=== PATIENT | female | born 1990 | race Hispanic/Latino ===

== ENCOUNTER 2019-09-09 12:46 | Emergency (ER) | payer SELFPAY ==
[2019-09-09 13:09] VITALS: BP 144/83; PULSE 97; RESP 16; TEMP 36.6; O2SAT 100
--- NOTE | 2019-09-09 13:25 | ED.GENADULT ---
HPI - General Adult General Chief complaint: Allergic Reaction Stated complaint: allegic reaction Time Seen by Provider: 09/09/19 13:25 Source: patient Mode of arrival: ambulatory Limitations: no limitations History of Present Illness HPI narrative: 28-year-old female patient presents to the psychiatric with complaints of what she thinks is an allergic reaction. Patient states that about an hour prior to arrival she took her medicine that included metformin and lisinopril and ate some lunch. Patient states that she ate the same ones that she had yesterday as well. Patient states that shortly afterwards she started feeling really high and feeling like she was itchy all over and she feels like her face including her lips were starting to swell. Patient states that she did take 50 mg of Benadryl prior to arrival. Patient denies any chest pain or shortness of breath. Patient denies any trouble swallowing. Patient states she does feel like the swelling has gone down since taking the Benadryl. Related Data Home Medications Medication Instructions Recorded Confirmed lisinopril 5 mg PO DAILY 09/09/19 09/09/19 metformin 500 mg PO BID 09/09/19 09/09/19 Allergies Allergy/AdvReac Type Severity Reaction Status Date / Time lisinopril Allergy Swelling Verified 09/09/19 13:39 shellfish derived Allergy Rash Verified 09/09/19 13:20 Review of Systems Review of Systems: Narrative: CONSTITUTIONAL: Denies fever, chills, or sweats. EYES: Denies visual changes, redness, or discharge. ENT: Denies rhinorrhea, congestion, sore throat, or otalgia. Positive facial swelling and lip swelling CARDIOVASCULAR: Denies chest pain, palpitations, or edema. RESPIRATORY: Denies cough or dyspnea. GASTROINTESTINAL: Denies abdominal pain, nausea, vomiting, or diarrhea. GENITOURINARY: Denies dysuria or hematuria. SKIN: Positive rash with itching. MUSCULOSKELETAL: Denies back pain, joint pain, or myalgia. NEUROLOGIC: Denies headache, numbness, or weakness. PSYCHIATRIC: Denies anxiety or depression. [facility] Social History Social History Smoking status: Never smoker Alcohol intake: never Gender identity (if verbalized by the patient): Female Comments At the time of my signature I agree with nursing past medical history, surgical, social, and family history. There is no relevant family history pertinent to the presenting complaint. Exam Narrative: Exam Narrative: GENERAL: Well-appearing, well-nourished, and in no acute distress. HEAD: Normocephalic, atraumatic. EYES: PERRLA and EOMI. ENT: Nares clear, no rhinorrhea or epistaxis. Mucous membranes moist. Posterior pharynx with no erythema, tonsillar edema, exudates or lesions present. Slight swelling noted under bilateral eyes and cheeks. Patient states that she does feel like her lips are swollen unable to tell due to the fact that not exactly sure what she would like before but is no obvious swelling. NECK: Supple. No lymphadenopathy CHEST: Clear to auscultation. No respiratory distress. Patient able talk in clear complete sentences. No tripoding noted. HEART: Regular rate and rhythm. No murmur heard. Normal peripheral pulses. ABDOMEN: Soft, nontender, nondistended, normal active bowel sounds. EXTREMITIES: Normal range of motion. No edema. SKIN: Warm, dry, no obvious rash noted to bilateral arms at this time NEURO: No focal deficits. Alert and oriented x3. Course Vital Signs Vital signs: Vital Signs Temperature 36.6 C 09/09/19 13:09 Pulse Rate 97 09/09/19 13:09 Respiratory Rate 16 09/09/19 13:09 Blood Pressure 144/83 H 09/09/19 13:09 Pulse Oximetry 100 09/09/19 13:09 Temperature 36.6 C 09/09/19 13:09 Pulse Rate 97 09/09/19 13:09 Respiratory Rate 16 09/09/19 13:09 Blood Pressure 144/83 H 09/09/19 13:09 Pulse Oximetry 100 09/09/19 13:09 Vital signs reviewed. The patient has been informed that they may h
== END 2019-09-09 13:35 | disposition home or self-care (01) ==
PROVIDERS: Emergency Provider Nurse Practitioner Family; PCP Registered Nurse
DX: T78.3XXA Angioneurotic edema, initial encounter (principal); I10 Essential (primary) hypertension; E11.9 Type 2 diabetes mellitus without complications; Z79.84 Long term (current) use of oral hypoglycemic drugs
CPT/HCPCS: 99213; G0463

== ENCOUNTER 2019-11-06 11:38 | Emergency (ER) | payer BC, SELFPAY ==
--- NOTE | ~2019-11-06 | US_ITS ---
EXAMINATION: US OB <=14 wk fetus w TV DATE: 11/06/2019 14:38 INDICATION: Vaginal bleeding. . TECHNIQUE: Real-time transabdominal and transvaginal pelvic ultrasound was performed. COMPARISON: None. FINDINGS: TRANSABDOMINAL ULTRASOUND: The uterus measures 7.8 x 5.4 x 6.6 cm. TRANSVAGINAL ULTRASOUND: There is an intrauterine gestational sac. A yolk sac is identified. The fet al crown rump length measures 1.1 cm, which correlates with an estimated gestational age of 7 weeks a nd 1 day(s) (+/-) 5 day(s). heart motion is identified measuring 149 beats per minute (bpm) by M-mode Doppler. The right ovary measures 2.8 x 2.4 x 2.5 cm. The left ovary measures 3.7 x 2.1 x 3.7 cm. There is no free fluid in the pelvis. IMPRESSION: 1. Single living intrauterine gestation with estimated date of delivery of 06/23/2020. Reviewed, dictated and finalized at location A. IMPRESSION: 1. Single living intrauterine gestation with estimated date of delivery of 06/23.
[2019-11-06 11:54] VITALS: BP 152/103; PULSE 98; RESP 20; TEMP 37; O2SAT 99
[2019-11-06 12:08] LABS: Basophils Percent Auto 0.2 % (0.2-1.2); Eosinophils Absolute Auto 0.1 K/mm3 (0-0.3); Eosinophils Percent Auto 1.1 % (0-4.4); Hematocrit 38.6 % (37.0-47.0); Hemoglobin 12.9 g/dL (12.0-15.0); Immature Granulocyte Absolute 0.05 K/mm3 (0.00-0.031); Immature Granulocyte Percent A 0.4 % (0-0.5); Lymphocytes Absolute Auto 3.54 K/mm3 (0.9-3.2); Lymphocytes Percent Auto 31.1 % (18.3-44.2); Mean Corpuscular HGB Conc 33.4 g/dl (32-36); Mean Corpuscular Hemoglobin 28.2 pg (26-34); Mean Corpuscular Volume 84.5 fl (80-100); Mean Platelet Volume 10.3 fl (7.4-10.4); Monocytes Absolute Auto 0.7 K/mm3 (0.1-0.6); Neutrophils Percent Auto 61.2 % (45.5-73.1); Platelet Count Result 376 k/mm3 (150-375); Red Blood Count 4.57 M/mm3 (4.2-5.4); Red Cell Distribution Width 13.4 % (11.5-14.5); White Blood Count 11.4 K/mm3 (4.5-10.0)
[2019-11-06 13:32] VITALS: BP 116/74; PULSE 71; RESP 18; O2SAT 100
[2019-11-06 13:55] LABS: Add Urine Microscopic? YES; Appearance Urine Clear (Clear); Bilirubin Urine Negative (Negative); Blood Urine Negative (Negative); Color Urine Yellow (Yellow); Glucose Urine UA Negative (Negative); Ketones Urine Trace mg/dL (Negative); Leukocyte Esterase Ur Negative LEU/UL (Negative); Mucus Urine Few /lpf; Nitrate Urine Negative (Negative); Protein Urine Negative (Negative); Squamous Epithelial Cell Urine Many /hpf (Few); Urobilinogen Urine Negative mg/dL (<2.0); WBC Urine 0-3 /hpf
--- NOTE | 2019-11-06 14:11 | ED.FEMALEGU ---
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 Patient complaining of soreness across lower abdomen for 10 days. Patient found out that she is 5 days ago. 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 Patient denies any nausea, vomiting, fever, chills, coughing, back pain or urinary symptoms. Patient is 1, para 0, 0. <Vasyl Morris MD - Last Filed: 11/06/19 16:18> Related Data Home medications: Home Medications Medication Instructions Recorded Confirmed metformin 2,000 mg PO DAILY 09/09/19 09/09/19 <Vasyl Morris MD - Last Filed: 11/06/19 16:18> Allergies/Adverse reactions: Allergies Allergy/AdvReac Type Severity Reaction Status Date / Time lisinopril Allergy Swelling Verified 11/06/19 11:56 shellfish derived Allergy Rash Verified 11/06/19 11:56 <Vasyl Morris MD - Last Filed: 11/06/19 16:18> Review of Systems Review of Systems: Narrative: CONSTITUTIONAL: Denies fever, chills, or sweats. EYES: Denies visual changes, redness, or discharge. ENT: Denies rhinorrhea, congestion, sore throat, or otalgia. CARDIOVASCULAR: Denies chest pain, palpitations, or edema. RESPIRATORY: Denies cough or dyspnea. GASTROINTESTINAL: Denies abdominal pain, nausea, vomiting, or diarrhea. GENITOURINARY: Denies dysuria or hematuria. SKIN: Denies rash or itching. MUSCULOSKELETAL: Denies back pain, joint pain, or myalgia. NEUROLOGIC: Denies headache, numbness, or weakness. PSYCHIATRIC: Denies anxiety or depression. <Vasyl Morris MD - Last Filed: 11/06/19 16:18> PMFSH Social History Social History: Social History Smoking status: Never smoker Alcohol intake: never Gender identity (if verbalized by the patient): Female <Vasyl Morris MD - Last Filed: 11/06/19 16:18> Exam Narrative: Exam Narrative: General appearance: Well-developed, well-nourished Skin: Normal color Head: Normocephalic, nontraumatic Eyes: Clear conjunctiva ENT: Oropharynx normal, ears normal, nose normal Neck: Supple, nontender Chest and respiratory: Airway patent, no respiratory distress, no accessory muscle use Heart: Regular rate/rhythm Abdomen: Soft, nontender, no organomegaly, quiet bowel sounds Vascular: Normal peripheral pulses, normal capillary refill. Musculoskeletal: Normal range of motion, nontender back Neurologic: Alert and oriented ?3, OPERATIONS TEAM LEADER is normal as tested, no gross motor deficit <Vasyl Morris MD - Last Filed: 11/06/19 16:18> Exam Narrative: PELVIC: Normal external genitalia. Normal-appearing cervix. Scant amount of white cervical discharge. No blood noted in the vaginal vault <Rolanda Campbell PA-C - Last Filed: 11/06/19 16:19> Course Course Emergency Course: Stable <Vasyl Morris MD - Last Filed: 11/06/19 16:18> Vital Signs Vital signs: Vital Signs Temperature 98.6 F 11/06/19 11:54 Pulse Rate 98 11/06/19 11:54 Respiratory Rate 11/06/19 11:54 Blood Pressure 152/103 H 11/06/19 11:54 Pulse Oximetry 99 11/06/19 11:54 Temperature 98.6 F 11/06/19 11:54 Pulse Rate 71 11/06/19 13:32 Respiratory Rate 18 11/06/19 13:32 Blood Pressure 116/74
[2019-11-06 16:35] VITALS: BP 112/80; PULSE 76; RESP 18; O2SAT 100
== END 2019-11-06 16:37 | disposition home or self-care (01) ==
PROVIDERS: General Practice; Physician Assistant; Emergency Provider Emergency Medicine; PCP Registered Nurse
DX: O20.0 Threatened abortion (principal); Z3A.01 Less than 8 weeks gestation of pregnancy
CPT/HCPCS: 36415; 76801; 76817; 81001; 84702; 85025; 85461; 99284

== ENCOUNTER 2020-04-30 18:46 | Outpatient (CLI) | payer BC, SELFPAY ==
[2020-04-30] VITALS (7 sets, daily range): BP systolic 107–126; BP diastolic 55–87; PULSE 87–104; BMI 44.6
[2020-04-30] MEDS: ACETAMINOPHEN 500 MG TABLET 1000 MG PO (19:52)
[2020-04-30 19:59] LABS: Basophils Percent Auto 0.2 % (0.2-1.2); Eosinophils Absolute Auto 0.1 K/mm3 (0-0.3); Eosinophils Percent Auto 0.6 % (0-4.4); Hematocrit 35.7 % (37.0-47.0); Hemoglobin 11.7 g/dL (12.0-15.0); Immature Granulocyte Absolute 0.08 K/mm3 (0.00-0.031); Immature Granulocyte Percent A 0.7 % (0-0.5); Lymphocytes Absolute Auto 3.11 K/mm3 (0.9-3.2); Lymphocytes Percent Auto 26.7 % (18.3-44.2); Mean Corpuscular HGB Conc 32.8 g/dl (32-36); Mean Corpuscular Hemoglobin 27.1 pg (26-34); Mean Corpuscular Volume 82.8 fl (80-100); Mean Platelet Volume 10.6 fl (7.4-10.4); Monocytes Absolute Auto 0.5 K/mm3 (0.1-0.6); Monocytes Percent Auto 4.6 % (2.6-8.5); Neutrophils Absolute Auto 7.8 K/mm3 (1.3-6.7); Neutrophils Percent Auto 67.2 % (45.5-73.1); Platelet Count Result 348 k/mm3 (150-375); Red Blood Count 4.31 M/mm3 (4.2-5.4); White Blood Count 11.7 K/mm3 (4.5-10.0)
[2020-04-30 20:07] LABS: Total Protein Urine Random 15 mg/dL; Ur Ttl Prot Creatinine Ratio 0.18 mg/mg (0-0.20)
[2020-04-30 20:10] LABS: Alanine Aminotransferase 35 U/L (4-35); Albumin Level 3.5 g/dL (3.5-5.1); Alkaline Phosphatase 95 U/L (38-126); Anion Gap 8 mmol/L (8-16); Aspartate Amino Transferase 25 U/L (14-36); Bilirubin,Total 0.3 mg/dL (0.2-1.3); Blood Urea Nitrogen 13 mg/dL (7-17); Calcium 8.8 mg/dL (8.4-10.2); Carbon Dioxide 21 mmol/L (22-30); Chloride 106 mmol/L (98-107); Estimated Glomerular Filt Rate > 60; Glucose 131 mg/dL (65-105); Potassium 3.7 mmol/L (3.4-5.0); Sodium 135 mmol/L (137-145); Uric Acid 4.2 mg/dL (2.5-7.5)
[2020-04-30 20:13] LABS: Add Urine Microscopic? YES; Appearance Urine Clear (Clear); Bacteria Urine Trace /hpf; Bilirubin Urine Negative (Negative); Blood Urine Negative (Negative); Color Urine Yellow (Yellow); Glucose Urine UA Negative (Negative); Ketones Urine Negative (Negative); Leukocyte Esterase Ur Negative LEU/UL (NEGATIVE); Mucus Urine Rare /lpf; Nitrate Urine Negative (Negative); Protein Urine 1+ mg/dL (Negative); Specific Grav Ur 1.024 (1.001-1.035); Squamous Epithelial Cell Urine Moderate /hpf (Few); Urobilinogen Urine Negative mg/dL (<2.0); WBC Urine 0-3 /hpf (0-3)
== END 2020-04-30 20:50 | disposition home or self-care (01) ==
LOC: ANHOBPP 20:16 → ANHOBOP 05-01 10:17 → ANHOBPP 05-01 10:17
PROVIDERS: Advanced Practice Midwife; PCP Registered Nurse; Visit Provider Obstetrics & Gynecology
DX: R51.9 Headache, unspecified (principal); Z51.81 Encounter for therapeutic drug level monitoring; Z79.899 Other long term (current) drug therapy
CPT/HCPCS: 36415; 80053; 81001; 82570; 84156; 84550; 85025; 87086; 87088; 99199; A9270

== ENCOUNTER 2020-05-21 13:42 | Outpatient (RCR) | payer BC, SELFPAY ==
--- NOTE | ~2020-05-21 | US_ITS ---
EXAMINATION: US OB BPP wo non-stress DATE: 05/16/2020 15:39 INDICATION: Nonreactive nonstress test in office evaluation during third trimester of . TECHNIQUE: Real-time pelvic ultrasound was performed. The interpreting radiologist was not present fo r the study. COMPARISON: 11/06/2019 FINDINGS: There is a single living fetus in vertex presentation. The placenta is fundal. heart rate is 1 38 beats per minute (bpm). Biophysical profile performed by the technologist: breathing (30 sec sustained breathing in 30 minutes): 2 out of 2 movement (3 gross body movements in 30 minutes): 2 out of 2 tone (one episode of ypcjwei-yrsvudphh-vklhuwi limb movement): 2 out of 2 Amniotic fluid pocket (2 cm): 2 out of 2 Total score: 8 out of 8 IMPRESSION: 1. Single living fetus in vertex presentation with heart rate of 138 bpm. 2. Biophysical profile 8 out of 8. Reviewed, dictated and finalized at location B. NG MECHANIC
[2020-05-21 14:24] VITALS: BP 118/75; PULSE 84
== END 2020-05-25 07:43 | disposition home or self-care (01) ==
LOC: ANHOBOP 13:42
PROVIDERS: PCP Registered Nurse; Visit Provider Obstetrics & Gynecology
DX: O36.8130 Decreased fetal movements, third trimester, not applicable or unspecified (principal); Z3A.35 35 weeks gestation of pregnancy; Z3A.36 36 weeks gestation of pregnancy
CPT/HCPCS: 59025; 76819

== ENCOUNTER 2020-05-22 12:39 | Observation (INO) | payer BC, SELFPAY ==
--- NOTE | ~2020-05-22 | US_ITS ---
EXAMINATION: US OB BPP wo non-stress EXAM DATE: 05/22/2020 16:03 INDICATION: Decelerations in doctor's office. 3rd trimester. TECHNIQUE: Pelvic obstetrical transabdominal sonogram was performed by a technologist. There are mu ltiple grayscale and Doppler images available for interpretation. Comparison is made to prior examina tion from 05/16/2020. FINDINGS: There is a single fetus identified in vertex presentation with a heart rate of 139 beats pe r minute. The placenta is located in the fundal position. There is no sonographic evidence of retrop lacental hemorrhage identified. There is subjectively expected amount of amniotic fluid. BIOPHYSICAL PROFILE (performed by the technologist) breathing (30 sec sustained breathing in 30 minutes): 2 out of 2 movement (3 gross body movements in 30 minutes): 2 out of 2 tone (one episode of wucwxlo-cenmzgqcc-mbvvppx limb movement): 2 out of 2 Amniotic fluid pocket (2 cm): 2 out of 2 Total score: 8 out of 8 Incidental note made of mildly dilated bilateral renal pelvi, at 4 and 6 mm. IMPRESSION: 1. Single fetus with heart rate of 139 bpm. 2. Normal biophysical profile score of 8 out of 8. 3. Mild bilateral renal pelvi dilation. Reviewed, dictated and finalized at location B. BIT DISPLAY REPRESENTATIVE
--- NOTE | 2020-05-22 12:57 | OBADM ---
This patient, Yasmeen Ny, admitted to the OB room OB Post 115 for observation. Patient/family oriented to hospital policies and general routines including ID bracelet, bed and alarms, visiting hours, pain management, procedures, bathroom and other care routines, personal items, smoking policy, room service/diet, and visiting hours. Patient/Family are encouraged to report perceived risks to care and to ask questions if they do not understand what they are told or what they should do.
[2020-05-22 13:02] VITALS: BP 120/64; PULSE 90
[2020-05-22 13:09] VITALS: BMI 46.5
--- NOTE | 2020-05-22 13:59 | PC.NURSE ---
1353- Spoke with Dr. Deninson, patient requesting to eat. Ok with Dr. Dennison for patient to eat lunch now. Will continue to monitor for 2 more hours and then send patient for BPP. Dr. Dennison will be in to see patient later this afternoon.
--- NOTE | 2020-05-22 16:43 | P.HP_ITS ---
Obstetrics - Admit Note Admission Note: record reviewed. No pertinent additions to the history and/or any subsequent changes in the physical findings that are not consistent with the expected course of the were found. Additions to the history and/or subsequent changes in the physical findings follow. G1 with DM2 at 35.6 admitted for extended monitoring after two small decels in the office and a BPP 09/25. Here for several hours now, NST 130 mod with many accels, no decels. Repeat BPP 11/25. ASpoke with MFM earlier today. SInce all monitoring now perfect and still , home with strict precautions. Pt has follow up with MFM at [facility] tomorrow and will do kick counts at least 2x/day and return for ANY decreased movement.
== END 2020-05-22 16:50 | disposition home or self-care (01) ==
PROVIDERS: Admitting Provider Obstetrics & Gynecology; PCP Registered Nurse; Visit Provider Obstetrics & Gynecology
DX: O36.8330 Maternal care for abnormalities of the fetal heart rate or rhythm, third trimester, not applicable or unspecified (principal); O24.913 Unspecified diabetes mellitus in pregnancy, third trimester; Z3A.35 35 weeks gestation of pregnancy
CPT/HCPCS: 76819; G0378; G0379

== ENCOUNTER 2020-05-23 12:40 | Inpatient (IN) | payer BC, SELFPAY ==
[2020-05-23] VITALS (14 sets, daily range): BP systolic 97–133; BP diastolic 31–78; PULSE 86–96; TEMP 36.4–36.9; BMI 47.2
[2020-05-23 13:37] LABS: Glucose Point of Care 101 (65-105)
[2020-05-23 13:42] LABS: Basophils Percent Auto 0.2 % (0.2-1.2); Eosinophils Absolute Auto 0.1 K/mm3 (0-0.3); Eosinophils Percent Auto 0.5 % (0-4.4); Hematocrit 36.7 % (37.0-47.0); Immature Granulocyte Absolute 0.06 K/mm3 (0.00-0.031); Immature Granulocyte Percent A 0.5 % (0-0.5); Lymphocytes Percent Auto 25.6 % (18.3-44.2); Mean Corpuscular HGB Conc 32.7 g/dl (32-36); Mean Corpuscular Hemoglobin 27.1 pg (26-34); Mean Platelet Volume 10.4 fl (7.4-10.4); Monocytes Absolute Auto 0.6 K/mm3 (0.1-0.6); Monocytes Percent Auto 5.2 % (2.6-8.5); Neutrophils Absolute Auto 7.7 K/mm3 (1.3-6.7); Platelet Count Result 347 k/mm3 (150-375); Red Blood Count 4.42 M/mm3 (4.2-5.4); Red Cell Distribution Width 14.6 % (11.5-14.5); White Blood Count 11.3 K/mm3 (4.5-10.0)
[2020-05-23] MEDS: DINOPROSTONE 10 MG VAG INSERT VAGINAL (13:44)
--- NOTE | 2020-05-23 13:57 | LDADM ---
This patient, Yasmeen Ny, was admitted to Labor/Delivery/Recovery 108 on 05/23/20 at 12:40. Plans for labor, pain management and were discussed with patient. Patient/family oriented to hospital policies and general routines including ID bracelet, bed and alarms, visiting hours, pain management, procedures, bathroom and other care routines, personal items, smoking policy, room service/diet and guest tray routines, security routines, and visiting hours. Patient/Family are encouraged to report perceived risks to care and to ask questions if they do not understand what they are told or what they should do. See OBIX for further documentation.
[2020-05-23] MEDS: AMPICILLIN 2 GM/NS 100 ML 2 GM/100 ML BAG IVPB (14:17)
[2020-05-23] MEDS: LACTATED RINGERS 1,000 ML 125 ML IV CONT (14:17)
[2020-05-23 17:21] LABS: Amphetamine Screen Urine Negative (Negative); Barbiturate Screen Urine Negative (Negative); Benzodiazepines Screen Urine Negative (Negative); Cannabinoid Screen Urine Negative (Negative); Cocaine Screen Urine Negative (Negative); Methadone Screen Urine Negative (Negative); Opiate Screen Urine Negative (Negative); Phencyclidine Screen Urine Negative (Negative)
[2020-05-23 17:49] LABS: Glucose Point of Care 142 (65-105)
--- NOTE | 2020-05-23 18:18 | PM.IMHP ---
H&P: HPI History of Present Illness Date/Time: 05/23/20 18:18 Chief Complaint: MIL Narrative: Yasmeen Ny is a 29 year old female at 36 weeks gestation, complicated by uncontrolled type 2 diabetes, Seeing [facility] regularly. had had episodes of non reactive NST and variable decelerations. Dr. Dennison spoke to [facility] today who rec delivery today. last growth us on 04/16/2020 efw HC 87%, AC 95%,GbS not back from lab, will tx with antibiotics. Cervadil placed by solder technician of Systems Review of Systems: All systems reviewed & are unremarkable except as noted in HPI and below PMFSH Family History Family History (Updated 05/18/20 @ 13:02 by Harry Patiño RN) Father High cholesterol Social History Social History Smoking status: Never smoker Alcohol intake: never Substance use: never Gender identity (if verbalized by the patient): Female Spiritual care concerns: No Meds Home Medications and Allergies Home Medications Medication Instructions Recorded Confirmed Type Humulin N NPH U-100 Insulin See Rx Instructions .ROUTE .COMPLEX 04/30/20 05/23/20 History insulin lispro See Rx Instructions .ROUTE .COMPLEX 04/30/20 05/23/20 History PNV cmb#95-ferrous fumarate-FA 1 tablet PO DAILY 05/18/20 05/23/20 History [] aspirin 81 mg PO DAILY 05/18/20 05/23/20 History Allergies Allergy/AdvReac Type Severity Reaction Status Date / Time lisinopril Allergy Swelling Verified 11/06/19 11:56 shellfish derived Allergy Rash Verified 11/06/19 11:56 Vital Signs Vital Signs - 24 hr 05/23/20 13:45 05/23/20 14:10 05/23/20 14:15 Temperature 36.7 C Pulse Rate 96 89 Blood Pressure 120/66 105/49 L 05/23/20 15:00 05/23/20 15:44 05/23/20 16:00 Temperature 36.9 C Pulse Rate 96 94 Blood Pressure 99/54 L 100/49 L 05/23/20 17:00 05/23/20 18:01 Temperature Pulse Rate 86 95 Blood Pressure 128/66 128/77 Exam Const: General: cooperative Nutritional Appearance: well nourished HENMT: Head: normal to inspection Resp: Effort & Inspection: normal respiratory effort Auscultation: clear to auscultation bilaterally GI: Inspection: normal to inspection : External Female Exam: normal external appearance Back/Spine/Pelvis: Back: no CVA tenderness Skin: General skin exam: normal color Neuro: General: oriented to person and patient oriented x3 Psych: Thought content: Yes Normal thought content present Insight: Good insight present (Psych) Judgement: Good judgement present (Psych) H&P: Results Labs Labs: Short CBC 05/23/20 Range/Units 13:31 WBC 11.3 H (4.5-10.0) K/mm3 Hgb 12.0 (12.0-15.0) g/dL Hct 36.7 L (37.0-47.0) % Plt Count 347 (150-375) k/mm3 Assessment and Plan Assessment and plan (1) Type 2 diabetes mellitus affecting in third trimester, antepartum: Code(s): O24.113 - Pre-existing type 2 diabetes mellitus, in , third trimester Status: Acute Additional Plan 1. 2.MIL for uncontrolled type 2 diabtes anticipate vaginal delivery
[2020-05-23] MEDS: AMPICILLIN 1 GM/NS 50 ML 1 GM/50 ML BAG IVPB ×2 (19:02→22:57)
[2020-05-23 20:49] LABS: Glucose Point of Care 96 (65-105)
[2020-05-23] MEDS: INSULIN HUMAN NPH (*BKC) 100 UNITS/ML 88 UNITS SUB-Q (21:23)
[2020-05-24] VITALS (266 sets, daily range): BP systolic 88–160; BP diastolic 41–116; PULSE 63–104; TEMP 36.4–37.4; O2SAT 95–100
[2020-05-24] MEDS: fentaNYL CITRATE INJ (*CRX) 100 MCG/2 ML VIAL 50 MCG IV PUSH ×2 (00:17→04:00)
[2020-05-24 02:10] LABS: Glucose Point of Care 87 (65-105)
[2020-05-24] MEDS: AMPICILLIN 1 GM/NS 50 ML 1 GM/50 ML BAG IVPB ×6 (02:58→22:39)
[2020-05-24 04:08] LABS: Glucose Point of Care 142 (65-105)
[2020-05-24] MEDS: OXYTOCIN 30 UNITS/NS 500 ML 30 UNITS/500 ML BAG 6 UNITS IV CONT (04:20)
[2020-05-24] MEDS: fentaNYL CITRATE INJ (*CRX) 100 MCG/2 ML VIAL IV PUSH ×3 (05:29→09:02)
[2020-05-24] MEDS: LACTATED RINGERS 1,000 ML 125 ML IV CONT ×3 (05:29→21:35)
[2020-05-24 05:59] LABS: Glucose Point of Care 87 (65-105)
--- NOTE | 2020-05-24 08:19 | PM.OBPNLAB ---
Pain Control Date/time seen: 05/24/20 08:19 Pt feeling contractions Contractions irregular FHR category 1 Cervix 2 internal 3 external/50%/-2 AROM small amount of clear odorless fluid Epidural when desired Anticipate
[2020-05-24] MEDS: LACTATED RINGERS 1,000 ML 999 ML IV CONT ×2 (09:04→10:08)
[2020-05-24 09:11] LABS: Glucose Point of Care 91 (65-105)
--- NOTE | 2020-05-24 09:48 | WPDANESEPP ---
Anes - Eval Pre Procedure Procedure: labor epidural Date/Time: 05/24/20 09:48 Surgeon: Fay Preop Diagnosis: pain during labor Pre Op Diagnosis: Induction of Labor Patient Data Age: 29 Gender: F Height: 5 ft 4 in Weight: 125 kg Last Vital Signs Temp 36.4 C 05/24/20 08:17 Pulse 85 05/24/20 09:45 BP 129/61 05/24/20 09:45 Pulse Ox 99 05/24/20 09:45 Allergies Allergy/AdvReac Type Severity Reaction Status Date / Time lisinopril Allergy Swelling Verified 11/06/19 11:56 shellfish derived Allergy Rash Verified 11/06/19 11:56 Home Medications Medication Instructions Recorded Confirmed Type Humulin N NPH U-100 Insulin See Rx Instructions .ROUTE .COMPLEX 04/30/20 05/23/20 History insulin lispro See Rx Instructions .ROUTE .COMPLEX 04/30/20 05/23/20 History PNV cmb#95-ferrous fumarate-FA 1 tablet PO DAILY 05/18/20 05/23/20 History [] aspirin 81 mg PO DAILY 05/18/20 05/23/20 History Laboratory Tests 05/23/20 05/23/20 05/23/20 13:31 13:31 13:31 WBC 11.3 K/mm3 H K/mm3 (4.5-10.0) RBC 4.42 M/mm3 M/mm3 (4.2-5.4) Hgb 12.0 g/dL g/dL (12.0-15.0) Hct 36.7 % L % (37.0-47.0) MCV 83.0 fl fl (80-100) MCH 27.1 pg pg (26-34) MCHC 32.7 g/dl g/dl (32-36) RDW 14.6 % H % (11.5-14.5) Plt Count 347 k/mm3 k/mm3 (150-375) MPV 10.4 fl fl (7.4-10.4) Immature Gran % (Auto) 0.5 % % (0-0.5) Neut % (Auto) 68.0 % % (45.5-73.1) Lymph % (Auto) 25.6 % % (18.3-44.2) Kane % (Auto) 5.2 % % (2.6-8.5) Eos % (Auto) 0.5 % % (0-4.4) Baso % (Auto) 0.2 % % (0.2-1.2) Lymph # (Auto) 2.90 K/mm3 K/mm3 (0.9-3.2) Kane # (Auto) 0.6 K/mm3 K/mm3 (0.1-0.6) Eos # (Auto) 0.1 K/mm3 K/mm3 (0-0.3) Baso # (Auto) 0.0 K/mm3 K/mm3 (0.0-0.1) Abs Immat Gran (auto) 0.06 K/mm3 H K/mm3 (0.00-0.031) Absolute Neuts (auto) 7.7 K/mm3 H K/mm3 (1.3-6.7) Absolute Nucleated RBC 0.0 K/mm3 K/mm3 (0.0-0.012) Nucleated RBC % 0.0 % % (0.0-0.2) POC Capillary Glucose Urine Opiates Screen Urine Methadone Screen Ur Barbiturates Screen Ur Phencyclidine Scrn Ur Amphetamine Screen U Benzodiazepines Scrn Urine Cocaine Screen U Cannabinoids Screen RPR Pending Blood Type A Positive Antibody Screen Negative 05/23/20 05/23/20 05/23/20 13:34 16:58 17:46 WBC RBC Hgb Hct MCV MCH MCHC RDW Plt Count MPV Immature Gran % (Auto) Neut % (Auto) Lymph % (Auto) Kane % (Auto) Eos % (Auto) Baso % (Auto) Lymph # (Auto) Kane # (Auto) Eos # (Auto) Baso # (Auto) Abs Immat Gran (auto) Absolute Neuts (auto) Absolute Nucleated RBC Nucleated RBC % POC Capillary Glucose 101 mg/dl mg/dl 142 mg/dl H mg/dl (65-105) (65-105) Urine Opiates Screen Negative (Negative) Urine Methadone Screen Negative (Negative) Ur Barbiturates Screen Negative (Negative) Ur Phencyclidine Scrn Negative (Negative) Ur Amphetamine Screen Negative (Negative) U Benzodiazepines Scrn Negative (Negative) Urine Cocaine Screen Negative (Negative) U Cannabinoids Screen Negative (Negative) RPR Blood Type Antibody Screen 05/23/20 05/24/20 05/24/20 20:42 02:04 04:05 WBC RBC Hgb Hct MCV MCH
[2020-05-24 10:09] LABS: Rapid Plasma Reagin Non-Reactive (NonReactive)
[2020-05-24 10:13] LABS: Glucose Point of Care 94 (65-105)
[2020-05-24 13:31] LABS: Glucose Point of Care 73 (65-105)
[2020-05-24 16:09] LABS: Glucose Point of Care 72 (65-105)
[2020-05-24] MEDS: ONDANSETRON INJ 4 MG/2 ML VIAL IV PUSH (17:58)
[2020-05-24 18:04] LABS: Glucose Point of Care 78 (65-105)
[2020-05-24 20:22] LABS: Glucose Point of Care 79 (65-105)
[2020-05-24 22:30] LABS: Glucose Point of Care 82 (65-105)
[2020-05-25] VITALS (74 sets, daily range): BP systolic 102–134; BP diastolic 54–92; PULSE 66–125; RESP 16–18; TEMP 36.6–37.3; O2SAT 96–100
[2020-05-25 00:19] LABS: Glucose Point of Care 76 (65-105)
[2020-05-25 02:16] LABS: Glucose Point of Care 78 (65-105)
--- NOTE | 2020-05-25 02:50 | PM.OBPRVD ---
OB - Delivery Note Procedure Delivery date: 05/25/20 Procedure: events: Gestational Diabetes and Labor Induction Intrapartal events: None Induction method: AROM and per pitocin protocol Delivery monitor: external FHT and internal uterine Route of delivery: Episiotomy description: None Laceration Description: Perineal - 2nd Degree Delivery repair: vicryl Specimen: Yes Quantitative Blood Loss (ml): 350 Anesthesia type: Epidural Disposition: floor [place] Baby Date of : 05/25/20 Time of : 02:36 Weeks of gestation at delivery: 36 gender: Male Weight (pounds): 7 presentation: vertex position: Left Occiput Anterior score one minute: 8 score five minutes: 9
[2020-05-25] MEDS: OXYTOCIN 30 UNITS/NS 500 ML 30 UNITS/500 ML BAG 125 UNITS IV CONT (02:55)
[2020-05-25] MEDS: IBUPROFEN 600 MG TABLET PO ×4 (04:16→23:20)
[2020-05-25] MEDS: WITCH HAZEL 40 PADS 1 PAD TOPICAL (04:55)
[2020-05-25] MEDS: BENZOCAINE 20% AER SPR (*SP) 56 GM CAN 1 SPRAY TOPICAL (04:55)
--- NOTE | 2020-05-25 05:52 | OBPPTRN ---
Patient transferred to post room # 278 via wheelchair. Support person present. Oriented to unit, room, information board, rooming in, admission packet and security measures. Patient verbalizes understanding.
[2020-05-25] MEDS: ACETAMINOPHEN 325 MG TABLET 650 MG PO ×2 (09:00→17:45)
[2020-05-25] MEDS: MULTIVIT/MIN/PREN/FOL AC/IRON TABLET 1 TAB PO (09:00)
[2020-05-25 09:41] LABS: Glucose Point of Care 85 (65-105)
--- NOTE | 2020-05-25 10:37 | PC.NURSE ---
Addendum entered by Kayli Cervantes RN 05/25/20 14:39: Mother reports she has ordered her pump from her Insurance Co[employer] [facility], and it has been sent . She was advised she can rent a pump from the Station if necessary, when she and baby are discharged home, until what time she has her pump from her Insurance Co. Original Note: 1000 Breast feeding note; baby 36 weeks; two breast feeding attempts since ineffective. Worked with mother at 0915 feeding; baby made some attempt to latch, but could not latch and maintain for effective breast feeding. Started feeding plan of attempt breast feeding, bottle feeding at least 15cc-20cc, and mother will pump; set up with pump; mother comfortable with 24mm flanges; reviewed set up and use of initiation phase, pumping for 15 minutes; Reviewed care of equipment. Mother to call her Insurance company [employer], today to advise them she has delivered. Mother attentive to all instructions, and in agreement with the feeding plan. Encouraged to call out for assistance at feedings. she agreed, and voiced understanding.
[2020-05-25 12:21] LABS: Glucose Point of Care 192 (65-105)
[2020-05-25] MEDS: metFORMIN HCL 500 MG TABLET PO ×2 (13:19→21:00)
[2020-05-25 15:36] LABS: Glucose Point of Care 151 (65-105)
[2020-05-26] MEDS: ACETAMINOPHEN 325 MG TABLET 650 MG PO (03:25)
[2020-05-26 03:32] LABS: Hematocrit 30.1 % (37.0-47.0); Hemoglobin 9.8 g/dL (12.0-15.0)
[2020-05-26] MEDS: POLYSACCHARIDE IRON COMPLEX 150 MG CAPSULE PO (07:25)
[2020-05-26] MEDS: MULTIVIT/MIN/PREN/FOL AC/IRON TABLET 1 TAB PO (07:25)
[2020-05-26] MEDS: IBUPROFEN 600 MG TABLET PO (07:26)
[2020-05-26] MEDS: DOCUSATE SODIUM 100 MG CAPSULE PO (07:26)
[2020-05-26] MEDS: metFORMIN HCL 500 MG TABLET PO (07:26)
[2020-05-26 07:35] VITALS: BP 123/82; PULSE 76; RESP 18; TEMP 36.4; O2SAT 98
--- NOTE | 2020-05-26 08:19 | P.PNOB_ITS ---
OB - PN: Subj Subjective Date/time seen: 05/26/20 08:19 Patient comments: no complaints baby status: doing well OB - PN: Obj Data Labs CBC & Chem 7: 05/26/20 03:19 Labs: Laboratory Results - last 24 hr 05/25/20 05/25/20 05/25/20 09:34 12:18 15:31 Hgb Hct POC Capillary Glucose 85 192 H 151 H 05/26/20 03:19 Hgb 9.8 L Hct 30.1 L POC Capillary Glucose OB - PN A/P Plan day: 1 Plan: routine care Time Spent With Patient Time: Total time spent is greater than 50% in coordination of care (as documented) at patient's floor/unit and/or counseling patient: Time with patient: less than 15 minutes Review of Systems Review of Systems: All systems reviewed & are unremarkable except as noted in HPI and below Exam Narrative: Exam Narrative: Fundus firm and vaginal flow controlled. No lower ext redness, warmth, or edema. Negative homans. Const: General: comfortable Chest: Breast/axilla inspection: normal inspection of the breasts Resp: Effort & Inspection: normal respiratory effort Cardio: Rate: regular rate GI: GI Palp: Yes Soft to palpation Psych: Appearance: grossly normal Affect: normal affect Attitude: co operative Thought content: Yes Normal thought content present Judgement: Good judgement present (Psych)
--- NOTE | 2020-05-26 08:38 | WPDANLDPN2 ---
Anes-Prog Note L&D Date/Time: 05/26/20 08:38 Comfortable throughout: labor Neuraxial method: epidural Epidural/Spinal procedure site: clean & non-tender Neuro status: Neuro function grossly intact. Cardiovascular status: normal Respiratory status: normal Airway patency: baseline Mental status: baseline Post-Op hydration status: normal Vital Signs: Last Vital Signs Temp 36.7 C 05/25/20 19:37 Pulse 81 05/25/20 19:37 Resp 16 05/25/20 19:37 BP 108/78 05/25/20 19:37 Pulse Ox 100 05/25/20 08:40 Pain score (VAS): no complaints Post-procedural complaints: none Patient feedback: Patient satisfied with anesthetic care.
--- NOTE | 2020-05-26 15:58 | PC.NURSE ---
Fasting blood sugar this morning, 96 per pts. device. Blood sugar prior to lunch 101 per patients device.
[2020-05-28 10:28] VITALS: BP 139/77; PULSE 85; RESP 20; TEMP 36.4; O2SAT 100
--- NOTE | 2020-05-30 08:08 | PM.OBDSVD ---
DS: Admitting Diagnosis Admitting Diagnosis Admitting Diagnosis: Induction OB - DS: Summary OB Procedures : None OB Procedures Intrapartum: Spontaneous Vag Delivery OB Procedures: : None Time Spent with Patient Time attestation: Total time spent providing and/or coordinating discharge services: DS: Data Data Completed and Pending Completed studies during hospitalization: Pending at discharge 05/25/20 03:58 Surgical [PTH] Routine Discharge Plan Discharge Consulting providers: Franci Wyman ; Grazyna Rubin Discharging Clinician: Grazyna Rubin Patient Disposition: Home, Self-Care Activity: as tolerated Diet: regular Discharge Instructions: Education: Mom and Baby Guide Given to: Mother Follow-Up: Call your delivering provider's office for an appointment to be seen in: Primary care doctor (Omar) for an appointment in 1 week for diabetes assessment, 4Weeks for exam with Ethel Rubin CNM Mom and baby should come to the [facility] for the follow-up appointment. Appointment Date/Time: Thursday, May 28, 2020 at 10:00 am Wednesday, May 27, 2020 late morning/early afternoon for baby's jaundice test What to expect at your follow-up visit: Blood Pressure Check Physical Assessment Call [phone] if you are unable to keep your appointment time. BREAST CARE: * Wear a snug supportive bra. * For engorgement discomfort: Breast Feeding: * Apply warm moist washcloths * Express milk as needed to relieve engorgement * Wear loose clothing * For sore nipples: * Identify correct latch-on * Apply warm moist washcloths before and after nursing * Air dry nipples after nursing * May apply Lansinoh cream to nipples PERINEAL CARE: * Until bleeding stops, use your nahum bottle after urinating * Change your pad frequently throughout the day * You may take sitz baths several times a day (fill your bathtub with warm water and soak for 20 minutes.) Do NOT bathe in the water * No tub baths until seen by your physician - You may shower ACTIVITY: * Rest as much as possible. * Do not exercise or lift anything heavier than your baby (such as laundry or other children.) * Avoid stairs or driving as much as possible. * Do not put anything into the vagina. No douching, tampons, or sexual activity until seen by physician. NOTIFY PHYSICIAN IF YOU HAVE ANY QUESTIONS OR IF ANY OF THE FOLLOWING SYMPTOMS OCCUR: * If your vaginal area becomes red, swollen, or more painful than what you have experienced in the hospital. * If your vaginal bleeding becomes foul smelling. * If your vaginal bleeding becomes more heavy than a period or if your bleeding changes from pink to bright red. However, you may pass an occasional walnut-sized clot once or twice for the first week . * If you experience a sharp, shooting pain in your calves. * If you discover a hard, reddened area on your breast or if you experience flu-like symptoms. DIET: * Eat regular, well-balanced meals. * Drink plenty of fluids daily. If , drink to thirst. Stand Alone Forms: General Discharge Information Follow-up/Referrals: Omar,[facility]GR[facility] [Non-Staff] - 1 Week Discharge Medications: New ibuprofen 600 mg Tablet 600 mg PO Q6H PRN (Reason: Cramping) RF: 0 metformin 500 mg Tablet 500 mg PO BID Qty: 60 RF: 0 Continued aspirin 81 mg Tablet 81 mg PO DAILY RF: 0 PNV cmb#[id number]-ferrous fumarate-FA [] 28 mg iron- 800 mcg Tablet 1 tablet PO DAILY RF: 0 Discontinued Humulin N NPH U-100 Insulin 100 unit/mL suspension See Rx Instructions .ROUTE .COMPLEX RF: 0 insulin lispro 100 unit/mL insulin pen See Rx Instructions .ROUTE .COMPLEX RF: 0 Date of admission: 05/23/20 12:40 Primary Care Provider: Franci Wyman Admitting Provider: Barrett Aponte
== END 2020-05-26 18:10 | disposition home or self-care (01) | DRG 807 ==
LOC: ANHLDR 05-24 14:17 → ANHOB2 05-25 05:56
PROVIDERS: Admitting Provider Obstetrics & Gynecology; PCP Advanced Practice Midwife; Visit Provider Obstetrics & Gynecology
DX: O99.824 Streptococcus B carrier state complicating childbirth (principal); Z37.0 Single live birth; O70.1 Second degree perineal laceration during delivery; O24.12 Pre-existing type 2 diabetes mellitus, in childbirth; O99.214 Obesity complicating childbirth; E66.01 Morbid (severe) obesity due to excess calories; E11.65 Type 2 diabetes mellitus with hyperglycemia; Z3A.36 36 weeks gestation of pregnancy; Z79.4 Long term (current) use of insulin
CPT/HCPCS: 36415; 80307; 82948; 85014; 85018; 85025; 86592; 86850; 86900; 86901; 88307; A9270; J0290; J1815; J2405; J2590; J2795; J3010; J7120

== ENCOUNTER 2020-12-03 13:38 | Emergency (ER) | payer BC, OTHER, SELFPAY ==
[2020-12-03 13:49] VITALS: BP 134/77; PULSE 96; RESP 16; TEMP 36.5; O2SAT 100
--- NOTE | 2020-12-03 14:46 | ED.URI ---
HPI - URI/Sore Throat General Chief Complaint: Upper Respiratory Infection Stated Complaint: Cough Time Seen by Provider: 12/03/20 14:49 Source: patient and RN notes reviewed Mode of arrival: ambulatory Limitations: no limitations History of Present Illness HPI Narrative: 29-year-old female presents concern for 2-day history of cough, sinus congestion, body aches, ear pain, occasional vomiting related to coughing. She has not seen for Covid. Reports several people in her household have recently had a cough. Reports she has been taking gbcp-cvl-[id number] medication with little relief. She denies shortness of breath, fever. MD elicited complaint: cough Related Data Home Medications Medication Instructions Recorded Confirmed insulin NPH isoph U-100 human SUBCUT 12/03/20 [Humulin N NPH U-100 Insulin] insulin lispro [Humalog KwikPen See Rx Instructions .ROUTE .COMPLEX 12/03/20 12/03/20 Insulin] sertraline 50 mg PO DAILY 12/03/20 12/03/20 Allergies Allergy/AdvReac Type Severity Reaction Status Date / Time lisinopril Allergy Swelling Verified 12/03/20 14:02 shellfish derived Allergy Rash Verified 12/03/20 14:02 Review of Systems Review of Systems: CONSTITUTIONAL: Denies malaise, chills, sweats, or fever. EYES: Denies visual changes, redness, or discharge. ENT: Reports rhinorrhea, congestion, otalgia. Denies sinus pain, and sore throat. CARDIOVASCULAR: Denies chest pain, palpitations, or edema. RESPIRATORY: Reports cough. Denies dyspnea. GASTROINTESTINAL: Denies abdominal pain, nausea, vomiting, diarrhea SKIN: Denies rash or itching. MUSCULOSKELETAL: Reports myalgia. NEUROLOGIC: Denies headache. All systems reviewed & are unremarkable except as noted in HPI and below PMFSH Family History Family History Father High cholesterol Social History Social History Smoking status: Never smoker Alcohol intake: never Substance use: never Gender identity (if verbalized by the patient): Female Spiritual care concerns: No Comments At time of signature, agree with nursing past medical, surgical, social and family history. There is no relevant family history pertinent to the presenting complaint Exam Narrative: GENERAL: Well-appearing, well-nourished, and in no acute distress. HEAD: Normocephalic EYES: PERRLA, conjunctivae clear ENT: Nares clear, turbinates erythematous, clear discharge. Mucous membranes moist. TM pearly monet with dull light reflex bilaterally; no tragal tenderness. Oropharynx not erythematous without lesions. Tonsils not enlarged and without exudate, no drooling, no hoarseness, no trismus, uvula midline. NECK: Supple. No lymphadenopathy CHEST: Clear to auscultation, breath sounds equal. No wheezing, rhonchi, rales, or stridor. No respiratory distress, speaks in full sentences. Cough noted HEART: Regular rate and rhythm. No murmur heard. SKIN: Warm, dry, no rash. NEURO: Alert and oriented x3. PSYCH: Normal mood and affect Course Course Emergency Course: Patient is aware of diagnosis, understands and agrees to treatment plan. Anticipatory guidance given. Patient agrees to follow-up as directed and is aware of reasons to seek care at the emergency department. Portions of this record may have been created with voice recognition software Vital Signs Vital signs: Vital Signs Temperature 97.7 F 12/03/20 13:49 Pulse Rate 96 12/03/20 13:49 Respiratory Rate 16 12/03/20 13:49 Blood Pressure 134/77 12/03/20 13:49 Pulse Oximetry 100 12/03/20 13:49 Temperature 97.7 F 12/03/20 13:49 Pulse Rate 96 12/03/20 13:49 Respiratory Rate 16 12/03/20 13:49 Blood Pressure 134/77 12/03/20 13:49 Pulse Oximetry 100 12/03/20 13:49 Reviewed. MDM - URI/Sore Throat MDM Narrative Medical decision making narrative: Differential diagnosis considered: Huber virus, strep phary
[2020-12-04 21:10] LABS: SARS-CoV-2 RNA PCR Positive
== END 2020-12-03 14:58 | disposition home or self-care (01) ==
PROVIDERS: Emergency Provider Nurse Practitioner; PCP Registered Nurse
DX: U07.1 COVID-19 (principal); E11.9 Type 2 diabetes mellitus without complications; E03.9 Hypothyroidism, unspecified
CPT/HCPCS: 99213; C9803; G0463; U0003; U0005

== ENCOUNTER → 2020-12-19 16:00 | Outpatient (CLI) | payer BC, SELFPAY ==
--- NOTE | ~2020-12-19 | XR_ITS ---
EXAMINATION: XR chest 2V DATE: 12/19/2020 16:15 INDICATION: Cough. COVID-19 pneumonia. TECHNIQUE: Frontal and lateral views of the chest were obtained. COMPARISON: Chest 2 views 08/10/2013 FINDINGS: There are mild airspace opacities in left mid and lower lung zones. No pleural effusion or pneumothorax. The heart size is normal. IMPRESSION: 1. Mild airspace opacities in left mid and lower lung zones, consistent with atelectasis versus pneum onia. Reviewed, dictated and finalized at location A. IMPRESSION: 1. Mild airspace opacities in left mid and lower lung zones, consistent with at electasis versus pneumonia.
== END ==
PROVIDERS: PCP Registered Nurse; Visit Provider Registered Nurse
DX: R05 Cough (principal); Z86.16 Personal history of COVID-19; R91.8 Other nonspecific abnormal finding of lung field
CPT/HCPCS: 71046

== ENCOUNTER 2020-12-31 16:36 | Emergency (ER) | payer BC, OTHER, SELFPAY ==
--- NOTE | ~2020-12-31 | XR_ITS ---
XR chest 2V DATE: 12/31/2020 17:37 INDICATION: Cough for 2 weeks TECHNIQUE: 2 views COMPARISON: 12/19/2020 2 view chest FINDINGS: Normal heart size. No hilar or mediastinal enlargement. No pulmonary infiltrate or consolid ation, pleural effusion or pulmonary vascular congestion or pneumothorax. Included thoracic skeletal structures are unremarkable. IMPRESSION: No active cardiopulmonary disease Reviewed, dictated and finalized at location A.
[2020-12-31 16:51] VITALS: BP 117/92; PULSE 90; RESP 16; TEMP 36.3; O2SAT 100
--- NOTE | 2020-12-31 17:27 | ED.URI ---
HPI - URI/Sore Throat General Chief Complaint: Upper Respiratory Infection Stated Complaint: Cough Time Seen by Provider: 12/31/20 17:18 Source: patient and RN notes reviewed Mode of arrival: ambulatory Limitations: no limitations History of Present Illness HPI Narrative: 30-year-old female with history of type II diabetes presents with concern for ongoing cough. Reports Covid infection in the middle of November, reports she was given steroids, albuterol, Tessalon Perles at that time. Reports following up with her primary care provider for ongoing cough. Reports she had a chest x-ray that showed possible pneumonia, she was given a Z-Alex. MD elicited complaint: cough Related Data Home Medications Medication Instructions Recorded Confirmed insulin NPH isoph U-100 human SUBCUT 12/03/20 [Humulin N NPH U-100 Insulin] insulin lispro [Humalog KwikPen See Rx Instructions .ROUTE .COMPLEX 12/03/20 12/03/20 Insulin] sertraline 50 mg PO DAILY 12/03/20 12/03/20 Allergies Allergy/AdvReac Type Severity Reaction Status Date / Time lisinopril Allergy Swelling Verified 12/31/20 17:06 shellfish derived Allergy Rash Verified 12/31/20 17:06 Review of Systems Review of Systems: CONSTITUTIONAL: Denies malaise, chills, sweats, or fever. EYES: Denies visual changes, redness, or discharge. ENT: Denies rhinorrhea, congestion, sinus pain, otalgia and sore throat. CARDIOVASCULAR: Denies chest pain, palpitations, or edema. RESPIRATORY: Reports productive cough. Reports occasional exertional dyspnea. GASTROINTESTINAL: Denies abdominal pain, nausea, vomiting, diarrhea SKIN: Denies rash or itching. MUSCULOSKELETAL: Denies myalgia. NEUROLOGIC: Denies headache. All systems reviewed & are unremarkable except as noted in HPI and below PMFSH Family History Family History Father High cholesterol Social History Social History Smoking status: Never smoker Alcohol intake: never Substance use: never Gender identity (if verbalized by the patient): Female Spiritual care concerns: No Comments At time of signature, agree with nursing past medical, surgical, social and family history. There is no relevant family history pertinent to the presenting complaint Exam Narrative: GENERAL: Well-appearing, well-nourished, and in no acute distress. HEAD: Normocephalic EYES: PERRLA, conjunctivae clear ENT: Nares clear. Mucous membranes moist. TM pearly monet with dull light reflex bilaterally; no tragal tenderness. Oropharynx not erythematous without lesions. Tonsils not enlarged and without exudate, no drooling, no hoarseness, no trismus, uvula midline. NECK: Supple. No lymphadenopathy CHEST: Clear to auscultation, breath sounds equal. No wheezing, rhonchi, rales, or stridor. No respiratory distress, speaks in full sentences. HEART: Regular rate and rhythm. No murmur heard. SKIN: Warm, dry, no rash. NEURO: Alert and oriented x3. PSYCH: Normal mood and affect Course Course Emergency Course: Patient is aware of diagnosis, understands and agrees to treatment plan. Anticipatory guidance given. Patient agrees to follow-up as directed and is aware of reasons to seek care at the emergency department. Portions of this record may have been created with voice recognition software Vital Signs Vital signs: Vital Signs Temperature 97.4 F L 12/31/20 16:51 Pulse Rate 90 12/31/20 16:51 Respiratory Rate 16 12/31/20 16:51 Blood Pressure 117/92 H 12/31/20 16:51 Pulse Oximetry 100 12/31/20 16:51 Temperature 97.4 F L 12/31/20 16:51 Pulse Rate 90 12/31/20 16:51 Respiratory Rate 16 12/31/20 16:51 Blood Pressure 117/92 H 12/31/20 16:51 Pulse Oximetry 100 12/31/20 16:51 Reviewed. MDM - URI/Sore Throat MDM Narrative Medical decision making narrative: Differential diagnosis considered: Long-haul Covid, Covid pneumonia, pneu
== END 2020-12-31 18:12 | disposition home or self-care (01) ==
PROVIDERS: Emergency Provider Nurse Practitioner; PCP Registered Nurse
DX: R05 Cough (principal); B94.8 Sequelae of other specified infectious and parasitic diseases; E11.9 Type 2 diabetes mellitus without complications; E03.9 Hypothyroidism, unspecified
CPT/HCPCS: 71046; 99213; G0463

== ENCOUNTER 2023-04-15 18:01 | Emergency (ER) | payer MEDICAID, SELFPAY ==
--- NOTE | ~2023-04-15 | CT_ITS ---
EXAMINATION: CT abdomen pelvis w con DATE: 04/15/2023 21:30 INDICATION: uti, lower abd pain, N/V TECHNIQUE: Computed tomography (CT) of the abdomen and pelvis was performed with 100 mL Omnipaque-350 intravenous contrast. Automated exposure control and iterative reconstruction technique were employe d. The dose-length product was 1383.29 mGy-cm. COMPARISON: None. FINDINGS: Lower thorax: Minimal dependent atelectasis. Liver: Hepatomegaly. Diffusely low density parenchyma. Biliary/Gallbladder: Cholelithiasis. Gallbladder dilation. No inflammatory change. No bile duct dilat ion. Pancreas: No mass or duct dilation. Spleen: Normal. Adrenals:No mass. Kidneys: No suspicious mass, obstructing stone, or hydronephrosis. GI tract: No small or large bowel dilation. Normal appendix. Mesentery/Peritoneum: No ascites, mass, or free air. Retroperitoneum: No mass. Pelvis: Normal uterus and ovaries. Urinary bladder is partially distended with moderate wall thickeni ng. Soft Tissues: Bilateral enlarged inguinal lymph nodes. Bones: No acute osseous finding. IMPRESSION: Hepatomegaly and steatosis. Cholelithiasis with gallbladder hydrops. No pericholecystic fluid or inflammatory change. No bile bonnie t dilation. Correlate with symptoms of right upper quadrant pain and biliary labs. Cystitis versus urinary bladder wall thickening from incomplete distention. Bilateral inguinal lymphadenopathy. Reviewed, dictated and finalized at location K. FORCE MANAGER IMPRESSION: Hepatomegaly and steatosis. Cholelithiasis with gallbladder hydrops. No pericholecystic fluid or inflammato ry change. No bile duct dilation. Correlate with symptoms of right upper quadra nt pain and biliary labs. Cystitis versus urinary bladder wall thickening from incomplete distention. Bilateral inguinal lymphadenopathy.
--- NOTE | ~2023-04-15 | US_ITS ---
EXAMINATION: US pelvic complete w TV DATE: 04/15/2023 21:51 INDICATION: RLQ pain/pelvic pain TECHNIQUE: Multiple transabdominal and endovaginal sonographic images of the pelvis were obtained. COMPARISON: CT abdomen and pelvis, same date. FINDINGS: Uterus: 9.2 x 4.5 x 4.8 cm. Endometrial complex measures 6 mm. Right Ovary: 4.3 x 2.6 x 3.2 cm, total volume 18.7 mL. Vascular flow is present. Left Ovary: 3.1 x 2.4 x 2.1 cm. Vascular flow is present. There is no free fluid in the pelvis. IMPRESSION: Right ovary enlargement to 18.7 mL. Otherwise normal pelvic ultrasound findings. Reviewed, dictated and finalized at location K. E WIRER HELPER IMPRESSION: Right ovary enlargement to 18.7 mL. Otherwise normal pelvic ultrasound findings .
[2023-04-15 18:02] VITALS: BP 152/93; PULSE 97; RESP 20; TEMP 36.6; O2SAT 99
[2023-04-15 20:20] VITALS: BP 124/81; PULSE 76; RESP 15; TEMP 36.4; O2SAT 100
[2023-04-15 20:26] LABS: Basophils Absolute Auto 0.1 K/mm3 (0.0-0.1); Basophils Percent Auto 0.4 % (0.2-1.2); Eosinophils Absolute Auto 0.1 K/mm3 (0-0.3); Hematocrit 44.8 % (37.0-47.0); Hemoglobin 14.4 g/dL (12.0-15.0); Immature Granulocyte Absolute 0.11 K/mm3 (0.00-0.031); Immature Granulocyte Percent A 0.9 % (0-0.5); Lymphocytes Absolute Auto 4.42 K/mm3 (0.9-3.2); Mean Corpuscular HGB Conc 32.1 g/dl (32-36); Mean Corpuscular Hemoglobin 27.6 pg (26-34); Mean Corpuscular Volume 85.8 fl (80-100); Mean Platelet Volume 10.6 fl (7.4-10.4); Monocytes Absolute Auto 0.7 K/mm3 (0.1-0.6); Monocytes Percent Auto 5.5 % (2.6-8.5); Neutrophils Absolute Auto 7.2 K/mm3 (1.3-6.7); Neutrophils Percent Auto 57.2 % (45.5-73.1); Platelet Count Result 372 k/mm3 (150-375); Red Blood Count 5.22 M/mm3 (4.2-5.4); Red Cell Distribution Width 13.6 % (11.5-14.5); White Blood Count 12.6 K/mm3 (4.5-10.0)
[2023-04-15 20:34] LABS: Appearance Urine Clear (Clear); Bacteria Urine None Seen /hpf; Bilirubin Urine 1+ (Negative); Blood Urine Negative (Negative); Color Urine Dark Yellow (Yellow); Glucose Urine UA Negative (Negative); Ketones Urine 1+ mg/dL (Negative); Leukocyte Esterase Ur 1+ LEU/UL (Negative); Need Manual Microscopic Reviewed; Nitrate Urine Positive (Negative); Protein Urine 1+ mg/dL (Negative); Specific Grav Ur 1.023 (1.001-1.035); Squamous Epithelial Cell Urine Few /hpf (Few); pH Urine 5.5 (5.0-9.0)
[2023-04-15 20:39] LABS: Add Urine Microscopic? YES
[2023-04-15 20:40] LABS: Alanine Aminotransferase 42 U/L (6-35); Albumin Level 4.6 g/dL (3.5-5.1); Alkaline Phosphatase 97 U/L (38-126); Anion Gap 12 mmol/L (8-16); Aspartate Amino Transferase 43 U/L (14-36); Bilirubin,Total 0.5 mg/dL (0.2-1.3); Blood Urea Nitrogen 12 mg/dL (7-17); Calcium 9.4 mg/dL (8.4-10.2); Carbon Dioxide 28 mmol/L (22-30); Chloride 98 mmol/L (98-107); Estimated CRCL calculation 186 ml/min; Estimated Glomerular Filt Rate > 60; Glucose 175 mg/dL (65-110); Lipase 210 U/L (23-300); Potassium 3.9 mmol/L (3.4-5.0); Sodium 138 mmol/L (137-145)
--- NOTE | 2023-04-15 21:20 | PC.NURSE ---
Per USMAN Young blood cultures not needed.
[2023-04-15] MEDS: ONDANSETRON INJ 4 MG/2 ML VIAL IV PUSH ×2 (21:46→23:54)
--- NOTE | 2023-04-15 21:46 | ED.ABDPAIN ---
HPI - Abdominal Pain General Chief Complaint: Abdominal Pain Stated Complaint: n/v, UTI sx Time Seen by Provider: 04/15/23 20:09 Source: patient Mode of arrival: ambulatory Limitations: no limitations History of Present Illness HPI narrative: Patient is a 32-year-old female who presents to the ED with report of UTI symptoms, lower abdominal pain. Patient reports she has been dealing with recurrent UTIs intermittently for the last 1 month. She has been on Bactrim and been taking azo/Pyridium without improvement. He complains of persistent dysuria, urinary frequency. Denies hematuria. Reports today, she developed pain throughout her lower abdomen, worse on the right side, in addition to nausea and vomiting, HAs. She does still feel nauseous currently. Denies fevers. Denies diarrhea, constipation vaginal bleeding, cough or cold symptoms. Related Data Home Medications Medication Instructions Recorded Confirmed insulin NPH isoph U-100 human 100 subcut 12/03/20 unit/mL subcutaneous suspension (Humulin N NPH U-100 Insulin (isophane susp)) insulin lispro 100 unit/mL See Rx Instructions .Route .COMPLEX 12/03/20 12/03/20 subcutaneous pen (Humalog KwikPen (U-100) Insulin) sertraline 50 mg tablet 50 mg PO DAILY 12/03/20 12/03/20 Allergies Allergy/AdvReac Type Severity Reaction Status Date / Time lisinopril Allergy Swelling Verified 12/31/20 17:06 shellfish derived Allergy Rash Verified 12/31/20 17:06 Review of Systems Review of Systems: CONSTITUTIONAL: Denies fever, chills, or sweats. GASTROINTESTINAL: See HPI GENITOURINARY: See HPI MUSCULOSKELETAL: Denies back pain, extremity pain, myalgia. NEUROLOGIC: See HPI All systems reviewed & are unremarkable except as noted in HPI and below PMFSH Family History Family History Father High cholesterol Social History Social History Smoking status: Never smoker Alcohol intake: never Substance use: never Gender identity (if verbalized by the patient): Female Spiritual care concerns: No Exam Narrative: GENERAL: Well appearing, obese with BMI of 37.6 non-toxic, in no acute distress. HEAD: Normocephalic, atraumatic. RESPIRATORY: Airway patent, respirations nonlabored. Clear to auscultation bilaterally, no rales, rhonchi, wheezing. CARDIOVASCULAR: Regular rate and rhythm without murmurs, rubs, or gallops. ABDOMINAL: Soft, mild TTP in RLQ, suprapubic region, nondistended. Normoactive BS. MUSCULOSKELETAL: Moves all extremities. No gross deformities. SKIN: Warm, dry, normal color. NEURO: A&O X3. Speech clear. Cranial nerves II-XII grossly intact. Steady gait. No ataxic movements. PSYCHIATRIC: Appropriate mood and affect. Normal interaction. Course Vital Signs Vital signs: Vital Signs Temperature 97.8 F 04/15/23 18:02 Pulse Rate 97 04/15/23 18:02 Respiratory Rate 20 04/15/23 18:02 Blood Pressure 152/93 H 04/15/23 18:02 Pulse Oximetry 99 04/15/23 18:02 Oxygen Delivery Room Air 04/15/23 18:02 Temperature 97.8 F 04/16/23 00:02 Pulse Rate 78 04/16/23 00:02 Respiratory Rate 14 04/16/23 00:02 Blood Pressure 138/76 04/16/23 00:02 Pulse Oximetry 99 04/16/23 00:02 Oxygen Delivery Room Air 04/15/23 18:02 MDM - Abdominal Pain MDM Narrative Medical decision making narrative: Patient presented to ED with report of persistent UTI, lower abdominal pain, nausea, vomiting. Patient's vital stable upon arrival. In no acute distress. Afebrile. Tenderness throughout right lower abdomen on exam. CBC with leukocytosis of 12.6. CMP unremarkable. Glucose mildly elevated to 175. Patient with history of diabetes. On Trulicity. States she has not been checking her sugars as much as she should. No evidence of DKA. No anion gap. Normal bicarb. UA consistent with infection, positive nitrate
[2023-04-15] MEDS: ACETAMINOPHEN 500 MG TABLET 1000 MG PO (21:48)
[2023-04-15 22:43] VITALS: BP 115/60; PULSE 98; RESP 16; O2SAT 99
[2023-04-15] MEDS: KETOROLAC 30 MG/ML VIAL (*BKC) IV PUSH (23:54)
[2023-04-16 00:02] VITALS: BP 138/76; PULSE 78; RESP 14; TEMP 36.6; O2SAT 99
== END 2023-04-16 00:03 | disposition home or self-care (01) ==
PROVIDERS: Emergency Medicine; Emergency Provider Physician Assistant; PCP Registered Nurse
DX: N30.01 Acute cystitis with hematuria (principal); N83.8 Other noninflammatory disorders of ovary, fallopian tube and broad ligament; R10.30 Lower abdominal pain, unspecified
CPT/HCPCS: 36415; 74177; 76830; 76856; 80053; 81001; 81025; 83690; 85025; 87077; 87086; 87088; 96365; 96375; 96376; 99284; A9270; J0696; J1885; J2405; Q9967

== ENCOUNTER 2023-05-11 15:02 | Emergency (ER) | payer MEDICAID, SELFPAY ==
[2023-05-11 15:13] VITALS: BP 138/84; PULSE 76; RESP 18; TEMP 36.3; O2SAT 98
--- NOTE | 2023-05-11 16:32 | ED.URI ---
HPI - URI/Sore Throat General Chief Complaint: Upper Respiratory Infection Stated Complaint: Cough Time Seen by Provider: 05/11/23 16:09 Source: patient and RN notes reviewed Mode of arrival: ambulatory Limitations: no limitations History of Present Illness HPI Narrative: Patient presents today with a 1+ week history of cough, nasal congestion, headache. States her symptoms had improved after day 4-5, but then worsened again. Denies fever or shortness of breath. She has tried Mucinex and TheraFlu with mild relief. Denies history of asthma or COPD. She is a nonsmoker. Related Data Home Medications Medication Instructions Recorded Confirmed atorvastatin 20 mg tablet mg 05/11/23 escitalopram oxalate 20 mg tablet 20 mg DIRECTED 05/11/23 05/11/23 montelukast 10 mg tablet 10 mg DIRECTED 05/11/23 05/11/23 spironolactone 50 mg tablet mg 05/11/23 tirzepatide 2.5 mg/0.5 mL mg subcut 05/11/23 subcutaneous pen injector (Yuli) Allergies Allergy/AdvReac Type Severity Reaction Status Date / Time lisinopril Allergy Swelling Verified 12/31/20 17:06 shellfish derived Allergy Rash Verified 12/31/20 17:06 Review of Systems Review of Systems: CONSTITUTIONAL: Denies body aches, fever, chills, or sweats. EYES: Denies visual changes, redness, or discharge. ENT: Denies rhinorrhea, sore throat, or otalgia.+ congestion CARDIOVASCULAR: Denies chest pain, palpitations, or edema. RESPIRATORY: Denies dyspnea.+ cough GASTROINTESTINAL: Denies abdominal pain, nausea, vomiting, or diarrhea. GENITOURINARY: Denies dysuria or hematuria. SKIN: Denies rash, itching, or wounds. MUSCULOSKELETAL: Denies back pain, joint pain, or myalgia. NEUROLOGIC: Denies numbness, tingling, or weakness.+ headache PSYCH: Denies depression or anxiety. [facility] Family History Family History Father High cholesterol Social History Social History Smoking status: Never smoker Alcohol intake: never Substance use: never Gender identity (if verbalized by the patient): Female Spiritual care concerns: No Comments At time of signature, I have reviewed and agree with nursing past medical, surgical, social and family history unless otherwise noted. Please see nursing chart for further information. There is no relevant family history pertinent to the presenting complaint Exam Narrative: GENERAL: Well-appearing, well-nourished, and in no acute distress. HEAD: Normocephalic, atraumatic. EYES: EOMI. No redness or drainage. Conjunctivae normal. ENT: Mucous membranes pink and moist. Nares clear. No rhinorrhea. TMs normal bilaterally. Throat normal. Uvula midline. NECK: Normal AROM. Supple. No lymphadenopathy. CHEST: No respiratory distress. Clear to auscultation. HEART: Regular rate and rhythm. No murmur appreciated. EXTREMITIES: Normal range of motion. No edema. SKIN: Warm, dry, no rash. Capillary refill normal. Normal skin turgor. NEURO: No focal deficits. Alert and oriented x3. Gait steady. PSYCH: Normal affect. No signs of depression or anxiety. Course Course Level of Care: Express Care Visit Vital Signs Vital signs: Vital Signs Temperature 97.3 F L 05/11/23 15:13 Pulse Rate 76 05/11/23 15:13 Respiratory Rate 18 05/11/23 15:13 Blood Pressure 138/84 05/11/23 15:13 Pulse Oximetry 98 05/11/23 15:13 Oxygen Delivery Room Air 05/11/23 15:13 Temperature 97.3 F L 05/11/23 15:13 Pulse Rate 76 05/11/23 15:13 Respiratory Rate 18 05/11/23 15:13 Blood Pressure 138/84 05/11/23 15:13 Pulse Oximetry 98 05/11/23 15:13 Oxygen Delivery Room Air 05/11/23 15:13 Reviewed MDM - URI/Sore Throat MDM Narrative Medical decision making narrative: Patient will be treated with a course of Augmentin for her symptoms due to double sickening. She has been instructed to continu
== END 2023-05-11 16:44 | disposition home or self-care (01) ==
PROVIDERS: Emergency Provider Nurse Practitioner; PCP Registered Nurse
DX: J01.90 Acute sinusitis, unspecified (principal); E78.00 Pure hypercholesterolemia, unspecified; E11.9 Type 2 diabetes mellitus without complications; E03.9 Hypothyroidism, unspecified
CPT/HCPCS: 99213; G0463

== ENCOUNTER 2024-02-20 19:16 | Emergency (ER) | payer OTHER, MEDICAID, SELFPAY ==
--- NOTE | ~2024-02-20 | US_ITS ---
EXAMINATION: US pelvic complete w TV DATE: 02/20/2024 21:56 INDICATION: Lower abdominal pain TECHNIQUE: Multiple transabdominal and endovaginal sonographic images of the pelvis were obtained. COMPARISON: None. FINDINGS: The uterus measures 9.4 x 5.3 x 6.6 cm. The endometrial complex measures 14 mm in thickness. There i s a double decidua sign consistent with a gestational sac which contacts but peripheral to the endome trial complex at the peripheral margin of the gestational sac extending to within 5-6 mm of the seros al surface of the uterus highly suspicious for an interstitial ectopic . No internal yolk sa c or pole yet apparent. The mean sac diameter measures 6 mm which corresponds with an estimated gestational age of 5 weeks and 2 days. The right ovary measures 3.1 x 2.4 x 2.7 cm. The left ovary measures 3.2 x 2.6 x 2.8 cm. Vascular dhruv w is identified in both ovaries on color Doppler including along the peripheral thick wall of a 1.7 c m centrally hypoechoic corpus luteum cyst in the left ovary. There is no free fluid in the pelvis. IMPRESSION: 1. Intrauterine but which is essentially located at the left side of the fundus peripheral to the endometrial complex and which extends to within 5-6 mm of the serosal surface highly concernin g for an interstitial ectopic . No internal yolk sac or pole and this remains indeterm inate for early versus failed . Recommend OB consultation. Dr. Huggins discussed these find ings with Dr. Espino at 8:38 AM. 2. Gestational age by ultrasound of 5 weeks 2 day(s) +/- 3 day(s) with ultrasound estimated date of delivery (JEFF) of 10/20/2024. Reviewed, dictated and finalized at location A. [facility] [employer] IMPRESSION: 1. Intrauterine but which is essentially located at the left side of the fundus peripheral to the endometrial complex and which extends to within 5- 6 mm of the serosal surface highly concerning for an interstitial ectopic pregn eddie. No internal yolk sac or pole and this remains indeterminate for ear ly versus failed . Recommend OB consultation. Dr. Huggins discussed t hese findings with Dr. Espino at 8:38 AM. 2. Gestational age by ultrasound of 5 weeks 2 day(s) +/- 3 day(s) with ultraso und estimated date of delivery (JEFF) of 10/20/2024.
[2024-02-20 19:20] VITALS: BP 133/74; PULSE 80; RESP 16; TEMP 36.4; O2SAT 99
--- NOTE | 2024-02-20 19:42 | PC.NURSE ---
This patient has c/o lower back pain, abdominal pain, and headache x's 1 day. Patient has had episodes of vomiting and nausea. Patient is alert and oriented x's 4. Patient states her last bowel movement was on 02/20/2024. Labs obtained and urine obtained.
--- NOTE | 2024-02-20 20:02 | PC.NURSE ---
medications given per MAR. Patient is feeling better. Labs sent by cabinet worker. Patient is resting on ER stretcher, friend at bedside.
--- NOTE | 2024-02-20 20:29 | PC.NURSE ---
patient went to the bathroom but not enough urine provided. will attempt again.
--- NOTE | 2024-02-20 20:30 | ED.ABDPAIN ---
HPI - Abdominal Pain General Chief Complaint: Abdominal Pain <MELLISSA Pat Last Filed: 02/21/24 01:47 CDT> Stated Complaint: abd pain <MELLISSA Pat Last Filed: 02/21/24 01:47 CDT> Time Seen by Provider: 02/20/24 19:50 <Marcella Pierre PA-C - Last Filed: 02/21/24 01:47 CDT> History of Present Illness HPI narrative: 33-year-old female with history of type 2 diabetes, migraines, anxiety presents to the emergency department for lower abdominal pain and back pain for 1 week. Patient states she has associated dysuria N/V. She describes the pain as burning. She denies known fever, diarrhea, vaginal discharge or concern for STDs. She is requesting a transvaginal ultrasound. LMP 01/13/2024. <MELLISSA Pat Last Filed: 02/21/24 01:47 CDT> Related Data Home Medications: Home Medications Medication Instructions Recorded Confirmed atorvastatin 20 mg tablet mg 05/11/23 escitalopram oxalate 20 mg tablet 20 mg DIRECTED 05/11/23 05/11/23 montelukast 10 mg tablet 10 mg DIRECTED 05/11/23 05/11/23 spironolactone 50 mg tablet mg 05/11/23 tirzepatide 2.5 mg/0.5 mL mg subcut 05/11/23 subcutaneous pen injector (Mounjaro) <MELLISSA Pat Last Filed: 02/21/24 01:47 CDT> Allergies/Adverse Reactions: Allergies Allergy/AdvReac Type Severity Reaction Status Date / Time lisinopril Allergy Swelling Verified 02/20/24 19:26 shellfish derived Allergy Rash Verified 02/20/24 19:26 <MELLISSA Pat Last Filed: 02/21/24 01:47 CDT> Review of Systems Review of Systems: All systems reviewed & are unremarkable except as noted in HPI and below <MELLISSA Pat Last Filed: 02/21/24 01:47 CDT> PMFSH Family History Family History: Family History Father High cholesterol <Marcella Pierre PA-C - Last Filed: 02/21/24 01:47 CDT> Social History Social History: Social History Smoking status: Never smoker Alcohol intake: never Substance use: never Gender identity (if verbalized by the patient): Female Spiritual care concerns: No <Marcella Pierre PA-C - Last Filed: 02/21/24 01:47 CDT> Exam Narrative: GENERAL: Well-appearing, well-nourished, and in no acute distress. HEAD: Normocephalic, atraumatic. EYES: PERRLA and EOMI. ENT: Nares clear, no rhinorrhea or epistaxis. Mucous membranes moist. NECK: Supple. CHEST: Clear to auscultation. No respiratory distress. HEART: Regular rate and rhythm. No murmur heard. Normal peripheral pulses. ABDOMEN: Normoactive bowel sounds. Abdomen soft with minimal tenderness in the suprapubic region. No rebound, guarding or rigidity. No CVA tenderness. EXTREMITIES: Normal range of motion. No edema. SKIN: Warm, dry, no rash. NEURO: No focal deficits. Alert and oriented x3 <Marcella Pierre PA-C - Last Filed: 02/21/24 01:47 CDT> Course Course Emergency Course: (Dr Beltre): received phone call from radiologist Dr. Modi at approximately 08:40 who reports that when he reads the study he is concerned for an interstitial ectopic it is unclear whether this was conveyed as a possibility to the patient. I reviewed the note and discharge instructions that were provided to patient which also included a repeat beta hCG level for 48 hours. patient's OB Gyne is Dr Aponte. Discussed with him. He states he will call the patient to ensure close and appropriate follow up. <Ana Beltre MD - Last Filed: 02/21/24 08:44> Vital Signs Vital signs: Vital Signs Temperature 97.5 F L 02/20/24 19:20 Pulse Rate 80 02/20/24 19:20 Respiratory Rate 16 02/20/24 19:20 Blood Pressure 133/74 02/20/24 19:20 Pulse Oximetry 99 02/20/24 19:20 Oxygen Delivery Room Air 02/20/24 19:20 Temperature 97.5 F L 02/20/24 19:20 Pulse Rate 80 02/20/24 19:20 Respiratory Rate 16 02/20/24 19:20 Blood Pressure 133/74 02/20/24 19:20 Pulse Oximetry 99 02/20/24 19:20 Oxygen Delivery Room Air 02/20/24 19:20 <Marcella Pierre PA-C - Last Filed: 02/21/24 01:47 CDT> Vital Signs Temperature 97.5 F L 02/20/24 19:20 Pulse Rate 80 02/20/24 19:20 Respiratory Rate 16 02/20/24 19:20 Blood Pressure 133/74 02/20/24 19:20 Pulse Oximetry 99 02/20/24 19:20 Oxygen Delivery Room Air 02/20/24 19:20 Temperature 97.5 F L 02/20/24 19:20 Pulse Rate 80 02/20/24 19:20 Respiratory Rate 16 02/20/24 19:20 Blood Pressure 133/74 02/20/24 19:20 Pulse Oximetry 99 02/20/24 19:20 Oxygen Delivery Room Air 02/20/24 19:20 <Ana Beltre MD - Last Filed: 02/21/24 08:44> MDM - Abdominal Pain MDM Narrative Medical decision making narrative: 33-year-old female presents to emergency department for lower abdominal pain, low back pain, dysuria, s/p for 1 week. Triage vitals are stable. Exam is significant for the above. Patient's urine did come back positive. Beta hCG quantitative was obtained which is 1560.1. CBC with mild leukocytosis of 10.7. Chemistries are unremarkable. Urinalysis with 2+ leuk esterase, 6-10 wbc's. No rbc's, no bacteria, no nitrites. Urine culture pending. Pelvic ultrasound shows a single intrauterine gestational sac and leftward aspect of the endometrial cavity with no pole or yolk sac identified. These findings may be secondary to early stage of but failed early cannot be excluded. There is normal color Doppler flow to both ovaries with no free fluid. Patient updated on workup. She is . She remains resting comfortably in exam bed and politely declined IV fluids, anti emetics and pain medications. Her vital signs remained stable. Given her complaint of dysuria, will start Keflex for UTI. Discussed importance for follow-up with her OBGYN, Dr. Aponte. An outpatient order for repeat beta-hCG in 48 hours provided. Advised to take [id number] vitamin. Discussed strict ED return precautions. She is agreeable to plan verbalized understanding. Discharged in stable condition. <Marcella Pierre PA-C - Last Filed: 02/21/24 01:47 CDT> Lab Data Result diagrams: 02/20/24 20:27 02/20/24 20:27 <Marcella Pierre PA-C - Last Filed: 02/21/24 01:47 CDT> Labs: Lab Results 02/20/24 02/20/24 02/20/24 Range/Units 20:26 20:27 22:12 WBC 10.7 H (4.5-10.0) K/mm3 RBC 4.27 (4.2-5.4) M/mm3 Hgb 12.8 (12.0-15.0) g/dL Hct 37.5 (37.0-47.0) % MCV 87.8 (80-100) fl MCH 30.0 (26-34) pg MCHC 34.1 (32-36) g/dl RDW 13.3 (11.5-14.5) % Plt Count 345 (150-375) k/mm3 MPV 10.7 H (7.4-10.4) fl Immature Gran % (Auto) 0.2 (0-0.5) % Neut % (Auto) 53.9 (45.5-73.1) % Lymph % (Auto) 38.5 (18.3-44.2) % [place] % (Auto) 6.4 (2.6-8.5) % Eos % (Auto) 0.7 (0-4.4) % Baso % (Auto) 0.3 (0.2-1.2) % Lymph # (Auto) 4.11 H (0.9-3.2) K/mm3 Blackford # (Auto) 0.7 H (0.1-0.6) K/mm3 Eos # (Auto) 0.1 (0-0.3) K/mm3 Baso # (Auto) 0.0 (0.0-0.1) K/mm3 Abs Immat Gran (auto) 0.02 (0.00-0.031) K/mm3 Absolute Neuts (auto) 5.8 (1.3-6.7) K/mm3 Absolute Nucleated RBC 0.000 (0.0-0.012) K/mm3 Nucleated RBC % 0.0 (0.0-0.2) % Sodium 138 (137-145) mmol/L Potassium 3.8 (3.4-5.0) mmol/L Chloride 101 (98-107) mmol/L Carbon Dioxide 30 (22-30) mmol/L Anion Gap 7 (4-12) mmol/L BUN 14 (7-17) mg/dL Creatinine 0.60 L (0.7-1.0) mg/dL Estim Creat Clear Calc 121 ml/min Estimated GFR > 60 (59 - ) Glucose 116 H (65-110) mg/dL Calcium 9.0 (8.4-10.2) mg/dL Total Bilirubin 0.1 L (0.2-1.3) mg/dL AST 22 (14-36) U/L ALT 17 (6-35) U/L Alkaline Phosphatase 70 (38-126) U/L Total Protein 8.0 (6.3-8.2) g/dL Albumin 4.1 (3.5-5.1) g/dL Lipase 189 (23-300) U/L Beta HCG, Quant 1560.10 mIU/ML Urine Color Yellow (Yellow) Urine Appearance Clear (Clear) Urine pH 6.5 (5.0-9.0) Ur Specific Eldridge 1.013 (1.001-1.035) Urine Protein Negative (Negative) mg/dL Urine Glucose (UA) Negative (Negative) mg/dL Urine Ketones Negative (Negative) mg/dL Ur Blood (Man) Negative (Negative) Urine Nitrate Negative (Negative) Urine Bilirubin Negative (Negative) Urine Urobilinogen 0.2 (<2.0) mg/dL Leukocyte Esterase Rfl 2+ H (Negative) MIA/UL Urine RBC 0-2 (0-2) /hpf Urine WBC 6-10 H (0-3) /hpf Ur Squamous Epith Cells None seen (Few) /hpf Urine Bacteria None seen /hpf Urine Casts 0-2 POC Urine HCG, Qual (Negative) 02/20/24 Range/Units 22:16 WBC (4.5-10.0) K/mm3 RBC (4.2-5.4) M/mm3 Hgb (12.0-15.0) g/dL Hct (37.0-47.0) % MCV (80-100) fl MCH (26-34) pg MCHC (32-36) g/dl RDW (11.5-14.5) % Plt Count (150-375) k/mm3 MPV (7.4-10.4) fl Immature Gran % (Auto) (0-0.5) % Neut % (Auto) (45.5-73.1) % Lymph % (Auto) (18.3-44.2) % Blackford % (Auto) (2.6-8.5) % Eos % (Auto) (0-4.4) % Baso % (Auto) (0.2-1.2) % Lymph # (Auto) (0.9-3.2) K/mm3 Blackford # (Auto) (0.1-0.6) K/mm3 Eos # (Auto) (0-0.3) K/mm3 Baso # (Auto) (0.0-0.1) K/mm3 Abs Immat Gran (auto) (0.00-0.031) K/mm3 Absolute Neuts (auto) (1.3-6.7) K/mm3 Absolute Nucleated RBC (0.0-0.012) K/mm3 Nucleated RBC % (0.0-0.2) % Sodium (137-145) mmol/L Potassium (3.4-5.0) mmol/L Chloride (98-107) mmol/L Carbon Dioxide (22-30) mmol/L Anion Gap (4-12) mmol/L BUN (7-17) mg/dL Creatinine (0.7-1.0) mg/dL Estim Creat Clear Calc ml/min Estimated GFR (59 - ) Glucose (65-110) mg/dL Calcium (8.4-10.2) mg/dL Total Bilirubin (0.2-1.3) mg/dL AST (14-36) U/L ALT (6-35) U/L Alkaline Phosphatase (38-126) U/L Total Protein (6.3-8.2) g/dL Albumin (3.5-5.1) g/dL Lipase (23-300) U/L Beta HCG, Quant mIU/ML Urine Color (Yellow) Urine Appearance (Clear) Urine pH (5.0-9.0) Ur Specific Eldridge (1.001-1.035) Urine Protein (Negative) mg/dL Urine Glucose (UA) (Negative) mg/dL Urine Ketones (Negative) mg/dL Ur Blood (Man) (Negative) Urine Nitrate (Negative) Urine Bilirubin (Negative) Urine Urobilinogen (<2.0) mg/dL Leukocyte Esterase Rfl (Negative) MIA/UL Urine RBC (0-2) /hpf Urine WBC (0-3) /hpf Ur Squamous Epith Cells (Few) /hpf Urine Bacteria /hpf Urine Casts POC Urine HCG, Qual Positive (Negative) <Marcella Pierre PA-C - Last Filed: 02/21/24 01:47 CDT> Lab Results 02/20/24 02/20/24 02/20/24 Range/Units 20:26 20:27 22:12 WBC 10.7 H (4.5-10.0) K/mm3 RBC 4.27 (4.2-5.4) M/mm3 Hgb 12.8 (12.0-15.0) g/dL Hct 37.5 (37.0-47.0) % MCV 87.8 (80-100) fl MCH 30.0 (26-34) pg MCHC 34.1 (32-36) g/dl RDW 13.3 (11.5-14.5) % Plt Count 345 (150-375) k/mm3 MPV 10.7 H (7.4-10.4) fl Immature Gran % (Auto) 0.2 (0-0.5) % Neut % (Auto) 53.9 (45.5-73.1) % Lymph % (Auto) 38.5 (18.3-44.2) % Blackford % (Auto) 6.4 (2.6-8.5) % Eos % (Auto) 0.7 (0-4.4) % Baso % (Auto) 0.3 (0.2-1.2) % Lymph # (Auto) 4.11 H (0.9-3.2) K/mm3 Blackford # (Auto) 0.7 H (0.1-0.6) K/mm3 Eos # (Auto) 0.1 (0-0.3) K/mm3 Baso # (Auto) 0.0 (0.0-0.1) K/mm3 Abs Immat Gran (auto) 0.02 (0.00-0.031) K/mm3 Absolute Neuts (auto) 5.8 (1.3-6.7) K/mm3 Absolute Nucleated RBC 0.000 (0.0-0.012) K/mm3 Nucleated RBC % 0.0 (0.0-0.2) % Sodium 138 (137-145) mmol/L Potassium 3.8 (3.4-5.0) mmol/L Chloride 101 (98-107) mmol/L Carbon Dioxide 30 (22-30) mmol/L Anion Gap 7 (4-12) mmol/L BUN 14 (7-17) mg/dL Creatinine 0.60 L (0.7-1.0) mg/dL Estim Creat Clear Calc 121 ml/min Estimated GFR > 60 (59 - ) Glucose 116 H (65-110) mg/dL Calcium 9.0 (8.4-10.2) mg/dL Total Bilirubin 0.1 L (0.2-1.3) mg/dL AST 22 (14-36) U/L ALT 17 (6-35) U/L Alkaline Phosphatase 70 (38-126) U/L Total Protein 8.0 (6.3-8.2) g/dL Albumin 4.1 (3.5-5.1) g/dL Lipase 189 (23-300) U/L Beta HCG, Quant 1560.10 mIU/ML Urine Color Yellow (Yellow) Urine Appearance Clear (Clear) Urine pH 6.5 (5.0-9.0) Ur Specific Eldridge 1.013 (1.001-1.035) Urine Protein Negative (Negative) mg/dL Urine Glucose (UA) Negative (Negative) mg/dL Urine Ketones Negative (Negative) mg/dL Ur Blood (Man) Negative (Negative) Urine Nitrate Negative (Negative) Urine Bilirubin Negative (Negative) Urine Urobilinogen 0.2 (<2.0) mg/dL Leukocyte Esterase Rfl 2+ H (Negative) MIA/UL Urine RBC 0-2 (0-2) /hpf Urine WBC 6-10 H (0-3) /hpf Ur Squamous Epith Cells None seen (Few) /hpf Urine Bacteria None seen /hpf Urine Casts 0-2 POC Urine HCG, Qual (Negative) 02/20/24 Range/Units 22:16 WBC (4.5-10.0) K/mm3 RBC (4.2-5.4) M/mm3 Hgb (12.0-15.0) g/dL Hct (37.0-47.0) % MCV (80-100) fl MCH (26-34) pg MCHC (32-36) g/dl RDW (11.5-14.5) % Plt Count (150-375) k/mm3 MPV (7.4-10.4) fl Immature Gran % (Auto) (0-0.5) % Neut % (Auto) (45.5-73.1) % Lymph % (Auto) (18.3-44.2) % [place] % (Auto) (2.6-8.5) % Eos % (Auto) (0-4.4) % Baso % (Auto) (0.2-1.2) % Lymph # (Auto) (0.9-3.2) K/mm3 [place] # (Auto) (0.1-0.6) K/mm3 Eos # (Auto) (0-0.3) K/mm3 Baso # (Auto) (0.0-0.1) K/mm3 Abs Immat Gran (auto) (0.00-0.031) K/mm3 Absolute Neuts (auto) (1.3-6.7) K/mm3 Absolute Nucleated RBC (0.0-0.012) K/mm3 Nucleated RBC % (0.0-0.2) % Sodium (137-145) mmol/L Potassium (3.4-5.0) mmol/L Chloride (98-107) mmol/L Carbon Dioxide (22-30) mmol/L Anion Gap (4-12) mmol/L BUN (7-17) mg/dL Creatinine (0.7-1.0) mg/dL Estim Creat Clear Calc ml/min Estimated GFR (59 - ) Glucose (65-110) mg/dL Calcium (8.4-10.2) mg/dL Total Bilirubin (0.2-1.3) mg/dL AST (14-36) U/L ALT (6-35) U/L Alkaline Phosphatase (38-126) U/L Total Protein (6.3-8.2) g/dL Albumin (3.5-5.1) g/dL Lipase (23-300) U/L Beta HCG, Quant mIU/ML Urine Color (Yellow) Urine Appearance (Clear) Urine pH (5.0-9.0) Ur Specific Eldridge (1.001-1.035) Urine Protein (Negative) mg/dL Urine Glucose (UA) (Negative) mg/dL Urine Ketones (Negative) mg/dL Ur Blood (Man) (Negative) Urine Nitrate (Negative) Urine Bilirubin (Negative) Urine Urobilinogen (<2.0) mg/dL Leukocyte Esterase Rfl (Negative) MIA/UL Urine RBC (0-2) /hpf Urine WBC (0-3) /hpf Ur Squamous Epith Cells (Few) /hpf Urine Bacteria /hpf Urine Casts POC Urine HCG, Qual Positive (Negative) <Ana Beltre MD - Last Filed: 02/21/24 08:44> Imaging Data Radiologist's impression: ITS Impressions Pelvic/Transvag US 02/21/24 08:18 IMPRESSION: 1. Intrauterine but which is essentially located at the left side of the fundus peripheral to the endometrial complex and which extends to within 5-6 mm of the serosal surface highly concerning for an interstitial ectopic . No internal yolk sac or pole and this remains indeterminate for early versus failed . Recommend OB consultation. Dr. Huggins discussed these findings with Dr. Beltre at 8:38 AM. 2. Gestational age by ultrasound of 5 weeks 2 day(s) +/- 3 day(s) with ultrasound estimated date of delivery (JEFF) of 10/20/2024. <Marcella Pierre PA-C - Last Filed: 02/21/24 01:47 CDT> ITS Impressions Pelvic/Transvag US 02/21/24 08:18 IMPRESSION: 1. Intrauterine but which is essentially located at the left side of the fundus peripheral to the endometrial complex and which extends to within 5-6 mm of the serosal surface highly concerning for an interstitial ectopic . No internal yolk sac or pole and this remains indeterminate for early versus failed . Recommend OB consultation. Dr. Huggins discussed these findings with Dr. Beltre at 8:38 AM. 2. Gestational age by ultrasound of 5 weeks 2 day(s) +/- 3 day(s) with ultrasound estimated date of delivery (JEFF) of 10/20/2024. <Ana Beltre MD - Last Filed: 02/21/24 08:44> Discharge Plan Discharge Clinical Impression: Qualifiers: Weeks of gestation: less than 8 weeks Qualified Code(s): Z3A.01 - Less than 8 weeks gestation of UTI (urinary tract infection) Qualifiers: Urinary tract infection type: acute cystitis Hematuria presence: without hematuria Qualified Code(s): N30.00 - Acute cystitis without hematuria <aMrcella Pierre PA-C - Last Filed: 02/21/24 01:47 CDT> Patient Disposition: Home, Self-Care <Marcella Pierre PA-C - Last Filed: 02/21/24 01:47 CDT> Condition: Stable <Marcella Pierre PA-C - Last Filed: 02/21/24 01:47 CDT> Instructions: Antibiotic Form, Abdominal Pain in (ED), Urinary Tract Infection in (ED) <Marcella Pierre PA-C - Last Filed: 02/21/24 01:47 CDT> Additional Instructions: Your evaluated in the emergency department for abdominal pain and back pain. Her found to be . The ultrasound shows a single intrauterine gestational sac but there is no evidence of a pole or yolk sac. Please get your beta HCG redrawn in 48 hours. Please follow-up closely with your OBGYN. Return to the emergency department if you develop worsening abdominal pain, fever, lightheadedness or other concerning symptoms. I have also sent antibiotics For UTI to the pharmacy, please take these as directed. Please begin taking [id number] vitamins. <Marcella Pierre PA-C - Last Filed: 02/21/24 01:47 CDT> Prescriptions: New cephalexin 500 mg capsule 500 mg PO Q6H Qty: 28 0RF No Action atorvastatin 20 mg tablet montelukast 10 mg tablet 10 mg DIRECTED spironolactone 50 mg tablet escitalopram oxalate 20 mg tablet 20 mg DIRECTED Mounjaro 2.5 mg/0.5 mL pen injector SUBCUT amoxicillin-pot clavulanate 875-125 mg tablet 1 tablet PO Q12H 7 Days Qty: 14 0RF fluconazole 150 mg tablet 150 mg PO ONCE Qty: 1 0RF Rx Instructions: as a single dose benzonatate 200 mg capsule 200 mg PO TID PRN (Reason: cough) Qty: 20 0RF metformin 500 mg Tablet 500 mg PO BID Qty: 60 0RF <Marcella Pierre PA-C - Last Filed: 02/21/24 01:47 CDT> Other Ambulatory Orders: Beta HCG Quantitative (Routine) Timeframe: 2 Days Location: Determined by Patient Ordered By: Marcella Pierre <Marcella Pierre PA-C - Last Filed: 02/21/24 01:47 CDT> Follow-up/Referrals: Dante Aponte MD [Physician] - 1 Day PHYSICIAN,VALVE AND REGULATOR REPAIRER [Primary Care Provider] - Marcella Pierre PA-C [Emergency Provider] - <Marcella Pierre PA-C - Last Filed: 02/21/24 01:47 CDT>
[2024-02-20 20:32] LABS: Basophils Percent Auto 0.3 % (0.2-1.2); Eosinophils Absolute Auto 0.1 K/mm3 (0-0.3); Eosinophils Percent Auto 0.7 % (0-4.4); Hematocrit 37.5 % (37.0-47.0); Hemoglobin 12.8 g/dL (12.0-15.0); Immature Granulocyte Absolute 0.02 K/mm3 (0.00-0.031); Immature Granulocyte Percent A 0.2 % (0-0.5); Lymphocytes Absolute Auto 4.11 K/mm3 (0.9-3.2); Lymphocytes Percent Auto 38.5 % (18.3-44.2); Mean Corpuscular HGB Conc 34.1 g/dl (32-36); Mean Corpuscular Volume 87.8 fl (80-100); Mean Platelet Volume 10.7 fl (7.4-10.4); Monocytes Absolute Auto 0.7 K/mm3 (0.1-0.6); Monocytes Percent Auto 6.4 % (2.6-8.5); Neutrophils Absolute Auto 5.8 K/mm3 (1.3-6.7); Neutrophils Percent Auto 53.9 % (45.5-73.1); Platelet Count Result 345 k/mm3 (150-375); Red Blood Count 4.27 M/mm3 (4.2-5.4); Red Cell Distribution Width 13.3 % (11.5-14.5); White Blood Count 10.7 K/mm3 (4.5-10.0)
[2024-02-20 20:42] LABS: Alanine Aminotransferase 17 U/L (6-35); Albumin Level 4.1 g/dL (3.5-5.1); Alkaline Phosphatase 70 U/L (38-126); Anion Gap 7 mmol/L (4-12); Aspartate Amino Transferase 22 U/L (14-36); Bilirubin,Total 0.1 mg/dL (0.2-1.3); Blood Urea Nitrogen 14 mg/dL (7-17); Carbon Dioxide 30 mmol/L (22-30); Chloride 101 mmol/L (98-107); Estimated CRCL calculation 121 ml/min; Estimated Glomerular Filt Rate > 60; Glucose 116 mg/dL (65-110); Lipase 189 U/L (23-300); Potassium 3.8 mmol/L (3.4-5.0); Sodium 138 mmol/L (137-145)
[2024-02-20 22:18] LABS: BEDSIDEPREGUCG Positive (Negative)
[2024-02-20 22:25] LABS: Add Urine Microscopic? YES; Appearance Urine Clear (Clear); Bacteria Urine None Seen /hpf; Bilirubin Urine Negative (Negative); Blood Urine Negative (Negative); Color Urine Yellow (Yellow); Glucose Urine UA Negative (Negative); Ketones Urine Negative (Negative); Leukocyte Esterase Ur 2+ LEU/UL (Negative); Nitrate Urine Negative (Negative); Non Pathogenic Casts 0-2; Protein Urine Negative (Negative); RBC Urine 0-2 /hpf (0-2); Specific Grav Ur 1.013 (1.001-1.035); Squamous Epithelial Cell Urine None Seen /hpf (Few); Urobilinogen Urine 0.2 mg/dL (<2.0); pH Urine 6.5 (5.0-9.0)
[2024-02-21] MEDS: CEPHALEXIN 500 MG CAPSULE PO (01:52)
== END 2024-02-21 01:48 | disposition home or self-care (01) ==
PROVIDERS: Emergency Provider Physician Assistant
DX: O23.11 Infections of bladder in pregnancy, first trimester (principal); N30.00 Acute cystitis without hematuria; O24.111 Pre-existing type 2 diabetes mellitus, in pregnancy, first trimester; E11.9 Type 2 diabetes mellitus without complications; O99.341 Other mental disorders complicating pregnancy, first trimester; F41.9 Anxiety disorder, unspecified; Z3A.01 Less than 8 weeks gestation of pregnancy; Z79.85 Long-term (current) use of injectable non-insulin antidiabetic drugs; Z79.84 Long term (current) use of oral hypoglycemic drugs; Z79.899 Other long term (current) drug therapy
CPT/HCPCS: 36415; 76830; 76856; 80053; 81001; 81025; 83690; 84702; 85025; 87086; 99284; A9270

== ENCOUNTER 2024-07-04 17:53 | Observation (INO) | payer OTHER, MEDICAID, SELFPAY ==
[2024-07-04] VITALS (11 sets, daily range): BP systolic 106–117; BP diastolic 58–72; PULSE 25–88; O2SAT 80–100; BMI 37.8
--- NOTE | 2024-07-04 18:22 | OBADM ---
This patient, Yasmeen Ny, admitted to the OB room [facility] for observation. Patient/family oriented to hospital policies and general routines including ID bracelet, bed and alarms, visiting hours, pain management, procedures, bathroom and other care routines, personal items, smoking policy, room service/diet, and visiting hours. Patient/Family are encouraged to report perceived risks to care and to ask questions if they do not understand what they are told or what they should do.
--- NOTE | 2024-07-04 18:23 | PC.NURSE ---
Addendum entered by Tracey Johnson RN 07/04/24 18:39: Pt states she has a hx of UTI's and denies any hx of STI's Original Note: Pt is a presents to L&D with complaints of sharp lower right quadrant pain that radiants to lower right back. Pt states that since approx 1700 today, it has started to burn upon urination. Pt has a hx of GDM2, pt states latest blood sugar was 113 per her dexcom. Pt states she saw had an ultrasound last week and baby was good . Pt denies any LOF or vaginal bleeding. Pt denies having sex within the past 24 hours and has positive movement.
[2024-07-04 18:46] LABS: Add Urine Microscopic? YES; Appearance Urine Clear (Clear); Bacteria Urine Rare /hpf; Bilirubin Urine Negative (Negative); Blood Urine 1+ (Negative); Color Urine Yellow (Yellow); Glucose Urine UA Negative (Negative); Ketones Urine Negative (Negative); Leukocyte Esterase Ur 3+ LEU/UL (Negative); Need Manual Microscopic Reviewed; Nitrate Urine Negative (Negative); Non Pathogenic Casts 0-2; Protein Urine Negative (Negative); RBC Urine 0-2 /hpf (0-2); Specific Grav Ur 1.003 (1.001-1.035); Squamous Epithelial Cell Urine None Seen /hpf (Few); Urobilinogen Urine 0.2 mg/dL (<2.0); WBC Urine 51-100 /hpf (0-3); pH Urine 6.5 (5.0-9.0)
[2024-07-04 18:52] LABS: Glucose Point of Care 109 mg/dl (65-105)
--- OUTSIDE RECORDS SUMMARY | 2024-07-04 19:08 | XMS_ITS | Clinical Summary ---
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 Gender Identity Not on file Sexual Orientation Not on file Plan of Treatment Health Maintenance Due Date Last Done Comments Hepatitis C Virus (HCV) Screening 1989 Hepatitis B Immunization (1 of 3 - 19+ 3-dose series) 2008 Pap Smear 2010 Cervical Cancer Screening (CCS) 12/26/2019 HPV/Cotest 12/26/2019 Influenza Immunization (#1) 12/20/202303/21, 02/04/2019, 01/18/2018, Additional history exists SARS-COV-2 Immunization (2023- season) 2023 Respiratory Syncytial Virus (RSV) Immunization (Adult) (1 - 1-dose 75+ series) 2064 Pneumococcal Immunization Combined Aged Out 07/02/2018 No longer eligible based on patient's age to complete this topic DTaP/Tdap/Td Immunization Discontinued 04/16/2020, TdaP Immunization Completed 04/16/2020, 01/02/2015 Meningococcal Immunization (ACWY) Aged Out No longer eligible based on patient's age to complete this topic Rotavirus Immunization Aged Out No lo nger eligible based on patient's age to complete this topic
--- OUTSIDE RECORDS SUMMARY | 2024-07-04 19:08 | XMS_ITS | Encounter Summary ---
Author Organization [facility] Address [address] [place] [address] Care Team Providers Care Chief Executive Name Role Phone Chuck Nelson DIRECTOR SOFTWARE QUALITY ASSURANCE-ARBORIST CLIMBER Primary Care Pro vider Reason for Visit * Reason Onset Date Comments MEDICATION REFILL 05/23/2024 Encounter Details Date Type Department Care Team (Late st Contact Info) Description 05/23/2024 Refill [facility] MATERNAL/ EVALUATION UNIT [address] [place] [id number] Luana Plummer MD [address] [facility] [place] [address] MEDICATION REFILL Social History Tobacco Use Types Packs/Day Years Used Date Smoking Tobacco: Never Smokeless Tobacco: Never Alcohol Use Standard Drinks/Week Comments Not Currently 0 (1 standard drink = 0.6 oz pur e alcohol) Overall Financial Resource Strain (CARDIA) Answe r Date Recorded How hard is it for you to pa y for the very basics like food, housing, medical care, and heating? Not hard at all 02/24/2024 [facility] - Occupational Stress Questionnaire Answer Date Recorded Do you feel stress - tense, restless, nervous, or anxious, or unable to sleep at night because your mind is troubled all the time - these days? Only a little 02/24/2024 Hunger Vital Sign Answer Date Recorded Within the past 12 months, y ou worried that your food would run out before you got the money to buy more. Never true 02/24/20 24 Within the past 12 months, t he food you bought just didn't last and you didn't have money to get more. Never true 02/24/2024 PRAPARE - Transportation Answer Date Re corded In the past 12 months, has l ack of transportation kept you from medical appointments or from getting medications? No 09/2023 In the past 12 months, has l ack of transportation kept you from meetings, work, or from getting things needed for daily living? No 02/24/[address] Depression Scale Answer Date Recorded [address] Depression Scale Total 1 03/01/2024 The thought of harming myself has occurred to me . Never 03/01/2024 Housing Stability Vital Sign Answer Terrence e Recorded In the last 12 months, was t here a time when you were not able to pay the mortgage or rent on time? No 02/24/2024 Number of Times Moved in the Last Year Not on fi le 02/24/2024 At any time in the past 12 m [facility], were you homeless or living in a custodial (including now)? Yes 02/24/2024 Estimated Date of Delivery Comme nts Yes 10/19/2024 Based on last me nstrual period of 01/13/2024 Sex and Gender Information Value Date Recorded Sex Assigned at Not on file Gender Identity Not on file Sexual Orientation Not on file documented as of this encounter Plan of Treatment Upcoming Encounters Date Type Department Care Team (Late st Contact Info) Description 07/12/2024 2:30 PM CDT Appointment [facility] MATERNAL/ EVALUATION UNIT [address] [place] [address] 07/20/2024 1:45 PM CDT Appointment [facility] - [facility] [address] [facility] [place] [phone] Moe Blackwell MD [address] [facility] [address] [place] [address] 07/20/2024 1:45 PM CDT Appointment [facility] - Cardiology [address] [place] [phone] Sandy Perez MD [address] [place] [address] 07/26/2024 2:15 PM CDT Appointment [facility] MATERNAL/ EVALUATION UNIT [address] [place] [address] documented as of this encounter Visit Diagnoses Diagnosis Pre-existing type 2 diabetes mellitus during , antepartum (HCC) documented in this encounter Care Teams Chief Executive Relationship Specialty Start Date End Date Chuck Nelson APRN-EMILY [address] [phone] PCP - General Nurse Practitioner 08/25/22 documented as of this encounter
--- OUTSIDE RECORDS SUMMARY | 2024-07-04 19:08 | XMS_ITS | Patient Health Summary ---
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 This disclosure is being madepursuant to the Care Everywhere program and may not contain all information available regarding this patient. Last updated 18.[facility] Allergies * Lisinopril(Rash) -Medium Criticality * Shellfish Allergy(Rash) -Medium Criticality Medications * Be aware that medications may not be up to date on this document. Alwaysverify current medications with the patient. * metFORMIN (GLUCOPHAGE) 1000 MG tablet Take 2 (two) tablets by mouth 2 times daily with morning and evening meal Reasons: Type 2 Diabetes * escitalopram (Lexapro) 20 MG tablet Take 1 (one) tablet by mouth once daily * Blood Glucose Monitoring Suppl (OneTouch Verio) w/Device KIT(Started 03/01/2024) Use 1 Each as directed * blood glucose (OneTouch Verio) test strip(Started 03/01/2024) To monitor blood glucose (sugar) 4x daily- fasting and 1 hour after meals 5 refills by 03/01/2025 * Lancets (ONETOUCH DELICA PLUS 33G EXTRA FINE LANCET)(Started 03/01/2024) To monitor blood glucose (sugar) 4x daily- fasting and 1 hour after meals 5 refills by 03/01/2025 * Vit-Fe Fumarate-FA ( ONE DAILY PO) * Glucagon (Baqsimi One Pack) 3 MG/DOSE POWD(Started 03/15/2024) [place] 1 Each into the nose as needed * Continuous Glucose Sensor (CLEARcom G7 Sensor) [facility]Started 03/22/2024) Use 1 Each Continuous for 10 days 5 refills by 03/22/2025 * triamcinolone acetonide (Kenalog) 0.1 % cream APPLY CREAM EXTERNALLY TO AFFECTED AREA TWICE DAILY FOR 90 DAYS FOR DERMATITIS * montelukast (Singulair) 10 MG tablet TAKE 1 TABLET BY MOUTH ONCE DAILY FOR ALLERGIES * hydrOXYzine HCl (Atarax) 25 MG tablet Take 1 (one) tablet by mouth 3 times daily * fluticasone propionate (Flonase) 50 MCG/ACT nasal spray USE 1 SPRAY(S) IN EACH NOSTRIL ONCE DAILY * aspirin EC (Ecotrin) 81 MG tablet(Started 04/05/2024) Take 2 (two) tablets by mouth once daily 1 refill by 04/05/2025 * Insulin Pen Needle (TechLite Pen [place]) 32G X 4 MM [facility](Started 04/15/2024) Use 1 Each 5 times daily 5 refills by 04/15/2025 * Vit-Fe Fumarate-FA (M- Plus) 27-1 MG TABS(Started 06/08/2024) Take 1 tablet by mouth once daily for 30 doses 1 refill by 06/08/2025 * hydrocortisone (Hytone) 1 % ointment(Started 06/08/2024) Apply to affected area 4 times daily for 30 days 1 refill by 06/08/2025 * insulin glargine (Lantus/Semglee) 100 units/mL pen(Started 06/08/2024) Inject 14 units in the morning and 14 units at bedtime. Take dosages approximately 12 hours apart. Increase dose as directed due to increasing insulin requirements during . Max total daily dose = 50u 5 refills by 06/08/2025 * insulin lispro (HumaLOG;ADMelog) 100 UNIT/ML pen(Started 06/15/2024) Inject 6u before small meals (<30g), 10 units before medium meals (30-45g), and 14u before largemeals (>60g). Inject 0-15 minutes before meals. Increase dose as directed during . Max total daily dose = 50 units. 5 refills by 06/15/2025 * fluconazole (Diflucan) 150 MG tablet(Started 06/28/2024) Take 1 (one) tablet by mouth once daily Ended Medications* insulin glargine (Lantus/Semglee) 100 units/mL pen(Started 04/05/2024)(Discontinued) Inject 10 units in the morning and 10 units at bedtime. Take dosages approximately 12 hours apart. Increase dose as directed due to increasing insulin requirements during . Max total daily dose = 50u 5 refills by 04/05/2025 * insulin lispro (HumaLOG;ADMelog) 100 UNIT/ML pen(Started 05/24/2024) (Discontinued) Inject 6u before small meals (<30g), 8 units before medium meals (30-45g), and 10u before large meals (>60g). Inject 0-15 minutes before meals. Increase dose as directed during . Max total daily dose = 50 units. 5 refills by 05/24/2025 * insulin lispro (HumaLOG;ADMelog) 100 UNIT/ML pen(Started 06/08/2024) (Discontinued) Inject 6u before small meals (<30g), 8 units before medium meals (30-45g), and 12u before large meals (>60g). Inject 0-15 minutes before meals. Increase dose as directed during . Max total daily dose = 50 units. 5 refills by 06/08/2025 Active Problems Problem Noted Date Diagnosed Date Encounter for anatomic survey 05/31/2024 Obesity affecting 04/26/2024 Cholelithiasis without obstruction 04/20/2023 Type 2 diabetes mellitus 08/25/2022 Frequent headaches 05/02/2020 History of PCOS 03/19/2020 High risk , antepartum 03/19/2020 Pre-existing type 2 diabetes mellitus during , antepartum 03/13/2020 Generalized anxiety disorder 10/14/2019 Mixed hyperlipidemia 07/02/2018 Metabolic syndrome X 11/16/2013 PCOS (polycystic ovarian syndrome) 11/16/2013 Resolved Problems Problem Noted Date Diagnosed Date Resolved Date Steatosis of liver 04/14/2023 Varicose veins of lower extr emity with inflammation 05/01/2022 04/05/2024 Allergy to fish 02/06/2022 04/05/2024 Vitamin D deficiency 11/04/2021 024 Abnormal cervical Papanicolaou smear 11/09/2019 04/05/2024 Immunizations * Covid Pfizer primary Monovalent 12+ yr 0.3ml(Given 06/05/2021, 05/15/2021) * Covid Pfizer primary monovalent 12+ yr 0.3mL Purple cap(Given 06/05/2021, 05/15/2021) * Human Papilloma Virus Ninevalent Vaccine(Given 09/03/2023, 04/21/2023, 03/09/2023) * INFLUENZA VACCINE(Given 01/30/2022) * INFLUENZA VACCINE, QUADR. (AFLURIA, FLUZONE QUADRIVALENT; 6MO+) (IIV4)(Given 01/18/2018, 12/29/2016, 12/20/2015) * INFLUENZA VACCINE, QUADR. (FLUZONE; FLULAVAL; FLUARIX; AFLURIA QUADRIVALENT; 6MO+), 0.5 ML (IIV4)(Given 02/05/2023, 04/16/2020, 02/04/2019, 01/18/2015) * INFLUENZA VACCINE, TRIV. (FLUZONE; FLULAVAL; FLUARIX; AFLURIA TRIVALENT; 6MO+), 0.5 ML (IIV3)(Given 03/01/2024) * PNEUMOCOCCAL PPV VACCINE(Given 07/02/2018) * TDAP, HISTORIC VACCINE(Given 04/16/2020, 01/02/2015) Social History Tobacco Use Types Packs/Day Years [...] and heating? Not hard at all 02/24/2024 [facility] - Occupational Stress [...] things needed for daily living? No 02/24/2024 [place] Depression Scale Answer Date Recorded [place] Depression Scale Total 1 03/01/2024 The thought [...] any time in the past 12 m [facility], were you homeless or living in a jail (including now)? Yes 02/24/2024 Estimated Date of Delivery Comme nts Yes 10/19/2024 Based on last me nstrual period of 01/13/2024 Sex and Gender Information Value Date Recorded Sex Assigned at Not on file Gender Identity Not on file Sexual Orientation Not on file Last Filed Vital Signs Vital Sign Reading Time Taken Comments Blood Pressure 117/81 06/28/2024 3:13 PM CDT Pulse 87 06/28/2024 3:13 PM CDT Temperature 36.6 C (97.8 F) 02/28/2024 2:00 PM STAVE JOINTER Respiratory Rate 18 03/15/2024 3:40 PM STAVE JOINTER Oxygen Saturation 98% 02/28/2024 5:00 PM STAVE JOINTER Inhaled Oxygen Concentration - - Weight 103.4 kg (228 lb) 06/28/2024 3:13 PM CDT Height 162.6 cm (5' 4 ) 06/08/2024 12:59 PM STAVE JOINTER Body Mass Index 39.14 06/08/2024 12:59 PM STAVE JOINTER Procedures * WET PREP SMEAR - POINT OF CARE (IP)(Performed 06/28/2024) Performed for Vaginitis affecting in second trimester, antepartum ([facility]) * TRICHOMONAS VAGINALIS COLLINS(Performed 06/28/2024) Performed for Vaginitis affecting in second trimester, antepartum ([facility]) * CHLAMYDIA AND N. GONORRHOEAE COLLINS(Performed 06/28/2024) Performed for Vaginitis affecting in second trimester, antepartum ([facility]) * URINALYSIS - POCT (IP) BEAKER INTERFACE(Performed 06/28/2024) * SONOGRAM - COMPLETE(Performed 06/28/2024) * URINALYSIS - POCT (IP) BEAKER INTERFACE(Performed 06/15/2024) * HEMOGLOBIN A1C(Performed 06/08/2024) Performed for Type 2 diabetes mellitus with hyperglycemia, unspecified whether half-way insulin use ([facility]) * GLUCOSE - POINT OF CARE(Performed 06/08/2024) * EKG 12-LEAD(Performed 06/08/2024) Performed for Morbid obesity with BMI of 40.0-44.9, adult ([facility]) * URINALYSIS - POCT (IP) BEAKER INTERFACE(Performed 06/08/2024) * SONOGRAM - COMPLETE(Performed 05/31/2024) * URINALYSIS - POCT (IP) BEAKER INTERFACE(Performed 05/10/2024) * URINALYSIS - POCT (IP) BEAKER INTERFACE(Performed 04/26/2024) * FIRST TRI NUCHAL TRANSLUCENCY W:SEQ SCREEN(Performed 04/05/2024) Performed for Type 2 diabetes mellitus with other specified complication, with long-term current use of insulin ([facility]) * URINALYSIS - POCT (IP) BEAKER INTERFACE(Performed 04/05/2024) * ANEUPLOIDY SCREENING(Performed 04/05/2024) * URINALYSIS - POCT (IP) BEAKER INTERFACE(Performed 03/22/2024) * SONOGRAM - COMPLETE(Performed 03/15/2024) * GLUCOSE - POINT OF CARE(Performed 03/09/2024) * URINALYSIS - POCT (IP) BEAKER INTERFACE(Performed 03/09/2024) * TRICHOMONAS VAGINALIS AMPLIFIED PROBE(Performed 03/01/2024) Performed for Supervision of high-risk of young primigravida ([facility]) * CHLAMYDIA + GC AMPLIFIED PROBE(Performed 03/01/2024) Performed for Supervision of high-risk of young primigravida ([facility]) * PAP IG LB+HPV APTIMA(Performed 03/01/2024) Performed for Supervision of high-risk of young primigravida ([facility]) * TYPE + SCREEN PANEL(Performed 03/01/2024) Performed for Pre-existing type 2 diabetes mellitus during , antepartum ([facility]), Supervisionof high-risk of young primigravida ([facility]) * RUBELLA ANTIBODY IGG(Performed 03/01/2024) Performed for Pre-existing type 2 diabetes mellitus during , antepartum ([facility]), Supervisionof high-risk of young primigravida ([facility]) * SYPHILIS ANTIBODY CASCADING REFLEX(Performed 03/01/2024) Performed for Pre-existing type 2 diabetes mellitus during , antepartum ([facility]), Supervisionof high-risk of young primigravida ([facility]) * CBC W AUTO DIFFERENTIAL(Performed 03/01/2024) Performed for Pre-existing type 2 diabetes mellitus during , antepartum ([facility]), Supervisionof high-risk of young primigravida ([facility]) * HEPATITIS B SURFACE ANTIGEN W RFLX CONFIRMATION(Performed 03/01/2024) Performed for Pre-existing type 2 diabetes mellitus during , antepartum ([facility]), Supervisionof high-risk of young primigravida ([facility]) * VARICELLA ZOSTER ANTIBODY IGG(Performed 03/01/2024) Performed for Supervision of high-risk of young primigravida ([facility]) * HEMOGLOBIN A1C(Performed 03/01/2024) Performed for Type 2 diabetes mellitus with stage 1 chronic kidney disease, with long-term current use of insulin ([facility]) * PROTEIN CREATININE RATIO URINE RANDOM PNL(Performed 03/01/2024) Performed for Pre-existing type 2 diabetes mellitus during , antepartum ([facility]), Supervisionof high-risk of young primigravida ([facility]) * HIV-1 HIV-2 ANTIBODY + HIV P24 AG PANEL(Performed 03/01/2024) Performed for Pre-existing type 2 diabetes mellitus during , antepartum (HCC), Supervisionof high-risk of young primigravida (HCC) * HEPATITIS C ANTIBODY(Performed 03/01/2024) Performed for Pre-existing type 2 diabetes mellitus during , antepartum (HCC), Supervisionof high-risk of young primigravida (HCC) * HEPATITIS B SURFACE ANTIGEN W RFLX CONFIRMATION(Performed 03/01/2024) Performed for Pre-existing type 2 diabetes mellitus during , antepartum (HCC), Supervisionof high-risk of young primigravida (HCC) * FERRITIN(Performed 03/01/2024) Performed for Pre-existing type 2 diabetes mellitus during , antepartum (HCC), Supervisionof high-risk of young primigravida (HCC) * URINALYSIS - POCT () BEAKER INTERFACE(Performed 03/01/2024) * SONOGRAM - COMPLETE(Performed 03/01/2024) * US OB LESS 14 WKS W TRANSV W DOPP(Performed 02/28/2024) Performed for Pelvic pain in female * URINALYSIS REFLEX MICROSCOPIC REFLEX CULTURE(Performed 02/28/2024) * BLOOD TYPE VERIFICATION(Performed 02/28/2024) * TYPE + SCREEN PANEL(Performed 02/28/2024) * HCG BETA BLOOD QUANTITATIVE(Performed 02/28/2024) * COMPREHENSIVE METABOLIC PANEL(Performed 02/28/2024) * CBC W AUTO DIFFERENTIAL(Performed 02/28/2024) * HCG BETA BLOOD QUANTITATIVE(Performed 02/26/2024) Performed for Other ectopic , unspecified whether intrauterine present ([facility]) * HCG BETA BLOOD QUANTITATIVE(Performed 02/24/2024) Performed for Other ectopic , unspecified whether intrauterine present (HCC) * SONOGRAM - COMPLETE(Performed 02/24/2024) Performed for Encounter to establish gestational age using ultrasound ([facility]) * BIOPHYSICAL PROFILE W NST(Performed 05/18/2020) Performed for Pre-existing type 2 diabetes mellitus during , antepartum (HCC), Morbid obesity with BMI of 40.0-44.9, adult ([facility]), Supervision of high- risk of young primigravida (HCC) * BIOPHYSICAL PROFILE W NST(Performed 05/11/2020) Performed for Pre-existing type 2 diabetes mellitus during , antepartum (HCC), Morbid obesity with BMI of 40.0-44.9, adult ([facility]), Supervision of high- risk of young primigravida ([facility]) * BIOPHYSICAL PROFILE W NST(Performed 05/04/2020) Performed for Pre-existing type 2 diabetes mellitus during , antepartum ([facility]), Morbid obesity with BMI of 40.0-44.9, adult ([facility]), Supervision of high- risk of young primigravida ([facility]) * SONOGRAM - COMPLETE(Performed 04/25/2020) Performed for Morbid obesity with BMI of 40.0-44.9, adult ([facility]), Supervision of high-risk pregnancyof young primigravida ([facility]), Pre-existing type 2 diabetes mellitus during , antepartum ([facility]) * ECHO CONSULT - (Performed 04/19/2020) Performed for Pre-existing type 2 diabetes mellitus during , antepartum ([facility]) * SONOGRAM - COMPLETE(Performed 04/16/2020) Performed for Morbid obesity with BMI of 40.0-44.9, adult ([facility]), Supervision of high-risk pregnancyof young primigravida ([facility]), Pre-existing type 2 diabetes mellitus during , antepartum ([facility]) * SONOGRAM - COMPLETE(Performed 03/21/2020) Performed for Pre-existing type 2 diabetes mellitus during , antepartum ([facility]), Morbid obesity with BMI of 40.0-44.9, adult ([facility]), Supervision of high- risk of young primigravida ([facility]) Results * (ABNORMAL) WET PREP SMEAR - POINT OF CARE (IP) (06/28/2024 4:19 PM CDT) Clue Cells (Wet Smear) Absent Absent [facility] POCT TESTING Yeast (Wet Smear) Present(A) Absent [facility] POCT TESTING Trichomonas Wet Prep POCT Absent Absent [facility] POCT TESTING WBC (Wet Smear) Absent Absent [facility] POCT TESTING pH Wet Smear [facility] PO CT TESTING Other VAGINAL SWAB / Unknown 06/28/2024 4:19 PM CDT Lino Lombardo MD LAB - POINT OF CARE ORDERABLES [facility] POCT TESTING [address] [place], [place] [address] [phone] * TRICHOMONAS VAGINALIS COLLINS (06/28/2024 4:15 PM CDT) Trichomonas by COLLINS NEGATIVE NEGATIVE 06/29/2024 1:38 PM CDT [facility] Microbiology (Endocervix - Swab) Collection / Unknown 06/28/2024 4:15 PM CDT 06/28/2024 4:22 PM CDT Lino Lombardo MD LAB - MICROBIOL OGY ORDERABLES [facility] [address] [place] [address], [facility] [phone] * CHLAMYDIA AND N. GONORRHOEAE COLLINS (06/28/2024 4:15 PM CDT) Chlamydia by COLLINS NEGATIVE NEGATIVE 06/29/2024 1:38 PM CDT [facility] Neisseria gonorrhoeae COLLINS NEGATIVE NEGATIVE 06/29/2024 1:38 PM CDT [facility] Microbiology (Endocervix - Swab) Collection / Unknown 06/28/2024 4:15 PM CDT 06/28/2024 4:22 PM CDT Lino Lombardo MD LAB - MICROBIOL OGY ORDERABLES Performing Organization Address City/[facility]/ZIP Co de Phone Number [facility] [address] [place] [address], [facility] [phone] * (ABNORMAL) URINALYSIS - POCT (IP) BEAKER INTERFACE (06/28/2024 3:13 PM CDT) Only the most recent of9 resultswithin the time period is included. Color UA POCT Yellow Straw, Yellow, Dark Yellow, Light Yellow 06/28/2024 3:15 PM CDT [facility] Clarity UA POCT Clear Clear 3:15 PM CDT [facility] Specific [place] UA POCT >=1.030 1.005 - 1.030 06/28/2024 3:15 PM CDT [facility] pH UA POCT 5.5 5.0 - 8.0 pH 06/28/2024 3:15 PM CDT [facility] Protein UA POCT Trace(A) Negative 3:15 PM CDT [facility] Blood UA POCT Negative Negative 06/28/2024 3:15 PM CDT [facility] Leukocyte UA POCT Negative Negative 06/28/2024 3:15 PM CDT [facility] Nitrite UA POCT Negative Negative 3:15 PM CDT [facility] Glucose UA POCT Negative Negative 3:15 PM CDT [facility] Ketone UA POCT Trace(A) Negative 06/28/2024 3:15 PM CDT [facility] Bilirubin UA POCT Negative Negative 06/28/2024 3:15 PM CDT [facility] Urobilinogen UA POCT 0.2 0.1 - 1.0 EU/dL 06/28/2024 3:15 PM CDT [facility] Urine URINE / Unknown 06/28/2024 3 :13 PM CDT 06/28/2024 3:15 PM CDT Eduar Hernandez MD LAB - POINT OF CARE ORDERABLES Performing Organization Address City/State/[facility] Co de Phone Number [facility] [address] [place], [place] [phone] * SONOGRAM - COMPLETE (06/28/2024 2:29 PM CDT) Only the most recent of8 resultswithin the time period is included. Linked Results Indication ======== anatomy survey Diabetes mellitus, type II Obesity, Class II History ====== OB History 2. Para 1 [id number] Lab Tests Test Date Result NIPT 04/05/2024 Low risk, Female Maternal Assessment Physical Exam Height 163 cm, 5 ft 4 in. Weight 103 kg, 228 lb. Initial weight 89 kg, 196 lb. BMI 39.14 kg/m . Initial BMI 33.64 kg/m . Weight gain 15 kg, 32 lb Method ====== Transabdominal ultrasound. View: Sufficient ========= Valderrama . Number of fetuses: 1 Dating ====== Date Details Gest. age JEFF LMP 01/13/2024 Cycle: regular cycle 23 w + 6 d 10/19/2024 Stated JEFF 23 w + 6 d 10/19/2024 U/S 06/28/2024 based upon AC, BPD, Femur, HC 24 w + 0 d 10/18/2024 Assigned dating based on the LMP, selected on 03/15/2024 23 w + 6 d 10/19/2024 General Evaluation Cardiac activity present. FHR 156 bpm. Presentation: cephalic Placenta: Placental site: posterior , left lateral Umbilical cord: Cord vessels: 3 vessel cord. Insertion site: marginal insertion Amniotic fluid: Amount of AF: normal. MVP 7.5 cm Biometry BPD 60.6 mm 24w 5d 73% Hadlock HC 221.3 mm 24w 1d 44% Hadlock AC 192.7 mm 24w 0d 45% Hadlock Femur 41.1 mm 23w 2d 22% Hadlock Humerus 38.8 mm 23w 5d 36% Nell HC / AC 1.15 Weight Calculation: EFW 629 g 38% Hadlock EFW (lb,oz) 1 lb 6 oz EFW by Hadlock ([id number]) appropriate Growth Overview Exam date GA BPD (mm) HC (mm) AC (mm) FL (mm) HL (mm) EFW (g) 05/31/2024 19w 6d 45.2 42% 171.1 35% 151.9 63% 29.6 19% 29.9 53% 314 42% 06/28/2024 23w 6d 60.6 73% 221.3 44% 192.7 45% 41.1 22% 38.8 36% 629 38% Anatomy The following structures appear normal: Face Lips. Nose. Nasal bone. Heart / Thorax RVOT view. 1-dxhbqo-jomuhdw view. Situs. Aortic arch view. Bicaval view. Ductal arch view. Great vessels. Abdomen Stomach. Kidneys. Bladder. Spine Cervical spine. Thoracic spine. Lumbar spine. Sacral spine. Extremities / Skeleton Right arm. Feet. The following structures were documented previously: Head / Neck Cranium. Lateral ventricles. Choroid plexus. Midline falx. Cavum septi pellucidi. Cerebellum. Cisterna magna. Thalami. Nuchal fold. Face Profile. Orbits. Heart / Thorax 4-chamber view. LVOT view. 3-vessel view. Right lung. Left lung. Diaphragm. Abdomen Cord insertion. Bowel. Genitals. Extremities / Skeleton Hands. Left arm. Legs. sex: female. Impression ========= Single, live, intrauterine at 23w6d size is AGA Amniotic fluid volume: normal No major malformations were seen within the limitations of ultrasound Marginal placental cord insert is seen today Follow-up ======== Ultrasound in 4 weeks for growth Coding ====== Procedures [id number]: US Preg Uterus Follow Up We PACS Anatomical Region Laterality Modality Other 06/28/2024 2:29 PM CDT R Twin Aponte MD [facility] ORDERABLES * HEMOGLOBIN A1C (06/08/2024 1:59 PM STAVE JOINTER) Only the most recent of2 resultswithin the time period is included. Hemoglobin A1c 5.1 <5.7 % 06/08/2024 2:27 PM STAVE JOINTER [facility] Estimated Average Glucose 100 mg/dL 06/08/2024 2:27 PM STAVE JOINTER [facility] Blood BLOOD SPECIMEN / Unknown Venipuncture / Unknown 06/08/2024 1:59 PM STAVE JOINTER 06/08/2024 2:17 PM STAVE JOINTER Narrative [facility] - 06/08/2024 2:27 PM STAVE JOINTER HbA1c Interpretation: Normal: < 5.7% Pre-diabetes: 5.7-6.4% Diabetes: Equal to or greater than 6.5% Test results diagnostic of diabetes should be repeated for confirmation. Treatment target values recommended by ADA and other clinical organizations should be used to evaluate metabolic control in patients. This test should not replace glucose testing for patients with Type 1 diabetes, pediatric patients, or women. Falsely low HbA1c results may be observed in patients with clinical conditions that shorten erythrocyte life span or decrease mean erythrocyte age such as the presence of unstable hemoglobin variants, elevated hemoglobin F level or other causes of hemolytic anemia. HbA1c may not accurately reflect glycemic control when clinical conditions that affect erythrocyte survival are present. Severe Iron deficiency anemia may yield falsely high results. Hemoglobin A1c assay should not be used to diagnose or monitor diabetes in patients with malignancy, recent blood transfusion, chronic kidney or liver disease. This method may yield falsely low results when hemoglobin (HbF) exceeds 5% in the specimen. The Kite Pharmanity assay for the measurement of HbA1c is a National Glycohemoglobin Standardization Program (NGSP) certified method. Latanya Loomis MD LAB - CHEMISTRY TASHA FORRESTER Performing Organization Address City/[facility] Co de Phone Number [facility] [address] [place] [phone] * (ABNORMAL) GLUCOSE - POINT OF CARE (06/08/2024 1:49 PM STAVE JOINTER) Only the most recent of2 resultswithin the time period is included. [facility] Glucose WB/POC 61(L) 70 - 99 mg/dL 06/08/2024 1:55 PM STAVE JOINTER [facility] Specimen Type Cap Fingerstick 2024 1:55 PM STAVE JOINTER [facility] Blood BLOOD SPECIMEN / Unknown 06/08/2024 1:49 PM STAVE JOINTER 06/08/2024 1:55 PM STAVE JOINTER Dave Sevilla MD LAB - POINT OF CARE ORDERABLES Performing Organization Address [facility] Co de Phone Number [facility] [address] [place] [phone] * EKG 12-LEAD (06/08/2024 1:47 PM STAVE JOINTER) [facility] Ventricular Rate 91 BPM [facility] MUSE Atrial Rate 91 BPM [facility] MUSE P-R Interval 142 ms [facility] QRS Duration ms 86 ms [facility] Q-T Interval ms 362 ms [facility] QTC Calculation (Bezet) 445 ms [facility] MUSE Calculated P [place] 46 degrees [facility] MUSE Calculated R [place] -27 degrees [facility] MUSE Calculated T [place] 44 degrees [facility] M[facility] Interpretation EKG NORMAL SINUS RHYTHM POSSIBLE LEFT ATRIAL ENLARGEMENT POOR R WAVE PROGRESSION ABNORMAL ECG Confirmed by Stevan Eastman MD ([id number]) on 06/08/2024 1:05:43 PM [facility] MUSE 06/08/2024 1:47 PM STAVE JOINTER 06/08/2024 1:05 PM STAVE JOINTER Mary Sales MD ECG ORDERABLES [facility] MUSE * FIRST TRI NUCHAL TRANSLUCENCY W:SEQ SCREEN (04/05/2024 3:39 PM STAVE JOINTER) Linked Results Indication ======== Diabetes mellitus type II Class II Obesity Early anatomy- pending NIPT drawn 04/05/2024 History ====== OB History 2. Para 1 [id number] Maternal Assessment = Physical Exam Height 163 cm, 5 ft 4 in. Weight 95 kg, 209 lb. Initial weight 89 kg, 196 lb. BMI 35.88 kg/m . Initial BMI 33.64 kg/m . Weight gain 6 kg, 13 lb Method ====== Transabdominal ultrasound. View: limited secondary to challenging acoustic properties and by early gestational age ========= Valderrama . Number of fetuses: 1 Dating ====== Date Details Gest. age JEFF LMP 01/13/2024 11 w + 6 d 10/19/2024 Stated JEFF 11 w + 6 d 10/19/2024 U/S 04/05/2024 based upon CRL 11 w + 5 d 10/20/2024 Assigned dating based on the LMP, selected on 03/15/2024 11 w + 6 d 10/19/2024 General Evaluation Cardiac activity present Amniotic fluid: normal Biometry FHR 162 bpm CRL 50.0 mm 11w 5d 21% Hadlock appropriate Anatomy The following structures appear normal: Cranium. Neck. Arms. Legs. The following structures could not be adequately visualized: Stomach. Kidneys. Bladder. Spine. Impression ========= Single, live, intrauterine at 11w6d Follow-up ======== Follow up ultrasound in 8 weeks for detailed anatomy survey, growth and transvaginal cervical length Coding ====== Procedures 19797: Nuchal Translucency 73734: US Uterus Limited [facility] PACS Anatomical Region Laterality Modality Other 04/05/2024 3:39 PM STAVE JOINTER Eduar Hernandez MD [facility] ORDERABLES * ANEUPLOIDY SCREENING (04/05/2024) Trisomy 21 Low Risk Trisomy 18 Low Risk Trisomy 13 Low Risk Monosomy X Low Risk Triploidy/Hannah shing Twin NIPT Low Risk Deletion 22q11 (DiGeorge) Low Risk Blood BLOOD SPECIMEN / Unknown 04/05/2024 Narrative Elaine Sorenson RN - 04/11/2024 LOW RISK Predicted Sex: female Fraction: 7.9% Panorama - Vidal Screen Hard copy results available in Media. Dave Sevilla MD LAB - CHEMISTR Y ORDERABLES * TRICHOMONAS VAGINALIS AMPLIFIED PROBE (03/01/2024 4:36 PM STAVE JOINTER) Trichomonas vaginalis Amplified Probe Negative Negative 03/02/2024 12:09 AM STAVE JOINTER [facility] MICROBIOLOGY Microbiology ENTIRE ENDOCERVIX / Unknown Collection / Unknown 03/01/2024 4:36 PM STAVE JOINTER 03/01/2024 4:54 PM STAVE JOINTER Narrative [facility] - 03/02/2024 12:09 AM STAVE JOINTER Results based on detection/no detection of ribosomal RNA by amplified method. Lino Lombardo MD LAB - MICROBIOL OGY ORDERABLES [facility] [address] [place] [address], [facility] [phone] * CHLAMYDIA + GC AMPLIFIED PROBE (03/01/2024 4:36 PM STAVE JOINTER) Pathologist [facility] Chlamydia Amplified Probe Negative Negative 03/02/2024 12:09 AM STAVE JOINTER [facility] GC Amplified Probe Negative Negative 03/02/2024 12:09 AM STAVE JOINTER [facility] Microbiology ENTIRE ENDOCERVIX / Unknown Collection / Unknown 03/01/2024 4:36 PM STAVE JOINTER 03/01/2024 4:54 PM STAVE JOINTER Narrative [facility] - 03/02/2024 12:09 AM STAVE JOINTER Results based on detection/no detection of ribosomal RNA by amplified method. Lino Lombardo MD LAB - MICROBIOL OGY ORDERABLES Performing Organization Address [facility] Co de Phone Number [facility]CROBI[facility] [address] [place] [address], [facility] [phone] * SYPHILIS ANTIBODY CASCADING REFLEX (03/01/2024 4:35 PM STAVE JOINTER) Pathologist [facility] Treponema pallidum Antibody Non Reactive Non Reactive 03/01/2024 5:51 PM STAVE JOINTER [facility] Comment: No Laboratory evidence of syphilis infection. Note: Circulating antibodies may be low or undetectable in early infection. If recent exposure is suspected, re-draw sample in 2-4 weeks and repeat testing. Blood BLOOD SPECIMEN / Unknown Venipuncture / Unknown 03/01/2024 4:35 PM STAVE JOINTER 03/01/2024 4:53 PM STAVE JOINTER Lino Lombardo MD LAB - SEROLOGY ORDERABLES [facility] [address] [place] [address] * PAP IG LB+HPV APTIMA (03/01/2024 4:35 PM STAVE JOINTER) Diagnosis Comment 03/09/2024 5:09 PM STAVE JOINTER [facility] ([facility]) Comment:NEGATIVE FOR INTRAEP ITHELIAL LESION OR MALIGNANCY. Specimen Adequacy Comment 024 5:09 PM STAVE JOINTER [facility] ([facility]) Comment:Satisfactory for loida luation. No endocervical component is identified. Performed by Comment 03/09/2024 5:09 PM STAVE JOINTER [facility] ([facility]) Comment:Bharti Ocampo, Cytot echnologist (ASCP) Comment . 03/09/2024 5:09 PM STAVE JOINTER [facility] ([facility]) Note Comment 03/09/2024 5:09 PM STAVE JOINTER [facility] ([facility]) Comment: The Pap smear is a screening test designed to aid in the detection of premalignant and malignant conditions of the uterine cervix. It is not a diagnostic procedure and should not be used as the sole means of detecting cervical cancer. Both false-positive and false-negative reports do occur. IGLBP CPT Code Automation Comment 03/09/2024 5:09 PM STAVE JOINTER [facility] ([facility]) Comment: This liquid based ThinPrep(R) pap test was screened with the use of an image guided system. Human papillomavirus Aptima Negative Negative 03/09/2024 5:09 PM STAVE JOINTER [facility] ([facility]) Comment: This nucleic acid amplification test detects fourteen high-risk HPV types (16,18,31,33,35,39,45,51,52,56,58,59,66,68) without differentiation. Pathology/Cytolo gy PART OF UTERINE CERVIX / Unknown Collection / Unknown 03/01/2024 4:35 PM STAVE JOINTER 03/01/2024 4:54 PM STAVE JOINTER Narrative [facility] ([facility]) - 03/09/2024 5:09 PM STAVE JOINTER Performed at: 01 - [address] [id number] Brick Chimney Builder: Kaylee Torres MD, Phone: [phone] Performed at: 02 - [address] [id number] Brick Chimney Builder: Kaylee Torres MD, Phone: [phone] Specimen Comment: Source.............Cervix Specimen Comment: LMP / Prev Treat...[place] / BX Specimen Comment: No. of containers..01 ThinPrep Vial Lino Lombardo MD LAB - PATHOLOGY /CYTOLOGY ORDERABLES [facility] ([facility]) [address] [place] [address] * HIV-1 HIV-2 ANTIBODY + HIV P24 AG PANEL (03/01/2024 4:35 PM STAVE JOINTER) [facility] HIV1/2 Ab + P24 Ag Non Reactive Non Reactive 03/01/2024 5:51 PM STAVE JOINTER [facility] Blood BLOOD SPECIMEN / Unknown Venipuncture / Unknown 03/01/2024 4:35 PM STAVE JOINTER 03/01/2024 4:53 PM STAVE JOINTER Narrative [facility] - 03/01/2024 5:51 PM STAVE JOINTER No Laboratory evidence of HIV infection. Lino Lombardo MD LAB - CHEMISTRY ORDERABLES Performing Organization Address City/[facility] Co de Phone Number [facility] [address] [place] [address] * VARICELLA ZOSTER ANTIBODY IGG (03/01/2024 4:35 PM STAVE JOINTER) [facility] Varicella zoster Virus Antibody IgG Reactive Non Reactive 03/03/2024 5:09 AM STAVE JOINTER [facility] ([facility]) Comment: Please note reference interval change A Reactive result is considered evidence of immunity to VZV. Reactive indicates that VZV IgG was detected consistent with previous infection and/or vaccination. A Non Reactive result indicates that VZV IgG was not detected suggesting that immunity has not been acquired. Blood BLOOD SPECIMEN / Unknown Venipuncture / Unknown 03/01/2024 4:35 PM STAVE JOINTER 03/01/2024 4:53 PM STAVE JOINTER Narrative [facility] ([facility]) - 03/03/2024 5:09 AM STAVE JOINTER Performed at: [facility] [address] [place], [place] [id number] Brick Chimney Builder: Manny Lopez PhD, Phone: [phone] Mary Sales MD LAB - CHEMISTRY CINDYMavis MITZY [facility] ([facility]) [address] [place] [address] * (ABNORMAL) RUBELLA ANTIBODY IGG (03/01/2024 4:35 PM STAVE JOINTER) Rubella Antibody <0.90(L) Immune >0.99 index 03/03/2024 5:09 AM STAVE JOINTER [facility] ([facility]) Comment: Non-immune <0.90 Equivocal 0.90 - 0.99 Immune >0.99 Blood BLOOD SPECIMEN / Unknown Venipuncture / Unknown 03/01/2024 4:35 PM STAVE JOINTER 03/01/2024 4:53 PM STAVE JOINTER Narrative [facility] ([facility]) - 03/03/2024 5:09 AM STAVE JOINTER Performed at: - [address] [id number] Brick Chimney Builder: Manny Lopez PhD, Phone: [phone] Lnio Lombardo MD LAB - SEROLOGY ORDERABLES Performing Organization Address City/[facility]/ZIP Co de Phone Number [facility] ([facility]) [address] [place] [address] * TYPE + SCREEN PANEL (03/01/2024 4:35 PM STAVE JOINTER) Only the most recent of2 resultswithin the time period is included. ABO Rh A POS 03/01/2024 5:51 PM STAVE JOINTER [facility] Comment:History checked. Antibody Screen NEG 5:51 PM STAVE JOINTER [facility] LAB Blood Bank BLOOD SPECIMEN / Unknown Venipuncture / Unknown 03/01/2024 4:35 PM STAVE JOINTER 03/01/2024 4:53 PM STAVE JOINTER Lino Lombardo MD LAB - BLOOD BAN K ORDERABLES [facility] [address] [phone] * CBC W AUTO DIFFERENTIAL (03/01/2024 4:[address] [facility]) Only the most recent of2 resultswithin the time period is included. WBC 10.2 4.0 - 10.7 x10E9/L 03/01/2024 5:00 PM [facility] RBC Count 4.40 3.90 - 5.20 x10E12/L 03/01/2024 5:00 PM [facility] Hemoglobin 12.9 11.9 - 15.8 g/dL 03/01/2024 5:00 PM [facility] Hematocrit 38.0 34.8 - 46.1 % 03/01/2024 5:00 PM [facility] MCV 86.4 80.0 - 98.0 fL 03/01/2024 5:00 PM [facility] MCH 29.3 26.7 - 33.6 pg 03/01/2024 5:00 PM [facility] MCHC 33.9 31.7 - 36.3 g/dL 03/01/2024 5:00 PM [facility] RDW-CV 12.8 11.3 - 14.8 % 03/01/2024 5:00 PM [facility] Platelet Count 329 150 - 420 x10E9/L 03/01/2024 5:00 PM [facility] MPV 10.1 7.8 - 11.4 fL 03/01/2024 5:00 PM [facility] Neutrophil % 56.3 41.0 - 74.0 % 03/01/2024 5:00 PM [facility] Lymphocyte % 36.7 17.0 - 47.0 % 03/01/2024 5:00 PM [facility] Monocyte % 5.7 3.0 - 11.0 % 03/01/2024 5:00 PM [facility] Eosinophil % 0.9 0.0 - 7.0 % 03/01/2024 5:00 PM [facility] Basophil % 0.1 0.0 - 1.6 % 03/01/2024 5:00 PM [facility] Immature Granulocytes % 0.3 0.0 - 1.0 % 03/01/2024 5:00 PM [facility] Neutrophil Absolute 5.71 1.60 - 7.50 x10E9/L 03/01/2024 5:00 PM STAVE JOINTER [facility] Lymphocyte Absolute 3.73 1.00 - 4.40 x10E9/L 03/01/2024 5:00 PM STAVE JOINTER [facility] Monocyte Absolute 0.58 0.15 - 1.00 x10E9/L 03/01/2024 5:00 PM STAVE JOINTER [facility] Eosinophil Absolute 0.09 0.00 - 0.60 x10E9/L 03/01/2024 5:00 PM STAVE JOINTER [facility] Basophil Absolute 0.01 0.00 - 0.13 x10E9/L 03/01/2024 5:00 PM STAVE JOINTER [facility] Blood BLOOD SPECIMEN / Unknown Venipuncture / Unknown 03/01/2024 4:35 PM STAVE JOINTER 03/01/2024 4:53 PM STAVE JOINTER Lino Lombardo MD LAB - HEMATOLOG Y ORDERABLES Performing Organization Address [facility] Co de Phone Number [facility] [address] [place], [place] [phone] * (ABNORMAL) PROTEIN CREATININE RATIO URINE RANDOM PNL (03/01/2024 4:35 PM STAVE JOINTER) Protein Urine 13.7(H) <11.9 mg/dL 03/01/2024 5:36 PM STAVE JOINTER [facility] Creatinine Urine 192.10 mg/dL 03/01/2024 5:36 PM STAVE JOINTER [facility] Protein/Creatin ine Ratio Urine 0.07 03/01/2024 5:36 PM STAVE JOINTER [facility] Urine URINE SPECIMEN OBTAINED BY CLEAN CATCH PROCEDURE / Unknown Collection / Unknown 03/01/2024 4:35 PM STAVE JOINTER 03/01/2024 4:54 PM STAVE JOINTER Lino Lombardo MD LAB - URINE MOSHE RENEE ORDERABLES Performing Organization Address [facility] Co de Phone Number [facility] [address] [place] [phone] * HEPATITIS B SURFACE ANTIGEN W RFLX CONFIRMATION (03/01/2024 4:35 PM STAVE JOINTER) Pathologist [facility] HBsAg Non Reactive Non Reactive 03/01/2024 5:51 PM STAVE JOINTER [facility] Blood BLOOD SPECIMEN / Unknown Venipuncture / Unknown 03/01/2024 4:35 PM STAVE JOINTER 03/01/2024 4:53 PM STAVE JOINTER Lino Lombardo MD LAB - CHEMISTRY ORDERABLES Performing Organization Address City/[facility] Co de Phone Number [facility] [address] [place] [phone] * HEPATITIS C ANTIBODY (03/01/2024 4:35 PM STAVE JOINTER) Pathologist [facility] HCV Antibody Screen Non Reactive Non Reactive 03/01/2024 5:51 PM STAVE JOINTER [facility] Blood BLOOD SPECIMEN / Unknown Venipuncture / Unknown 03/01/2024 4:35 PM STAVE JOINTER 03/01/2024 4:53 PM STAVE JOINTER Narrative [facility] - 03/01/2024 5:51 PM STAVE JOINTER Non Reactive - Antibodies to Hepatitis C virus (HCV) were not detected, result does not exclude early acute HCV infection. Lino Lombardo MD LAB - CHEMISTRY ORDERABLES Performing Organization Address City/[facility]/ZIP Co de Phone Number [facility] [address] [place], [place] [phone] * FERRITIN (03/01/2024 4:35 PM STAVE JOINTER) [facility] Ferritin 42 5 - 204 ng/mL 03/01/2024 5:35 PM STAVE JOINTER [facility] Blood BLOOD SPECIMEN / Unknown Venipuncture / Unknown 03/01/2024 4:35 PM STAVE JOINTER 03/01/2024 4:53 PM STAVE JOINTER Lino Lombardo MD LAB - CHEMISTRY ORDERABLES Performing Organization Address City/[facility]/ZIP Co de Phone Number [facility] [address] [place] [phone] * US OB Less 14 Wks W Transv W Dopp (02/28/2024 4:10 PM STAVE JOINTER) Anatomical Region Laterality Modality Pelvis Ultrasound 02/28/2024 4:20 PM STAVE JOINTER Impressions 02/28/2024 4:37 PM STAVE JOINTER IMPRESSION: 1. Single living intrauterine at 6 weeks 0 days gestational age. Estimated date of delivery is 10/23/2024 2. The position of the gestational sac is asymmetrically closer to the left side of the uterine cavity, but its distance to serosal surface is not less than 7 mm and therefore, does not fit the size criteria of cornual ectopic . Short-term follow-up ultrasound for surveillance is recommended. 3. Normal ovaries and adnexa. > Interpreting Provider: Lorenzo Gannon MD on 02/28/2024 4:37 PM Narrative 02/28/2024 4:37 PM STAVE JOINTER PROCEDURE: US OB LESS 14 WKS W TRANSV W DOPP DATE/TIME OF EXAM: 02/28/2024 4:10 PM CLINICAL INFORMATION: None relevant/not provided if blank. Indication: R10.2: Pelvic and perineal pain First Trimester Obstetrical Ultrasound With Transvaginal And Doppler Examinations. HISTORY: This is a 33-year-old whose LMP was 01/13/2024 and complains of pelvic pain. There are serum beta-hCG level is 14,392.62 units. In an outside obstetric ultrasound on 04/25/2023, cornual was suggested. Please evaluate. COMPARISON: None available. TECHNIQUE: Real time transvaginal pelvic ultrasound was performed by the cracking unit operator with DICOM image capture. Color Doppler and pulse wave Spectral Doppler interrogation was performed and interpreted. Obstetric follow-up care is recommended possibly including follow-up laboratory evaluation and dedicated obstetric ultrasound examinations at assembler body's discretion. This exam does not constitute a survey. FINDINGS: The transabdominal images are suboptimal due to poor distention of the urinary bladder. The bladder wall thickness is normal. The uterus measures 10.5 x 5.1 x 6.2 cm on the transabdominal images. There is an intrauterine gestational sac with probable. Surrounding echogenic trophoblastic reaction. On the transverse images, the gestational sac is closer to the left lateral wall, but it still extends to the margin is 7 mm and does not fit the criteria of core normal . In addition, the position of gestational sac is lower than the expected location of cornua. The fallopian tubes however are not optimally demonstrated. The transvaginal images demonstrate normal appearance of myometrium. Again the position of the gestational sac is asymmetric to one side of the uterine cavity but this distance to the serosal surface is not less than 7 mm. A normal yolk sac measuring 2 mm and a single pole with crown rump length of 3.2 mm are identified. The gestational age based on crown rump length is 6 weeks 0 days. The estimated date of delivery based on these age is 10/23/2024. M mode images documented regular heart rate at 181 beats per minutes. No subchorionic hemorrhage or fluid in uterine cavity is identified. The cervix is closed and is unremarkable. Both ovaries are visible with normal morphology and normal flow on the Doppler images. The right ovary measures 2.9 x 2.3 x 2.2 cm. The left ovary measures 3.6 x 2.4 x 2.2 cm. A suspected corpus luteal cyst measuring 1.9 x 1.9 x 1.7 cm is seen in the left ovary. There is trace volume of free fluid in the posterior cul-de-sac. Procedure Note Lorenzo Gannon MD - 02/28/2024 PROCEDURE: US OB LESS 14 WKS W TRANSV W DOPP DATE/TIME OF EXAM: 02/28/2024 4:10 PM CLINICAL INFORMATION: None relevant/not provided if blank. Indication: R10.2: Pelvic and perineal pain First Trimester Obstetrical Ultrasound With Transvaginal And Doppler Examinations. HISTORY: This is a 33-year-old whose LMP was 01/13/2024 andcomplains of pelvic pain. There are serum beta-hCG level is 14,392.62 units. In an outside obstetric ultrasound on 04/25/2023, cornual wassuggested. Please evaluate. COMPARISON: None available. TECHNIQUE: Real time transvaginal pelvic ultrasound was performed by the cracking unit operator with DICOM image capture. Color Doppler and pulse waveSpectral Doppler interrogation was performed and interpreted. Obstetric follow-up care is recommended possibly including follow-up laboratory evaluationand dedicated obstetric ultrasound examinations at assembler body[facility]. This exam does not constitute a survey. FINDINGS: The transabdominal images are suboptimal due to poor distention of the urinary bladder. The bladder wall thickness is normal. The uterusmeasures 10.5 x 5.1 x 6.2 cm on the transabdominal images. There is anintrauterine gestational sac with probable. Surrounding echogenic trophoblastic reaction. On the transverse images, the gestational sac is closer to the left lateral wall, but it still extends to the margin is 7 mm and doesnot fit the criteria of core normal . In addition, the position of gestational sac is lower than the expected location of cornua. The fallopian tubes however are not optimally demonstrated. The transvaginal images demonstrate normal appearance of myometrium.Again the position of the gestational sac is asymmetric to one side of the uterine cavity but this distance to the serosal surface is not less than7 mm. A normal yolk sac measuring 2 mm and a single pole with crown rump length of 3.2 mm are identified. The gestational age based on crown rump length is 6 weeks 0 days. The estimated date of delivery based on these age is 10/23/2024. M mode images documented regular heart rateat 181 beats per minutes. No subchorionic hemorrhage or fluid in uterine cavity is identified. The cervix is closed and is unremarkable. Both ovaries are visible with normal morphology and normal flow on the Doppler images. The right ovary measures 2.9 x 2.3 x 2.2 cm. The leftovary measures 3.6 x 2.4 x 2.2 cm. A suspected corpus luteal cyst measuring 1.9x 1.9 x 1.7 cm is seen in the left ovary. There is trace volume of freefluid in the posterior cul-de-sac. IMPRESSION: 1. Single living intrauterine at 6 weeks 0 days gestationalage. Estimated date of delivery is 10/23/2024 2. The position of the gestational sac is asymmetrically closer to theleft side of the uterine cavity, but its distance to serosal surface is notless than 7 mm and therefore, does not fit the size criteria of cornualectopic . Short-term follow-up ultrasound for surveillance isrecommended. 3. Normal ovaries and adnexa. > Interpreting Provider: Lorenzo Gannon MD on 02/28/2024 4:37 PM Robert Haddad PA-C US ORDERABLES * URINALYSIS REFLEX MICROSCOPIC REFLEX CULTURE (02/28/2024 3:36 PM STAVE JOINTER) Color UA Straw Straw, Yellow 02/28/2024 3:41 PM STAVE JOINTER [facility] Clarity UA Clear Clear 02/28/2024 3:41 PM STAVE JOINTER [facility] Glucose UA Negative Negative 02/28/2024 3:41 PM STAVE JOINTER [facility] Bilirubin UA Negative Negative 02/28/2024 3:41 PM STAVE JOINTER [facility] Ketone UA Negative Negative 02/28/2024 3:41 PM STAVE JOINTER [facility] Specific [place] UA 1.005 1.005 - 1.030 02/28/2024 3:41 PM STAVE JOINTER [facility] Blood UA Negative Negative 02/28/2024 3:41 PM STAVE JOINTER [facility] pH UA 7.0 5.0 - 8.0 pH 02/28/2024 3:41 PM STAVE JOINTER [facility] Protein UA Negative Negative 02/28/2024 3:41 PM STAVE JOINTER [facility] Urobilinogen UA Negative Negative mg/dL 02/28/2024 3:41 PM STAVE JOINTER [facility] Nitrite UA Negative Negative 02/28/2024 3:41 PM STAVE JOINTER [facility] Leukocyte UA Negative Negative 02/28/2024 3:41 PM STAVE JOINTER [facility] Urine Microscopy Urine microscopy not indicated 02/28/2024 3:41 PM STAVE JOINTER [facility] Reflex Status Culture not indicated 02/28/2024 3:41 PM STAVE JOINTER [facility] Urine URINE SPECIMEN OBTAINED BY CLEAN CATCH PROCEDURE / Unknown 02/28/2024 3:36 PM STAVE JOINTER 02/28/2024 3:36 PM STAVE JOINTER Narrative [facility] - 02/28/2024 3:41 PM STAVE JOINTER Robert Haddad PA-C LAB - URINALYSIS ORDERABLES [facility] [address] [place] [address] * BLOOD TYPE VERIFICATION (02/28/2024 3:32 PM STAVE JOINTER) ABO Rh A POS 02/28/2024 4:2 6 PM STAVE JOINTER [facility] Blood Bank BLOOD SPECIMEN / Unknown Venipuncture / Unknown 02/28/2024 3:32 PM STAVE JOINTER 02/28/2024 3:36 PM STAVE JOINTER Cande Huggins MD LAB - BLOOD BANK ORD ERABLES [facility] [address] [phone] * (ABNORMAL) COMPREHENSIVE METABOLIC PANEL (02/28/2024 2:11 PM STAVE JOINTER) Glucose 114(H) 70 - 99 mg/dL 02/28/2024 2:32 PM [facility] Sodium 138 136 - 145 mmol/L 02/28/2024 2:32 PM [facility] Potassium 3.7 3.5 - 5.1 mmol/L 02/28/2024 2:32 PM [facility] Chloride 109(H) 98 - 107 mmol/L 02/28/2024 2:32 PM [facility] CO2 23 22 - 29 mmol/L 02/28/2024 2:32 PM [facility] Calcium 9.0 8.4 - 10.4 mg/dL 02/28/2024 2:32 PM [facility] Anion Gap 6 6 - 16 mmol/L 02/28/2024 2:32 PM [facility] BUN 8 5.3 - 18.7 mg/dL 02/28/2024 2:32 PM [facility] Creatinine 0.76 0.57 - 1.11 mg/dL 02/28/2024 2:32 PM [facility] Alkaline Phosphatase 67 40 - 150 U/L 02/28/2024 2:32 PM [facility] ALT 11 0 - 55 U/L 02/28/2024 2:32 PM [facility] AST 15 5 - 34 U/L 02/28/2024 2:32 PM [facility] Protein Total 7.0 6.4 - 8.3 gm/dL 02/28/2024 2:32 PM [facility] Albumin 3.4 3.4 - 5.0 gm/dL 02/28/2024 2:32 PM [facility] Bilirubin Total 0.4 0.2 - 1.2 mg/dL 02/28/2024 2:32 PM [facility] eGFR by CKD-EPI >90 >=90 mL/min/1.7 3 m2 02/28/2024 2:32 PM [facility] Blood BLOOD SPECIMEN / Unknown Venipuncture / Unknown 02/28/2024 2:11 PM STAVE JOINTER 02/28/2024 2:16 PM STAVE JOINTER Robert Haddad PA-C LAB - CHEMISTRY O RDERABLES Performing Organization Address [facility] Co de Phone Number [facility] [address] [place] [id number] * HCG BETA BLOOD QUANTITATIVE (02/28/2024 2:11 PM STAVE JOINTER) Only the most recent of3 resultswithin the time period is included. [facility] hCG Quantitative 14,392.62 mIU/mL 02/28/20 24 2:54 PM STAVE JOINTER [facility] Blood BLOOD SPECIMEN / Unknown Venipuncture / Unknown 02/28/2024 2:11 PM STAVE JOINTER 02/28/2024 2:16 PM STAVE JOINTER Narrative [facility] - 02/28/2024 2:54 PM STAVE JOINTER hCG Reference Range, mIU/mL: Non Females 0-6.0 Perimenopausal Females ages 41-55* 0-7.7 Postmenopausal Females age >55* 0-14 Females, Weeks after Last Menstrual Period 0.2-1 week 5-50 1 - 2 weeks 50-500 2 - 3 weeks 100-5000 3 - 4 weeks 500-10,000 4 - 5 weeks 1000-50,000 5 - 6 weeks 10,000-100,000 6 - 8 weeks 15,000-200,000 2 - 3 months 10,000-100,000 Trophoblastic Disease >100,000 *In higher than expected hCG in females > age 40, a serum FSH >20 IU/L makes unlikely. Robert Haddad PA-C LAB - CHEMISTRY O RDERABLES Performing Organization Address [facility] Co de Phone Number [facility] [address] [place] [address] * BIOPHYSICAL PROFILE W NST (05/18/2020 9:56 AM STAVE JOINTER) Only the most recent of3 resultswithin the time period is included. Anatomical Region Laterality Modality Other 05/18/2020 9:56 AM STAVE JOINTER Narrative 05/18/2020 11:57 AM [facility] PHONE: FAX: Pat. Name: YASMEEN SIMPSON Pat. No: [id number] Study Date: 05/18/2020 9:56am , Age: 09 1990, 29 Pregnancies: 1 Height: 62 in Weight: 226 lb LMP: 09/11/2019 GA by LMP: 35w5d GA by Base: 35w5d JEFF: 06/17/2020 GA Selected: 35w5d (From [facility]) JEFF: 06/17/2020 Referring MD: Dante Aponte MD Youth Services Specialist: Renata Hu RDMS CPT4: 56203,61234 BMI: 41.33 Hist/Ind: Type 2 diabetes Class III obesity Normal echo Certain LMP Heart Rate: 130 bpm Amniotic Fluid Index: 12.5cm (07.8-24.9) Q1: 2.0cm Q2: 2.7cm Q3: 4.4cm Q4: 3.5cm Biophysical Profile: 01/27 Breathin Tone: 2 NST: 2 Movement: 2 AFV: 2 EVAL, PLACENTA Presentation: cephalic Placenta: posterior Heart Rate: 130 bpm Amniotic Fluid Volume: normal CLINICAL SUMMARY Study Number: 6 A single fetus is seen in cephalic presentation. The amniotic fluid volume is within normal limits. The FHR baseline is 135 bpm during today's reactive NST. The FHR variability was moderate. Variable decelerations with the W sign noted IMPRESSION: Single, live, intrauterine at 35w5d Amniotic fluid volume: within normal limits Biophysical profile: Reassuring RECOMMEND: Continue weekly testing Repeat growth assessment in 3 weeks Thank you for allowing us the opportunity to care for your patient Blair Ruiz MD <Electronic Signature> 05/18/2020 11:57am R Twin Aponte MD [facility] ORDERABLES * ECHO CONSULT - (04/19/2020 9:09 AM STAVE JOINTER) 04/19/2020 9:09 AM STAVE JOINTER Narrative Procedure Note Renae Lara MD - 04/19/2020 [address] [place] [address] Fax Echocardiogram Report Pat.Name: YASMEEN SIMPSON Pat.ID: [id number] St.Date: 04/19/2020 Refer.MD: Renae Lara Exam Time: 9:09:00 AM Study Type: Echo Age: 9 1990,29Y Sex: FEMALE Sonogrphr: Aayush Rogers ANAND Pat. Stat.:Outpatient Reason for Study: Maternal History of Diabetes SUMMARY: Study Data: GA: 31/4 weeks. JEFF: 2-28-21 . : 1. Para: 0. Type: Valderrama. Lie: Vertex. Impression: The echocardiogram was within normal limits; however small atrial and ventricular septal defects and persistent ductus arteriosus cannot be excluded as findings. Findings: Anatomic Relationships: Left sided cardiac apex (levocardia). There is normal visceral-cardiac situs, and normal segmental cardiac anatomical relationship. Systemic Veins: There is normal systemic venous return. Pulmonary Veins: The visualized pulmonary veins drain normally to the left atrium. Right Atrium: The right atrial size is normal. Left Atrium: The left atrial size is normal. Atrial Septum: Patent foramen ovale is seen with the foramen flap bowing from right to left and color flow is right to left. Tricuspid Valve: The tricuspid valve is structurally normal. The inflow pattern is normal. Tricuspid velocity is within the normal range. There is no regurgitation present. Mitral Valve: The mitral valve is structurally normal. The inflow pattern is normal. Mitral velocity is within the normal range. There is no regurgitation present. Right Ventricle: The cavity size is normal. The wall thickness is normal. The systolic function is normal. RV Outflow Tract: The outflow tract is normal. Left Ventricle: The cavity size is normal. The wall thickness is normal. The systolic function is normal. LV Outflow Tract: The outflow tract is normal. Ventricular Septum: There is no defect with no shunting. Pulmonary Valve: Leaflets exhibited normal mobility. The transpulmonic velocity is within the normal range. There is no regurgitation present. Aortic Valve: Leaflets exhibited normal mobility. The transaortic velocity is within the normal range. There is no regurgitation present. Pulmonary Artery: The MPA is normal with confluent branch pulmonary arteries. Aorta: aortic arch visualized and is without obstruction by 2D, color flow and Doppler. Ductus Arteriosus: The antegrade flow velocity and pattern in the ductal arch is normal. A normal ductus arteriosus is appreciated. Hydrops Assessment: No pericardial effusion. No evidence of ascites or pleural effusion. Rhythm: The rhythm is normal. There is 1:1 AV conduction. Dopplers: Flow in the ductus venosus is normal. The umbilical vein flow pattern is normal. The umbilical artery flow pattern is normal. MEASUREMENTS: 2D Ventricular Septum IVSd 3.68 mm DOPPLER Mitral Valve MV pkE 0.22 m/s MV E/A 0.45 no unit MV pkA 0.48 m/s Tricuspid Valve TV pkE 0.59 m/s Aortic Valve AVpkVel -1.03 m/s Pulmonic Valve PV pkVel -0.53 m/s Heart Rate HR 148 bpm Signed 04/19/2020 03:11 PM Renae Lara MD Renae Lara MD ECHO ORDERABLES Performing Organization Address City/State/[facility] Co de Phone Number [facility] [address] [phone] Care Teams [employer] Supervisor Relationship Specialty Start Date End Date Chuck Nelson, FREDERICK-EMILY [facility] [address] [place] [phone] PCP - General Nurse Practitioner 08/25/22
--- OUTSIDE RECORDS SUMMARY | 2024-07-04 19:08 | XMS_ITS | Clinical Summary ---
Author Organization [facility] Address [address] [place] [address] Care Team Providers Care Meter/Relay Craftsman Name Role Phone OmarNarcisoramakrishnaleanna NEGRITO Primary Care Provider [phone] Christopher Nelson MD Unavailable [phone] Allergies Active Allergy Reactions Criticality Noted Date Comments Lisinopril Unknown 06/04/2023 Shellfish Containing Products Unknown 2023 Medications clonazePAM (KlonoPIN) 0.5 mg tablet Take 1 tablet (0.5 mg total) by mouth 2 (two) times a day as needed Active escitalopram (LEXAPRO) 20 mg tablet Take 1 tablet (20 mg total) by mouth daily Active fluticasone propionate (FLONASE) 50 mcg/actuation nasal spray Administer 1 spray into affected nostril(s) daily as needed Active metFORMIN (GLUCOPHAGE) 1,000 mg tablet Take 2 tablets (2,000 mg total) by mouth daily with breakfast Active montelukast (SINGULAIR) 10 mg tablet Take 1 tablet (10 mg total) by mouth daily Active tirzepatide (Mounjaro) 5 mg/0.5 mL pen injector Inject 5 mg under the skin every 7 days Takes on Fridays, last dose 09/18/23 Active icosapent ethyL (VASCEPA) 1 gram capsule Take 2 capsules (2 g total) by mouth 2 (two) times a day Active oxyCODONE-aceta minophen (PERCOCET) 5-325 mg per tabletIndicatio ns:Pain Take 1-2 tablets by mouth every 6 (six) hours as needed for pain 10 tablet Active Active Problems Problem Noted Date Diagnosed Date Type 2 diabetes mellitus 08/25/2022 Surgical History Surgery Date Site/Laterality Comments TONSILLECTOMY 04/20/2008 - 04/19/2009 Medical History Medical History Date Comments Type 2 diabetes mellitus (HCC) Acne body acne Anxiety Social History Tobacco Use Types Packs/Day Years Used Date Smoking Tobacco: Never Smokeless Tobacco: Never Tobacco Cessation:Counseling Given: Not Answered AUDIT-C Answer Date Recorded Q1: How often do you have a drink containing alcohol? Never 09/16/2023 Q2: How many drinks containi ng alcohol do you have on a typical day when you are drinking? Patient does not drink Q3: How often do you have si x or more drinks on one occasion? Never 09/16/2023 Personal Safety Answer Date Recorded Have you ever been in or are you currently in a harmful physical or emotional relationship or is someone making you feel afraid or unsafe? 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 Gender Identity Not on file Sexual Orientation Not on file Obstetrics History Last Filed Vital Signs Vital Sign Reading Time Taken Comments Blood Pressure 137/75 09/30/2023 11:10 AM CDT Pulse 69 09/30/2023 11:10 AM CDT Temperature 36.5 C (97.7 F) 09/30/2023 10:05 AM CDT Respiratory Rate 16 09/30/2023 11:05 AM CDT Oxygen Saturation 99% 09/30/2023 11:10 AM CDT Inhaled Oxygen Concentration - - Weight 96.9 kg (213 lb 9.6 oz) 09/30/2023 5:53 A M CDT Height 162.6 cm (5' 4 ) 09/30/2023 5:53 AM CDT Body Mass Index 36.66 09/30/2023 5:53 AM CDT Plan of Treatment Health Maintenance Due Date Last Done Comments Albumin Creatinine Ratio, Urine 1989 Cervical Cancer Screening 1989 Depression Screening 1989 Hepatitis C Screening 1989 Dilated Eye Exam 1989 Foot Exam 1989 Lipid Panel 1989 Varicella Vaccines (1 of 2 - 13+ 2-dose series) 2002 Hepatitis B Screening 12/26/2007 Regular Well Visit/Exam 18-64 12/26/2007 Pneumococcal vaccine <65 (2 of 2 - PCV) 07/03/2019 07/02/2018 Covid-19 Vaccine (3 - 2023-2 5 season) 2023 06/05/2021, 05/15/2021 Influenza Vaccine (#1) 2023 3, 01/30/2022, 04/16/2020, Additional history exists Hemoglobin A1C 03/25/2024 09/24/2023 eGFR 09/23/2024 09/24/2023 DTaP/Tdap/Td Vaccine (3 - Td or Tdap) 04/16/2030 04/16/2020, 01/02/2015 HPV Vaccines Completed 09/03/2023, 05/2023, 03/09/2023 Procedures Procedure Name Priority Date/Time Associated Diagnosis Comments EGFR STAT 09/24/2023 8:42 AM CDT Pre-op testing HEMOGLOBIN A1C STAT 09/24/2023 8:42 AM CDT Preop testing from Last 3 Months or Most Recently Relevant to Health Maintenance Results * eGFR (09/24/2023 8:42 AM CDT) eGFR >90 >=60 mL/min/1. 73 m2 Comment: Interpretive Data Reference Interval Normal >/= 90 mL/min/1.73m2 Mildly decreased* 60 - 89 mL/min/1.73m2 Mildly to moderately decreased 45 - 59 mL/min/1.73m2 Moderately to severely decreased 30 - 44 mL/min/1.73m2 Severely decreased 15 - 29 mL/min/1.73m2 Kidney Failure < 15 mL/min/1.73m2 *Relative to young adult level Estimated glomerular filtration rate is determined by the 2020 CKD-EPI equation recommended by the National Kidney Foundation (A Unifying Approach to GFR Estimation: Recommendations of the NKF-ASK Task Force on Reassessing the Inclusion of Race in Diagnosing Kidney Disease, JASN 2020). The CKD-EPI equation should not be used for patients with unstable renal function and has not been validated in children and those over 70. Current interpretive data was last reviewed 2021. Testing performed by: [address] [address] Blood 09/24/2023 8:42 AM CDT 09/24/2023 9:06 AM CDT Sajan Pollard MD LAB BLOOD ORDERABL ES Final Result Performing Organization Address City/[facility]/ZIP Co de Phone Number [facility] [address] [facility] [place] [address] * (ABNORMAL) Hemoglobin A1c (09/24/2023 8:42 AM CDT) Hgb A1C 6.8(H) 4.0 - 5.6 % Comment:Testing performed by : [address] [address] Estimated Average Glucose 148 mg/dL [facility] Comment: The ADA recommends reporting an estimated Average Glucose (eAG) with all Hemoglobin A1c results using the equation derived from a study of 507 normal and diabetic adults. Minority populations were underrepresented and children were not included. (Diabetes Care 31:9628-3475, 2008). The eAG is not equivalent to a fasting glucose. Testing performed by: [address] [address] Blood 09/24/2023 8:42 AM CDT 09/24/2023 9:06 AM CDT Narrative [facility] - 09/24/2023 9:40 AM CDT PRE SURGERY TESTING ONLY Sajan Pollard MD LAB BLOOD ORDERABL ES Final Result [facility] [address] [facility] [place] [address] from Last 3 Months or Most Recently Relevant to Health Maintenance Insurance [facility] CHOICE PLUS [employer]PA [employer] OPEN ACCESS [employer]PA [employer] OPEN ACCESS Care Teams Meter/Relay Craftsman Relationship Specialty Start Date End Date Chuck Nelson NP PCP - General 01/26/19 Christopher Nelson MD [address] [place] [id number] Consulting Physician General Surgery 09/30/23
--- OUTSIDE RECORDS SUMMARY | 2024-07-04 19:08 | XMS_ITS | Referral Summary ---
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 This disclosure is being madepursuant to the Care Everywhere program and may not contain all information available regarding this patient. Last updated 18.[facility] Encounters Date Type Department Care Team Description 06/28/2024 Travel 06/28/2024 2:14 PM CDT - 06/28/2024 11:59 PM CDT Hospital Encounter [facility] [address] [place] [address]. [address] [place] [address] Eduar Hernandez MD Chavan, Niraj R, MD Discharge Disposition: Home or Self Care 06/28/2024 2:14 PM CDT - 06/28/2024 11:59 PM CDT Hospital Encounter [facility] [address] [place] [address]. [address] [place] [address] Eduar Hernandez MD Chavan, Niraj R, MD Discharge Disposition: Home or Self Care 06/28/2024 2:14 PM CDT Hospital Encounter [facility] [address] [place] [address] Eduar Hernandez MD Discharge Disposition: Home or Self Care 06/15/2024 Travel 06/15/2024 12:34 PM REGULATORY COMPLIANCE COORDINATOR - 06/15/2024 11:59 PM REGULATORY COMPLIANCE COORDINATOR Hospital Encounter [facility] [address] [place] [address] Nhi Walker APRN-CNP Discharge Disposition: Home or Self Care 06/15/2024 12:34 PM REGULATORY COMPLIANCE COORDINATOR - 06/15/2024 11:59 PM REGULATORY COMPLIANCE COORDINATOR Hospital Encounter [facility] [address] [place] [address] Nhi Walker APRN-CNP Discharge Disposition: Home or Self Care 06/14/2024 Telephone [facility] [address] [place] [address] Elizabeth Chandler Scheduling 06/08/2024 Travel 06/08/2024 12:53 PM REGULATORY COMPLIANCE COORDINATOR - 06/08/2024 11:59 PM REGULATORY COMPLIANCE COORDINATOR Hospital Encounter [facility] [address] [place] [address] Dave Sevilla MD Discharge Disposition: Home or Self Care 06/08/2024 12:30 PM REGULATORY COMPLIANCE COORDINATOR Procedure visit [facility] [address] [place] [address] [address] [place] [address] Mary Sales MD Morbid obesity with BMI of 40.0-44.9, adult ([facility]) 06/08/2024 12:53 PM REGULATORY COMPLIANCE COORDINATOR - 06/08/2024 11:59 PM REGULATORY COMPLIANCE COORDINATOR Hospital Encounter [facility] [address] [place] [address] Dave Sevilla MD Discharge Disposition: Home or Self Care 06/07/2024 Telephone [facility] [address] [address] Taylor Yeboah Appointment 05/31/2024 Travel 05/31/2024 1:47 PM REGULATORY COMPLIANCE COORDINATOR - 05/31/2024 11:59 PM REGULATORY COMPLIANCE COORDINATOR Hospital Encounter [facility] [address] [place] [address] Bird Stevenson MD Discharge Disposition: Home or Self Care 05/24/2024 Orders Only [facility] [address] [place] [address] Qiana Mcfarlane, RD/LD 05/23/2024 Refill [facility] [address] [place] [address] Luana Plummer MD MEDICATION REFILL 05/10/2024 Travel 05/10/2024 1:56 PM REGULATORY COMPLIANCE COORDINATOR - 05/10/2024 11:59 PM REGULATORY COMPLIANCE COORDINATOR Hospital Encounter [facility] [address] [place] [address] Luana Plummer MD Discharge Disposition: Home or Self Care 05/10/2024 1:56 PM REGULATORY COMPLIANCE COORDINATOR - 05/10/2024 11:59 PM REGULATORY COMPLIANCE COORDINATOR Hospital Encounter [facility] [address] [place] [address] Luana Plummer MD Discharge Disposition: Home or Self Care 04/26/2024 Travel 04/26/2024 1:48 PM REGULATORY COMPLIANCE COORDINATOR - 04/26/2024 11:59 PM REGULATORY COMPLIANCE COORDINATOR Hospital Encounter [facility] [address] [place] [address] Eduar Hernandez MD Mostello, Dorothea Jean, MD Discharge Disposition: Home or Self Care 04/26/2024 1:48 PM REGULATORY COMPLIANCE COORDINATOR - 04/26/2024 11:59 PM REGULATORY COMPLIANCE COORDINATOR Hospital Encounter [facility] [address] [place] [address] Eduar Hernandez MD Mostello, Dorothea Jean, MD Discharge Disposition: Home or Self Care 04/11/2024 Telephone [facility] [address] [place] [address] Elaine Sorenson, BRIGIDO Results 04/05/2024 Travel 04/05/2024 2:00 PM REGULATORY COMPLIANCE COORDINATOR Hospital Encounter [facility] [address] [place] [address] Luana Plummer MD Discharge Disposition: Home or Self Care 04/05/2024 2:01 PM REGULATORY COMPLIANCE COORDINATOR - 04/05/2024 11:59 PM REGULATORY COMPLIANCE COORDINATOR Hospital Encounter [facility] [address] [place] [address] Eduar Hernandez MD Discharge Disposition: Home or Self Care 04/05/2024 2:00 PM REGULATORY COMPLIANCE COORDINATOR Hospital Encounter [facility] [address] [place] [address] Luana Plummer MD Discharge Disposition: Home or Self Care from Last 3 Months Allergies Active Allergy Reactions Criticality Noted Date Comments Lisinopril Rash Medium 03/19/2020 Shellfish Allergy Rash Medium 08/25/2022 Medications * Be aware that medications may not be up to date on this document. Alwaysverify current medications with the patient. Medication Sig Dispensed Refills Start Date End Date Status metFORMIN (GLUCOPHAGE) 1000 MG tabletIndication s:Type 2 Diabetes Mellitus Take 2 (two) tablets by mouth 2 times daily with morning and evening meal Reasons: Type 2 Diabetes Active escitalopram (Lexapro) 20 MG tablet Take 1 (one) tablet by mouth once daily Active Blood Glucose Monitoring Suppl (OneTouch Verio) w/Device KITIndications:P re-existing type 2 diabetes mellitus during , antepartum ([facility]),Type 2 diabetes mellitus with stage 1 chronic kidney disease, with long-term current use of insulin ([facility]) Use 1 Each as directed 1 kit 4 Active blood glucose (OneTouch Verio) test stripIndications :Pre-existing type 2 diabetes mellitus during , antepartum ([facility]),Type 2 diabetes mellitus with stage 1 chronic kidney disease, with long-term current use of insulin ([facility]) To monitor blood glucose (sugar) 4x daily- fasting and 1 hour after meals 100 strip 5 4 Active Lancets (ONETOUCH DELICA PLUS 33G EXTRA FINE LANCET)Indicatio ns:Pre-existing type 2 diabetes mellitus during , antepartum ([facility]),Type 2 diabetes mellitus with stage 1 chronic kidney disease, with long-term current use of insulin ([facility]) To monitor blood glucose (sugar) 4x daily- fasting and 1 hour after meals 100 Each 5 4 Active Vit-Fe Fumarate-FA ( ONE DAILY PO) Active Glucagon (Baqsimi One Pack) 3 MG/DOSE POWD [place] 1 Each into the nose as needed 1 Each 4 Active Additional Information Patient not taking.Reason: Other, Reported on 06/08/2024 Continuous Glucose Sensor (Run [employer] Errands G7 Sensor) MISCIndications: Pre-existing type 2 diabetes mellitus during , antepartum ([facility]) Use 1 Each Continuous for 10 days 3 Each 5 4 03/22/20 25 Active triamcinolone acetonide (Kenalog) 0.1 % cream APPLY CREAM EXTERNALLY TO AFFECTED AREA TWICE DAILY FOR 90 DAYS FOR DERMATITIS Active montelukast (Singulair) 10 MG tablet TAKE 1 TABLET BY MOUTH ONCE DAILY FOR ALLERGIES Active hydrOXYzine HCl (Atarax) 25 MG tablet Take 1 (one) tablet by mouth 3 times daily Active fluticasone propionate (Flonase) 50 MCG/ACT nasal spray USE 1 SPRAY(S) IN EACH NOSTRIL ONCE DAILY Active aspirin EC (Ecotrin) 81 MG tabletIndication s:Pre-existing type 2 diabetes mellitus during , antepartum ([facility]) Take 2 (two) tablets by mouth once daily 100 tablet 1 4 Active Insulin Pen Needle (TechLite Pen [place]) 32G X 4 MM MISCIndications: Pre-existing type 2 diabetes mellitus during , antepartum ([facility]) Use 1 Each 5 times daily 150 Each 5 4 Active Vit-Fe Fumarate-FA (M- Plus) 27-1 MG TABS Take 1 tablet by mouth once daily for 30 doses 28 tablet 1 5 07/09/19 25 Active hydrocortisone (Hytone) 1 % ointment Apply to affected area 4 times daily for 30 days 56 g 1 5 07/09/19 25 Active Additional Information Patient not taking.Reported on 06/28/2024 insulin glargine (Lantus/Semglee) 100 units/mL penIndications:T ype 2 diabetes mellitus with hyperglycemia, 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 Take dosages approximately 12 hours apart. Increase dose as directed due to increasing insulin requirements during . 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 Inject 0-15 minutes before meals. Increase dose as directed during . Max total daily dose = 50 units. 15 mL 5 5 Active fluconazole (Diflucan) 150 MG tabletIndication s:Vaginitis affecting in second trimester, antepartum (HCC) Take 1 (one) tablet by mouth once daily 1 tablet 5 Active insulin glargine (Lantus/Semglee) 100 units/mL pen Inject 10 units in the morning and 10 units at bedtime. Take dosages approximately 12 hours apart. Increase dose as directed due to increasing insulin requirements during . Max total daily dose = 50u 15 mL 5 4 06/08/19 25 Discontinued insulin lispro (HumaLOG;ADMelog ) 100 UNIT/ML pen Inject 6u before small meals (<30g), 8 units before medium meals (30-45g), and 10u before large meals (>60g). Inject 0-15 minutes before meals. Increase dose as directed during . Max total daily dose = 50 units. 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 Inject 0-15 minutes before meals. Increase dose as directed during . Max total daily dose = 50 units. 15 mL 5 5 06/15/19 25 Discontinued Active Problems Problem Noted Date Diagnosed Date Encounter for anatomic survey 05/31/2024 Obesity affecting 04/26/2024 Cholelithiasis without obstruction 04/20/2023 Type 2 diabetes mellitus 08/25/2022 Frequent headaches 05/02/2020 Overview (05/02/2020): Noticing headaches first thing in the morning for the past 1.5 weeks. Preeclampsia work up negative on 04/30: PCR: 0.18, AST: 25, ALT: 35, creatinine: 0.50, platelets: 348K. Assessment & Plan (05/16/2020 12:49 PM REGULATORY COMPLIANCE COORDINATOR): Resolution of headaches continues. Preeclampsia work up negative on 04/30: PCR: 0.18, AST: 25, ALT: 35, creatinine: 0.50, platelets: 348K. Normotensive today. Asymptomatic for preeclampsia. MFM Plan: 1. Encouraged to continue to monitor for preeclampsia symptoms and if future headache occurs and not relieved with interventions, to always alert primary OB or seek OB evaluation at OB triage. Assessment & Plan (05/09/2020 2:03 PM REGULATORY COMPLIANCE COORDINATOR): Resolution of headaches this week. Preeclampsia work up negative on 04/30: PCR: 0.18, AST: 25, ALT: 35, creatinine: 0.50, platelets: 348K. Normotensive today. Asymptomatic for preeclampsia. MFM Plan: 1. Encouraged to continue to monitor for preeclampsia symptoms and if headache not relieved with interventions, to always alert primary OB or seek OB evaluation at OB triage. 2. Riboflavin instructions given to picker operator OTC.. Assessment & Plan (05/02/2020 11:59 AM REGULATORY COMPLIANCE COORDINATOR): Noticing headaches first thing in the morning for the past 1.5 weeks. Preeclampsia work up negative on 04/30: PCR: 0.18, AST: 25, ALT: 35, creatinine: 0.50, platelets: 348K. Normotensive today, negative urine protein. Denies scotomata or RUQ abdominal pain. Mostly alleviated with eating breakfast. Denies night sweats, nightmares, jitteriness over night or in the morning. Denies any known hypoglycemia. MFM Plan: 1. Discussed possibility that headaches are related to nocturnal hypoglycemia. Instructed to check blood sugar when awakens in the middle of the night to use restroom, if low, treat and call after hours emergency number. The following day communicate with our diabetes team regarding that low sugar over night so that we can re-address insulin dosages. 2. Encouraged to continue to monitor for preeclampsia symptoms and if not relieved with interventions to always alert primary OB or seek OB evaluation at OB triage. 3. Riboflavin sent to pharmacy for aid in headache prevention. History of PCOS 03/19/2020 High risk , antepartum 03/19/2020 Overview (04/06/2020): RPR-NR, HIV-NR, CF screen-Neg, NIPS(nipt)- Negative, Sequential 2- Negative HH11.5/34.1 Pre-existing type 2 diabetes mellitus during , antepartum 03/13/2020 Overview (04/06/2020): 04/02/20 HGA1c= 5.8 Assessment & Plan (05/23/2020 12:34 PM REGULATORY COMPLIANCE COORDINATOR): 24 hour urine/CMP: 04/30: PCR: 0.18, AST: 25, ALT: 35, creatinine: 0.50. hemoglobin A1c: 5.8%, 04/10; Previous A1c: 6% at 12 weeks. Reports normal dilated eye exam, records requested multiple times and never received. echo: completed and appropriate. Serial growth : EFW: 89% and 2940grams, AC: 95%. Anatomy complete, 05/11 Hypoglycemia for the last 3 days, both fasting values and during the day Decreased movement pattern off and on since last Thursday Reactive NST in office today MFM plan: 1. Discussed risk of still given decreased movement pattern and hypoglycemia now present. Recommend for patient to be delivered at 36 weeks, reviewed with Dr. Wasserman in office who agreed. Recommendation given to primary Tour Operator and patient sent to [facility] today for delivery, cephalic on quick look ultrasound today. 2. I reviewed risk for 36 week delivery with diabetes in the that was difficult to control, including respiratory distress and hypoglycemia, which could require additional nursery/nicu support. Discussed benefit of delivery now versus risk of stillbirth, and patient agrees. 3. Close contact with our CDE, on at least a weekly basis. 4. Recommend changing insulin to basal insulin, her current weight calculates to 30 units of basal insulin daily, such as Lantus. Resume previous Metformin dose used prior to , check post prandial glucoses to determine if meal time insulin is needed. 5. Will require insulin drip in labor. During labor, capillary glucose values should be checked every 1-2 hours (depending on their stability). Maintenance fluids with 5% dextrose are infused to prevent starvation ketosis. If the glucose values exceed 110 mg/dl, an insulin infusion is recommended. No changes made to current insulin regimen given sent for delivery initiation now, instructed not to administer further insulin at this time until she receives instruction at L/D. 6. Benefit from close relationship with PCP following delivery. Recommend and PP weight reduction. Discussed in detail today both maternal and benefits of . Assessment & Plan (05/16/2020 1:23 PM REGULATORY COMPLIANCE COORDINATOR): 24 hour urine/CMP: 04/30: PCR: 0.18, AST: 25, ALT: 35, creatinine: 0.50. hemoglobin A1c: 5.8%, 04/10; Previous A1c: 6% at 12 weeks. Reports normal dilated eye exam, records requested multiple times and never received. echo: completed and appropriate. Serial growth : EFW: 89% and 2940grams, AC: 95%. Anatomy complete, 05/11 Hyperglycemia somewhat improved with fasting values. Post prandial dinner values elevated. CGM reports occasional excursion to 200. Challenges this week with carbohydrate counting with meals and snacks. Decreased movement noted since last night. MFM plan: 1. Reviewed pertinence of consistency with carbohydrate counting. Discussed risks with ongoing hyperglycemia, including stillbirth. Emphasized importance of kick counts and if decreased movement is noted, must seek prompt obstetrical evaluation. 2. Close contact with our CDE, on at least a weekly basis. 3. Humalog 16 units with breakfast, 8 units with lunch, and increase to 32 units with dinner, instructed not to give if not planning to eat. Continue to try and give 15 minutes prior to eating. If eating a snack with 15 grams or more of carb, give 6 units of Humalog. 4. Increase morning NPH 26 units, increase night time NPH to 88 units. 5. Again instructed to always have a quick acting sugar snack if she becomes hypoglycemic, carry Glucagon. Call after hours number if treat hypoglycemia and does not improve. Call after hours number if post prandial checks are 200 or above. 6. Encouraged walking after meals, goal of 30 minutes of aerobic exercise daily. 7. Continue twice weekly NST and weekly BPP as scheduled. 8. Serial Ultrasound assessment of growth every 3-4 weeks is recommended, with a reassessment between 37-38 weeks for mode of delivery planning. 9. Sent to L/D at [facility] for continuous monitoring. Report called to both L/D and primary Tour Operator's office regarding office visit today and decreased movement. Reviewed that BPP could be falsely reassuring for patient given her diabetes. Ensured that private OB has after hours number to call MFM if needed once patient is at the hospital. 10. Delivery planning at this time is contingent on weekly assessments of patient's glucose values and testing. Discussed with patient that delivery planning could be sudden with persistent hyperglycemia, or with concerning testing. MFM Dr. Dangelo today agrees that patient should be reviewed with MFM weekly at this point for management of her glucose values, and potential delivery planning. 11. Will require insulin drip in labor. 12. reduce insulin by 50%. Benefit from close relationship with PCP following delivery. Recommend and PP weight reduction. Assessment & Plan (05/09/2020 12:01 PM REGULATORY COMPLIANCE COORDINATOR): 24 hour urine/CMP: 04/30: PCR: 0.18, AST: 25, ALT: 35, creatinine: 0.50. hemoglobin A1c: 5.8%, 04/10; Previous A1c: 6% at 12 weeks. Reports normal dilated eye exam, records requested multiple times and never received. echo: completed and appropriate. Serial pzrhyd89/28: EFW: 87% and 2028grams, AC: 95%. Anatomy incomplete. Hyperglycemia improved with fasting values. Post prandial dinner values with hyperglycemia. Started using continuous glucose sensor. Two hypoglycemic episodes over night this week. Improved overall glycemic control this week. Continues to exercise, now making strong dietary changes. Completed NST yesterday at primary OB and scheduled for BPP/NST here on Thursday. MFM plan: 1. Praised her progress this week with dietary changes and compliance with continuous glucose monitor . Close contact with emailing our CDE, and please do so on Thursday with progress. 2. Close contact with our CDE, on at least a weekly basis. 3. Humalog 10 units with breakfast, continue 4 units with lunch, and increase to 28 units with dinner, instructed not to give if not planning to eat. Continue to try and give 15 minutes prior to eating. 4. Continue morning NPH 20 units, reduce night time NPH to 84 units. 5. Again instructed to always have a quick acting sugar snack if she becomes hypoglycemic, carry Glucagon. Call after hours number if treat hypoglycemia and does not improve. 6. Encouraged walking after meals, goal of 30 minutes of aerobic exercise daily. 7. Continue twice weekly NST and weekly BPP as scheduled. 8. I again reviewed importance of twice daily kick counts, seek OB evaluation with decreased movement promptly. 9. Serial Ultrasound assessment of growth every 3-4 weeks is recommended, with a reassessment between 37-38 weeks for mode of delivery planning. 10. If fasting glucoses remain difficult to control, consider delivery at 36-[address] Zhu 05/02. Glucoses improved this week, will follow up again next week to closely monitor. Assessment & Plan (05/02/2020 12:25 PM REGULATORY COMPLIANCE COORDINATOR): 24 hour urine/CMP: 04/30: PCR: 0.18, AST: 25, ALT: 35, creatinine: 0.50 hemoglobin A1c: 5.8%, 04/10; Previous A1c: 6% at 12 weeks Compliant with 162 ASA Reports normal dilated eye exam, records requested multiple times and never received echo: completed and appropriate Serial growth last assessed 04/16: EFW: 87% and 2029grams, AC: 95% Anatomy incomplete as of 04/16 Hyperglycemia remains challenging with fasting glucoses, last two mornings were 121, despite increasing night time NPH to 76 as recommended Thursday night. Working 12 hour shift and often eats third meal around midnight, waits 8 hours to check fasting glucose. Denies eating after going to bed. No current glucose checks when she awakens at night. Continues to exercise Completed NST yesterday at primary OB and scheduled for BPP/NST here on Thursday. MFM plan: 1. Encouraged to check glucoses at least 4x daily, fasting and one hour after each meal. I also advised her to check glucose in the middle of the night when she gets up and uses the restroom, if hypoglycemic treat and call after hours emergency number. Possibility of nocturnal hypoglycemia. Advised to also check expiration date on NPH, ensure she is giving cloudy insulin verses clear at bedtime. Close contact with emailing our CDE, and please do so on Thursday with progress. 2. Close contact with our CDE, on at least a weekly basis. 3. Humalog 10 units with breakfast, continue 4 units with lunch, and increase to 24 units with dinner, instructed not to give if not planning to eat. Continue to try and give 15 minutes prior to eating. 4. Continue morning NPH 20 units, increase night time NPH to 90 units. Reviewed insulin changes with CDE and MFM Dr. Zhu in clinic today. 5. Again instructed to always have a quick acting sugar snack if she becomes hypoglycemic, carry Glucagon. 6. Encouraged walking after meals, goal of 30 minutes of aerobic exercise daily. 7. Twice weekly NST and weekly BPP starting at 32 weeks, reports her plan is BPP/NST here on Thursday, NST done yesterday at primary OB. 8. Recommended Yasmeen to eat her last meal of the day around 2100 and have a snack vs. another meal at midnight. Stressed importance of adequate protein intake with meals and snacks. CDE is working for approval of continues glucose monitor for patient for better evaluation of glucoses over night. 9. I again reviewed importance of twice daily kick counts, seek OB evaluation with decreased movement promptly. 10. Serial Ultrasound assessment of growth every 3-4 weeks is recommended, with a reassessment between 37-38 weeks for mode of delivery planning. 11. If fasting glucoses remain difficult to control, consider delivery at 36-[address] Zhu today. Assessment & Plan (04/25/2020 5:32 PM REGULATORY COMPLIANCE COORDINATOR): 24 hour urine/CMP: pending hemoglobin A1c: 5.8%, 04/10; Previous A1c: 6% at 12 weeks Compliant with 162 ASA Reports normal dilated eye exam, records requested multiple times and never received echo: completed and appropriate AGA growth with accelerated abdominal circumference Anatomy incomplete as of 04/16 Hyperglycemia persistent with all fasting values and some post prandial values Continues to exercise after meals Did not make changes to insulin as advised last week Reassuring 10 point BPP today MFM plan: 1. Encouraged to check glucoses at least 4x daily, fasting and one hour after each meal. 2. Close contact with our CDE, on at least a weekly basis. 3. Humalog 12 units with breakfast, start 4 units with lunch, and increase to 20 units with dinner, instructed not to give if not planning to eat. Encouraged to try and give 15 minutes prior to eating. 4. Continue morning NPH 20 units, increase night time NPH to 70 units. Instructed to call on Thursday if fasting values remain at or > 100 tomorrow and Thursday morning call for adjustments, or email our CDE. 5. Again instructed to always have a quick acting sugar snack if she becomes hypoglycemic, carry Glucagon. 6. Encouraged walking after meals, goal of 30 minutes of aerobic exercise daily. 7. Twice weekly NST and weekly BPP starting at 32 weeks, reports she is scheduled to do with primary Tour Operator again this Thursday. 8. Reviewed importance of twice daily kick counts, seek OB evaluation with decreased movement promptly. 9. Serial Ultrasound assessment of growth every 3-4 weeks is recommended, with a reassessment between 37-38 weeks for mode of delivery planning. 10. After hours emergency number reviewed with Yasmeen. 11. Recommend initiation of delivery at 39 weeks 12. Encourage 2 hour GTT at 4 weeks PP, to be reviewed at 6 week PP exam. 13. Sent with order for protein/creatinine ratio urine, and CMP, to be collected at OB visit on Thursday. Having insurance issues at local lab. Assessment & Plan (04/11/2020 11:49 AM REGULATORY COMPLIANCE COORDINATOR): 24 hour urine/CMP: pending, has to re-do d/t urine spilling at lab hemoglobin A1c: 5.8%, 04/10; Previous A1c: 6% at 12 weeks Compliant with 162 ASA Reports normal dilated eye exam, records requested again today echo: scheduled next week AGA growth, anatomy incomplete as of 03/21 Hyperglycemia persistent with fasting values and some post prandial values Interested in adding exercise MFM plan: 1. Encouraged to check glucoses at least 4x daily, fasting and one hour after each meal. 2. Close contact with our CDE, on at least a weekly basis, call emergency number with significant elevations or hypoglycemia, reviewed after hours number. . 3. Humalog 8 units with breakfast and 16 units with dinner, instructed not to give if not planning to eat. Encouraged to try and give 15 minutes prior to eating. 4. Continue morning NPH 16 units, increase night time NPH to 50 units. HS NPH titration: increase dose by 2 units when 2 consecutive fasting levels are 90 or above. 5. Discussed pathology behind insulin resistance in the third trimester and importance of following carbohydrate recommendations with meals and snacks. Encouraged food logging and bedtime snack with carb and protein. and risks again reviewed with persistent hyperglycemia. 6. Again instructed to always have a quick acting sugar snack if she becomes hypoglycemic, carry Glucagon. 7. Encouraged walking after meals, goal of 30 minutes of aerobic exercise daily. 8. Twice weekly NST and weekly BPP starting at 32 weeks, reports she is scheduled to do with primary Tour Operator. 9. Reviewed importance of twice daily kick counts, seek OB evaluation with decreased movement promptly. 10. Serial Ultrasound assessment of growth every 3-4 weeks is recommended, with a reassessment between 37-38 weeks for mode of delivery planning. Growth is due next week. 11. echo next week, indications reviewed with patient. 12. Recommend initiation of delivery at 39 weeks 13. Encourage 2 hour GTT at 4 weeks PP, to be reviewed at 6 week PP exam. Assessment & Plan (03/28/2020 12:49 PM REGULATORY COMPLIANCE COORDINATOR): 24 hour urine/CMP/hemoglobin A1c: plans to do this weekend Previous A1c: 6% at 12 weeks Compliant with 162 ASA Reports normal dilated eye exam, records requested echo: pending scheduling by care AGA growth, anatomy incomplete as of 03/21 Hyperglycemia noted with fasting values, and post-prandial breakfast and dinner Making strong dietary efforts MFM plan: 1. Encouraged to check glucoses at least 4x daily, fasting and one hour after each meal. 2. Close contact with our CDE, on at least a weekly basis, rright now twice weekly basis. 3. Option given to stop Metformin, reviewed that now that she is requiring insulin, may not add much benefit to glycemic control that cannot be addressed with insulin. Further, there is recent data that shows children exposed to Metformin during may be heavier, larger waist circumference, higher fat masses at age 4 and 9. Thus, we suspect Metformin could be affect metabolic programming while the fetus is in utereo, for C childhood. Long-term data is needed. Resume Metformin following delivery, and it is compatible with . 4. Start Humalog 4 units with breakfast and 8 units with dinner, instructed not to give if not planning to eat. 5. Increase morning NPH to 18 units, increase night time NPH to 42 units. Reviewed if fastings persistently elevated may increase by 2 units every 3 days, times two, over the next week. 6. Instructed by CDE on use of Glucagon today. Instructed to always have a quick acting sugar snack if she becomes hypoglycemic. 7. Reviewed after hours [facility] triage number to call with any concerns. 8. Twice weekly NST and weekly BPP starting at 32 weeks. 9. Reviewed importance of twice daily kick counts, seek OB evaluation with decreased movement promptly. 10. Serial Ultrasound assessment of growth every 3-4 weeks is recommended, with a reassessment between 37-38 weeks for mode of delivery planning. 11. Recommend initiation of delivery at 39 weeks 12. 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 (A FLURIA, FLUZONE QUADRIVALENT; 6MO+) (IIV4) 01/18/2018,12/29/2016,12/20/2015 INFLUENZA VACCINE, QUADR. (F LUZONE; FLULAVAL; FLUARIX; AFLURIA QUADRIVALENT; 6MO+), 0.5 ML (IIV4) 02/05/2023,04/16/2020,02/04/2019,2014 INFLUENZA VACCINE, TRIV. (FL UZONE; FLULAVAL; FLUARIX; AFLURIA TRIVALENT; 6MO+), 0.5 ML (IIV3) 03/01/2024 PNEUMOCOCCAL PPV VACCINE 07/02/2018 TDAP, HISTORIC VACCINE 04/16/2020,01/02/2015 Social History Tobacco Use Types Packs/Day Years [...] and heating? Not hard at all 02/24/2024 [facility] [place] [facility] Occupat ional Health - Occupational Stress [...] things needed for daily living? No 02/24/2024 [place] Depression Scale Answer Date Recorded [place] Depression Scale Total 1 03/01/2024 The thought [...] any time in the [facility], were you homeless or living in a [facility] (including now)? Yes 02/24/2024 Estimated Date of [...] 36.6 C (97.8 F) 02/28/2024 2:00 PM REGULATORY COMPLIANCE COORDINATOR Respiratory Rate 18 03/15/2024 3:40 PM REGULATORY COMPLIANCE COORDINATOR Oxygen Saturation 98% 02/28/2024 5:00 PM REGULATORY COMPLIANCE COORDINATOR Inhaled Oxygen Concentration - - Weight 103.4 kg (228 lb) 06/28/2024 3:13 PM CDT Height 162.6 cm (5' 4 ) 06/08/2024 12:59 PM REGULATORY COMPLIANCE COORDINATOR Body Mass Index 39.14 06/08/2024 12:59 PM REGULATORY COMPLIANCE COORDINATOR Plan of Treatment Upcoming Encounters Date Type Department Care Team (Late st Contact Info) Description 07/12/2024 2:30 PM CDT Appointment [facility] MATERNAL/ EVALUATION UNIT [address] [place] [address] 07/20/2024 1:45 PM CDT Appointment [facility] - Cardiology [address] [place] [address] Moe Blackwell MD [address] [facility] [address] [place] [address] 07/20/2024 1:45 PM CDT Appointment [facility] - Cardiology [address] [place] [address] Sandy Perez MD [address] [place] [address] 07/26/2024 2:15 PM CDT Appointment [facility]/ EVALUATION UNIT [address] [place] [address] Procedures Procedure Name Priority Date/Time Associated Diagnosis Comments WET PREP SMEAR - POINT OF CARE (IP) Routine 06/28/2024 4:19 PM CDT Vaginitis affecting in second trimester, antepartum (HCC) TRICHOMONAS VAGINALIS COLLINS Routine 06/28/2024 4:15 PM CDT Vaginitis affecting in second trimester, antepartum (HCC) CHLAMYDIA AND N. 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) GLUCOSE - POINT OF CARE Routine 06/08/2024 1:49 PM REGULATORY COMPLIANCE COORDINATOR EKG 12-LEAD Routine 06/08/2024 1:47 PM REGULATORY COMPLIANCE COORDINATOR Morbid obesity with BMI of 40.0-44.9, adult (HCC) URINALYSIS - POCT (IP) BEAKER INTERFACE Routine 06/08/2024 1:02 PM REGULATORY COMPLIANCE COORDINATOR SONOGRAM - COMPLETE Routine 05/31/2024 2 :18 PM REGULATORY COMPLIANCE COORDINATOR URINALYSIS - POCT (IP) BEAKER INTERFACE Routine 05/10/2024 2:12 PM REGULATORY COMPLIANCE COORDINATOR URINALYSIS - POCT (IP) BEAKER INTERFACE Routine 04/26/2024 2:04 PM REGULATORY COMPLIANCE COORDINATOR FIRST TRI NUCHAL TRANSLUCENCY W:SEQ SCREEN Routine 04/05/2024 3:39 PM REGULATORY COMPLIANCE COORDINATOR Type 2 diabetes mellitus with other specified complication, with long-term current use of insulin (HCC) URINALYSIS - POCT (IP) BEAKER INTERFACE Routine 04/05/2024 2:40 PM REGULATORY COMPLIANCE COORDINATOR ANEUPLOIDY SCREENING Routine 04/05/2024 HEPATITIS C ANTIBODY Routine 03/01/2024 4:35 PM REGULATORY COMPLIANCE COORDINATOR Pre-existing type 2 diabetes mellitus during , antepartum (HCC) Supervision of high-risk of young primigravida (HCC) PAP IG LB+HPV APTIMA Routine 03/01/2024 4:35 PM REGULATORY COMPLIANCE COORDINATOR Supervision of high-risk of young primigravida (HCC) HIV-1 HIV-2 ANTIBODY + HIV P24 AG PANEL Routine 03/01/2024 4:35 PM REGULATORY COMPLIANCE COORDINATOR Pre-existing type 2 diabetes mellitus during , antepartum ([facility]) Supervision of high-risk of young primigravida ([facility]) COMPREHENSIVE METABOLIC PANEL STAT 02/28/2024 2:11 PM REGULATORY COMPLIANCE COORDINATOR from Last 3 Months or Most Recently Relevant to Health Maintenance Results * (ABNORMAL) WET PREP SMEAR - [...] POINT OF CARE ORDERABLES [facility] POCT TESTING [address] [place] [address], [facility] [phone] * TRICHOMONAS VAGINALIS COLLINS (06/28/2024 4:15 PM CDT) Trichomonas by COLLINS NEGATIVE NEGATIVE 06/29/2024 1:38 PM CDT [facility] MICROBIOLOGY Microbiology (Endocervix - Swab) Collection / Unknown 06/28/2024 4:15 PM CDT 06/28/2024 4:22 PM CDT Lino Lombardo MD LAB - MICROBIOL OGY ORDERABLES [facility] MICROBIOLOGY [address] [phone] * CHLAMYDIA AND N. GONORRHOEAE COLLINS (06/28/2024 4:15 PM CDT) Chlamydia by COLLINS NEGATIVE NEGATIVE 06/29/2024 1:38 PM CDT [facility] MICROBIOLOGY Neisseria gonorrhoeae COLLINS NEGATIVE NEGATIVE 06/29/2024 1:38 PM CDT [facility] MICROBIOLOGY Microbiology (Endocervix - Swab) Collection / Unknown 06/28/2024 4:15 PM CDT 06/28/2024 4:22 PM CDT Lino Lombardo MD LAB - MICROBIOL OGY ORDERABLES [facility] MICROBIOLOGY [address] [place] [address], [facility] [phone] * (ABNORMAL) URINALYSIS - POCT (IP) BEAKER INTERFACE (06/28/2024 3:13 PM CDT) Only the most recent of6 resultswithin the time period is included. Color UA POCT Yellow Straw, Yellow, Dark Yellow, Light Yellow 06/28/2024 3:15 PM CDT [facility] Clarity UA POCT Clear Clear 3:15 PM CDT [facility] Specific [place] UA POCT >=1.030 1.005 - 1.030 06/28/2024 3:15 PM CDT [facility] pH UA POCT 5.5 5.0 - [...] - 1.0 EU/dL 06/28/2024 3:15 PM CDT [facility] Urine URINE / Unknown 06/28/2024 3 :13 PM CDT 06/28/2024 3:15 PM CDT Eduar Hernandez MD LAB - POINT OF CARE ORDERABLES [facility] [address] [place] [address] * SONOGRAM - COMPLETE (06/28/2024 2:29 PM CDT) Only the most recent of2 resultswithin the time period is included. Linked Results Indication ======== anatomy survey Diabetes mellitus, type II Obesity, Class II History ====== OB History 2. Para 1 [id number] Lab Tests Test Date Result NIPT 04/05/2024 [...] 1 lb 6 oz EFW by Hadlock ([id number]) appropriate Growth Overview Exam date GA BPD [...] Nasal bone. Heart / Thorax RVOT view. 0-scclud-guanrhs view. Situs. Aortic arch view. Bicaval view. [...] 4 weeks for growth Coding ====== Procedures 89088: US Preg Uterus Follow Up [facility] Cloudyn PACS Anatomical Region Laterality Modality Other 06/28/2024 2:29 PM CDT R Twin Aponte MD [facility] ORDERABLES * HEMOGLOBIN A1C (06/08/2024 1:59 PM REGULATORY COMPLIANCE COORDINATOR) Hemoglobin A1c 5.1 <5.7 % 06/08/2024 2:27 PM REGULATORY COMPLIANCE COORDINATOR [facility] Estimated Average Glucose 100 mg/dL 06/08/2024 2:27 PM REGULATORY COMPLIANCE COORDINATOR [facility] Blood BLOOD SPECIMEN / Unknown Venipuncture / Unknown 06/08/2024 1:59 PM REGULATORY COMPLIANCE COORDINATOR 06/08/2024 2:17 PM REGULATORY COMPLIANCE COORDINATOR Narrative [facility] - 06/08/2024 2:27 PM REGULATORY COMPLIANCE COORDINATOR HbA1c Interpretation: Normal: < 5.7% Pre-diabetes: 5.7-6.4% [...] (HbF) exceeds 5% in the specimen. The Arellano Alinity assay for the measurement of HbA1c is a National Glycohemoglobin Standardization Program (NGSP) certified method. Latanya Loomis MD LAB - CHEMISTRY TASHA FORRESTER [facility] Organization Address City/State/ZIP Co de Phone Number [facility] [address] [place] [address] * (ABNORMAL) GLUCOSE - POINT OF CARE (06/08/2024 1:49 PM REGULATORY COMPLIANCE COORDINATOR) Pathologist [facility] Glucose WB/POC 61(L) 70 - 99 mg/dL 06/08/2024 1:55 PM REGULATORY COMPLIANCE COORDINATOR [facility] Specimen Type Cap Fingerstick 2024 1:55 PM REGULATORY COMPLIANCE COORDINATOR [facility] Blood BLOOD SPECIMEN / Unknown 06/08/2024 1:49 PM REGULATORY COMPLIANCE COORDINATOR 06/08/2024 1:55 PM REGULATORY COMPLIANCE COORDINATOR Dave Sevilla MD LAB - POINT OF CARE ORDERABLES Performing Organization Address City/[facility]/ZIP Co de Phone Number [facility] [address] [place] [address] * EKG 12-LEAD (06/08/2024 1:47 PM REGULATORY COMPLIANCE COORDINATOR) [facility] Ventricular Rate 91 BPM [facility] Atrial Rate 91 BPM [facility] P-R Interval 142 ms [facility] QRS Duration ms 86 ms [facility] Q-T Interval ms 362 ms [facility] QTC Calculation (Bezet) 445 ms [facility] Calculated P [place] 46 degrees [facility] Calculated R [place] -27 degrees [facility] Calculated T [place] 44 degrees [facility] Interpretation EKG NORMAL SINUS RHYTHM POSSIBLE LEFT ATRIAL ENLARGEMENT POOR R WAVE PROGRESSION ABNORMAL ECG Confirmed by Stevan Eastman MD ([id number]) on 06/08/2024 1:05:43 PM [facility] MUSE 06/08/2024 1:47 PM REGULATORY COMPLIANCE COORDINATOR 06/08/2024 1:05 PM REGULATORY COMPLIANCE COORDINATOR Mary Sales MD ECG ORDERABLES [facility] MUSE * FIRST TRI NUCHAL TRANSLUCENCY W:SEQ SCREEN (04/05/2024 3:39 PM REGULATORY COMPLIANCE COORDINATOR) Pathologist [facility] Linked Results Indication ======== Diabetes mellitus type II Class II Obesity Early anatomy- pending NIPT drawn 04/05/2024 History ====== OB History 2. Para 1 [id number] Maternal Assessment = Physical Exam Height 163 [...] and transvaginal cervical length Coding ====== Procedures 13531: Nuchal Translucency 85090: US Uterus Limited [facility] Cloudyn PACS Anatomical Region Laterality Modality Other 04/05/2024 3:39 PM REGULATORY COMPLIANCE COORDINATOR Eduar Hernandez MD [facility] ORDERABLES * ANEUPLOIDY SCREENING (04/05/2024) Trisomy 21 Low Risk Trisomy 18 Low Risk Trisomy 13 Low Risk Monosomy X Low Risk Triploidy/Hannah shing Twin NIPT Low Risk Deletion 22q11 (DiGeorge) Low Risk Blood BLOOD SPECIMEN / Unknown 04/05/2024 Elaine Herman RN - 04/11/2024 LOW RISK Predicted Sex: female Fraction: 7.9% Panorama - Vidal Screen Hard copy results available in Media. Dave Sevilla MD LAB - CHEMISTR Y ORDERABLES * PAP IG LB+HPV APTIMA (03/01/2024 4:35 PM REGULATORY COMPLIANCE COORDINATOR) Diagnosis Comment 03/09/2024 5:09 PM REGULATORY COMPLIANCE COORDINATOR [facility] ([facility]) Comment:NEGATIVE FOR INTRAEP ITHELIAL LESION OR MALIGNANCY. Specimen Adequacy Comment 5:09 PM REGULATORY COMPLIANCE COORDINATOR [facility] ([facility]) Comment:Satisfactory for loida luation. No endocervical component is identified. Performed by Comment 03/09/2024 5:09 PM REGULATORY COMPLIANCE COORDINATOR [facility] ([facility]) Comment:Bahrti Ocampo, Cytot echnologist (ASCP) Comment . 03/09/2024 5:09 PM REGULATORY COMPLIANCE COORDINATOR [facility] ([facility]) Note Comment 03/09/2024 5:09 PM REGULATORY COMPLIANCE COORDINATOR [facility] ([facility]) Comment: The Pap smear is a screening test designed to aid in the detection of premalignant and malignant conditions of the uterine cervix. It is not a diagnostic procedure and should not be used as the sole means of detecting cervical cancer. Both false-positive and false-negative reports do occur. IGLBP CPT Code Automation Comment 03/09/2024 5:09 PM REGULATORY COMPLIANCE COORDINATOR [facility] ([facility]) Comment: This liquid based ThinPrep(R) pap test was screened with the use of an image guided system. Human papillomavirus Aptima Negative Negative 03/09/2024 5:09 PM REGULATORY COMPLIANCE COORDINATOR [facility] ([facility]) Comment: This nucleic acid amplification test detects fourteen high-risk HPV types (16,18,31,33,35,39,45,51,52,56,58,59,66,68) without differentiation. Pathology/Cytolo gy PART OF UTERINE CERVIX / Unknown Collection / Unknown 03/01/2024 4:35 PM REGULATORY COMPLIANCE COORDINATOR 03/01/2024 4:54 PM REGULATORY COMPLIANCE COORDINATOR Narrative [facility] ([facility]) - 03/09/2024 5:09 PM REGULATORY COMPLIANCE COORDINATOR Performed at: - [address] [id number] Donations Attendant: Kaylee Torres MD, Phone: [phone] Performed at: - [address] [id number] Donations Attendant: Kaylee Torres MD, Phone: [phone] Specimen Comment: Source.............Cervix Specimen Comment: LMP / Prev Treat...Terrell / BX Specimen Comment: No. of containers..01 ThinPrep Vial Lino Lombardo MD LAB - PATHOLOGY /CYTOLOGY ORDERABLES Performing Organization Address City/[facility]/ZIP Co de Phone Number [facility]) [address] [place] [address] * HIV-1 HIV-2 ANTIBODY + HIV P24 AG PANEL (03/01/2024 4:35 PM REGULATORY COMPLIANCE COORDINATOR) HIV1/2 Ab + P24 Ag Non Reactive Non Reactive 03/01/2024 5:51 PM REGULATORY COMPLIANCE COORDINATOR [facility] Blood BLOOD SPECIMEN / Unknown Venipuncture / Unknown 03/01/2024 4:35 PM REGULATORY COMPLIANCE COORDINATOR 03/01/2024 4:53 PM REGULATORY COMPLIANCE COORDINATOR Narrative [facility] - 03/01/2024 5:51 PM REGULATORY COMPLIANCE COORDINATOR No Laboratory evidence of HIV infection. Lino Lombardo MD LAB - CHEMISTRY ORDERABLES [facility] [address] [place] [address] * HEPATITIS C ANTIBODY (03/01/2024 4:35 PM REGULATORY COMPLIANCE COORDINATOR) HCV Antibody Screen Non Reactive Non Reactive 03/01/2024 5:51 PM REGULATORY COMPLIANCE COORDINATOR [facility] Blood BLOOD SPECIMEN / Unknown Venipuncture / Unknown 03/01/2024 4:35 PM REGULATORY COMPLIANCE COORDINATOR 03/01/2024 4:53 PM REGULATORY COMPLIANCE COORDINATOR [facility] - 03/01/2024 5:51 PM REGULATORY COMPLIANCE COORDINATOR Non Reactive - Antibodies to Hepatitis C virus (HCV) were not detected, result does not exclude early acute HCV infection. Lino Lombardo MD LAB - CHEMISTRY ORDERABLES [facility] [address] [place] [address] * (ABNORMAL) COMPREHENSIVE METABOLIC PANEL (02/28/2024 2:11 PM REGULATORY COMPLIANCE COORDINATOR) Glucose 114(H) 70 - 99 mg/dL 02/28/2024 2:32 PM [facility] Sodium 138 136 - 145 mmol/L 02/28/2024 2:32 PM [facility] Potassium 3.7 3.5 - 5.1 mmol/L 02/28/2024 2:32 PM [facility] Chloride 109(H) 98 - 107 mmol/L 02/28/2024 2:32 PM [facility] CO2 23 22 - 29 mmol/L 02/28/2024 2:32 PM [facility] Calcium 9.0 8.4 - 10.4 mg/dL 02/28/2024 2:32 PM [facility] Anion Gap 6 6 - 16 mmol/L 02/28/2024 2:32 PM [facility] BUN 8 5.3 - 18.7 mg/dL 02/28/2024 2:32 PM [facility] Creatinine 0.76 0.57 - 1.11 mg/dL 02/28/2024 2:32 PM [facility] Alkaline Phosphatase 67 40 - 150 U/L 02/28/2024 2:32 PM [facility] ALT 11 0 - 55 U/L 02/28/2024 2:32 PM [facility] AST 15 5 - 34 U/L 02/28/2024 2:32 PM [facility] Protein Total 7.0 6.4 - 8.3 gm/dL 02/28/2024 2:32 PM [facility] Albumin 3.4 3.4 - 5.0 gm/dL 02/28/2024 2:32 PM REGULATORY COMPLIANCE COORDINATOR [facility] Bilirubin Total 0.4 0.2 - 1.2 mg/dL 02/28/2024 2:32 PM REGULATORY COMPLIANCE COORDINATOR [facility] eGFR by CKD-EPI >90 >=90 mL/min/1.7 3 m2 02/28/2024 2:32 PM REGULATORY COMPLIANCE COORDINATOR [facility] Blood BLOOD SPECIMEN / Unknown Venipuncture / Unknown 02/28/2024 2:11 PM REGULATORY COMPLIANCE COORDINATOR 02/28/2024 2:16 PM REGULATORY COMPLIANCE COORDINATOR Robert Haddad PA-C LAB - CHEMISTRY O RDERABLES [facility] [address] [place] [address] from Last 3 Months or Most Recently Relevant to Health Maintenance Care Teams Control Equipment Electrician Relationship Specialty Start Date End Date Chuck Nelson APRN-EMILY [address] [place] [phone] PCP - General Nurse Practitioner 08/25/22
--- OUTSIDE RECORDS SUMMARY | 2024-07-04 19:08 | XMS_ITS | Clinical Summary ---
Author Organization [facility] Address [address] [facility] [place] [address] Care Team Providers Care Manager Women Name Role Phone Chuck Nelson Marcelo TECHNOLOGY COACH-COLD WATER MACHINE OPERATOR Primary Care Pro vider Source Comments [facility],non-owned Affiliates and Associated Physician Practices is amultiple site organization consisting of ambulatory clinics and hospital sitesin [place], [place], [place] and [place]. This disclosure is being madepursuant to the Care Everywhere program and may not contain all information available regarding this patient. Last updated 18.[facility] [employer] Allergies Active Allergy Reactions Criticality Noted Date [...] type 2 diabetes mellitus during , antepartum (HCC),Type 2 diabetes mellitus with stage 1 chronic kidney disease, with long-term current use of insulin ([facility]) Use 1 Each as directed 1 kit 4 Active blood glucose (OneTouch Verio) test stripIndications :Pre-existing type 2 diabetes mellitus during , antepartum ([facility]),Type 2 diabetes mellitus with stage 1 chronic kidney disease, with long-term current use of insulin ([facility]) To monitor blood glucose (sugar) 4x daily- fasting and 1 hour after meals 100 strip 5 4 Active Lancets (ONETOUCH DELICA PLUS 33G EXTRA FINE LANCET)Indicatio ns:Pre-existing type 2 diabetes mellitus during , antepartum ([facility]),Type 2 diabetes mellitus with stage 1 chronic kidney disease, with long-term current use of insulin ([facility]) To monitor blood glucose (sugar) 4x daily- fasting and 1 hour after meals 100 Each 5 4 Active Vit-Fe Fumarate-FA ( ONE DAILY PO) Active Glucagon (Baqsimi One Pack) 3 MG/DOSE POWD [place] 1 Each into the nose as needed 1 Each 4 Active Additional Information Patient not taking.Reason: Other, Reported on 06/08/2024 Continuous Glucose Sensor (Dexcom G7 Sensor) MISCIndications: Pre-existing type 2 diabetes mellitus during , antepartum ([facility]) Use 1 Each Continuous for 10 days [...] type 2 diabetes mellitus during , antepartum ([facility]) Take 2 (two) tablets by mouth once daily 100 tablet 1 4 Active Insulin Pen Needle (TechLite Pen [place]) 32G X 4 MM MISCIndications: Pre-existing type 2 diabetes mellitus during , antepartum ([facility]) Use 1 Each 5 times daily 150 Each 5 4 Active Vit-Fe Fumarate-FA (M-Raz Plus) 27-1 MG TABS Take 1 tablet [...] 2 diabetes mellitus with hyperglycemia, unspecified whether detention insulin use (HCC) Inject 14 units in the morning and 14 units at bedtime. Take dosages approximately 12 hours apart. Increase dose as directed due to increasing insulin requirements during . Max total daily dose = 50u 15 mL 5 5 Active insulin lispro (HumaLOG;ADMelog ) 100 UNIT/ML penIndications:T ype 2 diabetes mellitus with hyperglycemia, unspecified whether exterminator helper termite insulin use (HCC) Inject 6u before small [...] 2 diabetes mellitus with hyperglycemia, unspecified whether exterminator helper termite insulin use (HCC) Inject 6u before small [...] 348K. Assessment & Plan (05/16/2020 12:49 PM NECKTIE OPERATOR POCKETS AND PIECES): Resolution of headaches continues. Preeclampsia work up [...] triage. Assessment & Plan (05/09/2020 2:03 PM NECKTIE OPERATOR POCKETS AND PIECES): Resolution of headaches this week. Preeclampsia work up negative on 04/30: PCR: 0.18, AST: 25, ALT: 35, creatinine: 0.50, platelets: 348K. Normotensive today. Asymptomatic for preeclampsia. MFM Plan: 1. Encouraged to continue to monitor for preeclampsia symptoms and if headache not relieved with interventions, to always alert primary OB or seek OB evaluation at OB triage. 2. Riboflavin instructions given to picking crew supervisor OTC.. Assessment & Plan (05/02/2020 11:59 AM NECKTIE OPERATOR POCKETS AND PIECES): Noticing headaches first thing in the morning [...] CF screen-Neg, NIPS(nipt)- Negative, Sequential 2- Negative 11.5/34.1 Pre-existing type 2 diabetes mellitus during , antepartum 03/13/2020 Overview (04/06/2020): 04/02/20 HGA1c= 5.8 Assessment & Plan (05/23/2020 12:34 PM NECKTIE OPERATOR POCKETS AND PIECES): 24 hour urine/CMP: 04/30: PCR: 0.18, AST: [...] office who agreed. Recommendation given to primary Pallet Stone Inserter and patient sent to [facility] today [...] this time until she receives instruction at [facility]. 6. Benefit from close relationship with PCP following delivery. Recommend and PP weight reduction. Discussed in detail today both maternal and benefits of . Assessment & Plan (05/16/2020 1:23 PM NECKTIE OPERATOR POCKETS AND PIECES): 24 hour urine/CMP: 04/30: PCR: 0.18, AST: [...] delivery planning. 9. Sent to L/D at [facility] for continuous monitoring. Report called to both L/D and primary Pallet Stone Inserter's office regarding office visit today and decreased [...] reduction. Assessment & Plan (05/09/2020 12:01 PM NECKTIE OPERATOR POCKETS AND PIECES): 24 hour urine/CMP: 04/30: PCR: 0.18, AST: 25, ALT: 35, creatinine: 0.50. hemoglobin A1c: 5.8%, 04/10; Previous A1c: 6% at 12 weeks. Reports normal dilated eye exam, records requested multiple times and never received. echo: completed and appropriate. Serial vpbjan03/28: EFW: 87% and 2028grams, AC: 95%. Anatomy [...] monitor. Assessment & Plan (05/02/2020 12:25 PM NECKTIE OPERATOR POCKETS AND PIECES): 24 hour urine/CMP: 04/30: PCR: 0.18, AST: [...] today. Assessment & Plan (04/25/2020 5:32 PM NECKTIE OPERATOR POCKETS AND PIECES): 24 hour urine/CMP: pending hemoglobin A1c: 5.8%, [...] she is scheduled to do with primary Pallet Stone Inserter again this Thursday. 8. Reviewed importance of [...] lab. Assessment & Plan (04/11/2020 11:49 AM NECKTIE OPERATOR POCKETS AND PIECES): 24 hour urine/CMP: pending, has to re-do [...] she is scheduled to do with primary Pallet Stone Inserter. 9. Reviewed importance of twice daily kick [...] exam. Assessment & Plan (03/28/2020 12:49 PM NECKTIE OPERATOR POCKETS AND PIECES): 24 hour urine/CMP/hemoglobin A1c: plans to do [...] she becomes hypoglycemic. 7. Reviewed after hours [facility] triage number to call with any concerns. [...] Overview (04/05/2024): Insulin resistance;Recorded Elsewhere: No Location: [facility] Source: EHR Chronic: N Practice ID: [id number] Billable Time: 09:45:00 AM PCOS (polycystic ovarian syndrome) 11/16/2013 Estimated Date of Delivery Comme nts Yes 10/19/2024 Based on last me nstrual period of 01/13/2024 Resolved Problems Problem Noted Date Diagnosed Date Resolved Date Steatosis of liver 04/14/2023 Varicose veins of lower extr emity with inflammation 05/01/2022 04/05/2024 Allergy to fish 02/06/2022 04/05/2024 Vitamin D deficiency 11/04/2021 024 Abnormal cervical Papanicolaou smear 11/09/2019 04/05/2024 Overview (04/05/2024): 2015 Encounters Date Type Department Care Team Description 06/28/2024 2:14 PM CDT - 06/28/2024 11:59 PM CDT Hospital Encounter [facility] MATERNAL/ EVALUATION UNIT [address] [place] [address] Eduar Hernandez MD Chavan, Niraj R, MD Discharge Disposition: Home or Self Care 06/28/2024 2:14 PM CDT - 06/28/2024 11:59 PM CDT Hospital Encounter [facility]ERNAL/ EVALUATION UNIT [address] [place] [address] Eduar Hernandez MD Chavan, Niraj R, MD Discharge Disposition: Home or Self Care 06/28/2024 2:14 PM CDT Hospital Encounter [facility] MATERNAL/ EVALUATION UNIT [address] [place] [address] Eduar Hernandez MD Discharge Disposition: Home or Self Care 06/28/2024 Travel 06/15/2024 12:34 PM NECKTIE OPERATOR POCKETS AND PIECES - 06/15/2024 11:59 PM NECKTIE OPERATOR [employer]ETS AND PIECES Hospital Encounter [facility] MATERNAL/ EVALUATION UNIT [address] [place] [address] Nhi Walker APRN-EMILY Discharge Disposition: Home or Self Care 06/15/2024 12:34 PM NECKTIE OPERATOR [employer]OCKETS AND PIECES - 06/15/2024 11:59 PM NECKTIE OPERATOR [employer]OCKETS AND PIECES Hospital Encounter [facility] MATERNAL/ EVALUATION UNIT [address] [place] [address] Nhi Walker APRN-COLD WATER MACHINE OPERATOR Discharge Disposition: Home or Self Care 06/15/2024 Travel 06/14/2024 Telephone [facility] MATERNAL/ EVALUATION UNIT [address] [place] [address] RameshElizabeth fisher Scheduling 06/08/2024 12:53 PM NECKTIE OPERATOR POCKETS AND PIECES - 06/08/2024 11:59 PM NECKTIE OPERATOR POCKETS AND PIECES Hospital Encounter [facility] MATERNAL/ EVALUATION UNIT [address] [place] [address] Dave Sevilla MD Discharge Disposition: Home or Self Care 06/08/2024 12:53 PM NECKTIE OPERATOR POCKETS AND PIECES - 06/08/2024 11:59 PM NECKTIE OPERATOR [employer]OCKETS AND PIECES Hospital Encounter [facility] MATERNAL/ EVALUATION UNIT [address] [place] [address] Dave Sevilla MD Discharge Disposition: Home or Self Care 06/08/2024 12:30 PM NECKTIE OPERATOR [employer]OCKETS AND PIECES Procedure visit [facility] [address] [place] [address] [address] [place] [id number] Mary Sales MD Morbid obesity with BMI of 40.0-44.9, adult ([facility]) 06/08/2024 Travel 06/07/2024 Telephone [facility] [address] [place] [address] Taylor Yeboah Future Appointment 05/31/2024 1:47 PM NECKTIE OPERATOR POCKETS AND PIECES - 05/31/2024 11:59 PM NECKTIE OPERATOR [employer]OCKETS AND PIECES Hospital Encounter [facility] MATERNAL/ EVALUATION UNIT [facility] [place] [address] Bird Stevenson MD Discharge Disposition: Home or Self Care 05/31/2024 Travel 05/24/2024 Orders Only [facility] MATERNAL/ EVALUATION UNIT [facility] [place] [address] Qiana Mcfarlane, RD/LD 05/23/2024 Refill [facility]ERNAL/ EVALUATION UNIT [address] [place] [address] Luana Plummer MD MEDICATION REFILL 05/10/2024 1:56 PM NECKTIE OPERATOR POCKETS AND PIECES - 05/10/2024 11:59 PM NECKTIE OPERATOR POCKETS AND PIECES Hospital Encounter [facility] MATERNAL/ EVALUATION UNIT [address] [place] [address] Luana Plummer MD Discharge Disposition: Home or Self Care 05/10/2024 1:56 PM NECKTIE OPERATOR POCKETS AND PIECES - 05/10/2024 11:59 PM NECKTIE OPERATOR POCKETS AND PIECES Hospital Encounter [facility] MATERNAL/ EVALUATION UNIT [address] [place] [address] Luana Plummer MD Discharge Disposition: Home or Self Care 05/10/2024 Travel 04/26/2024 1:48 PM NECKTIE OPERATOR POCKETS AND PIECES - 04/26/2024 11:59 PM NECKTIE OPERATOR POCKETS AND PIECES Hospital Encounter [facility] MATERNAL/ EVALUATION UNIT [address] [place] [address] Eduar Hernandez MD Mostello, Dorothea Jean, MD Discharge Disposition: Home or Self Care 04/26/2024 1:48 PM NECKTIE OPERATOR POCKETS AND PIECES - 04/26/2024 11:59 PM NECKTIE OPERATOR POCKETS AND PIECES Hospital Encounter [facility] MATERNAL/ EVALUATION UNIT [address] [place] [address] Eduar Hernandez MD Mostello, Dorothea Jean, MD Discharge Disposition: Home or Self Care 04/26/2024 Travel 04/11/2024 Telephone [facility] MATERNAL/ EVALUATION UNIT [address] [place] [address] Elaine Sorenson, BRIGIDO Results 04/05/2024 2:01 PM NECKTIE OPERATOR POCKETS AND PIECES - 04/05/2024 11:59 PM NECKTIE OPERATOR POCKETS AND PIECES Hospital Encounter [facility] MATERNAL/ EVALUATION UNIT [address] [place] [address] Eduar Hernandez MD Discharge Disposition: Home or Self Care 04/05/2024 2:00 PM NECKTIE OPERATOR POCKETS AND PIECES Hospital Encounter [facility] MATERNAL/ EVALUATION UNIT [address] [place] [address] Luana Plummer MD Discharge Disposition: Home or Self Care 04/05/2024 2:00 PM NECKTIE OPERATOR POCKETS AND PIECES Hospital Encounter [facility] MATERNAL/ EVALUATION UNIT [address] [place] [id number] Luana Plummer MD Discharge Disposition: Home or Self Care 04/05/2024 Travel from Last 3 Months Immunizations Name Administration Dates Next Due Covid [...] PPV VACCINE 07/02/2018 TDAP, HISTORIC VACCINE 04/16/2020,01/02/2015 Family History Medical History Relation Name Comments Diabetes; unknown type Father High Cholesterol Father Cancer - Liver Maternal Grandfather Diabetes; unknown type Maternal Grandfather Diabetes; unknown type Maternal Grandmother Cancer - Ovarian Paternal Aunt 1 diagnose d in 50s Cancer - Breast Paternal Aunt 2 diagnosed in 50s CAD (Coronary Artery Disease) Paternal Grandfather Diabetes; unknown type Paternal Grandfather Diabetes; unknown type Paternal Grandmother Cancer - Colon Neg Hx Cancer - Prostate Neg Hx Cancer - Uterine Neg Hx Other - Defects Neg Hx Sudd. <30 Neg Hx Relation Name Status Comments Father Alive Maternal Grandfather Alive Maternal Grandmother Alive Mother Alive Paternal Aunt 1 Paternal Aunt 2 Alive Paternal Grandfather Paternal Grandmother Alive Social History Tobacco Use Types Packs/Day Years [...] and heating? Not hard at all 02/24/2024 [facility] of Occupat ional Health - Occupational Stress [...] things needed for daily living? No 02/24/2024 [place] Depression Scale Answer Date Recorded [place] Depression Scale Total 1 03/01/2024 The thought [...] any time in the past 12 m [facility], were you homeless or living in a intermediate (including now)? Yes 02/24/2024 Estimated Date of [...] 36.6 C (97.8 F) 02/28/2024 2:00 PM NECKTIE OPERATOR POCKETS AND PIECES Respiratory Rate 18 03/15/2024 3:40 PM NECKTIE OPERATOR [employer]OCKETS AND PIECES Oxygen Saturation 98% 02/28/2024 5:00 PM NECKTIE OPERATOR [employer]OCKETS AND PIECES Inhaled Oxygen Concentration - - Weight 103.4 kg (228 lb) 06/28/2024 3:13 PM CDT Height 162.6 cm (5' 4 ) 06/08/2024 12:59 PM NECKTIE OPERATOR POCKETS AND PIECES Body Mass Index 39.14 06/08/2024 12:59 PM NECKTIE OPERATOR POCKETS AND PIECES Plan of Treatment Upcoming Encounters Date Type Department Care Team (Late st Contact Info) Description 07/12/2024 2:30 PM CDT Appointment [facility] MATERNAL/ EVALUATION UNIT [address] [place] [address] 07/20/2024 1:45 PM CDT Appointment [facility] Pediatrics - Cardiology [address] [place] [phone] Moe Blackwell MD [address] [facility] [address] [place] [phone] 07/20/2024 1:45 PM CDT Appointment [facility] Pediatrics - Cardiology [address] [place] [phone] Sandy Perez MD [address] [place] [address] 07/26/2024 2:15 PM CDT Appointment [facility] MATERNAL/ EVALUATION UNIT [address] [place] [address] Health Maintenance Due Date Last Done Comments HEPATITIS B VACCINE (1 of 3 - 19+ 3-dose series) 2008 PNEUMOCOCCAL VACCINE (2 of 2 - PCV) 07/03/2019 07/02/2018 DIABETES RETINOPATHY SCREENING 08/25/2022 DIABETES-FOOT EXAM WITH MONOFILAMENT 08/25/2022 COVID-19 VACCINE ( season) 2023 06/05/2021, 06/05/2021, 05/15/2021, Additional history exists DEPRESSION SCREENING 04/20/2024 03/01/2024 DIABETES - URINE PROTEIN SCREENING 04/20/2024 OB-ONE HOUR GLUCOSE 07/13/2024 OB-TDAP CURRENT 07/20/2024 04/16/2020, DIABETES-HGB A1C 12/06/2024 06/08/2024, 03/2024, 09/24/2023 DIABETES-SERUM CREATININE 02/27/2025 02/28/2024 PAP with HPV 03/01/2029 03/01/2024 DTAP/TDAP/TD VACCINES (3 - Td or Tdap) 04/16/2030 04/16/2020, 01/02/2015 ZOSTER VACCINE (1 of 2) 12/26/2039 HPV VACCINE Completed 09/03/2023, 05/2023, 03/09/2023 HEPATITIS C SCREENING Completed 03/01/2024 HIV SCREENING Completed 03/01/2024 INFLUENZA VACCINE Completed 03/01/2024, , 01/30/2022, Additional history exists HIB VACCINE Aged Out No longer eligi ble based on patient's age to complete this topic MENINGOCOCCAL (Group B) VACCINE SHARED DECISION-MAKING Aged Out No longer eligible based on patient's age to complete this topic MENINGOCOCCAL GROUPS A/C/Y/W VACCINE Aged Out No longer eligible based on patient's age to complete this topic Respiratory Syncytial Virus (RSV) Vaccine Pt: or over 60 yrs (No Doses Required) Completed Procedures Procedure Name Priority Date/Time Associated Diagnosis [...] (IP) BEAKER INTERFACE Routine 06/15/2024 12:41 PM NECKTIE OPERATOR [employer]OCKETS AND PIECES HEMOGLOBIN A1C Routine 06/08/2024 1:59 PM NECKTIE OPERATOR [employer]OCKETS AND PIECES Type 2 diabetes mellitus with hyperglycemia, unspecified whether exterminator helper termite insulin use (HCC) GLUCOSE - POINT OF CARE Routine 06/08/2024 1:49 PM NECKTIE OPERATOR POCKETS AND PIECES EKG 12-LEAD Routine 06/08/2024 1:47 PM NECKTIE OPERATOR [employer]OCKETS AND PIECES Morbid obesity with BMI of 40.0-44.9, adult (HCC) URINALYSIS - POCT (IP) BEAKER INTERFACE Routine 06/08/2024 1:02 PM NECKTIE OPERATOR POCKETS AND PIECES SONOGRAM - COMPLETE Routine 05/31/2024 2 :18 PM NECKTIE OPERATOR POCKETS AND PIECES URINALYSIS - POCT (IP) BEAKER INTERFACE Routine 05/10/2024 2:12 PM NECKTIE OPERATOR POCKETS AND PIECES URINALYSIS - POCT (IP) BEAKER INTERFACE Routine 04/26/2024 2:04 PM NECKTIE OPERATOR POCKETS AND PIECES FIRST TRI NUCHAL TRANSLUCENCY W:SEQ SCREEN Routine 04/05/2024 3:39 PM NECKTIE OPERATOR [employer]OCKETS AND PIECES Type 2 diabetes mellitus with other specified complication, with long-term current use of insulin (HCC) URINALYSIS - POCT (IP) BEAKER INTERFACE Routine 04/05/2024 2:40 PM NECKTIE OPERATOR [employer]OCKETS AND PIECES ANEUPLOIDY SCREENING Routine 04/05/2024 HEPATITIS C ANTIBODY Routine 03/01/2024 4:35 PM NECKTIE OPERATOR [employer]ETS [employer] PIECES Pre-existing type 2 diabetes mellitus during , antepartum (HCC) Supervision of high-risk of young primigravida (HCC) PAP IG LB+HPV APTIMA Routine 03/01/2024 4:35 PM NECKTIE OPERATOR [employer]OCKETS AND PIECES Supervision of high-risk of young primigravida (HCC) HIV-1 HIV-2 ANTIBODY + HIV P24 AG PANEL Routine 03/01/2024 4:35 PM NECKTIE OPERATOR [employer]OCKETS AND PIECES Pre-existing type 2 diabetes mellitus during , antepartum (HCC) Supervision of high-risk of young primigravida ([facility]) COMPREHENSIVE METABOLIC PANEL STAT 02/28/2024 2:11 PM NECKTIE OPERATOR POCKETS AND PIECES from Last 3 Months or Most Recently [...] POINT OF CARE ORDERABLES [facility] POCT TESTING [address] [place] [address] * TRICHOMONAS VAGINALIS COLLINS (06/28/2024 4:15 PM CDT) Trichomonas by COLLINS NEGATIVE NEGATIVE 06/29/2024 1:[address] [facility] MICRO[facility] Microbiology (Endocervix - Swab) Collection / Unknown 06/28/2024 4:15 PM CDT 06/28/2024 4:22 PM CDT Lino Lombardo MD LAB - MICROBIOL OGY ORDERABLES [facility]CRO[facility] [address] [place] [address], [facility] [phone] * CHLAMYDIA AND N. GONORRHOEAE COLLINS (06/28/2024 4:15 PM CDT) Chlamydia by COLLINS NEGATIVE NEGATIVE 06/29/2024 1:38 PM CDT [facility]CRO[facility] Neisseria gonorrhoeae COLLINS NEGATIVE NEGATIVE 06/29/2024 1:38 PM CDT [facility] MICROBIOLOGY Microbiology (Endocervix - Swab) Collection / Unknown 06/28/2024 4:15 PM CDT 06/28/2024 4:22 PM CDT Lino Lombardo MD LAB - MICROBIOL OGY ORDERABLES Performing Organization Address City/[facility]/ZIP Co de Phone Number [facility] MICROBIOLOGY [address] [place] [address], [facility] [phone] * (ABNORMAL) URINALYSIS - POCT (IP) BEAKER INTERFACE (06/28/2024 3:13 PM CDT) Only the most recent of6 resultswithin the time period is included. Color UA POCT Yellow Straw, Yellow, Dark Yellow, Light Yellow 06/28/2024 3:15 PM CDT [facility] Clarity UA POCT Clear Clear 5 3:15 PM CDT [facility] Specific [place] UA POCT >=1.030 1.005 - 1.030 06/28/2024 3:15 PM CDT [facility] pH UA POCT 5.5 5.0 - 8.0 pH 06/28/2024 3:15 PM CDT [facility] Protein UA POCT Trace(A) Negative 5 3:15 PM CDT [facility] Blood UA POCT Negative Negative 06/28/2024 3:15 PM CDT [facility] Leukocyte UA POCT Negative Negative 06/28/2024 3:15 PM CDT [facility] Nitrite UA POCT Negative Negative 5 3:15 PM CDT [facility] Glucose UA POCT Negative Negative 3:15 PM CDT [facility] Ketone UA POCT Trace(A) Negative 06/28/2024 3:15 PM CDT [facility] Bilirubin UA POCT Negative Negative 06/28/2024 3:15 PM CDT [facility] Urobilinogen UA POCT 0.2 0.1 - 1.0 EU/dL 06/28/2024 3:15 PM CDT [facility] Urine URINE / Unknown 06/28/2024 3 :13 PM CDT 06/28/2024 3:15 PM CDT Eduar Hernandez MD LAB - POINT OF CARE ORDERABLES Performing Organization Address City/State/[facility] Co de Phone Number [facility] [address] [place] [address] * SONOGRAM - COMPLETE (06/28/2024 2:29 PM CDT) Only the most recent of2 resultswithin the time period is included. Linked Results Indication ======== anatomy survey Diabetes mellitus, type II Obesity, Class II History ====== OB History 2. Para 1 [id number] Lab Tests Test Date Result NIPT 04/05/2024 [...] 1 lb 6 oz EFW by Hadlock ([id number]) appropriate Growth Overview Exam date [place] BPD [...] Nasal bone. Heart / Thorax RVOT view. [id number] view. Situs. Aortic arch view. Bicaval view. [...] 4 weeks for growth Coding ====== Procedures 31845: US Preg Uterus Follow Up . [facility] [place] PACS Anatomical Region Laterality Modality Other 06/28/2024 2:29 PM CDT R Twin Aponte MD [facility] ORDERABLES * HEMOGLOBIN A1C (06/08/2024 1:59 PM NECKTIE OPERATOR POCKETS AND PIECES) Hemoglobin A1c 5.1 <5.7 % 06/08/2024 2:27 PM NECKTIE OPERATOR POCKETS AND PIECES [facility] Estimated Average Glucose 100 mg/dL 06/08/2024 2:27 PM NECKTIE OPERATOR POCKETS AND PIECES [facility] Blood BLOOD SPECIMEN / Unknown Venipuncture / Unknown 06/08/2024 1:59 PM NECKTIE OPERATOR [employer]ETS [employer]ECES 06/08/2024 2:17 PM NECKTIE OPERATOR [employer]ETS AND PIECES Narrative [facility] - 06/08/2024 2:27 PM NECKTIE OPERATOR POCKETS AND PIECES HbA1c Interpretation: Normal: < 5.7% Pre-diabetes: 5.7-6.4% [...] exceeds 5% in the specimen. The Arellano [employer].Men[employer] assay for the measurement of HbA1c is a National Glycohemoglobin Standardization Program (NGSP) certified method. Latanya Loomis MD LAB - CHEMISTRY TASHA FORRESTER Performing Organization Address [facility] Co de Phone Number [facility] [address] [place] [address] * (ABNORMAL) GLUCOSE - POINT OF CARE (06/08/2024 1:49 PM NECKTIE OPERATOR [employer]OCKETS AND PIECES) Pathologist [facility] Glucose WB/POC 61(L) 70 - 99 mg/dL 06/08/2024 1:55 PM NECKTIE OPERATOR [employer]OCKETS AND PIECES [facility] Specimen Type Cap Fingerstick 2024 1:55 PM NECKTIE OPERATOR POCKETS AND PIECES [facility] Blood BLOOD SPECIMEN / Unknown 06/08/2024 1:49 PM NECKTIE OPERATOR [employer]ETS AND PIECES 06/08/2024 1:55 PM NECKTIE OPERATOR [employer]OCKETS AND PIECES Dave Sevilla MD LAB - POINT OF CARE ORDERABLES Performing Organization Address [facility] de Phone Number [facility] [address] [place] [address] * EKG 12-LEAD (06/08/2024 1:47 PM NECKTIE OPERATOR POCKETS AND PIECES) Ventricular Rate 91 BPM [facility] Atrial Rate 91 BPM [facility] P-R Interval 142 ms [facility] QRS Duration ms 86 ms [facility] Q-T Interval ms 362 ms [facility] QTC Calculation (Bezet) 445 ms [facility]USE Calculated P [place] 46 degrees [facility] MUSE Calculated R [place] -27 degrees [facility] M[facility] Calculated T [place] 44 degrees [facility] Interpretation EKG NORMAL SINUS RHYTHM POSSIBLE LEFT ATRIAL ENLARGEMENT POOR R WAVE PROGRESSION ABNORMAL ECG Confirmed by Stevan Eastman MD ([id number]) on 06/08/2024 1:05:43 PM [facility] 06/08/2024 1:47 PM [employer]ECKTIE [employer]PER[employer] 06/08/2024 1:05 PM [employer]IE [employer] Mary Sales MD ECG ORDERABLES [facility] * FIRST TRI NUCHAL TRANSLUCENCY W:SEQ SCREEN (04/05/2024 3:39 PM NECKTIE OPER[employer]) Linked Results Indication ======== Diabetes mellitus type II Class II Obesity Early anatomy- pending NIPT drawn 04/05/2024 History ====== OB History 2. Para 1 [id number] Maternal Assessment = Physical Exam Height 163 [...] and transvaginal cervical length Coding ====== Procedures 60827: Nuchal Translucency 72710: US Uterus Limited [facility] Anatomical Region Laterality Modality Other 04/05/2024 3:39 PM [employer]ECKTIE [employer] Eduar Hernandez MD [facility] ORDERABLES * ANEUPLOIDY SCREENING (04/05/2024) Trisomy 21 [...] PAP IG LB+HPV APTIMA (03/01/2024 4:35 PM NECKTIE O[employer]) Diagnosis Comment 03/09/2024 5:09 PM NECKTIE OPER[employer]ES [facility]) Comment:NEGATIVE FOR INTRAEP ITHELIAL LESION OR MALIGNANCY. Specimen Adequacy Comment 5:09 PM [employer]ECKTIE O[employer] [facility] ([facility]) Comment:Satisfactory for loida luation. No endocervical component is identified. Performed by Comment 03/09/2024 5:09 PM [employer]ECKTIE [employer] [facility] ([facility]) Comment:Bharti Ocampo, Cytot echnologist (ASCP) Comment . 03/09/2024 5:09 PM [employer]KTIE [employer] [facility] ([facility]) Note Comment 03/09/2024 5:09 PM [employer]ECKTIE OPER[employer] [facility] ([facility]) Comment: The Pap smear is a screening test designed to aid in the detection of premalignant and malignant conditions of the uterine cervix. It is not a diagnostic procedure and should not be used as the sole means of detecting cervical cancer. Both false-positive and false-negative reports do occur. [facility] CPT Code Automation Comment 03/09/2024 5:09 PM [employer]ECKTIE [employer] [facility] ([facility]) Comment: This liquid based ThinPrep(R) pap test was screened with the use of an image guided system. Human papillomavirus Aptima Negative Negative 03/09/2024 5:09 PM [employer]KTIE [employer] [facility] ([facility]) Comment: This nucleic acid amplification test detects fourteen high-risk HPV types (16,18,31,33,35,39,45,51,52,56,58,59,66,68) without differentiation. Pathology/Cytolo gy PART OF UTERINE CERVIX / Unknown Collection / Unknown 03/01/2024 4:35 PM [employer]IE [employer] 03/01/2024 4:54 PM [employer]ECKTIE [employer] Narrative [facility] ([facility]) - 03/09/2024 5:09 PM NECKTIE [employer] Performed at: 01 - [address] [id number] Repair Mechanic: Kaylee Torres MD, Phone: [phone] Performed at: 02 - [address] [id number] Repair Mechanic: Kaylee Torres MD, Phone: [phone] Specimen Comment: Source.............Cervix Specimen Comment: LMP / Prev Treat...[place] / BX Specimen Comment: No. of containers..01 ThinPrep Vial Lino Lombardo MD LAB - PATHOLOGY /CYTOLOGY ORDERABLES Performing Organization Address City/[facility] Co de Phone Number [facility] ([facility]) [address] [place] [address] * HIV-1 HIV-2 ANTIBODY + HIV P24 AG PANEL (03/01/2024 4:35 PM NECKTIE OPER[employer]) HIV1/2 Ab + P24 Ag Non Reactive Non Reactive 03/01/2024 5:51 PM NECKTIE OPER[employer] [facility] Blood BLOOD SPECIMEN / Unknown Venipuncture / Unknown 03/01/2024 4:35 PM [employer]ECKTIE [employer] 03/01/2024 4:53 PM [employer]IE [employer] Narrative [facility] - 03/01/2024 5:51 PM NECKTIE [employer] No Laboratory evidence of HIV infection. Lino Lombardo MD LAB - CHEMISTRY ORDERABLES [facility] [address] [place] [address] * HEPATITIS C ANTIBODY (03/01/2024 4:35 PM NECKTIE OPER[employer]) [facility] HCV Antibody Screen Non Reactive Non Reactive 03/01/2024 5:51 PM [facility] Blood BLOOD SPECIMEN / Unknown Venipuncture / Unknown 03/01/2024 4:35 PM NECKTIE O[employer] 03/01/2024 4:53 PM [employer]KTIE [employer] Narrative [facility] - 03/01/2024 5:51 PM NECKTIE O[employer] Non Reactive - Antibodies to Hepatitis C virus (HCV) were not detected, result does not exclude early acute HCV infection. Lino Lombardo MD LAB - CHEMISTRY ORDERABLES [facility] [address] [place] [address] * (ABNORMAL) COMPREHENSIVE METABOLIC PANEL (02/28/2024 2:11 PM NECKTIE OPER[employer]) [facility] Glucose 114(H) 70 - 99 mg/dL 02/28/2024 2:32 PM [facility] Sodium 138 136 - 145 mmol/L 02/28/2024 2:32 PM [facility] Potassium 3.7 3.5 - 5.1 mmol/L 02/28/2024 2:32 PM [facility] Chloride 109(H) 98 - 107 mmol/L 02/28/2024 2:32 PM [facility] CO2 23 22 - 29 mmol/L 02/28/2024 2:32 PM [facility] Calcium 9.0 8.4 - 10.4 mg/dL 02/28/2024 2:32 PM [facility] Anion Gap 6 6 - 16 mmol/L 02/28/2024 2:32 PM [facility] BUN 8 5.3 - 18.7 mg/dL 02/28/2024 2:32 PM [facility] Creatinine 0.76 0.57 - 1.11 mg/dL 02/28/2024 2:32 PM [facility] Alkaline Phosphatase 67 40 - 150 U/L 02/28/2024 2:32 PM [facility] ALT 11 0 - 55 U/L 02/28/2024 2:32 PM NECKTIE OPER[employer] [facility] AST 15 5 - 34 U/L 02/28/2024 2:32 PM NECKTIE OPER[employer] [facility] Protein Total 7.0 6.4 - 8.3 gm/dL 02/28/2024 2:32 PM NECKTIE OPER[employer] [facility] Albumin 3.4 3.4 - 5.0 gm/dL 02/28/2024 2:32 PM NECKTIE OPER[employer] [facility] Bilirubin Total 0.4 0.2 - 1.2 mg/dL 02/28/2024 2:32 PM NECKTIE OPER[employer] [facility] eGFR by CKD-EPI >90 >=90 mL/min/1.7 3 m2 02/28/2024 2:32 PM NECKTIE OPER[employer] [facility] Blood BLOOD SPECIMEN / Unknown Venipuncture / Unknown 02/28/2024 2:11 PM NECKTIE [employer] 02/28/2024 2:16 PM [employer]IE [employer] Robert Haddad PA-C LAB - CHEMISTRY O RDERABLES Performing Organization Address City/State/[facility] Co de Phone Number [facility] [address] [place] [address] from Last 3 Months or Most Recently Relevant to Health Maintenance Care Teams Manager Women Relationship Specialty Start Date End Date Chuck Nelson, [employer] MACHINE OPERATOR [address] [place] [phone] PCP - General Nurse Practitioner 08/25/22
--- OUTSIDE RECORDS SUMMARY | 2024-07-04 19:08 | XMS_ITS | Referral Summary ---
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 Testing performed by: [address] [address] Blood 09/24/2023 8:42 AM CDT 09/24/2023 9:06 AM CDT us Sajan Pollard MD LAB BLOOD ORDERABL ES Final Result [facility] [address] [facility] Department [place] [address] * (ABNORMAL) Hemoglobin A1c (09/24/2023 8:42 AM CDT) Hgb A1C 6.8(H) 4.0 - 5.6 % Comment:Testing performed by : [address] [address] Estimated Average Glucose 148 mg/dL KELLEN TARANGO Comment: The ADA recommends reporting an estimated Average Glucose (eAG) with all Hemoglobin A1c results using the equation derived from a study of 507 normal and diabetic adults. Minority populations were underrepresented and children were not included. (Diabetes Care 31:9625-9393, 2008). The eAG is not equivalent to a fasting glucose. Testing performed by: [facility], [address] [place] [address], [place]., [address] Blood 09/24/2023 8:42 AM CDT 09/24/2023 9:06 AM CDT Marquita TARANGO - 09/24/2023 9:40 AM CDT PRE SURGERY TESTING ONLY us Sajan Pollard MD LAB BLOOD ORDERABL ES Final Result [facility] [address] [facility] Department [place] [address] from Last 3 Months or Most Recently Relevant to Health Maintenance Insurance [facility] [employer] OPEN ACCESS [employer] OPEN ACCESS Care Teams Wood Stock Blank Handler Relationship Specialty Start Date End Date Chuck Nelson NP PCP - General 01/26/19 Christopher Nelson MD [address] [place] [id number] Consulting Physician General Surgery 09/30/23
--- OUTSIDE RECORDS SUMMARY | 2024-07-04 19:09 | XMS_ITS | Data Portability ---
Author Organization Vanna ROMERO Address [address] [place] [address] Care Team Providers Care Ferry Captain Name Role Phone [facility] Aquaculture Director CHUCK CRAIG Primary Care Provider [phone] Assessment No assessment recorded. Plan of Treatment Reminders Order Date Submit Date Provider Last Modified By Organization Details Last Modified Time Details Appointments None recorded. Lab test, urine 2023 024 singh In-Office Order, Internal Use Only DO Not Attach Compendium DO Not Attach Compendium, Do Not Delete/merge, [id number] 13:09:24 lipid panel, serum 2023 024 singh [facility], [address] [place] [address], [address], [place], [address], 4 11:40:06 CBC w/ auto diff 2023 024 [facility], [address] [place] [address], [address], [place], [address], 4 11:40:06 amylase + lipase, serum 2023 024 [facility], [address] [place] [address], [address], [place], [address], 4 11:40:06 Referral None recorded. Procedures None recorded. Surgeries None recorded. Imaging None recorded. Medication Orders aspirin 81 mg tablet,orly rodriguezd release 2023 [facility], [facility] [place], [address], 13:20:45 atorvastati n 20 mg tablet 2023 [facility], [address] [place] [address], [id number], 13:20:49 spironolact one 100 mg tablet 2023 [facility], [address] [place] [address], [id number], 4 13:20:46 nystatin 100,000 unit/gram topical powder 2023 [facility], [address] [place] [address], [id number], 13:20:47 phentermine 37.5 mg tablet 2023 [facility], [facility] [place], [address], 13:20:56 escitalopra m 20 mg tablet 2023 [facility], [facility] [place], [address], 13:20:49 metformin 1,000 mg tablet 2023 024 [facility], [address] [place] [address], [id number], 4 13:20:44 Mounjaro 10 mg/0.5 mL subcutaneou s pen injector 2023 024 [facility], [address] [place] [address], [address], 13:20:48 fluticasone propionate 50 mcg/actuati on nasal spray,suspe nsion 2023 024 [facility], [address] [place], [address], 4 13:20:46 montelukast 10 mg tablet 2023 024 [facility], [address] [place] [address], [address], 13:20:49 phentermine 37.5 mg tablet 2023 [facility], [address] [place] [address], [id number], 18:24:29 phentermine 37.5 mg tablet 2023 [facility], [address] [place] [address], [id number], 15:30:16 triamcinolo ne acetonide 0.1 % topical cream 2023 [facility], [address] [place] [address], [address], 15:30:14 Patient TargetsNo targets recorded. Patient Instructions Encounter Date Encounter Id Patient Instructions Last Modified By Organization Details Last Modified Time 09/03/2023 [id number] A healthy lifestyle: care instructions yarauz Not available 09/03/2023 13:09:22 body mass index: care instructions yarauz Not available 09/03/2023 13:09:22 learning about healthy weight yarauz Not available 09/03/2023 13:09:[address] op phentermine for now till after surgery continue present meds yarauz Not available 09/03/2023 17:56:58 11/02/2023 [id number] body mass index: care instructions yarauz Not available 11/02/2023 15:30:07 learning about healthy weight yarauz Not available 11/02/2023 15:30:07 increase mounjar o 7.5mg weekly to 10mg weekly use triamcinolone sparingly yarauz Not available 11/02/2023 15:37:37 Increase walking from 40 minutes to 60 minutes per session decrease caloric intake from 2000 to 1500 per day stop concentrated sugars drink more water 6-8 glasses per day keep a food journal keep an exercise journal portion control choose low fat low sugar foods stop fried food intake eliminate high caloric beverages incorporate multiple fruits/vegetables eat 3 meals daily with 1-2 healthy snacks Follow a healthy heart diet is., Mediterranean diet Stop concentrated sugars Advised patient may need to get an EKG and CXR PRN If no weight loss will discontinue Rx yarauz Not available 11/02/2023 15:13:42 12/14/2023 [id number] When You Want to Lose Weight: Care Instructions yarauz Not available 12/14/2023 13:04:16 A healthy lifestyle: care instructions yarauz Not available 12/14/2023 13:04:16 body mass index: care instructions yarauz Not available 12/14/2023 13:04:16 learning about healthy weight yarauz Not available 12/14/2023 13:04:16 Increase walking from 40 minutes to 60 minutes per session decrease caloric intake from 2000 to 1500 per day stop concentrated sugars drink more water 6-8 glasses per day keep a food journal keep an exercise journal portion control choose low fat low sugar foods stop fried food intake eliminate high caloric beverages incorporate multiple fruits/vegetables eat 3 meals daily with 1-2 healthy snacks Follow a healthy heart diet is., Mediterranean diet Stop concentrated sugars Advised patient may need to get an EKG and CXR PRN If no weight loss will discontinue Rx yarauz Not available 12/14/2023 12:51:59 02/05/2024 [id number] learning about endovenous ablation for varicose veins yarauz Not available 02/05/2024 13:20:35 When You Want to Lose Weight: Care Instructions yarauz Not available 02/05/2024 13:20:34 A healthy lifestyle: care instructions yarauz Not available 02/05/2024 13:20:34 anxiety disorder : care instructions yarauz Not available 02/05/2024 13:20:34 body mass index: care instructions yarabobby Not available 02/05/2024 13:20:34 learning about healthy weight yarabobby Not available 02/05/2024 13:20:35 Uncontrolled Diabetes Mellitus complications , blindness, kidney failure, amputations etc. Take your diabetes medication daily check blood sugars fasting and post prandial --keep a log--bring to next appointment stop concentrated sugars--follow 1500 meal plan exercise 50-60 minutes daily on most days check your feet for sores, cuts, etc., see eye doctor once a year see dentist every 6 months Benefits risks of psychotropic medications if you develop suicidal thoughts or behaviors seek immediate reevaluation avoid alcohol when taking psychotropic medications if you develop fevers, chills, diarrhea, muscle symptoms or seizures to seek immediate reevaluation take your medicine as directed Pt. advised to call 911 or go to a local Emergency Department with any SI or HI, thoughts of self harm or any psychiatric emergency. Pt. is deemed safe and appropriate for continued out patient treatment. Pt. advised of the risk benefit ratio of medication, possible side effects and interactions of the meditations. Pt. wishes to continue with the treatment plan. Pt. advised to call or come in sooner than the scheduled appt. if there are any worsening of symptoms or problems with the medication yarabobby Not available 02/05/2024 13:05:43 Reason for Referral None Reported. Results Created Date Observation Date Name Description Value Unit Range Abnormal Flag Note LastModifiedBy Organization Detail LastModifiedTime 08/20/19 24 08/20/2023 gluco segerson, blood Blood Glucose: mg/dl 212 Not Available In-Off ice Order Internal Use Only DO Not Attach Compendium DO Not Attach Compendium, Do Not Delete/merge, [id number] 08/20/2023 11:59:00 08/20/19 24 08/20/2023 HbA1c (hemo globi n A1c), blood HbA1c 6.6 Not Available In-Office Order Internal Use Only DO Not Attach Compendium DO Not Attach Compendium, Do Not Delete/merge, [id number] 08/20/2023 11:58:59 09/01/19 24 09/02/2023 LIPID PANEL cholesterol, total 175 mg/dL 100-19 9 Not Available [facility] ([facility]) [address] [facility], [place], [address], 09/02/2023 11:15:38 09/01/19 24 09/02/2023 LIPID PANEL triglyceride s 199 mg/dL 0-149 above high normal Not Available [facility] ([facility]) [address] [facility] [place], [address], 09/02/2023 11:15:38 09/01/19 24 09/02/2023 LIPID PANEL HDL cholesterol 32 mg/dL >39 below low normal Not Available [facility] ([facility]) [address] [facility], [place], [address], 09/02/2023 11:15:38 09/01/19 24 09/02/2023 LIPID PANEL VLDL cholesterol amy 35 mg/dL 5-40 Not Available [facility] ([facility]) [address] [place], [address], 09/02/2023 11:15:38 09/01/19 24 09/02/2023 LIPID PANEL LDL chol calc ([facility]) 108 mg/dL 0-99 above high normal Not Available [facility] ([facility]) [address] [place], [address], 09/02/2023 11:15:38 09/01/19 24 09/02/2023 CBC WITH DIFFE RENTI AL/PL ATELE T WBC 10.4 x10e3 /uL 3.4-10 .8 Not Available [facility] ([facility]) [address] [place], [address], 09/02/2023 11:15:39 09/01/19 24 09/02/2023 CBC WITH DIFFE RENTI AL/PL ATELE T RBC 4.78 x10e6 /uL 3.77-5 .28 Not Available [facility] ([facility]) [address] [place], [address], 09/02/2023 11:15:39 09/01/19 24 09/02/2023 CBC WITH DIFFE RENTI AL/PL ATELE T hemoglobin 13.6 g/dL 11.1-1 5.9 Not Available [facility] ([facility]) [address] [facility], [place], [address], 09/02/2023 11:15:39 09/01/19 24 09/02/2023 CBC WITH DIFFE RENTI AL/PL ATELE T hematocrit 40.7 % 34.0-4 6.6 Not Available [facility] ([facility]) [address] [facility], [place], [address], 09/02/2023 11:15:39 09/01/19 24 09/02/2023 CBC WITH DIFFE RENTI AL/PL ATELE T MCV 85 fL 79-97 Not Available [facility] ([facility]) [address] [facility], [place], [address], 09/02/2023 11:15:39 09/01/19 24 09/02/2023 CBC WITH DIFFE RENTI AL/PL ATELE T MCH 28.5 pg 26.6-3 3.0 Not Available [facility] ([facility]) [address] [facility], [place], [address], 09/02/2023 11:15:39 09/01/19 24 09/02/2023 CBC WITH DIFFE RENTI AL/PL ATELE T MCHC 33.4 g/dL 31.5-3 5.7 Not Available [facility] ([facility]) [address] [place], [address], 09/02/2023 11:15:39 09/01/19 24 09/02/2023 CBC WITH DIFFE RENTI AL/PL ATELE T RDW 12.6 % 11.7-1 5.4 Not Available [facility] ([facility]) [address] [place], [address], 09/02/2023 11:15:39 09/01/19 24 09/02/2023 CBC WITH DIFFE RENTI AL/PL ATELE T platelets 404 x10e3 /uL 150-45 0 Not Available [facility] ([facility]) [address] [facility], [place], [address], 09/02/2023 11:15:39 09/01/19 24 09/02/2023 CBC WITH DIFFE RENTI AL/PL ATELE T neutrophils 60 % notest ab. Not Available [facility] ([facility]) [address] [facility], [place], [address], 09/02/2023 11:15:39 09/01/19 24 09/02/2023 CBC WITH DIFFE RENTI AL/PL ATELE T lymphs 32 % notest ab. Not Available [facility] ([facility]) [address] [facility], [place], [address], 09/02/2023 11:15:39 09/01/19 24 09/02/2023 CBC WITH DIFFE RENTI AL/PL ATELE T monocytes 6 % notest ab. Not Available [facility] ([facility]) [address] [facility], [place], [address], 09/02/2023 11:15:39 09/01/19 24 09/02/2023 CBC WITH DIFFE RENTI AL/PL ATELE T eos 1 % notest ab. Not Available [facility] ([facility]) [address] [facility], [place], [address], 09/02/2023 11:15:39 09/01/19 24 09/02/2023 CBC WITH DIFFE RENTI AL/PL ATELE T basos 0 % notest ab. Not Available [facility] ([facility]) [address] [facility], [place], [address], 09/02/2023 11:15:39 09/01/19 24 09/02/2023 CBC WITH DIFFE RENTI AL/PL ATELE T neutrophils (absolute) 6.2 x10e3 /uL 1.4-7. 0 Not Available [facility] ([facility]) [address] [facility], [place], [address], 09/02/2023 11:15:39 09/01/19 24 09/02/2023 CBC WITH DIFFE RENTI AL/PL ATELE T lymphs (absolute) 3.4 x10e3 /uL 0.7-3. 1 above high normal Not Available [facility] ([facility]) [address] [facility], [place], [address], 09/02/2023 11:15:39 09/01/19 24 09/02/2023 CBC WITH DIFFE RENTI AL/PL ATELE T monocytes(ab solute) 0.6 x10e3 /uL 0.1-0. 9 Not Available [facility] ([facility]) [address] [facility], [place], [address], 09/02/2023 11:15:39 09/01/19 24 09/02/2023 CBC WITH DIFFE RENTI AL/PL ATELE T eos (absolute) 0.1 x10e3 /uL 0.0-0. 4 Not Available [facility] ([facility]) [address] [facility], [place], [address], 09/02/2023 11:15:39 09/01/19 24 09/02/2023 CBC WITH DIFFE RENTI AL/PL ATELE T baso (absolute) 0.0 x10e3 /uL 0.0-0. 2 Not Available [facility] ([facility]) [address] [place], [address], 09/02/2023 11:15:39 09/01/19 24 09/02/2023 CBC WITH DIFFE RENTI AL/PL ATELE T immature granulocytes 1 % notest ab. Not Available [facility] ([facility]) [address] [facility], [place], [address], 09/02/2023 11:15:39 09/01/19 24 09/02/2023 CBC WITH DIFFE RENTI AL/PL ATELE T immature grans (abs) 0.1 x10e3 /uL 0.0-0. 1 Not Available [facility] ([facility]) [address] [facility], [place], [address], 09/02/2023 11:15:39 09/01/19 24 09/02/2023 PRESTON+L IPASE amylase 35 U/L 31-110 Not Available [facility] ([facility]) [address] [facility], [place], [address], 09/02/2023 11:15:40 09/01/19 24 09/02/2023 PRESTON+L IPASE lipase 29 U/L 14-72 Not Available [facility] ([facility]) [address] [place], [address], 09/02/2023 11:15:40 09/03/19 24 09/03/2023 pregn eddie test, urine HCG negati ve Not Available In-Office Order Internal Use Only DO Not Attach Compendium DO Not Attach Compendium, Do Not Delete/merge, [id number] 09/03/2023 12:24:53 Result Notes None recorded. Problems Name Problem SNOMED Code Status Onset Date Resolution Date Notes Provider Name and Address Organization Details Recorded Time Multiple environm ental allergie s Active 2017 BRIGIDO Wolf, [place] - [facility] 2 12:48:51 Hypergly cemia 62708916 Completed 201707/02/2018 Oscar Chavarria null, [place] - [facility] 9 11:03:02 Psoriasi s of scalp 372148528 Completed 201702/04/2019 Suzie Arevalo RN [place], [place] - [facility] 9 11:06:18 Uncontro lled type 2 diabetes mellitus 343373966 Active 2017 BRIGIDO [place], [place] - [facility] 2 12:48:41 Mixed hyperlip idemia 094324029 Active 2018 Suzie Arevalo RN [place] - [facility] 2 12:49:13 Body mass index 40+ - severely obese 504197714 Completed 201811/01/2021 Removal Reason: better [facility] Attn: Accountin g,[address] [facility], [place], [address], [place] - [facility] 3 13:06:10 Generali zed anxiety disorder 70446365 Active [address] [facility] Attn: Accountin g,[address] [facility], [place], [address], [place] [facility] 2 11:21:19 Vitamin D deficien cy 79523539 Active [address] [facility] Attn: Accountin g,[address] [facility], [place], [address], [place] - [facility] 2 11:21:19 Body mass index 40+ - severely obese 541623697 Completed 202105/06/[address] [facility] Attn: Accountin g,[address] [facility], [place], [address], [place] - [facility] 3 13:06:10 Hyperpig mentatio n of skin 93389264 Active [address] [facility] Attn: Accountin g,[address] [place], [address], [place] [facility] 3 13:05:54 Allergy to fish 411735732 Active [address] [facility] Attn: Accountin g,[address] [place], [address], [place] [facility] 3 13:05:54 Body mass index 30+ - obesity 937558027 Active [address] 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 Attn: Nadege aponte,[address] [facility], [place], [address], [place] - [facility] 4 15:11:19 Cholelit hiasis without obstruct ion 52206356 Active [address] [facility] Attn: Nadege aponte,[address] [facility], [place], [address], [place] - [facility] 4 15:11:19 Cystic acne 13269657 Active [address] [facility] Attn: Nadege aponte,[address] [facility], [place], [address], [place] [facility] 4 15:11:19 Right upper quadrant pain 964269457 Active [address] [facility] Attn: Nadege aponte,[address] [facility], [place], [address], [place] [facility] 4 12:47:31 Anxiety 32987612 Active [address] [facility] Attn: Nadege aponte,[address] [facility], [place], [address], [place] [facility] 4 13:13:00 Impaired glucose toleranc e 1023022 Completed 10/17/2016 MCKAY Hidaglo [place] [facility] 7 16:17:03 Acute pharyngi tis 869163325 Completed 06/08/2015 Suzie [place]val[place] [facility] 6 12:45:07 Morbid obesity 884732792 Completed 02/04/2019 Suzie [place]val[place] [facility] 9 11:06:43 Allergic rhinitis 05461540 Completed 03/05/[address] [facility] Attn: Nadege aponte,[address] [facility], [place], [address], [place] [facility] 8 13:06:06 Venous varices 350744505 Active BRIGIDO Wolf, [place] - [facility] 2 12:49:21 Hyperlip idemia 19721494 Completed 03/05/2018 Suzie Areval[place] RN null, [place] [facility] 8 11:58:13 Backache 335031795 Completed 03/05/2018 BRIGIDO [place] [facility] 8 11:57:58 Chronic dermatit is 71582409 Active BRIGIDO [place], [place] - [facility] 2 12:48:32 Asteatos is cutis 30966447 Completed 02/04/2019 BRIGIDO [place], [place] - [facility] 9 11:06:49 Rhinitis 10348060 Completed 01/02/2017 BRIGIDO Wolf, [facility] 7 13:22:54 Type 2 diabetes mellitus 43825955 Completed 201602/04/2019 Suzie Arevalo RN null, [place] - [facility] 9 11:06:32 Dyslipid emia 951124648 Completed 201602/04/2019 BRIGIDO Wolf, [facility] 9 11:06:24 Problem Notes None recorded. Procedures Surgical History Date Name Laterality Status Provider Name and Address Organization Details Recorded Time 05/02/19 23 Skin Tag Removal completed LAURA Hancock Attn: Accounting,[address] [place], [address], [facility] - [facility] 05/02/2022 16:42:03 04/25/19 23 Date of Last Pap Smear completed Suzie Arevalo RN [place] - [facility] 06/06/2022 12:58:35 04/20/19 15 Tonsillectomy completed Suzie Arevalo RN [place] - [facility] 04/06/2015 11:08:40 Imaging Results None recorded. Procedure Notes None recorded. Medical Equipment None Reported. Allergies Allergen ID Allergen Name Allergen Category Reaction Reaction Severity Criticality Documentation Date Start Date Code Code System Note Provider Name and Address Organization Details Recorded Time 073186 lisinopri l medicatio n flushing moderate Not available 09/16/20192019 45330 RxNorm Not Available Not Available Not Available Medications Name Sig Start Date Stop Date Status Note LastModified by Organization Details LastModified Time Niels Silverman 2 Sensor 09/06 completed Not Available Not Available Not Available cyclobenz aprine 10 mg tablet Take 1 tablet twice a day by oral route. 07/02 completed Not Available Not Available Not Available fluconazo le 100 mg tablet 02/04 completed Not Available Not Available Not Available silver sulfadiaz ine 1 % topical cream APPLY A 1/16 INCH (1.5 MM) THICK LAYER TO ENTIRE BURN AREA TOPICALL Y TWICE DAILY 08/14 completed Not Available Not Available Not Available metformin 500 mg tablet TAKE 1 TABLET BY MOUTH TWICE DAILY 06/06 completed Not Available Not Available Not Available promethaz ine-DM 6.25 mg-15 mg/5 mL oral syrup TAKE 5 ML BY MOUTH EVERY 4 TO 6 HOURS NEEDED FOR COUGH 07/25 completed Not Available Not Available Not Available diclofena c 3 % topical gel APPLY TO LESION AREAS BY TOPICAL ROUTE 2 TIMES PER DAY 03/09 completed Not Available Not Available Not Available prednison e 10 mg tablet 09/15 completed Not Available Not Available Not Available atorvasta tin 20 mg tablet TAKE 1 TABLET BY MOUTH ONCE DAILY FOR CHOLESTE ROL active Not Available Not Available No t Available cetirizin e 10 mg tablet TAKE 1 TABLET BY MOUTH ONCE DAILY active Not Available Not Available No t Available ibuprofen 800 mg tablet Take 1 tablet 3 times a day by oral route. 08/16 completed Not Available Not Available Not Available ofloxacin 0.3 % eye drops INSTILL 1 DROP INTO AFFECTED EYE(S) BY OPHTHALM IC ROUTE 4 TIMES PER DAY 08/27 completed Not Available Not Available Not Available fluconazo le 150 mg tablet TAKE 1 TABLET BY MOUTH A ONE TIME DOSE 08/19 completed Not Available Not Available Not Available benzonata te 200 mg capsule TAKE 1 CAPSULE BY MOUTH THREE TIMES DAILY 08/19 completed Not Available Not Available Not Available tretinoin 0.025 % topical cream APPLY CREAM EXTERNAL LY TO AFFECTED AREA AT BEDTIME active Not Available Not Available No t Available meloxicam 15 mg tablet Take 1 tablet every day by oral route. 01/02 completed Patient has been taking Meloxica m daily for years for OA Not Available Not Available Not Available phenazopy ridine 200 mg tablet TAKE 1 TABLET BY MOUTH THREE TIMES DAILY FOR 2 DAYS 08/19 completed Not Available Not Available Not Available metronida zole 0.75 % (37.5 mg/5 gram) vaginal gel 01/13 completed Not Available Not Available Not Available Medrol (Alex) 4 mg tablets in a dose pack use as directed on the package 06/20 completed Not Available Not Available Not Available prednison e 20 mg tablet TAKE 1 TABLET BY MOUTH ONCE DAILY FOR 5 DAYS 03/09 completed Not Available Not Available Not Available clonazepa m 0.5 mg tablet TAKE 1 TABLET BY MOUTH TWICE DAILY NEEDED active Not Available Not Available No t Available spironola ctone 100 mg tablet TAKE 1 TABLET BY MOUTH TWICE DAILY active Not Available Not Available No t Available terconazo le 0.8 % vaginal cream 02/04 completed Not Available Not Available Not Available clobetaso l 0.05 % topical cream APPLY A THIN LAYER TO THE AFFECTED AREA(S) BY TOPICAL ROUTE 2 TIMES PER DAY 07/25 completed Not Available Not Available Not Available Zithromax Z-Alex 250 mg tablet TAKE 2 TABLETS (500 MG) BY ORAL ROUTE ONCE DAILY FOR 1 DAY THEN 1 TABLET (250 MG) BY ORAL ROUTE ONCE DAILY FOR 4 DAYS 02/27 completed Not Available Not Available Not Available clotrimaz ole 1 % vaginal cream Insert 1 applicat orful every day by vaginal route at bedtime for 7 days. 06/09 completed Not Available Not Available Not Available metronida zole 500 mg tablet 01/13 completed Not Available Not Available Not Available phentermi ne 37.5 mg tablet TAKE 1/2 (ONE-CLARITA F) TABLET BY MOUTH ONCE DAILY active Not Available Not Available No t Available acetamino phen 300 mg-codein e 30 mg tablet 07/02 completed Not Available Not Available Not Available ciproflox acin 500 mg tablet TAKE 1 TABLET BY MOUTH EVERY 12 HOURS FOR 3 DAYS 09/23 completed Not Available Not Available Not Available sulfameth oxazole 800 mg-trimet hoprim 160 mg tablet TAKE 1 TABLET BY MOUTH EVERY 12 HOURS FOR 10 DAYS 04/21 completed Not Available Not Available Not Available aspirin 81 mg tablet,de layed release Take 1 tablet every day by oral route, for cardiova scular health. 2023 active Not Available Not Available Not Avai lable triamcino lone acetonide 0.1 % topical cream APPLY CREAM EXTERNAL LY TO AFFECTED AREA TWICE DAILY FOR 90 DAYS FOR DERMATIT IS active Not Available Not Available No t Available spironola ctone 25 mg tablet Take 1 tablet every day by oral route. 08/14 completed Not Available Not Available Not Available butalbita l-acetami nophen-ca ffeine 50 mg-325 mg-40 mg tablet TAKE 1 TO 2 TABLETS BY MOUTH EVERY 6 HOURS NEEDED FOR HEADACHE 08/31 completed Not Available Not Available Not Available Depo-Medr ol 80 mg/mL suspensio n for injection as needed 12/11 completed Not Available Not Available Not Available clobetaso l 0.05 % topical gel APPLY A THIN LAYER TO THE AFFECTED AREA(S) BY TOPICAL ROUTE 2 TIMES PER DAY 10/17 completed Not Available Not Available Not Available oxycodone -acetamin ophen 5 mg-325 mg tablet TAKE 1 TO 2 TABLETS BY MOUTH EVERY 6 HOURS NEEDED FOR PAIN 11/01 completed Not Available Not Available Not Available ceftriaxo ne 1 gram solution for injection Take 1 g by injectio n route. 05/06 completed Not Available Not Available Not Available amoxicill in 875 mg tablet Take 1 tablet every 12 hours by oral route. 09/15 completed Not Available Not Available Not Available famotidin e 20 mg tablet TAKE 1 TABLET BY MOUTH TWICE DAILY active Not Available Not Available No t Available clindamyc in 1 % topical gel APPLY A THIN LAYER TOPICALL Y TO AFFECTED AREA TWICE DAILY active Not Available Not Available No t Available hydrocort isone 2.5 % lotion APPLY A THIN LAYER TO THE AFFECTED AREA(S) BY TOPICAL ROUTE ONCE DAILY 03/05 completed Not Available Not Available Not Available amoxicill in 250 mg/5 mL oral suspensio n 04/06 completed Not Available Not Available Not Available benzonata te 100 mg capsule TAKE 1 CAPSULE BY MOUTH THREE TIMES DAILY 07/25 completed Not Available Not Available Not Available hydrocort isone 1 % topical cream APPLY TO THE AFFECTED AREA(S) BY TOPICAL ROUTE ONCE DAILY 07/02 completed Not Available Not Available Not Available cephalexi n 500 mg capsule TAKE 1 CAPSULE BY MOUTH EVERY 6 HOURS FOR 7 DAYS 05/26 completed Not Available Not Available Not Available oseltamiv ir 75 mg capsule TAKE ONE CAPSULE BY MOUTH TWICE DAILY FOR 5 DAYS 05/02 completed Not Available Not Available Not Available metformin 1,000 mg tablet TAKE 2 TABLETS BY MOUTH ONCE DAILY active Not Available Not Available No t Available triamcino lone acetonide 0.1 % topical ointment APPLY A THIN LAYER TO THE AFFECTED AREA(S) BY TOPICAL ROUTE 2 TIMES PER DAY 01/02 completed Not Available Not Available Not Available clotrimaz ole-betam ethasone 1 %-0.05 % topical cream APPLY CREAM TOPICALL Y TO AFFECTED AND SURROUND ING AREAS TWICE DAILY IN THE MORNING AND IN THE EVENING FOR 14 DAYS 02/06 completed Not Available Not Available Not Available Gentle Laxative (bisacody l) 5 mg tablet,de layed release 02/04 completed Not Available Not Available Not Available Anaprox DS 550 mg tablet Take 1 tablet every 12 hours by oral route. 11/17 completed Not Available Not Available Not Available polymyxin B sulfate 10,000 unit-trim ethoprim 1 mg/mL eye drops INSTILL 1 DROP INTO AFFECTED EYE(S) BY OPHTHALM IC ROUTE EVERY 6 HOURS 06/30 completed Not Available Not Available Not Available Humulin N NPH U-100 Insulin (isophane susp) 100 unit/mL subcutane ous INJECT 25 UNITS SUBCUTAN EOUSLY TWICE DAILY. INCREASE DIRECTED 07/25 completed Not Available Not Available Not Available ibuprofen 400 mg tablet Take 1 tablet every 4 hours by oral route. 03/12 completed Not Available Not Available Not Available nystatin- triamcino lone 100,000 unit/g-0. 1 % topical cream 01/13 completed Not Available Not Available Not Available diclofena c sodium 75 mg tablet,de layed release TAKE 1 TABLET BY MOUTH TWICE DAILY 03/09 completed Not Available Not Available Not Available monteluka st 10 mg tablet TAKE 1 TABLET BY MOUTH ONCE DAILY FOR ALLERGIE S active Not Available Not Available No t Available hydroxyzi ne HCl 25 mg tablet TAKE 1 TABLET BY MOUTH THREE TIMES DAILY active Not Available Not Available No t Available mupirocin 2 % topical ointment APPLY A SMALL AMOUNT TO THE AFFECTED AREA BY TOPICAL ROUTE 3 TIMES PER DAY 02/06 completed Not Available Not Available Not Available ergocalci ferol (vitamin D2) 1,250 mcg (50,000 unit) capsule TAKE 1 CAPSULE BY MOUTH ONCE A WEEK 11/01 completed Not Available Not Available Not Available nystatin 100,000 unit/gram topical powder APPLY POWDER TOPICALL Y TO AFFECTED AREA TWICE DAILY active Not Available Not Available No t Available epinephri ne 0.3 mg/0.3 mL injection , auto-inje ctor use as directed 09/23 completed Not Available Not Available Not Available albuterol sulfate HFA 90 mcg/actua tion aerosol inhaler INHALE 2 PUFFS BY MOUTH EVERY 4 HOURS active Not Available Not Available No t Available norethind fantasma (contrace ptive) 0.35 mg tablet TAKE 1 TABLET BY MOUTH ONCE DAILY 12/13 completed Not Available Not Available Not Available ketoconaz ole 2 % topical cream 08/02 completed Not Available Not Available Not Available clobetaso l 0.05 % scalp solution APPLY TO THE AFFECTED SCALP AREA BY TOPICAL ROUTE 2 TIMES PER DAY IN THE MORNING AND EVENING 07/25 completed Not Available Not Available Not Available ondansetr on 4 mg disintegr ating tablet DISSOLVE 1 TABLET IN MOUTH EVERY 8 HOURS NEEDED FOR NAUSEA AND VOMITING 05/26 completed Not Available Not Available Not Available fluticaso ne propionat e 50 mcg/actua tion nasal spray,sudarshan pension USE 1 SPRAY(S) IN EACH NOSTRIL ONCE DAILY active Not Available Not Available No t Available metformin ER 500 mg tablet,ex tended release 24 hr TAKE 2 TABLETS BY MOUTH TWICE DAILY 07/25 completed Not Available Not Available Not Available sertralin e 50 mg tablet TAKE 1 TABLET BY MOUTH ONCE DAILY 07/25 completed Not Available Not Available Not Available lisinopri l 2.5 mg tablet Take 1 tablet every day by oral route. 09/15 completed Not Available Not Available Not Available doxycycli ne hyclate 100 mg tablet TAKE 1 TABLET BY MOUTH TWICE DAILY FOR 7 DAYS 08/19 completed Not Available Not Available Not Available Sudafed 12 Hour 120 mg tablet,ex tended release Take 1 tablet every 12 hours by oral route. 08/14 completed Not Available Not Available Not Available loratadin e 10 mg tablet Take 1 tablet every day by oral route. 01/13 completed Not Available Not Available Not Available spironola ctone 50 mg tablet TAKE 1 TABLET BY MOUTH TWICE DAILY 12/13 completed Not Available Not Available Not Available amoxicill in 875 mg-potass ium clavulana te 125 mg tablet TAKE 1 TABLET BY MOUTH TWICE DAILY 11/01 completed Not Available Not Available Not Available Tri-Sharona 0.01 %-4 %-0.05 % topical cream APPLY TO THE AFFECTED AREA(S) BY TOPICAL ROUTE ONCE DAILY AT NIGHT 30MINUTE S BEFORE BEDTIME 02/06 completed Not Available Not Available Not Available Benadryl Allergy 25 mg tablet Take 2 tablets every 4 hours by oral route. 07/02 completed Not Available Not Available Not Available escitalop donavan 10 mg tablet Take 1 tablet every day by oral route. 10/13 completed Not Available Not Available Not Available escitalop donavan 20 mg tablet TAKE 1 TABLET BY MOUTH ONCE DAILY active Not Available Not Available No t Available metformin ER 1,000 mg tablet,ex tended release 24hr (osmotic) Take 2 tablets every day by oral route. 07/25 completed Not Available Not Available Not Available nitrofura ntoin monohydra te/macroc rystals 100 mg capsule TAKE 1 CAPSULE BY MOUTH EVERY 12 HOURS FOR 7 DAYS 10/03 completed Not Available Not Available Not Available Humalog KwikPen (U-100) Insulin 100 unit/mL subcutane ous INJECT 4 20 UNITS SUBCUTAN EOUSLY 2 TIMES DAILY. START WITH 4 UNITS BEFORE BREAKFAS T AND 8 BEFORE DINNER. INCREASE DIRECTED . 07/25 completed Not Available Not Available Not Available oxycodone 10 mg tablet 04/06 completed Not Available Not Available Not Available metformin ER 1,000 mg 24 hr tablet,ex tended release (gastric reten.) 07/25 completed Not Available Not Available Not Available Tradjenta 5 mg tablet Take 1 tablet every day by oral route. 11/30 completed Not Available Not Available Not Available OneTouch Verio test strips USE 1 STRIP TO CHECK GLUCOSE FIVE TIMES DAILY 09/06 completed Not Available Not Available Not Available icosapent ethyl 1 gram capsule TAKE 2 CAPSULES BY MOUTH TWICE DAILY active Not Available Not Available No t Available Contrave 8 mg-90 mg tablet,ex tended release Take 2 tablets twice a day by oral route. 11/27 completed Not Available Not Available Not Available Trulicity 0.75 mg/0.5 mL subcutane ous pen injector Inject by subcutan eous route for 28 days. 03/09 completed Not Available Not Available Not Available triamcino lone 0.1 % topical ointment and dimethico ne 5 % topical cream 06/30 completed Not Available Not Available Not Available Ozempic 1 mg/dose (2 mg/1.5 mL) subcutane ous pen injector 08/14 completed Not Available Not Available Not Available Ozempic 0.25 mg or 0.5 mg (2 mg/1.5 mL) subcutane ous pen injector INJECT 1.5mg UNDER THE SKIN ONCE WEEKLY 08/14 completed Not Available Not Available Not Available BD Veo Insulin Syringe Ultra-Fin e 1/2 mL 31 gauge x 15/64 USE SYRINGE TWICE DAILY 09/06 completed Not Available Not Available Not Available FreeStyle Herrera 14 Day Sensor kit USE DIRECTED 09/06 completed Not Available Not Available Not Available BD Amy 2nd Gen Pen Needle 32 gauge x 5/32 USE 1 THREE TIMES DAILY 09/06 completed Not Available Not Available Not Available OneTouch Delica Plus Lancet 33 gauge USE 1 TO CHECK GLUCOSE 4 TIMES DAILY 09/06 completed Not Available Not Available Not Available Baqsimi 3 mg/actuat ion nasal spray SPRAY 3 MG INTO THE NOSE NEEDED 09/06 completed Not Available Not Available Not Available Rybelsus 7 mg tablet Take by oral route for 30 days. 08/08 completed Not Available Not Available Not Available Rybelsus 3 mg tablet 08/27 completed KAMLESH prior auth form Not Available Not Available Not Available FreeStyle Herrera 2 Grubbs 09/06 completed Not Available Not Available Not Available Trulicity 3 mg/0.5 mL subcutane ous pen injector INJECT 1 SYRINGE SUBCUTAN EOUSLY ONCE A WEEK 04/23 completed Not Available Not Available Not Available Ozempic 1 mg/dose (4 mg/3 mL) subcutane ous pen injector 08/08 completed KAMLESH prior auth form Not Available Not Available Not Available Mounjaro 7.5 mg/0.5 mL subcutane ous pen injector INJECT 1 SYRINGE SUBCUTAN EOUSLY ONCE A WEEK 02/04 completed Not Available Not Available Not Available Mounjaro 5 mg/0.5 mL subcutane ous pen injector INJECT 1 SYRINGE SUBCUTAN EOUSLY ONCE A WEEK 11/01 completed 10/26/23: Prior Auth approved until 10/25/24 Not Available Not Available Not Available Mounjaro 10 mg/0.5 mL subcutane ous pen injector Inject 10 mg every week by subcutan eous route. active Not Available Not Available No t Available Mounjaro 2.5 mg/0.5 mL subcutane ous pen injector 05/26 completed Not Available Not Available Not Available Vitals Date Recorded Body height Provider Name an d Address Organization Details Last Updated DateTime 09/01/2023 160.02 cm Trevin blas [place] [facility] 09/01/2023 10:15:18 Date Recorded Body height Body mass index (BMI) Body weight Body temperature Heart rate Systolic blood pressure Diastolic blood pressure Provider Name and Address Organization Details Last Updated DateTime 160.02 cm 37.2 kg/m2 92008.4 g 97.6 [degF] 85 /min 116 mm[Hg] 75 mm[Hg] Suzie Arevalo RN [place] - [facility] 4 12:45:12 Date Recorded Body height Body mass index (BMI) Body weight Heart rate Body temperature Systolic blood pressure Diastolic blood pressure Provider Name and Address Organization Details Last Updated DateTime 4 160.02 cm 36.4 kg/m2 02880.2 4 g 79 /min 98 [degF] 112 mm[Hg] 75 mm[Hg] Suzie Arevalo RN [facility] 4 14:58:01 Date Recorded Body height Body mass index (BMI) Body weight Heart rate Body temperature Systolic blood pressure Diastolic blood pressure Provider Name and Address Organization Details Last Updated DateTime 4 160.02 cm 35.1 kg/m2 21219.2 9 g 74 /min 97.6 [degF] 101 mm[Hg] 69 mm[Hg] Suzie Arevalo RN [facility] 4 12:36:24 Date Recorded Body height Body mass index (BMI) Body weight Provider Name and Address Organization Details Last Updated DateTime 02/05/2024 160.02 cm 34.7 kg/m2 41637.1 g Suzie Arevalo RN [facility] 02/05/2024 12:46:27 Social History Question Answer Notes LastModified by Organizat ion Details LastModified Time Tobacco Smoking Status Never Smoker Suzie Arevalo RN [facility] 04/06/2015 11:08:40 Do You Have An Advance Directive? No Information not available 11/30/2020 What Is Your Level Of Alcohol Consumption? None Information not available 04/06/2015 Are You Blind Or Do You Have Difficulty Seeing? No Information not available 08/31/2020 What Is Your Level Of Caffeine Consumption? Occasional Information not available 04/06/2015 How Much Tobacco Do You Chew? None Information not available 04/06/2015 In The 14 Days Before Symptom Onset, Have You Had Close Contact With A Laboratory-confir med COVID-19 While That Case Was Ill? No Information not available 09/16/2019 In The 14 Days Before Symptom Onset, Have You Had Close Contact With A Person Who Is Under Investigation For COVID-19 While That Person Was Ill? No Information not available 09/16/2019 Have You Been To An Area Known To Be High Risk For COVID-19? No Information not available 09/16/2019 Are You Currently Employed? Yes Information not available 11/30/2020 Are You Deaf Or Do You Have Serious Difficulty Hearing? No Information not available 08/31/2020 What Type Of Diet Are You Following? REGULAR Information not available 04/06/2015 Which Illicit Or Recreational Drugs Have You Used? Denies [email or web address] Information not available 10/29/2016 Do You Or Have You Ever Used E-cigarettes Or Vape? 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 No Information not available 04/06/2015 Hard Of Hearing Or Deaf In One Or Both Ears? No Information not available 04/06/2015 Legally Blind In One Or Both Eyes? No Information no t available 04/06/2015 Marital Status Informatio n not available 06/08/2015 What Was The Date Of Your Most Recent Tobacco Screening? 02/05/2024 Information not available 02/05/2024 How Many Children Do You Have? 1 [email or web address] Information not available 11/30/2020 Performs Monthly Self-breast Exam? No Information no t available 04/06/2015 Do You Use Protection During Sex? No Information not available 09/23/2022 What Is Your Relationship Status? Information not available 08/31/2020 Do You Use Your Seat Belt Or Car Seat Routinely? Yes Information not available 08/31/2020 Seat Belts Used Routinely Yes Information not available 04/06/2015 Are You Sexually Active? Yes Information not available 02/06/2022 Smoke Alarm In Home No Information not available 04/06/2015 Do You Have Smoke And Carbon Monoxide Detectors In Your Home? Yes Information not available 08/31/2020 Are You Passively Exposed To Smoke? No Information no t available 08/31/2020 Do You Or Have You Ever Used Smokeless Tobacco? Never Used Smokeless Tobacco Information not available 02/04/2019 How Much Tobacco Do You Smoke? No Information not available 04/06/2015 General Stress Level Medium Information not available 04/06/2015 Do You Feel Stressed (tense, Restless, Nervous, Or Anxious, Or Unable To Sleep At Night)? [id number] Information not available 02/06/2022 Do You Use Any Illicit Or Recreational Drugs? No Information not available 08/31/2020 Do You Use Sunscreen Routinely? No Information not available 04/06/2015 Has Tobacco Cessation Counseling Been Provided? No Information not available 05/02/2022 Do You Or Have You Ever Used Any Other Forms Of Tobacco Or Nicotine? No Information not available 08/31/2020 Sex: Female Functional Status Question Answer Note LastModified by Organizat ion Details LastModified Time Are you able to care for yourself? Yes Information not available 08/31/2020 What is your exercise level? Occasional Information not available 04/06/2015 Mental Status None recorded. Family History Relationship Description Onset Age of this Age Resolved Age Notes LastModified by Organization Details LastModified Time Maternal Grandmother Diabetes mellitus Not available 2015 12:45:08 Maternal Grandmother Hypertensive disorder [email or web address] Not available 2016 13:21:30 Maternal Grandmother Migraine yarauz Not available 03/05 12:35:18 Maternal Grandfather Malignant neoplasm of bone Not available 2015 12:45:08 Father Hypercholest erolemia Not available 2015 12:45:08 Mother Alive Not available 0 11/28/2015 12:45:08 Mother Obesity [email or web address] Not available 14:38:37 Medical History Condition Response Muscle, Joint, or Bone Problems Y High Cholesterol Y Skin Problems Y Diabetes Y Allergies Y Gynecological History Statement/Question Response Abnormal Pap N Flow Moderate Date of LMP 01/29/2024 STIs/STDs N Duration of Flow (days) 6 Age at Menarche 10 Current Control Method Condoms Age at First Child 29 Frequency of Cycle (Q days) 27 Sexually Active? Y Menses Monthly Y Date of Last Pap Smear 04/25/2022 Sexual Problems? N LMP Definite Obstetrics History GPAL:G 1 P 1 0 0 1 Type Value Full Term 1 Living 1 Total 1 Immunizations Vaccine Type Date Status Note Provider Nam e and Address Organization Details Recorded Time Influenza, split virus, quadrivalent, preservative 8 completed Suzie Areval[place] RN null, [place] - [facility] 03/05/2018 11:57:46 COVID-19, mRNA, LNP-S, PF, 30 mcg/0.3 mL dose 2 completed Suzie [place] [facility] 09/06/2021 12:50:01 COVID-19, mRNA, LNP-S, PF, 30 mcg/0.3 mL dose 2 completed Suz[place] [facility] 09/06/2021 12:50:18 influenza, unspecified formulation 2 completed Suz[place] [facility] 02/06/2022 10:44:10 Influenza, split virus, quadrivalent, PF 3 completed Suz[place] [facility] 03/09/2023 12:34:55 Influenza, split virus, trivalent, preservative 4 completed Suz[place] [facility] 03/04/2024 10:30:05 pneumococcal polysaccharide PPV23 9 completed Not Available [facility]/07[facility] 02:41:28 Influenza, split virus, quadrivalent, PF 9 completed [facility] Available [facility] 02:39:21 Influenza, split virus, quadrivalent, PF 5 completed Suz[place] [facility] 04/06/2015 11:08:40 Tdap 5 completed Yasmeen Ny [place] [facility] 06/08/2015 11:20:28 Influenza, split virus, quadrivalent, preservative 6 completed Suzie Arevalo RN null, [facility] 02/08/2016 13:10:18 [facility]9 3 [facility]ing[address] [place], [address], [facility] 03/09/2023 16:14:18 HPV9 4 completed Suzie Arevalo RN null, [facility] 04/21/2023 15:54:10 HPV9 4 completed LAURA Hancock Attn: Accounting[address] [place], [address], [facility] 09/03/2023 17:55:54 Influenza, split virus, quadrivalent, preservative 7 completed Suzie Arevalo RN null, [facility] 01/02/2017 13:24:13 Past Encounters Encounter ID Performer Location Encounter Start Date Encounter Closed Date Diagnosis/Indication Diagnosis SNOMED-CT Code Diagnosis ICD10 Code Diagnosis Note [id number] [facility] [address] [place] [address] 04/06/2015 10:47:18 04/10/2015 12:01:25 Acute pharyngitis 268957062 J02.9 [id number] Chuck Craig [facility] [address], [place] [address] 06/08/2015 11:16:42 06/12/2015 13:29:41 Adult health examination 586208175 Z00.00 Morbid obesity 839860491 E66.01 Allergic rhinitis 434174 04 J30.9 Venous varices 823091049 I83.92 [id number] [facility] [address], [place] [address] 06/11/2015 10:14:51 06/12/2015 13:43:16 Morbid obesity 500063476 E66.01 [id number] [facility] [address], [place] [address] 08/03/2015 10:08:39 08/06/2015 17:57:10 Morbid obesity 733097742 E66.01 13# weight loss in 2 months Diet, weight loss and exercise Monitor for adverse side effects Hyperlipidemia 83435404 E78.5 Discussed test results Increase exercise to 50-60 minutes daily 5-6 times per week [id number] [facility] [address] [place] [address] 10/08/2015 12:43:54 10/16/2015 13:10:23 Morbid obesity 041050821 E66.01 7# weight gain in 2 months Diet, weight loss and exercise Monitor for adverse side effects Backache 178977444 M54.9 Hyperlipidemia 74388456 E78.5 Discussed test results Increase exercise to 50-60 minutes daily 5-6 times per week [id number] [facility] [address] [id number] 11/28/2015 12:37:02 12/10/2015 11:50:21 Morbid obesity 735703048 E66.01 will give Rx for 1 more month if no weight loss will stop Diet, weight loss and exercise Monitor for adverse side effects Chronic dermatitis 55824 007 L30.9 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 Backache 871758170 M54.9 [id number] [facility] [address], [place] [address] 02/08/2016 12:33:25 02/18/2016 13:08:13 Morbid obesity 367912837 E66.01 will give Rx for 1 more month if no weight loss will stop Diet, weight loss and exercise Monitor for adverse side effects Chronic dermatitis 16345 007 L30.9 keep appointmen t with Derm Hyperlipidemia 67730737 E78.5 Increase exercise to 50-60 minutes daily 5-6 times per week Asteatosis cutis 3145820 0 L85.3 Cetaphil products Backache 299639071 M54.9 get xrays done DAIN/stret lisandra/exer cise/weigh t loss Rhinitis 03699748 J00 use Zyrtec daily [id number] [place] [address] [place], [place] [address] 02/11/2016 12:20:28 02/18/2016 13:29:38 Hyperlipidemia 29198103 E78.5 Increase exercise to 50-60 minutes daily 5-6 times per week [id number] [place] [address] [id number] 02/20/2016 16:54:19 02/29/2016 12:13:11 Eruption 269753409 R21 OTC ZYRTEC 10mg once daily allergen panel + food mix (seafoods) , environmen sven allergens, perennial grass Multiple environmental allergies 705424439 T78.49XD Allergy to seafood 00863 001 Z91.000 [id number] Chuck [place] [address] [place], [place] [address] 03/12/2016 11:55:30 03/19/2016 11:09:10 Morbid obesity 406482654 E66.01 6 pound weight loss since a month ago Diet, weight loss and exercise Monitor for adverse side effects Asteatosis cutis 2252895 0 L85.3 Cetaphil products Eruption 534215282 R21 OTC ZYRTEC 10mg once daily allergen panel + food mix (seafoods) , environmen sven allergens, perennial grass Prediabetes 549864772 R7 3.03 Hyperlipidemia 23357838 E78.5 Increase exercise to 50-60 minutes daily 5-6 times per week [id number] Chuck [place] [address] [place], [place] [id number] 04/09/2016 12:13:53 04/16/2016 17:41:34 Morbid obesity 540246635 E66.01 6 pound 1/4 ounce weight loss since a month ago Diet, weight loss and exercise Monitor for adverse side effects As its the Holidays and patient is not having any side effects will give Rx this month--the n 3 months off Prediabetes 475450136 R7 3.03 [id number] [facility] [address], [place] [address] 04/18/2016 10:31:37 04/24/2016 10:54:52 Acute vaginitis 43060258 N76.0 Increase Doxyciclin e 100mg once daily to twice daily for the next seven days to cover UTI then return to once daily dosing Dysuria 11150843 R30.0 Prediabetes 561271332 R7 3.03 [id number] [facility] [address], [place] [address] 06/09/2016 10:56:27 06/17/2016 10:08:56 Acute conjunctivitis 44615437 H10.31 [id number] Chuck [place] [address] [place] [address] 06/30/2016 12:01:19 07/02/2016 17:53:15 Chronic dermatitis 54796848 L30.9 Seen by derm 02/2016 given about same treatment she had received from this office. SHe wishes to continue treatment. Requesting refills. Asteatosis cutis 1300436 0 L85.3 Cetaphil products Morbid obesity 594996654 E66.01 No weight loss since last visit Diet, weight loss and exercise Backache 943900358 M54.9 Xray shows DJD/stretc gus/exerc ise/weight loss Pain in right knee 58989 42615 23549 M25.561 will send for PT Psoriasis of scalp 44780 8008 L40.9 [id number] [facility], [place] [address] 08/20/2016 12:05:58 08/27/2016 17:50:49 Morbid obesity 278672715 E66.01 11 pound weight loss since last visit Diet, weight loss and exercise Hyperlipidemia 01484834 E78.5 Increase exercise to 50-60 minutes daily 5-6 times per week Chronic dermatitis 42635 007 L30.9 Seen by derm 02/2016 given about same treatment she had received from this office. SHe wishes to continue treatment. Requesting refills. Impaired g lucose tolerance 9258756 R73.03 Prediabetes 464345022 R7 3.03 Increased blood pressure 28670214 R03.0 monitor blood pressure Have RN check b/p in 1 month avoid salt weight loss encouraged Allergic rhinitis 350191 04 J30.1 zyrtec samples Pain in right knee 18220 74343 05008 M25.561 Patient to continue PT exercises at home Patient continues to have symptoms despite NSAIDS/PT for 3 1/2 months--kn ee xray essentiall y normal showed minor swelling Take Meloxicam daily for the next couple of months for knee inflammati on [id number] Chuck Craig [address] [place] [address] 10/17/2016 15:58:37 10/21/2016 16:47:09 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 surgical referral Lipoma of upper arm 1889 16158 D17.21 D17.22 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 32453875 I83.10 weight loss elevation of legs support hose referral to surgeon for sclerother apy prn [id number] Eliseo Vigil MD [facility] [address] [address] 10/29/2016 10:37:36 11/04/2016 13:11:34 Lipoma of skin and subcutaneous tissue (excluding face) 795618917 D17.30 [id number] Chuck Craig [facility] [address], [place] [address] 01/02/2017 12:13:06 01/10/2017 22:13:03 Morbid obesity 823341518 E66.01 5bpound weight gain since last visit Diet, weight loss and exercise Hyperlipidemia 58129863 E78.5 Increase exercise to 50-60 minutes daily 5-6 times per week Try [place] 3 FA Chronic dermatitis 46433 007 L30.9 Seen by derm 02/2016 given about same treatment she had received from this office. SHe wishes to continue treatment. Requesting refills. Prediabetes 025904552 R7 3.03 will repeat labs at next visit Allergic rhinitis 530644 04 J30.1 Cystic acne 42914465 L70 .0 drink a lot of water with this medication and daily banana Edema of l ower extremity 721606823 R60.0 recommend compressio n hose [id number] [facility] Craig[facility] [address] [place] [address] 03/05/2018 11:48:06 03/16/2018 13:07:08 Adult health examination 468789384 Z00.00 Upper resp iratory infection 50199570 J06.9 Venous varices 171127535 I83.92 Morbid obesity 009211413 E66.01 6# weight loss since last visit Diet, weight loss and exercise Chronic dermatitis 96364 007 L30.9 Seen by derm 02/2016 given about same treatment she had received from this office. SHe wishes to continue treatment. Requesting refills. Dyslipidemia 078552862 E 78.5 Psoriasis of scalp 68289 8008 L40.9 Hyperglycemia 67003873 R 73.9 accu check random 240 fasting Acute fron sven sinusitis 23368555 J01.10 Multiple environmental allergies 995923051 T78.49XD Chronic back pain 378797 002 G89.29 Headache 47814976 R51 suspect migraines Uncontroll ed type 2 diabetes mellitus 469895542 E11.65 [id number] [facility] [address], [place] [address] 07/02/2018 10:45:47 07/02/2018 17:36:52 Uncontrolled type 2 diabetes mellitus 643247136 E11.65 Acute fron sven sinusitis 75055557 J01.10 Multiple environmental allergies 200142019 T78.49XD continue otc Psoriasis of scalp 12673 8008 L40.9 Chronic dermatitis 69564 007 L30.9 Seen by derm 02/2016 given about same treatment she had received from this office. SHe wishes to continue treatment. Requesting refills. Prehypertension 43570284 9 R03.0 reduce salt in your diet 50-60 minutes of aerobic physical activity 5-6 time per week lose weight 5-20% of current body weight if B/P remains elevated will start B/P meds Body mass index 40+ - severely obese 119560443 Z68.41 bmi 42 Mixed hyperlipidemia 267 060435 E78.2 Avoid all breads, potatoes, cereal, pasta, rice, margarine, refined sugars, milk yogurt, ice cream, juices, soda (including diet), beer, and manmade or manufactur ed desserts. Enjoy steak, fish, chicken (no skin), pork, butter, vegetables , beans, nuts, whole eggs, cheese (low fat or skim), cream in your coffee. Depression screening 171 043054 Z13.31 negative [id number] Narcisoramakrishnaleanna OmarFormerly [facility] [address] [address] 01/13/2019 12:45:24 01/13/2019 18:11:52 Acute frontal sinusitis 01402768 J01.10 Cough 42086301 R05 Multiple environmental allergies 023771735 T78.49XD get otc antihistam ine and start [id number] [facility] [address] [address] 02/04/2019 10:55:51 02/04/2019 17:01:53 Uncontrolled type 2 diabetes mellitus 172887194 E11.65 uncontroll edfasting 322HK9A 9.6will continue Metformin bid started at [place] e/r Mixed hyperlipidemia 267 840075 E78.2 Avoid all breads, potatoes, cereal, pasta, rice, margarine, refined sugars, milk yogurt, ice cream, juices, soda (including diet), beer, and manmade or manufactur ed desserts. Enjoy steak, fish, chicken (no skin), pork, butter, vegetables , beans, nuts, whole eggs, cheese (low fat or skim), cream in your coffee. Multiple environmental allergies 744539741 T78.49XD continue otc Chronic dermatitis 86513 007 L30.9 Seen by derm 02/2016 given about same treatment she had received from this office. SHe wishes to continue treatment. Requesting refills. Prehypertension 95279826 9 R03.0 reduce salt in your diet 50-60 minutes of aerobic physical activity 5-6 time per week lose weight 5-20% of current body weight will start Lisinopril 2.5mg for kidney protection today Body mass index 30+ - obesity 899029728 Z68.39 BMI 39Healthy body weight 105-135 Administra tion of influenza vaccine 89991012 Z23 [id number] Chuck Craig [facility] [address] [place] [address] 08/17/2019 11:30:26 08/18/2019 11:27:38 Uncontrolled type 2 diabetes mellitus 489294720 E11.65 uncontroll edshe forgets to take evening [id number] 8.3will change Metformin 1000mg bid to Metformin ER 1000mg (2) Mixed hyperlipidemia 267 886142 E78.2 Avoid all breads, potatoes, cereal, pasta, rice, margarine, refined sugars, milk yogurt, ice cream, juices, soda (including diet), beer, and manmade or manufactur ed desserts. Enjoy steak, fish, chicken (no skin), pork, butter, vegetables , beans, nuts, whole eggs, cheese (low fat or skim), cream in your coffee. Multiple environmental allergies 542900873 T78.49XD continue otc Body mass index 30+ - obesity 800476938 Z68.39 BMI 39Healthy body weight 105-135 Chronic dermatitis 67594 007 L30.9 Seen by derm 02/2016 given about same treatment she had received from this office. SHe wishes to continue treatment. Requesting refills. Prehypertension 76005568 9 R03.0 reduce salt in your diet 50-60 minutes of aerobic physical activity 5-6 time per week lose weight 5-20% of current body weight will start Lisinopril 2.5mg for kidney protection today Headache 27640883 R51 suspect migrainesC T of Head 01/2019 normal Anxiety 07164915 F41.9 psychother apist listauto relaxation exerciseRX for prn use Acute fron sven sinusitis 25175214 J01.10 [id number] Chuck Craig [facility] [address] [place] [address] 09/16/2019 12:28:24 09/19/2019 10:06:07 Generalized anxiety disorder 95024112 F41.1 recommend psychother apist visits-pt will check with her 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 Body mass index 40+ - severely obese 717825618 Z68.41 bmi 42 [id number] Chuck CraigFormer[facility] [address] [place] [address] 10/14/2019 10:34:20 10/17/2019 06:38:07 Generalized anxiety disorder 99797240 F41.1 recommend psychother apist visits-pt will check with her 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pati ent fees better agrees to increasing dose of Escitalopr am 10mg to 20mg roslyn is aware will not refill klonopin for ongoing use Body mass index 40+ - severely obese 449485404 Z68.41 bmi 42 [id number] [address], [place] [address] 10/24/2019 12:45:53 10/25/2019 06:47:00 Acute sinusitis 28569722 J01.90 [id number] [address], [place] [address] 11/18/2019 14:10:09 11/21/2019 07:27:44 Uncontrolled type 2 diabetes mellitus 536920832 E11.65 uncontroll edshe forgets to take evening doseLast HA1C 8.3will continue Metformin ER 1000mg (2) Prehypertension 39636899 9 R03.0 reduce salt in your diet 50-60 minutes of aerobic physical activity 5-6 time per week lose weight 5-20% of current body weight patient stooped Lisinopril 2.5mg for kidney protection about a month ago-had reaction Mixed hyperlipidemia 267 118993 E78.2 Avoid all breads, potatoes, cereal, pasta, rice, margarine, refined sugars, milk yogurt, ice cream, juices, soda (including diet), beer, and manmade or manufactur ed desserts. Enjoy steak, fish, chicken (no skin), pork, butter, vegetables , beans, nuts, whole eggs, cheese (low fat or skim), cream in your coffee. Multiple environmental allergies 412256555 T78.49XD continue otc Body mass index 30+ - obesity 790230344 Z68.39 BMI 39Healthy body weight 105-135 Chronic dermatitis 97323 007 L30.9 Seen by derm 02/2016 given about same treatment she had received from this office. SHe wishes to continue treatment. Still has at home aware not to use in large quantities Headache 59650262 R51 suspect migrainesC T of Head 01/2019 normal Generalize d anxiety disorder 83576489 F41.1 recommend psychother apist visits-pt will check with her job on thisPatien t stopped both Escitalopr am and Clonazepam two weeks ago when she found out she was 7 [id number] [facility] [address] [place] [address] 06/06/2020 12:16:58 06/07/2020 14:23:37 Mixed hyperlipidemia 582375398 E78.2 Avoid all breads, potatoes, cereal, pasta, rice, margarine, refined sugars, milk yogurt, ice cream, juices, soda (including diet), beer, and manmade or manufactur ed desserts. Enjoy steak, fish, chicken (no skin), pork, butter, vegetables , beans, nuts, whole eggs, cheese (low fat or skim), cream in your coffee. Body mass index 40+ - severely obese 759811276 Z68.41 bmi 42 Prehypertension 98672714 9 R03.0 reduce salt in your diet 50-60 minutes of aerobic physical activity 5-6 time per week lose weight 5-20% of current body weight Chronic dermatitis 91614 007 L30.9 Seen by derm 02/2016 given about same treatment she had received from this office. SHe wishes to continue treatment. Has refills. Stable at present time. Uncontroll ed type 2 diabetes mellitus 580838766 E11.65 uncontroll edshe forgets to take evening doseLast HA1C 8.3will restart Metformin ER 1000mg (2) [id number] Trevin [facility] [address] [place] [address] 07/06/2020 15:11:23 07/09/2020 14:05:28 Uncontrolled type 2 diabetes mellitus 785733681 E11.65 uncontroll edshe forgets to take evening doseLast HA1C 8.3will restart Metformin ER 1000mg (2) Mixed hyperlipidemia 267 926737 E78.2 Avoid all breads, potatoes, cereal, pasta, rice, margarine, refined sugars, milk yogurt, ice cream, juices, soda (including diet), beer, and manmade or manufactur ed desserts. Enjoy steak, fish, chicken (no skin), pork, butter, vegetables , beans, nuts, whole eggs, cheese (low fat or skim), cream in your coffee. [id number] Chuck Craig [facility] [address] [place] [address] 08/31/2020 16:16:37 09/03/2020 16:30:16 Uncontrolled type 2 diabetes mellitus 000518990 E11.65 uncontroll ed she forgets to take evening dose Last HA1C 6.4 on 07/06/2020 will continue Metformin ER 1000mg (2) will add Tradjenta 5mg daily pt is not BF Mixed hyperlipidemia 267 622639 E78.2 07/06/2020 [id number] Trig 441 HDL 32 LDL 150 Avoid all breads, potatoes, cereal, pasta, rice, margarine, refined sugars, milk yogurt, ice cream, juices, soda (including diet), beer, and manmade or manufactur ed desserts. Enjoy steak, fish, chicken (no skin), pork, butter, vegetables , beans, nuts, whole eggs, cheese (low fat or skim), cream in your coffee. Body mass index 40+ - severely obese 366081930 Z68.41 bmi 42 Prehypertension 56541413 9 R03.0 reduce salt in your diet 50-60 minutes of aerobic physical activity 5-6 time per week lose weight 5-20% of current body weight Chronic dermatitis 48696 007 L30.9 Seen by derm 02/2016 given about same treatment she had received from this office. SHe wishes to continue treatment. Has refills. Stable at present time. 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 [id number] Chuck Craig, [facility] [address] [place] [address] 11/30/2020 12:06:22 12/05/2020 06:56:56 Uncontrolled type 2 diabetes mellitus 210795315 E11.65 she forgets to take evening dose Last HA1C 6.4 on 07/06/2020 will continue Metformin ER 1000mg (2)Jones ce was not coveredPat ient has been using Humulin N NPH 25 units BIDBS are better 110-160 range Mixed hyperlipidemia 267 939925 E78.2 07/06/2020 [id number] Trig 441 HDL 32 LDL 150 Avoid all breads, potatoes, cereal, pasta, rice, margarine, refined sugars, milk yogurt, ice cream, juices, soda (including diet), beer, and manmade or manufactur ed desserts. Enjoy steak, fish, chicken (no skin), pork, butter, vegetables , beans, nuts, whole eggs, cheese (low fat or skim), cream in your coffee. Body mass index 40+ - severely obese 853173291 Z68.41 bmi 42 Prehypertension 55848105 9 R03.0 reduce salt in your diet 50-60 minutes of aerobic physical activity 5-6 time per week lose weight 5-20% of current body weight Chronic dermatitis 49436 007 L30.9 Seen by derm 02/2016 given about same treatment she had received from this office. SHe wishes to continue treatment. Has refills. Stable at present time. Depression screening 171 563338 Z13.31 positive patient on sertraine 50mg daily started per her OB/gynneed s refills of sertraline from this office as she no longer seeing OB Anxiety 37997930 F41.9 psychother apist listauto relaxation exerciseRX for prn use Psoriasis of scalp 49031 8008 L40.9 [id number] Chuck Craig, [facility] [address] [place] [address] 12/17/2020 12:10:32 12/18/2020 06:02:04 COVID-19 134939097 U07.1 [id number] Chuck Craig [facility] [address] [place] [address] 07/25/2021 16:02:46 07/26/2021 15:40:58 Uncontrolled type 2 diabetes mellitus 692118438 E11.65 HA1C 8.5 [id number] 6.4 on 07/06/2020 will continue Metformin 1000mg 1 po bidwill add Ozempic 0.25mgMoni tor bs readings before and after meals (2Hrs) keep log Mixed hyperlipidemia 267 006333 E78.2 07/06/2020 [id number] Trig 441 HDL 32 LDL 150 Avoid all breads, potatoes, cereal, pasta, rice, margarine, refined sugars, milk yogurt, ice cream, juices, soda (including diet), beer, and manmade or manufactur ed desserts. Enjoy steak, fish, chicken (no skin), pork, butter, vegetables , beans, nuts, whole eggs, cheese (low fat or skim), cream in your coffee. Generalize d anxiety disorder 63761278 F41.1 ANDIE-7 re-start treatmentE scitalopra m 20mg dailyKlono pin for severe anxiety symptomsre commend psychother apist visits-amy l with problems or rthoughts of harming self Multiple environmental allergies 560710163 T78.49XD continue otc antihistam ine Body mass index 40+ - severely obese 502481721 Z68.41 bmi 37.2 Healthy Weight: {{4'10= 91-118 lbs 4'11= 94-123 lbs 5'= 97-127 lbs 5'1= 100-131 lbs 5'2= 104-135 5' 3= 107-140 lbs* 5'4= 110-144 lbs 5'5= 115-149 lbs 5'6= 118-154 lbs 5'7= 121-158 lbs 5'8= 125-163 lbs 5'9= 128-168 lbs 5'10= 132-173 lbs 5'11= 136-178 lbs 6'= 140-183 lbs 6'1= 144-188 lbs 6'2= 148-193 lbs 6'3= 152-199 lbs 6'4= 156-204 lbs}} Chronic dermatitis 42221 007 L30.9 Seen by derm 02/2016 given about same treatment she had received from this office. SHe wishes to continue treatment. Depression screening 171 528655 Z13.31 negative Hyperpigme ntation of skin 83592377 L81.9 Furuncle of buttock 1243 0003 L02.32 [id number] Trevin Maria MA [facility] [address], [place] [address] 07/26/2021 10:25:41 08/12/2021 16:22:57 Uncontrolled type 2 diabetes mellitus 339820125 E11.65 HA1C 8.5 [id number] 6.4 on 07/06/2020 will continue Metformin 1000mg 1 po bidwill add Ozempic 0.25mgMoni tor bs readings before and after meals (2Hrs) keep log Mixed hyperlipidemia 267 364729 E78.2 07/06/2020 [id number] Trig 441 HDL 32 LDL 150 Avoid all breads, potatoes, cereal, pasta, rice, margarine, refined sugars, milk yogurt, ice cream, juices, soda (including diet), beer, and manmade or manufactur ed desserts. Enjoy steak, fish, chicken (no skin), pork, butter, vegetables , beans, nuts, whole eggs, cheese (low fat or skim), cream in your coffee. [id number] [facility] [address], [place] [address] 09/06/2021 12:40:16 09/09/2021 14:59:34 Generalized anxiety disorder 45566817 F41.1 ANDIE-7 --4/2 1 betterWill continue treatmentE scitalopra m 20mg dailyKlono pin for severe anxiety symptomsre commend psychother apist visits-amy l with problems or rthoughts of harming self Mixed hyperlipidemia 267 383563 E78.2 07/06/2020 [id number] Trig 441 HDL 32 LDL 150 07/26/2021 cho 212trig 416HDL 32.8LDL 127Avoid all breads, potatoes, cereal, pasta, rice, margarine, refined sugars, milk yogurt, ice cream, juices, soda (including diet), beer, and manmade or manufactur ed desserts. Enjoy steak, fish, chicken (no skin), pork, butter, vegetables , beans, nuts, whole eggs, cheese (low fat or skim), cream in your coffee.Pat ient tried Niacin did not toleratePa tient will try Atorvastat in 20mg daily and LSM [id number] Chuck Craig [facility] [address] [place] [address] 11/01/2021 12:33:34 11/04/2021 11:16:46 Uncontrolled type 2 diabetes mellitus 608141760 E11.65 HA1C 7.HA1C 6.4 on 07/06/2020 will continue Metformin 1000mg 1 po bidwill continue Ozempic 0.25mgMoni tor bs readings before and after meals (2Hrs) keep log Mixed hyperlipidemia 267 879868 E78.2 07/06/2020 [id number] Trig 441 HDL 32 LDL 150 07/26/2021 cho 212trig 416HDL 32.8LDL 127Avoid all breads, potatoes, cereal, pasta, rice, margarine, refined sugars, milk yogurt, ice cream, juices, soda (including diet), beer, and manmade or manufactur ed desserts. Enjoy steak, fish, chicken (no skin), pork, butter, vegetables , beans, nuts, whole eggs, cheese (low fat or skim), cream in your coffee.Pat ient tried Niacin did not toleratePa tient will try Atorvastat in 20mg daily and LSM Generalize d anxiety disorder 00304651 F41.1 ANDIE-7 --07/20 1 betterWill continue treatmentE scitalopra m 20mg dailyKlono pin for severe anxiety symptomsre commend psychother apist visits-amy l with problems or thoughts of harming self Multiple environmental allergies 553455611 T78.49XD continue otc antihistam ine Body mass index 40+ - severely obese 547725970 Z68.41 bmi 37.2 Healthy Weight: {{4'10= 91-118 lbs 4'11= 94-123 lbs 5'= 97-127 lbs 5'1= 100-131 lbs 5'2= 104-135 5' 3= 107-140 lbs* 5'4= 110-144 lbs 5'5= 115-149 lbs 5'6= 118-154 lbs 5'7= 121-158 lbs 5'8= 125-163 lbs 5'9= 128-168 lbs 5'10= 132-173 lbs 5'11= 136-178 lbs 6'= 140-183 lbs 6'1= 144-188 lbs 6'2= 148-193 lbs 6'3= 152-199 lbs 6'4= 156-204 lbs}} Chronic dermatitis 12118 007 L30.9 Seen by derm 02/2016 given about same treatment she had received from this office. SHe wishes to continue treatment. Hyperpigme ntation of skin 73893740 L81.9 continue trilumause daily sunscreen Furuncle of buttock 1243 0003 L02.32 Depression screening 171 480064 Z13.31 negative Cystic acne 22060432 L70 .0 drink a lot of water with this medication and daily banana Fatigue 13514683 R53.83 [id number] Chuck Craig, [facility] [address], [place] [address] 02/06/2022 10:29:05 02/10/2022 14:44:03 Mixed hyperlipidemia 557600962 E78.2 07/06/2020 [id number] Trig 441 HDL 32 LDL 150 07/26/2021 cho 212trig 416HDL 32.8LDL 127Avoid all breads, potatoes, cereal, pasta, rice, margarine, refined sugars, milk yogurt, ice cream, juices, soda (including diet), beer, and manmade or manufactur ed desserts. Enjoy steak, fish, chicken (no skin), pork, butter, vegetables , beans, nuts, whole eggs, cheese (low fat or skim), cream in your coffee.Pat ient tried Niacin did not toleratePa tient will continue to try Atorvastat in 20mg daily and LSM Uncontroll ed type 2 diabetes mellitus 889434973 E11.65 HA1C 7.1HA1C 6.4 on 07/06/2020 will continue Metformin 1000mg 1 po bidIncreas e Ozempic 1mg once weeklyMoni tor bs readings before and after meals (2Hrs) keep log Generalize d anxiety disorder 96030731 F41.1 Will continue treatmentE scitalopra m 20mg dailyKlono pin for severe anxiety symptomsre commend psychother apist visits-amy l with problems or thoughts of harming self Multiple environmental allergies 735484573 T78.49XD igE 645 plus multiple specific environmen sven allergensc ontinue otc antihistam ine Body mass index 40+ - severely obese 767304093 Z68.41 bmi 39Healthy Weight: {{4'10= 91-118 lbs 4'11= 94-123 lbs 5'= 97-127 lbs 5'1= 100-131 lbs 5'2= 104-135 5' 3= 107-140 lbs* 5'4= 110-144 lbs 5'5= 115-149 lbs 5'6= 118-154 lbs 5'7= 121-158 lbs 5'8= 125-163 lbs 5'9= 128-168 lbs 5'10= 132-173 lbs 5'11= 136-178 lbs 6'= 140-183 lbs 6'1= 144-188 lbs 6'2= 148-193 lbs 6'3= 152-199 lbs 6'4= 156-204 lbs}} Chronic dermatitis 11222 007 L30.9 Seen by derm 02/2016 given about same treatment she had received from this office. SHe wishes to continue treatment. Hyperpigme ntation of skin 42309018 L81.9 continue trilumause daily sunscreen Cystic acne 67151792 L70 .0 drink a lot of water with this medication and daily banana Depression screening 171 368900 Z13.31 PHQ2-9 negative Mental hea lth screening 512528295 Z13.39 ANDIE-7 negative Acute sinusitis 18265975 J01.90 Acute pharyngitis 063115 003 J02.9 Allergy to fish 44796622 2 Z91.013 + allergen profile to fishGets rash [id number] Sunil Hearn MD [facility] [address], [place] [address] 02/24/2022 11:58:05 02/25/2022 13:30:52 Acute urinary tract infection 469903333 N39.0 Body mass index 30+ - obesity 045979358 Z68.39 BMI 38Healthy body weight 105-135 Depression screening 171 082519 Z13.31 PHQ2-9 negative Mental hea lth screening 901782024 Z13.39 ANDIE-7 negative [id number] [place] [address] 02/27/2022 11:01:08 02/28/2022 11:04:03 Acute pharyngitis 308620653 J02.9 Influenza A virus present 8474117674 08 J09.X2 [id number] [facility] [address] [address] 05/02/2022 15:38:01 05/06/2022 08:27:26 Venous varices 972942763 I83.92 Multiple s kin tags on neck 181339402 L91.8 removed 3 skin tags from neck without complicati ons 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 every 6 hrs as necessary Depression screening 171 847981 Z13.31 PHQ2-9 negative Mental hea lth screening 119219462 Z13.39 ANDIE-7 [facility] [id number] [facility] [address] [address] 05/06/2022 12:10:55 05/07/2022 12:58:03 Acute bilateral otitis media 651141845 H66.93 Acute ethm oidal sinusitis 39282212 J01.20 Body mass index 30+ - obesity 167128620 Z68.39 BMI 37Healthy body weight 105-135 Depression screening 171 402415 Z13.31 PHQ2-9 negative Mental hea [facility] screening 852462953 Z13.39 ANDIE-7 negative [id number] Chuck Craig [facility] [address] [place] [address] 06/06/2022 12:29:56 06/09/2022 09:21:50 Uncontrolled type 2 diabetes mellitus 162438670 E11.65 HA1C 7.3 [id number] 6.4 on 07/06/2020 will continue Metformin 1000mg 1 po bidIncreas e Ozempic 1mg once weekly to 1.5mg once weeklyMoni tor bs readings before and after meals (2Hrs) keep log Mixed hyperlipidemia 267 040741 E78.2 07/06/2020 [id number] Trig 441 HDL 32 LDL 150 07/26/2021 cho 212trig 416HDL 32.8LDL 127Avoid all breads, potatoes, cereal, pasta, rice, margarine, refined sugars, milk yogurt, ice cream, juices, soda (including diet), beer, and manmade or manufactur ed desserts. Enjoy steak, fish, chicken (no skin), pork, butter, vegetables , beans, nuts, whole eggs, cheese (low fat or skim), cream in your coffee.Pat ient tried Niacin did not toleratePa tient will continue to try Atorvastat in 20mg daily and LSM Obesity 885059744 E66.9 BMI 37Healthy body weight 105-135 Body mass index 30+ - obesity 869453465 Z68.39 BMI 37Healthy body weight 105-135 Generalize d anxiety disorder 12173913 F41.1 Will continue treatmentE scitalopra m 20mg dailyKlono pin for severe anxiety symptomsre commend psychother apist visits-amy l with problems or thoughts of harming self Chronic dermatitis 71173 007 L30.9 Seen by derm 02/2016 given about same treatment she had received from this office. SHe wishes to continue treatment. Cystic acne 80388385 L70 .0 drink a lot of water with this medication and daily banana Multiple environmental allergies 742937519 T78.49XD igE 645 plus multiple specific environmen sven allergensc ontinue otc antihistam ine Allergy to fish 47162226 2 Z91.013 + allergen profile to fishGets rash Hyperpigme ntation of skin 94556199 L81.9 continue trilumause daily sunscreen Depression screening 171 474920 Z13.31 PHQ2-9 negative [facility] screening 975745162 Z13.39 ANDIE-7 negative Vitamin D deficiency 347 72203 E55.9 Vitamin D 11.3Start Rx Vitamin D2 01745 IU once weekly for 12 weeksonce you complete RX buy otc vitamin D3 1000 IU once daily Candidal intertrigo 2661 73823 B37.2 nystatin Excess morales niculus of abdomen 4740313128 101 E65 Venous varices 160779520 I83.92 weight losselevat e legssuppor t hoseibupro fen prn 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 every 6 hrs as necessary Acute fron sven sinusitis 92924516 J01.10 [id number] Trevin Maria [facility] [address] [place] [address] 06/13/2022 10:30:08 06/19/2022 09:35:48 Mixed hyperlipidemia 403996770 E78.2 07/06/2020 [id number] Trig 441 HDL 32 LDL 150 07/26/2021 cho 212trig 416HDL 32.8LDL 127Avoid all breads, potatoes, cereal, pasta, rice, margarine, refined sugars, milk yogurt, ice cream, juices, soda (including diet), beer, and manmade or manufactur ed desserts. Enjoy steak, fish, chicken (no skin), pork, butter, vegetables , beans, nuts, whole eggs, cheese (low fat or skim), cream in your coffee.Pat ient tried Niacin did not toleratePa tient will continue to try Atorvastat in 20mg daily and LSM [id number] [facility] [address], [place] [address] 06/20/2022 11:46:01 06/23/2022 15:03:46 Acute urinary tract infection 193071750 N39.0 UA dip + nitrates Burn of skin 151216702 T 30.0 Body mass index 30+ - obesity 883832558 Z68.39 BMI 37.7Health y body weight 105-838 [id number] Chuck OmarFormerly [facility] [address] [address] 4 08/14/2022 12:22:26 08/15/2022 11:44:01 Obesity 190525759 E66.9 BMI 37.4Health y body weight 105-135 Acute conj unctivitis of left eye 7296339990 42083 H10.32 Depression screening 171 576549 Z13.31 PHQ2-9 negative Mental [facility]a [facility] screening 201983749 Z13.39 ANDIE-7 negative [id number] Chuck CraigFormerly [facility] [address], [place] [address] 08/27/2022 11:10:48 08/29/2022 18:13:08 Allergic reaction 434917332 T78.40XA Had popcorn at the moviesNo new detergents , lotions, medicinesN o other family member with rashNo respirator y symptoms Pruritic rash 19325069 L 28.2 Body mass index 30+ - obesity 930553053 Z68.39 BMI 37.4Health y body weight 105-135 Depression screening 171 014357 Z13.31 PHQ2-9 negative Mental [facility]a lth screening 633100879 Z13.39 ANDIE-7 negative 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 seen by dermatolog ist in 2016given TCE1%Doxyc ycline 100mg bid #30 [id number] Chuck CraigFormerly [facility] [address], [place] [address] 09/23/2022 11:07:35 09/25/2022 13:21:26 Body mass index 30+ - obesity 940773275 Z68.39 BMI 38.3Health y body weight 105-135 Urinary symptoms 1126018 08 R39.9 Microscopic hematuria 19 2537459 R31.29 Depression screening 171 859964 Z13.31 PHQ2-9 negative [facility] screening 282684809 Z13.39 ANDIE-7 negative [id number] Chuck Craig, [facility] [address] [place] [address] 10/03/2022 11:55:36 10/07/2022 08:33:38 Mixed hyperlipidemia 385734106 E78.2 07/06/2020 [id number] Trig 441 HDL 32 LDL 150 07/26/2021 cho 212trig 416HDL 32.8LDL 127 06/13/2022 cho 183.4TRIG 311HDL 35.5LDL 95.6 Avoid all breads, potatoes, cereal, pasta, rice, margarine, refined sugars, milk yogurt, ice cream, juices, soda (including diet), beer, and manmade or manufactur ed desserts. Enjoy steak, fish, chicken (no skin), pork, butter, vegetables , beans, nuts, whole eggs, cheese (low fat or skim), cream in your coffee.Pat ient tried Niacin did not toleratePa tient will continue to try Atorvastat in 20mg daily and LSM Uncontroll ed type 2 diabetes mellitus 459800811 E11.65 HA1C 8.5 [id number] 6.4 on 07/06/2020 will continue Metformin 1000mg 1 po bidcontinu e trulicity but increaseMo nitor bs readings before and after meals (2Hrs) keep log 06/13/2022 BUN 13creat 0.41eGFR 134 Generalize d anxiety disorder 30015257 F41.1 Will continue treatmentE scitalopra m 20mg dailyKlono pin for severe anxiety symptomsre commend psychother apist visits-amy l with problems or thoughts of harming self Obesity 057128234 E66.9 BMI 38.3Health y body weight 105-135 Body mass index 30+ - obesity 536856717 Z68.39 BMI 38.3Health y body weight 105-135 Chronic dermatitis 84787 007 L30.9 Seen by derm 02/2016 given about same treatment she had received from this office. SHe wishes to continue treatment. 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 every 6 hrs as necessary Venous varices 206264364 I83.92 weight losselevat e legssuppor t hoseibupro fen prn Depression screening 171 421104 Z13.31 PHQ2-9 negative [facility] screening 079314393 Z13.39 ANDIE-7 negative [id number] [facility] [address] [place] [address] 12/11/2022 10:13:00 12/12/2022 13:02:56 Pain in right heel 4395418193 897989 M79.671 Generalize d anxiety disorder 23041255 F41.1 Will continue treatmentE scitalopra m 20mg dailyKlono pin for severe anxiety symptomsre commend psychother apist visits-amy l with problems or thoughts of harming self Body mass index 30+ - obesity 347117603 Z68.39 BMI 38.4Health y body weight 105-297 [id number] [facility] [address] [place] [address] 03/09/2023 12:30:17 03/18/2023 11:17:40 Urinary symptoms 628987327 R39.9 Active or passive immunization 383242577 Z23 Dysuria 88743995 R30.0 self swab Depression screening 171 863930 Z13.31 PHQ2-9 negative [facility] screening 797795024 Z13.39 ANDIE-7 negative [id number] Chuck Craig [facility] [address] [place] [address] 04/21/2023 12:34:51 04/23/2023 14:28:39 Uncontrolled type 2 diabetes mellitus 223101084 E11.65 HA1C 9.6 worsewill continue Metformin 1000mg 1 po bidstop 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 bs readings before and after meals (2Hrs) keep log 06/13/2022 BUN 13creat 0.41eGFR 134 Generalize d anxiety disorder 52056281 F41.1 Will continue treatmentE scitalopra m 20mg dailyKlono pin for severe anxiety symptomsre commend psychother apist visits-amy l with problems or thoughts of harming self Mixed hyperlipidemia 267 585075 E78.2 07/06/2020 [id number] Trig 441 HDL 32 LDL 150 07/26/2021 cho 212trig 416HDL 32.8LDL 127 06/13/2022 cho 183.4TRIG 311HDL 35.5LDL 95.6 Avoid all breads, potatoes, cereal, pasta, rice, margarine, refined sugars, milk yogurt, ice cream, juices, soda (including diet), beer, and manmade or manufactur ed desserts. Enjoy steak, fish, chicken (no skin), pork, butter, vegetables , beans, nuts, whole eggs, cheese (low fat or skim), cream in your coffee.Pat ient tried Niacin did not toleratePa tient will continue to try Atorvastat in 20mg daily and LSM Obesity 907917300 E66.9 BMI 38.8Health y body weight 105-135 Body mass index 30+ - obesity 189225170 Z68.39 BMI 38.8Health y body weight 105-135 Chronic dermatitis 60113 007 L30.9 Seen by derm 02/2016 given about same treatment she had received from this office. SHe wishes to continue treatment. Cystic acne 53580277 L70 .0 drink a lot of water with this medication and daily banana Multiple environmental allergies 405721517 T78.49XD igE 645 plus multiple specific environmen sven allergensc ontinue otc antihistam ine Excess morales niculus of abdomen 9742168234 101 E65 Allergy to fish 26775487 2 Z91.013 + allergen profile to fishGets rash Vitamin D deficiency 347 69642 E55.9 11/01/2021 Vitamin D 11.3 buy otc vitamin D3 1000 IU once daily Hyperpigme ntation of skin 33763894 L81.9 continue trilumause daily sunscreenr eferring to derm Venous varices 319964245 I83.92 weight losselevat e legssuppor t hoseibupro fen prn Depression screening 171 877884 Z13.31 PHQ2-9 negative Mental hea lth screening 427987979 Z13.39 ANDIE-7 negative Active or passive immunization 661482384 Z23 Cholelithi asis without obstruction 27995825 K80.20 wants GB removal Steatosis of liver 10234 1007 K76.0 04/15/2023 CT abd/pelvis w/con shows fatty liver, Hepatomega ly, yessica inguinal lymphadeno harmeet, cholelithi asis and R enlarged ovary. Abnormal l iver function 87353676 K76.89 04/15/2023 CT abd/pelvis w/con shows fatty liver, Hepatomega ly, yessica inguinal lymphadeno harmeet, cholelithi asis and R enlarged ovary. Inguinal lymphadenopathy 298100395 R59.0 04/15/2023 CT abd/pelvis w/con shows fatty liver, Hepatomega ly, yessica inguinal lymphadeno harmeet, cholelithi asis and R enlarged ovary. Anxiety 88556698 F41.9 psychother apist listauto relaxation exerciseRX for prn use Acute urin wang tract infection 775248752 N39.0 [id number] [facility] [address] [place] [address] 05/26/2023 10:56:48 05/29/2023 10:51:17 Urinary symptoms 757655764 R39.9 Dysuria 54740672 R30.0 Depression screening 171 644908 Z13.31 PHQ2-9 negative [facility] screening 368727218 Z13.39 ANDIE-7 negative Postviral cough 70368819 4 R05.3 [id number] Chuck Craig, [facility] [address] [place] [address] 08/20/2023 11:47:59 08/24/2023 15:31:00 Mixed hyperlipidemia 458453248 E78.2 07/06/2020 [id number] Trig 441 HDL 32 LDL 150 07/26/2021 cho 212trig 416HDL 32.8LDL 127 06/13/2022 cho 183.4TRIG 311HDL 35.5LDL 95.6 05/16/2023 cho 227trig 509HDL 37LDL 163 Avoid all breads, potatoes, cereal, pasta, rice, margarine, refined sugars, milk yogurt, ice cream, juices, soda (including diet), beer, and manmade or manufactur ed desserts. Enjoy steak, fish, chicken (no skin), pork, butter, vegetables , beans, nuts, whole eggs, cheese (low fat or skim), cream in your coffee.Pat ient tried Niacin did not toleratePa tient will continue to try Atorvastat in 20mg daily and LSM Body mass index 30+ - obesity 073126712 Z68.39 BMI 38.3Health y body weight 105-135 Uncontroll ed type 2 diabetes mellitus 894807361 E11.65 HA1C 9.6 worsewill continue Metformin 1000mg 1 po bidstop trulicityi ncrease mounjaro 5 mg once weekly to 7.5mg once weekly MounjaroMo nitor bs readings before and after meals (2Hrs) keep log 06/13/2022 BUN 13creat 0.41eGFR 134 04/21/2023 BUN 13Creat 0.55eGFR 124 Generalize d anxiety disorder 46445757 F41.1 Will continue treatmentE scitalopra m 20mg dailyKlono pin for severe anxiety symptomsre commend psychother apist visits-amy l with problems or thoughts of harming self Multiple environmental allergies 371178823 T78.49XD igE 645 plus multiple specific environmen sven allergensc ontinue otc antihistam ine Obesity 165845054 E66.9 BMI 38.8Health y body weight 105-135 Chronic dermatitis 22747 007 L30.9 Seen by derm 02/2016 given about same treatment she had received from this office. SHe wishes to continue treatment. Cystic acne 33729651 L70 .0 drink a lot of water with this medication and daily bananaderm will be starting accutane Excess morales niculus of abdomen 5222414968 101 E65 Has a rash itchysweat y red wet Allergy to fish 69814164 2 Z91.013 + allergen profile to fishGets rash Vitamin D deficiency 347 59609 E55.9 11/01/2021 Vitamin D 11.31/05/22 024 Vitamin D <4.0buy otc vitamin D3 1000 IU once daily Hyperpigme ntation of skin 97447065 L81.9 continue triluma-brush s from [place] daily sunscreenr eferred to dermderm to start accutane Venous varices 970225865 I83.92 weight losselevat e legssuppor t hoseibupro fen prn Steatosis of liver 96531 1007 K76.0 04/15/2023 CT abd/pelvis w/con shows fatty liver, Hepatomega ly, yessica inguinal lymphadeno harmeet, cholelithi asis and R enlarged ovary. Depression screening 171 767342 Z13.31 PHQ2-9 negative Mental hea lth screening 845982354 Z13.39 ANDIE-7 negative Cholelithi asis without obstruction 06422887 K80.20 wants GB removalsee n surgeonwil l be having removal Abnormal l iver function 05859643 K76.89 04/15/2023 CT abd/pelvis w/con shows fatty liver, Hepatomega ly, yessica inguinal lymphadeno harmeet, cholelithi asis and R enlarged ovary. Anxiety 10242170 F41.9 psychother apist listauto relaxation exerciseRX for prn use Right uppe r quadrant pain 108851677 R10.11 [id number] Suzie Arevalo RN [facility] [address] [place] [address] 09/01/2023 10:14:59 09/09/2023 15:32:26 Mixed hyperlipidemia 266249003 E78.2 07/06/2020 [id number] Trig 441 HDL 32 LDL 150 07/26/2021 cho 212trig 416HDL 32.8LDL 127 06/13/2022 cho 183.4TRIG 311HDL 35.5LDL 95.6 05/16/2023 cho 227trig 509HDL 37LDL 163 Avoid all breads, potatoes, cereal, pasta, rice, margarine, refined sugars, milk yogurt, ice cream, juices, soda (including diet), beer, and manmade or manufactur ed desserts. Enjoy steak, fish, chicken (no skin), pork, butter, vegetables , beans, nuts, whole eggs, cheese (low fat or skim), cream in your coffee.Pat ient tried Niacin did not toleratePa tient will continue to try Atorvastat in 20mg daily and LSM Right uppe r quadrant pain 525324314 R10.11 [id number] Chuck Craig, [facility] [address], [place] [address] 09/03/2023 12:13:17 10/05/2023 10:44:57 Obesity 497366276 E66.9 BMI 37.2Health y body weight 105-135 Body mass index 30+ - obesity 101335050 Z68.39 BMI 37.2Health y body weight 105-135 Pre-surger y evaluation 705544811 Z01.818 32 y/o HF presents for medical clearance for gall bladder surgery on 09/2023. The patient had multiple chronic medical problems: DM2, HPLD, ANDIE; BMI 30+, Hepatic steatosis. Her last HA1C on 08/20/2023 was 6.6. The patient has bee losing weight and exercising . She is not a smoker or uses illicit drugs. Active or passive immunization 467076988 Z23 Type 2 ana betes mellitus 43312248 E11.9 08/20/2023 HA1c 6.6 Mixed hyperlipidemia 267 244965 E78.2 07/06/2020 [id number] Trig 441 HDL 32 LDL 150 07/26/2021 cho 212trig 416HDL 32.8LDL 127 06/13/2022 cho 183.4TRIG 311HDL 35.5LDL 95.6 05/16/2023 cho 227trig 509HDL 37LDL 163 09/01/2023 Cho 175Trig 199HDL 32LDL 108 Avoid all breads, potatoes, cereal, pasta, rice, margarine, refined sugars, milk yogurt, ice cream, juices, soda (including diet), beer, and manmade or manufactur ed desserts. Enjoy steak, fish, chicken (no skin), pork, butter, vegetables , beans, nuts, whole eggs, cheese (low fat or skim), cream in your coffee.Pat ient tried Niacin did not toleratePa tient will continue to try Atorvastat in 20mg daily and LSM [id number] Chuck Craig [facility] [address], [place] [address] 11/02/2023 14:48:03 11/04/2023 16:21:33 Body mass index 30+ - obesity 858900413 Z68.39 The patient was started on phentermin e tabs 08/20/2023 to aid with her appetite/w eight loss. Back in August the patient weighed in at 216 She is 205 today. She continues to monitor diet and exercising .BMI 36.4Health y body weight 105-135 Obesity 521784668 E66.9 The patient was started on phentermin e tabs 08/20/2023 to aid with her appetite/w eight loss. Back in August the patient weighed in at 216 She is 205 today. She continues to monitor diet and exercising .BMI 36.4Health y body weight 105-135 Chronic dermatitis 60052 007 L30.9 Seen by derm 02/2016 given about same treatment she had received from this office. SHe wishes to continue treatment. Mental hea lt screening 579700722 Z13.39 ANDIE-7 negative [id number] [facility] [address], [place] [address] 12/14/2023 12:34:48 12/17/2023 11:42:04 Body mass index 30+ - obesity 737864754 Z68.39 The patient was started on phentermin e tabs 08/20/2023 to aid with her appetite/w eight loss. Back in August 2023 the patient weighed in at 216 She is 198 today. She continues to monitor diet and exercising . She has used phentermin e for a couple of months since starting it. She denies any abnormal side effects.BM I 35.1Health y body weight 105-135 Obesity 699675198 E66.9 BMI 35.1Health y body weight 105-840 [id number] Chuck Craig, [facility] [address] [place] [address] 02/05/2024 12:44:32 02/12/2024 15:37:33 Uncontrolled type 2 diabetes mellitus 216199320 E11.65 HA1C 6.0 per patient at last checkwill continue Metformin 1000mg 1 po bidincreas e mounjaro 7.5mg once weekly to 10mg once weekly MounjaroMo nitor bs readings before and after meals (2Hrs) keep log 06/13/2022 BUN 13creat 0.41eGFR 134 04/21/2023 BUN 13Creat 0.55eGFR 124 Mixed hyperlipidemia 267 117931 E78.2 07/06/2020 [id number] Trig 441 HDL 32 LDL 150 07/26/2021 cho 212trig 416HDL 32.8LDL 127 06/13/2022 cho 183.4TRIG 311HDL 35.5LDL 95.6 05/16/2023 cho 227trig 509HDL 37LDL 163 09/02/2023 cho 175trig 199HDL 32LDL 108 Avoid all breads, potatoes, cereal, pasta, rice, margarine, refined sugars, milk yogurt, ice cream, juices, soda (including diet), beer, and manmade or manufactur ed desserts. Enjoy steak, fish, chicken (no skin), pork, butter, vegetables , beans, nuts, whole eggs, cheese (low fat or skim), cream in your coffee.Pat ient tried Niacin did not toleratePa tient will continue to try Atorvastat in 20mg daily and LSM Body mass index 30+ - obesity 103509750 Z68.39 BMI 34.7Health y body weight 105-135 Generalize d anxiety disorder 80805324 F41.1 Will continue treatmentE scitalopra m 20mg dailyKlono pin for severe anxiety symptomsre commend psychother chasidy liu-amy white with problems or thoughts of harming self Anxiety 26576298 F41.9 auto relaxation exerciseRX clonazepam at home for prn use Multiple environmental allergies 211667484 T78.49XD igE 645 plus multiple specific environmen sven allergensc ontinue otc antihistam ine Obesity 304521149 E66.9 BMI 34.7Health y body weight 105-135adv ised will provide RX phentermin e 3 months on 3 months off as long as some weight loss and no side effects Hyperpigme ntation of skin 79940599 L81.9 continue triluma-brush s from [place] daily sunscreenr eferred to derm Chronic dermatitis 66869 007 L30.9 Seen by derm 02/2016 given about same treatment she had received from this office. SHe wishes to continue treatment. Cystic acne 87141091 L70 .0 drink a lot of water with this medication and daily bananaderm will be starting accutane Excess morales niculus of abdomen 7592199458 101 E65 Has a rash itchysweat y red wet Allergy to fish 15778661 2 Z91.013 + allergen profile to fishGets rash Vitamin D deficiency 347 63380 E55.9 11/01/2021 Vitamin D 11.31//2 024 Vitamin D <4.0buy otc vitamin D3 1000 IU once daily Venous varices 571686888 I83.92 weight losselevat e legssuppor t hoseibupro fen prn Steatosis of liver 67094 1007 K76.0 04/15/2023 CT abd/pelvis w/con shows fatty liver, Hepatomega ly, yessica inguinal lymphadeno harmeet, cholelithi asis and R enlarged ovary. Abnormal l iver function 82741839 K76.89 04/15/2023 CT abd/pelvis w/con shows fatty liver, Hepatomega ly, yessica inguinal lymphadeno harmeet, cholelithi asis and R enlarged ovary. Health Concerns Section Related Observation LastModified by Organization Detai ls LastModified Time None Recorded Concern Status LastModified by Organization Details LastModified Time None Recorded Advance Directives Directive N: Payers Encounter Date Sequence Insurance Name Policy Number Policy Goddard Covered Member ID Goddard Member ID Guarantor Name 09/01/2023 2 [place] [facility] Yasmeen Ny [id number] Yasmeen Ny 09/01/2023 1 [employer] - ALLIED BENEFITS - OPEN ACCESS [id number] Yasmeen Ny [id number] Yasmeen Ny 09/03/2023 2 [place] [facility] Yasmeen Ny [id number] Yasmeen Ny 09/03/2023 1 [employer] - ALLIED BENEFITS - OPEN ACCESS [id number] Yasmeen Ny [id number] Yasmeen Ny 11/02/2023 2 [place] [facility] Yasmeen Ny [id number] Yasmeen Ny 11/02/2023 1 [employer] - ALLIED BENEFITS - OPEN ACCESS [id number] Yasmeen Ny [id number] Yasmeen Ny 12/14/2023 2 [place] [facility] Yasmeen Ny [id number] Yasmeen Ny 12/14/2023 1 [employer] - ALLIED BENEFITS - OPEN ACCESS [id number] Yasmeen Ny [id number] Yasmeen Ny 02/05/2024 2 [place] [facility] Yasmeen Ny [id number] Yasmeen Ny 02/05/2024 1 [employer] - ALLIED BENEFITS - OPEN ACCESS [id number] Yasmeen Ny [id number] Yasmeen Ny Notes Date Note Type Note Provider Name and Address Organization Details Recorded Time 024 text/ht ml 32 y/o HF presents for medical clearance for gall bladder surgery on 09/2023. The patient had multiple chronic medical problems: DM2, HPLD, ANDIE; BMI 30+, Hepatic steatosis. Her last HA1C on 08/20/2023 was 6.6. The patient has bee losing weight and exercising. She is not a smoker or uses illicit drugs. Patient wants to get 3 HPV vaccine . Has no contraindications. LAURA Hancock Attn: Accounting ,[address] [place], [address] , [facility] 09/03/2023 18:04:02 024 text/ht ml ObesityReported bypatient.Diagnosis Summary:diagnosis: obesity, acanthosis nigricans, and insulin resistance; additional diagnosis: elevated cholesterol/lipids Context:no inhaled steroids; no oral steroids Associated Symptoms:no depression; no chronic illness; no Prader-Willi Syndrome; no hypothyroidism Co-morbidities:no new co-morbidities since last visit Lifestyle changes:few constitutional symptoms related to diagnosis; no changes in living situation; motivated to continue lifestyle changes; losing weight; exercising more Medication Education:understands potential side effects; understands administration; understands role of diet as primary therapy 32 y/o HF presents for phentermine refill. The patient was started on 08/20/2023 to aid with her appetite/weight loss. Back in August the patient weighed in at 216. She is 205 today. She continues to monitor diet and exercising. She has started jogging. She denies CP and SOB no headaches. She had been off phentermine for about 6 weeks because of having GB surgery. She is requesting a refill triamcinolone for her chronic dermatitis. Chuck Craig [facility] Attn: Accounting ,[address] [place], [address] , [facility] 11/02/2023 15:40:54 024 text/ht ml ObesityReported bypatient.Context:no inhaled steroids; no oral steroids Associated Symptoms:no depression; no chronic illness; no Prader-Willi Syndrome; no hypothyroidism Co-morbidities:no new co-morbidities since last visit Lifestyle changes:few constitutional symptoms related to diagnosis; no changes in living situation; motivated to continue lifestyle changes; losing weight; exercising more Medication Education:understands potential side effects; understands administration; understands role of diet as primary therapy The patient was started on phentermine tabs 08/20/2023 to aid with her appetite/weight loss. Back in August 2023 the patient weighed in at 216 She is 198 today. She continues to monitor diet and exercising. She has used phentermine for a couple of months since starting it. She denies any abnormal side effects. She denies CP, SOB, headaches etc., She has not gotten elastogram done yet. Chuck Craig, PIPELINE TECHNICIAN- Attn: [place], [address] , [place] - [facility] 12/14/2023 13:05:16 024 text/ht ml Anxiety/DepressionReported bypatient.Severity:denies suicidal ideations; able to maintain relationships; does not interfere with activities of daily living Context:no major life stressors Associated Symptoms:denies homicidal ideations; no significant weight gain; no significant weight loss; no visual/auditory hallucinations; no delusions; no shortness of breath; mood good; no anxiety; no crying spells; no panic; no isolation; sleeping well; appetite good; energy good; no apathy; maintaining functionalityDiabetes F/UReported bypatient.Review finger sticks:fastin; post breakfast: 160 Labs:last A1C result: 9.6 Context:normal range of home blood sugars (in the low 100s); seeing eye doctor regularly; checking feet regularly; not missing doses of medications; no side effects from medications Associated Symptoms:no dizziness; no sweats; no headaches; no confusion; no increased urination; no numbness of feet; no calluses on feet;weight gain (3 lbs);weight loss ( lbs);increased thirst;increased appetite;blurred vision;irregular menstruationHyperlipidemiaReported bypatient.Type of hyperlipidemia:combined Duration:chronic;intermittent Prior Tests:07/06/2020 [id number] Trig 441 HDL 32 LDL 150 07/26/2021 cho 212 Trig 416 HDL 32.6 LDL 127 06/13/2022 cho 183.4 TRIG 311 HDL 35.5 LDL 95.6 04/21/2023 cho 227 Trig 509 Hdl 37 LDL 163 Control:not at goal Current Therapy:currently taking:; managing with LSM and statin Compliance:compliant; exercises;noncompliant with diet Complications:no coronary artery disease; no peripheral artery disease; no cardiovascular disease Risk Factors:diabetes;obesity;low HDL level;high lipoprotein(a) levelSinusitis/AllergyReported bypatient.Onset/Timing:chronic; recurring Quality:worsening;hoarseness;congeste d;colored phlegm;throbbing Duration:intermittent; had 1 sinus infections treated with antibiotics in the last year Severity:moderate;frequent breathing through the mouth Context:recent upper respiratory infection;worse with seasonal allergen exposure;worse around pollen;worse around dust;worse with environmental exposure Risk Factors:no current smoking or tobacco use; no history of smoking; no history of nasal trauma; no allergy to aspirin; no history of nasal polyps; no history of asthma; no chemotherapy;increased stress;family history of allergies;DM Aggravating factors:worse during an upper respiratory infection (a cold); worse when allergies are active 33 y/o HF on the telephone for refill chronic medications. She feels well. She is better from anxiety symptoms on Lexapro. She denies SI. She wants to continue it.She notices improvement on her skin issues. She will continue spironalactone to decrease the incidence of these cystic lesions on her trunk. She will continue same dosage.She voices her abdomen increased hanging skin its often moist and gives her an itchy red rash.Her varicosities are bothering her some are tortuous. She elevates legs.SHe is using Mounjaro 7.5mg once weekly. She is monitoring her diet. She wants to try phentermine to control her appetite. She has been made aware of potential side effects. She exercises on some days.She had cholecystectomy. No problems.She has clonazepam at home for prn anxiety. CHU Hancock- Attn: Accounting ,[address] [place], [address] , [place] - [facility] 02/05/2024 15:15:18 OBGyn Episode Ob Episode Information Episode Created Date Number of Fetuses Patient Bloodtype Patient rh Status Prepregnancy Weight lbs Domestic Partner Domestic Partner Phone Father Name Cray Fishing Hand Status 06/06/19 21 1 CLOSED Fetus Data First Name Last Name Admitted to NICU Weight (g) Sex Living Outcome Pediatric Complications Fetus ID Race Codes Race Delivery Type M [id number] Vaginal Rajeev Calculation Initial Rajeev Date Initial Exam Date Initial Exam Provider Initial Ultrasound Date Last Menstrual Period Date Ultra Sound Weeks Gestation 0 Eighteen To Twenty Week Rajeev Update Ultra Sound Date Fundal Height At Umbil Quickening Date Ultra Sound Latest Weeks Gestation Final Rajeev Confirmed By Final Rajeev Confirmed Date Final Rajeev Date Ultra Sound Latest Days Gestation 0 0 Menstrual History Last Menstrual Date Menses Monthly On Bcp Conception Prior Menses Frequency Hcg Plus Date Menarche Onset Age Delivery Information Delivery Date Delivery Type Labor Anesthesia Weeks Gestation Incision Type Labor Labor Length Hrs Delivered By Post Complications Tubal Sterilization Discharge Date Comments 1 Discharge Information Feeding Method Contraceptive Method Maternal HG B and HCT Levels
--- OUTSIDE RECORDS SUMMARY | 2024-07-04 19:09 | XMS_ITS | Continuity of Care Document ---
Author Organization [facility] Address [address] [place] [address] Phone Care Team Providers Care Ground Transportation Operator Name Role Phone Serg Caban MD Unavailable Ruchi vailable Medications Medication Instructions Dosage Effective Dates (start - stop) Status Comments triamcinolone acetonide 0.1 % Topical Cream apply by TOPICAL route 2 times every day a thin film to the affected skin areas - Active quantity in grams Procedures Procedure Date OFFICE/OUTPATIENT VISIT, [facility] OFFICE/OUTPATIENT VISIT, [facility] Advance Directives Directive Yes / No Effective Date File Name No Information Encounters Encounter Description Practice Location Reason(s) For Visit Diagnoses Date Provider Providers Copied on Encounter [facility] , [address], [place], [place], [id number], tel:[phone] [facility] No Information Marlyn Ulrich. [address], [place], [place], [address], . tel:[phone] OFFICE/OUTPATI ENT VISIT, EST [employer] [facility] , [address], [place], [place], [address], tel:[phone] [facility] exam (chief complaint) Intestinal infection due to other organism, not elsewhere classified Marlyn Ulrich. [address], [place], [place], [id number], . tel:[phone] [employer] [facility] , [address], [place], [place], [id number], tel:[phone] [facility] No Information Marlyn Ulrich. [address], [place], [place], [address], [place]. tel:[phone] OFFICE/OUTPATI ENT VISIT, [facility] , [address], [place], [place], [id number], tel:[phone] [facility] back pain (chief complaint) Backache Dominiquelorikelsey Ulrich. [address], [place], [place], [id number], [place]. tel:[phone] Family History Family Member Type Diagnosis Age At Onset No Information Payers Payer name Insurance type Covered democrat ID [facility](s) [facility] [id number] Social History Type Description Quantity Date Captured [...]
--- OUTSIDE RECORDS SUMMARY | 2024-07-04 19:09 | XMS_ITS | Data Portability ---
Author Organization [facility] [place] Address [address] [place] [address] Care Team Providers Care Admissions Manager Rn Name Role Phone CHEN CRAIG Primary Care Provider Assessment Encounter Date Assessment Date Assessment LastModified by Organization Details LastModified Time 05/05/2024 05/05/2024 Patient is ___weeks . Discussed plan. Not available 05/05/2024 16:47:15 06/02/2024 06/02/2024 Patient is ___weeks . Discussed plan. Not available 06/02/2024 17:11:46 06/30/2024 06/30/2024 Patient is ___weeks . Discussed plan. Not available 06/30/2024 13:58:18 Plan of Treatment Reminders Order Date Submit Date Provider Last Modified By Organization Details Last Modified Time Details Appointments OB ROUTINE 2024 01:00P Raghavendra APONTE MD Not available Not available Not available Lab None recorded . Referral None recorded . Procedures None recorded . Surgeries None recorded . Imaging None recorded . Medication Orders None recorded . Patient TargetsNo targets recorded. Patient InstructionsNo instructions recorded. Reason for Referral None Reported. Results Created Date Observation Date Name Description Value Unit Range Abnormal Flag Note LastModifiedBy Organization Detail LastModifiedTime 04/07/2004/07/2024 drug scree n, urine Amphetamines : negati ve Not Available [place] [address], [place], [address], 04/07/2024 18:17:40 04/07/20 24 04/07/2024 drug scree n, urine Cannabinoids : positi ve Not Available [place] [address], [place], [address], 04/07/2024 18:17:40 04/07/20 24 04/07/2024 drug scree n, urine Cocaine: negati ve Not Available [place] [address], [place], [address], 04/07/2024 18:17:40 04/07/20 24 04/07/2024 drug scree n, urine Opiates: negati ve Not Available [place] [address], [place], [address], 04/07/2024 18:17:40 04/07/20 24 04/07/2024 drug scree n, urine Phenocyclidi ne: negati ve Not Available [place] [address], [place], [address], 04/07/2024 18:17:40 04/07/20 24 04/07/2024 drug scree n, urine Barbiturates : negati ve Not Available [place] [address], [place], [address], 04/07/2024 18:17:40 04/07/20 24 04/07/2024 drug scree n, urine Benzodiazepi faiza: negati ve Not Available [place] [address], [place], [address], 04/07/2024 18:17:40 04/07/20 24 04/07/2024 drug scree n, urine Ethanol: negati ve Not Available [place] [address], [place], [address], 04/07/2024 18:17:40 04/07/20 24 04/07/2024 drug scree n, urine Hallucinogen s: negati ve Not Available [place] [address], [place], [address], 04/07/2024 18:17:40 04/07/20 24 04/07/2024 drug scree n, urine Inhalants: negati ve Not Available [place] [address], [place], [address], 04/07/2024 18:17:40 04/07/20 24 04/07/2024 drug scree n, urine Anabolic Steroids: negati ve Not Available [place] [address], [place], [address], 04/07/2024 18:17:40 04/07/20 24 04/05/2024 US, obste tric, follo w-up No observ ation record ed. [email or web address] [facility] [address], [place], [address], 05/10/2024 16:46:36 04/07/20 24 04/07/2024 US, obste tric, nucha l trans lucen cy No observ ation record ed. [email or web address] [place] [address], [place], [address], 04/07/2024 17:49:39 04/07/20 24 04/07/2024 US, obste tric, nucha l trans lucen cy No observ ation record ed. [email or web address] [address], [place], [address], 04/07/2024 20:07:13 05/05/19 25 05/05/2024 US, obste tric, limit ed No observ ation record ed. [email or web address] [address], [place], [address], 05/05/2024 21:16:41 06/01/19 25 05/31/2024 US, obste tric, follo w-up No observ ation record ed. [email or web address] [facility] [address], [place], [address], 06/22/2024 11:58:36 06/29/1906/28/2024 US, obste tric, follo w-up No observ ation record ed. [email or web address] [facility] [address], [place], [address], 06/30/2024 00:17:48 Result Notes None recorded. Problems Name Problem SNOMED Code Status Onset Date Resolution Date Notes Provider Name and Address Organization Details Recorded Time Finding of fertilit y Completed 201704/26/2020 Female infertil ity, unspecif ied;Prac sarath ID: [address] [facility] 14:54:13 Dysuria [id number] Completed 201704/26/2020 Dysuria; Practice ID: 0001 Jorge Diaz [facility] 14:54:28 Acute vaginiti s [id number] Completed 201705/08/2020 Acute vaginiti s;Practi ce ID: [address] [facility] 12:09:31 Female genital organ symptoms [id number] Completed 201104/26/2020 Unspecif ied symptom associat ed with female genital organs;R ecorded Elsewher e: No Locat ion: [facility] S ource: [employer] Software Developer ashlyn: N Practi ce ID: 0001 Ezio lable Time: 03:00:[address] [facility] 14:54:25 Body mass index 30+ - obesity [id number] Completed 201505/08/2020 Body mass index (BMI) 45.0-49. 9, adult;Re corded Elsewher e: No Locat ion: [facility] S ource: [employer] Software Developer ashlyn: N Practi ce ID: 0001 Ezio lable Time: 05:30:00 PM Yadira zamarripa, [facility] 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 14:53:39 Syphilis test finding [id number] Completed 201504/26/2020 Encntr screen for infectio ns w sexl mode of transmis s;Record ed Elsewher e: No Locat ion: [facility] S ource: [employer] Software Developer ashlyn: N Practi ce ID: 0001 Ezio lable Time: 05:30:[address] [facility] 14:53:43 Obesity 010932820 Completed 201305/08/2020 LD ASA per MFM Yadira Mckeon [facility] 1 12:09:[address] Concept Completed 201704/26/2020 Encntr for general adult medical exam w/o abnormal findings ;Recorde d Elsewher e: No Locat ion: [facility] S ource: [employer] Software Developer ashlyn: N Practi ce ID: 0001 Ezio lable Time: 08:30:[address] [facility] 14:53:36 Screenin g for malignan t neoplasm of cervix Completed 201104/26/2020 Pap Smear;Pr actice ID: [address] [facility] 14:53:52 Ill-defi meño intestin al infectio n Completed 201104/26/2020 No Show Fee;Prac sarath ID: [address] [facility] 14:54:20 Amenorrh ea [id number] Completed 201105/08/2020 AMENORRH EA;Pract ice ID: [address] [facility] 12:09:33 Pregnanc y test negative [id number] Completed 201104/26/2020 Negative Pregnanc y Test;Pra ctice ID: 0001 [address] [facility] 14:53:57 Polycyst ic ovaries Completed 201305/08/2020 Polycyst ic ovaries; Practice ID: [address] [facility] 12:09:44 Migraine 08262830 Completed 201305/08/2020 Migraine , unspecif ied without mention of intracta ble migraine ;Practic e ID: [address] [facility] 12:09:40 Adult health examinat ion Completed 201404/26/2020 Routine general medical examinat ion at a health care facility ;Practic e ID: 0001 Jorge [address] [facility] 14:54:37 Speciali zed medical examinat ion Completed 201404/26/2020 Other specifie d chlamydi al diseases ;Practic e ID: [address] [facility] 14:53:40 Venereal disease screenin g Completed 201404/26/2020 Screenin g examinat ion for venereal disease; Practice ID: 0001 Jorge zamarripa [facility] 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 14:53:34 Clinical finding Completed 201504/26/2020 Obesity, unspecif ied;Prac sarath ID: 0001 Jorge Diaz [facility] 14:54:15 Severe obesity [id number] 104 Completed 201504/26/2020 Morbid (severe) obesity due to excess calories ;Practic e ID: 0001 Jorge Diaz [facility] 14:54:02 Primary amenorrh ea 752447877 Completed 201704/26/2020 Primary amenorrh ea;Pract ice ID: 0001 [address] [facility] 14:53:54 Metaboli c syndrome X [id number] Completed 201305/08/2020 Insulin resistan ce;Recor ded Elsewher e: No Locat ion: [facility] S ource: [employer] Software Developer ashlyn: N Practi ce ID: 0001 Ezio lable Time: 09:45:00 AM [facility] 12:09:39 Infectio n screenin g Completed 201504/26/2020 Encounte r for screenin g for oth infec/pa rastc diseases ;Recorde d Elsewher e: No Locat ion: [facility] S ource: [employer] Software Developer ashlyn: N Practi ce ID: 0001 Ezio lable Time: 05:30:[address] [facility] 1 14:54:11 Diabetes mellitus 40268952 Completed 201905/08/2020 type 2 Yadira Mckeon [facility], [facility] 1 12:09:37 Anxiety 98664700 Completed 201905/08/2020 Zoloft Yadira Mckeon [facility], [facility] 1 12:09:34 Abnormal cervical Papanico laou smear 514924446 Completed 201905/08/20202014 Yadira Mckeon [facility], [facility] 12:09:30 Pregnanc y 60133286 Completed 201905/08/2020 Nehal Armendariz [facility], [facility] 4 18:08:47 Type 2 diabetes mellitus 65455649 Completed Metformi n xr 2000mg qd Sent to [facility] for manageme nt- 05/16- NPH 26U AM/88U PM Increase 2 units when 1 consecut wili fasting >90 / Humalog 16U w/ bfast & 8Uw/ lunch & 32U w/ dinner. 6units with snack over 15g carbs. Nhi Reeves [facility], [facility] 1 13:40:41 Purpuric rash 341595240 Completed clotimaz ole/beta methazon e-Rxed Nhi Reeves [facility], [facility] 13:40:41 Obesity 118156784 Completed 2013 LD ASA per [facility] Nhi Reeves [facility], [facility] 1 13:40:41 Marginal insertio n of umbilica l cord 60506439 Completed 2019 growth u/s Nhi Reeves [facility], [facility] 13:40:41 Dilatati on of renal pelvis Completed - bilatera l - growth u/s Nhi Reeves [facility] null, [facility] 13:40:41 Anxiety 13760207 Completed 2019 Zoloft Nhi Reeves h[facility] null, [facility] 13:40:41 Pre-exis ting type 2 diabetes mellitus in pregnanc y [id number] Completed 2020 DELIVER BY 37- not well controll ed. [facility] may rec earlier. Nhi Reeves hl null, [facility] 13:40:41 Pre-exis ting type 2 diabetes mellitus in pregnanc y 385581092 Completed 202005/08/2020 Yadiraconnor Mckeon null, [facility] 12:09:45 Large for gestatio n age fetus 949359142 Completed potentia l 89% 05/11 Nhi Reeves hl null, [facility] 13:40:41 Pregnanc y 28575228 Active 2023 Nehal Armendariz [facility], [facility] 4 18:08:47 Type 2 diabetes mellitus 17085823 Active managed by [facility] ST 05/10 [facility] 06/28 and office visit Jenni Diaz null, [facility] 5 11:58:58 Problem Notes None recorded. Procedures Surgical History Date Name Laterality Status Provider Name and Address Organization Details Recorded Time 03/01/20 24 Date of Last Pap Smear completed Nehal Armendariz [facility] 04/07/2024 18:07:50 09/02/19 23 IUD Removal completed Dante Aponte MD [address], [place], [address], [facility] 09/01/2022 22:15:29 05/19/19 23 Colposcopy completed Danet Aponte MD [address], [place], [address], [facility] 05/19/2022 15:31:57 05/19/19 23 Colposcopy completed Alva Kimble [facility] 03/09/2023 16:31:33 05/19/19 23 Colposcopy completed Sarah Jordan [facility] 05/19/2022 14:35:43 07/28/19 22 IUD Insertion completed Dante Aponte MD [address], [place], [address], [facility] 07/27/2021 12:17:49 05/22/19 21 NST completed Bel Dennison MD [address], [place], [address], [facility] 05/22/2020 14:09:48 05/15/19 21 NST completed Bel Dennison MD [address], [place], [address], [facility] 05/15/2020 13:43:28 04/27/19 21 NST completed Bel Dennison MD [address], [place], [address], [facility] 04/27/2020 12:17:14 04/20/19 15 Tonsillectomy completed Alva Kimble [facility] 11/09/2019 16:35:35 Imaging Results Imaging Date Name Status LastModified by Organization Details LastModified Time 04/05/2024 US, obstetric, follow-up completed [email or web address] [facility] [address] , [place], [address], 05/10/2024 16:46:36 04/07/2024 US, obstetric, nuchal translucency completed [email or web address] [place] [address], [place], [address], 04/07/2024 17:49:39 04/07/2024 US, obstetric, nuchal translucency completed [email or web address] [address], [place], [address], 04/07/2024 20:07:13 05/05/2024 US, obstetric, limited completed [email or web address] [address], [place], [address], 05/05/2024 21:16:41 05/31/2024 US, obstetric, follow-up completed [email or web address] [place] [address] [address] [facility], [place], [address], 06/22/2024 11:58:36 06/28/2024 US, obstetric, [email or web address] [address] [facility], [place], [address], 06/30/2024 00:17:48 Procedure Notes None recorded. Medical Equipment None Reported. Allergies Allergen ID Allergen Name Allergen Category Reaction Reaction Severity Criticality Documentation Date Start Date Code Code System Note Provider Name and Address Organization Details Recorded Time 1407 lisinopri l medicatio n rash Not available Not available 11/09/[address] [facility] 0 11:13:14 Medications Name Sig Start Date Stop Date Status Note LastModified by Organization Details LastModified Time Mirena 21 mcg/24 hr (up to 8 years) 52 mg intrauter ine device Take by intraute rine route. 04/25 completed Not Available Not Available Not Available fluconazo le 100 mg tablet 11/08 completed Not Available Not Available Not Available silver sulfadiaz ine 1 % topical cream APPLY A 1/16 INCH (1.5 MM) THICK LAYER TO ENTIRE BURN AREA TOPICALL Y TWICE DAILY 03/09 completed Not Available Not Available Not Available metformin 500 mg tablet TAKE 1 TABLET BY MOUTH TWICE DAILY 07/06 completed Not Available Not Available Not Available promethaz ine-DM 6.25 mg-15 mg/5 mL oral syrup 07/27 completed Not Available Not Available Not Available prednison e 10 mg tablet 11/08 completed Not Available Not Available Not Available atorvasta tin 20 mg tablet TAKE 1 TABLET BY MOUTH ONCE DAILY 02/21 completed Not Available Not Available Not Available cetirizin e 10 mg tablet TAKE 1 TABLET BY MOUTH ONCE DAILY 02/21 completed Not Available Not Available Not Available azithromy andrew 250 mg tablet 07/27 completed Not Available Not Available Not Available ofloxacin 0.3 % eye drops 03/09 completed Not Available Not Available Not Available fluconazo le 150 mg tablet TAKE 1 TABLET BY MOUTH ONCE DAILY active Not Available Not Available No t Available benzonata te 200 mg capsule TAKE 1 CAPSULE BY MOUTH THREE TIMES DAILY 02/21 completed Not Available Not Available Not Available tretinoin 0.025 % topical cream APPLY CREAM EXTERNAL LY TO AFFECTED AREA AT BEDTIME 02/21 completed Not Available Not Available Not Available hydrocort isone 1 % topical ointment active Not Available Not Available Not Available phenazopy ridine 200 mg tablet TAKE 1 TABLET BY MOUTH THREE TIMES DAILY FOR 2 DAYS 02/21 completed Not Available Not Available Not Available prednison e 20 mg tablet TAKE 1 TABLET BY MOUTH ONCE DAILY FOR 5 DAYS 03/09 completed Not Available Not Available Not Available clonazepa m 0.5 mg tablet TAKE 1 TABLET BY MOUTH TWICE DAILY NEEDED 02/21 completed Not Available Not Available Not Available spironola ctone 100 mg tablet TAKE 1 TABLET BY MOUTH TWICE DAILY 04/07 completed Not Available Not Available Not Available terconazo le 0.8 % vaginal cream insert 1 applicat orful by vaginal route every day at bedtime 11/08 completed Not Available Not Available Not Available metformin 850 mg tablet take 1 tablet by oral route 2 times every day with morning and evening meals 01/11 completed Prescrib ed Elsewher e: Yes Loca tion: Saji sandoval [facility] odify By: [email or web address] E ncounter DateTime : 02/13/20 17 03:00:00 PM Not Available Not Available Not Available clobetaso l 0.05 % topical cream 07/27 completed Not Available Not Available Not Available metronida zole 500 mg tablet take 1 tablet by oral route every 12 hours 11/08 completed Not Available Not Available Not Available phentermi ne 37.5 mg tablet TAKE 1/2 (ONE-CLARITA F) TABLET BY MOUTH ONCE DAILY 04/07 completed Not Available Not Available Not Available ciproflox acin 500 mg tablet TAKE 1 TABLET BY MOUTH EVERY 12 HOURS FOR 3 DAYS 03/09 completed Not Available Not Available Not Available sulfameth oxazole 800 mg-trimet hoprim 160 mg tablet TAKE 1 TABLET BY MOUTH EVERY 12 HOURS FOR 10 DAYS 02/21 completed Not Available Not Available Not Available aspirin 81 mg tablet,de layed release TAKE 1 TABLET BY MOUTH ONCE DAILY 04/07 completed Not Available Not Available Not Available triamcino lone acetonide 0.1 % topical cream APPLY CREAM EXTERNAL LY TO AFFECTED AREA TWICE DAILY FOR 90 DAYS FOR DERMATIT IS 04/07 completed Not Available Not Available Not Available butalbita l-acetami nophen-ca ffeine 50 mg-325 mg-40 mg tablet TAKE 1 TO 2 TABLETS BY MOUTH EVERY 6 HOURS NEEDED FOR HEADACHE 04/27 completed Not Available Not Available Not Available oxycodone -acetamin ophen 5 mg-325 mg tablet TAKE 1 TO 2 TABLETS BY MOUTH EVERY 6 HOURS NEEDED FOR PAIN 04/07 completed Not Available Not Available Not Available Metrogel Vaginal 0.75 % (37.5 mg/5 gram) insert 1 applicat orful by vaginal route every day at bedtime for 5 nights 10/13 completed Prescrib ed Elsewher e: No Locat ion: [facility] odify By: richard Sandoval ncounter DateTime : 02/03/20 18 02:19:49 PM Not Available Not Available Not Available famotidin e 20 mg tablet TAKE 1 TABLET BY MOUTH TWICE DAILY 02/21 completed Not Available Not Available Not Available clindamyc in 1 % topical gel APPLY A THIN LAYER TOPICALL Y TO AFFECTED AREA TWICE DAILY 02/21 completed Not Available Not Available Not Available benzonata te 100 mg capsule 07/27 completed Not Available Not Available Not Available cephalexi n 500 mg capsule TAKE 1 CAPSULE BY MOUTH EVERY 6 HOURS FOR 7 DAYS 02/21 completed Not Available Not Available Not Available oseltamiv ir 75 mg capsule TAKE ONE CAPSULE BY MOUTH TWICE DAILY FOR 5 DAYS 02/21 completed Not Available Not Available Not Available metformin 1,000 mg tablet TAKE 2 TABLETS BY MOUTH ONCE DAILY active Not Available Not Available No t Available clotrimaz ole-betam ethasone 1 %-0.05 % topical cream APPLY TO THE AFFECTED AND SURROUND ING AREAS OF SKIN BY TOPICAL ROUTE 2 TIMES PER DAY IN THE MORNING AND EVENING FOR 2 WEEKS 07/27 completed Not Available Not Available Not Available Gentle Laxative (bisacody l) 5 mg tablet,de layed release 11/08 completed Not Available Not Available Not Available Humulin N NPH U-100 Insulin (isophane susp) 100 unit/mL subcutane ous Inject 5 units every day by subcutan eous route in the evening. 07/27 completed Not Available Not Available Not Available nystatin- triamcino lone 100,000 unit/g-0. 1 % topical cream apply by topical route 2 times every day to the affected area(s) in the morning and evening 11/20 completed Prescrib florecita Simental e: No Locat ion: [facility] odify By: [email or web address] Encounte r DateTime : 10/14/19 08:30:00 AM Not Available Not Available Not Available diclofena c sodium 75 mg tablet,de layed release TAKE 1 TABLET BY MOUTH TWICE DAILY 02/21 completed Not Available Not Available Not Available monteluka st 10 mg tablet TAKE 1 TABLET BY MOUTH ONCE DAILY FOR ALLERGIE S 02/21 completed Not Available Not Available Not Available hydroxyzi ne HCl 25 mg tablet TAKE 1 TABLET BY MOUTH THREE TIMES DAILY 02/21 completed Not Available Not Available Not Available mupirocin 2 % topical ointment APPLY A SMALL AMOUNT OF OINTMENT TOPICALL Y TO AFFECTED AREA THREE TIMES DAILY 03/09 completed Not Available Not Available Not Available ergocalci ferol (vitamin D2) 1,250 mcg (50,000 unit) capsule TAKE 1 CAPSULE BY MOUTH ONCE A WEEK 04/07 completed Not Available Not Available Not Available nystatin 100,000 unit/gram topical powder APPLY POWDER TOPICALL Y TO AFFECTED AREA TWICE DAILY 02/21 completed Not Available Not Available Not Available methylpre dnisolone 4 mg tablets in a dose pack 07/27 completed Not Available Not Available Not Available albuterol sulfate HFA 90 mcg/actua tion aerosol inhaler INHALE 2 PUFFS BY MOUTH EVERY 4 HOURS active Not Available Not Available No t Available norethind fantasma (contrace ptive) 0.35 mg tablet TAKE 1 TABLET BY MOUTH ONCE DAILY 02/21 completed Not Available Not Available Not Available ketoconaz ole 2 % topical cream apply by topical route 2 times every day for 4 weeks to the affected area(s) 06/17 completed Prescrib florecita Simental e: No Locat ion: [facility] odify By: karine calix DateTime : 05/21/19 16 05:30:00 PM Not Available Not Available Not Available clobetaso l 0.05 % scalp solution 07/27 completed Not Available Not Available Not Available ondansetr on 4 mg disintegr ating tablet DISSOLVE 1 TABLET IN MOUTH EVERY 8 HOURS NEEDED FOR NAUSEA AND VOMITING 02/21 completed Not Available Not Available Not Available fluticaso ne propionat e 50 mcg/actua tion nasal spray,sudarshan pension USE 1 SPRAY(S) IN EACH NOSTRIL ONCE DAILY 02/21 completed Not Available Not Available Not Available metformin ER 500 mg tablet,ex tended release 24 hr TAKE 2 TABLETS BY MOUTH TWICE DAILY 03/09 completed Not Available Not Available Not Available sertralin e 50 mg tablet TAKE 1 TABLET BY MOUTH ONCE DAILY 07/27 completed Not Available Not Available Not Available ParaGard T 380A 380 square mm intrauter ine device Take by intraute rine route. 03/09 completed Not Available Not Available Not Available doxycycli ne hyclate 100 mg tablet TAKE 1 TABLET BY MOUTH TWICE DAILY FOR 7 DAYS 02/21 completed Not Available Not Available Not Available spironola ctone 50 mg tablet TAKE 1 TABLET BY MOUTH TWICE DAILY 02/21 completed Not Available Not Available Not Available amoxicill in 875 mg-potass ium clavulana te 125 mg tablet TAKE 1 TABLET BY MOUTH EVERY 12 HOURS FOR 7 DAYS 02/21 completed Not Available Not Available Not Available insulin lispro (U-100) 100 unit/mL subcutane ous pen INJECT 6 UNITS SUBCUTAN EOUSLY BEFORE SMALL MEALS (<30 G), 10 UNITS BEFORE MEDIUM MEALS (30-45 G), AND 14 UNITS BEFORE LARGE MEALS (>60 G). INJECT 0-15 MINUTES BEFORE MEALS. INCREASE DOSE DIRECTED DURING PREGNANC Y. MAX TOTAL DAILY DOSE 50 UNITS. active Not Available Not Available No t Available escitalop donavan 20 mg tablet TAKE 1 TABLET BY MOUTH ONCE DAILY 02/21 completed Not Available Not Available Not Available Novolog FlexPen U-100 Insulin aspart 100 unit/mL (3 mL) subcutane ous INJECT 4 UNITS SUBCUTAN EOUSLY WITH MEALS CONTAINI NG CARBOHYD RATES. INCREASE DOSE DIRECTED . MAX TOTAL DAILY DOSE 20 UNITS. active Not Available Not Available No t Available nitrofura ntoin monohydra te/macroc rystals 100 mg capsule TAKE 1 CAPSULE BY MOUTH EVERY 12 HOURS FOR 7 DAYS 03/09 completed Not Available Not Available Not Available Klonopin 02/21 completed Not Available Not Available Not Available Celexa 12/08 completed Not Available Not Available Not Available 07/27 completed Not Available Not Available Not Available Lexapro 12/08 completed Not Available Not Available Not Available Loestrin 24 Fe 1 mg-20 mcg (24)/75 mg (4) tablet take 1 tablet by oral route every day 08/19 completed Prescrib ed Kamille e: No Locat ion: [facility] M odify By: [email or web address] trick En counter DateTime : 01/16/20 12 03:00:00 PM Not Available Not Available Not Available Lantus Solostar U-100 Insulin 100 unit/mL (3 mL) subcutane ous pen INJECT 10 UNITS SUBCUTAN EOUSLY IN THE MORNING AND 10 AT BEDTIME (TAKE DOSAGES APPROXIM ATELY 12 HOURS APART. INCREASE DOSE DIRECTED DUE TO INCREASI NG INSULIN REQUIREM ENTS DURING PREGNANC Y. MAX TOTAL DAILY DOSE OF 50 UNITS) active Not Available Not Available No t Available Adacel (Tdap Adolesn/A dult)(PF) 2 Lf-(2.5-5 -3-5)-5 Lf/0.5 mL IM syringe PHARMACI ST ADMINIST ERED IMMUNIZA TION ADMINIST ERED AT TIME OF DISPENSI NG 05/08 completed Not Available Not Available Not Available OneTouch Verio test strips USE STRIP TO CHECK GLUCOSE 4 TIMES DAILY ,FASTING AND 1 HOUR AFTER MEALS 05/05 completed Not Available Not Available Not Available icosapent ethyl 1 gram capsule TAKE 2 CAPSULES BY MOUTH TWICE DAILY 02/21 completed Not Available Not Available Not Available Fioricet 50 mg-300 mg-40 mg capsule Take 1 capsule every 4 hours by oral route. active Not Available Not Available No t Available Contrave 8 mg-90 mg tablet,ex tended release take 2 tablet by oral route 2 times every day in the morning and evening 02/12 completed Prescrib florecita Simental e: No Locat ion: [facility] M odify By: claire kearns DateTime : 06/07/19 01:29:48 PM Not Available Not Available Not Available Trulicity 0.75 mg/0.5 mL subcutane ous pen injector START AT 0.75MG SUBCUTAN EOUSLY ONCE A WEEK, THEN MAY INCREASE TO 1.5MG SUBCUTAN EOUSLY ONCE A WEEK 03/09 completed Not Available Not Available Not Available OneTouch Verio Flex Meter USE DIRECTED 04/07 completed Not Available Not Available Not Available TRUEplus Pen Needle 32 gauge x USE 1 PEN NEEDLE FIVE TIMES DAILY active Not Available Not Available No t Available Ozempic 0.25 mg or 0.5 mg (2 mg/1.5 mL) subcutane ous pen injector INJECT 1.5mg UNDER THE SKIN ONCE WEEKLY 03/09 completed Not Available Not Available Not Available BD Veo Insulin Syringe Ultra-Fin e 1/2 mL 31 gauge x 15/64 07/27 completed Not Available Not Available Not Available FreeStyle Herrera 14 Day Sensor kit USE DIRECTED 07/27 completed Not Available Not Available Not Available M-Raz Plus 27 mg iron-1 mg tablet active Not Available Not Available No t Available OneTouch Delica Plus Lancet 33 gauge USE 1 TO CHECK GLUCOSE 4 TIMES DAILY FASTING AND 1 HOUR AFTER MEALS 04/07 completed Not Available Not Available Not Available Baqsimi 3 mg/actuat ion nasal spray USE 1 SPRAY(S) INTO NOSTRIL NEEDED active Not Available Not Available No t Available FreeStyle Herrera 2 Hancock 07/06 completed Not Available Not Available Not Available Fluzone Quad (PF) 60 mcg (15 mcg x 4)/0.5 mL IM syringe PHARMACI ST ADMINIST ERED IMMUNIZA TION ADMINIST ERED AT TIME OF DISPENSI NG 04/27 completed Not Available Not Available Not Available Trulicity 3 mg/0.5 mL subcutane ous pen injector INJECT 1 SYRINGE SUBCUTAN EOUSLY ONCE A WEEK 02/21 completed Not Available Not Available Not Available Ozempic 1 mg/dose (4 mg/3 mL) subcutane ous pen injector INJECT ONE MG UNDER THE SKIN EVERY WEEK 03/09 completed Not Available Not Available Not Available Semglee (insulin glargine- yfgn) Pen 100 unit/mL (3 mL) subcutane ous INJECT 10 UNITS SUBCUTAN EOUSLY IN THE EVENING INCREASE DOSE DIRECTED DURING PREGNANC Y. MAX DAILY DOSE 50 UNITS active Not Available Not Available No t Available Mounjaro 7.5 mg/0.5 mL subcutane ous pen injector INJECT 1 SYRINGE SUBCUTAN EOUSLY ONCE A WEEK 04/07 completed Not Available Not Available Not Available Mounjaro 5 mg/0.5 mL subcutane ous pen injector INJECT 1 SYRINGE SUBCUTAN EOUSLY ONCE A WEEK 04/07 completed Not Available Not Available Not Available Mounjaro 10 mg/0.5 mL subcutane ous pen injector INJECT 1 SYRINGE SUBCUTAN EOUSLY ONCE A WEEK 04/07 completed Not Available Not Available Not Available Mounjaro 2.5 mg/0.5 mL subcutane ous pen injector INJECT 1 SYRINGE SUBCUTAN EOUSLY ONCE A WEEK THEN INJECT 5 MG DOSE ONCE WEEKLY 02/21 completed Not Available Not Available Not Available Dexcom G7 Sensor device USE DIRECTED FOR 10 DAYS active Not Available Not Available No t Available Vitals Date Recorded Body height Body mass index (BMI) Body weight Systolic blood pressure Diastolic blood pressure Provider Name and Address Organization Details Last Updated DateTime 05/05/2024 158.75 cm 39.1 kg/m2 39109.54 429 g 114 mm[Hg] 70 mm[Hg] [facility] 16:47:38 Date Recorded Body weight Systolic blood pressure Diastolic blood pressure Provider Name and Address Organization Details Last Updated DateTime 06/02/2024 711907.506 14 g 113 mm[Hg] 78 mm[Hg] [facility] 06/02/2024 17:14:25 Date Recorded Body weight Systolic blood pressure Diastolic blood pressure Provider Name and Address Organization Details Last Updated DateTime 06/30/2024 708436.652 73 g 110 mm[Hg] 71 mm[Hg] [facility] 06/30/2024 13:59:07 Social History Question Answer Notes LastModified by Organizat ion Details LastModified Time Tobacco Smoking Status Never [email or web address]09[facility] 16:27:58 What Is Your Level Of Alcohol Consumption? Occasional [email or web address] Information not available 11/09/2019 Are You Blind Or Do You Have Difficulty Seeing? No [email or web address] Information not available 03/09/2023 What Is Your Level Of Caffeine Consumption? Occasional [email or web address] Information not available 03/09/2023 In The 14 Days Before Symptom Onset, Have You Had Close Contact With A Laboratory-confir med COVID-19 While That Case Was Ill? No [email or web address] Information not available 03/09/2023 In The 14 Days Before Symptom Onset, Have You Had Close Contact With A Person Who Is Under Investigation For COVID-19 While That Person Was Ill? No [email or web address] Information not available 03/09/2023 Have You Been To An Area Known To Be High Risk For COVID-19? No [email or web address] Information not available 03/09/2023 Are You Deaf Or Do You Have Serious Difficulty Hearing? No [email or web address] Information not available 03/09/2023 What Type Of Diet Are You Following? DIABETIC [email or web address] Information not available 03/09/2023 Which Illicit Or Recreational Drugs Have You Used? Humble [email or web address] Information not available 11/09/2019 Do You Or Have You Ever Used E-cigarettes Or Vape? Never Used Electronic Cigarettes [email or web address] Information not available 11/09/2019 What Was The Date Of Your Most Recent Tobacco Screening? 03/09/2023 [email or web address] Information not available 03/09/2023 Do You Use Your Seat Belt Or Car Seat Routinely? Yes [email or web address] Information not available 03/09/2023 Do You Have Smoke And Carbon Monoxide Detectors In Your Home? Yes [email or web address] Information not available 03/09/2023 Do You Or Have You Ever Used Smokeless Tobacco? Never Used Smokeless Tobacco Information not available 11/09/2019 How Much Tobacco Do You Smoke? No [email or web address] Information not available 11/09/2019 Do You Feel Stressed (tense, Restless, Nervous, Or Anxious, Or Unable To Sleep At Night)? [id number] Information not available 03/09/2023 Do You Use Sunscreen Routinely? Yes [email or web address] Information not available 03/09/2023 Sex: Unknown Functional Status Question Answer Note LastModified by Organizat ion Details LastModified Time Do you have difficulty walking or climbing stairs? No [email or web address] Information not available 03/09/2023 Are you able to walk? YESWOREST [email or web address] Information not available 03/09/2023 Are you able to care for yourself? Yes [email or web address] Information not available 03/09/2023 Do you have difficulty dressing or bathing? No [email or web address] Information not available 03/09/2023 What is your exercise level? Occasional [email or web address] Information not available 11/09/2019 Mental Status None recorded. Family History Relationship Description Onset Age of this Age Resolved Age Notes LastModified by Organization Details LastModified Time Maternal Grandmother Diabetes mellitus Not available 11/08 16:27:24 Maternal Aunt Diabetes mellitus [email or web address] Not available 11/08 16:27:24 Maternal Aunt Malignant tumor of cervix [email or web address] Not available 11/08 16:27:36 Maternal Aunt Malignant tumor of breast [email or web address] Not available 11/08 16:27:47 Medical History Condition Response Allergies (Food, seasonal, environmental ) Y Other N Drug/Latex Allergies/Reactions Y Blood Transfusion N Breast Cancer N Dermatologic Disorders N Lung Disease N Defects or Inherited Disease N Breast Problem N Gestational Diabetes N Hematologic disorders N Anesthesia Complications N History of STI Y Deep Vein Thrombosis N Polycystic ovary syndrome Y Anxiety Disorder Y Autoimmune disease N Arthritis N Polyps N Infertility N Acid Reflux (GERD) Y History of abnormal pap Y Cancer N Varicosities N Stroke N Neurologic/Epilepsy N Endometriosis N High Cholesterol Y Fibromyalgia N Headaches N Kidney Disease N Heart Problems N Thyroid Problems N Kidney or Bladder Problems N GI Problems N Eating Disorder N Anemia N Art (IVF or FET) N Psychiatric Illness Y Ovarian Cancer N Diabetes Y Pulmonary (TB, Asthma) N Hepatitis/Liver Disease N No Past Medical History N Eczema N Urinary Tract Infection N Abuse/Domestic Violence N Asthma N Trauma/Violence N Depression/ depression Y Heart Disease N Pre-Eclampsia N Hypertension N Osteoporosis N Thrombophilias N Gynecological History Statement/Question Response Abnormal Pap Y Flow Moderate Date of LMP 01/13/2024 Was last menstrual period normal Y STIs/STDs Y HPV Vaccine N Colposcopy 05/19/2022 Duration of Flow (days) 4 Current Control Method Are cycles usually normal Y Frequency of Cycle (Q days) 28 Sexually Active? Y Menses Monthly Y Date of Last Pap Smear 03/01/2024 Sexual Problems? N Desired Control Method LMP Definite Obstetrics History GPAL:G 2 P 1 0 0 1 Type Value Full Term 1 Living 1 Total 2 Past Encounters Encounter ID Performer Location Encounter Start Date Encounter Closed Date Diagnosis/Indication Diagnosis SNOMED-CT Code Diagnosis ICD10 Code Diagnosis Note [id number] Franci Wyman CNM [facility] [address] [address] 11/09/2019 10:35:05 11/09/2019 12:09:35 [id number] Shahana Hill [facility] [address],[place] [address] 11/09/2019 10:36:18 11/09/2019 13:42:01 [id number] Dante Aponte MD [facility] [address],[place] [address] 12/09/2019 10:39:11 12/09/2019 12:29:37 screening 858599898 Z36.82 Z36.0 Z36.89 Pruritic rash 23845942 L 28.2 Routine an tenatal care 189158369 Z34.01 [id number] [facility] [address],[place] [address] 12/09/2019 10:39:39 12/09/2019 11:48:03 screening 823080537 Z36.82 Z36.0 Z36.89 [id number] Dante Aponte MD [facility] [address],[place] [address] 01/06/2020 11:18:19 01/06/2020 12:48:28 Gestational diabetes mellitus class A2 57786753 O24.414 [id number] [facility] [address],[place] [address] 01/06/2020 11:18:55 01/06/2020 14:59:05 [id number] [facility] [address],[place] [address] 02/03/2020 09:30:52 02/03/2020 12:31:48 screening for malformation 931238138 Z36.3 [id number] Franci Wyman [facility] [address],[place] [address] 02/03/2020 09:31:14 02/03/2020 13:25:47 Routine care 106280082 Z34.92 [id number] Dante Aponte MD [facility] [address],[place] [address] 02/24/2020 14:40:59 02/24/2020 16:52:22 Headache 20681832 R51.9 Anxiety 84296824 F41.9 [id number] [facility] [address],[place] [address] 03/02/2020 09:24:54 03/02/2020 10:41:38 screening 938956770 Z36.2 O35.8XX0 O43.92 O24.112 Z3A.24 [id number] Franci Wyman [facility] [address],[place] [address] 03/02/2020 09:25:14 03/02/2020 10:41:22 Routine care 043355411 Z34.92 [id number] Franci Wyman [facility] [address],[place] [address] 03/30/2020 12:05:24 03/30/2020 14:10:47 Routine care 770145743 Z34.92 [id number] Bel Dennison MD [facility] [address],[place] [address] 04/11/2020 13:45:33 04/11/2020 14:43:39 Pre-existing type 2 diabetes mellitus in 340324487 O24.119 [id number] Bel Dennison MD [facility] [address],[place] [address] 04/27/2020 11:06:25 04/27/2020 12:38:33 Pre-existing type 2 diabetes mellitus in 904861791 O24.119 [id number] Nhi Reeves [facility] [address],[place] [address] 04/27/2020 11:06:44 04/27/2020 12:43:55 Gestational diabetes mellitus class A2 58331766 O24.414 [id number] Nhi Reeves [facility] [address],[place] [address] 05/01/2020 11:25:52 05/01/2020 12:33:58 Gestational diabetes mellitus class A2 19453687 O24.414 [id number] Dante Aponte MD [facility] [address],[place] [address] 05/01/2020 11:27:17 05/01/2020 12:39:16 Routine care 831180176 Z34.01 [id number] Nhi Reeves [facility] [address],[place] [address] 05/08/2020 11:29:34 05/08/2020 12:15:11 Gestational diabetes mellitus class A2 08034186 O24.414 [id number] Grazyna Rubin [facility] [address],[place] [address] 05/08/2020 11:30:35 05/08/2020 12:42:05 Routine care 600593851 Z34.93 [id number] Nhi Reeves [facility] [address],[place] [address] 05/15/2020 11:29:25 05/15/2020 12:47:10 Gestational diabetes mellitus class A2 27316505 O24.414 [id number] Bel Dennison MD [facility] [address],[place] [address] 05/15/2020 11:30:12 05/15/2020 14:05:54 Pre-existing type 2 diabetes mellitus in 318635868 O24.119 [id number] Nhi Reeves [facility] [address],[place] [address] 05/22/2020 11:36:06 05/24/2020 16:00:09 Gestational diabetes mellitus class A2 36812598 O24.414 [id number] Bel Dennison MD [facility] [address],[place] [address] 05/22/2020 11:37:01 05/23/2020 11:05:33 Pre-existing type 2 diabetes mellitus in 094515337 O24.119 Reduced fe sven movement 733733584 O36.8199 [id number] Bailee Hernandez [facility] [address],[place] [address] 05/22/2020 12:11:38 05/24/2020 11:07:14 condition affecting obstetrical care of mother 219490704 O36.8330 [id number] Dante Aponte MD [facility] [address],[place] [address] 07/06/2020 15:53:54 07/06/2020 16:45:54 Anxiety 26328969 F41.9 care 57547238 8 Z39.0 Patient is a 29-year-ol d female who presents for care. She is 1 mo. vaginal . She has no bleeding. She states that her baby is doing well. She does not contracept ion. She is both bottle and breast feeding. She has not had sex she is having trouble with her mood. She is episodes of anxiety. She is complainin g symptoms of depression such inability to concentrat e, poor sleep, sadness, guilt and shame. We agreed to treat with 50 mg of sertraline . She has been treated for anxiety with sertraline . She will in 1 month. [id number] Dante Aponte MD [facility] [address],[place] [address] 07/27/2021 11:51:04 07/27/2021 12:18:19 Contraception care management 880525206 Z30.9 IUD was inserted without complicati ons. Insertion of intrauterine contraceptive device 31732145 Z30.430 [id number] Dante Aponte MD [facility] [address],[facility] [place] [address] 04/25/2022 10:39:12 04/25/2022 13:43:15 Gynecologic examination 33598376 Z01.419 Annual gynecologi amy exam performed. Patient will come back in a year unless there are new symptoms. Suggest Calcium with Vitamin D if not eating in diet. Patient advised to get annual flu shot. Recommend yearly physicals and preform monthly breast exams. Genetic testing is available for patients with family history of cancer. Engage in safe sexual practices, use condoms. Encouraged to have daily exercise. Avoid tobacco and illicit drugs, moderation of alcohol. If BMI greater than 25 dietary consult advised. If you have any questions please call or email. Marielyero l - done Pap - today [id number] Dante Aponte MD [facility] [address],[facility] [place] [address] 05/19/2022 13:54:03 05/19/2022 15:37:59 Dysplasia of cervix 46920183 N87.9 colposcopi c examinatio n was performed and biopsies were performed. Three biopsies and an ECC were performed and she tolerated it well. [id number] Dante Aponte MD [facility] [address],[place] [address] 09/01/2022 16:33:00 09/02/2022 14:30:51 Vulval irritation 405490540 N90.89 Contracept ion care management 406306761 Z30.9 IUD was inserted without complicati ons. Urinary tr act infectious disease 86191612 N39.0 patient reported urinary symptoms. [id number] BLAKE Vaughn [facility] [address],[place] [address] 03/09/2023 16:32:50 03/10/2023 09:09:00 Contraception care management 098385235 Z30.9 Discussed all BC methods in-depth, r/b/a reviewedco nsidering ParaGuard IUD, if desired RTC with next period for insertione ncouraged to check insurance for coveragesh e would like to start a POP for nowDiscuss ed all control options in great detail. Pt would like to start POP. She is aware of the risks and benefits. She has contraindi cations to use of OCP or other estrogen containing hormonal therapy. Pt will start her pills on the first thursday following the start of her period. She is aware it is not effective for control the first month. She is also aware of the importance of taking at the same time every day. Encouraged use of condoms as the pill does not protect against STD's. Will return in 3 months for med check. Consent was read and signed. Pt verbalized understand ing.rx sentmed check in 3-4 months recommende dBP precaution s discussed, encouraged to f/u with PCP Time spent in visit is a total of 18 mins with at least 50% of visit consisting of counseling and review of plan of care. [id number] JOELLE MCLEAN MD [facility] [address],[place] [address] 05/13/2023 12:18:10 05/14/2023 08:54:53 Vaginitis 21902927 N76.0 - swab sent, follow up on results as available Contracept ion care management 459692118 Z30.9 - unhappy with slynd, would like Paraguard IUD placement- patient to call with next period for placement Recurrent urinary tract infection 584623271 N39.0 - patient to call for urine culture if symptoms recur, currently resolved- consider postcoital or daily ppx if recurrent [id number] Dante Aponte MD [facility] [address],[place] [address] 02/22/2024 10:09:21 02/22/2024 12:07:46 Ectopic 41016507 O00.90 this patient is a 33-year-ol d multiparou s female who presents for follow-up from the emergency department . Patient was seen there for low back and pelvic pain. Patient had urinary tract infection. She was treated. She had an ultrasound of the pelvis. There was suspicion of an interstiti al or cornual . We repeated ultrasound today. Interstiti al/cornual I feel is less likely, however, would like MFM confirmati on. MFM also needs to address her type 1 diabetes. She is currently using metformin and GLP 1 agonist. Needs to transition to insulin. To arrange MFM consult by the end of the week. this problem has marked complexity [id number] [facility] [address],[place] [address] 02/22/2024 10:52:45 02/22/2024 11:37:21 Low back pain in 0038004283 106 O26.899 O36.80X9 Z3A.01 [id number] [facility] [address],[place] [address] 04/07/2024 16:30:33 04/07/2024 17:49:14 screening 237322938 Z36.82 Z3A.12 [id number] Dante Aponte MD [facility] [address],[place] [address] 04/07/2024 16:31:11 04/08/2024 09:39:28 Gestation period, 12 weeks 22326107 Z3A.12 [id number] Dante Aponte MD [facility] [address],[place] [address] 05/05/2024 16:13:19 05/05/2024 17:37:08 [id number] Shahana Hill [facility] [address] [address] 05/05/2024 17:30:23 05/05/2024 17:49:36 [id number] Dante Aponte MD [facility] [address],[place] [address] 06/02/2024 16:32:48 06/02/2024 17:33:53 Routine care 003266938 Z34.01 [id number] Dante Aponte MD [facility] [address],[place] [address] 06/30/2024 13:38:23 06/30/2024 14:25:45 Routine care 764947673 Z34.01 Health Concerns Section Related Observation LastModified by Organization Detai ls LastModified Time None Recorded Concern Status LastModified by Organization Details LastModified Time None Recorded Advance Directives Directive None Recorded Payers Encounter Date Sequence Insurance Name Policy Number Policy Goddard Covered Member ID Goddard Member ID Guarantor Name 05/05/2024 1 [employer] - ALLIED BENEFITS - OPEN ACCESS Yasmeen Ny [id number] Yasmeen Ny 05/05/2024 2 [facility] - DOS ON OR AFTER 20 (MEDICAID REPLACEMENT - HMO) Yasmeen Ny [id number] Yasmeen Ny 05/05/2024 1 [employer] - ALLIED BENEFITS - OPEN ACCESS Yasmeen Ny [id number] Yasmeen Ny 05/05/2024 2 [facility] - DOS ON OR AFTER 20 (MEDICAID REPLACEMENT - HMO) Yasmeen Ny [id number] Yasmeen Ny 06/02/2024 1 [employer] - ALLIED BENEFITS - OPEN ACCESS Yasmeen Ny [id number] Yasmeen Ny 06/02/2024 2 [facility] - DOS ON OR AFTER 20 (MEDICAID REPLACEMENT - HMO) Yasmeen Ny [id number] Yasmeen Ny 06/30/2024 1 [employer] - ALLIED BENEFITS - OPEN ACCESS Yasmeen Ny [id number] Yasmeen Ny 06/30/2024 2 [facility] - DOS ON OR AFTER 20 (MEDICAID REPLACEMENT - HMO) Yasmeen Ny [id number] Yasmeen Ny OBGyn Episode Ob Episode Information Episode Created Date Number of Fetuses Patient Bloodtype Patient rh Status Prepregnancy Weight lbs Domestic Partner Domestic Partner Phone Father Name Flour Worker Status 12/09/19 20 1 A Positive 226 CLOSED Fetus Data First Name Last Name Admitted to NICU Weight (g) Sex Living Outcome Pediatric Complications Fetus ID Race Codes Race Delivery Type 3203.49 35 M true Full Term [id number] Vaginal Delivery Problems Problem Notes [facility] - 03/28 - Recommendations : 162mg ASA daily, echo, A1C q trimester, baseline 24 hr TP, 2x/wk NST and weekly BPP @ 32 wks. 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 6units with snack over 15g carbs. Obesity 08/19/2013 496349880 LD ASA pe r MFM Marginal insertion of umbilical cord 02/03/2020 45556286 growth u/s Dilatation of renal pelvis - bilater al - growth u/s Anxiety 11/09/2019 75832011 Zoloft Pre-existing type 2 diabetes mellitus in 04/27/2020 405002661 DELIVER BY 37- not well controlled. MFM may rec earlier. Large for gestation age fetus potential 89% Rajeev Calculation Initial Rajeev Date Initial Exam Date Initial Exam Provider Initial Ultrasound Date Last Menstrual Period Date Ultra Sound Weeks Gestation 06/17/2020 12/09/2019 11/09/2019 09/11/2019 8 Eighteen To Twenty Week Rajeev Update Ultra Sound Date Fundal Height At Umbil Quickening Date Ultra Sound Latest Weeks Gestation Final Rajeev Confirmed By Final Rajeev Confirmed Date Final Rajeev Date Ultra Sound Latest Days Gestation 0 [email or web address] 12/09/2019 06/21/19 21 0 Pre-raz Flowsheet Flowsheet Date 11/09/2019 Alonso Score Blood Edema Fundus Height Fundus Units Glucose Ketones Leukocytes Nitrite Labor Signs Protein Cervic Dilation Cervic Effacement Cervic Station Type Weight in lbs Pre/Post Dialysis Refused BP Diastolic BP Location Tested BP Systolic BP Type Fetus Heart Rate Present Fetus Movement Comments Flowsheet Date 12/09/2019 Alonso Score Blood Edema Fundus Height Fundus Units Glucose Ketones Leukocytes Nitrite Labor Signs Protein Cervic Dilation Cervic Effacement Cervic Station 12 Type Weight in lbs Pre/Post Dialysis Refused Weight 230.125513867214 BP Diastolic BP Location Tested BP Systolic BP Type 79 116 Fetus Heart Rate Present A 155 Fetus Movement Comments this patient is a 28-year-ol d 1 at 12 weeks gestation who presents for initial care. She is a type 2 diabetic on metformin. She has continued metformin through 1st trimester. She was given in information on checking blood sugars. She will record her blood sugars and report those back to us each week. Flowsheet Date 01/06/2020 Alonso Score Blood Edema Fundus Height Fundus Units Glucose Ketones Leukocytes Nitrite Labor Signs Protein Cervic Dilation Cervic Effacement Cervic Station Type Weight in lbs Pre/Post Dialysis Refused BP Diastolic BP Location Tested BP Systolic BP Type Fetus Heart Rate Present Fetus Movement Comments Flowsheet Date 01/06/2020 Alonso Score Blood Edema Fundus Height Fundus Units Glucose Ketones Leukocytes Nitrite Labor Signs Protein Cervic Dilation Cervic Effacement Cervic Station 16 trace Type Weight in lbs Pre/Post Dialysis Refused Weight 237.023930477460 BP Diastolic BP Location Tested BP Systolic BP Type 72 R arm 142 sitting Fetus Heart Rate Present A 145 Fetus Movement A Yes Comments +2-Glucose, Poorly controlle d blood sugars, to start insulin, 5 units NPH q.h.s.. Flowsheet Date 02/03/2020 Alonso Score Blood Edema Fundus Height Fundus Units Glucose Ketones Leukocytes Nitrite Labor Signs Protein Cervic Dilation Cervic Effacement Cervic Station Type Weight in lbs Pre/Post Dialysis Refused BP Diastolic BP Location Tested BP Systolic BP Type Fetus Heart Rate Present Fetus Movement Comments Flowsheet Date 02/03/2020 Alonso Score Blood Edema Fundus Height Fundus Units Glucose Ketones Leukocytes Nitrite Labor Signs Protein Cervic Dilation Cervic Effacement Cervic Station neg none trace Type Weight in lbs Pre/Post Dialysis Refused Weight 242.356956090547 BP Diastolic BP Location Tested BP Systolic BP Type 72 110 Fetus Heart Rate Present Fetus Movement A Yes Comments pt did not bring blood sugar s, will call in with them marginal cord insert and bilateral pyelectasis (male), anatomy incomplete Flowsheet Date 02/24/2020 Alonso Score Blood Edema Fundus Height Fundus Units Glucose Ketones Leukocytes Nitrite Labor Signs Protein Cervic Dilation Cervic Effacement Cervic Station 23 trace Type Weight in lbs Pre/Post Dialysis Refused Weight 249.359223743183 BP Diastolic BP Location Tested BP Systolic BP Type 77 R arm 118 sitting Fetus Heart Rate Present A 145 Fetus Movement A Yes Comments headache, rxed fioricet, exc ellent blood sugars, or anxiety, to treat with Zoloft initially the 50 mg p.o. q.day Flowsheet Date 03/02/2020 Alonso Score Blood Edema Fundus Height Fundus Units Glucose Ketones Leukocytes Nitrite Labor Signs Protein Cervic Dilation Cervic Effacement Cervic Station Type Weight in lbs Pre/Post Dialysis Refused BP Diastolic BP Location Tested BP Systolic BP Type Fetus Heart Rate Present Fetus Movement Comments Flowsheet Date 03/02/2020 Alonso Score Blood Edema Fundus Height Fundus Units Glucose Ketones Leukocytes Nitrite Labor Signs Protein Cervic Dilation Cervic Effacement Cervic Station neg none trace Type Weight in lbs Pre/Post Dialysis Refused Weight 249.492211749640 BP Diastolic BP Location Tested BP Systolic BP Type 79 122 Fetus Heart Rate Present Fetus Movement A Yes Comments reviewed bs log increase nph to 15 at hs and add 5 units in am, efw 71%, bilateral pyelectasis, f/u 4 weeks, rn to call on thursday for blood sugars, fioricet rx #10 for headaches Flowsheet Date 03/30/2020 Alonso Score Blood Edema Fundus Height Fundus Units Glucose Ketones Leukocytes Nitrite Labor Signs Protein Cervic Dilation Cervic Effacement Cervic Station neg none trace Type Weight in lbs Pre/Post Dialysis Refused Weight 256.946964932466 BP Diastolic BP Location Tested BP Systolic BP Type 72 123 Fetus Heart Rate Present A 157 Fetus Movement A Yes Comments ssm monitoring blood sugars, precautions reviewed, start nst at 32 weeks Flowsheet Date 04/11/2020 Alonso Score Blood Edema Fundus Height Fundus Units Glucose Ketones Leukocytes Nitrite Labor Signs Protein Cervic Dilation Cervic Effacement Cervic Station neg none 39 trace Type Weight in lbs Pre/Post Dialysis Refused Weight 259.666134313796 BP Diastolic BP Location Tested BP Systolic BP Type 80 125 Fetus Heart Rate Present A 145 Fetus Movement A Yes Comments 2+glucose. Ran out of insuli n for 3 days. Back on now. Sugars per MFM. On Nph and lispro . NSTs scheduled here. Encouraged Tdap and flu, script given Flowsheet Date 04/27/2020 Alonso Score Blood Edema Fundus Height Fundus Units Glucose Ketones Leukocytes Nitrite Labor Signs Protein Cervic Dilation Cervic Effacement Cervic Station Type Weight in lbs Pre/Post Dialysis Refused BP Diastolic BP Location Tested BP Systolic BP Type Fetus Heart Rate Present Fetus Movement Comments Flowsheet Date 04/27/2020 Alonso Score Blood Edema Fundus Height Fundus Units Glucose Ketones Leukocytes Nitrite Labor Signs Protein Cervic Dilation Cervic Effacement Cervic Station neg none 40 trace Type Weight in lbs Pre/Post Dialysis Refused Weight 263.467710266942 BP Diastolic BP Location Tested BP Systolic BP Type 84 122 Fetus Heart Rate Present A 140 Fetus Movement A Yes Comments Doing well. Insuliln per MFM . Seeing them weekly on Thu. Got tdap and flu shots. NST reactive. Precautions given. Flowsheet Date 05/01/2020 Alonso Score Blood Edema Fundus Height Fundus Units Glucose Ketones Leukocytes Nitrite Labor Signs Protein Cervic Dilation Cervic Effacement Cervic Station Type Weight in lbs Pre/Post Dialysis Refused BP Diastolic BP Location Tested BP Systolic BP Type Fetus Heart Rate Present Fetus Movement Comments Flowsheet Date 05/01/2020 Alonso Score Blood Edema Fundus Height Fundus Units Glucose Ketones Leukocytes Nitrite Labor Signs Protein Cervic Dilation Cervic Effacement Cervic Station Type Weight in lbs Pre/Post Dialysis Refused Weight 268.067510983488 BP Diastolic BP Location Tested BP Systolic BP Type 82 R arm 134 sitting Fetus Heart Rate Present Fetus Movement A Yes Comments patient is a 29-year-old gra doroteo 1 at 32 weeks and 6 days gestation with gestational diabetes, anxiety, rash that has resolved, and marginal cord insertion. She is primarily managed Maternal- Medicine. She is getting biweekly NSTs and growth ultrasounds single Maternal- Medicine in 3 days. Flowsheet Date 05/08/2020 Alonso Score Blood Edema Fundus Height Fundus Units Glucose Ketones Leukocytes Nitrite Labor Signs Protein Cervic Dilation Cervic Effacement Cervic Station Type Weight in lbs Pre/Post Dialysis Refused BP Diastolic BP Location Tested BP Systolic BP Type Fetus Heart Rate Present Fetus Movement Comments Flowsheet Date 05/08/2020 Alonso Score Blood Edema Fundus Height Fundus Units Glucose Ketones Leukocytes Nitrite Labor Signs Protein Cervic Dilation Cervic Effacement Cervic Station 36 neg Type Weight in lbs Pre/Post Dialysis Refused Weight 266.326817843742 BP Diastolic BP Location Tested BP Systolic BP Type 77 136 Fetus Heart Rate Present Fetus Movement A Yes Comments Pt has seen mfm for bs and i nsulin monitoring. States her levels have been good. She has an appt with MFM tomorrow. No pain or contractions. Good movement. Flu and tdap. Encouraged to call and schedule pre admit. Pt states growth u/s is next week. Flowsheet Date 05/15/2020 Alonso Score Blood Edema Fundus Height Fundus Units Glucose Ketones Leukocytes Nitrite Labor Signs Protein Cervic Dilation Cervic Effacement Cervic Station Type Weight in lbs Pre/Post Dialysis Refused BP Diastolic BP Location Tested BP Systolic BP Type Fetus Heart Rate Present Fetus Movement Comments Flowsheet Date 05/15/2020 Alonso Score Blood Edema Fundus Height Fundus Units Glucose Ketones Leukocytes Nitrite Labor Signs Protein Cervic Dilation Cervic Effacement Cervic Station neg none 37 1+ Type Weight in lbs Pre/Post Dialysis Refused Weight 269.855155448332 BP Diastolic BP Location Tested BP Systolic BP Type 85 128 Fetus Heart Rate Present A 145 Fetus Movement A Yes Comments 3+glucose- continuous glucos e monitoring shows spike to about 190 after breakfast of oatmeal and empanadas. Overall not well controlled as far as we know, MFM managing. Delivery by 38-39 weeks, MFM has indicated maybe earlier. Will contact them re delivery recommendations so induction can be scheduled. GBS next week since early delivery. NSt reactive. Discussed POC. Discussed importance of good glucose control now until delivery. Flowsheet Date 05/22/2020 Alonso Score Blood Edema Fundus Height Fundus Units Glucose Ketones Leukocytes Nitrite Labor Signs Protein Cervic Dilation Cervic Effacement Cervic Station Type Weight in lbs Pre/Post Dialysis Refused BP Diastolic BP Location Tested BP Systolic BP Type Fetus Heart Rate Present Fetus Movement Comments Flowsheet Date 05/22/2020 Alonso Score Blood Edema Fundus Height Fundus Units Glucose Ketones Leukocytes Nitrite Labor Signs Protein Cervic Dilation Cervic Effacement Cervic Station Type Weight in lbs Pre/Post Dialysis Refused BP Diastolic BP Location Tested BP Systolic BP Type Fetus Heart Rate Present Fetus Movement Comments Flowsheet Date 05/22/2020 Alonso Score Blood Edema Fundus Height Fundus Units Glucose Ketones Leukocytes Nitrite Labor Signs Protein Cervic Dilation Cervic Effacement Cervic Station neg none trace 0cm 30% -3 Type Weight in lbs Pre/Post Dialysis Refused Weight 272.123674627538 BP Diastolic BP Location Tested BP Systolic BP Type 77 122 Fetus Heart Rate Present A 140 Fetus Movement A Yes Comments Yasmeen complains of decrease d FM over the last week. SHe has been to triage for this twice in the last week. SHe states some days she doesn't feel any movement until the evening. Also her sugars are more labile- sometimes high, but also more lows. Last night she states she was in the 50s for several hours despite snacking. NSt today with accels and good variability, but two decels x30 sec each to 20bpm below baseline, spontaneous. BPP in office 6/8. To [facility] for extended monitoring. I discussed her case with Dr Baez [facility]. SHe recommends to deliver at 37 weeks if extended monitoring ok. If any further significant decels or BPP less than 6/8, then immediate delivery. Pt sent to [facility]. GBS done today. Cervix closed but soft. Discussed possible need for induction, discussed cervidil, poss long induction. Otherwise will schedule for 37 weeks. Menstrual History Last Menstrual Date Menses Monthly On Bcp Conception Prior Menses Frequency Hcg Plus Date Menarche Onset Age 0509/11/2019 Genetic Screening And Infection History Question Response Note Mental Retardation/Autism false Patient's Age Will Be 35 Years Or Older At Estim ated Date of Delivery false Thalassemia (Georgian, Scottish, Mediterranean, Or Background): MCV < 80 false Neural Tube Defect (Meningomyelocele, Spina Bifi da, Or Anencephaly) false Congenital Heart Defect false Down Syndrome false Tyrell-Sachs (eg, Anabaptist, Cajun, Ugandan-Wyarno) f alse Kodak Disease false Sickle Cell Disease Or Trait () false Hemophilia Or Other Blood Disorders false Muscular Dystrophy false Cystic Fibrosis false Wayne's Chorea false Intellectual Disability/Autism false If Yes, Was Person Tested For Fragile X? false Other Inherited Genetic Or Chromosomal Disorder false Maternal Metabolic Disorder (eg, Type 1 Diabetes , PKU) false Patient Or Baby's Father Had A Child With Defects Not Listed Above false Recurrent Loss, Or A Stillbirth false Medications (including Suppl ements, Vitamins, Herbs, OTC Drugs), Illicit/Recreational Drugs, Alcohol false If Yes, Agent(s) And Strength/Dosage false Any Other Genetic History false Live With Someone With TB Or Exposed To TB false Patient Or Partner Has History Of Genital Herpes false Rash Or Viral Illness Since Last Menstrual Perio d false History Of STD, Gonorrhea, Chlamydia, HPV, Syphi lis false Other Infection History false History of HIV false History of Hepatitis false Prior GBS-infected child false Hemoglobinopathy Or Carrier false Other Structural Defect false Recent Travel History Outside of Country false Delivery Information Delivery Date Delivery Type Labor Anesthesia Weeks Gestation Incision Type Labor Labor Length Hrs Delivered By Post Complications Tubal Sterilization Discharge Date Comments 1 Induce d Regional-Ep idural 36.2 Dante Aponte MD +GBS & Type 2 DM Discharge Information Feeding Method Contraceptive Method Maternal HG B and HCT Levels Ob Episode Information Episode Created Date Number of Fetuses Patient Bloodtype Patient rh Status Prepregnancy Weight lbs Domestic Partner Domestic Partner Phone Father Name Flour Worker Status 04/07/20 24 1 A Positive OPEN Fetus Data First Name Last Name Admitted to NICU Weight (g) Sex Living Outcome Pediatric Complications Fetus ID Race Codes Race Delivery Type [id number] Problems Problem Notes Problem Name Start Date End Date Resolution Snomed Code Not e Type 2 diabetes mellitus [id number] managed by [facility] 06/28 US and office visit Rajeev Calculation Initial Rajeev Date Initial Exam Date Initial Exam Provider Initial Ultrasound Date Last Menstrual Period Date Ultra Sound Weeks Gestation 04/07/2024 03/15/2024 01/13/2024 8 Eighteen To Twenty Week Rajeev Update Ultra Sound Date Fundal Height At Umbil Quickening Date Ultra Sound Latest Weeks Gestation Final Rajeev Confirmed By Final Rajeev Confirmed Date Final Rajeev Date Ultra Sound Latest Days Gestation 0 [email or web address] 04/07/2024 10/20/19 25 0 Pre- Flowsheet Flowsheet Date 04/07/2024 Alonso Score Blood Edema Fundus Height Fundus Units Glucose Ketones Leukocytes Nitrite Labor Signs Protein Cervic Dilation Cervic Effacement Cervic Station Type Weight in lbs Pre/Post Dialysis Refused Weight 209.454581673550 BP Diastolic BP Location Tested BP Systolic BP Type 80 R arm 129 sitting Fetus Heart Rate Present A 145 Fetus Movement A No Comments this patient is a 33-year-ol d multiparous female at 12 weeks' gestation who presents for initial care. She has a history of term vaginal births. Her medical, surgical, obstetric history is unremarkable. She is vaccinated. She was given precautions recommendations for . We talked about vaccines in . Talked about care in detail. She is having genetic testing. She had a normal 12 week ultrasound. To begin routine care. Flowsheet Date 05/05/2024 Alonso Score Blood Edema Fundus Height Fundus Units Glucose Ketones Leukocytes Nitrite Labor Signs Protein Cervic Dilation Cervic Effacement Cervic Station Type Weight in lbs Pre/Post Dialysis Refused 217.270344120929 BP Diastolic BP Location Tested BP Systolic BP Type 70 L arm 114 sitting Fetus Heart Rate Present A 145 Fetus Movement A No Comments no complaints, no problems, routine care, no contractions, no vaginal bleeding, no loss of fluid, no cramping Flowsheet Date 05/05/2024 Alonso Score Blood Edema Fundus Height Fundus Units Glucose Ketones Leukocytes Nitrite Labor Signs Protein Cervic Dilation Cervic Effacement Cervic Station Type Weight in lbs Pre/Post Dialysis Refused BP Diastolic BP Location Tested BP Systolic BP Type Fetus Heart Rate Present Fetus Movement Comments Flowsheet Date 06/02/2024 Alonso Score Blood Edema Fundus Height Fundus Units Glucose Ketones Leukocytes Nitrite Labor Signs Protein Cervic Dilation Cervic Effacement Cervic Station Type Weight in lbs Pre/Post Dialysis Refused BP Diastolic BP Location Tested BP Systolic BP Type Fetus Heart Rate Present Fetus Movement Comments Flowsheet Date 06/02/2024 Alonso Score Blood Edema Fundus Height Fundus Units Glucose Ketones Leukocytes Nitrite Labor Signs Protein Cervic Dilation Cervic Effacement Cervic Station Type Weight in lbs Pre/Post Dialysis Refused 222.30598055488 BP Diastolic BP Location Tested BP Systolic BP Type 78 L arm 113 sitting Fetus Heart Rate Present A 144 Present Fetus Movement A Yes Comments no complaints, no problems, routine care, no contractions, no vaginal bleeding, no loss of fluid, no cramping Flowsheet Date 06/30/2024 Alonso Score Blood Edema Fundus Height Fundus Units Glucose Ketones Leukocytes Nitrite Labor Signs Protein Cervic Dilation Cervic Effacement Cervic Station 145 cm Type Weight in lbs Pre/Post Dialysis Refused 229.898227803641 BP Diastolic BP Location Tested BP Systolic BP Type 71 L arm 110 sitting Fetus Heart Rate Present A 150 Fetus Movement A Yes Comments no complaints, no problems, routine care, no contractions, no vaginal bleeding, no loss of fluid, no cramping Menstrual History Last Menstrual Date Menses Monthly On Bcp Conception Prior Menses Frequency Hcg Plus Date Menarche Onset Age 0901/13/2024 true Delivery Information Delivery Date Delivery Type Labor Anesthesia Weeks Gestation Incision Type Labor Labor Length Hrs Delivered By Post Complications Tubal Sterilization Discharge Date Comments Discharge Information Feeding Method Contraceptive Method Maternal HG B and HCT Levels
--- OUTSIDE RECORDS SUMMARY | 2024-07-04 19:09 | XMS_ITS | Encounter Summary ---
Author Organization [facility] Address [address] [place] [address] Care Team Providers Care Web Production Manager Name Role Phone Chuck Nelson MAINTENANCE PORTER-TOY CONSULTANT Primary Care Pro vider Reason for Visit * Reason Onset Date Comments MEDICATION REFILL 03/08/2024 Encounter Details Date Type Department Care Team (Late st Contact Info) Description 03/08/2024 Refill [facility] MATERNAL/ EVALUATION UNIT [address] [place] [id number] Eduar Hernandez MD [address] [facility] [address] [place] [address] MEDICATION REFILL Social History Tobacco Use Types [...] and heating? Not hard at all 02/24/2024 [facility] [place] of Occupat ional Health - Occupational Stress [...] things needed for daily living? No 02/24/2024 [place] Depression Scale Answer Date Recorded [place] Depression Scale Total 1 03/01/2024 The thought [...] time in the past 12 m [facility], were you homeless or living in a half-way (including now)? Yes 02/24/2024 Estimated Date of [...] Info) Description 07/12/2024 2:30 PM CDT Appointment [facility] MATERNAL/ EVALUATION UNIT [address] [place] [address] 07/20/2024 1:45 PM CDT Appointment [facility] - Cardiology [address] [place] [phone] Moe Blackwell MD [address] [place] [phone] 07/20/2024 1:45 PM CDT Appointment [facility] - Cardiology [address] [place] [phone] Sandy Perez MD [address] [place] [address] 07/26/2024 2:15 PM CDT Appointment [facility] MATERNAL/ EVALUATION UNIT [address] [facility] [place] [address] documented as of this encounter Visit Diagnoses Diagnosis Pre-existing type 2 diabetes mellitus during , antepartum (HCC) Type 2 diabetes mellitus with stage 1 chronic kidney disease, with long-term current use of insulin (HCC) documented in this encounter Care Teams Web Production Manager Relationship Specialty Start Date End Date Chuck Nelson APRN-EMILY [address] [place] [phone] PCP - General Nurse Practitioner 08/25/22 documented as of this encounter
[2024-07-04] MEDS: NITROFURANTOIN MONOHYD MACROCR 100 MG CAP PO (19:20)
--- NOTE | 2024-07-04 19:34 | PC.NURSE ---
RN called and reported that pt is a presents to L&D with complaints of sharp lower right quadrant pain that radiants to lower right back. Pt states that since approx 1700 today, it has started to burn upon urination. Pt has a hx of GDM2, pt latest blood sugar was 109 per hospital glucometer. Pt denies any LOF or vaginal bleeding. Pt denies having sex within the past 24 hours and has positive movement. RN reported FHT's, absence of contractions, as well as results of UA. Orders received to discharge pt home with macrobid rx.
--- NOTE | 2024-07-04 19:44 | PC.NURSE ---
Pt on monitor from [id number] FHT baseline noted to be 145 with moderate variability and 10x10 accelerations and a variable noted. No contractions noted per toco, pt, or palpation. Uterine irritability noted.
--- NOTE | 2024-07-27 09:46 | PM.OBTRLD ---
OB - Triage/Final Diagnosis Visit Information Comments/Additional reasons for admission: I have assessed the risk for this patient, Yasmeen Ny, and determined that she would benefit from observation care. Evaluation Laboratory results: Laboratory Tests 07/04/24 07/04/24 18:16 18:49 POC Capillary Glucose 109 H Urine Color Yellow Urine Appearance Clear Urine pH 6.5 Ur Specific [place] 1.003 Urine Protein Negative Urine Glucose (UA) Negative Urine Ketones Negative Ur Blood (Man) 1+ H Urine Nitrate Negative Urine Bilirubin Negative Urine Urobilinogen 0.2 Add Ur Microanalysis Reviewed Leukocyte Esterase Rfl 3+ H Urine RBC 0-2 Urine WBC 51-100 H Ur Squamous Epith Cells None seen Urine Bacteria Rare Urine Casts 0-2 Final Diagnosis (1) Pelvic pain: Code(s): R10.2 - Pelvic and perineal pain Status: Acute
== END 2024-07-04 19:21 | disposition home or self-care (01) ==
PROVIDERS: Admitting Provider Obstetrics & Gynecology; Visit Provider Obstetrics & Gynecology
DX: O26.892 Other specified pregnancy related conditions, second trimester (principal); R10.2 Pelvic and perineal pain; Z3A.24 24 weeks gestation of pregnancy
CPT/HCPCS: 81001; 82948; 87077; 87086; 87186; A9270; G0378; G0379

== ENCOUNTER 2024-08-08 02:01 | Observation (INO) | payer OTHER, SELFPAY ==
--- OUTSIDE RECORDS SUMMARY | 2024-08-08 02:10 | XMS_ITS | Clinical Summary ---
Author Organization [facility] Address [address] [address] Care Team Providers Care It Security Manager Name Role Phone Chuck Nelson MANUFACTURING OPERATOR-TANK TRUCK OPERATOR Primary Care Pro vider Source Comments [facility],non-owned Affiliates and Associated Physician Practices is amultiple site organization consisting of ambulatory clinics and hospital sitesin [place], [place], [place] and [place]. This disclosure is being madepursuant to the Care Everywhere program and may not contain all information available regarding this patient. Last updated 18.[facility] [employer] Allergies Active Allergy Reactions Criticality Noted Date Comments Lisinopril Rash Medium 03/19/2020 Shellfish Allergy Rash Medium 08/25/2022 Medications * Be aware that medications may not be up to date on this document. Alwaysverify current medications with the patient. escitalopram (Lexapro) 20 MG tablet Take 1 (one) tablet by mouth once daily Active Blood Glucose Monitoring Suppl (OneTouch Verio) w/Device KITIndications :Pre-existing type 2 diabetes mellitus during , antepartum (HCC),Type 2 diabetes mellitus with stage 1 chronic kidney disease, with long-term current use of insulin ([facility]) Use 1 Each as directed 1 kit 024 Active blood glucose (OneTouch Verio) test stripIndicatio ns:Pre-existin g type 2 diabetes mellitus during , antepartum (HCC),Type 2 diabetes mellitus with stage 1 chronic kidney disease, with long-term current use of insulin ([facility]) To monitor blood glucose (sugar) 4x daily- fasting and 1 hour after meals 100 strip 5 Active Lancets (ONETOUCH DELICA PLUS 33G EXTRA FINE LANCET)Indicat ions:Pre-exist ing type 2 diabetes mellitus during , antepartum ([facility]),Type 2 diabetes mellitus with stage 1 chronic kidney disease, with long-term current use of insulin ([facility]) To monitor blood glucose (sugar) 4x daily- fasting and 1 hour after meals 100 Each 5 Active Glucagon (Baqsimi One Pack) 3 MG/DOSE POWD Irma 1 Each into the nose as needed 1 Each Active Additional Information Patient not taking.Reason: Other, Reported on 06/08/2024 Continuous Glucose Sensor (Dexcom G7 Sensor) MISCIndication s:Pre-existing type 2 diabetes mellitus during , antepartum ([facility]) Use 1 Each Continuous for 10 days 3 Each 5 024 2024 Active triamcinolone acetonide (Kenalog) 0.1 % cream [...] DAILY Active aspirin EC (Ecotrin) 81 MG tabletIndicati ons:Pre-existi ng type 2 diabetes mellitus during , antepartum ([facility]) Take 2 (two) tablets by mouth once daily 100 tablet 1 Active Insulin Pen Needle (TechLite Pen [place]) 32G X 4 MM MISCIndication s:Pre-existing type 2 diabetes mellitus during , antepartum ([facility]) Use 1 Each 5 times daily 150 Each 5 Active insulin lispro (HumaLOG;ADMel og) 100 UNIT/ML penIndications :Type 2 diabetes mellitus with hyperglycemia, unspecified whether long term care pharmacist insulin use ([facility]) Inject 10u before small meals (<30g), 16 units before medium meals (30-45g), and 20u before large meals (>60g). Inject 6u with snacks. Inject 0-15 minutes before meals. Increase dose as directed during . Max total daily dose = 100 units. 30 mL 5 025 Active Vit-Fe Fumarate-FA (M-Raz Plus) 27-1 MG TABS Active insulin glargine (Lantus/Semgle e) 100 units/mL penIndications :Type 2 diabetes mellitus with hyperglycemia, unspecified whether long term care pharmacist insulin use (HCC) Inject 22 units in the morning and 22 units at bedtime. Take dosages approximately 12 hours apart. Increase dose as directed due to increasing insulin requirements during . Max total daily dose = 50u 15 mL Active magnesium oxide (Mag-Ox) 400 MG tablet Take 1 (one) tablet by mouth once daily 30 tablet 2 Active metFORMIN (GLUCOPHAGE) 1000 MG tabletIndicati ons:Type 2 Diabetes Mellitus Take 2 (two) tablets by mouth 2 times daily with morning and evening meal Reasons: Type 2 Diabetes 2024 Discontinued(L ist Clean-Up) Vit-Fe Fumarate-FA ( ONE DAILY PO) 2024 Discontinued(L ist Clean-Up) insulin glargine (Lantus/Semgle e) 100 units/mL penIndications :Type 2 diabetes mellitus with hyperglycemia, unspecified whether long term care pharmacist insulin use (HCC) Inject 14 units in the morning and 14 units at bedtime. Take dosages approximately 12 hours apart. Increase dose as directed due to increasing insulin requirements during . Max total daily dose = 50u 15 mL 025 2024 Discontinued(R eorder) insulin lispro (HumaLOG;ADMel og) 100 UNIT/ML penIndications :Type 2 diabetes mellitus with hyperglycemia, unspecified whether long term care pharmacist insulin use (HCC) Inject 6u before small meals (<30g), 10 units before medium meals (30-45g), and 14u before large meals (>60g). Inject 0-15 minutes before meals. Increase dose as directed during . Max total daily dose = 50 units. 15 mL 5 025 2024 Discontinued fluconazole (Diflucan) 150 MG tabletIndicati ons:Vaginitis affecting in second trimester, antepartum (HCC) Take 1 (one) tablet by mouth once daily 1 tablet 025 2024 Discontinued(L ist Clean-Up) insulin glargine (Lantus/Semgle e) 100 units/mL penIndications :Type 2 diabetes mellitus with hyperglycemia, unspecified whether detention insulin use (HCC) Inject 16 units in the morning and 16 units at bedtime. Take dosages approximately 12 hours apart. Increase dose as directed due to increasing insulin requirements during . Max total daily dose = 50u 15 mL 5 025 2024 Discontinued nitrofurantoin monohyd macro crystals (Macrobid) 100 MG capsule TAKE 1 CAPSULE BY MOUTH EVERY 12 HOURS FOR 7 DAYS 2024 Discontinued(L ist Clean-Up) amoxicillin (Amoxil) 500 MG capsule Take 1 capsule every 8 hours by oral route as directed for 5 days. 025 2024 Discontinued(L ist Clean-Up) insulin glargine (Lantus/Semgle e) 100 units/mL penIndications :Type 2 diabetes mellitus with hyperglycemia, unspecified whether long term care pharmacist insulin use (HCC) Inject 18 units in the morning and 18 units at bedtime. Take dosages approximately 12 hours apart. Increase dose as directed due to increasing insulin requirements during . Max total daily dose = 50u 15 mL 5 025 2024 Discontinued(R eorder) Active Problems Patient Care Coordination No te Formatting of this note migh t be different from the original. [employer] form completed. Diapers given. 07/26/2024 (out of 3T folders- will need at next appt). Problem Noted Date Diagnosed Date Carrier of group B Streptococcus 07/26/2024 Overview (07/26/2024): + GBS in urine Obesity affecting 04/26/2024 Cholelithiasis without obstruction 04/20/2023 Type 2 diabetes mellitus 08/25/2022 Frequent headaches 05/02/2020 Overview (05/02/2020): Noticing headaches first thing in the morning for the past 1.5 weeks. Preeclampsia work up negative on 04/30: PCR: 0.18, AST: 25, ALT: 35, creatinine: 0.50, platelets: 348K. Assessment & Plan (05/16/2020 12:49 PM OUTDOOR EMERGENCY CARE TECHNICIAN): Resolution of headaches continues. Preeclampsia work up [...] triage. Assessment & Plan (05/09/2020 2:03 PM OUTDOOR EMERGENCY CARE TECHNICIAN): Resolution of headaches this week. Preeclampsia work up negative on 04/30: PCR: 0.18, AST: 25, ALT: 35, creatinine: 0.50, platelets: 348K. Normotensive today. Asymptomatic for preeclampsia. MFM Plan: 1. Encouraged to continue to monitor for preeclampsia symptoms and if headache not relieved with interventions, to always alert primary OB or seek OB evaluation at OB triage. 2. Riboflavin instructions given to order picker/assembler OTC.. Assessment & Plan (05/02/2020 11:59 AM OUTDOOR EMERGENCY CARE TECHNICIAN): Noticing headaches first thing in the morning [...] 5.8 Assessment & Plan (05/23/2020 12:34 PM OUTDOOR EMERGENCY CARE TECHNICIAN): 24 hour urine/CMP: 04/30: PCR: 0.18, AST: [...] office who agreed. Recommendation given to primary Supervisor [employer] and patient sent to [facility] today for delivery, cephalic on quick look [...] . Assessment & Plan (05/16/2020 1:23 PM OUTDOOR EMERGENCY CARE TECHNICIAN): 24 hour urine/CMP: 04/30: PCR: 0.18, AST: [...] delivery planning. 9. Sent to L/D at [facility] for continuous monitoring. Report called to both L/D and primary Supervisor Keymod[employer]'s office regarding office visit today and decreased [...] reduction. Assessment & Plan (05/09/2020 12:01 PM OUTDOOR EMERGENCY CARE TECHNICIAN): 24 hour urine/CMP: 04/30: PCR: 0.18, AST: 25, ALT: 35, creatinine: 0.50. hemoglobin A1c: 5.8%, 04/10; Previous A1c: 6% at 12 weeks. Reports normal dilated eye exam, records requested multiple times and never received. echo: completed and appropriate. Serial giyevq85/28: EFW: 87% and 2028grams, AC: 95%. Anatomy [...] monitor. Assessment & Plan (05/02/2020 12:25 PM OUTDOOR EMERGENCY CARE TECHNICIAN): 24 hour urine/CMP: 04/30: PCR: 0.18, AST: [...] today. Assessment & Plan (04/25/2020 5:32 PM OUTDOOR EMERGENCY CARE TECHNICIAN): 24 hour urine/CMP: pending hemoglobin A1c: 5.8%, [...] she is scheduled to do with primary Supervisor Keymod[employer] Assembly again this Thursday. 8. Reviewed importance of [...] lab. Assessment & Plan (04/11/2020 11:49 AM OUTDOOR EMERGENCY CARE TECHNICIAN): 24 hour urine/CMP: pending, has to re-do [...] she is scheduled to do with primary Supervisor [employer]. 9. Reviewed importance of twice daily kick [...] exam. Assessment & Plan (03/28/2020 12:49 PM OUTDOOR EMERGENCY CARE TECHNICIAN): 24 hour urine/CMP/hemoglobin A1c: plans to do [...] she becomes hypoglycemic. 7. Reviewed after hours [facility] triage number to call with any concerns. [...] Overview (04/05/2024): Insulin resistance;Recorded Elsewhere: No Location: [facility] Source: EHR Chronic: N Practice ID: [id number] [...] Encounters Date Type Department Care Team Description 08/03/2024 12:56 PM CDT - 08/03/2024 11:59 PM CDT Hospital Encounter [facility] [address] [place] [address] Dave Sevilla MD Discharge Disposition: Home or Self Care 08/03/2024 12:56 PM CDT - 08/03/2024 11:59 PM CDT Hospital Encounter [facility] [address] [place] [address] Dave Sevilla MD Discharge Disposition: Home or Self Care 08/03/2024 Travel 08/01/2024 Orders Only [facility] [address] [place] [address] Elaine Sorenson RN 07/29/2024 Telephone [facility] [address] [place] [address] Cara Dent 07/26/2024 1:58 PM CDT - 07/26/2024 11:59 PM CDT Hospital Encounter [facility] [address] [place] [address] Eduar Hernandez MD Mostello, Dorothea Jean, MD Discharge Disposition: Home or Self Care 07/26/2024 1:58 PM CDT - 07/26/2024 11:59 PM CDT Hospital Encounter [facility] [address] [place] [address] Eduar Hernandez MD Mostello, Dorothea Jean, MD Discharge Disposition: Home or Self Care 07/26/2024 1:58 PM CDT - 07/26/2024 11:59 PM CDT Hospital Encounter [facility] [address] [place] [address] Eduar Hernandez MD Discharge Disposition: Home or Self Care 07/26/2024 Travel 07/20/2024 1:42 PM CDT - 07/20/2024 11:59 PM CDT Hospital Encounter [facility] - [facility]iology [facility] [place] [address] Moe Blackwell MD Discharge Disposition: Home or Self Care 07/20/2024 1:10 PM CDT - 07/20/2024 1:41 PM CDT Hospital Encounter [facility] - Cardiology [address] [place] [id number] Sandy Perez MD Discharge Disposition: Home or Self Care 07/12/2024 1:53 PM CDT - 07/12/2024 11:59 PM CDT Hospital Encounter [facility] [address] [place] [address] Luana Plummer MD Discharge Disposition: Home or Self Care 07/12/2024 1:53 PM CDT - 07/12/2024 11:59 PM CDT Hospital Encounter [facility] [address] [place] [address] Luana Plummer MD Discharge Disposition: Home or Self Care 07/12/2024 Travel 06/28/2024 2:14 PM CDT - 06/28/2024 11:59 PM CDT Hospital Encounter [facility] [address] [place] [address] Eduar Hernandez MD Chavan, Niraj R, MD Discharge Disposition: Home or Self Care 06/28/2024 2:14 PM CDT - 06/28/2024 11:59 PM CDT Hospital Encounter [facility] [address] [place] [address] Eduar Hernandez MD Chavan, Niraj R, MD Discharge Disposition: Home or Self Care 06/28/2024 2:14 PM CDT Hospital Encounter [facility] [address] [place] [address] Eduar Hernandez MD Discharge Disposition: Home or Self Care 06/28/2024 Travel 06/15/2024 12:34 PM OUTDOOR EMERGENCY CARE TECHNICIAN - 06/15/2024 11:59 PM OUTDOOR EMERGENCY CARE TECHNICIAN Hospital Encounter [facility] [address] [place] [address] Nhi Walker APRN-CNP Discharge Disposition: Home or Self Care 06/15/2024 12:34 PM OUTDOOR EMERGENCY CARE TECHNICIAN - 06/15/2024 11:59 PM OUTDOOR EMERGENCY CARE TECHNICIAN Hospital Encounter [facility] [address] [place] [address] Nhi Walker APRN-CNP Discharge Disposition: Home or Self Care 06/15/2024 Travel 06/14/2024 Telephone [facility] [address] [place] [address] Elizabeth Chandler Scheduling 06/08/2024 12:53 PM OUTDOOR EMERGENCY CARE TECHNICIAN - 06/08/2024 11:59 PM OUTDOOR EMERGENCY CARE TECHNICIAN Hospital Encounter [facility] [address] [place] [address] Dave Sevilla MD Discharge Disposition: Home or Self Care 06/08/2024 12:53 PM OUTDOOR EMERGENCY CARE TECHNICIAN - 06/08/2024 11:59 PM OUTDOOR EMERGENCY CARE TECHNICIAN Hospital Encounter [facility] [address] [place] [address] Dave Sevilla MD Discharge Disposition: Home or Self Care 06/08/2024 12:30 PM OUTDOOR EMERGENCY CARE TECHNICIAN Procedure visit [facility] [address] [place] [address] [address] [place] [address] Mary Sales MD Morbid obesity with BMI of 40.0-44.9, adult 06/08/2024 Travel 06/07/2024 Telephone [facility] [address] [place] [address] Taylor Yeboah Appointment 05/31/2024 1:47 PM OUTDOOR EMERGENCY CARE TECHNICIAN - 05/31/2024 11:59 PM OUTDOOR EMERGENCY CARE TECHNICIAN Hospital Encounter [facility] [address] [place] [address] Bird Stevenson MD Discharge Disposition: Home or Self Care 05/31/2024 Travel 05/24/2024 Orders Only [facility] [address] [place] [address] Qiana Mcf[address]ane, RD/LD 05/23/2024 Refill [facility] [address] [place] [address] Luana Plummer MD MEDICATION REFILL 05/10/2024 1:56 PM OUTDOOR EMERGENCY CARE TECHNICIAN - 05/10/2024 11:59 PM OUTDOOR EMERGENCY CARE TECHNICIAN Hospital Encounter [facility] [address] [place] [address] Luana Plummer MD Discharge Disposition: Home or Self Care 05/10/2024 1:56 PM OUTDOOR EMERGENCY CARE TECHNICIAN - 05/10/2024 11:59 PM OUTDOOR EMERGENCY CARE TECHNICIAN Hospital Encounter [facility] [address] [place] [address] Luana Plummer MD Discharge Disposition: Home or Self Care 05/10/2024 Travel from Last 3 Months Immunizations Immunization Administration Dates Next Due Covid Pfizer primary [...] ML (IIV3) 03/01/2024 PNEUMOCOCCAL PPV VACCINE 07/02/2018 TDAP (7yrs+) 08/03/2024 TDAP, HISTORIC VACCINE 04/16/2020,01/02/2015 Family History Medical [...] and heating? Not hard at all 02/24/2024 [facility] Occupat ional Health - Occupational Stress [...] things needed for daily living? No 02/24/2024 [place] Depression Scale Answer Date Recorded [place] Depression Scale Total 1 03/01/2024 The thought [...] were you homeless or living in a halfway (including now)? Yes 02/24/2024 Estimated Date of Delivery Comme nts Yes 10/19/2024 Based on last me nstrual period of 01/13/2024 Sex and Gender Information Value Date Recorded Sex Assigned at Not on file Legal Sex Female 2:51 PM CDT Gender Identity Not on file Sexual Orientation Not on file Last Filed Vital Signs Vital Sign Reading Time Taken Comments Blood Pressure 123/80 08/03/2024 1:13 PM CDT Pulse 85 08/03/2024 1:13 PM CDT Temperature 36.6 C (97.8 F) 02/28/2024 2:00 PM OUTDOOR EMERGENCY CARE TECHNICIAN Respiratory Rate 16 07/12/2024 3:12 PM CDT Oxygen Saturation 98% 02/28/2024 5:00 PM OUTDOOR EMERGENCY CARE TECHNICIAN Inhaled Oxygen Concentration - - Weight 105.3 kg (232 lb 3.2 oz) 08/03/2024 1:13 PM CDT Height 162.6 cm (5' 4 ) 06/08/2024 12:5 9 PM OUTDOOR EMERGENCY CARE TECHNICIAN Body Mass Index 39.86 06/08/2024 12:59 PM OUTDOOR EMERGENCY CARE TECHNICIAN Plan of Treatment Upcoming Encounters Date Type Department Care Team (Late st Contact Info) Description 08/23/2024 1:15 PM CDT Appointment [facility] [address] [place] [address]. [address] [place] [address] 08/23/2024 2:15 PM CDT Appointment [facility] [address] [place] [address]. [address] [place] [address] 08/23/2024 3:10 PM CDT Appointment [facility] [address] [place] [address] 08/30/2024 1:00 PM CDT Appointment [facility] [address] [place] [address] 08/30/2024 1:30 PM CDT Appointment [facility] [address] [place] [address] 09/06/2024 1:00 PM CDT Appointment [facility] [address] [place] [address] 09/06/2024 1:30 PM CDT Appointment [facility] [address] [place], [place] [address] [place] [address] Health Maintenance Due Date Last Done Comments HEPATITIS B VACCINE (1 of 3 - 19+ 3-dose series) 2008 PNEUMOCOCCAL VACCINE (2 of 2 - PCV) 07/03/2019 07/02/2018 DIABETES RETINOPATHY SCREENING 08/25/2022 DIABETES-FOOT EXAM WITH MONOFILAMENT 08/25/2022 COVID-19 VACCINE ( season) 2023 06/05/2021, 06/05/2021, 05/15/2021, Additional history exists DEPRESSION SCREENING 04/20/2024 03/01/2024 DIABETES - URINE PROTEIN SCREENING 04/20/2024 03/01/2024 OB-ONE HOUR GLUCOSE 07/13/2024 DIABETES-HGB A1C 12/06/2024 06/08/2024, 03/2024, 09/24/2023 DIABETES-SERUM CREATININE 02/27/2025 02/28/2024 PAP with HPV 03/01/2029 03/01/2024 DTAP/TDAP/TD VACCINES (4 - Td or Tdap) 08/03/2034 08/03/2024, 04/16/2020, 01/02/2015 ZOSTER VACCINE (1 of 2) 12/26/2039 HPV VACCINE Completed 09/03/2023, 05/2023, 03/09/2023 HEPATITIS C SCREENING Completed 03/01/2024 INFLUENZA VACCINE Completed 03/01/2024, , 01/30/2022, Additional history exists HIV SCREENING Completed 07/28/2024, 03/01/2024 OB-TDAP CURRENT Completed 2024, 04/16/2020, 01/02/2015 HIB VACCINE Aged Out No longer eligi [...] Procedure Name Priority Date/Time Associated Diagnosis Comments URINALYSIS - POCT (IP) BEAKER INTERFACE Routine 08/03/2024 1:19 PM CDT URINALYSIS - POCT (IP) BEAKER INTERFACE Routine 07/26/2024 3:30 PM CDT SONOGRAM - COMPLETE Routine 07/26/2024 2 :48 PM CDT Pre-existing type 2 diabetes mellitus during , antepartum (HCC) ECHO COMPLETE CG Routine 07/20/2024 1:59 PM CDT Supervision of high risk , antepartum (HCC) URINALYSIS - POCT (IP) BEAKER INTERFACE Routine 07/12/2024 3:41 PM CDT CULTURE URINE Routine 07/12/2024 3:37 PM CDT , unspecified gestational age WET PREP SMEAR - POINT OF CARE (IP) Routine 06/28/2024 4:19 PM CDT Vaginitis affecting in second trimester, antepartum TRICHOMONAS VAGINALIS COLLINS Routine 06/28/2024 4:15 PM CDT Vaginitis affecting in second trimester, antepartum CHLAMYDIA AND N. GONORRHOEAE COLLINS Routine 06/28/2024 4:15 PM CDT Vaginitis affecting in second trimester, antepartum URINALYSIS - POCT (IP) BEAKER INTERFACE Routine 06/28/2024 3:13 PM CDT SONOGRAM - COMPLETE Routine 06/28/2024 2 :29 PM CDT URINALYSIS - POCT (IP) BEAKER INTERFACE Routine 06/15/2024 12:41 PM OUTDOOR EMERGENCY CARE TECHNICIAN HEMOGLOBIN A1C Routine 06/08/2024 1:59 PM OUTDOOR EMERGENCY CARE TECHNICIAN Type 2 diabetes mellitus with hyperglycemia, unspecified whether detention insulin use GLUCOSE - POINT OF CARE Routine 06/08/2024 1:49 PM OUTDOOR EMERGENCY CARE TECHNICIAN EKG 12-LEAD Routine 06/08/2024 1:47 PM OUTDOOR EMERGENCY CARE TECHNICIAN Morbid obesity with BMI of 40.0-44.9, adult URINALYSIS - POCT (IP) BEAKER INTERFACE Routine 06/08/2024 1:02 PM OUTDOOR EMERGENCY CARE TECHNICIAN SONOGRAM - COMPLETE Routine 05/31/2024 2 :18 PM OUTDOOR EMERGENCY CARE TECHNICIAN URINALYSIS - POCT (IP) BEAKER INTERFACE Routine 05/10/2024 2:12 PM OUTDOOR EMERGENCY CARE TECHNICIAN PROTEIN CREATININE RATIO URINE RANDOM PNL Routine 03/01/2024 4:35 PM OUTDOOR EMERGENCY CARE TECHNICIAN Pre-existing type 2 diabetes mellitus during , antepartum Supervision of high-risk of young primigravida HEPATITIS C ANTIBODY Routine 03/01/2024 4:35 PM OUTDOOR EMERGENCY CARE TECHNICIAN Pre-existing type 2 diabetes mellitus during , antepartum Supervision of high-risk of young primigravida PAP IG LB+HPV APTIMA Routine 03/01/2024 4:35 PM OUTDOOR EMERGENCY CARE TECHNICIAN Supervision of high-risk of young primigravida HIV-1 HIV-2 ANTIBODY + HIV P24 AG PANEL Routine 03/01/2024 4:35 PM OUTDOOR EMERGENCY CARE TECHNICIAN Pre-existing type 2 diabetes mellitus during , antepartum Supervision of high-risk of young primigravida COMPREHENSIVE METABOLIC PANEL STAT 02/28/2024 2:11 PM OUTDOOR EMERGENCY CARE TECHNICIAN from Last 3 Months or Most Recently Relevant to Health Maintenance Results * (ABNORMAL) URINALYSIS - POCT (IP) BEAKER INTERFACE (08/03/2024 1:19 PM CDT) Only the most recent of7 resultswithin the time period is included. Color UA POCT Yellow Straw, Yellow, Dark Yellow, Light Yellow 08/03/2024 1:22 PM CDT [facility] Clarity UA POCT Clear Clear 1:22 PM CDT [facility] Specific [place] UA POCT >=1.030 1.005 - 1.030 08/03/2024 1:22 PM CDT [facility] pH UA POCT 6.0 5.0 - 8.0 pH 08/03/2024 1:22 PM CDT [facility] Protein UA POCT 1+(A) Negative 1:22 PM CDT [facility] Blood UA POCT Negative Negative 08/03/2024 1:22 PM CDT [facility] Leukocyte UA POCT Negative Negative 08/03/2024 1:22 PM CDT [facility] Nitrite UA POCT Negative Negative 1:22 PM CDT [facility] Glucose UA POCT Negative Negative 1:22 PM CDT [facility] Ketone UA POCT 1+(A) Negative 08/03/2024 1:22 PM CDT [facility] Bilirubin UA POCT Negative Negative 08/03/2024 1:22 PM CDT [facility] Urobilinogen UA POCT 0.2 0.1 - 1.0 EU/dL 08/03/2024 1:22 PM CDT [facility] Urine URINE / Unknown 08/03/2024 1 :19 PM CDT 08/03/2024 1:22 PM CDT Dave Sevilla MD LAB - POINT OF CARE OR DERABLES Final Result [facility] [address] [id number] * SONOGRAM - COMPLETE (07/26/2024 2:48 PM CDT) Only the most recent of3 resultswithin the time period is included. Linked Results Indication ======== Diabetes mellitus, type II Obesity, Class II Normal echo 07/20/24 History ====== OB History 2. Para 1 [id number] Lab Tests Test Date Result NIPT 04/05/2024 Low risk, Female Maternal Assessment Physical Exam Height 163 cm, 5 ft 4 in. Weight 105 kg, 232 lb. Initial weight 89 kg, 196 lb. BMI 39.82 kg/m . Initial BMI 33.64 kg/m . Weight gain 16 kg, 36 lb Method ====== Transabdominal ultrasound. View: Limited by late gestational age and maternal body habitus ========= Valderrama . Number of fetuses: 1 Dating ====== Date Details Gest. age JEFF LMP 01/13/2024 Cycle: regular cycle 27 w + 6 d 10/19/2024 Stated JEFF 27 w + 6 d 10/19/2024 U/S 07/26/2024 based upon AC, BPD, Femur, HC 28 w + 0 d 10/18/2024 Assigned dating based on the LMP, selected on 03/15/2024 27 w + 6 d 10/19/2024 General Evaluation Cardiac activity present. FHR 144 bpm. movements: visualized. Presentation: breech Placenta: Placental site: posterior Amniotic fluid: Amount of AF: normal. MVP 4.4 cm Biometry BPD 68.3 mm 27w 3d 26% Hadlock HC 264.3 mm 28w 5d 48% Hadlock AC 244.4 mm 28w 5d 68% Hadlock Femur 49.8 mm 26w 6d 11% Hadlock Humerus 45.5 mm 27w 0d 18% Nell HC / AC 1.08 Weight Calculation: EFW 1,158 g 42% Hadlock EFW (lb,oz) 2 lb 9 oz EFW by Hadlock ([id number]) appropriate Growth Overview Exam date GA BPD (mm) HC (mm) AC (mm) FL (mm) HL (mm) EFW (g) 05/31/2024 19w 6d 45.2 42% 171.1 35% 151.9 63% 29.6 19% 29.9 53% 314 42% 06/28/2024 23w 6d 60.6 73% 221.3 44% 192.7 45% 41.1 22% 38.8 36% 629 38% 07/26/2024 27w 6d 68.3 26% 264.3 48% 244.4 68% 49.8 11% 45.5 18% 1158 42% Anatomy The following structures appear normal: Abdomen Stomach. Kidneys. Bladder. sex: female. Impression ========= Single, live, intrauterine at 27w 6d The size is appropriate. The amniotic fluid volume is normal. No major malformations were seen within the limits of ultrasound. Follow-up ======== Follow up ultrasound at 32 weeks for growth and to begin twice weekly testing. Coding ====== Procedures 22051: US Preg Uterus Follow Up LivescribeS Anatomical Region Laterality Modality Other 07/26/2024 2:48 PM CDT Eduar Hernandez MD [facility] ORDERABLES Edited Result - Final * ECHO COMPLETE CG (07/20/2024 1:59 PM CDT) MV E pk maurice 24.63 cm/s [facility] CV F UJI PACS MV A pk maurice 44.09 cm/s [facility] CV F UJI PACS Anatomical Region Laterality Modality Ultrasound 07/20/2024 1:47 PM CDT Narrative 07/20/2024 5:32 PM CDT Name: Yasmeen Ny Patient Exam Info Gender: Female Patient Status: O/P : 1990 Admit Date: 07/20/2024 Exam Date/Time: 07/20/2024 1:47 PM Site: [facility] Current Location: [facility] EStaffOrdering Provider: Moe Blackwell Interpreting Physician: Sandy Perez MD Gameplay Engineer: Aayush Rogers [facility] Study Info Procedure: ECHO COMPLETE CG Indications: O09.90 - Supervision of high risk , antepartum (HCC) E11.8 - Type 2 diabetes mellitus Maternal Gestational Status GA by EDC: 27 wks , 0 days EDC: 10/19/2024 Type: Valderrama Age: 33 yrs Lie: Breech Summary * The echocardiogram was within normal limits. * Small atrial and ventricular septal defects and persistent ductus arteriosus cannot be excluded as findings. Anatomic Relationships Left sided cardiac apex (levocardia). There is normal visceral-cardiac situs, and normal segmental cardiac anatomical relationship. Systemic Veins There is normal systemic venous return. Pulmonary Veins The visualized pulmonary veins drain normally to the left atrium. Right Atrium The right atrial size is normal. Left Atrium The left atrial size is normal. Atrial Septum Patent foramen ovale with open foramen flap. Color flow is right to left. Right Ventricle The right ventricular cavity size is normal. The right ventricular wall thickness is normal. The right ventricular systolic function is normal. RV Outflow Tract The right ventricular outflow tract is normal. Left Ventricle The left ventricular cavity size is normal. The left ventricular wall thickness is normal. The left ventricular systolic function is normal. Ventricular Septum There is no ventricular septal defect with no shunting. LV Outflow Tract The left ventricular outflow tract is normal. Tricuspid Valve The tricuspid valve is structurally normal. The tricuspid inflow pattern is normal. Tricuspid velocity is within the normal range. There is no tricuspid regurgitation. Mitral Valve The mitral valve is structurally normal. The mitral inflow pattern is normal. Mitral velocity is within the normal range. There is no mitral regurgitation. Aorta aortic arch visualized and is without obstruction by 2D, color flow and Doppler. Pulmonary Arteries The main pulmonary artery is normal, with confluent branch pulmonary arteries. Ductus Arteriosus The antegrade flow velocity and pattern in the ductal arch is normal. A normal ductus arteriosus is appreciated. Doppler Flow in the ductus venosus is normal. The umbilical vein flow pattern is normal. The umbilical artery flow pattern is normal. Hydrops Assessment No pericardial effusion. No ascites present. No pleural effusion(s). Rhythm The rhythm is normal. There is 1:1 AV conduction. Pulmonary Valve The pulmonic valve is normal-sized. The transpulmonic velocity is within normal range. There is no pulmonic regurgitation. Aortic Valve The aortic valve is normal-sized. The transaortic velocity is within normal range. There is no aortic regurgitation. Doppler Measurements (Fetus A) Atrioventricular Valves Name Value Normal Z-Score Percentile Atrioventricular Valves Doppler TV E Peak Velocity 0.2 m/s TV A Peak Velocity 0.5 m/s MV E Peak Velocity 0.2 m/s MV A Peak Velocity 0.4 m/s (Fetus A) Semilunar Valves Name Value Normal Z-Score Percentile Semilunar Valves Doppler PV Peak Velocity. 0.5 m/s AV Peak Velocity () 0.6 m/s (Fetus A) Heart Rate Name Value Normal Z-Score Percentile Heart Rate HR 148 bpm Report Signatures Finalized by Sandy Perez MD on 07/20/2024 05:31 PM Procedure Note Sandy Perez MD - 07/20/2024 Name: Yasmeen Ny Patient Exam Info Gender: Female Patient Status: O/P : 1990 Admit Date: 07/20/2024 Exam Date/Time: 07/20/2024 1:47 PM Site: [facility] Current Location: [facility] EStaffOrdering Provider: Moe Blackwell Interpreting Physician: Sandy Perez MD Gameplay Engineer: Aayush Rogers [facility] - Study Info Procedure: ECHO COMPLETE Indications: O09.90 - Supervision of high risk , antepartum (HCC) E11.8 - Type 2 diabetes mellitus Maternal Gestational Status GA by EDC: 27 wks , 0 days EDC: 10/19/2024 Type: Valderrama Age: 33 yrs Lie: Breech Summary * The echocardiogram was within normal limits. * Small atrial and ventricular septal defects and persistent ductus arteriosus cannot be excluded as findings. Anatomic Relationships Left sided cardiac apex (levocardia). There is normal visceral-cardiac situs, and normal segmental cardiac anatomical relationship. Systemic Veins There is normal systemic venous return. Pulmonary Veins The visualized pulmonary veins drain normally to the left atrium. Right Atrium The right atrial size is normal. Left Atrium The left atrial size is normal. Atrial Septum Patent foramen ovale with open foramen flap. Color flow is right toleft. Right Ventricle The right ventricular cavity size is normal. The right ventricularwall thickness is normal. The right ventricular systolic function is normal. RV Outflow Tract The right ventricular outflow tract is normal. Left Ventricle The left ventricular cavity size is normal. The left ventricular wall thickness is normal. The left ventricular systolic function is normal. Ventricular Septum There is no ventricular septal defect with no shunting. LV Outflow Tract The left ventricular outflow tract is normal. Tricuspid Valve The tricuspid valve is structurally normal. The tricuspid inflow patternis normal. Tricuspid velocity is within the normal range. There is notricuspid regurgitation. Mitral Valve The mitral valve is structurally normal. The mitral inflow pattern is normal. Mitral velocity is within the normal range. There is no mitral regurgitation. Aorta aortic arch visualized and is without obstruction by 2D, colorflow and Doppler. Pulmonary Arteries The main pulmonary artery is normal, with confluent branch pulmonary arteries. Ductus Arteriosus The antegrade flow velocity and pattern in the ductal arch is normal.A normal ductus arteriosus is appreciated. Doppler Flow in the ductus venosus is normal. The umbilical vein flow patternis normal. The umbilical artery flow pattern is normal. Hydrops Assessment No pericardial effusion. No ascites present. No pleural effusion(s). Rhythm The rhythm is normal. There is 1:1 AV conduction. Pulmonary Valve The pulmonic valve is normal-sized. The transpulmonic velocity iswithin normal range. There is no pulmonic regurgitation. Aortic Valve The aortic valve is normal-sized. The transaortic velocity is withinnormal range. There is no aortic regurgitation. Doppler Measurements (Fetus A) Atrioventricular Valves Name Value Normal Z-ScorePercentile Atrioventricular Valves Doppler TV E Peak Velocity 0.2 m/s TV A Peak Velocity 0.5 m/s MV E Peak Velocity 0.2 m/s MV A Peak Velocity 0.4 m/s (Fetus A) Semilunar Valves Name Value Normal Z-ScorePercentile Semilunar Valves Doppler PV Peak Velocity. 0.5 m/s AV Peak Velocity () 0.6 m/s (Fetus A) Heart Rate Name Value Normal Z-ScorePercentile Heart Rate HR 148 bpm Report Signatures Finalized by Sandy Perez MD on 07/20/2024 05:31 PM Moe Blackwell MD ECHO CUPAL Final Result * CULTURE URINE (07/12/2024 3:37 PM CDT) Culture Urine 10,000-50,000 CFU/mL urogenital luis SHITAL 07/13/2024 11:26 PM CDT [facility] MICROBIOLOGY Urine URINE SPECIMEN OBTAINED BY CLEAN CATCH PROCEDURE / Unknown Collection / Unknown 07/12/2024 3:37 PM CDT 07/12/2024 3:55 PM CDT Vianca Bailey MD LAB - MICROBIOLOGY TASHA FORRESTER Final Result Performing Organization Address City/[facility]/ZIP Co de Phone Number [facility] MICROBIOLOGY [address] [place] [address], [facility] [phone] * (ABNORMAL) WET PREP SMEAR - POINT [...] Lombardo MD LAB - POINT OF CARE ORD ERABLES Final Result Performing Organization Address [facility]/ZIP Co de Phone Number [facility] POCT TESTING [address] [phone] * TRICHOMONAS VAGINALIS COLLINS (06/28/2024 4:15 PM CDT) Trichomonas by COLLNIS NEGATIVE NEGATIVE 06/29/2024 1:38 PM CDT [facility] MICROBIOLOGY Microbiology (Endocervix - Swab) Collection / Unknown 06/28/2024 4:15 PM CDT 06/28/2024 4:22 PM CDT Lino Lombardo MD LAB - MICROBIOLOGY TASHA FORRESTER Final Result [facility] MICROBIOLOGY [address] [place] [address], [facility] [phone] * CHLAMYDIA AND N. GONORRHOEAE COLLINS (06/28/2024 4:15 PM CDT) Pathologist [facility] Chlamydia by COLLINS NEGATIVE NEGATIVE 06/29/2024 1:38 PM CDT [facility] MICROBIOLOGY Neisseria gonorrhoeae COLLINS NEGATIVE NEGATIVE 06/29/2024 1:38 PM CDT [facility] MICROBIOLOGY Microbiology (Endocervix - Swab) Collection / Unknown 06/28/2024 4:15 PM CDT 06/28/2024 4:22 PM CDT Lino Lombardo MD LAB - MICROBIOLOGY TASHA FORRESTER Final Result [facility] MICROBIOLOGY [address] [place] [address], [facility] [phone] * HEMOGLOBIN A1C (06/08/2024 1:59 PM OUTDOOR EMERGENCY CARE TECHNICIAN) Pathologist [facility] Hemoglobin A1c 5.1 <5.7 % 06/08/2024 2:27 PM OUTDOOR EMERGENCY CARE TECHNICIAN [facility] Estimated Average Glucose 100 mg/dL 06/08/2024 2:27 PM OUTDOOR EMERGENCY CARE TECHNICIAN [facility] Blood BLOOD SPECIMEN / Unknown Venipuncture / Unknown 06/08/2024 1:59 PM OUTDOOR EMERGENCY CARE TECHNICIAN 06/08/2024 2:17 PM OUTDOOR EMERGENCY CARE TECHNICIAN Narrative [facility] - 06/08/2024 2:27 PM OUTDOOR EMERGENCY CARE TECHNICIAN HbA1c Interpretation: Normal: < 5.7% Pre-diabetes: 5.7-6.4% [...] method. Latanya Loomis MD LAB - CHEMISTRY ORDERABLES Fin al Result Performing Organization Address [facility]/ZIP Co de Phone Number [facility] [address] [place] [address] * (ABNORMAL) GLUCOSE - POINT OF CARE (06/08/2024 1:49 PM OUTDOOR EMERGENCY CARE TECHNICIAN) [facility] Glucose WB/POC 61(L) 70 - 99 mg/dL 06/08/2024 1:55 PM OUTDOOR EMERGENCY CARE TECHNICIAN [facility] Specimen Type Cap Fingerstick 2024 1:55 PM OUTDOOR EMERGENCY CARE TECHNICIAN [facility] Blood BLOOD SPECIMEN / Unknown 06/08/2024 1:49 PM OUTDOOR EMERGENCY CARE TECHNICIAN 06/08/2024 1:55 PM OUTDOOR EMERGENCY CARE TECHNICIAN Dave Sevilla MD LAB - POINT OF CARE OR DERABLES Final Result Performing Organization Address [facility] Co de Phone Number [facility] [address] [place] [id number] * EKG 12-LEAD (06/08/2024 1:47 PM OUTDOOR EMERGENCY CARE TECHNICIAN) [facility] Ventricular Rate 91 BPM [facility] M[facility] Atrial Rate 91 BPM [facility] P-R Interval 142 ms [facility] QRS Duration ms 86 ms [facility] Q-T Interval ms 362 ms [facility] QTC Calculation (Bezet) 445 ms [facility] Calculated P Eagle 46 degrees [facility] M[facility] Calculated R Eagle -27 degrees [facility] M[facility] Calculated T Eagle 44 degrees [facility] M[facility] Interpretation EKG NORMAL SINUS RHYTHM POSSIBLE LEFT ATRIAL ENLARGEMENT POOR R WAVE PROGRESSION ABNORMAL ECG Confirmed by Stevan Eastman MD ([id number]) on 06/08/2024 1:05:43 PM [facility] M[facility] 06/08/2024 1:47 PM OUTDOOR EMERGENCY CARE TECHNICIAN 06/08/2024 1:05 PM OUTDOOR EMERGENCY CARE TECHNICIAN Mary Sales MD ECG ORDERABLES Edited Resul t - Final [facility] * PAP IG LB+HPV APTIMA (03/01/2024 4:35 PM OUTDOOR EMERGENCY CARE TECHNICIAN) Diagnosis Comment 03/09/2024 5:09 PM OUTDOOR EMERGENCY CARE TECHNICIAN [facility] Comment:NEGATIVE FOR INTRAEP ITHELIAL LESION OR MALIGNANCY. Specimen Adequacy Comment 024 5:09 PM OUTDOOR EMERGENCY CARE TECHNICIAN [facility] Comment:Satisfactory for loida luation. No endocervical component is identified. Performed by Comment 03/09/2024 5:09 PM OUTDOOR EMERGENCY CARE TECHNICIAN [facility] Comment:Bharti Ocampo, Cytot echnologist (ASCP) Comment . 03/09/2024 5:09 PM OUTDOOR EMERGENCY CARE TECHNICIAN [facility] Note Comment 03/09/2024 5:09 PM OUTDOOR EMERGENCY CARE TECHNICIAN [facility] Comment: The Pap smear is a screening test designed to aid in the detection of premalignant and malignant conditions of the uterine cervix. It is not a diagnostic procedure and should not be used as the sole means of detecting cervical cancer. Both false-positive and false-negative reports do occur. IGLBP CPT Code Automation Comment 03/09/2024 5:09 PM OUTDOOR EMERGENCY CARE TECHNICIAN [facility] Comment: This liquid based ThinPrep(R) pap test was screened with the use of an image guided system. Human papillomavirus Aptima Negative Negative 03/09/2024 5:09 PM OUTDOOR EMERGENCY CARE TECHNICIAN [facility] Comment: This nucleic acid amplification test detects fourteen high-risk HPV types (16,18,31,33,35,39,45,51,52,56,58,59,66,68) without differentiation. Pathology/Cytolo gy PART OF UTERINE CERVIX / Unknown Collection / Unknown 03/01/2024 4:35 PM OUTDOOR EMERGENCY CARE TECHNICIAN 03/01/2024 4:54 PM OUTDOOR EMERGENCY CARE TECHNICIAN Narrative [facility] - 03/09/2024 5:09 PM OUTDOOR EMERGENCY CARE TECHNICIAN Performed at: 01 - [address] [id number] Compensation Agent: Kaylee Torres MD, Phone: [phone] Performed at: 02 - [address] [id number] Compensation Agent: Kaylee Torres MD, Phone: [phone] Specimen Comment: Source.............Cervix Specimen Comment: LMP / Prev Treat...Anita / BX Specimen Comment: No. of containers..01 ThinPrep Vial Lino Lombardo MD LAB - PATHOLOGY/CYTOLOG Y ORDERABLES Final Result [facility] ([facility]) [address] [place] [address] * HIV-1 HIV-2 ANTIBODY + HIV P24 AG PANEL (03/01/2024 4:35 PM OUTDOOR EMERGENCY CARE TECHNICIAN) Pathologist [facility] HIV1/2 Ab + P24 Ag Non Reactive Non Reactive 03/01/2024 5:51 PM OUTDOOR EMERGENCY CARE TECHNICIAN [facility] Blood BLOOD SPECIMEN / Unknown Venipuncture / Unknown 03/01/2024 4:35 PM OUTDOOR EMERGENCY CARE TECHNICIAN 03/01/2024 4:53 PM OUTDOOR EMERGENCY CARE TECHNICIAN Narrative [facility] - 03/01/2024 5:51 PM OUTDOOR EMERGENCY CARE TECHNICIAN No Laboratory evidence of HIV infection. Result [facility] Lino Lombardo MD LAB - CHEMISTRY ORDERAB LES Final Result Performing Organization Address City/[facility]/ZIP Co de Phone Number [facility] [address] [place] [address] * (ABNORMAL) PROTEIN CREATININE RATIO URINE RANDOM PNL (03/01/2024 4:35 PM OUTDOOR EMERGENCY CARE TECHNICIAN) Pathologist [facility] Protein Urine 13.7(H) <11.9 mg/dL 03/01/2024 5:36 PM OUTDOOR EMERGENCY CARE TECHNICIAN [facility] Creatinine Urine 192.10 mg/dL 03/01/2024 5:36 PM OUTDOOR EMERGENCY CARE TECHNICIAN [facility] Protein/Creatin ine Ratio Urine 0.07 03/01/2024 5:36 PM OUTDOOR EMERGENCY CARE TECHNICIAN [facility] Urine URINE SPECIMEN OBTAINED BY CLEAN CATCH PROCEDURE / Unknown Collection / Unknown 03/01/2024 4:35 PM OUTDOOR EMERGENCY CARE TECHNICIAN 03/01/2024 4:54 PM OUTDOOR EMERGENCY CARE TECHNICIAN Lino Lombardo MD LAB - URINE CHEMISTRY O RDERABLES Final Result Performing Organization Address [facility] Co de Phone Number [facility] [address] [place], [place] [id number] * HEPATITIS C ANTIBODY (03/01/2024 4:35 PM OUTDOOR EMERGENCY CARE TECHNICIAN) [facility] HCV Antibody Screen Non Reactive Non Reactive 03/01/2024 5:51 PM [facility] Blood BLOOD SPECIMEN / Unknown Venipuncture / Unknown 03/01/2024 4:35 PM OUTDOOR EMERGENCY CARE TECHNICIAN 03/01/2024 4:53 PM OUTDOOR EMERGENCY CARE TECHNICIAN Narrative [facility] - 03/01/2024 5:51 PM OUTDOOR EMERGENCY CARE TECHNICIAN Non Reactive - Antibodies to Hepatitis C virus (HCV) were not detected, result does not exclude early acute HCV infection. Lino Lombardo MD LAB - CHEMISTRY ORDERAB LES Final Result Performing Organization Address [facility] de Phone Number [facility] [address] [place] [address] * (ABNORMAL) COMPREHENSIVE METABOLIC PANEL (02/28/2024 2:11 PM OUTDOOR EMERGENCY CARE TECHNICIAN) [facility] Glucose 114(H) 70 - 99 mg/dL 02/28/2024 2:32 PM [facility] Sodium 138 136 - 145 mmol/L 02/28/2024 2:32 PM [facility] Potassium 3.7 3.5 - 5.1 mmol/L 02/28/2024 2:32 PM [facility] Chloride 109(H) 98 - 107 mmol/L 02/28/2024 2:32 PM [facility] CO2 23 22 - 29 mmol/L 02/28/2024 2:32 PM [facility] Calcium 9.0 8.4 - 10.4 mg/dL 02/28/2024 2:32 PM [facility] Anion Gap 6 6 - 16 mmol/L 02/28/2024 2:32 PM [facility] BUN 8 5.3 - 18.7 mg/dL 02/28/2024 2:32 PM [facility] Creatinine 0.76 0.57 - 1.11 mg/dL 02/28/2024 2:32 PM [facility] Alkaline Phosphatase 67 40 - 150 U/L 02/28/2024 2:32 PM OUTDOOR EMERGENCY CARE TECHNICIAN [facility] ALT 11 0 - 55 U/L 02/28/2024 2:32 PM OUTDOOR EMERGENCY CARE TECHNICIAN [facility] AST 15 5 - 34 U/L 02/28/2024 2:32 PM OUTDOOR EMERGENCY CARE TECHNICIAN [facility] Protein Total 7.0 6.4 - 8.3 gm/dL 02/28/2024 2:32 PM OUTDOOR EMERGENCY CARE TECHNICIAN [facility] Albumin 3.4 3.4 - 5.0 gm/dL 02/28/2024 2:32 PM OUTDOOR EMERGENCY CARE TECHNICIAN [facility] Bilirubin Total 0.4 0.2 - 1.2 mg/dL 02/28/2024 2:32 PM OUTDOOR EMERGENCY CARE TECHNICIAN [facility] eGFR by CKD-EPI >90 >=90 mL/min/1.7 3 m2 02/28/2024 2:32 PM OUTDOOR EMERGENCY CARE TECHNICIAN [facility] Blood BLOOD SPECIMEN / Unknown Venipuncture / Unknown 02/28/2024 2:11 PM OUTDOOR EMERGENCY CARE TECHNICIAN 02/28/2024 2:16 PM OUTDOOR EMERGENCY CARE TECHNICIAN Robert Haddad PA-C LAB - CHEMISTRY ORDERABLE S Final Result [facility] [address] [place] [address] from Last 3 Months or Most Recently Relevant to Health Maintenance Insurance [employer] [facility] Care Teams It Security Manager Relationship Specialty Start Date End Date Chuck Nelson APRN-EMILY [address] [place] [address] [phone] PCP - General Nurse Practitioner 08/25/22
--- OUTSIDE RECORDS SUMMARY | 2024-08-08 02:10 | XMS_ITS | Clinical Summary ---
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 Testing performed by: [address] [address] Blood 09/24/2023 8:42 AM CDT 09/24/2023 9:06 AM CDT Sajan Pollard MD LAB BLOOD ORDERABL ES Final Result Performing Organization Address City/[facility]/ZIP Co de Phone Number [facility] [address] [facility] [place] [address] * (ABNORMAL) Hemoglobin A1c (09/24/2023 8:42 AM CDT) Hgb A1C 6.8(H) 4.0 - 5.6 % Comment:Testing performed by : [address] [address] Estimated Average Glucose 148 mg/dL [facility] Comment: The ADA recommends reporting an estimated Average Glucose (eAG) with all Hemoglobin A1c results using the equation derived from a study of 507 normal and diabetic adults. Minority populations were underrepresented and children were not included. (Diabetes Care 31:2985-2896, 2008). The eAG is not equivalent to a fasting glucose. Testing performed by: [address] [address] Blood 09/24/2023 8:42 AM CDT 09/24/2023 9:06 AM CDT Narrative [facility] - 09/24/2023 9:40 AM CDT PRE SURGERY TESTING ONLY Sajan Pollard MD LAB BLOOD ORDERABL ES Final Result [facility] [address] [facility] [place] [address] from Last 3 Months or Most Recently Relevant to Health Maintenance Insurance [facility] CHOICE PLUS [employer] OPEN ACCESS [employer] OPEN ACCESS Care Teams Traffic Routing Engineer Relationship Specialty Start Date End Date Chuck Nelson NP PCP - General 01/26/19 Christopher Nelson MD [address] [place] [id number] Consulting Physician General Surgery 09/30/23
--- OUTSIDE RECORDS SUMMARY | 2024-08-08 02:10 | XMS_ITS | Encounter Summary ---
Author Organization [facility] Address [address] [place] [address] Care Team Providers Care Manager It Security Name Role Phone Chuck Nelson CRISIS WORKER-MEDICAL SERVICE REPRESENTATIVE Primary Care Pro vider Reason for Visit * Reason Onset Date Comments MEDICATION REFILL 05/23/2024 Encounter Details Date Type Department Care Team (Late st Contact Info) Description 05/23/2024 Refill [facility] MATERNAL/ EVALUATION UNIT [address] [facility] [place] [id number] Luana Plummer MD [address] [facility] [address] [place] [address] MEDICATION REFILL Social History Tobacco [...] and heating? Not hard at all 02/24/2024 [facility] [place] of Occupat ional Health - Occupational Stress [...] things needed for daily living? No 02/24/2024 [place] Depression Scale Answer Date Recorded [place] Depression Scale Total 1 03/01/2024 The thought [...] any time in the past 12 m [facility], were you homeless or living in a alf (including now)? Yes 02/24/2024 Estimated Date of [...] Info) Description 08/23/2024 1:15 PM CDT Appointment [facility]/ EVALUATION UNIT [address] [place] [address] [address] [place] [address] 08/23/2024 2:15 PM CDT Appointment [facility]/ EV[facility]UATION UNIT [address] [place], [place] [address]josefina [address]. [address] [place] [address] 08/23/2024 3:10 PM CDT Appointment [facility]/ EVALUATION UNIT [address] [place], [place] [address]josefina [address]. [address] [place] [address] 08/30/2024 1:00 PM CDT Appointment [facility]/ EVALUATION UNIT [address] [place] [address] 08/30/2024 1:30 PM CDT Appointment [facility]/ EVALUATION UNIT [address] [place] [address] 09/06/2024 1:00 PM CDT Appointment [facility] EVALUATION UNIT [address] [place] [address] 09/06/2024 1:30 PM CDT Appointment [facility] EVALUATION UNIT [address] [place] [address] documented as of this encounter Visit Diagnoses Diagnosis Pre-existing type 2 diabetes mellitus during , antepartum (HCC) documented in this encounter Care Teams Manager It Security Relationship Specialty Start Date End Date Chuck Nelson APRN-EMILY [address] [place] [phone] PCP - General Nurse Practitioner 08/25/22 documented as of this encounter
--- OUTSIDE RECORDS SUMMARY | 2024-08-08 02:11 | XMS_ITS | Referral Summary ---
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 Testing performed by: [address] [address] Blood 09/24/2023 8:42 AM CDT 09/24/2023 9:06 AM CDT us Sajan Pollard MD LAB BLOOD ORDERABL ES Final Result [facility] [address] [facility] Department [place] [address] * (ABNORMAL) Hemoglobin A1c (09/24/2023 8:42 AM CDT) Hgb A1C 6.8(H) 4.0 - 5.6 % Comment:Testing performed by : [address] [address] Estimated Average Glucose 148 mg/dL KELLEN TARANGO Comment: The ADA recommends reporting an estimated Average Glucose (eAG) with all Hemoglobin A1c results using the equation derived from a study of 507 normal and diabetic adults. Minority populations were underrepresented and children were not included. (Diabetes Care 31:0637-6052, 2008). The eAG is not equivalent to a fasting glucose. Testing performed by: [facility], [address] [place] [address], [place]., [address] Blood 09/24/2023 8:42 AM CDT 09/24/2023 9:06 AM CDT Marquita TARANGO - 09/24/2023 9:40 AM CDT PRE SURGERY TESTING ONLY us Sajan Pollard MD LAB BLOOD ORDERABL ES Final Result KELLEN [address] [facility] Department [place] [address] from Last 3 Months or Most Recently Relevant to Health Maintenance Insurance [facility] CHOICE PLUS [employer] OPEN ACCESS [employer] OPEN ACCESS Care Teams Quality Control Specialist Relationship Specialty Start Date End Date Chuck Nelson NP PCP - General 01/26/19 Christopher Nelson MD [address] [place] [id number] Consulting Physician General Surgery 09/30/23
--- OUTSIDE RECORDS SUMMARY | 2024-08-08 02:11 | XMS_ITS | Clinical Summary ---
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
--- OUTSIDE RECORDS SUMMARY | 2024-08-08 02:11 | XMS_ITS | Encounter Summary ---
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 [place] [phone] Eduar Hernandez MD [address] [facility] [address] [place] [address] MEDICATION REFILL Social History Tobacco Use Types [...] and heating? Not hard at all 02/24/2024 [facility] [place] of Occupat ional Health - Occupational Stress [...] things needed for daily living? No 02/24/2024 [place] Depression Scale Answer Date Recorded [place] Depression Scale Total 1 03/01/2024 The thought [...] time in the past 12 m [facility], were you homeless or living in a [facility] (including now)? Yes 02/24/2024 Estimated Date of [...] Info) Description 08/23/2024 1:15 PM CDT Appointment [facility] MATERNAL/ EVALUATION UNIT [address] [place] [address] 08/23/2024 2:15 PM CDT Appointment [facility] MATERNAL/ EVALUATION UNIT [facility] [place] [address] 08/23/2024 3:10 PM CDT Appointment [facility] MATERNAL/ EVALUATION UNIT [facility] [place] [address] 08/30/2024 1:00 PM CDT Appointment [facility] MATERNAL/ EVALUATION UNIT [address] [place] [address] 08/30/2024 1:30 PM CDT Appointment [facility] MATERNAL/ EVALUATION UNIT [address] [place] [address] 09/06/2024 1:00 PM CDT Appointment [facility] MATERNAL/ EVALUATION UNIT [address] [place] [address] 09/06/2024 1:30 PM CDT Appointment [facility] MATERNAL/ EVALUATION UNIT [address] [place] [address] documented as of this encounter Visit Diagnoses Diagnosis Pre-existing type 2 diabetes mellitus during , antepartum (HCC) Type 2 diabetes mellitus with stage 1 chronic kidney disease, with long-term current use of insulin (HCC) documented in this encounter Care Teams Retail Sales Consultant Relationship Specialty Start Date End Date Chuck Nelson APRN-EMILY [address] [place] [phone] PCP - General Nurse Practitioner 08/25/22 documented as of this encounter
--- OUTSIDE RECORDS SUMMARY | 2024-08-08 02:11 | XMS_ITS | Data Portability ---
Author Organization [facility] Address [address] [place] [address] [place] [address] Care Team Providers Care Underwriting Director Name Role Phone CHEN CRAIG Primary Care Provider Assessment Encounter Date Assessment Date Assessment LastModified by Organization Details LastModified Time 06/02/2024 06/02/2024 Patient is ___weeks . Discussed plan. Not available 06/02/2024 17:11:46 06/30/2024 06/30/2024 Patient is ___weeks . Discussed plan. Not available 06/30/2024 13:58:18 07/28/2024 07/28/2024 Patient is ___weeks . Discussed plan. Not available 07/28/2024 14:09:24 Plan of Treatment Reminders Order Date Submit Date Provider Last Modified By Organization Details Last Modified Time Details Appointments OB ROUTINE 2024 01:00P Raghavendra APONTE MD Not available Not available Not available Lab urinalysi s, dipstick 2024 025 [email or web address] [address], [address], [place], [address], 07/18/2024 17:16:15 Referral None recorded. Procedures None recorded. Surgeries None recorded. Imaging None recorded. Medication Orders None recorded. Patient TargetsNo targets recorded. Patient InstructionsNo instructions recorded. Reason for Referral None Reported. Results Created Date Observation Date Name Description Value Unit Range Abnormal Flag Note LastModifiedBy Organization Detail LastModifiedTime 07/19/1907/18/2024 WOMEN 'S HEALT H SWAB PLUS, COLLINS bacterial vaginosis (bv), tma Negati ve negati ve Not Available [facility] (Lab) [address] [place], [address], 07/19/2024 15:18:04 07/19/19 25 07/18/2024 WOMEN 'S HEALT H SWAB PLUS, COLLINS stephane species, tma Positi ve negati ve abnormal Not Available [facility] (Lab) [address] [facility], [place], [address], 07/19/2024 15:18:04 07/19/19 25 07/18/2024 WOMEN 'S HEALT H SWAB PLUS, COLLINS stephane glabrata, tma Negati ve negati ve Not Available [facility] (Lab) [address] [place], [address], 07/19/2024 15:18:04 07/19/19 25 07/18/2024 [facility] COLLINS trichomonas vaginalis, tma Negati ve negati ve Not Available [facility] (Lab) [address] [place], [address], 07/19/2024 15:18:04 07/19/19 25 07/18/2024 [facility], COLLINS chlamydia trachomatis, PCR Negati ve negati ve Not Available [facility] (Lab) [address] [place], [address], 07/19/2024 15:18:04 07/19/19 25 07/18/2024 WOMEN 'S HEALT H SWAB PLUS, COLLINS neisseria gonorrhoeae, PCR Negati ve negati ve Bacte rial vagin osis detec ts the follo wing bacte adam assoc iated with bacte rial vagin osis (BV): Lacto bacil cj (L. gasse ri, L. crisp atus and L. jense doyle), Gardn erell a vagin ken, and Atopo bium vagin ae. A singl e quali tativ e resul t is repor bisi base on instr ument softw are to deter mine BV posit wili or negat wili statu s. The [facility]ushila [facility] speci es group tests for C. albic ans, C. tropi calis , C. parap arti is, C. dubli niens is. Testi ng is perfo rmed using the Trans cript ion Media bisi Ampli ficat ion metho d. Tests for Sushila da glabr aníbal, Trich omona s vagin ken, Chlam ydia trach omati s, and Neiss eria gonor rhoea e are also inclu ded in this panel . Not Available [facility] (Lab) [address] [facility], [place], [address], 07/19/2024 15:18:04 07/19/19 25 07/18/2024 CULTU RE: URINE result report SEE RESULT S BELOW abnormal Test: Cultu re: Urine Speci men Sourc e: Urine - Clean Catch Speci men Type: Urine Speci men Date: 2024 1611 Resul t Date: 025 0203 Resul t Statu s: Final resul t Abnor mal: Yes Resul ting Lab: [facility] [address] [facility] [address] Tel: CULTU RE ----- ----- ----- --- Cultu re resul t (>=3 organ isms prese nt) indic ates possi ble conta minat ion. Repea t cultu re if sympt oms indic ate. >100, 000 CFU/m l Strep tococ cus agala ctiae (Grou p B) (Abno rmal) Strep tococ cus agala ctiae (Beta strep Group B Strep ) remai ns unive rsall y susce ptibl e to penic illin , cefaz danette and vanco mycin . If clind amyci n is being consi dered for intra partu m proph ylaxi s, pleas e conta ct the lab withi n 5 days. Not Available [facility] (Lab) [address] , [place], [address], 07/20/2024 03:06:58 07/19/19 25 07/18/2024 urina lysis , dipst ick Leukocytes POS Not Available [facility] [address], [place], [address], 07/18/2024 17:15:18 07/19/19 25 07/18/2024 urina lysis , dipst ick Nitrite NEG Not Available [place] [address], [place], [address], 07/18/2024 17:15:18 07/19/19 25 07/18/2024 urina lysis , dipst ick Urobilinogen NEG Not Available [facility] jasen [address], [place], [address], 07/18/2024 17:15:18 07/19/19 25 07/18/2024 urina lysis , dipst ick Protein POS Not Available [place] [address], [place], [address], 07/18/2024 17:15:18 07/19/19 25 07/18/2024 urina lysis , dipst ick pH 5 Not Available [place] [address], [place], [address], 07/18/2024 17:15:18 07/19/19 25 07/18/2024 urina lysis , dipst ick Blood Not Available [place] [address], [place], [address], 07/18/2024 17:15:18 07/19/19 25 07/18/2024 urina lysis , dipst ick Specific [place] 1.020 Not Available [facility] [address], [place], [address], 07/18/2024 17:15:18 07/19/19 25 07/18/2024 urina lysis , dipst ick Ketone POS Not Available [place] [address], [place], [address], 07/18/2024 17:15:18 07/19/19 25 07/18/2024 urina lysis , dipst ick Bilirubin NEG Not Available [facility] [address], [place], [address], 07/18/2024 17:15:18 07/19/19 25 07/18/2024 urina lysis , dipst ick Glucose POS Not Available [place] [address], [place], [address], 07/18/2024 17:15:18 07/19/19 25 07/18/2024 urina lysis , dipst ick Appearance CLOUDY Not Available Annie warren [address], [place], [address], 07/18/2024 17:15:18 07/19/19 25 07/18/2024 urina lysis , dipst ick Color YELLOW Not Available [place] [address], [place], [address], 07/18/2024 17:15:18 07/29/19 25 07/28/2024 HEMOG LOBIN (HGB) HGB 11.4 g/dL (based on docume nted legal sex) 11.6-1 5.4 low Not Available [facility] (Lab) [address], [place], [address], 07/29/2024 13:22:19 05/05/19 25 05/05/2024 US, rodney dooley, limit ed No observ ation record ed. [email or web address] [address], [place], [address], 05/05/2024 21:16:41 06/01/19 25 05/31/2024 US, obste tric, follo w-up No observ ation record ed. [facility] [address], [place], [address], 06/22/2024 11:58:36 06/29/19 25 06/28/2024 US, obste tric, follo w-up No observ ation record ed. [email or web address] [facility] [place] [address], [place], [address], 06/30/2024 00:17:48 07/28/19 25 07/26/2024 US, obste tric, follo w-up No observ ation record ed. [email or web address] [facility] [address], [place], [address], 08/02/2024 12:21:50 Result Notes None recorded. Problems Name Problem SNOMED Code Status Onset Date Resolution Date Notes Provider Name and Address Organization Details Recorded Time Finding of fertilit y Completed 201704/26/2020 Female infertil ity, unspecif ied;Prac sarath ID: 0001 Jorge Diaz [facility] 14:54:13 Dysuria 19464905 Completed 201704/26/2020 Dysuria; Practice ID: 0001 Jorge Diaz [facility] 14:54:28 Acute vaginiti s 23269135 Completed 201705/08/2020 Acute vaginiti s;Practi ce ID: 0001 Yadira Mckeon [facility] 12:09:31 Female genital organ symptoms 324508047 Completed 201104/26/2020 Unspecif ied symptom associat ed with female genital organs;R ecorded Elsewher e: No Locat ion: [facility] S ource: EHR Plc Technician ashlyn: N Practi ce ID: 0001 Ezio lable Time: 03:00:00 PM Jorge zamarripa, [facility] 14:54:25 Body mass index 30+ - obesity 252373180 Completed 201505/08/2020 Body mass index (BMI) 45.0-49. 9, adult;Re corded Elsewher e: No Locat ion: [facility] S ource: EHR Plc Technician ashlyn: N Miguel ce ID: 0001 Ezio lable Time: 05:30:00 PM Yadira zamarripa, [facility] 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 14:53:39 Syphilis test finding 105522788 Completed 201504/26/2020 Encntr screen for infectio ns w sexl mode of transmis s;Record ed Elsewher e: No Locat ion: [facility] S ource: EHR Plc Technician ashlyn: N Miguel ce ID: 0001 Ezio lable Time: 05:30:00 PM Jorge zamarripa, [facility] 14:53:43 Obesity 600502011 Completed 201305/08/2020 LD ASA per MFM Yadira zamarripa, [facility] 12:09:[address] Concept Completed 201704/26/2020 Encntr for general adult medical exam w/o abnormal findings ;Recorde d Elsewher e: No Locat ion: [facility] S ource: EHR Plc Technician ashlyn: N Miguel ce ID: 0001 Ezio lable Time: 08:30:00 AM [facility] 14:53:36 Screenin g for malignan t neoplasm of cervix Completed 201104/26/2020 Pap Smear;Pr actice ID: 0001 [facility] 14:53:52 Ill-defi meño intestin al infectio n Completed 201104/26/2020 No Show Fee;Prac sarath ID: 0001 Jorge Diaz [facility] 14:54:20 Amenorrh ea 70652382 Completed 201105/08/2020 AMENORRH EA;Pract ice ID: 0001 [facility] 12:09:33 Pregnanc y test negative 401152939 Completed 201104/26/2020 Negative Pregnanc y Test;Pra ctice ID: 0001 Jorge Diaz [facility] 14:53:57 Polycyst ic ovaries Completed 201305/08/2020 Polycyst ic ovaries; Practice ID: 0001 [facility] 12:09:44 Migraine 04283202 Completed 201305/08/2020 Migraine , unspecif ied without mention of intracta ble migraine ;Practic e ID: 0001 [facility] 12:09:40 Adult health examinat ion Completed 201404/26/2020 Routine general medical examinat ion at a health care facility ;Practic e ID: 0001 Rosasrina PinonJoe [facility] 14:54:37 Speciali zed medical examinat ion Completed 201404/26/2020 Other specifie d chlamydi al diseases ;Practic e ID: 0001 Jorge zamarripa [facility] 14:53:40 Venereal disease screenin g Completed 201404/26/2020 Screenin g examinat ion for venereal disease; Practice ID: 0001 Jorge zamarripa [facility] 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 14:53:34 Clinical finding Completed 201504/26/2020 Obesity, unspecif ied;Prac sarath ID: 0001 Jorge zamarripa [facility] 14:54:15 Severe obesity 56007797804 104 Completed 201504/26/2020 Morbid (severe) obesity due to excess calories ;Practic e ID: 0001 Jorge zamarripa [facility] 14:54:02 Primary amenorrh ea 450480978 Completed 201704/26/2020 Primary amenorrh ea;Pract ice ID: 0001 [facility] 14:53:54 Metaboli c syndrome X 700093653 Completed 201305/08/2020 Insulin resistan ce;Recor ded Elsewher e: No Locat ion: Saji sandoval [facility] S ource: EHR Plc Technician ashlyn: N Practi ce ID: 0001 Ezio lable Time: 09:45:00 AM Yadira [facility] 12:09:39 Infectio n screenin g Completed 201504/26/2020 Encounte r for screenin g for oth infec/pa rastc diseases ;Recorde d Elsewher e: No Locat ion: [place] lori [facility] S ource: EHR Plc Technician ashlyn: N Miguel ce ID: 0001 Ezio lable Time: 05:30:00 PM Jorge Diaz null, [facility] 1 14:54:11 Diabetes mellitus 15613013 Completed 201905/08/2020 type 2 Yadira Mckeon null, [facility] 1 12:09:37 Anxiety 26030400 Completed 201905/08/2020 Zoloft Yadira Mckeon [facility], [facility] 12:09:34 Abnormal cervical Papanico laou smear 625805458 Completed 201905/08/20202014 Yadira Mckeon [facility], [facility] 1 12:09:30 Pregnanc y 96989038 Completed 201905/08/2020 Nehal Armendariz [facility], [facility] 4 18:08:47 Type 2 diabetes mellitus 56232185 Completed Metformi n xr 2000mg qd Sent to [facility] for manageme nt- 05/16- NPH 26U AM/88U PM Increase 2 units when 1 consecut wili fasting >90 / Humalog 16U w/ bfast & 8Uw/ lunch & 32U w/ dinner. 6units with snack over 15g carbs. Nhi Reeves [facility], [facility] 13:40:41 Purpuric rash 101198398 Completed clotimaz ole/beta methazon e-Rxed Nhi Reeves [facility], [facility] 13:40:41 Obesity 697743821 Completed 2013 LD ASA per M Nhi Reeves [facility] null, [facility] 13:40:41 Marginal insertio n of umbilica l cord 36756786 Completed 2019 growth u/s Nhi Reeves [facility] null, [facility] 13:40:41 Dilatati on of renal pelvis 463966763 Completed - bilatera l - growth u/s Nhi Arananolvia hl null, [facility] 13:40:41 Anxiety 96930970 Completed 2019 Zoloft Nhi Arananolvia hl null, [facility] 13:40:41 Pre-exis ting type 2 diabetes mellitus in pregnanc y 982782078 Completed 2020 DELIVER BY 37- not well controll ed. MFM may rec earlier. Nhi Reeves hl null, [facility] 13:40:41 Pre-exis ting type 2 diabetes mellitus in pregnanc y 951415874 Completed 202005/08/2020 Yadira Mckeon null, [facility] 12:09:45 Large for gestatio n age fetus 804445571 Completed potentia l 89% 05/11 Nhi Aarnanolvia hl null, [facility] 13:40:41 Pregnanc y 94234750 Active 2023 Nehal Armendariz null, [facility] 4 18:08:47 Type 2 diabetes mellitus 84138050 Active managed by MFM Sched [facility] 05[facility]10 [facility] 06/28 US and office visit Consult 08/03/24 NST & US 08/23/24 1:15PM to start 2xwkly antenata l testing at 32wks confirm if pt schedule MFM or our office? Jenni Diaz null, [facility] 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 5 13:09:37 Group B Streptoc occus carrier 62752181495 03 Active + GBS in urine Jenni zamarripa, [facility] 5 13:09:37 Problem Notes None recorded. Procedures Surgical History Date Name Laterality Status Provider Name and Address Organization Details Recorded Time 03/01/20 24 Date of Last Pap Smear completed Nehal Marcello [facility] 04/07/2024 18:07:50 09/02/19 23 IUD Removal completed Dante Aponte MD [address], [place], [address], [facility] 09/01/2022 22:15:29 05/19/19 23 Colposcopy completed Dante Aponte MD [address], [place], [address], [facility] 05/19/2022 15:31:57 05/19/19 23 Colposcopy completed Alva Kimble [facility] 03/09/2023 16:31:33 05/19/19 23 Colposcopy completed Sarah Jordan [facility] 05/19/2022 14:35:43 07/28/19 22 IUD Insertion completed Dante Aponte MD [address], [place], [address], [facility] 07/27/2021 12:17:49 05/22/19 21 NST completed Bel Dennison MD [address], [place], [address], [facility] 05/22/2020 14:09:48 01/26/20 21 NST completed Bel Dennison MD [address], [place], [address], [place] [facility] 05/15/2020 13:43:28 04/27/19 21 NST completed Bel Dennison MD [address], [place], [address], [facility] 04/27/2020 12:17:14 04/20/19 15 Tonsillectomy completed Alva Kimble [facility] 11/09/2019 16:35:35 Imaging Results Imaging Date Name Status LastModified by Organiz ation Details LastModified Time 05/05/2024 US, obstetric, limited completed [email or web address] [address], [place], [address], 05/05/2024 21:16:41 05/31/2024 US, obstetric, follow-up completed [email or web address] [facility] [address] [place] [address], [address], 06/22/2024 11:58:36 06/28/2024 US, obstetric, follow-up [email or web address] [address] [place] [address], [address], 06/30/2024 00:17:48 07/26/2024 US, obstetric, follow-up completed [id number] [facility] [address] [place] [address], [address], 08/02/2024 12:21:50 Procedure Notes None recorded. Medical Equipment None Reported. Allergies Allergen ID Allergen Name Allergen Category Reaction Reaction Severity Criticality Documentation Date Start Date Code Code System Note Provider Name and Address Organization Details Recorded Time 1407 lisinopri l medicatio n rash Not available Not available 11/09/2019 95787 RxNorm Alva Kimble null, [facility] 0 11:13:14 Medications Name Sig Start Date Stop Date Status Note LastModified by Organization Details LastModified Time amoxicill in 500 mg capsule TAKE 1 CAPSULE BY MOUTH EVERY 8 HOURS DIRECTED FOR 5 DAYS active Not Available Not Available No t Available Mirena 21 mcg/24 hr (up to 8 [...] TABLET BY MOUTH A ONE TIME DOSE 07/28 completed Not Available Not Available Not Available [...] morning and evening meals 01/11 completed Prescrib florecita Simental e: Yes Loca tion: Saji sandoval [facility] M odify By: [email or web address] Sandoval ncounter DateTime : 02/13/20 03:00:00 PM Not Available Not Available Not [...] Prescrib ed Elsewher e: No Locat ion: Madina lori [facility] odify By: dmrose E ncounter DateTime : 02/03/20 18 02:19:49 PM [...] TAKE 2 TABLETS BY MOUTH ONCE DAILY 07/28 completed Not Available Not Available Not Available [...] the morning and evening 11/20 completed Prescrib ed Elsewher e: No Locat ion: Saji sandoval [facility] odify By: [email or web address] Encounte r DateTime : 10/14/19 19 08:30:00 AM Not Available Not Available Not [...] to the affected area(s) 06/17 completed Prescrib ed Elsew e: No Locat ion: [facility] odify By: karine calix DateTime : 05/21/19 [...] . MAX TOTAL DAILY DOSE 20 UNITS. 07/28 completed Not Available Not Available Not Available nitrofura ntoin monohydra te/macroc rystals 100 mg capsule TAKE 1 CAPSULE BY MOUTH EVERY 12 HOURS FOR 7 DAYS 07/28 completed Not Available Not Available Not Available [...] route every day 08/19 completed Prescrib ed Elsewher e: No Locat ion: Saji sandoval [facility] odify By: [email or web address] araceli Small counter DateTime : 01/16/20 12 03:00:00 PM Not Available Not Available Not Available Lantus Solostar U-100 Insulin 100 unit/mL (3 mL) subcutane ous pen INJECT 18 UNITS SUBCUTAN EOUSLY IN THE MORNING AND 18 AT BEDTIME TAKE DOSAGES ABOUT 12 HOURS APART, INCREASE DOSE DIRECTED DUE TO INCREASI NG INSULIN REQUIREM ENTS DURING PREGANCY . MAX TOTAL DAILY DOSE OF 50 UNITS. active Not Available Not Available [...] the morning and evening 02/12 completed Prescrib ed Elsewher e: No Locat ion: Saji sandoval [facility] odify By: claire kearns DateTime : 06/07/19 16 01:29:48 PM Not Available Not Available Not [...] USE 1 PEN NEEDLE FIVE TIMES DAILY 07/28 completed Not Available Not Available Not Available [...] M-Raz Plus 27 mg iron-1 mg tablet TAKE 1 TABLET BY MOUTH ONCE DAILY FOR 30 DOSES active Not Available Not Available No t Available OneTouch Delica Plus Lancet 33 gauge USE 1 TO CHECK GLUCOSE 4 TIMES DAILY FASTING AND 1 HOUR AFTER MEALS 04/07 completed Not Available Not Available Not Available Baqsimi 3 mg/actuat ion nasal spray USE 1 SPRAY(S) INTO NOSTRIL NEEDED active Not Available Not Available No t Available FreeStyle Herrera 2 [place] 07/06 completed Not Available Not Available Not [...] 100 unit/mL (3 mL) subcutane ous INJECT 16 UNITS IN THE MORNING AND BEDTIME. TAKE DOSES APPROXIM ATELY 12 HOURS APART. INCREASE DOSE DIRECTED DUE TO INCREASI NG INSULIN REQUIREM ENTS DURING PREGNANC Y. MAX DAILY DOSE 50 [...] Sensor device USE DIRECTED FOR 10 DAYS 07/28 completed Not Available Not Available Not Available Vitals Date Recorded Body weight Systolic blood pressure Diastolic blood pressure Provider Name and Address Organization Details Last Updated DateTime 06/02/2024 647327.506 14 g 113 mm[Hg] 78 mm[Hg] [facility] 06/02/2024 17:14:25 Date Recorded Body weight Systolic blood pressure Diastolic blood pressure Provider Name and Address Organization Details Last Updated DateTime 06/30/2024 062303.652 73 g 110 mm[Hg] 71 mm[Hg] [facility] 06/30/2024 13:59:07 Date Recorded Body height Body mass index (BMI) Body weight Systolic blood pressure Diastolic blood pressure Provider Name and Address Organization Details Last Updated DateTime 07/18/2024 158.75 cm 41.6 kg/m2 435687.8 4 g 116 mm[Hg] 75 mm[Hg] DIANEHolger Navarro [facility] 16:59:47 Date Recorded Body height Body mass index (BMI) Body weight Systolic blood pressure Diastolic blood pressure Provider Name and Address Organization Details Last Updated DateTime 07/28/2024 158.75 cm 41.6 kg/m2 854433.8 4 g 128 mm[Hg] 80 mm[Hg] [facility] 14:13:17 Social History Question Answer Notes LastModified by Organizat ion Details LastModified Time Tobacco Smoking Status Never Smoker Alva zamarripa [facility] 11/09/2019 16:27:58 What Is Your Level Of Alcohol Consumption? Occasional [email or web address] Information not available 11/09/2019 Are You Blind Or Do You Have Difficulty Seeing? No [email or web address] Information not available 03/09/2023 What Is Your Level Of Caffeine Consumption? Occasional [email or web address] Information not available 03/09/2023 In The 14 Days Before Symptom Onset, Have You Had Close Contact With A Laboratory-confir med COVID-19 While That Case Was Ill? No [email or web address] Information not available 03/09/2023 In The 14 Days Before Symptom Onset, Have You Had Close Contact With A Person Who Is Under Investigation For COVID-19 While That Person Was Ill? No [email or web address] Information not available 03/09/2023 Have You Been To An Area Known To Be High Risk For COVID-19? No [email or web address] Information not available 03/09/2023 Are You Deaf Or Do You Have Serious Difficulty Hearing? No Information not available 03/09/2023 What Type Of Diet Are You Following? [email or web address] Information not available 03/09/2023 Which Illicit Or Recreational Drugs Have You Used? [place] Information not available 11/09/2019 Do You Or Have You Ever Used E-cigarettes Or Vape? Never Used Electronic Cigarettes [email or web address] Information not available 11/09/2019 What Was The Date Of Your Most Recent Tobacco Screening? 03/09/2023 [email or web address] Information not available 03/09/2023 Do You Use Your Seat Belt Or Car Seat Routinely? Yes Information not available 03/09/2023 Do You Have Smoke And Carbon Monoxide Detectors In Your Home? Yes [email or web address] Information not available 03/09/2023 Do You Or Have You Ever Used Smokeless Tobacco? Never Used Smokeless Tobacco [email or web address] Information not available 11/09/2019 How Much Tobacco Do You Smoke? No [email or web address] Information not available 11/09/2019 Do You Feel Stressed (tense, Restless, Nervous, Or Anxious, Or Unable To Sleep At Night)? [id number] [email or web address] Information not available 03/09/2023 Do You Use Sunscreen Routinely? Yes [email or web address] Information not available 03/09/2023 Sex: Unknown Functional Status Question Answer Note LastModified by Organizat ion Details LastModified Time Do you have difficulty walking or climbing stairs? No [email or web address] Information not available 03/09/2023 Are you able to walk? [email or web address] Information not available 03/09/2023 Are you able to care for yourself? Yes [email or web address] Information not available 03/09/2023 Do you have difficulty dressing or bathing? No [email or web address] Information not available 03/09/2023 What is your exercise level? Occasional [email or web address] Information not available 11/09/2019 Mental Status None recorded. Family History Relationship Description Onset Age of this Age Resolved Age Notes LastModified by Organization Details LastModified Time Maternal Grandmother Diabetes mellitus [email or web address] Not available 11/08 16:27:24 Maternal Aunt Diabetes mellitus [email or web address] Not available 11/08 16:27:24 Maternal Aunt Malignant tumor of cervix [email or web address] Not available 11/08 16:27:36 Maternal Aunt Malignant tumor of breast [email or web address] Not available 11/08 16:27:47 Medical History Condition Response Allergies (Food, seasonal, environmental ) Y Other N Breast Cancer N Drug/Latex Allergies/Reactions Y Blood Transfusion N Lung Disease N Dermatologic Disorders N Defects or Inherited Disease N Breast Problem N Gestational Diabetes N Hematologic disorders N Anesthesia Complications N History of STI Y Deep Vein Thrombosis N Polycystic ovary syndrome Y Anxiety Disorder Y Autoimmune disease N Arthritis N Polyps N Infertility N History of abnormal pap Y Acid Reflux (GERD) Y Cancer N Varicosities N Stroke N Neurologic/Epilepsy N Endometriosis N High Cholesterol Y Fibromyalgia N Headaches N Kidney Disease N Heart Problems N Kidney or Bladder Problems N Thyroid Problems N GI Problems N Eating Disorder [...] SNOMED-CT Code Diagnosis ICD10 Code Diagnosis Note [id number] Franci Wyman [facility] [address],[place] [address] 11/09/2019 10:35:05 11/09/2019 12:09:[id number] [facility] [address],[place] [address] 11/09/2019 10:36:18 11/09/2019 13:42:01 [id number] Dante Aponte MD [facility] [address],[place] [address] 12/09/2019 10:39:11 12/09/2019 12:29:37 screening 668061611 Z36.82 Z36.0 Z36.89 Pruritic rash 74619179 L 28.2 Routine an tenatal care 741390172 Z34.[address] [facility] [address],[place] [address] 12/09/2019 10:39:39 12/09/2019 11:48:03 screening 002081351 Z36.82 Z36.0 Z36.89 [id number] Dante Aponte MD [facility] [address],[place] [address] 01/06/2020 11:18:19 01/06/2020 12:48:28 Gestational diabetes mellitus class A2 37271477 O24.[id number] [facility] [address],[place] [address] 01/06/2020 11:18:55 01/06/2020 14:59:[id number] [facility] [address],[place] [address] 02/03/2020 09:30:52 02/03/2020 12:31:48 screening for malformation 055881891 Z36.3 [id number] Franci Wyman [facility] [address],[place] [address] 02/03/2020 09:31:14 02/03/2020 13:25:47 Routine care 399489529 Z34.92 [id number] Dante Aponte MD [facility] [address],[place] [address] 02/24/2020 14:40:59 02/24/2020 16:52:22 Headache 44128020 R51.9 Anxiety [address]183 F41.[id number] [facility] [address],[place] [address] 03/02/2020 09:24:54 03/02/2020 10:41:38 screening 133978015 Z36.2 O35.8XX0 O43.92 O24.112 Z3A.24 [id number] Franci Wyman [facility] [address],[place] [address] 03/02/2020 09:25:14 03/02/2020 10:41:22 Routine care 397318701 Z34.92 [id number] Franci Wyman [facility] [address],[place] [address] 03/30/2020 12:05:24 03/30/2020 14:10:47 Routine care 743250530 Z34.92 [id number] Bel Dennison MD [facility] [address],[place] [address] 04/11/2020 13:45:33 04/11/2020 14:43:39 Pre-existing type 2 diabetes mellitus in 980890200 O24.119 [id number] Bel Dennison MD [facility] [address],[place] [address] 04/27/2020 11:06:25 04/27/2020 12:38:33 Pre-existing type 2 diabetes mellitus in 077754549 O24.119 [id number] Nhi Reeves [facility] [address],[place] [address] 04/27/2020 11:06:44 04/27/2020 12:43:55 Gestational diabetes mellitus class A2 61427221 O24.414 [id number] Nhi Reeves [facility] [address],[place] [address] 05/01/2020 11:25:52 05/01/2020 12:33:58 Gestational diabetes mellitus class A2 66835268 O24.414 [id number] Dante Aponte MD [facility] [address],[place] [address] 05/01/2020 11:27:17 05/01/2020 12:39:16 Routine care 866444291 Z34.01 [id number] Nhi Reeves [facility] [address],[place] [address] 05/08/2020 11:29:34 05/08/2020 12:15:11 Gestational diabetes mellitus class A2 28831644 O24.414 [id number] Grazyna Cookjerrod [facility] [address],[place] [address] 05/08/2020 11:30:35 05/08/2020 12:42:05 Routine care 022830787 Z34.93 [id number] Nhi Reeves [facility] [address],[place] [address] 05/15/2020 11:29:25 05/15/2020 12:47:10 Gestational diabetes mellitus class A2 81690586 O24.414 [id number] Bel Dennison MD [place] [address],[place] [address] 05/15/2020 11:30:12 05/15/2020 14:05:54 Pre-existing type 2 diabetes mellitus in 913746266 O24.119 [id number] Nhi Reeves [facility] [address],[place] [address] 05/22/2020 11:36:06 05/24/2020 16:00:09 Gestational diabetes mellitus class A2 72886690 O24.414 [id number] Bel Dennison MD [place] [address],[place] [address] 05/22/2020 11:37:01 05/23/2020 11:05:33 Pre-existing type 2 diabetes mellitus in 006634151 O24.119 Reduced fe sven movement 225568362 O36.8199 06605 Bailee Hernandez [facility] [address],[place] [address] 05/22/2020 12:11:38 05/24/2020 11:07:14 condition affecting obstetrical care of mother 991356966 O36.8330 11971 Dante Aponte MD [facility] [address],[place] [address] 07/06/2020 15:53:54 07/06/2020 16:45:54 Anxiety 98968168 F41.9 care 40146407 8 Z39.0 Patient is a 29-year-ol d [...] sertraline . She will in 1 month. [id number] Dante Aponte MD [facility] [address],[place] [address] 07/27/2021 11:51:04 07/27/2021 12:18:19 Contraception care management 828849676 Z30.9 IUD was inserted without complicati ons. Insertion of intrauterine contraceptive device 04600222 Z30.430 [id number] Dante Aponte MD [facility] [address],[place] [address] 04/25/2022 10:39:12 04/25/2022 13:43:15 Gynecologic examination 42098712 Z01.419 Annual gynecologi amy exam performed. Patient [...] have any questions please call or email. Cholestero l - done Pap - today [id number] Dante Aponte MD [facility] [address],[place] [address] 05/19/2022 13:54:03 05/19/2022 15:37:59 Dysplasia of cervix 68852667 N87.9 colposcopi c examinatio n was performed and biopsies were performed. Three biopsies and an ECC were performed and she tolerated it well. [id number] Dante Aponte MD [facility] [address],[place] [address] 09/01/2022 16:33:00 09/02/2022 14:30:51 Vulval irritation 614185337 N90.89 Contracept ion care management 682024862 Z30.9 IUD was inserted without complicati ons. Urinary tr act infectious disease 26260906 N39.0 patient reported urinary symptoms. [id number] BLAKE Vaughn [facility] [address],[place] [address] 03/09/2023 16:32:50 03/10/2023 09:09:00 Contraception care management 979733702 Z30.9 Discussed all BC methods in-depth, r/b/a reviewedco nsidering ParaGuard IUD, if desired RTC with next period for insertione ncouraged to check insurance for coveragesh e would like to [facility] options in [facility] detail. [...] counseling and review of plan of care. [id number] JOELLE MCLEAN MD [facility] [address] [address] 05/13/2023 12:18:10 05/14/2023 08:54:53 Vaginitis 15399299 N76.0 - swab sent, follow up on results as available [facility] management 056653130 Z30.9 - unhappy with slynd, would like Paraguard IUD placement- patient to call with next period for placement Recurrent urinary tract infection 343163486 N39.0 - patient to call for urine culture if symptoms recur, currently resolved- consider postcoital or daily ppx if recurrent [id number] Dante Aponte MD [facility] [address] [address] 02/22/2024 10:09:21 02/22/2024 12:07:46 Ectopic 36312376 O00.90 this patient is a 33-year-ol d [...] feel is less likely, however, would like M confirmati on. MFM also needs to address her type 1 diabetes. She is currently using metformin and GLP 1 agonist. Needs to transition to insulin. To arrange MFM consult by the end of the week. this problem has marked complexity [id number] [facility] [address],[place] [address] 02/22/2024 10:52:45 02/22/2024 11:37:21 Low back pain in 4055469362 106 O26.8[id number] [facility] [address],[place] [address] 04/07/2024 16:30:33 04/07/2024 17:49:14 screening 233351463 Z36.82 Z3A.12 [id number] Dante Aponte MD [place] [address],[place] [address] 04/07/2024 16:31:11 04/08/2024 09:39:28 Gestation period, 12 weeks 38547852 Z3A.12 [id number] Dante Aponte MD [place] [address],[place] [address] 05/05/2024 16:13:19 05/05/2024 17:37:[id number] [facility] [address],[place] [address] 05/05/2024 17:30:23 05/05/2024 17:49:36 [id number] Dante Aponte MD [place] [address],[place] [address] 06/02/2024 16:32:48 06/02/2024 17:33:53 Routine care 886921080 Z34.01 [id number] Dante Aponte MD [place] [address],[place] [address] 06/30/2024 13:38:23 06/30/2024 14:25:45 Routine care 013265334 Z34.01 [id number] JOELLE MCLEAN MD [facility] [address],[place] [address] 07/18/2024 16:43:22 07/18/2024 17:20:55 Vaginitis 74867313 N76.0 - tried OTC monistat without relief- swab sent, follow up on results as available [id number] Dante Aponte MD [facility] [address] [address] 07/28/2024 13:50:41 07/28/2024 15:00:44 Routine care 004550313 Z34.01 Health Concerns Section Related Observation LastModified by Organization Detai ls LastModified Time None Recorded Concern Status LastModified by Organization Details LastModified Time None Recorded Advance Directives Directive None Recorded Payers Encounter Date Sequence Insurance Name Policy Number Policy Goddard Covered Member ID Goddard Member ID Guarantor Name 06/02/2024 1 [employer] - ALLIED BENEFITS - OPEN ACCESS Yasmeen Ny [id number] Yasmeen Ny 06/02/2024 2 [facility] - DOS ON OR AFTER 20 (MEDICAID REPLACEMENT - HMO) Yasmeen Ny [id number] Yasmeen Ny 06/30/2024 1 [employer] - ALLIED BENEFITS - OPEN ACCESS Yasmeen Ny [id number] Yasmeen Ny 06/30/2024 2 [facility] - DOS ON OR AFTER 20 (MEDICAID REPLACEMENT - HMO) Yasmeen Ny [id number] Yasmeen Ny 07/18/2024 1 [employer] - ALLIED BENEFITS - OPEN ACCESS Yasmeen Ny [id number] Yasmeen Ny 07/18/2024 2 [facility] - DOS ON OR AFTER 20 (MEDICAID REPLACEMENT - HMO) Yasmeen Ny [id number] Yasmeen Ny 07/28/2024 1 [employer] - ALLIED BENEFITS - OPEN ACCESS Yasmeen Ny [id number] Yasmeen Ny 07/28/2024 2 [facility] - DOS ON OR AFTER 20 (MEDICAID REPLACEMENT - HMO) Yasmeen Ny [id number] Yasmeen Ny Notes Date Note Type Note Provider Name and Address Organization Details Recorded Time 07/18/2024 text/html Patient presents for vaginitis symptoms since Thursday. Reports itching, burning, soreness. Denies abnormal discharge. No cramping. Tried OTC monistat without relief. JOELLE MCLEAN MD [address], [place], [address], [place] - [facility] 07/18/2024 17:17:13 OBGyn Episode Ob Episode Information Episode Created Date Number of Fetuses Patient Bloodtype Patient rh Status Prepregnancy Weight lbs Domestic Partner Domestic Partner Phone Father Name Seconds Grader Status 12/09/19 20 1 A Positive 226 CLOSED Fetus Data First Name Last Name Admitted to NICU Weight (g) Sex Living Outcome Pediatric Complications Fetus ID Race Codes Race Delivery Type 3203.49 35 M true Full Term 3938 Vaginal Delivery Problems Problem Notes [facility] - 03/28 - Recommendations : 162mg ASA daily, echo, A1C q trimester, baseline 24 hr TP, 2x/wk NST and weekly BPP @ 32 wks. ECHO - Scheduled 04/19- Normal record in chart [facility] 05/16 PURCHASER/DE 10:30am - *WILL REQUIRE INSULIN DRIP DURING LABOR/DECREASE BY 50% IN *[facility] - next appt 05/23 PURCHASER/DE/US Problem Name Start Date End Date Resolution Snomed Code Not e Purpuric rash 859911027 clotim azole/betametha zone-Rxed Type 2 diabetes mellitus 68905937 Metformin xr 20 00mg qdSent to [facility] for management- 05/16-NPH 26U AM/88U PM Increase 2 units when 1 consecutive fasting >90 / Humalog 16U w/ bfast & 8Uw/ lunch & 32U w/ dinner. 6units with snack over 15g carbs. Obesity 08/19/2013 117141828 LD ASA pe r MFM Marginal insertion of umbilical cord 02/03/2020 07039651 growth u/s Dilatation of renal pelvis - bilater al - growth u/s Anxiety 11/09/2019 54576560 Zoloft Pre-existing type 2 diabetes mellitus in 04/27/2020 485279054 DELIVER BY 37- not well controlled. MFM may rec earlier. Large for gestation age fetus 217353458 potential 89% Rajeev Calculation Initial Rajeev Date [...] Weight in lbs Pre/Post Dialysis Refused Weight 230.143559688065 BP Diastolic BP Location Tested BP Systolic [...] Weight in lbs Pre/Post Dialysis Refused Weight 237.875990210346 BP Diastolic BP Location Tested BP Systolic [...] Weight in lbs Pre/Post Dialysis Refused Weight 242.009500977032 BP Diastolic BP Location Tested BP Systolic [...] Weight in lbs Pre/Post Dialysis Refused Weight 249.672837961411 BP Diastolic BP Location Tested BP Systolic [...] Weight in lbs Pre/Post Dialysis Refused Weight 249.081366827851 BP Diastolic BP Location Tested BP Systolic [...] Weight in lbs Pre/Post Dialysis Refused Weight 256.452470707111 BP Diastolic BP Location Tested BP Systolic [...] Weight in lbs Pre/Post Dialysis Refused Weight 259.211349538757 BP Diastolic BP Location Tested BP Systolic BP Type 80 125 Fetus Heart Rate Present A 145 Fetus Movement A Yes Comments 2+glucose. Ran out of insuli n for 3 days. Back on now. Sugars per MFM. On Nph and lispro 8/0. NSTs scheduled here. Encouraged Tdap and flu, [...] Weight in lbs Pre/Post Dialysis Refused Weight 263.070442207149 BP Diastolic BP Location Tested BP Systolic [...] Weight in lbs Pre/Post Dialysis Refused Weight 268.168350826298 BP Diastolic BP Location Tested BP Systolic [...] Weight in lbs Pre/Post Dialysis Refused Weight 266.715126728475 BP Diastolic BP Location Tested BP Systolic [...] Weight in lbs Pre/Post Dialysis Refused Weight 269.185544348619 BP Diastolic BP Location Tested BP Systolic BP Type 85 128 Fetus Heart Rate Present A 145 Fetus Movement A Yes Comments 3+glucose- continuous glucos e monitoring shows spike to about 190 after breakfast of oatmeal and empanadas. Overall not well controlled as far as we know, MFM managing. Delivery by 38-39 weeks, M has indicated maybe earlier. Will contact them [...] Weight in lbs Pre/Post Dialysis Refused Weight 272.044496801463 BP Diastolic BP Location Tested BP Systolic [...] baseline, spontaneous. BPP in office 6/8. To [facility] for extended monitoring. I discussed her case with Dr Baez [facility]. SHe recommends to deliver at 37 weeks if extended monitoring ok. If any further significant decels or BPP less than 6/8, then immediate delivery. Pt sent to [facility]. GBS done today. Cervix closed but soft. [...] Estim ated Date of Delivery false Thalassemia (Turkish, Kittitian, Mediterranean, Or Background): MCV < 80 false Neural Tube Defect (Meningomyelocele, Spina Bifi da, Or Anencephaly) false Congenital Heart Defect false Down Syndrome false Tyrell-Sachs (eg, Buddhist, Cajun, Lithuanian-Burmese) f alse Kodak Disease false Sickle Cell Disease Or Trait () false Hemophilia Or Other Blood Disorders false Muscular Dystrophy false Cystic Fibrosis false [place] Chorea false Intellectual Disability/Autism false If Yes, [...] Domestic Partner Domestic Partner Phone Father Name Seconds Grader Status 04/07/20 24 1 A Positive OPEN Fetus Data First Name Last Name Admitted to NICU Weight (g) Sex Living Outcome Pediatric Complications Fetus ID Race Codes Race Delivery Type 53521 Problems Problem Notes Problem Name Start Date End Date Resolution Snomed Code Not e Type 2 diabetes mellitus 79744274 managed by [facility] and office visitConsult 08/03/24NST & US 08/23/24 1:15PM to start 2xwkly testing at 32wks confirm if pt schedule [facility] or our office? Group B Streptococcus carrier [id number] + GBS in urine Rajeev Calculation Initial Rajeev Date Initial Exam [...] Gestation 0 [email or web address] 04/07/2024 10/20/19 25 0 Pre-raz Flowsheet Flowsheet Date 04/07/2024 Alonso Score Blood Edema Fundus Height Fundus Units Glucose Ketones Leukocytes Nitrite Labor Signs Protein Cervic Dilation Cervic Effacement Cervic Station Type Weight in lbs Pre/Post Dialysis Refused Weight 209.272439252756 BP Diastolic BP Location Tested BP Systolic [...] Type Weight in lbs Pre/Post Dialysis Refused 217.500830853816 BP Diastolic BP Location Tested BP Systolic [...] Type Weight in lbs Pre/Post Dialysis Refused 222.20759928034 BP Diastolic BP Location Tested BP Systolic [...] Type Weight in lbs Pre/Post Dialysis Refused 229.809321305607 BP Diastolic BP Location Tested BP Systolic BP Type 71 L arm 110 sitting Fetus Heart Rate Present A 150 Fetus Movement A Yes Comments no complaints, no problems, routine care, no contractions, no vaginal bleeding, no loss of fluid, no cramping Flowsheet Date 07/18/2024 Alonso Score Blood Edema Fundus Height Fundus Units Glucose Ketones Leukocytes Nitrite Labor Signs Protein Cervic Dilation Cervic Effacement Cervic Station none Type Weight in lbs Pre/Post Dialysis Refused Weight 231.747666959171 BP Diastolic BP Location Tested BP Systolic BP Type 75 L arm 116 sitting Fetus Heart Rate Present A 150 Fetus Movement A Yes Comments problem visit, vaginitis. Se e note. Flowsheet Date 07/28/2024 Alonso Score Blood Edema Fundus Height Fundus Units Glucose Ketones Leukocytes Nitrite Labor Signs Protein Cervic Dilation Cervic Effacement Cervic Station Type Weight in lbs Pre/Post Dialysis Refused Weight 231.936129228131 BP Diastolic BP Location Tested BP Systolic BP Type 80 L arm 128 sitting Fetus Heart Rate Present A 144 Present Fetus Movement A Yes Comments no complaints, no problems, routine care, no contractions, no vaginal bleeding, no loss of fluid, no cramping We discussed her blood sugar control, we discussed her MFM follow-up, we discussed testing. She is getting her 28 week labs today, minus the diabetes testing. Menstrual History Last Menstrual Date Menses Monthly [...]
--- OUTSIDE RECORDS SUMMARY | 2024-08-08 02:12 | XMS_ITS | Data Portability ---
Author Organization Vanna ROMERO Address [address] [place] [address] Care Team Providers Care Prison Guard Supervisor Name Role Phone [facility] Desktop Support Consultant CHUCK CRAIG Primary Care Provider [phone] Assessment No assessment recorded. Plan of Treatment Reminders Order Date Submit Date Provider Last Modified By Organization Details Last Modified Time Details Appointments None recorded. Lab test, urine 2023 024 singh In-Office Order, Internal Use Only DO Not Attach Compendium DO Not Attach Compendium, Do Not Delete/merge, [id number] 13:09:24 lipid panel, serum 2023 024 singh [facility], [address] [place] [address], [address], [place], [address], 4 11:40:06 CBC w/ auto diff 2023 024 [employer] [facility], [address] [place] [address], [address], [place], [address], 4 11:40:06 amylase + lipase, serum 2023 024 [employer] [facility], [address] [place] [address], [address], [place], [address], 4 11:40:06 Referral None recorded. Procedures None recorded. Surgeries None recorded. Imaging None recorded. Medication Orders aspirin 81 mg tablet,orly rodriguezd release 2023 [facility], [facility] [place], [address], 13:20:45 atorvastati n 20 mg tablet 2023 [facility], [address] [place] [address], [address], 13:20:49 spironolact one 100 mg tablet 2023 [facility], [address] [place] [address], [address], 4 13:20:46 nystatin 100,000 unit/gram topical powder 2023 [facility], [address] [place] [address], [address], 13:20:47 phentermine 37.5 mg tablet 2023 [facility], [facility] [place], [address], 13:20:56 escitalopra m 20 mg tablet 2023 [facility], [facility] [place], [address], 13:20:49 metformin 1,000 mg tablet 2023 024 [facility], [address] [place] [address], [address], 4 13:20:44 Mounjaro 10 mg/0.5 mL subcutaneou s pen injector 2023 024 [facility] [address], [address] [place] [address], [address], 13:20:48 fluticasone propionate 50 mcg/actuati on nasal spray,suspe nsion 2023 024 [facility], [address] [place], [address], 4 13:20:46 montelukast 10 mg tablet 2023 024 [facility], [address] [place] [address], [address], 13:20:49 phentermine 37.5 mg tablet 2023 [facility], [address] [place] [address], [id number], 18:24:29 phentermine 37.5 mg tablet 2023 [facility], [address] [place] [address], [address], 15:30:16 triamcinolo ne acetonide 0.1 % topical cream 2023 [facility], [address] [place] [address], [address], 15:30:14 Patient TargetsNo targets recorded. Patient Instructions Encounter Date Encounter Id Patient Instructions Last Modified By Organization Details Last Modified Time 09/03/2023 [id number] A healthy lifestyle: care instructions [email or web address] Not available 09/03/2023 13:09:22 body mass index: care instructions yarauz Not available 09/03/2023 13:09:22 learning about healthy weight yarauz Not available 09/03/2023 13:09:[address] op phentermine for now till after surgery continue present meds yarauz Not available 09/03/2023 17:56:58 11/02/2023 [id number] body mass index: care instructions yarauz Not [...] Rx yarauz Not available 11/02/2023 15:13:42 12/14/2023 [id number] When You Want to Lose Weight: Care [...] Rx yarauz Not available 12/14/2023 12:51:59 02/05/2024 [id number] learning about endovenous ablation for varicose veins [...] DO Not Attach Compendium, Do Not Delete/merge, [id number] 08/20/2023 11:59:00 08/20/19 24 08/20/2023 HbA1c (hemo globi n A1c), blood HbA1c 6.6 Not Available In-Office Order Internal Use Only DO Not Attach Compendium DO Not Attach Compendium, Do Not Delete/merge, [id number] 08/20/2023 11:58:59 09/01/19 24 09/02/2023 LIPID PANEL cholesterol, total 175 mg/dL 100-19 9 Not Available [facility] ([facility]) [address] [facility], [place], [address], 09/02/2023 11:15:38 09/01/19 24 09/02/2023 LIPID PANEL triglyceride s 199 mg/dL 0-149 above high normal Not Available [facility] ([facility]) [address] [facility] [place] [place], [address], 09/02/2023 11:15:38 09/01/19 24 09/02/2023 LIPID PANEL HDL cholesterol 32 mg/dL >39 below low normal Not Available [facility] ([facility]) [address] [facility], [place], [address], 09/02/2023 11:15:38 09/01/19 24 09/02/2023 LIPID PANEL VLDL cholesterol amy 35 mg/dL 5-40 Not Available [facility] ([facility]) [address] [place], [address], 09/02/2023 11:15:38 09/01/19 24 09/02/2023 LIPID PANEL LDL [facility] 108 mg/dL 0-99 above high normal Not Available [facility] ([facility]) [address] [place], [address], 09/02/2023 11:15:38 09/01/19 24 09/02/2023 CBC WITH DIFFE RENTI AL/PL ATELE T WBC 10.4 x10e3 /uL 3.4-10 .8 Not Available [facility] ([facility]) [address] [place], [address], 09/02/2023 11:15:39 09/01/19 24 09/02/2023 CBC WITH DIFFE RENTI AL/PL ATELE T RBC 4.78 x10e6 /uL 3.77-5 .28 Not Available [facility] ([facility]) [address] [place], [address], 09/02/2023 11:15:39 09/01/19 24 09/02/2023 CBC WITH DIFFE RENTI AL/PL ATELE T hemoglobin 13.6 g/dL 11.1-1 5.9 Not Available [facility] ([facility]) [address] [facility], [place], [address], 09/02/2023 11:15:39 09/01/19 24 09/02/2023 CBC WITH DIFFE RENTI AL/PL ATELE T hematocrit 40.7 % 34.0-4 6.6 Not Available [facility] ([facility]) [address] [facility], [place], [address], 09/02/2023 11:15:39 09/01/19 24 09/02/2023 CBC WITH DIFFE RENTI AL/PL ATELE T MCV 85 fL 79-97 Not Available [facility] ([facility]) [address] [facility], [place], [address], 09/02/2023 11:15:39 09/01/19 24 09/02/2023 CBC WITH DIFFE RENTI AL/PL ATELE T MCH 28.5 pg 26.6-3 3.0 Not Available [facility] ([facility]) [address] [facility], [place], [address], 09/02/2023 11:15:39 09/01/19 24 09/02/2023 CBC WITH DIFFE RENTI AL/PL ATELE T MCHC 33.4 g/dL 31.5-3 5.7 Not Available [facility] ([facility]) [address] [place], [address], 09/02/2023 11:15:39 09/01/19 24 09/02/2023 CBC WITH DIFFE RENTI AL/PL ATELE T RDW 12.6 % 11.7-1 5.4 Not Available [facility] ([facility]) [address] [place], [address], 09/02/2023 11:15:39 09/01/19 24 09/02/2023 CBC WITH DIFFE RENTI AL/PL ATELE T platelets 404 x10e3 /uL 150-45 0 Not Available [facility] ([facility]) [address] [facility], [place], [address], 09/02/2023 11:15:39 09/01/19 24 09/02/2023 CBC WITH DIFFE RENTI AL/PL ATELE T neutrophils 60 % notest ab. Not Available [facility] ([facility]) [address] [facility], [place], [address], 09/02/2023 11:15:39 09/01/19 24 09/02/2023 CBC WITH DIFFE RENTI AL/PL ATELE T lymphs 32 % notest ab. Not Available [facility] ([facility]) [address] [facility], [place], [address], 09/02/2023 11:15:39 09/01/19 24 09/02/2023 CBC WITH DIFFE RENTI AL/PL ATELE T monocytes 6 % notest ab. Not Available [facility] ([facility]) [address] [facility], [place], [address], 09/02/2023 11:15:39 09/01/19 24 09/02/2023 CBC WITH DIFFE RENTI AL/PL ATELE T eos 1 % notest ab. Not Available [facility] ([facility]) [address] [facility], [place], [address], 09/02/2023 11:15:39 09/01/19 24 09/02/2023 CBC WITH DIFFE RENTI AL/PL ATELE T basos 0 % notest ab. Not Available [facility] ([facility]) [address] [facility], [place], [address], 09/02/2023 11:15:39 09/01/19 24 09/02/2023 CBC WITH DIFFE RENTI AL/PL ATELE T neutrophils (absolute) 6.2 x10e3 /uL 1.4-7. 0 Not Available [facility] ([facility]) [address] [facility], [place], [address], 09/02/2023 11:15:39 09/01/19 24 09/02/2023 CBC WITH DIFFE RENTI AL/PL ATELE T lymphs (absolute) 3.4 x10e3 /uL 0.7-3. 1 above high normal Not Available [facility] ([facility]) [address] [facility], [place], [address], 09/02/2023 11:15:39 09/01/19 24 09/02/2023 CBC WITH DIFFE RENTI AL/PL ATELE T monocytes(ab solute) 0.6 x10e3 /uL 0.1-0. 9 Not Available [facility] ([facility]) [address] [facility], [place], [address], 09/02/2023 11:15:39 09/01/19 24 09/02/2023 CBC WITH DIFFE RENTI AL/PL ATELE T eos (absolute) 0.1 x10e3 /uL 0.0-0. 4 Not Available [facility] ([facility]) [address] [facility], [place], [address], 09/02/2023 11:15:39 09/01/19 24 09/02/2023 CBC WITH DIFFE RENTI AL/PL ATELE T baso (absolute) 0.0 x10e3 /uL 0.0-0. 2 Not Available [facility] ([facility]) [address] [place], [address], 09/02/2023 11:15:39 09/01/19 24 09/02/2023 CBC WITH DIFFE RENTI AL/PL ATELE T immature granulocytes 1 % notest ab. Not Available [facility] ([facility]) [address] [facility], [place], [address], 09/02/2023 11:15:39 09/01/19 24 09/02/2023 CBC WITH DIFFE RENTI AL/PL ATELE T immature grans (abs) 0.1 x10e3 /uL 0.0-0. 1 Not Available [facility] ([facility]) [address] [facility], [place], [address], 09/02/2023 11:15:39 09/01/19 24 09/02/2023 PRESTON+L IPASE amylase 35 U/L 31-110 Not Available [facility] ([facility]) [address] [facility], [place], [address], 09/02/2023 11:15:40 09/01/19 24 09/02/2023 PRESTON+L IPASE lipase 29 U/L 14-72 Not Available [facility] ([facility]) [address] [place], [address], 09/02/2023 11:15:40 09/03/19 24 09/03/2023 pregn eddie test, urine HCG negati ve Not Available In-Office Order Internal Use Only DO Not Attach Compendium DO Not Attach Compendium, Do Not Delete/merge, [id number] 09/03/2023 12:24:53 Result Notes None recorded. Problems Name Problem SNOMED Code Status Onset Date Resolution Date Notes Provider Name and Address Organization Details Recorded Time Multiple environm ental allergie s Active 2017 BRIGIDO Wolf, [place] - [facility] 2 12:48:51 Hypergly cemia 74876813 Completed 201707/02/2018 Oscar Chavarria null, [place] - [facility] 9 11:03:02 Psoriasi s of scalp 791502196 Completed 201702/04/2019 Suzie Arevalo RN [place], [place] [facility] 9 11:06:18 Uncontro lled type 2 diabetes mellitus 648113509 Active 2017 BRIGIDO [place], [place] - [facility] 2 12:48:41 Mixed hyperlip idemia 708652240 Active 2018 Suzie Arevalo RN [place] [facility] 2 12:49:13 Body mass index 40+ - severely obese 810484284 Completed 201811/01/2021 Removal Reason: [facility] Accountin g,[address] [facility], [place], [address], [place] - [facility] 3 13:06:10 Generali zed anxiety disorder 28620909 Active 2019 Chuck Craig [facility] Attn: Accountin g,[address] [facility], [place], [address], [place] [facility] 2 11:21:19 Vitamin D deficien cy 80410767 Active 2021 Chuck Craig [facility] Attn: Accountin g,[address] [facility], [place], [address], [place] [facility] 2 11:21:19 Body mass index 40+ - severely obese 733045106 Completed 202105/06/2022 Chuck Craig [facility] Attn: Accountin g,[address] [facility], [place], [address], [place] [facility] 3 13:06:10 Hyperpig mentatio n of skin 76293611 Active 2021 Chuck Craig [facility] Attn: Accountin g,[address] [place], [address], [place] [facility] 3 13:05:54 Allergy to fish 307303543 Active 2021 Chuck Craig [facility] Attn: Accountin g,[address] [place], [address], [place] [facility] 3 13:05:54 Body mass index 30+ - obesity 326964783 Active 2021 Chuck Craig [facility] Attn: Accountin g,[address] [place], [address], [place] [facility] 3 13:05:54 Multiple skin tags on neck 318813819 Completed 202205/06/2022 Suzie Areval[place] RN [place] [facility] 3 12:10:07 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: Accountin g,[address], [place], [address], [place] - [facility] 3 13:05:54 Obesity 956245268 Active 2022 [facility]: Accountin g,[address] [facility], [place], [address], [place] [facility] 3 12:14:20 Excess pannicul us of abdomen 74408077294 01 Active 2022 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: Accountin g,[address], [place], [address], [place] [facility] 4 15:11:19 Steatosi s of liver 870327639 Active 2022 [facility]: Accountin g,[address], [place], [address], [place] [facility] 4 15:11:19 Abnormal liver function 71636367 Completed 202309/03/2023 Removal Reason: resolved for now LAURA Hancock Attn: Accountin g,[address], [place], [address], [place] [facility] 4 13:04:06 Inguinal lymphade nopathy 943279413 Active 2023 Chuck Craig [facility] Attn: Nadege aponte,[address] [facility], [place], [address], [place] [facility] 4 15:11:19 Cholelit hiasis without obstruct ion 45585781 Active 2023 Chuck Craig [facility] Attn: Nadege aponte,[address] [facility], [place], [address], [place] [facility] 4 15:11:19 Cystic acne 37182279 Active 2023 Chuck Craig [facility] Attn: Nadege aponte,[address] [facility], [place], [address], [place] [facility] 4 15:11:19 Right upper quadrant pain 432776742 Active 2023 Chuck Craig [facility] Attn: Nadege aponte,[address] [facility], [place], [address], [place] [facility] 4 12:47:31 Anxiety 48439884 Active 2023 Chuck Craig [facility] Attn: Nadege aponte,[address] [facility], [place], [address], [place] [facility] 4 13:13:00 Impaired glucose toleranc e 6994084 Completed 10/17/2016 MCKAY Hidalgo [place] [facility] 7 16:17:03 Acute pharyngi tis 848564144 Completed 06/08/2015 Suzie [place] [facility] 6 12:45:07 Morbid obesity 763546791 Completed 02/04/2019 Suzie [place] [facility] 9 11:06:43 Allergic rhinitis 06045938 Completed 03/05/2018 Chuck Craig [facility] Attn: Nadege aponte,[address] [facility], [place], [address], [place] [facility] 8 13:06:06 Venous varices 885013831 Active BRIGIDO Wolf, [place] - [facility] 2 12:49:21 Hyperlip idemia 77773585 Completed 03/05/2018 Suzie Arevalo RN null, [place] - [facility] 8 11:58:13 Backache 050688292 Completed 03/05/2018 BRIGIDO Wolf, [place] - [facility] 8 11:57:58 Chronic dermatit is 61669732 Active BRIGIDO Wolf, [place] - [facility] 2 12:48:32 Asteatos is cutis 40859610 Completed 02/04/2019 BRIGIDO Wolf, [place] - [facility] 9 11:06:49 Rhinitis 24528407 Completed 01/02/2017 BRIGIDO Wolf, [facility] 7 13:22:54 Type 2 diabetes mellitus 37526357 Completed 201602/04/2019 Suzie Arevalo RN null, [place] - [facility] 9 11:06:32 Dyslipid emia 473891612 Completed 201602/04/2019 BRIGIDO Wolf, [facility] 9 11:06:24 Problem Notes None recorded. Procedures Surgical History Date Name Laterality Status Provider Name and Address Organization Details Recorded Time 05/02/19 23 Skin Tag Removal completed LAURA Hancock Attn: Accounting,[address] [place], [address], [facility] - [facility] 05/02/2022 16:42:03 04/25/19 23 Date of Last Pap Smear completed Suzie Arevalo RN [place] - [facility] 06/06/2022 12:58:35 04/20/19 15 Tonsillectomy completed Suzie Arevalo RN [place] - [facility] 04/06/2015 11:08:40 Imaging Results None recorded. Procedure Notes None recorded. Medical Equipment None Reported. Allergies Allergen ID Allergen Name Allergen Category Reaction Reaction Severity Criticality Documentation Date Start Date Code Code System Note Provider Name and Address Organization Details Recorded Time 882484 lisinopri l medicatio n flushing moderate Not available 09/16/20192019 82930 RxNorm Not Available Not Available Not Available [...] Not Available Not Available FreeStyle Herrera 2 [place] 09/06 completed Not Available Not Available Not [...] DateTime 09/01/2023 160.02 cm Trevin blas [place] - [facility] 09/01/2023 10:15:18 Date Recorded Body height Body mass index (BMI) Body weight Body temperature Heart rate Systolic blood pressure Diastolic blood pressure Provider Name and Address Organization Details Last Updated DateTime 160.02 cm 37.2 kg/m2 10459.4 g 97.6 [degF] 85 /min 116 mm[Hg] 75 mm[Hg] Suzie Arevalo RN [place] - [facility] 4 12:45:12 Date Recorded Body height Body mass index (BMI) Body weight Heart rate Body temperature Systolic blood pressure Diastolic blood pressure Provider Name and Address Organization Details Last Updated DateTime 4 160.02 cm 36.4 kg/m2 38014.2 4 g 79 /min 98 [degF] 112 mm[Hg] 75 mm[Hg] Suzie Arevalo RN [facility] 4 14:58:01 Date Recorded Body height Body mass index (BMI) Body weight Heart rate Body temperature Systolic blood pressure Diastolic blood pressure Provider Name and Address Organization Details Last Updated DateTime 4 160.02 cm 35.1 kg/m2 26527.2 9 g 74 /min 97.6 [degF] 101 mm[Hg] 69 mm[Hg] Suzie Arevalo RN [facility] 4 12:36:24 Date Recorded Body height Body mass index (BMI) Body weight Provider Name and Address Organization Details Last Updated DateTime 02/05/2024 160.02 cm 34.7 kg/m2 68628.1 g Suzie Arevalo RN [facility] 02/05/2024 12:46:27 Social History Question Answer Notes LastModified by Organizat ion Details LastModified Time Tobacco Smoking Status Never Smoker Suzie Arevalo RN [facility] 04/06/2015 11:08:40 Do You Have An Advance [...] Or Recreational Drugs Have You Used? Denies [email or web address] Information not available 10/29/2016 Do You Or [...] Anxious, Or Unable To Sleep At Night)? [id number] Information not available 02/06/2022 Do You Use [...] Not available 14:38:37 Medical History Condition Response Skin Problems Y Diabetes Y Muscle, Joint, or Bone Problems Y Allergies Y High Cholesterol Y Gynecological History Statement/Question Response Abnormal Pap [...] [place] [facility] 09/06/2021 12:50:01 [...] [place] [facility] 03/04/2024 10:30:05 Tdap 5 completed Suzie [place] [facility] 08/05/2024 10:08:22 pneumococcal polysaccharide PPV23 9 completed Not Available [facility] 05/07/2019 02:41:28 Influenza, split virus, quadrivalent, PF 9 completed Not Available [facility] 05/07/2019 02:39:21 Influenza, split virus, quadrivalent, PF 5 completed Suzie [place] [facility] 04/06/2015 11:08:40 Tdap 5 completed Yasmeen Ny null, [facility] 06/08/2015 11:20:28 Influenza, split virus, quadrivalent, preservative 6 completed Suzie Arevalo RN null, [facility] 02/08/2016 13:10:18 HPV9 3 completed Chuck Craig [facility] Attn: Accounting,[address] [place], [address], [facility] 03/09/2023 16:14:18 HPV9 4 completed Suzie Arevalo RN null, [facility] 04/21/2023 15:54:10 HPV9 4 completed Chuck Craig [facility] Attn: Accounting,[address] [place], [address], [facility] 09/03/2023 17:55:54 Influenza, split virus, quadrivalent, preservative 7 completed Suzie Arevalo RN null, [facility] 01/02/2017 13:24:13 Past Encounters Encounter ID Performer Location Encounter Start Date Encounter Closed Date Diagnosis/Indication Diagnosis SNOMED-CT Code Diagnosis ICD10 Code Diagnosis Note [id number] Chuck Craig [facility] [address] [place] [address] 04/06/2015 10:47:18 04/10/2015 12:01:25 Acute pharyngitis 669241694 J02.9 [id number] Chuck Craig [facility] [address] [place] [address] 06/08/2015 11:16:42 06/12/2015 13:29:41 Adult health examination 020957344 Z00.00 Morbid obesity 766425012 E66.01 Allergic rhinitis 430179 04 J30.9 Venous varices 503485795 I83.92 [id number] Birgit Bullock [facility] [address], [place] [address] 06/11/2015 10:14:51 06/12/2015 13:43:16 Morbid obesity 177668930 E66.01 [id number] [facility] [address] [place] [address] 08/03/2015 10:08:39 08/06/2015 17:57:10 Morbid obesity 578972867 E66.01 13# weight loss in 2 months Diet, weight loss and exercise Monitor for adverse side effects Hyperlipidemia 38742331 E78.5 Discussed test results Increase exercise to 50-60 minutes daily 5-6 times per week [id number] [facility] [address] [place] [address] 10/08/2015 12:43:54 10/16/2015 13:10:23 Morbid obesity 652730348 E66.01 7# weight gain in 2 months Diet, weight loss and exercise Monitor for adverse side effects Backache 434348082 M54.9 Hyperlipidemia 71836806 E78.5 Discussed test results Increase exercise to 50-60 minutes daily 5-6 times per week [id number] [facility] [address] [place] [address] 11/28/2015 12:37:02 12/10/2015 11:50:21 Morbid obesity 581074515 E66.01 will give Rx for 1 more month if no weight loss will stop Diet, weight loss and exercise Monitor for adverse side effects Chronic dermatitis 43927 007 L30.9 Asteatosis cutis 6931438 0 L85.3 Backache 879643823 M54.9 [id number] [facility] [address] [place] [address] 02/08/2016 12:33:25 02/18/2016 13:08:13 Morbid obesity 947462518 E66.01 will give Rx for 1 more month if no weight loss will stop Diet, weight loss and exercise Monitor for adverse side effects Chronic dermatitis 30842 007 L30.9 keep appointmen t with Derm Hyperlipidemia 63277142 E78.5 Increase exercise to 50-60 minutes daily 5-6 times per week Asteatosis cutis 2958999 0 L85.3 Cetaphil products Backache 893799554 M54.9 get xrays done DAIN/stret lisandra/exer cise/weigh t loss Rhinitis 38510062 J00 use Zyrtec daily [id number] Yasmeen [facility] [address] [address] 4 02/11/2016 12:20:28 02/18/2016 13:29:38 Hyperlipidemia 66921655 E78.5 Increase exercise to 50-60 minutes daily 5-6 times per week [id number] [facility] [address] [address] 02/20/2016 16:54:19 02/29/2016 12:13:11 Eruption 693180793 R21 OTC ZYRTEC 10mg once daily allergen panel + food mix (seafoods) , environmen sven allergens, perennial grass Multiple environmental allergies 821614561 T78.49XD Allergy to seafood 49691 001 Z91.532 [id number] [facility] [address] [place] [address] 4 03/12/2016 11:55:30 03/19/2016 11:09:10 Morbid obesity 293800813 E66.01 6 pound weight loss since a month ago Diet, weight loss and exercise Monitor for adverse side effects Asteatosis cutis 4101055 0 L85.3 Cetaphil products Eruption 927367249 R21 OTC ZYRTEC 10mg once daily allergen panel + food mix (seafoods) , environmen sven allergens, perennial grass Prediabetes 605528957 R7 3.03 Hyperlipidemia 43992137 E78.5 Increase exercise to 50-60 minutes daily 5-6 times per week [id number] [facility] [address] [place] [address] 04/09/2016 12:13:53 04/16/2016 17:41:34 Morbid obesity 491659663 E66.01 6 pound 1/4 ounce weight loss since a month ago Diet, weight loss and exercise Monitor for adverse side effects As its the Holidays and patient is not having any side effects will give Rx this month--the n 3 months off Prediabetes 606335797 R7 3.03 [id number] [facility] [address] [place] [address] 04/18/2016 10:31:37 04/24/2016 10:54:52 Acute vaginitis 37840120 N76.0 Increase Doxyciclin e 100mg once daily to twice daily for the next seven days to cover UTI then return to once daily dosing Dysuria 39262610 R30.0 Prediabetes 379578288 R7 3.03 [id number] [facility] [address], [place] [address] 06/09/2016 10:56:27 06/17/2016 10:08:56 Acute conjunctivitis 02428979 H10.31 [id number] [facility] [address] [place] [address] 06/30/2016 12:01:19 07/02/2016 17:53:15 Chronic dermatitis 92842918 L30.9 Seen by derm 02/2016 given about same treatment she had received from this office. SHe wishes to continue treatment. Requesting refills. Asteatosis cutis 5293688 0 L85.3 Cetaphil products Morbid obesity 126690046 E66.01 No weight loss since last visit Diet, weight loss and exercise Backache 472906150 M54.9 Xray shows DJD/stretc gus/exerc ise/weight loss Pain in right knee 55184 79091 20857 M25.561 will send for PT Psoriasis of scalp 41982 8008 L40.9 [id number] [facility] [address], [place] [address] 08/20/2016 12:05:58 08/27/2016 17:50:49 Morbid obesity 987042156 E66.01 11 pound weight loss since last visit Diet, weight loss and exercise Hyperlipidemia 88969676 E78.5 Increase exercise to 50-60 minutes daily 5-6 times per week Chronic dermatitis 42138 007 L30.9 Seen by derm 02/2016 given about same treatment she had received from this office. SHe wishes to continue treatment. Requesting refills. Impaired g lucose tolerance 5727146 R73.03 Prediabetes 832010008 R7 3.03 Increased blood pressure 24786857 R03.0 monitor blood pressure Have RN check b/p in 1 month avoid salt weight loss encouraged Allergic rhinitis 316376 04 J30.1 zyrtec samples Pain in right knee 11382 57370 19778 M25.561 Patient to continue PT exercises at home Patient continues to have symptoms despite NSAIDS/PT for 3 1/2 months--kn ee xray essentiall y normal showed minor swelling Take Meloxicam daily for the next couple of months for knee inflammati on [id number] Chuck Craig [facility] [address] [place] [address] 10/17/2016 15:58:37 10/21/2016 16:47:09 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 surgical referral Lipoma of upper arm 1889 02443 D17.21 D17.22 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 84754188 I83.10 weight loss elevation of legs support hose referral to surgeon for sclerother apy prn [id number] Eliseo Vigil MD [facility] [address] [place] [address] 10/29/2016 10:37:36 11/04/2016 13:11:34 Lipoma of skin and subcutaneous tissue (excluding face) 367633517 D17.30 [id number] Chuck Craig [facility] [address] [place] [address] 01/02/2017 12:13:06 01/10/2017 22:13:03 Morbid obesity 755408327 E66.01 5bpound weight gain since last visit Diet, weight loss and exercise Hyperlipidemia 64060301 E78.5 Increase exercise to 50-60 minutes daily 5-6 times per week Try [place] 3 FA Chronic dermatitis 79871 007 L30.9 Seen by derm 02/2016 given about same treatment she had received from this office. SHe wishes to continue treatment. Requesting refills. Prediabetes 506944124 R7 3.03 will repeat labs at next visit Allergic rhinitis 193096 04 J30.1 Cystic acne 79815063 L70 .0 drink a lot of water with this medication and daily banana Edema of l ower extremity 782182286 R60.0 recommend compressio n hose [id number] [facility] [address] [place] [address] 03/05/2018 11:48:06 03/16/2018 13:07:08 Adult health examination 620589760 Z00.00 Upper resp iratory infection 12320909 J06.9 Venous varices 700134969 I83.92 Morbid obesity 509585892 E66.01 6# weight loss since last visit Diet, weight loss and exercise Chronic dermatitis 72233 007 L30.9 Seen by meghan 02/2016 given about same treatment she had received from this office. SHe wishes to continue treatment. Requesting refills. Dyslipidemia 682370938 E 78.5 Psoriasis of scalp 63390 8008 L40.9 Hyperglycemia 49622591 R 73.9 accu check random 240 fasting Acute fron sven sinusitis 19975905 J01.10 Multiple environmental allergies 182917866 T78.49XD Chronic back pain 364468 002 G89.29 Headache 71996070 R51 suspect migraines Uncontroll ed type 2 diabetes mellitus 739786777 E11.65 [id number] Chuck Craig [facility] [address] [place] [address] 07/02/2018 10:45:47 07/02/2018 17:36:52 Uncontrolled type 2 diabetes mellitus 478391426 E11.65 Acute fron sven sinusitis 10751928 J01.10 Multiple environmental allergies 750127707 T78.49XD continue otc Psoriasis of scalp 59710 8008 L40.9 Chronic dermatitis 18669 007 L30.9 Seen by derm 02/2016 given about same treatment she had received from this office. SHe wishes to continue treatment. Requesting refills. Prehypertension 46205584 9 R03.0 reduce salt in your diet 50-60 minutes of aerobic physical activity 5-6 time per week lose weight 5-20% of current body weight if B/P remains elevated will start B/P meds Body mass index 40+ - severely obese 332870982 Z68.41 bmi 42 Mixed hyperlipidemia 267 574950 E78.2 Avoid all breads, potatoes, cereal, pasta, rice, margarine, refined sugars, milk yogurt, ice cream, juices, soda (including diet), beer, and manmade or manufactur ed desserts. Enjoy steak, fish, chicken (no skin), pork, butter, vegetables , beans, nuts, whole eggs, cheese (low fat or skim), cream in your coffee. Depression screening 171 504402 Z13.31 negative [id number] [facility] [address] 4 01/13/2019 12:45:24 01/13/2019 18:11:52 Acute frontal sinusitis 82888555 J01.10 Cough 98654655 R05 Multiple environmental allergies 037996523 T78.49XD get otc antihistam ine and start [id number] [facility] [address] [place] [address] 4 02/04/2019 10:55:51 02/04/2019 17:01:53 Uncontrolled type 2 diabetes mellitus 632275693 E11.65 uncontroll edfasting 546LT8S 9.6will continue Metformin bid started at [place] e/r Mixed hyperlipidemia 267 606366 E78.2 Avoid all breads, potatoes, cereal, pasta, rice, margarine, refined sugars, milk yogurt, ice cream, juices, soda (including diet), beer, and manmade or manufactur ed desserts. Enjoy steak, fish, chicken (no skin), pork, butter, vegetables , beans, nuts, whole eggs, cheese (low fat or skim), cream in your coffee. Multiple environmental allergies 320981408 T78.49XD continue otc Chronic dermatitis 02035 007 L30.9 Seen by derm 02/2016 given about same treatment she had received from this office. SHe wishes to continue treatment. Requesting refills. Prehypertension 00651714 9 R03.0 reduce salt in your diet 50-60 minutes of aerobic physical activity 5-6 time per week lose weight 5-20% of current body weight will start Lisinopril 2.5mg for kidney protection today Body mass index 30+ - obesity 233747789 Z68.39 BMI 39Healthy body weight 105-135 Administra tion of influenza vaccine 54852335 Z23 [id number] Chuck Craig [facility] [address] [address] 08/17/2019 11:30:26 08/18/2019 11:27:38 Uncontrolled type 2 diabetes mellitus 057221063 E11.65 uncontroll edshe forgets to take evening bswnOI6A 8.3will change Metformin 1000mg bid to Metformin ER 1000mg (2) Mixed hyperlipidemia 267 598494 E78.2 Avoid all breads, potatoes, cereal, pasta, rice, margarine, refined sugars, milk yogurt, ice cream, juices, soda (including diet), beer, and manmade or manufactur ed desserts. Enjoy steak, fish, chicken (no skin), pork, butter, vegetables , beans, nuts, whole eggs, cheese (low fat or skim), cream in your coffee. Multiple environmental allergies 623706420 T78.49XD continue otc Body mass index 30+ - obesity 489585002 Z68.39 BMI 39Healthy body weight 105-135 Chronic dermatitis 02459 007 L30.9 Seen by derm 02/2016 given about same treatment she had received from this office. SHe wishes to continue treatment. Requesting refills. Prehypertension 22068476 9 R03.0 reduce salt in your diet 50-60 minutes of aerobic physical activity 5-6 time per week lose weight 5-20% of current body weight will start Lisinopril 2.5mg for kidney protection today Headache 60016492 R51 suspect migrainesC T of Head 01/2019 normal Anxiety 30623028 F41.9 psychother apist listauto relaxation exerciseRX for prn use Acute fron sven sinusitis 08181536 J01.10 [id number] Chuck Craig [facility] [address], [place] [address] 09/16/2019 12:28:24 09/19/2019 10:06:07 Generalized anxiety disorder 55490784 F41.1 recommend psychother apist visits-pt will check with her 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 wants to picker tender Rx at office Body mass index 40+ - severely obese 201989213 Z68.41 bmi 42 [id number] [facility] [address] [place] [address] 10/14/2019 10:34:20 10/17/2019 06:38:07 Generalized anxiety disorder 40344964 F41.1 recommend psychother apist visits-pt will check with her 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 wants to picker tender Rx at officepati ent fees better agrees to increasing dose of Escitalopr am 10mg to 20mg dollyluke is aware will not refill klonopin for ongoing use Body mass index 40+ - severely obese 166550102 Z68.41 bmi 42 [id number] [facility] [address] [place] [address] 10/24/2019 12:45:53 10/25/2019 06:47:00 Acute sinusitis 23416644 J01.90 [id number] Narcisoramakrishnaleanna [place] [place] [address] [place] [address] 11/18/2019 14:10:09 11/21/2019 07:27:44 Uncontrolled type 2 diabetes mellitus 675288767 E11.65 uncontroll edshe forgets to take evening doseLast HA1C 8.3will continue Metformin ER 1000mg (2) Prehypertension 92437624 9 R03.0 reduce salt in your diet 50-60 minutes of aerobic physical activity 5-6 time per week lose weight 5-20% of current body weight patient stooped Lisinopril 2.5mg for kidney protection about a month ago-had reaction Mixed hyperlipidemia 267 798990 E78.2 Avoid all breads, potatoes, cereal, pasta, rice, margarine, refined sugars, milk yogurt, ice cream, juices, soda (including diet), beer, and manmade or manufactur ed desserts. Enjoy steak, fish, chicken (no skin), pork, butter, vegetables , beans, nuts, whole eggs, cheese (low fat or skim), cream in your coffee. Multiple environmental allergies 559147457 T78.49XD continue otc Body mass index 30+ - obesity 418893844 Z68.39 BMI 39Healthy body weight 105-135 Chronic dermatitis 99352 007 L30.9 Seen by derm 02/2016 given about same treatment she had received from this office. SHe wishes to continue treatment. Still has at home aware not to use in large quantities Headache 41848217 R51 suspect migrainesC T of Head 01/2019 normal Generalize d anxiety disorder 41914477 F41.1 recommend psychother apist visits-pt will check with her job on thisPatien t stopped both Escitalopr am and Clonazepam two weeks ago when she found out she was 7 [id number] Chuck Craig [facility] [address] [place] [address] 06/06/2020 12:16:58 06/07/2020 14:23:37 Mixed hyperlipidemia 822896443 E78.2 Avoid all breads, potatoes, cereal, pasta, rice, margarine, refined sugars, milk yogurt, ice cream, juices, soda (including diet), beer, and manmade or manufactur ed desserts. Enjoy steak, fish, chicken (no skin), pork, butter, vegetables , beans, nuts, whole eggs, cheese (low fat or skim), cream in your coffee. Body mass index 40+ - severely obese 176210897 Z68.41 bmi 42 Prehypertension 18003596 9 R03.0 reduce salt in your diet 50-60 minutes of aerobic physical activity 5-6 time per week lose weight 5-20% of current body weight Chronic dermatitis 88758 007 L30.9 Seen by derm 02/2016 given about same treatment she had received from this office. SHe wishes to continue treatment. Has refills. Stable at present time. Uncontroll ed type 2 diabetes mellitus 882712092 E11.65 uncontroll edshe forgets to take evening doseLast HA1C 8.3will restart Metformin ER 1000mg (2) [id number] Trevin Maria [facility] [address] [address] 07/06/2020 15:11:23 07/09/2020 14:05:28 Uncontrolled type 2 diabetes mellitus 217036376 E11.65 uncontroll edshe forgets to take evening doseLast HA1C 8.3will restart Metformin ER 1000mg (2) Mixed hyperlipidemia 267 995396 E78.2 Avoid all breads, potatoes, cereal, pasta, rice, margarine, refined sugars, milk yogurt, ice cream, juices, soda (including diet), beer, and manmade or manufactur ed desserts. Enjoy steak, fish, chicken (no skin), pork, butter, vegetables , beans, nuts, whole eggs, cheese (low fat or skim), cream in your coffee. [id number] Chuck Craig [facility] [address] [address] 08/31/2020 16:16:37 09/03/2020 16:30:16 Uncontrolled type 2 diabetes mellitus 548981152 E11.65 uncontroll ed she forgets to take evening dose Last HA1C 6.4 on 07/06/2020 will continue Metformin ER 1000mg (2) will add Tradjenta 5mg daily pt is not BF Mixed hyperlipidemia 267 439670 E78.2 07/06/2020 [id number] Trig 441 HDL 32 LDL 150 Avoid all breads, potatoes, cereal, pasta, rice, margarine, refined sugars, milk yogurt, ice cream, juices, soda (including diet), beer, and manmade or manufactur ed desserts. Enjoy steak, fish, chicken (no skin), pork, butter, vegetables , beans, nuts, whole eggs, cheese (low fat or skim), cream in your coffee. Body mass index 40+ - severely obese 047491236 Z68.41 bmi 42 Prehypertension 93236801 9 R03.0 reduce salt in your diet 50-60 minutes of aerobic physical activity 5-6 time per week lose weight 5-20% of current body weight Chronic dermatitis 11853 007 L30.9 Seen by derm 02/2016 given about same treatment she had received from this office. SHe wishes to continue treatment. Has refills. Stable at present time. 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 [id number] Chuck Craig [facility] [address] [place] [address] 11/30/2020 12:06:22 12/05/2020 06:56:56 Uncontrolled type 2 diabetes mellitus 509284678 E11.65 she forgets to take evening dose Last HA1C 6.4 on 07/06/2020 will continue Metformin ER 1000mg (2)Jones ce was not coveredPat ient has been using Humulin N NPH 25 units BIDBS are better 110-160 range Mixed hyperlipidemia 267 185947 E78.2 07/06/2020 [id number] Trig 441 HDL 32 LDL 150 Avoid all breads, potatoes, cereal, pasta, rice, margarine, refined sugars, milk yogurt, ice cream, juices, soda (including diet), beer, and manmade or manufactur ed desserts. Enjoy steak, fish, chicken (no skin), pork, butter, vegetables , beans, nuts, whole eggs, cheese (low fat or skim), cream in your coffee. Body mass index 40+ - severely obese 809650555 Z68.41 bmi 42 Prehypertension 25574392 9 R03.0 reduce salt in your diet 50-60 minutes of aerobic physical activity 5-6 time per week lose weight 5-20% of current body weight Chronic dermatitis 79643 007 L30.9 Seen by derm 02/2016 given about same treatment she had received from this office. SHe wishes to continue treatment. Has refills. Stable at present time. Depression screening 171 Z13.31 positive patient on sertraine 50mg daily started per her OB/gynneed s refills of sertraline from this office as she no longer seeing OB Anxiety 35921904 F41.9 psychother apist listauto relaxation exerciseRX for prn use Psoriasis of scalp 67618 8008 L40.9 [id number] Chuck Craig [facility] [address] [place] [address] 12/17/2020 12:10:32 12/18/2020 06:02:04 COVID-19 784703783 U07.1 [id number] Chuck Craig [facility] [address] [address] 07/25/2021 16:02:46 07/26/2021 15:40:58 Uncontrolled type 2 diabetes mellitus 358626889 E11.65 HA1C 8.5 [id number] 6.4 on 07/06/2020 will continue Metformin 1000mg 1 po bidwill add Ozempic 0.25mgMoni tor bs readings before and after meals (2Hrs) keep log Mixed hyperlipidemia 267 208670 E78.2 07/06/2020 [id number] Trig 441 HDL 32 LDL 150 Avoid all breads, potatoes, cereal, pasta, rice, margarine, refined sugars, milk yogurt, ice cream, juices, soda (including diet), beer, and manmade or manufactur ed desserts. Enjoy steak, fish, chicken (no skin), pork, butter, vegetables , beans, nuts, whole eggs, cheese (low fat or skim), cream in your coffee. Generalize d anxiety disorder 75065553 F41.1 ANDIE-7 Wi re-start treatmentE scitalopra m 20mg dailyKlono pin for severe anxiety symptomsre commend psychother apist visits-amy l with problems or rthoughts of harming self Multiple environmental allergies 908900952 T78.49XD continue otc antihistam ine Body mass index 40+ - severely obese 634874831 Z68.41 bmi 37.2 Healthy Weight: {{4'10= 91-118 [...] 152-199 lbs 6'4= 156-204 lbs}} Chronic dermatitis 70246 007 L30.9 Seen by derm 02/2016 given about same treatment she had received from this office. SHe wishes to continue treatment. Depression screening 171 599950 Z13.31 negative Hyperpigme ntation of skin 67500612 L81.9 Furuncle of buttock 1243 0003 L02.32 [id number] Trevin Maria, [facility] [address] [address] 07/26/2021 10:25:41 08/12/2021 16:22:57 Uncontrolled type 2 diabetes mellitus 079763810 E11.65 HA1C 8.5 [id number] 6.4 on 07/06/2020 will continue Metformin 1000mg 1 po bidwill add Ozempic 0.25mgMoni tor bs readings before and after meals (2Hrs) keep log Mixed hyperlipidemia 267 304924 E78.2 07/06/2020 [id number] Trig 441 HDL 32 LDL 150 Avoid all breads, potatoes, cereal, pasta, rice, margarine, refined sugars, milk yogurt, ice cream, juices, soda (including diet), beer, and manmade or manufactur ed desserts. Enjoy steak, fish, chicken (no skin), pork, butter, vegetables , beans, nuts, whole eggs, cheese (low fat or skim), cream in your coffee. [id number] Chuck Craig [facility] [address] [place] [address] 09/06/2021 12:40:16 09/09/2021 14:59:34 Generalized anxiety disorder 89116411 F41.1 ANDIE-7 --07/20 1 Aaron continue treatmentE scitalopra m 20mg dailyKlono pin for severe anxiety symptomsre commend psychother apist visits-amy l with problems or rthoughts of harming self Mixed hyperlipidemia 267 702927 E78.2 07/06/2020 [id number] Trig 441 HDL 32 LDL 150 07/26/2021 [...] try Atorvastat in 20mg daily and LSM [id number] Chuck Craig [facility] [address] [place] [address] 11/01/2021 12:33:34 11/04/2021 11:16:46 Uncontrolled type 2 diabetes mellitus 755856007 E11.65 HA1C 7.HA1C 6.4 on 07/06/2020 will continue Metformin 1000mg 1 po bidwill continue Ozempic 0.25mgMoni tor bs readings before and after meals (2Hrs) keep log Mixed hyperlipidemia 267 801672 E78.2 07/06/2020 [id number] Trig 441 HDL 32 LDL 150 07/26/2021 [...] daily and LSM Generalize d anxiety disorder 78628919 F41.1 ANDIE-7 --07/20 1 Aaron continue treatmentE scitalopra m 20mg dailyKlono pin for severe anxiety symptomsre commend psychother apist visits-amy l with problems or thoughts of harming self Multiple environmental allergies 827760600 T78.49XD continue otc antihistam ine Body mass index 40+ - severely obese 416412786 Z68.41 bmi 37.2 Healthy Weight: {{4'10= 91-118 [...] 152-199 lbs 6'4= 156-204 lbs}} Chronic dermatitis 31729 007 L30.9 Seen by derm 02/2016 given about same treatment she had received from this office. SHe wishes to continue treatment. Hyperpigme ntation of skin 73696450 L81.9 continue trilumause daily sunscreen Furuncle of buttock 1243 0003 L02.32 Depression screening 171 031749 Z13.31 negative Cystic acne 16685222 L70 .0 drink a lot of water with this medication and daily banana Fatigue 97925809 R53.83 [id number] Chuck Craig [facility] [address] [place] [address] 02/06/2022 10:29:05 02/10/2022 14:44:03 Mixed hyperlipidemia 106014189 E78.2 07/06/2020 [id number] Trig 441 HDL 32 LDL 150 07/26/2021 [...] LSM Uncontroll ed type 2 diabetes mellitus 259426453 E11.65 HA1C 7.1HA1C 6.4 on 07/06/2020 will continue Metformin 1000mg 1 po bidIncreas e Ozempic 1mg once weeklyMoni tor bs readings before and after meals (2Hrs) keep log Generalize d anxiety disorder 04763238 F41.1 Will continue treatmentE scitalopra m 20mg dailyKlono pin for severe anxiety symptomsre commend psychother apist visits-amy l with problems or thoughts of harming self Multiple environmental allergies 109568603 T78.49XD igE 645 plus multiple specific environmen sven allergensc ontinue otc antihistam ine Body mass index 40+ - severely obese 143284617 Z68.41 bmi 39Healthy Weight: {{4'10= 91-118 lbs 4'11= 94-123 lbs 5'= 97-127 lbs 5'1= 100-131 lbs 5'2= 104-135 5' 3= 107-140 lbs* 5'4= 110-144 lbs 5'5= 115-149 lbs 5'6= 118-154 lbs 5'7= 121-158 lbs 5'8= 125-163 lbs 5'9= 128-168 lbs 5'10= 132-173 lbs 5'11= 136-178 lbs 6'= 140-183 lbs 6'1= 144-188 lbs 6'2= 148-193 lbs 6'3= 152-199 lbs 6'4= 156-204 lbs}} Chronic dermatitis 15355 007 L30.9 Seen by derm 02/2016 given about same treatment she had received from this office. SHe wishes to continue treatment. Hyperpigme ntation of skin 46085432 L81.9 continue trilumause daily sunscreen Cystic acne 83699986 L70 .0 drink a lot of water with this medication and daily banana Depression screening 171 422305 Z13.31 PHQ2-9 negative [facility] screening 607552944 Z13.39 ANDIE-7 negative Acute sinusitis 53517349 J01.90 Acute pharyngitis 813944 003 J02.9 Allergy to fish 64774907 2 Z91.013 + allergen profile to fishGets rash [id number] Sunil Hearn [facility] [address] [place] [address] 02/24/2022 11:58:05 02/25/2022 13:30:52 Acute urinary tract infection 552781082 N39.0 Body mass index 30+ - obesity 105859730 Z68.39 BMI 38Healthy body weight 105-135 Depression screening 171 835080 Z13.31 PHQ2-9 negative Mental [facility] screening 538575668 Z13.39 ANDIE-7 negative [id number] [facility] [address] [place] [address] 02/27/2022 11:01:08 02/28/2022 11:04:03 Acute pharyngitis 234108694 J02.9 Influenza A virus present 7135537947 08 J09.X2 [id number] [facility] [address] [place] [address] 05/02/2022 15:38:01 05/06/2022 08:27:26 Venous varices 968519090 I83.92 Multiple s kin tags on neck 832431784 L91.8 removed 3 skin tags from neck without complicati ons 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 every 6 hrs as necessary Depression screening 171 891131 Z13.31 PHQ2-9 negative Mental [facility]a [facility] screening 531058402 Z13.39 ANDIE-7 negative [id number] [facility] [address] [place] [address] 05/06/2022 12:10:55 05/07/2022 12:58:03 Acute bilateral otitis media 676499702 H66.93 Acute ethm oidal sinusitis 03915781 J01.20 Body mass index 30+ - obesity 115738416 Z68.39 BMI 37Healthy body weight 105-135 Depression screening 171 100680 Z13.31 PHQ2-9 negative [facility] screening 771289517 Z13.39 ANDIE-7 negative [id number] [facility] [address] [place] [address] 06/06/2022 12:29:56 06/09/2022 09:21:50 Uncontrolled type 2 diabetes mellitus 888406279 E11.65 HA1C 7.3 DtecaYR4Y 6.4 on 07/06/2020 will continue Metformin 1000mg 1 po bidIncreas e Ozempic 1mg once weekly to 1.5mg once weeklyMoni tor bs readings before and after meals (2Hrs) keep log Mixed hyperlipidemia 267 133784 E78.2 07/06/2020 [id number] Trig 441 HDL 32 LDL 150 07/26/2021 [...] Atorvastat in 20mg daily and LSM Obesity 045494383 E66.9 BMI 37Healthy body weight 105-135 Body mass index 30+ - obesity 874883602 Z68.39 BMI 37Healthy body weight 105-135 Generalize d anxiety disorder 64920331 F41.1 Will continue treatmentE scitalopra m 20mg dailyKlono pin for severe anxiety symptomsre commend psychother apist visits-amy white with problems or thoughts of harming self Chronic dermatitis 25016 007 L30.9 Seen by derm 02/2016 given about same treatment she had received from this office. SHe wishes to continue treatment. Cystic acne 52184840 L70 .0 drink a lot of water with this medication and daily banana Multiple environmental allergies 141322225 T78.49XD igE 645 plus multiple specific environmen sven allergensc ontinue otc antihistam ine Allergy to fish 20366130 2 Z91.013 + allergen profile to fishGets rash Hyperpigme ntation of skin 56570572 L81.9 continue trilumause daily sunscreen Depression screening 171 488400 Z13.31 PHQ2-9 negative Mental hea l[facility] screening 965051987 Z13.39 ANDIE-7 negative Vitamin D deficiency 347 05290 E55.9 Vitamin D 11.3Start Rx Vitamin D2 67015 IU once weekly for 12 weeksonce you complete RX buy otc vitamin D3 1000 IU once daily Candidal intertrigo 2661 23148 B37.2 nystatin Excess morales niculus of abdomen 9075127285 101 E65 Venous varices 869072672 I83.92 weight losselevat e legssuppor t hoseibupro fen prn 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 every 6 hrs as necessary Acute fron sven sinusitis 14346055 J01.10 [id number] [facility] [address], [place] [address] 06/13/2022 10:30:08 06/19/2022 09:35:48 Mixed hyperlipidemia 585975201 E78.2 07/06/2020 [id number] Trig 441 HDL 32 LDL 150 07/26/2021 [...] try Atorvastat in 20mg daily and LSM [id number] [facility] [address] [address] 06/20/2022 11:46:01 06/23/2022 15:03:46 Acute urinary tract infection 504829030 N39.0 UA dip + nitrates Burn of skin 928024702 T 30.0 Body mass index 30+ - obesity 216271473 Z68.39 BMI 37.7Health y body weight 105-766 [id number] [facility] [address] [address] 08/14/2022 12:22:26 08/15/2022 11:44:01 Obesity 418725787 E66.9 BMI 37.4Health y body weight 105-135 Acute conj unctivitis of left eye 2967901455 77098 H10.32 Depression screening 171 960165 Z13.31 PHQ2-9 negative Mental hea lth screening 105419921 Z13.39 ANDIE-7 negative [id number] [facility] [address] [place], [place] [address] 08/27/2022 11:10:48 08/29/2022 18:13:08 Allergic reaction 295605119 T78.40XA Had popcorn at the [facility] new detergents , lotions, medicinesN o other family member with rashNo respirator y symptoms Pruritic rash 10309821 L 28.2 Body mass index 30+ - obesity 697881070 Z68.39 BMI 37.4Health y body weight 105-135 Depression screening 171 625965 Z13.31 PHQ2-9 negative Mental hea lth screening 636006974 Z13.39 ANDIE-7 negative 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 seen by dermatolog ist in 2016given TCE1%Doxyc ycline 100mg bid #30 [id number] [facility] [address] [address] 09/23/2022 11:07:35 09/25/2022 13:21:26 Body mass index 30+ - obesity 770109689 Z68.39 BMI 38.3Health y body weight 105-135 Urinary symptoms 9663594 08 R39.9 Microscopic hematuria 19 3417503 R31.29 Depression screening 171 466702 Z13.31 PHQ2-9 negative Mental hea lt screening 504607995 Z13.39 ANDIE-7 negative [id number] Chuck Craig [facility] [address] [place] [address] 10/03/2022 11:55:36 10/07/2022 08:33:38 Mixed hyperlipidemia 236123240 E78.2 07/06/2020 [id number] Trig 441 HDL 32 LDL 150 07/26/2021 [...] LSM Uncontroll ed type 2 diabetes mellitus 641326720 E11.65 HA1C 8.5 [id number] 6.4 on 07/06/2020 will continue Metformin 1000mg 1 po bidcontinu e trulicity but increaseMo nitor bs readings before and after meals (2Hrs) keep log 06/13/2022 BUN 13creat 0.41eGFR 134 Generalize d anxiety disorder 81816573 F41.1 Will continue treatmentE scitalopra m 20mg dailyKlono pin for severe anxiety symptomsre commend psychother apist visits-amy l with problems or thoughts of harming self Obesity 862461250 E66.9 BMI 38.3Health y body weight 105-135 Body mass index 30+ - obesity 648491365 Z68.39 BMI 38.3Health y body weight 105-135 Chronic dermatitis 06777 007 L30.9 Seen by derm 02/2016 given about same treatment she had received from this office. SHe wishes to continue treatment. 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 every 6 hrs as necessary Venous varices 415049694 I83.92 weight losselevat e legssuppor t hoseibupro fen prn Depression screening 171 138838 Z13.31 PHQ2-9 negative Mental hea lth screening 850741210 Z13.39 ANDIE-7 negative [id number] [facility] [address] [place] [address] 12/11/2022 10:13:00 12/12/2022 13:02:56 Pain in right heel 8143333986 445986 M79.671 Generalize d anxiety disorder 65167972 F41.1 Will continue treatmentE scitalopra m 20mg dailyKlono pin for severe anxiety symptomsre commend psychother apist visits-amy l with problems or thoughts of harming self Body mass index 30+ - obesity 818859573 Z68.39 BMI 38.4Health y body weight 105-696 [id number] [facility] [address] [place] [address] 03/09/2023 12:30:17 03/18/2023 11:17:40 Urinary symptoms 104705188 R39.9 Active or passive immunization 413010548 Z23 Dysuria 70180330 R30.0 self swab Depression screening 171 709457 Z13.31 PHQ2-9 negative Mental hea [facility] screening 553921728 Z13.39 ANDIE-7 negative [id number] [facility] [address] [place] [address] 04/21/2023 12:34:51 04/23/2023 14:28:39 Uncontrolled type 2 diabetes mellitus 052746849 E11.65 HA1C 9.6 worsewill continue Metformin 1000mg 1 po bidstop trdavid steward bs readings before and after meals (2Hrs) keep log 06/13/2022 BUN 13creat 0.41eGFR 134 Generalize d anxiety disorder 91432025 F41.1 Will continue treatmentE scitalopra m 20mg dailyKlono pin for severe anxiety symptomsre commend psychother chasidy liu-amy l with problems or thoughts of harming self Mixed hyperlipidemia 267 220603 E78.2 07/06/2020 [id number] Trig 441 HDL 32 LDL 150 07/26/2021 [...] Atorvastat in 20mg daily and LSM Obesity 306992987 E66.9 BMI 38.8Health y body weight 105-135 Body mass index 30+ - obesity 225519374 Z68.39 BMI 38.8Health y body weight 105-135 Chronic dermatitis 89905 007 L30.9 Seen by derm 02/2016 given about same treatment she had received from this office. SHe wishes to continue treatment. Cystic acne 72075346 L70 .0 drink a lot of water with this medication and daily banana Multiple environmental allergies 563786059 T78.49XD igE 645 plus multiple specific environmen sven allergensc ontinue otc antihistam ine Excess morales niculus of abdomen 9631107342 101 E65 Allergy to fish 40080573 2 Z91.013 + allergen profile to fishGets rash Vitamin D deficiency 347 69147 E55.9 11/01/2021 Vitamin D 11.3 buy otc vitamin D3 1000 IU once daily Hyperpigme ntation of skin 96092693 L81.9 continue trilumause daily sunscreenr eferring to derm Venous varices 772405753 I83.92 weight losselevat e legssuppor t hoseibupro fen prn Depression screening 171 575719 Z13.31 PHQ2-9 negative Mental hea lth screening 639705943 Z13.39 ANDIE-7 negative Active or passive immunization 247988234 Z23 Cholelithi asis without obstruction 48442885 K80.20 wants GB removal Steatosis of liver 24756 1007 K76.0 04/15/2023 CT abd/pelvis w/con shows fatty liver, Hepatomega ly, yessica inguinal lymphadeno harmeet, cholelithi asis and R enlarged ovary. Abnormal l iver function 32765307 K76.89 04/15/2023 CT abd/pelvis w/con shows fatty liver, Hepatomega ly, yessica inguinal lymphadeno harmeet, cholelithi asis and R enlarged ovary. Inguinal lymphadenopathy 788725262 R59.0 04/15/2023 CT abd/pelvis w/con shows fatty liver, Hepatomega ly, yessica inguinal lymphadeno harmeet, cholelithi asis and R enlarged ovary. Anxiety 93886035 F41.9 psychother apist listauto relaxation exerciseRX for prn use Acute urin wang tract infection 258842659 N39.0 [id number] Chuck Craig [facility] [address] [place] [address] 05/26/2023 10:56:48 05/29/2023 10:51:17 Urinary symptoms 209210318 R39.9 Dysuria 56554199 R30.0 Depression screening 171 933582 Z13.31 PHQ2-9 negative Mental hea [facility] screening 903502998 Z13.39 ANDIE-7 negative Postviral cough 34412718 4 R05.3 [id number] Chuck Craig [facility] [address] [place] [address] 08/20/2023 11:47:59 08/24/2023 15:31:00 Mixed hyperlipidemia 408476676 E78.2 07/06/2020 [id number] Trig 441 HDL 32 LDL 150 07/26/2021 [...] LSM Body mass index 30+ - obesity 810761117 Z68.39 BMI 38.3Health y body weight 105-135 Uncontroll ed type 2 diabetes mellitus 932676462 E11.65 HA1C 9.6 worsewill continue Metformin 1000mg 1 po bidstop trulicityi ncrease mounjaro 5 mg once weekly to 7.5mg once weekly MounjaroMo nitor bs readings before and after meals (2Hrs) keep log 06/13/2022 BUN 13creat 0.41eGFR 134 04/21/2023 BUN 13Creat 0.55eGFR 124 Generalize d anxiety disorder 43592948 F41.1 Will continue treatmentE scitalopra m 20mg dailyKlono pin for severe anxiety symptomsre commend psychother apist visits-amy l with problems or thoughts of harming self Multiple environmental allergies 596400959 T78.49XD igE 645 plus multiple specific environmen sven allergensc ontinue otc antihistam ine Obesity 092147365 E66.9 BMI 38.8Health y body weight 105-135 Chronic dermatitis 10773 007 L30.9 Seen by derm 02/2016 given about same treatment she had received from this office. SHe wishes to continue treatment. Cystic acne 95321945 L70 .0 drink a lot of water with this medication and daily bananaderm will be starting accutane Excess morales niculus of abdomen 2301234588 101 E65 Has a rash itchysweat y red wet Allergy to fish 82830153 2 Z91.013 + allergen profile to fishGets rash Vitamin D deficiency 347 32064 E55.9 11/01/2021 Vitamin D 11.// 024 Vitamin D <4.0buy otc vitamin D3 1000 IU once daily Hyperpigme ntation of skin 44637877 L81.9 continue triluma-brush s from [place] daily sunscreenr eferred to dermderm to start accutane Venous varices 313538051 I83.92 weight losselevat e legssuppor t hoseibupro fen prn Steatosis of liver 49333 1007 K76.0 04/15/2023 CT abd/pelvis w/con shows fatty liver, Hepatomega ly, yessica inguinal lymphadeno harmeet, cholelithi asis and R enlarged ovary. Depression screening 171 829504 Z13.31 PHQ2-9 negative Mental hea lt screening 150713708 Z13.39 ANDIE-7 negative Cholelithi asis without obstruction 10741076 K80.20 wants GB removalsee n surgeonwil l be having removal Abnormal l iver function 69602414 K76.89 04/15/2023 CT abd/pelvis w/con shows fatty liver, Hepatomega ly, yessica inguinal lymphadeno harmeet, cholelithi asis and R enlarged ovary. Anxiety 49744755 F41.9 psychother apist listauto relaxation exerciseRX for prn use Right uppe r quadrant pain 988071790 R10.11 [id number] Suzie Arevalo RN [facility] [address] [place] [address] 09/01/2023 10:14:59 09/09/2023 15:32:26 Mixed hyperlipidemia 514328863 E78.2 07/06/2020 [id number] Trig 441 HDL 32 LDL 150 07/26/2021 [...] and LSM Right uppe r quadrant pain 845275763 R10.11 [id number] [facility] [address], [place] [address] 09/03/2023 12:13:17 10/05/2023 10:44:57 Obesity 549470604 E66.9 BMI 37.2Health y body weight 105-135 Body mass index 30+ - obesity 565162121 Z68.39 BMI 37.2Health y body weight 105-135 Pre-surger y evaluation 352023671 Z01.818 32 y/o HF presents for medical clearance for gall bladder surgery on 09/2023. The patient had multiple chronic medical problems: DM2, HPLD, ANDIE; BMI 30+, Hepatic steatosis. Her last HA1C on 08/20/2023 was 6.6. The patient has bee losing weight and exercising . She is not a smoker or uses illicit drugs. Active or passive immunization 134791055 Z23 Type 2 ana betes mellitus 08067124 E11.9 08/20/2023 HA1c 6.6 Mixed hyperlipidemia 267 238010 E78.2 07/06/2020 [id number] Trig 441 HDL 32 LDL 150 07/26/2021 [...] try Atorvastat in 20mg daily and LSM [id number] [facility] [address], [place] [address] 11/02/2023 14:48:03 11/04/2023 16:21:33 Body mass index 30+ - obesity 818527712 Z68.39 The patient was started on phentermin e tabs 08/20/2023 to aid with her appetite/w eight loss. Back in August the patient weighed in at 216 She is 205 today. She continues to monitor diet and exercising .BMI 36.4Health y body weight 105-135 Obesity 346349065 E66.9 The patient was started on phentermin e tabs 08/20/2023 to aid with her appetite/w eight loss. Back in August the patient weighed in at 216 She is 205 today. She continues to monitor diet and exercising .BMI 36.4Health y body weight 105-135 Chronic dermatitis 87981 007 L30.9 Seen by derm 02/2016 given about same treatment she had received from this office. SHe wishes to continue treatment. Mental hea [facility] screening 233659061 Z13.39 ANDIE-7 negative [id number] Chuck Craig [facility] [address], [place] [address] 12/14/2023 12:34:48 12/17/2023 11:42:04 Body mass index 30+ - obesity 661076183 Z68.39 The patient was started on phentermin [...] I 35.1Health y body weight 105-135 Obesity 117155529 E66.9 BMI 35.1Health y body weight 105-445 [id number] Chuck Craig, [facility] [address], [place] [address] 02/05/2024 12:44:32 02/12/2024 15:37:33 Uncontrolled type 2 diabetes mellitus 432106303 E11.65 HA1C 6.0 per patient at last checkwill continue Metformin 1000mg 1 po bidincreas e mounjaro 7.5mg once weekly to 10mg once weekly MounjaroMo nitor bs readings before and after meals (2Hrs) keep log 06/13/2022 BUN 13creat 0.41eGFR 134 04/21/2023 BUN 13Creat 0.55eGFR 124 Mixed hyperlipidemia 267 011218 E78.2 07/06/2020 [id number] Trig 441 HDL 32 LDL 150 07/26/2021 [...] LSM Body mass index 30+ - obesity 746233676 Z68.39 BMI 34.7Health y body weight 105-135 Generalize d anxiety disorder 13749818 F41.1 Will continue treatmentE scitalopra m 20mg dailyKlono pin for severe anxiety symptomsre commend psychother apist visits-amy l with problems or thoughts of harming self Anxiety 94956877 F41.9 auto relaxation exerciseRX clonazepam at home for prn use Multiple environmental allergies 670491975 T78.49XD igE 645 plus multiple specific environmen sven allergensc ontinue otc antihistam ine Obesity 976964542 E66.9 BMI 34.7Health y body weight 105-135adv ised will provide RX phentermin e 3 months on 3 months off as long as some weight loss and no side effects Hyperpigme ntation of skin 83473198 L81.9 continue triluma-brush s from [place] daily sunscreenr eferred to derm Chronic dermatitis 61465 007 L30.9 Seen by derm 02/2016 given about same treatment she had received from this office. SHe wishes to continue treatment. Cystic acne 07475078 L70 .0 drink a lot of water with this medication and daily bananaderm will be starting accutane Excess morales niculus of abdomen 0198952976 101 E65 Has a rash itchysweat y red wet Allergy to fish 80723817 2 Z91.013 + allergen profile to fishGets rash Vitamin D deficiency 347 83308 E55.9 11/01/2021 Vitamin D 11./2 024 Vitamin D <4.0buy otc vitamin D3 1000 IU once daily Venous varices 016755140 I83.92 weight losselevat e legssuppor t hoseibupro fen prn Steatosis of liver 1007 K76.0 04/15/2023 CT abd/pelvis w/con shows fatty liver, Hepatomega ly, yessica inguinal lymphadeno harmeet, cholelithi asis and R enlarged ovary. Abnormal l iver function 45785383 K76.89 04/15/2023 CT abd/pelvis w/con shows fatty [...] [place] Member ID Guarantor Name 09/01/2023 2 [place] [facility] Yasmeen Ny [id number] Yasmeen Ny 09/01/2023 1 [employer] - ALLIED BENEFITS - OPEN ACCESS [id number] Yasmeen Ny [id number] Yasmeen Ny 09/03/2023 2 [place] [facility] Yasmeen Ny [id number] Yasmeen Ny 09/03/2023 1 [employer] - ALLIED BENEFITS - OPEN ACCESS [id number] Yasmeen Ny [id number] Yasmeen Ny 11/02/2023 2 [place] [facility] Yasmeen Ny [id number] Yasmeen Ny 11/02/2023 1 [employer] - ALLIED BENEFITS - OPEN ACCESS [id number] Yasmeen Ny [id number] Yasmeen Ny 12/14/2023 2 [place] [facility] Yasmeen Ny [id number] Yasmeen Ny 12/14/2023 1 [employer] - ALLIED BENEFITS - OPEN ACCESS [id number] Yasmeen Ny [id number] Yasmeen Ny 02/05/2024 2 [place] [facility] Yasmeen Ny [id number] Yasmeen Ny 02/05/2024 1 [employer] - ALLIED BENEFITS - OPEN ACCESS [id number] Yasmeen Ny [id number] Yasmeen Ny Notes Date Note Type Note [...] 3 HPV vaccine . Has no contraindications. WELLINGTON Hancock Attn: Accounting ,[address] [place], [address] , [facility] 09/03/2023 18:04:02 024 text/ht ml ObesityReported bypatient.Diagnosis [...] a refill triamcinolone for her chronic dermatitis. WELLINGTON Hancock Attn: Accounting ,[address] [place], [address] , [facility] 11/02/2023 15:40:54 024 text/ht ml ObesityReported bypatient.Context:no [...] has not gotten elastogram done yet. Chuck Craig [employer]- Attn: Accounting ,[address] [place], [address] , [facility] 12/14/2023 13:05:16 024 text/ht ml Anxiety/DepressionReported bypatient.Severity:denies [...] appetite good; energy good; no apathy; maintaining functionality Diabetes F/UReported bypatient.Review finger sticks:fastin; post breakfast: 160 [...] menstruationHyperlipidemiaReported bypatient.Type of hyperlipidemia:combined Duration:chronic;intermittent Prior Tests:07/06/2020 [id number] Trig 441 HDL 32 LDL 150 07/26/2021 [...] has clonazepam at home for prn anxiety. Chuck Craig, [employer] Attn: Accounting ,[address] [place], [address] , [facility] 02/05/2024 15:15:18 OBGyn Episode Ob Episode Information Episode Created Date Number of Fetuses Patient Bloodtype Patient rh Status Prepregnancy Weight lbs Domestic Partner Domestic Partner Phone Father Name Electronic Imaging System Operator Status 06/06/19 21 1 CLOSED Fetus Data First Name Last Name Admitted to NICU Weight (g) Sex Living Outcome Pediatric Complications Fetus ID Race Codes Race Delivery Type M [id number] Vaginal Rajeev Calculation Initial Rajeev Date Initial [...]
--- OUTSIDE RECORDS SUMMARY | 2024-08-08 02:12 | XMS_ITS | Continuity of Care Document ---
Author Organization [facility] Address [address] [place] [address] Phone Care Team Providers Care Sr Risk Management Consultant Name Role Phone Serg Caban MD Unavailable Ruchi vailable Medications Medication Instructions Dosage Effective Dates (start - stop) Status Comments triamcinolone acetonide 0.1 % Topical Cream apply by TOPICAL route 2 times every day a thin film to the affected skin areas - Active quantity in grams Procedures Procedure Date OFFICE/OUTPATIENT VISIT, [facility] [place] OFFICE/OUTPATIENT VISIT, [facility] Advance Directives Directive Yes / No Effective Date File Name No Information Encounters Encounter Description Practice Location Reason(s) For Visit Diagnoses Date Provider Providers Copied on Encounter [facility] , [address], [place], [place], [address], tel:[phone] [facility] No Information Marlyn Ulrich. [address], [place], [place], [address], . tel:[phone] OFFICE/OUTPATI ENT VISIT, EST [facility] , [address], [place], [place], [address], tel:[phone] [facility] exam (chief complaint) Intestinal infection due to other organism, not elsewhere classified Marlyn Ulrich. [address], [place], [place], [address], . tel:[phone] [facility] , [address], [place], [place], [address], tel:[phone] [facility] No Information Marlyn Ulrich. [address], [place], [place], [address], [place]. tel:[phone] OFFICE/OUTPATI ENT VISIT, [facility] [place] , [address], [place], [place], [address], tel:[phone] [facility] back pain (chief complaint) Backache Dominiquelorikelsey Ulrich. [address], [place], [place], [address], [place]. tel:[phone] Family History Family Member Type Diagnosis Age At Onset No Information Payers Payer name Insurance type Covered libertarian ID [facility](s) [facility] 2546 [id number] Social History Type Description Quantity Date Captured [...]
--- OUTSIDE RECORDS SUMMARY | 2024-08-08 02:12 | XMS_ITS | Encounter Summary ---
Author Organization [facility] Address [address] [facility] [place] [address] Care Team Providers Care Freight Caller Name Role Phone Chuck Nelson Marcelo CLINICAL WRITER-TOOL CRIB CLERK Primary Care Pro vider Encounter Details Date Type Department Care Team (Late st Contact Info) Description 08/01/2024 Orders Only [facility] MATERNAL/ EVALUATION UNIT [address] [place] [address] Elaine Sorenson RN Social History Tobacco Use Types Packs/Day Years [...] and heating? Not hard at all 02/24/2024 [facility] - Occupational Stress [...] things needed for daily living? No 02/24/2024 [place] Depression Scale Answer Date Recorded [place] Depression Scale Total 1 03/01/2024 The thought [...] any time in the past 12 m onths, were you homeless or living in a skilled nursing (including now)? Yes 02/24/2024 Estimated Date of [...] Info) Description 08/23/2024 1:15 PM CDT Appointment [facility] MATERNAL/ EVALUATION UNIT [address] [place], [place] [address]lori. [address] [place] [address] 08/23/2024 2:15 PM CDT Appointment [facility] MATERNAL/ EVALUATION UNIT [address] [place] [address] [address] [place] [address] 08/23/2024 3:10 PM CDT Appointment [facility]NAL/ EVALUATION UNIT [address] [place] [address] [address] [place] [address] 08/30/2024 1:00 PM CDT Appointment [facility] MATERNAL/ EVALUATION UNIT [address] [place] [address] [address] [place] [address] 08/30/2024 1:30 PM CDT Appointment [facility] MATERNAL/ EVALUATION UNIT [address] [place] [address] 09/06/2024 1:00 PM CDT Appointment [facility] MAT[facility]NAL/ EVALUATION UNIT [address] [place] [address] 09/06/2024 1:30 PM CDT Appointment [facility]NAL/ EVALUATION UNIT [address] [place] [address] documented as of this encounter Visit Diagnoses Not on filedocumented in this encounter Care Teams Freight Caller Relationship Specialty Start Date End Date Chuck Nelson, [facility] [address] [address] PCP - General Nurse Practitioner 08/25/22 documented as of this encounter
[2024-08-08 02:30] VITALS: BP 145/86; PULSE 79
[2024-08-08 02:45] VITALS: BP 134/76; PULSE 73
[2024-08-08 02:56] LABS: Add Urine Microscopic? YES; Appearance Urine Clear (Clear); Bacteria Urine Rare /hpf; Bilirubin Urine Negative (Negative); Blood Urine Negative (Negative); Color Urine Yellow (Yellow); Glucose Urine UA Negative (Negative); Ketones Urine Negative (Negative); Leukocyte Esterase Ur 2+ LEU/UL (Negative); Need Manual Microscopic Reviewed; Nitrate Urine Negative (Negative); Non Pathogenic Casts 0-2; Protein Urine Negative (Negative); RBC Urine 0-2 /hpf (0-2); Specific Grav Ur 1.007 (1.001-1.035); Squamous Epithelial Cell Urine Few /hpf (Few); Urobilinogen Urine 0.2 mg/dL (<2.0); WBC Urine 0-5 /hpf (0-3)
[2024-08-08 03:00] VITALS: BP 131/73; PULSE 72
[2024-08-08 03:15] VITALS: BP 134/72; PULSE 73
[2024-08-08 03:23] VITALS: BMI 37.8
--- NOTE | 2024-08-08 03:24 | OBADM ---
This patient, Yasmeen Ny, admitted to the OB room OB Post 112 for observation. Patient/family oriented to hospital policies and general routines including ID bracelet, bed and alarms, visiting hours, pain management, procedures, bathroom and other care routines, personal items, smoking policy, room service/diet, and visiting hours. Patient/Family are encouraged to report perceived risks to care and to ask questions if they do not understand what they are told or what they should do.
[2024-08-08 03:30] VITALS: BP 132/70; PULSE 75
--- NOTE | 2024-08-29 10:10 | PM.OBTRLD ---
OB - Triage/Final Diagnosis Visit Information Comments/Additional reasons for admission: I have assessed the risk for this patient, Yasmeen Ny, and determined that she would benefit from observation care. Evaluation Laboratory results: Laboratory Tests 08/08/24 02:33 Urine Color Yellow Urine Appearance Clear Urine pH 7.0 Ur Specific [place]ass 1.007 Urine Protein Negative Urine Glucose (UA) Negative Urine Ketones Negative Ur Blood (Man) Negative Urine Nitrate Negative Urine Bilirubin Negative Urine Urobilinogen 0.2 Add Ur Microanalysis Reviewed Leukocyte Esterase Rfl 2+ H Urine RBC 0-2 Urine WBC 0-5 Ur Squamous Epith Cells Few Urine Bacteria Rare Urine Casts 0-2 Final Diagnosis (1) False labor: Code(s): O47.9 - False labor, unspecified Status: Acute
== END 2024-08-08 03:47 | disposition home or self-care (01) ==
PROVIDERS: Admitting Provider Obstetrics & Gynecology; Visit Provider Obstetrics & Gynecology
DX: O47.03 False labor before 37 completed weeks of gestation, third trimester (principal); Z3A.29 29 weeks gestation of pregnancy
CPT/HCPCS: 81001; 87086; G0378; G0379

== ENCOUNTER 2024-08-31 21:11 | Observation (INO) | payer OTHER, SELFPAY ==
--- NOTE | 2024-08-31 21:11 | PC.NURSE ---
2110- Pt is a that presents to unit with complaints of abd pain since last night rating 8/10 and feeling like I peed myself . Pt states only complications this has been GDM. Pt denies any vaginal bleeding or contractions and states she has good movement. Abdomen palpates soft. Pt states she has a history of recurring UTI's and that the pain she is currently experiencing feels like a UTI. Pt states she took Tylenol and AZO this evening but it did not provide relief. ROM+ was performed at this time and has since resulted negative. Pt denies any intercourse within the past 24 hours or trauma to the abdomen.
--- OUTSIDE RECORDS SUMMARY | 2024-08-31 21:20 | XMS_ITS | Continuity of Care Document ---
Author Organization [facility] Address [address] [place] [address] Phone Care Team Providers Care Mid Level Project Manager Name Role Phone Serg Caban MD Unavailable Ruchi vailable Medications Medication Instructions Dosage Effective Dates (start - stop) Status Comments triamcinolone acetonide 0.1 % Topical Cream apply by TOPICAL route 2 times every day a thin film to the affected skin areas - Active quantity in grams Procedures Procedure Date OFFICE/OUTPATIENT VISIT, [facility] OFFICE/OUTPATIENT VISIT, [facility] Advance Directives Directive Yes / No Effective Date File Name No Information Encounters Encounter Description Practice Location Reason(s) For Visit Diagnoses Date Provider Providers Copied on Encounter [facility] , [address], [place], [place], [id number], tel:[phone] [facility] No Information Marlyn Ulrich. [address], [place], [place], [address], . tel:[phone] OFFICE/OUTPATI ENT VISIT, EST [facility] , [address], [place], [place], [address], tel:[phone] [facility] [place] exam (chief complaint) Intestinal infection due to other organism, not elsewhere classified Marlyn Ulrich. [address], [place], [place], [address], . tel:[phone] [facility] , [address], [place], [place], [address], tel:[phone] [facility] No Information Marlyn Ulrich. [address], [place], [place], [address], [place]. tel:[phone] OFFICE/OUTPATI ENT VISIT, [facility] , [address], [place], [place], [address], tel:[phone] [facility] [place] back pain (chief complaint) Backache Dominiquelorikelsey Ulrich. [address], [place], [place], [address], [place]. tel:[phone] Family History Family Member Type Diagnosis Age At Onset No Information Payers Payer name Insurance type Covered republican ID [facility](s) [facility] [id number] Social History Type Description Quantity Date Captured [...]
--- OUTSIDE RECORDS SUMMARY | 2024-08-31 21:21 | XMS_ITS | Encounter Summary ---
Author Organization [facility] Address [address] [place] [address] Care Team Providers Care Biazzi Nitrator Operator Name Role Phone Chuck Nelson PERSONAL COMPUTER NETWORK ENGINEER-HEALTHCARE MANAGEMENT CONSULTANT Primary Care Pro vider Reason for Visit * Reason Onset Date Comments MEDICATION REFILL 05/23/2024 Encounter Details Date Type Department Care Team (Late st Contact Info) Description 05/23/2024 Refill [facility] EVALUATION [facility] [address] [facility] [place] [phone] Luana Plummer MD [address] [facility] [address] [place] [address] MEDICATION REFILL Social History Tobacco [...] heating? Not hard at all 02/24/2024 [facility] [place] [facility] Occupat ional Health - Occupational Stress [...] things needed for daily living? No 02/24/2024 [place] Depression Scale Answer Date Recorded [place] Depression Scale Total 1 03/01/2024 The thought [...] any time in the past 12 m [place] [place], were you homeless or living in a fci (including now)? Yes 02/24/2024 Estimated Date of Delivery Comme nts Yes 10/19/2024 Based on last ok nstrual period of 01/13/2024 Sex and Gender Information Value Date Recorded Sex Assigned at Not on file Legal Sex Female 2:51 PM CDT Gender Identity Not on file Sexual Orientation Not on file documented as of this encounter Plan of Treatment Upcoming Encounters Date Type Department Care Team (Late st Contact Info) Description 09/06/2024 1:00 PM CDT Appointment [facility]/ EVALUATION UNIT [address] [place] [address] [address] [place] [address] 09/06/2024 1:30 PM CDT Appointment [facility] EVALUATION UNIT [facility] [address] [place] [address] 09/06/2024 2:30 PM CDT Appointment [facility] EVALUATION UNIT [address] [place], [place] [address]ina [address] [place] [address] 09/06/2024 2:30 PM CDT Appointment [facility]ATION [facility] [address] [place] [address] 09/13/2024 1:30 PM CDT Appointment [facility] [address] [place] [address] 09/13/2024 2:30 PM CDT Appointment [facility] [address] [place] [address] 09/20/2024 1:00 PM CDT Appointment [facility] [address] [place] [address] 09/20/2024 2:15 PM CDT Appointment [facility] [address] [place] [address] 09/27/2024 1:00 PM CDT Appointment [facility] [address] [place] [address] 09/27/2024 2:15 PM CDT Appointment [facility] [address] [place] [address] documented as of this encounter Visit Diagnoses Diagnosis Pre-existing type 2 diabetes mellitus during , antepartum (HCC) documented in this encounter Care Teams Biazzi Nitrator Operator Relationship Specialty Start Date End Date Chuck Nelson APRN-EMILY [address] [place] [address] [phone] PCP - General Nurse Practitioner 08/25/22 documented as of this encounter
--- OUTSIDE RECORDS SUMMARY | 2024-08-31 21:21 | XMS_ITS | Clinical Summary ---
Author Organization [facility] Address [address] [place] [address] Care Team Providers Care Poultry Pinner Name Role Phone OmarNarcisoramakrishnaleanna NEGRITO Primary Care Provider [phone] Christopher Nelson MD Unavailable [phone] Allergies Active Allergy Reactions Criticality Noted Date [...] on file Legal Sex Female 7:51 PM MANUFACTURING CHIEF ENGINEER Gender Identity Not on file Sexual Orientation [...] was last reviewed 2021. Testing performed by: [address] [address] Blood 09/24/2023 8:42 AM CDT 09/24/2023 9:06 AM CDT Sajan Pollard MD LAB BLOOD ORDERABL ES Final Result Performing Organization Address City/[facility]/ZIP Co de Phone Number KELLEN [address] [facility] [place] [address] * (ABNORMAL) Hemoglobin A1c (09/24/2023 8:42 AM CDT) Hgb A1C 6.8(H) 4.0 - 5.6 % Comment:Testing performed by : [address] [address] Estimated Average Glucose 148 mg/dL KELLEN Comment: The ADA recommends reporting an estimated Average Glucose (eAG) with all Hemoglobin A1c results using the equation derived from a study of 507 normal and diabetic adults. Minority populations were underrepresented and children were not included. (Diabetes Care 31:2084-9983, 2008). The eAG is not equivalent to a fasting glucose. Testing performed by: [address] [address] Blood 09/24/2023 8:42 AM CDT 09/24/2023 9:06 AM CDT Narrative KELLEN - 09/24/2023 9:40 AM CDT PRE SURGERY TESTING ONLY Sajan Pollard MD LAB BLOOD ORDERABL ES Final Result KELLEN [address] [facility] [place] [address] from Last 3 Months or Most Recently Relevant to Health Maintenance Insurance [facility] CHOICE PLUS [employer] OPEN ACCESS [employer] OPEN ACCESS Care Teams Poultry Pinner Relationship Specialty Start Date End Date Chuck Nelson NP PCP - General 01/26/19 Christopher Nelson MD [address] [place] [id number] Consulting Physician General Surgery 09/30/23
--- OUTSIDE RECORDS SUMMARY | 2024-08-31 21:21 | XMS_ITS | Clinical Summary ---
Author Organization [facility] Address [address] [place] [address] Care Team Providers Care Ingot Header Name Role Phone Chuck Nelson RESIDENT CARE SUPERVISOR-WAD BLANKING PRESS ADJUSTER Primary Care Pro vider Source Comments [facility],non-owned Affiliates and Associated Physician Practices is amultiple site organization consisting of ambulatory clinics and hospital sitesin [place], [place], [place] and [place]. This disclosure is being madepursuant to the Care Everywhere program and may not contain all information available regarding this patient. Last updated 18.[facility] Allergies Active Allergy Reactions Criticality Noted Date [...] disease, with long-term current use of insulin ([facility]) Use 1 Each as directed 1 kit 024 Active blood glucose (OneTouch Verio) test stripIndicatio ns:Pre-existin g type 2 diabetes mellitus during , antepartum (HCC),Type 2 diabetes mellitus with stage 1 chronic kidney disease, with long-term current use of insulin ([facility]) To monitor blood glucose (sugar) 4x daily- fasting and 1 hour after meals 100 strip 5 Active Lancets (ONETOUCH DELICA PLUS 33G EXTRA FINE LANCET)Indicat ions:Pre-exist ing type 2 diabetes mellitus during , antepartum ([facility]),Type 2 diabetes mellitus with stage 1 chronic kidney disease, with long-term current use of insulin ([facility]) To monitor blood glucose (sugar) 4x daily- fasting and 1 hour after meals 100 Each 5 024 Active Glucagon (Baqsimi One Pack) 3 MG/DOSE POWD Stephan 1 Each into the nose as needed 1 Each Active Additional Information Patient not taking.Reason: Other, Reported on 06/08/2024 Continuous Glucose Sensor (Dexcom G7 Sensor) MISCIndication s:Pre-existing type 2 diabetes mellitus during , antepartum ([facility]) Use 1 Each Continuous for [...] type 2 diabetes mellitus during , antepartum ([facility]) Take 2 (two) tablets by mouth once daily 100 tablet 1 024 Active Vit-Fe Fumarate-FA (M-Raz Plus) 27-1 MG TABS 025 Active insulin glargine (Lantus/Semgle e) 100 units/mL penIndications :Type 2 diabetes mellitus with hyperglycemia, unspecified whether [place] insulin use ([facility]) Inject 22 units in the morning and 22 units at bedtime. Take dosages approximately 12 hours apart. Increase dose as directed due to increasing insulin requirements during . Max total daily dose = 50u 15 mL 5 025 Active magnesium oxide (Mag-Ox) 400 MG tablet Take 1 (one) tablet by mouth once daily 30 tablet 2 025 Active Insulin Pen Needle (TechLite Pen [place]) 32G X 4 MM MISCIndication s:Pre-existing type 2 diabetes mellitus during , antepartum ([facility]) Use 1 Each 5 times daily 150 Each 5 025 Active insulin lispro (HumaLOG;ADMel og) 100 UNIT/ML penIndications :Type 2 diabetes mellitus with hyperglycemia, unspecified whether salvage determiner insulin use (HCC) Inject 18u before small meals (<30g), 20 units before medium meals (30-45g), and 22u before large meals (>60g). Inject 6u with snacks. Inject 0-15 minutes before meals. Increase dose as directed during . Max total daily dose = 100 units. 30 mL 5 025 Active cephalexin (Keflex) 500 MG capsule Take 1 (one) capsule by mouth 2 times daily 14 capsule 025 Active metFORMIN (GLUCOPHAGE) 1000 MG tabletIndicati ons:Type 2 Diabetes Mellitus Take 2 (two) tablets by mouth 2 times daily with morning and evening meal Reasons: Type 2 Diabetes 2024 Discontinued(L ist Clean-Up) Insulin Pen Needle (TechLite Pen [place]) 32G X 4 MM MISCIndication s:Pre-existing type 2 diabetes mellitus during , antepartum ([facility]) Use 1 Each 5 times daily 150 Each 5 024 2024 Discontinued(R eorder) fluconazole (Diflucan) 150 MG tabletIndicati ons:Vaginitis affecting in second trimester, antepartum ([facility]) Take 1 (one) tablet by mouth once daily 1 tablet 025 2024 Discontinued(L ist Clean-Up) nitrofurantoin monohyd macro crystals (Macrobid) 100 MG capsule TAKE 1 CAPSULE BY MOUTH EVERY 12 HOURS FOR 7 DAYS 2024 Discontinued(L ist Clean-Up) amoxicillin (Amoxil) 500 MG capsule Take 1 capsule every 8 hours by oral route as directed for 5 days. 025 2024 Discontinued(L ist Clean-Up) insulin lispro (HumaLOG;ADMel og) 100 UNIT/ML penIndications :Type 2 diabetes mellitus with hyperglycemia, unspecified whether [place] insulin use (HCC) Inject 10u before small meals (<30g), 16 units before medium meals (30-45g), and 20u before large meals (>60g). Inject 6u with snacks. Inject 0-15 minutes before meals. Increase dose as directed during . Max total daily dose = 100 units. 30 mL 5 025 2024 Discontinued insulin glargine (Lantus/Semgle e) 100 units/mL penIndications :Type 2 diabetes mellitus with hyperglycemia, unspecified whether salvage determiner insulin use (HCC) Inject 18 units in the morning and 18 units at bedtime. Take dosages approximately 12 hours apart. Increase dose as directed due to increasing insulin requirements during . Max total daily dose = 50u 15 mL 5 025 2024 Discontinued(Keith yoder) Active Problems Patient Care Coordination No te Formatting of this note migh t be different from the original. [employer] form completed. Diapers given. 07/26/2024, 08/23/2024 Problem Noted Date Diagnosed Date Carrier of [...] 348K. Assessment & Plan (05/16/2020 12:49 PM ELEMENTARY SPANISH TEACHER): Resolution of headaches continues. Preeclampsia work up [...] triage. Assessment & Plan (05/09/2020 2:03 PM ELEMENTARY SPANISH TEACHER): Resolution of headaches this week. Preeclampsia work up negative on 04/30: PCR: 0.18, AST: 25, ALT: 35, creatinine: 0.50, platelets: 348K. Normotensive today. Asymptomatic for preeclampsia. MFM Plan: 1. Encouraged to continue to monitor for preeclampsia symptoms and if headache not relieved with interventions, to always alert primary OB or seek OB evaluation at OB triage. 2. Riboflavin instructions given to chicken picker OTC.. Assessment & Plan (05/02/2020 11:59 AM ELEMENTARY SPANISH TEACHER): Noticing headaches first thing in the morning [...] 5.8 Assessment & Plan (05/23/2020 12:34 PM ELEMENTARY SPANISH TEACHER): 24 hour urine/CMP: 04/30: PCR: 0.18, AST: [...] office who agreed. Recommendation given to primary Bulldozer Mechanic and patient sent to [facility] today [...] . Assessment & Plan (05/16/2020 1:23 PM ELEMENTARY SPANISH TEACHER): 24 hour urine/CMP: 04/30: PCR: 0.18, AST: [...] delivery planning. 9. Sent to L/D at [place] for continuous monitoring. Report called to both L/D and primary Bulldozer Mechanic's office regarding office visit today and decreased [...] reduction. Assessment & Plan (05/09/2020 12:01 PM ELEMENTARY SPANISH TEACHER): 24 hour urine/CMP: 04/30: PCR: 0.18, AST: 25, ALT: 35, creatinine: 0.50. hemoglobin A1c: 5.8%, 04/10; Previous A1c: 6% at 12 weeks. Reports normal dilated eye exam, records requested multiple times and never received. echo: completed and appropriate. Serial /28: EFW: 87% and 2028grams, AC: 95%. Anatomy [...] monitor. Assessment & Plan (05/02/2020 12:25 PM ELEMENTARY SPANISH TEACHER): 24 hour urine/CMP: 04/30: PCR: 0.18, AST: 25, ALT: 35, creatinine: 0.50 hemoglobin A1c: 5.8%, 04/10; Previous A1c: 6% at 12 weeks Compliant with 162 ASA Reports normal dilated eye exam, records requested multiple times and never received echo: completed and appropriate Serial growth last assessed 04/16: EFW: 87% and 202grams, AC: 95% Anatomy incomplete as of 04/16 [...] today. Assessment & Plan (04/25/2020 5:32 PM ELEMENTARY SPANISH TEACHER): 24 hour urine/CMP: pending hemoglobin A1c: 5.8%, [...] she is scheduled to do with primary Bulldozer Mechanic again this Thursday. 8. Reviewed importance of [...] lab. Assessment & Plan (04/11/2020 11:49 AM ELEMENTARY SPANISH TEACHER): 24 hour urine/CMP: pending, has to re-do [...] she is scheduled to do with primary Bulldozer Mechanic. 9. Reviewed importance of twice daily kick [...] exam. Assessment & Plan (03/28/2020 12:49 PM ELEMENTARY SPANISH TEACHER): 24 hour urine/CMP/hemoglobin A1c: plans to do [...] she becomes hypoglycemic. 7. Reviewed after hours [facility] triage number to call with any concerns. [...] Overview (04/05/2024): Insulin resistance;Recorded Elsewhere: No Location: [facility] Source: EHR Chronic: N Practice [...] Encounters Date Type Department Care Team Description 08/31/2024 Orders Only [facility] MATERNAL/ EVALUATION UNIT [address] [place] [address] Komal Ray MD 08/31/2024 Telephone [facility]/ EVALUATION UNIT [address] [place] [address] Cara Dent Scheduling 08/30/2024 1:16 PM CDT - 08/30/2024 11:59 PM CDT Hospital Encounter [facility]/ EVALUATION UNIT [address] [place] [address] Bird Stevenson MD Discharge Disposition: Home or Self Care 08/30/2024 1:00 PM CDT Hospital Encounter [facility] MATERNAL/ EVALUATION UNIT [address] [place] [id number] Bird Stevenson MD Discharge Disposition: Home or Self Care 08/30/2024 1:00 PM CDT Hospital Encounter [facility] MATERNAL/ EVALUATION UNIT [address] [place] [address] Bird Stevenson MD Discharge Disposition: Home or Self Care 08/30/2024 Travel 08/29/2024 Orders Only [facility] MATERNAL/ EVALUATION UNIT [address] [place] [address] Elaine Sorenson RN Dysuria during in third trimester ([facility]) 08/23/2024 1:24 PM CDT - 08/23/2024 11:59 PM CDT Hospital Encounter [facility] MATERNAL/ EVALUATION UNIT [address] [place] [address] Livan Anguiano DO Gross, Gilad A, MD Discharge Disposition: Home or Self Care 08/23/2024 1:24 PM CDT - 08/23/2024 11:59 PM CDT Hospital Encounter [facility]NAL/ EVALUATION UNIT [address] [place] [address] Livan Anguiano DO Gross, Gilad A, MD Discharge Disposition: Home or Self Care 08/23/2024 1:24 PM CDT - 08/23/2024 11:59 PM CDT Hospital Encounter [facility] MATERNAL/ EVALUATION UNIT [address] [place] [address] Livan Anguiano DO CERTIFIED HISTOLOGIC TECHNICIAN Discharge Disposition: Home or Self Care 08/23/2024 1:15 PM CDT - 08/23/2024 1:23 PM CDT Hospital Encounter [facility] MAT[facility]NAL/ EVALUATION UNIT [address] [place] [address] Livan Anguiano DO Discharge Disposition: Home or Self Care 08/23/2024 Travel 08/03/2024 12:56 PM CDT - 08/03/2024 11:59 PM CDT Hospital Encounter [facility]ERNAL/ EVALUATION UNIT [address] [place] [address] Dave Sevilla MD Discharge Disposition: Home or Self Care 08/03/2024 12:56 PM CDT - 08/03/2024 11:59 PM CDT Hospital Encounter [facility] MATERNAL/ EVALUATION UNIT [address] [place] [address] Dave Sevilla MD Discharge Disposition: Home or Self Care 08/03/2024 Travel 08/01/2024 Orders Only [facility]/ EV[facility]ATION UNIT [address] [place] [address] Elaine Sorenson RN 07/29/2024 Telephone [facility]/ [facility]UATION UNIT [address] [place] [address] Cara Dent 07/26/2024 1:58 PM CDT - 07/26/2024 11:59 PM CDT Hospital Encounter [facility]NAL/ EVALUATION UNIT [address] [place] [address] Eduar Hernandez MD Mostello, Dorothea Jean, MD Discharge Disposition: Home or Self Care 07/26/2024 1:58 PM CDT - 07/26/2024 11:59 PM CDT Hospital Encounter [facility] MAT[facility]NAL/ EVALUATION UNIT [address] [place] [address] Eduar Hernandez MD Mostello, Dorothea Jean, MD Discharge Disposition: Home or Self Care 07/26/2024 1:58 PM CDT - 07/26/2024 11:59 PM CDT Hospital Encounter [facility] MATERNAL/ EVALUATION UNIT [address] [place] [address] Eduar Hernandez MD Discharge Disposition: Home or Self Care 07/26/2024 Travel 07/20/2024 1:42 PM CDT - 07/20/2024 11:59 PM CDT Hospital Encounter [facility] - Cardiology [address] [place] [address] Moe Blackwell MD Discharge Disposition: Home or Self Care 07/20/2024 1:10 PM CDT - 07/20/2024 1:41 PM CDT Hospital Encounter [facility] - Cardiology [address] [place] [address] Sandy Perez MD Discharge Disposition: Home or Self Care 07/12/2024 1:53 PM CDT - 07/12/2024 11:59 PM CDT Hospital Encounter [facility] MATERNAL/ EVALUATION UNIT [address] [place] [address] Luana Plummer MD Discharge Disposition: Home or Self Care 07/12/2024 1:53 PM CDT - 07/12/2024 11:59 PM CDT Hospital Encounter [facility] MATERNAL/ EVALUATION UNIT [address] [place] [address] Luana Plummer MD Discharge Disposition: Home or Self Care 07/12/2024 Travel 06/28/2024 2:14 PM CDT - 06/28/2024 11:59 PM CDT Hospital Encounter [facility]NAL/ EVALUATION UNIT [address] [place] [address] Eduar Hernandez MD Chavan, Niraj R, MD Discharge Disposition: Home or Self Care 06/28/2024 2:14 PM CDT - 06/28/2024 11:59 PM CDT Hospital Encounter [facility]/ EVALUATION UNIT [address] [place] [address] Eduar Hernandez MD Chavan, Niraj R, MD Discharge Disposition: Home or Self Care 06/28/2024 2:14 PM CDT Hospital Encounter [facility]/ EVALUATION UNIT [address] [place] [address] Eduar Hernandez MD Discharge Disposition: Home or Self Care 06/28/2024 Travel 06/15/2024 12:34 PM ELEMENTARY SPANISH TEACHER - 06/15/2024 11:59 PM ELEMENTARY SPANISH TEACHER Hospital Encounter [facility] [address] [place] [address] Nhi Walker, FREDERICK-WAD BLANKING PRESS ADJUSTER Discharge Disposition: Home or Self Care 06/15/2024 12:34 PM ELEMENTARY SPANISH TEACHER - 06/15/2024 11:59 PM ELEMENTARY SPANISH TEACHER Hospital Encounter [facility] MATERNAL/ EVALUATION UNIT [facility] [address] [place] [address] Nhi Walker, RESIDENT CARE SUPERVISOR-WAD BLANKING PRESS ADJUSTER Discharge Disposition: Home or Self Care 06/15/2024 Travel 06/14/2024 Telephone [facility]/ EVALUATION UNIT [facility] [address] [place] [address] Elizabeth Chandler Scheduling 06/08/2024 12:53 PM ELEMENTARY SPANISH TEACHER - 06/08/2024 11:59 PM ELEMENTARY SPANISH TEACHER Hospital Encounter [facility] MATERNAL/ EVALUATION UNIT [facility] [address] [place] [address] Dave Sevilla MD Discharge Disposition: Home or Self Care 06/08/2024 12:53 PM ELEMENTARY SPANISH TEACHER - 06/08/2024 11:59 PM ELEMENTARY SPANISH TEACHER Hospital Encounter [facility] [address] [place] [address] Dave Sevilla MD Discharge Disposition: Home or Self Care 06/08/2024 12:30 PM ELEMENTARY SPANISH TEACHER Procedure visit [facility] [address] [place] [address] [address] [place] [address] Mary Sales MD Morbid obesity with BMI of 40.0-44.9, adult 06/08/2024 Travel 06/07/2024 Telephone [facility] Care [address] [place] [address] Taylor Yeboah Future Appointment from Last 3 Months Immunizations Immunization Administration [...] care, and heating? Not hard at all 08/23/2024 [employer] [facility] - Occupational Stress Questionnaire Answer Date Recorded Do you feel stress - tense, restless, nervous, or anxious, or unable to sleep at night because your mind is troubled all the time - these days? Not at all 08/23/2024 Hunger Vital Sign Answer Date Recorded Within the past 12 months, y ou worried that your food would run out before you got the money to buy more. Never true 08/24/19 25 Within the past 12 months, t he food you bought just didn't last and you didn't have money to get more. Never true 08/23/2024 PRAPARE - Transportation Answer Date Re corded In the past 12 months, has l ack of transportation kept you from medical appointments or from getting medications? No 09/2024 In the past 12 months, has l ack of transportation kept you from meetings, work, or from getting things needed for daily living? No 08/23/2024 [place] Depression Scale Answer Date Recorded [place] Depression Scale Total 1 03/01/2024 The thought of harming myself has occurred to me . Never 03/01/2024 Housing Stability Vital Sign Answer Terrence e Recorded In the last 12 months, was t here a time when you were not able to pay the mortgage or rent on time? No 08/23/2024 In the past 12 months, how m any times have you moved where you were living? 1 08/23/2024 At any time in the past 12 m onths, were you homeless or living in a senior living (including now)? No 08/23/2024 Estimated Date of Delivery Comme nts Yes 10/19/2024 Based on last me nstrual period of 01/13/2024 Sex and Gender Information Value Date Recorded Sex Assigned at Not on file Legal Sex Female 2:51 PM CDT Gender Identity Not on file Sexual Orientation Not on file Last Filed Vital Signs Vital Sign Reading Time Taken Comments Blood Pressure 125/84 08/23/2024 1:51 PM CDT Pulse 86 08/23/2024 1:51 PM CDT Temperature 36.6 C (97.8 F) 02/28/2024 2:00 PM ELEMENTARY SPANISH TEACHER Respiratory Rate 16 07/12/2024 3:12 PM CDT Oxygen Saturation 98% 02/28/2024 5:00 PM ELEMENTARY SPANISH TEACHER Inhaled Oxygen Concentration - - Weight 108.3 kg (238 lb 12.8 oz) 08/23/2024 1:51 PM CDT Height 162.6 cm (5' 4 ) 06/08/2024 12:5 9 PM ELEMENTARY SPANISH TEACHER Body Mass Index 40.99 06/08/2024 12:59 PM ELEMENTARY SPANISH TEACHER Plan of Treatment Upcoming Encounters Date Type Department Care Team (Late st Contact Info) Description 09/06/2024 1:00 PM CDT Appointment [facility] MATERNAL/ EVALUATION UNIT [facility] [address] [place] [id number] 09/06/2024 1:30 PM CDT Appointment [facility] MATERNAL/ EVALUATION UNIT [facility] [address] [place] [address] 09/06/2024 2:30 PM CDT Appointment [facility]/ EV[facility]ATION UNIT [facility] [address] [place] [address] 09/06/2024 2:30 PM CDT Appointment [facility]/ EVALUATION UN[facility] [address] [place] [address] 09/13/2024 1:30 PM CDT Appointment [facility] [id number]|2024-08-31 21:40:44|2024-08-31 21:40:44|OBADM||||"This patient, Yasmeen Ny, admitted to the OB room [facility] for observation. Patient/family oriented to hospital policies and general routines including ID bracelet, bed and alarms, visiting hours, pain management, procedures, bathroom and other care routines, personal items, smoking policy, room service/diet, and visiting hours. Patient/Family are encouraged to report perceived risks to care and to ask questions if they do not understand what they are told or what they should do. "
--- OUTSIDE RECORDS SUMMARY | 2024-08-31 21:21 | XMS_ITS | Data Portability ---
Author Organization [facility] Address [address] [place] [address] Care Team Providers Care Hebrew Cantor Name Role Phone CHUCK CRAIG Primary Care Provider Assessment Encounter Date Assessment Date Assessment LastModified by Organization Details LastModified Time 07/28/2024 07/28/2024 Patient is ___weeks . Discussed plan. Not available 07/28/2024 14:09:24 08/08/2024 08/08/2024 Patient is ___weeks . Discussed plan. Not available 08/08/2024 14:18:12 08/25/2024 08/25/2024 Patient is ___weeks . Discussed plan. Not available 08/25/2024 14:51:20 Plan of Treatment Reminders Order Date Submit Date Provider Last Modified By Organization Details Last Modified Time Details Appointments OB ROUTINE 2024 12:30P Raghavendra APONTE MD Not available Not available Not available NST 2024 01:00P M NST SCHEDULE Not available Not available Not available NST 2024 02:30P M NST SCHEDULE Not available Not available Not available OB ROUTINE 2024 03:30P Raghavendra APONTE MD Not available Not available Not available NST 2024 02:00P M NST SCHEDULE Not available Not available Not available OB ROUTINE 2024 02:45P Raghavendra APONTE MD Not available Not available Not available NST 2024 01:30P M NST SCHEDULE Not available Not available Not available OB ROUTINE 2024 02:15P M Barrett APONTE MD Not available Not available Not available NST 2024 01:00P M NST SCHEDULE Not available Not available Not available NST 2024 01:30P M NST SCHEDULE Not available Not available Not available OB ROUTINE 2024 02:00P Raghavendra APONTE MD Not available Not available Not available NST 2024 02:30P M NST SCHEDULE Not available Not available Not available OB ROUTINE 2024 03:00P Raghavendra APONTE MD Not available Not available Not available NST 2024 01:30P M NST SCHEDULE Not available Not available Not available OB ROUTINE 2024 02:00P Raghavendra APONTE MD Not available Not available Not available Lab urinalysi s, dipstick 2024 025 [email or web address] [address], [address], [place], [address], 07/18/2024 17:16:15 Referral None recorded. Procedures None recorded. Surgeries None recorded. Imaging non-stres s test 2024 025 [email or web address] [address], [address], [place], [address], 08/25/2024 16:32:44 Medication Orders None recorded. Patient TargetsNo targets recorded. Patient InstructionsNo instructions recorded. Reason for Referral None Reported. Results Created Date Observation Date Name Description Value Unit Range Abnormal Flag Note LastModifiedBy Organization Detail LastModifiedTime 07/19/1907/18/2024 WOMEN 'S HEALT H SWAB PLUS, COLLINS bacterial vaginosis (bv), tma Negati ve negati ve Not Available [facility] (Lab) [address], [place], [address], 07/19/2024 15:18:04 07/19/19 25 07/18/2024 WOMEN 'S HEALT H SWAB PLUS, COLLINS stephane species, tma Positi ve negati ve abnormal Not Available [facility] (Lab) [address] [facility], [place], [address], 07/19/2024 15:18:04 07/19/19 25 07/18/2024 WOMEN 'S HEALT H SWAB PLUS, COLLINS stephane glabrata, tma Negati ve negati ve Not Available [facility] (Lab) [address] [place], [address], 07/19/2024 15:18:04 07/19/19 25 07/18/2024 WOMEN 'S HEALT H SWAB PLUS, COLLINS trichomonas vaginalis, tma Negati ve negati ve Not Available [facility] (Lab) [address] [facility], [place], [address], 07/19/2024 15:18:04 07/19/19 25 07/18/2024 WOMEN 'S HEALT H SWAB PLUS, COLLINS chlamydia trachomatis, PCR Negati ve negati ve Not Available [facility] (Lab) [address] [place], [address], 07/19/2024 15:18:04 07/19/19 25 07/18/2024 WOMEN 'S [...] , C. parap arti is, C. dubli ni is. Testi ng is perfo rmed using the Trans cript ion Media bisi Ampli ficat ion metho d. Tests for Sushila da glabr aníbal, Trich omona s vagin ken, Chlam ydia trach omati s, and Neiss eria gonor rhoea e are also inclu ded in this panel . Not Available [facility] (Lab) [address] [facility], [place], [address], 07/19/2024 15:18:04 07/19/19 25 07/18/2024 CULTU RE: URINE result report SEE RESULT S BELOW abnormal Test: Cultu re: Urine Speci men Sourc e: Urine - Clean Catch Speci men Type: Urine Speci men Date: 2024 1611 Resul t Date: 025 0203 Resul t Statu s: Final resul t Abnor mal: Yes Resul ting Lab: [facility] [address] [facility] [address] Tel: CULTU RE ----- ----- ----- --- [...] lab withi n [address] [facility] (Lab) [address] , [place], [address], 07/20/2024 03:06:58 07/19/1907/18/2024 urina lysis , dipst ick Leukocytes POS Not Available [address], [place], [address], 07/18/2024 17:15:18 07/19/1907/18/2024 urina lysis , dipst ick Nitrite NEG Not Available [address], [place], [address], 07/18/2024 17:15:18 07/19/19 25 07/18/2024 urina lysis , dipst ick Urobilinogen NEG Not Available [facility] [address], [place], [address], 07/18/2024 17:15:18 07/19/19 25 07/18/2024 urina lysis , dipst ick Protein POS Not Available [place] [address], [place], [address], 07/18/2024 17:15:18 07/19/19 25 07/18/2024 urina lysis , dipst ick pH 5 Not Available [place] [address], [place], [address], 07/18/2024 17:15:18 07/19/19 25 07/18/2024 urina lysis , dipst ick Blood Not Available [place] [address], [place], [address], 07/18/2024 17:15:18 07/19/19 25 07/18/2024 urina lysis , dipst ick Specific [place] 1.020 Not Available [facility] [address], [place], [address], 07/18/2024 17:15:18 07/19/19 25 07/18/2024 urina lysis , dipst ick Ketone POS Not Available [place] [address], [place], [address], 07/18/2024 17:15:18 07/19/19 25 07/18/2024 urina lysis , dipst ick Bilirubin NEG Not Available [facility] lori [address], [place], [address], 07/18/2024 17:15:18 07/19/19 25 07/18/2024 urina lysis , dipst ick Glucose POS Not Available [place] [address], [place], [address], 07/18/2024 17:15:18 07/19/19 25 07/18/2024 urina lysis , dipst ick Appearance CLOUDY Not Available [facility] [address], [place], [address], 07/18/2024 17:15:18 07/19/19 25 07/18/2024 urina lysis , dipst ick Color YELLOW Not Available [place] [address], [place], [address], 07/18/2024 17:15:18 07/29/19 25 07/28/2024 HEMOG LOBIN (HGB) HGB 11.4 g/dL (based on docume nted legal sex) 11.6-[address] [facility] (Lab) [address] [facility], [place], [address], 07/29/2024 13:22:19 06/29/19 25 06/28/2024 US, obste tric, follo w-up No observ ation record ed. [email or web address] [facility] [address] [place] [address], [place], [address], 06/30/2024 00:17:48 07/28/19 25 07/26/2024 US, obste tric, follo w-up No observ ation record ed. [email or web address] [facility] [place] [address] [facility], [place], [address], 08/02/2024 12:21:50 08/26/19 25 08/23/2024 US, obste tric, follo w-up No observ ation record ed. [email or web address] [facility] [address], [place], [address], 08/26/2024 16:05:55 08/26/1908/25/2024 non-s tress test No observ ation record ed. [place] [address], [place], [address], 08/25/2024 16:29:32 09/01/1908/30/2024 imagi ng/di agnos tic resul t No observ ation record ed. [email or web address] [facility] [address] [facility], [place], [address], 08/31/2024 15:35:14 Result Notes None recorded. Problems Name Problem SNOMED Code Status Onset Date Resolution Date Notes Provider Name and Address Organization Details Recorded Time Finding of fertilit y Completed 201704/26/2020 Female infertil ity, unspecif ied;Prac sarath ID: 0001 Jorge Diaz [facility] 14:54:13 Dysuria 72584536 Completed 201704/26/2020 Dysuria; Practice ID: 0001 Jorge Diaz [facility] 14:54:28 Acute vaginiti s 67078670 Completed 201705/08/2020 Acute vaginiti s;Practi ce ID: 0001 Yadira Mckeon [facility] 12:09:31 Female genital organ symptoms 965231779 Completed 201104/26/2020 Unspecif ied symptom associat ed with female genital organs;R ecorded Elsewher e: No Locat ion: [facility] S ource: EHR Central Office Technician ashlyn: N Practi ce ID: 0001 Ezio lable Time: 03:00:00 PM Jorge Diaz [facility] 14:54:25 Body mass index 30+ - obesity 475619185 Completed 201505/08/2020 Body mass index (BMI) 45.0-49. 9, adult;Re corded Elsewher e: No Locat ion: [facility] S ource: EHR Central Office Technician ashlyn: N Practi ce ID: 0001 Ezio lable Time: 05:30:00 PM Yadira zamarripa, [facility] 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 14:53:39 Syphilis test finding 167636502 Completed 201504/26/2020 Encntr screen for infectio ns w sexl mode of transmis s;Record ed Elsewher e: No Locat ion: [facility] S ource: EHR Central Office Technician ashlyn: N Practi ce ID: 0001 Ezio lable Time: 05:30:00 PM Jorge zamarripa, [facility] 14:53:43 Obesity 221539036 Completed 201305/08/2020 LD ASA per MFM Yadira zamarripa, [facility] 12:09:[address] Concept Completed 201704/26/2020 Encntr for general adult medical exam w/o abnormal findings ;Recorde d Elsewher e: No Locat ion: [facility] S ource: EHR Central Office Technician ashlyn: N Practi ce ID: 0001 Ezio lable Time: 08:30:00 AM Faraevette zamarripa, [facility] 14:53:36 Screenin g for malignan t neoplasm of cervix Completed 201104/26/2020 Pap Smear;Pr actice ID: 0001 Jorge Diaz [facility] 14:53:52 Ill-defi meño intestin al infectio n Completed 201104/26/2020 No Show Fee;Prac sarath ID: 0001 Jorge Diaz [facility] 14:54:20 Amenorrh ea 85241544 Completed 201105/08/2020 AMENORRH EA;Pract ice ID: 0001 Yadira Mckeon [facility] 12:09:33 Pregnanc y test negative 362470278 Completed 201104/26/2020 Negative Pregnanc y Test;Pra ctice ID: 0001 Jorge Diaz [facility] 14:53:57 Polycyst ic ovaries Completed 201305/08/2020 Polycyst ic ovaries; Practice ID: 0001 Yadira Mckeon [facility] 12:09:44 Migraine 97233492 Completed 201305/08/2020 Migraine , unspecif ied without mention of intracta ble migraine ;Practic e ID: 0001 [facility] 12:09:40 Adult health examinat ion Completed 201404/26/2020 Routine general medical examinat ion at a health care facility ;Practic e ID: 0001 Jorge Diaz [facility] 14:54:37 Speciali zed medical examinat ion Completed 201404/26/2020 Other specifie d chlamydi al diseases ;Practic e ID: 0001 [facility] 14:53:40 Venereal disease screenin g Completed 201404/26/2020 Screenin g examinat ion for venereal disease; Practice ID: 0001 Jorge zamarripa [facility] 14:53:[address] Concept Completed 201504/26/2020 Encntr for urogynaecologist exam (general ) (routine ) w/o abn findings ;Practic e ID: 0001 Jorge zamarripa [facility] 14:53:34 Clinical finding Completed 201504/26/2020 Obesity, unspecif ied;Prac sarath ID: 0001 Jorge zamarripa [facility] 14:54:15 Severe obesity 38109624454 104 Completed 201504/26/2020 Morbid (severe) obesity due to excess calories ;Practic e ID: 0001 Jorge zamarripa [facility] 14:54:02 Primary amenorrh ea 417780354 Completed 201704/26/2020 Primary amenorrh ea;Pract ice ID: 0001 Jorge zamarripa [facility] 14:53:54 Metaboli c syndrome X 627006023 Completed 201305/08/2020 Insulin resistan ce;Recor ded Elsewher e: No Locat ion: Saji sandoval [facility] S ource: EHR Central Office Technician ashlyn: N Practi ce ID: 0001 Ezio lable Time: 09:45:00 AM [facility] 12:09:39 Infectio n screenin g Completed 201504/26/2020 Encounte r for screenin g for oth infec/pa rastc diseases ;Recorde d Elsewher e: No Locat ion: Saji sandoval [facility] S ource: EHR Central Office Technician ashlyn: N Practi ce ID: 0001 Ezio lable Time: 05:30:00 PM Jorge Diaz [facility], [facility] 1 14:54:11 Diabetes mellitus 65160567 Completed 201905/08/2020 type 2 Yadira Mckeon [facility], [facility] 1 12:09:37 Anxiety 68659493 Completed 201905/08/2020 Zoloft Yadira Mckeon [facility], [facility] 12:09:34 Abnormal cervical Papanico laou smear 054460864 Completed 201905/08/20202014 Yadiraconnor Mckeon [facility] 12:09:30 Pregnanc y 34261410 Completed 201905/08/2020 Nehal Armendariz [facility], [facility] 4 18:08:47 Type 2 diabetes mellitus 12756318 Completed Metformi n xr 2000mg qd Sent to [facility] for manageme nt- 05/16- NPH 26U AM/88U PM Increase 2 units when 1 consecut wili fasting >90 / Humalog 16U w/ bfast & 8Uw/ lunch & 32U w/ dinner. 6units with snack over 15g carbs. Nhi Reeves [facility], [facility] 13:40:41 Purpuric rash 174755773 Completed clotimaz ole/beta methazon e-Rxed Nhi Reeves [facility] 13:40:41 Obesity 288365207 Completed 2013 LD ASA per M Nhi Reeves [facility] 13:40:41 Marginal insertio n of umbilica l cord 71581479 Completed 2019 growth u/s Nhi Reeves hl null, [facility] 13:40:41 Dilatati on of renal pelvis Completed - bilatera l - growth u/s Nhi Reeves hl null, [facility] 1 13:40:41 Anxiety 71078308 Completed 2019 Zoloft Nhi Reeves hl null, [facility] 13:40:41 Pre-exis ting type 2 diabetes mellitus in pregnanc y 843415312 Completed 2020 DELIVER BY 37- [facility] ed. MFM may rec earlier. Nhi Reeves hl null, [facility] 1 13:40:41 Pre-exis ting type 2 diabetes mellitus in pregnanc y 595442146 Completed 202005/08/2020 Yadira Mckeon null, [facility] 1 12:09:45 Large for gestatio n age fetus 548127943 Completed potentia l 89% 05/11 Nhi Reeves hl null, [facility] 1 13:40:41 Pregnanc y 35210532 Active 2023 Nehal Armendariz null, [facility] 4 18:08:47 Type 2 diabetes mellitus 76991956 Active managed by [facility]FM Sched [facility] 05[facility] 06/28 US and office visit Consult 08/03/24 NST & US 08/23/24 1:15PM to start 2xwkly antenata l testing at 32wks confirm if pt schedule MFM or our office? schedule d for US/BPP/N ST weekly onTuesda ys starting 06/02/24 pt decline Thursday NST pt schedule d on s NST/OB Jenni zamarripa, [facility] 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 5 13:09:37 Group B Streptoc occus carrier [id number] 03 Active + GBS in urine Jenni Diaz [facility], [facility] 5 13:09:37 Problem Notes None recorded. Procedures Surgical History Date Name Laterality Status Provider Name and Address Organization Details Recorded Time 03/01/20 24 Date of Last Pap Smear completed Nehal Armendariz [facility] 04/07/2024 18:07:50 09/02/19 23 IUD Removal completed Dante Aponte MD [address], [place], [address], [facility] 09/01/2022 22:15:29 05/19/19 23 Colposcopy completed Dante Aponte MD [address], [place], [address], [facility] 05/19/2022 15:31:57 05/19/19 23 Colposcopy completed Alva Kimble [facility] 03/09/2023 16:31:33 05/19/19 23 Colposcopy completed Sarah Jordan [facility] 05/19/2022 14:35:43 07/28/19 22 IUD Insertion completed Dante Aponte MD [address], [place], [address], [facility] 07/27/2021 12:17:49 05/22/19 21 NST completed Bel Dennison MD [address], [place], [address], [facility] 05/22/2020 14:09:48 05/15/19 21 NST completed Bel Dennison MD [address], [place], [address], [place] [facility] 05/15/2020 13:43:28 04/27/19 21 NST completed Bel Dennison MD [address], [place], [address], [place] [facility] 04/27/2020 12:17:14 04/20/19 15 Tonsillectomy completed Alva Kimble [facility] 11/09/2019 16:35:35 Imaging Results Imaging Date Name Status LastModified by Organiz ation Details LastModified Time 06/28/2024 US, obstetric, follow-up completed [email or web address] [facility] [place] [address] [facility] [address] [facility], [place], [address], 06/30/2024 00:17:48 07/26/2024 US, obstetric, follow-up completed [email or web address] [facility] [place] [address] [facility] [address] [facility], [place], [address], 08/02/2024 12:21:50 08/23/2024 US, obstetric, follow-up completed [email or web address] [place] [address] [place] [address], [place], [address], 08/26/2024 16:05:55 08/25/2024 non-stress test completed [email or web address] [place] [address], [place], [address], 08/25/2024 16:29:32 08/30/2024 imaging/diag nostic result active [email or web address] [facility] [place] [address] [place] [address], [place], [address], 08/31/2024 15:35:14 Procedure Notes None recorded. Medical Equipment None Reported. Allergies Allergen ID Allergen Name Allergen Category Reaction Reaction Severity Criticality Documentation Date Start Date Code Code System Note Provider Name and Address Organization Details Recorded Time 1407 lisinopri l medicatio n rash Not available Not available 11/09/2019 51284 RxNorm Alva Kimble [facility] 0 11:13:14 Medications Name Sig Start Date Stop Date Status Note LastModified by Organization Details LastModified Time amoxicill in 500 mg capsule TAKE 1 CAPSULE BY MOUTH EVERY 8 HOURS DIRECTED FOR 5 DAYS 08/08 completed Not Available Not Available Not Available Mirena 21 mcg/24 hr (up to [...] Prescrib ed Elsewher e: Yes Loca tion: [facility] odify By: arun kearns DateTime : 02/13/20 03:00:00 PM Not Available [...] Elsewher e: No Locat ion: Saji sandoval [facility] odify By: richard Sandoval ncounter DateTime : 02/03/20 02:19:49 PM Not Available Not Available Not [...] completed Not Available Not Available Not Available [id number]|2024-08-31 21:21:00|2024-08-31 21:21:00|XMS_ITS|NORBERT ARAUJO|External Medical Summaries|[id number]|" Encounter Summary Created on: August 31, 2024 Yasmeen Ny : 1990 Sex: Female Author Organization [facility] Health Address [address] [facility] [place] [address] Care Team Providers Care Hebrew Cantor Name Role Phone Chuck Craig [place]-CULINARY DIRECTOR Primary Care Pro vider Reason for Visit * Reason Onset Date Comments MEDICATION REFILL 03/08/2024 Encounter Details Date Type Department Care Team (Late st Contact Info) Description 03/08/2024 Refill [facility] MATERNAL/ EVALUATION UNIT [address] [place] [address] Eduar Hernandez MD [address] [place] [address] MEDICATION REFILL Social History Tobacco Use Types [...] and heating? Not hard at all 02/24/2024 [facility] Occupat ional [facility] - Occupational Stress [...] things needed for daily living? No 02/24/2024 [place] Depression Scale Answer Date Recorded [place] Depression Scale Total 1 03/01/2024 The thought [...] any time in the past 12 m [facility], were you homeless or living in a prison (including now)? Yes 02/24/2024 Estimated Date of [...] Info) Description 09/06/2024 1:00 PM CDT Appointment [facility] MATERNAL/ EVALUATION UNIT [address] [address] 09/06/2024 1:30 PM CDT Appointment [facility] MATERNAL/ EVALUATION UNIT [address] [address] 09/06/2024 2:30 PM CDT Appointment [facility]ERNAL/ EVALUATION UNIT [address] [address] 09/06/2024 2:30 PM CDT Appointment [facility] MATERNAL/ EVALUATION UNIT [address] [address] 09/13/2024 1:30 PM CDT Appointment [facility] MATERNAL/ EVALUATION UNIT [address] [address] 09/13/2024 2:30 PM CDT Appointment [facility] MATERNAL/ EVALUATION UNIT [address] [address] 09/20/2024 1:00 PM CDT Appointment [facility] MATERNAL/ EVALUATION UNIT [address] [place] [address] 09/20/2024 2:15 PM CDT Appointment [facility] MATERNAL/ EVALUATION UNIT [address] [place] [address] 09/27/2024 1:00 PM CDT Appointment [facility] MATERNAL/ EVALUATION UNIT [address] [place] [address] 09/27/2024 2:15 PM CDT Appointment [facility] MATERNAL/ EVALUATION UNIT [address] [place] [address] documented as of this encounter Visit Diagnoses Diagnosis Pre-existing type 2 diabetes mellitus during , antepartum (HCC) Type 2 diabetes mellitus with stage 1 chronic kidney disease, with long-term current use of insulin (HCC) documented in this encounter Care Teams Hebrew Cantor Relationship Specialty Start Date End Date Chuck Craig APRN-EMILY [address] [place] [phone] PCP - General Nurse Practitioner 08/25/22 documented as of this encounter "
--- OUTSIDE RECORDS SUMMARY | 2024-08-31 21:21 | XMS_ITS | Clinical Summary ---
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
--- OUTSIDE RECORDS SUMMARY | 2024-08-31 21:21 | XMS_ITS | Referral Summary ---
Author Organization [facility] at 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 Testing performed by: [address] [address] Blood 09/24/2023 8:42 AM CDT 09/24/2023 9:06 AM CDT us Sajan Pollard MD LAB BLOOD ORDERABL ES Final Result [facility] [address] [facility] Department [place] [address] * (ABNORMAL) Hemoglobin A1c (09/24/2023 8:42 AM CDT) Hgb A1C 6.8(H) 4.0 - 5.6 % Comment:Testing performed by : [address] [address] Estimated Average Glucose 148 mg/dL KELLEN TARANGO Comment: The ADA recommends reporting an estimated Average Glucose (eAG) with all Hemoglobin A1c results using the equation derived from a study of 507 normal and diabetic adults. Minority populations were underrepresented and children were not included. (Diabetes Care 31:2770-4670, 2008). The eAG is not equivalent to a fasting glucose. Testing performed by: [facility], [address] [place] [address], [place]., [address] Blood 09/24/2023 8:42 AM CDT 09/24/2023 9:06 AM CDT Marquita TARANGO - 09/24/2023 9:40 AM CDT PRE SURGERY TESTING ONLY us Sajan Pollard MD LAB BLOOD ORDERABL ES Final Result KELLEN [address] [facility] Department [place] [address] from Last 3 Months or Most Recently Relevant to Health Maintenance Insurance [facility] CHOICE [facility] H[facility]/PPO Address: [facility] [address] [place] [address] [employer] OPEN ACCESS [employer] OPEN ACCESS Care Teams Epic Analyst Relationship Specialty Start Date End Date Chuck Nelson NP PCP - General 01/26/19 Christopher Nelson MD [address] [place] [address] Consulting Physician General Surgery 09/30/23
--- OUTSIDE RECORDS SUMMARY | 2024-08-31 21:22 | XMS_ITS | Encounter Summary ---
Author Organization [facility] Address [address] [facility] [place] [address] Care Team Providers Care Button Bradder Name Role Phone Chuck Nelson IMAGING ACCOUNT MANAGER-MESMERIST Primary Care Pro vider Reason for Referral * (Routine) - Open Specialty Diagnoses / Procedures Referred By Contkarina t Referred To Contact Diagnoses Pre-existing type 2 diabetes mellitus during , antepartum (HCC) Procedures BIOPHYSICAL PROFILE W T Eduar Hernandez MD [address] [place] [address] Phone: tel: fax: Referral ID Status Reason Start Date Expiration Date Visits Re quested Visits Authorized [id number] Open 07/25/2024 07/25/2025 8 8 Reason for Visit * Reason Comments Ultrasound * (Routine) - Open Specialty Diagnoses / Procedures Referred By Chet mac Referred To Contact Diagnoses Pre-existing type 2 diabetes mellitus during , antepartum (HCC) Procedures BIOPHYSICAL PROFILE W NST Eduar Hernandez MD [address] [address] Phone: tel: fax: Referral ID Status Reason Start Date Expiration Date Visits Re quested Visits Authorized [id number] Open 07/25/2024 07/25/2025 8 8 Encounter Details Date Type Department Care Team (Latest Contact Info) Description 08/30/2024 1:16 PM CDT - 08/30/2024 11:59 PM CDT Hospital Encounter [facility] MATERNAL/ EVALUATION UNIT [address] [place] [address] Bird Stevenson MD [address] [facility] [address] [place] [address] Discharge Disposition: Home or Self Care Social History Tobacco Use Types Packs/Day Years [...] and heating? Not hard at all 08/23/2024 [facility] Occupat ional Health - Occupational Stress [...] things needed for daily living? No 08/23/2024 Montgomery Depression Scale Answer Date Recorded [place] Depression Scale Total 1 03/01/2024 The thought [...] any time in the past 12 m [facility], were you homeless or living in a retirement (including now)? No 08/23/2024 Estimated Date of Delivery Comme nts Yes 10/19/2024 Based on last me nstrual period of 01/13/2024 Sex and Gender Information Value Date Recorded Sex Assigned at Not on file Legal Sex Female 2:51 PM CDT Gender Identity Not on file Sexual Orientation Not on file documented as of this encounter Medications at Time of Discharge aspirin EC (Ecotrin) 81 MG tabletIndication s:Pre-existing type 2 diabetes mellitus during , antepartum (HCC) Take 2 (two) tablets by mouth once daily 100 tablet 1 04/05/2024 blood glucose (OneTouch Verio) test stripIndications :Pre-existing type 2 diabetes mellitus during , antepartum ([facility]),Type 2 diabetes mellitus with stage 1 chronic kidney disease, with long-term current use of insulin ([facility]) To monitor blood glucose (sugar) 4x daily- fasting and 1 hour after meals 100 strip 5 03/01/2024 Blood Glucose Monitoring Suppl (OneTouch Verio) w/Device KITIndications:P re-existing type 2 diabetes mellitus during , antepartum ([facility]),Type 2 diabetes mellitus with stage 1 chronic kidney disease, with long-term current use of insulin ([facility]) Use 1 Each as directed 1 kit 03/01/2024 Continuous Glucose Sensor (Dexcom G7 Sensor) MISCIndications: Pre-existing type 2 diabetes mellitus during , antepartum ([facility]) Use 1 Each Continuous for 10 days 3 Each 5 03/22/2024 escitalopram (Lexapro) 20 MG tablet Take 1 (one) tablet by mouth once daily fluticasone propionate (Flonase) 50 MCG/ACT nasal spray USE 1 SPRAY(S) IN EACH NOSTRIL ONCE DAILY Glucagon (Baqsimi One Pack) 3 MG/DOSE POWD [place] 1 Each into the nose as needed 1 Each 03/15/2024 hydrOXYzine HCl (Atarax) 25 MG tablet Take 1 (one) tablet by mouth 3 times daily insulin glargine (Lantus/Semglee) 100 units/mL penIndications:T ype 2 diabetes mellitus with hyperglycemia, unspecified whether custodial insulin use (HCC) Inject 22 units in the morning and 22 units at bedtime. Take dosages approximately 12 hours apart. Increase dose as directed due to increasing insulin requirements during . Max total daily dose = 50u 15 mL 5 08/03/2024 insulin lispro (HumaLOG;ADMelog ) 100 UNIT/ML penIndications:T ype 2 diabetes mellitus with hyperglycemia, unspecified whether custodial insulin use (HCC) Inject 18u before small meals (<30g), 20 units before medium meals (30-45g), and 22u before large meals (>60g). Inject 6u with snacks. Inject 0-15 minutes before meals. Increase dose as directed during . Max total daily dose = 100 units. 30 mL 5 08/23/2024 Insulin Pen Needle ([place] EnergyLite Pen [place]) 32G X 4 MM MISCIndications: Pre-existing type 2 diabetes mellitus during , antepartum (HCC) Use 1 Each 5 times daily 150 Each 5 08/23/2024 Lancets (ONETOUCH DELICA PLUS 33G EXTRA FINE LANCET)Indicatio ns:Pre-existing type 2 diabetes mellitus during , antepartum ([facility]),Type 2 diabetes mellitus with stage 1 chronic kidney disease, with long-term current use of insulin ([facility]) To monitor blood glucose (sugar) 4x daily- fasting and 1 hour after meals 100 Each 5 03/01/2024 magnesium oxide (Mag-Ox) 400 MG tablet Take 1 (one) tablet by mouth once daily 30 tablet 2 08/03/2024 montelukast (Singulair) 10 MG tablet TAKE 1 TABLET BY MOUTH ONCE DAILY FOR ALLERGIES Vit-Fe Fumarate-FA (M- Plus) 27-1 MG TABS 08/01/2024 triamcinolone acetonide (Kenalog) 0.1 % cream APPLY CREAM EXTERNALLY TO AFFECTED AREA TWICE DAILY FOR 90 DAYS FOR DERMATITIS documented as of this encounter Plan of Treatment Upcoming Encounters Date Type Department Care Team (Late st Contact Info) Description 09/06/2024 1:00 PM CDT Appointment [facility] MATERNAL/ EVALUATION UNIT [address] [place] [address]. [facility] [address] [place] [address] 09/06/2024 1:30 PM CDT Appointment [facility] MATERNAL/ EVALUATION UNIT [address] [place] [address] 09/06/2024 2:30 PM CDT Appointment [facility] MATERNAL/ EVALUATION UNIT [address] [place] [address] 09/06/2024 2:30 PM CDT Appointment [facility] MATERNAL/ EVALUATION UNIT [address] [place] [address] 09/13/2024 1:30 PM CDT Appointment [facility] MATERNAL/ EVALUATION UNIT [address] [place] [address] 09/13/2024 2:30 PM CDT Appointment [facility] MATERNAL/ EVALUATION UNIT [address] [place] [address] 09/20/2024 1:00 PM CDT Appointment [facility] MATERNAL/ EVALUATION UNIT [address] [place] [address] 09/20/2024 2:15 PM CDT Appointment [facility] MATERNAL/ EVALUATION UNIT [address] [address] 09/27/2024 1:00 PM CDT Appointment [facility] MATERNAL/ EVALUATION UNIT [address] [place] [address] 09/27/2024 2:15 PM CDT Appointment [facility] MATERNAL/ EVALUATION UNIT [address] [place] [address] documented as of this encounter Procedures Procedure Name Priority Date/Time Associated Diagnosis Comments BIOPHYSICAL PROFILE W NST Routine 08/30/2024 2:06 PM CDT Pre-existing type 2 diabetes mellitus during , antepartum (HCC) documented in this encounter Results * BIOPHYSICAL PROFILE W NST (08/30/2024 2:06 PM CDT) Linked Results Indication ======== Diabetes mellitus, type II Obesity, Class II Normal echo 07/20/24 History ====== OB History 2. Para 1 [id number] Lab Tests Test Date Result NIPT 04/05/2024 Low risk, Female Maternal Assessment Physical Exam Height 163 cm, 5 ft 4 in. Weight 110 kg, 243 lb. Initial weight 89 kg, 196 lb. BMI 41.71 kg/m . Initial BMI 33.64 kg/m . Weight gain 21 kg, 47 lb Method ====== Transabdominal ultrasound examination. View: Sufficient ========= Valderrama . Number of fetuses: 1 Dating ====== Date Details Gest. age JEFF LMP 01/13/2024 Cycle: regular cycle 32 w + 6 d 10/19/2024 Stated JEFF 32 w + 6 d 10/19/2024 Assigned dating based on the LMP, selected on 03/15/2024 32 w + 6 d 10/19/2024 General Evaluation Cardiac activity present. FHR 134 bpm. Presentation: cephalic Placenta: Placental site: posterior Amniotic Fluid Assessment ==== Amount of AF: subjectively low MVP 2.8 cm. ABHAY 6.1 cm. Q1 0.0 cm, Q2 1.8 cm, Q3 1.5 cm, Q4 2.8 cm Biophysical Profile 2: breathing movements 2: Gross body movements 2: tone 2: Amniotic fluid volume NST: reactive 01/27 Biophysical profile score Non Stress Test NST interpretation: reactive. Baseline FHR 125 bpm. Baseline variability: moderate. Accelerations: present. Decelerations: absent Growth Overview Exam date GA BPD (mm) HC (mm) AC (mm) FL (mm) HL (mm) EFW (g) 05/31/2024 19w 6d 45.2 42% 171.1 35% 151.9 63% 29.6 19% 29.9 53% 314 42% 06/28/2024 23w 6d 60.6 73% 221.3 44% 192.7 45% 41.1 22% 38.8 36% 629 38% 07/26/2024 27w 6d 68.3 26% 264.3 48% 244.4 68% 49.8 11% 45.5 18% 1158 42% 08/23/2024 31w 6d 78.9 35% 288.3 13% 281.7 59% 57.2 4% 51.7 11% 1768 27% Anatomy The following structures appear normal: Abdomen Stomach. Kidneys. Bladder. sex: female. Impression ========= Single, live, intrauterine at 32w 6d The amniotic fluid volume is subjectively low, but measures within normal limits. The biophysical profile is 10/10. Comment ======== ultrasound alone cannot detect all structural, genetic, or functional , placental, or maternal abnormalities Follow-up ======== Continue twice weekly NST and weekly BPP. Recommend fluid check during NST only visits due to low-normal AFV. Follow up growth assessment as previously scheduled. Coding ====== Procedures 24316: US Uterus Limited 20065: Biophysical Profile W NST [address] [employer] PACS Anatomical Region Laterality Modality Other 08/30/2024 2:06 PM CDT Eduar Hernandez MD [facility] ORDERABLES Edited Result - Final documented in this encounter Visit Diagnoses Diagnosis Pre-existing type 2 diabetes mellitus during , antepartum (HCC) documented in this encounter Care Teams Button Bradder Relationship Specialty Start Date End Date Chuck Nelson, IMAGING ACCOUNT MANAGER-EMILY [facility] [address] [address] PCP - General Nurse Practitioner 08/25/22 documented as of this encounter
--- OUTSIDE RECORDS SUMMARY | 2024-08-31 21:22 | XMS_ITS | Encounter Summary ---
Author Organization [facility] Address [address] [facility] [place] [address] Care Team Providers Care Purchasing And Fiscal Clerk Name Role Phone Chuck Nelson Marcelo FELT CARBONIZER-DESK OFFICER Primary Care Pro vider Encounter Details Date Type Department Care Team (Latest Contact Info) Description 08/30/2024 1:00 PM CDT Hospital Encounter [facility] MATERNAL/ EVALUATION UNIT [address] [facility] [place] [address] Bird Stevenson MD [address] [facility] [address] [place] [address] Discharge Disposition: Home or Self [...] and heating? Not hard at all 08/23/2024 [facility] [place] of Occupat ional Health - Occupational Stress [...] things needed for daily living? No 08/23/2024 [place] Depression Scale Answer Date Recorded [place] Depression Scale Total 1 03/01/2024 The thought [...] any time in the past 12 m [facility], were you homeless or living in a fpc (including now)? No 08/23/2024 Estimated Date of [...] diabetes mellitus during , antepartum ([facility]) Take 2 (two) tablets by mouth once daily 100 tablet 1 04/05/2024 blood glucose (OneTouch Verio) test stripIndications :Pre-existing type 2 diabetes mellitus during , antepartum ([facility]),Type 2 diabetes mellitus with stage 1 chronic kidney disease, with long-term current use of insulin ([facility]) To monitor blood glucose (sugar) 4x daily- fasting and 1 hour after meals 100 strip 5 03/01/2024 Blood Glucose Monitoring Suppl (OneTouch Verio) w/Device KITIndications:P re-existing type 2 diabetes mellitus during , antepartum (HCC),Type 2 diabetes mellitus with stage 1 chronic kidney disease, with long-term current use of insulin ([facility]) Use 1 Each as directed 1 kit 03/01/2024 Continuous Glucose Sensor (Dexcom G7 Sensor) MISCIndications: Pre-existing type 2 diabetes mellitus during , antepartum ([facility]) Use 1 Each Continuous for 10 days 3 Each 5 03/22/2024 escitalopram (Lexapro) 20 MG tablet Take 1 (one) tablet by mouth once daily fluticasone propionate (Flonase) 50 MCG/ACT nasal spray USE 1 SPRAY(S) IN EACH NOSTRIL ONCE DAILY Glucagon (Baqsimi One Pack) 3 MG/DOSE POWD [place] 1 Each into the nose as needed 1 Each 03/15/2024 hydrOXYzine HCl (Atarax) 25 MG tablet Take 1 (one) tablet by mouth 3 times daily insulin glargine (Lantus/Semglee) 100 units/mL penIndications:T ype 2 diabetes mellitus with hyperglycemia, unspecified whether terminal clerk insulin use ([facility]) Inject 22 units in the morning and 22 units at bedtime. Take dosages approximately 12 hours apart. Increase dose as directed due to increasing insulin requirements during . Max total daily dose = 50u 15 mL 5 08/03/2024 insulin lispro (HumaLOG;ADMelog ) 100 UNIT/ML penIndications:T ype 2 diabetes mellitus with hyperglycemia, unspecified whether terminal clerk insulin use (HCC) Inject 18u before small meals (<30g), 20 units before medium meals (30-45g), and 22u before large meals (>60g). Inject 6u with snacks. Inject 0-15 minutes before meals. Increase dose as directed during . Max total daily dose = 100 units. 30 mL 5 08/23/2024 Insulin Pen Needle (TechLite Pen [place]) 32G X 4 MM MISCIndications: Pre-existing type 2 diabetes mellitus during , antepartum (HCC) Use 1 Each 5 times daily 150 Each 5 08/23/2024 Lancets (ONETOUCH DELICA PLUS 33G EXTRA FINE LANCET)Indicatio ns:Pre-existing type 2 diabetes mellitus during , antepartum ([facility]),Type 2 diabetes mellitus with stage 1 chronic kidney disease, with long-term current use of insulin ([facility]) To monitor blood glucose (sugar) 4x daily- fasting and 1 hour after meals 100 Each 5 03/01/2024 magnesium oxide (Mag-Ox) 400 MG tablet Take 1 (one) tablet by mouth once daily 30 tablet 2 08/03/2024 montelukast (Singulair) 10 MG tablet TAKE 1 TABLET BY MOUTH ONCE DAILY FOR ALLERGIES Vit-Fe Fumarate-FA (M-Raz Plus) 27-1 MG TABS 08/01/2024 triamcinolone acetonide (Kenalog) 0.1 % cream APPLY CREAM EXTERNALLY TO AFFECTED AREA TWICE DAILY FOR 90 DAYS FOR DERMATITIS documented as of this encounter Plan of Treatment Upcoming Encounters Date Type Department Care Team (Late st Contact Info) Description 09/06/2024 1:00 PM CDT Appointment [facility] MATERNAL/ EVALUATION UNIT [facility] [address]. [address] [address] 09/06/2024 1:30 PM CDT Appointment [facility] MATERNAL/ EVALUATION UNIT [address] [place] [address] [address] 09/06/2024 2:30 PM CDT Appointment [facility] MATERNAL/ EVALUATION UNIT [address] [place] [address] [address] 09/06/2024 2:30 PM CDT Appointment [facility] MATERNAL/ EVALUATION UNIT [facility] [address]. [address] [address] 09/13/2024 1:30 PM CDT Appointment [facility] MATERNAL/ EVALUATION UNIT [facility] [address]. [address] [address] 09/13/2024 2:30 PM CDT Appointment [facility] MATERNAL/ EVALUATION UNIT [facility] [address]. [address] [address] 09/20/2024 1:00 PM CDT Appointment [facility] MATERNAL/ EVALUATION UNIT [facility] [address] [address] 09/20/2024 2:15 PM CDT Appointment [facility] MATERNAL/ EVALUATION UNIT [address] [facility] [place] [address] 09/27/2024 1:00 PM CDT Appointment [facility] MATERNAL/ EVALUATION UNIT [address] [place] [address]. [address] [place] [address] 09/27/2024 2:15 PM CDT Appointment [facility] MATERNAL/ EVALUATION UNIT [address] [place] [address]. [address] [place] [address] Pending Results Name Type Priority Associated Diagnoses Date /Time CULTURE URINE Microbiology Routine Dysuria during in third trimester ([facility]) 08/30/2024 1:22 PM CDT documented as of this encounter Procedures Procedure Name Priority Date/Time Associated Diagnosis Comments URINALYSIS REFLEX MICROSCOPIC REFLEX CULTURE Routine 08/30/2024 1:22 PM CDT Dysuria during in third trimester ([facility]) CULTURE URINE Routine 08/30/2024 1:22 PM CDT Dysuria during in third trimester ([facility]) documented in this encounter Results * (ABNORMAL) URINALYSIS REFLEX MICROSCOPIC REFLEX CULTURE (08/30/2024 1:22 PM CDT) Color UA Yellow Yellow, Straw 08/30/2024 2:31 PM CDT [facility] Clarity UA Clear Clear 08/30/2024 2:31 PM CDT [facility] Glucose UA Normal Normal 08/30/2024 2:31 PM CDT [facility] Bilirubin UA Negative Negative 08/30/2024 2:31 PM CDT [facility] Ketone UA Negative Negative 08/30/2024 2:31 PM CDT [facility] Specific [place] UA <1.005(L) 1.005 - 1.030 08/30/2024 2:31 PM CDT [facility] Blood UA Negative Negative 08/30/2024 2:31 PM CDT [facility] pH UA 6.5 5.0 - 8.0 pH 08/30/2024 2:31 PM CDT [facility] Protein UA Negative Negative 08/30/2024 2:31 PM CDT [facility] Urobilinogen UA Normal Normal mg/dL 08/30/2024 2:31 PM CDT [facility] Nitrite UA Negative Negative 08/30/2024 2:31 PM CDT [facility] Leukocyte UA 25 MIA/uL(A) Negative 08/30/2024 2:31 PM CDT [facility] RBC UA 0-2 0 - 5 # /hpf 08/30/2024 2:31 PM CDT [facility] WBC UA 0-5 0 - 5 # /hpf 08/30/2024 2:31 PM CDT [facility] Bacteria UA Trace(A) None Seen 08/30/2024 2:31 PM CDT [facility] Squamous Epithelial Cells 0-2 0 - 5 /hpf 08/30/2024 2:31 PM CDT [facility] Mucus UA 1+ /LPF 08/30/2024 2:31 PM CDT [facility] Reflex Status Culture to follow 08/30/2024 2:31 PM CDT [facility] Urine URINE SPECIMEN OBTAINED BY CLEAN CATCH PROCEDURE / Unknown Collection / Unknown 08/30/2024 1:22 PM CDT 08/30/2024 2:22 PM CDT Narrative [facility] - 08/30/2024 2:31 PM CDT us Bel Gibson MD LAB - URINALYSIS ORDERABLES Wilma l Result Performing Organization Address City/State/[facility] Co de Phone Number [facility] [address] [place], [place] [id number] documented in this encounter Visit Diagnoses Diagnosis Dysuria during in third trimester (HCC) documented in this encounter Care Teams Purchasing And Fiscal Clerk Relationship Specialty Start Date End Date Chuck Nelson APRN-EMILY [facility] [address] PCP - General Nurse Practitioner 08/25/22 documented as of this encounter
--- OUTSIDE RECORDS SUMMARY | 2024-08-31 21:22 | XMS_ITS | Encounter Summary ---
Author Organization [facility] Health Address [address] [place] [address] Care Team Providers Care Tubular Riveter Name Role Phone Chuck Nelson Marcelo FOOD ORDER DELIVERY RUNNER-WASTE MANAGEMENT RECYCLING TECHNICIAN Primary Care Pro vider Encounter Details Date Type Department Care Team (Late st Contact Info) Description 08/31/2024 Orders Only [facility] MATERNAL/ EVALUATION UNIT [address] [facility] [address] [place] [address] Komal Ray MD [address] [facility] Obstetrics [place] [address] Social History Tobacco Use Types Packs/Day Years [...] and heating? Not hard at all 08/23/2024 [facility] [place] of Occupat ional Health - Occupational Stress [...] things needed for daily living? No 08/23/2024 [place] Depression Scale Answer Date Recorded [place] Depression Scale Total 1 03/01/2024 The thought [...] any time in the past 12 m [facility], were you homeless or living in a longterm (including now)? No 08/23/2024 Estimated Date of [...] Info) Description 09/06/2024 1:[address] [facility] MATERNAL/ EVALUATION UNIT [facility] [address] [place] [address] 09/06/2024 1:[address] [facility] MATERNAL/ EVALUATION UNIT [facility] [address] [place] [address] 09/06/2024 2:[address] [facility] MATERNAL/ EVALUATION UNIT [facility] [address] [place] [address] 09/06/2024 2:[address] [facility] MATERNAL/ EVALUATION UNIT [facility] [address] [place] [address] 09/13/2024 1:30 PM CDT Appointment [facility] MATERNAL/ EVALUATION UNIT [address] [place] [address] 09/13/2024 2:30 PM CDT Appointment [facility] MATERNAL/ EVALUATION UNIT [address] [place] [address] 09/20/2024 1:00 PM CDT Appointment [facility] MATERNAL/ EVALUATION UNIT [address] [place] [address] 09/20/2024 2:15 PM CDT Appointment [facility] MATERNAL/ EVALUATION UNIT [address] [place] [address] 09/27/2024 1:00 PM CDT Appointment [facility] MATERNAL/ EVALUATION UNIT [address] [place] [address] 09/27/2024 2:15 PM CDT Appointment [facility] MATERNAL/ EVALUATION UNIT [address] [place] [address] documented as of this encounter Visit Diagnoses Not on filedocumented in this encounter Care Teams Tubular Riveter Relationship Specialty Start Date End Date Chuck Nelson APRN-WASTE MANAGEMENT RECYCLING TECHNICIAN [facility] [phone] PCP - General Nurse Practitioner 08/25/22 documented as of this encounter
--- OUTSIDE RECORDS SUMMARY | 2024-08-31 21:22 | XMS_ITS | Encounter Summary ---
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 [place] [address] Bird Stevenson MD [address] [facility] [address] [place] [address] Discharge Disposition: Home or Self [...] and heating? Not hard at all 08/23/2024 [facility] [employer] of Occupat ional Health - Occupational Stress [...] things needed for daily living? No 08/23/2024 [place] Depression Scale Answer Date Recorded [place] Depression Scale Total 1 03/01/2024 The thought [...] any time in the past 12 m [facility], were you homeless or living in [...] type 2 diabetes mellitus during , antepartum ([facility]) Take 2 (two) tablets by mouth once daily 100 tablet 1 04/05/2024 blood glucose (OneTouch Verio) test stripIndications :Pre-existing type 2 diabetes mellitus during , antepartum ([facility]),Type 2 diabetes mellitus with stage 1 chronic kidney disease, with long-term current use of insulin ([facility]) To monitor blood glucose (sugar) 4x daily- fasting and 1 hour after meals 100 strip 5 03/01/2024 Blood Glucose Monitoring Suppl (Medminder Verio) w/Device KITIndications:P re-existing type 2 diabetes mellitus during , antepartum ([facility]),Type 2 diabetes mellitus with stage 1 chronic kidney disease, with long-term current use of insulin ([facility]) Use 1 Each as directed 1 kit 03/01/2024 Continuous Glucose Sensor (Dexcom G7 Sensor) MISCIndications: Pre-existing type 2 diabetes mellitus during , antepartum ([facility]) Use 1 Each Continuous for 10 days 3 Each 5 03/22/2024 escitalopram (Lexapro) 20 MG tablet Take 1 (one) tablet by mouth once daily fluticasone propionate (Flonase) 50 MCG/ACT nasal spray USE 1 SPRAY(S) IN EACH NOSTRIL ONCE DAILY Glucagon (Baqsimi One Pack) 3 MG/DOSE POWD [place] 1 Each into the nose as needed 1 Each 03/15/2024 hydrOXYzine HCl (Atarax) 25 MG tablet Take 1 (one) tablet by mouth 3 times daily insulin glargine (Lantus/Semglee) 100 units/mL penIndications:T ype 2 diabetes mellitus with hyperglycemia, unspecified whether intermission coordinator insulin use ([facility]) Inject 22 units in the morning and 22 units at bedtime. Take dosages approximately 12 hours apart. Increase dose as directed due to increasing insulin requirements during . Max total daily dose = 50u 15 mL 5 08/03/2024 insulin lispro (HumaLOG;ADMelog ) 100 UNIT/ML penIndications:T ype 2 diabetes mellitus with hyperglycemia, unspecified whether shelter insulin use ([facility]) Inject 18u before small meals (<30g), 20 units before medium meals (30-45g), and 22u before large meals (>60g). Inject 6u with snacks. Inject 0-15 minutes before meals. Increase dose as directed during . Max total daily dose = 100 units. 30 mL 5 08/23/2024 Insulin Pen Needle (TechLite Pen [place]) 32G X 4 MM MISCIndications: Pre-existing type 2 diabetes mellitus during , antepartum ([facility]) Use 1 Each 5 times daily 150 Each 5 08/23/2024 Lancets (ONETOUCH DELICA PLUS 33G EXTRA FINE LANCET)Indicatio ns:Pre-existing type 2 diabetes mellitus during , antepartum ([facility]),Type 2 diabetes mellitus with stage 1 chronic kidney disease, with long-term current use of insulin ([facility]) To monitor blood glucose (sugar) [...] Info) Description 09/06/2024 1:00 PM CDT Appointment [facility] MATERNAL/ EVALUATION UNIT [address] [address] 09/06/2024 1:30 PM CDT Appointment [facility] MATERNAL/ EVALUATION UNIT [address] [address] 09/06/2024 2:30 PM CDT Appointment [facility] MATERNAL/ EVALUATION UNIT [address] [address] 09/06/2024 2:30 PM CDT Appointment [facility] MATERNAL/ EVALUATION UNIT [address] [address] 09/13/2024 1:30 PM CDT Appointment [facility] MATERNAL/ EVALUATION UNIT [address] [address] 09/13/2024 2:30 PM CDT Appointment [facility] MATERNAL/ EVALUATION UNIT [address] [address] 09/20/2024 1:00 PM CDT Appointment [facility] MATERNAL/ EVALUATION UNIT [address] [address] 09/20/2024 2:15 PM CDT Appointment [facility] MATERNAL/ EVALUATION UNIT [address] [place] [address] 09/27/2024 1:00 PM CDT Appointment [facility] MATERNAL/ EVALUATION UNIT [address] [place] [address] 09/27/2024 2:15 PM CDT Appointment [facility] MATERNAL/ EVALUATION UNIT [address] [place] [address] documented as of this encounter Visit Diagnoses Not on filedocumented in this encounter Care Teams Spiral Tube Winder Helper Relationship Specialty Start Date End Date Chuck Nelson APRN-EMILY [address] [place] [phone] PCP - General Nurse Practitioner 08/25/22 documented as of this encounter
--- OUTSIDE RECORDS SUMMARY | 2024-08-31 21:22 | XMS_ITS | Data Portability ---
Author Organization Vanna ROMERO Address [address] [place] [address] Care Team Providers Care Credit Administration Officer Name Role Phone [facility] Wastewater Analyst CHUCK CRAIG Primary Care Provider Assessment No assessment recorded. Plan of Treatment Reminders Order Date Submit Date Provider Last Modified By Organization Details Last Modified Time Details Appointments None recorded. Lab test, urine 2023 024 singh In-Office Order, Internal Use Only DO Not Attach Compendium DO Not Attach Compendium, Do Not Delete/merge, [id number] 13:09:24 lipid panel, serum 2023 024 [email or web address], [address] [place] [address], [address], [place], [address], 4 11:40:06 CBC w/ auto diff 2023 024 [employer] [facility], [address] [facility], [address], [place], [address], 4 11:40:06 amylase + lipase, serum 2023 024 [employer] [facility], [address] [facility], [address], [place], [address], 4 11:40:06 Referral None recorded. Procedures None recorded. Surgeries None recorded. Imaging None recorded. Medication Orders aspirin 81 mg tablet,orly rodriguezd release 2023 [facility], [address] [place], [address], 13:20:45 atorvastati n 20 mg tablet 2023 [facility], [address] [place] [address], [address], 13:20:49 spironolact one 100 mg tablet 2023 [facility], [address] [place] [address], [address], 4 13:20:46 nystatin 100,000 unit/gram topical powder 2023 [facility], [address] [place] [address], [address], 13:20:47 phentermine 37.5 mg tablet 2023 [facility], [facility] [place], [address], 13:20:56 escitalopra m 20 mg tablet 2023 [facility], [facility] [place], [address], 13:20:49 metformin 1,000 mg tablet 2023 024 [facility], [address] [place] [address], [address], 4 13:20:44 Mounjaro 10 mg/0.5 mL subcutaneou s pen injector 2023 024 [facility], [address] [place] [address], [address], 13:20:48 fluticasone propionate 50 mcg/actuati on nasal spray,suspe nsion 2023 024 [facility], [address] [place], [address], 4 13:20:46 montelukast 10 mg tablet 2023 024 [facility], [address] [place] [address], [address], 13:20:49 phentermine 37.5 mg tablet 2023 [facility], [address] [place] [address], [id number], 18:24:29 phentermine 37.5 mg tablet 2023 [facility], [address] [place] [address], [address], 15:30:16 triamcinolo ne acetonide 0.1 % topical cream 2023 [facility], [address] [place] [address], [address], 15:30:14 Patient TargetsNo targets recorded. Patient Instructions Encounter Date Encounter Id Patient Instructions Last Modified By Organization Details Last Modified Time 09/03/2023 [id number] A healthy lifestyle: care instructions [email or web address] Not available 09/03/2023 13:09:22 body mass index: care instructions yarauz Not available 09/03/2023 13:09:22 learning about healthy weight yarauz Not available 09/03/2023 13:09:[address] op phentermine for now till after surgery continue present meds yarauz Not available 09/03/2023 17:56:58 11/02/2023 [id number] body mass index: care instructions yarauz Not [...] Rx yarauz Not available 11/02/2023 15:13:42 12/14/2023 [id number] When You Want to Lose Weight: Care [...] Rx yarauz Not available 12/14/2023 12:51:59 02/05/2024 [id number] learning about endovenous ablation for varicose veins yarauz Not available 02/05/2024 13:20:35 When You Want to Lose Weight: Care Instructions [email or web address] Not available 02/05/2024 13:20:34 A healthy lifestyle: care instructions yarauz Not available 02/05/2024 13:20:34 anxiety disorder : care instructions yarauz Not available 02/05/2024 13:20:34 body mass index: care instructions yanarabobby Not available 02/05/2024 13:20:34 learning about healthy [...] Organization Detail LastModifiedTime 08/20/19 24 08/20/2023 gluco segerson k, blood Blood Glucose: mg/dl 212 Not Available In-Off ice Order Internal Use Only DO Not Attach Compendium DO Not Attach Compendium, Do Not Delete/merge, [id number] 08/20/2023 11:59:00 08/20/19 24 08/20/2023 HbA1c (hemo globi n A1c), blood HbA1c 6.6 Not Available In-Office Order Internal Use Only DO Not Attach Compendium DO Not Attach Compendium, Do Not Delete/merge, [id number] 08/20/2023 11:58:59 09/01/19 24 09/02/2023 LIPID PANEL cholesterol, total 175 mg/dL 100-19 9 Not Available [facility] ([facility]) [address], [place], [address], 09/02/2023 11:15:38 09/01/19 24 09/02/2023 LIPID PANEL triglyceride s 199 mg/dL 0-149 above high normal Not Available [facility] ([facility]) [address] [facility], [place], [address], 09/02/2023 11:15:38 09/01/19 24 09/02/2023 LIPID PANEL HDL cholesterol 32 mg/dL >39 below low normal Not Available [facility] ([facility]) [address] [facility], [place], [address], 09/02/2023 11:15:38 09/01/19 24 09/02/2023 LIPID PANEL VLDL cholesterol amy 35 mg/dL 5-40 Not Available [facility] ([facility]) [address] [place], [address], 09/02/2023 11:15:38 09/01/19 24 09/02/2023 LIPID PANEL LDL chol calc ([facility]) 108 mg/dL 0-99 above high normal Not Available [facility] ([facility]) [address] [facility], [place], [address], 09/02/2023 11:15:38 09/01/19 24 09/02/2023 CBC WITH DIFFE RENTI AL/PL ATELE T WBC 10.4 x10e3 /uL 3.4-10 .8 Not Available [facility] ([facility]) [address] [place], [address], 09/02/2023 11:15:39 09/01/19 24 09/02/2023 CBC WITH DIFFE RENTI AL/PL ATELE T RBC 4.78 x10e6 /uL 3.77-5 .28 Not Available [facility] ([facility]) [address] [place], [address], 09/02/2023 11:15:39 09/01/19 24 09/02/2023 CBC WITH DIFFE RENTI AL/PL ATELE T hemoglobin 13.6 g/dL 11.1-1 5.9 Not Available [facility] ([facility]) [address] [facility], [place], [address], 09/02/2023 11:15:39 09/01/19 24 09/02/2023 CBC WITH DIFFE RENTI AL/PL ATELE T hematocrit 40.7 % 34.0-4 6.6 Not Available [facility] ([facility]) [address] [facility], [place], [address], 09/02/2023 11:15:39 09/01/19 24 09/02/2023 CBC WITH DIFFE RENTI AL/PL ATELE T MCV 85 fL 79-97 Not Available [facility] ([facility]) [address] [facility], [place], [address], 09/02/2023 11:15:39 09/01/19 24 09/02/2023 CBC WITH DIFFE RENTI AL/PL ATELE T MCH 28.5 pg 26.6-3 3.0 Not Available [facility] ([facility]) [address] [facility], [place], [address], 09/02/2023 11:15:39 09/01/19 24 09/02/2023 CBC WITH DIFFE RENTI AL/PL ATELE T MCHC 33.4 g/dL 31.5-3 5.7 Not Available [facility] ([facility]) [address] [place], [address], 09/02/2023 11:15:39 09/01/19 24 09/02/2023 CBC WITH DIFFE RENTI AL/PL ATELE T RDW 12.6 % 11.7-1 5.4 Not Available [facility] ([facility]) [address] [place], [address], 09/02/2023 11:15:39 09/01/19 24 09/02/2023 CBC WITH DIFFE RENTI AL/PL ATELE T platelets 404 x10e3 /uL 150-45 0 Not Available [facility] ([facility]) [address] [facility], [place], [address], 09/02/2023 11:15:39 09/01/19 24 09/02/2023 CBC WITH DIFFE RENTI AL/PL ATELE T neutrophils 60 % notest ab. Not Available [facility] ([facility]) [address] [facility], [place], [address], 09/02/2023 11:15:39 09/01/19 24 09/02/2023 CBC WITH DIFFE RENTI AL/PL ATELE T lymphs 32 % notest ab. Not Available [facility] ([facility]) [address] [facility], [place], [address], 09/02/2023 11:15:39 09/01/19 24 09/02/2023 CBC WITH DIFFE RENTI AL/PL ATELE T monocytes 6 % notest ab. Not Available [facility] ([facility]) [address] [facility], [place], [address], 09/02/2023 11:15:39 09/01/19 24 09/02/2023 CBC WITH DIFFE RENTI AL/PL ATELE T eos 1 % notest ab. Not Available [facility] ([facility]) [address] [facility], [place], [address], 09/02/2023 11:15:39 09/01/19 24 09/02/2023 CBC WITH DIFFE RENTI AL/PL ATELE T basos 0 % notest ab. Not Available [facility] ([facility]) [address] [facility], [place], [address], 09/02/2023 11:15:39 09/01/19 24 09/02/2023 CBC WITH DIFFE RENTI AL/PL ATELE T neutrophils (absolute) 6.2 x10e3 /uL 1.4-7. 0 Not Available [facility] ([facility]) [address] [facility], [place], [address], 09/02/2023 11:15:39 09/01/19 24 09/02/2023 CBC WITH DIFFE RENTI AL/PL ATELE T lymphs (absolute) 3.4 x10e3 /uL 0.7-3. 1 above high normal Not Available [facility] ([facility]) [address] [facility], [place], [address], 09/02/2023 11:15:39 09/01/19 24 09/02/2023 CBC WITH DIFFE RENTI AL/PL ATELE T monocytes(ab solute) 0.6 x10e3 /uL 0.1-0. 9 Not Available [facility] ([facility]) [address] [facility], [place], [address], 09/02/2023 11:15:39 09/01/19 24 09/02/2023 CBC WITH DIFFE RENTI AL/PL ATELE T eos (absolute) 0.1 x10e3 /uL 0.0-0. 4 Not Available [facility] ([facility]) [address] [facility], [place], [address], 09/02/2023 11:15:39 09/01/19 24 09/02/2023 CBC WITH DIFFE RENTI AL/PL ATELE T baso (absolute) 0.0 x10e3 /uL 0.0-0. 2 Not Available [facility] ([facility]) [address] [facility], [place], [address], 09/02/2023 11:15:39 09/01/19 24 09/02/2023 CBC WITH DIFFE RENTI AL/PL ATELE T immature granulocytes 1 % notest ab. Not Available [facility] ([facility]) [address] [facility], [place], [address], 09/02/2023 11:15:39 09/01/19 24 09/02/2023 CBC WITH DIFFE RENTI AL/PL ATELE T immature grans (abs) 0.1 x10e3 /uL 0.0-0. 1 Not Available [facility] ([facility]) [address] [facility], [place], [address], 09/02/2023 11:15:39 09/01/19 24 09/02/2023 BEL+L IPASE amylase 35 U/L 31-110 Not Available [facility] ([facility]) [address] [facility], [place], [address], 09/02/2023 11:15:40 09/01/19 24 09/02/2023 BEL+L IPASE lipase 29 U/L 14-72 Not Available [facility] ([facility]) [address] [facility], [place], [address], 09/02/2023 11:15:40 09/03/19 24 09/03/2023 pregn eddie test, urine HCG negati ve Not Available In-Office Order Internal Use Only DO Not Attach Compendium DO Not Attach Compendium, Do Not Delete/merge, [id number] 09/03/2023 12:24:53 Result Notes None recorded. Problems Name Problem SNOMED Code Status Onset Date Resolution Date Notes Provider Name and Address Organization Details Recorded Time Multiple environm ental allergie s Active 2017 BRIGIDO Wolf, [place] - [facility] 2 12:48:51 Hypergly cemia 68774874 Completed 201707/02/2018 Oscar Chavarria null, [place] - [facility] 9 11:03:02 Psoriasi s of scalp 359780218 Completed 201702/04/2019 Suzie Arevalo RN [place], [place] [facility] 9 11:06:18 Uncontro lled type 2 diabetes mellitus 813789901 Active 2017 Suzie Areval[place] RN [place] [facility] 2 12:48:41 Mixed hyperlip idemia 083894988 Active 2018 Suzie Areval[place] RN [place] [facility] 2 12:49:13 Body mass index 40+ - severely obese 895711309 Completed 201811/01/2021 Removal Reason: better [facility] Att[facility]: Accountin g,[address] [facility], [place], [address], [place] - [facility] 3 13:06:10 Generali zed anxiety disorder 30094680 Active [address] [facility] Attn: Accountin g,[address] [facility], [place], [address], [place] [facility] 2 11:21:19 Vitamin D deficien cy 25734008 Active [address] [facility] Attn: Accountin g,[address] [facility], [place], [address], [place] - [facility] 2 11:21:19 Body mass index 40+ - severely obese 922376837 Completed 202105/06/[address] [facility] Attn: Accountin g,[address] [facility], [place], [address], [place] - [facility] 3 13:06:10 Hyperpig mentatio n of skin 48548301 Active [address] [facility] Attn: Accountin g,[address] [place], [address], [place] - [facility] 3 13:05:54 Allergy to fish 655086375 Active [address] [facility] Attn: Accountin g,[address] [place], [address], [place] - [facility] 3 13:05:54 Body mass index 30+ - obesity 696427263 Active [address] [facility] Attn: Accountin g,[address] [place], [address], [place] - [facility] 3 13:05:54 Multiple skin tags on neck 912241304 Completed 202205/06/2022 Suzie Areval[place] RN [place] [facility] 3 12:10:07 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 728100531 Active 2022 [facility] Attn: Accountin g,[address], [place], [address], [place] [facility] 3 13:05:54 Obesity 493811664 Active 2022 [facility] Attn: Accountin g,[address], [place], [address], [place] [facility] 3 12:14:20 Excess pannicul us of abdomen 33897071874 01 [facility]: Accountin g,[address], [place], [address], [place] - [facility] 3 12:14:13 Erythema dyschrom icum perstans 42466563 [facility] 20[facility] Attn: Accountin g,[address], [place], [address], [place] [facility] 4 15:11:19 Steatoti c liver disease 683467908 Active 2022 [facility] Attn: Accountin g,[address], [place], [address], [place] [facility] 4 15:11:19 Abnormal liver function 88155270 Completed 202309/03/2023 Removal Reason: resolved for now LAURA Hancock Attn: Accountin g,[address], [place], [address], [place] [facility] 4 13:04:06 Inguinal lymphade nopathy 007073243 Active [address] [facility] Attn: Nadege aponte,[address] [facility], [place], [address], [place] [facility] 4 15:11:19 Cholelit hiasis without obstruct ion 55691855 Active [address] [facility] Attn: Nadege aponte,[address] [facility], [place], [address], [place] [facility] 4 15:11:19 Cystic acne 81897754 Active [address] [facility] Attn: Nadege aponte,[address] [facility], [place], [address], [place] [facility] 4 15:11:19 Right upper quadrant pain 184755510 Active [address] [facility] Attn: Nadege aponte,[address] [facility], [place], [address], [place] [facility] 4 12:47:31 Anxiety 60099011 Active [address] [facility] Attn: Nadege aponte,[address] [facility], [place], [address], [place] [facility] 4 13:13:00 Impaired glucose toleranc e 0032629 Completed 10/17/2016 MCKAY Hidalgo [place] [facility] 7 16:17:03 Acute pharyngi tis 497065670 Completed 06/08/2015 Suzie Areval[place] RN [place] [facility] 6 12:45:07 Morbid obesity 071709033 Completed 02/04/2019 Suzie [place] [facility] 9 11:06:43 Allergic rhinitis 45804741 Completed 03/05/[address] [facility] Attn: Nadege aponte,[address] [place], [address], [place] [facility] 8 13:06:06 Venous varices 720486623 Active BRIGIDO Wolf, [place] - [facility] 2 12:49:21 Hyperlip idemia 68094022 Completed 03/05/2018 Suzie Arevalo RN null, [place] - [facility] 8 11:58:13 Backache 560762904 Completed 03/05/2018 BRIGIDO Wolf, [place] - [facility] 8 11:57:58 Chronic dermatit is 77452339 Active BRIGIDO Wolf, [place] - [facility] 2 12:48:32 Asteatos is cutis 11314829 Completed 02/04/2019 BRIGIDO Wolf, [place] - [facility] 9 11:06:49 Rhinitis 24476230 Completed 01/02/2017 BRIGIDO Wolf, [facility] 7 13:22:54 Type 2 diabetes mellitus 09397144 Completed 201602/04/2019 Suzie Arevalo RN null, [place] - [facility] 9 11:06:32 Dyslipid emia 232910122 Completed 201602/04/2019 BRIGIDO Wolf, [facility] 9 11:06:24 Problem Notes None recorded. Procedures Surgical History Date Name Laterality Status Provider Name and Address Organization Details Recorded Time 05/02/19 23 Skin Tag Removal completed LAURA Hancock Attn: Accounting,[address] [place], [address], [facility] - [facility] 05/02/2022 16:42:03 04/25/19 23 Date of Last Pap Smear completed Suzie Arevalo RN PA - [facility] 06/06/2022 12:58:35 04/20/19 15 Tonsillectomy completed Suzie Arevalo RN PA - [facility] 04/06/2015 11:08:40 Imaging Results None recorded. Procedure Notes None recorded. Medical Equipment None Reported. Allergies Allergen ID Allergen Name Allergen Category Reaction Reaction Severity Criticality Documentation Date Start Date Code Code System Note Provider Name and Address Organization Details Recorded Time 223959 lisinopri l medicatio n flushing moderate Not available 09/16/20192019 66442 RxNorm Chuck Craig, [facility]- Attn: Nadege aponte,[address], [place], [address], [facility] - [facility] 0 12:40:39 Medications Name Sig Start Date Stop Date Status Note LastModified by Organization Details LastModified Time FreeStyle Herrera 2 Sensor 09/06 completed Not Available Not [...] Available Not Available No t Available hydrocort [id number]|2024-08-31 21:22:00|2024-08-31 21:21:00|XMS_ITS|NORBERT ARAUJO|External Medical Summaries|[id number]|" Encounter Summary Created on: August 31, 2024 Yasmeen Ny : 1990 Sex: Female Author Organization [facility] Address [address] [place] [address] Care Team Providers Care Credit Administration Officer Name Role Phone Omar, Chuck Robertson DOPE [employer]Y HOUSE OPERATOR-SPACE AND STORAGE CLERK Primary Care Pro vider Encounter Details Date Type Department Care Team (Late st Contact Info) Description 08/29/2024 Orders Only [facility] MATERNAL/ EVALUATION UNIT [facility] [facility]. [address] [place] [address] Elaine Sorenson, RN Dysuria during in third trimester (HCC) Social History Tobacco Use Types Packs/Day Years [...] and heating? Not hard at all 08/23/2024 [facility] Occupat ional [facility] - Occupational Stress [...] things needed for daily living? No 08/23/2024 [place] Depression Scale Answer Date Recorded [place] Depression Scale Total 1 03/01/2024 The thought [...] any time in the past 12 m [facility], were you homeless or living in a [...] Info) Description 09/06/2024 1:00 PM CDT Appointment [facility] MATERNAL/ EVALUATION UNIT [address] [place] [address]. [address] [place] [address] 09/06/2024 1:30 PM CDT Appointment [facility] MATERNAL/ EVALUATION UNIT [address] [place] [address]. [address] [place] [address] 09/06/2024 2:30 PM CDT Appointment [facility] MATERNAL/ EVALUATION UNIT [address] [place] [address] 09/06/2024 2:30 PM CDT Appointment [facility] MATERNAL/ EVALUATION UNIT [address] [place] [address] 09/13/2024 1:30 PM CDT Appointment [facility]ERNAL/ EVALUATION UNIT [address] [place] [address] 09/13/2024 2:30 PM CDT Appointment [facility] MATERNAL/ EVALUATION UNIT [address] [place] [address] 09/20/2024 1:00 PM CDT Appointment [facility] MATERNAL/ EVALUATION UNIT [address] [place] [address] 09/20/2024 2:15 PM CDT Appointment [facility] MATERNAL/ EVALUATION UNIT [facility] [address] [place] [address] 09/27/2024 1:00 PM CDT Appointment [facility] MATERNAL/ EVALUATION UNIT [facility] [address] [place] [address] 09/27/2024 2:15 PM CDT Appointment [facility] MATERNAL/ EVALUATION UNIT [facility] [address] [place] [id number] documented as of this encounter Results * (ABNORMAL) URINALYSIS REFLEX MICROSCOPIC REFLEX CULTURE (08/30/2024 1:22 PM CDT) Color UA Yellow Yellow, Straw 08/30/2024 2:31 PM CDT [facility] Clarity UA Clear Clear 08/30/2024 2:31 PM CDT [facility] Glucose UA Normal Normal 08/30/2024 2:31 PM CDT [facility] Bilirubin UA Negative Negative 08/30/2024 2:31 PM CDT [facility] Ketone UA Negative Negative 08/30/2024 2:31 PM CDT [facility] Specific [place] UA <1.005(L) 1.005 - 1.030 08/30/2024 2:31 PM CDT [facility] Blood UA Negative Negative 08/30/2024 2:31 PM CDT [facility] pH UA 6.5 5.0 - 8.0 pH 08/30/2024 2:31 PM CDT [facility] Protein UA Negative Negative 08/30/2024 2:31 PM CDT [facility] Urobilinogen UA Normal Normal mg/dL 08/30/2024 2:31 PM CDT [facility] Nitrite UA Negative Negative 08/30/2024 2:31 PM CDT [facility] Leukocyte UA 25 MIA/uL(A) Negative 08/30/2024 2:31 PM CDT [facility] RBC UA 0-2 0 - 5 # /hpf 08/30/2024 2:31 PM CDT [facility] WBC UA 0-5 0 - 5 # /hpf 08/30/2024 2:31 PM CDT [facility] Bacteria UA Trace(A) None Seen 08/30/2024 2:31 PM CDT [facility] Squamous Epithelial Cells 0-2 0 - 5 /hpf 08/30/2024 2:31 PM CDT [facility] Mucus UA 1+ /LPF 08/30/2024 2:31 PM CDT [facility] Reflex Status Culture to follow 08/30/2024 2:31 PM CDT [facility] Urine URINE SPECIMEN OBTAINED BY CLEAN CATCH PROCEDURE / Unknown Collection / Unknown 08/30/2024 1:22 PM CDT 08/30/2024 2:22 PM CDT Narrative [facility] - 08/30/2024 2:31 PM CDT us Bel Gibson MD LAB - URINALYSIS ORDERABLES Wilma l Result [facility] [address] [place] [address] documented in this encounter Visit Diagnoses Diagnosis Dysuria during in third trimester (HCC)- Primary documented in this encounter Care Teams Credit Administration Officer Relationship Specialty Start Date End Date Chuck Craig APRN-EMILY [facility] [place] [phone] PCP - General Nurse Practitioner 08/25/22 documented as of this encounter "
--- OUTSIDE RECORDS SUMMARY | 2024-08-31 21:22 | XMS_ITS | Encounter Summary ---
Author Organization [facility] Health Address [address] [place] [address] Care Team Providers Care Lens Shaper Grinder Name Role Phone Chuck Nelson Marcelo PROJECTION PRINTER-SLINGER SEQUINS Primary Care Pro vider Reason for Visit * Reason Onset Date Comments Scheduling 08/31/2024 Encounter Details Date Type Department Care Team (Late st Contact Info) Description 08/31/2024 Telephone [facility] MATERNAL/ EVALUATION UNIT [address] [facility] [facility] [address] [place] [address] Cara Dent Scheduling Social History Tobacco Use Types Packs/Day Years [...] and heating? Not hard at all 08/23/2024 [facility] [place] of Occupat ional Health - Occupational Stress [...] things needed for daily living? No 08/23/2024 [place] Depression Scale Answer Date Recorded [place] Depression Scale Total 1 03/01/2024 The thought [...] any time in the past 12 m [facility], were you homeless or living in a half-way (including now)? No 08/23/2024 Estimated Date of Delivery Comme nts Yes 10/19/2024 Based on last me nstrual period of 01/13/2024 Sex and Gender Information Value Date Recorded Sex Assigned at Not on file Legal Sex Female 2:51 PM CDT Gender Identity Not on file Sexual Orientation Not on file documented as of this encounter Miscellaneous Notes * Telephone Encounter - Cara Dent - 08/31/2024 9:25 AM CDT Contacted patient to schedule appointment with M. (In basket). Scheduled patient for [facility] BPP/NST. Patient wants to go to different location for NST on Fridays. documented in this encounter Plan of Treatment Upcoming Encounters Date Type Department Care Team (Late st Contact Info) Description 09/06/2024 1:00 PM CDT Appointment [facility] MATERNAL/ EVALUATION UNIT [address] [place] [address] [address] [place] [address] 09/06/2024 1:30 PM CDT Appointment [facility] MATERNAL/ EVALUATION UNIT [address] [place] [address] 09/06/2024 2:30 PM CDT Appointment [facility] MATERNAL/ EVALUATION UNIT [address] [place] [address] 09/06/2024 2:30 PM CDT Appointment [facility] MATERNAL/ EVALUATION UNIT [address] [place] [address] 09/13/2024 1:30 PM CDT Appointment [facility] MATERNAL/ EVALUATION UNIT [address] [place] [address] 09/13/2024 2:30 PM CDT Appointment [facility] MATERNAL/ EVALUATION UNIT [address] [place] [address] 09/20/2024 1:00 PM CDT Appointment [facility] MATERNAL/ EVALUATION UNIT [address] [place] [address] 09/20/2024 2:15 PM CDT Appointment [facility] MATERNAL/ EVALUATION UNIT [address] [place] [address] 09/27/2024 1:00 PM CDT Appointment [facility] MATERNAL/ EVALUATION UNIT [address] [place] [address] 09/27/2024 2:15 PM CDT Appointment [facility] MATERNAL/ EVALUATION UNIT [address] [place] [address] documented as of this encounter Visit Diagnoses Not on filedocumented in this encounter Care Teams Lens Shaper Grinder Relationship Specialty Start Date End Date Chuck Nelson APRN-EMILY [address] [place] [phone] PCP - General Nurse Practitioner 08/25/22 documented as of this encounter
--- OUTSIDE RECORDS SUMMARY | 2024-08-31 21:22 | XMS_ITS | Encounter Summary ---
Author Organization [facility] Health Address [address] [facility] [place] [address] Care Team Providers Care Master Police Detective Name Role Phone Chuck Nelson Marcelo PINSETTER MECHANIC AUTOMATIC-CHASER APPRENTICE Primary Care Pro vider Encounter Details Date Type Department Care Team (Latest Contact Info) Description 08/30/2024 Travel Social History Tobacco Use Types Packs/Day Years [...] hard at all 08/23/2024 [facility] [place] of Occupat ional Health - Occupational Stress [...] things needed for daily living? No 08/23/2024 [place] Depression Scale Answer Date Recorded [place] Depression Scale Total 1 03/01/2024 The thought [...] any time in the past 12 m [facility], were you homeless or living in a [place] [facility] [place] facility (including now)? No 08/23/2024 Estimated Date of [...] Info) Description 09/06/2024 1:00 PM CDT Appointment [facility] MATERNAL/ EVALUATION UNIT [facility] [address] [address] 09/06/2024 1:30 PM CDT Appointment [facility] MATERNAL/ EVALUATION UNIT [facility] [address] [address] 09/06/2024 2:30 PM CDT Appointment [facility] MATERNAL/ EVALUATION UNIT [facility] [address] [place] [address] 09/06/2024 2:30 PM CDT Appointment [facility] MATERNAL/ EVALUATION UNIT [facility] [address] [address] 09/13/2024 1:30 PM CDT Appointment [facility] MATERNAL/ EVALUATION UNIT [facility] [address] [address] 09/13/2024 2:30 PM CDT Appointment [facility] MATERNAL/ EVALUATION UNIT [address] [place] [address] 09/20/2024 1:00 PM CDT Appointment [facility] MATERNAL/ EVALUATION UNIT [address] [place] [address] 09/20/2024 2:15 PM CDT Appointment [facility] MATERNAL/ EVALUATION UNIT [address] [place] [address] 09/27/2024 1:00 PM CDT Appointment [facility] MATERNAL/ EVALUATION UNIT [address] [place] [address] 09/27/2024 2:15 PM CDT Appointment [facility] MATERNAL/ EVALUATION UNIT [address] [place] [address] documented as of this encounter Visit Diagnoses Not on filedocumented in this encounter Care Teams Master Police Detective Relationship Specialty Start Date End Date Chuck Nelson APRN-CHASER APPRENTICE [address] [place] [phone] PCP - General Nurse Practitioner 08/25/22 documented as of this encounter
[2024-08-31 21:30] VITALS: BP 135/84; PULSE 90
[2024-08-31 21:55] LABS: Add Urine Microscopic? YES; Appearance Urine Cloudy (Clear); Bacteria Urine None Seen /hpf; Bilirubin Urine Negative (Negative); Blood Urine 2+ (Negative); Color Urine Dark Yellow (Yellow); Glucose Urine UA Negative (Negative); Ketones Urine 1+ mg/dL (Negative); Leukocyte Esterase Ur 3+ LEU/UL (Negative); Need Manual Microscopic Reviewed; Nitrate Urine Positive (Negative); Protein Urine 2+ mg/dL (Negative); RBC Urine >100 /hpf (0-2); Squamous Epithelial Cell Urine None Seen /hpf (Few); WBC Urine >100 /hpf (0-3); pH Urine 6.5 (5.0-9.0)
--- NOTE | 2024-08-31 22:00 | PC.NURSE ---
RN called CNM and made her aware of pts arrival to unit with complaints of abdominal pain. RN reported FHT's and absence of contractions as well as vitals and results of UA. Orders received for discharge and abx rx to be sent out with first dose being given here.
[2024-08-31 22:01] VITALS: BP 148/79; PULSE 79
[2024-08-31] MEDS: CEPHALEXIN 500 MG CAPSULE PO (22:12)
--- NOTE | 2024-09-01 16:37 | PM.OBTRLD ---
OB - Triage/Final Diagnosis Visit Information Date of evaluation: 08/31/24 Reason for evaluation: other (abd pain) Comments/Additional reasons for admission: I have assessed the risk for this patient, Yasmeen Ny, and determined that she would benefit from observation care. Evaluation Laboratory results: Laboratory Tests 08/31/24 21:35 Urine Color Dark yellow Urine Appearance Cloudy H Urine pH 6.5 Ur Specific [place] 1.010 Urine Protein 2+ H Urine Glucose (UA) Negative Urine Ketones 1+ H Ur Blood (Man) 2+ H Urine Nitrate Positive H Urine Bilirubin Negative Urine Urobilinogen 1.0 Add Ur Microanalysis Reviewed Leukocyte Esterase Rfl 3+ H Urine RBC >100 H Urine WBC >100 H Ur Squamous Epith Cells None seen Urine Bacteria None seen Urine Casts 3-5 Vital signs: Vital Signs - 24 hr 08/31/24 21:30 08/31/24 21:40 08/31/24 22:01 Pulse Rate 90 79 Blood Pressure 135/84 148/79 H Oxygen Delivery Room Air
== END 2024-08-31 22:20 | disposition home or self-care (01) ==
PROVIDERS: Advanced Practice Midwife; Admitting Provider Obstetrics & Gynecology; Visit Provider Obstetrics & Gynecology
DX: O26.893 Other specified pregnancy related conditions, third trimester (principal); R10.9 Unspecified abdominal pain; Z3A.33 33 weeks gestation of pregnancy
CPT/HCPCS: 81001; 87077; 87086; 87186; A9270; G0378; G0379

== ENCOUNTER 2024-09-21 09:09 | Outpatient (CLI) | payer OTHER, SELFPAY ==
[2024-09-21] VITALS (10 sets, daily range): BP systolic 100–137; BP diastolic 56–82; PULSE 73–108
--- OUTSIDE RECORDS SUMMARY | 2024-09-21 09:19 | XMS_ITS | Continuity of Care Document ---
Author Organization [facility] Address [address] [place] [address] Phone Care Team Providers Care Apartment Groundskeeper Name Role Phone Serg Caban MD Unavailable Ruchi vailable Medications Medication Instructions Dosage Effective Dates (start - stop) Status Comments triamcinolone acetonide 0.1 % Topical Cream apply by TOPICAL route 2 times every day a thin film to the affected skin areas - Active quantity in grams Procedures Procedure Date OFFICE/OUTPATIENT VISIT, [facility] OFFICE/OUTPATIENT VISIT, [facility] Advance Directives Directive Yes / No Effective Date File Name No Information Encounters Encounter Description Practice Location Reason(s) For Visit Diagnoses Date Provider Providers Copied on Encounter [facility] , [address], [place], [place], [id number], tel:[phone] [facility] [place] No Information Marlyn Ulrich. [address], [place], [place], [address], . tel:[phone] OFFICE/OUTPATI ENT VISIT, EST [facility] , [address], [place], [place], [address], tel:[phone] [facility] [place] exam (chief complaint) Intestinal infection due to other organism, not elsewhere classified Marlyn Ulrich. [address], [place], [place], [address], . tel:[phone] [facility] , [address], [place], [place], [address], tel:[phone] [facility] [place] No Information Marlyn Ulrich. [address], [place], [place], [address], [place]. tel:[phone] OFFICE/OUTPATI ENT VISIT, [facility] , [address], [place], [place], [address], tel:[phone] [facility] [place] back pain (chief complaint) Backache Dominiquelorikelsey Ulrich. [address], [place], [place], [address], [place]. tel:[phone] Family History Family Member Type Diagnosis Age At Onset No Information Payers Payer name Insurance type Covered constitution party ID [facility] [id number] Social History Type Description Quantity Date Captured [...]
--- OUTSIDE RECORDS SUMMARY | 2024-09-21 09:19 | XMS_ITS | Encounter Summary ---
Author Organization [facility] Health Address [address] [facility] [place] [address] Care Team Providers Care Chief Controller Station Name Role Phone Chuck Nelson Marcelo CARDIOPULMONARY TECHNOLOGIST-STRAW HAT BRIM CUTTER OPERATOR Primary Care Pro vider Encounter Details Date Type Department Care Team (Latest Contact Info) Description 09/20/2024 Travel Social History Tobacco Use Types Packs/Day [...] and heating? Not hard at all 08/23/2024 [facility] [place] of Occupat ional Health - Occupational Stress [...] things needed for daily living? No 08/23/2024 [place] Depression Scale Answer Date Recorded [place] Depression Scale Total 1 03/01/2024 The thought [...] time in the past 12 m [facility], were you homeless or living in a intermediate (including now)? No 08/23/2024 Estimated Date of [...] Care Team (Late st Contact Info) Description 09/22/2024 7:30 AM CDT Appointment [facility] MATERNAL/ EVALUATION UNIT [facility] [address] [address] 09/26/2024 9:30 AM CDT Appointment [facility] MATERNAL/ EVALUATION UNIT [facility] [address] [place] [address] 09/26/2024 10:30 AM CDT Appointment [facility] MATERNAL/ EVALUATION UNIT [facility] [address] [place] [address] 09/26/2024 11:15 AM CDT Appointment [facility] MATERNAL/ EVALUATION UNIT [facility] [address] [address] 09/27/2024 1:00 PM CDT Appointment [facility] MATERNAL/ EVALUATION UNIT [facility] [address] [address] 09/27/2024 2:15 PM CDT Appointment [facility] MATERNAL/ EVALUATION UNIT [address] [place] [address] 09/29/2024 1:00 PM CDT Appointment [facility] MATERNAL/ EVALUATION UNIT [address] [place] [address] 10/03/2024 9:30 AM CDT Appointment [facility] MATERNAL/ EVALUATION UNIT [address] [place] [address] 10/03/2024 10:30 AM CDT Appointment [facility] MATERNAL/ EVALUATION UNIT [address] [place] [address] 10/06/2024 1:00 PM CDT Appointment [facility] MATERNAL/ EVALUATION UNIT [facility] [place] [address] documented as of this encounter Visit Diagnoses Not on filedocumented in this encounter Care Teams Chief Controller Station Relationship Specialty Start Date End Date Chuck Nelson APRN-STRAW HAT BRIM CUTTER OPERATOR [address] [place] [phone] PCP - General Nurse Practitioner 08/25/22 documented as of this encounter
--- OUTSIDE RECORDS SUMMARY | 2024-09-21 09:19 | XMS_ITS | Encounter Summary ---
Author Organization [facility] Address [address] [facility] [place] [address] Care Team Providers Care Business Services Manager Name Role Phone Chuck Nelson HOUSECLEANER-SERVICE ESTABLISHMENT ATTENDANT Primary Care Pro vider Reason for Referral * (Routine) - Open Specialty Diagnoses / Procedures Referred By Contkarina t Referred To Contact Diagnoses Pre-existing type 2 diabetes mellitus during , antepartum (HCC) Procedures BIOPHYSICAL PROFILE W T Eduar Hernandez MD [address] [place] [address] Phone: tel: fax: Referral ID Status Reason Start Date Expiration Date Visits Re quested Visits Authorized [id number] Open 07/25/2024 07/25/2025 8 8 Reason for Visit * Reason Comments Ultrasound * (Routine) - Open Specialty Diagnoses / Procedures Referred By Chet mac Referred To Contact Diagnoses Pre-existing type 2 diabetes mellitus during , antepartum (HCC) Procedures BIOPHYSICAL PROFILE W NST Eduar Hernandez MD [address] [address] Phone: tel: fax: Referral ID Status Reason Start Date Expiration Date Visits Re quested Visits Authorized [id number] Open 07/25/2024 07/25/2025 8 8 Encounter Details Date Type Department Care Team (Latest Contact Info) Description 09/20/2024 1:11 PM CDT - 09/20/2024 11:59 PM CDT Hospital Encounter [facility] MATERNAL/ EVALUATION UNIT [address] [place] [address] Maryjane Ortega MD [address] [facility] [address] [place] [address] Discharge Disposition: Home or Self [...] and heating? Not hard at all 08/23/2024 [facility] of Occupat ional Health - Occupational Stress [...] things needed for daily living? No 08/23/2024 [place] Depression Scale Answer Date Recorded [place] Depression Scale Total 1 03/01/2024 The thought [...] any time in the past 12 m [facility], were you homeless or living in [...] diabetes mellitus during , antepartum ([facility]),Type 2 diabetes mellitus with stage 1 chronic kidney disease, with long-term current use of insulin ([facility]) To monitor blood glucose (sugar) 4x daily- fasting and 1 hour after meals 100 strip 5 03/01/2024 Blood Glucose Monitoring Suppl (OneTouch Verio) w/Device KITIndications:P re-existing type 2 diabetes mellitus during , antepartum ([facility]),Type 2 diabetes mellitus with stage 1 chronic kidney disease, with long-term current use of insulin ([facility]) Use 1 Each as directed 1 kit 03/01/2024 cephalexin (Keflex) 500 MG capsule Take 1 (one) capsule by mouth 2 times daily 14 capsule 08/31/2024 Clindamycin Phosphate (Clindamycin Phos, Once-Daily,) 1 % GEL APPLY A THIN LAYER TOPICALLY TO AFFECTED AREA TWICE DAILY Continuous Glucose Sensor ([employer] G7 Sensor) MISCIndications: Pre-existing type 2 diabetes mellitus during , antepartum (HCC) Use 1 Each Continuous for 10 days 3 Each 5 09/13/2024 escitalopram (Lexapro) 20 MG tablet Take 1 (one) tablet by mouth once daily fluconazole (Diflucan) 150 MG tabletIndication s:Vaginitis affecting in third trimester, antepartum ([facility]) Take 1 (one) tablet by mouth once daily Take second tablet if symptoms persist after 72 hours. 2 tablet 09/06/2024 fluticasone propionate (Flonase) 50 MCG/ACT nasal spray USE 1 SPRAY(S) IN EACH NOSTRIL ONCE DAILY Glucagon (Baqsimi One Pack) 3 MG/DOSE POWD [place] 1 Each into the nose as needed 1 Each 03/15/2024 hydrOXYzine HCl (Atarax) 25 MG tablet Take 1 (one) tablet by mouth 3 times daily insulin glargine (Lantus/Semglee) 100 units/mL penIndications:T ype 2 diabetes mellitus with hyperglycemia, unspecified whether detention insulin use ([facility]) Inject 24 units in the morning and 24 units at bedtime. Take dosages approximately 12 hours apart. Increase dose as directed due to increasing insulin requirements during . Max total daily dose = 50u 15 mL 09/06/2024 insulin lispro (HumaLOG;ADMelog ) 100 UNIT/ML penIndications:T ype 2 diabetes mellitus with hyperglycemia, unspecified whether detention insulin use ([facility]) Inject 18u before small meals (<30g), 20 units before medium meals (30-45g), and 22u before large meals (>60g). Inject 6u with snacks. Inject 0-15 minutes before meals. Increase dose as directed during . Max total daily dose = 100 units. 30 mL 5 08/23/2024 Insulin Pen Needle (Izzy MoneyLite Pen [place]) 32G X 4 MM MISCIndications: Pre-existing type 2 diabetes mellitus during , antepartum ([facility]) Use 1 Each 5 times daily 150 Each 5 08/23/2024 Lancets (ONETOUCH DELICA PLUS 33G EXTRA FINE LANCET)Indicatio ns:Pre-existing type 2 diabetes mellitus during , antepartum ([facility]),Type 2 diabetes mellitus with stage 1 chronic kidney disease, with long-term current use of insulin ([facility]) To monitor blood glucose (sugar) 4x daily- fasting and 1 hour after meals 100 Each 5 03/01/2024 magnesium oxide (Mag-Ox) 400 MG tablet Take 1 (one) tablet by mouth once daily 30 tablet 2 08/03/2024 montelukast (Singulair) 10 MG tablet TAKE 1 TABLET BY MOUTH ONCE DAILY FOR ALLERGIES nitrofurantoin monohyd macro crystals (Macrobid) 100 MG capsuleIndicatio ns:Recurrent UTI Take 1 (one) capsule by mouth at bedtime Begin after treatment course of cephalexin is finished. 30 capsule 2 09/06/2024 Vit-Fe Fumarate-FA (M- Plus) 27-1 MG TABS 08/01/2024 triamcinolone acetonide (Kenalog) 0.1 % cream APPLY CREAM EXTERNALLY TO AFFECTED AREA TWICE DAILY FOR 90 DAYS FOR DERMATITIS documented as of this encounter Plan of Treatment Upcoming Encounters Date Type Department Care Team (Late st Contact Info) Description 09/22/2024 7:30 AM CDT Appointment [facility] MATERNAL/ EVALUATION UNIT [address] [address] 09/26/2024 9:30 AM CDT Appointment [facility] MATERNAL/ EVALUATION UNIT [address] [address] 09/26/2024 10:30 AM CDT Appointment [facility] MATERNAL/ EVALUATION UNIT [address] [address] 09/26/2024 11:15 AM CDT Appointment [facility] MATERNAL/ EVALUATION UNIT [address] [address] 09/27/2024 1:00 PM CDT Appointment [facility] MATERNAL/ EVALUATION UNIT [address] [address] 09/27/2024 2:15 PM CDT Appointment [facility] MATERNAL/ EVALUATION UNIT [address] [address] 09/29/2024 1:00 PM CDT Appointment [facility] MATERNAL/ EVALUATION UNIT [address] [address] 10/03/2024 9:30 AM CDT Appointment [facility] MATERNAL/ EVALUATION UNIT [address] [address] 10/03/2024 10:30 AM CDT Appointment [facility] MATERNAL/ EVALUATION UNIT [address] [place] [address] 10/06/2024 1:00 PM CDT Appointment [facility] MATERNAL/ EVALUATION UNIT [address] [place] [address] documented as of this encounter Procedures Procedure Name Priority Date/Time Associated Diagnosis Comments BIOPHYSICAL PROFILE W NST Routine 09/20/2024 2:59 PM CDT Pre-existing type 2 diabetes mellitus during , antepartum (HCC) documented in this encounter Results * BIOPHYSICAL PROFILE W NST (09/20/2024 2:59 PM CDT) Linked Results Indication ======== Diabetes mellitus, type II (on insulin) Obesity, Class II Normal echo 07/20/24 History ====== OB History 2. Para 1 [id number] Lab Tests Test Date Result NIPT 04/05/2024 Low risk, Female Maternal Assessment Physical Exam Height 163 cm, 5 ft 4 in. Weight 111 kg, 244 lb. Initial weight 89 kg, 196 lb. BMI 41.88 kg/m . Initial BMI 33.64 kg/m . Weight gain 22 kg, 48 lb Method ====== Transabdominal ultrasound examination. View: Sufficient ========= Valderrama . Number of fetuses: 1 Dating ====== Date Details Gest. age JEFF LMP 01/13/2024 Cycle: regular cycle 35 w + 6 d 10/19/2024 Stated JEFF 35 w + 6 d 10/19/2024 Assigned dating based on the LMP, selected on 09/20/2024 35 w + 6 d 10/19/2024 General Evaluation Cardiac activity present. FHR 141 bpm. Presentation: cephalic Placenta: Placental site: posterior Amniotic Fluid Assessment ==== Amount of AF: subjectively low MVP 2.3 cm. ABHAY 5.9 cm. Q1 0.6 cm, Q2 2.3 cm, Q3 1.1 cm, Q4 1.9 cm Biophysical Profile 2: breathing movements 2: Gross body movements 2: tone 2: Amniotic fluid volume NST: reactive 01/27 Biophysical profile score Non Stress Test NST interpretation: reactive. Baseline FHR 130 bpm. Accelerations: present. Decelerations: absent Biometry BPD 86.2 mm 34w 5d 26% Hadlock HC 316.7 mm 35w 4d 15% Hadlock AC 327.9 mm 36w 5d 81% Hadlock Femur 65.2 mm 33w 4d 4% Hadlock Humerus 57.5 mm 33w 3d 14% Nell HC / AC 0.97 Weight Calculation: EFW 2,718 g 43% Hadlock EFW (lb,oz) 6 lb 0 oz EFW by Hadlock (LJA-CZ-IS-FL) appropriate Growth Overview Exam date GA BPD [...] 59% 57.2 4% 51.7 11% 1768 27% 09/20/2024 35w 6d 86.2 26% 316.7 15% 327.9 81% 65.2 4% 57.5 14% 2718 43% Anatomy The following structures appear normal: Abdomen Stomach. Kidneys. Bladder. sex: female. Doppler Umbilical Artery: PI 1.15 94% Pennie S / D 3.13 86% Pennie Impression ========= Single, live, intrauterine at 35w 6d The growth is appropriate for gestational age The amniotic fluid volume at the lower limit of normal, however not diagnostic of oligohydramnios. A single 2x2 cm pocket is identified Normal umbilical artery Doppler studies The biophysical profile is 10/10. Comment ======== ultrasound alone cannot detect all structural, genetic, or functional , placental, or maternal abnormalities Follow-up ======== Patient scheduled for [facility] appt immediately following today's scan, notified provider of borderline oligohydramnios. Recommend r/o ROM. Recommend US for ABHAY check in 3 days if exam negative for ROM. Continue 2x/week testing (2x/week NST, weekly BPP), repeat UA Doppler studies in 1 week. Repeat growth in 3 weeks. Coding ====== Procedures [address]356: [place] [address]: Biophysical Profile W NST [address]: Umbilical Doppler ICVRx PACS Anatomical Region Laterality Modality Other 09/20/2024 2:59 PM CDT Eduar Hernandez MD [facility] ORDERABLES Edited Result - Final documented in this encounter Visit Diagnoses Diagnosis Pre-existing type 2 diabetes mellitus during , antepartum (HCC) documented in this encounter Care Teams Business Services Manager Relationship Specialty Start Date End Date Chuck Nelson, FREDERICK-EMILY [facility] [address] [phone] PCP - General Nurse Practitioner 08/25/22 documented as of this encounter
--- OUTSIDE RECORDS SUMMARY | 2024-09-21 09:19 | XMS_ITS | Clinical Summary ---
Author Organization [facility] Care Team Providers Care Potato Chip Frier Name Role Phone Unavailable Primary Care Provider Unavailabl e Social History Tobacco Use Types Packs/Day Years Used Date Smoking Tobacco: Never Assessed Comments Unknown Sex and Gender Information Value Date Recorded Sex Assigned at Not on file Legal Sex Female 12:57 PM CURRICULUM WRITER Gender Identity Not on file Sexual Orientation [...]
--- OUTSIDE RECORDS SUMMARY | 2024-09-21 09:19 | XMS_ITS | Clinical Summary ---
Author Organization [facility] Address [address] [place] [address] Care Team Providers Care Watch Assembly Inspector Name Role Phone OmarNarcisoramakrishnaleanna NEGRITO Primary Care Provider [phone] Christopher Nelson MD Unavailable [phone] Allergies Active Allergy Reactions Criticality Noted Date [...] on file Legal Sex Female 7:51 PM CONTRACTS DIRECTOR Gender Identity Not on file Sexual Orientation [...] A M CDT Height 162.6 cm (5' 4) 09/30/2023 5:53 AM CDT Body Mass Index [...] - 2023-2 5 season) 2023 06/05/2021, 05/15/2021 Hemoglobin A1C 03/25/2024 09/24/2023 eGFR 09/23/2024 09/24/2023 Influenza Vaccine (Season Ended) 2024 02/05/2023, 01/30/2022, 04/16/2020, Additional history exists DTaP/Tdap/Td Vaccine (3 - Td or Tdap) [...] was last reviewed 2021. Testing performed by: [address] [address] Blood 09/24/2023 8:42 AM CDT 09/24/2023 9:06 AM CDT Sajan Pollard MD LAB BLOOD ORDERABL ES Final Result Performing Organization Address City/[facility]/ZIP Co de Phone Number KELLEN [address] [facility] [place] [address] * (ABNORMAL) Hemoglobin A1c (09/24/2023 8:42 AM CDT) Hgb A1C 6.8(H) 4.0 - 5.6 % Comment:Testing performed by : [address] [address] Estimated Average Glucose 148 mg/dL KELLEN Comment: The ADA recommends reporting an estimated Average Glucose (eAG) with all Hemoglobin A1c results using the equation derived from a study of 507 normal and diabetic adults. Minority populations were underrepresented and children were not included. (Diabetes Care 31:2258-5844, 2008). The eAG is not equivalent to a fasting glucose. Testing performed by: [address] [address] Blood 09/24/2023 8:42 AM CDT 09/24/2023 9:06 AM CDT Narrative KELLEN - 09/24/2023 9:40 AM CDT PRE SURGERY TESTING ONLY Sajan Pollard MD LAB BLOOD ORDERABL ES Final Result KELLEN [address] [facility] [place] [address] from Last 3 Months or Most Recently Relevant to Health Maintenance Insurance [facility] CHOICE PLUS IDPA HEALTHLINK OPEN ACCESS IDPA [employer] OPEN ACCESS Care Teams Watch Assembly Inspector Relationship Specialty Start Date End Date Chuck Nelson NP PCP - General 01/26/19 Christopher Nelson MD [address] [place] [id number] Consulting Physician General Surgery 09/30/23
--- OUTSIDE RECORDS SUMMARY | 2024-09-21 09:19 | XMS_ITS | Referral Summary ---
Author Organization [facility] Address [address] [place] [address] Care Team Providers Care Duplication Specialist Name Role Phone OmarNarcisoramakrishnaleanna NEGRITO Primary Care Provider [phone] Christopher Nelson MD Unavailable [phone] Allergies Active Allergy Reactions Criticality Noted Date [...] on file Legal Sex Female 7:51 PM HOT PUNCH PRESS OPERATOR Gender Identity Not on file Sexual [...] last reviewed 2021. Testing performed by: [address] [address] Blood 09/24/2023 8:42 AM CDT 09/24/2023 9:06 AM CDT us Sajan Pollard MD LAB BLOOD ORDERABL ES Final Result [facility] [address] [facility] Department [place] [address] * (ABNORMAL) Hemoglobin A1c (09/24/2023 8:42 AM CDT) Hgb A1C 6.8(H) 4.0 - 5.6 % Comment:Testing performed by : [address] [address] Estimated Average Glucose 148 mg/dL KELLEN TAARNGO Comment: The ADA recommends reporting an estimated Average Glucose (eAG) with all Hemoglobin A1c results using the equation derived from a study of 507 normal and diabetic adults. Minority populations were underrepresented and children were not included. (Diabetes Care 31:8797-1450, 2008). The eAG is not equivalent to a fasting glucose. Testing performed by: [facility], [address] [place] [address], [place]., [address] Blood 09/24/2023 8:42 AM CDT 09/24/2023 9:06 AM CDT Marquita TARANGO - 09/24/2023 9:40 AM CDT PRE SURGERY TESTING ONLY us Sajan Pollard MD LAB BLOOD ORDERABL ES Final Result KELLEN [address] [facility] Department [place] [address] from Last 3 Months or Most Recently Relevant to Health Maintenance Insurance [facility] CHOICE PLUS [facility] HMO/PPO Address: [facility] [address] [place] [address] IDPA HEALTHLINK OPEN ACCESS IDPA HE[employer] OPEN ACCESS Care Teams Duplication Specialist Relationship Specialty Start Date End Date Chuck Nelson NP PCP - General 01/26/19 Christopher Nelson MD [address] [place] [id number] Consulting Physician General Surgery 09/30/23
--- OUTSIDE RECORDS SUMMARY | 2024-09-21 09:19 | XMS_ITS | Encounter Summary ---
Author Organization [facility] Address [address] [facility] [place] [address] Care Team Providers Care Histology Aide Name Role Phone OmarNarciso rosalesolivia Robertson FIRE PROTECTION INSPECTOR-TRUCK OPERATOR Primary Care Pro vider Reason for Visit * Reason Onset Date Comments Appointment 09/21/2024 Encounter Details Date Type Department Care Team (Late st Contact Info) Description 09/21/2024 Telephone [facility] MATERNAL/ EVALUATION UNIT [address] [place] [address] Yani Mares Appointment Social History Tobacco Use Types Packs/Day Years [...] and heating? Not hard at all 08/23/2024 [facility] [place] of Occupat ional Health - Occupational Stress [...] things needed for daily living? No 08/23/2024 [place] Depression Scale Answer Date Recorded [place] Depression Scale Total 1 03/01/2024 The thought [...] any time in the past 12 m [facility], were you homeless or living [...] encounter Miscellaneous Notes * Telephone Encounter - Yani Mares - 09/21/2024 8:35 AM CDT (IN-Basket): Spoke w/pt and she confirmed that she is already scheduled at 7:30 AM tomorrow for dopplers and ABHAY check. documented in this encounter Plan of Treatment Upcoming Encounters Date Type Department Care Team (Late st Contact Info) Description 09/22/2024 7:30 AM CDT Appointment [facility] MATERNAL/ EVALUATION UNIT [address] [place] [address] 09/26/2024 9:30 AM CDT Appointment [facility] MATERNAL/ EVALUATION UNIT [address] [facility] [address] [place] [address] 09/26/2024 10:30 AM CDT Appointment [facility] MATERNAL/ EVALUATION UNIT [address] [place] [address] 09/26/2024 11:15 AM CDT Appointment [facility] MATERNAL/ EVALUATION UNIT [address] [place] [address] 09/27/2024 1:00 PM CDT Appointment [facility] MATERNAL/ EVALUATION UNIT [address] [place] [address] 09/27/2024 2:15 PM CDT Appointment [facility] MATERNAL/ EVALUATION UNIT [address] [place] [address] 09/29/2024 1:00 PM CDT Appointment [facility] MATERNAL/ EVALUATION UNIT [address] [place] [address] 10/03/2024 9:30 AM CDT Appointment [facility] MATERNAL/ EVALUATION UNIT [address] [place] [address] 10/03/2024 10:30 AM CDT Appointment [facility] MATERNAL/ EVALUATION UNIT [address] [place] [address] 10/06/2024 1:00 PM CDT Appointment [facility] MATERNAL/ EVALUATION UNIT [address] [place] [address] documented as of this encounter Visit Diagnoses Not on filedocumented in this encounter Care Teams Histology Aide Relationship Specialty Start Date End Date Chuck Nelson APRN-EMILY [address] [place] [phone] PCP - General Nurse Practitioner 08/25/22 documented as of this encounter
--- OUTSIDE RECORDS SUMMARY | 2024-09-21 09:19 | XMS_ITS | Encounter Summary ---
Author Organization [facility] Address [address] [facility] [place] [address] Care Team Providers Care Autopsy Assistant Name Role Phone Chuck Nelson RAMP MANAGER-CHIEF NURSING OFFICER Primary Care Pro vider Reason for Visit * Reason Comments Non-stress Test Encounter Details Date Type Department Care Team (Latest Contact Info) Description 09/20/2024 1:00 PM CDT - 09/20/2024 1:10 PM CDT Hospital Encounter [facility] MATERNAL/ EVALUATION UNIT [address] [facility] [place] [address] Maryjane Ortega MD [address] [facility] [address] [place] [address] Discharge Disposition: Home or Self [...] and heating? Not hard at all 08/23/2024 [facility] [place] of Occupat ional Health - Occupational Stress [...] things needed for daily living? No 08/23/2024 [place] Depression Scale Answer Date Recorded [place] Depression Scale Total 1 03/01/2024 The thought [...] any time in the past 12 m [facility], were you homeless or living in a prison (including now)? No 08/23/2024 Estimated Date of [...] type 2 diabetes mellitus during , antepartum ([facility]) Take 2 (two) tablets by mouth once daily 100 tablet 1 04/05/2024 blood glucose (OneTouch Verio) test stripIndications :Pre-existing type 2 diabetes mellitus during , antepartum ([facility]),Type 2 diabetes mellitus with stage 1 chronic kidney disease, with long-term current use of insulin ([facility]) To monitor blood glucose (sugar) 4x daily- fasting and 1 hour after meals 100 strip 5 03/01/2024 Blood Glucose Monitoring Suppl ([employer]) w/Device KITIndications:P re-existing type 2 diabetes mellitus during , antepartum ([facility]),Type 2 diabetes mellitus with stage 1 chronic kidney disease, with long-term current use of insulin ([facility]) Use 1 Each as directed 1 kit 03/01/2024 cephalexin (Keflex) 500 MG capsule Take 1 (one) capsule by mouth 2 times daily 14 capsule 08/31/2024 Continuous Glucose Sensor (Yocom G7 Sensor) MISCIndications: Pre-existing type 2 diabetes mellitus during , antepartum ([facility]) Use 1 Each Continuous for 10 days 3 Each 5 09/13/2024 escitalopram (Lexapro) 20 MG tablet Take 1 (one) tablet by mouth once daily fluconazole (Diflucan) 150 MG tabletIndication s:Vaginitis affecting in third trimester, antepartum ([facility]) Take 1 (one) tablet by mouth once daily Take second tablet if symptoms persist after 72 hours. 2 tablet 09/06/2024 fluticasone propionate (Flonase) 50 MCG/ACT nasal spray USE 1 SPRAY(S) IN EACH NOSTRIL ONCE DAILY Glucagon (Baqsimi One Pack) 3 MG/DOSE POWD [place] 1 Each into the nose as needed 1 Each 03/15/2024 hydrOXYzine HCl (Atarax) 25 MG tablet Take 1 (one) tablet by mouth 3 times daily insulin glargine (Lantus/Semglee) 100 units/mL penIndications:T ype 2 diabetes mellitus with hyperglycemia, unspecified whether intermediate card tender insulin use ([facility]) Inject 24 units in the morning and 24 units at bedtime. Take dosages approximately 12 hours apart. Increase dose as directed due to increasing insulin requirements during . Max total daily dose = 50u 15 mL 5 09/06/2024 insulin lispro (HumaLOG;ADMelog ) 100 UNIT/ML penIndications:T ype 2 diabetes mellitus with hyperglycemia, unspecified whether intermediate card tender insulin use ([facility]) Inject 18u before small meals (<30g), 20 units before medium meals (30-45g), and 22u before large meals (>60g). Inject 6u with snacks. Inject 0-15 minutes before meals. Increase dose as directed during . Max total daily dose = 100 units. 30 mL 5 08/23/2024 Insulin Pen Needle (TechLite Pen [place]) 32G X 4 MM MISCIndications: Pre-existing type 2 diabetes mellitus during , antepartum ([facility]) Use 1 Each 5 times daily 150 Each 5 08/23/2024 Lancets (ONETOUCH DELICA PLUS 33G EXTRA FINE LANCET)Indicatio ns:Pre-existing type 2 diabetes mellitus during , antepartum ([facility]),Type 2 diabetes mellitus with stage 1 chronic kidney disease, with long-term current use of insulin ([facility]) To monitor blood glucose (sugar) [...] Info) Description 09/22/2024 7:30 AM CDT Appointment [facility] MATERNAL/ EVALUATION UNIT [facility] [place] [address] 09/26/2024 9:30 AM CDT Appointment [facility] MATERNAL/ EVALUATION UNIT [facility] [address] [place] [address] 09/26/2024 10:30 AM CDT Appointment [facility] MATERNAL/ EVALUATION UNIT [facility] [place] [address] 09/26/2024 11:15 AM CDT Appointment [facility] MATERNAL/ EVALUATION UNIT [facility] [address] [place] [address] 09/27/2024 1:00 PM CDT Appointment [facility] MATERNAL/ EVALUATION UNIT [address] [place] [address] 09/27/2024 2:15 PM CDT Appointment [facility] MATERNAL/ EVALUATION UNIT [address] [place] [address] 09/29/2024 1:00 PM CDT Appointment [facility] MATERNAL/ EVALUATION UNIT [address] [place] [address] 10/03/2024 9:30 AM CDT Appointment [facility] MATERNAL/ EVALUATION UNIT [address] [place] [address] 10/03/2024 10:30 AM CDT Appointment [facility] MATERNAL/ EVALUATION UNIT [address] [place] [address] 10/06/2024 1:00 PM CDT Appointment [facility] MATERNAL/ EVALUATION UNIT [address] [place] [address] documented as of this encounter Visit Diagnoses Not on filedocumented in this encounter Care Teams Autopsy Assistant Relationship Specialty Start Date End Date Chuck Nelson APRN-CHIEF NURSING OFFICER [facility] [address] PCP - General Nurse Practitioner 08/25/22 documented as of this encounter
--- OUTSIDE RECORDS SUMMARY | 2024-09-21 09:19 | XMS_ITS | Encounter Summary ---
Author Organization [facility] Address [address] [facility] [place] [address] Care Team Providers Care Track Sweeper Name Role Phone Chuck Nelson Marcelo SENIOR ADVISORY-PHERESIS NURSE Primary Care Pro vider Encounter Details Date Type Department Care Team (Latest Contact Info) Description 09/20/2024 1:11 PM CDT - 09/20/2024 11:59 PM CDT Hospital Encounter [facility] MATERNAL/ EVALUATION UNIT [address] [facility] [place] [address] Luana Plummer MD [address] [facility] [place] [address] Discharge Disposition: Home or Self Care Social [...] and heating? Not hard at all 08/23/2024 [facility] [place] of Occupat ional Health - Occupational Stress [...] things needed for daily living? No 08/23/2024 [place] Depression Scale Answer Date Recorded [place] Depression Scale Total 1 03/01/2024 The thought [...] any time in the past 12 m [facility], were you homeless or living in a skilled nursing (including now)? No 08/23/2024 Estimated Date of [...] 2 diabetes mellitus during , antepartum ([facility]) Take 2 (two) tablets by mouth once daily 100 tablet 1 04/05/2024 blood glucose (OneTouch Verio) test stripIndications :Pre-existing type 2 diabetes mellitus during , antepartum ([facility]),Type 2 diabetes mellitus with stage 1 chronic kidney disease, with long-term current use of insulin ([facility]) To monitor blood glucose (sugar) 4x daily- fasting and 1 hour after meals 100 strip 5 03/01/2024 Blood Glucose Monitoring Suppl (VPEPio) w/Device KITIndications:P re-existing type 2 diabetes mellitus during , antepartum ([facility]),Type 2 diabetes mellitus with stage 1 chronic kidney disease, with long-term current use of insulin ([facility]) Use 1 Each as directed 1 kit 03/01/2024 cephalexin (Keflex) 500 MG capsule Take 1 (one) capsule by mouth 2 times daily 14 capsule 08/31/2024 Clindamycin Phosphate (Clindamycin Phos, Once-Daily,) 1 % GEL APPLY A THIN LAYER TOPICALLY TO AFFECTED AREA TWICE DAILY Continuous Glucose Sensor (AF83com G7 Sensor) MISCIndications: Pre-existing type 2 diabetes mellitus during , antepartum ([facility]) Use 1 Each Continuous for 10 days 3 Each 5 09/13/2024 escitalopram (Lexapro) 20 MG tablet Take 1 (one) tablet by mouth once daily fluconazole (Diflucan) 150 MG tabletIndication s:Vaginitis affecting in third trimester, antepartum ([facility]) Take 1 (one) tablet by mouth once daily Take second tablet if symptoms persist after 72 hours. 2 tablet 09/06/2024 fluticasone propionate (Flonase) 50 MCG/ACT nasal spray USE 1 SPRAY(S) IN EACH NOSTRIL ONCE DAILY Glucagon (Baqsimi One Pack) 3 MG/DOSE POWD [place] 1 Each into the nose as needed 1 Each 03/15/2024 hydrOXYzine HCl (Atarax) 25 MG tablet Take 1 (one) tablet by mouth 3 times daily insulin glargine (Lantus/Semglee) 100 units/mL penIndications:T ype 2 diabetes mellitus with hyperglycemia, unspecified whether terminal manager insulin use ([facility]) Inject 24 units in the morning and 24 units at bedtime. Take dosages approximately 12 hours apart. Increase dose as directed due to increasing insulin requirements during . Max total daily dose = 50u 15 mL 5 09/06/2024 insulin lispro (HumaLOG;ADMelog ) 100 UNIT/ML penIndications:T ype 2 diabetes mellitus with hyperglycemia, unspecified whether terminal manager insulin use ([facility]) Inject 18u before small meals (<30g), 20 units before medium meals (30-45g), and 22u before large meals (>60g). Inject 6u with snacks. Inject 0-15 minutes before meals. Increase dose as directed during . Max total daily dose = 100 units. 30 mL 5 08/23/2024 Insulin Pen Needle (TechLite Pen [place]) 32G X 4 MM MISCIndications: Pre-existing type 2 diabetes mellitus during , antepartum ([facility]) Use 1 Each 5 times daily 150 Each 5 08/23/2024 Lancets (ONETOUCH DELICA PLUS 33G EXTRA FINE LANCET)Indicatio ns:Pre-existing type 2 diabetes mellitus during , antepartum ([facility]),Type 2 diabetes mellitus with stage 1 chronic kidney disease, with long-term current use of insulin ([facility]) To monitor blood glucose (sugar) 4x daily- [...] finished. 30 capsule 2 09/06/2024 Vit-Fe Fumarate-FA (M-Raz Plus) 27-1 MG TABS 08/01/2024 triamcinolone acetonide (Kenalog) 0.1 % cream APPLY CREAM EXTERNALLY TO AFFECTED AREA TWICE DAILY FOR 90 DAYS FOR DERMATITIS documented as of this encounter Plan of Treatment Upcoming Encounters Date Type Department Care Team (Late st Contact Info) Description 09/22/2024 7:30 AM CDT Appointment [facility] MATERNAL/ EVALUATION UNIT [facility] [place] [address] 09/26/2024 9:30 AM CDT Appointment [facility] MATERNAL/ EVALUATION UNIT [facility] [place] [address] 09/26/2024 10:30 AM CDT Appointment [facility] MATERNAL/ EVALUATION UNIT [facility] [place] [address] 09/26/2024 11:15 AM CDT Appointment [facility] MATERNAL/ EVALUATION UNIT [address] [place] [address] 09/27/2024 1:00 PM CDT Appointment [facility] MATERNAL/ EVALUATION UNIT [address] [place] [address] 09/27/2024 2:15 PM CDT Appointment [facility] MATERNAL/ EVALUATION UNIT [address] [place] [address] 09/29/2024 1:00 PM CDT Appointment [facility] MATERNAL/ EVALUATION UNIT [address] [place] [address] 10/03/2024 9:30 AM CDT Appointment [facility] MATERNAL/ EVALUATION UNIT [address] [place] [address] 10/03/2024 10:30 AM CDT Appointment [facility] MATERNAL/ EVALUATION UNIT [address] [place] [address] 10/06/2024 1:00 PM CDT Appointment [facility] MATERNAL/ EVALUATION UNIT [facility] [address] [place] [address] documented as of this encounter Procedures Procedure Name Priority Date/Time Associated Diagnosis Comments URINALYSIS - POCT (IP) BEAKER INTERFACE Routine 09/20/2024 3:41 PM CDT documented in this encounter Results * (ABNORMAL) URINALYSIS - POCT (IP) BEAKER INTERFACE (09/20/2024 3:41 PM CDT) Color UA POCT Yellow Straw, Yellow, Dark Yellow, Light Yellow 09/20/2024 4:10 PM CDT [facility] Clarity UA POCT Clear Clear 4:10 PM CDT [facility] Specific [place] UA POCT >=1.030 1.005 - 1.030 09/20/2024 4:10 PM CDT [facility] pH UA POCT 6.0 5.0 - 8.0 pH 09/20/2024 4:10 PM CDT [facility] Protein UA POCT 3+(A) Negative 4:10 PM CDT [facility] Blood UA POCT Negative Negative 09/20/2024 4:10 PM CDT [facility] Leukocyte UA POCT Negative Negative 09/20/2024 4:10 PM CDT [facility] Nitrite UA POCT Negative Negative 4:10 PM CDT [facility] Glucose UA POCT Negative Negative 4:10 PM CDT [facility] Ketone UA POCT Negative Negative 09/20/2024 4:10 PM CDT [facility] Bilirubin UA POCT Negative Negative 09/20/2024 4:10 PM CDT [facility] Urobilinogen UA POCT 0.2 0.1 - 1.0 EU/dL 09/20/2024 4:10 PM CDT [facility] Urine URINE / Unknown 09/20/2024 3 :41 PM CDT 09/20/2024 4:10 PM CDT us Luana Plummer MD LAB - POINT OF CARE OR DERABLES Final Result Performing Organization Address City/State/[facility] Co de Phone Number [facility] [address] [place] [address] documented in this encounter Visit Diagnoses Not on filedocumented in this encounter Care Teams Track Sweeper Relationship Specialty Start Date End Date Chuck Nelson APRN-EMILY [address] [place] [phone] PCP - General Nurse Practitioner 08/25/22 documented as of this encounter
--- OUTSIDE RECORDS SUMMARY | 2024-09-21 09:19 | XMS_ITS | Encounter Summary ---
Author Organization [facility] Address [address] [place] [address] Care Team Providers Care Inspector Floor Sub Assembly Name Role Phone Chuck Nelson RESPIRATORY MANAGER-VEHICLE INSPECTOR Primary Care Pro vider Reason for Visit * Reason Comments Maternal Medicine Diabetes Encounter Details Date Type Department Care Team (Latest Contact Info) Description 09/20/2024 1:11 PM CDT - 09/20/2024 11:59 PM CDT Hospital Encounter [facility] [address] [facility] [place] [phone] Maryjane Ortega MD [address] [facility] [address] [place] [phone] Luana Plummer MD [address] [facility] [address] [place] [address] Discharge Disposition: Home or Self [...] and heating? Not hard at all 08/23/2024 [facility] [place] [facility] - Occupational Stress [...] things needed for daily living? No 08/23/2024 Margaret Depression Scale Answer Date Recorded Margaret Depression Scale Total 1 03/01/2024 The thought [...] on file documented as of this encounter Last Filed Vital Signs Vital Sign Reading Time Taken Comments Blood Pressure 131/87 09/20/2024 1:40 PM CDT Pulse 93 09/20/2024 1:40 PM CDT Temperature - - Respiratory Rate - - Oxygen Saturation - - Inhaled Oxygen Concentration - - Weight 113 kg (249 lb 3.2 oz) 09/20/2024 1:40 PM CDT Height - - Body Mass Index 42.78 06/08/2024 12:59 PM CORRECTIONAL COUNSELOR documented in this encounter Medications at Time of Discharge aspirin EC (Ecotrin) 81 MG tabletIndication s:Pre-existing type 2 diabetes mellitus during , antepartum ([facility]) Take 2 (two) tablets by mouth once daily 100 tablet 1 04/05/2024 blood glucose (OneTouch Verio) test stripIndications :Pre-existing type 2 diabetes mellitus during , antepartum ([facility]),Type 2 diabetes mellitus with stage 1 chronic kidney disease, with long-term current use of insulin ([facility]) To monitor blood glucose (sugar) 4x daily- fasting and 1 hour after meals 100 strip 5 03/01/2024 Blood Glucose Monitoring Suppl (OneTouch Verio) w/Device KITIndications:P re-existing type 2 diabetes mellitus during , antepartum ([facility]),Type 2 diabetes mellitus with stage 1 chronic kidney disease, with long-term current use of insulin ([facility]) Use 1 Each as directed 1 kit 03/01/2024 cephalexin (Keflex) 500 MG capsule Take 1 (one) capsule by mouth 2 times daily 14 capsule 08/31/2024 Clindamycin Phosphate (Clindamycin Phos, Once-Daily,) 1 % GEL APPLY A THIN LAYER TOPICALLY TO AFFECTED AREA TWICE DAILY Continuous Glucose Sensor (Dexcom G7 Sensor) MISCIndications: Pre-existing type 2 diabetes mellitus during , antepartum ([facility]) Use 1 Each Continuous for 10 days 3 Each 5 09/13/2024 escitalopram (Lexapro) 20 MG tablet Take 1 (one) tablet by mouth once daily fluconazole (Diflucan) 150 MG tabletIndication s:Vaginitis affecting in third trimester, antepartum ([facility]) Take 1 (one) tablet by mouth once daily Take second tablet if symptoms persist after 72 hours. 2 tablet 09/06/2024 fluticasone propionate (Flonase) 50 MCG/ACT nasal spray USE 1 SPRAY(S) IN EACH NOSTRIL ONCE DAILY Glucagon (Baqsimi One Pack) 3 MG/DOSE POWD [place] 1 Each into the nose as needed 1 Each 03/15/2024 hydrOXYzine HCl (Atarax) 25 MG tablet Take 1 (one) tablet by mouth 3 times daily insulin glargine (Lantus/Semglee) 100 units/mL penIndications:T ype 2 diabetes mellitus with hyperglycemia, unspecified whether therapy technician insulin use (HCC) Inject 24 units in the morning and 24 units at bedtime. Take dosages approximately 12 hours apart. Increase dose as directed due to increasing insulin requirements during . Max total daily dose = 50u 15 mL 5 09/06/2024 insulin lispro (HumaLOG;ADMelog ) 100 UNIT/ML penIndications:T ype 2 diabetes mellitus with hyperglycemia, unspecified whether halfway insulin use (HCC) Inject 18u before small meals (<30g), 20 units before medium meals (30-45g), and 22u before large meals (>60g). Inject 6u with snacks. Inject 0-15 minutes before meals. Increase dose as directed during . Max total daily dose = 100 units. 30 mL 5 08/23/2024 Insulin Pen Needle (Incisive SurgicalLite Pen [place]) 32G X 4 MM MISCIndications: Pre-existing type 2 diabetes mellitus during , antepartum ([facility]) Use 1 Each 5 times daily 150 Each 5 08/23/2024 Lancets (ONETOUCH DELICA PLUS 33G EXTRA FINE LANCET)Indicatio ns:Pre-existing type 2 diabetes mellitus during , antepartum ([facility]),Type 2 diabetes mellitus with stage 1 chronic kidney disease, with long-term current use of insulin ([facility]) To monitor blood glucose (sugar) [...] FOR DERMATITIS documented as of this encounter Progress Notes * Macy Barbour, PRISCILA/LULI - 09/20/2024 4:10 PM CDT Images from the original note were not included. Yasmeen Ny is a 33 year old 35w6d Estimated Date of Delivery: 10/19/24 with type 2 diabetes. 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 Recent Labs Component Name 08/23/24 1616 06/08/24 1359 03/01/24 1635 HGBA1C 5.3 5.1 5.4 EAG 105 100 108 No results for input(s): GESTDIABSCRN in the last 85755 hours. Recent Labs Component Name 09/20/24 1541 09/06/24 1445 08/30/24 1322 GLUCOSEUA Negative - Normal PROTEINUA - - Negative KETONEUA - - Negative - = values in this interval not displayed. Assessment: Date: 09/20/24 AC: 81% Wt: 43% ABHAY: lower limits of normal Current medication: Lantus 24u BID (pt taking 22u BID); Lispro 18u/20u/22u (small/medium/large)- typically taking 22u with meals; 6u with snacks Date last reviewed: 09/13/24 Monitoring and Glycemic Control: Patient shares Dexcom data through [employer]. She is marking very few meals and insulin doses. (See media tab for full reports) Diagnosis: some hypoglycemia evident after meals Dexcom [employer] Yasmeen Ny Date of : 1990 Generated at: Sep 20, 2024 4:15 PM CDT Reporting period: ThuSeptember 14, 2024 - ThuSep 20, 2024 Glucose Details Average glucose: 117 mg/dL GMI: N/A Standard deviation: 29 mg/dL Coefficient of Variation: 24.4% Time in Range Very High: 0% High: 19% In Range: 80% Low: 1% Very Low: <1% Target Range 65-140 mg/dL Sensor usage Days with data: 10/24 Time active: 94% Avg. calibrations per day: 0.0 Insulin (daily averages) Long-acting / Fast-acting ratio: 0% / 100% Long-acting / Fast-acting ratio: 0.0 units / 44.0 units Total daily dose: 44.0 units/day # Fast-acting doses/day: 2.0 doses/day Intervention: Reviewed with Drs. Bailey and Kavitha. Recommend to provide less insulin for basal. She is OK to stop with the small/medium/large dosing. She partially filled her Dexcom Rx (received 1 sensor) and the pharmacy should have the other 2 in stock at a later date. Insulin Breakfast Lunch Dinner HS Lantus 20u (was taking 22u) 20u (was taking 22u) Lispro 22u 20u 20u Plans to inject at 10am/10pm Provider gave pt insulin dose change sheet. Monitoring/Evaluation: RTC 2 weeks per provider/1 week blood glucose log review--> patient prefers MyChart message withinsulin adjustments Check in more frequently if patterns of hyper/hypoglycemia Call [facility] if noted concerns about blood sugars or movement documented in this encounter Plan of Treatment Upcoming Encounters Date Type Department Care Team (Late st Contact Info) Description 09/22/2024 7:30 AM CDT Appointment [facility] [address] [place] [id number] 09/26/2024 9:30 AM CDT Appointment [facility] [address] [place] [address] 09/26/2024 10:30 AM CDT Appointment [facility] [address] [place] [address] 09/26/2024 11:15 AM CDT Appointment [facility] [address] [place] [address] 09/27/2024 1:00 PM CDT Appointment [facility] [address] [address] 09/27/2024 2:15 PM CDT Appointment [facility] [address] [place] [address] 09/29/2024 1:00 PM CDT Appointment [facility] [address] [address] 10/03/2024 9:30 AM CDT Appointment [facility] [address] [address] 10/03/2024 10:30 AM CDT Appointment [facility] [address] [address] 10/06/2024 1:00 PM CDT Appointment [facility] [address] [address] Scheduled Orders Name Type Priority Associated Diagnoses Orde r Schedule CULTURE URINE Microbiology Routine Pre-existing type 2 diabetes mellitus during , antepartum (HCC) ONCE for 1 Occurrences starting 09/20/2024 until 09/20/2024 documented as of this encounter Visit Diagnoses Diagnosis Pre-existing type 2 diabetes mellitus during , antepartum (HCC)- Primary documented in this encounter Care Teams Inspector Floor Sub Assembly Relationship Specialty Start Date End Date Chuck Nelson APRN-EMILY [address] [phone] PCP - General Nurse Practitioner 08/25/22 documented as of this encounter
--- OUTSIDE RECORDS SUMMARY | 2024-09-21 09:19 | XMS_ITS | Encounter Summary ---
Author Organization [facility] Address [address] [place] [address] Care Team Providers Care Bell Cleaner Name Role Phone Chuck Nelson COMMERCIAL CREDIT LEAD-REVENUE SPECIALIST Primary Care Pro vider Reason for Visit * Reason Onset Date Comments MEDICATION REFILL 05/23/2024 Encounter Details Date Type Department Care Team (Late st Contact Info) Description 05/23/2024 Refill [facility] [address] [facility] [place] [phone] Luana Plummer MD [address] [facility] [address] [place] [address] MEDICATION REFILL Social History Tobacco [...] Not hard at all 02/24/2024 [facility] - Occupational Stress [...] things needed for daily living? No 02/24/2024 [place] Depression Scale Answer Date Recorded [place] Depression Scale Total 1 03/01/2024 The thought [...] any time in the past 12 m [facility], were you homeless or living in a snf (including now)? Yes 02/24/2024 Estimated Date of [...] Info) Description 09/22/2024 7:30 AM CDT Appointment [facility] MATERNAL/ EVALUATION UNIT [facility] [address] [place] [address] 09/26/2024 9:30 AM CDT Appointment [facility]/ EVALUATION UNIT [facility] [address] [place] [address] 09/26/2024 10:30 AM CDT Appointment [facility] MATERNAL/ EVALUATION UNIT [facility] [address] [place] [address] 09/26/2024 11:15 AM CDT Appointment [facility] [address] [place] [address] 09/27/2024 1:00 PM CDT Appointment [facility] [address] [place] [address] 09/27/2024 2:15 PM CDT Appointment [facility] [address] [place] [address] 09/29/2024 1:00 PM CDT Appointment [facility] [address] [place] [address] 10/03/2024 9:30 AM CDT Appointment [facility] [address] [place] [address] 10/03/2024 10:30 AM CDT Appointment [facility] [address] [place] [address] 10/06/2024 1:00 PM CDT Appointment [facility] [address] [place] [address] documented as of this encounter Visit Diagnoses Diagnosis Pre-existing type 2 diabetes mellitus during , antepartum (HCC) documented in this encounter Care Teams Bell Cleaner Relationship Specialty Start Date End Date Chuck Nelson APRN-EMILY [address] [place] [phone] PCP - General Nurse Practitioner 08/25/22 documented as of this encounter
--- OUTSIDE RECORDS SUMMARY | 2024-09-21 09:19 | XMS_ITS | Clinical Summary ---
Author Organization [facility] Address [address] [place] [address] Care Team Providers Care Associate Designer Name Role Phone Chuck Nelson WAX MOLDER-WELT ROUGHER Primary Care Pro vider Source Comments [facility],non-owned Affiliates and Associated Physician Practices is amultiple site organization consisting of ambulatory clinics and hospital sitesin [place], [place], [place] and [place]. This disclosure is being madepursuant to the Care Everywhere program and may not contain all information available regarding this patient. Last updated 18.[facility] Nu-B-2B Allergies Active Allergy Reactions Criticality Noted Date [...] disease, with long-term current use of insulin ([facility]) Use 1 Each as directed 1 kit 024 Active blood glucose (OneTouch Verio) test stripIndicatio ns:Pre-existin g type 2 diabetes mellitus during , antepartum (HCC),Type 2 diabetes mellitus with stage 1 chronic kidney disease, with long-term current use of insulin ([facility]) To monitor blood glucose (sugar) 4x daily- fasting and 1 hour after meals 100 strip 5 024 Active Lancets (ONETOUCH DELICA PLUS 33G EXTRA FINE LANCET)Indicat ions:Pre-exist ing type 2 diabetes mellitus during , antepartum ([facility]),Type 2 diabetes mellitus with stage 1 chronic kidney disease, with long-term current use of insulin ([facility]) To monitor blood glucose (sugar) 4x daily- fasting and 1 hour after meals 100 Each 5 024 Active Glucagon (Baqsimi One Pack) 3 MG/DOSE POWD [place] 1 Each into the nose as needed 1 Each 024 Active Additional Information Patient not taking.Reason: Other, Reported on 09/06/2024 triamcinolone acetonide (Kenalog) 0.1 % cream APPLY [...] type 2 diabetes mellitus during , antepartum ([facility]) Take 2 (two) tablets by mouth once daily 100 tablet 1 024 Active Vit-Fe Fumarate-FA (M-Raz Plus) 27-1 MG TABS 025 Active magnesium oxide (Mag-Ox) 400 MG tablet Take 1 (one) tablet by mouth once daily 30 tablet 2 025 Active Additional Information Patient not taking.Reason: Patient adjusted, Informant: Patient, Reported on 09/20/2024 Insulin Pen Needle (TechLite Pen [place]) 32G X 4 MM MISCIndication s:Pre-existing type 2 diabetes mellitus during , antepartum ([facility]) Use 1 Each 5 times daily 150 Each 5 025 Active insulin lispro (HumaLOG;ADMel og) 100 UNIT/ML penIndications :Type 2 diabetes mellitus with hyperglycemia, unspecified whether adjunct faculty for 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 30 capsule 2 025 Active fluconazole (Diflucan) 150 MG tabletIndicati ons:Vaginitis affecting in third trimester, antepartum ([facility]) Take 1 (one) tablet by mouth once daily Take second tablet if symptoms persist after 72 hours. 2 tablet 025 Active insulin glargine (Lantus/Semgle e) 100 units/mL penIndications :Type 2 diabetes mellitus with hyperglycemia, unspecified whether fci insulin use (HCC) Inject 24 units in the morning and 24 units at bedtime. Take dosages approximately 12 hours apart. Increase dose as directed due to increasing insulin requirements during . Max total daily dose = 50u 15 mL 5 025 Active Continuous Glucose Sensor (Dexcom G7 Sensor) MISCIndication s:Pre-existing type 2 diabetes mellitus during , antepartum ([facility]) Use 1 Each Continuous for 10 days 3 Each 5 025 2025 Active Clindamycin Phosphate (Clindamycin Phos, Once-Daily,) 1 % GEL APPLY A THIN LAYER TOPICALLY TO AFFECTED AREA TWICE DAILY Active Continuous Glucose Sensor (Dexcom G7 Sensor) MISCIndication s:Pre-existing type 2 diabetes mellitus during , antepartum ([facility]) Use 1 Each Continuous for 10 days 3 Each 5 024 2024 Discontinued(R eorder) Insulin Pen Needle (RocketBuxLiG.I. Java Pen [place]) 32G X 4 MM MISCIndication s:Pre-existing type 2 diabetes mellitus during , antepartum ([facility]) Use 1 Each 5 times daily 150 Each 5 024 2024 Discontinued(R eorder) insulin lispro (HumaLOG;ADMel og) 100 UNIT/ML penIndications :Type 2 diabetes mellitus with hyperglycemia, unspecified whether fci insulin use (HCC) Inject 10u before small [...] 2 diabetes mellitus with hyperglycemia, unspecified whether fci insulin use (HCC) Inject 22 units in the morning and 22 units at bedtime. Take dosages approximately 12 hours apart. Increase dose as directed due to increasing insulin requirements during . Max total daily dose = 50u 15 mL 5 025 2024 Discontinued Continuous Glucose Sensor (Dexcom G7 Sensor) MISCIndication s:Pre-existing type 2 diabetes mellitus during , antepartum (HCC) Use 1 Each Continuous for 10 days 3 Each 5 025 2024 Discontinued(R eorder) Active Problems Patient Care Coordination No te Formatting of this note migh t be different from the original. [employer] form completed. Diapers given. 07/26/2024, [...] 348K. Assessment & Plan (05/16/2020 12:49 PM HOT DOG VENDER): Resolution of headaches continues. Preeclampsia work up [...] triage. Assessment & Plan (05/09/2020 2:03 PM HOT DOG VENDER): Resolution of headaches this week. Preeclampsia work up negative on 04/30: PCR: 0.18, AST: 25, ALT: 35, creatinine: 0.50, platelets: 348K. Normotensive today. Asymptomatic for preeclampsia. MFM Plan: 1. Encouraged to continue to monitor for preeclampsia symptoms and if headache not relieved with interventions, to always alert primary OB or seek OB evaluation at OB triage. 2. Riboflavin instructions given to poultry picker OTC.. Assessment & Plan (05/02/2020 11:59 AM HOT DOG VENDER): Noticing headaches first thing in the morning [...] 5.8 Assessment & Plan (05/23/2020 12:34 PM HOT DOG VENDER): 24 hour urine/CMP: 04/30: PCR: 0.18, AST: [...] office who agreed. Recommendation given to primary Activities Volunteer and patient sent to [facility] today [...] . Assessment & Plan (05/16/2020 1:23 PM HOT DOG VENDER): 24 hour urine/CMP: 04/30: PCR: 0.18, AST: [...] delivery planning. 9. Sent to L/D at [place] for continuous monitoring. Report called to both L/D and primary Activities Volunteer's office regarding office visit today and decreased [...] reduction. Assessment & Plan (05/09/2020 12:01 PM HOT DOG VENDER): 24 hour urine/CMP: 04/30: PCR: 0.18, AST: 25, ALT: 35, creatinine: 0.50. hemoglobin A1c: 5.8%, 04/10; Previous A1c: 6% at 12 weeks. Reports normal dilated eye exam, records requested multiple times and never received. echo: completed and appropriate. Serial [id number]: EFW: 87% and 2028grams, AC: 95%. Anatomy [...] monitor. Assessment & Plan (05/02/2020 12:25 PM HOT DOG VENDER): 24 hour urine/CMP: 04/30: PCR: 0.18, AST: [...] today. Assessment & Plan (04/25/2020 5:32 PM HOT DOG VENDER): 24 hour urine/CMP: pending hemoglobin A1c: 5.8%, [...] she is scheduled to do with primary Activities Volunteer again this Thursday. 8. Reviewed importance of [...] lab. Assessment & Plan (04/11/2020 11:49 AM HOT DOG VENDER): 24 hour urine/CMP: pending, has to re-do [...] she is scheduled to do with primary Activities Volunteer. 9. Reviewed importance of twice daily kick [...] exam. Assessment & Plan (03/28/2020 12:49 PM HOT DOG VENDER): 24 hour urine/CMP/hemoglobin A1c: plans to do [...] hypoglycemic. 7. Reviewed after hours [facility] triage number to call with any [...] Overview (04/05/2024): Insulin resistance;Recorded Elsewhere: No Location: [facility] Source: EHR Chronic: N Practice ID: [id number] [...] Encounters Date Type Department Care Team Description 09/21/2024 Telephone [facility] MAT[facility]NAL/ EVALUATION UNIT [address] [place] [address] Yani Mares Appointment 09/20/2024 1:11 PM CDT - 09/20/2024 11:59 PM CDT Hospital Encounter [facility]/ [facility]UATION UNIT [address] [place] [address] Maryjane Ortega MD Mostello, Dorothea Jean, MD Discharge Disposition: Home or Self Care 09/20/2024 1:11 PM CDT - 09/20/2024 11:59 PM CDT Hospital Encounter [facility]/ EVALUATION UNIT [address] [place] [address] Luana Plummer MD Discharge Disposition: Home or Self Care 09/20/2024 1:11 PM CDT - 09/20/2024 11:59 PM CDT Hospital Encounter [facility]/ EVALUATION UNIT [address] [place] [address] Maryjane Ortega MD Discharge Disposition: Home or Self Care 09/20/2024 1:00 PM CDT - 09/20/2024 1:10 PM CDT Hospital Encounter [facility]/ EVALUATION UNIT [address] [place] [address] Maryjane Ortega MD Discharge Disposition: Home or Self Care 09/20/2024 Travel 09/13/2024 1:32 PM CDT - 09/13/2024 11:59 PM CDT Hospital Encounter [facility]/ EVALUATION UNIT [address] [place] [address] Bird Stevenson MD Discharge Disposition: Home or Self Care 09/13/2024 1:30 PM CDT - 09/13/2024 1:31 PM CDT Hospital Encounter [facility]/ EV[facility]UATION UNIT [address] [place] [address] Bird Stevenson MD Discharge Disposition: Home or Self Care 09/13/2024 Travel 09/07/2024 Orders Only [facility]/ [facility]UATION UNIT [address] [place] [address] Qiana Mcfarlane, RD/LD Pre-existing type 2 diabetes mellitus during , antepartum (HCC) 09/06/2024 1:06 PM CDT - 09/06/2024 11:59 PM CDT Hospital Encounter [facility]/ EVALUATION UNIT [address] [place] [address] Eduar Hernandez MD Discharge Disposition: Home or Self Care 09/06/2024 1:06 PM CDT - 09/06/2024 11:59 PM CDT Hospital Encounter [facility]/ EV[facility]UATION UNIT [address] [place] [address] Eduar Hernandez MD Discharge Disposition: Home or Self Care 09/06/2024 1:05 PM CDT Hospital Encounter [facility]/ EV[facility]UATION UNIT [address] [place] [address] Livan Anguiano DO Discharge Disposition: Home or Self Care 09/06/2024 1:00 PM CDT - 09/06/2024 1:04 PM CDT Hospital Encounter [facility]/ EVALUATION UNIT [address] [place] [address] Livan Anguiano DO Discharge Disposition: Home or Self Care 09/06/2024 Refill [facility]ERNAL/ EVALUATION UNIT [address] [place] [address] Luana Plummer MD Refill Request 09/06/2024 Travel 08/31/2024 Orders Only [facility]/ [facility]ATION UNIT [address] [place] [address] Komal Ray MD 08/31/2024 Telephone [facility]/ [facility]ATION UNIT [address] [place] [address] Cara Dent 08/30/2024 1:16 PM CDT - 08/30/2024 11:59 PM CDT Hospital Encounter [facility] MAT[facility]/ EVALUATION UNIT [address] [place] [address] Bird Stevenson MD Discharge Disposition: Home or Self Care 08/30/2024 1:00 PM CDT Hospital Encounter [facility] MAT[facility]/ EVALUATION UNIT [address] [place] [address] Bird Stevenson MD Discharge Disposition: Home or Self Care 08/30/2024 1:00 PM CDT Hospital Encounter [facility] MAT[facility]/ EVALUATION UNIT [address] [place] [address] Bird Stevenson MD Discharge Disposition: Home or Self Care 08/30/2024 Travel 08/29/2024 Orders Only [facility]/ EV[facility]UATION UNIT [address] [place] [address] Elaine Sorenson RN Dysuria during in third trimester (HCC) 08/23/2024 1:24 PM CDT - 08/23/2024 11:59 PM CDT Hospital Encounter [facility]/ EV[facility]UATION UNIT [address] [place] [id number] Livan Anguiano DO Gross, Gilad A, MD Discharge Disposition: Home or Self Care 08/23/2024 1:24 PM CDT - 08/23/2024 11:59 PM CDT Hospital Encounter [facility]/ EVALUATION UNIT [address] [place] [address] Livan Anguiano DO Gross, Gilad A, MD Discharge Disposition: Home or Self Care 08/23/2024 1:24 PM CDT - 08/23/2024 11:59 PM CDT Hospital Encounter [facility] MAT[facility]/ EV[facility]UATION UNIT [address] [place] [address] Livan Anguiano DO TOE STAPLER Discharge Disposition: Home or Self Care 08/23/2024 1:15 PM CDT - 08/23/2024 1:23 PM CDT Hospital Encounter [facility]/ EVALUATION UNIT [address] [place] [address] Livan Anguiano DO Discharge Disposition: Home or Self Care 08/23/2024 Travel 08/03/2024 12:56 PM CDT - 08/03/2024 11:59 PM CDT Hospital Encounter [facility] MAT[facility]/ EVALUATION UNIT [address] [place] [address] Dave Sevilla MD Discharge Disposition: Home or Self Care 08/03/2024 12:56 PM CDT - 08/03/2024 11:59 PM CDT Hospital Encounter [facility] MAT[facility]/ EVALUATION UNIT [address] [place] [address] Dave Sevilla MD Discharge Disposition: Home or Self Care 08/03/2024 Travel 08/01/2024 Orders Only [facility] MAT[facility]/ EVALUATION UNIT [address] [place] [address] Elaine Sorenson RN 07/29/2024 Telephone [facility]/ EVALUATION UNIT [address] [place] [address] Cara Dent Scheduling 07/26/2024 1:58 PM CDT - 07/26/2024 11:59 PM CDT Hospital Encounter [facility]/ EV[facility]UATION UNIT [address] [place] [address] Eduar Hernandez MD Mostello, Dorothea Jean, MD Discharge Disposition: Home or Self Care 07/26/2024 1:58 PM CDT - 07/26/2024 11:59 PM CDT Hospital Encounter [facility]/ [facility]ATION UNIT [address] [place] [address] Eduar Hernandez MD Mostello, Dorothea Jean, MD Discharge Disposition: Home or Self Care 07/26/2024 1:58 PM CDT - 07/26/2024 11:59 PM CDT Hospital Encounter [facility]/ EV[facility]ATION UNIT [address] [place] [address] Eduar Hernandez MD Discharge Disposition: Home or Self Care 07/26/2024 Travel 07/20/2024 1:42 PM CDT - 07/20/2024 11:59 PM CDT Hospital Encounter [facility] Pediatrics - Cardiology [facility] [place] [address] Moe Blackwell MD Discharge Disposition: Home or Self Care 07/20/2024 1:10 PM CDT - 07/20/2024 1:41 PM CDT Hospital Encounter [facility] Pediatrics - Cardiology [address] [place] [id number] Sandy Perez MD Discharge Disposition: Home or Self Care 07/12/2024 1:53 PM CDT - 07/12/2024 11:59 PM CDT Hospital Encounter [facility]/ EV[facility]UATION UNIT [address] [place] [address] Luana Plummer MD Discharge Disposition: Home or Self Care 07/12/2024 1:53 PM CDT - 07/12/2024 11:59 PM CDT Hospital Encounter [facility] MAT[facility]/ EVALUATION UNIT [address] [place] [address] Luana Plummer MD Discharge Disposition: Home or Self Care 07/12/2024 Travel 06/28/2024 2:14 PM CDT - 06/28/2024 11:59 PM CDT Hospital Encounter [facility] MAT[facility]/ EV[facility]UATION UNIT [address] [place] [address] Eduar Hernandez MD Chavan, Niraj R, MD Discharge Disposition: Home or Self Care 06/28/2024 2:14 PM CDT - 06/28/2024 11:59 PM CDT Hospital Encounter [facility] MAT[facility]/ EVALUATION UNIT [address] [place] [address] Eduar Hernandez MD Chavan, Niraj R, MD Discharge Disposition: Home or Self Care 06/28/2024 2:14 PM CDT Hospital Encounter [facility] MAT[facility]/ EV[facility]UATION UNIT [address] [place] [address] Eduar Hernandez MD Discharge Disposition: Home or Self Care 06/28/2024 Travel from Last 3 Months Immunizations Immunization Administration Dates Next Due Covid Pfizer primary Monoval ent 12+ yr 0.3ml 06/05/2021,05/15/2021 CovMirametrix primary monoval ent 12+ yr 0.3mL Purple [...] and heating? Not hard at all 08/23/2024 [facility] of Occupat ional Health - Occupational Stress [...] things needed for daily living? No 08/23/2024 Plato Depression Scale Answer Date Recorded Plato Depression Scale Total 1 03/01/2024 The thought [...] in the past 12 m [facility], were you homeless or living in a assisted (including now)? No 08/23/2024 Estimated Date of [...] Pulse 93 09/20/2024 1:40 PM CDT Temperature 36.6 C (97.8 F) 02/28/2024 2:00 PM HOT DOG VENDER Respiratory Rate 16 07/12/2024 3:12 PM CDT Oxygen Saturation 98% 02/28/2024 5:00 PM HOT DOG VENDER Inhaled Oxygen Concentration - - Weight 113 kg (249 lb 3.2 oz) 09/20/2024 1:40 PM CDT Height 162.6 cm (5' 4) 06/08/2024 12:59 PM HOT DOG VENDER Body Mass Index 42.78 06/08/2024 12:59 PM HOT DOG VENDER Plan of Treatment Upcoming Encounters Date Type Department Care Team (Late st Contact Info) Description 09/22/2024 7:30 AM CDT Appointment [facility]/ [facility]UATION UNIT [address] [place] [address] 09/26/2024 9:30 AM CDT Appointment [facility] [address] [place] [address] 09/26/2024 10:30 AM CDT Appointment [facility] [address] [address] 09/26/2024 11:15 AM CDT Appointment [facility] [address] [place] [address] 09/27/2024 1:00 PM CDT Appointment [facility] [address] [address] 09/27/2024 2:15 PM CDT Appointment [facility] [address] [address] 09/29/2024 1:00 PM CDT Appointment [facility] [address] [address] 10/03/2024 9:30 AM CDT Appointment [facility] [address] [address] 10/03/2024 10:30 AM CDT Appointment [facility] [address] [address] 10/06/2024 1:00 PM CDT Appointment [facility] [address] [place] [address] Health Maintenance Due Date Last Done Comments [...] 03/01/2024 OB-ONE HOUR GLUCOSE 07/13/2024 DIABETES-HGB A1C 02/23/2025 08/23/2024, , 03/01/2024, Additional history exists DIABETES-SERUM CREATININE 02/27/2025 02/28/2024 PAP with HPV 03/01/2029 03/01/2024 DTAP/TDAP/TD VACCINES (4 - Td or Tdap) 08/03/2034 08/03/2024, 04/16/2020, 01/02/2015 ZOSTER VACCINE (1 of 2) 12/26/2039 HPV VACCINE Completed 09/03/2023, 05/2023, 03/09/2023 HEPATITIS C SCREENING Completed 03/01/2024 INFLUENZA VACCINE Completed 03/01/2024, , 01/30/2022, Additional history exists HIV SCREENING Completed 07/28/2024, 03/01/2024 OB-TDAP CURRENT Completed 2024, 04/16/2020, 01/02/2015 OB-GROUP B STREP SCREEN Completed 09/15/2024 HIB VACCINE Aged Out No longer eligi [...] BEAKER INTERFACE Routine 09/20/2024 3:41 PM CDT BIOPHYSICAL PROFILE W NST Routine 09/20/2024 2:59 PM CDT Pre-existing type 2 diabetes mellitus during , antepartum (HCC) BIOPHYSICAL PROFILE W NST Routine 09/13/2024 1:37 PM CDT Pre-existing type 2 diabetes mellitus during , antepartum (HCC) CULTURE URINE Routine 09/06/2024 3:18 PM CDT Urinary tract infection in mother during third trimester of (HCC) GLUCOSE - POINT OF CARE Routine 09/06/2024 2:57 PM CDT URINALYSIS - POCT (IP) BEAKER INTERFACE Routine 09/06/2024 2:45 PM CDT BIOPHYSICAL PROFILE W NST Routine 09/06/2024 1:57 PM CDT Pre-existing type 2 diabetes mellitus during , antepartum (HCC) BIOPHYSICAL PROFILE W NST Routine 08/30/2024 2:06 PM CDT Pre-existing type 2 diabetes mellitus during , antepartum (HCC) URINALYSIS REFLEX MICROSCOPIC REFLEX CULTURE Routine 08/30/2024 1:22 PM CDT Dysuria during in third trimester (HCC) CULTURE URINE Routine 08/30/2024 1:22 PM CDT Dysuria during in third trimester (HCC) HEMOGLOBIN A1C Routine 08/23/2024 4:16 PM CDT Pre-existing type 2 diabetes mellitus during , antepartum (HCC) URINALYSIS - POCT (IP) BEAKER INTERFACE Routine 08/23/2024 3:33 PM CDT BIOPHYSICAL PROFILE W NST Routine 08/23/2024 2:30 PM CDT Pre-existing type 2 diabetes mellitus during , antepartum (HCC) URINALYSIS - POCT (IP) [...] COMPLETE Routine 06/28/2024 2 :29 PM CDT PROTEIN CREATININE RATIO URINE RANDOM PNL Routine 03/01/2024 4:35 PM HOT DOG VENDER Pre-existing type 2 diabetes mellitus during , antepartum Supervision of high-risk of young primigravida HEPATITIS C ANTIBODY Routine 03/01/2024 4:35 PM HOT DOG VENDER Pre-existing type 2 diabetes mellitus during , antepartum Supervision of high-risk of young primigravida PAP IG LB+HPV APTIMA Routine 03/01/2024 4:35 PM HOT DOG VENDER Supervision of high-risk of young primigravida HIV-1 HIV-2 ANTIBODY + HIV P24 AG PANEL Routine 03/01/2024 4:35 PM HOT DOG VENDER Pre-existing type 2 diabetes mellitus during , antepartum Supervision of high-risk of young primigravida COMPREHENSIVE METABOLIC PANEL STAT 02/28/2024 2:11 PM HOT DOG VENDER from Last 3 Months or Most Recently Relevant to Health Maintenance Results * (ABNORMAL) URINALYSIS - POCT (IP) BEAKER INTERFACE (09/20/2024 3:41 PM CDT) Only the most recent of7 resultswithin the time period is included. Color UA POCT Yellow Straw, Yellow, Dark Yellow, Light Yellow 09/20/2024 4:10 PM CDT [facility] Clarity UA POCT Clear Clear 4:10 PM CDT [facility] Specific [place] UA POCT >=1.030 1.005 - 1.030 09/20/2024 4:10 PM CDT [facility] pH UA POCT 6.0 5.0 - 8.0 pH 09/20/2024 4:10 PM CDT [facility] Protein UA POCT 3+(A) Negative 5 4:10 PM CDT [facility] Blood UA POCT Negative Negative 09/20/2024 4:10 PM CDT [facility] Leukocyte UA POCT Negative Negative 09/20/2024 4:10 PM CDT [facility] Nitrite UA POCT Negative Negative 4:10 PM CDT [facility] Glucose UA POCT Negative Negative 4:10 PM CDT [facility] Ketone UA POCT Negative Negative 09/20/2024 4:10 PM CDT [facility] Bilirubin UA POCT Negative Negative 09/20/2024 4:10 PM CDT [facility] Urobilinogen UA POCT 0.2 0.1 - 1.0 EU/dL 09/20/2024 4:10 PM CDT [facility] Urine URINE / Unknown 09/20/2024 3 :41 PM CDT 09/20/2024 4:10 PM CDT us Luana Plummer MD LAB - POINT OF CARE OR DERABLES Final Result [facility] [address] [place] [address] * BIOPHYSICAL PROFILE W NST (09/20/2024 2:59 PM CDT) Only the most recent of5 resultswithin the time period is included. Linked Results Indication ======== Diabetes mellitus, type II (on insulin) Obesity, Class II Normal echo 07/20/24 History ====== OB History 2. Para 1 [id number] Lab Tests Test Date Result NIPT 04/05/2024 [...] 6 lb 0 oz EFW by [place] ([id number]) appropriate Growth Overview Exam date [place] BPD [...] maternal abnormalities Follow-up ======== Patient scheduled for [facility] appt immediately following today's scan, notified provider of borderline oligohydramnios. Recommend r/o ROM. Recommend US for ABHAY check in 3 days if exam negative for ROM. Continue 2x/week testing (2x/week NST, weekly BPP), repeat UA Doppler studies in 1 week. Repeat growth in 3 weeks. Coding ====== Procedures 98346: [place] [address]: Biophysical Profile W NST 61144: Umbilical Doppler [facility] [employer] PACS Anatomical Region Laterality Modality Other 09/20/2024 2:59 PM CDT us Eduar Hernandez MD [facility] ORDERABLES Edited Result - Final * CULTURE URINE (09/06/2024 3:18 PM CDT) Only the most recent of3 resultswithin the time period is included. Culture Urine 10,000-50,000 CFU/mL urogenital luis SHITAL 09/07/2024 10:44 PM CDT [facility] MICROBIOLOGY Urine URINE SPECIMEN OBTAINED BY CLEAN CATCH PROCEDURE / Unknown Collection / Unknown 09/06/2024 3:18 PM CDT 09/06/2024 3:40 PM CDT Vianca Bailey MD LAB - MICROBIOLOGY TASHA FORRESTER Final Result Performing Organization Address [place] [facility]/ZIP Co de Phone Number [facility] MICROBIOLOGY [address] [place] [address], [facility] [phone] * (ABNORMAL) GLUCOSE - POINT OF CARE (09/06/2024 2:57 PM CDT) Glucose WB/POC 67(L) 70 - 99 mg/dL 09/06/2024 3:05 PM CDT [facility] Specimen Type Arterial/C apillary 09/06/2024 3:05 PM CDT [facility] Blood BLOOD SPECIMEN / Unknown 09/06/2024 2:57 PM CDT 09/06/2024 3:05 PM CDT Livan Anguiano DO LAB - POINT OF CARE ORDERABLES Final Result Performing Organization Address [facility]/ZIP Co de Phone Number [facility] [address] [place] [address] * (ABNORMAL) URINALYSIS REFLEX MICROSCOPIC REFLEX CULTURE (08/30/2024 1:22 PM CDT) Color UA Yellow Yellow, Straw 08/30/2024 2:31 PM CDT [facility] Clarity UA Clear Clear 08/30/2024 2:31 PM CDT [facility] Glucose UA Normal Normal 08/30/2024 2:31 PM CDT [facility] Bilirubin UA Negative Negative 08/30/2024 2:31 PM CDT [facility] Ketone UA Negative Negative 08/30/2024 2:31 PM CDT [facility] Specific [place] UA <1.005(L) 1.005 - 1.030 08/30/2024 2:31 PM CDT [facility] Blood UA Negative Negative 08/30/2024 2:31 PM CDT [facility] pH UA 6.5 5.0 - 8.0 pH 08/30/2024 2:31 PM CDT [facility] Protein UA Negative Negative 08/30/2024 2:31 PM CDT [facility] Urobilinogen UA Normal Normal mg/dL 08/30/2024 2:31 PM CDT [facility] Nitrite UA Negative Negative 08/30/2024 2:31 PM CDT [facility] Leukocyte UA 25 MIA/uL(A) Negative 08/30/2024 2:31 PM CDT [facility] RBC UA 0-2 0 - 5 # /hpf 08/30/2024 2:31 PM CDT [facility] WBC UA 0-5 0 - 5 # /hpf 08/30/2024 2:31 PM CDT [facility] Bacteria UA Trace(A) None Seen 08/30/2024 2:31 PM CDT [facility] Squamous Epithelial Cells 0-2 0 - 5 /hpf 08/30/2024 2:31 PM CDT [facility] Mucus UA 1+ /LPF 08/30/2024 2:31 PM CDT [facility] Reflex Status Culture to follow 08/30/2024 2:31 PM CDT [facility] Urine URINE SPECIMEN OBTAINED BY CLEAN CATCH PROCEDURE / Unknown Collection / Unknown 08/30/2024 1:22 PM CDT 08/30/2024 2:22 PM CDT Narrative [facility] - 08/30/2024 2:31 PM CDT us Bel Gibson MD LAB - URINALYSIS ORDERABLES Wilma l Result Performing Organization Address City/State/[facility] Co de Phone Number [facility] [address] [place] [address] * HEMOGLOBIN A1C (08/23/2024 4:16 PM CDT) Hemoglobin A1c 5.3 <5.7 % 08/23/2024 5:15 PM CDT [facility] Estimated Average Glucose 105 mg/dL 08/23/2024 5:15 PM CDT [facility] Blood BLOOD SPECIMEN / Unknown Venipuncture / Unknown 08/23/2024 4:16 PM CDT 08/23/2024 4:43 PM CDT Narrative [facility] - 08/23/2024 5:15 PM CDT HbA1c Interpretation: Normal: < 5.7% Pre-diabetes: 5.7-6.4% [...] National Glycohemoglobin Standardization Program (NGSP) certified method. Lino Lombardo MD LAB - CHEMISTRY ORDERAB LES Final Result [facility] [address] [phone] * SONOGRAM - COMPLETE (07/26/2024 2:48 PM CDT) Only the most recent of2 resultswithin the time period is included. Linked Results Indication ======== Diabetes mellitus, type II Obesity, Class II Normal echo 07/20/24 History ====== OB History 2. Para 1 [id number] Lab Tests Test Date Result NIPT 04/05/2024 [...] 2 lb 9 oz EFW by Hadlock ([id number]) appropriate Growth Overview Exam date [place] BPD [...] begin twice weekly testing. Coding ====== Procedures 75621: US Preg Uterus Follow Up Allihub PACS Anatomical Region Laterality Modality Other 07/26/2024 2:48 PM CDT us Eduar Hernandez MD [facility] ORDERABLES Edited Result - Final * [...] 07/20/2024 Exam Date/Time: 07/20/2024 1:47 PM Site: [facility] Current Location: [facility] EStaffOrdering Provider: Moe Blackwell Interpreting Physician: Sandy Perez MD Eeg Technologist: Aayush Rogers [facility] - FE Study Info Procedure: ECHO COMPLETE CG Indications: [...] 07/20/2024 Exam Date/Time: 07/20/2024 1:47 PM Site: [facility] Current Location: [facility] EStaffOrdering Provider: Moe Blackwell Interpreting Physician: Sandy Perez MD Eeg Technologist: Aayush Rogers [facility] Study Info Procedure: ECHO COMPLETE Indications: O09.90 [...] 07/20/2024 05:31 PM Moe Blackwell MD ECHO CUPID Final Result * (ABNORMAL) WET PREP SMEAR - POINT [...] Lombardo MD LAB - POINT OF CARE CINDY SAMANIEGO Final Result [facility] PO[facility] TEST[facility] [address] [phone] * TRICHOMONAS VAGINALIS COLLINS (06/28/2024 4:15 PM CDT) Trichomonas by COLLINS NEGATIVE NEGATIVE 06/29/2024 1:38 PM CDT [facility] MICROBIOLOG[facility] Microbiology (Endocervix - Swab) Collection / Unknown 06/28/2024 4:15 PM CDT 06/28/2024 4:22 PM CDT Lino Lombardo MD LAB - MICROBIOLOGY TASHA FORRESTER Final Result [facility] MICRO[facility]OLOG[facility] [address] [place] [address], [facility] [phone] * CHLAMYDIA AND N. GONORRHOEAE COLLINS (06/28/2024 4:15 PM CDT) Chlamydia by COLLINS NEGATIVE NEGATIVE 06/29/2024 1:38 PM CDT [facility] MICRO[facility]OLOG[facility] Neisseria gonorrhoeae COLLINS NEGATIVE NEGATIVE 06/29/2024 1:38 PM CDT [facility] MICROBIOLOGY Microbiology (Endocervix - Swab) Collection / Unknown 06/28/2024 4:15 PM CDT 06/28/2024 4:22 PM CDT Lino Lombardo MD LAB - MICROBIOLOGY TASHA FORRESTER Final Result Performing Organization Address [facility] Co de Phone Number [facility] MICROBIOLOGY [address] [place] [address], [facility] [phone] * PAP IG LB+HPV APTIMA (03/01/2024 4:35 PM HOT DOG VENDER) Diagnosis Comment 03/09/2024 5:09 PM HOT DOG VENDER [facility] ([facility]) Comment:NEGATIVE FOR INTRAEP ITHELIAL LESION OR MALIGNANCY. Specimen Adequacy Comment 5:09 PM HOT DOG VENDER [facility] ([facility]) Comment:Satisfactory for loida luation. No endocervical component is identified. Performed by Comment 03/09/2024 5:09 PM HOT DOG VENDER [facility] ([facility]) Comment:Bharti Ocampo, Cytot echnologist (ASCP) Comment . 03/09/2024 5:09 PM HOT DOG VENDER [facility] ([facility]) Note Comment 03/09/2024 5:09 PM HOT DOG VENDER [facility] ([facility]) Comment: The Pap smear is a screening test designed to aid in the detection of premalignant and malignant conditions of the uterine cervix. It is not a diagnostic procedure and should not be used as the sole means of detecting cervical cancer. Both false-positive and false-negative reports do occur. IGLBP CPT Code Automation Comment 03/09/2024 5:09 PM HOT DOG VENDER [facility] ([facility]) Comment: This liquid based ThinPrep(R) pap test was screened with the use of an image guided system. Human papillomavirus Aptima Negative Negative 03/09/2024 5:09 PM HOT DOG VENDER [facility] ([facility]) Comment: This nucleic acid amplification test detects fourteen high-risk HPV types (16,18,31,33,35,39,45,51,52,56,58,59,66,68) without differentiation. Pathology/Cytolo gy PART OF UTERINE CERVIX / Unknown Collection / Unknown 03/01/2024 4:35 PM HOT DOG VENDER 03/01/2024 4:54 PM HOT DOG VENDER Narrative [facility] ([facility]) - 03/09/2024 5:09 PM HOT DOG VENDER Performed at: - [address] [id number] Side Laster: Kaylee Torres MD, Phone: [phone] Performed at: - [address] [id number] Side Laster: Kaylee Torres MD, Phone: [phone] Specimen Comment: Source.............Cervix Specimen Comment: LMP / Prev Treat...[place] / BX Specimen Comment: No. of containers..01 ThinPrep Vial Lion oLmbardo MD LAB - PATHOLOGY/CYTOLOG Y ORDERABLES Final Result [facility] ([facility]) [address] [place] [address] * HIV-1 HIV-2 ANTIBODY + HIV P24 AG PANEL (03/01/2024 4:35 PM HOT DOG VENDER) HIV1/2 Ab + P24 Ag Non Reactive Non Reactive 03/01/2024 5:51 PM HOT DOG VENDER [facility] Blood BLOOD SPECIMEN / Unknown Venipuncture / Unknown 03/01/2024 4:35 PM HOT DOG VENDER 03/01/2024 4:53 PM HOT DOG VENDER Narrative [facility] - 03/01/2024 5:51 PM HOT DOG VENDER No Laboratory evidence of HIV infection. Lino Lombardo MD LAB - CHEMISTRY ORDERAB LES Final Result Performing Organization Address [facility] Co de Phone Number [facility] [address] [place] [phone] * (ABNORMAL) PROTEIN CREATININE RATIO URINE RANDOM PNL (03/01/2024 4:35 PM HOT DOG VENDER) [facility] Protein Urine 13.7(H) <11.9 mg/dL 03/01/2024 5:36 PM HOT DOG VENDER [facility] Creatinine Urine 192.10 mg/dL 03/01/2024 5:36 PM HOT DOG VENDER [facility] Protein/Creatin ine Ratio Urine 0.07 03/01/2024 5:36 PM HOT DOG VENDER [facility] Urine URINE SPECIMEN OBTAINED BY CLEAN CATCH PROCEDURE / Unknown Collection / Unknown 03/01/2024 4:35 PM HOT DOG VENDER 03/01/2024 4:54 PM HOT DOG VENDER Lino Lombardo MD LAB - URINE CHEMISTRY O RDERABLES Final Result Performing Organization Address [facility] de Phone Number [facility] [address] [place], [place] [phone] * HEPATITIS C ANTIBODY (03/01/2024 4:35 PM HOT DOG VENDER) [facility] HCV Antibody Screen Non Reactive Non Reactive 03/01/2024 5:51 PM HOT DOG VENDER [facility] Blood BLOOD SPECIMEN / Unknown Venipuncture / Unknown 03/01/2024 4:35 PM HOT DOG VENDER 03/01/2024 4:53 PM HOT DOG VENDER Narrative [facility] - 03/01/2024 5:51 PM HOT DOG VENDER Non Reactive - Antibodies to Hepatitis C virus (HCV) were not detected, result does not exclude early acute HCV infection. Lino Lombardo MD LAB - CHEMISTRY ORDERAB LES Final Result Performing Organization Address [facility] Co de Phone Number [facility] [address] [place] [phone] * (ABNORMAL) COMPREHENSIVE METABOLIC PANEL (02/28/2024 2:11 PM HOT DOG VENDER) [facility] Glucose 114(H) 70 - 99 mg/dL 02/28/2024 2:[address] [facility] Sodium 138 136 - 145 mmol/L 02/28/2024 2:[address] [facility] Potassium 3.7 3.5 - 5.1 mmol/L 02/28/2024 2:[address] [facility] Chloride 109(H) 98 - 107 mmol/L 02/28/2024 2:[address] [facility] CO2 23 22 - 29 mmol/L 02/28/2024 2:[address] [facility] Calcium 9.0 8.4 - 10.4 mg/dL 02/28/2024 2:[address] [facility] Anion Gap 6 6 - 16 mmol/L 02/28/2024 2:[address] [facility] BUN 8 5.3 - 18.7 mg/dL 02/28/2024 2:[address] [facility] Creatinine 0.76 0.57 - 1.11 mg/dL 02/28/2024 2:[address] [facility] Alkaline Phosphatase 67 40 - 150 U/L 02/28/2024 2:[address] [facility] ALT 11 0 - 55 U/L 02/28/2024 2:[address] [facility] AST 15 5 - 34 U/L 02/28/2024 2:[address] [facility] Protein Total 7.0 6.4 - 8.3 gm/dL 02/28/2024 2:[address] [facility] Albumin 3.4 3.4 - 5.0 gm/dL 02/28/2024 2:[address] [facility] Bilirubin Total 0.4 0.2 - 1.2 mg/dL 02/28/2024 2:[address] [facility] eGFR by CKD-EPI >90 >=90 mL/min/1.7 3 m2 02/28/2024 2:[address] [facility] Blood BLOOD SPECIMEN / Unknown Venipuncture / Unknown 02/28/2024 2:11 PM HOT DOG VENDER 02/28/2024 2:16 PM [facility] us Robert Haddad PA-C LAB - CHEMISTRY ORDERABLE S Final Result [facility] [address] [place] [address] from Last 3 Months or Most Recently Relevant to Health Maintenance Insurance [employer] [facility] Care Teams Associate Designer Relationship Specialty Start Date End Date Chuck Nelson, FREDERICK-EMILY [facility] [place] [address] [phone] PCP - General Nurse Practitioner 08/25/22
--- OUTSIDE RECORDS SUMMARY | 2024-09-21 09:20 | XMS_ITS | Encounter Summary ---
Author Organization 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 [place] [address] Luana Plummer MD [address] [facility] [address] [place] [address] Refill Request Social History Tobacco Use Types Packs/Day Years [...] and heating? Not hard at all 08/23/2024 [facility] [place] of Occupat ional Health - Occupational Stress [...] things needed for daily living? No 08/23/2024 [place] Depression Scale Answer Date Recorded [place] Depression Scale Total 1 03/01/2024 The thought [...] any time in the past 12 m [facility], were you homeless or living in a group home (including now)? No 08/23/2024 Estimated Date of [...] Info) Description 09/22/2024 7:30 AM CDT Appointment [facility] MATERNAL/ EVALUATION UNIT [employer] [address] [place] [address] 09/26/2024 9:30 AM CDT Appointment [facility] MATERNAL/ EVALUATION UNIT [employer] [address] [place] [address] 09/26/2024 10:30 AM CDT Appointment [facility] MATERNAL/ EVALUATION UNIT [employer] [address] [place] [address] 09/26/2024 11:15 AM CDT Appointment [facility] [address] [place] [address] 09/27/2024 1:00 PM CDT Appointment [facility] [address] [place] [address] 09/27/2024 2:15 PM CDT Appointment [facility] [address] [place] [address] 09/29/2024 1:00 PM CDT Appointment [facility] [address] [place] [address] 10/03/2024 9:30 AM CDT Appointment [facility] UN[facility] [address] [place] [address] 10/03/2024 10:30 AM CDT Appointment [facility] UN[facility] [address] [place] [address] 10/06/2024 1:00 PM CDT Appointment [facility] [address] [place] [address] documented as of this encounter Visit Diagnoses Diagnosis Pre-existing type 2 diabetes mellitus during , antepartum (HCC) documented in this encounter Care Teams Program Eligibility Specialist Relationship Specialty Start Date End Date Chuck Nelson APRN-EMILY [address] [place] [phone] PCP - General Nurse Practitioner 08/25/22 documented as of this encounter
--- OUTSIDE RECORDS SUMMARY | 2024-09-21 09:20 | XMS_ITS | Encounter Summary ---
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 [place] [phone] Eduar Hernandez MD [address] [facility] [address] [place] [address] MEDICATION REFILL Social History Tobacco Use Types [...] hard at all 02/24/2024 [facility] [place] of Occupat ional Health - Occupational Stress [...] things needed for daily living? No 02/24/2024 [place] Depression Scale Answer Date Recorded [place] Depression Scale Total 1 03/01/2024 The thought [...] any time in the past 12 m [facility], were you homeless or living [...] Info) Description 09/22/2024 7:30 AM CDT Appointment [facility] MATERNAL/ EVALUATION UNIT [address] [place] [address] 09/26/2024 9:30 AM CDT Appointment [facility] MATERNAL/ EVALUATION UNIT [facility] [place] [address] 09/26/2024 10:30 AM CDT Appointment [facility] MATERNAL/ EVALUATION UNIT [address] [place] [address] 09/26/2024 11:15 AM CDT Appointment [facility]ALUATION UNIT [address] [place] [address] 09/27/2024 1:00 PM CDT Appointment [facility] UN[facility] [address] [place] [address] 09/27/2024 2:15 PM CDT Appointment [facility] UN[facility] [address] [place] [address] 09/29/2024 1:00 PM CDT Appointment [facility]ATION UN[facility] [address] [place] [address] 10/03/2024 9:30 AM CDT Appointment [facility]ATION UN[facility] [address] [place] [address] 10/03/2024 10:30 AM CDT Appointment [facility] UN[facility] [address] [place] [address] 10/06/2024 1:00 PM CDT Appointment [facility] UN[facility] [address] [place] [address] documented as of this encounter Visit Diagnoses Diagnosis Pre-existing type 2 diabetes mellitus during , antepartum (HCC) Type 2 diabetes mellitus with stage 1 chronic kidney disease, with long-term current use of insulin (HCC) documented in this encounter Care Teams University Administrator Relationship Specialty Start Date End Date Chuck Nelson APRN-EMILY [address] [place] [phone] PCP - General Nurse Practitioner 08/25/22 documented as of this encounter
--- OUTSIDE RECORDS SUMMARY | 2024-09-21 09:20 | XMS_ITS | Data Portability ---
Author Organization [facility] Address [address] [place] [address] [place] [address] Care Team Providers Care Manager Quality Improvement Name Role Phone CHEN CRAIG Primary Care Provider [phone] Assessment Encounter Date Assessment Date Assessment LastModified by Organization Details LastModified Time 09/15/2024 09/15/2024 Patient is ___weeks . Discussed plan. [email or web address] Not available 09/15/2024 15:43:51 Plan of Treatment Reminders Order Date Submit Date Provider Last Modified By Organization Details Last Modified Time Details Appointments NST 2024 01:30P M NST SCHEDULE Not available Not available Not available OB ROUTINE 2024 02:15P Raghavendra APONTE MD Not available Not available Not available NST 2024 01:00P M NST SCHEDULE Not available Not available Not available OB ROUTINE 2024 04:30P Raghavendra APONTE MD Not available Not available [...] recorded . Surgeries None recorded . Imaging non-stre ss test 2024 025 [email or web address] [place], [address], [place], [address], 09/15/2024 16:45:10 US, obstetri c, limited 2024 025 [email or web address] [place], [address], [place], [address], 09/08/2024 18:29:56 non-stre ss test 2024 025 [email or web address] [place], [address], [place], [address], 09/09/2024 01:14:22 Medication Orders None recorded . Patient TargetsNo targets recorded. Patient InstructionsNo instructions recorded. Reason for Referral None Reported. Results Created Date Observation Date Name Description Value Unit Range Abnormal Flag Note LastModifiedBy Organization Detail LastModifiedTime 08/26/1908/23/2024 US, obste tric, follo w-up No observ ation record ed. [facility] [address], [place], [address], 08/26/2024 16:05:55 08/26/1908/25/2024 non-s tress test No observ ation record ed. [email or web address] [address], [place], [address], 08/25/2024 16:29:32 09/01/19 25 08/30/2024 US, obste tric, follo w-up No observ ation record ed. [email or web address] [facility] [address], [place], [address], 09/01/2024 14:44:52 09/02/19 25 09/01/2024 non-s tress test No observ ation record ed. [email or web address] [address], [place], [address], 09/01/2024 16:07:12 09/08/19 25 09/06/2024 US, obste tric, follo w-up No observ ation record ed. [email or web address] [facility] [address], [place], [address], 09/15/2024 10:51:14 09/09/19 25 09/08/2024 non-s tress test No observ ation record ed. [email or web address] [place] [address], [place], [address], 09/08/2024 16:31:27 09/09/19 25 09/08/2024 , obste tric, limit ed No observ ation record ed. [email or web address] [place] [address], [place], [address], 09/08/2024 17:53:42 09/09/19 25 09/08/2024 , obste tric, limit ed No observ ation record ed. [email or web address] [address], [place], [address], 09/15/2024 11:13:07 09/16/19 25 09/13/2024 imagi ng/di agnos tic resul t No observ ation record ed. [email or web address] [facility] [address] , [place], [address], 09/18/2024 22:54:10 09/16/19 25 09/15/2024 non-s tress test No observ ation record ed. [email or web address] [place] [address], [place], [address], 09/15/2024 15:48:04 Result Notes None recorded. Problems Name Problem SNOMED Code Status Onset Date Resolution Date Notes Provider Name and Address Organization Details Recorded Time Finding of fertilit y Completed 201704/26/2020 Female infertil ity, unspecif ied;Prac sarath ID: 0001 Jorge zamarripa, [facility] 14:54:13 Dysuria 49916709 Completed 201704/26/2020 Dysuria; Practice ID: 0001 Jorge zamarripa, [facility] 14:54:28 Acute vaginiti s 74929657 Completed 201705/08/2020 Acute vaginiti s;Practi ce ID: 0001 Yadira zamarripa, [facility] 12:09:31 Female genital organ symptoms 516937243 Completed 201104/26/2020 Unspecif ied symptom associat ed with female genital organs;R ecorded Elsewher e: No Locat ion: [facility] S ource: EHR Tanning Wheel Filler ashlyn: N Practi ce ID: 0001 Ezio lable Time: 03:00:00 PM Jorge Diaz [facility] 14:54:25 Body mass index 30+ - obesity 203727886 Completed 201505/08/2020 Body mass index (BMI) 45.0-49. 9, adult;Re corded Elsewher e: No Locat ion: [facility] S ource: EHR Tanning Wheel Filler ashlyn: N Practi ce ID: 0001 Ezio lable Time: 05:30:00 PM [facility] 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 14:53:39 Syphilis test finding 516794113 Completed 201504/26/2020 Encntr screen for infectio ns w sexl mode of transmis s;Record ed Elsewher e: No Locat ion: [facility] S ource: EHR Tanning Wheel Filler ashlyn: N Practi ce ID: 0001 Ezio lable Time: 05:30:00 PM Jorge Diaz [facility] 14:53:43 Obesity 931085785 Completed 201305/08/2020 LD ASA per MFM Yadira Mckeon [facility] 12:09:[address] Concept Completed 201704/26/2020 Encntr for general adult medical exam w/o abnormal findings ;Recorde d Elsewher e: No Locat ion: [facility] S ource: EHR Tanning Wheel Filler ashlyn: N Practi ce ID: 0001 Ezio lable Time: 08:30:00 AM Faraevette Diaz [facility] 14:53:36 Screenin g for malignan t neoplasm of cervix Completed 201104/26/2020 Pap Smear;Pr actice ID: 0001 Faraevette Diaz [facility] 14:53:52 Ill-defi meño intestin al infectio n Completed 201104/26/2020 No Show Fee;Prac sarath ID: 0001 Faraevette Diaz [facility], [facility] 14:54:20 Amenorrh ea 96390105 Completed 201105/08/2020 AMENORRH EA;Pract ice ID: 0001 Yadira zamarripa, [facility] 12:09:33 Pregnanc y test negative 188546875 Completed 201104/26/2020 Negative Pregnanc y Test;Pra ctice ID: 0001 [facility]asy [facility] 14:53:57 Polycyst ic ovaries Completed 201305/08/2020 Polycyst ic ovaries; Practice ID: 0001 Yadira zamarripa [facility] 12:09:44 Migraine 54058037 Completed 201305/08/2020 Migraine , unspecif ied without mention of intracta ble migraine ;Practic e ID: 0001 Yadira zamarripa [facility] 12:09:40 Adult health examinat ion Completed 201404/26/2020 Routine general medical examinat ion at a [facility] facility ;Practic e ID: 0001 [facility] 14:54:37 Speciali zed medical examinat ion Completed 201404/26/2020 Other specifie d chlamydi al diseases ;Practic e ID: 0001 [facility] 14:53:40 Venereal disease screenin g Completed 201404/26/2020 Screenin g examinat ion for venereal disease; Practice ID: 0001 [facility] 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 14:53:34 Clinical finding Completed 201504/26/2020 Obesity, unspecif ied;Prac sarath ID: 0001 [facility] 14:54:15 Severe obesity 42715555450 104 Completed 201504/26/2020 Morbid (severe) obesity due to excess calories ;Practic e ID: 0001 Jorge zamarripa, [facility] 14:54:02 Primary amenorrh ea 736496623 Completed 201704/26/2020 Primary amenorrh ea;Pract ice ID: 0001 [facility] 14:53:54 Metaboli c syndrome X 143311002 Completed 201305/08/2020 Insulin resistan ce;Recor ded Elsewher e: No Locat ion: [facility] S ource: EHR Tanning Wheel Filler ashlyn: N Richrati ce ID: 0001 Ezio lable Time: 09:45:00 AM [facility] 12:09:39 Infectio n screenin g Completed 201504/26/2020 Encounte r for screenin g for oth infec/pa rastc diseases ;Recorde d Elsewher e: No Locat ion: [facility] S ource: EHR Tanning Wheel Filler ashlyn: N Richarti ce ID: 0001 Ezio lable Time: 05:30:00 PM [facility] 14:54:11 Diabetes mellitus 08234981 Completed 201905/08/2020 type 2 Yadira zamarripa [facility] 12:09:37 Anxiety 10421589 Completed 201905/08/2020 Zoloft [facility] 12:09:34 Abnormal cervical Papanico laou smear 518787887 Completed 201905/08/20202014 Yadira Mikelaura zamarripa [facility] 12:09:30 Pregnanc y 12743100 Completed 201905/08/2020 Nehal Armendariz null, [facility] 4 18:08:47 Type 2 diabetes mellitus 52367748 Completed Metformi n xr 2000mg qd Sent to [facility] for manageme nt- 05/16- NPH 26U AM/88U PM Increase 2 units when 1 consecut wili fasting >90 / Humalog 16U w/ bfast & 8Uw/ lunch & 32U w/ dinner. 6units with snack over 15g carbs. Nhi Reeves hl null, [facility] 13:40:41 Purpuric rash 884535039 Completed clotimaz ole/beta methazon e-Rxed Nhi Reeves hl null, [facility] 13:40:41 Obesity 407882656 Completed 2013 LD ASA per MF Nhi Reeves null, [facility] 13:40:41 Marginal insertio n of umbilica l cord 31967096 Completed 2019 growth u/s Nhi Reeves hl null, [facility] 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 13:40:41 Anxiety 19161115 Completed 2019 Zoloft Nhi Reeves hl null, [facility] 1 13:40:41 Pre-exis ting type 2 diabetes mellitus in pregnanc y 732959061 Completed 2020 DELIVER BY 36- not well controll ed. M may rec earlier. Nhi Reeves hl null, [facility] 13:40:41 Pre-exis ting type 2 diabetes mellitus in pregnanc y 065444825 Completed 202005/08/2020 Yadira Mckeon [facility], [facility] 1 12:09:45 Large for gestatio n age fetus 957072354 Completed potentia l 89% 05/11 Nhi Reeves jeanmarie [facility], [facility] 1 13:40:41 Pregnanc y 59560665 Active 2023 Nehal Armendariz [facility], [facility] 4 18:08:47 Type 2 diabetes mellitus 45712818 Active managed by [facility]FM Sched [facility] 05[facility]10 [facility] 06/28 US and office visit Consult 08/03/24 NST & US 08/23/24 1:15PM to start 2xwkly antenata l testing at 32wks confirm if pt schedule MFM or our office? schedule d for US/BPP/N ST weekly onTuesda ys starting 06/02/24 pt decline Thursday NST pt schedule d on s NST/OB Jenni Diaz [facility] 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 5 13:09:37 Group B Streptoc occus carrier 25067646080 03 Active + GBS in urine Jenni Diaz [facility] 5 13:09:37 Problem Notes None recorded. Procedures Surgical History Date Name Laterality Status Provider Name and Address Organization Details Recorded Time 03/01/20 24 Date of Last Pap Smear completed Nehal Armendariz [facility] 04/07/2024 18:07:50 09/02/19 23 IUD Removal completed Dante Aponte MD [address], [place], [address], [facility] 09/01/2022 22:15:29 05/19/19 23 Colposcopy completed Dante Aponte MD [address], [place], [address], [facility] 05/19/2022 15:31:57 05/19/19 23 Colposcopy completed Alva Kimble [facility] 03/09/2023 16:31:33 05/19/19 23 Colposcopy completed Sarah Jordan [facility] 05/19/2022 14:35:43 07/28/19 22 IUD Insertion completed Dante Aponte MD [address], [place], [address], [facility] 07/27/2021 12:17:49 05/22/19 21 NST completed Bel Dennison MD [address], [place], [address], [facility] 05/22/2020 14:09:48 05/15/19 21 NST completed Bel Dennison MD [address], [place], [address], [facility] 05/15/2020 13:43:28 04/27/19 21 NST completed Bel Dennison MD [address], [place], [address], [facility] 04/27/2020 12:17:14 04/20/19 15 Tonsillectomy completed Alva Kimble [facility] 11/09/2019 16:35:35 Imaging Results None recorded. Procedure Notes None recorded. Medical Equipment None Reported. Allergies Allergen ID Allergen Name Allergen Category Reaction Reaction Severity Criticality Documentation Date Start Date Code Code System Note Provider Name and Address Organization Details Recorded Time 1407 lisinopri l medicatio n rash Not available Not available 11/09/2019 47943 RxNorm Alva zamarripa [facility] 0 11:13:14 Medications Name Sig Start [...] Available fluconazo le 150 mg tablet TAKE ONE TABLET BY MOUTH A ONE-TIME DOSE (TAKE SECOND TABLET IF SYMPTOMS PERSIST AFTER 72 HOURS) active Not Available Not Available No t [...] and evening meals 01/11 completed Prescrib ed Kamille e: Yes Loca tion: [facility] odify By: arun kearns DateTime : 02/13/20 [...] Prescrib ed Elsewher e: No [facility] By: richard [address] ncounter DateTime : 02/03/20 18 02:19:49 PM [...] mg capsule TAKE 1 CAPSULE BY MOUTH TWICE DAILY active Not Available Not Available No t Available oseltamiv ir 75 mg capsule TAKE [...] Prescrib ed Elsewher e: No Locat ion: [facility] odify By: kashif sofia DateTime : 10/14/19 19 08:30:00 AM Not [...] Prescrib florecita Simental e: No Locat ion: [facility] odify By: karine calix DateTime : 05/21/19 [...] (U-100) 100 unit/mL subcutane ous pen INJECT 18 UNITS BEFORE SMALL MEALS (<30G), 20 UNITS BEFORE MEDIUM MEALS (30-45G) , AND 22 UNITS BEFORE LARGE MEALS (>60G). INJECT 6 UNITS WITH SNACKS. INJECT 0-15 MINUTES BEFORE MEALS INCREASE DOSE DIRECTED DURING PREGNANC Y. MAX DAILY DOSE 100 UNITS active Not Available Not Available No [...] mg capsule TAKE 1 CAPSULE BY MOUTH ONCE DAILY AT BEDTIME BEGIN AFTER TREATMEN T COURSE OF CEPHALEX IN IS FINISHED active Not Available Not Available No t Available Klonopin 02/21 completed Not Available Not Available Not Available Celexa 12/08 completed Not Available Not Available Not Available 07/27 completed Not Available Not Available Not Available Lexapro 12/08 completed Not Available Not Available Not Available Loestrin 24 Fe 1 mg-20 mcg (24)/75 mg (4) tablet take 1 tablet by oral route every day 08/19 completed Prescrib ed Elsewher e: No [facility] By: [email or web address] araceli Small counter [...] Prescrib ed Elsewher e: No [facility] By: claire kearns DateTime : [...] Available TRUEplus Pen Needle 32 gauge x 5/32 USE 1 PEN NEEDLE FIVE TIMES DAILY [...] completed Not Available Not Available Not Available M- Plus 27 mg iron-1 mg tablet TAKE [...] Available No t Available FreeStyle Herrera [address] [place] 07/06 completed Not Available Not Available Not [...] and Address Organization Details Last Updated DateTime 09/08/2024 158.75 cm 43.7 kg/m2 127600.9 5 g 143 mm[Hg] 91 mm[Hg] Nehal [facility] 16:49:27 Date Recorded Body height Body mass index (BMI) Body weight Systolic blood pressure Diastolic blood pressure Provider Name and Address Organization Details Last Updated DateTime 09/08/2024 158.75 cm 43.7 kg/m2 511433.9 5 g 143 mm[Hg] 91 mm[Hg] DIANE Navarro [facility] 16:30:30 Date Recorded Body weight Systolic blood pressure Diastolic blood pressure Provider Name and Address Organization Details Last Updated DateTime 09/15/2024 320789.315 39 g 122 mm[Hg] 77 mm[Hg] Nehal [facility] 09/15/2024 15:47:22 Date Recorded Body height Body mass index (BMI) Body weight Systolic blood pressure Diastolic blood pressure Provider Name and Address Organization Details Last Updated DateTime 09/15/2024 158.75 cm 44.5 kg/m2 238723.3 2 g 122 mm[Hg] 71 mm[Hg] DIANE Navarro [facility] 5 15:44:16 Social History Question Answer Notes LastModified by Organizat ion Details LastModified Time Tobacco Smoking Status Never Smoker Alva Kimble marilou, [facility] 11/09/2019 16:27:58 Are You Blind Or Do You Have Difficulty Seeing? No [email or web address] Information n ot available 03/09/2023 What Is Your Level Of Caffeine Consumption? Occasional [email or web address] Information not available 03/09/2023 In The 14 Days Before Symptom Onset, Have You Had Close Contact With A Laboratory-confirm ed COVID-19 While That Case Was Ill? No [email or web address] Information n ot available 03/09/2023 In The 14 Days Before Symptom Onset, Have You Had Close Contact With A Person Who Is Under Investigation For COVID-19 While That Person Was Ill? No [email or web address] Information not available 03/09/2023 Have You Been To An Area Known To Be High Risk For COVID-19? No [email or web address] Information not available 03/09/2023 Are You Deaf Or Do You Have Serious Difficulty Hearing? No [email or web address] Information not available 03/09/2023 What Type Of Diet Are You Following? DIABETIC [email or web address] Information n ot available 03/09/2023 Which Illicit Or Recreational Drugs Have You Used? [place] [email or web address] Information not available 11/09/2019 What Was The Date Of Your Most Recent Tobacco Screening? 03/09/2023 [email or web address] Information not available 03/09/2023 Do You Use Your Seat Belt Or Car Seat Routinely? Yes [email or web address] Information not available 03/09/2023 Do You Have Smoke And Carbon Monoxide Detectors In Your Home? Yes Information not available 03/09/2023 How Much Tobacco Do You Smoke? No [email or web address] Information not available 11/09/2019 Do You Use Sunscreen Routinely? Yes [email or web address] Information not available 03/09/2023 Do You Have Difficulty Walking Or Climbing Stairs? No [email or web address] Information not available 03/09/2023 Sex: Unknown Functional Status Question Answer Note LastModified by Organizat ion Details LastModified Time What is your level of alcohol consumption? Occasional [email or web address] Information not available 11/09/2019 Do you or have you ever used smokeless tobacco? Never used smokeless tobacco [email or web address] Information not available 11/09/2019 Are you able to walk? YESWOREST [email or web address] Information not available 03/09/2023 Are you able to care for yourself? Yes [email or web address] Information not available 03/09/2023 Do you have difficulty dressing or bathing? No [email or web address] Information not available 03/09/2023 Do you or have you ever used e-cigarettes or vape? Never used electronic cigarettes [email or web address] Information not available 11/09/2019 What is your exercise level? Occasional [email or web address] Information not available 11/09/2019 Mental Status Question Answer Note LastModified by Organization D etails LastModified Time Do you feel stressed (tense, restless, nervous, or anxious, or unable to sleep at night)? [id number] [email or web address] Information not available 03/09/2023 Family History Relationship Description Onset Age of this Age Resolved Age Notes LastModified by Organization Details LastModified Time Maternal Grandmother Diabetes mellitus [email or web address] Not available 11/08 16:27:24 Maternal Aunt Diabetes mellitus [email or web address] Not available 11/08 16:27:24 Maternal Aunt Malignant tumor of cervix [email or web address] Not available 11/08 16:27:36 Maternal Aunt Malignant tumor of breast [email or web address] Not available 11/08 16:27:47 Medical History Condition Response Allergies (Food, seasonal, environmental ) Y Other N Breast Cancer N Drug/Latex Allergies/Reactions Y Blood Transfusion N Dermatologic Disorders N Lung Disease N Defects or Inherited Disease N Breast Problem N Gestational Diabetes N Hematologic disorders N Anesthesia Complications N History of STI Y Deep Vein Thrombosis N Polycystic ovary syndrome Y Anxiety Disorder Y Autoimmune disease N Arthritis N Infertility N Polyps N Acid Reflux (GERD) Y History of abnormal pap Y Cancer N Stroke N Varicosities N Neurologic/Epilepsy N Endometriosis N High Cholesterol Y Headaches N Fibromyalgia N Kidney Disease N Heart Problems N [...] SNOMED-CT Code Diagnosis ICD10 Code Diagnosis Note [id number] [facility] [address] [address] 11/09/2019 10:35:05 11/09/2019 12:09:35 [id number] Dante Aponte MD [place] [address],[place] [address] 11/09/2019 10:36:18 11/09/2019 13:42:01 [id number] Dante Aponte MD [place] [address],[place] [address] 12/09/2019 10:39:11 12/09/2019 12:29:37 screening 942578813 Z36.82 Z36.0 Z36.89 Pruritic rash 52628711 L 28.2 Routine an tenatal care 795935464 Z34.01 [id number] Dante Apnote MD [place] [address],[place] [address] 12/09/2019 10:39:39 12/09/2019 11:48:03 screening 110267892 Z36.82 Z36.0 Z36.89 14700 Dante Aponte MD [place] [address],[place] [address] 01/06/2020 11:18:19 01/06/2020 12:48:28 Gestational diabetes mellitus class A2 03489299 O24.414 [id number] MD Roxana Posada [address],[place] [address] 01/06/2020 11:18:55 01/06/2020 14:59:05 [id number] MD Roxana Posada [address],[place] [address] 02/03/2020 09:30:52 02/03/2020 12:31:48 screening for malformation 734116870 Z36.3 96390 [facility] [address],[place] [address] 02/03/2020 09:31:14 02/03/2020 13:25:47 Routine care 138204491 Z34.92 [id number] MD Roxana Posada [address],[place] [address] 02/24/2020 14:40:59 02/24/2020 16:52:22 Headache 30980834 R51.9 Anxiety 80698291 F41.9 [id number] MD Roxana Posada [address],[place] [address] 03/02/2020 09:24:54 03/02/2020 10:41:38 screening 711477062 Z36.2 O35.8XX0 O43.92 O24.112 Z3A.24 07706 [facility] [address],[place] [address] 03/02/2020 09:25:14 03/02/2020 10:41:22 Routine care 046438502 Z34.92 [id number] Franci Wyman CNM [place] [address],[place] [address] 03/30/2020 12:05:24 03/30/2020 14:10:47 Routine care 266441929 Z34.92 [id number] Bel Dennison MD [place] [address],[place] [address] 04/11/2020 13:45:33 04/11/2020 14:43:39 Pre-existing type 2 diabetes mellitus in 722107202 O24.119 [id number] MD Roxana Kirkpatrick [address],[place] [address] 04/27/2020 11:06:25 04/27/2020 12:38:33 Pre-existing type 2 diabetes mellitus in 346895859 O24.119 [id number] MD Roxana Kirkpatrick [address],[place] [address] 04/27/2020 11:06:44 04/27/2020 12:43:55 Gestational diabetes mellitus class A2 92312529 O24.414 14088 MD Roxana Posada [address],[place] [address] 05/01/2020 11:25:52 05/01/2020 12:33:58 Gestational diabetes mellitus class A2 68366059 O24.414 [id number] Dante Aponte MD [place] [address],[place] [address] 05/01/2020 11:27:17 05/01/2020 12:39:16 Routine care 531626758 Z34.01 [id number] Dante Aponte MD [place] [address],[place] [address] 05/08/2020 11:29:34 05/08/2020 12:15:11 Gestational diabetes mellitus class A2 22283197 O24.414 22996 [facility] [address],[place] [address] 05/08/2020 11:30:35 05/08/2020 12:42:05 Routine care 613034935 Z34.93 [id number] Bel Dennison MD [place] [address],[place] [address] 05/15/2020 11:29:25 05/15/2020 12:47:10 Gestational diabetes mellitus class A2 23854970 O24.414 [id number] Bel Dennison MD [place] [address],[place] [address] 05/15/2020 11:30:12 05/15/2020 14:05:54 Pre-existing type 2 diabetes mellitus in 330971606 O24.119 [id number] Bel Dennison MD [place] [address],[place] [address] 05/22/2020 11:36:06 05/24/2020 16:00:09 Gestational diabetes mellitus class A2 33175412 O24.414 [id number] Bel Dennison MD [place] [address],[place] [address] 05/22/2020 11:37:01 05/23/2020 11:05:33 Pre-existing type 2 diabetes mellitus in 155899009 O24.119 Reduced fe sven movement 643959904 O36.8199 [id number] Dante Aponte MD [place] [address],[place] [address] 05/22/2020 12:11:38 05/24/2020 11:07:14 condition affecting obstetrical care of mother 142056050 O36.8330 [id number] Dante Aponte MD [place] [address],[place] [address] 07/06/2020 15:53:54 07/06/2020 16:45:54 Anxiety 06084079 F41.9 care 09684042 8 Z39.0 Patient is a 29-year-ol d [...] sertraline . She will in 1 month. [id number] MD Roxana Posada [address],[place] [address] 07/27/2021 11:51:04 07/27/2021 12:18:19 Contraception care management 306833670 Z30.9 IUD was inserted without complicati ons. Insertion of intrauterine contraceptive device 87576707 Z30.430 [id number] Dante Aponte MD [place] [address],[place] [address] 04/25/2022 10:39:12 04/25/2022 13:43:15 Gynecologic examination 23684226 Z01.419 Annual gynecologi amy exam performed. Patient [...] Cholestero l - done Pap - today [id number] Dante Aponte MD [place] [address],[place] [address] 05/19/2022 13:54:03 05/19/2022 15:37:59 Dysplasia of cervix 98102858 N87.9 colposcopi c examinatio n was performed and biopsies were performed. Three biopsies and an ECC were performed and she tolerated it well. [id number] Dante Aponte MD [place] [address],[place] [address] 09/01/2022 16:33:00 09/02/2022 14:30:51 Vulval irritation 388948470 N90.89 Contracept ion care management 972443970 Z30.9 IUD was inserted without complicati ons. Urinary tr act infectious disease 22343375 N39.0 patient reported urinary symptoms. [id number] BLAKE Vaughn [facility] [place] [address],[place] [address] 03/09/2023 16:32:50 03/10/2023 09:09:00 Contraception care management 904863851 Z30.9 Discussed all BC methods in-depth, r/b/a [...] counseling and review of plan of care. [id number] JOELLE MCLEAN MD [place] [address],[place] [address] 05/13/2023 12:18:10 05/14/2023 08:54:53 Vaginitis 36126034 N76.0 - swab sent, [facility] 727668710 Z30.9 - unhappy with slynd, would like Paraguard IUD placement- patient to call with next period for placement Recurrent urinary tract infection 631645560 N39.0 - patient to call for urine culture if symptoms recur, currently resolved- consider postcoital or daily ppx if recurrent [id number] Dante Aponte MD [place] [address],[place] [address] 02/22/2024 10:09:21 02/22/2024 12:07:46 Ectopic 51843140 O00.90 this patient is a 33-year-ol d [...] the week. this problem has marked complexity [id number] Dante Aponte MD [place] [address],[place] [address] 02/22/2024 10:52:45 02/22/2024 11:37:21 Low back pain in 2588816452 106 O26.899 O36.80X9 Z3A.01 [id number] MD Roxana Posada [address],[place] [address] 04/07/2024 16:30:33 04/07/2024 17:49:14 screening 130136775 Z36.82 Z3A.12 [id number] MD Roxana Posada [address],[place] [address] 04/07/2024 16:31:11 04/08/2024 09:39:28 Gestation period, 12 weeks 82674893 Z3A.12 [id number] MD Roxana Posada [address],[place] [address] 05/05/2024 16:13:19 05/05/2024 17:37:08 [id number] Dante Aponte MD [place] [address],[place] [address] 05/05/2024 17:30:23 05/05/2024 17:49:36 [id number] MD Roxana Posada [address],[place] [address] 06/02/2024 16:32:48 06/02/2024 17:33:53 Routine care 139281088 Z34.01 [id number] MD Roxana Posada [address],[place] [address] 06/30/2024 13:38:23 06/30/2024 14:25:45 Routine care 435321076 Z34.01 [id number] JOELLE MCLEAN MD [place] [address],[place] [address] 07/18/2024 16:43:22 07/18/2024 17:20:55 Vaginitis 12934332 N76.0 - tried OTC monistat without relief- swab sent, follow up on results as available [id number] MD Roxana Posada [address],[place] [address] 07/28/2024 13:50:41 07/28/2024 15:00:44 Routine care 975021299 Z34.01 [id number] MD Roxana Posada [address],[place] [address] 08/08/2024 14:01:40 08/08/2024 14:36:37 care status 017628343 Z34.83 [id number] Dante Aponte MD [place] [address],[place] [address] 08/25/2024 14:41:30 08/25/2024 15:26:20 care status 676619268 Z34.83 [id number] MD Roxana Posada [address],[place] [address] 08/25/2024 16:28:05 08/25/2024 16:32:44 Past history of gestational diabetes mellitus 209824555 Z86.32 [id number] MD Roxana Posada [address],[place] [address] 09/01/2024 13:22:25 09/01/2024 16:18:24 Gestational diabetes mellitus class A2 85540462 O24.419 [id number] MD Roxana Pos[place] [address],[place] [address] 09/01/2024 13:22:47 09/05/2024 00:58:57 care status 698799523 Z34.83 [id number] Dante Aponte MD [place] [address],[place] [address] 09/08/2024 15:33:55 09/08/2024 16:50:33 Gestational diabetes mellitus 50288811 O24.410 [id number] Dante Aponte MD [place] [address],[place] [address] 09/08/2024 15:34:08 09/08/2024 16:50:00 Oligohydramnios 46260206 O41.03X0 Z3A.34 [id number] Dante Aponte MD [place] [address],[place] [address] 09/08/2024 15:34:18 09/09/2024 01:16:04 [id number] Dante Aponte MD [place] [address],[place] [address] 09/15/2024 15:02:18 09/15/2024 16:45:10 Gestational diabetes mellitus 19793838 O24.410 [id number] Dante Aponte MD [place] [address],[place] [address] 09/15/2024 15:02:40 09/15/2024 16:44:53 care status 314656652 Z34.83 Health Concerns Section Related Observation LastModified by Organization Detai ls LastModified Time None Recorded Concern Status LastModified by Organization Details LastModified Time None Recorded Advance Directives Directive None Recorded Payers Encounter Date Sequence Insurance Name Policy Number Policy Goddard Covered Member ID Goddard Member ID Guarantor Name 09/08/2024 1 [employer] - ALLIED BENEFITS - OPEN ACCESS Yasmeen Ny [id number] Yasmeen Ny 09/08/2024 2 [facility] - DOS ON OR AFTER 20 (MEDICAID REPLACEMENT - HMO) Yasmeen Ny [id number] Yasmeen Ny 09/08/2024 1 [employer] - ALLIED BENEFITS - OPEN ACCESS Yasmeen Ny [id number] Yasmeen Ny 09/08/[address] [facility] ON OR AFTER 10/18/20 (MEDICAID REPLACEMENT - HMO) Yasmeen Ny [id number] Yasmeen Ny 09/08/2024 1 [employer] - ALLIED BENEFITS - OPEN ACCESS Yasmeen Ny [id number] Yasmeen Ny 09/08/[address] [facility] ON OR AFTER 10/18/20 (MEDICAID REPLACEMENT - HMO) Yasmeen Ny [id number] Yasmeen Ny 09/15/2024 1 [employer] - ALLIED BENEFITS - OPEN ACCESS Yasmeen Ny [id number] Yasmeen Ny 09/15/[address] [facility] ON OR AFTER 10/18/20 (MEDICAID REPLACEMENT - HMO) Yasmeen Ny [id number] Yasmeen Ny 09/15/2024 1 [employer] - ALLIED BENEFITS - OPEN ACCESS Yasmeen Ny [id number] Yasmeen Ny 09/15/[address] [facility] ON OR AFTER 10/18/20 (MEDICAID REPLACEMENT - HMO) Yasmeen Ny [id number] Yasmeen Ny OBGyn Episode Ob Episode Information Episode Created Date Number of Fetuses Patient Bloodtype Patient rh Status Prepregnancy Weight lbs Domestic Partner Domestic Partner Phone Father Name Telecom Analyst Status 12/09/19 20 1 A Positive 226 CLOSED Fetus Data First Name Last Name Admitted to NICU Weight (g) Sex Living Outcome Pediatric Complications Fetus ID Race Codes Race Delivery Type 3203.49 35 M true Full Term 3938 Vaginal Delivery Problems Problem Notes [facility] - 03/28 - Recommendations : 162mg ASA daily, echo, A1C q trimester, baseline 24 hr TP, 2x/wk NST and weekly BPP @ 32 wks. ECHO - Scheduled 04/19- Normal record in chart [facility] 05/16 [facility]DE 10:30am - *WILL REQUIRE INSULIN DRIP DURING LABOR/DECREASE BY 50% IN *[facility] - next appt 05/23 [facility]/US Problem Name Start Date End Date Resolution Snomed Code Not e Purpuric rash 528417616 clotim azole/betametha zone-Rxed Type 2 diabetes mellitus 61675991 Metformin xr 20 00mg qdSent to MFM for management- 05/16-NPH 26U AM/88U PM Increase 2 units when 1 consecutive fasting >90 / Humalog 16U w/ bfast & 8Uw/ lunch & 32U w/ dinner. 6units with snack over 15g carbs. Obesity 08/19/2013 276656360 LD ASA pe r MFM Marginal insertion of umbilical cord 02/03/2020 53550971 growth u/s Dilatation of renal pelvis - bilater al - growth u/s Anxiety 11/09/2019 38907118 Zoloft Pre-existing type 2 diabetes mellitus in 04/27/2020 985324054 DELIVER BY 37- not well controlled. MFM [...] Gestation 0 [email or web address] 12/09/2019 06/21/19 21 0 Pre- Flowsheet Flowsheet Date 11/09/2019 Alonso Score Blood [...] Weight in lbs Pre/Post Dialysis Refused Weight 230.008151048958 BP Diastolic BP Location Tested BP Systolic [...] Weight in lbs Pre/Post Dialysis Refused Weight 237.871335834157 BP Diastolic BP Location Tested BP Systolic [...] Weight in lbs Pre/Post Dialysis Refused Weight 242.883449073374 BP Diastolic BP Location Tested BP Systolic [...] Weight in lbs Pre/Post Dialysis Refused Weight 249.789333490048 BP Diastolic BP Location Tested BP Systolic [...] Weight in lbs Pre/Post Dialysis Refused Weight 249.755841648005 BP Diastolic BP Location Tested BP Systolic [...] Weight in lbs Pre/Post Dialysis Refused Weight 256.143024861386 BP Diastolic BP Location Tested BP Systolic [...] Weight in lbs Pre/Post Dialysis Refused Weight 259.769726229759 BP Diastolic BP Location Tested BP Systolic BP Type 80 125 Fetus Heart Rate Present A 145 Fetus Movement A Yes Comments 2+glucose. Ran out of insuli n for 3 days. Back on now. Sugars per MFM. On Nph 1650 and lispro 8/0/16. NSTs scheduled here. Encouraged Tdap and flu, [...] Weight in lbs Pre/Post Dialysis Refused Weight 263.596817939100 BP Diastolic BP Location Tested BP Systolic [...] Weight in lbs Pre/Post Dialysis Refused Weight 268.078839537292 BP Diastolic BP Location Tested BP Systolic [...] Weight in lbs Pre/Post Dialysis Refused Weight 266.851447646355 BP Diastolic BP Location Tested BP Systolic [...] Weight in lbs Pre/Post Dialysis Refused Weight 269.719752756503 BP Diastolic BP Location Tested BP Systolic [...] Weight in lbs Pre/Post Dialysis Refused Weight 272.166604581199 BP Diastolic BP Location Tested BP Systolic [...] 20bpm below baseline, spontaneous. BPP in office 09/25. To [facility] for extended monitoring. I discussed her case with LIZ Sim. SHe recommends to deliver at 37 weeks if extended monitoring ok. If any further significant decels or BPP less than 09/25, then immediate delivery. Pt sent to [facility]. [...] Estim ated Date of Delivery false Thalassemia (Arabic, Indian, Mediterranean, Or Background): MCV < 80 false Neural Tube Defect (Meningomyelocele, Spina Bifi da, Or Anencephaly) false Congenital Heart Defect false Down Syndrome false Tyrell-Sachs (eg, Mandaeism, Cajun, Slovak-Charles) f alse Kodak Disease false Sickle Cell Disease Or Trait () false Hemophilia Or Other Blood Disorders false Muscular Dystrophy false Cystic Fibrosis false [place] Ch[place] false Intellectual Disability/Autism false If Yes, [...] Domestic Partner Domestic Partner Phone Father Name Telecom Analyst Status 04/07/20 24 1 A Positive OPEN Fetus Data First Name Last Name Admitted to NICU Weight (g) Sex Living Outcome Pediatric Complications Fetus ID Race Codes Race Delivery Type [id number] Problems Problem Notes Problem Name Start Date End Date Resolution Snomed Code Not e Type 2 diabetes mellitus 34499608 managed by [facility] 06/28 US and office visitConsult 08/03/24NST & US 08/23/24 1:15PM to start 2xwkly testing at 32wks confirm if pt schedule MFM or our office?scheduled for US/BPP/NST weekly starting 06/02/24 pt decline Thursday NST pt scheduled on NST/OB Group B Streptococcus carrier [id number] + GBS in urine Rajeev Calculation Initial [...] Gestation 0 [email or web address] 04/07/2024 10/20/19 25 0 Pre-issac Flowsheet Flowsheet Date 04/07/2024 Alonso Score Blood Edema Fundus Height Fundus Units Glucose Ketones Leukocytes Nitrite Labor Signs Protein Cervic Dilation Cervic Effacement Cervic Station Type Weight in lbs Pre/Post Dialysis Refused Weight 209.487958660495 BP Diastolic BP Location Tested BP Systolic [...] Type Weight in lbs Pre/Post Dialysis Refused 217.465714535012 BP Diastolic BP Location Tested BP Systolic [...] Type Weight in lbs Pre/Post Dialysis Refused 222.04434173204 BP Diastolic BP Location Tested BP Systolic [...] Type Weight in lbs Pre/Post Dialysis Refused 229.839996947959 BP Diastolic BP Location Tested BP Systolic [...] Weight in lbs Pre/Post Dialysis Refused Weight 231.399903344675 BP Diastolic BP Location Tested BP Systolic BP Type 75 L arm 116 sitting Fetus Heart Rate Present A 150 Fetus Movement A Yes Comments problem visit, vaginitis. Se e note. Flowsheet Date 07/28/2024 Alonso Score Blood Edema Fundus Height Fundus Units Glucose Ketones Leukocytes Nitrite Labor Signs Protein Cervic Dilation Cervic Effacement Cervic Station Type Weight in lbs Pre/Post Dialysis Refused Weight 231.347189718842 BP Diastolic BP Location Tested BP Systolic [...] week labs today, minus the diabetes testing. Flowsheet Date 08/08/2024 Alonso Score Blood Edema Fundus Height Fundus Units Glucose Ketones Leukocytes Nitrite Labor Signs Protein Cervic Dilation Cervic Effacement Cervic Station 28 cm Type Weight in lbs Pre/Post Dialysis Refused Weight 233.316592650654 BP Diastolic BP Location Tested BP Systolic BP Type 84 L arm 136 sitting Fetus Heart Rate Present A 142 Present Fetus Movement A Yes Comments no complaints, no problems, routine care, no contractions, no vaginal bleeding, no loss of fluid, no cramping Flowsheet Date 08/25/2024 Alonso Score Blood Edema Fundus Height Fundus Units Glucose Ketones Leukocytes Nitrite Labor Signs Protein Cervic Dilation Cervic Effacement Cervic Station Type Weight in lbs Pre/Post Dialysis Refused Weight 242.8581628845 BP Diastolic BP Location Tested BP Systolic BP Type 63 L arm 144 sitting Fetus Heart Rate Present A 140 Present Fetus Movement A Yes Comments no complaints, no problems, routine care, no contractions, no vaginal bleeding, no loss of fluid, no cramping NSTs and BPP's here. Diabetes managed by [facility]. Flowsheet Date 08/25/2024 Alonso Score Blood Edema Fundus Height Fundus Units Glucose Ketones Leukocytes Nitrite Labor Signs Protein Cervic Dilation Cervic Effacement Cervic Station Type Weight in lbs Pre/Post Dialysis Refused Weight 242.2777328449 BP Diastolic BP Location Tested BP Systolic BP Type 63 L arm 144 sitting Fetus Heart Rate Present Fetus Movement Comments Flowsheet Date 09/01/2024 Alonso Score Blood Edema Fundus Height Fundus Units Glucose Ketones Leukocytes Nitrite Labor Signs Protein Cervic Dilation Cervic Effacement Cervic Station Type Weight in lbs Pre/Post Dialysis Refused Weight 244.131632449610 BP Diastolic BP Location Tested BP Systolic BP Type 87 L arm 137 sitting Fetus Heart Rate Present A 144 Fetus Movement A Yes Comments no complaints, no problems, routine care, no contractions, no vaginal bleeding, no loss of fluid, no cramping Flowsheet Date 09/01/2024 Alonso Score Blood Edema Fundus Height Fundus Units Glucose Ketones Leukocytes Nitrite Labor Signs Protein Cervic Dilation Cervic Effacement Cervic Station Type Weight in lbs Pre/Post Dialysis Refused Weight 244.822372901959 BP Diastolic BP Location Tested BP Systolic BP Type 87 L arm 137 sitting Fetus Heart Rate Present Fetus Movement Comments Flowsheet Date 09/08/2024 Alonso Score Blood Edema Fundus Height Fundus Units Glucose Ketones Leukocytes Nitrite Labor Signs Protein Cervic Dilation Cervic Effacement Cervic Station Type Weight in lbs Pre/Post Dialysis Refused Weight 243.556356909819 BP Diastolic BP Location Tested BP Systolic BP Type 91 L arm 143 sitting Fetus Heart Rate Present Fetus Movement Comments Flowsheet Date 09/08/2024 Alonso Score Blood Edema Fundus Height Fundus Units Glucose Ketones Leukocytes Nitrite Labor Signs Protein Cervic Dilation Cervic Effacement Cervic Station Type Weight in lbs Pre/Post Dialysis Refused BP Diastolic BP Location Tested BP Systolic BP Type Fetus Heart Rate Present Fetus Movement Comments Flowsheet Date 09/08/2024 Alonso Score Blood Edema Fundus Height Fundus Units Glucose Ketones Leukocytes Nitrite Labor Signs Protein Cervic Dilation Cervic Effacement Cervic Station Type Weight in lbs Pre/Post Dialysis Refused Weight 243.820134627806 BP Diastolic BP Location Tested BP Systolic BP Type 91 L arm 143 sitting Fetus Heart Rate Present A 133 Fetus Movement A Yes Comments MFM concerned about low flui d, we saw some lower fluid today. Has 2 x 2 pocket. Has 8/8 BPP and reactive nonstress test today. Has follow-up with MFM early next week. No complaints. Flowsheet Date 09/15/2024 Alonso Score Blood Edema Fundus Height Fundus Units Glucose Ketones Leukocytes Nitrite Labor Signs Protein Cervic Dilation Cervic Effacement Cervic Station Type Weight in lbs Pre/Post Dialysis Refused Weight 247.186301289948 BP Diastolic BP Location Tested BP Systolic BP Type 71 L arm 122 sitting Fetus Heart Rate Present Fetus Movement Comments Flowsheet Date 09/15/2024 Alonso Score Blood Edema Fundus Height Fundus Units Glucose Ketones Leukocytes Nitrite Labor Signs Protein Cervic Dilation Cervic Effacement Cervic Station Type Weight in lbs Pre/Post Dialysis Refused 247.056218623116 BP Diastolic BP Location Tested BP Systolic BP Type 77 L arm 122 sitting Fetus Heart Rate Present A 145 Fetus Movement A Yes Comments no complaints, [...]
--- OUTSIDE RECORDS SUMMARY | 2024-09-21 09:20 | XMS_ITS | Data Portability ---
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 Plan of Treatment Reminders Order Date Submit Date Provider Last Modified By Organization Details Last Modified Time Details Appointments None recorded. Lab test, urine 2023 024 singh In-Office Order, Internal Use Only DO Not Attach Compendium DO Not Attach Compendium, Do Not Delete/merge, [id number] 13:09:24 lipid panel, serum 2023 024 singh [facility], [address] [place] [address], [address], [place], [address], 4 11:40:06 CBC w/ auto diff 2023 024 ZAP[facility]obby [facility], [address] [place] [address], [address], [place], [address], 4 11:40:06 amylase + lipase, serum 2023 024 ZAPcandida [facility], [address] [place] [address], [address], [place], [address], 4 11:40:06 Referral None recorded. Procedures None recorded. Surgeries None recorded. Imaging None recorded. Medication Orders aspirin 81 mg tablet,orly rodriguezd release 2023 [facility], [facility] [place], [address], 13:20:45 atorvastati n 20 mg tablet 2023 [facility], [address] [place] [address], [address], 13:20:49 spironolact one 100 mg tablet 2023 [facility], [address] [place] [address], [address], 4 13:20:46 nystatin 100,000 unit/gram topical powder 2023 [facility], [address] [place] [address], [address], 13:20:47 phentermine 37.5 mg tablet 2023 [facility], [facility] [place], [address], 13:20:56 escitalopra m 20 mg tablet 2023 [facility], [facility] [place], [address], 13:20:49 metformin 1,000 mg tablet 2023 024 [facility] [address], [address] [place] [address], [address], 4 13:20:44 Mounjaro 10 mg/0.5 mL subcutaneou s pen injector 2023 024 [facility] [address], [address] [place] [address], [address], 13:20:48 fluticasone propionate 50 mcg/actuati on nasal spray,suspe nsion 2023 024 [facility], [address] [place], [address], 4 13:20:46 montelukast 10 mg tablet 2023 024 [facility] [address], [address] [place] [address], [address], 13:20:49 phentermine 37.5 mg tablet 2023 [facility], [address] [place] [address], [id number], 18:24:29 phentermine 37.5 mg tablet 2023 [facility] [address], [address] [place] [address], [address], 15:30:16 triamcinolo ne acetonide 0.1 % topical cream 2023 [facility] [address], [address] [place] [address], [address], 15:30:14 Patient TargetsNo targets recorded. Patient Instructions Encounter Date Encounter Id Patient Instructions Last Modified By Organization Details Last Modified Time 09/03/2023 [id number] A healthy lifestyle: care instructions yarauz Not available 09/03/2023 13:09:22 body mass index: care instructions yarauz Not available 09/03/2023 13:09:22 learning about healthy weight yarauz Not available 09/03/2023 13:09:[address] op phentermine for now till after surgery continue present meds yarauz Not available 09/03/2023 17:56:58 11/02/2023 [id number] body mass index: care instructions yarauz Not [...] Rx yarauz Not available 11/02/2023 15:13:42 12/14/2023 [id number] When You Want to Lose Weight: Care [...] Rx yarauz Not available 12/14/2023 12:51:59 02/05/2024 [id number] learning about endovenous ablation for varicose veins [...] DO Not Attach Compendium, Do Not Delete/merge, [id number] 08/20/2023 11:59:00 08/20/19 24 08/20/2023 HbA1c (hemo globi n A1c), blood HbA1c 6.6 Not Available In-Office Order Internal Use Only DO Not Attach Compendium DO Not Attach Compendium, Do Not Delete/merge, [id number] 08/20/2023 11:58:59 09/01/19 24 09/02/2023 LIPID PANEL cholesterol, total 175 mg/dL 100-19 9 Not Available [facility] ([facility]) [address] [facility], [place], [address], 09/02/2023 11:15:38 09/01/19 24 09/02/2023 LIPID PANEL triglyceride s 199 mg/dL 0-149 above high normal Not Available [facility] ([facility]) [address] [facility] [place], [address], 09/02/2023 11:15:38 09/01/19 24 09/02/2023 LIPID PANEL HDL cholesterol 32 mg/dL >39 below low normal Not Available [facility] ([facility]) [address] [facility], [place], [address], 09/02/2023 11:15:38 09/01/19 24 09/02/2023 LIPID PANEL VLDL cholesterol amy 35 mg/dL 5-40 Not Available [facility] ([facility]) [address] [place], [address], 09/02/2023 11:15:38 09/01/19 24 09/02/2023 LIPID PANEL LDL chol calc ([facility]) 108 mg/dL 0-99 above high normal Not Available [facility] ([facility]) [address] [place], [address], 09/02/2023 11:15:38 09/01/19 24 09/02/2023 CBC WITH DIFFE RENTI AL/PL ATELE T WBC 10.4 x10e3 /uL 3.4-10 .8 Not Available [facility] ([facility]) [address] [place], [address], 09/02/2023 11:15:39 09/01/19 24 09/02/2023 CBC WITH DIFFE RENTI AL/PL ATELE T RBC 4.78 x10e6 /uL 3.77-5 .28 Not Available [facility] ([facility]) [address] [place], [address], 09/02/2023 11:15:39 09/01/19 24 09/02/2023 CBC WITH DIFFE RENTI AL/PL ATELE T hemoglobin 13.6 g/dL 11.1-1 5.9 Not Available [facility] ([facility]) [address] [facility], [place], [address], 09/02/2023 11:15:39 09/01/19 24 09/02/2023 CBC WITH DIFFE RENTI AL/PL ATELE T hematocrit 40.7 % 34.0-4 6.6 Not Available [facility] ([facility]) [address] [facility], [place], [address], 09/02/2023 11:15:39 09/01/19 24 09/02/2023 CBC WITH DIFFE RENTI AL/PL ATELE T MCV 85 fL 79-97 Not Available [facility] ([facility]) [address] [facility], [place], [address], 09/02/2023 11:15:39 09/01/19 24 09/02/2023 CBC WITH DIFFE RENTI AL/PL ATELE T MCH 28.5 pg 26.6-3 3.0 Not Available [facility] ([facility]) [address] [facility], [place], [address], 09/02/2023 11:15:39 09/01/19 24 09/02/2023 CBC WITH DIFFE RENTI AL/PL ATELE T MCHC 33.4 g/dL 31.5-3 5.7 Not Available [facility] ([facility]) [address] [place], [address], 09/02/2023 11:15:39 09/01/19 24 09/02/2023 CBC WITH DIFFE RENTI AL/PL ATELE T RDW 12.6 % 11.7-1 5.4 Not Available [facility] ([facility]) [address] [place], [address], 09/02/2023 11:15:39 09/01/19 24 09/02/2023 CBC WITH DIFFE RENTI AL/PL ATELE T platelets 404 x10e3 /uL 150-45 0 Not Available [facility] ([facility]) [address] [facility], [place], [address], 09/02/2023 11:15:39 09/01/19 24 09/02/2023 CBC WITH DIFFE RENTI AL/PL ATELE T neutrophils 60 % notest ab. Not Available [facility] ([facility]) [address] [facility], [place], [address], 09/02/2023 11:15:39 09/01/19 24 09/02/2023 CBC WITH DIFFE RENTI AL/PL ATELE T lymphs 32 % notest ab. Not Available [facility] ([facility]) [address] [facility], [place], [address], 09/02/2023 11:15:39 09/01/19 24 09/02/2023 CBC WITH DIFFE RENTI AL/PL ATELE T monocytes 6 % notest ab. Not Available [facility] ([facility]) [address] [facility], [place], [address], 09/02/2023 11:15:39 09/01/19 24 09/02/2023 CBC WITH DIFFE RENTI AL/PL ATELE T eos 1 % notest ab. Not Available [facility] ([facility]) [address] [facility], [place], [address], 09/02/2023 11:15:39 09/01/19 24 09/02/2023 CBC WITH DIFFE RENTI AL/PL ATELE T basos 0 % notest ab. Not Available [facility] ([facility]) [address] [facility], [place], [address], 09/02/2023 11:15:39 09/01/19 24 09/02/2023 CBC WITH DIFFE RENTI AL/PL ATELE T neutrophils (absolute) 6.2 x10e3 /uL 1.4-7. 0 Not Available [facility] ([facility]) [address] [facility], [place], [address], 09/02/2023 11:15:39 09/01/19 24 09/02/2023 CBC WITH DIFFE RENTI AL/PL ATELE T lymphs (absolute) 3.4 x10e3 /uL 0.7-3. 1 above high normal Not Available [facility] ([facility]) [address] [facility], [place], [address], 09/02/2023 11:15:39 09/01/19 24 09/02/2023 CBC WITH DIFFE RENTI AL/PL ATELE T monocytes(ab solute) 0.6 x10e3 /uL 0.1-0. 9 Not Available [facility] ([facility]) [address] [facility], [place], [address], 09/02/2023 11:15:39 09/01/19 24 09/02/2023 CBC WITH DIFFE RENTI AL/PL ATELE T eos (absolute) 0.1 x10e3 /uL 0.0-0. 4 Not Available [facility] ([facility]) [address] [facility], [place], [address], 09/02/2023 11:15:39 09/01/19 24 09/02/2023 CBC WITH DIFFE RENTI AL/PL ATELE T baso (absolute) 0.0 x10e3 /uL 0.0-0. 2 Not Available [facility] ([facility]) [address] [place], [address], 09/02/2023 11:15:39 09/01/19 24 09/02/2023 CBC WITH DIFFE RENTI AL/PL ATELE T immature granulocytes 1 % notest ab. Not Available [facility] ([facility]) [address] [facility], [place], [address], 09/02/2023 11:15:39 09/01/19 24 09/02/2023 CBC WITH DIFFE RENTI AL/PL ATELE T immature grans (abs) 0.1 x10e3 /uL 0.0-0. 1 Not Available [facility] ([facility]) [address] [facility], [place], [address], 09/02/2023 11:15:39 09/01/19 24 09/02/2023 PRESTON+L IPASE amylase 35 U/L 31-110 Not Available [facility] ([facility]) [address] [facility], [place], [address], 09/02/2023 11:15:40 09/01/19 24 09/02/2023 PRESTON+L IPASE lipase 29 U/L 14-72 Not Available [facility] ([facility]) [address] [place], [address], 09/02/2023 11:15:40 09/03/19 24 09/03/2023 pregn eddie test, urine HCG negati ve Not Available In-Office Order Internal Use Only DO Not Attach Compendium DO Not Attach Compendium, Do Not Delete/merge, [id number] 09/03/2023 12:24:53 Result Notes None recorded. Problems Name Problem SNOMED Code Status Onset Date Resolution Date Notes Provider Name and Address Organization Details Recorded Time Multiple environm ental allergie s Active 2017 BRIGIDO Wolf, [place] - [facility] 2 12:48:51 Hypergly cemia 88065152 Completed 201707/02/2018 Oscar Chavarria null, [place] - [facility] 9 11:03:02 Psoriasi s of scalp 816944499 Completed 201702/04/2019 Suzie Arevalo RN [place] [facility] 9 11:06:18 Uncontro lled type 2 diabetes mellitus 904533273 Active 2017 BRIGIDO [place] - [facility] 2 12:48:41 Mixed hyperlip idemia 616369909 Active 2018 Suzie Arevalo RN [place] [facility] 2 12:49:13 Body mass index 40+ - severely obese 958656928 Completed 201811/01/2021 Removal Reason: better [facility] Accountin g,[address] [facility], [place], [address], [place] - [facility] 3 13:06:10 Generali zed anxiety disorder 07743108 Active [address] [facility] Attn: Accountin g,[address] [facility], [place], [address], [place] [facility] 2 11:21:19 Vitamin D deficien cy 49774353 Active 2021 Chuck Craig [facility] Attn: Accountin g,[address] [facility], [place], [address], [place] [facility] 2 11:21:19 Body mass index 40+ - severely obese 711951060 Completed 202105/06/[address] [facility] Attn: Accountin g,[address] [facility], [place], [address], [place] [facility] 3 13:06:10 Hyperpig mentatio n of skin 02853744 Active 2021 Chuck Craig [facility] Attn: Accountin g,[address] [place], [address], [place] [facility] 3 13:05:54 Allergy to fish 247635833 Active 2021 [address] [facility] Attn: Accountin g,[address] [place], [address], [place] [facility] 3 13:05:54 Body mass index 30+ - obesity 992327556 Active 2021 [address] Craig [facility] Attn: Accountin g,[address] [place], [address], [place] [facility] 3 13:05:54 Multiple skin tags on neck 179820925 Completed 202205/06/2022 Suzie Areval[place] RN [place] [facility] 3 12:10:07 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 170866449 Active 2022 [facility] Attn: Accountin g,[address], [place], [address], [place] [facility] 3 13:05:54 Obesity 918525067 Active 2022 CHU [facility]ancockBRENNEN Attn: Accountin g,[address], [place], [address], [place] [facility] 3 12:14:20 Excess pannicul us of abdomen 34907200914 01 Active 2022 [facility] Attn: Accountin g,[address], [place], [address], [place] [facility] 3 12:14:13 Erythema dyschrom icum perstans 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 Active 2022 [facility] Attn: Accountin g,[address], [place], [address], [place] [facility] 4 15:11:19 Steatoti c liver disease 718356647 Active 2022 [facility] Attn: Accountin g,[address], [place], [address], [place] [facility] 4 15:11:19 Abnormal liver function 43589341 Completed 202309/03/2023 Removal Reason: resolved for now LAURA Hancock Attn: Accountin g,[address], [place], [address], [place] [facility] 4 13:04:06 Inguinal lymphade nopathy 885596385 Active [address] [facility] Attn: Nadege aponte,[address] [facility], [place], [address], [place] [facility] 4 15:11:19 Cholelit hiasis without obstruct ion 50425129 Active 20[address] [facility] Attn: Nadege aponte,[address] [facility], [place], [address], [place] [facility] 4 15:11:19 Cystic acne 67616182 Active 20[address] [facility] Attn: Nadege aponte,[address] [facility], [place], [address], [place] [facility] 4 15:11:19 Right upper quadrant pain 951715012 Active 20[address] [facility] Attn: Nadege aponte,[address] [facility], [place], [address], [place] [facility] 4 12:47:31 Anxiety 05206160 Active 2023 [address] [facility] Attn: Nadege aponte,[address] [facility], [place], [address], [place] [facility] 4 13:13:00 Impaired glucose toleranc e 9388088 Completed 10/17/2016 MCKAY Hidalgo [place] [facility] 7 16:17:03 Acute pharyngi tis 927007918 Completed 06/08/2015 Suzie Areval[place] RN [place] [facility] 6 12:45:07 Morbid obesity 845266579 Completed 02/04/2019 Suzie Areval[place] [facility] 9 11:06:43 Allergic rhinitis 83977170 Completed 03/05/2018 Chuck Craig [facility] Attn: Nadege aponte,[address] [facility], [place], [address], [place] [facility] 8 13:06:06 Venous varices 455643830 Active BRIGIDO Wolf, [place] - [facility] 2 12:49:21 Hyperlip idemia 64323283 Completed 03/05/2018 Suzie Arevalo RN null, [place] - [place] 8 11:58:13 Backache 028547118 Completed 03/05/2018 BRIGIDO [place] 8 11:57:58 Chronic dermatit is 96519638 Active BRIGIDO [place] - [place] 2 12:48:32 Asteatos is cutis 53982441 Completed 02/04/2019 BRIGIDO [place] 9 11:06:49 Rhinitis 12213407 Completed 01/02/2017 BRIGIDO Wolf, [facility] 7 13:22:54 Type 2 diabetes mellitus 30852228 Completed 201602/04/2019 Suzie Arevalo RN null, [place] - [place] 9 11:06:32 Dyslipid emia 073544383 Completed 201602/04/2019 BRIGIDO Wolf, [facility] 9 11:06:24 Problem Notes None recorded. Procedures Surgical History Date Name Laterality Status Provider Name and Address Organization Details Recorded Time 05/02/19 23 Skin Tag Removal completed LAURA Hancock Attn: Accounting,[address] [place], [address], [facility] - SI 05/02/2022 16:42:03 04/25/19 23 Date of Last Pap Smear completed Suzie Arevalo RN [place] - [facility] 06/06/2022 12:58:35 04/20/19 15 Tonsillectomy completed Suzie Arevalo RN [place] - [facility] 04/06/2015 11:08:40 Imaging Results None recorded. Procedure Notes None recorded. Medical Equipment None Reported. Allergies Allergen ID Allergen Name Allergen Category Reaction Reaction Severity Criticality Documentation Date Start Date Code Code System Note Provider Name and Address Organization Details Recorded Time 259242 lisinopri l medicatio n flushing moderate Not available 09/16/20192019 86861 RxNorm Chuck Craig, [facility]- Attn: Nadege aponte,[address], [place], [address], [facility] - [facility] 0 12:40:39 Medications Name Sig [...] Ultra-Fin e 1/2 mL 31 gauge x 15/ USE SYRINGE TWICE DAILY 09/06 completed Not Available Not Available Not Available FreeStyle Herrera 14 Day Sensor kit USE DIRECTED 09/06 completed Not Available Not Available Not Available BD Amy 2nd Gen Pen Needle 32 gauge x 532 USE 1 THREE TIMES DAILY 09/06 completed [...] Not Available Not Available FreeStyle Herrera 2 [place] 09/06 completed Not Available Not Available Not Available Trulicity 3 mg/0.5 mL subcutane ous pen injector INJECT 1 SYRINGE SUBCUTAN EOUSLY ONCE A WEEK 04/23 completed Not Available Not Available Not Available Ozempic 1 mg/dose (4 mg/3 mL) subcutane ous pen injector 08/08 completed [facility] prior auth form Not Available Not Available [...] DateTime 09/01/2023 160.02 cm Trevin blas [place] - [facility] 09/01/2023 10:15:18 Date Recorded Body height Body mass index (BMI) Body weight Body temperature Heart rate Systolic blood pressure Diastolic blood pressure Provider Name and Address Organization Details Last Updated DateTime 160.02 cm 37.2 kg/m2 81809.4 g 97.6 [degF] 85 /min 116 mm[Hg] 75 mm[Hg] Suzie Arevalo RN [facility] 4 12:45:12 Date Recorded Body height Body mass index (BMI) Body weight Heart rate Body temperature Systolic blood pressure Diastolic blood pressure Provider Name and Address Organization Details Last Updated DateTime 4 160.02 cm 36.4 kg/m2 68729.2 4 g 79 /min 98 [degF] 112 mm[Hg] 75 mm[Hg] Suzie Arevalo RN [facility] 4 14:58:01 Date Recorded Body height Body mass index (BMI) Body weight Heart rate Body temperature Systolic blood pressure Diastolic blood pressure Provider Name and Address Organization Details Last Updated DateTime 4 160.02 cm 35.1 kg/m2 65223.2 9 g 74 /min 97.6 [degF] 101 mm[Hg] 69 mm[Hg] Suzie Arevalo RN [facility] 4 12:36:24 Date Recorded Body height Body mass index (BMI) Body weight Provider Name and Address Organization Details Last Updated DateTime 02/05/2024 160.02 cm 34.7 kg/m2 75269.1 g Suzie Arevalo RN [facility] 02/05/2024 12:46:27 Social History Question Answer Notes LastModified by Organizat ion Details LastModified Time Tobacco Smoking Status Never [facility]oker [facility]2015 11:08:40 Do You Have An Advance Directive? No [email or web address] Information not available 11/30/2020 Are You Blind Or Do You Have [...] No Information not available 09/16/2019 Are You Deaf Or Do You Have Serious Difficulty Hearing? No Information not available 08/31/2020 What Type Of Diet Are You Following? REGULAR Information not available 04/06/2015 Which Illicit Or Recreational Drugs Have You Used? Krishnadebbie [email or web address] Information not available 10/29/2016 Education 2 Year College Informat ion not available 04/06/2015 Are There Any Guns [...] How Many Children Do You Have? 1 zeke Information not available 11/30/2020 Performs Monthly Self-breast [...] Smoke? No Information no t available 08/31/2020 How Much Tobacco Do You Smoke? No Information not available 04/06/2015 General Stress Level Medium Information not available 04/06/2015 Do You Use Sunscreen Routinely? No Information not available 04/06/2015 Has Tobacco Cessation Counseling Been Provided? No Information not available 05/02/2022 Sex: Female Functional Status Question Answer Note LastModified by Organizat ion Details LastModified Time Do you use any illicit or recreational drugs? No Information not available 08/31/2020 Do you or have you ever used any other forms of tobacco or nicotine? No Information not available 08/31/2020 What is your level of alcohol consumption? None Information not available 04/06/2015 Do you or have you ever used smokeless tobacco? Never used smokeless tobacco Information not available 02/04/2019 Are you currently employed? [facility] Information not available 11/30/2020 Are you able to care for yourself? 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 Never used electronic cigarettes Information not available 02/04/2019 What is your exercise level? Occasional Information not available 04/06/2015 Mental Status Question Answer Note LastModified by Organization D etails LastModified Time Do you feel stressed (tense, restless, nervous, or anxious, or unable to sleep at night)? [id number] Information not available 02/06/2022 Family History Relationship Description Onset Age of [...] Not available 14:38:37 Medical History Condition Response Diabetes Y Skin Problems Y Muscle, Joint, or Bone Problems Y [...] Influenza, split virus, quadrivalent, preservative 8 completed [place] [facility] 03/05/2018 11:57:46 COVID-19, mRNA, LNP-S, PF, 30 mcg/0.3 mL dose 2 completed Suzie Areval[place] [facility] 09/06/2021 12:50:01 COVID-19, mRNA, LNP-S, PF, 30 mcg/0.3 mL dose 2 completed Suzie [place] [facility] 09/06/2021 12:50:18 influenza, unspecified formulation 2 completed [place] [facility] 02/06/2022 10:44:10 Influenza, split virus, quadrivalent, PF 3 completed Suzie [place] [facility] 03/09/2023 12:34:55 Influenza, split virus, trivalent, preservative 4 completed [place] [facility] 03/04/2024 10:30:05 Tdap 5 completed [place] [facility] 08/05/2024 10:08:22 pneumococcal polysaccharide PPV23 9 completed Not Available [facility] 05/07/2019 02:41:28 Influenza, split virus, quadrivalent, PF 9 completed Not Available [facility] 05/07/2019 02:39:21 Influenza, split virus, quadrivalent, PF 5 completed Suzie Arevalo RN null, [facility] 04/06/2015 11:08:40 Tdap 5 completed Yasmeen Ny null, [facility] 06/08/2015 11:20:28 Influenza, split virus, quadrivalent, preservative 6 completed Suzie Arevalo RN null, [facility] 02/08/2016 13:10:18 HPV9 3 completed Chuck Craig [facility] Attn: Accounting,[address] [place], [address], [facility] 03/09/2023 16:14:18 HPV9 4 completed Suzie Arevalo RN null, [facility] 04/21/2023 15:54:10 HPV9 4 completed Chuck Craig [facility] Attn: Accounting,[address] [place], [address], [facility] 09/03/2023 17:55:54 Influenza, split virus, quadrivalent, preservative 7 completed Suzie Arevalo RN null, [facility] 01/02/2017 13:24:13 Past Encounters Encounter ID Performer Location Encounter Start Date Encounter Closed Date Diagnosis/Indication Diagnosis SNOMED-CT Code Diagnosis ICD10 Code Diagnosis Note [id number] Chuck Craig [facility] [address] [place] [address] 04/06/2015 10:47:18 04/10/2015 12:01:25 Acute pharyngitis 809267879 J02.9 [id number] Chuck Craig [facility] [address] [place] [address] 06/08/2015 11:16:42 06/12/2015 13:29:41 Adult health examination 447361964 Z00.00 Morbid obesity 936186027 E66.01 Allergic rhinitis 027644 04 J30.9 Venous varices 419314331 I83.92 [id number] [facility] [address] [place] [address] 4 06/11/2015 10:14:51 06/12/2015 13:43:16 Morbid obesity 191111813 E66.01 [id number] [facility] [address] [place] [address] 4 08/03/2015 10:08:39 08/06/2015 17:57:10 Morbid obesity 743047298 E66.01 13# weight loss in 2 months Diet, weight loss and exercise Monitor for adverse side effects Hyperlipidemia 95221579 E78.5 Discussed test results Increase exercise to 50-60 minutes daily 5-6 times per week [id number] [facility] [address] [place] [address] 4 10/08/2015 12:43:54 10/16/2015 13:10:23 Morbid obesity 948966193 E66.01 7# weight gain in 2 months Diet, weight loss and exercise Monitor for adverse side effects Backache 489544643 M54.9 Hyperlipidemia 41671438 E78.5 Discussed test results Increase exercise to 50-60 minutes daily 5-6 times per week [id number] Salas Velasquez MD [place] [address] [place] [address] 4 11/28/2015 12:37:02 12/10/2015 11:50:21 Morbid obesity 466585894 E66.01 will give Rx for 1 more month if no weight loss will stop Diet, weight loss and exercise Monitor for adverse side effects Chronic dermatitis 98120 007 L30.9 Asteatosis cutis 2943917 0 L85.3 Backache 158654004 M54.9 [id number] [facility] [address] [place] [address] 4 02/08/2016 12:33:25 02/18/2016 13:08:13 Morbid obesity 591471741 E66.01 will give Rx for 1 more month if no weight loss will stop Diet, weight loss and exercise Monitor for adverse side effects Chronic dermatitis 78857 007 L30.9 keep appointmen t with Derm Hyperlipidemia 54449300 E78.5 Increase exercise to 50-60 minutes daily 5-6 times per week Asteatosis cutis 4421307 0 L85.3 Cetaphil products Backache 143104413 M54.9 get xrays done DAIN/stret lisandra/exer cise/weigh t loss Rhinitis 92321249 J00 use Zyrtec daily [id number] [facility] [address] 4 02/11/2016 12:20:28 02/18/2016 13:29:38 Hyperlipidemia 07136184 E78.5 Increase exercise to 50-60 minutes daily 5-6 times per week [id number] [facility] [address] [place] [address] 4 02/20/2016 16:54:19 02/29/2016 12:13:11 Eruption 121706352 R21 OTC ZYRTEC 10mg once daily allergen panel + food mix (seafoods) , environmen sven allergens, perennial grass Multiple environmental allergies 025804791 T78.49XD Allergy to seafood 34526 001 Z91.415 [id number] [facility] [address] [place] [address] 4 03/12/2016 11:55:30 03/19/2016 11:09:10 Morbid obesity 425802251 E66.01 6 pound weight loss since a month ago Diet, weight loss and exercise Monitor for adverse side effects Asteatosis cutis 0394742 0 L85.3 Cetaphil products Eruption 172406954 R21 OTC ZYRTEC 10mg once daily allergen panel + food mix (seafoods) , environmen sven allergens, perennial grass Prediabetes 948886101 R7 3.03 Hyperlipidemia 66828806 E78.5 Increase exercise to 50-60 minutes daily 5-6 times per week [id number] Salas Velasquez MD [facility] [address], [place] [address] 04/09/2016 12:13:53 04/16/2016 17:41:34 Morbid obesity 649682300 E66.01 6 pound 1/4 ounce weight loss since a month ago Diet, weight loss and exercise Monitor for adverse side effects As its the Holidays and patient is not having any side effects will give Rx this month--the n 3 months off Prediabetes 615678583 R7 3.03 [id number] Salas Velasquez MD [facility] [address], [place] [address] 04/18/2016 10:31:37 04/24/2016 10:54:52 Acute vaginitis 95559057 N76.0 Increase Doxyciclin e 100mg once daily to twice daily for the next seven days to cover UTI then return to once daily dosing Dysuria 35623840 R30.0 Prediabetes 197354557 R7 3.03 [id number] Salas Velasquez MD [facility] [address] [place] [address] 06/09/2016 10:56:27 06/17/2016 10:08:56 Acute conjunctivitis 75720342 H10.31 [id number] Salas Velasquez MD [facility] [address] [place] [address] 06/30/2016 12:01:19 07/02/2016 17:53:15 Chronic dermatitis 61058780 L30.9 Seen by derm 02/2016 given about same treatment she had received from this office. SHe wishes to continue treatment. Requesting refills. Asteatosis cutis 5556603 0 L85.3 Cetaphil products Morbid obesity 467031024 E66.01 No weight loss since last visit Diet, weight loss and exercise Backache 643208890 M54.9 Xray shows DJD/stretc gus/exerc ise/weight loss Pain in right knee 43353 72150 96177 M25.561 will send for PT Psoriasis of scalp 15232 8008 L40.9 [id number] Chuck Craig [facility] to [facility] [address] [place] [address] 4 08/20/2016 12:05:58 08/27/2016 17:50:49 Morbid obesity 480262770 E66.01 11 pound weight loss since last visit Diet, weight loss and exercise Hyperlipidemia 11883043 E78.5 Increase exercise to 50-60 minutes daily 5-6 times per week Chronic dermatitis 50799 007 L30.9 Seen by derm 02/2016 given about same treatment she had received from this office. SHe wishes to continue treatment. Requesting refills. Impaired g lucose tolerance 0097808 R73.03 Prediabetes 655564663 R7 3.03 Increased blood pressure 81358382 R03.0 monitor blood pressure Have RN check b/p in 1 month avoid salt weight loss encouraged Allergic rhinitis 174667 04 J30.1 zyrtec samples Pain in right knee 86836 62981 92866 M25.561 Patient to continue PT exercises at home Patient continues to have symptoms despite NSAIDS/PT for 3 1/2 months--kn ee xray essentiall y normal showed minor swelling Take Meloxicam daily for the next couple of months for knee inflammati on [id number] Salas Velasquez MD [facility] [address], [place] [address] 10/17/2016 15:58:37 10/21/2016 16:47:09 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 [address] [place] [address] 10/29/2016 10:37:36 11/04/2016 13:11:34 Lipoma of skin and subcutaneous tissue (excluding face) 849865094 D17.30 [id number] [facility] [address], [place] [address] 01/02/2017 12:13:06 01/10/2017 22:13:03 Morbid obesity 285832378 E66.01 5bpound weight gain since last visit Diet, weight loss and exercise Hyperlipidemia 08101939 E78.5 Increase exercise to 50-60 minutes daily 5-6 times per week Try [place] 3 FA Chronic dermatitis 01754 007 L30.9 Seen by derm 02/2016 given about same treatment she had received from this office. SHe wishes to continue treatment. Requesting refills. Prediabetes 729873244 R7 3.03 will repeat labs at next visit Allergic rhinitis 989763 04 J30.1 Cystic acne 04860237 L70 .0 drink a lot of water with this medication and daily banana Edema of l ower extremity 547344793 R60.0 recommend compressio n hose [id number] Saals Velasquez MD [facility] [address], [place] [address] 03/05/2018 11:48:06 03/16/2018 13:07:08 Adult health examination 155279268 Z00.00 Upper resp iratory infection 47159562 J06.9 Venous varices 249042588 I83.92 Morbid obesity 961135885 E66.01 6# weight loss since last visit Diet, weight loss and exercise Chronic dermatitis 00321 007 L30.9 Seen by derm 02/2016 given about same treatment she had received from this office. SHe wishes to continue treatment. Requesting refills. Dyslipidemia 499692858 E 78.5 Psoriasis of scalp 13975 8008 L40.9 Hyperglycemia 12813028 R 73.9 accu check random 240 fasting Acute fron sven sinusitis 81421367 J01.10 Multiple environmental allergies 743299737 T78.49XD Chronic back pain 012876 002 G89.29 Headache 40055295 R51 suspect migraines Uncontroll ed type 2 diabetes mellitus 041718433 E11.65 [id number] Salas Velasquez MD [facility] [address], [place] [address] 07/02/2018 10:45:47 07/02/2018 17:36:52 Uncontrolled type 2 diabetes mellitus 035100884 E11.65 Acute fron sven sinusitis 27245145 J01.10 Multiple environmental allergies 627481513 T78.49XD continue otc Psoriasis of scalp 33571 8008 L40.9 Chronic dermatitis 81471 007 L30.9 Seen by derm 02/2016 given about same treatment she had received from this office. SHe wishes to continue treatment. Requesting refills. Prehypertension 72144972 9 R03.0 reduce salt in your diet 50-60 minutes of aerobic physical activity 5-6 time per week lose weight 5-20% of current body weight if B/P remains elevated will start B/P meds Body mass index 40+ - severely obese 785292888 Z68.41 bmi 42 Mixed hyperlipidemia 267 788209 E78.2 Avoid all breads, potatoes, cereal, pasta, rice, margarine, refined sugars, milk yogurt, ice cream, juices, soda (including diet), beer, and manmade or manufactur ed desserts. Enjoy steak, fish, chicken (no skin), pork, butter, vegetables , beans, nuts, whole eggs, cheese (low fat or skim), cream in your coffee. Depression screening 171 050613 Z13.31 negative [id number] Salas Velasquez MD [facility] [address] [place] [address] 4 01/13/2019 12:45:24 01/13/2019 18:11:52 Acute frontal sinusitis 79570618 J01.10 Cough 70167104 R05 Multiple environmental allergies 585592599 T78.49XD get otc antihistam ine and start [id number] Salas Velasquez MD [facility] [address] [place] [address] 4 02/04/2019 10:55:51 02/04/2019 17:01:53 Uncontrolled type 2 diabetes mellitus 387762300 E11.65 uncontroll edfasting 736PA5U 9.6will continue Metformin bid started at [facility] Mixed hyperlipidemia 267 280413 E78.2 Avoid all breads, potatoes, cereal, pasta, rice, margarine, refined sugars, milk yogurt, ice cream, juices, soda (including diet), beer, and manmade or manufactur ed desserts. Enjoy steak, fish, chicken (no skin), pork, butter, vegetables , beans, nuts, whole eggs, cheese (low fat or skim), cream in your coffee. Multiple environmental allergies 946339389 T78.49XD continue otc Chronic dermatitis 96528 007 L30.9 Seen by derm 02/2016 given about same treatment she had received from this office. SHe wishes to continue treatment. Requesting refills. Prehypertension 91212557 9 R03.0 reduce salt in your diet 50-60 minutes of aerobic physical activity 5-6 time per week lose weight 5-20% of current body weight will start Lisinopril 2.5mg for kidney protection today Body mass index 30+ - obesity 120377355 Z68.39 BMI 39Healthy body weight 105-135 Administra tion of influenza vaccine 06839790 Z23 [id number] Salas Velasquez MD [facility] [address] [place] [address] 08/17/2019 11:30:26 08/18/2019 11:27:38 Uncontrolled type 2 diabetes mellitus 563129248 E11.65 uncontroll edshe forgets to take evening qvvuBO1D 8.3will change Metformin 1000mg bid to Metformin ER 1000mg (2) Mixed hyperlipidemia 267 181767 E78.2 Avoid all breads, potatoes, cereal, pasta, rice, margarine, refined sugars, milk yogurt, ice cream, juices, soda (including diet), beer, and manmade or manufactur ed desserts. Enjoy steak, fish, chicken (no skin), pork, butter, vegetables , beans, nuts, whole eggs, cheese (low fat or skim), cream in your coffee. Multiple environmental allergies 855502786 T78.49XD continue otc Body mass index 30+ - obesity 092678153 Z68.39 BMI 39Healthy body weight 105-135 Chronic dermatitis 83112 007 L30.9 Seen by derm 02/2016 given about same treatment she had received from this office. SHe wishes to continue treatment. Requesting refills. Prehypertension 84454767 9 R03.0 reduce salt in your diet 50-60 minutes of aerobic physical activity 5-6 time per week lose weight 5-20% of current body weight will start Lisinopril 2.5mg for kidney protection today Headache 13937312 R51 suspect migrainesC T of Head 01/2019 normal Anxiety 20530755 F41.9 psychother apist listauto relaxation exerciseRX for prn use Acute fron sven sinusitis 53888354 J01.10 [id number] Salas Velasquez MD [facility] [address] [place] [address] 09/16/2019 12:28:24 09/19/2019 10:06:07 Generalized anxiety disorder 07568433 F41.1 recommend psychother apist visits-pt will check with her 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 wants to diamond picker Rx at office Body mass index 40+ - severely obese 266841087 Z68.41 bmi 42 [id number] Salas Velasquez MD [facility] [address] [place] [address] 10/14/2019 10:34:20 10/17/2019 06:38:07 Generalized anxiety disorder 07313150 F41.1 recommend psychother apist visits-pt will check with her 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 wants to diamond picker Rx at officepati ent fees better agrees to increasing dose of Escitalopr am 10mg to 20mg elliottysluke is aware will not refill klonopin for ongoing use Body mass index 40+ - severely obese 704015005 Z68.41 bmi 42 [id number] Salas Velasquez MD [facility] [address] [place] [address] 10/24/2019 12:45:53 10/25/2019 06:47:00 Acute sinusitis 14042050 J01.90 [id number] Salas Velasquez MD [facility] [address] [place] [address] 11/18/2019 14:10:09 11/21/2019 07:27:44 Uncontrolled type 2 diabetes mellitus 594386355 E11.65 uncontroll edshe forgets to take evening doseLast HA1C 8.3will continue Metformin ER 1000mg (2) Prehypertension 54308878 9 R03.0 reduce salt in your diet 50-60 minutes of aerobic physical activity 5-6 time per week lose weight 5-20% of current body weight patient stooped Lisinopril 2.5mg for kidney protection about a month ago-had reaction Mixed hyperlipidemia 267 638664 E78.2 Avoid all breads, potatoes, cereal, pasta, rice, margarine, refined sugars, milk yogurt, ice cream, juices, soda (including diet), beer, and manmade or manufactur ed desserts. Enjoy steak, fish, chicken (no skin), pork, butter, vegetables , beans, nuts, whole eggs, cheese (low fat or skim), cream in your coffee. Multiple environmental allergies 830296238 T78.49XD continue otc Body mass index 30+ - obesity 084655069 Z68.39 BMI 39Healthy body weight 105-135 Chronic dermatitis 67662 007 L30.9 Seen by derm 02/2016 given about same treatment she had received from this office. SHe wishes to continue treatment. Still has at home aware not to use in large quantities Headache 83307342 R51 suspect migrainesC T of Head 01/2019 normal Generalize d anxiety disorder 83526847 F41.1 recommend psychother apist visits-pt will check with her job on thisPatien t stopped both Escitalopr am and Clonazepam two weeks ago when she found out she was 7 [id number] Salas Velasquez MD [facility] [address] [place] [address] 06/06/2020 12:16:58 06/07/2020 14:23:37 Mixed hyperlipidemia 969675438 E78.2 Avoid all breads, potatoes, cereal, pasta, rice, margarine, refined sugars, milk yogurt, ice cream, juices, soda (including diet), beer, and manmade or manufactur ed desserts. Enjoy steak, fish, chicken (no skin), pork, butter, vegetables , beans, nuts, whole eggs, cheese (low fat or skim), cream in your coffee. Body mass index 40+ - severely obese 052666145 Z68.41 bmi 42 Prehypertension 02191483 9 R03.0 reduce salt in your diet 50-60 minutes of aerobic physical activity 5-6 time per week lose weight 5-20% of current body weight Chronic dermatitis 34730 007 L30.9 Seen by derm 02/2016 given about same treatment she had received from this office. SHe wishes to continue treatment. Has refills. Stable at present time. Uncontroll ed type 2 diabetes mellitus 034289024 E11.65 uncontroll edshe forgets to take evening doseLast HA1C 8.3will restart Metformin ER 1000mg (2) [id number] Salas Velasquez MD [facility] [address], [place] [address] 07/06/2020 15:11:23 07/09/2020 14:05:28 Uncontrolled type 2 diabetes mellitus 671927248 E11.65 uncontroll edshe forgets to take evening doseLast HA1C 8.3will restart Metformin ER 1000mg (2) Mixed hyperlipidemia 267 305077 E78.2 Avoid all breads, potatoes, cereal, pasta, rice, margarine, refined sugars, milk yogurt, ice cream, juices, soda (including diet), beer, and manmade or manufactur ed desserts. Enjoy steak, fish, chicken (no skin), pork, butter, vegetables , beans, nuts, whole eggs, cheese (low fat or skim), cream in your coffee. [id number] Salas Velasquez MD [facility] [address], [place] [address] 08/31/2020 16:16:37 09/03/2020 16:30:16 Uncontrolled type 2 diabetes mellitus 649272346 E11.65 uncontroll ed she forgets to take evening dose Last HA1C 6.4 on 07/06/2020 will continue Metformin ER 1000mg (2) will add Tradjenta 5mg daily pt is not BF Mixed hyperlipidemia 267 783156 E78.2 07/06/2020 [id number] Trig 441 HDL 32 LDL 150 Avoid all breads, potatoes, cereal, pasta, rice, margarine, refined sugars, milk yogurt, ice cream, juices, soda (including diet), beer, and manmade or manufactur ed desserts. Enjoy steak, fish, chicken (no skin), pork, butter, vegetables , beans, nuts, whole eggs, cheese (low fat or skim), cream in your coffee. Body mass index 40+ - severely obese 451309589 Z68.41 bmi 42 Prehypertension 44134802 9 R03.0 reduce salt in your diet 50-60 minutes of aerobic physical activity 5-6 time per week lose weight 5-20% of current body weight Chronic dermatitis 74490 007 L30.9 Seen by derm 02/2016 given about same treatment she had received from this office. SHe wishes to continue treatment. Has refills. Stable at present time. 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 [id number] Salas Velasquez MD [facility] [address] [place] [address] 11/30/2020 12:06:22 12/05/2020 06:56:56 Uncontrolled type 2 diabetes mellitus 994977542 E11.65 she forgets to take evening dose Last HA1C 6.4 on 07/06/2020 will continue Metformin ER 1000mg (2)Jardian ce was not coveredPat ient has been using Humulin N NPH 25 units BIDBS are better 110-160 range Mixed hyperlipidemia 267 309744 E78.2 07/06/2020 [id number] Trig 441 HDL 32 LDL 150 Avoid all breads, potatoes, cereal, pasta, rice, margarine, refined sugars, milk yogurt, ice cream, juices, soda (including diet), beer, and manmade or manufactur ed desserts. Enjoy steak, fish, chicken (no skin), pork, butter, vegetables , beans, nuts, whole eggs, cheese (low fat or skim), cream in your coffee. Body mass index 40+ - severely obese 057845949 Z68.41 bmi 42 Prehypertension 44527419 9 R03.0 reduce salt in your diet 50-60 minutes of aerobic physical activity 5-6 time per week lose weight 5-20% of current body weight Chronic dermatitis 10830 007 L30.9 Seen by derm 02/2016 given about same treatment she had received from this office. SHe wishes to continue treatment. Has refills. Stable at present time. Depression screening 171 Z13.31 positive patient on sertraine 50mg daily started per her OB/gynneed s refills of sertraline from this office as she no longer seeing OB Anxiety 55648482 F41.9 psychother apist listauto relaxation exerciseRX for prn use Psoriasis of scalp 48143 8008 L40.9 [id number] Salas Velasquez MD [facility] [address] [place] [address] 12/17/2020 12:10:32 12/18/2020 06:02:04 COVID-19 589891055 U07.1 [id number] Salas Velasquez MD [facility] [address] [place] [address] 07/25/2021 16:02:46 07/26/2021 15:40:58 Uncontrolled type 2 diabetes mellitus 922061174 E11.65 HA1C 8.5 [id number] 6.4 on 07/06/2020 will continue Metformin 1000mg 1 po bidwill add Ozempic 0.25mgMoni tor bs readings before and after meals (2Hrs) keep log Mixed hyperlipidemia 267 540626 E78.2 07/06/2020 [id number] Trig 441 HDL 32 LDL 150 Avoid all breads, potatoes, cereal, pasta, rice, margarine, refined sugars, milk yogurt, ice cream, juices, soda (including diet), beer, and manmade or manufactur ed desserts. Enjoy steak, fish, chicken (no skin), pork, butter, vegetables , beans, nuts, whole eggs, cheese (low fat or skim), cream in your coffee. Generalize d anxiety disorder 95710780 F41.1 ANDIE-7 Will re-start treatmentE scitalopra m 20mg dailyKlono pin for severe anxiety symptomsre commend psychother apist visits-amy l with problems or rthoughts of harming self Multiple environmental allergies 017327740 T78.49XD continue otc antihistam ine Body mass index 40+ - severely obese 803069582 Z68.41 bmi 37.2 Healthy Weight: 5'3= 107-140 lbs Chronic dermatitis 86466 007 L30.9 Seen by derm 02/2016 given about same treatment she had received from this office. SHe wishes to continue treatment. Depression screening 171 262395 Z13.31 negative Hyperpigme ntation of skin 19175911 L81.9 Furuncle of buttock 1243 0003 L02.32 [id number] Salas Velasquez MD [facility] [address] [place] [address] 07/26/2021 10:25:41 08/12/2021 16:22:57 Uncontrolled type 2 diabetes mellitus 993913586 E11.65 HA1C 8.5 [id number] 6.4 on 07/06/2020 will continue Metformin 1000mg 1 po bidwill add Ozempic 0.25mgMoni tor bs readings before and after meals (2Hrs) keep log Mixed hyperlipidemia 267 714683 E78.2 07/06/2020 [id number] Trig 441 HDL 32 LDL 150 Avoid all breads, potatoes, cereal, pasta, rice, margarine, refined sugars, milk yogurt, ice cream, juices, soda (including diet), beer, and manmade or manufactur ed desserts. Enjoy steak, fish, chicken (no skin), pork, butter, vegetables , beans, nuts, whole eggs, cheese (low fat or skim), cream in your coffee. [id number] Saals Velasquez MD [facility] [address] [place] [address] 09/06/2021 12:40:16 09/09/2021 14:59:34 Generalized anxiety disorder 35007086 F41.1 ANDIE-7 --07/20 1 betterWihui continue treatmentE scitalopra m 20mg dailyKlono pin for severe anxiety symptomsre commend psychother apist visits-amy l with problems or rthoughts of harming self Mixed hyperlipidemia 267 062268 E78.2 07/06/2020 [id number] Trig 441 HDL 32 LDL 150 07/26/2021 [...] try Atorvastat in 20mg daily and LSM [id number] Salas Velasquez MD [facility] [address] [place] [address] 11/01/2021 12:33:34 11/04/2021 11:16:46 Uncontrolled type 2 diabetes mellitus 984686678 E11.65 HA1C 7.HA1C 6.4 on 07/06/2020 will continue Metformin 1000mg 1 po bidwill continue Ozempic 0.25mgMoni tor bs readings before and after meals (2Hrs) keep log Mixed hyperlipidemia 267 998457 E78.2 07/06/2020 [id number] Trig 441 HDL 32 LDL 150 07/26/2021 [...] daily and LSM Generalize d anxiety disorder 64493847 F41.1 ANDIE-7 --/ 1 betterWill continue treatmentE scitalopra m 20mg dailyKlono pin for severe anxiety symptomsre commend psychother apist visits-amy l with problems or thoughts of harming self Multiple environmental allergies 876434118 T78.49XD continue otc antihistam ine Body mass index 40+ - severely obese 765367865 Z68.41 bmi 37.2 Healthy Weight: 5'3= 107-140 lbs Chronic dermatitis 13414 007 L30.9 Seen by derm 02/2016 given about same treatment she had received from this office. SHe wishes to continue treatment. Hyperpigme ntation of skin 01429406 L81.9 continue trilumause daily sunscreen Furuncle of buttock 1243 0003 L02.32 Depression screening 171 002902 Z13.31 negative Cystic acne 41097105 L70 .0 drink a lot of water with this medication and daily banana Fatigue 06700017 R53.83 [id number] Salas Velasquez MD [facility] [address] [place] [address] 02/06/2022 10:29:05 02/10/2022 14:44:03 Mixed hyperlipidemia 757982882 E78.2 07/06/2020 [id number] Trig 441 HDL 32 LDL 150 07/26/2021 [...] LSM Uncontroll ed type 2 diabetes mellitus 614479553 E11.65 HA1C 7.1HA1C 6.4 on 07/06/2020 will continue Metformin 1000mg 1 po bidIncreas e Ozempic 1mg once weeklyMoni tor bs readings before and after meals (2Hrs) keep log Generalize d anxiety disorder 17343443 F41.1 Will continue treatmentE scitalopra m 20mg dailyKlono pin for severe anxiety symptomsre commend psychother apist visits-amy l with problems or thoughts of harming self Multiple environmental allergies 569293093 T78.49XD igE 645 plus multiple specific environmen sven allergensc ontinue otc antihistam ine Body mass index 40+ - severely obese 812626974 Z68.41 bmi 39Healthy Weight: 5'3= 107-140 lbs Chronic dermatitis 52893 007 L30.9 Seen by derm 02/2016 given about same treatment she had received from this office. SHe wishes to continue treatment. Hyperpigme ntation of skin 67105794 L81.9 continue trilumause daily sunscreen Cystic acne 21615994 L70 .0 drink a lot of water with this medication and daily banana Depression screening 171 820810 Z13.31 PHQ2-9 negative Mental hea lt screening 258544970 Z13.39 ANDIE-7 negative Acute sinusitis 54159607 J01.90 Acute pharyngitis 486561 003 J02.9 Allergy to fish 32111984 2 Z91.013 + allergen profile to fishGets rash [id number] Sunil Hearn MD [facility] [address] [place] [address] 02/24/2022 11:58:05 02/25/2022 13:30:52 Acute urinary tract infection 861227955 N39.0 Body mass index 30+ - obesity 928873244 Z68.39 BMI 38Healthy body weight 105-135 Depression screening 171 419338 Z13.31 PHQ2-9 negative Mental hea lth screening 270563842 Z13.39 ANDIE-7 negative [id number] Salas Velasquez MD [facility] [address] [place] [address] 4 02/27/2022 11:01:08 02/28/2022 11:04:03 Acute pharyngitis 839604822 J02.9 Influenza A virus present 9382105697 08 J09.X2 [id number] Salas Velasquez MD [facility] [address] 4 05/02/2022 15:38:01 05/06/2022 08:27:26 Venous varices 684372451 I83.92 Multiple s kin tags on neck 541321272 L91.8 removed 3 skin tags from neck without complicati ons Varicose v ein of lower limb with phlebitis 173644896 I83.10 - Walk around, and try not to sit or informix developer one place for a 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 every 6 hrs as necessary Depression screening 171 464707 Z13.31 PHQ2-9 negative Mental hea lth screening 706164618 Z13.39 ANDIE-7 negative [id number] Salas Velasquez MD [facility] [address] [place] [address] 05/06/2022 12:10:55 05/07/2022 12:58:03 Acute bilateral otitis media 949618638 H66.93 Acute ethm oidal sinusitis 79460560 J01.20 Body mass index 30+ - obesity 175839867 Z68.39 BMI 37Healthy body weight 105-135 Depression screening 171 267269 Z13.31 PHQ2-9 negative Mental hea lth screening 836782357 Z13.39 ANDIE-7 negative [id number] Salas Velasquez MD [facility] [address] [place] [address] 06/06/2022 12:29:56 06/09/2022 09:21:50 Uncontrolled type 2 diabetes mellitus 990460895 E11.65 HA1C 7.3 [id number] 6.4 on 07/06/2020 will continue Metformin 1000mg 1 po bidIncreas e Ozempic 1mg once weekly to 1.5mg once weeklyMoni tor bs readings before and after meals (2Hrs) keep log Mixed hyperlipidemia 267 256958 E78.2 07/06/2020 [id number] Trig 441 HDL 32 LDL 150 07/26/2021 [...] Atorvastat in 20mg daily and LSM Obesity 706087081 E66.9 BMI 37Healthy body weight 105-135 Body mass index 30+ - obesity 650717478 Z68.39 BMI 37Healthy body weight 105-135 Generalize d anxiety disorder 64195138 F41.1 Will continue treatmentE scitalopra m 20mg dailyKlono pin for severe anxiety symptomsre commend psychother apist visits-amy cindy with problems or thoughts of harming self Chronic dermatitis 18509 007 L30.9 Seen by derm 02/2016 given about same treatment she had received from this office. SHe wishes to continue treatment. Cystic acne 66505940 L70 .0 drink a lot of water with this medication and daily banana Multiple environmental allergies 033483808 T78.49XD igE 645 plus multiple specific environmen sven allergensc ontinue otc antihistam ine Allergy to fish 00704904 2 Z91.013 + allergen profile to fishGets rash Hyperpigme ntation of skin 44471267 L81.9 continue trilumause daily sunscreen Depression screening 171 648419 Z13.31 PHQ2-9 negative Mental hea [facility] screening 920574186 Z13.39 ANDIE-7 negative Vitamin D deficiency 347 13512 E55.9 Vitamin D 11.3Start Rx Vitamin D2 79487 IU once weekly for 12 weeksonce you complete RX buy otc vitamin D3 1000 IU once daily Candidal intertrigo 2661 59683 B37.2 nystatin Excess morales niculus of abdomen 9486392720 101 E65 Venous varices 110142712 I83.92 weight losselevat e legssuppor t hoseibupro fen prn Varicose v ein of lower limb with phlebitis 808761875 I83.10 - Walk around, and try not to sit or informix developer one place for a 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 every 6 hrs as necessary Acute fron sven sinusitis 84327782 J01.10 [id number] Salas Velasquez MD [facility] [address], [place] [address] 06/13/2022 10:30:08 06/19/2022 09:35:48 Mixed hyperlipidemia 844947051 E78.2 07/06/2020 [id number] Trig 441 HDL 32 LDL 150 07/26/2021 [...] try Atorvastat in 20mg daily and LSM [id number] Salas Velasquez MD [facility] [address], [place] [address] 06/20/2022 11:46:01 06/23/2022 15:03:46 Acute urinary tract infection 133305071 N39.0 UA dip + nitrates Burn of skin 395175714 T 30.0 Body mass index 30+ - obesity 074819171 Z68.39 BMI 37.7Health y body weight 105-474 [id number] Salas Velasquez MD [facility] [address] [place] [address] 08/14/2022 12:22:26 08/15/2022 11:44:01 Obesity 987272770 E66.9 BMI 37.4Health y body weight 105-135 Acute conj unctivitis of left eye 2822491067 44513 H10.32 Depression screening 171 409517 Z13.31 PHQ2-9 negative Mental hea lth screening 416772365 Z13.39 ANDIE-7 negative [id number] Salas Velasquez MD [facility] [address] [address] 08/27/2022 11:10:48 08/29/2022 18:13:08 Allergic reaction 282528562 T78.40XA Had popcorn at the moviesNo new detergents , lotions, medicinesN o other family member with rashNo respirator y symptoms Pruritic rash 23447495 L 28.2 Body mass index 30+ - obesity 486116417 Z68.39 BMI 37.4Health y body weight 105-135 Depression screening 171 247296 Z13.31 PHQ2-9 negative Mental hea lth screening 977987936 Z13.39 ANDIE-7 negative 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 seen by dermatolog ist in 2016given TCE1%Doxyc ycline 100mg bid #30 [id number] Salas Velasquez MD [facility] [address], [place] [address] 09/23/2022 11:07:35 09/25/2022 13:21:26 Body mass index 30+ - obesity 514048528 Z68.39 BMI 38.3Health y body weight 105-135 Urinary symptoms 1400224 08 R39.9 Microscopic hematuria 19 6090503 R31.29 Depression screening 171 364205 Z13.31 PHQ2-9 negative Mental hea lth screening 856427185 Z13.39 ANDIE-7 negative [id number] Salas Velasquez MD [facility] [address] [place] [address] 10/03/2022 11:55:36 10/07/2022 08:33:38 Mixed hyperlipidemia 812963350 E78.2 07/06/2020 [id number] Trig 441 HDL 32 LDL 150 07/26/2021 [...] LSM Uncontroll ed type 2 diabetes mellitus 985435329 E11.65 HA1C 8.5 [id number] 6.4 on 07/06/2020 will continue Metformin 1000mg 1 po bidcontinu e trulicity but increaseMo nitor bs readings before and after meals (2Hrs) keep log 06/13/2022 BUN 13creat 0.41eGFR 134 Generalize d anxiety disorder 97356588 F41.1 Will continue treatmentE scitalopra m 20mg dailyKlono pin for severe anxiety symptomsre commend psychother apist visits-amy l with problems or thoughts of harming self Obesity 091888281 E66.9 BMI 38.3Health y body weight 105-135 Body mass index 30+ - obesity 494702372 Z68.39 BMI 38.3Health y body weight 105-135 Chronic dermatitis 52846 007 L30.9 Seen by derm 02/2016 given about same treatment she had received from this office. SHe wishes to continue treatment. 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 every 6 hrs as necessary Venous varices 868094626 I83.92 weight losselevat e legssuppor t hoseibupro fen prn Depression screening 171 800941 Z13.31 PHQ2-9 negative Mental hea [facility] screening 733363786 Z13.39 ANDIE-7 negative [id number] Salas Velasquez MD [facility] [address] [place] [address] 12/11/2022 10:13:00 12/12/2022 13:02:56 Pain in right heel 4219557506 562569 M79.671 Generalize d anxiety disorder 11494749 F41.1 Will continue treatmentE scitalopra m 20mg dailyKlono pin for severe anxiety symptomsre commend psychother apist visits-amy l with problems or thoughts of harming self Body mass index 30+ - obesity 427460575 Z68.39 BMI 38.4Health y body weight 105-366 [id number] Salas Velasquez MD [facility] [address] [place] [address] 03/09/2023 12:30:17 03/18/2023 11:17:40 Urinary symptoms 330897203 R39.9 Active or passive immunization 136943164 Z23 Dysuria 86318759 R30.0 self swab Depression screening 171 264713 Z13.31 PHQ2-9 negative Mental hea [facility] screening 704372275 Z13.39 ANDIE-7 negative [id number] Salas Velasquez MD [facility] [address], [place] [address] 04/21/2023 12:34:51 04/23/2023 14:28:39 Uncontrolled type 2 diabetes mellitus 182577272 E11.65 HA1C 9.6 worsewill continue Metformin 1000mg 1 po bidstop 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 bs readings before and after meals (2Hrs) keep log 06/13/2022 BUN 13creat 0.41eGFR 134 Generalize d anxiety disorder 91880362 F41.1 Will continue treatmentE scitalopra m 20mg dailyKlono pin for severe anxiety symptomsre commend psychother api visits-amy l with problems or thoughts of harming self Mixed hyperlipidemia 267 148250 E78.2 07/06/2020 [id number] Trig 441 HDL 32 LDL 150 07/26/2021 [...] Atorvastat in 20mg daily and LSM Obesity 106456157 E66.9 BMI 38.8Health y body weight 105-135 Body mass index 30+ - obesity 758254909 Z68.39 BMI 38.8Health y body weight 105-135 Chronic dermatitis 75890 007 L30.9 Seen by derm 02/2016 given about same treatment she had received from this office. SHe wishes to continue treatment. Cystic acne 65513445 L70 .0 drink a lot of water with this medication and daily banana Multiple environmental allergies 202811048 T78.49XD igE 645 plus multiple specific environmen sven allergensc ontinue otc antihistam ine Excess morales niculus of abdomen 6244229896 101 E65 Allergy to fish 00326033 2 Z91.013 + allergen profile to fishGets rash Vitamin D deficiency 347 72748 E55.9 11/01/2021 Vitamin D 11.3 buy otc vitamin D3 1000 IU once daily Hyperpigme ntation of skin 78321140 L81.9 continue trilumause daily sunscreenr eferring to derm Venous varices 782817373 I83.92 weight losselevat e legssuppor t hoseibupro fen prn Depression screening 171 000597 Z13.31 PHQ2-9 negative Mental hea lth screening 489730136 Z13.39 ANDIE-7 negative Active or passive immunization 481846265 Z23 Cholelithi asis without obstruction 68237425 K80.20 wants GB removal Steatotic liver disease 194963106 K76.0 04/15/2023 CT abd/pelvis w/con shows fatty liver, Hepatomega ly, yessica inguinal lymphadeno harmeet, cholelithi asis and R enlarged ovary. Abnormal l iver function 06440191 K76.89 04/15/2023 CT abd/pelvis w/con shows fatty liver, Hepatomega ly, yessica inguinal lymphadeno harmeet, cholelithi asis and R enlarged ovary. Inguinal lymphadenopathy 444704649 R59.0 04/15/2023 CT abd/pelvis w/con shows fatty liver, Hepatomega ly, yessica inguinal lymphadeno harmeet, cholelithi asis and R enlarged ovary. Anxiety 56614504 F41.9 psychother apist listauto relaxation exerciseRX for prn use Acute urin wang tract infection 214833240 N39.0 [id number] Salas Velasquez MD [facility] [address] [place] [address] 05/26/2023 10:56:48 05/29/2023 10:51:17 Urinary symptoms 615754726 R39.9 Dysuria 67677991 R30.0 Depression screening 171 059344 Z13.31 PHQ2-9 negative Mental hea lth screening 575334299 Z13.39 ANDIE-7 negative Postviral cough 46945613 4 R05.3 [id number] Salas Velasquez MD [facility] [address] [place] [address] 08/20/2023 11:47:59 08/24/2023 15:31:00 Mixed hyperlipidemia 216385238 E78.2 07/06/2020 [id number] Trig 441 HDL 32 LDL 150 07/26/2021 [...] LSM Body mass index 30+ - obesity 447944458 Z68.39 BMI 38.3Health y body weight 105-135 Uncontroll ed type 2 diabetes mellitus 735034622 E11.65 HA1C 9.6 worsewill continue Metformin 1000mg 1 po bidstop trulicityi ncrease mounjaro 5 mg once weekly to 7.5mg once weekly MounjaroMo nitor bs readings before and after meals (2Hrs) keep log 06/13/2022 BUN 13creat 0.41eGFR 134 04/21/2023 BUN 13Creat 0.55eGFR 124 Generalize d anxiety disorder 52318833 F41.1 Will continue treatmentE scitalopra m 20mg dailyKlono pin for severe anxiety symptomsre commend psychother apist visits-amy l with problems or thoughts of harming self Multiple environmental allergies 409206492 T78.49XD igE 645 plus multiple specific environmen sven allergensc ontinue otc antihistam ine Obesity 028279573 E66.9 BMI 38.8Health y body weight 105-135 Chronic dermatitis 09949 007 L30.9 Seen by derm 02/2016 given about same treatment she had received from this office. SHe wishes to continue treatment. Cystic acne 11469479 L70 .0 drink a lot of water with this medication and daily bananaderm will be starting accutane Excess morales niculus of abdomen 2204329420 101 E65 Has a rash itchysweat y red wet Allergy to fish 93931460 2 Z91.013 + allergen profile to fishGets rash Vitamin D deficiency 347 63748 E55.9 11/01/2021 Vitamin D 11.31/05/22 024 Vitamin D <4.0buy otc vitamin D3 1000 IU once daily Hyperpigme ntation of skin 25984831 L81.9 continue triluma-brush s from [place] daily sunscreenr eferred to dermderm to start accutane Venous varices 555002596 I83.92 weight losselevat e legssuppor t hoseibupro fen prn Steatotic liver disease 122096716 K76.0 04/15/2023 CT abd/pelvis w/con shows fatty liver, Hepatomega ly, yessica inguinal lymphadeno harmeet, cholelithi asis and R enlarged ovary. Depression screening 171 193230 Z13.31 PHQ2-9 negative Mental hea lth screening 315706136 Z13.39 ANDIE-7 negative Cholelithi asis without obstruction 49552535 K80.20 wants GB removalsee n surgeonwil l be having removal Abnormal l iver function 06207071 K76.89 04/15/2023 CT abd/pelvis w/con shows fatty liver, Hepatomega ly, yessica inguinal lymphadeno harmeet, cholelithi asis and R enlarged ovary. Anxiety 52947160 F41.9 psychother apist listauto relaxation exerciseRX for prn use Right uppe r quadrant pain 731705128 R10.11 [id number] Salas Velasquez MD [facility] [address], [place] [address] 09/01/2023 10:14:59 09/09/2023 15:32:26 Mixed hyperlipidemia 675757553 E78.2 07/06/2020 [id number] Trig 441 HDL 32 LDL 150 07/26/2021 [...] and LSM Right uppe r quadrant pain 697050155 R10.11 [id number] Salas Velasquez MD [facility] [address], [place] [address] 09/03/2023 12:13:17 10/05/2023 10:44:57 Obesity 378520321 E66.9 BMI 37.2Health y body weight 105-135 Body mass index 30+ - obesity 926044182 Z68.39 BMI 37.2Health y body weight 105-135 Pre-surger y evaluation 615917740 Z01.818 32 y/o HF presents for medical clearance for gall bladder surgery on 09/2023. The patient had multiple chronic medical problems: DM2, HPLD, ANDIE; BMI 30+, Hepatic steatosis. Her last HA1C on 08/20/2023 was 6.6. The patient has bee losing weight and exercising . She is not a smoker or uses illicit drugs. Active or passive immunization 534344047 Z23 Type 2 ana betes mellitus 68086084 E11.9 08/20/2023 HA1c 6.6 Mixed hyperlipidemia 267 926964 E78.2 07/06/2020 [id number] Trig 441 HDL 32 LDL 150 07/26/2021 [...] try Atorvastat in 20mg daily and LSM [id number] Salas Velasquez MD [facility] [address] [place] [address] 11/02/2023 14:48:03 11/04/2023 16:21:33 Body mass index 30+ - obesity 387140204 Z68.39 The patient was started on phentermin e tabs 08/20/2023 to aid with her appetite/w eight loss. Back in August the patient weighed in at 216 She is 205 today. She continues to monitor diet and exercising .BMI 36.4Health y body weight 105-135 Obesity 036130188 E66.9 The patient was started on phentermin e tabs 08/20/2023 to aid with her appetite/w eight loss. Back in August the patient weighed in at 216 She is 205 today. She continues to monitor diet and exercising .BMI 36.4Health y body weight 105-135 Chronic dermatitis 20642 007 L30.9 Seen by derm 02/2016 given about same treatment she had received from this office. SHe wishes to continue treatment. Mental hea lt screening 064425886 Z13.39 ANDIE-7 negative [id number] Salas Velasquez MD [facility] [address], [place] [address] 12/14/2023 12:34:48 12/17/2023 11:42:04 Body mass index 30+ - obesity 612977771 Z68.39 The patient was started on phentermin [...] I 35.1Health y body weight 105-135 Obesity 813074769 E66.9 BMI 35.1Health y body weight 105-077 [id number] Salas Velasquez MD [facility] [address] [place] [address] 02/05/2024 12:44:32 02/12/2024 15:37:33 Uncontrolled type 2 diabetes mellitus 470742785 E11.65 HA1C 6.0 per patient at last checkwill continue Metformin 1000mg 1 po bidincreas e mounjaro 7.5mg once weekly to 10mg once weekly MounjaroMo nitor bs readings before and after meals (2Hrs) keep log 06/13/2022 BUN 13creat 0.41eGFR 134 04/21/2023 BUN 13Creat 0.55eGFR 124 Mixed hyperlipidemia 267 037504 E78.2 07/06/2020 [id number] Trig 441 HDL 32 LDL 150 07/26/2021 [...] LSM Body mass index 30+ - obesity 362260102 Z68.39 BMI 34.7Health y body weight 105-135 Generalize d anxiety disorder 34670022 F41.1 Will continue treatmentE scitalopra m 20mg dailyKlono pin for severe anxiety symptomsre commend psychother apist visits-amy l with problems or thoughts of harming self Anxiety 53414364 F41.9 auto relaxation exerciseRX clonazepam at home for prn use Multiple environmental allergies 210143735 T78.49XD igE 645 plus multiple specific environmen sven allergensc ontinue otc antihistam ine Obesity 575675137 E66.9 BMI 34.7Health y body weight 105-135adv ised will provide RX phentermin e 3 months on 3 months off as long as some weight loss and no side effects Hyperpigme ntation of skin 17383210 L81.9 continue triluma-brush s from [place] daily sunscreenr eferred to derm Chronic dermatitis 71558 007 L30.9 Seen by derm 02/2016 given about same treatment she had received from this office. SHe wishes to continue treatment. Cystic acne 04281668 L70 .0 drink a lot of water with this medication and daily bananaderm will be starting accutane Excess morales niculus of abdomen 7857197003 101 E65 Has a rash itchysweat y red wet Allergy to fish 19952170 2 Z91.013 + allergen profile to fishGets rash Vitamin D deficiency 347 69749 E55.9 11/01/2021 Vitamin D 11.// 024 Vitamin D <4.0buy otc vitamin D3 1000 IU once daily Venous varices 249749009 I83.92 weight losselevat e legssuppor t hoseibupro fen prn Steatotic liver disease 718249152 K76.0 04/15/2023 CT abd/pelvis w/con shows fatty liver, Hepatomega ly, yessica inguinal lymphadeno harmeet, cholelithi asis and R enlarged ovary. Abnormal l iver function 95529122 K76.89 04/15/2023 CT abd/pelvis w/con shows fatty [...] [place] Member ID Guarantor Name 09/01/2023 2 [place] [employer] Yasmeen Ny [id number] Yasmeen Ny 09/01/2023 1 [employer] - ALLIED BENEFITS - OPEN ACCESS [id number] Yasmeen Ny [id number] Yasmeen Ny 09/03/2023 2 [place] [facility] Yasmeen Ny [id number] Yasmeen Ny 09/03/2023 1 [employer] - ALLIED BENEFITS - OPEN ACCESS [id number] Yasmeen Ny [id number] Yasmeen Ny 11/02/2023 2 [place] [facility] Aysmeen Ny [id number] Yasmeen Ny 11/02/2023 1 [employer] - ALLIED BENEFITS - OPEN ACCESS [id number] Yasmeen Ny [id number] Yasmeen Ny 12/14/2023 2 [place] [facility] Yasmeen Ny [id number] Yasmeen Ny 12/14/2023 1 [employer] - ALLIED BENEFITS - OPEN ACCESS [id number] Yasmeen Ny [id number] Yasmeen Ny 02/05/2024 2 [place] [facility] Yasmeen Ny [id number] Yasmeen Ny 02/05/2024 1 [employer] - ALLIED BENEFITS - OPEN ACCESS [id number] Yasmeen Ny [id number] Yasmeen Ny Notes Date Note Type Note [...] no contraindications. LAURA Hancock Attn: Accounting ,[address] [place], [address] , [facility] 09/03/2023 18:04:02 024 text/ht ml [...] chronic dermatitis. WELLINGTON Hancock Attn: Accounting ,[address] [place], [address] , [facility] 11/02/2023 15:40:54 024 text/ht ml ObesityReported bypatient.Context:no [...] She has not gotten elastogram done yet. LAURA Hancock Attn: Accounting ,[address] [place], [address] , [facility] 12/14/2023 13:05:16 024 text/ht [...] menstruationHyperlipidemiaReported bypatient.Type of hyperlipidemia:combined Duration:chronic;intermittent Prior Tests:07/06/2020 [id number] Trig 441 HDL 32 LDL 150 07/26/2021 [...] prn anxiety. CHU Hancock- Attn: Accounting ,[address] [place], [address] , [facility] 02/05/2024 15:15:18 OBGyn Episode Ob Episode Information Episode Created Date Number of Fetuses Patient Bloodtype Patient rh Status Prepregnancy Weight lbs Domestic Partner Domestic Partner Phone Father Name Human Resources Project Manager Status 06/06/19 21 1 CLOSED Fetus Data First Name Last Name Admitted to NICU Weight (g) Sex Living Outcome Pediatric Complications Fetus ID Race Codes Race Delivery Type M [id number] Vaginal Rajeev Calculation Initial Rajeev Date Initial [...]
[2024-09-21 09:59] LABS: Basophils Percent Auto 0.2 % (0.2-1.2); Eosinophils Absolute Auto 0.1 K/mm3 (0-0.3); Eosinophils Percent Auto 0.8 % (0-4.4); Hematocrit 35.3 % (37.0-47.0); Hemoglobin 11.1 g/dL (12.0-15.0); Immature Granulocyte Absolute 0.03 K/mm3 (0.00-0.031); Immature Granulocyte Percent A 0.3 % (0-0.5); Lymphocytes Absolute Auto 2.71 K/mm3 (0.9-3.2); Lymphocytes Percent Auto 30.3 % (18.3-44.2); Mean Corpuscular HGB Conc 31.4 g/dl (32-36); Mean Corpuscular Hemoglobin 26.4 pg (26-34); Mean Corpuscular Volume 83.8 fl (80-100); Mean Platelet Volume 11.6 fl (7.4-10.4); Monocytes Absolute Auto 0.5 K/mm3 (0.1-0.6); Monocytes Percent Auto 5.4 % (2.6-8.5); Neutrophils Absolute Auto 5.6 K/mm3 (1.3-6.7); Platelet Count Result 253 k/mm3 (150-375); Red Blood Count 4.21 M/mm3 (4.2-5.4); Red Cell Distribution Width 14.2 % (11.5-14.5); White Blood Count 8.9 K/mm3 (4.5-10.0)
[2024-09-21 10:10] LABS: Alanine Aminotransferase 16 U/L (6-35); Albumin Level 3.1 g/dL (3.5-5.1); Alkaline Phosphatase 130 U/L (38-126); Anion Gap 5 mmol/L (4-12); Aspartate Amino Transferase 27 U/L (14-36); Bilirubin,Total 0.4 mg/dL (0.2-1.3); Blood Urea Nitrogen 11 mg/dL (7-17); Calcium 8.7 mg/dL (8.4-10.2); Carbon Dioxide 20 mmol/L (22-30); Chloride 109 mmol/L (98-107); Estimated Glomerular Filt Rate > 60; Glucose 135 mg/dL (65-110); Potassium 3.8 mmol/L (3.4-5.0); Sodium 134 mmol/L (137-145); Total Protein 6.5 g/dL (6.3-8.2); Uric Acid 5.3 mg/dL (2.5-7.5)
[2024-09-21 10:40] LABS: Add Urine Microscopic? YES; Appearance Urine Clear (Clear); Bacteria Urine None Seen /hpf; Bilirubin Urine Negative (Negative); Blood Urine Negative (Negative); Color Urine Yellow (Yellow); Glucose Urine UA Negative (Negative); Ketones Urine Negative (Negative); Leukocyte Esterase Ur Negative LEU/UL (Negative); Nitrate Urine Negative (Negative); Non Pathogenic Casts 0-2; Protein Urine 2+ mg/dL (Negative); RBC Urine 0-2 /hpf (0-2); Squamous Epithelial Cell Urine Occasional /hpf (Few); Urobilinogen Urine 0.2 mg/dL (<2.0); WBC Urine 0-5 /hpf (0-3); pH Urine 6.5 (5.0-9.0)
[2024-09-21] MEDS: ACETAMINOPHEN 500 MG TABLET 1000 MG PO (10:55)
[2024-09-21 11:38] LABS: Creatinine Urine 96.3 mg/dL
[2024-09-21 11:47] LABS: Total Protein Urine Random 266 mg/dL; Ur Ttl Prot Creatinine Ratio 2.76 mg/mg (0-0.20)
== END 2024-09-21 12:05 | disposition home or self-care (01) ==
LOC: ANHOBOP 09:13 → ANHOBPP 09:16
PROVIDERS: Visit Provider Obstetrics & Gynecology
DX: O99.891 Other specified diseases and conditions complicating pregnancy (principal); R51.9 Headache, unspecified; O26.899 Other specified pregnancy related conditions, unspecified trimester; R60.9 Edema, unspecified; Z3A.00 Weeks of gestation of pregnancy not specified
CPT/HCPCS: 36415; 59025; 80053; 81001; 82570; 84156; 84550; 85025; 99199; A9270

== ENCOUNTER 2024-09-23 09:56 | Outpatient (CLI) | payer OTHER, SELFPAY ==
--- OUTSIDE RECORDS SUMMARY | 2024-09-23 10:05 | XMS_ITS | Encounter Summary ---
Author Organization [facility] Health Address [address] [place] [address] Care Team Providers Care Gun Profiler Name Role Phone Chuck Nelson CERAMICS MACHINE OPERATOR-SUPERVISOR EPOXY FABRICATION Primary Care Pro vider Reason for Visit * Reason Onset Date Comments Coordination Of Care 09/22/2024 Encounter Details Date Type Department Care Team (Late st Contact Info) Description 09/22/2024 Telephone [facility]/ EV[facility]UATION [facility] [address] [place] [address] Rita Morales, RN Coordination Of Care Social History Tobacco Use Types Packs/Day [...] and heating? Not hard at all 08/23/2024 [facility] - Occupational Stress [...] things needed for daily living? No 08/23/2024 [place] Depression Scale Answer Date Recorded [place] Depression Scale Total 1 03/01/2024 The thought [...] were you homeless or living in a long-term (including now)? No 08/23/2024 Estimated Date of Delivery Comme nts Yes 10/19/2024 Based on last me nstrual period of 01/13/2024 Sex and Gender Information Value Date Recorded Sex Assigned at Not on file Legal Sex Female 2:51 PM CDT Gender Identity Not on file Sexual Orientation Not on file documented as of this encounter Miscellaneous Notes * Telephone Encounter - Rita Morales RN - 09/22/2024 11:57 AM CDT Secure chat message received from Dr Bush to schedule patient for NST tommorow. Arteaga @ [facility] contacted, patient schedule for office visit and NST with their office this afternoon. Dr Bush notified documented in this encounter Plan of Treatment Upcoming Encounters Date Type Department Care Team (Late st Contact Info) Description 09/26/2024 9:30 AM CDT Appointment [facility]/ [facility] UN[facility] [address] [place] [address]. [address] [place] [address] 09/26/2024 10:30 AM CDT Appointment [facility]/ EVALUATION UNIT [address] [place] [address] 09/26/2024 11:15 AM CDT Appointment [facility] [address] [place] [address] 09/26/2024 11:30 AM CDT Appointment [facility] [address] [place] [address] 09/27/2024 1:00 PM CDT Appointment [facility] [address] [place] [address] 09/27/2024 2:15 PM CDT Appointment [facility] [address] [place] [address] 09/29/2024 1:00 PM CDT Appointment [facility] [address] [place] [id number] 10/03/2024 9:30 AM CDT Appointment [facility] [address] [place] [address] 10/03/2024 10:30 AM CDT Appointment [facility] [address] [place] [address] 10/06/2024 1:00 PM CDT Appointment [facility] [address] [place] [address] documented as of this encounter Visit Diagnoses Not on filedocumented in this encounter Care Teams Gun Profiler Relationship Specialty Start Date End Date Chuck Nelson APRN-EMILY [facility] [phone] PCP - General Nurse Practitioner 08/25/22 documented as of this encounter
--- OUTSIDE RECORDS SUMMARY | 2024-09-23 10:06 | XMS_ITS | Clinical Summary ---
Author Organization [facility] Address [address] [place] [address] Care Team Providers Care Fur Plucker Name Role Phone Chuck Nelson BUNKER WORKER-GRAVE DIGGER Primary Care Pro vider Source Comments [facility],non-owned Affiliates and Associated Physician Practices is amultiple site organization consisting of ambulatory clinics and hospital sitesin [place], [place], [place] and [place]. This disclosure is being madepursuant to the Care Everywhere program and may not contain all information available regarding this patient. Last updated 18.[facility] Blue Egg Allergies Active Allergy Reactions Criticality Noted Date [...] long-term current use of insulin ([facility]) Use 1 Each as directed 1 kit 024 Active blood glucose (OneTouch Verio) test stripIndicatio ns:Pre-existin g type 2 diabetes mellitus during , antepartum (HCC),Type 2 diabetes mellitus with stage 1 chronic kidney disease, with long-term current use of insulin ([facility]) To monitor blood glucose (sugar) 4x daily- fasting and 1 hour after meals 100 strip 5 024 Active Lancets (ONETOUCH DELICA PLUS 33G EXTRA FINE LANCET)Indicat ions:Pre-exist ing type 2 diabetes mellitus during , antepartum ([facility]),Type 2 diabetes mellitus with stage 1 chronic kidney disease, with long-term current use of insulin ([facility]) To monitor blood glucose (sugar) 4x daily- fasting and 1 hour after meals 100 Each 5 024 Active Glucagon (Baqsimi One Pack) 3 MG/DOSE POWD Bradford 1 Each into the nose as needed [...] diabetes mellitus during , antepartum ([facility]) Take 2 (two) tablets by mouth once daily 100 tablet 1 024 Active Vit-Fe Fumarate-FA (M-Raz Plus) 27-1 MG TABS 025 Active magnesium oxide (Mag-Ox) 400 MG tablet Take 1 (one) tablet by mouth once daily 30 tablet 2 025 Active Additional Information Patient not taking.Reason: Patient adjusted, Informant: Patient, Reported on 09/20/2024 Insulin Pen Needle (TechLite Pen [place]) 32G X 4 MM MISCIndication s:Pre-existing type 2 diabetes mellitus during , antepartum ([facility]) Use 1 Each 5 times daily 150 Each 5 025 Active insulin lispro (HumaLOG;ADMel og) 100 UNIT/ML penIndications :Type 2 diabetes mellitus with hyperglycemia, unspecified whether terminologist insulin use (HCC) Inject 18u before small [...] tabletIndicati ons:Vaginitis affecting in third trimester, antepartum (HCC) Take 1 (one) tablet by mouth once daily Take second tablet if symptoms persist after 72 hours. 2 tablet 025 Active insulin glargine (Lantus/Semgle e) 100 units/mL penIndications :Type 2 diabetes mellitus with hyperglycemia, unspecified whether assisted insulin use (HCC) Inject 24 units in the morning and 24 units at bedtime. Take dosages approximately 12 hours apart. Increase dose as directed due to increasing insulin requirements during . Max total daily dose = 50u 15 mL 5 025 Active Continuous Glucose Sensor (Dexcom G7 Sensor) MISCIndication s:Pre-existing type 2 diabetes mellitus during , antepartum ([facility]) Use 1 Each Continuous for 10 days 3 Each 5 025 2025 Active Clindamycin Phosphate (Clindamycin Phos, Once-Daily,) 1 % GEL APPLY A THIN LAYER TOPICALLY TO AFFECTED AREA TWICE DAILY Active Continuous Glucose Sensor (Dexcom G7 Sensor) MISCIndication s:Pre-existing type 2 diabetes mellitus during , antepartum ([facility]) Use 1 Each Continuous for 10 days 3 Each 5 024 2024 Discontinued(R eorder) insulin glargine (Lantus/Semgle e) 100 units/mL penIndications :Type 2 diabetes mellitus with hyperglycemia, unspecified whether assisted insulin use (HCC) Inject 22 units in [...] migh t be different from the original. [employer] form completed. Diapers given. 07/26/2024, [...] 348K. Assessment & Plan (05/16/2020 12:49 PM SUPERVISOR TYPE PHOTOGRAPHY): Resolution of headaches continues. Preeclampsia work up negative on 04/30: PCR: 0.18, AST: 25, ALT: 35, creatinine: 0.50, platelets: 348K. Normotensive today. Asymptomatic for preeclampsia. [facility] Plan: 1. Encouraged to continue to monitor for preeclampsia symptoms and if future headache occurs and not relieved with interventions, to always alert primary OB or seek OB evaluation at OB triage. Assessment & Plan (05/09/2020 2:03 PM SUPERVISOR TYPE PHOTOGRAPHY): Resolution of headaches this week. Preeclampsia work up negative on 04/30: PCR: 0.18, AST: 25, ALT: 35, creatinine: 0.50, platelets: 348K. Normotensive today. Asymptomatic for preeclampsia. [facility] Plan: 1. Encouraged to continue to monitor for preeclampsia symptoms and if headache not relieved with interventions, to always alert primary OB or seek OB evaluation at OB triage. 2. Riboflavin instructions given to cigar packer and picker OTC.. Assessment & Plan (05/02/2020 11:59 AM SUPERVISOR TYPE PHOTOGRAPHY): Noticing headaches first thing in the morning [...] 5.8 Assessment & Plan (05/23/2020 12:34 PM SUPERVISOR TYPE PHOTOGRAPHY): 24 hour urine/CMP: 04/30: PCR: 0.18, AST: [...] office who agreed. Recommendation given to primary Assembler Equipment and patient sent to [facility] today for delivery, cephalic on quick look [...] . Assessment & Plan (05/16/2020 1:23 PM SUPERVISOR TYPE PHOTOGRAPHY): 24 hour urine/CMP: 04/30: PCR: 0.18, AST: [...] delivery planning. 9. Sent to L/D at [facility] for continuous monitoring. Report called to both L/D and primary Assembler Equipment's office regarding office visit today and decreased [...] reduction. Assessment & Plan (05/09/2020 12:01 PM SUPERVISOR TYPE PHOTOGRAPHY): 24 hour urine/CMP: 04/30: PCR: 0.18, AST: [...] monitor. Assessment & Plan (05/02/2020 12:25 PM SUPERVISOR TYPE PHOTOGRAPHY): 24 hour urine/CMP: 04/30: PCR: 0.18, AST: [...] today. Assessment & Plan (04/25/2020 5:32 PM SUPERVISOR TYPE PHOTOGRAPHY): 24 hour urine/CMP: pending hemoglobin A1c: 5.8%, [...] she is scheduled to do with primary Assembler Equipment again this Thursday. 8. Reviewed importance of [...] lab. Assessment & Plan (04/11/2020 11:49 AM SUPERVISOR TYPE PHOTOGRAPHY): 24 hour urine/CMP: pending, has to re-do [...] she is scheduled to do with primary Assembler Equipment. 9. Reviewed importance of twice daily kick [...] exam. Assessment & Plan (03/28/2020 12:49 PM SUPERVISOR TYPE PHOTOGRAPHY): 24 hour urine/CMP/hemoglobin A1c: plans to do [...] she becomes hypoglycemic. 7. Reviewed after hours [facility] triage number to call with any [...] Overview (04/05/2024): Insulin resistance;Recorded Elsewhere: No Location: [facility] Source: EHR Chronic: N Practice ID: [...] Papanicolaou smear 11/09/2019 04/05/2024 Overview (04/05/2024): 2014 Encounters Date Type Department Care Team Description 09/22/2024 8:30 AM CDT - 09/22/2024 11:59 PM CDT Hospital Encounter [facility] MATERNAL/ EVALUATION UNIT [address] [place] [address] Eduar Hernandez MD McIntyre, Amanda S, BUNKER WORKER-GRAVE DIGGER Discharge Disposition: Home or Self Care 09/22/2024 7:30 AM CDT - 09/22/2024 8:29 AM CDT Hospital Encounter [facility] MATERNAL/ EVALUATION UNIT [address] [place] [address] Eduar Hernandez MD Discharge Disposition: Home or Self Care 09/22/2024 Telephone [facility] MATERNAL/ EVALUATION UNIT [address] [place] [address] Rita Morales RN Coordination Of Care 09/22/2024 Travel 09/21/2024 Telephone [facility] MATERNAL/ EVALUATION UNIT [address] [place] [address] Yani Mares Appointment 09/20/2024 1:11 PM CDT - 09/20/2024 11:59 PM CDT Hospital Encounter [facility] MATERNAL/ EVALUATION UNIT [address] [place] [address] Maryjane Ortega MD Mostello, Dorothea Jean, MD Discharge Disposition: Home or Self Care 09/20/2024 1:11 PM CDT - 09/20/2024 11:59 PM CDT Hospital Encounter [facility] MATERNAL/ EVALUATION UNIT [address] [place] [address] Luana Plummer MD Discharge Disposition: Home or Self Care 09/20/2024 1:11 PM CDT - 09/20/2024 11:59 PM CDT Hospital Encounter [facility] MATERNAL/ EVALUATION UNIT [address] [place] [address] Maryjane Ortega MD Discharge Disposition: Home or Self Care 09/20/2024 1:00 PM CDT - 09/20/2024 1:10 PM CDT Hospital Encounter [facility] MATERNAL/ EVALUATION UNIT [address] [place] [address] Maryjane Ortega MD Discharge Disposition: Home or Self Care 09/20/2024 Travel 09/13/2024 1:32 PM CDT - 09/13/2024 11:59 PM CDT Hospital Encounter [facility] MATERNAL/ EVALUATION UNIT [address] [place] [address] Bird Stevenson MD Discharge Disposition: Home or Self Care 09/13/2024 1:30 PM CDT - 09/13/2024 1:31 PM CDT Hospital Encounter [facility] MATERNAL/ EVALUATION UNIT [address] [place] [address] Bird Stevenson MD Discharge Disposition: Home or Self Care 09/13/2024 Travel 09/07/2024 Orders Only [facility] MATERNAL/ EVALUATION UNIT [address] [place] [address] Qiana Mcfarlane, RD/LD Pre-existing type 2 diabetes mellitus during , antepartum (HCC) 09/06/2024 1:06 PM CDT - 09/06/2024 11:59 PM CDT Hospital Encounter [facility] MATERNAL/ EVALUATION UNIT [address] [place] [address] Eduar Hernandez MD Discharge Disposition: Home or Self Care 09/06/2024 1:06 PM CDT - 09/06/2024 11:59 PM CDT Hospital Encounter [facility] MATERNAL/ EVALUATION UNIT [address] [place] [address] Eduar Hernandez MD Discharge Disposition: Home or Self Care 09/06/2024 1:05 PM CDT Hospital Encounter [facility] MATERNAL/ EVALUATION UNIT [address] [place] [address] Livan Anguiano DO Discharge Disposition: Home or Self Care 09/06/2024 1:00 PM CDT - 09/06/2024 1:04 PM CDT Hospital Encounter [facility]ERNAL/ EVALUATION UNIT [address] [place] [id number] Livan Anguiano DO Discharge Disposition: Home or Self Care 09/06/2024 Refill [facility] MATERNAL/ EVALUATION UNIT [address] [place] [address] Luana Plummer MD Refill Request 09/06/2024 Travel 08/31/2024 Orders Only [facility] MATERNAL/ EVALUATION UNIT [address] [place] [address] Komal Ray MD 08/31/2024 Telephone [facility] MATERNAL/ EVALUATION UNIT [address] [place] [address] Cara Dent 08/30/2024 1:16 PM CDT - 08/30/2024 11:59 PM CDT Hospital Encounter [facility] MATERNAL/ EVALUATION UNIT [address] [place] [address] Bird Stevenson MD Discharge Disposition: Home or Self Care 08/30/2024 1:00 PM CDT Hospital Encounter [facility] MATERNAL/ EVALUATION UNIT [address] [place] [address] Bird Stevenson MD Discharge Disposition: Home or Self Care 08/30/2024 1:00 PM CDT Hospital Encounter [facility] MATERNAL/ EVALUATION UNIT [address] [place] [address] Bird Stevenson MD Discharge Disposition: Home or Self Care 08/30/2024 Travel 08/29/2024 Orders Only [facility] MATERNAL/ EVALUATION UNIT [address] [place] [address] Elaine Sorenson RN Dysuria during in third trimester ([facility]) 08/23/2024 1:24 PM CDT - 08/23/2024 11:59 PM CDT Hospital Encounter [facility] MATERNAL/ EVALUATION UNIT [address] [place] [address] Livan Anguiano DO Gross, Gilad A, MD Discharge Disposition: Home or Self Care 08/23/2024 1:24 PM CDT - 08/23/2024 11:59 PM CDT Hospital Encounter [facility] MATERNAL/ EVALUATION UNIT [address] [place] [id number] Livan Anguiano DO Gross, Gilad A, MD Discharge Disposition: Home or Self Care 08/23/2024 1:24 PM CDT - 08/23/2024 11:59 PM CDT Hospital Encounter [facility] MATERNAL/ EVALUATION UNIT [address] [place] [address] Livan Anguiano DO COACH PROFESSIONAL ATHLETES Discharge Disposition: Home or Self Care 08/23/2024 1:15 PM CDT - 08/23/2024 1:23 PM CDT Hospital Encounter [facility] MATERNAL/ EVALUATION UNIT [address] [place] [address] Livan Anguiano DO Discharge Disposition: Home or Self Care 08/23/2024 Travel 08/03/2024 12:56 PM CDT - 08/03/2024 11:59 PM CDT Hospital Encounter [facility] MATERNAL/ EVALUATION UNIT [address] [place] [address] Dave Sevilla MD Discharge Disposition: Home or Self Care 08/03/2024 12:56 PM CDT - 08/03/2024 11:59 PM CDT Hospital Encounter [facility] MATERNAL/ EVALUATION UNIT [address] [place] [address] Dave Sevilla MD Discharge Disposition: Home or Self Care 08/03/2024 Travel 08/01/2024 Orders Only [facility] MATERNAL/ EVALUATION UNIT [address] [place] [address] Elaine Sorenson RN 07/29/2024 Telephone [facility] MATERNAL/ EVALUATION UNIT [address] [place] [address] Cara Dent 07/26/2024 1:58 PM CDT - 07/26/2024 11:59 PM CDT Hospital Encounter [facility] MATERNAL/ EVALUATION UNIT [address] [place] [address] Eduar Hernandez MD Mostello, Dorothea Jean, MD Discharge Disposition: Home or Self Care 07/26/2024 1:58 PM CDT - 07/26/2024 11:59 PM CDT Hospital Encounter [facility] MATERNAL/ EVALUATION UNIT [address] [place] [address] Eduar Hernandez MD Mostello, Dorothea Jean, MD Discharge Disposition: Home or Self Care 07/26/2024 1:58 PM CDT - 07/26/2024 11:59 PM CDT Hospital Encounter [facility] MATERNAL/ EVALUATION UNIT [address] [place] [address] Eduar Hernandez MD Discharge Disposition: Home or Self Care 07/26/2024 Travel 07/20/2024 1:42 PM CDT - 07/20/2024 11:59 PM CDT Hospital Encounter [facility] Pediatrics - Cardiology [address] [place] [address] Moe Blackwell MD Discharge Disposition: Home or Self Care 07/20/2024 1:10 PM CDT - 07/20/2024 1:41 PM CDT [facility] [address] [place] [address] Sandy Perez MD Discharge Disposition: Home or Self Care 07/12/2024 1:53 PM CDT - 07/12/2024 11:59 PM CDT Hospital Encounter [facility] MATERNAL/ EVALUATION UNIT [address] [place] [address] Luana Plummer MD Discharge Disposition: Home or Self Care 07/12/2024 1:53 PM CDT - 07/12/2024 11:59 PM CDT Hospital Encounter [facility] MATERNAL/ EVALUATION UNIT [address] [place] [address] Luana Plummer MD Discharge Disposition: Home or Self Care 07/12/2024 Travel 06/28/2024 2:14 PM CDT - 06/28/2024 11:59 PM CDT Hospital Encounter [facility] MATERNAL/ EVALUATION UNIT [address] [place] [address] Eduar Hernandez MD Chavan, Niraj R, MD Discharge Disposition: Home or Self Care 06/28/2024 2:14 PM CDT - 06/28/2024 11:59 PM CDT Hospital Encounter [facility] MATERNAL/ EVALUATION UNIT [address] [place] [address] Eduar Hernandez MD Chavan, Niraj R, MD Discharge Disposition: Home or Self Care 06/28/2024 2:14 PM CDT Hospital Encounter [facility] MATERNAL/ EVALUATION UNIT [address] [place] [address] Eduar Hernandez MD Discharge Disposition: Home or [...] and heating? Not hard at all 08/23/2024 [facility] - Occupational Stress [...] things needed for daily living? No 08/23/2024 [place] Depression Scale Answer Date Recorded [place] Depression Scale Total 1 03/01/2024 The thought [...] any time in the past 12 [facility], were you homeless or living in a penitentiary (including now)? No 08/23/2024 Estimated Date of [...] 36.6 C (97.8 F) 02/28/2024 2:00 PM SUPERVISOR TYPE PHOTOGRAPHY Respiratory Rate 16 07/12/2024 3:12 PM CDT Oxygen Saturation 98% 02/28/2024 5:00 PM SUPERVISOR TYPE PHOTOGRAPHY Inhaled Oxygen Concentration - - Weight 113 kg (249 lb 3.2 oz) 09/20/2024 1:40 PM CDT Height 162.6 cm (5' 4) 06/08/2024 12:59 PM SUPERVISOR TYPE PHOTOGRAPHY Body Mass Index 42.78 06/08/2024 12:59 PM SUPERVISOR TYPE PHOTOGRAPHY Plan of Treatment Upcoming Encounters Date Type Department Care Team (Late st Contact Info) Description 09/26/2024 9:30 AM CDT Appointment [facility] MATERNAL/ EVALUATION UNIT [address] [place] [address] 09/26/2024 10:30 AM CDT Appointment [facility] MATERNAL/ EVALUATION UNIT [address] [place] [address] 09/26/2024 11:15 AM CDT Appointment [facility] MATERNAL/ EVALUATION UNIT [address] [place] [address] 09/26/2024 11:30 AM CDT Appointment [facility] MATERNAL/ EVALUATION UNIT [address] [place] [address] 09/27/2024 1:00 PM CDT Appointment [facility] MATERNAL/ EVALUATION UNIT [address] [address] 09/27/2024 2:15 PM CDT Appointment [facility] MATERNAL/ EVALUATION UNIT [address] [place] [address] 09/29/2024 1:00 PM CDT Appointment [facility] MATERNAL/ EVALUATION UNIT [address] [place] [address] 10/03/2024 9:30 AM CDT Appointment [facility] MATERNAL/ EVALUATION UNIT [address] [address] 10/03/2024 10:30 AM CDT Appointment [facility] MATERNAL/ EVALUATION UNIT [address] [place] [address] 10/06/2024 1:00 PM CDT Appointment [facility] MATERNAL/ EVALUATION UNIT [address] [place] [address] Health Maintenance Due Date Last Done Comments [...] Procedure Name Priority Date/Time Associated Diagnosis Comments CULTURE URINE Routine 09/22/2024 8:34 AM CDT High risk , antepartum (HCC) SONOGRAM - LIMITED Routine 09/22/2024 7: 37 AM CDT URINALYSIS - POCT (IP) BEAKER INTERFACE [...] URINE RANDOM PNL Routine 03/01/2024 4:35 PM SUPERVISOR TYPE PHOTOGRAPHY Pre-existing type 2 diabetes mellitus during , antepartum Supervision of high-risk of young primigravida HEPATITIS C ANTIBODY Routine 03/01/2024 4:35 PM SUPERVISOR TYPE PHOTOGRAPHY Pre-existing type 2 diabetes mellitus during , antepartum Supervision of high-risk of young primigravida PAP IG LB+HPV APTIMA Routine 03/01/2024 4:35 PM SUPERVISOR TYPE PHOTOGRAPHY Supervision of high-risk of young primigravida HIV-1 HIV-2 ANTIBODY + HIV P24 AG PANEL Routine 03/01/2024 4:35 PM SUPERVISOR TYPE PHOTOGRAPHY Pre-existing type 2 diabetes mellitus during , antepartum Supervision of high-risk of young primigravida COMPREHENSIVE METABOLIC PANEL STAT 02/28/2024 2:11 PM SUPERVISOR TYPE PHOTOGRAPHY from Last 3 Months or Most Recently Relevant to Health Maintenance Results * SONOGRAM - LIMITED (09/22/2024 7:37 AM CDT) Linked Results Indication ======== Diabetes mellitus, type II (on insulin) Obesity, Class II Normal echo 07/20/24 History ====== OB History 2. Para 1 [id number] Lab Tests Test Date Result NIPT 04/05/2024 Low risk, Female Maternal Assessment Physical Exam Height 163 cm, 5 ft 4 in. Weight 113 kg, 249 lb. Initial weight 89 kg, 196 lb. BMI 42.74 kg/m . Initial BMI 33.64 kg/m . Weight gain 24 kg, 53 lb Method ====== Transabdominal ultrasound. View: Sufficient ========= Valderrama . Number of fetuses: 1 Dating ====== Date Details Gest. age JEFF LMP 01/13/2024 Cycle: regular cycle 36 w + 1 d 10/19/2024 Stated JEFF 36 w + 1 d 10/19/2024 Assigned dating based on the LMP, selected on 09/20/2024 36 w + 1 d 10/19/2024 General Evaluation Cardiac activity present. FHR 134 bpm. Presentation: cephalic Placenta: Placental site: posterior, left lateral Umbilical cord: Cord vessels: 3 vessel cord Amniotic fluid: Amount of AF: normal. MVP 3.8 cm. ABHAY 7.1 cm. Q1 1.4 cm, Q2 0.9 cm, Q3 3.8 cm, Q4 1.0 cm Anatomy The following structures appear normal: Abdomen Stomach. Kidneys. Bladder. sex: female. Impression ========= Single, live, intrauterine at 36w1d The amniotic fluid volume is normal Comment ======== ultrasound alone cannot detect all structural, genetic, or functional , placental, or maternal abnormalities Follow-up ======== Continue weekly BPP with twice weekly NST Coding ====== Procedures [id number]: US Uterus Limited [facility] Mirifice PACS Anatomical Region Laterality Modality Other 09/22/2024 7:37 AM CDT Eduar Hernandez MD [facility] ORDERABLES Edited Result - Final * (ABNORMAL) URINALYSIS - POCT (IP) BEAKER INTERFACE (09/20/2024 3:41 PM CDT) Only the most recent of7 resultswithin the time period is included. Color UA POCT Yellow Straw, Yellow, Dark Yellow, Light Yellow 09/20/2024 4:10 PM CDT [facility] Clarity UA POCT Clear Clear 4:10 PM CDT [facility] Specific Cutler UA POCT >=1.030 1.005 - 1.030 09/20/2024 4:10 PM CDT [facility] pH UA POCT 6.0 5.0 - 8.0 pH 09/20/2024 4:10 PM CDT [facility] Protein UA POCT 3+(A) Negative 4:10 PM CDT [facility] Blood UA POCT Negative Negative 09/20/2024 4:10 PM CDT [facility] Leukocyte UA POCT Negative Negative 09/20/2024 4:10 PM CDT [facility] Nitrite UA POCT Negative Negative 4:10 PM CDT [facility] Glucose UA POCT Negative Negative 4:10 PM CDT [facility] Ketone UA POCT Negative Negative 09/20/2024 4:10 PM CDT [facility] Bilirubin UA POCT Negative Negative 09/20/2024 4:10 PM CDT [facility] Urobilinogen UA POCT 0.2 0.1 - 1.0 EU/dL 09/20/2024 4:10 PM CDT [facility] Urine URINE / Unknown 09/20/2024 3 :41 PM CDT 09/20/2024 4:10 PM CDT Luana Plummer MD LAB - POINT OF CARE OR DERABLES Final Result [facility] [address] [place] [address] * BIOPHYSICAL PROFILE W NST (09/20/2024 2:59 PM CDT) Only the most recent of5 resultswithin the time period is included. Linked Results Indication ======== Diabetes mellitus, type II (on insulin) Obesity, Class II Normal echo 07/20/24 History ====== OB History 2. Para 1 [id number] Lab Tests Test Date Result NIPT 04/05/2024 [...] tone 2: Amniotic fluid volume NST: reactive 10/10 Biophysical profile score Non Stress Test NST [...] 6 lb 0 oz EFW by [place] ([id number]) appropriate Growth Overview Exam date [place] BPD [...] maternal abnormalities Follow-up ======== Patient scheduled for [place] clinic appt immediately following today's scan, notified provider of borderline oligohydramnios. Recommend r/o ROM. Recommend US for ABHAY check in 3 days if exam negative for ROM. Continue 2x/week testing (2x/week NST, weekly BPP), repeat UA Doppler studies in 1 week. Repeat growth in 3 weeks. Coding ====== Procedures 31277: [place] [address]: Biophysical Profile W NST 81068: Umbilical Doppler [facility] PACS Anatomical Region Laterality Modality Other 09/20/2024 2:59 PM CDT Eduar Hernandez MD [facility] ORDERABLES Edited Result - Final * CULTURE URINE (09/06/2024 3:18 PM CDT) Only the most recent of3 resultswithin the time period is included. Pathologist [facility] Culture Urine 10,000-50,000 CFU/mL urogenital luis SHITAL 09/07/2024 10:44 PM CDT [facility] Urine URINE SPECIMEN OBTAINED BY CLEAN CATCH PROCEDURE / Unknown Collection / Unknown 09/06/2024 3:18 PM CDT 09/06/2024 3:40 PM CDT Vianca Bailey MD LAB - MICROBIOLOGY TASHA FORRESTER Final Result Performing Organization Address City/[facility]/ZIP Co de Phone Number [facility] [address] [place] [address], [facility] [phone] * (ABNORMAL) GLUCOSE - POINT OF CARE (09/06/2024 2:57 PM CDT) Pathologist [facility] Glucose WB/POC 67(L) 70 - 99 mg/dL 09/06/2024 3:05 PM CDT [facility] Specimen Type Arterial/C apillary 09/06/2024 3:05 PM CDT [facility] Blood BLOOD SPECIMEN / Unknown 09/06/2024 2:57 PM CDT 09/06/2024 3:05 PM CDT Livan Anguiano DO LAB - POINT OF CARE ORDERABLES Final Result [facility] [address] [place] [address] * (ABNORMAL) URINALYSIS REFLEX MICROSCOPIC REFLEX CULTURE (08/30/2024 1:22 PM CDT) Color UA Yellow Yellow, Straw 08/30/2024 2:31 PM CDT [facility] Clarity UA Clear Clear 08/30/2024 2:31 PM CDT [facility] Glucose UA Normal Normal 08/30/2024 2:31 PM CDT [facility] Bilirubin UA Negative Negative 08/30/2024 2:31 PM CDT [facility] Ketone UA Negative Negative 08/30/2024 2:31 PM CDT [facility] Specific Cutler UA <1.005(L) 1.005 - 1.030 08/30/2024 2:31 PM CDT [facility] Blood UA Negative Negative 08/30/2024 2:31 PM CDT [facility] pH UA 6.5 5.0 - 8.0 pH 08/30/2024 2:31 PM CDT [facility] Protein UA Negative Negative 08/30/2024 2:31 PM CDT [facility] Urobilinogen UA Normal Normal mg/dL 08/30/2024 2:31 PM CDT [facility] Nitrite UA Negative Negative 08/30/2024 2:31 PM CDT [facility] Leukocyte Esterase UA 25 MIA/uL(A) Negative 08/30/2024 2:31 PM CDT [facility] RBC UA 0-2 0 - 5 # /hpf 08/30/2024 2:31 PM CDT [facility] WBC UA 0-5 0 - 5 # /hpf 08/30/2024 2:31 PM CDT [facility] Bacteria UA Trace(A) None Seen 08/30/2024 2:31 PM CDT [facility] Squamous Epithelial Cells 0-2 0 - 5 /hpf 08/30/2024 2:31 PM CDT [facility] Mucus UA 1+ /LPF 08/30/2024 2:31 PM CDT [facility] Reflex Status Culture to follow 08/30/2024 2:31 PM CDT [facility] Urine URINE SPECIMEN OBTAINED BY CLEAN CATCH PROCEDURE / Unknown Collection / Unknown 08/30/2024 1:22 PM CDT 08/30/2024 2:22 PM CDT Narrative [facility] - 08/30/2024 2:31 PM CDT us Bel Gibson MD LAB - URINALYSIS ORDERABLES Wilma l Result Performing Organization Address [facility] Co de Phone Number [facility] [address] [place] [address] * HEMOGLOBIN A1C (08/23/2024 4:16 PM CDT) Hemoglobin A1c 5.3 <5.7 % 08/23/2024 5:15 PM CDT [facility] Estimated Average Glucose 105 mg/dL 08/23/2024 5:15 PM CDT [facility] Blood BLOOD SPECIMEN / Unknown Venipuncture / Unknown 08/23/2024 4:16 PM CDT 08/23/2024 4:43 PM CDT Narrative [facility] - 08/23/2024 5:15 PM CDT HbA1c [...] ORDERAB LES Final Result Performing Organization Address [facility]/ZIP Co de Phone Number [facility] [address] [place] [address] * SONOGRAM - COMPLETE (07/26/2024 2:48 PM CDT) Only the most recent of2 resultswithin the time period is included. Linked Results Indication ======== Diabetes mellitus, type II Obesity, Class II Normal echo 07/20/24 History ====== OB History 2. Para 1 [id number] Lab Tests Test Date Result NIPT 04/05/2024 [...] 2 lb 9 oz EFW by Hadlock ([id number]) appropriate Growth Overview Exam date [place] BPD [...] begin twice weekly testing. Coding ====== Procedures [id number]: US Preg Uterus Follow Up EVAKUATORY ROSSII PACS Anatomical Region Laterality Modality Other 07/26/2024 2:48 PM CDT Eduar Hernandez MD [facility] ORDERABLES Edited Result - Final [...] 07/20/2024 Exam Date/Time: 07/20/2024 1:47 PM Site: [facility] Current Location: [facility] EStaffOrdering Provider: Moe Blackwell Interpreting Physician: Sandy Perez MD Outdoor Emergency Care Technician: Aayush Rogers [facility] - Study Info Procedure: ECHO COMPLETE CG Indications: [...] 07/20/2024 Exam Date/Time: 07/20/2024 1:47 PM Site: [facility] EStaffOrdering Provider: Moe Blackwell Interpreting Physician: Sandy Perez MD Outdoor Emergency Care Technician: Aayush Rogers [facility] - Study Info Procedure: ECHO COMPLETE [...] ORD ERABLES Final Result Performing Organization Address City/[facility]/ZIP Co de Phone Number [facility] POCT TESTING [address] [place] [address], [facility] [phone] * TRICHOMONAS VAGINALIS COLLINS (06/28/2024 4:15 PM CDT) Trichomonas by COLLINS NEGATIVE NEGATIVE 06/29/2024 1:38 PM CDT [facility] Microbiology (Endocervix - Swab) Collection / Unknown 06/28/2024 4:15 PM CDT 06/28/2024 4:22 PM CDT Lino Lombardo MD LAB - MICROBIOLOGY TASHA FORRESTER Final Result Performing Organization Address [facility] Co de Phone Number [facility] [address] [place] [address], [facility] [phone] * CHLAMYDIA AND N. GONORRHOEAE COLLINS (06/28/2024 4:15 PM CDT) Chlamydia by COLLINS NEGATIVE NEGATIVE 06/29/2024 1:38 PM CDT [facility] Neisseria gonorrhoeae COLLINS NEGATIVE NEGATIVE 06/29/2024 1:38 PM CDT [facility] Microbiology (Endocervix - Swab) Collection / Unknown 06/28/2024 4:15 PM CDT 06/28/2024 4:22 PM CDT Lino Lombardo MD LAB - MICROBIOLOGY ORDLori FORRESTER Final Result Performing Organization Address City/[facility]/ZIP Co de Phone Number [facility] [address] [place] [address], [facility] [phone] * PAP IG LB+HPV APTIMA (03/01/2024 4:35 PM SUPERVISOR TYPE PHOTOGRAPHY) Diagnosis Comment 03/09/2024 5:09 PM SUPERVISOR TYPE PHOTOGRAPHY [facility] ([facility]) Comment:NEGATIVE FOR INTRAEP ITHELIAL LESION OR MALIGNANCY. Specimen Adequacy Comment 5:09 PM SUPERVISOR TYPE PHOTOGRAPHY [facility] ([facility]) Comment:Satisfactory for loida luation. No endocervical component is identified. Performed by Comment 03/09/2024 5:09 PM SUPERVISOR TYPE PHOTOGRAPHY [facility] ([facility]) Comment:Bharti Ocampo Cytot echnologist (ASCP) Comment . 03/09/2024 5:09 PM SUPERVISOR TYPE PHOTOGRAPHY [facility] ([facility]) Note Comment 03/09/2024 5:09 PM SUPERVISOR TYPE PHOTOGRAPHY [facility] ([facility]) Comment: The Pap smear is a screening test designed to aid in the detection of premalignant and malignant conditions of the uterine cervix. It is not a diagnostic procedure and should not be used as the sole means of detecting cervical cancer. Both false-positive and false-negative reports do occur. IGLBP CPT Code Automation Comment 03/09/2024 5:09 PM SUPERVISOR TYPE PHOTOGRAPHY [facility] ([facility]) Comment: This liquid based ThinPrep(R) pap test was screened with the use of an image guided system. Human papillomavirus Aptima Negative Negative 03/09/2024 5:09 PM SUPERVISOR TYPE PHOTOGRAPHY [facility] ([facility]) Comment: This nucleic acid amplification test detects fourteen high-risk HPV types (16,18,31,33,35,39,45,51,52,56,58,59,66,68) without differentiation. Pathology/Cytolo gy PART OF UTERINE CERVIX / Unknown Collection / Unknown 03/01/2024 4:35 PM SUPERVISOR TYPE PHOTOGRAPHY 03/01/2024 4:54 PM SUPERVISOR TYPE PHOTOGRAPHY Narrative [facility] ([facility]) - 03/09/2024 5:09 PM SUPERVISOR TYPE PHOTOGRAPHY Performed at: 01 - [facility] [id number] Vulcanized Fiber Unit Operator: Kaylee Torres MD, Phone: [phone] Performed at: 02 - [facility] [id number] [employer] Fiber Unit Operator: Kaylee Torres MD, Phone: [phone] Specimen Comment: Source.............Cervix Specimen Comment: LMP / Prev Treat...[place] / BX Specimen Comment: No. of containers..01 ThinPrep Vial Lino Lombardo MD LAB - PATHOLOGY/CYTOLOG Y ORDERABLES Final Result [facility] ([facility]) [address] [place] [address] * HIV-1 HIV-2 ANTIBODY + HIV P24 AG PANEL (03/01/2024 4:35 PM SUPERVISOR TYPE PHOTOGRAPHY) Pathologist [facility] HIV1/2 Ab + P24 Ag Non Reactive Non Reactive 03/01/2024 5:51 PM SUPERVISOR TYPE PHOTOGRAPHY [facility] Blood BLOOD SPECIMEN / Unknown Venipuncture / Unknown 03/01/2024 4:35 PM SUPERVISOR TYPE PHOTOGRAPHY 03/01/2024 4:53 PM SUPERVISOR TYPE PHOTOGRAPHY Narrative [facility] - 03/01/2024 5:51 PM SUPERVISOR TYPE PHOTOGRAPHY No Laboratory evidence of HIV infection. Lino Lombardo MD LAB - CHEMISTRY ORDERAB LES Final Result Performing Organization Address [facility] Co de Phone Number [facility] [address] [place] [phone] * (ABNORMAL) PROTEIN CREATININE RATIO URINE RANDOM PNL (03/01/2024 4:35 PM SUPERVISOR TYPE PHOTOGRAPHY) Pathologist [facility] Protein Urine 13.7(H) <11.9 mg/dL 03/01/2024 5:36 PM SUPERVISOR TYPE PHOTOGRAPHY [facility] Creatinine Urine 192.10 mg/dL 03/01/2024 5:36 PM SUPERVISOR TYPE PHOTOGRAPHY [facility] Protein/Creatin ine Ratio Urine 0.07 03/01/2024 5:36 PM SUPERVISOR TYPE PHOTOGRAPHY [facility] Urine URINE SPECIMEN OBTAINED BY CLEAN CATCH PROCEDURE / Unknown Collection / Unknown 03/01/2024 4:35 PM SUPERVISOR TYPE PHOTOGRAPHY 03/01/2024 4:54 PM SUPERVISOR TYPE PHOTOGRAPHY Lino Lombardo MD LAB - URINE CHEMISTRY O RDERABLES Final Result Performing Organization Address City/[facility]/ZIP Co de Phone Number [facility] [address] [place] [phone] * HEPATITIS C ANTIBODY (03/01/2024 4:35 PM SUPERVISOR TYPE PHOTOGRAPHY) Pathologist [facility] HCV Antibody Screen Non Reactive Non Reactive 03/01/2024 5:51 PM SUPERVISOR TYPE PHOTOGRAPHY [facility] Blood BLOOD SPECIMEN / Unknown Venipuncture / Unknown 03/01/2024 4:35 PM SUPERVISOR TYPE PHOTOGRAPHY 03/01/2024 4:53 PM SUPERVISOR TYPE PHOTOGRAPHY Narrative [facility] - 03/01/2024 5:51 PM SUPERVISOR TYPE PHOTOGRAPHY Non Reactive - Antibodies to Hepatitis C virus (HCV) were not detected, result does not exclude early acute HCV infection. us Lino Lombardo MD LAB - CHEMISTRY ORDERAB LES Final Result [facility] [address] [place] [address] * (ABNORMAL) COMPREHENSIVE METABOLIC PANEL (02/28/2024 2:11 PM SUPERVISOR TYPE PHOTOGRAPHY) Glucose 114(H) 70 - 99 mg/dL 02/28/2024 2:32 PM [facility] Sodium 138 136 - 145 mmol/L 02/28/2024 2:32 PM [facility] Potassium 3.7 3.5 - 5.1 mmol/L 02/28/2024 2:32 PM [facility] Chloride 109(H) 98 - 107 mmol/L 02/28/2024 2:32 PM [facility] CO2 23 22 - 29 mmol/L 02/28/2024 2:32 PM [facility] Calcium 9.0 8.4 - 10.4 mg/dL 02/28/2024 2:32 PM [facility] Anion Gap 6 6 - 16 mmol/L 02/28/2024 2:32 PM [facility] BUN 8 5.3 - 18.7 mg/dL 02/28/2024 2:32 PM [facility] Creatinine 0.76 0.57 - 1.11 mg/dL 02/28/2024 2:32 PM [facility] Alkaline Phosphatase 67 40 - 150 U/L 02/28/2024 2:32 PM [facility] ALT 11 0 - 55 U/L 02/28/2024 2:32 PM [facility] AST 15 5 - 34 U/L 02/28/2024 2:32 PM [facility] Protein Total 7.0 6.4 - 8.3 gm/dL 02/28/2024 2:32 PM [facility] Albumin 3.4 3.4 - 5.0 gm/dL 02/28/2024 2:32 PM SUPERVISOR TYPE PHOTOGRAPHY [facility] Bilirubin Total 0.4 0.2 - 1.2 mg/dL 02/28/2024 2:32 PM SUPERVISOR TYPE PHOTOGRAPHY [facility] eGFR by CKD-EPI >90 >=90 mL/min/1.7 3 m2 02/28/2024 2:32 PM SUPERVISOR TYPE PHOTOGRAPHY [facility] Blood BLOOD SPECIMEN / Unknown Venipuncture / Unknown 02/28/2024 2:11 PM SUPERVISOR TYPE PHOTOGRAPHY 02/28/2024 2:16 PM SUPERVISOR TYPE PHOTOGRAPHY us Robert Haddad PA-C LAB - CHEMISTRY ORDERABLE S Final Result [facility] [address] [place] [address] from Last 3 Months or Most Recently Relevant to Health Maintenance Insurance [employer] [facility] Care Teams Fur Plucker Relationship Specialty Start Date End Date Chuck Nelson, BUNKER WORKER-GRAVE DIGGER [address] [place] [address] PCP - General Nurse Practitioner 08/25/22
--- OUTSIDE RECORDS SUMMARY | 2024-09-23 10:06 | XMS_ITS | Encounter Summary ---
Author Organization [facility] Address [address] [place] [address] Care Team Providers Care Courtroom Deputy Or Calendar Clerk Name Role Phone Chuck Nelson CAMERA STORAGE CLERK-FISCAL ANALYST Primary Care Pro vider Encounter Details Date Type Department Care Team (Latest Contact Info) Description 09/22/2024 8:30 AM CDT - 09/22/2024 11:59 PM CDT Hospital Encounter HC MATERNAL/ EVALUATION UNIT [address] [facility] [place] [address] Eduar Hernandez MD [address] [facility] [address] [place] [address] Nhi Walker, CAMERA STORAGE CLERK-FISCAL ANALYST [address] [place] [address] Discharge Disposition: Home or Self Care Social [...] Not hard at all 08/23/2024 [facility] [place] of Occupat ional Health - Occupational Stress [...] things needed for daily living? No 08/23/2024 [place] Depression Scale Answer Date Recorded [place] Depression Scale Total 1 03/01/2024 The thought [...] any time in the past 12 m [facility], were you homeless or living in a long term (including now)? No 08/23/2024 Estimated Date of [...] disease, with long-term current use of insulin ([facility]) To monitor blood glucose (sugar) 4x daily- fasting and 1 hour after meals 100 strip 5 03/01/2024 Blood Glucose Monitoring Suppl ([facility]) w/Device KITIndications:P re-existing type 2 diabetes mellitus during , antepartum ([facility]),Type 2 diabetes mellitus with stage 1 chronic kidney disease, with long-term current use of insulin ([facility]) Use 1 Each as directed 1 kit 03/01/2024 cephalexin (Keflex) 500 MG capsule Take 1 (one) capsule by mouth 2 times daily 14 capsule 08/31/2024 Clindamycin Phosphate (Clindamycin Phos, Once-Daily,) 1 % GEL APPLY A THIN LAYER TOPICALLY TO AFFECTED AREA TWICE DAILY Continuous Glucose Sensor (Roobiq G7 Sensor) MISCIndications: Pre-existing type 2 diabetes mellitus during , antepartum ([facility]) Use 1 Each Continuous for 10 days 3 Each 5 09/13/2024 escitalopram (Lexapro) 20 MG tablet Take 1 (one) tablet by mouth once daily fluconazole (Diflucan) 150 MG tabletIndication s:Vaginitis affecting in third trimester, antepartum ([facility]) Take 1 (one) tablet by mouth once daily Take second tablet if symptoms persist after 72 hours. 2 tablet 09/06/2024 fluticasone propionate (Flonase) 50 MCG/ACT nasal spray USE 1 SPRAY(S) IN EACH NOSTRIL ONCE DAILY Glucagon (Baqsimi One Pack) 3 MG/DOSE POWD [place] 1 Each into the nose as needed 1 Each 03/15/2024 hydrOXYzine HCl (Atarax) 25 MG tablet Take 1 (one) tablet by mouth 3 times daily insulin glargine (Lantus/Semglee) 100 units/mL penIndications:T ype 2 diabetes mellitus with hyperglycemia, unspecified whether residential insulin use ([facility]) Inject 24 units in the morning and 24 units at bedtime. Take dosages approximately 12 hours apart. Increase dose as directed due to increasing insulin requirements during . Max total daily dose = 50u 15 mL 5 09/06/2024 insulin lispro (HumaLOG;ADMelog ) 100 UNIT/ML penIndications:T ype 2 diabetes mellitus with hyperglycemia, unspecified whether supervisor intermediates insulin use ([facility]) Inject 18u before small meals (<30g), 20 units before medium meals (30-45g), and 22u before large meals (>60g). Inject 6u with snacks. Inject 0-15 minutes before meals. Increase dose as directed during . Max total daily dose = 100 units. 30 mL 5 08/23/2024 Insulin Pen Needle (TrefisLite Pen [place]) 32G X 4 MM MISCIndications: Pre-existing type 2 diabetes mellitus during , antepartum ([facility]) Use 1 Each 5 times daily 150 Each 5 08/23/2024 Lancets (ONETOUCH DELICA PLUS 33G EXTRA FINE LANCET)Indicatio ns:Pre-existing type 2 diabetes mellitus during , antepartum ([facility]),Type 2 diabetes mellitus with stage 1 chronic kidney disease, with long-term current use of insulin ([facility]) To monitor blood glucose (sugar) 4x daily- [...] Info) Description 09/26/2024 9:30 AM CDT Appointment [facility] MATERNAL/ EVALUATION UNIT [address] [place] [address] [address] [place] [address] 09/26/2024 10:30 AM CDT Appointment [facility] MATERNAL/ EVALUATION UNIT [address] [place] [address]. [address] [place] [address] 09/26/2024 11:15 AM CDT Appointment [facility] MATERNAL/ EVALUATION UNIT [address] [place] [address] 09/26/2024 11:30 AM CDT Appointment [facility] MATERNAL/ EVALUATION UNIT [address] [place] [address] 09/27/2024 1:00 PM CDT Appointment [facility] MATERNAL/ EVALUATION UNIT [address] [place] [address] 09/27/2024 2:15 PM CDT Appointment [facility] MATERNAL/ EVALUATION UNIT [address] [place] [address] 09/29/2024 1:00 PM CDT Appointment [facility] MATERNAL/ EVALUATION UNIT [address] [place] [address] 10/03/2024 9:30 AM CDT Appointment [facility] MATERNAL/ EVALUATION UNIT [address] [place] [address] 10/03/2024 10:30 AM CDT Appointment [facility] MATERNAL/ EVALUATION UNIT [address] [place] [address] 10/06/2024 1:00 PM CDT Appointment [facility] MATERNAL/ EVALUATION UNIT [address] [place] [address] Pending Results Name Type Priority Associated Diagnoses Date /Time CULTURE URINE Microbiology Routine High risk , antepartum (HCC) 09/22/2024 8:34 AM CDT documented as of this encounter Procedures Procedure Name Priority Date/Time Associated Diagnosis Comments CULTURE URINE Routine 09/22/2024 8:34 AM CDT High risk , antepartum (HCC) documented in this encounter Visit Diagnoses Diagnosis High risk , antepartum (HCC)- Primary documented in this encounter Care Teams Courtroom Deputy Or Calendar Clerk Relationship Specialty Start Date End Date Chuck Nelson APRN-EMILY [address] [place] [phone] PCP - General Nurse Practitioner 08/25/22 documented as of this encounter
--- OUTSIDE RECORDS SUMMARY | 2024-09-23 10:06 | XMS_ITS | Encounter Summary ---
Author Organization [facility] Health Address [address] [place] [address] Care Team Providers Care Insurance Billing Clerk Name Role Phone Chuck Nelson Marcelo LACE STRIPPER-READING INSTRUCTOR Primary Care Pro vider Encounter Details Date Type Department Care Team (Latest Contact Info) Description 09/22/2024 Travel Social History Tobacco Use Types Packs/Day [...] and heating? Not hard at all 08/23/2024 [facility] [place] of Occupat ional Health - Occupational Stress [...] things needed for daily living? No 08/23/2024 [place] Depression Scale Answer Date Recorded [place] Depression Scale Total 1 03/01/2024 The thought [...] any time in the past 12 m [facility], were you homeless or living in a correction (including now)? No 08/23/2024 Estimated Date of [...] Info) Description 09/26/2024 9:30 AM CDT Appointment [facility] MATERNAL/ EVALUATION UNIT [facility] [address] [address] 09/26/2024 10:30 AM CDT Appointment [facility] MATERNAL/ EVALUATION UNIT [facility] [address] [place] [address] 09/26/2024 11:15 AM CDT Appointment [facility] MATERNAL/ EVALUATION UNIT [facility] [address] [place] [address] 09/26/2024 11:30 AM CDT Appointment [facility] MATERNAL/ EVALUATION UNIT [facility] [address] [address] 09/27/2024 1:00 PM CDT Appointment [facility] MATERNAL/ EVALUATION UNIT [facility] [address]. [address] [address] 09/27/2024 2:15 PM CDT Appointment [facility] MATERNAL/ EVALUATION UNIT [address] [place] [address] 09/29/2024 1:00 PM CDT Appointment [facility] MATERNAL/ EVALUATION UNIT [address] [place] [address] 10/03/2024 9:30 AM CDT Appointment [facility] MATERNAL/ EVALUATION UNIT [address] [place] [address] 10/03/2024 10:30 AM CDT Appointment [facility] MATERNAL/ EVALUATION UNIT [address] [place] [address] 10/06/2024 1:00 PM CDT Appointment [facility] MATERNAL/ EVALUATION UNIT [facility] [place] [address] documented as of this encounter Visit Diagnoses Not on filedocumented in this encounter Care Teams Insurance Billing Clerk Relationship Specialty Start Date End Date Chuck Nelson APRN-READING INSTRUCTOR [address] [place] [phone] PCP - General Nurse Practitioner 08/25/22 documented as of this encounter
--- OUTSIDE RECORDS SUMMARY | 2024-09-23 10:06 | XMS_ITS | Continuity of Care Document ---
Author Organization [facility] [place] Address [address] [place] [address] [place] [address] Care Team Providers Care Associate Financial Analyst Name Role Phone CHEN CRAIG Primary Care Provider [phone] Assessment No assessment recorded. Plan of Treatment Reminders Order Date Submit Date Provider Last Modified By Organization Details Last Modified Time Details Appointments NST 2024 01:00P M NST SCHEDULE Not available Not available Not available INDUCTION 2024 06:00A Raghavendra APONTE MD Not available Not available Not available OB [...] available Not available Not available Lab None recorded. Referral None recorded. Procedures None recorded. Surgeries None recorded. Imaging non-stres s test 2024 025 [email or web address] [place], [address], [place], [address], 09/22/2024 17:02:37 Medication Orders None recorded. Patient TargetsNo targets recorded. Patient InstructionsNo instructions recorded. Reason for Referral None Reported. Results Created Date Observation Date Name Description Value Unit Range Abnormal Flag Note LastModifiedBy Organization Detail LastModifiedTime 04/07/20 24 04/05/2024 US, obste tric, follo w-up No observ ation record ed. [facility] [address] , [place], [address], 05/10/2024 16:46:36 04/07/20 24 04/07/2024 US, obste tric, nucha l trans lucen cy No observ ation record ed. [email or web address] [place] [address], [place], [address], 04/07/2024 17:49:39 04/07/20 24 04/07/2024 US, obste tric, nucha l trans lucen cy No observ ation record ed. [email or web address] [address], [place], [address], 04/07/2024 20:07:13 05/05/19 25 05/05/2024 US, obste tric, limit ed No observ ation record ed. [email or web address] [address], [place], [address], 05/05/2024 21:16:41 06/01/19 25 05/31/2024 US, obste tric, follo w-up No observ ation record ed. [email or web address] [facility] [address] , [place], [address], 06/22/2024 11:58:36 06/29/19 25 06/28/2024 US, obste tric, follo w-up No observ ation record ed. [email or web address] [facility] [address], [place], [address], 06/30/2024 00:17:48 07/28/19 25 07/26/2024 US, obste tric, follo w-up No observ ation record ed. [email or web address] [facility] [address] [facility], [place], [address], 08/02/2024 12:21:50 08/26/19 25 08/23/2024 US, obste tric, follo w-up No observ ation record ed. [email or web address] [facility] [address] [facility], [place], [address], 08/26/2024 16:05:55 08/26/19 25 08/25/2024 non-s tress test No observ ation record ed. [place] [address], [place], [address], 08/25/2024 16:29:32 09/01/19 25 08/30/2024 US, obste tric, follo w-up No observ ation record ed. [email or web address] [facility] [address] , [place], [address], 09/01/2024 14:44:52 09/02/19 25 09/01/2024 non-s tress test No observ ation record ed. [email or web address] [place] [address], [place], [address], 09/01/2024 16:07:12 09/08/19 25 09/06/2024 US, obste tric, follo w-up No observ ation record ed. [email or web address] [facility] [address] [facility], [place], [address], 09/20/2024 18:38:36 09/09/19 25 09/08/2024 non-s tress test No observ ation record ed. [email or web address] [place] [address], [place], [address], 09/08/2024 16:31:27 09/09/19 25 09/08/2024 US, obste tric, limit ed No observ ation record ed. [email or web address] [place] [address], [place], [address], 09/08/2024 17:53:42 09/09/19 25 09/08/2024 US, obste tric, limit ed No observ ation record ed. [address], [place], [address], 09/15/2024 11:13:07 09/16/19 25 09/13/2024 US, obste tric, follo w-up No observ ation record ed. [facility] [address] [place] [address], [place], [address], 09/20/2024 16:45:35 09/16/19 25 09/15/2024 non-s tress test No observ ation record ed. [email or web address] [place] [address], [place], [address], 09/15/2024 15:48:04 09/23/19 25 09/22/2024 non-s tress test No observ ation record ed. [email or web address] [place] [address], [place], [address], 09/22/2024 16:59:35 Result Notes None recorded. Problems Name Problem SNOMED Code Status Onset Date Resolution Date Notes Provider Name and Address Organization Details Recorded Time Finding of fertilit y Completed 201704/26/2020 Female infertil ity, unspecif ied;Prac sarath ID: 0001 Jorge zamarripa [facility] 14:54:13 Dysuria 72649970 Completed 201704/26/2020 Dysuria; Practice ID: 0001 Jorge zamarripa [facility] 14:54:28 Acute vaginiti s 69038401 Completed 201705/08/2020 Acute vaginiti s;Practi ce ID: 0001 Yadira zamarripa [facility] 12:09:31 Female genital organ symptoms 598698467 Completed 201104/26/2020 Unspecif ied symptom associat ed with female genital organs;R ecorded Elsewher e: No Locat ion: [facility] S ource: EHR Barn Worker ashlyn: N Practi ce ID: 0001 Ezio lable Time: 03:00:00 PM Jorge Pinonizzle [facility] 14:54:25 Body mass index 30+ - obesity 536412782 Completed 201505/08/2020 Body mass index (BMI) 45.0-49. 9, adult;Re corded Elsewher e: No Locat ion: [facility] S ource: EHR Barn Worker ashlyn: N Practi ce ID: 0001 Ezio lable Time: 05:30:00 PM Yadira zamarripa [facility] 12:09:36 Speciali zed medical examinat ion Completed 201404/26/2020 ROUTINE CLAIMS ADJUSTOR EXAMINAT ION;Conrad rded Elsewher e: No Locat ion: [facility] S ource: EHR Barn Worker ashlyn: N Practi ce ID: 0001 Ezio lable Time: 03:15:00 PM Jorge Pinonizzle [facility] 14:53:39 Syphilis test finding 599785048 Completed 201504/26/2020 Encntr screen for infectio ns w sexl mode of transmis s;Record ed Elsewher e: No Locat ion: [facility] S ource: EHR Barn Worker ashlyn: N Practi ce ID: 0001 Ezio lable Time: 05:30:00 PM Jorge Joe [facility], [facility] 14:53:43 Obesity 195259625 Completed 201305/08/2020 LD [facility]SA [facility] Concept Completed 201704/26/2020 Encntr for general adult medical exam w/o abnormal findings ;Recorde d Elsewher e: No Locat ion: Saji sandoval [facility] S ource: EHR Barn Worker ashlyn: N Practi ce ID: 0001 Ezio lable Time: 08:30:00 AM [facility] 14:53:36 Screenin g for malignan t neoplasm of cervix Completed 201104/26/2020 Pap Smear;Pr actice ID: 0001 Jorge Joe [facility] 14:53:52 Ill-defi meño intestin al infectio n Completed 201104/26/2020 No Show Fee;Prac sarath ID: 0001 Jorge Joe [facility], [facility] 14:54:20 Amenorrh ea 38702829 Completed 201105/08/2020 AMENORRH EA;Pract ice ID: 0001 Yadira Mike marilou [facility] 12:09:33 Pregnanc y test negative 272610458 Completed 201104/26/2020 Negative Pregnanc y Test;Pra ctice ID: 0001 Jorge Joe [facility] 14:53:57 Polycyst ic ovaries Completed 201305/08/2020 Polycyst ic ovaries; Practice ID: 0001 Yadira Mkceon marilou [facility] 12:09:44 Migraine 03106004 Completed 201305/08/2020 Migraine , unspecif ied without mention of intracta ble migraine ;Practic e ID: 0001 Yadira Mckeon [facility] 12:09:40 Adult health examinat ion Completed 201404/26/2020 Routine general medical examinat ion at a health care facility ;Practic e ID: 0001 Jorge Diaz [facility] 14:54:37 Speciali zed medical examinat ion Completed 201404/26/2020 Other specifie d chlamydi al diseases ;Practic e ID: 0001 Jorge Diaz [facility] 14:53:40 Venereal disease screenin g Completed 201404/26/2020 Screenin g examinat ion for venereal disease; Practice ID: 0001 [facility]:53:[address] Concept Completed 201504/26/2020 Encntr for account information clerk exam (general ) (routine ) w/o abn findings ;Practic e ID: 0001 [facility] 14:53:34 Clinical finding Completed 201504/26/2020 Obesity, unspecif ied;Prac sarath ID: 0001 [facility] 14:54:15 Severe obesity 0862435179 9104 Completed 201504/26/2020 Morbid (severe) obesity due to excess calories ;Practic e ID: 0001 Jorge Diaz [facility] 14:54:02 Primary amenorrh ea 550098801 Completed 201704/26/2020 Primary amenorrh ea;Pract ice ID: 0001 Jorge Diaz [facility] 1 14:53:54 Metaboli c syndrome X 522022280 Completed 201305/08/2020 Insulin resistan ce;Recor ded Elsewher e: No Locat ion: [facility] S ource: EHR Barn Worker ashlyn: N Practi ce ID: 0001 Ezio lable Time: 09:45:00 AM [facility] 1 12:09:39 Infectio n screenin g Completed 201504/26/2020 Encounte r for screenin g for oth infec/pa rastc diseases ;Recorde d Elsewher e: No Locat ion: [facility] S ource: EHR Barn Worker ashlyn: N Practi ce ID: 0001 Ezio lable Time: 05:30:00 PM Jorge Diaz [facility], [facility] 1 14:54:11 Diabetes mellitus 12615800 Completed 201905/08/2020 type 2 Yadira zamarripa, [facility] 1 12:09:37 Anxiety 03020569 Completed 201905/08/2020 Zoloft Yadira zamarripa, [facility] 1 12:09:34 Abnormal cervical Papanico laou smear 206438357 Completed 201905/08/20202014 Ydaira zamarripa, [facility] 1 12:09:30 Pregnanc y 92677143 Completed 201905/08/2020 Nehal zamarripa, [facility] 4 18:08:47 Type 2 diabetes mellitus 45321185 Completed Metformi n xr 2000mg qd Sent to [facility] for manageme nt- 05/16- NPH 26U AM/88U PM Increase 2 units when 1 consecut wili fasting >90 / Humalog 16U w/ bfast & 8Uw/ lunch & 32U w/ dinner. 6units with snack over 15g carbs. Nhi zamarripa, [facility] 13:40:41 Purpuric rash 618858664 Completed clotimaz ole/beta methazon e-Rxed Nhi white [facility] 13:40:41 Obesity 601226123 Completed 2013 LD ASA per MF Nhi white [facility] 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 13:40:41 Dilatati on of renal pelvis 001376746 Completed - bilatera l - growth u/s Nhi white [facility] 13:40:41 Anxiety 94349724 Completed 2019 Zoloft Nhi white [facility] 13:40:41 Pre-exis ting type 2 diabetes mellitus in pregnanc y 781926346 Completed 2020 DELIVER BY 37- not well controll ed. M may rec earlier. Nhi white [facility], [facility] 13:40:41 Pre-exis ting type 2 diabetes mellitus in pregnanc y 628798266 Completed 202005/08/2020 Yadira Mckeon [facility], [facility] 12:09:45 Large for gestatio n age fetus 239613782 Completed potentia l 89% 05/11 Nhi white [facility] 1 13:40:41 Pregnanc y 69443376 Active 2023 Nehal Armendariz marilou [facility] 4 18:08:47 Type 2 diabetes mellitus 06071745 Active managed by [facility] Sched [facility] US and office visit Consult 08/03/24 NST & US 08/23/24 1:15PM to start 2xwkly antenata l testing at 32wks confirm if pt schedule [facility] or our office? schedule d for US/BPP/N ST weekly onTuesda ys starting 06/02/24 pt decline Thursday NST pt schedule d on s NST/OB Jenni Joe marilou [facility] 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 5 13:09:37 Group B Streptoc occus carrier 4398599086 103 Active + GBS in urine Jenni zamarripa [facility] 5 13:09:37 Pre-ecla mpsia 670823648 Active 2024 Dante Aponte MD [address], [place], [address], [facility] 5 16:02:57 Problem Notes None recorded. Procedures Surgical History Date Name Laterality Status Provider Name and Address Organization Details Recorded Time 03/01/20 24 Date of Last Pap Smear completed Nehal Armendariz [facility] 04/07/2024 18:07:50 09/02/19 23 IUD Removal completed Dante Aponte MD [address], [place], [address], [facility] 09/01/2022 22:15:29 05/19/19 23 Colposcopy completed Dante Aponte MD [address], [place], [address], [facility] 05/19/2022 15:31:57 05/19/19 23 Colposcopy completed Alva Kimble [facility] 03/09/2023 16:31:33 05/19/19 23 Colposcopy completed Sarah Jordan [facility] 05/19/2022 14:35:43 07/28/19 22 IUD Insertion completed Dante Aponte MD [address], [place], [address], [facility] 07/27/2021 12:17:49 05/22/19 21 NST completed Bel Dennison MD [address], [place], [address], [facility] 05/22/2020 14:09:48 05/15/19 21 NST completed Bel Dennison MD [address], [place], [address], [facility] 05/15/2020 13:43:28 04/27/19 21 NST completed Bel Dennison MD [address], [place], [address], [facility] 04/27/2020 12:17:14 04/20/19 15 Tonsillectomy completed Alva Kimble [facility] 11/09/2019 16:35:35 Imaging Results None recorded. Procedure Notes None recorded. Medical Equipment None Reported. Allergies Allergen ID Allergen Name Allergen Category Reaction Reaction Severity Criticality Documentation Date Start Date Code Code System Note Provider Name and Address Organization Details Recorded Time 1407 lisinopri l medicatio n rash Not available Not available 11/09/2019 12006 RxNorm Alva zamarripa, [facility] 0 11:13:14 Medications Name Sig Start [...] TABLET IF SYMPTOMS PERSIST AFTER 72 HOURS) 09/22 completed Not Available Not Available Not Available [...] Prescrib ed Kamille e: Yes [facility] By: [email or web address] Sandoval ncounter DateTime [...] Elsewher e: No Locat ion: Saji sandoval [facility] odify By: [email or web address] E ncounter DateTime [...] TAKE 1 CAPSULE BY MOUTH TWICE DAILY 09/22 completed Not Available Not Available Not Available [...] Elsewher e: No Locat ion: Saji sandoval [facility] odify By: [email or web address] Encounte r DateTime [...] the affected area(s) 06/17 completed Prescrib ed Elsewher e: No Locat ion: [facility] odify By: karine calix DateTime : [...] T COURSE OF CEPHALEX IN IS FINISHED 09/22 completed Not Available Not Available Not Available [...] Prescrib ed Elsewher e: No [facility] By: [email or web address] araceli Small counter [...] Prescrib ed Elsewher e: No [facility] By: lcaire kearns DateTime : 06/07/19 16 01:29:48 PM [...] Available No t Available [employer] Her[address] [place] 07/06 completed Not Available Not Available Not [...] Sensor device USE DIRECTED FOR 10 DAYS 09/22 completed Not Available Not Available Not Available Vitals Date Recorded Body weight Systolic blood pressure Diastolic blood pressure Provider Name and Address Organization Details Last Updated DateTime 09/22/2024 175197.500 13 g 146 mm[Hg] 92 mm[Hg] Nheal Marcello [facility] 09/22/2024 15:26:24 Date Recorded Body height Body mass index (BMI) Body weight Systolic blood pressure Diastolic blood pressure Provider Name and Address Organization Details Last Updated DateTime 09/22/2024 158.75 cm 44.8 kg/m2 126267.5 g 146 mm[Hg] 92 mm[Hg] DIANE Navarro [facility] 16:58:54 Social History Question Answer Notes LastModified by Organizat ion Details LastModified Time Tobacco Smoking Status Never Smoker Alva zamarripa, [facility] 11/09/2019 16:27:58 Are You Blind Or Do You Have Difficulty Seeing? No Information n ot available 03/09/2023 What Is Your Level Of Caffeine Consumption? Occasional [email or web address] Information not available 03/09/2023 In The 14 Days Before Symptom Onset, Have You Had Close Contact With A Laboratory-confirm ed COVID-19 While That Case Was Ill? No Information n ot available 03/09/2023 In The 14 Days Before Symptom Onset, Have You Had Close Contact With A Person Who Is Under Investigation For COVID-19 While That Person Was Ill? No [email or web address] Information not available 03/09/2023 Have You Been To An Area Known To Be High Risk For COVID-19? No [email or web address] Information not available 03/09/2023 Are You Deaf Or Do You Have Serious Difficulty Hearing? No [email or web address] Information not available 03/09/2023 What Type Of Diet Are You Following? DIABETIC [email or web address] Information n ot available 03/09/2023 Which Illicit Or Recreational Drugs Have You Used? [place] Information not available 11/09/2019 What Was The Date Of Your Most Recent Tobacco Screening? 03/09/2023 [email or web address] Information not available 03/09/2023 Do You Use Your Seat Belt Or Car Seat Routinely? Yes [email or web address] Information not available 03/09/2023 Do You Have Smoke And Carbon Monoxide Detectors In Your Home? Yes [email or web address] Information not available 03/09/2023 How Much Tobacco Do You Smoke? No [email or web address] Information not available 11/09/2019 Do You Use Sunscreen Routinely? Yes [email or web address] Information not available 03/09/2023 Do You Have Difficulty Walking Or Climbing Stairs? No [email or web address] Information not available 03/09/2023 Sex: Unknown Functional Status Question Answer Note LastModified by Organizat ion Details LastModified Time What is your level of alcohol consumption? Occasional [email or web address] Information not available 11/09/2019 Do you or have you ever used smokeless tobacco? Never used smokeless tobacco [email or web address] Information not available 11/09/2019 Are you able to walk? YESWOREST [email or web address] Information not available 03/09/2023 Are you able to care for yourself? Yes [email or web address] Information not available 03/09/2023 Do you have difficulty dressing or bathing? No [email or web address] Information not available 03/09/2023 Do you or have you ever used e-cigarettes or vape? Never used electronic cigarettes Information not available 11/09/2019 What is your exercise level? Occasional [email or web address] Information not available 11/09/2019 Mental Status Question Answer Note LastModified by Organization D etails LastModified Time Do you feel stressed (tense, restless, nervous, or anxious, or unable to sleep at night)? [id number] [email or web address] Information not available 03/09/2023 Family History Relationship Description Onset Age of this Age Resolved Age Notes LastModified by Organization Details LastModified Time Maternal Grandmother Diabetes mellitus [email or web address] Not available 11/08 16:27:24 Maternal Aunt Diabetes mellitus Not available 11/08 16:27:24 Maternal Aunt Malignant tumor of cervix Not available 11/08 16:27:36 Maternal Aunt Malignant tumor of breast [email or web address] Not available 11/08 16:27:47 Medical History Condition [...] SNOMED-CT Code Diagnosis ICD10 Code Diagnosis Note [id number] MD Roxana Posada [address],[place] [address] 08/25/2024 14:41:30 08/25/2024 15:26:20 care status 690236027 Z34.83 [id number] MD Roxana Posada [address],[place] [address] 08/25/2024 16:28:05 08/25/2024 16:32:44 Past history of gestational diabetes mellitus 636148003 Z86.32 [id number] MD Roxana Posada [address],[place] [address] 09/01/2024 13:22:25 09/01/2024 16:18:24 Gestational diabetes mellitus class A2 76659872 O24.419 [id number] MD Roxana Posada [address],[place] [address] 09/01/2024 13:22:47 09/05/2024 00:58:57 care status 381533891 Z34.83 [id number] MD Roxana Posada [address],[place] [address] 09/08/2024 15:33:55 09/08/2024 16:50:33 Gestational diabetes mellitus 54840681 O24.410 [id number] MD Roxana Posada [address],[place] [address] 09/08/2024 15:34:08 09/08/2024 16:50:00 Oligohydramnios 16848889 O41.03X0 Z3A.34 [id number] MD Roxana Posada [address],[place] [address] 09/08/2024 15:34:18 09/09/2024 01:16:04 [id number] MD Roxana Posada [address],[place] [address] 09/15/2024 15:02:18 09/15/2024 16:45:10 Gestational diabetes mellitus 10285561 O24.410 [id number] Dante Aponte MD [place] [address],[place] [address] 09/15/2024 15:02:40 09/15/2024 16:44:53 care status 978753667 Z34.83 [id number] Dante Aponte MD [place] [address],[place] [address] 09/22/2024 14:30:30 09/22/2024 17:02:37 Gestational diabetes mellitus 29348219 O24.410 [id number] Dante Aponte MD [place] [address],[place] [address] 09/22/2024 14:30:39 09/22/2024 16:26:54 care status 454032448 Z34.83 Health Concerns Section Related Observation LastModified by Organization Detai ls LastModified Time None Recorded Concern Status LastModified by Organization Details LastModified Time None Recorded Payers Encounter Date Sequence Insurance Name Policy Number Policy Goddard Covered Member ID Goddard Member ID Guarantor Name 09/22/2024 1 [employer] - ALLIED BENEFITS - OPEN ACCESS Yasmeen Ny [id number] Yasmeen Ny 09/22/2024 2 [facility] - DOS ON OR AFTER 20 (MEDICAID REPLACEMENT - HMO) Yasmeen Ny [id number] Yasmeen Ny OBGyn Episode Ob Episode Information Episode Created Date Number of Fetuses Patient Bloodtype Patient rh Status Prepregnancy Weight lbs Domestic Partner Domestic Partner Phone Father Name Physics Department Chair Status 04/07/20 24 1 A Positive OPEN Fetus Data First Name Last Name Admitted to NICU Weight (g) Sex Living Outcome Pediatric Complications Fetus ID Race Codes Race Delivery Type [id number] Problems Problem Notes Problem Name Start Date End Date Resolution Snomed Code Not e Pre-eclampsia 09/22/2024 190179461 Type 2 diabetes mellitus 45970906 managed [facility] 06/[facility] US and office visitConsult 08/03/24NST & US 08/23/24 1:15PM to start 2xwkly testing at 32wks confirm if pt schedule [facility] or our office?scheduled for US/BPP/NST weekly starting 06/02/24 pt decline Thursday NST pt scheduled on NST/OB Group B Streptococcus carrier [id number] + GBS in urine Rajeev Calculation Initial [...] Weight in lbs Pre/Post Dialysis Refused Weight 209.339182723735 BP Diastolic BP Location Tested BP Systolic [...] Type Weight in lbs Pre/Post Dialysis Refused 217.504420150814 BP Diastolic BP Location Tested BP Systolic BP Type 70 L arm 114 sitting Fetus Heart Rate Present A 145 Fetus Movement A No Comments no complaints, no problems, routine care, no contractions, no vaginal bleeding, no loss of fluid, no cramping Flowsheet Date 05/05/2024 Laonso Score Blood Edema Fundus Height Fundus Units [...] Type Weight in lbs Pre/Post Dialysis Refused 222.79309595448 BP Diastolic BP Location Tested BP Systolic [...] Type Weight in lbs Pre/Post Dialysis Refused 229.018347461199 BP Diastolic BP Location Tested BP Systolic [...] Weight in lbs Pre/Post Dialysis Refused Weight 231.563149067998 BP Diastolic BP Location Tested BP Systolic BP Type 75 L arm 116 sitting Fetus Heart Rate Present A 150 Fetus Movement A Yes Comments problem visit, vaginitis. Se e note. Flowsheet Date 07/28/2024 Alonso Score Blood Edema Fundus Height Fundus Units Glucose Ketones Leukocytes Nitrite Labor Signs Protein Cervic Dilation Cervic Effacement Cervic Station Type Weight in lbs Pre/Post Dialysis Refused Weight 231.227382167687 BP Diastolic BP Location Tested BP Systolic [...] Weight in lbs Pre/Post Dialysis Refused Weight [id number] BP Diastolic BP Location Tested BP Systolic [...] Weight in lbs Pre/Post Dialysis Refused Weight 242.2021971036 BP Diastolic BP Location Tested BP Systolic [...] Weight in lbs Pre/Post Dialysis Refused Weight 242.2438702026 BP Diastolic BP Location Tested BP Systolic BP Type 63 L arm 144 sitting Fetus Heart Rate Present Fetus Movement Comments Flowsheet Date 09/01/2024 Alonso Score Blood Edema Fundus Height Fundus Units Glucose Ketones Leukocytes Nitrite Labor Signs Protein Cervic Dilation Cervic Effacement Cervic Station Type Weight in lbs Pre/Post Dialysis Refused Weight 244.846566685348 BP Diastolic BP Location Tested BP Systolic [...] Weight in lbs Pre/Post Dialysis Refused Weight 244.957222399238 BP Diastolic BP Location Tested BP Systolic BP Type 87 L arm 137 sitting Fetus Heart Rate Present Fetus Movement Comments Flowsheet Date 09/08/2024 Alonso Score Blood Edema Fundus Height Fundus Units Glucose Ketones Leukocytes Nitrite Labor Signs Protein Cervic Dilation Cervic Effacement Cervic Station Type Weight in lbs Pre/Post Dialysis Refused Weight 243.802123657703 BP Diastolic BP Location Tested BP Systolic [...] Weight in lbs Pre/Post Dialysis Refused Weight 243.847107241416 BP Diastolic BP Location Tested BP Systolic [...] Weight in lbs Pre/Post Dialysis Refused Weight 247.235371705168 BP Diastolic BP Location Tested BP Systolic BP Type 71 L arm 122 sitting Fetus Heart Rate Present Fetus Movement Comments Flowsheet Date 09/15/2024 Alonso Score Blood Edema Fundus Height Fundus Units Glucose Ketones Leukocytes Nitrite Labor Signs Protein Cervic Dilation Cervic Effacement Cervic Station Type Weight in lbs Pre/Post Dialysis Refused 247.031081289382 BP Diastolic BP Location Tested BP Systolic BP Type 77 L arm 122 sitting Fetus Heart Rate Present A 145 Fetus Movement A Yes Comments no complaints, no problems, routine care, no contractions, no vaginal bleeding, no loss of fluid, no cramping Flowsheet Date 09/22/2024 Alonso Score Blood Edema Fundus Height Fundus Units Glucose Ketones Leukocytes Nitrite Labor Signs Protein Cervic Dilation Cervic Effacement Cervic Station Type Weight in lbs Pre/Post Dialysis Refused Weight 249.753399992881 BP Diastolic BP Location Tested BP Systolic BP Type 92 L arm 146 sitting Fetus Heart Rate Present Fetus Movement Comments Flowsheet Date 09/22/2024 Alonso Score Blood Edema Fundus Height Fundus Units Glucose Ketones Leukocytes Nitrite Labor Signs Protein Cervic Dilation Cervic Effacement Cervic Station Type Weight in lbs Pre/Post Dialysis Refused 249.080824203109 BP Diastolic BP Location Tested BP Systolic BP Type 92 L arm 146 sitting Fetus Heart Rate Present A 145 Fetus Movement A Yes Comments elevated blood pressure, lik иван preeclamptic, to deliver at 37 weeks, [facility] managing blood sugars. To induce and 6 days, 7 cm ABHAY, reactive NST. Menstrual History Last Menstrual Date Menses Monthly [...]
--- OUTSIDE RECORDS SUMMARY | 2024-09-23 10:06 | XMS_ITS | Clinical Summary ---
Author Organization [facility] Care Team Providers Care Dukey Rider Name Role Phone Unavailable Primary Care Provider Unavailabl e Social History Tobacco Use Types Packs/Day Years Used Date Smoking Tobacco: Never Assessed Comments Unknown Sex and Gender Information Value Date Recorded Sex Assigned at Not on file Legal Sex Female 12:57 PM [employer] Gender Identity Not on file Sexual Orientation [...]
--- OUTSIDE RECORDS SUMMARY | 2024-09-23 10:06 | XMS_ITS | Continuity of Care Document ---
Author Organization [facility] Address [address] [place] [address] Care Team Providers Care Coremaking Supervisor Name Role Phone RAFA ROSETIFFANIE Primary Care Provider Assessment Encounter Date Assessment Date Assessment LastModified by Organization Details LastModified Time 09/22/2024 09/22/2024 Patient is ___weeks . Discussed plan. [email or web address] Not available 09/22/2024 15:24:21 Plan of Treatment Reminders Order Date Submit [...] follo w-up No observ ation record ed. [email or web address] [facility] [address] [facility], [place], [address], 05/10/2024 16:46:36 04/07/20 24 04/07/2024 US, obste tric, nucha l trans lucen cy No observ ation record ed. [email or web address] Lottie [address], [place], [address], 04/07/2024 17:49:39 04/07/20 24 04/07/2024 US, obste tric, nucha l trans lucen cy No observ ation record ed. [email or web address] Aline [address], [place], [address], 04/07/2024 20:07:13 05/05/19 25 05/05/2024 US, obste tric, limit ed No observ ation record ed. [email or web address] [address], [place], [address], 05/05/2024 21:16:41 06/01/19 25 05/31/2024 US, obste tric, follo w-up No observ ation record ed. [email or web address] [facility] [address] [place] [address], [place], [address], 06/22/2024 11:58:36 06/29/19 25 06/28/2024 US, obste tric, follo w-up No observ ation record ed. [email or web address] [facility] [address] [facility], [place], [address], 06/30/2024 00:17:48 07/28/19 25 07/26/2024 US, obste tric, follo w-up No observ ation record ed. [facility] [address] [place] [address] [place], [address], 08/02/2024 12:21:50 08/26/19 25 08/23/2024 US, obste tric, follo w-up No observ ation record ed. [email or web address] [facility] [address] [facility], [place], [address], 08/26/2024 16:05:55 08/26/19 25 08/25/2024 non-s tress test No observ ation record ed. [email or web address] Lottie [address], [place], [address], 08/25/2024 16:29:32 09/01/19 25 08/30/2024 US, obste tric, follo w-up No observ ation record ed. [email or web address] [facility] [address] [facility], [place], [address], 09/01/2024 14:44:52 09/02/19 25 09/01/2024 non-s tress test No observ ation record ed. [email or web address] Lottie [address], [place], [address], 09/01/2024 16:07:12 09/08/19 25 09/06/2024 US, obste tric, follo w-up No observ ation record ed. [facility] [address] [facility], [place], [address], 09/20/2024 18:38:36 09/09/19 25 09/08/2024 non-s tress test No observ ation record ed. [email or web address] Lottie [address], [place], [address], 09/08/2024 16:31:27 09/09/19 25 09/08/2024 US, obste tric, limit ed No observ ation record ed. [email or web address] Lottie [address], [place], [address], 09/08/2024 17:53:42 09/09/19 25 09/08/2024 US, obste tric, limit ed No observ ation record ed. [address], [place], [address], 09/15/2024 11:13:07 09/16/19 25 09/13/2024 US, obste tric, follo w-up No observ ation record ed. [email or web address] [facility] [address] [place] [address], [place], [address], 09/20/2024 16:45:35 09/16/19 25 09/15/2024 non-s tress test No observ ation record ed. [email or web address] [place] [address] [address], [place], [address], 09/15/2024 15:48:04 09/23/19 25 09/22/2024 non-s tress test No observ ation record ed. [email or web address] Lottie [address], [place], [address], 09/22/2024 16:59:35 Result Notes None recorded. Problems Name Problem SNOMED Code Status Onset Date Resolution Date Notes Provider Name and Address Organization Details Recorded Time Finding of fertilit y Completed 201704/26/2020 Female infertil ity, unspecif ied;Prac sarath ID: 0001 Jorge zamarripa [facility] 14:54:13 Dysuria 37879101 Completed 201704/26/2020 Dysuria; Practice ID: 0001 Jorge zamarripa [facility] 14:54:28 Acute vaginiti s 56223550 Completed 201705/08/2020 Acute vaginiti s;Practi ce ID: 0001 Yadira zamarripa, [facility] 12:09:31 Female genital organ symptoms 167188569 Completed 201104/26/2020 Unspecif ied symptom associat ed with female genital organs;R ecorded Elsewher e: No Locat ion: [facility] S ource: EHR Content Checker ashlyn: N Richarti ce ID: 0001 Ezio lable Time: 03:00:00 PM Jorge Diaz [facility] 14:54:25 Body mass index 30+ - obesity 559509361 Completed 201505/08/2020 Body mass index (BMI) 45.0-49. 9, adult;Re corded Elsewher e: No Locat ion: [facility] S ource: EHR Content Checker ashlyn: N Richarti ce ID: 0001 Ezio lable Time: 05:30:00 PM [facility] 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 14:53:39 Syphilis test finding 450867809 Completed 201504/26/2020 Encntr screen for infectio ns w sexl mode of transmis s;Record ed Elsewher e: No Locat ion: [facility] S ource: EHR Content Checker ashlyn: N Richarti ce ID: 0001 Ezio lable Time: 05:30:00 PM Jorge Sanchezle [facility] 14:53:43 Obesity 145000226 Completed 201305/08/2020 LD ASA per MFM [facility] 12:09:[address] Concept Completed 201704/26/2020 Encntr for general adult medical exam w/o abnormal findings ;Recorde d Elsewher e: No Locat ion: Saji sandoval [facility] S ource: EHR Content Checker ashlyn: N Practi ce ID: 0001 Ezio lable Time: 08:30:00 AM [facility] 14:53:36 Screenin g for malignan t neoplasm of cervix Completed 201104/26/2020 Pap Smear;Pr actice ID: 0001 Jorge Diaz [facility] 14:53:52 Ill-defi meño intestin al infectio n Completed 201104/26/2020 No Show Fee;Prac sarath ID: 0001 Jorge Diaz [facility] 14:54:20 Amenorrh ea 43521003 Completed 201105/08/2020 AMENORRH EA;Pract ice ID: 0001 Yadira Mckeon [facility] 12:09:33 Pregnanc y test negative 434220307 Completed 201104/26/2020 Negative Pregnanc y Test;Pra ctice ID: 0001 Jorge Diaz [facility] 14:53:57 Polycyst ic ovaries Completed 201305/08/2020 Polycyst ic ovaries; Practice ID: 0001 Yadira zamarripa [facility] 12:09:44 Migraine 05248990 Completed 201305/08/2020 Migraine , unspecif ied without mention of intracta ble migraine ;Practic e ID: 0001 Yadira Mckeon [facility] 12:09:40 Adult health examinat ion Completed 201404/26/2020 Routine general medical examinat ion at a health care facility ;Practic e ID: 0001 Jorge zamarripa [facility] 14:54:37 Speciali zed medical examinat ion Completed 201404/26/2020 Other specifie d chlamydi al diseases ;Practic e ID: 0001 Jorge Diaz [facility] 14:53:40 Venereal disease screenin g Completed 201404/26/2020 Screenin g examinat ion for venereal disease; Practice ID: 0001 [facility] 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 14:53:34 Clinical finding Completed 201504/26/2020 Obesity, unspecif ied;Prac sarath ID: 0001 [facility] 14:54:15 Severe obesity 7683147682 9104 Completed 201504/26/2020 Morbid (severe) obesity due to excess calories ;Practic e ID: 0001 Jorge zamarripa [facility] 14:54:02 Primary amenorrh ea 395109997 Completed 201704/26/2020 Primary amenorrh ea;Pract ice ID: 0001 [facility] 01/07/202 1 14:53:54 Metaboli c syndrome X 706683056 Completed 201305/08/2020 Insulin resistan ce;Recor ded Elsewher e: No Locat ion: [facility] S ource: EHR Content Checker ashlyn: N Richarti ce ID: 0001 Ezio lable Time: 09:45:00 AM Yadira zamarripa, [facility] 1 12:09:39 Infectio n screenin g Completed 201504/26/2020 Encounte r for screenin g for oth infec/pa rastc diseases ;Recorde d Elsewher e: No Locat ion: [facility] S ource: EHR Content Checker ashlyn: N Practi ce ID: 0001 Ezio lable Time: 05:30:00 PM Jorge zamarripa, [facility] 1 14:54:11 Diabetes mellitus 69012794 Completed 201905/08/2020 type 2 Yadira zamarripa, [facility] 1 12:09:37 Anxiety 40339141 Completed 201905/08/2020 Zoloft Yadira Mckeon [facility], [facility] 1 12:09:34 Abnormal cervical Papanico laou smear 903314700 Completed 201905/08/20202014 Yadira Mckeon [facility], [facility] 1 12:09:30 Pregnanc y 09373767 Completed 201905/08/2020 Nehal zamarripa, [facility] 4 18:08:47 Type 2 diabetes mellitus 65090318 Completed Metformi n xr 2000mg qd Sent to [facility] for manageme nt- 05/16- NPH 26U AM/88U PM Increase 2 units when 1 consecut wili fasting >90 / Humalog 16U w/ bfast & 8Uw/ lunch & 32U w/ dinner. 6units with snack over 15g carbs. Nhi zamarripa, [facility] 13:40:41 Purpuric rash 358120902 Completed clotimaz ole/beta methazon e-Rxed [facility] 13:40:41 Obesity 799250424 Completed 2013 LD ASA per MFM Nhi zamarripa, [facility] 13:40:41 Marginal insertio n of umbilica l cord 21542659 Completed 2019 growth u/s [facility] 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 13:40:41 Anxiety 30966319 Completed 2019 Zoloft Nhi white [facility] 13:40:41 Pre-exis ting type 2 diabetes mellitus in pregnanc y 488982272 Completed 2020 DELIVER BY 37- not well controll ed. M may rec earlier. Nhi zamarripa, [facility] 13:40:41 Pre-exis ting type 2 diabetes mellitus in pregnanc y 513398441 Completed 202005/08/2020 Yadira Mckeon [facility], [facility] 12:09:45 Large for gestatio n age fetus 616844556 Completed potentia l 89% 05/11 Nhi white [facility] 13:40:41 Pregnanc y 67544383 Active 2023 Nehal Armendariz [facility] 4 18:08:47 Type 2 diabetes mellitus 86646621 Active managed by [facility]FM Sched [facility]10 [facility] 06/28 US and office visit Consult 08/03/24 NST & US 08/23/24 1:15PM to start 2xwkly antenata l testing at 32wks confirm if pt schedule [facility] or our office? schedule d for US/BPP/N ST weekly onTuesda ys starting 06/02/24 pt decline Thursday NST pt schedule d on s NST/OB Jenni Joe marilou [facility] 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 5 13:09:37 Group B Streptoc occus carrier 5768390387 103 Active + GBS in urine Jenni Diaz [facility] 5 13:09:37 Pre-ecla mpsia 075889640 Active 2024 Dante Aponte MD [address], [place], [address], [facility] 5 16:02:57 Problem Notes None recorded. Procedures Surgical History Date Name Laterality Status Provider Name and Address Organization Details Recorded Time 03/01/20 24 Date of Last Pap Smear completed Nehal Armendariz [facility] 04/07/2024 18:07:50 09/02/19 23 IUD Removal completed Dante Aponte MD [address], [place], [address], [facility] 09/01/2022 22:15:29 05/19/19 23 Colposcopy completed Dante Aponte MD [address], [place], [address], [facility] 05/19/2022 15:31:57 05/19/19 23 Colposcopy completed Alva Kimble [facility] 03/09/2023 16:31:33 05/19/19 23 Colposcopy completed Sarah Jordan [facility] 05/19/2022 14:35:43 07/28/19 22 IUD Insertion completed Dante Aponte MD [address], [place], [address], [facility] 07/27/2021 12:17:49 05/22/19 21 NST completed Bel Dennison MD [address], [place], [address], [facility] 05/22/2020 14:09:48 05/15/19 21 NST completed Bel Dennison MD [address], [place], [address], [facility] 05/15/2020 13:43:28 04/27/19 21 NST completed Bel Dennison MD [address], [place], [address], [facility] 04/27/2020 12:17:14 04/20/19 15 Tonsillectomy completed Alva Kimble [facility] 11/09/2019 16:35:35 Imaging Results None recorded. Procedure Notes None recorded. Medical Equipment None Reported. Allergies Allergen ID Allergen Name Allergen Category Reaction Reaction Severity Criticality Documentation Date Start Date Code Code System Note Provider Name and Address Organization Details Recorded Time 1407 lisinopri l medicatio n rash Not available Not available 11/09/2019 74784 RxNorm Alva zamarripa, [facility] 0 11:13:14 Medications Name Sig Start [...] Simental e: Yes Loca tion: Saji sandoval [facility] odify By: arun connoruntlinda DateTime : 02/13/20 03:00:00 PM Not Available [...] Elsewher e: No Locat ion: Saji sandoval [facility] odify By: richard kearns DateTime : 02/03/20 18 02:19:49 PM Not [...] Prescrib ed Elsewher e: No Locat ion: Gaylepablohui sandoval [facility] odify By: [email or web address] Encounhai r DateTime : 10/14/19 19 08:30:00 AM [...] Prescrib ed Elsewher e: No Locat ion: [facility] odify By: karine calix DateTime : [...] Elsewher e: No Locat ion: Saji sandoval [facility] odify By: [email or web address] miahk En counter DateTime : 01/16/20 12 03:00:00 [...] Elsewher e: No Locat ion: Saji sandoval [facility] odify By: claire Sandoval ncopatt DateTime : 06/07/19 16 01:29:48 PM Not [...] Available No t Available FreeStyle Herrera 2 Antlers 07/06 completed Not Available Not Available Not Available Fluzone Quad 9860-2523 (PF) 60 mcg (15 mcg x 4)/0.5 [...] Address Organization Details Last Updated DateTime 09/22/2024 079879.500 13 g 146 mm[Hg] 92 mm[Hg] Nehal Armendariz [facility] 09/22/2024 15:26:24 Date Recorded Body height Body mass index (BMI) Body weight Systolic blood pressure Diastolic blood pressure Provider Name and Address Organization Details Last Updated DateTime 09/22/2024 158.75 cm 44.8 kg/m2 683220.5 g 146 mm[Hg] 92 mm[Hg] DIANE Melanie [facility] 16:58:54 Social History Question Answer Notes LastModified by Organizat ion Details LastModified Time Tobacco Smoking Status Never Smoker Alva zamarripa, [facility] 11/09/2019 16:27:58 Are You Blind Or Do You Have Difficulty Seeing? No [email or web address] Information n ot available 03/09/2023 What Is Your Level Of Caffeine Consumption? Occasional [email or web address] Information not available 03/09/2023 In The 14 Days Before Symptom Onset, Have You Had Close Contact With A Laboratory-confirm ed COVID-19 While That Case Was Ill? No [email or web address] Information n ot available 03/09/2023 In The 14 Days Before Symptom Onset, Have You Had Close Contact With A Person Who Is Under Investigation For COVID-19 While That Person Was Ill? No [email or web address] Information not available 03/09/2023 Have You Been To An Area Known To Be High Risk For COVID-19? No [email or web address] Information not available 03/09/2023 Are You Deaf Or Do You Have Serious Difficulty Hearing? No [email or web address] Information not available 03/09/2023 What Type Of Diet Are You Following? DIABETIC [email or web address] Information n ot available 03/09/2023 Which Illicit Or Recreational Drugs Have You Used? [place] Information not available 11/09/2019 What Was The Date Of Your Most Recent Tobacco Screening? 03/09/2023 [email or web address] Information not available 03/09/2023 Do You Use Your Seat Belt Or Car Seat Routinely? Yes [email or web address] Information not available 03/09/2023 Do You Have Smoke And Carbon Monoxide Detectors In Your Home? Yes [email or web address] Information not available 03/09/2023 How Much Tobacco Do You Smoke? No [email or web address] Information not available 11/09/2019 Do You Use Sunscreen Routinely? Yes [email or web address] Information not available 03/09/2023 Do You Have Difficulty Walking Or Climbing Stairs? No [email or web address] Information not available 03/09/2023 Sex: Unknown Functional Status Question Answer Note LastModified by Organizat ion Details LastModified Time What is your level of alcohol consumption? Occasional [email or web address] Information not available 11/09/2019 Do you or have you ever used smokeless tobacco? Never used smokeless tobacco [email or web address] Information not available 11/09/2019 Are you able to walk? YESWOREST [email or web address] Information not available 03/09/2023 Are you able to care for yourself? Yes [email or web address] Information not available 03/09/2023 Do you have difficulty dressing or bathing? No [email or web address] Information not available 03/09/2023 Do you or have you ever used e-cigarettes or vape? Never used electronic cigarettes [email or web address] Information not available 11/09/2019 What is your exercise level? Occasional [email or web address] Information not available 11/09/2019 Mental Status Question Answer Note LastModified by Organization D etails LastModified Time Do you feel stressed (tense, restless, nervous, or anxious, or unable to sleep at night)? [id number] [email or web address] Information not available 03/09/2023 Family History Relationship Description Onset Age of this Age Resolved Age Notes LastModified by Organization Details LastModified Time Maternal Grandmother Diabetes mellitus Not available 11/08 16:27:24 Maternal Aunt Diabetes mellitus [email or web address] Not available 11/08 16:27:24 Maternal Aunt Malignant tumor of cervix [email or web address] Not available 11/08 16:27:36 Maternal Aunt Malignant tumor of breast [email or web address] Not available 11/08 16:27:47 Medical History Condition [...] SNOMED-CT Code Diagnosis ICD10 Code Diagnosis Note [id number] MD Roxana Posada [address],[place] [address] 08/25/2024 14:41:30 08/25/2024 15:26:20 care status 727956460 Z34.83 [id number] MD Roxana Posada [address],[place] [address] 08/25/2024 16:28:05 08/25/2024 16:32:44 Past history of gestational diabetes mellitus 090850385 Z86.32 [id number] MD Roxana Posada [address],[place] [address] 09/01/2024 13:22:25 09/01/2024 16:18:24 Gestational diabetes mellitus class A2 55646885 O24.419 [id number] MD Roxana Posada [address],[place] [address] 09/01/2024 13:22:47 09/05/2024 00:58:57 care status 610808926 Z34.83 [id number] MD Roxana Posada [address],[place] [address] 09/08/2024 15:33:55 09/08/2024 16:50:33 Gestational diabetes mellitus 15248233 O24.410 [id number] MD Roxana Posada [address],[place] [address] 09/08/2024 15:34:08 09/08/2024 16:50:00 Oligohydramnios 09134505 O41.03X0 Z3A.34 [id number] MD Roxana Posada [address],[place] [address] 09/08/2024 15:34:18 09/09/2024 01:16:04 [id number] MD Roxana Posada [address],[place] [address] 09/15/2024 15:02:18 09/15/2024 16:45:10 Gestational diabetes mellitus 44077698 O24.410 [id number] Dante Aponte MD Lottie [address],[place] [address] 09/15/2024 15:02:40 09/15/2024 16:44:53 care status 876471119 Z34.83 [id number] Dante Aponte MD Lottie [address],[place] [address] 09/22/2024 14:30:30 09/22/2024 17:02:37 Gestational diabetes mellitus 94107146 O24.410 [id number] Dante Aponte MD Lottie [address],[place] [address] 09/22/2024 14:30:39 09/22/2024 16:26:54 care status 292688593 Z34.83 Health Concerns Section Related Observation LastModified by Organization Detai ls LastModified Time None Recorded Concern Status LastModified by Organization Details LastModified Time None Recorded Payers Encounter Date Sequence Insurance Name Policy Number Policy Goddard Covered Member ID Goddard Member ID Guarantor Name 09/22/2024 1 [employer] - ALLIED BENEFITS - OPEN ACCESS Yasmeen Ny [id number] Yasmeen Ny 09/22/2024 2 [facility] - DOS ON OR AFTER 20 (MEDICAID REPLACEMENT - HMO) Yasmeen Ny [id number] Yasmeen Ny OBGyn Episode Ob Episode Information Episode Created Date Number of Fetuses Patient Bloodtype Patient rh Status Prepregnancy Weight lbs Domestic Partner Domestic Partner Phone Father Name Operations Planner Status 04/07/20 24 1 A Positive OPEN Fetus Data First Name Last Name Admitted to NICU Weight (g) Sex Living Outcome Pediatric Complications Fetus ID Race Codes Race Delivery Type [id number] Problems Problem Notes Problem Name Start Date End Date Resolution Snomed Code Not e Pre-eclampsia 09/22/2024 702522337 Type 2 diabetes mellitus 41658871 managed by MS beltran Raghavendra [facility] ST[facility] 05/10 [facility] 06/28 US and office visitConsult 08/03/24NST & US 08/23/24 1:15PM to start 2xwkly testing at 32wks confirm if pt schedule [facility] or our office?scheduled for US/BPP/NST weekly starting 06/02/24 pt decline Thursday NST pt scheduled on NST/OB Group B Streptococcus carrier [id number] + GBS in urine Rajeev Calculation Initial [...] Latest Days Gestation 0 [email or web address] 04/07/2024 10/20/19 0 Pre-raz Flowsheet Flowsheet Date 04/07/2024 Alonso Score Blood Edema Fundus Height Fundus Units Glucose Ketones Leukocytes Nitrite Labor Signs Protein Cervic Dilation Cervic Effacement Cervic Station Type Weight in lbs Pre/Post Dialysis Refused Weight 209.752633217011 BP Diastolic BP Location Tested BP Systolic [...] Type Weight in lbs Pre/Post Dialysis Refused 217.967425568844 BP Diastolic BP Location Tested BP Systolic [...] Type Weight in lbs Pre/Post Dialysis Refused 222.84621157937 BP Diastolic BP Location Tested BP Systolic [...] Type Weight in lbs Pre/Post Dialysis Refused 229.955684542599 BP Diastolic BP Location Tested BP Systolic [...] Weight in lbs Pre/Post Dialysis Refused Weight 231.215073869351 BP Diastolic BP Location Tested BP Systolic BP Type 75 L arm 116 sitting Fetus Heart Rate Present A 150 Fetus Movement A Yes Comments problem visit, vaginitis. Se e note. Flowsheet Date 07/28/2024 Alonso Score Blood Edema Fundus Height Fundus Units Glucose Ketones Leukocytes Nitrite Labor Signs Protein Cervic Dilation Cervic Effacement Cervic Station Type Weight in lbs Pre/Post Dialysis Refused Weight 231.148155225541 BP Diastolic BP Location Tested BP Systolic [...] Weight in lbs Pre/Post Dialysis Refused Weight 233.408728227709 BP Diastolic BP Location Tested BP Systolic [...] Weight in lbs Pre/Post Dialysis Refused Weight 242.7745725896 BP Diastolic BP Location Tested BP Systolic [...] Weight in lbs Pre/Post Dialysis Refused Weight 242.6382885701 BP Diastolic BP Location Tested BP Systolic BP Type 63 L arm 144 sitting Fetus Heart Rate Present Fetus Movement Comments Flowsheet Date 09/01/2024 Alonso Score Blood Edema Fundus Height Fundus Units Glucose Ketones Leukocytes Nitrite Labor Signs Protein Cervic Dilation Cervic Effacement Cervic Station Type Weight in lbs Pre/Post Dialysis Refused Weight 244.983189602962 BP Diastolic BP Location Tested BP Systolic [...] Weight in lbs Pre/Post Dialysis Refused Weight 244.257680075341 BP Diastolic BP Location Tested BP Systolic BP Type 87 L arm 137 sitting Fetus Heart Rate Present Fetus Movement Comments Flowsheet Date 09/08/2024 Alonso Score Blood Edema Fundus Height Fundus Units Glucose Ketones Leukocytes Nitrite Labor Signs Protein Cervic Dilation Cervic Effacement Cervic Station Type Weight in lbs Pre/Post Dialysis Refused Weight 243.297936198222 BP Diastolic BP Location Tested BP Systolic [...] Weight in lbs Pre/Post Dialysis Refused Weight 243.181361408352 BP Diastolic BP Location Tested BP Systolic [...] Weight in lbs Pre/Post Dialysis Refused Weight 247.715786360213 BP Diastolic BP Location Tested BP Systolic BP Type 71 L arm 122 sitting Fetus Heart Rate Present Fetus Movement Comments Flowsheet Date 09/15/2024 Alonso Score Blood Edema Fundus Height Fundus Units Glucose Ketones Leukocytes Nitrite Labor Signs Protein Cervic Dilation Cervic Effacement Cervic Station Type Weight in lbs Pre/Post Dialysis Refused 247.960555470345 BP Diastolic BP Location Tested BP Systolic [...] Weight in lbs Pre/Post Dialysis Refused Weight 249.756692496546 BP Diastolic BP Location Tested BP Systolic BP Type 92 L arm 146 sitting Fetus Heart Rate Present Fetus Movement Comments Flowsheet Date 09/22/2024 Alonso Score Blood Edema Fundus Height Fundus Units Glucose Ketones Leukocytes Nitrite Labor Signs Protein Cervic Dilation Cervic Effacement Cervic Station Type Weight in lbs Pre/Post Dialysis Refused 249.455937017480 BP Diastolic BP Location Tested BP Systolic BP Type 92 L arm 146 sitting Fetus Heart Rate Present A 145 Fetus Movement A Yes Comments elevated blood pressure, lik иван preeclamptic, to deliver at 37 weeks, [facility] managing blood sugars. To induce and [...]
--- OUTSIDE RECORDS SUMMARY | 2024-09-23 10:06 | XMS_ITS | Clinical Summary ---
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 Testing performed by: [address] [address] Blood 09/24/2023 8:42 AM CDT 09/24/2023 9:06 AM CDT Sajan Pollard MD LAB BLOOD ORDERABL ES Final Result Performing Organization Address City/[facility]/ZIP Co de Phone Number KELLEN [address] [facility] [place] [address] * (ABNORMAL) Hemoglobin A1c (09/24/2023 8:42 AM CDT) Hgb A1C 6.8(H) 4.0 - 5.6 % Comment:Testing performed by : [address] [address] Estimated Average Glucose 148 mg/dL KELLEN Comment: The ADA recommends reporting an estimated Average Glucose (eAG) with all Hemoglobin A1c results using the equation derived from a study of 507 normal and diabetic adults. Minority populations were underrepresented and children were not included. (Diabetes Care 31:3192-1995, 2008). The eAG is not equivalent to a fasting glucose. Testing performed by: [address] [address] Blood 09/24/2023 8:42 AM CDT 09/24/2023 9:06 AM CDT Narrative KELLEN - 09/24/2023 9:40 AM CDT PRE SURGERY TESTING ONLY Sajan Pollard MD LAB BLOOD ORDERABL ES Final Result KELLEN [address] [facility] [place] [address] from Last 3 Months or Most Recently Relevant to Health Maintenance Insurance [facility] CHOICE PLUS [facility] HMO/PPO Address: [address] [address] [place] [address] [employer] [address] [employer] OPEN ACCESS Care Teams Outdoor Pursuits Instructor Relationship Specialty Start Date End Date Chuck Nelson NP PCP - General 01/26/19 Christopher Nelson MD [address] [place] [address] Consulting Physician General Surgery 09/30/23
--- OUTSIDE RECORDS SUMMARY | 2024-09-23 10:06 | XMS_ITS | Referral Summary ---
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 Testing performed by: [address] [address] Blood 09/24/2023 8:42 AM CDT 09/24/2023 9:06 AM CDT us Sajan Pollard MD LAB BLOOD ORDERABL ES Final Result [facility] [address] [facility] [place] [address] * (ABNORMAL) Hemoglobin A1c (09/24/2023 8:42 AM CDT) Hgb A1C 6.8(H) 4.0 - 5.6 % Comment:Testing performed by : [address] [address] Estimated Average Glucose 148 mg/dL KELLEN TARANGO Comment: The ADA recommends reporting an estimated Average Glucose (eAG) with all Hemoglobin A1c results using the equation derived from a study of 507 normal and diabetic adults. Minority populations were underrepresented and children were not included. (Diabetes Care 31:3996-8711, 2008). The eAG is not equivalent to a fasting glucose. Testing performed by: [facility], [address] [place] [address], [place]., [address] Blood 09/24/2023 8:42 AM CDT 09/24/2023 9:06 AM CDT Marquita TARANGO - 09/24/2023 9:40 AM CDT PRE SURGERY TESTING ONLY us Sajan Pollard MD LAB BLOOD ORDERABL ES Final Result KELLEN [address] [facility] [place] [address] from Last 3 Months or Most Recently Relevant to Health Maintenance Insurance [facility] CHOICE PLUS [facility] H[facility]/PPO Address: [facility] [address] [place] [address] [employer] OPEN ACCESS [employer] OPEN ACCESS Care Teams Manufacturing Test Technician Relationship Specialty Start Date End Date Chuck Nelson NP PCP - General 01/26/19 Christopher Nelson MD [address] [place] [address] Consulting Physician General Surgery 09/30/23
--- OUTSIDE RECORDS SUMMARY | 2024-09-23 10:06 | XMS_ITS | Encounter Summary ---
Author Organization [facility] Address [address] [facility] [place] [address] Care Team Providers Care Shank Turner Name Role Phone Chuck Nelson POSITIVE PRINTER OPERATOR-CUTTER TENDER Primary Care Pro vider Reason for Visit * Reason Onset Date Comments MEDICATION REFILL 05/23/2024 Encounter Details Date Type Department Care Team (Late st Contact Info) Description 05/23/2024 Refill [facility] MATERNAL/ EVALUATION UNIT [address] [facility] [place] [id number] Luana Plummer MD [address] [facility] [address] [place] [address] MEDICATION REFILL Social History Tobacco [...] and heating? Not hard at all 02/24/2024 [facility] [place] of Occupat ional Health - Occupational Stress [...] things needed for daily living? No 02/24/2024 [place] Depression Scale Answer Date Recorded [place] Depression Scale Total 1 03/01/2024 The thought [...] any time in the past 12 m [facility], were you homeless or living in a assisted (including now)? Yes 02/24/2024 Estimated Date of [...] Info) Description 09/26/2024 9:30 AM CDT Appointment [facility] MATERNAL/ EVALUATION UNIT [facility] [address] [place] [address] 09/26/2024 10:30 AM CDT Appointment [facility] MATERNAL/ EVALUATION UNIT [facility] [address] [place] [address] 09/26/2024 11:15 AM CDT Appointment [facility] MATERNAL/ EVALUATION UNIT [facility] [address] [place] [address] 09/26/2024 11:30 AM CDT Appointment [facility] MATERNAL/ EVALUATION UNIT [address] [place] [address] 09/27/2024 1:00 PM CDT Appointment [facility] MATERNAL/ EVALUATION UNIT [address] [place] [address] 09/27/2024 2:15 PM CDT Appointment [facility] MATERNAL/ EVALUATION UNIT [address] [place] [address] 09/29/2024 1:00 PM CDT Appointment [facility] MATERNAL/ EVALUATION UNIT [address] [place] [address] 10/03/2024 9:30 AM CDT Appointment [facility] MATERNAL/ EVALUATION UNIT [address] [place] [address] 10/03/2024 10:30 AM CDT Appointment [facility] MATERNAL/ EVALUATION UNIT [address] [place] [address] 10/06/2024 1:00 PM CDT Appointment [facility] MATERNAL/ EVALUATION UNIT [address] [place] [address] documented as of this encounter Visit Diagnoses Diagnosis Pre-existing type 2 diabetes mellitus during , antepartum (HCC) documented in this encounter Care Teams Shank Turner Relationship Specialty Start Date End Date Chuck Nelson APRN-EMILY [address] [place] [address] [phone] PCP - General Nurse Practitioner 08/25/22 documented as of this encounter
--- OUTSIDE RECORDS SUMMARY | 2024-09-23 10:06 | XMS_ITS | Encounter Summary ---
Author Organization [facility] Address [address] [facility] [place] [address] Care Team Providers Care Athletics Director Name Role Phone Chuck Nelson BAR HOST/HOSTESS-FOOD AND BEVERAGE SERVER Primary Care Pro vider Encounter Details Date Type Department Care Team (Latest Contact Info) Description 09/22/2024 7:30 AM CDT - 09/22/2024 8:29 AM CDT Hospital Encounter [facility] MATERNAL/ EVALUATION UNIT [address] [facility] [place] [address] Eduar Hernandez MD [address] [facility] [address] [place] [address] Discharge Disposition: Home or Self Care Social [...] and heating? Not hard at all 08/23/2024 [facility] [place] of Occupat ional Health - Occupational Stress [...] things needed for daily living? No 08/23/2024 [place] Depression Scale Answer Date Recorded [place] Depression Scale Total 1 03/01/2024 The thought [...] in the past 12 m [facility], were you homeless or living in [...] type 2 diabetes mellitus during , antepartum ([facility]) Take 2 (two) tablets by mouth once daily 100 tablet 1 04/05/2024 blood glucose (OneTouch Verio) test stripIndications :Pre-existing type 2 diabetes mellitus during , antepartum ([facility]),Type 2 diabetes mellitus with stage 1 chronic kidney disease, with long-term current use of insulin ([facility]) To monitor blood glucose (sugar) 4x daily- fasting and 1 hour after meals 100 strip 5 03/01/2024 Blood Glucose Monitoring Suppl ([employer]) w/Device KITIndications:P re-existing type 2 diabetes mellitus during , antepartum (HCC),Type 2 diabetes mellitus with stage 1 chronic kidney disease, with long-term current use of insulin ([facility]) Use 1 Each as directed 1 kit 03/01/2024 cephalexin (Keflex) 500 MG capsule Take 1 (one) capsule by mouth 2 times daily 14 capsule 08/31/2024 Clindamycin Phosphate (Clindamycin Phos, Once-Daily,) 1 % GEL APPLY A THIN LAYER TOPICALLY TO AFFECTED AREA TWICE DAILY Continuous Glucose Sensor (DexGarageSkins G7 Sensor) MISCIndications: Pre-existing type 2 diabetes mellitus during , antepartum ([facility]) Use 1 Each Continuous for 10 days 3 Each 5 09/13/2024 escitalopram (Lexapro) 20 MG tablet Take 1 (one) tablet by mouth once daily fluconazole (Diflucan) 150 MG tabletIndication s:Vaginitis affecting in third trimester, antepartum ([facility]) Take 1 (one) tablet by mouth once daily Take second tablet if symptoms persist after 72 hours. 2 tablet 09/06/2024 fluticasone propionate (Flonase) 50 MCG/ACT nasal spray USE 1 SPRAY(S) IN EACH NOSTRIL ONCE DAILY Glucagon (Baqsimi One Pack) 3 MG/DOSE POWD [place] 1 Each into the nose as needed 1 Each 03/15/2024 hydrOXYzine HCl (Atarax) 25 MG tablet Take 1 (one) tablet by mouth 3 times daily insulin glargine (Lantus/Semglee) 100 units/mL penIndications:T ype 2 diabetes mellitus with hyperglycemia, unspecified whether senior living insulin use ([facility]) Inject 24 units in the morning and 24 units at bedtime. Take dosages approximately 12 hours apart. Increase dose as directed due to increasing insulin requirements during . 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 Inject 6u with snacks. Inject 0-15 minutes before meals. Increase dose as directed during . Max total daily dose = 100 units. 30 mL 5 08/23/2024 Insulin Pen Needle (TechLite Pen [place]) 32G X 4 MM MISCIndications: Pre-existing type 2 diabetes mellitus during , antepartum ([facility]) Use 1 Each 5 times daily 150 Each 5 08/23/2024 Lancets (ONETOUCH DELICA PLUS 33G EXTRA FINE LANCET)Indicatio ns:Pre-existing type 2 diabetes mellitus during , antepartum ([facility]),Type 2 diabetes mellitus with stage 1 chronic kidney disease, with long-term current use of insulin ([facility]) To monitor blood glucose (sugar) 4x daily- [...] Info) Description 09/26/2024 9:30 AM CDT Appointment [facility] MATERNAL/ EVALUATION UNIT [facility] [address] [place] [address] 09/26/2024 10:30 AM CDT Appointment [facility] MATERNAL/ EVALUATION UNIT [facility] [address] [place] [address] 09/26/2024 11:15 AM CDT Appointment [facility] MATERNAL/ EVALUATION UNIT [facility] [address] [place] [address] 09/26/2024 11:30 AM CDT Appointment [facility] MATERNAL/ EVALUATION UNIT [address] [place] [address] 09/27/2024 1:00 PM CDT Appointment [facility] MATERNAL/ EVALUATION UNIT [address] [place] [address] 09/27/2024 2:15 PM CDT Appointment [facility] MATERNAL/ EVALUATION UNIT [address] [place] [address] 09/29/2024 1:00 PM CDT Appointment [facility] MATERNAL/ EVALUATION UNIT [address] [place] [address] 10/03/2024 9:30 AM CDT Appointment [facility] MATERNAL/ EVALUATION UNIT [address] [place] [address] 10/03/2024 10:30 AM CDT Appointment [facility] MATERNAL/ EVALUATION UNIT [address] [place] [address] 10/06/2024 1:00 PM CDT Appointment [facility] MATERNAL/ EVALUATION UNIT [address] [place] [address] documented as of this encounter Procedures Procedure Name Priority Date/Time Associated Diagnosis Comments SONOGRAM - LIMITED Routine 09/22/2024 7: 37 AM CDT documented in this encounter Results * SONOGRAM - LIMITED (09/22/2024 7:37 AM CDT) Linked Results Indication ======== Diabetes mellitus, type II (on insulin) Obesity, Class II Normal echo 07/20/24 History ====== OB History 2. Para 1 [id number] Lab Tests Test Date Result NIPT 04/05/2024 [...] with twice weekly NST Coding ====== Procedures 27598: US Uterus Limited [facility] katena PACS Anatomical Region Laterality Modality Other 09/22/2024 7:37 AM CDT Eduar Hernandez MD [facility] ORDERABLES Edited Result - Final documented in this encounter Visit Diagnoses Not on filedocumented in this encounter Care Teams Athletics Director Relationship Specialty Start Date End Date Chuck Nelson, FREDERICK-FOOD AND BEVERAGE SERVER [address] [place] [phone] PCP - General Nurse Practitioner 08/25/22 documented as of this encounter
--- OUTSIDE RECORDS SUMMARY | 2024-09-23 10:07 | XMS_ITS | Encounter Summary ---
Author Organization [facility] Address [address] [place] [address] Care Team Providers Care Head Strength And Conditioning Coach Name Role Phone Chuck Nelson MOTION STUDY ENGINEER-COMPACT ASSEMBLER Primary Care Pro vider Reason for Visit * Reason Onset Date Comments MEDICATION REFILL 03/08/2024 Encounter Details Date Type Department Care Team (Late st Contact Info) Description 03/08/2024 Refill [facility] MATERNAL/ EVALUATION UNIT [address] [facility] [place] [phone] Eduar Hernandez MD [address] [facility] [address] [place] [address] MEDICATION REFILL Social History Tobacco Use Types [...] and heating? Not hard at all 02/24/2024 [facility] [place] of Occupat ional Health - Occupational Stress [...] things needed for daily living? No 02/24/2024 [place] Depression Scale Answer Date Recorded [place] Depression Scale Total 1 03/01/2024 The thought [...] any time in the past 12 m [facility], were you homeless or living [...] Info) Description 09/26/2024 9:30 AM CDT Appointment [facility] MATERNAL/ EVALUATION UNIT [address] [place] [address] 09/26/2024 10:30 AM CDT Appointment [facility] MATERNAL/ EVALUATION UNIT [facility] [place] [address] 09/26/2024 11:15 AM CDT Appointment [facility] MATERNAL/ EVALUATION UNIT [facility] [address] [place] [address] 09/26/2024 11:30 AM CDT Appointment [facility] MATERNAL/ EVALUATION UNIT [address] [place] [address] 09/27/2024 1:00 PM CDT Appointment [facility] MATERNAL/ EVALUATION UNIT [address] [place] [address] 09/27/2024 2:15 PM CDT Appointment [facility] MATERNAL/ EVALUATION UNIT [address] [place] [address] 09/29/2024 1:00 PM CDT Appointment [facility] MATERNAL/ EVALUATION UNIT [address] [place] [address] 10/03/2024 9:30 AM CDT Appointment [facility] MATERNAL/ EVALUATION UNIT [address] [place] [address] 10/03/2024 10:30 AM CDT Appointment [facility] MATERNAL/ EVALUATION UNIT [address] [place] [address] 10/06/2024 1:00 PM CDT Appointment [facility] MATERNAL/ EVALUATION UNIT [address] [place] [address] documented as of this encounter Visit Diagnoses Diagnosis Pre-existing type 2 diabetes mellitus during , antepartum (HCC) Type 2 diabetes mellitus with stage 1 chronic kidney disease, with long-term current use of insulin (HCC) documented in this encounter Care Teams Head Strength And Conditioning Coach Relationship Specialty Start Date End Date Chuck Nelson APRN-EMILY [address] [place] [phone] PCP - General Nurse Practitioner 08/25/22 documented as of this encounter
--- OUTSIDE RECORDS SUMMARY | 2024-09-23 10:07 | XMS_ITS | Data Portability ---
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 Discussed plan. Not available 09/15/2024 15:43:51 09/22/2024 09/22/2024 Patient is ___weeks . Discussed plan. Not available 09/22/2024 15:24:21 Plan of Treatment [...] recorded. Imaging non-stres s test 2024 025 [email or web address] [address], [address], [place], [address], 09/22/2024 17:02:37 non-stres s test 2024 025 [email or web address] [address], [address], [place], [address], 09/15/2024 16:45:10 non-stres s test 2024 025 [email or web address] [address], [address], [place], [address], 09/09/2024 01:14:22 Medication Orders None recorded. Patient TargetsNo targets recorded. Patient InstructionsNo instructions recorded. Reason for Referral None Reported. Results Created Date Observation Date Name Description Value Unit Range Abnormal Flag Note LastModifiedBy Organization Detail LastModifiedTime 09/16/1909/15/2024 CULTU RE: GROUP B STREP SCREE N, REFLE X SUSCE PTIBI LITY result report SEE RESULT S BELOW abnormal Test: Cultu re: Group B Strep , Refle x Susce ptibi lity ([facility] ) Speci men Sourc e: Vagin a/Rec lynne Speci men Type: Vagin al/Re ctal Speci men Date: 2024 1649 Resul t Date: 1802 Resul t Statu s: Final resul t Abnor mal: Yes Resul ting Lab: [facility] [address] [facility] [address] Tel: CULTU RE ----- ----- ----- --- Posit wili for Strep tococ cus agala ctiae (Grou p B) (Abno rmal) Clind amyci n = resis tant, eryth romyc in = resis tant. Cefaz danette may be used for intra partu m proph ylaxi s in penic illin -delfina rgic women at low risk, and Vanco mycin is recom tracy d for women at high risk for anaph ylaxi s. Kaleighlala ptibi lity testi ng is not neces susan for these drugs . Not Available [facility] (Lab) [address] [facility], [place], [address], 09/20/2024 19:05:42 08/26/19 25 08/23/2024 US, obste tric, follo w-up No observ ation record ed. [email or web address] [facility] [address] , [place], [address], 08/26/2024 16:05:55 08/26/19 25 08/25/2024 non-s tress test No observ ation record ed. [email or web address] [place] [address], [place], [address], 08/25/2024 16:29:32 09/01/19 25 08/30/2024 US, obste tric, follo w-up No observ ation record ed. [email or web address] [facility] [address] [facility], [place], [address], 09/01/2024 14:44:52 09/02/19 25 09/01/2024 non-s tress test No observ ation record ed. [email or web address] [place] [address], [place], [address], 09/01/2024 16:07:12 09/08/19 25 09/06/2024 US, obste tric, follo w-up No observ ation record ed. [email or web address] [facility] [address] , [place], [address], 09/20/2024 18:38:36 09/09/19 25 09/08/2024 non-s tress test No observ ation record ed. [email or web address] [place] [address], [place], [address], 09/08/2024 16:31:27 09/09/19 25 09/08/2024 , obste tric, limit ed No observ ation record ed. veronica [place] [address], [place], [address], 09/08/2024 17:53:42 09/09/19 25 09/08/2024 US, obste tric, limit ed No observ ation record ed. [email or web address] [address], [place], [address], 09/15/2024 11:13:07 09/16/19 25 09/13/2024 US, obste tric, follo w-up No observ ation record ed. [facility] [address] [place] [address], [place], [address], 09/20/2024 16:45:35 09/16/19 25 09/15/2024 non-s tress test No observ ation record ed. [place] [address], [place], [address], 09/15/2024 15:48:04 09/23/19 25 09/22/2024 non-s tress test No observ ation record ed. del [place] [address], [place], [address], 09/22/2024 16:59:35 Result Notes None recorded. Problems Name Problem SNOMED Code Status Onset Date Resolution Date Notes Provider Name and Address Organization Details Recorded Time Finding of fertilit y Completed 201704/26/2020 Female infertil ity, unspecif ied;Prac sarath ID: 0001 Jorge Diaz [facility] [place] [facility] 14:54:13 Dysuria 74765126 Completed 201704/26/2020 Dysuria; Practice ID: 0001 Jorge Diaz [facility] 14:54:28 Acute vaginiti s 35445628 Completed 201705/08/2020 Acute vaginiti s;Practi ce ID: 0001 Yadira Mckeon [facility] 12:09:31 Female genital organ symptoms 599218460 Completed 201104/26/2020 Unspecif ied symptom associat ed with female genital organs;R ecorded Elsewher e: No Locat ion: [facility] S ource: EHR Want Ad Supervisor ashlyn: N Richarti ce ID: 0001 Ezio lable Time: 03:00:00 PM Jorge Diaz [facility] 14:54:25 Body mass index 30+ - obesity 848379498 Completed 201505/08/2020 Body mass index (BMI) 45.0-49. 9, adult;Re corded Elsewher e: No Locat ion: [facility] S ource: EHR Want Ad Supervisor ashlyn: N Practi ce ID: 0001 Ezio lable Time: 05:30:00 PM Yadira Mckeon [facility] 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 14:53:39 Syphilis test finding 461821015 Completed 201504/26/2020 Encntr screen for infectio ns w sexl mode of transmis s;Record ed Elsewher e: No Locat ion: [facility] S ource: EHR Want Ad Supervisor ashlyn: N Practi ce ID: 0001 Ezio lable Time: 05:30:00 PM Jorge Diaz [facility] 14:53:43 Obesity 399189489 Completed 201305/08/2020 LD ASA per [facility]:09:[address] Concept Completed 201704/26/2020 Encntr for general adult medical exam w/o abnormal findings ;Recorde d Elsewher e: No Locat ion: [facility] S ource: EHR Want Ad Supervisor ashlyn: N Practi ce ID: 0001 Ezio lable Time: 08:30:00 AM Jorge Diaz [facility] 14:53:36 Screenin g for malignan t neoplasm of cervix Completed 201104/26/2020 Pap Smear;Pr actice ID: 0001 Jorge Diaz [facility] 14:53:52 Ill-defi meño intestin al infectio n Completed 201104/26/2020 No Show Fee;Prac sarath ID: 0001 Jorge Diaz [facility] 14:54:20 Amenorrh ea 65602819 Completed 201105/08/2020 AMENORRH EA;Pract ice ID: 0001 Yadira Mckeon [facility], [facility] 12:09:33 Pregnanc y test negative 319717713 Completed 201104/26/2020 Negative Pregnanc y Test;Pra ctice ID: 0001 Jorge Diaz [facility] 14:53:57 Polycyst ic ovaries Completed 201305/08/2020 Polycyst ic ovaries; Practice ID: 0001 [facility] 12:09:44 Migraine 64692150 Completed 201305/08/2020 Migraine , unspecif ied without mention of intracta ble migraine ;Practic e ID: 0001 [facility] 12:09:40 Adult health examinat ion Completed 201404/26/2020 Routine general medical examinat ion at a [facility] facility ;Practic e ID: 0001 Jorge Diaz [facility] 14:54:37 Speciali zed medical examinat ion Completed 201404/26/2020 Other specifie d chlamydi al diseases ;Practic e ID: 0001 Jorge Diaz [facility] 14:53:40 Venereal disease screenin g Completed 201404/26/2020 Screenin g examinat ion for venereal disease; Practice ID: 0001 [facility] 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 14:53:34 Clinical finding Completed 201504/26/2020 Obesity, unspecif ied;Prac sarath ID: 0001 Jorge Diaz [facility] 14:54:15 Severe obesity 6125882875 9104 Completed 201504/26/2020 Morbid (severe) obesity due to excess calories ;Practic e ID: 0001 [facility] 14:54:02 Primary amenorrh ea 043030970 Completed 201704/26/2020 Primary amenorrh ea;Pract ice ID: 0001 [facility] 14:53:54 Metaboli c syndrome X 622291853 Completed 201305/08/2020 Insulin resistan ce;Recor ded Elsewher e: No Locat ion: [facility] S ource: EHR Want Ad Supervisor ashlyn: N Practi ce ID: 0001 Ezio lable Time: 09:45:00 AM [facility] 12:09:39 Infectio n screenin g Completed 201504/26/2020 Encounte r for screenin g for oth infec/pa rastc diseases ;Recorde d Elsewher e: No Locat ion: [facility] S ource: EHR Want Ad Supervisor ashlyn: N Practi ce ID: 0001 Ezio lable Time: 05:30:00 PM Jorge Diaz [facility], [facility] 14:54:11 Diabetes mellitus 16187552 Completed 201905/08/2020 type 2 [facility] 12:09:37 Anxiety 18919800 Completed 201905/08/2020 Zoloft [facility] 12:09:34 Abnormal cervical Papanico laou smear 796231056 Completed 201905/08/20202014 Yadira Mckeon [facility], [facility] 12:09:30 Pregnanc y 13723182 Completed 201905/08/2020 Nehal Armendariz [facility], [facility] 4 18:08:47 Type 2 diabetes mellitus 47658241 Completed Metformi n xr 2000mg qd Sent to MFM for manageme nt- 1/27- NPH 26U AM/88U PM Increase 2 units when 1 consecut wili fasting >90 / Humalog 16U w/ bfast & 8Uw/ lunch & 32U w/ dinner. 6units with snack over 15g carbs. Nhi zamarripa, [facility] 13:40:41 Purpuric rash 154961998 Completed clotimaz ole/beta methazon e-Rxed Nhi white [facility] 13:40:41 Obesity 902383475 Completed 2013 LD ASA per MFM Nhi white [facility] 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 13:40:41 Dilatati on of renal pelvis 220419689 Completed - bilatera l - growth u/s Nih white [facility] 13:40:41 Anxiety 17984331 Completed 2019 Zoloft Nhi white [facility] 13:40:41 Pre-exis ting type 2 diabetes mellitus in pregnanc y 219750140 Completed 2020 DELIVER BY 36- not well controll ed. MFM may rec earlier. Nhi white [facility] 13:40:41 Pre-exis ting type 2 diabetes mellitus in pregnanc y 832166709 Completed 202005/08/2020 Yadira Mckeon [facility], [facility] 12:09:45 Large for gestatio n age fetus 625806548 Completed potentia l 89% 05/11 Nhi Arananolvialexi white [facility] 1 13:40:41 Pregnanc y 19483415 Active 2023 Nehal Armendariz [facility] 4 18:08:47 Type 2 diabetes mellitus 35214180 Active managed by MFM Sched [facility] 05[facility]10 [facility] 06/28 US and office visit Consult 08/03/24 NST & US 08/23/24 1:15PM to start 2xwkly antenata l testing at 32wks confirm if pt schedule MFM or our office? schedule d for US/BPP/N ST weekly onTuesda ys starting 06/02/24 pt decline Thursday NST pt schedule d on s NST/OB Jenni Diaz [facility] 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 5 13:09:37 Group B Streptoc occus carrier 8543334189 103 Active + GBS in urine Jenni Diaz [facility] 5 13:09:37 Pre-ecla mpsia 654887490 Active 2024 Dante Aponte MD [address], [place], [address], [facility] 5 16:02:57 Problem Notes None recorded. Procedures Surgical History Date Name Laterality Status Provider Name and Address Organization Details Recorded Time 03/01/20 24 Date of Last Pap Smear completed Nehal Armendariz [facility] 04/07/2024 18:07:50 09/02/19 23 IUD Removal completed Dante Aponte MD [address], [place], [address], [facility] 09/01/2022 22:15:29 05/19/19 23 Colposcopy completed Dante Aponte MD [address], [place], [address], [facility] 05/19/2022 15:31:57 05/19/19 23 Colposcopy completed Alva Kimble [facility] 03/09/2023 16:31:33 05/19/19 23 Colposcopy completed Sarah Jordan [facility] 05/19/2022 14:35:43 07/28/19 22 IUD Insertion completed Dante Aponte MD [address], [place], [address], [facility] 07/27/2021 12:17:49 05/22/19 21 NST completed Bel Dennison MD [address], [place], [address], [facility] 05/22/2020 14:09:48 05/15/19 21 NST completed Bel Dennison MD [address], [place], [address], [facility] 05/15/2020 13:43:28 04/27/19 21 NST completed Bel Dennison MD [address], [place], [address], [facility] 04/27/2020 12:17:14 04/20/19 15 Tonsillectomy completed Alva Kimble [facility] 11/09/2019 16:35:35 Imaging Results None recorded. Procedure Notes None recorded. Medical Equipment None Reported. Allergies Allergen ID Allergen Name Allergen Category Reaction Reaction Severity Criticality Documentation Date Start Date Code Code System Note Provider Name and Address Organization Details Recorded Time 1407 lisinopri l medicatio n rash Not available Not available 11/09/2019 74197 RxNorm Alva zamarripa [facility] 0 11:13:14 Medications Name [...] Simental e: Yes Loca tion: Saji sandoval [facility] odify By: arun kearns DateTime : 02/13/20 [...] ed Elsewher e: No Locat ion: Saji [facility] odify By: richard kearns DateTime : [...] ed Elsewher e: No Locat ion: Saji [facility] odify By: kashif Steph r DateTime : 10/14/19 19 08:30:00 AM [...] Prescrib florecita Simental e: No Locat ion: Saji sandoval [facility] M odify By: karine calix DateTime : 05/21/19 [...] ne propionat e 50 mcg/actua tion nasal spray,kaleigh pension USE 1 SPRAY(S) IN EACH NOSTRIL [...] Elsewher e: No Locat ion: Saji sandoval [facility] odify By: [email or web address] trick En counter DateTime [...] Prescrib ed Elsewher e: No Locat ion: [facility] odify By: claire kearns DateTime : 06/07/19 [...] Available No t Available FreeStyle Herrera 2 [place] 07/06 completed Not Available Not Available Not [...] Not Available Vitals Date Recorded Body height Body mass index (BMI) Body weight Systolic blood pressure Diastolic blood pressure Provider Name and Address Organization Details Last Updated DateTime 09/08/2024 158.75 cm 43.7 kg/m2 985919.9 5 g 143 mm[Hg] 91 mm[Hg] Nehal [facility] 16:49:27 Date Recorded Body height Body mass index (BMI) Body weight Systolic blood pressure Diastolic blood pressure Provider Name and Address Organization Details Last Updated DateTime 09/08/2024 158.75 cm 43.7 kg/m2 560637.9 5 g 143 mm[Hg] 91 mm[Hg] DIANE Navarro [facility] 16:30:30 Date Recorded Body weight Systolic blood pressure Diastolic blood pressure Provider Name and Address Organization Details Last Updated DateTime 09/15/2024 624445.315 39 g 122 mm[Hg] 77 mm[Hg] Nehal [facility] 09/15/2024 15:47:22 Date Recorded Body height Body mass index (BMI) Body weight Systolic blood pressure Diastolic blood pressure Provider Name and Address Organization Details Last Updated DateTime 09/15/2024 158.75 cm 44.5 kg/m2 717158.3 2 g 122 mm[Hg] 71 mm[Hg] DIANE Navarro [facility] 15:44:16 Date Recorded Body weight Systolic blood pressure Diastolic blood pressure Provider Name and Address Organization Details Last Updated DateTime 09/22/2024 522360.500 13 g 146 mm[Hg] 92 mm[Hg] Nehal Armendariz [facility] 09/22/2024 15:26:24 Date Recorded Body height Body mass index (BMI) Body weight Systolic blood pressure Diastolic blood pressure Provider Name and Address Organization Details Last Updated DateTime 09/22/2024 158.75 cm 44.8 kg/m2 534399.5 g 146 mm[Hg] 92 mm[Hg] DIANE Navarro [facility] 16:58:54 Social History Question Answer Notes LastModified by Organizat ion Details LastModified Time Tobacco Smoking Status Never Smoker Alva zamarripa, [facility] 11/09/2019 16:27:58 Are You Blind Or Do You Have Difficulty Seeing? No [email or web address] Information n ot available 03/09/2023 What Is Your Level Of Caffeine Consumption? Occasional [email or web address] Information not available 03/09/2023 In The 14 Days Before Symptom Onset, Have You Had Close Contact With A Laboratory-confirm ed COVID-19 While That Case Was Ill? No [email or web address] Information n ot available 03/09/2023 In The 14 Days Before Symptom Onset, Have You Had Close Contact With A Person Who Is Under Investigation For COVID-19 While That Person Was Ill? No [email or web address] Information not available 03/09/2023 Have You Been To An Area Known To Be High Risk For COVID-19? No [email or web address] Information not available 03/09/2023 Are You Deaf Or Do You Have Serious Difficulty Hearing? No [email or web address] Information not available 03/09/2023 What Type Of Diet Are You Following? DIABETIC Information n ot available 03/09/2023 Which Illicit Or Recreational Drugs Have You Used? [place] Information not available 11/09/2019 What Was The Date Of Your Most Recent Tobacco Screening? 03/09/2023 [email or web address] Information not available 03/09/2023 Do You Use Your Seat Belt Or Car Seat Routinely? Yes [email or web address] Information not available 03/09/2023 Do You Have Smoke And Carbon Monoxide Detectors In Your Home? Yes [email or web address] Information not available 03/09/2023 How Much Tobacco Do You Smoke? No [email or web address] Information not available 11/09/2019 Do You Use Sunscreen Routinely? Yes [email or web address] Information not available 03/09/2023 Do You Have Difficulty Walking Or Climbing Stairs? No Information not available 03/09/2023 Sex: Unknown Functional Status Question Answer Note LastModified by Organizat ion Details LastModified Time What is your level of alcohol consumption? Occasional [email or web address] Information not available 11/09/2019 Do you or have you ever used smokeless tobacco? Never used smokeless tobacco [email or web address] Information not available 11/09/2019 Are you able to walk? YESWOREST [email or web address] Information not available 03/09/2023 Are you able to care for yourself? Yes [email or web address] Information not available 03/09/2023 Do you have difficulty dressing or bathing? No Information not available 03/09/2023 Do you or have you ever used e-cigarettes or vape? Never used electronic cigarettes [email or web address] Information not available 11/09/2019 What is your exercise level? Occasional [email or web address] Information not available 11/09/2019 Mental Status Question Answer Note LastModified by Organization D etails LastModified Time Do you feel stressed (tense, restless, nervous, or anxious, or unable to sleep at night)? [id number] [email or web address] Information not available 03/09/2023 Family History Relationship Description Onset Age of this Age Resolved Age Notes LastModified by Organization Details LastModified Time Maternal Grandmother Diabetes mellitus [email or web address] Not available 11/08 16:27:24 Maternal Aunt Diabetes mellitus [email or web address] Not available 11/08 16:27:24 Maternal Aunt Malignant tumor of cervix [email or web address] Not available 11/08 16:27:36 Maternal Aunt Malignant tumor of breast [email or web address] Not available 11/08 16:27:47 Medical History Condition [...] SNOMED-CT Code Diagnosis ICD10 Code Diagnosis Note [id number] Franci Wyman CNM [place] [address],[facility] [place] [address] 11/09/2019 10:35:05 11/09/2019 12:09:35 [id number] Dante Aponte MD [place] [address],[facility] [place] [address] 11/09/2019 10:36:18 11/09/2019 13:42:01 [id number] Dante Aponte MD [place] [address],[place] [address] 12/09/2019 10:39:11 12/09/2019 12:29:37 screening 455094427 Z36.82 Z36.0 Z36.89 Pruritic rash 20040687 L 28.2 Routine an tenatal care 307320173 Z34.01 44463 MD Roxana Posada [address],[place] [address] 12/09/2019 10:39:39 12/09/2019 11:48:03 screening 983026404 Z36.82 Z36.0 Z36.89 89345 MD Roxana Posada [address],[place] [address] 01/06/2020 11:18:19 01/06/2020 12:48:28 Gestational diabetes mellitus class A2 26957768 O24.414 [id number] Dante Aponte MD [place] [address],[place] [address] 01/06/2020 11:18:55 01/06/2020 14:59:05 [id number] Dante Aponte MD [place] [address],[place] [address] 02/03/2020 09:30:52 02/03/2020 12:31:48 screening for malformation 978144017 Z36.3 54197 [facility] [address],[place] [address] 02/03/2020 09:31:14 02/03/2020 13:25:47 Routine care 936087396 Z34.92 69940 MD Roxana Posada [address],[place] [address] 02/24/2020 14:40:59 02/24/2020 16:52:22 Headache 50256751 R51.9 Anxiety 60035962 F41.9 92045 MD Roxana Posada [address],[place] [address] 03/02/2020 09:24:54 03/02/2020 10:41:38 screening 719938649 Z36.2 O35.8XX0 O43.92 O24.112 Z3A.24 38863 Franci Wyman [facility] [address],[place] [address] 03/02/2020 09:25:14 03/02/2020 10:41:22 Routine care 749173797 Z34.92 32509 Franci Wyman [facility] [address],[place] [address] 03/30/2020 12:05:24 03/30/2020 14:10:47 Routine care 076363170 Z34.92 [id number] Bel Dennison MD [place] [address],[place] [address] 04/11/2020 13:45:33 04/11/2020 14:43:39 Pre-existing type 2 diabetes mellitus in 271622947 O24.119 99365 Bel Dennison MD [place] [address],[place] [address] 04/27/2020 11:06:25 04/27/2020 12:38:33 Pre-existing type 2 diabetes mellitus in 969585163 O24.119 22437 Bel Dennison MD [place] [address],[place] [address] 04/27/2020 11:06:44 04/27/2020 12:43:55 Gestational diabetes mellitus class A2 46307192 O24.414 85269 Dante Aponte MD [place] [address],[place] [address] 05/01/2020 11:25:52 05/01/2020 12:33:58 Gestational diabetes mellitus class A2 34547035 O24.414 [id number] Dante Aponte MD [place] [address],[place] [address] 05/01/2020 11:27:17 05/01/2020 12:39:16 Routine care 778858779 Z34.01 64445 Dante Aponte MD [place] [address],[place] [address] 05/08/2020 11:29:34 05/08/2020 12:15:11 Gestational diabetes mellitus class A2 13394658 O24.414 23841 Grazyna Rubin [facility] [address],[place] [address] 05/08/2020 11:30:35 05/08/2020 12:42:05 Routine care 612486974 Z34.93 [id number] Bel Dennison MD [place] [address],[place] [address] 05/15/2020 11:29:25 05/15/2020 12:47:10 Gestational diabetes mellitus class A2 18885629 O24.414 [id number] Bel Dennison MD [place] [address],[place] [address] 05/15/2020 11:30:12 05/15/2020 14:05:54 Pre-existing type 2 diabetes mellitus in 912418436 O24.119 56412 Bel Dennison MD [place] [address],[place] [address] 05/22/2020 11:36:06 05/24/2020 16:00:09 Gestational diabetes mellitus class A2 59626998 O24.414 [id number] Bel Dennison MD [place] [address],[place] [address] 05/22/2020 11:37:01 05/23/2020 11:05:33 Pre-existing type 2 diabetes mellitus in 465456407 O24.119 Reduced fe sven movement 989167154 O36.8199 53928 Dante Aponte MD [place] [address],[place] [address] 05/22/2020 12:11:38 05/24/2020 11:07:14 condition affecting obstetrical care of mother 491989219 O36.8330 80264 Dante Aponte MD [place] [address],[place] [address] 07/06/2020 15:53:54 07/06/2020 16:45:54 Anxiety 39228691 F41.9 care 75814797 8 Z39.0 Patient is a 29-year-ol d [...] sertraline . She will in 1 month. [id number] Dante Aponte MD [place] [address],[place] [address] 07/27/2021 11:51:04 07/27/2021 12:18:19 Contraception care management 657935686 Z30.9 IUD was inserted without complicati ons. Insertion of intrauterine contraceptive device 67989672 Z30.430 [id number] Dante Aponte MD [place] [address],[place] [address] 04/25/2022 10:39:12 04/25/2022 13:43:15 Gynecologic examination 34058530 Z01.419 Annual gynecologi amy exam performed. Patient [...] Cholestero l - done Pap - today [id number] Dante Aponte MD [place] [address],[place] [address] 05/19/2022 13:54:03 05/19/2022 15:37:59 Dysplasia of cervix 86069973 N87.9 colposcopi c examinatio n was performed and biopsies were performed. Three biopsies and an ECC were performed and she tolerated it well. [id number] Dante Aponte MD [place] [address],[place] [address] 09/01/2022 16:33:00 09/02/2022 14:30:51 Vulval irritation 795269310 N90.89 Contracept ion care management 889951650 Z30.9 IUD was inserted without complicati ons. Urinary tr act infectious disease 56044475 N39.0 patient reported urinary symptoms. [id number] BLAKE Vaughn [place] [address],[place] [address] 03/09/2023 16:32:50 03/10/2023 09:09:00 Contraception care management 229449708 Z30.9 Discussed all BC methods in-depth, r/b/a [...] counseling and review of plan of care. [id number] JOELLE MCLEAN MD [place] [address],[place] [address] 05/13/2023 12:18:10 05/14/2023 08:54:53 Vaginitis 87073866 N76.0 - swab sent, follow up on results as available [facility] management 434370130 Z30.9 - unhappy with slynd, would like Paraguard IUD placement- patient to call with next period for placement Recurrent urinary tract infection 709238422 N39.0 - patient to call for urine culture if symptoms recur, currently resolved- consider postcoital or daily ppx if recurrent [id number] Dante Aponte MD [place] [address],[place] [address] 02/22/2024 10:09:21 02/22/2024 12:07:46 Ectopic 69319932 O00.90 this patient is a 33-year-ol d [...] the week. this problem has marked complexity [id number] Dante Aponte MD [place] [address],[place] [address] 02/22/2024 10:52:45 02/22/2024 11:37:21 Low back pain in 2103716589 106 O26.899 O36.80X9 Z3A.01 [id number] Dante Aponte MD [place] [address],[place] [address] 04/07/2024 16:30:33 04/07/2024 17:49:14 screening 572051305 Z36.82 Z3A.12 [id number] Dante Aponte MD [place] [address],[place] [address] 04/07/2024 16:31:11 04/08/2024 09:39:28 Gestation period, 12 weeks 59340879 Z3A.12 [id number] Dante Aponte MD [place] [address],[place] [address] 05/05/2024 16:13:19 05/05/2024 17:37:08 [id number] MD Roxana Posada [address],[place] [address] 05/05/2024 17:30:23 05/05/2024 17:49:36 [id number] MD Roxana Posada [address],[place] [address] 06/02/2024 16:32:48 06/02/2024 17:33:53 Routine care 043462223 Z34.01 [id number] Dante Aponte MD [place] [address],[place] [address] 06/30/2024 13:38:23 06/30/2024 14:25:45 Routine care 494927159 Z34.01 [id number] JOELLE MCLEAN MD [place] [address],[place] [address] 07/18/2024 16:43:22 07/18/2024 17:20:55 Vaginitis 60101545 N76.0 - tried OTC monistat without relief- swab sent, follow up on results as available [id number] Dante Aponte MD [place] [address],[place] [address] 07/28/2024 13:50:41 07/28/2024 15:00:44 Routine care 108687361 Z34.01 [id number] Dante Aponte MD [place] [address],[place] [address] 08/08/2024 14:01:40 08/08/2024 14:36:37 care status 512141951 Z34.83 [id number] MD Roxana Posada [address],[place] [address] 08/25/2024 14:41:30 08/25/2024 15:26:20 care status 292946850 Z34.83 [id number] MD Roxana Posada [address],[place] [address] 08/25/2024 16:28:05 08/25/2024 16:32:44 Past history of gestational diabetes mellitus 978553116 Z86.32 [id number] MD Roxana Posada [address],[place] [address] 09/01/2024 13:22:25 09/01/2024 16:18:24 Gestational diabetes mellitus class A2 88961100 O24.419 [id number] MD Roxana Posada [address],[place] [address] 09/01/2024 13:22:47 09/05/2024 00:58:57 care status 133744969 Z34.83 [id number] MD Roxana Posada [address],[place] [address] 09/08/2024 15:33:55 09/08/2024 16:50:33 Gestational diabetes mellitus 82520539 O24.410 [id number] MD Roxana Posada [address],[place] [address] 09/08/2024 15:34:08 09/08/2024 16:50:00 Oligohydramnios 84457425 O41.03X0 Z3A.34 [id number] MD Roxana Posada [address],[place] [address] 09/08/2024 15:34:18 09/09/2024 01:16:04 [id number] MD Roxana Posada [address],[place] [address] 09/15/2024 15:02:18 09/15/2024 16:45:10 Gestational diabetes mellitus 41535298 O24.410 [id number] MD Roxana Posada [address],[place] [address] 09/15/2024 15:02:40 09/15/2024 16:44:53 care status 018513026 Z34.83 [id number] Dante Aponte MD [place] [address],[facility] [place] [address] 09/22/2024 14:30:30 09/22/2024 17:02:37 Gestational diabetes mellitus 57920883 O24.410 [id number] Dante Aponte MD [place] [address],[facility] [place] [address] 09/22/2024 14:30:39 09/22/2024 16:26:54 care status 318521621 Z34.83 Health Concerns Section Related Observation LastModified by Organization Detai ls LastModified Time None Recorded Concern Status LastModified by Organization Details LastModified Time None Recorded Advance Directives Directive None Recorded Payers Encounter Date Sequence Insurance Name Policy Number Policy Goddard Covered Member ID Goddard Member ID Guarantor Name 09/08/2024 1 [employer] - ALLIED BENEFITS - OPEN ACCESS Yasmeen Ny [id number] Yasmeen Ny 09/08/2024 2 [facility] - DOS ON OR AFTER 20 (MEDICAID REPLACEMENT - HMO) Yasmeen Ny [id number] Yasmeen Ny 09/15/2024 1 [employer] - ALLIED BENEFITS - OPEN ACCESS Yasmeen Ny [id number] Yasmeen Ny 09/15/2024 2 [facility] - DOS ON OR AFTER 20 (MEDICAID REPLACEMENT - HMO) Yasmeen Ny [id number] Yasmeen Ny 09/15/2024 1 [employer] - ALLIED BENEFITS - OPEN ACCESS Yasmeen Ny [id number] Yasmeen Ny 09/15/2024 2 [facility] - DOS ON OR AFTER 20 (MEDICAID REPLACEMENT - HMO) Yasmeen Ny [id number] Yasmeen Ny 09/22/2024 1 [employer] - ALLIED BENEFITS - OPEN ACCESS Yasmeen Ny [id number] Yasmeen Ny 09/22/2024 2 [facility] - DOS ON OR AFTER 20 (MEDICAID REPLACEMENT - HMO) Yasmeen Ny [id number] Yasmeen Ny 09/22/2024 1 [employer] - ALLIED BENEFITS - OPEN ACCESS Yasmeen Ny [id number] Yasmeen Ny 09/22/2024 2 [facility] - DOS ON OR AFTER 20 (MEDICAID REPLACEMENT - HMO) Yasmeen Ny [id number] Yasmeen Ny OBGyn Episode Ob Episode Information Episode Created Date Number of Fetuses Patient Bloodtype Patient rh Status Prepregnancy Weight lbs Domestic Partner Domestic Partner Phone Father Name Weld Fitter Status 12/09/19 20 1 A Positive 226 CLOSED Fetus Data First Name Last Name Admitted to NICU Weight (g) Sex Living Outcome Pediatric Complications Fetus ID Race Codes Race Delivery Type 3203.49 35 M true Full Term 3938 Vaginal Delivery Problems Problem Notes [facility] - 03/28 - Recommendations : 162mg ASA daily, echo, A1C q trimester, baseline 24 hr TP, 2x/wk NST and weekly BPP @ 32 wks. ECHO - Scheduled 04/19- Normal record in chart [facility] 05/16 VBA PROGRAMMER/DE 10:30am - *WILL REQUIRE INSULIN DRIP DURING LABOR/DECREASE BY 50% IN *[facility] - next appt 05/23 VBA PROGRAMMER/DE/US Problem Name Start Date End Date Resolution Snomed Code Not e Purpuric rash 221458915 clotim azole/betametha zone-Rxed Type 2 diabetes mellitus 78346585 Metformin xr 20 00mg qdSent to [facility] for management- 05/16-NPH 26U AM/88U PM Increase 2 units when 1 consecutive fasting >90 / Humalog 16U w/ bfast & 8Uw/ lunch & 32U w/ dinner. 6units with snack over 15g carbs. Obesity 08/19/2013 223863750 LD ASA pe r MFM Marginal insertion of umbilical cord 02/03/2020 43079769 growth u/s Dilatation of renal pelvis - bilater al - growth u/s Anxiety 11/09/2019 80864395 Zoloft Pre-existing type 2 diabetes mellitus in 04/27/2020 437126156 DELIVER BY 37- not well controlled. MFM may rec earlier. Large for gestation age fetus 432253098 potential 89% Rajeev Calculation Initial Rajeev Date [...] Gestation 0 [email or web address] 12/09/2019 06/21/19 21 0 Pre-issac Flowsheet Flowsheet Date 11/09/2019 Alonso Score Blood [...] Weight in lbs Pre/Post Dialysis Refused Weight 230.281916648935 BP Diastolic BP Location Tested BP Systolic [...] Weight in lbs Pre/Post Dialysis Refused Weight 237.531406878330 BP Diastolic BP Location Tested BP Systolic [...] Weight in lbs Pre/Post Dialysis Refused Weight 242.523325005248 BP Diastolic BP Location Tested BP Systolic [...] Weight in lbs Pre/Post Dialysis Refused Weight 249.770989309480 BP Diastolic BP Location Tested BP Systolic [...] Weight in lbs Pre/Post Dialysis Refused Weight 249.032571672943 BP Diastolic BP Location Tested BP Systolic [...] Weight in lbs Pre/Post Dialysis Refused Weight 256.868641242930 BP Diastolic BP Location Tested BP Systolic [...] Weight in lbs Pre/Post Dialysis Refused Weight 259.215709912374 BP Diastolic BP Location Tested BP Systolic [...] Weight in lbs Pre/Post Dialysis Refused Weight 263.942613359878 BP Diastolic BP Location Tested BP Systolic [...] Weight in lbs Pre/Post Dialysis Refused Weight 268.976161429276 BP Diastolic BP Location Tested BP Systolic [...] Weight in lbs Pre/Post Dialysis Refused Weight 266.120120972296 BP Diastolic BP Location Tested BP Systolic [...] Weight in lbs Pre/Post Dialysis Refused Weight 269.700695746762 BP Diastolic BP Location Tested BP Systolic [...] Weight in lbs Pre/Post Dialysis Refused Weight 272.670087564999 BP Diastolic BP Location Tested BP Systolic [...] baseline, spontaneous. BPP in office 6/8. To Ray meza D for extended monitoring. I discussed her case with Dr Baez [facility]. SHe recommends to deliver at 37 weeks if extended monitoring ok. If any further significant decels or BPP less than 6/8, then immediate delivery. Pt sent to [facility]. GBS done today. Cervix closed [...] Estim ated Date of Delivery false Thalassemia (Palestinian, Tamazight, Mediterranean, Or Background): MCV < 80 false Neural Tube Defect (Meningomyelocele, Spina Bifi da, Or Anencephaly) false Congenital Heart Defect false Down Syndrome false Tyrell-Sachs (eg, Evangelical, Cajun, Ukrainian-Nome) f alse Kodak Disease false Sickle Cell Disease Or Trait () false Hemophilia Or Other Blood Disorders false Muscular Dystrophy false Cystic Fibrosis false [place]'s Chorea false Intellectual Disability/Autism false If Yes, [...] Domestic Partner Domestic Partner Phone Father Name Weld Fitter Status 04/07/20 24 1 A Positive OPEN Fetus Data First Name Last Name Admitted to NICU Weight (g) Sex Living Outcome Pediatric Complications Fetus ID Race Codes Race Delivery Type [id number] Problems Problem Notes Problem Name Start Date End Date Resolution Snomed Code Not e Pre-eclampsia 09/22/2024 057601398 Type 2 diabetes mellitus 85535153 managed by [facility] devin [facility] 05[facility] 06/28 US and office visitConsult 08/03/24NST & US 08/23/24 1:15PM to start 2xwkly testing at 32wks confirm if pt schedule MFM or our office?scheduled for US/BPP/NST weekly starting 06/02/24 pt decline Thursday NST pt scheduled on NST/OB Group B Streptococcus carrier [id number] + GBS in urine Rajeev Calculation Initial [...] Weight in lbs Pre/Post Dialysis Refused Weight 209.684131383401 BP Diastolic BP Location Tested BP Systolic [...] Type Weight in lbs Pre/Post Dialysis Refused 217.903225832982 BP Diastolic BP Location Tested BP Systolic [...] Type Weight in lbs Pre/Post Dialysis Refused 222.82076721819 BP Diastolic BP Location Tested BP Systolic [...] Type Weight in lbs Pre/Post Dialysis Refused 229.752153750373 BP Diastolic BP Location Tested BP Systolic [...] Weight in lbs Pre/Post Dialysis Refused Weight 231.041402814188 BP Diastolic BP Location Tested BP Systolic BP Type 75 L arm 116 sitting Fetus Heart Rate Present A 150 Fetus Movement A Yes Comments problem visit, vaginitis. Se e note. Flowsheet Date 07/28/2024 Alonso Score Blood Edema Fundus Height Fundus Units Glucose Ketones Leukocytes Nitrite Labor Signs Protein Cervic Dilation Cervic Effacement Cervic Station Type Weight in lbs Pre/Post Dialysis Refused Weight 231.448661456953 BP Diastolic BP Location Tested BP Systolic [...] Weight in lbs Pre/Post Dialysis Refused Weight 233.849464739530 BP Diastolic BP Location Tested BP Systolic [...] Weight in lbs Pre/Post Dialysis Refused Weight 242.1841342800 BP Diastolic BP Location Tested BP Systolic [...] Weight in lbs Pre/Post Dialysis Refused Weight 242.9697572958 BP Diastolic BP Location Tested BP Systolic BP Type 63 L arm 144 sitting Fetus Heart Rate Present Fetus Movement Comments Flowsheet Date 09/01/2024 Alonso Score Blood Edema Fundus Height Fundus Units Glucose Ketones Leukocytes Nitrite Labor Signs Protein Cervic Dilation Cervic Effacement Cervic Station Type Weight in lbs Pre/Post Dialysis Refused Weight 244.105666169256 BP Diastolic BP Location Tested BP Systolic [...] Weight in lbs Pre/Post Dialysis Refused Weight 244.379238176474 BP Diastolic BP Location Tested BP Systolic BP Type 87 L arm 137 sitting Fetus Heart Rate Present Fetus Movement Comments Flowsheet Date 09/08/2024 Alonso Score Blood Edema Fundus Height Fundus Units Glucose Ketones Leukocytes Nitrite Labor Signs Protein Cervic Dilation Cervic Effacement Cervic Station Type Weight in lbs Pre/Post Dialysis Refused Weight 243.559818100498 BP Diastolic BP Location Tested BP Systolic [...] Weight in lbs Pre/Post Dialysis Refused Weight 243.051994595488 BP Diastolic BP Location Tested BP Systolic [...] Weight in lbs Pre/Post Dialysis Refused Weight 247.685463461865 BP Diastolic BP Location Tested BP Systolic BP Type 71 L arm 122 sitting Fetus Heart Rate Present Fetus Movement Comments Flowsheet Date 09/15/2024 Alonso Score Blood Edema Fundus Height Fundus Units Glucose Ketones Leukocytes Nitrite Labor Signs Protein Cervic Dilation Cervic Effacement Cervic Station Type Weight in lbs Pre/Post Dialysis Refused 247.039830423120 BP Diastolic BP Location Tested BP Systolic [...] Weight in lbs Pre/Post Dialysis Refused Weight 249.597348442162 BP Diastolic BP Location Tested BP Systolic BP Type 92 L arm 146 sitting Fetus Heart Rate Present Fetus Movement Comments Flowsheet Date 09/22/2024 Alonso Score Blood Edema Fundus Height Fundus Units Glucose Ketones Leukocytes Nitrite Labor Signs Protein Cervic Dilation Cervic Effacement Cervic Station Type Weight in lbs Pre/Post Dialysis Refused 249.695708188263 BP Diastolic BP Location Tested BP Systolic BP Type 92 L arm 146 sitting Fetus Heart Rate Present A 145 Fetus Movement A Yes Comments elevated blood pressure, lik иван preeclamptic, to deliver at 37 weeks, [facility] managing blood sugars. To induce and [...]
--- OUTSIDE RECORDS SUMMARY | 2024-09-23 10:08 | XMS_ITS | Continuity of Care Document ---
Author Organization [facility] Address [address] [place] [address] Phone Care Team Providers Care Center Medical Specialist Name Role Phone Serg Caban MD Unavailable Ruchi vailable Medications Medication Instructions Dosage Effective Dates (start - stop) Status Comments triamcinolone acetonide 0.1 % Topical Cream apply by TOPICAL route 2 times every day a thin film to the affected skin areas - Active quantity in grams Procedures Procedure Date OFFICE/OUTPATIENT VISIT, [facility] OFFICE/OUTPATIENT VISIT, [facility] Advance Directives Directive Yes / No Effective Date File Name No Information Encounters Encounter Description Practice Location Reason(s) For Visit Diagnoses Date Provider Providers Copied on Encounter [facility] , [address], [place], [place], [address], tel:[phone] [facility] [place] No Information Marlyn Ulrich. [address], [place], [place], [address], . tel:[phone] OFFICE/OUTPATI ENT VISIT, [facility] , [address], [place], [place], [address], tel:[phone] [facility] [place] exam (chief complaint) Intestinal infection due to other organism, not elsewhere classified Marlyn Ulrich. [address], [place], [place], [address], . tel:[phone] [facility] , [address], [place], [place], [address], tel:[phone] [facility] No Information Marlyn Ulrich. [address], [place], [place], [address], [place]. tel:[phone] OFFICE/OUTPATI ENT VISIT, [facility] , [address], [place], [place], [address], tel:[phone] [facility] [place] back pain (chief complaint) Backache Dominiquelorikelsey Ulrich. [address], [place], [place], [address], [place]. tel:[phone] Family History Family Member Type Diagnosis Age At Onset No Information Payers Payer name Insurance type Covered republican ID [facility](s) [facility] [id number] Social History Type Description Quantity Date Captured [...]
--- OUTSIDE RECORDS SUMMARY | 2024-09-23 10:08 | XMS_ITS | Encounter Summary ---
Author Organization [facility] Health Address [address] [place] [address] Care Team Providers Care Snailer Name Role Phone Chuck Nelson PRINT CONTROLLER-RETAIL MERCHANDISER TECHNICIAN Primary Care Pro vider Reason for Visit * Reason Comments Refill Request Encounter Details Date Type Department Care Team (Late st Contact Info) Description 09/06/2024 Refill [facility] MATERNAL/ EVALUATION UNIT [address] [place] [address] Luana Plummer MD [address] [facility] [address] [place] [address] Refill Request Social History Tobacco [...] and heating? Not hard at all 08/23/2024 [facility] [place] of Occupat ional Health - Occupational Stress [...] things needed for daily living? No 08/23/2024 [place] Depression Scale Answer Date Recorded [place] Depression Scale Total 1 03/01/2024 The thought [...] any time in the past 12 m [facility], were you homeless or [...] Description 09/26/2024 9:30 AM CDT Appointment [facility] MATERNAL/ EVALUATION UNIT [facility] [address] [place] [address] 09/26/2024 10:30 AM CDT Appointment [facility] MATERNAL/ EVALUATION UNIT [facility] [address] [place] [address] 09/26/2024 11:15 AM CDT Appointment [facility] MATERNAL/ EVALUATION UNIT [facility] [address] [place] [address] 09/26/2024 11:30 AM CDT Appointment [facility] MATERNAL/ EVALUATION UNIT [address] [place] [address] 09/27/2024 1:00 PM CDT Appointment [facility] MATERNAL/ EVALUATION UNIT [address] [place] [address] 09/27/2024 2:15 PM CDT Appointment [facility] MATERNAL/ EVALUATION UNIT [address] [place] [address] 09/29/2024 1:00 PM CDT Appointment [facility] MATERNAL/ EVALUATION UNIT [address] [place] [address] 10/03/2024 9:30 AM CDT Appointment [facility] MATERNAL/ EVALUATION UNIT [address] [place] [address] 10/03/2024 10:30 AM CDT Appointment [facility] MATERNAL/ EVALUATION UNIT [address] [place] [address] 10/06/2024 1:00 PM CDT Appointment [facility] MATERNAL/ EVALUATION UNIT [address] [place] [address] documented as of this encounter Visit Diagnoses Diagnosis Pre-existing type 2 diabetes mellitus during , antepartum (HCC) documented in this encounter Care Teams Snailer Relationship Specialty Start Date End Date Chuck Nelson APRN-EMILY [address] [place] [id number] PCP - General Nurse Practitioner 08/25/22 documented as of this encounter
--- OUTSIDE RECORDS SUMMARY | 2024-09-23 10:08 | XMS_ITS | Data Portability ---
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 Plan of Treatment Reminders Order Date Submit Date Provider Last Modified By Organization Details Last Modified Time Details Appointments None recorded. Lab test, urine 2023 024 singh In-Office Order, Internal Use Only DO Not Attach Compendium DO Not Attach Compendium, Do Not Delete/merge, [id number] 13:09:24 lipid panel, serum 2023 024 singh [facility], [address] [place] [address], [address], [place], [address], 4 11:40:06 CBC w/ auto diff 2023 024 [facility], [address] [place] [address], [address], [place], [address], 4 11:40:06 amylase + lipase, serum 2023 024 [facility], [address] [place] [address], [address], [place], [address], 4 11:40:06 Referral None recorded. Procedures None recorded. Surgeries None recorded. Imaging None recorded. Medication Orders aspirin 81 mg tablet,orly rodriguezd release 2023 [facility], [facility] [place], [address], 13:20:45 atorvastati n 20 mg tablet 2023 [facility], [address] [place] [address], [address], 13:20:49 spironolact one 100 mg tablet 2023 [facility], [address] [place] [address], [address], 4 13:20:46 nystatin 100,000 unit/gram topical powder 2023 [facility], [address] [place] [address], [address], 13:20:47 phentermine 37.5 mg tablet 2023 [facility], [facility] [place], [address], 13:20:56 escitalopra m 20 mg tablet 2023 [facility], [facility] [place], [address], 13:20:49 metformin 1,000 mg tablet 2023 024 [facility], [address] [place] [address], [address], 4 13:20:44 Mounjaro 10 mg/0.5 mL subcutaneou s pen injector [address] [facility] [address], [address] [place] [address], [address], 13:20:48 fluticasone propionate 50 mcg/actuati on nasal spray,suspe nsion 2023 024 [facility], [address] [place], [address], 4 13:20:46 montelukast 10 mg tablet 2023 024 [facility], [address] [place] [address], [address], 13:20:49 phentermine 37.5 mg tablet 2023 [facility], [address] [place] [address], [id number], 18:24:29 phentermine 37.5 mg tablet 2023 [facility], [address] [place] [address], [address], 15:30:16 triamcinolo ne acetonide 0.1 % topical cream 2023 [facility], [address] [place] [address], [address], 15:30:14 Patient TargetsNo targets recorded. Patient Instructions Encounter Date Encounter Id Patient Instructions Last Modified By Organization Details Last Modified Time 09/03/2023 [id number] A healthy lifestyle: care instructions yarauz Not available 09/03/2023 13:09:22 body mass index: care instructions yarauz Not available 09/03/2023 13:09:22 learning about healthy weight yarauz Not available 09/03/2023 13:09:[address] op phentermine for now till after surgery continue present meds yarauz Not available 09/03/2023 17:56:58 11/02/2023 [id number] body mass index: care instructions yarauz Not [...] Rx yarauz Not available 11/02/2023 15:13:42 12/14/2023 [id number] When You Want to Lose Weight: Care [...] Rx yarauz Not available 12/14/2023 12:51:59 02/05/2024 [id number] learning about endovenous ablation for varicose veins [...] DO Not Attach Compendium, Do Not Delete/merge, [id number] 08/20/2023 11:59:00 08/20/19 24 08/20/2023 HbA1c (hemo globi n A1c), blood HbA1c 6.6 Not Available In-Office Order Internal Use Only DO Not Attach Compendium DO Not Attach Compendium, Do Not Delete/merge, [id number] 08/20/2023 11:58:59 09/01/19 24 09/02/2023 LIPID PANEL cholesterol, total 175 mg/dL 100-19 9 Not Available [facility] ([facility]) [address] [facility], [place], [address], 09/02/2023 11:15:38 09/01/19 24 09/02/2023 LIPID PANEL triglyceride s 199 mg/dL 0-149 above high normal Not Available [facility] ([facility]) [address] [facility] [place], [address], 09/02/2023 11:15:38 09/01/19 24 09/02/2023 LIPID PANEL HDL cholesterol 32 mg/dL >39 below low normal Not Available [facility] ([facility]) [address] [facility], [place], [address], 09/02/2023 11:15:38 09/01/19 24 09/02/2023 LIPID PANEL VLDL cholesterol amy 35 mg/dL 5-40 Not Available [facility] ([facility]) [address] [place], [address], 09/02/2023 11:15:38 09/01/19 24 09/02/2023 LIPID PANEL LDL chol calc ([facility]) 108 mg/dL 0-99 above high normal Not Available [facility] ([facility]) [address] [place], [address], 09/02/2023 11:15:38 09/01/19 24 09/02/2023 CBC WITH DIFFE RENTI AL/PL ATELE T WBC 10.4 x10e3 /uL 3.4-10 .8 Not Available [facility] ([facility]) [address] [place], [address], 09/02/2023 11:15:39 09/01/19 24 09/02/2023 CBC WITH DIFFE RENTI AL/PL ATELE T RBC 4.78 x10e6 /uL 3.77-5 .28 Not Available [facility] ([facility]) [address] [place], [address], 09/02/2023 11:15:39 09/01/19 24 09/02/2023 CBC WITH DIFFE RENTI AL/PL ATELE T hemoglobin 13.6 g/dL 11.1-1 5.9 Not Available [facility] ([facility]) [address] [facility], [place], [address], 09/02/2023 11:15:39 09/01/19 24 09/02/2023 CBC WITH DIFFE RENTI AL/PL ATELE T hematocrit 40.7 % 34.0-4 6.6 Not Available [facility] ([facility]) [address] [facility], [place], [address], 09/02/2023 11:15:39 09/01/19 24 09/02/2023 CBC WITH DIFFE RENTI AL/PL ATELE T MCV 85 fL 79-97 Not Available [facility] ([facility]) [address] [facility], [place], [address], 09/02/2023 11:15:39 09/01/19 24 09/02/2023 CBC WITH DIFFE RENTI AL/PL ATELE T MCH 28.5 pg 26.6-3 3.0 Not Available [facility] ([facility]) [address] [facility], [place], [address], 09/02/2023 11:15:39 09/01/19 24 09/02/2023 CBC WITH DIFFE RENTI AL/PL ATELE T MCHC 33.4 g/dL 31.5-3 5.7 Not Available [facility] ([facility]) [address] [place], [address], 09/02/2023 11:15:39 09/01/19 24 09/02/2023 CBC WITH DIFFE RENTI AL/PL ATELE T RDW 12.6 % 11.7-1 5.4 Not Available [facility] ([facility]) [address] [place], [address], 09/02/2023 11:15:39 09/01/19 24 09/02/2023 CBC WITH DIFFE RENTI AL/PL ATELE T platelets 404 x10e3 /uL 150-45 0 Not Available [facility] ([facility]) [address] [facility], [place], [address], 09/02/2023 11:15:39 09/01/19 24 09/02/2023 CBC WITH DIFFE RENTI AL/PL ATELE T neutrophils 60 % notest ab. Not Available [facility] ([facility]) [address] [facility], [place], [address], 09/02/2023 11:15:39 09/01/19 24 09/02/2023 CBC WITH DIFFE RENTI AL/PL ATELE T lymphs 32 % notest ab. Not Available [facility] ([facility]) [address] [facility], [place], [address], 09/02/2023 11:15:39 09/01/19 24 09/02/2023 CBC WITH DIFFE RENTI AL/PL ATELE T monocytes 6 % notest ab. Not Available [facility] ([facility]) [address] [facility], [place], [address], 09/02/2023 11:15:39 09/01/19 24 09/02/2023 CBC WITH DIFFE RENTI AL/PL ATELE T eos 1 % notest ab. Not Available [facility] ([facility]) [address] [facility], [place], [address], 09/02/2023 11:15:39 09/01/19 24 09/02/2023 CBC WITH DIFFE RENTI AL/PL ATELE T basos 0 % notest ab. Not Available [facility] ([facility]) [address] [facility], [place], [address], 09/02/2023 11:15:39 09/01/19 24 09/02/2023 CBC WITH DIFFE RENTI AL/PL ATELE T neutrophils (absolute) 6.2 x10e3 /uL 1.4-7. 0 Not Available [facility] ([facility]) [address] [facility], [place], [address], 09/02/2023 11:15:39 09/01/19 24 09/02/2023 CBC WITH DIFFE RENTI AL/PL ATELE T lymphs (absolute) 3.4 x10e3 /uL 0.7-3. 1 above high normal Not Available [facility] ([facility]) [address] [facility], [place], [address], 09/02/2023 11:15:39 09/01/19 24 09/02/2023 CBC WITH DIFFE RENTI AL/PL ATELE T monocytes(ab solute) 0.6 x10e3 /uL 0.1-0. 9 Not Available [facility] ([facility]) [address] [facility], [place], [address], 09/02/2023 11:15:39 09/01/19 24 09/02/2023 CBC WITH DIFFE RENTI AL/PL ATELE T eos (absolute) 0.1 x10e3 /uL 0.0-0. 4 Not Available [facility] ([facility]) [address] [facility], [place], [address], 09/02/2023 11:15:39 09/01/19 24 09/02/2023 CBC WITH DIFFE RENTI AL/PL ATELE T baso (absolute) 0.0 x10e3 /uL 0.0-0. 2 Not Available [facility] ([facility]) [address] [place], [address], 09/02/2023 11:15:39 09/01/19 24 09/02/2023 CBC WITH DIFFE RENTI AL/PL ATELE T immature granulocytes 1 % notest ab. Not Available [facility] ([facility]) [address] [facility], [place], [address], 09/02/2023 11:15:39 09/01/19 24 09/02/2023 CBC WITH DIFFE RENTI AL/PL ATELE T immature grans (abs) 0.1 x10e3 /uL 0.0-0. 1 Not Available [facility] ([facility]) [address] [facility], [place], [address], 09/02/2023 11:15:39 09/01/19 24 09/02/2023 PRESTON+L IPASE amylase 35 U/L 31-110 Not Available [facility] ([facility]) [address] [facility], [place], [address], 09/02/2023 11:15:40 09/01/19 24 09/02/2023 PRESTON+L IPASE lipase 29 U/L 14-72 Not Available [facility] ([facility]) [address] [place], [address], 09/02/2023 11:15:40 09/03/19 24 09/03/2023 pregn eddie test, urine HCG negati ve Not Available In-Office Order Internal Use Only DO Not Attach Compendium DO Not Attach Compendium, Do Not Delete/merge, [id number] 09/03/2023 12:24:53 Result Notes None recorded. Problems Name Problem SNOMED Code Status Onset Date Resolution Date Notes Provider Name and Address Organization Details Recorded Time Multiple environm ental allergie s Active 2017 BRIGIDO Wolf, [place] - [facility] 2 12:48:51 Hypergly cemia 44063104 Completed 201707/02/2018 Oscar Chavarria null, [place] - [facility] 9 11:03:02 Psoriasi s of scalp 026176929 Completed 201702/04/2019 Suzie Arevalo RN [place] [facility] 9 11:06:18 Uncontro lled type 2 diabetes mellitus 748506572 Active 2017 BRIGIDO [place] [facility] 2 12:48:41 Mixed hyperlip idemia 717007751 Active 2018 Suzie Areval[place] RN [place] [facility] 2 12:49:13 Body mass index 40+ - severely obese 922857684 Completed 201811/01/2021 Removal Reason: better [facility] Attn: Accountin g,[address] [facility], [place], [address], [place] - [facility] 3 13:06:10 Generali zed anxiety disorder 71564199 Active 2019 Chuck Craig [facility] Attn: Accountin g,[address] [facility], [place], [address], [place] [facility] 2 11:21:19 Vitamin D deficien cy 86011379 Active 2021 Chuck Craig [facility] Attn: Accountin g,[address] [facility], [place], [address], [place] [facility] 2 11:21:19 Body mass index 40+ - severely obese 777386788 Completed 202105/06/2022 Chuck Craig [facility] Attn: Accountin g,[address] [facility], [place], [address], [place] - [facility] 3 13:06:10 Hyperpig mentatio n of skin 01011397 Active 2021 Chuck Craig [facility] Attn: Accountin g,[address] [place], [address], [place] [facility] 3 13:05:54 Allergy to fish 605526841 Active 2021 Chuck Craig [facility] Attn: Accountin g,[address] [place], [address], [place] [facility] 3 13:05:54 Body mass index 30+ - obesity 439509292 Active 2021 Chuck Craig [facility] Attn: Accountin g,[address] [place], [address], [place] [facility] 3 13:05:54 Multiple skin tags on neck 167098829 Completed 202205/06/2022 Suzie Areval[place] RN [place] [facility] 3 12:10:07 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 743887408 Active 2022 [facility] Attn: Accountin g,[address], [place], [address], [place] [facility] 3 13:05:54 Obesity 497800517 Active 2022 [facility] Attn: Accountin g,[address], [place], [address], [place] [facility] 3 12:14:20 Excess pannicul us of abdomen 11775384114 01 Active 2022 [facility] Attn: Accountin g,[address], [place], [address], [place] [facility] 3 12:14:13 Erythema dyschrom icum perstans 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 Active 2022 [facility] Attn: Accountin g,[address], [place], [address], [place] [facility] 4 15:11:19 Steatoti c liver disease 575797987 Active 2022 [facility] Attn: Accountin g,[address], [place], [address], [place] [facility] 4 15:11:19 Abnormal liver function 37261384 Completed 202309/03/2023 Removal Reason: resolved for now LAURA Hancock Attn: Accountin g,[address], [place], [address], [place] [facility] 4 13:04:06 Inguinal lymphade nopathy 699442222 Active 2023 Chuck Craig [facility] Attn: Nadege aponte,[address] [facility], [place], [address], [place] [facility] 4 15:11:19 Cholelit hiasis without obstruct ion 78610287 Active 2023 Chuck Craig [facility] Attn: Nadege aponte,[address] [facility], [place], [address], [place] [facility] 4 15:11:19 Cystic acne 14890529 Active 2023 Chuck Craig [facility] Attn: Nadege aponte,[address] [facility], [place], [address], [place] [facility] 4 15:11:19 Right upper quadrant pain 865707546 Active 2023 Chuck Craig [facility] Attn: Nadege aponte,[address] [facility], [place], [address], [place] [facility] 4 12:47:31 Anxiety 39682503 Active 2023 Chuck Craig [facility] Attn: Nadege aponte,[address] [facility], [place], [address], [place] [facility] 4 13:13:00 Impaired glucose toleranc e 0759085 Completed 10/17/2016 MCKAY Hidal[place] [facility] 7 16:17:03 Acute pharyngi tis 259679356 Completed 06/08/2015 Suzie Areval[place] [facility] 6 12:45:07 Morbid obesity 821945501 Completed 02/04/2019 Suzie [place] [facility] 9 11:06:43 Allergic rhinitis 57690927 Completed 03/05/2018 Chuck Craig [facility] Attn: Nadege aponte,[address] 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 Procedures Surgical History Date Name Laterality Status Provider Name and Address Organization Details Recorded Time 05/02/19 23 Skin Tag Removal completed LAURA Hancock Attn: Accounting,[address] [place], [address], [facility] - [facility] 05/02/2022 16:42:03 04/25/19 23 Date of Last Pap Smear completed Suzie Arevalo RN [place] - [facility] 06/06/2022 12:58:35 04/20/19 15 Tonsillectomy completed Suzie Arevalo RN [place] - [place] 04/06/2015 11:08:40 Imaging Results None recorded. Procedure Notes None recorded. Medical Equipment None Reported. Allergies Allergen ID Allergen Name Allergen Category Reaction Reaction Severity Criticality Documentation Date Start Date Code Code System Note Provider Name and Address Organization Details Recorded Time 006765 lisinopri l medicatio n flushing moderate Not available 09/16/20192019 32094 RxNorm Chuck Craig, [facility]- Attn: Nadege aponte,[address], [place], [address], [facility] - [facility] 0 12:40:39 Medications [...] Not Available Not Available FreeStyle Herrera 2 [place] 09/06 completed Not Available Not Available Not Available Trulicity 3 mg/0.5 mL subcutane ous pen injector INJECT 1 SYRINGE SUBCUTAN EOUSLY ONCE A WEEK 04/23 completed Not Available Not Available Not Available Ozempic 1 mg/dose (4 mg/3 mL) subcutane ous pen injector 08/08 completed [facility] prior auth form Not Available Not [...] Last Updated DateTime 160.02 cm 37.2 kg/m2 44367.4 g 97.6 [degF] 85 /min 116 mm[Hg] 75 mm[Hg] Suzie Arevalo RN [facility] 4 12:45:12 Date Recorded Body height Body mass index (BMI) Body weight Heart rate Body temperature Systolic blood pressure Diastolic blood pressure Provider Name and Address Organization Details Last Updated DateTime 4 160.02 cm 36.4 kg/m2 01427.2 4 g 79 /min 98 [degF] 112 mm[Hg] 75 mm[Hg] Suzie Arevalo RN [facility] 4 14:58:01 Date Recorded Body height Body mass index (BMI) Body weight Heart rate Body temperature Systolic blood pressure Diastolic blood pressure Provider Name and Address Organization Details Last Updated DateTime 4 160.02 cm 35.1 kg/m2 17442.2 9 g 74 /min 97.6 [degF] 101 mm[Hg] 69 mm[Hg] Suzie Arevalo RN [facility] 4 12:36:24 Date Recorded Body height Body mass index (BMI) Body weight Provider Name and Address Organization Details Last Updated DateTime 02/05/2024 160.02 cm 34.7 kg/m2 07967.1 g Suzie Arevalo RN [facility] 02/05/2024 12:46:27 Social History Question Answer Notes LastModified by Organizat ion Details LastModified Time Tobacco Smoking Status Never Smoker [facility] 04/06[facility]2015 11:08:40 Do You Have An Advance [...] Or Recreational Drugs Have You Used? Krishnadebbie [email or web address] Information not available 10/29/2016 Education 2 Year [...] available 02/04/2019 Are you currently employed? Yes [facility] Information not available 11/30/2020 Are you able [...] anxious, or unable to sleep at night)? [id number] Information not available 02/06/2022 Family History Relationship [...] virus, quadrivalent, PF 9 completed Not Available [facility] 05/07/2019 02:39:21 Influenza, split virus, quadrivalent, PF 5 completed Suzie Arevalo RN null, [facility] 04/06/2015 11:08:40 Tdap 5 completed Yasmeen Ny null, [facility] 06/08/2015 11:20:28 Influenza, split virus, quadrivalent, preservative 6 completed Suzie Arevalo RN null, [facility] 02/08/2016 13:10:18 HPV9 3 completed Chuck Craig [facility] Attn: Accounting,[address] [place], [address], [facility] 03/09/2023 16:14:18 HPV9 4 completed Suzie Arevalo RN null, [facility] 04/21/2023 15:54:10 HPV9 4 completed Chuck Craig [facility] Attn: Accounting,[address] [place], [address], [facility] 09/03/2023 17:55:54 Influenza, split virus, quadrivalent, preservative 7 completed Suzie Arevalo RN null, [facility] 01/02/2017 13:24:13 Past Encounters Encounter ID Performer Location Encounter Start Date Encounter Closed Date Diagnosis/Indication Diagnosis SNOMED-CT Code Diagnosis ICD10 Code Diagnosis Note [id number] Chuck Criag [facility] [address] [place] [address] 04/06/2015 10:47:18 04/10/2015 12:01:25 Acute pharyngitis 037542843 J02.9 [id number] Chuck Craig [facility] [address] [place] [address] 06/08/2015 11:16:42 06/12/2015 13:29:41 Adult health examination 960272294 Z00.00 Morbid obesity 282434980 E66.01 Allergic rhinitis 656654 04 J30.9 Venous varices 589207963 I83.92 [id number] [place] [address] [place] [address] 4 06/11/2015 10:14:51 06/12/2015 13:43:16 Morbid obesity 376408631 E66.01 [id number] [place] [address] [place] [address] 4 08/03/2015 10:08:39 08/06/2015 17:57:10 Morbid obesity 545142104 E66.01 13# weight loss in 2 months Diet, weight loss and exercise Monitor for adverse side effects Hyperlipidemia 82193183 E78.5 Discussed test results Increase exercise to 50-60 minutes daily 5-6 times per week [id number] [place] [address] [place] [address] 4 10/08/2015 12:43:54 10/16/2015 13:10:23 Morbid obesity 502567347 E66.01 7# weight gain in 2 months Diet, weight loss and exercise Monitor for adverse side effects Backache 140195398 M54.9 Hyperlipidemia 66904891 E78.5 Discussed test results Increase exercise to 50-60 minutes daily 5-6 times per week [id number] Salas Velasquez MD [place] [address] [place] [address] 4 11/28/2015 12:37:02 12/10/2015 11:50:21 Morbid obesity 877222473 E66.01 will give Rx for 1 more month if no weight loss will stop Diet, weight loss and exercise Monitor for adverse side effects Chronic dermatitis 58243 007 L30.9 Asteatosis cutis 5523091 0 L85.3 Backache 108292624 M54.9 [id number] [facility] [address] [place] [address] 4 02/08/2016 12:33:25 02/18/2016 13:08:13 Morbid obesity 342490094 E66.01 will give Rx for 1 more month if no weight loss will stop Diet, weight loss and exercise Monitor for adverse side effects Chronic dermatitis 76582 007 L30.9 keep appointmen t with Derm Hyperlipidemia 94228629 E78.5 Increase exercise to 50-60 minutes daily 5-6 times per week Asteatosis cutis 5860864 0 L85.3 Cetaphil products Backache 620121361 M54.9 get xrays done DAIN/stret lisandra/exer cise/weigh t loss Rhinitis 89432031 J00 use Zyrtec daily [id number] Chuck Craigformerly [facility] [address] 4 02/11/2016 12:20:28 02/18/2016 13:29:38 Hyperlipidemia 56296709 E78.5 Increase exercise to 50-60 minutes daily 5-6 times per week [id number] Chuck Craigformerly [facility] [address] [place] [address] 4 02/20/2016 16:54:19 02/29/2016 12:13:11 Eruption 416402995 R21 OTC ZYRTEC 10mg once daily allergen panel + food mix (seafoods) , environmen sven allergens, perennial grass Multiple environmental allergies 440624635 T78.49XD Allergy to seafood 82516 001 Z91.425 [id number] Chuck Cragiformerly [facility] [address] [place] [address] 4 03/12/2016 11:55:30 03/19/2016 11:09:10 Morbid obesity 360689227 E66.01 6 pound weight loss since a month ago Diet, weight loss and exercise Monitor for adverse side effects Asteatosis cutis 7807660 0 L85.3 Cetaphil products Eruption 124472563 R21 OTC ZYRTEC 10mg once daily allergen panel + food mix (seafoods) , environmen sven allergens, perennial grass Prediabetes 957064009 R7 3.03 Hyperlipidemia 27941575 E78.5 Increase exercise to 50-60 minutes daily 5-6 times per week [id number] Salas Velasquez MD [facility] [address] [address] 04/09/2016 12:13:53 04/16/2016 17:41:34 Morbid obesity 495227063 E66.01 6 pound 1/4 ounce weight loss since a month ago Diet, weight loss and exercise Monitor for adverse side effects As its the Holidays and patient is not having any side effects will give Rx this month--the n 3 months off Prediabetes 898594755 R7 3.03 [id number] Salas Velasquez MD [facility] [address] [address] 04/18/2016 10:31:37 04/24/2016 10:54:52 Acute vaginitis 76680384 N76.0 Increase Doxyciclin e 100mg once daily to twice daily for the next seven days to cover UTI then return to once daily dosing Dysuria 16693515 R30.0 Prediabetes 823405080 R7 3.03 [id number] Salas Velasquez MD [facility] [address] [place] [address] 06/09/2016 10:56:27 06/17/2016 10:08:56 Acute conjunctivitis 39556077 H10.31 [id number] Salas Velasquez MD [facility] [address] [place] [address] 06/30/2016 12:01:19 07/02/2016 17:53:15 Chronic dermatitis 82528771 L30.9 Seen by derm 02/2016 given about same treatment she had received from this office. SHe wishes to continue treatment. Requesting refills. Asteatosis cutis 0992820 0 L85.3 Cetaphil products Morbid obesity 053655969 E66.01 No weight loss since last visit Diet, weight loss and exercise Backache 978547532 M54.9 Xray shows DJD/stretc gus/exerc ise/weight loss Pain in right knee 77751 98392 41878 M25.561 will send for PT Psoriasis of scalp 78162 8008 L40.9 [id number] Chuck Craig [facility] [address] [place] [address] 4 08/20/2016 12:05:58 08/27/2016 17:50:49 Morbid obesity 825245057 E66.01 11 pound weight loss since last visit Diet, weight loss and exercise Hyperlipidemia 52198579 E78.5 Increase exercise to 50-60 minutes daily 5-6 times per week Chronic dermatitis 62232 007 L30.9 Seen by derm 02/2016 given about same treatment she had received from this office. SHe wishes to continue treatment. Requesting refills. Impaired g lucose tolerance 7695982 R73.03 Prediabetes 352733016 R7 3.03 Increased blood pressure 47541608 R03.0 monitor blood pressure Have RN check b/p in 1 month avoid salt weight loss encouraged Allergic rhinitis 713868 04 J30.1 zyrtec samples Pain in right knee 40493 92958 98725 M25.561 Patient to continue PT exercises at home Patient continues to have symptoms despite NSAIDS/PT for 3 1/2 months--kn ee xray essentiall y normal showed minor swelling Take Meloxicam daily for the next couple of months for knee inflammati on [id number] Salas Velasquez MD [facility] [address] [address] 10/17/2016 15:58:37 10/21/2016 16:47:09 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 [address] [place] [address] 10/29/2016 10:37:36 11/04/2016 13:11:34 Lipoma of skin and subcutaneous tissue (excluding face) 477495684 D17.30 [id number] [facility] [address] [address] 01/02/2017 12:13:06 01/10/2017 22:13:03 Morbid obesity 072012805 E66.01 5bpound weight gain since last visit Diet, weight loss and exercise Hyperlipidemia 98162569 E78.5 Increase exercise to 50-60 minutes daily 5-6 times per week Try [place] 3 FA Chronic dermatitis 42708 007 L30.9 Seen by derm 02/2016 given about same treatment she had received from this office. SHe wishes to continue treatment. Requesting refills. Prediabetes 774749395 R7 3.03 will repeat labs at next visit Allergic rhinitis 900745 04 J30.1 Cystic acne 34207611 L70 .0 drink a lot of water with this medication and daily banana Edema of l ower extremity 106249915 R60.0 recommend compressio n hose [id number] Salas Velasquez MD [facility] [address] [address] 03/05/2018 11:48:06 03/16/2018 13:07:08 Adult health examination 619925783 Z00.00 Upper resp iratory infection 05956555 J06.9 Venous varices 703175703 I83.92 Morbid obesity 737454150 E66.01 6# weight loss since last visit Diet, weight loss and exercise Chronic dermatitis 22483 007 L30.9 Seen by derm 02/2016 given about same treatment she had received from this office. SHe wishes to continue treatment. Requesting refills. Dyslipidemia 815241991 E 78.5 Psoriasis of scalp 54913 8008 L40.9 Hyperglycemia 32167364 R 73.9 accu check random 240 fasting Acute fron sven sinusitis 93794926 J01.10 Multiple environmental allergies 252483592 T78.49XD Chronic back pain 541708 002 G89.29 Headache 87255778 R51 suspect migraines Uncontroll ed type 2 diabetes mellitus 666126311 E11.65 [id number] Salas Velasquez MD [facility] [address] [address] 07/02/2018 10:45:47 07/02/2018 17:36:52 Uncontrolled type 2 diabetes mellitus 306331722 E11.65 Acute fron sven sinusitis 96832639 J01.10 Multiple environmental allergies 686229471 T78.49XD continue otc Psoriasis of scalp 27043 8008 L40.9 Chronic dermatitis 23790 007 L30.9 Seen by derm 02/2016 given about same treatment she had received from this office. SHe wishes to continue treatment. Requesting refills. Prehypertension 10005131 9 R03.0 reduce salt in your diet 50-60 minutes of aerobic physical activity 5-6 time per week lose weight 5-20% of current body weight if B/P remains elevated will start B/P meds Body mass index 40+ - severely obese 905926988 Z68.41 bmi 42 Mixed hyperlipidemia 267 334075 E78.2 Avoid all breads, potatoes, cereal, pasta, rice, margarine, refined sugars, milk yogurt, ice cream, juices, soda (including diet), beer, and manmade or manufactur ed desserts. Enjoy steak, fish, chicken (no skin), pork, butter, vegetables , beans, nuts, whole eggs, cheese (low fat or skim), cream in your coffee. Depression screening 171 749286 Z13.31 negative [id number] Salas Velasquez MD [facility] [address] [place] [address] 4 01/13/2019 12:45:24 01/13/2019 18:11:52 Acute frontal sinusitis 24438691 J01.10 Cough 00524581 R05 Multiple environmental allergies 986917647 T78.49XD get otc antihistam ine and start [id number] Salas Velasquez MD [facility] [address] [place] [address] 4 02/04/2019 10:55:51 02/04/2019 17:01:53 Uncontrolled type 2 diabetes mellitus 503529179 E11.65 uncontroll edfasting 901NA4H 9.6will continue Metformin bid started at [place] e/r Mixed hyperlipidemia 267 343993 E78.2 Avoid all breads, potatoes, cereal, pasta, rice, margarine, refined sugars, milk yogurt, ice cream, juices, soda (including diet), beer, and manmade or manufactur ed desserts. Enjoy steak, fish, chicken (no skin), pork, butter, vegetables , beans, nuts, whole eggs, cheese (low fat or skim), cream in your coffee. Multiple environmental allergies 562949165 T78.49XD continue otc Chronic dermatitis 13449 007 L30.9 Seen by derm 02/2016 given about same treatment she had received from this office. SHe wishes to continue treatment. Requesting refills. Prehypertension 98254582 9 R03.0 reduce salt in your diet 50-60 minutes of aerobic physical activity 5-6 time per week lose weight 5-20% of current body weight will start Lisinopril 2.5mg for kidney protection today Body mass index 30+ - obesity 289755882 Z68.39 BMI 39Healthy body weight 105-135 Administra tion of influenza vaccine 68957126 Z23 [id number] Salas Velasquez MD [facility] [address] [place] [address] 08/17/2019 11:30:26 08/18/2019 11:27:38 Uncontrolled type 2 diabetes mellitus 855037780 E11.65 uncontroll edshe forgets to take evening [id number] 8.3will change Metformin 1000mg bid to Metformin ER 1000mg (2) Mixed hyperlipidemia 267 847927 E78.2 Avoid all breads, potatoes, cereal, pasta, rice, margarine, refined sugars, milk yogurt, ice cream, juices, soda (including diet), beer, and manmade or manufactur ed desserts. Enjoy steak, fish, chicken (no skin), pork, butter, vegetables , beans, nuts, whole eggs, cheese (low fat or skim), cream in your coffee. Multiple environmental allergies 736655479 T78.49XD continue otc Body mass index 30+ - obesity 750899884 Z68.39 BMI 39Healthy body weight 105-135 Chronic dermatitis 55948 007 L30.9 Seen by derm 02/2016 given about same treatment she had received from this office. SHe wishes to continue treatment. Requesting refills. Prehypertension 49844717 9 R03.0 reduce salt in your diet 50-60 minutes of aerobic physical activity 5-6 time per week lose weight 5-20% of current body weight will start Lisinopril 2.5mg for kidney protection today Headache 88624452 R51 suspect migrainesC T of Head 01/2019 normal Anxiety 92877475 F41.9 psychother apist listauto relaxation exerciseRX for prn use Acute fron sven sinusitis 62691698 J01.10 [id number] Salas Velasquez MD [facility] [address] [place] [address] 09/16/2019 12:28:24 09/19/2019 10:06:07 Generalized anxiety disorder 45515112 F41.1 recommend psychother apist visits-pt will check with her 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 wants to olive picker Rx at office Body mass index 40+ - severely obese 213926839 Z68.41 bmi 42 [id number] Salas Velasquez MD [facility] [address] [place] [address] 10/14/2019 10:34:20 10/17/2019 06:38:07 Generalized anxiety disorder 87586945 F41.1 recommend psychother apist visits-pt will check with her 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 wants to olive picker Rx at officepati ent fees better agrees to increasing dose of Escitalopr am 10mg to 20mg elliottysluke is aware will not refill klonopin for ongoing use Body mass index 40+ - severely obese 985255373 Z68.41 bmi 42 [id number] Salas Velasquez MD [facility] [address] [place] [address] 4 10/24/2019 12:45:53 10/25/2019 06:47:00 Acute sinusitis 01475780 J01.90 [id number] Salas Velasquez MD [facility] [address] [place] [address] 4 11/18/2019 14:10:09 11/21/2019 07:27:44 Uncontrolled type 2 diabetes mellitus 956981919 E11.65 uncontroll edshe forgets to take evening doseLast HA1C 8.3will continue Metformin ER 1000mg (2) Prehypertension 86165368 9 R03.0 reduce salt in your diet 50-60 minutes of aerobic physical activity 5-6 time per week lose weight 5-20% of current body weight patient stooped Lisinopril 2.5mg for kidney protection about a month ago-had reaction Mixed hyperlipidemia 267 480017 E78.2 Avoid all breads, potatoes, cereal, pasta, rice, margarine, refined sugars, milk yogurt, ice cream, juices, soda (including diet), beer, and manmade or manufactur ed desserts. Enjoy steak, fish, chicken (no skin), pork, butter, vegetables , beans, nuts, whole eggs, cheese (low fat or skim), cream in your coffee. Multiple environmental allergies 560820351 T78.49XD continue otc Body mass index 30+ - obesity 863348714 Z68.39 BMI 39Healthy body weight 105-135 Chronic dermatitis 16221 007 L30.9 Seen by derm 02/2016 given about same treatment she had received from this office. SHe wishes to continue treatment. Still has at home aware not to use in large quantities Headache 31389208 R51 suspect migrainesC T of Head 01/2019 normal Generalize d anxiety disorder 03939617 F41.1 recommend psychother apist visits-pt will check with her job on thisPatien t stopped both Escitalopr am and Clonazepam two weeks ago when she found out she was 7 [id number] Salas Velasquez MD [facility] [address] [place] [address] 06/06/2020 12:16:58 06/07/2020 14:23:37 Mixed hyperlipidemia 524327217 E78.2 Avoid all breads, potatoes, cereal, pasta, rice, margarine, refined sugars, milk yogurt, ice cream, juices, soda (including diet), beer, and manmade or manufactur ed desserts. Enjoy steak, fish, chicken (no skin), pork, butter, vegetables , beans, nuts, whole eggs, cheese (low fat or skim), cream in your coffee. Body mass index 40+ - severely obese 299868838 Z68.41 bmi 42 Prehypertension 11818553 9 R03.0 reduce salt in your diet 50-60 minutes of aerobic physical activity 5-6 time per week lose weight 5-20% of current body weight Chronic dermatitis 17540 007 L30.9 Seen by derm 02/2016 given about same treatment she had received from this office. SHe wishes to continue treatment. Has refills. Stable at present time. Uncontroll ed type 2 diabetes mellitus 836251588 E11.65 uncontroll edshe forgets to take evening doseLast HA1C 8.3will restart Metformin ER 1000mg (2) [id number] Salas Velasquez MD [facility] [address] [address] 07/06/2020 15:11:23 07/09/2020 14:05:28 Uncontrolled type 2 diabetes mellitus 794315939 E11.65 uncontroll edshe forgets to take evening doseLast HA1C 8.3will restart Metformin ER 1000mg (2) Mixed hyperlipidemia 267 552883 E78.2 Avoid all breads, potatoes, cereal, pasta, rice, margarine, refined sugars, milk yogurt, ice cream, juices, soda (including diet), beer, and manmade or manufactur ed desserts. Enjoy steak, fish, chicken (no skin), pork, butter, vegetables , beans, nuts, whole eggs, cheese (low fat or skim), cream in your coffee. [id number] Salas Velasquez MD [facility] [address] [address] 08/31/2020 16:16:37 09/03/2020 16:30:16 Uncontrolled type 2 diabetes mellitus 225500634 E11.65 uncontroll ed she forgets to take evening dose Last HA1C 6.4 on 07/06/2020 will continue Metformin ER 1000mg (2) will add Tradjenta 5mg daily pt is not BF Mixed hyperlipidemia 267 441564 E78.2 07/06/2020 [id number] Trig 441 HDL 32 LDL 150 Avoid all breads, potatoes, cereal, pasta, rice, margarine, refined sugars, milk yogurt, ice cream, juices, soda (including diet), beer, and manmade or manufactur ed desserts. Enjoy steak, fish, chicken (no skin), pork, butter, vegetables , beans, nuts, whole eggs, cheese (low fat or skim), cream in your coffee. Body mass index 40+ - severely obese 513364880 Z68.41 bmi 42 Prehypertension 02998922 9 R03.0 reduce salt in your diet 50-60 minutes of aerobic physical activity 5-6 time per week lose weight 5-20% of current body weight Chronic dermatitis 65063 007 L30.9 Seen by derm 02/2016 given about same treatment she had received from this office. SHe wishes to continue treatment. Has refills. Stable at present time. Depression screening 171 193042 Z13.31 positive patient on sertraine 50mg daily per her test driller [id number] Salas Velasquez MD [facility] [address] [place] [address] 11/30/2020 12:06:22 12/05/2020 06:56:56 Uncontrolled type 2 diabetes mellitus 661668852 E11.65 she forgets to take evening dose Last HA1C 6.4 on 07/06/2020 will continue Metformin ER 1000mg (2)Jardian ce was not coveredPat ient has been using Humulin N NPH 25 units BIDBS are better 110-160 range Mixed hyperlipidemia 267 711720 E78.2 07/06/2020 [id number] Trig 441 HDL 32 LDL 150 Avoid all breads, potatoes, cereal, pasta, rice, margarine, refined sugars, milk yogurt, ice cream, juices, soda (including diet), beer, and manmade or manufactur ed desserts. Enjoy steak, fish, chicken (no skin), pork, butter, vegetables , beans, nuts, whole eggs, cheese (low fat or skim), cream in your coffee. Body mass index 40+ - severely obese 006547601 Z68.41 bmi 42 Prehypertension 23588286 9 R03.0 reduce salt in your diet 50-60 minutes of aerobic physical activity 5-6 time per week lose weight 5-20% of current body weight Chronic dermatitis 77660 007 L30.9 Seen by derm 02/2016 given about same treatment she had received from this office. SHe wishes to continue treatment. Has refills. Stable at present time. Depression screening 171 Z13.31 positive patient on sertraine 50mg daily started per her OB/gynneed s refills of sertraline from this office as she no longer seeing OB Anxiety 76362033 F41.9 psychother apist listauto relaxation exerciseRX for prn use Psoriasis of scalp 07749 8008 L40.9 [id number] Salas Velasquez MD [facility] [address] [place] [address] 12/17/2020 12:10:32 12/18/2020 06:02:04 COVID-19 412223811 U07.1 [id number] Salas Velasquez MD [facility] [address] [place] [address] 07/25/2021 16:02:46 07/26/2021 15:40:58 Uncontrolled type 2 diabetes mellitus 741230066 E11.65 HA1C 8.5 [id number] 6.4 on 07/06/2020 will continue Metformin 1000mg 1 po bidwill add Ozempic 0.25mgMoni tor bs readings before and after meals (2Hrs) keep log Mixed hyperlipidemia 267 816011 E78.2 07/06/2020 [id number] Trig 441 HDL 32 LDL 150 Avoid all breads, potatoes, cereal, pasta, rice, margarine, refined sugars, milk yogurt, ice cream, juices, soda (including diet), beer, and manmade or manufactur ed desserts. Enjoy steak, fish, chicken (no skin), pork, butter, vegetables , beans, nuts, whole eggs, cheese (low fat or skim), cream in your coffee. Generalize d anxiety disorder 64470984 F41.1 ANDIE-7 Will re-start treatmentE scitalopra m 20mg dailyKlono pin for severe anxiety symptomsre commend psychother apist visits-amy l with problems or rthoughts of harming self Multiple environmental allergies 097644104 T78.49XD continue otc antihistam ine Body mass index 40+ - severely obese 505494050 Z68.41 bmi 37.2 Healthy Weight: 5'3= 107-140 lbs Chronic dermatitis 14948 007 L30.9 Seen by derm 02/2016 given about same treatment she had received from this office. SHe wishes to continue treatment. Depression screening 171 267720 Z13.31 negative Hyperpigme ntation of skin 69894469 L81.9 Furuncle of buttock 1243 0003 L02.32 [id number] Salas Velasquez MD [facility] [address] [place] [address] 07/26/2021 10:25:41 08/12/2021 16:22:57 Uncontrolled type 2 diabetes mellitus 936092304 E11.65 HA1C 8.5 [id number] 6.4 on 07/06/2020 will continue Metformin 1000mg 1 po bidwill add Ozempic 0.25mgMoni tor bs readings before and after meals (2Hrs) keep log Mixed hyperlipidemia 267 569172 E78.2 07/06/2020 [id number] Trig 441 HDL 32 LDL 150 Avoid all breads, potatoes, cereal, pasta, rice, margarine, refined sugars, milk yogurt, ice cream, juices, soda (including diet), beer, and manmade or manufactur ed desserts. Enjoy steak, fish, chicken (no skin), pork, butter, vegetables , beans, nuts, whole eggs, cheese (low fat or skim), cream in your coffee. [id number] Salas Velasquez MD [facility] [address] [place] [address] 09/06/2021 12:40:16 09/09/2021 14:59:34 Generalized anxiety disorder 82920728 F41.1 ANDIE-7 --07/20 1 betterWihui continue treatmentE scitalopra m 20mg dailyKlono pin for severe anxiety symptomsre commend psychother apist visits-amy l with problems or rthoughts of harming self Mixed hyperlipidemia 267 845138 E78.2 07/06/2020 [id number] Trig 441 HDL 32 LDL 150 07/26/2021 [...] try Atorvastat in 20mg daily and LSM [id number] Salas Velasquez MD [facility] [address] [place] [address] 4 11/01/2021 12:33:34 11/04/2021 11:16:46 Uncontrolled type 2 diabetes mellitus 600027371 E11.65 HA1C 7.HA1C 6.4 on 07/06/2020 will continue Metformin 1000mg 1 po bidwill continue Ozempic 0.25mgMoni tor bs readings before and after meals (2Hrs) keep log Mixed hyperlipidemia 267 431457 E78.2 07/06/2020 [id number] Trig 441 HDL 32 LDL 150 07/26/2021 [...] daily and LSM Generalize d anxiety disorder 16174678 F41.1 ANDIE-7 --/ 1 betterWill continue treatmentE scitalopra m 20mg dailyKlono pin for severe anxiety symptomsre commend psychother apist visits-amy l with problems or thoughts of harming self Multiple environmental allergies 463767025 T78.49XD continue otc antihistam ine Body mass index 40+ - severely obese 541852202 Z68.41 bmi 37.2 Healthy Weight: 5'3= 107-140 lbs Chronic dermatitis 05634 007 L30.9 Seen by derm 02/2016 given about same treatment she had received from this office. SHe wishes to continue treatment. Hyperpigme ntation of skin 53348214 L81.9 continue trilumause daily sunscreen Furuncle of buttock 1243 0003 L02.32 Depression screening 171 895852 Z13.31 negative Cystic acne 22729671 L70 .0 drink a lot of water with this medication and daily banana Fatigue 01132534 R53.83 [id number] Salas Velasquez MD [facility] [address] [place] [address] 02/06/2022 10:29:05 02/10/2022 14:44:03 Mixed hyperlipidemia 612244104 E78.2 07/06/2020 [id number] Trig 441 HDL 32 LDL 150 07/26/2021 [...] LSM Uncontroll ed type 2 diabetes mellitus 112036443 E11.65 HA1C 7.1HA1C 6.4 on 07/06/2020 will continue Metformin 1000mg 1 po bidIncreas e Ozempic 1mg once weeklyMoni tor bs readings before and after meals (2Hrs) keep log Generalize d anxiety disorder 02744567 F41.1 Will continue treatmentE scitalopra m 20mg dailyKlono pin for severe anxiety symptomsre commend psychother apist visits-amy l with problems or thoughts of harming self Multiple environmental allergies 387250350 T78.49XD igE 645 plus multiple specific environmen sven allergensc ontinue otc antihistam ine Body mass index 40+ - severely obese 307277970 Z68.41 bmi 39Healthy Weight: 5'3= 107-140 lbs Chronic dermatitis 86130 007 L30.9 Seen by derm 02/2016 given about same treatment she had received from this office. SHe wishes to continue treatment. Hyperpigme ntation of skin 74681724 L81.9 continue trilumause daily sunscreen Cystic acne 22930310 L70 .0 drink a lot of water with this medication and daily banana Depression screening 171 250033 Z13.31 PHQ2-9 negative Mental hea lt screening 739160825 Z13.39 ANDIE-7 negative Acute sinusitis 71153579 J01.90 Acute pharyngitis 964905 003 J02.9 Allergy to fish 42377891 2 Z91.013 + allergen profile to fishGets rash [id number] Sunil Hearn MD [facility] [address] [place] [address] 02/24/2022 11:58:05 02/25/2022 13:30:52 Acute urinary tract infection 029922651 N39.0 Body mass index 30+ - obesity 901125458 Z68.39 BMI 38Healthy body weight 105-135 Depression screening 171 681183 Z13.31 PHQ2-9 negative Mental hea lth screening 797197911 Z13.39 ANDIE-7 negative [id number] Salas Velasquez MD [facility] [address] [place] [address] 4 02/27/2022 11:01:08 02/28/2022 11:04:03 Acute pharyngitis 290223161 J02.9 Influenza A virus present 0133779329 08 J09.X2 [id number] Salas Velasquez MD [facility] [address] 4 05/02/2022 15:38:01 05/06/2022 08:27:26 Venous varices 172753639 I83.92 Multiple s kin tags on neck 048685485 L91.8 removed 3 skin tags from neck without complicati ons 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 every 6 hrs as necessary Depression screening 171 382626 Z13.31 PHQ2-9 negative Mental hea lth screening 728847906 Z13.39 ANDIE-7 negative [id number] Salas Velasquez MD [facility] [address] [place] [address] 05/06/2022 12:10:55 05/07/2022 12:58:03 Acute bilateral otitis media 803520615 H66.93 Acute ethm oidal sinusitis 93046796 J01.20 Body mass index 30+ - obesity 512222816 Z68.39 BMI 37Healthy body weight 105-135 Depression screening 171 751093 Z13.31 PHQ2-9 negative Mental hea lth screening 985277766 Z13.39 ANDIE-7 negative [id number] Salas Velasquez MD [facility] [address] [place] [address] 06/06/2022 12:29:56 06/09/2022 09:21:50 Uncontrolled type 2 diabetes mellitus 140138722 E11.65 HA1C 7.3 [id number] 6.4 on 07/06/2020 will continue Metformin 1000mg 1 po bidIncreas e Ozempic 1mg once weekly to 1.5mg once weeklyMoni tor bs readings before and after meals (2Hrs) keep log Mixed hyperlipidemia 267 849283 E78.2 07/06/2020 [id number] Trig 441 HDL 32 LDL 150 07/26/2021 [...] Atorvastat in 20mg daily and LSM Obesity 663972239 E66.9 BMI 37Healthy body weight 105-135 Body mass index 30+ - obesity 429058656 Z68.39 BMI 37Healthy body weight 105-135 Generalize d anxiety disorder 76283665 F41.1 Will continue treatmentE scitalopra m 20mg dailyKlono pin for severe anxiety symptomsre commend psychother apist visits-amy cindy with problems or thoughts of harming self Chronic dermatitis 05227 007 L30.9 Seen by derm 02/2016 given about same treatment she had received from this office. SHe wishes to continue treatment. Cystic acne 06013131 L70 .0 drink a lot of water with this medication and daily banana Multiple environmental allergies 403751751 T78.49XD igE 645 plus multiple specific environmen sven allergensc ontinue otc antihistam ine Allergy to fish 33573323 2 Z91.013 + allergen profile to fishGets rash Hyperpigme ntation of skin 83606393 L81.9 continue trilumause daily sunscreen Depression screening 171 317590 Z13.31 PHQ2-9 negative Mental hea [facility] screening 839030413 Z13.39 ANDIE-7 negative Vitamin D deficiency 347 33139 E55.9 Vitamin D 11.3Start Rx Vitamin D2 46989 IU once weekly for 12 weeksonce you complete RX buy otc vitamin D3 1000 IU once daily Candidal intertrigo 2661 80905 B37.2 nystatin Excess morales niculus of abdomen 8389778209 101 E65 Venous varices 814898856 I83.92 weight losselevat e legssuppor t hoseibupro fen prn 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 every 6 hrs as necessary Acute fron sven sinusitis 21814010 J01.10 [id number] Salas Velasquez MD [facility] [address] [address] 06/13/2022 10:30:08 06/19/2022 09:35:48 Mixed hyperlipidemia 332343655 E78.2 07/06/2020 [id number] Trig 441 HDL 32 LDL 150 07/26/2021 [...] try Atorvastat in 20mg daily and LSM [id number] Salas Velasquez MD [facility] [address] [address] 06/20/2022 11:46:01 06/23/2022 15:03:46 Acute urinary tract infection 268793217 N39.0 UA dip + nitrates Burn of skin 875831002 T 30.0 Body mass index 30+ - obesity 679006936 Z68.39 BMI 37.7Health y body weight 105-861 [id number] Salas Velasquez MD [facility] [address] [address] 08/14/2022 12:22:26 08/15/2022 11:44:01 Obesity 328953660 E66.9 BMI 37.4Health y body weight 105-135 Acute conj unctivitis of left eye 6551890997 40547 H10.32 Depression screening 171 443495 Z13.31 PHQ2-9 negative Mental hea lth screening 727697633 Z13.39 ANDIE-7 negative [id number] Salas Velasquez MD [facility] [address] [address] 08/27/2022 11:10:48 08/29/2022 18:13:08 Allergic reaction 958344222 T78.40XA Had popcorn at the moviesNo new detergents , lotions, medicinesN o other family member with rashNo respirator y symptoms Pruritic rash 95808823 L 28.2 Body mass index 30+ - obesity 843072133 Z68.39 BMI 37.4Health y body weight 105-135 Depression screening 171 405625 Z13.31 PHQ2-9 negative Mental hea lth screening 360278086 Z13.39 ANDIE-7 negative 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 seen by dermatolog ist in 2016given TCE1%Doxyc ycline 100mg bid #30 [id number] Salas Velasquez MD [facility] [address] [address] 09/23/2022 11:07:35 09/25/2022 13:21:26 Body mass index 30+ - obesity 735386737 Z68.39 BMI 38.3Health y body weight 105-135 Urinary symptoms 0772251 08 R39.9 Microscopic hematuria 19 4734497 R31.29 Depression screening 171 831340 Z13.31 PHQ2-9 negative Mental hea lth screening 797616323 Z13.39 ANDIE-7 negative [id number] Salas Velasquez MD [facility] [address] [place] [address] 10/03/2022 11:55:36 10/07/2022 08:33:38 Mixed hyperlipidemia 533366681 E78.2 07/06/2020 [id number] Trig 441 HDL 32 LDL 150 07/26/2021 [...] LSM Uncontroll ed type 2 diabetes mellitus 000956304 E11.65 HA1C 8.5 mwqsmOR5Y 6.4 on 07/06/2020 will continue Metformin 1000mg 1 po bidcontinu e trulicity but increaseMo nitor bs readings before and after meals (2Hrs) keep log 06/13/2022 BUN 13creat 0.41eGFR 134 Generalize d anxiety disorder 46105246 F41.1 Will continue treatmentE scitalopra m 20mg dailyKlono pin for severe anxiety symptomsre commend psychother apist visits-amy l with problems or thoughts of harming self Obesity 482192118 E66.9 BMI 38.3Health y body weight 105-135 Body mass index 30+ - obesity 294260066 Z68.39 BMI 38.3Health y body weight 105-135 Chronic dermatitis 49203 007 L30.9 Seen by derm 02/2016 given about same treatment she had received from this office. SHe wishes to continue treatment. 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 every 6 hrs as necessary Venous varices 457136878 I83.92 weight losselevat e legssuppor t hoseibupro fen prn Depression screening 171 018548 Z13.31 PHQ2-9 negative Mental hea [facility] screening 087453094 Z13.39 ANDIE-7 negative [id number] Salas Velasquez MD [facility] [address] [place] [address] 12/11/2022 10:13:00 12/12/2022 13:02:56 Pain in right heel 1612001452 863789 M79.671 Generalize d anxiety disorder 96852662 F41.1 Will continue treatmentE scitalopra m 20mg dailyKlono pin for severe anxiety symptomsre commend psychother apist visits-amy l with problems or thoughts of harming self Body mass index 30+ - obesity 010462456 Z68.39 BMI 38.4Health y body weight 105-397 [id number] Salas Velasquez MD [facility] [address] [place] [address] 03/09/2023 12:30:17 03/18/2023 11:17:40 Urinary symptoms 831496786 R39.9 Active or passive immunization 549674277 Z23 Dysuria 04075842 R30.0 self swab Depression screening 171 012559 Z13.31 PHQ2-9 negative Mental hea [facility] screening 837634040 Z13.39 ANDIE-7 negative [id number] Salas Velasquez MD [facility] [address] [address] 04/21/2023 12:34:51 04/23/2023 14:28:39 Uncontrolled type 2 diabetes mellitus 305683081 E11.65 HA1C 9.6 worsewill continue Metformin 1000mg 1 po bidstop 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 bs readings before and after meals (2Hrs) keep log 06/13/2022 BUN 13creat 0.41eGFR 134 Generalize d anxiety disorder 11540789 F41.1 Will continue treatmentE scitalopra m 20mg dailyKlono pin for severe anxiety symptomsre commend psychother api visits-amy l with problems or thoughts of harming self Mixed hyperlipidemia 267 820260 E78.2 07/06/2020 per365 Trig 441 HDL 32 LDL 150 07/26/2021 [...] Atorvastat in 20mg daily and LSM Obesity 881978412 E66.9 BMI 38.8Health y body weight 105-135 Body mass index 30+ - obesity 269636038 Z68.39 BMI 38.8Health y body weight 105-135 Chronic dermatitis 46236 007 L30.9 Seen by derm 02/2016 given about same treatment she had received from this office. SHe wishes to continue treatment. Cystic acne 24756305 L70 .0 drink a lot of water with this medication and daily banana Multiple environmental allergies 977818831 T78.49XD igE 645 plus multiple specific environmen sven allergensc ontinue otc antihistam ine Excess morales niculus of abdomen 3235351556 101 E65 Allergy to fish 12783570 2 Z91.013 + allergen profile to fishGets rash Vitamin D deficiency 347 84805 E55.9 11/01/2021 Vitamin D 11.3 buy otc vitamin D3 1000 IU once daily Hyperpigme ntation of skin 74809048 L81.9 continue trilumause daily sunscreenr eferring to derm Venous varices 238865749 I83.92 weight losselevat e legssuppor t hoseibupro fen prn Depression screening 171 118844 Z13.31 PHQ2-9 negative Mental hea lth screening 085181943 Z13.39 ANDIE-7 negative Active or passive immunization 469197922 Z23 Cholelithi asis without obstruction 38384310 K80.20 wants GB removal Steatotic liver disease 429931168 K76.0 04/15/2023 CT abd/pelvis w/con shows fatty liver, Hepatomega ly, yessica inguinal lymphadeno harmeet, cholelithi asis and R enlarged ovary. Abnormal l iver function 29403992 K76.89 04/15/2023 CT abd/pelvis w/con shows fatty liver, Hepatomega ly, yessica inguinal lymphadeno harmeet, cholelithi asis and R enlarged ovary. Inguinal lymphadenopathy 171939239 R59.0 04/15/2023 CT abd/pelvis w/con shows fatty liver, Hepatomega ly, yessica inguinal lymphadeno harmeet, cholelithi asis and R enlarged ovary. Anxiety 28390026 F41.9 psychother apist listauto relaxation exerciseRX for prn use Acute urin wang tract infection 153044288 N39.0 [id number] Salas Velasquez MD [facility] [address] [place] [address] 05/26/2023 10:56:48 05/29/2023 10:51:17 Urinary symptoms 952182327 R39.9 Dysuria 74379281 R30.0 Depression screening 171 130081 Z13.31 PHQ2-9 negative Mental hea lth screening 166321315 Z13.39 ANDIE-7 negative Postviral cough 56929398 4 R05.3 [id number] Salas Velasquez MD [facility] [address] [place] [address] 08/20/2023 11:47:59 08/24/2023 15:31:00 Mixed hyperlipidemia 336709488 E78.2 07/06/2020 [id number] Trig 441 HDL 32 LDL 150 07/26/2021 [...] LSM Body mass index 30+ - obesity 780598461 Z68.39 BMI 38.3Health y body weight 105-135 Uncontroll ed type 2 diabetes mellitus 923535498 E11.65 HA1C 9.6 worsewill continue Metformin 1000mg 1 po bidstop trulicityi ncrease mounjaro 5 mg once weekly to 7.5mg once weekly MounjaroMo nitor bs readings before and after meals (2Hrs) keep log 06/13/2022 BUN 13creat 0.41eGFR 134 04/21/2023 BUN 13Creat 0.55eGFR 124 Generalize d anxiety disorder 06448530 F41.1 Will continue treatmentE scitalopra m 20mg dailyKlono pin for severe anxiety symptomsre commend psychother apist visits-amy l with problems or thoughts of harming self Multiple environmental allergies 861964866 T78.49XD igE 645 plus multiple specific environmen sven allergensc ontinue otc antihistam ine Obesity 478088138 E66.9 BMI 38.8Health y body weight 105-135 Chronic dermatitis 30432 007 L30.9 Seen by derm 02/2016 given about same treatment she had received from this office. SHe wishes to continue treatment. Cystic acne 81689111 L70 .0 drink a lot of water with this medication and daily bananaderm will be starting accutane Excess morales niculus of abdomen 5488207025 101 E65 Has a rash itchysweat y red wet Allergy to fish 64213248 2 Z91.013 + allergen profile to fishGets rash Vitamin D deficiency 347 10786 E55.9 11/01/2021 Vitamin D 11.31/05/22 024 Vitamin D <4.0buy otc vitamin D3 1000 IU once daily Hyperpigme ntation of skin 75903575 L81.9 continue triluma-brush s from [place] daily sunscreenr eferred to dermderm to start accutane Venous varices 245663687 I83.92 weight losselevat e legssuppor t hoseibupro fen prn Steatotic liver disease 320297249 K76.0 04/15/2023 CT abd/pelvis w/con shows fatty liver, Hepatomega ly, yessica inguinal lymphadeno harmeet, cholelithi asis and R enlarged ovary. Depression screening 171 351459 Z13.31 PHQ2-9 negative Mental hea lth screening 139974962 Z13.39 ANDIE-7 negative Cholelithi asis without obstruction 90477467 K80.20 wants GB removalsee n surgeonwil l be having removal Abnormal l iver function 10451382 K76.89 04/15/2023 CT abd/pelvis w/con shows fatty liver, Hepatomega ly, yessica inguinal lymphadeno harmeet, cholelithi asis and R enlarged ovary. Anxiety 79064468 F41.9 psychother apist listauto relaxation exerciseRX for prn use Right uppe r quadrant pain 025660846 R10.11 [id number] Salas Velasquez MD [facility] [address] [address] 09/01/2023 10:14:59 09/09/2023 15:32:26 Mixed hyperlipidemia 910916693 E78.2 07/06/2020 [id number] Trig 441 HDL 32 LDL 150 07/26/2021 [...] and LSM Right uppe r quadrant pain 782495526 R10.11 [id number] Salas Velasquez MD [facility] [address] [address] 09/03/2023 12:13:17 10/05/2023 10:44:57 Obesity 876967367 E66.9 BMI 37.2Health y body weight 105-135 Body mass index 30+ - obesity 916334249 Z68.39 BMI 37.2Health y body weight 105-135 Pre-surger y evaluation 844592242 Z01.818 32 y/o HF presents for medical clearance for gall bladder surgery on 09/2023. The patient had multiple chronic medical problems: DM2, HPLD, ANDIE; BMI 30+, Hepatic steatosis. Her last HA1C on 08/20/2023 was 6.6. The patient has bee losing weight and exercising . She is not a smoker or uses illicit drugs. Active or passive immunization 127791061 Z23 Type 2 ana betes mellitus 36885979 E11.9 08/20/2023 HA1c 6.6 Mixed hyperlipidemia 267 010028 E78.2 07/06/2020 [id number] Trig 441 HDL 32 LDL 150 07/26/2021 [...] try Atorvastat in 20mg daily and LSM [id number] Salas Velasquez MD [facility] [address] [address] 11/02/2023 14:48:03 11/04/2023 16:21:33 Body mass index 30+ - obesity 766011816 Z68.39 The patient was started on phentermin e tabs 08/20/2023 to aid with her appetite/w eight loss. Back in August the patient weighed in at 216 She is 205 today. She continues to monitor diet and exercising .BMI 36.4Health y body weight 105-135 Obesity 785544667 E66.9 The patient was started on phentermin e tabs 08/20/2023 to aid with her appetite/w eight loss. Back in August the patient weighed in at 216 She is 205 today. She continues to monitor diet and exercising .BMI 36.4Health y body weight 105-135 Chronic dermatitis 18451 007 L30.9 Seen by derm 02/2016 given about same treatment she had received from this office. SHe wishes to continue treatment. Mental hea lt screening 187566248 Z13.39 ANDIE-7 negative [id number] Salas Velasquez MD [facility] [address] [address] 12/14/2023 12:34:48 12/17/2023 11:42:04 Body mass index 30+ - obesity 165231035 Z68.39 The patient was started on phentermin [...] I 35.1Health y body weight 105-135 Obesity 007021941 E66.9 BMI 35.1Health y body weight 105-885 [id number] Salas Velasquez MD [facility] [address] [address] 02/05/2024 12:44:32 02/12/2024 15:37:33 Uncontrolled type 2 diabetes mellitus 856881261 E11.65 HA1C 6.0 per patient at last checkwill continue Metformin 1000mg 1 po bidincreas e mounjaro 7.5mg once weekly to 10mg once weekly MounjaroMo nitor bs readings before and after meals (2Hrs) keep log 06/13/2022 BUN 13creat 0.41eGFR 134 04/21/2023 BUN 13Creat 0.55eGFR 124 Mixed hyperlipidemia 267 262588 E78.2 07/06/2020 [id number] Trig 441 HDL 32 LDL 150 07/26/2021 [...] LSM Body mass index 30+ - obesity 509350207 Z68.39 BMI 34.7Health y body weight 105-135 Generalize d anxiety disorder 85167731 F41.1 Will continue treatmentE scitalopra m 20mg dailyKlono pin for severe anxiety symptomsre commend psychother apist visits-amy l with problems or thoughts of harming self Anxiety 48416196 F41.9 auto relaxation exerciseRX clonazepam at home for prn use Multiple environmental allergies 694381855 T78.49XD igE 645 plus multiple specific environmen sven allergensc ontinue otc antihistam ine Obesity 159496423 E66.9 BMI 34.7Health y body weight 105-135adv ised will provide RX phentermin e 3 months on 3 months off as long as some weight loss and no side effects Hyperpigme ntation of skin 32712115 L81.9 continue triluma-brush s from [place] daily sunscreenr eferred to derm Chronic dermatitis 67385 007 L30.9 Seen by derm 02/2016 given about same treatment she had received from this office. SHe wishes to continue treatment. Cystic acne 70253563 L70 .0 drink a lot of water with this medication and daily bananaderm will be starting accutane Excess morales niculus of abdomen 0751947631 101 E65 Has a rash itchysweat y red wet Allergy to fish 86385834 2 Z91.013 + allergen profile to fishGets rash Vitamin D deficiency 347 70943 E55.9 11/01/2021 Vitamin D 11.// 024 Vitamin D <4.0buy otc vitamin D3 1000 IU once daily Venous varices 992438745 I83.92 weight losselevat e legssuppor t hoseibupro fen prn Steatotic liver disease 203205472 K76.0 04/15/2023 CT abd/pelvis w/con shows fatty liver, Hepatomega ly, yessica inguinal lymphadeno harmeet, cholelithi asis and R enlarged ovary. Abnormal l iver function 47417166 K76.89 04/15/2023 CT abd/pelvis w/con shows fatty [...] Member ID Guarantor Name 09/01/2023 2 [place] [employer] Yasmeen Ny [id number] Yasmeen Ny 09/01/2023 1 [employer] - ALLIED BENEFITS - OPEN ACCESS [id number] Yasmeen Ny [id number] Yasmeen Ny 09/03/2023 2 [place] [facility] Yasmeen Ny [id number] Yasmeen Ny 09/03/2023 1 [employer] - ALLIED BENEFITS - OPEN ACCESS [id number] Yasmeen Ny [id number] Yasmeen Ny 11/02/2023 2 [place] [facility] Yasmeen Ny [id number] Yasmeen Ny 11/02/2023 1 [employer] - ALLIED BENEFITS - OPEN ACCESS [id number] Yasmeen Ny [id number] Yasmeen Ny 12/14/2023 2 [place] [facility] Yasmeen Ny [id number] Yasmeen Ny 12/14/2023 1 [employer] - ALLIED BENEFITS - OPEN ACCESS [id number] Yasmeen Ny [id number] Yasmeen Ny 02/05/2024 2 [place] [facility] Yasmeen Ny [id number] Yasmeen Ny 02/05/2024 1 [employer] - ALLIED BENEFITS - OPEN ACCESS [id number] Yasmeen Ny [id number] Yasmeen Ny Notes Date Note Type Note [...] no contraindications. LAURA Hancock Attn: Accounting ,[address] [place], [address] , [facility] 09/03/2023 18:04:02 024 text/ht [...] chronic dermatitis. WELLINGTON Hancock Attn: Accounting ,[address] [place], [address] , [facility] 11/02/2023 15:40:54 024 text/ht ml ObesityReported bypatient.Context:no [...] done yet. LAURA Hancock Attn: Accounting ,[address] [place], [address] , [facility] 12/14/2023 13:05:16 024 text/ht ml [...] menstruationHyperlipidemiaReported bypatient.Type of hyperlipidemia:combined Duration:chronic;intermittent Prior Tests:07/06/2020 [id number] Trig 441 HDL 32 LDL 150 07/26/2021 [...] prn anxiety. CHU Hancock- Attn: Accounting ,[address] [place], [address] , [facility] 02/05/2024 15:15:18 OBGyn Episode Ob Episode Information Episode Created Date Number of Fetuses Patient Bloodtype Patient rh Status Prepregnancy Weight lbs Domestic Partner Domestic Partner Phone Father Name Court Collections Officer Status 06/06/19 21 1 CLOSED Fetus Data First Name Last Name Admitted to NICU Weight (g) Sex Living Outcome Pediatric Complications Fetus ID Race Codes Race Delivery Type M [id number] Vaginal Rajeev Calculation Initial Rajeev Date Initial [...]
[2024-09-23 10:16] VITALS: BP 146/74; PULSE 73
[2024-09-23 10:29] LABS: Basophils Percent Auto 0.2 % (0.2-1.2); Eosinophils Absolute Auto 0.1 K/mm3 (0-0.3); Eosinophils Percent Auto 0.6 % (0-4.4); Hematocrit 35.6 % (37.0-47.0); Hemoglobin 11.5 g/dL (12.0-15.0); Immature Granulocyte Absolute 0.05 K/mm3 (0.00-0.031); Immature Granulocyte Percent A 0.6 % (0-0.5); Lymphocytes Percent Auto 27.7 % (18.3-44.2); Mean Corpuscular HGB Conc 32.3 g/dl (32-36); Mean Corpuscular Hemoglobin 26.9 pg (26-34); Mean Corpuscular Volume 83.4 fl (80-100); Mean Platelet Volume 11.4 fl (7.4-10.4); Monocytes Absolute Auto 0.6 K/mm3 (0.1-0.6); Monocytes Percent Auto 6.3 % (2.6-8.5); Neutrophils Absolute Auto 5.9 K/mm3 (1.3-6.7); Neutrophils Percent Auto 64.6 % (45.5-73.1); Platelet Count Result 246 k/mm3 (150-375); Red Blood Count 4.27 M/mm3 (4.2-5.4); Red Cell Distribution Width 14.2 % (11.5-14.5)
[2024-09-23 10:31] VITALS: BP 146/87; PULSE 81
[2024-09-23 10:37] LABS: Add Urine Microscopic? YES; Appearance Urine Clear (Clear); Bacteria Urine 2+ /hpf; Bilirubin Urine Negative (Negative); Blood Urine Negative (Negative); Color Urine Yellow (Yellow); Glucose Urine UA Negative (Negative); Ketones Urine Negative (Negative); Leukocyte Esterase Ur Negative LEU/UL (Negative); Nitrate Urine Negative (Negative); Protein Urine 3+ mg/dL (Negative); RBC Urine 0-2 /hpf (0-2); Specific Grav Ur 1.023 (1.001-1.035); Squamous Epithelial Cell Urine Moderate /hpf (Few); Urobilinogen Urine 0.2 mg/dL (<2.0); WBC Urine 0-5 /hpf (0-3)
[2024-09-23 10:39] LABS: Alanine Aminotransferase 15 U/L (6-35); Albumin Level 3.2 g/dL (3.5-5.1); Alkaline Phosphatase 144 U/L (38-126); Anion Gap 7 mmol/L (4-12); Aspartate Amino Transferase 24 U/L (14-36); Bilirubin,Total 0.2 mg/dL (0.2-1.3); Blood Urea Nitrogen 9 mg/dL (7-17); Calcium 8.6 mg/dL (8.4-10.2); Carbon Dioxide 20 mmol/L (22-30); Chloride 108 mmol/L (98-107); Estimated Glomerular Filt Rate > 60; Glucose 99 mg/dL (65-110); Potassium 4.1 mmol/L (3.4-5.0); Sodium 135 mmol/L (137-145); Total Protein 6.7 g/dL (6.3-8.2); Uric Acid 4.8 mg/dL (2.5-7.5)
[2024-09-23 10:46] VITALS: BP 138/61; PULSE 75
[2024-09-23] MEDS: ACETAMINOPHEN/BUTALBITAL/CAFFEINE 325-50-40 MG TABLET (FIORICET) 1 TAB PO (10:48)
[2024-09-23 10:50] LABS: Total Protein Urine Random 569 mg/dL; Ur Ttl Prot Creatinine Ratio 4.95 mg/mg (0-0.20)
[2024-09-23 11:01] VITALS: BP 133/60; PULSE 85
[2024-09-23 11:11] VITALS: BMI 41.6
[2024-09-23 11:16] VITALS: BP 125/54; PULSE 77
[2024-09-23 11:31] VITALS: BP 151/73; PULSE 77
--- NOTE | 2024-09-23 11:46 | PC.NURSE ---
4060- Spoke with Dr. Aponte regarding labs and BPs. Patient headache decreased after fioricet. Orders to discharge to home with return to hospital if symptoms increase.
== END 2024-09-23 12:00 | disposition home or self-care (01) ==
LOC: ANHOBOP 10:00 → ANHOBPP 10:02
PROVIDERS: PCP Registered Nurse; Visit Provider Obstetrics & Gynecology
DX: O13.9 Gestational [pregnancy-induced] hypertension without significant proteinuria, unspecified trimester (principal); Z3A.00 Weeks of gestation of pregnancy not specified
CPT/HCPCS: 36415; 59025; 80053; 81001; 82570; 84156; 84550; 85025; 99199; A9270

== ENCOUNTER 2024-09-25 00:11 | Observation (INO) | payer OTHER, SELFPAY ==
[2024-09-25] VITALS (56 sets, daily range): BP systolic 112–169; BP diastolic 57–123; PULSE 74–96; O2SAT 95–100; BMI 41.2
--- OUTSIDE RECORDS SUMMARY | 2024-09-25 01:44 | XMS_ITS | Clinical Summary ---
Author Organization [facility] Address [address] [place] [address] Care Team Providers Care Food Equipment Service Technician Name Role Phone Chuck Nelson AUTOMATIC PRINT DEVELOPER-PRINTING PRESS MACHINIST Primary Care Pro vider Source Comments [facility],non-owned Affiliates and Associated Physician Practices is amultiple site organization consisting of ambulatory clinics and hospital sitesin [place], [place], [place] and [place]. This disclosure is being madepursuant to the Care Everywhere program and may not contain all information available regarding this patient. Last updated 18.[facility] ZingCheckout Allergies Active Allergy Reactions Criticality Noted Date [...] long-term current use of insulin ([facility]) Use 1 Each as directed 1 kit 024 Active blood glucose (OneTouch Verio) test stripIndicatio ns:Pre-existin g type 2 diabetes mellitus during , antepartum (HCC),Type 2 diabetes mellitus with stage 1 chronic kidney disease, with long-term current use of insulin ([facility]) To monitor blood glucose (sugar) 4x daily- fasting and 1 hour after meals 100 strip 5 024 Active Lancets (ONETOUCH DELICA PLUS 33G EXTRA FINE LANCET)Indicat ions:Pre-exist ing type 2 diabetes mellitus during , antepartum ([facility]),Type 2 diabetes mellitus with stage 1 chronic kidney disease, with long-term current use of insulin ([facility]) To monitor blood glucose (sugar) 4x daily- fasting and 1 hour after meals 100 Each 5 024 Active Glucagon (Baqsimi One Pack) 3 MG/DOSE POWD [place] 1 Each into the nose as needed [...] diabetes mellitus during , antepartum ([facility]) Take 2 (two) tablets by mouth once daily 100 tablet 1 024 Active Vit-Fe Fumarate-FA (M-Raz Plus) 27-1 MG TABS 025 Active magnesium oxide (Mag-Ox) 400 MG tablet Take 1 (one) tablet by mouth once daily 30 tablet 2 025 Active Additional Information Patient not taking.Reason: Patient adjusted, Informant: Patient, Reported on 09/20/2024 Insulin Pen Needle (TechLite Pen Curran) 32G X 4 MM MISCIndication s:Pre-existing type 2 diabetes mellitus during , antepartum ([facility]) Use 1 Each 5 times daily 150 Each 5 025 Active insulin lispro (HumaLOG;ADMel og) 100 UNIT/ML penIndications :Type 2 diabetes mellitus with hyperglycemia, unspecified whether terminal computer operator insulin use (HCC) Inject 18u before small [...] unspecified whether detention insulin use (HCC) Inject 24 units in the morning and 24 units at bedtime. Take dosages approximately 12 hours apart. Increase dose as directed due to increasing insulin requirements during . Max total daily dose = 50u 15 mL 5 025 Active Continuous Glucose Sensor (Dexcom G7 Sensor) MISCIndication s:Pre-existing type 2 diabetes mellitus during , antepartum ([facility]) Use 1 Each Continuous for 10 days 3 Each 5 025 2025 Active Clindamycin Phosphate (Clindamycin Phos, Once-Daily,) 1 % GEL APPLY A THIN LAYER TOPICALLY TO AFFECTED AREA TWICE DAILY Active Continuous Glucose Sensor (Dexcom G7 Sensor) MISCIndication s:Pre-existing type 2 diabetes mellitus during , antepartum ([facility]) Use 1 Each Continuous for 10 days 3 Each 5 024 2024 Discontinued(R eorder) insulin glargine (Lantus/Semgle e) 100 units/mL penIndications :Type 2 diabetes mellitus with hyperglycemia, unspecified whether detention insulin use (HCC) Inject 22 units in [...] migh t be different from the original. [employer] form completed. Diapers given. 07/26/2024, [...] 348K. Assessment & Plan (05/16/2020 12:49 PM SALESPERSON WOMEN'S [employer]ESSES): Resolution of headaches continues. Preeclampsia work up negative on 04/30: PCR: 0.18, AST: 25, ALT: 35, creatinine: 0.50, platelets: 348K. Normotensive today. Asymptomatic for preeclampsia. [facility] Plan: 1. Encouraged to continue to monitor for preeclampsia symptoms and if future headache occurs and not relieved with interventions, to always alert primary OB or seek OB evaluation at OB triage. Assessment & Plan (05/09/2020 2:03 PM SALESPERSON WOMEN'[employer]ESSES): Resolution of headaches this week. Preeclampsia work up negative on 04/30: PCR: 0.18, AST: 25, ALT: 35, creatinine: 0.50, platelets: 348K. Normotensive today. Asymptomatic for preeclampsia. [facility] Plan: 1. Encouraged to continue to monitor for preeclampsia symptoms and if headache not relieved with interventions, to always alert primary OB or seek OB evaluation at OB triage. 2. Riboflavin instructions given to tow picker OTC.. Assessment & Plan (05/02/2020 11:59 AM SALESPERSON WOMEN'S [employer]ESSES): Noticing headaches first thing in the morning [...] 5.8 Assessment & Plan (05/23/2020 12:34 PM SALESPERSON WOMEN'[employer]ESSES): 24 hour urine/CMP: 04/30: PCR: 0.18, AST: [...] office who agreed. Recommendation given to primary Headrig Sawyer and patient sent to [facility] today [...] . Assessment & Plan (05/16/2020 1:23 PM SALESPERSON WOMEN'S [employer]ESSES): 24 hour urine/CMP: 04/30: PCR: 0.18, AST: [...] delivery planning. 9. Sent to L/D at [facility] for continuous monitoring. Report called to both L/D and primary Headrig Sawyer's office regarding office visit today and decreased [...] hyperglycemia, or with concerning testing. MFM Dr. Dnagelo today agrees that patient should be reviewed with MFM weekly at this point for management of her glucose values, and potential delivery planning. 11. Will require insulin drip in labor. 12. reduce insulin by 50%. Benefit from close relationship with PCP following delivery. Recommend and PP weight reduction. Assessment & Plan (05/09/2020 12:01 PM [employer]ESPERSON [employer]OMEN[employer]ESSES): 24 hour urine/CMP: 04/30: PCR: 0.18, AST: 25, ALT: 35, creatinine: 0.50. hemoglobin A1c: 5.8%, 04/10; Previous A1c: 6% at 12 weeks. Reports normal dilated eye exam, records requested multiple times and never received. echo: completed and appropriate. Serial pikwhc08/28: EFW: 87% and 2028grams, AC: 95%. Anatomy [...] monitor. Assessment & Plan (05/02/2020 12:25 PM SALESPERSON [employer]OMEN[employer]ESSES): 24 hour urine/CMP: 04/30: PCR: 0.18, AST: [...] today. Assessment & Plan (04/25/2020 5:32 PM SALESPERSON WOMEN'[employer]ESSES): 24 hour urine/CMP: pending hemoglobin A1c: 5.8%, [...] she is scheduled to do with primary Headrig Sawyer again this Thursday. 8. Reviewed importance of [...] lab. Assessment & Plan (04/11/2020 11:49 AM SALESPERSON WOMEN'[employer]ESSES): 24 hour urine/CMP: pending, has to re-do [...] she is scheduled to do with primary Headrig Sawyer. 9. Reviewed importance of twice daily kick [...] exam. Assessment & Plan (03/28/2020 12:49 PM SALESPERSON WOMEN'S [employer]ESSES): 24 hour urine/CMP/hemoglobin A1c: plans to do [...] she becomes hypoglycemic. 7. Reviewed after hours [facility] triage number to call with any concerns. [...] Overview (04/05/2024): Insulin resistance;Recorded Elsewhere: No Location: [facility] Source: EHR Chronic: N Practice ID: [id number] [...] - 09/22/2024 11:59 PM CDT Hospital Encounter [facility] MATERNAL/ EVALUATION UNIT [address] [place] [address] Eduar Hernandez MD McIntyre, Amanda S, AUTOMATIC PRINT DEVELOPER-PRINTING PRESS MACHINIST Discharge Disposition: Home or Self Care 09/22/2024 7:30 AM CDT - 09/22/2024 8:29 AM CDT Hospital Encounter [facility]ERNAL/ EVALUATION UNIT [address] [place] [address] Eduar Hernandez MD Discharge Disposition: Home or Self Care 09/22/2024 Telephone [facility]/ [facility]ALUATION UNIT [address] [place] [address] Rita Morales RN Coordination Of Care 09/22/2024 Travel 09/21/2024 Telephone [facility]NAL/ EVALUATION UNIT [address] [place] [address] Yani Mares Appointment 09/20/2024 1:11 PM CDT - 09/20/2024 11:59 PM CDT Hospital Encounter [facility]ERNAL/ EVALUATION UNIT [address] [place] [address] Maryjane Ortega MD Mostello, Dorothea Jean, MD Discharge Disposition: Home or Self Care 09/20/2024 1:11 PM CDT - 09/20/2024 11:59 PM CDT Hospital Encounter [facility] MATERNAL/ EVALUATION UNIT [address] [place] [address] Luana Plummer MD Discharge Disposition: Home or Self Care 09/20/2024 1:11 PM CDT - 09/20/2024 11:59 PM CDT Hospital Encounter [facility]/ [facility]ATION UNIT [address] [place] [address] Maryjane Ortega MD Discharge Disposition: Home or Self Care 09/20/2024 1:00 PM CDT - 09/20/2024 1:10 PM CDT Hospital Encounter [facility]/ [facility]UATION UNIT [address] [place] [address] Maryjane Ortega MD Discharge Disposition: Home or Self Care 09/20/2024 Travel 09/13/2024 1:32 PM CDT - 09/13/2024 11:59 PM CDT Hospital Encounter [facility]/ [facility]UATION UNIT [address] [place] [address] Bird Stevenson MD Discharge Disposition: Home or Self Care 09/13/2024 1:30 PM CDT - 09/13/2024 1:31 PM CDT Hospital Encounter [facility]ATION UNIT [address] [place] [address] Bird Stevenson MD Discharge Disposition: Home or Self Care 09/13/2024 Travel 09/07/2024 Orders Only [facility]/ [facility] UNIT [address] [place] [address] Qiana Mcfarlane, RD/LD Pre-existing type 2 diabetes mellitus during , antepartum (HCC) 09/06/2024 1:06 PM CDT - 09/06/2024 11:59 PM CDT Hospital Encounter [facility]/ EVALUATION UNIT [address] [place] [address] Eduar Hernandez MD Discharge Disposition: Home or Self Care 09/06/2024 1:06 PM CDT - 09/06/2024 11:59 PM CDT Hospital Encounter [facility] EVALUATION UNIT [address] [place] [address] Eduar Hernandez MD Discharge Disposition: Home or Self Care 09/06/2024 1:05 PM CDT Hospital Encounter [facility] [address] [place] [address] Livan Anguiano DO Discharge Disposition: Home or Self Care 09/06/2024 1:00 PM CDT - 09/06/2024 1:04 PM CDT Hospital Encounter [facility] EVALUATION UNIT [address] [place] [phone] Livan Anguiano DO Discharge Disposition: Home or Self Care 09/06/2024 Refill [facility] [address] [place] [address] Luana Plummer MD Refill Request 09/06/2024 Travel 08/31/2024 Orders Only [facility] [address] [place] [address] Komal Ray MD 08/31/2024 Telephone [facility] [address] [place] [address] Cara Dent 08/30/2024 1:16 PM CDT - 08/30/2024 11:59 PM CDT Hospital Encounter [facility] [address] [place] [address] Bird Stevenson MD Discharge Disposition: Home or Self Care 08/30/2024 1:00 PM CDT Hospital Encounter [facility] [address] [place] [address] Bird Stevenson MD Discharge Disposition: Home or Self Care 08/30/2024 1:00 PM CDT Hospital Encounter [facility]/ EV[facility]UATION UNIT [address] [place] [address] Bird Stevenson MD Discharge Disposition: Home or Self Care 08/30/2024 Travel 08/29/2024 Orders Only [facility] [address] [place] [address] Elaine Sorenson RN Dysuria during in third trimester ([facility]) 08/23/2024 1:24 PM CDT - 08/23/2024 11:59 PM CDT Hospital Encounter [facility]/ [facility]ATION UNIT [address] [place] [address] Livan Anguiano DO Gross, Gilad A, MD Discharge Disposition: Home or Self Care 08/23/2024 1:24 PM CDT - 08/23/2024 11:59 PM CDT Hospital Encounter [facility]/ [facility]ATION UNIT [address] [place] [id number] Livan Anguiano DO Gross, Gilad A, MD Discharge Disposition: Home or Self Care 08/23/2024 1:24 PM CDT - 08/23/2024 11:59 PM CDT Hospital Encounter [facility]/ [facility]ATION UNIT [address] [place] [address] Livan Anguiano DO VIDEOTAPE EDITOR Discharge Disposition: Home or Self Care 08/23/2024 1:15 PM CDT - 08/23/2024 1:23 PM CDT Hospital Encounter [facility]NAL/ EVALUATION UNIT [address] [place] [address] Livan Anguiano DO Discharge Disposition: Home or Self Care 08/23/2024 Travel 08/03/2024 12:56 PM CDT - 08/03/2024 11:59 PM CDT Hospital Encounter [facility]/ EVALUATION UNIT [address] [place] [address] Dave Sevilla MD Discharge Disposition: Home or Self Care 08/03/2024 12:56 PM CDT - 08/03/2024 11:59 PM CDT Hospital Encounter [facility]/ [facility]UATION UNIT [address] [place] [address] Daev Sevilla MD Discharge Disposition: Home or Self Care 08/03/2024 Travel 08/01/2024 Orders Only [facility]/ [facility]ATION UNIT [address] [place] [address] Elaine Sorenson RN 07/29/2024 Telephone [facility]/ [facility] UNIT [address] [place] [address] Cara Dent 07/26/2024 1:58 PM CDT - 07/26/2024 11:59 PM CDT Hospital Encounter [facility]/ EV[facility]ATION UNIT [address] [place] [address] Eduar Hernandez MD Mostello, Dorothea Jean, MD Discharge Disposition: Home or Self Care 07/26/2024 1:58 PM CDT - 07/26/2024 11:59 PM CDT Hospital Encounter [facility]/ [facility]ATION UNIT [address] [place] [address] Eduar Hernandez MD Mostello, Dorothea Jean, MD Discharge Disposition: Home or Self Care 07/26/2024 1:58 PM CDT - 07/26/2024 11:59 PM CDT Hospital Encounter [facility]/ [facility]ATION UNIT [address] [place] [address] Eduar Hernandez MD Discharge Disposition: Home or Self Care 07/26/2024 Travel 07/20/2024 1:42 PM CDT - 07/20/2024 11:59 PM CDT Hospital Encounter [facility] Pediatrics - Cardiology [address] [place] [address] Moe Blackwell MD Discharge Disposition: Home or Self Care 07/20/2024 1:10 PM CDT - 07/20/2024 1:41 PM CDT Hospital Encounter [facility] - Cardiology [address] [place] [address] Sandy Perez MD Discharge Disposition: Home or Self Care 07/12/2024 1:53 PM CDT - 07/12/2024 11:59 PM CDT Hospital Encounter [facility] MATERNAL/ EVALUATION UNIT [address] [place] [address] Luana Plummer MD Discharge Disposition: Home or Self Care 07/12/2024 1:53 PM CDT - 07/12/2024 11:59 PM CDT Hospital Encounter [facility]/ EVALUATION UNIT [address] [place] [address] Luana Plummer MD Discharge Disposition: Home or Self Care 07/12/2024 Travel 06/28/2024 2:14 PM CDT - 06/28/2024 11:59 PM CDT Hospital Encounter [facility]ERNAL/ EVALUATION UNIT [address] [place] [address] Eduar Hernandez MD Chavan, Niraj R, MD Discharge Disposition: Home or Self Care 06/28/2024 2:14 PM CDT - 06/28/2024 11:59 PM CDT Hospital Encounter [facility]/ EV[facility]UATION UNIT [address] [place] [address] Eduar Hernandez MD Chavan, Niraj R, MD Discharge Disposition: Home or Self Care 06/28/2024 2:14 PM CDT Hospital Encounter [facility]ER[facility]/ EVALUATION UNIT [address] [place] [address] Eduar Hernandez MD Discharge Disposition: Home or [...] and heating? Not hard at all 08/23/2024 [employer] [place] [facility] - Occupational Stress [...] things needed for daily living? No 08/23/2024 Mcdavid Depression Scale Answer Date Recorded Mcdavid Depression Scale Total 1 03/01/2024 The thought [...] any time in the past 12 m [facility], were you homeless or living in a care home (including now)? No 08/23/2024 Estimated Date [...] 36.6 C (97.8 F) 02/28/2024 2:00 PM [employer]ESPERSON [employer]OM[employer] Respiratory Rate 16 07/12/2024 3:12 PM CDT Oxygen Saturation 98% 02/28/2024 5:00 PM [employer]ERSON [employer] Inhaled Oxygen Concentration - - Weight 113 kg (249 lb 3.2 oz) 09/20/2024 1:40 PM CDT Height 162.6 cm (5' 4) 06/08/2024 12:59 PM [employer]ERSON [employer]OMEN[employer] Body Mass Index 42.78 06/08/2024 12:59 PM SALESPERSON WOMEN'S DRESSES Plan of Treatment Upcoming Encounters Date Type Department Care Team (Late st Contact Info) Description 09/26/2024 9:30 AM CDT Appointment [facility]/ [facility]ATION UNIT [address] [place] [address] Livan Anguiano DO [address] [place] [phone] 09/26/2024 10:30 AM CDT Appointment [facility] UNIT [address] [place] [address] Livan Anguiano DO [address] [place] [phone] 09/26/2024 11:15 AM CDT Appointment [facility]/ [facility]ATION UNIT [address] [place] [address] Latanya Villanueva MD [address] [place] [phone] 09/26/2024 11:30 AM CDT Appointment [facility]/ [facility]ATION UNIT [address] [place] [address] Latanya Villanueva MD [address] [place] [phone] 09/27/2024 1:00 PM CDT Appointment [facility] UN[facility] [address] [place] [address] 09/27/2024 2:15 PM CDT Appointment [facility]/ EVALUATION UNIT [address] [place] [address] 09/29/2024 1:00 PM CDT Appointment [facility]/ EVALUATION UNIT [address] [place] [address] 10/03/2024 9:30 AM CDT Appointment [facility]/ EVALUATION UNIT [address] [place] [address] 10/03/2024 10:30 AM CDT Appointment [facility]/ EVALUATION UNIT [address] [place] [address] 10/06/2024 1:00 PM CDT Appointment [facility] MAT[facility]NAL/ EVALUATION UNIT [facility] [address] [place] [address] Health Maintenance Due Date Last Done Comments [...] URINE RANDOM PNL Routine 03/01/2024 4:35 PM [employer]ESPERSON [employer]OM[employer] Pre-existing type 2 diabetes mellitus during , antepartum Supervision of high-risk of young primigravida HEPATITIS C ANTIBODY Routine 03/01/2024 4:35 PM [employer]ERSON [employer]OMEN[employer] Pre-existing type 2 diabetes mellitus during , antepartum Supervision of high-risk of young primigravida PAP IG LB+HPV APTIMA Routine 03/01/2024 4:35 PM SALESPERSON WOMEN'S [employer]ESSES Supervision of high-risk of young primigravida HIV-1 HIV-2 ANTIBODY + HIV P24 AG PANEL Routine 03/01/2024 4:35 PM [employer]ESPERSON [employer]OMEN'[employer] Pre-existing type 2 diabetes mellitus during , antepartum Supervision of high-risk of young primigravida COMPREHENSIVE METABOLIC PANEL STAT 02/28/2024 2:11 PM SALESPERSON WOMEN'S [employer]ESSES from Last 3 Months or Most Recently Relevant to Health Maintenance Results * CULTURE URINE (09/22/2024 8:34 AM CDT) Only the most recent of4 resultswithin the time period is included. Culture Urine 10,000-50,000 CFU/mL urogenital luis SHITAL 09/23/2024 3:48 PM CDT [facility]CRO[facility] Urine URINE SPECIMEN OBTAINED BY CLEAN CATCH PROCEDURE / Unknown Collection / Unknown 09/22/2024 8:34 AM CDT 09/22/2024 9:35 AM CDT us Vianca Bailey MD LAB - MICROBIOLOGY TASHA FORRESTER Final Result [facility] [address] [place] [address], [facility] [phone] * SONOGRAM - LIMITED (09/22/2024 7:37 AM CDT) Pathologist [facility] Linked Results Indication ======== Diabetes mellitus, type II (on insulin) Obesity, Class II Normal echo 07/20/24 History ====== OB History 2. Para 1 [id number] Lab Tests Test Date Result NIPT 04/05/2024 [...] with twice weekly NST Coding ====== Procedures 27687: US Uterus Limited [facility] [employer] PACS Anatomical Region Laterality Modality Other 09/22/2024 7:37 AM CDT Eduar Hernandez MD [facility] ORDERABLES Edited Result - Final * (ABNORMAL) URINALYSIS - POCT (IP) BEAKER INTERFACE (09/20/2024 3:41 PM CDT) Only the most recent of7 resultswithin the time period is included. Color UA POCT Yellow Straw, Yellow, Dark Yellow, Light Yellow 09/20/2024 4:10 PM CDT [facility] Clarity UA POCT Clear Clear 4:10 PM CDT [facility] Specific [place] UA POCT >=1.030 1.005 - 1.030 09/20/2024 4:10 PM CDT [facility] pH UA POCT 6.0 5.0 - 8.0 pH 09/20/2024 4:10 PM CDT [facility] Protein UA POCT 3+(A) Negative 4:10 PM CDT [facility] Blood UA POCT Negative Negative 09/20/2024 4:10 PM CDT [facility] Leukocyte UA POCT Negative Negative 09/20/2024 4:10 PM CDT [facility] Nitrite UA POCT Negative Negative 4:10 PM CDT [facility] Glucose UA POCT Negative Negative 4:10 PM CDT [facility] Ketone UA POCT Negative Negative 09/20/2024 4:10 PM CDT [facility] Bilirubin UA POCT Negative Negative 09/20/2024 4:10 PM CDT [facility] Urobilinogen UA POCT 0.2 0.1 - 1.0 EU/dL 09/20/2024 4:10 PM CDT [facility] Urine URINE / Unknown 09/20/2024 3 :41 PM CDT 09/20/2024 4:10 PM CDT us Luana Plummer MD LAB - POINT OF CARE OR DERABLES Final Result [facility] [address] [place] [id number] * BIOPHYSICAL PROFILE W NST (09/20/2024 2:59 PM CDT) Only the most recent of5 resultswithin the time period is included. Linked Results Indication ======== Diabetes mellitus, type II (on insulin) Obesity, Class II Normal echo 07/20/24 History ====== OB History 2. Para 1 [id number] Lab Tests Test Date Result NIPT 04/05/2024 [...] 6 lb 0 oz EFW by [place]lock ([id number]) appropriate Growth Overview Exam date [place] BPD [...] maternal abnormalities Follow-up ======== Patient scheduled for [place] appt immediately following today's scan, notified provider of borderline oligohydramnios. Recommend r/o ROM. Recommend US for ABHAY check in 3 days if exam negative for ROM. Continue 2x/week testing (2x/week NST, weekly BPP), repeat UA Doppler studies in 1 week. Repeat growth in 3 weeks. Coding ====== Procedures [id number]: [place] [address]: Biophysical Profile W NST 95882: Umbilical Doppler [employer] PACS Anatomical Region Laterality Modality Other 09/20/2024 2:59 PM CDT Eduar Hernandez MD [facility] ORDERABLES Edited Result - Final * (ABNORMAL) GLUCOSE - POINT OF CARE (09/06/2024 2:57 PM CDT) Glucose WB/POC 67(L) 70 - 99 mg/dL 09/06/2024 3:05 PM CDT [facility] Specimen Type Arterial/C apillary 09/06/2024 3:05 PM CDT [facility] Blood BLOOD SPECIMEN / Unknown 09/06/2024 2:57 PM CDT 09/06/2024 3:05 PM CDT Livan Anguiano DO LAB - POINT OF CARE ORDERABLES Final Result [facility] [address] [place] [address] * (ABNORMAL) URINALYSIS REFLEX MICROSCOPIC REFLEX CULTURE (08/30/2024 1:22 PM CDT) Color UA Yellow Yellow, Straw 08/30/2024 2:31 PM CDT [facility] Clarity UA Clear Clear 08/30/2024 2:31 PM CDT [facility] Glucose UA Normal Normal 08/30/2024 2:31 PM CDT [facility] Bilirubin UA Negative Negative 08/30/2024 2:31 PM CDT [facility] Ketone UA Negative Negative 08/30/2024 2:31 PM CDT [facility] Specific [place] UA <1.005(L) 1.005 - 1.030 08/30/2024 2:31 PM CDT [facility] Blood UA Negative Negative 08/30/2024 2:31 PM CDT [facility] pH UA 6.5 5.0 - 8.0 pH 08/30/2024 2:31 PM CDT [facility] Protein UA Negative Negative 08/30/2024 2:31 PM CDT [facility] Urobilinogen UA Normal Normal mg/dL 08/30/2024 2:31 PM CDT [facility] Nitrite UA Negative Negative 08/30/2024 2:31 PM CDT [facility] Leukocyte Esterase UA 25 MIA/uL(A) Negative 08/30/2024 2:31 PM CDT [facility] RBC UA 0-2 0 - 5 # /hpf 08/30/2024 2:31 PM CDT [facility] WBC UA 0-5 0 - 5 # /hpf 08/30/2024 2:31 PM CDT [facility] Bacteria UA Trace(A) None Seen 08/30/2024 2:31 PM CDT [facility] Squamous Epithelial Cells 0-2 0 - 5 /hpf 08/30/2024 2:31 PM CDT [facility] Mucus UA 1+ /LPF 08/30/2024 2:31 PM CDT [facility] Reflex Status Culture to follow 08/30/2024 2:31 PM CDT [facility] Urine URINE SPECIMEN OBTAINED BY CLEAN CATCH PROCEDURE / Unknown Collection / Unknown 08/30/2024 1:22 PM CDT 08/30/2024 2:22 PM CDT Narrative [facility] - 08/30/2024 2:31 PM CDT Bel Gibson MD LAB - URINALYSIS ORDERABLES Wilma l Result Performing Organization Address [facility]/State/[facility] Co de Phone Number [facility] [address] [place] [address] * HEMOGLOBIN A1C (08/23/2024 4:16 PM CDT) Hemoglobin A1c 5.3 <5.7 % 08/23/2024 5:15 PM CDT [facility] Estimated Average Glucose 105 mg/dL 08/23/2024 5:15 PM CDT [facility] Blood BLOOD SPECIMEN / Unknown Venipuncture / Unknown 08/23/2024 4:16 PM CDT 08/23/2024 4:43 PM CDT Narrative [facility] - 08/23/2024 5:15 PM CDT HbA1c [...] National Glycohemoglobin Standardization Program (NGSP) certified method. us Lino Lombardo MD LAB - CHEMISTRY ORDERAB LES Final Result [facility] [address] [place] [address] * SONOGRAM - COMPLETE (07/26/2024 2:48 PM CDT) Only the most recent of2 resultswithin the time period is included. Linked Results Indication ======== Diabetes mellitus, type II Obesity, Class II Normal echo 07/20/24 History ====== OB History 2. Para 1 [id number] Lab Tests Test Date Result NIPT 04/05/2024 [...] 2 lb 9 oz EFW by Hadlock ([id number]) appropriate Growth Overview Exam date [place] BPD [...] begin twice weekly testing. Coding ====== Procedures 15069: US Preg Uterus Follow Up [employer] PACS Anatomical Region Laterality Modality Other 07/26/2024 2:48 PM CDT Eduar Hernandez MD [facility] ORDERABLES Edited Result - Final * [...] 07/20/2024 Exam Date/Time: 07/20/2024 1:47 PM Site: [facility] Current Location: [facility] EStaffOrdering Provider: Moe Blackwell Interpreting Physician: Sandy Perez MD Malter Operator: Aayush Rogers CS - FE Study Info Procedure: ECHO COMPLETE [...] 07/20/2024 Exam Date/Time: 07/20/2024 1:47 PM Site: [facility] Current Location: [facility] EStaffOrdering Provider: Moe Blackwell Interpreting Physician: Sandy Perez MD Malter Operator: Aayush Rogers [facility] Study Info Procedure: ECHO COMPLETE CG Indications: [...] ORD ERABLES Final Result Performing Organization Address City/[facility]/ZIP Co de Phone Number [facility] [address] [phone] * TRICHOMONAS VAGINALIS COLLINS (06/28/2024 4:15 PM CDT) Trichomonas by COLLINS NEGATIVE NEGATIVE 06/29/2024 1:38 PM CDT [facility] MICRO[facility] Microbiology (Endocervix - Swab) Collection / Unknown 06/28/2024 4:15 PM CDT 06/28/2024 4:22 PM CDT Lino Lombardo MD LAB - MICROBIOLOGY TASHA FORRESTER Final Result [facility] [address] [phone] * CHLAMYDIA AND N. GONORRHOEAE COLLINS (06/28/2024 4:15 PM CDT) Chlamydia by COLLINS NEGATIVE NEGATIVE 06/29/2024 1:38 PM CDT [facility] Neisseria gonorrhoeae COLLINS NEGATIVE NEGATIVE 06/29/2024 1:38 PM CDT [facility] MICRO[facility] Microbiology (Endocervix - Swab) Collection / Unknown 06/28/2024 4:15 PM CDT 06/28/2024 4:22 PM CDT Lino Lombardo MD LAB - MICROBIOLOGY TASHA FORRESTER Final Result [facility] [address] [place] [address], [facility] [phone] * PAP IG LB+HPV APTIMA (03/01/2024 4:35 PM SALESPERSON [employer]OMEN[employer]ES) Diagnosis Comment 03/09/2024 5:09 PM SALESPERSON WOMEN'S DRESSES [facility] ([facility] Comment:NEGATIVE FOR INTRAEP ITHELIAL LESION OR MALIGNANCY. Specimen Adequacy Comment 5:09 PM SALESPERSON WOMEN'S [employer]ESSES [facility] ([facility]) Comment:Satisfactory for loida luation. No endocervical component is identified. Performed by Comment 03/09/2024 5:09 PM SALESPERSON WOMEN'S [employer]ESSES [facility] ([facility] Comment:Bharti Ocampo, Cytot echnologist (ASCP) Comment . 03/09/2024 5:09 PM SALESPERSON WOMEN'S [employer]ESSES [facility] ([facility]) Note Comment 03/09/2024 5:09 PM SALESPERSON WOMEN'S DRESSES [facility] ([facility]) Comment: The Pap smear is a screening test designed to aid in the detection of premalignant and malignant conditions of the uterine cervix. It is not a diagnostic procedure and should not be used as the sole means of detecting cervical cancer. Both false-positive and false-negative reports do occur. IGLBP CPT Code Automation Comment 03/09/2024 5:09 PM SALESPERSON WOMEN'S [employer]ESSES [facility] ([facility]) Comment: This liquid based ThinPrep(R) pap test was screened with the use of an image guided system. Human papillomavirus Aptima Negative Negative 03/09/2024 5:09 PM SALESPERSON [employer]OMEN'S [employer]ESSES [facility] ([facility]) Comment: This nucleic acid amplification test detects fourteen high-risk HPV types (16,18,31,33,35,39,45,51,52,56,58,59,66,68) without differentiation. Pathology/Cytolo gy PART OF UTERINE CERVIX / Unknown Collection / Unknown 03/01/2024 4:35 PM [employer]ESPERSON [employer]OMEN[employer]ES 03/01/2024 4:54 PM SALESPERSON WOMEN'S DRESSES [facility]ative [facility] - 03/09/2024 5:09 PM SALESPERSON [employer]OMEN'[employer]ESSES Performed at: 01 - [address] [id number] Child Daycare Worker: Kaylee Torres MD, Phone: [phone] Performed at: - [address] [id number] Child Daycare Worker: Kaylee Torres MD, Phone: [phone] Specimen Comment: Source.............Cervix Specimen Comment: LMP / Prev Treat...Carson / BX Specimen Comment: No. of containers..01 ThinPrep Vial Lino Lombardo MD LAB - PATHOLOGY/CYTOLOG Y ORDERABLES Final Result [facility]) [address] [place] [address] * HIV-1 HIV-2 ANTIBODY + HIV P24 AG PANEL (03/01/2024 4:35 PM SALESPERSON WOMEN'[employer]ESSES) Pathologist [facility] HIV1/2 Ab + P24 Ag Non Reactive Non Reactive 03/01/2024 5:51 PM SALESPERSON WOMEN'S DRESSES [facility] Blood BLOOD SPECIMEN / Unknown Venipuncture / Unknown 03/01/2024 4:35 PM SALESPERSON [employer]OMEN[employer]ES 03/01/2024 4:53 PM SALESPERSON WOMEN'S DRESSES Narrative [facility] - 03/01/2024 5:51 PM SALESPERSON WOMEN'S [employer]ESSES No Laboratory evidence of HIV infection. Lino Lombardo MD LAB - CHEMISTRY ORDERAB LES Final Result [facility] [address] [place] [address] * (ABNORMAL) PROTEIN CREATININE RATIO URINE RANDOM PNL (03/01/2024 4:35 PM SALESPERSON [employer]EN[employer]) Protein Urine 13.7(H) <11.9 mg/dL 03/01/2024 5:36 PM SALESPERSON WOMEN'[employer]ES [facility] Creatinine Urine 192.10 mg/dL 03/01/2024 5:36 PM SALESPERSON WOMEN'S DRESSES [facility] Protein/Creatin ine Ratio Urine 0.07 03/01/2024 5:36 PM SALESPERSON WOMEN'S DRESSES [facility] Urine URINE SPECIMEN OBTAINED BY CLEAN CATCH PROCEDURE / Unknown Collection / Unknown 03/01/2024 4:35 PM SALESPERSON WOMEN'[employer]ESSES 03/01/2024 4:54 PM SALESPERSON WOMEN'S DRESSES Lino Lombardo MD LAB - URINE CHEMISTRY O RDERABLES Final Result Performing Organization Address [facility] de Phone Number [facility] [address] [place], [place] [id number] * HEPATITIS C ANTIBODY (03/01/2024 4:35 PM SALESPERSON WOMEN[employer]ESSES) [facility] HCV Antibody Screen Non Reactive Non Reactive 03/01/2024 5:51 PM [facility] Blood BLOOD SPECIMEN / Unknown Venipuncture / Unknown 03/01/2024 4:35 PM [employer]ESPERSON [employer]OMEN[employer] 03/01/2024 4:53 PM SALESPERSON WOMEN'S DRESSES Narrative [facility] - 03/01/2024 5:51 PM SALESPERSON WOMEN'[employer]ESSES Non Reactive - Antibodies to Hepatitis C virus (HCV) were not detected, result does not exclude early acute HCV infection. Lino Lombardo MD LAB - CHEMISTRY ORDERAB LES Final Result Performing Organization Address [facility] de Phone Number [facility] [address] [place] [address] * (ABNORMAL) COMPREHENSIVE METABOLIC PANEL (02/28/2024 2:11 PM SALESPERSON [employer]) [facility] Glucose 114(H) 70 - 99 mg/dL 02/28/2024 2:32 PM [employer]ESPERSON WOMEN'[employer]ESSES [facility] Sodium 138 136 - 145 mmol/L 02/28/2024 2:32 PM SALESPERSON WOMEN'S [employer]ESSES [facility] Potassium 3.7 3.5 - 5.1 mmol/L 02/28/2024 2:32 PM [facility] Chloride 109(H) 98 - 107 mmol/L 02/28/2024 2:32 PM [employer]ESPERSON [employer]OMEN[employer]ES [facility] CO2 23 22 - 29 mmol/L 02/28/2024 2:32 PM SALESPERSON WOMEN'S [employer]ES [facility] Calcium 9.0 8.4 - 10.4 mg/dL 02/28/2024 2:32 PM SALESPERSON WOMEN'[employer]ES [facility] Anion Gap 6 6 - 16 mmol/L 02/28/2024 2:32 PM SALESPERSON WOMEN'[employer]ESSES [facility] BUN 8 5.3 - 18.7 mg/dL 02/28/2024 2:32 PM [facility] Creatinine 0.76 0.57 - 1.11 mg/dL 02/28/2024 2:32 PM SALESPERSON WOMEN'[employer]ESSES [facility] Alkaline Phosphatase 67 40 - 150 U/L 02/28/2024 2:32 PM SALESPERSON WOMEN'S [employer]ESSES [facility] ALT 11 0 - 55 U/L 02/28/2024 2:32 PM SALESPERSON WOMEN'S [employer]ESSES [facility] AST 15 5 - 34 U/L 02/28/2024 2:32 PM [facility] Protein Total 7.0 6.4 - 8.3 gm/dL 02/28/2024 2:32 PM [facility] Albumin 3.4 3.4 - 5.0 gm/dL 02/28/2024 2:32 PM [facility] Bilirubin Total 0.4 0.2 - 1.2 mg/dL 02/28/2024 2:32 PM [facility] eGFR by CKD-EPI >90 >=90 mL/min/1.7 3 m2 02/28/2024 2:32 PM [facility] Blood BLOOD SPECIMEN / Unknown Venipuncture / Unknown 02/28/2024 2:11 PM [employer]ERSON [employer]EN[employer] 02/28/2024 2:16 PM [employer]ERSON [employer]OMEN[employer] Robert Haddad PA-C LAB - CHEMISTRY ORDERABLE S Final Result Performing Organization Address City/State/[facility] Co de Phone Number [facility] [address] [place] [address] from Last 3 Months or Most Recently Relevant to Health Maintenance Insurance [employer] [facility] [place] [address] Care Teams Food Equipment Service Technician Relationship Specialty Start Date End Date Chuck Nelson APRN-EMILY [address] [place] [phone] PCP - General Nurse Practitioner 08/25/22
--- OUTSIDE RECORDS SUMMARY | 2024-09-25 01:44 | XMS_ITS | Clinical Summary ---
Author Organization 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 Testing performed by: [address] [address] Blood 09/24/2023 8:42 AM CDT 09/24/2023 9:06 AM CDT Sajan Pollard MD LAB BLOOD ORDERABL ES Final Result Performing Organization Address City/[facility]/ZIP Co de Phone Number [facility] [address] [facility] [place] [address] * (ABNORMAL) Hemoglobin A1c (09/24/2023 8:42 AM CDT) Hgb A1C 6.8(H) 4.0 - 5.6 % Comment:Testing performed by : [address] [address] Estimated Average Glucose 148 mg/dL KELLEN Comment: The ADA recommends reporting an estimated Average Glucose (eAG) with all Hemoglobin A1c results using the equation derived from a study of 507 normal and diabetic adults. Minority populations were underrepresented and children were not included. (Diabetes Care 31:2370-4417, 2008). The eAG is not equivalent to a fasting glucose. Testing performed by: [address] [address] Blood 09/24/2023 8:42 AM CDT 09/24/2023 9:06 AM CDT Narrative [facility] - 09/24/2023 9:40 AM CDT PRE SURGERY TESTING ONLY Sajan Pollard MD LAB BLOOD ORDERABL ES Final Result [facility] [address] [facility] [place] [address] from Last 3 Months or Most Recently Relevant to Health Maintenance Insurance [facility] CHOICE PLUS [facility] HMO/PPO Address: [address] [address] [place] [address] [employer] OPEN ACCESS [employer] OPEN ACCESS Care Teams Porcelain Technician Relationship Specialty Start Date End Date Chuck Nelson NP PCP - General 01/26/19 Christopher Nelson MD [address] [place] [address] Consulting Physician General Surgery 09/30/23
--- OUTSIDE RECORDS SUMMARY | 2024-09-25 01:44 | XMS_ITS | Continuity of Care Document ---
Author Organization [facility] Address [address] [place] [address] Phone Care Team Providers Care Cloth Folder Machine Name Role Phone Serg Caban MD Unavailable Ruchi vailable Medications Medication Instructions Dosage Effective Dates (start - stop) Status Comments triamcinolone acetonide 0.1 % Topical Cream apply by TOPICAL route 2 times every day a thin film to the affected skin areas - Active quantity in grams Procedures Procedure Date OFFICE/OUTPATIENT VISIT, [facility] OFFICE/OUTPATIENT VISIT, [facility] Advance Directives Directive Yes / No Effective Date File Name No Information Encounters Encounter Description Practice Location Reason(s) For Visit Diagnoses Date Provider Providers Copied on Encounter [facility] , [address], [place], [place], [id number], tel:[phone] [facility] No Information Marlyn Ulrich. [address], [place], [place], [address], . tel:[phone] OFFICE/OUTPATI ENT VISIT, EST [facility] , [address], [place], [place], [address], tel:[phone] [facility] exam (chief complaint) Intestinal infection due to other organism, not elsewhere classified Marlyn Ulrich. [address], [place], [place], [address], . tel:[phone] [facility] , [address], [place], [place], [address], tel:[phone] [facility] No Information Marlyn Ulrich. [address], [place], [place], [address], [place]. tel:[phone] OFFICE/OUTPATI ENT VISIT, [facility] [place] , [address], [place], [place], [address], tel:[phone] [facility] [place] back pain (chief complaint) Backache Dominiquelorikelsey Ulrich. [address], [place], [place], [address], [place]. tel:[phone] Family History Family Member Type Diagnosis Age At Onset No Information Payers Payer name Insurance type Covered libertarian ID [facility](s) [facility] [id number] Social History Type Description Quantity Date Captured [...]
--- OUTSIDE RECORDS SUMMARY | 2024-09-25 01:44 | XMS_ITS | Referral Summary ---
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 Testing performed by: [address] [address] Blood 09/24/2023 8:42 AM CDT 09/24/2023 9:06 AM CDT us Sajan Pollard MD LAB BLOOD ORDERABL ES Final Result [facility] [address] [facility] [place] [address] * (ABNORMAL) Hemoglobin A1c (09/24/2023 8:42 AM CDT) Hgb A1C 6.8(H) 4.0 - 5.6 % Comment:Testing performed by : [address] [address] Estimated Average Glucose 148 mg/dL KELLEN TARANGO Comment: The ADA recommends reporting an estimated Average Glucose (eAG) with all Hemoglobin A1c results using the equation derived from a study of 507 normal and diabetic adults. Minority populations were underrepresented and children were not included. (Diabetes Care 31:6190-3442, 2008). The eAG is not equivalent to a fasting glucose. Testing performed by: [facility], [address] [place] [address], [place]., [address] Blood 09/24/2023 8:42 AM CDT 09/24/2023 9:06 AM CDT Marquita TARANGO - 09/24/2023 9:40 AM CDT PRE SURGERY TESTING ONLY us Sajan Pollard MD LAB BLOOD ORDERABL ES Final Result [facility] [address] [facility] [place] [address] from Last 3 Months or Most Recently Relevant to Health Maintenance Insurance [facility] CHOICE PLUS [employer] OPEN ACCESS [employer] OPEN ACCESS Care Teams Education Teacher Relationship Specialty Start Date End Date Chuck Nelson NP PCP - General 01/26/19 Christopher Nelson MD [address] [place] [address] Consulting Physician General Surgery 09/30/23
--- OUTSIDE RECORDS SUMMARY | 2024-09-25 01:44 | XMS_ITS | Encounter Summary ---
Author Organization [facility] Address [address] [place] [address] Care Team Providers Care Marine Engineering Consultant Name Role Phone Chuck Nelson APPAREL EMBROIDERY DIGITIZER-SEGMENT PRODUCER Primary Care Pro vider Reason for Visit * Reason Onset Date Comments MEDICATION REFILL 05/23/2024 Encounter Details Date Type Department Care Team (Late st Contact Info) Description 05/23/2024 Refill [facility]/ EVALUATION UNIT [address] [facility] [place] [phone] Luana Plummer MD [address] [facility] [address] [place] [address] MEDICATION REFILL Social History Tobacco [...] and heating? Not hard at all 02/24/2024 [facility] [place] of Occupat ional Health - Occupational Stress [...] things needed for daily living? No 02/24/2024 [place] Depression Scale Answer Date Recorded [place] Depression Scale Total 1 03/01/2024 The thought [...] Comme nts Yes 10/19/2024 Based on last fl nstrual period of 01/13/2024 Sex and Gender Information Value Date Recorded Sex Assigned at Not on file Legal Sex Female 2:51 PM CDT Gender Identity Not on file Sexual Orientation Not on file documented as of this encounter Plan of Treatment Upcoming Encounters Date Type Department Care Team (Late st Contact Info) Description 09/26/2024 9:30 AM CDT Appointment [facility] MATERNAL/ EVALUATION UNIT [address] [place] [address] Livan Anguiano DO [address] [place] [phone] 09/26/2024 10:30 AM CDT Appointment [facility] MATERNAL/ EVALUATION UNIT [address] [place] [address] Livan Anguiano DO [address] [place] [phone] 09/26/2024 11:15 AM CDT Appointment [facility]/ EVALUATION UNIT [address] [place] [address] Latanya Villanueva MD [address] [place] [phone] 09/26/2024 11:30 AM CDT Appointment [facility] MATERNAL/ EVALUATION UNIT [address] [place] [address] Latanya Villanueva MD [address] [place] [phone] 09/27/2024 1:00 PM CDT Appointment [facility] MATERNAL/ EVALUATION UNIT [address] [place] [address] 09/27/2024 2:15 PM CDT Appointment [facility]NAL/ EVALUATION UNIT [address] [place] [address] 09/29/2024 1:00 PM CDT Appointment [facility]/ EVALUATION UN[facility] [address] [place] [address] 10/03/2024 9:30 AM CDT Appointment [facility]ALUATION UN[facility] [address] [place] [address] 10/03/2024 10:30 AM CDT Appointment [facility]/ [facility]ALUATION UN[facility] [address] [place] [address] 10/06/2024 1:00 PM CDT Appointment [facility]ATION UN[facility] [address] [place] [address] documented as of this encounter Visit Diagnoses Diagnosis Pre-existing type 2 diabetes mellitus during , antepartum (HCC) documented in this encounter Care Teams Marine Engineering Consultant Relationship Specialty Start Date End Date Chuck Nelson APRN-EMILY [address] [phone] PCP - General Nurse Practitioner 08/25/22 documented as of this encounter
--- OUTSIDE RECORDS SUMMARY | 2024-09-25 01:44 | XMS_ITS | Clinical Summary ---
Author Organization [facility] Care Team Providers Care Car Repair Supervisor Name Role Phone Unavailable Primary Care Provider Unavailabl e Social History Tobacco Use Types Packs/Day Years Used Date Smoking Tobacco: Never Assessed Comments Unknown Sex and Gender Information Value Date Recorded Sex Assigned at Not on file Legal Sex Female 12:57 PM BUSINESS CONTINUITY STRATEGY DIRECTOR Gender Identity Not on file Sexual [...]
--- OUTSIDE RECORDS SUMMARY | 2024-09-25 01:45 | XMS_ITS | Encounter Summary ---
Author Organization [facility] Address [address] [place] [address] Care Team Providers Care Boilermaker Pipe Fitter Name Role Phone Chuck Nelson INCOMING INSPECTOR-DIRECTOR WOMEN Primary Care Pro vider Reason for Visit * Reason Onset Date Comments MEDICATION REFILL 03/08/2024 Encounter Details Date Type Department Care Team (Late st Contact Info) Description 03/08/2024 Refill [facility] MATERNAL/ EVALUATION UNIT [address] [place] [id number] Eduar Hernandez MD [address] [place] [address] MEDICATION REFILL Social History Tobacco Use Types [...] and heating? Not hard at all 02/24/2024 [facility] [place] [facility] - Occupational Stress [...] things needed for daily living? No 02/24/2024 Vendor Depression Scale Answer Date Recorded Vendor Depression Scale Total 1 03/01/2024 The thought [...] any time in the past 12 m [facility], were you homeless or [...] Description 09/26/2024 9:30 AM CDT Appointment [facility] MATERNAL/ EVALUATION UNIT [address] [place] [address] Livan Anguiano DO [address] [place] [id number] 09/26/2024 10:30 AM CDT Appointment [facility] MATERNAL/ EVALUATION UNIT [address] [place] [address] Livan Anguiano DO [address] [place] [id number] 09/26/2024 11:15 AM CDT Appointment [facility] MATERNAL/ EVALUATION UNIT [address] [place] [address] Latanya Villanueva MD [address] [place] [phone] 09/26/2024 11:30 AM CDT Appointment [facility] MATERNAL/ EVALUATION UNIT [address] [place] [address] Latanya Villanueva MD [address] [place] [phone] 09/27/2024 1:00 PM CDT Appointment [facility] MATERNAL/ EVALUATION UNIT [address] [place] [address] 09/27/2024 2:15 PM CDT Appointment [facility] MATERNAL/ EVALUATION UNIT [address] [place] [address] 09/29/2024 1:00 PM CDT Appointment [facility] MATERNAL/ EVALUATION UNIT [address] [place] [address] 10/03/2024 9:30 AM CDT Appointment [facility] MATERNAL/ EVALUATION UNIT [address] [place] [address] 10/03/2024 10:30 AM CDT Appointment [facility] MATERNAL/ EVALUATION UNIT [address] [place] [address] 10/06/2024 1:00 PM CDT Appointment [facility] MATERNAL/ EVALUATION UNIT [address] [place] [id number] documented as of this encounter Visit Diagnoses Diagnosis Pre-existing type 2 diabetes mellitus during , antepartum (HCC) Type 2 diabetes mellitus with stage 1 chronic kidney disease, with long-term current use of insulin (HCC) documented in this encounter Care Teams Boilermaker Pipe Fitter Relationship Specialty Start Date End Date Chuck Nelson APRN-EMILY [address] [phone] PCP - General Nurse Practitioner 08/25/22 documented as of this encounter
--- OUTSIDE RECORDS SUMMARY | 2024-09-25 01:45 | XMS_ITS | Data Portability ---
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 Plan of Treatment Reminders Order Date Submit Date Provider Last Modified By Organization Details Last Modified Time Details Appointments None recorded. Lab test, urine 2023 024 singh In-Office Order, Internal Use Only DO Not Attach Compendium DO Not Attach Compendium, Do Not Delete/merge, [id number] 13:09:24 lipid panel, serum 2023 024 singh [facility], [address] [place] [address], [address], [place], [address], 4 11:40:06 CBC w/ auto diff 2023 024 [employer] [facility], [address] [place] [address], [address], [place], [address], 4 11:40:06 amylase + lipase, serum 2023 024 [employer] [facility], [address] [place] [address], [address], [place], [address], 4 11:40:06 Referral None recorded. Procedures None recorded. Surgeries None recorded. Imaging None recorded. Medication Orders aspirin 81 mg tablet,orly rodriguezd release 2023 [facility], [facility] [place], [address], 13:20:45 atorvastati n 20 mg tablet 2023 [facility], [address] [place] [address], [address], 13:20:49 spironolact one 100 mg tablet 2023 [facility], [address] [place] [address], [address], 4 13:20:46 nystatin 100,000 unit/gram topical powder 2023 [facility], [address] [place] [address], [address], 13:20:47 phentermine 37.5 mg tablet 2023 [facility], [facility] [place], [address], 13:20:56 escitalopra m 20 mg tablet 2023 [facility], [facility] [place], [address], 13:20:49 metformin 1,000 mg tablet 2023 024 [facility], [address] [place] [address], [address], 4 13:20:44 Mounjaro 10 mg/0.5 mL subcutaneou s pen injector 2023 024 [facility] [address], [address] [place] [address], [address], 13:20:48 fluticasone propionate 50 mcg/actuati on nasal spray,suspe nsion 2023 024 [facility], [address] [place], [address], 4 13:20:46 montelukast 10 mg tablet 2023 024 [facility], [address] [place] [address], [address], 13:20:49 phentermine 37.5 mg tablet 2023 [facility], [address] [place] [address], [id number], 18:24:29 phentermine 37.5 mg tablet 2023 [facility], [address] [place] [address], [address], 15:30:16 triamcinolo ne acetonide 0.1 % topical cream 2023 [facility], [address] [place] [address], [address], 15:30:14 Patient TargetsNo targets recorded. Patient Instructions Encounter Date Encounter Id Patient Instructions Last Modified By Organization Details Last Modified Time 09/03/2023 [id number] A healthy lifestyle: care instructions yarauz Not available 09/03/2023 13:09:22 body mass index: care instructions yarauz Not available 09/03/2023 13:09:22 learning about healthy weight yarauz Not available 09/03/2023 13:09:[address] op phentermine for now till after surgery continue present meds yarauz Not available 09/03/2023 17:56:58 11/02/2023 [id number] body mass index: care instructions yarauz Not [...] Rx yarauz Not available 11/02/2023 15:13:42 12/14/2023 [id number] When You Want to Lose Weight: Care [...] Rx yarauz Not available 12/14/2023 12:51:59 02/05/2024 [id number] learning about endovenous ablation for varicose veins [...] DO Not Attach Compendium, Do Not Delete/merge, [id number] 08/20/2023 11:59:00 08/20/19 24 08/20/2023 HbA1c (hemo globi n A1c), blood HbA1c 6.6 Not Available In-Office Order Internal Use Only DO Not Attach Compendium DO Not Attach Compendium, Do Not Delete/merge, [id number] 08/20/2023 11:58:59 09/01/19 24 09/02/2023 LIPID PANEL cholesterol, total 175 mg/dL 100-19 9 Not Available [facility] ([facility]) [address] [facility], [place], [address], 09/02/2023 11:15:38 09/01/19 24 09/02/2023 LIPID PANEL triglyceride s 199 mg/dL 0-149 above high normal Not Available [facility] ([facility]) [address] [facility] [place], [address], 09/02/2023 11:15:38 09/01/19 24 09/02/2023 LIPID PANEL HDL cholesterol 32 mg/dL >39 below low normal Not Available [facility] ([facility]) [address] [facility], [place], [address], 09/02/2023 11:15:38 09/01/19 24 09/02/2023 LIPID PANEL VLDL cholesterol amy 35 mg/dL 5-40 Not Available [facility] ([facility]) [address] [place], [address], 09/02/2023 11:15:38 09/01/19 24 09/02/2023 LIPID PANEL LDL chol calc ([facility]) 108 mg/dL 0-99 above high normal Not Available [facility] ([facility]) [address] [place], [address], 09/02/2023 11:15:38 09/01/19 24 09/02/2023 CBC WITH DIFFE RENTI AL/PL ATELE T WBC 10.4 x10e3 /uL 3.4-10 .8 Not Available [facility] ([facility]) [address] [place], [address], 09/02/2023 11:15:39 09/01/19 24 09/02/2023 CBC WITH DIFFE RENTI AL/PL ATELE T RBC 4.78 x10e6 /uL 3.77-5 .28 Not Available [facility] ([facility]) [address] [place], [address], 09/02/2023 11:15:39 09/01/19 24 09/02/2023 CBC WITH DIFFE RENTI AL/PL ATELE T hemoglobin 13.6 g/dL 11.1-1 5.9 Not Available [facility] ([facility]) [address] [facility], [place], [address], 09/02/2023 11:15:39 09/01/19 24 09/02/2023 CBC WITH DIFFE RENTI AL/PL ATELE T hematocrit 40.7 % 34.0-4 6.6 Not Available [facility] ([facility]) [address] [facility], [place], [address], 09/02/2023 11:15:39 09/01/19 24 09/02/2023 CBC WITH DIFFE RENTI AL/PL ATELE T MCV 85 fL 79-97 Not Available [facility] ([facility]) [address] [facility], [place], [address], 09/02/2023 11:15:39 09/01/19 24 09/02/2023 CBC WITH DIFFE RENTI AL/PL ATELE T MCH 28.5 pg 26.6-3 3.0 Not Available [facility] ([facility]) [address] [facility], [place], [address], 09/02/2023 11:15:39 09/01/19 24 09/02/2023 CBC WITH DIFFE RENTI AL/PL ATELE T MCHC 33.4 g/dL 31.5-3 5.7 Not Available [facility] ([facility]) [address] [place], [address], 09/02/2023 11:15:39 09/01/19 24 09/02/2023 CBC WITH DIFFE RENTI AL/PL ATELE T RDW 12.6 % 11.7-1 5.4 Not Available [facility] ([facility]) [address] [place], [address], 09/02/2023 11:15:39 09/01/19 24 09/02/2023 CBC WITH DIFFE RENTI AL/PL ATELE T platelets 404 x10e3 /uL 150-45 0 Not Available [facility] ([facility]) [address] [facility], [place], [address], 09/02/2023 11:15:39 09/01/19 24 09/02/2023 CBC WITH DIFFE RENTI AL/PL ATELE T neutrophils 60 % notest ab. Not Available [facility] ([facility]) [address] [facility], [place], [address], 09/02/2023 11:15:39 09/01/19 24 09/02/2023 CBC WITH DIFFE RENTI AL/PL ATELE T lymphs 32 % notest ab. Not Available [facility] ([facility]) [address] [facility], [place], [address], 09/02/2023 11:15:39 09/01/19 24 09/02/2023 CBC WITH DIFFE RENTI AL/PL ATELE T monocytes 6 % notest ab. Not Available [facility] ([facility]) [address] [facility], [place], [address], 09/02/2023 11:15:39 09/01/19 24 09/02/2023 CBC WITH DIFFE RENTI AL/PL ATELE T eos 1 % notest ab. Not Available [facility] ([facility]) [address] [facility], [place], [address], 09/02/2023 11:15:39 09/01/19 24 09/02/2023 CBC WITH DIFFE RENTI AL/PL ATELE T basos 0 % notest ab. Not Available [facility] ([facility]) [address] [facility], [place], [address], 09/02/2023 11:15:39 09/01/19 24 09/02/2023 CBC WITH DIFFE RENTI AL/PL ATELE T neutrophils (absolute) 6.2 x10e3 /uL 1.4-7. 0 Not Available [facility] ([facility]) [address] [facility], [place], [address], 09/02/2023 11:15:39 09/01/19 24 09/02/2023 CBC WITH DIFFE RENTI AL/PL ATELE T lymphs (absolute) 3.4 x10e3 /uL 0.7-3. 1 above high normal Not Available [facility] ([facility]) [address] [facility], [place], [address], 09/02/2023 11:15:39 09/01/19 24 09/02/2023 CBC WITH DIFFE RENTI AL/PL ATELE T monocytes(ab solute) 0.6 x10e3 /uL 0.1-0. 9 Not Available [facility] ([facility]) [address] [facility], [place], [address], 09/02/2023 11:15:39 09/01/19 24 09/02/2023 CBC WITH DIFFE RENTI AL/PL ATELE T eos (absolute) 0.1 x10e3 /uL 0.0-0. 4 Not Available [facility] ([facility]) [address] [facility], [place], [address], 09/02/2023 11:15:39 09/01/19 24 09/02/2023 CBC WITH DIFFE RENTI AL/PL ATELE T baso (absolute) 0.0 x10e3 /uL 0.0-0. 2 Not Available [facility] ([facility]) [address] [place], [address], 09/02/2023 11:15:39 09/01/19 24 09/02/2023 CBC WITH DIFFE RENTI AL/PL ATELE T immature granulocytes 1 % notest ab. Not Available [facility] ([facility]) [address] [facility], [place], [address], 09/02/2023 11:15:39 09/01/19 24 09/02/2023 CBC WITH DIFFE RENTI AL/PL ATELE T immature grans (abs) 0.1 x10e3 /uL 0.0-0. 1 Not Available [facility] ([facility]) [address] [facility], [place], [address], 09/02/2023 11:15:39 09/01/19 24 09/02/2023 PRESTON+L IPASE amylase 35 U/L 31-110 Not Available [facility] ([facility]) [address] [facility], [place], [address], 09/02/2023 11:15:40 09/01/19 24 09/02/2023 PRESTON+L IPASE lipase 29 U/L 14-72 Not Available [facility] ([facility]) [address] [place], [address], 09/02/2023 11:15:40 09/03/19 24 09/03/2023 pregn eddie test, urine HCG negati ve Not Available In-Office Order Internal Use Only DO Not Attach Compendium DO Not Attach Compendium, Do Not Delete/merge, [id number] 09/03/2023 12:24:53 Result Notes None recorded. Problems Name Problem SNOMED Code Status Onset Date Resolution Date Notes Provider Name and Address Organization Details Recorded Time Multiple environm ental allergie s Active 2017 BRIGIDO Wolf, [place] - [facility] 2 12:48:51 Hypergly cemia 21531531 Completed 201707/02/2018 Oscar Chavarria null, [place] - [facility] 9 11:03:02 Psoriasi s of scalp 952080089 Completed 201702/04/2019 Suzie Arevalo RN [place], [place] - [facility] 9 11:06:18 Uncontro lled type 2 diabetes mellitus 605108728 Active 2017 BRIGIDO [place], [place] - [facility] 2 12:48:41 Mixed hyperlip idemia 633957167 Active 2018 Suzie Areval[place] RN [place] - [facility] 2 12:49:13 Body mass index 40+ - severely obese 405560737 Completed 201811/01/2021 Removal Reason: better [facility] Attn: Accountin g,[address] [facility], [place], [address], [place] - [facility] 3 13:06:10 Generali zed anxiety disorder 27870422 Active 2019 Chuck Craig [facility] Attn: Accountin g,[address] [facility], [place], [address], [place] - [facility] 2 11:21:19 Vitamin D deficien cy 95106482 Active 2021 Chuck Craig [facility] Attn: Accountin g,[address] [facility], [place], [address], [place] - [facility] 2 11:21:19 Body mass index 40+ - severely obese 159678792 Completed 202105/06/2022 Chuck Craig [facility] Attn: Accountin g,[address] [facility], [place], [address], [place] - [facility] 3 13:06:10 Hyperpig mentatio n of skin 10044803 Active 2021 Chuck Craig [facility] Attn: Accountin g,[address] [place], [address], [place] - [facility] 3 13:05:54 Allergy to fish 869352322 Active 2021 Chuck Craig [facility] Attn: Accountin g,[address] [place], [address], [place] - [facility] 3 13:05:54 Body mass index 30+ - obesity 403777147 Active 2021 Chuck Craig [facility] Attn: Accountin g,[address] [place], [address], [place] - [facility] 3 13:05:54 Multiple skin tags on neck 617011193 Completed 202205/06/2022 Suzie Areval[place] RN [place] [facility] 3 12:10:07 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 523385191 [facility] 20[facility] Attn: Accountin g,[address], [place], [address], [place] - [facility] 3 13:05:54 Obesity 846236631 Active 2022 [facility] Attn: Accountin g,[address], [place], [address], [place] - [facility] 3 12:14:20 Excess pannicul us of abdomen 60598724724 01 Active 2022 [facility] Attn: Accountin g,[address], [place], [address], [place] [facility] 3 12:14:13 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 Active 2022 [facility] Attn: Accountin g,[address], [place], [address], [place] [facility] 4 15:11:19 Steatoti c liver disease 403529044 Active 2022 [facility] Attn: Accountin g,[address], [place], [address], [place] - [facility] 4 15:11:19 Abnormal liver function 15302404 Completed 202309/03/2023 Removal Reason: resolved for now LAURA Hancock Attn: Accountin g,[address], [place], [address], [place] - [facility] 4 13:04:06 Inguinal lymphade nopathy 659244078 Active 2023 Chuck Craig [facility] Attn: Nadege aponte,[address] [facility], [place], [address], [place] - [facility] 4 15:11:19 Cholelit hiasis without obstruct ion 69981173 Active 2023 Chuck Craig [facility] Attn: Nadege aponte,[address] [facility], [place], [address], [place] [facility] 4 15:11:19 Cystic acne 07214822 Active 2023 Chuck Craig [facility] Attn: Nadege aponte,[address] [facility], [place], [address], [place] [facility] 4 15:11:19 Right upper quadrant pain 667398666 Active 2023 Chuck Craig [facility] Attn: Nadege aponte,[address] [facility], [place], [address], [place] [facility] 4 12:47:31 Anxiety 90510078 Active 2023 Chuck Craig [facility] Attn: Nadege aponte,[address] [facility], [place], [address], [place] [facility] 4 13:13:00 Impaired glucose toleranc e 3705839 Completed 10/17/2016 MCKAY H[place] [facility] 7 16:17:03 Acute pharyngi tis 175428217 Completed 06/08/2015 Suzie Areval[place] [facility] 6 12:45:07 Morbid obesity 945476055 Completed 02/04/2019 Suzie [place] [facility] 9 11:06:43 Allergic rhinitis 77800941 Completed 03/05/2018 Chuck Craig [facility] Attn: Nadege aponte,[address] 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 Procedures Surgical History Date Name Laterality Status Provider Name and Address Organization Details Recorded Time 05/02/19 23 Skin Tag Removal completed LAURA Hancock Attn: Accounting,[address] [place], [address], [facility] - SI 05/02/2022 16:42:03 04/25/19 23 Date of Last Pap Smear completed Suzie Arevalo RN [place] - [facility] 06/06/2022 12:58:35 04/20/19 15 Tonsillectomy completed Suzie Arevalo RN [place] - [facility] 04/06/2015 11:08:40 Imaging Results None recorded. Procedure Notes None recorded. Medical Equipment None Reported. Allergies Allergen ID Allergen Name Allergen Category Reaction Reaction Severity Criticality Documentation Date Start Date Code Code System Note Provider Name and Address Organization Details Recorded Time 106137 lisinopri l medicatio n flushing moderate Not available 09/16/20192019 57022 RxNorm Chuck Craig, [facility]- Attn: Nadege aponte,[address], [place], [address], [facility] - [facility] 0 12:40:39 Medications Name [...] Not Available Not Available FreeStyle Herrera 2 [place] 09/06 completed Not Available Not Available Not Available Trulicity 3 mg/0.5 mL subcutane ous pen injector INJECT 1 SYRINGE SUBCUTAN EOUSLY ONCE A WEEK 04/23 completed Not Available Not Available Not Available Ozempic 1 mg/dose (4 mg/3 mL) subcutane ous pen injector 08/08 completed [facility] prior auth form Not Available Not [...] Last Updated DateTime 160.02 cm 37.2 kg/m2 91064.4 g 97.6 [degF] 85 /min 116 mm[Hg] 75 mm[Hg] Suzie Arevalo RN [facility] 4 12:45:12 Date Recorded Body height Body mass index (BMI) Body weight Heart rate Body temperature Systolic blood pressure Diastolic blood pressure Provider Name and Address Organization Details Last Updated DateTime 4 160.02 cm 36.4 kg/m2 83984.2 4 g 79 /min 98 [degF] 112 mm[Hg] 75 mm[Hg] Suzie Arevalo RN [facility] 4 14:58:01 Date Recorded Body height Body mass index (BMI) Body weight Heart rate Body temperature Systolic blood pressure Diastolic blood pressure Provider Name and Address Organization Details Last Updated DateTime 4 160.02 cm 35.1 kg/m2 73607.2 9 g 74 /min 97.6 [degF] 101 mm[Hg] 69 mm[Hg] Suzie Arevalo RN [facility] 4 12:36:24 Date Recorded Body height Body mass index (BMI) Body weight Provider Name and Address Organization Details Last Updated DateTime 02/05/2024 160.02 cm 34.7 kg/m2 86383.1 g Suzie Arevalo RN [facility] 02/05/2024 12:46:27 Social History Question Answer Notes LastModified by Organizat ion Details LastModified Time Tobacco Smoking Status Never Smoker [facility] 11:08:40 Do You Have An Advance [...] Or Recreational Drugs Have You Used? Krishnadebbie [email or web address] Information not available 10/29/2016 Education 2 Year [...] available 02/04/2019 Are you currently employed? Yes [facility] Information not available 11/30/2020 Are you able [...] anxious, or unable to sleep at night)? [id number] Information not available 02/06/2022 Family History Relationship [...] virus, quadrivalent, PF 9 completed Not Available [facility] 05/07/2019 02:39:21 Influenza, split virus, quadrivalent, PF 5 completed Suzie Arevalo RN null, [facility] 04/06/2015 11:08:40 Tdap 5 completed Yasmeen Ny null, [facility] 06/08/2015 11:20:28 Influenza, split virus, quadrivalent, preservative 6 completed Suzie Arevalo RN null, [facility] 02/08/2016 13:10:18 HPV9 3 completed Chuck Craig [facility] Attn: Accounting,[address] [place], [address], [facility] 03/09/2023 16:14:18 HPV9 4 completed Suzie Arevalo RN null, [facility] 04/21/2023 15:54:10 HPV9 4 completed Chuck Craig [facility] Attn: Accounting,[address] [place], [address], [facility] 09/03/2023 17:55:54 Influenza, split virus, quadrivalent, preservative 7 completed Suzie Arevalo RN null, [facility] 01/02/2017 13:24:13 Past Encounters Encounter ID Performer Location Encounter Start Date Encounter Closed Date Diagnosis/Indication Diagnosis SNOMED-CT Code Diagnosis ICD10 Code Diagnosis Note [id number] Chuck Craig [facility] [address] [place] [address] 04/06/2015 10:47:18 04/10/2015 12:01:25 Acute pharyngitis 677258067 J02.9 [id number] Chuck Craig [facility] [address] [place] [address] 06/08/2015 11:16:42 06/12/2015 13:29:41 Adult health examination 406666518 Z00.00 Morbid obesity 840931744 E66.01 Allergic rhinitis 172201 04 J30.9 Venous varices 922495267 I83.92 [id number] [place] [address] [place] [address] 4 06/11/2015 10:14:51 06/12/2015 13:43:16 Morbid obesity 413579957 E66.01 [id number] [place] [address] [place] [address] 4 08/03/2015 10:08:39 08/06/2015 17:57:10 Morbid obesity 550772626 E66.01 13# weight loss in 2 months Diet, weight loss and exercise Monitor for adverse side effects Hyperlipidemia 15241181 E78.5 Discussed test results Increase exercise to 50-60 minutes daily 5-6 times per week [id number] [place] [address] [place] [address] 4 10/08/2015 12:43:54 10/16/2015 13:10:23 Morbid obesity 990394183 E66.01 7# weight gain in 2 months Diet, weight loss and exercise Monitor for adverse side effects Backache 106103000 M54.9 Hyperlipidemia 60452261 E78.5 Discussed test results Increase exercise to 50-60 minutes daily 5-6 times per week [id number] Salas Velasquez MD [place] [address] [place] [address] 4 11/28/2015 12:37:02 12/10/2015 11:50:21 Morbid obesity 189520005 E66.01 will give Rx for 1 more month if no weight loss will stop Diet, weight loss and exercise Monitor for adverse side effects Chronic dermatitis 20494 007 L30.9 Asteatosis cutis 7411439 0 L85.3 Backache 773039600 M54.9 [id number] [facility] [address] [place] [address] 4 02/08/2016 12:33:25 02/18/2016 13:08:13 Morbid obesity 250709641 E66.01 will give Rx for 1 more month if no weight loss will stop Diet, weight loss and exercise Monitor for adverse side effects Chronic dermatitis 89005 007 L30.9 keep appointmen t with Derm Hyperlipidemia 38002933 E78.5 Increase exercise to 50-60 minutes daily 5-6 times per week Asteatosis cutis 0573862 0 L85.3 Cetaphil products Backache 381185144 M54.9 get xrays done DAIN/stret lisandra/exer cise/weigh t loss Rhinitis 72960487 J00 use Zyrtec daily [id number] [facility] [address] 4 02/11/2016 12:20:28 02/18/2016 13:29:38 Hyperlipidemia 20430906 E78.5 Increase exercise to 50-60 minutes daily 5-6 times per week [id number] [facility] [address] [place] [address] 4 02/20/2016 16:54:19 02/29/2016 12:13:11 Eruption 019194313 R21 OTC ZYRTEC 10mg once daily allergen panel + food mix (seafoods) , environmen sven allergens, perennial grass Multiple environmental allergies 219600885 T78.49XD Allergy to seafood 37312 001 Z91.998 [id number] [facility] [address] [place] [address] 4 03/12/2016 11:55:30 03/19/2016 11:09:10 Morbid obesity 150105802 E66.01 6 pound weight loss since a month ago Diet, weight loss and exercise Monitor for adverse side effects Asteatosis cutis 7046665 0 L85.3 Cetaphil products Eruption 305270093 R21 OTC ZYRTEC 10mg once daily allergen panel + food mix (seafoods) , environmen sven allergens, perennial grass Prediabetes 139878885 R7 3.03 Hyperlipidemia 20436447 E78.5 Increase exercise to 50-60 minutes daily 5-6 times per week [id number] Salas Velasquez MD [facility] [address], [place] [address] 04/09/2016 12:13:53 04/16/2016 17:41:34 Morbid obesity 728713450 E66.01 6 pound 1/4 ounce weight loss since a month ago Diet, weight loss and exercise Monitor for adverse side effects As its the Holidays and patient is not having any side effects will give Rx this month--the n 3 months off Prediabetes 673950387 R7 3.03 [id number] Salas Velasquez MD [facility] [address], [place] [address] 04/18/2016 10:31:37 04/24/2016 10:54:52 Acute vaginitis 17625242 N76.0 Increase Doxyciclin e 100mg once daily to twice daily for the next seven days to cover UTI then return to once daily dosing Dysuria 74811799 R30.0 Prediabetes 923676811 R7 3.03 [id number] Salas Velasquez MD [facility] [facility] [place] [address] [place] [address] 4 06/09/2016 10:56:27 06/17/2016 10:08:56 Acute conjunctivitis 61155078 H10.31 [id number] Salas Velasquez MD [facility] [place] [address] [place] [address] 4 06/30/2016 12:01:19 07/02/2016 17:53:15 Chronic dermatitis 02792744 L30.9 Seen by derm 02/2016 given about same treatment she had received from this office. SHe wishes to continue treatment. Requesting refills. Asteatosis cutis 4235814 0 L85.3 Cetaphil products Morbid obesity 098195818 E66.01 No weight loss since last visit Diet, weight loss and exercise Backache 008552387 M54.9 Xray shows DJD/stretc gus/exerc ise/weight loss Pain in right knee 75378 76952 87042 M25.561 will send for PT Psoriasis of scalp 82035 8008 L40.9 [id number] Chuck Craig [facility] [address] [place] [address] 4 08/20/2016 12:05:58 08/27/2016 17:50:49 Morbid obesity 325075905 E66.01 11 pound weight loss since last visit Diet, weight loss and exercise Hyperlipidemia 46982214 E78.5 Increase exercise to 50-60 minutes daily 5-6 times per week Chronic dermatitis 62792 007 L30.9 Seen by derm 02/2016 given about same treatment she had received from this office. SHe wishes to continue treatment. Requesting refills. Impaired g lucose tolerance 3669756 R73.03 Prediabetes 257227826 R7 3.03 Increased blood pressure 33415915 R03.0 monitor blood pressure Have RN check b/p in 1 month avoid salt weight loss encouraged Allergic rhinitis 428036 04 J30.1 zyrtec samples Pain in right knee 06481 31003 09459 M25.561 Patient to continue PT exercises at home Patient continues to have symptoms despite NSAIDS/PT for 3 1/2 months--kn ee xray essentiall y normal showed minor swelling Take Meloxicam daily for the next couple of months for knee inflammati on [id number] Salas Velasquez MD [facility] [place] [address] [place] [address] 10/17/2016 15:58:37 10/21/2016 16:47:09 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 surgical referral Lipoma of upper arm 1889 25455 D17.21 D17.22 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 57727672 I83.10 weight loss elevation of legs support hose referral to surgeon for sclerother apy prn [id number] Eliseo Vigil MD [facility] [address] [place] [address] 10/29/2016 10:37:36 11/04/2016 13:11:34 Lipoma of skin and subcutaneous tissue (excluding face) 633711366 D17.30 [id number] [facility] [address], [place] [address] 01/02/2017 12:13:06 01/10/2017 22:13:03 Morbid obesity 296540799 E66.01 5bpound weight gain since last visit Diet, weight loss and exercise Hyperlipidemia 64400077 E78.5 Increase exercise to 50-60 minutes daily 5-6 times per week Try [place] 3 FA Chronic dermatitis 22091 007 L30.9 Seen by derm 02/2016 given about same treatment she had received from this office. SHe wishes to continue treatment. Requesting refills. Prediabetes 328805767 R7 3.03 will repeat labs at next visit Allergic rhinitis 924787 04 J30.1 Cystic acne 74926174 L70 .0 drink a lot of water with this medication and daily banana Edema of l ower extremity 993633683 R60.0 recommend compressio n hose [id number] Salas Velasquez MD [facility] [place] [address], [place] [address] 03/05/2018 11:48:06 03/16/2018 13:07:08 Adult health examination 871856899 Z00.00 Upper resp iratory infection 74889324 J06.9 Venous varices 703109795 I83.92 Morbid obesity 612827109 E66.01 6# weight loss since last visit Diet, weight loss and exercise Chronic dermatitis 20917 007 L30.9 Seen by derm 02/2016 given about same treatment she had received from this office. SHe wishes to continue treatment. Requesting refills. Dyslipidemia 971801261 E 78.5 Psoriasis of scalp 17360 8008 L40.9 Hyperglycemia 35744370 R 73.9 accu check random 240 fasting Acute fron sven sinusitis 96613758 J01.10 Multiple environmental allergies 665758934 T78.49XD Chronic back pain 652726 002 G89.29 Headache 25441882 R51 suspect migraines Uncontroll ed type 2 diabetes mellitus 302402509 E11.65 [id number] Salas Velasquez MD [facility] [place] [address], [place] [address] 07/02/2018 10:45:47 07/02/2018 17:36:52 Uncontrolled type 2 diabetes mellitus 130771787 E11.65 Acute fron sven sinusitis 19183914 J01.10 Multiple environmental allergies 041849379 T78.49XD continue otc Psoriasis of scalp 74740 8008 L40.9 Chronic dermatitis 50622 007 L30.9 Seen by derm 02/2016 given about same treatment she had received from this office. SHe wishes to continue treatment. Requesting refills. Prehypertension 98496966 9 R03.0 reduce salt in your diet 50-60 minutes of aerobic physical activity 5-6 time per week lose weight 5-20% of current body weight if B/P remains elevated will start B/P meds Body mass index 40+ - severely obese 965165927 Z68.41 bmi 42 Mixed hyperlipidemia 267 479358 E78.2 Avoid all breads, potatoes, cereal, pasta, rice, margarine, refined sugars, milk yogurt, ice cream, juices, soda (including diet), beer, and manmade or manufactur ed desserts. Enjoy steak, fish, chicken (no skin), pork, butter, vegetables , beans, nuts, whole eggs, cheese (low fat or skim), cream in your coffee. Depression screening 171 693516 Z13.31 negative [id number] Salas Velasquez MD [facility] [place] [address] [place] [address] 4 01/13/2019 12:45:24 01/13/2019 18:11:52 Acute frontal sinusitis 12587953 J01.10 Cough 34349465 R05 Multiple environmental allergies 821986548 T78.49XD get otc antihistam ine and start [id number] Salas Velasquez MD [facility] [place] [address] [place] [address] 4 02/04/2019 10:55:51 02/04/2019 17:01:53 Uncontrolled type 2 diabetes mellitus 046367863 E11.65 uncontroll edfasting 624BX4L 9.6will continue Metformin bid started at [place] e/r Mixed hyperlipidemia 267 409705 E78.2 Avoid all breads, potatoes, cereal, pasta, rice, margarine, refined sugars, milk yogurt, ice cream, juices, soda (including diet), beer, and manmade or manufactur ed desserts. Enjoy steak, fish, chicken (no skin), pork, butter, vegetables , beans, nuts, whole eggs, cheese (low fat or skim), cream in your coffee. Multiple environmental allergies 471839297 T78.49XD continue otc Chronic dermatitis 47582 007 L30.9 Seen by derm 02/2016 given about same treatment she had received from this office. SHe wishes to continue treatment. Requesting refills. Prehypertension 43399702 9 R03.0 reduce salt in your diet 50-60 minutes of aerobic physical activity 5-6 time per week lose weight 5-20% of current body weight will start Lisinopril 2.5mg for kidney protection today Body mass index 30+ - obesity 301593222 Z68.39 BMI 39Healthy body weight 105-135 Administra tion of influenza vaccine 35731157 Z23 [id number] Salas Velasquez MD [facility] [place] [address] [place] [address] 08/17/2019 11:30:26 08/18/2019 11:27:38 Uncontrolled type 2 diabetes mellitus 888926365 E11.65 uncontroll edshe forgets to take evening ebjtSO5X 8.3will change Metformin 1000mg bid to Metformin ER 1000mg (2) Mixed hyperlipidemia 267 871294 E78.2 Avoid all breads, potatoes, cereal, pasta, rice, margarine, refined sugars, milk yogurt, ice cream, juices, soda (including diet), beer, and manmade or manufactur ed desserts. Enjoy steak, fish, chicken (no skin), pork, butter, vegetables , beans, nuts, whole eggs, cheese (low fat or skim), cream in your coffee. Multiple environmental allergies 877681468 T78.49XD continue otc Body mass index 30+ - obesity 000729522 Z68.39 BMI 39Healthy body weight 105-135 Chronic dermatitis 35411 007 L30.9 Seen by derm 02/2016 given about same treatment she had received from this office. SHe wishes to continue treatment. Requesting refills. Prehypertension 83167477 9 R03.0 reduce salt in your diet 50-60 minutes of aerobic physical activity 5-6 time per week lose weight 5-20% of current body weight will start Lisinopril 2.5mg for kidney protection today Headache 40783278 R51 suspect migrainesC T of Head 01/2019 normal Anxiety 94075799 F41.9 psychother apist listauto relaxation exerciseRX for prn use Acute fron sven sinusitis 31273953 J01.10 [id number] Salas Velasquez MD [facility] [place] [address] [place] [address] 4 09/16/2019 12:28:24 09/19/2019 10:06:07 Generalized anxiety disorder 05104862 F41.1 recommend psychother apist visits-pt will check with her 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 Body mass index 40+ - severely obese 147126712 Z68.41 bmi 42 [id number] Salas Velasquez MD [facility] [place] [address] [place] [address] 4 10/14/2019 10:34:20 10/17/2019 06:38:07 Generalized anxiety disorder 71869346 F41.1 recommend psychother apist visits-pt will check with her 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pati ent fees better agrees to increasing dose of Escitalopr am 10mg to 20mg elliottysluke is aware will not refill klonopin for ongoing use Body mass index 40+ - severely obese 590248606 Z68.41 bmi 42 [id number] Salas Velasquez MD [facility] [place] [address] [place] [address] 4 10/24/2019 12:45:53 10/25/2019 06:47:00 Acute sinusitis 39248764 J01.90 [id number] Salas Velasquez MD [facility] [place] [address] [place] [address] 4 11/18/2019 14:10:09 11/21/2019 07:27:44 Uncontrolled type 2 diabetes mellitus 865733838 E11.65 uncontroll edshe forgets to take evening doseLast HA1C 8.3will continue Metformin ER 1000mg (2) Prehypertension 50606683 9 R03.0 reduce salt in your diet 50-60 minutes of aerobic physical activity 5-6 time per week lose weight 5-20% of current body weight patient stooped Lisinopril 2.5mg for kidney protection about a month ago-had reaction Mixed hyperlipidemia 267 856157 E78.2 Avoid all breads, potatoes, cereal, pasta, rice, margarine, refined sugars, milk yogurt, ice cream, juices, soda (including diet), beer, and manmade or manufactur ed desserts. Enjoy steak, fish, chicken (no skin), pork, butter, vegetables , beans, nuts, whole eggs, cheese (low fat or skim), cream in your coffee. Multiple environmental allergies 569449861 T78.49XD continue otc Body mass index 30+ - obesity 154045265 Z68.39 BMI 39Healthy body weight 105-135 Chronic dermatitis 76369 007 L30.9 Seen by derm 02/2016 given about same treatment she had received from this office. SHe wishes to continue treatment. Still has at home aware not to use in large quantities Headache 89305790 R51 suspect migrainesC T of Head 01/2019 normal Generalize d anxiety disorder 66944399 F41.1 recommend psychother apist visits-pt will check with her job on thisPatien t stopped both Escitalopr am and Clonazepam two weeks ago when she found out she was 7 [id number] Salas Velasquez MD [facility] [place] [address] [place] [address] 06/06/2020 12:16:58 06/07/2020 14:23:37 Mixed hyperlipidemia 906504736 E78.2 Avoid all breads, potatoes, cereal, pasta, rice, margarine, refined sugars, milk yogurt, ice cream, juices, soda (including diet), beer, and manmade or manufactur ed desserts. Enjoy steak, fish, chicken (no skin), pork, butter, vegetables , beans, nuts, whole eggs, cheese (low fat or skim), cream in your coffee. Body mass index 40+ - severely obese 352269237 Z68.41 bmi 42 Prehypertension 06470602 9 R03.0 reduce salt in your diet 50-60 minutes of aerobic physical activity 5-6 time per week lose weight 5-20% of current body weight Chronic dermatitis 72273 007 L30.9 Seen by derm 02/2016 given about same treatment she had received from this office. SHe wishes to continue treatment. Has refills. Stable at present time. Uncontroll ed type 2 diabetes mellitus 349767042 E11.65 uncontroll edshe forgets to take evening doseLast HA1C 8.3will restart Metformin ER 1000mg (2) [id number] Salas Velasquez MD [facility] [place] [address], [place] [address] 07/06/2020 15:11:23 07/09/2020 14:05:28 Uncontrolled type 2 diabetes mellitus 807429107 E11.65 uncontroll edshe forgets to take evening doseLast HA1C 8.3will restart Metformin ER 1000mg (2) Mixed hyperlipidemia 267 305596 E78.2 Avoid all breads, potatoes, cereal, pasta, rice, margarine, refined sugars, milk yogurt, ice cream, juices, soda (including diet), beer, and manmade or manufactur ed desserts. Enjoy steak, fish, chicken (no skin), pork, butter, vegetables , beans, nuts, whole eggs, cheese (low fat or skim), cream in your coffee. [id number] Salas Velasquez MD [facility] [place] [address], [place] [address] 08/31/2020 16:16:37 09/03/2020 16:30:16 Uncontrolled type 2 diabetes mellitus 039750305 E11.65 uncontroll ed she forgets to take evening dose Last HA1C 6.4 on 07/06/2020 will continue Metformin ER 1000mg (2) will add Tradjenta 5mg daily pt is not BF Mixed hyperlipidemia 267 204522 E78.2 07/06/2020 [id number] Trig 441 HDL 32 LDL 150 Avoid all breads, potatoes, cereal, pasta, rice, margarine, refined sugars, milk yogurt, ice cream, juices, soda (including diet), beer, and manmade or manufactur ed desserts. Enjoy steak, fish, chicken (no skin), pork, butter, vegetables , beans, nuts, whole eggs, cheese (low fat or skim), cream in your coffee. Body mass index 40+ - severely obese 936942625 Z68.41 bmi 42 Prehypertension 12123397 9 R03.0 reduce salt in your diet 50-60 minutes of aerobic physical activity 5-6 time per week lose weight 5-20% of current body weight Chronic dermatitis 19014 007 L30.9 Seen by derm 02/2016 given about same treatment she had received from this office. SHe wishes to continue treatment. Has refills. Stable at present time. 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 [id number] Salas Velasquez MD [facility] [address] [place] [address] 11/30/2020 12:06:22 12/05/2020 06:56:56 Uncontrolled type 2 diabetes mellitus 625659306 E11.65 she forgets to take evening dose Last HA1C 6.4 on 07/06/2020 will continue Metformin ER 1000mg (2)Jardian ce was not coveredPat ient has been using Humulin N NPH 25 units BIDBS are better 110-160 range Mixed hyperlipidemia 267 473538 E78.2 07/06/2020 [id number] Trig 441 HDL 32 LDL 150 Avoid all breads, potatoes, cereal, pasta, rice, margarine, refined sugars, milk yogurt, ice cream, juices, soda (including diet), beer, and manmade or manufactur ed desserts. Enjoy steak, fish, chicken (no skin), pork, butter, vegetables , beans, nuts, whole eggs, cheese (low fat or skim), cream in your coffee. Body mass index 40+ - severely obese 936806645 Z68.41 bmi 42 Prehypertension 10009476 9 R03.0 reduce salt in your diet 50-60 minutes of aerobic physical activity 5-6 time per week lose weight 5-20% of current body weight Chronic dermatitis 58536 007 L30.9 Seen by derm 02/2016 given about same treatment she had received from this office. SHe wishes to continue treatment. Has refills. Stable at present time. Depression screening 171 Z13.31 positive patient on sertraine 50mg daily started per her OB/gynneed s refills of sertraline from this office as she no longer seeing OB Anxiety 51169502 F41.9 psychother apist listauto relaxation exerciseRX for prn use Psoriasis of scalp 92279 8008 L40.9 [id number] Salas Velasquez MD [facility] [place] [address] [place] [address] 12/17/2020 12:10:32 12/18/2020 06:02:04 COVID-19 949039267 U07.1 [id number] Salas Velasquez MD [facility] [place] [address] [place] [address] 07/25/2021 16:02:46 07/26/2021 15:40:58 Uncontrolled type 2 diabetes mellitus 821334758 E11.65 HA1C 8.5 eeypkTY3C 6.4 on 07/06/2020 will continue Metformin 1000mg 1 po bidwill add Ozempic 0.25mgMoni tor bs readings before and after meals (2Hrs) keep log Mixed hyperlipidemia 267 565075 E78.2 07/06/2020 [id number] Trig 441 HDL 32 LDL 150 Avoid all breads, potatoes, cereal, pasta, rice, margarine, refined sugars, milk yogurt, ice cream, juices, soda (including diet), beer, and manmade or manufactur ed desserts. Enjoy steak, fish, chicken (no skin), pork, butter, vegetables , beans, nuts, whole eggs, cheese (low fat or skim), cream in your coffee. Generalize d anxiety disorder 17201984 F41.1 ANDIE-7 Will re-start treatmentE scitalopra m 20mg dailyKlono pin for severe anxiety symptomsre commend psychother apist visits-amy l with problems or rthoughts of harming self Multiple environmental allergies 580644778 T78.49XD continue otc antihistam ine Body mass index 40+ - severely obese 489261089 Z68.41 bmi 37.2 Healthy Weight: 5'3= 107-140 lbs Chronic dermatitis 10072 007 L30.9 Seen by derm 02/2016 given about same treatment she had received from this office. SHe wishes to continue treatment. Depression screening 171 211518 Z13.31 negative Hyperpigme ntation of skin 53239630 L81.9 Furuncle of buttock 1243 0003 L02.32 [id number] Salas Velasquez MD [facility] [place] [address] [place] [address] 07/26/2021 10:25:41 08/12/2021 16:22:57 Uncontrolled type 2 diabetes mellitus 041774308 E11.65 HA1C 8.5 yrxxdWA3N 6.4 on 07/06/2020 will continue Metformin 1000mg 1 po bidwill add Ozempic 0.25mgMoni tor bs readings before and after meals (2Hrs) keep log Mixed hyperlipidemia 267 741814 E78.2 07/06/2020 [id number] Trig 441 HDL 32 LDL 150 Avoid all breads, potatoes, cereal, pasta, rice, margarine, refined sugars, milk yogurt, ice cream, juices, soda (including diet), beer, and manmade or manufactur ed desserts. Enjoy steak, fish, chicken (no skin), pork, butter, vegetables , beans, nuts, whole eggs, cheese (low fat or skim), cream in your coffee. [id number] Salas Velasquez MD [facility] [place] [address] [place] [address] 09/06/2021 12:40:16 09/09/2021 14:59:34 Generalized anxiety disorder 46355406 F41.1 ANDIE-7 --07/20 1 betterWihui continue treatmentE scitalopra m 20mg dailyKlono pin for severe anxiety symptomsre commend psychother apist visits-amy l with problems or rthoughts of harming self Mixed hyperlipidemia 267 443262 E78.2 07/06/2020 [id number] Trig 441 HDL 32 LDL 150 07/26/2021 [...] try Atorvastat in 20mg daily and LSM [id number] Salas Velaqsuez MD [facility] [place] [address] [place] [address] 4 11/01/2021 12:33:34 11/04/2021 11:16:46 Uncontrolled type 2 diabetes mellitus 768804666 E11.65 HA1C 7.HA1C 6.4 on 07/06/2020 will continue Metformin 1000mg 1 po bidwill continue Ozempic 0.25mgMoni tor bs readings before and after meals (2Hrs) keep log Mixed hyperlipidemia 267 960530 E78.2 07/06/2020 [id number] Trig 441 HDL 32 LDL 150 07/26/2021 [...] daily and LSM Generalize d anxiety disorder 25841537 F41.1 ANDIE-7 --/ 1 betterWill continue treatmentE scitalopra m 20mg dailyKlono pin for severe anxiety symptomsre commend psychother apist visits-amy l with problems or thoughts of harming self Multiple environmental allergies 603094853 T78.49XD continue otc antihistam ine Body mass index 40+ - severely obese 547798277 Z68.41 bmi 37.2 Healthy Weight: 5'3= 107-140 lbs Chronic dermatitis 77940 007 L30.9 Seen by derm 02/2016 given about same treatment she had received from this office. SHe wishes to continue treatment. Hyperpigme ntation of skin 72724945 L81.9 continue trilumause daily sunscreen Furuncle of buttock 1243 0003 L02.32 Depression screening 171 444859 Z13.31 negative Cystic acne 91422129 L70 .0 drink a lot of water with this medication and daily banana Fatigue 64046186 R53.83 [id number] Salas Velasquez MD [facility] [place] [address] [place] [address] 02/06/2022 10:29:05 02/10/2022 14:44:03 Mixed hyperlipidemia 805741388 E78.2 07/06/2020 [id number] Trig 441 HDL 32 LDL 150 07/26/2021 [...] LSM Uncontroll ed type 2 diabetes mellitus 182785619 E11.65 HA1C 7.1HA1C 6.4 on 07/06/2020 will continue Metformin 1000mg 1 po bidIncreas e Ozempic 1mg once weeklyMoni tor bs readings before and after meals (2Hrs) keep log Generalize d anxiety disorder 80100660 F41.1 Will continue treatmentE scitalopra m 20mg dailyKlono pin for severe anxiety symptomsre commend psychother apist visits-amy l with problems or thoughts of harming self Multiple environmental allergies 265521792 T78.49XD igE 645 plus multiple specific environmen sven allergensc ontinue otc antihistam ine Body mass index 40+ - severely obese 508893475 Z68.41 bmi 39Healthy Weight: 5'3= 107-140 lbs Chronic dermatitis 32606 007 L30.9 Seen by derm 02/2016 given about same treatment she had received from this office. SHe wishes to continue treatment. Hyperpigme ntation of skin 10942694 L81.9 continue trilumause daily sunscreen Cystic acne 63034274 L70 .0 drink a lot of water with this medication and daily banana Depression screening 171 270858 Z13.31 PHQ2-9 negative Mental hea lt screening 859677450 Z13.39 ANDIE-7 negative Acute sinusitis 04312387 J01.90 Acute pharyngitis 583050 003 J02.9 Allergy to fish 44725276 2 Z91.013 + allergen profile to fishGets rash [id number] Sunil Hearn MD [facility] [place] [address] [place] [address] 02/24/2022 11:58:05 02/25/2022 13:30:52 Acute urinary tract infection 014162136 N39.0 Body mass index 30+ - obesity 820778962 Z68.39 BMI 38Healthy body weight 105-135 Depression screening 171 650492 Z13.31 PHQ2-9 negative Mental hea lth screening 070217197 Z13.39 ANDIE-7 negative [id number] Salas Velasquez MD [facility] [place] [address] [place] [address] 4 02/27/2022 11:01:08 02/28/2022 11:04:03 Acute pharyngitis 722136733 J02.9 Influenza A virus present 7980681424 08 J09.X2 [id number] Salas Velasquez MD [facility] [place] [address] 4 05/02/2022 15:38:01 05/06/2022 08:27:26 Venous varices 556248719 I83.92 Multiple s kin tags on neck 113085016 L91.8 removed 3 skin tags from neck without complicati ons 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 every 6 hrs as necessary Depression screening 171 660740 Z13.31 PHQ2-9 negative Mental hea lth screening 682772208 Z13.39 ANDIE-7 negative [id number] Salas Velasquez MD [facility] [place] [address] [place] [address] 05/06/2022 12:10:55 05/07/2022 12:58:03 Acute bilateral otitis media 518057488 H66.93 Acute ethm oidal sinusitis 28434699 J01.20 Body mass index 30+ - obesity 286818690 Z68.39 BMI 37Healthy body weight 105-135 Depression screening 171 345048 Z13.31 PHQ2-9 negative Mental hea lth screening 242488663 Z13.39 ANDIE-7 negative [id number] Salas Velasquez MD [facility] [place] [address] [place] [address] 06/06/2022 12:29:56 06/09/2022 09:21:50 Uncontrolled type 2 diabetes mellitus 011487545 E11.65 HA1C 7.3 BhtkgBW7M 6.4 on 07/06/2020 will continue Metformin 1000mg 1 po bidIncreas e Ozempic 1mg once weekly to 1.5mg once weeklyMoni tor bs readings before and after meals (2Hrs) keep log Mixed hyperlipidemia 267 015784 E78.2 07/06/2020 [id number] Trig 441 HDL 32 LDL 150 07/26/2021 [...] Atorvastat in 20mg daily and LSM Obesity 574489310 E66.9 BMI 37Healthy body weight 105-135 Body mass index 30+ - obesity 856628590 Z68.39 BMI 37Healthy body weight 105-135 Generalize d anxiety disorder 87156267 F41.1 Will continue treatmentE scitalopra m 20mg dailyKlono pin for severe anxiety symptomsre commend psychother apist visits-amy cindy with problems or thoughts of harming self Chronic dermatitis 20600 007 L30.9 Seen by derm 02/2016 given about same treatment she had received from this office. SHe wishes to continue treatment. Cystic acne 60641367 L70 .0 drink a lot of water with this medication and daily banana Multiple environmental allergies 177336805 T78.49XD igE 645 plus multiple specific environmen sven allergensc ontinue otc antihistam ine Allergy to fish 61091845 2 Z91.013 + allergen profile to fishGets rash Hyperpigme ntation of skin 09592969 L81.9 continue trilumause daily sunscreen Depression screening 171 704639 Z13.31 PHQ2-9 negative Mental [facility] screening 554582184 Z13.39 ANDIE-7 negative Vitamin D deficiency 347 36746 E55.9 Vitamin D 11.3Start Rx Vitamin D2 06494 IU once weekly for 12 weeksonce you complete RX buy otc vitamin D3 1000 IU once daily Candidal intertrigo 2661 08289 B37.2 nystatin Excess morales niculus of abdomen 2435168058 101 E65 Venous varices 949553303 I83.92 weight losselevat e legssuppor t hoseibupro fen prn 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 every 6 hrs as necessary Acute fron sven sinusitis 85186600 J01.10 [id number] Salas Velasquez MD [facility] [address], [place] [address] 06/13/2022 10:30:08 06/19/2022 09:35:48 Mixed hyperlipidemia 138039656 E78.2 07/06/2020 [id number] Trig 441 HDL 32 LDL 150 07/26/2021 [...] try Atorvastat in 20mg daily and LSM [id number] Salas Velasquez MD [facility] [address], [place] [address] 06/20/2022 11:46:01 06/23/2022 15:03:46 Acute urinary tract infection 308898874 N39.0 UA dip + nitrates Burn of skin 642711096 T 30.0 Body mass index 30+ - obesity 192385892 Z68.39 BMI 37.7Health y body weight 105-090 [id number] Salas Velasquez MD [facility] [address] [place] [address] 08/14/2022 12:22:26 08/15/2022 11:44:01 Obesity 172827633 E66.9 BMI 37.4Health y body weight 105-135 Acute conj unctivitis of left eye 4704557264 61476 H10.32 Depression screening 171 542508 Z13.31 PHQ2-9 negative Mental [facility]a [facility] screening 071892091 Z13.39 ANDIE-7 negative [id number] Salas Velasquez MD [facility] [address] [address] 08/27/2022 11:10:48 08/29/2022 18:13:08 Allergic reaction 411334456 T78.40XA Had popcorn at the moviesNo new detergents , lotions, medicinesN o other family member with rashNo respirator y symptoms Pruritic rash 36182982 L 28.2 Body mass index 30+ - obesity 957508947 Z68.39 BMI 37.4Health y body weight 105-135 Depression screening 171 203144 Z13.31 PHQ2-9 negative Mental hea lth screening 541240132 Z13.39 ANDIE-7 negative 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 seen by dermatolog ist in 2016given TCE1%Doxyc ycline 100mg bid #30 [id number] Salas Velasquez MD [facility] [address], [place] [address] 09/23/2022 11:07:35 09/25/2022 13:21:26 Body mass index 30+ - obesity 378229465 Z68.39 BMI 38.3Health y body weight 105-135 Urinary symptoms 2785765 08 R39.9 Microscopic hematuria 19 4271642 R31.29 Depression screening 171 465319 Z13.31 PHQ2-9 negative Mental hea l[facility] screening 106676806 Z13.39 ANDIE-7 negative [id number] Salas Velasquez MD [facility] [address] [place] [address] 10/03/2022 11:55:36 10/07/2022 08:33:38 Mixed hyperlipidemia 362378546 E78.2 07/06/2020 [id number] Trig 441 HDL 32 LDL 150 07/26/2021 [...] LSM Uncontroll ed type 2 diabetes mellitus 006384982 E11.65 HA1C 8.5 [id number] 6.4 on 07/06/2020 will continue Metformin 1000mg 1 po bidcontinu e trulicity but increaseMo nitor bs readings before and after meals (2Hrs) keep log 06/13/2022 BUN 13creat 0.41eGFR 134 Generalize d anxiety disorder 02598259 F41.1 Will continue treatmentE scitalopra m 20mg dailyKlono pin for severe anxiety symptomsre commend psychother apist visits-amy l with problems or thoughts of harming self Obesity 492896078 E66.9 BMI 38.3Health y body weight 105-135 Body mass index 30+ - obesity 916156533 Z68.39 BMI 38.3Health y body weight 105-135 Chronic dermatitis 27737 007 L30.9 Seen by derm 02/2016 given about same treatment she had received from this office. SHe wishes to continue treatment. 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 every 6 hrs as necessary Venous varices 556622100 I83.92 weight losselevat e legssuppor t hoseibupro fen prn Depression screening 171 947941 Z13.31 PHQ2-9 negative Mental [facility] screening 224375398 Z13.39 ANDIE-7 negative [id number] Salas Velasquez MD [facility] [address] [place] [address] 12/11/2022 10:13:00 12/12/2022 13:02:56 Pain in right heel 8594741726 215702 M79.671 Generalize d anxiety disorder 14116753 F41.1 Will continue treatmentE scitalopra m 20mg dailyKlono pin for severe anxiety symptomsre commend psychother apist visits-amy l with problems or thoughts of harming self Body mass index 30+ - obesity 229504290 Z68.39 BMI 38.4Health y body weight 105-705 [id number] Salas Velasquez MD [facility] [address] [place] [address] 03/09/2023 12:30:17 03/18/2023 11:17:40 Urinary symptoms 051174002 R39.9 Active or passive immunization 231330132 Z23 Dysuria 16866834 R30.0 self swab Depression screening 171 082993 Z13.31 PHQ2-9 negative Mental [facility] screening 920121649 Z13.39 ANDIE-7 negative [id number] Salas Velasquez MD [facility] [address], [place] [address] 04/21/2023 12:34:51 04/23/2023 14:28:39 Uncontrolled type 2 diabetes mellitus 242454280 E11.65 HA1C 9.6 worsewill continue Metformin 1000mg 1 po bidstop 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 bs readings before and after meals (2Hrs) keep log 06/13/2022 BUN 13creat 0.41eGFR 134 Generalize d anxiety disorder 21053423 F41.1 Will continue treatmentE scitalopra m 20mg dailyKlono pin for severe anxiety symptomsre commend psychother api visits-amy l with problems or thoughts of harming self Mixed hyperlipidemia 267 893290 E78.2 07/06/2020 [id number] Trig 441 HDL 32 LDL 150 07/26/2021 [...] Atorvastat in 20mg daily and LSM Obesity 335612946 E66.9 BMI 38.8Health y body weight 105-135 Body mass index 30+ - obesity 865541233 Z68.39 BMI 38.8Health y body weight 105-135 Chronic dermatitis 74752 007 L30.9 Seen by derm 02/2016 given about same treatment she had received from this office. SHe wishes to continue treatment. Cystic acne 57814357 L70 .0 drink a lot of water with this medication and daily banana Multiple environmental allergies 097991244 T78.49XD igE 645 plus multiple specific environmen sven allergensc ontinue otc antihistam ine Excess morales niculus of abdomen 7796371786 101 E65 Allergy to fish 93445261 2 Z91.013 + allergen profile to fishGets rash Vitamin D deficiency 347 38578 E55.9 11/01/2021 Vitamin D 11.3 buy otc vitamin D3 1000 IU once daily Hyperpigme ntation of skin 19296884 L81.9 continue trilumause daily sunscreenr eferring to derm Venous varices 450705526 I83.92 weight losselevat e legssuppor t hoseibupro fen prn Depression screening 171 132410 Z13.31 PHQ2-9 negative Mental hea lth screening 869618071 Z13.39 ANDIE-7 negative Active or passive immunization 089965731 Z23 Cholelithi asis without obstruction 95551811 K80.20 wants GB removal Steatotic liver disease 525822694 K76.0 04/15/2023 CT abd/pelvis w/con shows fatty liver, Hepatomega ly, yessica inguinal lymphadeno harmeet, cholelithi asis and R enlarged ovary. Abnormal l iver function 06130594 K76.89 04/15/2023 CT abd/pelvis w/con shows fatty liver, Hepatomega ly, yessica inguinal lymphadeno harmeet, cholelithi asis and R enlarged ovary. Inguinal lymphadenopathy 289643058 R59.0 04/15/2023 CT abd/pelvis w/con shows fatty liver, Hepatomega ly, yessica inguinal lymphadeno harmeet, cholelithi asis and R enlarged ovary. Anxiety 93425311 F41.9 psychother apist listauto relaxation exerciseRX for prn use Acute urin wang tract infection 780172358 N39.0 [id number] Salas Velasquez MD [facility] [address] [place] [address] 05/26/2023 10:56:48 05/29/2023 10:51:17 Urinary symptoms 397664842 R39.9 Dysuria 30873657 R30.0 Depression screening 171 479938 Z13.31 PHQ2-9 negative Mental hea lth screening 789177846 Z13.39 ANDIE-7 negative Postviral cough 23102279 4 R05.3 [id number] Salas Velasquez MD [facility] [address] [place] [address] 08/20/2023 11:47:59 08/24/2023 15:31:00 Mixed hyperlipidemia 389651800 E78.2 07/06/2020 [id number] Trig 441 HDL 32 LDL 150 07/26/2021 [...] LSM Body mass index 30+ - obesity 201581582 Z68.39 BMI 38.3Health y body weight 105-135 Uncontroll ed type 2 diabetes mellitus 950833899 E11.65 HA1C 9.6 worsewill continue Metformin 1000mg 1 po bidstop trulicityi ncrease mounjaro 5 mg once weekly to 7.5mg once weekly MounjaroMo nitor bs readings before and after meals (2Hrs) keep log 06/13/2022 BUN 13creat 0.41eGFR 134 04/21/2023 BUN 13Creat 0.55eGFR 124 Generalize d anxiety disorder 88569106 F41.1 Will continue treatmentE scitalopra m 20mg dailyKlono pin for severe anxiety symptomsre commend psychother apist visits-amy l with problems or thoughts of harming self Multiple environmental allergies 044210997 T78.49XD igE 645 plus multiple specific environmen sven allergensc ontinue otc antihistam ine Obesity 819020145 E66.9 BMI 38.8Health y body weight 105-135 Chronic dermatitis 14219 007 L30.9 Seen by derm 02/2016 given about same treatment she had received from this office. SHe wishes to continue treatment. Cystic acne 08615691 L70 .0 drink a lot of water with this medication and daily bananaderm will be starting accutane Excess morales niculus of abdomen 2204001019 101 E65 Has a rash itchysweat y red wet Allergy to fish 45948469 2 Z91.013 + allergen profile to fishGets rash Vitamin D deficiency 347 74065 E55.9 11/01/2021 Vitamin D 11.31/05/22 024 Vitamin D <4.0buy otc vitamin D3 1000 IU once daily Hyperpigme ntation of skin 05140851 L81.9 continue triluma-brush s from [place] daily sunscreenr eferred to dermderm to start accutane Venous varices 630284090 I83.92 weight losselevat e legssuppor t hoseibupro fen prn Steatotic liver disease 591320362 K76.0 04/15/2023 CT abd/pelvis w/con shows fatty liver, Hepatomega ly, yessica inguinal lymphadeno harmeet, cholelithi asis and R enlarged ovary. Depression screening 171 789421 Z13.31 PHQ2-9 negative Mental hea lth screening 703243494 Z13.39 ANDIE-7 negative Cholelithi asis without obstruction 49714467 K80.20 wants GB removalsee n surgeonwil l be having removal Abnormal l iver function 29833526 K76.89 04/15/2023 CT abd/pelvis w/con shows fatty liver, Hepatomega ly, yessica inguinal lymphadeno harmeet, cholelithi asis and R enlarged ovary. Anxiety 57708994 F41.9 psychother apist listauto relaxation exerciseRX for prn use Right uppe r quadrant pain 400590579 R10.11 [id number] Salas Velasquez MD [facility] [address], [place] [address] 09/01/2023 10:14:59 09/09/2023 15:32:26 Mixed hyperlipidemia 791133249 E78.2 07/06/2020 [id number] Trig 441 HDL 32 LDL 150 07/26/2021 [...] and LSM Right uppe r quadrant pain 647140376 R10.11 [id number] Salas Velasquez MD [facility] [address], [place] [address] 09/03/2023 12:13:17 10/05/2023 10:44:57 Obesity 619147257 E66.9 BMI 37.2Health y body weight 105-135 Body mass index 30+ - obesity 010669875 Z68.39 BMI 37.2Health y body weight 105-135 Pre-surger y evaluation 077142665 Z01.818 32 y/o HF presents for medical clearance for gall bladder surgery on 09/2023. The patient had multiple chronic medical problems: DM2, HPLD, ANDIE; BMI 30+, Hepatic steatosis. Her last HA1C on 08/20/2023 was 6.6. The patient has bee losing weight and exercising . She is not a smoker or uses illicit drugs. Active or passive immunization 281302859 Z23 Type 2 ana betes mellitus 09378383 E11.9 08/20/2023 HA1c 6.6 Mixed hyperlipidemia 267 262509 E78.2 07/06/2020 [id number] Trig 441 HDL 32 LDL 150 07/26/2021 [...] try Atorvastat in 20mg daily and LSM [id number] Salas Velasquez MD [facility] [address] [place] [address] 11/02/2023 14:48:03 11/04/2023 16:21:33 Body mass index 30+ - obesity 961592911 Z68.39 The patient was started on phentermin e tabs 08/20/2023 to aid with her appetite/w eight loss. Back in August the patient weighed in at 216 She is 205 today. She continues to monitor diet and exercising .BMI 36.4Health y body weight 105-135 Obesity 725986439 E66.9 The patient was started on phentermin e tabs 08/20/2023 to aid with her appetite/w eight loss. Back in August the patient weighed in at 216 She is 205 today. She continues to monitor diet and exercising .BMI 36.4Health y body weight 105-135 Chronic dermatitis 86795 007 L30.9 Seen by derm 02/2016 given about same treatment she had received from this office. SHe wishes to continue treatment. Mental hea lt screening 028042596 Z13.39 ANDIE-7 negative [id number] Salas Velasquez MD [facility] [address], [place] [address] 12/14/2023 12:34:48 12/17/2023 11:42:04 Body mass index 30+ - obesity 226354748 Z68.39 The patient was started on phentermin [...] I 35.1Health y body weight 105-135 Obesity 517974123 E66.9 BMI 35.1Health y body weight 105-039 [id number] Salas Velasquez MD [facility] [address] [place] [address] 02/05/2024 12:44:32 02/12/2024 15:37:33 Uncontrolled type 2 diabetes mellitus 199701728 E11.65 HA1C 6.0 per patient at last checkwill continue Metformin 1000mg 1 po bidincreas e mounjaro 7.5mg once weekly to 10mg once weekly MounjaroMo nitor bs readings before and after meals (2Hrs) keep log 06/13/2022 BUN 13creat 0.41eGFR 134 04/21/2023 BUN 13Creat 0.55eGFR 124 Mixed hyperlipidemia 267 279320 E78.2 07/06/2020 [email or web address] Trig 441 HDL 32 LDL 150 07/26/2021 [...] LSM Body mass index 30+ - obesity 892536331 Z68.39 BMI 34.7Health y body weight 105-135 Generalize d anxiety disorder 38399226 F41.1 Will continue treatmentE scitalopra m 20mg dailyKlono pin for severe anxiety symptomsre commend psychother apist visits-amy l with problems or thoughts of harming self Anxiety 11590908 F41.9 auto relaxation exerciseRX clonazepam at home for prn use Multiple environmental allergies 136611152 T78.49XD igE 645 plus multiple specific environmen sven allergensc ontinue otc antihistam ine Obesity 747008807 E66.9 BMI 34.7Health y body weight 105-135adv ised will provide RX phentermin e 3 months on 3 months off as long as some weight loss and no side effects Hyperpigme ntation of skin 99073964 L81.9 continue triluma-bruhs s from [place] daily sunscreenr eferred to derm Chronic dermatitis 01206 007 L30.9 Seen by derm 02/2016 given about same treatment she had received from this office. SHe wishes to continue treatment. Cystic acne 85589467 L70 .0 drink a lot of water with this medication and daily bananaderm will be starting accutane Excess morales niculus of abdomen 5994413941 101 E65 Has a rash itchysweat y red wet Allergy to fish 79822211 2 Z91.013 + allergen profile to fishGets rash Vitamin D deficiency 347 99078 E55.9 11/01/2021 Vitamin D 11.// 024 Vitamin D <4.0buy otc vitamin D3 1000 IU once daily Venous varices 169291133 I83.92 weight losselevat e legssuppor t hoseibupro fen prn Steatotic liver disease 040630199 K76.0 04/15/2023 CT abd/pelvis w/con shows fatty liver, Hepatomega ly, yessica inguinal lymphadeno harmeet, cholelithi asis and R enlarged ovary. Abnormal l iver function 63977236 K76.89 04/15/2023 CT abd/pelvis w/con shows fatty [...] Member ID Guarantor Name 09/01/2023 2 [place] [employer] [place] [employer] Yasmeen Ny [id number] Yasmeen Ny 09/01/2023 1 [employer] - ALLIED BENEFITS - OPEN ACCESS [id number] Yasmeen Ny [id number] Yasmeen Ny 09/03/2023 2 [place] [facility] Yasmeen Ny [id number] Yasmeen Ny 09/03/2023 1 [employer] - ALLIED BENEFITS - OPEN ACCESS [id number] Yasmeen Ny [id number] Yasmeen Ny 11/02/2023 2 [place] [facility] Yasmeen Ny [id number] Yasmeen Ny 11/02/2023 1 [employer] - ALLIED BENEFITS - OPEN ACCESS [id number] Yasmeen Ny [id number] Yasmeen Ny 12/14/2023 2 [place] [facility] Yasmeen Ny [id number] Yasmeen Ny 12/14/2023 1 [employer] - ALLIED BENEFITS - OPEN ACCESS [id number] Yasmeen Ny [id number] Yasmeen Ny 02/05/2024 2 [place] [facility] Yasmeen Ny [id number] Yasmeen Ny 02/05/2024 1 [employer] - ALLIED BENEFITS - OPEN ACCESS [id number] Yasmeen Ny [id number] Yasmeen Ny Notes Date Note Type Note [...] no contraindications. LAURA Hancock Attn: Accounting ,[address] [place], [address] , [facility] 09/03/2023 18:04:02 024 text/ht [...] chronic dermatitis. WELLINGTON Hancock Attn: Accounting ,[address] [place], [address] , [facility] 11/02/2023 15:40:54 024 text/ht ml ObesityReported bypatient.Context:no [...] done yet. LAURA Hancock Attn: Accounting ,[address] [place], [address] , [facility] 12/14/2023 13:05:16 024 text/ht [...] menstruationHyperlipidemiaReported bypatient.Type of hyperlipidemia:combined Duration:chronic;intermittent Prior Tests:07/06/2020 [id number] Trig 441 HDL 32 LDL 150 07/26/2021 [...] prn anxiety. CHU Hancock- Attn: Accounting ,[address] [place], [address] , [facility] 02/05/2024 15:15:18 OBGyn Episode Ob Episode Information Episode Created Date Number of Fetuses Patient Bloodtype Patient rh Status Prepregnancy Weight lbs Domestic Partner Domestic Partner Phone Father Name Clinical Material Handler Status 06/06/19 21 1 CLOSED Fetus Data First Name Last Name Admitted to NICU Weight (g) Sex Living Outcome Pediatric Complications Fetus ID Race Codes Race Delivery Type M [id number] Vaginal Rajeev Calculation Initial Rajeev Date Initial [...]
--- OUTSIDE RECORDS SUMMARY | 2024-09-25 01:45 | XMS_ITS | Data Portability ---
Author Organization [facility] [place] Address [address] [place] [address] Care Team Providers Care Media Buyer Name Role Phone RAFACHEN MARCUS Primary Care [...] recorded. Imaging non-stres s test 2024 025 [email or web address] [address], [address], [place], [address], 09/22/2024 17:02:37 non-stres s test 2024 025 [email or web address] [address], [address], [place], [address], 09/15/2024 16:45:10 non-stres s test 2024 025 [email or web address] [address], [address], [place], [address], 09/09/2024 01:14:22 Medication Orders None recorded. Patient [...] Strep , Refle x Susce ptibi lity ([facility]/ [facility] ) Speci men Sourc e: Vagin a/Rec lynne Speci men Type: Vagin al/Re ctal Speci men Date: 2024 1649 Resul t Date: 1802 Resul t Statu s: Final resul t Abnor mal: Yes Resul ting Lab: [facility] [address] [facility] [address] Tel: CULTU RE ----- ----- ----- --- [...] susan for these drugs . Not Available [facility] (Lab) [address] [facility], [place], [address], 09/20/2024 19:05:42 08/26/19 25 08/23/2024 US, obste tric, follo w-up No observ ation record ed. [email or web address] [facility] [address] , [place], [address], 08/26/2024 16:05:55 08/26/19 25 08/25/2024 non-s tress test No observ ation record ed. [email or web address] [place] [address], [place], [address], 08/25/2024 16:29:32 09/01/19 25 08/30/2024 US, obste tric, follo w-up No observ ation record ed. [email or web address] [facility] [address], [place], [address], 09/01/2024 14:44:52 09/02/19 25 09/01/2024 non-s tress test No observ ation record ed. [email or web address] [place] [address], [place], [address], 09/01/2024 16:07:12 09/08/19 25 09/06/2024 US, obste tric, follo w-up No observ ation record ed. [email or web address] [facility] [address] , [place], [address], 09/20/2024 18:38:36 09/09/19 25 09/08/2024 non-s tress test No observ ation record ed. [email or web address] [place] [address], [place], [address], 09/08/2024 16:31:27 09/09/19 25 09/08/2024 US, obste tric, limit ed No observ ation record ed. [email or web address] [place] [address], [place], [address], 09/08/2024 17:53:42 09/09/19 25 09/08/2024 US, obste tric, limit ed No observ ation record ed. [email or web address] [address], [place], [address], 09/15/2024 11:13:07 09/16/19 25 09/13/2024 US, obste tric, follo w-up No observ ation record ed. [email or web address] [facility] [address] [place] [address], [place], [address], 09/20/2024 16:45:35 09/16/19 25 09/15/2024 non-s tress test No observ ation record ed. [email or web address] [place] [address], [place], [address], 09/15/2024 15:48:04 09/23/19 25 09/22/2024 non-s tress test No observ ation record ed. [email or web address] [place] [address], [place], [address], 09/23/2024 22:42:49 Result Notes None recorded. Problems Name Problem SNOMED Code Status Onset Date Resolution Date Notes Provider Name and Address Organization Details Recorded Time Finding of fertilit y Completed 201704/26/2020 Female infertil ity, unspecif ied;Prac sarath ID: 0001 Jorge Diaz [facility] [place] - [facility] 14:54:13 Dysuria 80217626 Completed 201704/26/2020 Dysuria; [facility] ID: 0001 [facility] 14:54:28 Acute vaginiti s 91807176 Completed 201705/08/2020 Acute vaginiti s;Practi ce ID: 0001 [facility] 12:09:31 Female genital organ symptoms 336864431 Completed 201104/26/2020 Unspecif ied symptom associat ed with female genital organs;R ecorded Elsewher e: No Locat ion: [facility] S ource: EHR Jet Wiper ashlyn: N Miguel ce ID: 0001 Ezio lable Time: 03:00:00 PM Jorge Diaz [facility] 14:54:25 Body mass index 30+ - obesity 326360493 Completed 201505/08/2020 Body mass index (BMI) 45.0-49. 9, adult;Re corded Elsewher e: No Locat ion: [facility] S ource: EHR Jet Wiper ashlyn: N Miguel ce ID: 0001 Ezio lable Time: 05:30:00 PM Yadira Mckeon [facility] 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 14:53:39 Syphilis test finding 484322583 Completed 201504/26/2020 Encntr screen for infectio ns w sexl mode of transmis s;Record ed Elsewher e: No Locat ion: [facility] S ource: EHR Jet Wiper ashlyn: N Practi ce ID: 0001 Ezio lable Time: 05:30:00 PM Jorge Diaz [facility] 14:53:43 Obesity 421240766 Completed 201305/08/2020 LD ASA per MFM [facility] 12:09:[address] Concept Completed 201704/26/2020 Encntr for general adult medical exam w/o abnormal findings ;Recorde d Elsewher e: No Locat ion: [facility] S ource: EHR Jet Wiper ashlyn: N Practi ce ID: 0001 Ezio lable Time: 08:30:00 AM Jorge Diaz [facility] 14:53:36 Screenin g for malignan t neoplasm of cervix Completed 201104/26/2020 Pap Smear;Pr actice ID: 0001 Jorge Diaz [facility] 14:53:52 Ill-defi meño intestin al infectio n Completed 201104/26/2020 No Show Fee;Prac sarath ID: 0001 Jorge Diaz [facility] 14:54:20 Amenorrh ea 58597734 Completed 201105/08/2020 AMENORRH EA;Pract ice ID: 0001 Yadira Mckeon [facility], [facility] 12:09:33 Pregnanc y test negative 155261938 Completed 201104/26/2020 Negative Pregnanc y Test;Pra ctice ID: 0001 Jorge Diaz [facility] 14:53:57 Polycyst ic ovaries Completed 201305/08/2020 Polycyst ic ovaries; Practice ID: 0001 [facility]an [facility] 12:09:44 Migraine 68261526 Completed 201305/08/2020 Migraine , unspecif ied without mention of intracta ble migraine ;Practic e ID: 0001 [facility] 12:09:40 Adult health examinat ion Completed 201404/26/2020 Routine general [facility] ;Practic e ID: 0001 Jorge Diaz [facility] 14:54:37 Speciali zed medical examinat ion Completed 201404/26/2020 Other specifie d chlamydi al diseases ;Practic e ID: 0001 Jorge Diaz [facility] 14:53:40 Venereal disease screenin g Completed 201404/26/2020 Screenin g examinat ion for venereal disease; Practice ID: 0001 [facility] 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 14:53:34 Clinical finding Completed 201504/26/2020 Obesity, unspecif ied;Prac sarath ID: 0001 Jorge Diaz [facility] 14:54:15 Severe obesity 3941705157 9104 Completed 201504/26/2020 Morbid (severe) obesity due to excess calories ;Practic e ID: 0001 [facility] 14:54:02 Primary amenorrh ea 846311656 Completed 201704/26/2020 Primary amenorrh ea;Pract ice ID: 0001 [facility] 14:53:54 Metaboli c syndrome X 877627683 Completed 201305/08/2020 Insulin resistan ce;Recor ded Elsewher e: No Locat ion: [facility] S ource: EHR Jet Wiper ashlyn: N Practi ce ID: 0001 Ezio lable Time: 09:45:00 AM [facility] 12:09:39 Infectio n screenin g Completed 201504/26/2020 Encounte r for screenin g for oth infec/pa rastc diseases ;Recorde d Elsewher e: No Locat ion: [facility] S ource: EHR Jet Wiper ashlyn: N Practi ce ID: 0001 Ezio lable Time: 05:30:00 PM Jorge Diaz [facility], [facility] 14:54:11 Diabetes mellitus 04823448 Completed 201905/08/2020 type 2 [facility] 12:09:37 Anxiety 13945391 Completed 201905/08/2020 Zoloft [facility] 12:09:34 Abnormal cervical Papanico laou smear 590331275 Completed 201905/08/20202014 Yadira zamarripa, [facility] 12:09:30 Pregnanc y 12446400 Completed 201905/08/2020 Nehal zamarripa, [facility] 4 18:08:47 Type 2 diabetes mellitus 62230778 Completed Metformi n xr 2000mg qd Sent to [facility] for manageme nt- 05/16- NPH 26U AM/88U PM Increase 2 units when 1 consecut wili fasting >90 / Humalog 16U w/ bfast & 8Uw/ lunch & 32U w/ dinner. 6units with snack over 15g carbs. Nhi zamarripa, [facility] 13:40:41 Purpuric rash 264155817 Completed clotimaz ole/beta methazon e-Rxed Nhi white [facility] 13:40:41 Obesity 926322346 Completed 2013 LD ASA per MFM Nhi white [facility] 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 13:40:41 Dilatati on of renal pelvis 823213454 Completed - bilatera l - growth u/s Nhi white [facility] 13:40:41 Anxiety 32991550 Completed 2019 Zoloft Nhi white [facility] 13:40:41 Pre-exis ting type 2 diabetes mellitus in pregnanc y 393147144 Completed 2020 DELIVER BY 36- not well controll ed. M may rec earlier. Nhi white [facility] 13:40:41 Pre-exis ting type 2 diabetes mellitus in pregnanc y 846977880 Completed 202005/08/2020 Yadira Mckeon [facility], [facility] 12:09:45 Large for gestatio n age fetus 214913203 Completed potentia l 89% 05/11 Nhi white [facility] 1 13:40:41 Pregnanc y 14375024 Active 2023 Nehal Armendariz [facility] 4 18:08:47 Type 2 diabetes mellitus 40293998 Active managed by MFM Sched [facility] 05[facility]10 [facility] 06/28 US and office visit Consult 08/03/24 NST & US 08/23/24 1:15PM to start 2xwkly antenata l testing at 32wks confirm if pt schedule MFM or our office? schedule d for US/BPP/N ST weekly onTuesda ys starting 06/02/24 pt decline Thursday NST pt schedule d on s NST/OB Jenni Diaz [facility] 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 5 13:09:37 Group B Streptoc occus carrier 5139355930 103 Active + GBS in urine Jenni Diaz [facility] 5 13:09:37 Pre-ecla mpsia 019153308 Active 2024 Dante Aponte MD [address], [place], [address], [facility] 5 16:02:57 Problem Notes None recorded. Procedures Surgical History Date Name Laterality Status Provider Name and Address Organization Details Recorded Time 03/01/20 24 Date of Last Pap Smear completed Nehal Armendariz [facility] 04/07/2024 18:07:50 09/02/19 23 IUD Removal completed Dante Aponte MD [address], [place], [address], [facility] 09/01/2022 22:15:29 05/19/19 23 Colposcopy completed Dante Aponte MD [address], [place], [address], [facility] 05/19/2022 15:31:57 05/19/19 23 Colposcopy completed Alva Kimble [facility] 03/09/2023 16:31:33 05/19/19 23 Colposcopy completed Sarah Jordan [facility] 05/19/2022 14:35:43 07/28/19 22 IUD Insertion completed Dante Aponte MD [address], [place], [address], [facility] 07/27/2021 12:17:49 05/22/19 21 NST completed Bel Dennison MD [address], [place], [address], [facility] 05/22/2020 14:09:48 05/15/19 21 NST completed Bel Dennison MD [address], [place], [address], [facility] 05/15/2020 13:43:28 04/27/19 21 NST completed Bel Dennison MD [address], [place], [address], [facility] 04/27/2020 12:17:14 04/20/19 15 Tonsillectomy completed Alva Kimble [facility] 11/09/2019 16:35:35 Imaging Results None recorded. Procedure Notes None recorded. Medical Equipment None Reported. Allergies Allergen ID Allergen Name Allergen Category Reaction Reaction Severity Criticality Documentation Date Start Date Code Code System Note Provider Name and Address Organization Details Recorded Time 1407 lisinopri l medicatio n rash Not available Not available 11/09/2019 59926 RxNorm Alva zamarripa [place] - [facility] 0 11:13:14 Medications Name Sig [...] and evening meals 01/11 completed Prescrib ed Elsew e: Yes Loca tion: Gaylehui [facility] odify By: arun connoruntlinda DateTime : 02/13/20 [...] Prescrib ed Elsewher e: No [facility] By: richard kearns DateTime : [...] ed Elsewher e: No Locat ion: Saji [facility] odify By: kashif Botellote r DateTime : 10/14/19 19 08:30:00 AM [...] Simental e: No Locat ion: Saji sandoval [facility] odify By: karine calix DateTime [...] Elsewher e: No Locat ion: Madina lori [facility] odify By: [email or web address] trick En counter DateTime [...] ed Elsewher e: No Locat ion: [facility] odify By: claire kearns DateTime : 06/07/19 [...] Available No t Available FreeStyle Herrera 2 [place] 07/06 completed Not Available Not Available Not [...] Updated DateTime 09/08/2024 158.75 cm 43.7 kg/m2 824708.9 5 g 143 mm[Hg] 91 mm[Hg] Nehal [facility] 16:49:27 Date Recorded Body height Body mass index (BMI) Body weight Systolic blood pressure Diastolic blood pressure Provider Name and Address Organization Details Last Updated DateTime 09/08/2024 158.75 cm 43.7 kg/m2 329162.9 5 g 143 mm[Hg] 91 mm[Hg] DIANE Navarro [facility] 16:30:30 Date Recorded Body weight Systolic blood pressure Diastolic blood pressure Provider Name and Address Organization Details Last Updated DateTime 09/15/2024 621943.315 39 g 122 mm[Hg] 77 mm[Hg] Nehal [facility] 09/15/2024 15:47:22 Date Recorded Body height Body mass index (BMI) Body weight Systolic blood pressure Diastolic blood pressure Provider Name and Address Organization Details Last Updated DateTime 09/15/2024 158.75 cm 44.5 kg/m2 608164.3 2 g 122 mm[Hg] 71 mm[Hg] DIANE Navarro [facility] 15:44:16 Date Recorded Body weight Systolic blood pressure Diastolic blood pressure Provider Name and Address Organization Details Last Updated DateTime 09/22/2024 384226.500 13 g 146 mm[Hg] 92 mm[Hg] Nehal Armendariz [facility] 09/22/2024 15:26:24 Date Recorded Body height Body mass index (BMI) Body weight Systolic blood pressure Diastolic blood pressure Provider Name and Address Organization Details Last Updated DateTime 09/22/2024 158.75 cm 44.8 kg/m2 592640.5 g 146 mm[Hg] 92 mm[Hg] DIANE Navarro [facility] 16:58:54 Social History Question Answer Notes LastModified by Organizat ion Details LastModified Time Tobacco Smoking Status Never Smoker Alva zamarripa, [facility] 11/09/2019 16:27:58 Are You Blind Or Do You Have Difficulty Seeing? No [email or web address] Information n ot available 03/09/2023 What Is Your Level Of Caffeine Consumption? Occasional [email or web address] Information not available 03/09/2023 In The 14 Days Before Symptom Onset, Have You Had Close Contact With A Laboratory-confirm ed COVID-19 While That Case Was Ill? No [email or web address] Information n ot available 03/09/2023 In The 14 Days Before Symptom Onset, Have You Had Close Contact With A Person Who Is Under Investigation For COVID-19 While That Person Was Ill? No Information not available 03/09/2023 Have You Been To An Area Known To Be High Risk For COVID-19? No [email or web address] Information not available 03/09/2023 Are You Deaf Or Do You Have Serious Difficulty Hearing? No Information not available 03/09/2023 What Type Of Diet Are You Following? DIABETIC [email or web address] Information n ot available 03/09/2023 Which Illicit Or Recreational Drugs Have You Used? [place] Information not available 11/09/2019 What Was The Date Of Your Most Recent Tobacco Screening? 03/09/2023 [email or web address] Information not available 03/09/2023 Do You Use Your Seat Belt Or Car Seat Routinely? Yes [email or web address] Information not available 03/09/2023 Do You Have Smoke And Carbon Monoxide Detectors In Your Home? Yes [email or web address] Information not available 03/09/2023 How Much Tobacco Do You Smoke? No Information not available 11/09/2019 Do You Use Sunscreen Routinely? Yes [email or web address] Information not available 03/09/2023 Do You Have Difficulty Walking Or Climbing Stairs? No [email or web address] Information not available 03/09/2023 Sex: Unknown Functional Status Question Answer Note LastModified by Organizat ion Details LastModified Time What is your level of alcohol consumption? Occasional [email or web address] Information not available 11/09/2019 Do you or have you ever used smokeless tobacco? Never used smokeless tobacco [email or web address] Information not available 11/09/2019 Are you able to walk? YESWOREST [email or web address] Information not available 03/09/2023 Are you able to care for yourself? Yes [email or web address] Information not available 03/09/2023 Do you have difficulty dressing or bathing? No [email or web address] Information not available 03/09/2023 Do you or have you ever used e-cigarettes or vape? Never used electronic cigarettes Information not available 11/09/2019 What is your exercise level? Occasional [email or web address] Information not available 11/09/2019 Mental Status Question Answer Note LastModified by Organization D etails LastModified Time Do you feel stressed (tense, restless, nervous, or anxious, or unable to sleep at night)? [id number] [email or web address] Information not available 03/09/2023 Family History Relationship Description Onset Age of this Age Resolved Age Notes LastModified by Organization Details LastModified Time Maternal Grandmother Diabetes mellitus [email or web address] Not available 11/08 16:27:24 Maternal Aunt Diabetes mellitus [email or web address] Not available 11/08 16:27:24 Maternal Aunt Malignant tumor of cervix [email or web address] Not available 11/08 16:27:36 Maternal Aunt Malignant tumor of breast [email or web address] Not available 11/08 16:27:47 Medical History Condition [...] SNOMED-CT Code Diagnosis ICD10 Code Diagnosis Note [id number] Franci Wyman CNM [place] [address],[facility] [place] [address] 11/09/2019 10:35:05 11/09/2019 12:09:35 [id number] Dante Aponte MD [place] [address],[facility] [place] [address] 11/09/2019 10:36:18 11/09/2019 13:42:01 [id number] Dante Aponte MD [place] [address] [address] 12/09/2019 10:39:11 12/09/2019 12:29:37 screening 400984387 Z36.82 Z36.0 Z36.89 Pruritic rash 30595621 L 28.2 Routine an tenatal care 795439803 Z34.01 [id number] MD Roxana Posada [address] [address] 12/09/2019 10:39:39 12/09/2019 11:48:03 screening 585666120 Z36.82 Z36.0 Z36.89 62308 MD Roxana Posada [address],[place] [address] 01/06/2020 11:18:19 01/06/2020 12:48:28 Gestational diabetes mellitus class A2 00596303 O24.414 50917 Dante Aponte MD [place] [address],[place] [address] 01/06/2020 11:18:55 01/06/2020 14:59:05 [id number] MD Roxana Posada [address],[place] [address] 02/03/2020 09:30:52 02/03/2020 12:31:48 screening for malformation 051151722 Z36.3 54563 [facility] [address],[place] [address] 02/03/2020 09:31:14 02/03/2020 13:25:47 Routine care 792161663 Z34.92 21911 MD Roxana Posada [address],[place] [address] 02/24/2020 14:40:59 02/24/2020 16:52:22 Headache 73574603 R51.9 Anxiety 02677082 F41.9 99581 MD Roxana Posada [address],[place] [address] 03/02/2020 09:24:54 03/02/2020 10:41:38 screening 051113312 Z36.2 O35.8XX0 O43.92 O24.112 Z3A.24 72945 Franci Wyman [place] [address],[place] [address] 03/02/2020 09:25:14 03/02/2020 10:41:22 Routine care 257737203 Z34.92 95299 Franci Wyman [place] [address],[place] [address] 03/30/2020 12:05:24 03/30/2020 14:10:47 Routine care 836453554 Z34.92 47040 Bel Dennison MD [place] [address],[place] [address] 04/11/2020 13:45:33 04/11/2020 14:43:39 Pre-existing type 2 diabetes mellitus in 092718114 O24.119 86015 Bel Dennison MD [place] [address],[place] [address] 04/27/2020 11:06:25 04/27/2020 12:38:33 Pre-existing type 2 diabetes mellitus in 334360872 O24.119 20890 Bel Dennison MD [place] [address],[place] [address] 04/27/2020 11:06:44 04/27/2020 12:43:55 Gestational diabetes mellitus class A2 85688298 O24.414 39359 Dante Aponte MD [place] [address],[place] [address] 05/01/2020 11:25:52 05/01/2020 12:33:58 Gestational diabetes mellitus class A2 20409251 O24.414 03086 MD Roxana Posada [address],[place] [address] 05/01/2020 11:27:17 05/01/2020 12:39:16 Routine care 514639523 Z34.01 76234 Dante Aponte MD [place] [address],[place] [address] 05/08/2020 11:29:34 05/08/2020 12:15:11 Gestational diabetes mellitus class A2 21789697 O24.414 06218 Grazyna Rubin [place] [address],[place] [address] 05/08/2020 11:30:35 05/08/2020 12:42:05 Routine care 815978227 Z34.93 53227 Bel Dennison MD [place] [address],[place] [address] 05/15/2020 11:29:25 05/15/2020 12:47:10 Gestational diabetes mellitus class A2 80121055 O24.414 01360 Bel Dennison MD [place] [address],[place] [address] 05/15/2020 11:30:12 05/15/2020 14:05:54 Pre-existing type 2 diabetes mellitus in 976823257 O24.119 15471 Bel Dennison MD [place] [address],[place] [address] 05/22/2020 11:36:06 05/24/2020 16:00:09 Gestational diabetes mellitus class A2 76825485 O24.414 99755 Bel Dennison MD [place] [address],[place] [address] 05/22/2020 11:37:01 05/23/2020 11:05:33 Pre-existing type 2 diabetes mellitus in 461962220 O24.119 Reduced fe sven movement 176333615 O36.8199 23377 Dante Aponte MD [place] [address],[place] [address] 05/22/2020 12:11:38 05/24/2020 11:07:14 condition affecting obstetrical care of mother 693831627 O36.8330 36872 Dante Aponte MD [place] [address],[place] [address] 07/06/2020 15:53:54 07/06/2020 16:45:54 Anxiety 29541036 F41.9 care 80734231 8 Z39.0 Patient is a 29-year-ol d [...] sertraline . She will in 1 month. 37000 Dante Aponte MD [place] [address],[place] [address] 07/27/2021 11:51:04 07/27/2021 12:18:19 Contraception care management 098443854 Z30.9 IUD was inserted without complicati ons. Insertion of intrauterine contraceptive device 48853431 Z30.430 [id number] Dante Aponte MD [place] [address],[place] [address] 04/25/2022 10:39:12 04/25/2022 13:43:15 Gynecologic examination 58871316 Z01.419 Annual gynecologi amy exam performed. Patient [...] Marielyero l - done Pap - today [id number] Dante Aponte MD [place] [address],[place] [address] 05/19/2022 13:54:03 05/19/2022 15:37:59 Dysplasia of cervix 03911046 N87.9 colposcopi c examinatio n was performed and biopsies were performed. Three biopsies and an ECC were performed and she tolerated it well. [id number] Dante Aponte MD [place] [address] [address],[place] [address] 09/01/2022 16:33:00 09/02/2022 14:30:51 Vulval irritation 832558394 N90.89 Contracept ion care management 278832017 Z30.9 IUD was inserted without complicati ons. Urinary tr act infectious disease 16689863 N39.0 patient reported urinary symptoms. [id number] BLAKE Vaughn [place] [address],[place] [address] 03/09/2023 16:32:50 03/10/2023 09:09:00 Contraception care management 687671176 Z30.9 Discussed all BC methods in-depth, r/b/a [...] counseling and review of plan of care. [id number] JOELLE MCLEAN MD [place] [address],[place] [address] 05/13/2023 12:18:10 05/14/2023 08:54:53 Vaginitis 93094839 N76.0 - swab sent, follow up on results as available [facility] management 378485904 Z30.9 - unhappy with slynd, would like Paraguard IUD placement- patient to call with next period for placement Recurrent urinary tract infection 415205095 N39.0 - patient to call for urine culture if symptoms recur, currently resolved- consider postcoital or daily ppx if recurrent [id number] Dante Aponte MD [place] [address],[place] [address] 02/22/2024 10:09:21 02/22/2024 12:07:46 Ectopic 37266635 O00.90 this patient is a 33-year-ol d [...] the week. this problem has marked complexity [id number] Dante Aponte MD [place] [address],[place] [address] 02/22/2024 10:52:45 02/22/2024 11:37:21 Low back pain in 7336353037 106 O26.899 O36.80X9 Z3A.01 [id number] Dante Aponte MD [place] [address],[facility] [place] [address] 04/07/2024 16:30:33 04/07/2024 17:49:14 screening 567227734 Z36.82 Z3A.12 [id number] Dante Aponte MD [place] [address],[place] [address] 04/07/2024 16:31:11 04/08/2024 09:39:28 Gestation period, 12 weeks 13425552 Z3A.12 [id number] Dante Aponte MD [place] [address],[place] [address] 05/05/2024 16:13:19 05/05/2024 17:37:08 [id number] MD Roxana Posada [address],[place] [address] 05/05/2024 17:30:23 05/05/2024 17:49:36 [id number] Dante Aponte MD [place] [address],[place] [address] 06/02/2024 16:32:48 06/02/2024 17:33:53 Routine care 403083411 Z34.01 [id number] Dante Aponte MD [place] [address],[place] [address] 06/30/2024 13:38:23 06/30/2024 14:25:45 Routine care 780373067 Z34.01 [id number] JOELLE MCLEAN MD [place] [address],[place] [address] 07/18/2024 16:43:22 07/18/2024 17:20:55 Vaginitis 52978494 N76.0 - tried OTC monistat without relief- swab sent, follow up on results as available [id number] Dante Aponte MD [place] [address],[place] [address] 07/28/2024 13:50:41 07/28/2024 15:00:44 Routine care 405709200 Z34.01 [id number] Dante Aponte MD [place] [address],[place] [address] 08/08/2024 14:01:40 08/08/2024 14:36:37 care status 895494706 Z34.83 [id number] Dante Aponte MD [place] [address],[place] [address] 1 08/25/2024 14:41:30 08/25/2024 15:26:20 care status 980970323 Z34.83 [id number] MD Roxana Posada [address],[place] [address] 08/25/2024 16:28:05 08/25/2024 16:32:44 Past history of gestational diabetes mellitus 748582281 Z86.32 [id number] MD Roxana Posada [address],[place] [address] 09/01/2024 13:22:25 09/01/2024 16:18:24 Gestational diabetes mellitus class A2 14487745 O24.419 [id number] MD Roxana Posada [address],[place] [address] 09/01/2024 13:22:47 09/05/2024 00:58:57 care status 184502153 Z34.83 [id number] MD Roxana Posada [address],[place] [address] 09/08/2024 15:33:55 09/08/2024 16:50:33 Gestational diabetes mellitus 51579028 O24.410 [id number] MD Roxana Posada [address],[place] [address] 09/08/2024 15:34:08 09/08/2024 16:50:00 Oligohydramnios 44536350 O41.03X0 Z3A.34 [id number] MD Roxana Posada [address],[place] [address] 09/08/2024 15:34:18 09/09/2024 01:16:04 [id number] MD Roxana Posada [address],[place] [address] 09/15/2024 15:02:18 09/15/2024 16:45:10 Gestational diabetes mellitus 82681572 O24.410 [id number] MD Roxana Posada [address],[place] [address] 09/15/2024 15:02:40 09/15/2024 16:44:53 care status 854227984 Z34.83 [id number] Dante Aponte MD [place] [address],[facility] [place] [address] 09/22/2024 14:30:30 09/22/2024 17:02:37 Gestational diabetes mellitus 86660279 O24.410 [id number] Dante Aponte MD [place] [address],[place] [address] 1 09/22/2024 14:30:39 09/22/2024 16:26:54 care status 821440311 Z34.83 Health Concerns Section Related Observation LastModified by Organization Detai ls LastModified Time None Recorded Concern Status LastModified by Organization Details LastModified Time None Recorded Advance Directives Directive None Recorded Payers Encounter Date Sequence Insurance Name Policy Number Policy Goddard Covered Member ID Goddard Member ID Guarantor Name 09/08/2024 1 [employer] - ALLIED BENEFITS - OPEN ACCESS Yasmeen Ny [id number] Yasmeen Ny 09/08/2024 2 [facility] - DOS ON OR AFTER 20 (MEDICAID REPLACEMENT - HMO) Yasmeen Ny [id number] Yasmeen Ny 09/15/2024 1 [employer] - ALLIED BENEFITS - OPEN ACCESS Yasmeen Ny [id number] Yasmeen Ny 09/15/2024 2 [facility] [place] - DOS ON OR AFTER 20 (MEDICAID REPLACEMENT - HMO) Yasmeen Ny [id number] Yasmeen Ny 09/15/2024 1 [employer] - ALLIED BENEFITS - OPEN ACCESS Yasmeen Ny [id number] Yasmeen Ny 09/15/2024 2 [facility] [place] - DOS ON OR AFTER 20 (MEDICAID REPLACEMENT - HMO) Yasmeen Ny [id number] Yasmeen Ny 09/22/2024 1 [employer] - ALLIED BENEFITS - OPEN ACCESS Yasmeen Ny [id number] Yasmeen Ny 09/22/2024 2 [facility] [place] - DOS ON OR AFTER 20 (MEDICAID REPLACEMENT - HMO) Yasmeen Ny [id number] Yasmeen Ny 09/22/2024 1 [employer] - ALLIED BENEFITS - OPEN ACCESS Yasmeen Ny [id number] Yasmeen Ny 09/22/2024 2 [facility] [place] - DOS ON OR AFTER 20 (MEDICAID REPLACEMENT - HMO) Yasmeen Ny [id number] Yasmeen Ny OBGyn Episode Ob Episode Information Episode Created Date Number of Fetuses Patient Bloodtype Patient rh Status Prepregnancy Weight lbs Domestic Partner Domestic Partner Phone Father Name Curriculum Advisory Teacher Status 12/09/19 20 1 A Positive 226 CLOSED Fetus Data First Name Last Name Admitted to NICU Weight (g) Sex Living Outcome Pediatric Complications Fetus ID Race Codes Race Delivery Type 3203.49 35 M true Full Term 3938 Vaginal Delivery Problems Problem Notes [facility] - 03/28 - Recommendations : 162mg ASA daily, echo, A1C q trimester, baseline 24 hr TP, 2x/wk NST and weekly BPP @ 32 wks. ECHO - Scheduled 04/19- Normal record in chart [facility] 05/16 SUPERINTENDENT SANITATION/DE 10:30am - *WILL REQUIRE INSULIN DRIP DURING LABOR/DECREASE BY 50% IN *[facility] - next appt 05/23 SUPERINTENDENT SANITATION/DE/US Problem Name Start Date End Date Resolution Snomed Code Not e Purpuric rash 498826690 clotim azole/betametha zone-Rxed Type 2 diabetes mellitus 99885664 Metformin xr 20 00mg qdSent to [facility] for management- 05/16-NPH 26U AM/88U PM Increase 2 units when 1 consecutive fasting >90 / Humalog 16U w/ bfast & 8Uw/ lunch & 32U w/ dinner. 6units with snack over 15g carbs. Obesity 08/19/2013 209052394 LD ASA pe r MFM Marginal insertion of umbilical cord 02/03/2020 66544984 growth u/s Dilatation of renal pelvis - bilater al - growth u/s Anxiety 11/09/2019 52841152 Zoloft Pre-existing type 2 diabetes mellitus in 04/27/2020 643682445 DELIVER BY 37- not well controlled. MFM may rec earlier. Large for gestation age fetus 982180028 potential 89% Rajeev Calculation Initial Rajeev Date [...] Weight in lbs Pre/Post Dialysis Refused Weight 230.074893440852 BP Diastolic BP Location Tested BP Systolic [...] Weight in lbs Pre/Post Dialysis Refused Weight 237.878562049956 BP Diastolic BP Location Tested BP Systolic [...] Weight in lbs Pre/Post Dialysis Refused Weight 242.340000763077 BP Diastolic BP Location Tested BP Systolic [...] Weight in lbs Pre/Post Dialysis Refused Weight 249.953484222963 BP Diastolic BP Location Tested BP Systolic [...] Weight in lbs Pre/Post Dialysis Refused Weight 249.227455263739 BP Diastolic BP Location Tested BP Systolic [...] Weight in lbs Pre/Post Dialysis Refused Weight 256.706966931279 BP Diastolic BP Location Tested BP Systolic [...] Weight in lbs Pre/Post Dialysis Refused Weight 259.001982895655 BP Diastolic BP Location Tested BP Systolic BP Type 80 125 Fetus Heart Rate Present A 145 Fetus Movement A Yes Comments 2+glucose. Ran out of insuli n for 3 days. Back on now. Sugars per MFM. On Nph and lispro /. NSTs scheduled here. Encouraged Tdap and flu, [...] Weight in lbs Pre/Post Dialysis Refused Weight 263.659473373719 BP Diastolic BP Location Tested BP Systolic [...] Weight in lbs Pre/Post Dialysis Refused Weight 268.800981244406 BP Diastolic BP Location Tested BP Systolic [...] Weight in lbs Pre/Post Dialysis Refused Weight 266.918035857628 BP Diastolic BP Location Tested BP Systolic [...] Weight in lbs Pre/Post Dialysis Refused Weight 269.811152911255 BP Diastolic BP Location Tested BP Systolic [...] Weight in lbs Pre/Post Dialysis Refused Weight 272.691846077185 BP Diastolic BP Location Tested BP Systolic [...] I discussed her case with Dr Baez [facility]. SHe recommends to deliver at 37 [...] Estim ated Date of Delivery false Thalassemia (Cymro, Frisian, Mediterranean, Or Background): MCV < 80 false Neural Tube Defect (Meningomyelocele, Spina Bifi da, Or Anencephaly) false Congenital Heart Defect false Down Syndrome false Tyrell-Sachs (eg, Holiness, Cajun, Jamaican-[place] Citizen) f alse Kodak Disease false Sickle Cell Disease Or Trait () false Hemophilia Or Other Blood Disorders false Muscular Dystrophy false Cystic Fibrosis false Vinay's Chorea false Intellectual Disability/Autism false If Yes, [...] Domestic Partner Domestic Partner Phone Father Name Curriculum Advisory Teacher Status 04/07/20 24 1 A Positive OPEN Fetus Data First Name Last Name Admitted to NICU Weight (g) Sex Living Outcome Pediatric Complications Fetus ID Race Codes Race Delivery Type [id number] Problems Problem Notes Problem Name Start Date End Date Resolution Snomed Code Not e Pre-eclampsia 09/22/2024 998585970 Type 2 diabetes mellitus 53659974 managed by [facility] 05[facility]10 [facility] 06/28 US and office visitConsult 08/03/24NST & US 08/23/24 1:15PM to start 2xwkly testing at 32wks confirm if pt schedule MFM or our office?scheduled for US/BPP/NST weekly starting 06/02/24 pt decline Thursday NST pt scheduled on NST/OB Group B Streptococcus carrier [id number] + GBS in urine Rajeev Calculation Initial [...] Weight in lbs Pre/Post Dialysis Refused Weight 209.400665202788 BP Diastolic BP Location Tested BP Systolic [...] Type Weight in lbs Pre/Post Dialysis Refused 217.460961443307 BP Diastolic BP Location Tested BP Systolic [...] Type Weight in lbs Pre/Post Dialysis Refused 222.96477260832 BP Diastolic BP Location Tested BP Systolic [...] Type Weight in lbs Pre/Post Dialysis Refused 229.242317298407 BP Diastolic BP Location Tested BP Systolic [...] Weight in lbs Pre/Post Dialysis Refused Weight 231.573609679359 BP Diastolic BP Location Tested BP Systolic BP Type 75 L arm 116 sitting Fetus Heart Rate Present A 150 Fetus Movement A Yes Comments problem visit, vaginitis. Se e note. Flowsheet Date 07/28/2024 Alonso Score Blood Edema Fundus Height Fundus Units Glucose Ketones Leukocytes Nitrite Labor Signs Protein Cervic Dilation Cervic Effacement Cervic Station Type Weight in lbs Pre/Post Dialysis Refused Weight 231.976875478060 BP Diastolic BP Location Tested BP Systolic [...] Weight in lbs Pre/Post Dialysis Refused Weight 233.092804964451 BP Diastolic BP Location Tested BP Systolic [...] Weight in lbs Pre/Post Dialysis Refused Weight 242.7016312718 BP Diastolic BP Location Tested BP Systolic [...] Weight in lbs Pre/Post Dialysis Refused Weight 242.1120092084 BP Diastolic BP Location Tested BP Systolic BP Type 63 L arm 144 sitting Fetus Heart Rate Present Fetus Movement Comments Flowsheet Date 09/01/2024 Alonso Score Blood Edema Fundus Height Fundus Units Glucose Ketones Leukocytes Nitrite Labor Signs Protein Cervic Dilation Cervic Effacement Cervic Station Type Weight in lbs Pre/Post Dialysis Refused Weight 244.794834653909 BP Diastolic BP Location Tested BP Systolic [...] Weight in lbs Pre/Post Dialysis Refused Weight 244.399826964307 BP Diastolic BP Location Tested BP Systolic BP Type 87 L arm 137 sitting Fetus Heart Rate Present Fetus Movement Comments Flowsheet Date 09/08/2024 Alonso Score Blood Edema Fundus Height Fundus Units Glucose Ketones Leukocytes Nitrite Labor Signs Protein Cervic Dilation Cervic Effacement Cervic Station Type Weight in lbs Pre/Post Dialysis Refused Weight 243.776741798551 BP Diastolic BP Location Tested BP Systolic [...] Weight in lbs Pre/Post Dialysis Refused Weight 243.187314279699 BP Diastolic BP Location Tested BP Systolic [...] Weight in lbs Pre/Post Dialysis Refused Weight 247.732247070247 BP Diastolic BP Location Tested BP Systolic BP Type 71 L arm 122 sitting Fetus Heart Rate Present Fetus Movement Comments Flowsheet Date 09/15/2024 Alonso Score Blood Edema Fundus Height Fundus Units Glucose Ketones Leukocytes Nitrite Labor Signs Protein Cervic Dilation Cervic Effacement Cervic Station Type Weight in lbs Pre/Post Dialysis Refused 247.222067033868 BP Diastolic BP Location Tested BP Systolic [...] Weight in lbs Pre/Post Dialysis Refused Weight 249.577346566018 BP Diastolic BP Location Tested BP Systolic BP Type 92 L arm 146 sitting Fetus Heart Rate Present Fetus Movement Comments Flowsheet Date 09/22/2024 Alonso Score Blood Edema Fundus Height Fundus Units Glucose Ketones Leukocytes Nitrite Labor Signs Protein Cervic Dilation Cervic Effacement Cervic Station Type Weight in lbs Pre/Post Dialysis Refused 249.494979203647 BP Diastolic BP Location Tested BP Systolic BP Type 92 L arm 146 sitting Fetus Heart Rate Present A 145 Fetus Movement A Yes Comments elevated blood pressure, lik иван preeclamptic, to deliver at 37 weeks, [facility] managing blood sugars. To induce and 6 [...]
--- OUTSIDE RECORDS SUMMARY | 2024-09-25 01:46 | XMS_ITS | Encounter Summary ---
Author Organization [facility] Health Address [address] [place] [address] Care Team Providers Care Engineering Mgr Name Role Phone Chuck Nelson SUPERVISOR CONCRETE STONE FABRICATING-PHP SOFTWARE ENGINEER Primary Care Pro vider Reason for Visit * Reason Comments Refill Request Encounter Details Date Type Department Care Team (Late st Contact Info) Description 09/06/2024 Refill [facility]/ EVALUATION UNIT [address] [facility] [facility] [place] [address] Luana Plummer MD [address] [facility] [address] [place] [address] Refill Request Social History Tobacco [...] and heating? Not hard at all 08/23/2024 [facility] of Occupat ional Health - Occupational Stress [...] things needed for daily living? No 08/23/2024 [place] Depression Scale Answer Date Recorded [place] Depression Scale Total 1 03/01/2024 The thought [...] any time in the past 12 m [facility], were you homeless or living in a m[facility]p (including now)? No 08/23/2024 Estimated Date of [...] 09/26/2024 9:30 AM CDT Appointment [facility] MATERNAL/ EVALUATION UNIT [address] [place] [address] Livan Anguiano DO [address] [place] [id number] 09/26/2024 10:30 AM CDT Appointment [facility] MATERNAL/ EVALUATION UNIT [address] [place] [address] Livan Anguiano DO [address] [place] [phone] 09/26/2024 11:15 AM CDT Appointment [facility] EV[facility]ATION UN[facility] [address] [place] [address] Latanya Villanueva MD [address] [place] [phone] 09/26/2024 11:30 AM CDT Appointment [facility] EV[facility]ATION UN[facility] [address] [place] [address] Latanya Villanueva MD [address] [place] [phone] 09/27/2024 1:00 PM CDT Appointment [facility] EV[facility]ATION UN[facility] [address] [place] [address] 09/27/2024 2:15 PM CDT Appointment [facility] UN[facility] [address] [place] [address] 09/29/2024 1:00 PM CDT Appointment [facility] [address] [place] [address] 10/03/2024 9:30 AM CDT Appointment [facility] [address] [place] [address] 10/03/2024 10:30 AM CDT Appointment [facility] UN[facility] [address] [place] [address] 10/06/2024 1:00 PM CDT Appointment [facility] [address] [place] [address] documented as of this encounter Visit Diagnoses Diagnosis Pre-existing type 2 diabetes mellitus during , antepartum (HCC) documented in this encounter Care Teams Engineering Mgr Relationship Specialty Start Date End Date Chuck Nelson APRN-EMILY [address] [phone] PCP - General Nurse Practitioner 08/25/22 documented as of this encounter
[2024-09-25] MEDS: LABETALOL HCL INJ 100 MG/20 ML VIAL 20 MG IV PUSH (01:57)
[2024-09-25 02:04] LABS: Basophils Percent Auto 0.2 % (0.2-1.2); Eosinophils Absolute Auto 0.1 K/mm3 (0-0.3); Eosinophils Percent Auto 0.6 % (0-4.4); Hematocrit 34.1 % (37.0-47.0); Hemoglobin 10.8 g/dL (12.0-15.0); Immature Granulocyte Absolute 0.05 K/mm3 (0.00-0.031); Immature Granulocyte Percent A 0.5 % (0-0.5); Lymphocytes Absolute Auto 3.47 K/mm3 (0.9-3.2); Lymphocytes Percent Auto 32.6 % (18.3-44.2); Mean Corpuscular HGB Conc 31.7 g/dl (32-36); Mean Corpuscular Hemoglobin 26.5 pg (26-34); Mean Corpuscular Volume 83.8 fl (80-100); Mean Platelet Volume 12.1 fl (7.4-10.4); Monocytes Absolute Auto 0.6 K/mm3 (0.1-0.6); Monocytes Percent Auto 5.9 % (2.6-8.5); Neutrophils Absolute Auto 6.4 K/mm3 (1.3-6.7); Neutrophils Percent Auto 60.2 % (45.5-73.1); Platelet Count Result 243 k/mm3 (150-375); Red Blood Count 4.07 M/mm3 (4.2-5.4); Red Cell Distribution Width 14.2 % (11.5-14.5); White Blood Count 10.6 K/mm3 (4.5-10.0)
[2024-09-25 02:13] LABS: Creatinine Urine 104.6 mg/dL
[2024-09-25 02:24] LABS: Add Urine Microscopic? YES; Appearance Urine Clear (Clear); Bacteria Urine 4+ /hpf; Bilirubin Urine Negative (Negative); Blood Urine Negative (Negative); Color Urine Yellow (Yellow); Glucose Urine UA Negative (Negative); Ketones Urine Trace mg/dL (Negative); Leukocyte Esterase Ur 1+ LEU/UL (Negative); Need Manual Microscopic Reviewed; Nitrate Urine Negative (Negative); Protein Urine 3+ mg/dL (Negative); RBC Urine 0-2 /hpf (0-2); Specific Grav Ur 1.026 (1.001-1.035); Squamous Epithelial Cell Urine Moderate /hpf (Few); Urobilinogen Urine 0.2 mg/dL (<2.0); pH Urine 6.5 (5.0-9.0)
[2024-09-25 02:28] LABS: Alanine Aminotransferase 14 U/L (6-35); Alkaline Phosphatase 137 U/L (38-126); Anion Gap 7 mmol/L (4-12); Aspartate Amino Transferase 25 U/L (14-36); Bilirubin,Total 0.2 mg/dL (0.2-1.3); Blood Urea Nitrogen 20 mg/dL (7-17); Calcium 8.8 mg/dL (8.4-10.2); Carbon Dioxide 20 mmol/L (22-30); Chloride 105 mmol/L (98-107); Estimated Glomerular Filt Rate > 60; Glucose 115 mg/dL (65-110); Potassium 4.1 mmol/L (3.4-5.0); Sodium 132 mmol/L (137-145); Total Protein 6.4 g/dL (6.3-8.2); Uric Acid 5.7 mg/dL (2.5-7.5)
[2024-09-25 02:34] LABS: Total Protein Urine Random 272 mg/dL
--- OUTSIDE RECORDS SUMMARY | 2024-09-26 11:03 | XMS_ITS | Continuity of Care Document ---
Author Organization [facility] Address [address] [place] [address] Phone Care Team Providers Care Hardware Assembler Name Role Phone Serg Caban MD Unavailable Ruchi vailable Medications Medication Instructions Dosage Effective Dates (start - stop) Status Comments triamcinolone acetonide 0.1 % Topical Cream apply by TOPICAL route 2 times every day a thin film to the affected skin areas - Active quantity in grams Procedures Procedure Date OFFICE/OUTPATIENT VISIT, [facility] OFFICE/OUTPATIENT VISIT, [facility] Advance Directives Directive Yes / No Effective Date File Name No Information Encounters Encounter Description Practice Location Reason(s) For Visit Diagnoses Date Provider Providers Copied on Encounter [facility] , [address], [place], [place], [address], tel:[phone] [facility] [place] No Information Marlyn Ulrich. [address], [place], [place], [address], . tel:[phone] OFFICE/OUTPATI ENT VISIT, EST [facility] , [address], [place], [place], [address], tel:[phone] [facility] [place] exam (chief complaint) Intestinal infection due to other organism, not elsewhere classified Marlyn Ulrich. [address], [place], [place], [address], . tel:[phone] [facility] , [address], [place], [place], [address], tel:[phone] [facility] [place] No Information Marlyn Ulrich. [address], [place], [place], [address], [place]. tel:[phone] OFFICE/OUTPATI ENT VISIT, [facility] , [address], [place], [place], [address], tel:[phone] [facility] [place] back pain (chief complaint) Backache Dominiquelorikelsey Ulrich. [address], [place], [place], [address], [place]. tel:[phone] Family History Family Member Type Diagnosis Age At Onset No Information Payers Payer name Insurance type Covered green party ID [facility](s) [facility] Ed 2546 [id number] Social History Type Description Quantity Date Captured [...]
--- OUTSIDE RECORDS SUMMARY | 2024-09-26 11:03 | XMS_ITS | Encounter Summary ---
Author Organization [facility] Health Address [address] [place] [address] Care Team Providers Care Program Manager Transportation Name Role Phone Chuck Nelson Marcelo SUPERVISOR VARNISH-GRADER OPERATOR Primary Care Pro vider Reason for Visit * Reason Comments Maternal Medicine Care Diabetes Encounter Details Date Type Department Care Team (Late st Contact Info) Description 09/26/2024 9:32 AM CDT Hospital Encounter [facility] [address] [facility] [place] [address] Latanya Villanueva MD [address] [facility] [address] [place] [address] Social History Tobacco Use Types Packs/Day Years [...] and heating? Not hard at all 08/23/2024 [facility] of Occupat ional Health - Occupational Stress [...] things needed for daily living? No 08/23/2024 Hamilton Depression Scale Answer Date Recorded Hamilton Depression Scale Total 1 03/01/2024 The thought [...] any time in the past 12 m [facility], were you homeless or living in a fdc (including now)? No 08/23/2024 Estimated Date of [...] Sign Reading Time Taken Comments Blood Pressure 147/92 09/26/2024 10:25 AM CDT Pulse 73 09/26/2024 10:25 AM CDT Temperature - - Respiratory Rate - - Oxygen Saturation - - Inhaled Oxygen Concentration - - Weight 113.6 kg (250 lb 6.4 oz) 025 10:25 AM CDT Height - - Body Mass Index 42.98 06/08/2024 12:59 PM WAFFLE MACHINE OPERATOR documented in this encounter Progress Notes * Rosario Antoine RN - 09/26/2024 10:26 AM CDT [employer] form completed. Diapers given. 09/26/2024 documented in this encounter Plan of Treatment Upcoming Encounters Date Type Department Care Team (Late st Contact Info) Description 09/26/2024 9:32 AM CDT Hospital Encounter [facility] MATERNAL/ EVALUATION UNIT [address] [place] [address] Kay, Latanya Espinal MD [address] [place] [address] 09/27/2024 1:00 PM CDT Appointment [facility] MATERNAL/ EVALUATION UNIT [address] [place] [address] 09/27/2024 2:15 PM CDT Appointment [facility] MATERNAL/ EVALUATION UNIT [address] [place] [address] 09/29/2024 1:00 PM CDT Appointment [facility] MATERNAL/ EVALUATION UNIT [address] [place] [address] 10/03/2024 9:30 AM CDT Appointment [facility] MATERNAL/ EVALUATION UNIT [address] [address] 10/03/2024 10:30 AM CDT Appointment [facility] MATERNAL/ EVALUATION UNIT [address] [place] [address] 10/06/2024 1:00 PM CDT Appointment [facility] MATERNAL/ EVALUATION UNIT [address] [place] [address] Scheduled Orders Name Type Priority Associated Diagnoses Orde r Schedule CBC W AUTO DIFFERENTIAL Lab Routine Elevated blood pressure affecting in third trimester, antepartum (HCC) ONCE for 1 Occurrences starting 09/26/2024 until 09/26/2024 COMPREHENSIVE METABOLIC PANEL Lab Routine Elevated blood pressure affecting in third trimester, antepartum (HCC) ONCE for 1 Occurrences starting 09/26/2024 until 09/26/2024 URINALYSIS REFLEX MICROSCOPIC REFLEX CULTURE Lab Routine Elevated blood pressure affecting in third trimester, antepartum (HCC) ONCE for 1 Occurrences starting 09/26/2024 until 09/26/2024 PROTEIN CREATININE RATIO URINE RANDOM PNL Lab Routine Elevated blood pressure affecting in third trimester, antepartum (HCC) ONCE for 1 Occurrences starting 09/26/2024 until 09/26/2024 documented as of this encounter Visit Diagnoses Diagnosis Elevated blood pressure affecting in third trimester, antepartum (HCC)- Primary documented in this encounter Care Teams Program Manager Transportation Relationship Specialty Start Date End Date Chuck Nelson, FREDERICK-GRADER OPERATOR [address] [place] [phone] PCP - General Nurse Practitioner 08/25/22 documented as of this encounter
--- OUTSIDE RECORDS SUMMARY | 2024-09-26 11:03 | XMS_ITS | Encounter Summary ---
Author Organization [facility] Health Address [address] [place] [address] Care Team Providers Care Supervisor Electronic Coils Name Role Phone Chuck Nelson PROFESSOR OF GRAPHIC DESIGN-SQUARE DANCE CALLER Primary Care Pro vider Encounter Details Date Type Department Care Team (Late st Contact Info) Description 09/26/2024 9:32 AM CDT Hospital Encounter [facility]/ [facility]ALU[facility] [address] [place] [address] Latanya Villanueva MD [address] [address] [address] [place] [address] Social History Tobacco Use Types [...] hard at all 08/23/2024 [facility] of Occupat ional Health - Occupational Stress [...] things needed for daily living? No 08/23/2024 [place] Depression Scale Answer Date Recorded [place] Depression Scale Total 1 03/01/2024 The thought [...] any time in the past 12 m [facility], were you homeless or living [...] Description 09/26/2024 9:32 AM CDT Hospital Encounter [facility] MATERNAL/ EVALUATION UNIT [address] [place] [address] Latanya Villanueva MD [address] [place] [id number] 09/27/2024 1:00 PM CDT Appointment [facility] MATERNAL/ EVALUATION UNIT [address] [place] [address] 09/27/2024 2:15 PM CDT Appointment [facility]/ EVALUATION UN[facility] [address] [place] [address] 09/29/2024 1:00 PM CDT Appointment [facility]/ [facility]ATION [facility] [address] [place] [address] 10/03/2024 9:30 AM CDT Appointment [facility]ERNAL/ EVALUATION UNIT [address] [place] [address] 10/03/2024 10:30 AM CDT Appointment [facility]/ EVALUATION UN[facility] [address] [place] [address] 10/06/2024 1:00 PM CDT Appointment [facility] MATERNAL/ EVALUATION UNIT [address] [place] [address] documented as of this encounter Visit Diagnoses Not on filedocumented in this encounter Care Teams Supervisor Electronic Coils Relationship Specialty Start Date End Date Chuck Nelson, FREDERICK-EMILY [address] [place] [phone] PCP - General Nurse Practitioner 08/25/22 documented as of this encounter
--- OUTSIDE RECORDS SUMMARY | 2024-09-26 11:03 | XMS_ITS | Clinical Summary ---
Author Organization [facility] Address [address] [place] [address] Care Team Providers Care Watch Band Assembler Name Role Phone Chuck Nelson DESIGN ENGINEER AGRICULTURAL EQUIPMENT-ACCOUNTING MACHINE MECHANIC Primary Care Pro vider Source Comments [facility],non-owned Affiliates and Associated Physician Practices is amultiple site organization consisting of ambulatory clinics and hospital sitesin [place], [place], [place] and [place]. This disclosure is being madepursuant to the Care Everywhere program and may not contain all information available regarding this patient. Last updated 18.[facility] [employer] Allergies Active Allergy Reactions Criticality Noted Date [...] long-term current use of insulin ([facility]) Use 1 Each as directed 1 kit 024 Active blood glucose (OneTouch Verio) test stripIndicatio ns:Pre-existin g type 2 diabetes mellitus during , antepartum (HCC),Type 2 diabetes mellitus with stage 1 chronic kidney disease, with long-term current use of insulin ([facility]) To monitor blood glucose (sugar) 4x daily- fasting and 1 hour after meals 100 strip 5 024 Active Lancets (ONETOUCH DELICA PLUS 33G EXTRA FINE LANCET)Indicat ions:Pre-exist ing type 2 diabetes mellitus during , antepartum ([facility]),Type 2 diabetes mellitus with stage 1 chronic kidney disease, with long-term current use of insulin ([facility]) To monitor blood glucose (sugar) 4x daily- fasting and 1 hour after meals 100 Each 5 024 Active Glucagon (Baqsimi One Pack) 3 MG/DOSE POWD [place] 1 Each into the nose as needed 1 Each 024 Active Additional Information Patient not taking.Reason: Other, Reported on 09/26/2024 triamcinolone acetonide (Kenalog) 0.1 % cream APPLY [...] diabetes mellitus during , antepartum ([facility]) Take 2 (two) tablets by mouth once daily 100 tablet 1 024 Active Vit-Fe Fumarate-FA (M-Raz Plus) 27-1 MG TABS 025 Active magnesium oxide (Mag-Ox) 400 MG tablet Take 1 (one) tablet by mouth once daily 30 tablet 2 025 Active Additional Information Patient not taking.Reason: Patient adjusted, Informant: Patient, Reported on 09/26/2024 Insulin Pen Needle (TechLite Pen Arminto) 32G X 4 MM MISCIndication s:Pre-existing type 2 diabetes mellitus during , antepartum ([facility]) Use 1 Each 5 times [...] of cephalexin is finished. 30 capsule 2 Active fluconazole (Diflucan) 150 MG tabletIndicati ons:Vaginitis affecting in third trimester, antepartum (HCC) Take 1 (one) tablet by mouth once daily Take second tablet if symptoms persist after 72 hours. 2 tablet Active Additional Information Patient not taking.Reported on 09/26/2024 insulin glargine (Lantus/Semgle e) 100 units/mL penIndications :Type 2 diabetes mellitus with hyperglycemia, unspecified whether fci insulin use (HCC) Inject 24 units in the morning and 24 units at bedtime. Take dosages approximately 12 hours apart. Increase dose as directed due to increasing insulin requirements during . Max total daily dose = 50u 15 mL 5 Active Continuous Glucose Sensor (Dexcom G7 Sensor) MISCIndication s:Pre-existing type 2 diabetes mellitus during , antepartum ([facility]) Use 1 Each Continuous for 10 days 3 Each 5 025 2025 Active Clindamycin Phosphate (Clindamycin Phos, Once-Daily,) 1 % GEL APPLY A THIN LAYER TOPICALLY TO AFFECTED AREA TWICE DAILY Active Continuous Glucose Sensor (Dexcom G7 Sensor) MISCIndication s:Pre-existing type 2 diabetes mellitus during , antepartum ([facility]) Use 1 Each Continuous for 10 days 3 Each 5 024 2024 Discontinued(R eorder) insulin glargine (Lantus/Semgle e) 100 units/mL penIndications :Type 2 diabetes mellitus with hyperglycemia, 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 [employer] form completed. Diapers given. 07/26/2024, 08/23/2024, 09/26/2024 Problem Noted Date Diagnosed Date Carrier of [...] 348K. Assessment & Plan (05/16/2020 12:49 PM CPR INSTRUCTOR): Resolution of headaches continues. Preeclampsia work up negative on 04/30: PCR: 0.18, AST: 25, ALT: 35, creatinine: 0.50, platelets: 348K. Normotensive today. Asymptomatic for preeclampsia. [facility] Plan: 1. Encouraged to continue to monitor for preeclampsia symptoms and if future headache occurs and not relieved with interventions, to always alert primary OB or seek OB evaluation at OB triage. Assessment & Plan (05/09/2020 2:03 PM CPR INSTRUCTOR): Resolution of headaches this week. Preeclampsia work up negative on 04/30: PCR: 0.18, AST: 25, ALT: 35, creatinine: 0.50, platelets: 348K. Normotensive today. Asymptomatic for preeclampsia. [facility] Plan: 1. Encouraged to continue to monitor for preeclampsia symptoms and if headache not relieved with interventions, to always alert primary OB or seek OB evaluation at OB triage. 2. Riboflavin instructions given to curing pickling packer OTC.. Assessment & Plan (05/02/2020 11:59 AM CPR INSTRUCTOR): Noticing headaches first thing in the morning [...] 5.8 Assessment & Plan (05/23/2020 12:34 PM CPR INSTRUCTOR): 24 hour urine/CMP: 04/30: PCR: 0.18, AST: [...] office who agreed. Recommendation given to primary Energy Projects Lead and patient sent to [facility] L/D today [...] . Assessment & Plan (05/16/2020 1:23 PM CPR INSTRUCTOR): 24 hour urine/CMP: 04/30: PCR: 0.18, AST: [...] delivery planning. 9. Sent to L/D at [facility] for continuous monitoring. Report called to both L/D and primary Energy Projects Lead's office regarding office visit today and decreased [...] reduction. Assessment & Plan (05/09/2020 12:01 PM CPR INSTRUCTOR): 24 hour urine/CMP: 04/30: PCR: 0.18, AST: 25, ALT: 35, creatinine: 0.50. hemoglobin A1c: 5.8%, 04/10; Previous A1c: 6% at 12 weeks. Reports normal dilated eye exam, records requested multiple times and never received. echo: completed and appropriate. Serial [id number]: EFW: 87% and 2028grams, AC: 95%. Anatomy [...] monitor. Assessment & Plan (05/02/2020 12:25 PM CPR INSTRUCTOR): 24 hour urine/CMP: 04/30: PCR: 0.18, AST: 25, ALT: 35, creatinine: 0.50 hemoglobin A1c: 5.8%, 04/10; Previous A1c: 6% at 12 weeks Compliant with 162 ASA Reports normal dilated eye exam, records requested multiple times and never received echo: completed and appropriate Serial growth last assessed 04/16: EFW: 87% and 2028grams, AC: 95% Anatomy incomplete as of 04/16 [...] today. Assessment & Plan (04/25/2020 5:32 PM CPR INSTRUCTOR): 24 hour urine/CMP: pending hemoglobin A1c: 5.8%, [...] she is scheduled to do with primary Energy Projects Lead again this Thursday. 8. Reviewed importance of [...] lab. Assessment & Plan (04/11/2020 11:49 AM CPR INSTRUCTOR): 24 hour urine/CMP: pending, has to re-do [...] she is scheduled to do with primary Energy Projects Lead. 9. Reviewed importance of twice daily kick [...] exam. Assessment & Plan (03/28/2020 12:49 PM CPR INSTRUCTOR): 24 hour urine/CMP/hemoglobin A1c: plans to do [...] becomes hypoglycemic. 7. Reviewed after hours [facility] triage number to call with any concerns. [...] Overview (04/05/2024): Insulin resistance;Recorded Elsewhere: No Location: [facility] Source: EHR Chronic: N Practice ID: [id number] [...] Encounters Date Type Department Care Team Description 09/26/2024 9:32 AM CDT Hospital Encounter [facility] MATERNAL/ EVALUATION UNIT [address] [place] [address] Latanya Villanueva MD 09/26/2024 9:32 AM CDT Hospital Encounter [facility] MATERNAL/ EVALUATION UNIT [address] [place] [address] Latanya Villanueva MD 09/26/2024 9:32 AM CDT Hospital Encounter [facility] MATERNAL/ EVALUATION UNIT [address] [place] [address] Livan Anguiano DO 09/26/2024 9:30 AM CDT Hospital Encounter [facility] MATERNAL/ EVALUATION UNIT [address] [place] [address] Livan Anguiano DO 09/26/2024 Travel 09/22/2024 8:30 AM CDT - 09/22/2024 11:59 PM CDT Hospital Encounter [facility]/ EVALUATION UNIT [address] [place] [address] Eduar Hernandez MD McIntyre, Amanda S, DESIGN ENGINEER AGRICULTURAL EQUIPMENT-ACCOUNTING MACHINE MECHANIC Discharge Disposition: Home or Self Care 09/22/2024 7:30 AM CDT - 09/22/2024 8:29 AM CDT Hospital Encounter [facility] MAT[facility]/ EVALUATION UNIT [address] [place] [address] Eduar Hernandez MD Discharge Disposition: Home or Self Care 09/22/2024 Telephone [facility]/ [facility]ATION UNIT [address] [place] [address] Rita Morales, RN Coordination Of Care 09/22/2024 Travel 09/21/2024 Telephone [facility]/ [facility]ATION UNIT [address] [place] [address] Yani Mares Appointment 09/20/2024 1:11 PM CDT - 09/20/2024 11:59 PM CDT Hospital Encounter [facility] MAT[facility]NAL/ EVALUATION UNIT [address] [place] [address] Maryjane Ortega MD Mostello, Dorothea Jean, MD Discharge Disposition: Home or Self Care 09/20/2024 1:11 PM CDT - 09/20/2024 11:59 PM CDT Hospital Encounter [facility] MAT[facility]NAL/ EVALUATION UNIT [address] [place] [address] Luana Plummer MD Discharge Disposition: Home or Self Care 09/20/2024 1:11 PM CDT - 09/20/2024 11:59 PM CDT Hospital Encounter [facility] MAT[facility]NAL/ EVALUATION UNIT [address] [place] [address] Maryjane Ortega MD Discharge Disposition: Home or Self Care 09/20/2024 1:00 PM CDT - 09/20/2024 1:10 PM CDT Hospital Encounter [facility] MAT[facility]NAL/ EVALUATION UNIT [address] [place] [address] Maryjane Ortega MD Discharge Disposition: Home or Self Care 09/20/2024 Travel 09/13/2024 1:32 PM CDT - 09/13/2024 11:59 PM CDT Hospital Encounter [facility] MATERNAL/ EVALUATION UNIT [address] [place] [id number] Bird Stevenson MD Discharge Disposition: Home or Self Care 09/13/2024 1:30 PM CDT - 09/13/2024 1:31 PM CDT Hospital Encounter [facility] MAT[facility]NAL/ EVALUATION UNIT [address] [place] [address] Bird Stevenson MD Discharge Disposition: Home or Self Care 09/13/2024 Travel 09/07/2024 Orders Only [facility] MAT[facility]/ EVALUATION UNIT [address] [place] [address] Qiana Mcfarlane, PRISCILA/LD Pre-existing type 2 diabetes mellitus during , antepartum (HCC) 09/06/2024 1:06 PM CDT - 09/06/2024 11:59 PM CDT Hospital Encounter [facility] MAT[facility]NAL/ EVALUATION UNIT [address] [place] [address] Eduar Hernandez MD Discharge Disposition: Home or Self Care 09/06/2024 1:06 PM CDT - 09/06/2024 11:59 PM CDT Hospital Encounter [facility] MAT[facility]NAL/ EVALUATION UNIT [address] [place] [address] Eduar Hernandez MD Discharge Disposition: Home or Self Care 09/06/2024 1:05 PM CDT Hospital Encounter [facility] MAT[facility]NAL/ EVALUATION UNIT [address] [place] [address] Livan Anguiano DO Discharge Disposition: Home or Self Care 09/06/2024 1:00 PM CDT - 09/06/2024 1:04 PM CDT Hospital Encounter [facility] MAT[facility]NAL/ EVALUATION UNIT [address] [place] [address] Livan Anguiano DO Discharge Disposition: Home or Self Care 09/06/2024 Refill [facility] MATERNAL/ EVALUATION UNIT [address] [place] [address] Luana Plummer MD Refill Request 09/06/2024 Travel 08/31/2024 Orders Only [facility] MATERNAL/ EVALUATION UNIT [address] [place] [address] Komal Ray MD 08/31/2024 Telephone [facility] MAT[facility]/ EV[facility]ATION UNIT [address] [place] [address] Cara Dent Scheduling 08/30/2024 1:16 PM CDT - 08/30/2024 11:59 PM CDT Hospital Encounter [facility] MAT[facility]NAL/ EVALUATION UNIT [address] [place] [address] Bird Stevenson MD Discharge Disposition: Home or Self Care 08/30/2024 1:00 PM CDT Hospital Encounter [facility] MATERNAL/ EVALUATION UNIT [address] [place] [address] Bird Stevenson MD Discharge Disposition: Home or Self Care 08/30/2024 1:00 PM CDT Hospital Encounter [facility] MATERNAL/ EVALUATION UNIT [address] [place] [address] Bird Stevenson MD Discharge Disposition: Home or Self Care 08/30/2024 Travel 08/29/2024 Orders Only [facility] MAT[facility]NAL/ EVALUATION UNIT [address] [place] [address] Elaine Sorenson, BRIGIDO Dysuria during in third trimester (HCC) 08/23/2024 1:24 PM CDT - 08/23/2024 11:59 PM CDT Hospital Encounter [facility] MAT[facility]NAL/ EVALUATION UNIT [address] [place] [address] Livan Anguiano DO Gross, Gilad A, MD Discharge Disposition: Home or Self Care 08/23/2024 1:24 PM CDT - 08/23/2024 11:59 PM CDT Hospital Encounter [facility] MATERNAL/ EVALUATION UNIT [address] [place] [address] Livan Anguiano DO Gross, Gilad A, MD Discharge Disposition: Home or Self Care 08/23/2024 1:24 PM CDT - 08/23/2024 11:59 PM CDT Hospital Encounter [facility] MAT[facility]NAL/ EVALUATION UNIT [address] [place] [address] Livan Anguiano DO SATELLITE TELEVISION INSTALLER Discharge Disposition: Home or Self Care 08/23/2024 1:15 PM CDT - 08/23/2024 1:23 PM CDT Hospital Encounter [facility] MATERNAL/ EVALUATION UNIT [address] [place] [address] Livan Anguiano DO Discharge Disposition: Home or Self Care 08/23/2024 Travel 08/03/2024 12:56 PM CDT - 08/03/2024 11:59 PM CDT Hospital Encounter [facility] MAT[facility]NAL/ EVALUATION UNIT [address] [place] [address] Dave Sevilla MD Discharge Disposition: Home or Self Care 08/03/2024 12:56 PM CDT - 08/03/2024 11:59 PM CDT Hospital Encounter [facility] MATERNAL/ EVALUATION UNIT [address] [place] [address] Dave Sevilla MD Discharge Disposition: Home or Self Care 08/03/2024 Travel 08/01/2024 Orders Only [facility] MATERNAL/ EVALUATION UNIT [address] [place] [address] Elaine Sorenson RN 07/29/2024 Telephone [facility] MATERNAL/ EVALUATION UNIT [address] [place] [address] Cara Dent 07/26/2024 1:58 PM CDT - 07/26/2024 11:59 PM CDT Hospital Encounter [facility] MATERNAL/ EVALUATION UNIT [address] [place] [id number] Eduar Hernandez MD Mostello, Dorothea Jean, MD Discharge Disposition: Home or Self Care 07/26/2024 1:58 PM CDT - 07/26/2024 11:59 PM CDT Hospital Encounter [facility] MATERNAL/ EVALUATION UNIT [address] [place] [address] Eduar Hernandez MD Mostello, Dorothea Jean, MD Discharge Disposition: Home or Self Care 07/26/2024 1:58 PM CDT - 07/26/2024 11:59 PM CDT Hospital Encounter [facility] MATERNAL/ EVALUATION UNIT [facility] [place] [address] Eduar Hernandez MD Discharge Disposition: Home or Self Care 07/26/2024 Travel 07/20/2024 1:42 PM CDT - 07/20/2024 11:59 PM CDT Hospital Encounter [facility] - Cardiology [address] [place] [phone] Moe Blackwell MD Discharge Disposition: Home or Self Care 07/20/2024 1:10 PM CDT - 07/20/2024 1:41 PM CDT Hospital Encounter [facility] - Cardiology [address] [place] [phone] Sandy Perez MD Discharge Disposition: Home or Self Care 07/12/2024 1:53 PM CDT - 07/12/2024 11:59 PM CDT Hospital Encounter [facility] MATERNAL/ EVALUATION UNIT [facility] [place] [address] Luana Plummer MD Discharge Disposition: Home or Self Care 07/12/2024 1:53 PM CDT - 07/12/2024 11:59 PM CDT Hospital Encounter [facility] MAT[facility]NAL/ EVALUATION UNIT [address] [place] [address] Luana Plummer MD Discharge Disposition: Home or Self Care 07/12/2024 Travel 06/28/2024 2:14 PM CDT - 06/28/2024 11:59 PM CDT Hospital Encounter [facility] MATERNAL/ EVALUATION UNIT [address] [place] [address] Eduar Hernandez MD Chavan, Niraj R, MD Discharge Disposition: Home or Self Care 06/28/2024 2:14 PM CDT - 06/28/2024 11:59 PM CDT Hospital Encounter [facility] MAT[facility]NAL/ EVALUATION UNIT [address] [place] [address] [address] [place] [address] Eduar Hernandez MD Chavan, Niraj R, MD Discharge Disposition: Home or Self Care 06/28/2024 2:14 PM CDT Hospital Encounter [facility] MATERNAL/ EVALUATION UNIT [address] [place] [address] Eduar Hernandez MD Discharge Disposition: Home or [...] and heating? Not hard at all 08/23/2024 [facility] Occupat ional Health - Occupational Stress [...] things needed for daily living? No 08/23/2024 Shelby Depression Scale Answer Date Recorded Shelby Depression Scale Total 1 03/01/2024 The thought [...] any time in the past 12 m [facility], were you homeless or living in a [facility] (including now)? No 08/23/2024 Estimated Date of [...] Pulse 73 09/26/2024 10:25 AM CDT Temperature 36.6 C (97.8 F) 02/28/2024 2:00 PM CPR INSTRUCTOR Respiratory Rate 16 07/12/2024 3:12 PM CDT Oxygen Saturation 98% 02/28/2024 5:00 PM CPR INSTRUCTOR Inhaled Oxygen Concentration - - Weight 113.6 kg (250 lb 6.4 oz) 025 10:25 AM CDT Height 162.6 cm (5' 4) 06/08/2024 12:5 9 PM CPR INSTRUCTOR Body Mass Index 42.98 06/08/2024 12:59 PM CPR INSTRUCTOR Plan of Treatment Upcoming Encounters Date Type Department Care Team (Late st Contact Info) Description 09/26/2024 9:32 AM CDT Hospital Encounter [facility] MATERNAL/ EVALUATION UNIT [address] [place] [address] Latanya Villanueva MD [address] [place] [phone] 09/26/2024 9:32 AM CDT Hospital Encounter [facility] MAT[facility]NAL/ EVALUATION UNIT [address] [place] [address] [place], Latanya Espinal MD [address] [place] [id number] 09/27/2024 1:00 PM CDT Appointment [facility] MAT[facility]NAL/ EVALUATION UNIT [address] [place] [address] 09/27/2024 2:15 PM CDT Appointment [facility] MATERNAL/ EVALUATION UNIT [address] [place] [address] 09/29/2024 1:00 PM CDT Appointment [facility] MAT[facility]NAL/ EVALUATION UNIT [address] [place] [address] 10/03/2024 9:30 AM CDT Appointment [facility] MAT[facility]NAL/ EVALUATION UNIT [address] [place] [address] 10/03/2024 10:30 AM CDT Appointment [facility] MAT[facility]NAL/ EVALUATION UNIT [address] [place] [address] 10/06/2024 1:00 PM CDT Appointment [facility] MAT[facility]NAL/ EVALUATION UNIT [address] [place] [address] Health Maintenance Due Date Last Done Comments [...] URINALYSIS - POCT (IP) BEAKER INTERFACE Routine 09/26/2024 10:33 AM CDT CULTURE URINE Routine 09/22/2024 8:34 AM CDT [...] URINE RANDOM PNL Routine 03/01/2024 4:35 PM CPR INSTRUCTOR Pre-existing type 2 diabetes mellitus during , antepartum Supervision of high-risk of young primigravida HEPATITIS C ANTIBODY Routine 03/01/2024 4:35 PM CPR INSTRUCTOR Pre-existing type 2 diabetes mellitus during , antepartum Supervision of high-risk of young primigravida PAP IG LB+HPV APTIMA Routine 03/01/2024 4:35 PM CPR INSTRUCTOR Supervision of high-risk of young primigravida HIV-1 HIV-2 ANTIBODY + HIV P24 AG PANEL Routine 03/01/2024 4:35 PM CPR INSTRUCTOR Pre-existing type 2 diabetes mellitus during , antepartum Supervision of high-risk of young primigravida COMPREHENSIVE METABOLIC PANEL STAT 02/28/2024 2:11 PM CPR INSTRUCTOR from Last 3 Months or Most Recently Relevant to Health Maintenance Results * (ABNORMAL) URINALYSIS - POCT (IP) BEAKER INTERFACE (09/26/2024 10:33 AM CDT) Only the most recent of8 resultswithin the time period is included. Color UA POCT Yellow Straw, Yellow, Dark Yellow, Light Yellow 09/26/2024 10:35 AM CDT [facility] Clarity UA POCT Clear Clear 5 10:35 AM CDT [facility] Specific [place] UA POCT 1.025 1.005 - 1.030 09/26/2024 10:35 AM CDT [facility] pH UA POCT 6.5 5.0 - 8.0 pH 09/26/2024 10:35 AM CDT [facility] Protein UA POCT 2+(A) Negative 10:35 AM CDT [facility] Blood UA POCT Trace-intac t(A) Negative 09/26/2024 10:35 AM CDT [facility] Leukocyte UA POCT Negative Negative 09/26/2024 10:35 AM CDT [facility] Nitrite UA POCT Negative Negative 5 10:35 AM CDT [facility] Glucose UA POCT Negative Negative 5 10:35 AM CDT [facility] Ketone UA POCT Negative Negative 09/26/2024 10:35 AM CDT [facility] Bilirubin UA POCT Negative Negative 09/26/2024 10:35 AM CDT [facility] Urobilinogen UA POCT 0.2 0.1 - 1.0 EU/dL 09/26/2024 10:35 AM CDT [facility] Urine URINE / Unknown 09/26/2024 1 0:33 AM CDT 09/26/2024 10:35 AM CDT Livan Anguiano DO LAB - POINT OF CARE ORDERABLES Final Result Performing Organization Address City/[facility] Co de Phone Number [facility] [address] [place] [address] * CULTURE URINE (09/22/2024 8:34 AM CDT) Only the most recent of4 resultswithin the time period is included. Pathologist [facility] Culture Urine 10,000-50,000 CFU/mL urogenital [facility] 09/23/2024 3:48 PM CDT [facility] Urine URINE SPECIMEN OBTAINED BY CLEAN CATCH PROCEDURE / Unknown Collection / Unknown 09/22/2024 8:34 AM CDT 09/22/2024 9:35 AM CDT Vianca Bailey MD LAB - MICROBIOLOGY ORDE RABLES Final Result Performing Organization Address [facility] Co de Phone Number [facility] [address] [place] [address], [facility] [phone] * SONOGRAM - LIMITED (09/22/2024 7:37 AM CDT) [facility] Linked Results Indication ======== Diabetes mellitus, type II (on insulin) Obesity, Class II Normal echo 07/20/24 History ====== OB History 2. Para 1 [id number] Lab Tests Test Date Result NIPT 04/05/2024 [...] with twice weekly NST Coding ====== Procedures 32696: US Uterus Limited . [facility] [place] PACS Anatomical Region Laterality Modality Other 09/22/2024 7:37 AM CDT Eduar Hernandez MD [facility] CENTER ORDERABLES Edited Result - Final * BIOPHYSICAL PROFILE W NST (09/20/2024 2:59 PM CDT) Only the most recent of5 resultswithin the time period is included. Linked Results Indication ======== Diabetes mellitus, type II (on insulin) Obesity, Class II Normal echo 07/20/24 History ====== OB History 2. Para 1 [id number] Lab Tests Test Date Result NIPT 04/05/2024 [...] 6 lb 0 oz EFW by Hadlock ([id number]) appropriate Growth Overview Exam date [place] BPD [...] maternal abnormalities Follow-up ======== Patient scheduled for [place] [facility] appt immediately following today's scan, notified provider of borderline oligohydramnios. Recommend r/o ROM. Recommend US for ABHAY check in 3 days if exam negative for ROM. Continue 2x/week testing (2x/week NST, weekly BPP), repeat UA Doppler studies in 1 week. Repeat growth in 3 weeks. Coding ====== Procedures 73116: [place] [address]: Biophysical Profile W NST 79410: Umbilical Doppler [place] PACS Anatomical Region Laterality Modality Other 09/20/2024 2:59 PM CDT Eduar Hernandez MD [facility] ORDERABLES Edited Result - Final * (ABNORMAL) GLUCOSE - POINT OF CARE (09/06/2024 2:57 PM CDT) Glucose WB/POC 67(L) 70 - 99 mg/dL 09/06/2024 3:05 PM CDT [facility] Specimen Type Arterial/C apillary 09/06/2024 3:05 PM CDT [facility] Blood BLOOD SPECIMEN / Unknown 09/06/2024 2:57 PM CDT 09/06/2024 3:05 PM CDT Livan Anguiano DO LAB - POINT OF CARE ORDERABLES Final Result [facility] [address] [place] [address] * (ABNORMAL) URINALYSIS REFLEX MICROSCOPIC REFLEX CULTURE (08/30/2024 1:22 PM CDT) Color UA Yellow Yellow, Straw 08/30/2024 2:31 PM CDT [facility] Clarity UA Clear Clear 08/30/2024 2:31 PM CDT [facility] Glucose UA Normal Normal 08/30/2024 2:31 PM CDT [facility] Bilirubin UA Negative Negative 08/30/2024 2:31 PM CDT [facility] Ketone UA Negative Negative 08/30/2024 2:31 PM CDT [facility] Specific [place] UA <1.005(L) 1.005 - 1.030 08/30/2024 2:31 PM CDT [facility] Blood UA Negative Negative 08/30/2024 2:31 PM CDT [facility] pH UA 6.5 5.0 - 8.0 pH 08/30/2024 2:31 PM CDT [facility] Protein UA Negative Negative 08/30/2024 2:31 PM CDT [facility] Urobilinogen UA Normal Normal mg/dL 08/30/2024 2:31 PM CDT [facility] Nitrite UA Negative Negative 08/30/2024 2:31 PM CDT [facility] Leukocyte Esterase UA 25 MIA/uL(A) Negative 08/30/2024 2:31 PM CDT [facility] RBC UA 0-2 0 - 5 # /hpf 08/30/2024 2:31 PM CDT [facility] WBC UA 0-5 0 - 5 # /hpf 08/30/2024 2:31 PM CDT [facility] Bacteria UA Trace(A) None Seen 08/30/2024 2:31 PM CDT [facility] Squamous Epithelial Cells 0-2 0 - 5 /hpf 08/30/2024 2:31 PM CDT [facility] Mucus UA 1+ /LPF 08/30/2024 2:31 PM CDT [facility] Reflex Status Culture to follow 08/30/2024 2:31 PM CDT [facility] Urine URINE SPECIMEN OBTAINED BY CLEAN CATCH PROCEDURE / Unknown Collection / Unknown 08/30/2024 1:22 PM CDT 08/30/2024 2:22 PM CDT Narrative [facility] - 08/30/2024 2:31 PM CDT us Bel Gibson MD LAB - URINALYSIS ORDERABLES Wilma l Result [facility] [address], [place] [id number] * HEMOGLOBIN A1C (08/23/2024 4:16 PM CDT) Hemoglobin A1c 5.3 <5.7 % 08/23/2024 5:15 PM CDT [facility] Estimated Average Glucose 105 mg/dL 08/23/2024 5:15 PM CDT [facility] Blood BLOOD SPECIMEN / Unknown Venipuncture / Unknown 08/23/2024 4:16 PM CDT 08/23/2024 4:43 PM CDT Narrative [facility] - 08/23/2024 5:15 PM CDT HbA1c [...] LAB - CHEMISTRY ORDERAB LES Final Result [facility] [address] [place], [place] [id number] * SONOGRAM - COMPLETE (07/26/2024 2:48 PM CDT) Only the most recent of2 resultswithin the time period is included. Linked Results Indication ======== Diabetes mellitus, type II Obesity, Class II Normal echo 07/20/24 History ====== OB History 2. Para 1 [id number] Lab Tests Test Date Result NIPT 04/05/2024 [...] 2 lb 9 oz EFW by Hadlock ([id number]) appropriate Growth Overview Exam date [place] BPD [...] begin twice weekly testing. Coding ====== Procedures [id number]: US Preg Uterus Follow Up [place] PACS Anatomical Region Laterality Modality Other 07/26/2024 2:48 PM CDT us Eduar Hernandez MD [facility] ORDERABLES Edited Result - Final * ECHO COMPLETE CG (07/20/2024 1:59 PM CDT) MV E pk maurice 24.63 cm/s [facility] CV F U PACS MV A pk maurice 44.09 cm/s [facility] CV F U PACS Anatomical Region Laterality Modality Ultrasound 07/20/2024 1:47 PM CDT Narrative 07/20/2024 5:32 PM CDT Name: Yasmeen Ny Patient Exam Info Gender: Female Patient Status: O/P : 1990 Admit Date: 07/20/2024 Exam Date/Time: 07/20/2024 1:47 PM Site: [facility] Current Location: [facility] EStaffOrdering Provider: Moe Blackwell Interpreting Physician: Sandy Perez MD Stock Broker: Aayush Rogers [facility] Study Info Procedure: ECHO COMPLETE [...] 07/20/2024 Exam Date/Time: 07/20/2024 1:47 PM Site: [facility] Current Location: [facility] EStaffOrdering Provider: Moe Blackwell Interpreting Physician: Sandy Perez MD Stock Broker: Aayush Rogers [facility] Study Info Procedure: ECHO COMPLETE Indications: O09.90 [...] POINT OF CARE CINDY SAMANIEGO Final Result Performing Organization Address [facility]/State/ZIP Co de Phone Number [facility] PO[facility] TEST[facility] [address] [id number] [phone] * TRICHOMONAS VAGINALIS COLLINS (06/28/2024 4:15 PM CDT) Trichomonas by COLLINS NEGATIVE NEGATIVE 06/29/2024 1:[address] [facility]CRO[facility] Microbiology (Endocervix - Swab) Collection / Unknown 06/28/2024 4:15 PM CDT 06/28/2024 4:22 PM CDT Lino Lombardo MD LAB - MICROBIOLOGY TASHA FORRESTER Final Result Performing Organization Address City/[facility]/ZIP Co de Phone Number [facility] [address] [place] [address], [facility] [phone] * CHLAMYDIA AND N. GONORRHOEAE COLLINS (06/28/2024 4:15 PM CDT) Chlamydia by COLLINS NEGATIVE NEGATIVE 06/29/2024 1:[address] [facility]CRO[facility] Neisseria gonorrhoeae COLLINS NEGATIVE NEGATIVE 06/29/2024 1:38 PM CDT [facility] Microbiology (Endocervix - Swab) Collection / Unknown 06/28/2024 4:15 PM CDT 06/28/2024 4:22 PM CDT Lino Lombardo MD LAB - MICROBIOLOGY CINDYMavsi SPARKSMARIN Final Result Performing Organization Address [facility] Co de Phone Number [facility]CRO[facility] [address] [place] [address], [facility] [phone] * PAP IG LB+HPV APTIMA (03/01/2024 4:35 PM CPR INSTRUCTOR) Diagnosis Comment 03/09/2024 5:09 PM CPR INSTRUCTOR [facility] ([facility]) Comment:NEGATIVE FOR INTRAEP ITHELIAL LESION OR MALIGNANCY. Specimen Adequacy Comment 5:09 PM CPR INSTRUCTOR [facility] ([facility]) Comment:Satisfactory for loida luation. No endocervical component is identified. Performed by Comment 03/09/2024 5:09 PM CPR INSTRUCTOR [facility] ([facility]) Comment:Bharti Ocampo, Cytot echnologist (ASCP) Comment . 03/09/2024 5:09 PM CPR INSTRUCTOR [facility] ([facility]) Note Comment 03/09/2024 5:09 PM CPR INSTRUCTOR [facility] ([facility]) Comment: The Pap smear is a screening test designed to aid in the detection of premalignant and malignant conditions of the uterine cervix. It is not a diagnostic procedure and should not be used as the sole means of detecting cervical cancer. Both false-positive and false-negative reports do occur. IGLBP CPT Code Automation Comment 03/09/2024 5:09 PM CPR INSTRUCTOR [facility] ([facility]) Comment: This liquid based ThinPrep(R) pap test was screened with the use of an image guided system. Human papillomavirus Aptima Negative Negative 03/09/2024 5:09 PM CPR INSTRUCTOR [facility] ([facility]) Comment: This nucleic acid amplification test detects fourteen high-risk HPV types (16,18,31,33,35,39,45,51,52,56,58,59,66,68) without differentiation. Pathology/Cytolo gy PART OF UTERINE CERVIX / Unknown Collection / Unknown 03/01/2024 4:35 PM CPR INSTRUCTOR 03/01/2024 4:54 PM CPR INSTRUCTOR Narrative [facility] ([facility]) - 03/09/2024 5:09 PM CPR INSTRUCTOR Performed at: 01 - [address] [id number] Invoice Control Clerk: Kaylee Torres MD, Phone: [phone] Performed at: 02 - [address] [id number] Invoice Control Clerk: Kaylee Torres MD, Phone: [phone] Specimen Comment: Source.............Cervix Specimen Comment: LMP / Prev Treat...Liberal / BX Specimen Comment: No. of containers..01 ThinPrep Vial Lino Lombardo MD LAB - PATHOLOGY/CYTOLOG Y ORDERABLES Final Result [employer] ([facility]) [address] [place] [phone] * HIV-1 HIV-2 ANTIBODY + HIV P24 AG PANEL (03/01/2024 4:35 PM CPR INSTRUCTOR) HIV1/2 Ab + P24 Ag Non Reactive Non Reactive 03/01/2024 5:51 PM CPR INSTRUCTOR [facility] Blood BLOOD SPECIMEN / Unknown Venipuncture / Unknown 03/01/2024 4:35 PM CPR INSTRUCTOR 03/01/2024 4:53 PM CPR INSTRUCTOR Narrative [facility] - 03/01/2024 5:51 PM CPR INSTRUCTOR No Laboratory evidence of HIV infection. Lino Lombardo MD LAB - CHEMISTRY ORDERAB LES Final Result Performing Organization Address [facility] Co de Phone Number [facility] [address] [place] [phone] * (ABNORMAL) PROTEIN CREATININE RATIO URINE RANDOM PNL (03/01/2024 4:35 PM CPR INSTRUCTOR) Pathologist [facility] Protein Urine 13.7(H) <11.9 mg/dL 03/01/2024 5:36 PM CPR INSTRUCTOR [facility] Creatinine Urine 192.10 mg/dL 03/01/2024 5:36 PM CPR INSTRUCTOR [facility] Protein/Creatin ine Ratio Urine 0.07 03/01/2024 5:36 PM CPR INSTRUCTOR [facility] Urine URINE SPECIMEN OBTAINED BY CLEAN CATCH PROCEDURE / Unknown Collection / Unknown 03/01/2024 4:35 PM CPR INSTRUCTOR 03/01/2024 4:54 PM CPR INSTRUCTOR Lino Lombardo MD LAB - URINE CHEMISTRY O RDERABLES Final Result Performing Organization Address [facility] de Phone Number [facility] [address] [place] [phone] * HEPATITIS C ANTIBODY (03/01/2024 4:35 PM CPR INSTRUCTOR) [facility] HCV Antibody Screen Non Reactive Non Reactive 03/01/2024 5:51 PM CPR INSTRUCTOR [facility] Blood BLOOD SPECIMEN / Unknown Venipuncture / Unknown 03/01/2024 4:35 PM CPR INSTRUCTOR 03/01/2024 4:53 PM CPR INSTRUCTOR Narrative [facility] - 03/01/2024 5:51 PM CPR INSTRUCTOR Non Reactive - Antibodies to Hepatitis C virus (HCV) were not detected, result does not exclude early acute HCV infection. Lino Lombardo MD LAB - CHEMISTRY ORDERAB LES Final Result Performing Organization Address [facility] Co de Phone Number [facility] [address] [place] [phone] * (ABNORMAL) COMPREHENSIVE METABOLIC PANEL (02/28/2024 2:11 PM CPR INSTRUCTOR) [facility] Glucose 114(H) 70 - 99 mg/dL 02/28/2024 2:32 PM CPR INSTRUCTOR [facility] Sodium 138 136 - 145 mmol/L 02/28/2024 2:32 PM [facility] Potassium 3.7 3.5 - 5.1 mmol/L 02/28/2024 2:32 PM [facility] Chloride 109(H) 98 - 107 mmol/L 02/28/2024 2:32 PM [facility] CO2 23 22 - 29 mmol/L 02/28/2024 2:32 PM [facility] Calcium 9.0 8.4 - 10.4 mg/dL 02/28/2024 2:32 PM [facility] Anion Gap 6 6 - 16 mmol/L 02/28/2024 2:32 PM [facility] BUN 8 5.3 - 18.7 mg/dL 02/28/2024 2:32 PM [facility] Creatinine 0.76 0.57 - 1.11 mg/dL 02/28/2024 2:32 PM [facility] Alkaline Phosphatase 67 40 - 150 U/L 02/28/2024 2:32 PM [facility] ALT 11 0 - 55 U/L 02/28/2024 2:32 PM [facility] AST 15 5 - 34 U/L 02/28/2024 2:32 PM [facility] Protein Total 7.0 6.4 - 8.3 gm/dL 02/28/2024 2:32 PM [facility] Albumin 3.4 3.4 - 5.0 gm/dL 02/28/2024 2:32 PM [facility] Bilirubin Total 0.4 0.2 - 1.2 mg/dL 02/28/2024 2:32 PM [facility] eGFR by CKD-EPI >90 >=90 mL/min/1.7 3 m2 02/28/2024 2:32 PM [facility] Blood BLOOD SPECIMEN / Unknown Venipuncture / Unknown 02/28/2024 2:11 PM CPR INSTRUCTOR 02/28/2024 2:16 PM [facility] us Robert Haddad PA-C LAB - CHEMISTRY ORDERABLE S Final Result [facility] [address] [place] [address] from Last 3 Months or Most Recently Relevant to Health Maintenance Insurance [employer] [facility] Care Teams Watch Band Assembler Relationship Specialty Start Date End Date Chuck Nelson APRN-EMILY [address] [place] [phone] PCP - General Nurse Practitioner 08/25/22
--- OUTSIDE RECORDS SUMMARY | 2024-09-26 11:03 | XMS_ITS | Encounter Summary ---
Author Organization [facility] Address [address] [facility] [place] [address] Care Team Providers Care Replanting Machine Crew Name Role Phone Chuck Nelson BURIAL AGENT-MEAT DRESSER Primary Care Pro vider Reason for Visit * Reason Onset Date Comments MEDICATION REFILL 03/08/2024 Encounter Details Date Type Department Care Team (Late st Contact Info) Description 03/08/2024 Refill [facility] [address] [facility] [place] [phone] Eduar Hernandez MD [address] [facility] [address] [place] [address] MEDICATION REFILL Social History Tobacco Use Types [...] and heating? Not hard at all 02/24/2024 [facility] [place] of Occupat ional Health - Occupational Stress [...] things needed for daily living? No 02/24/2024 [place] Depression Scale Answer Date Recorded [place] Depression Scale Total 1 03/01/2024 The thought [...] time in the past 12 m [facility], were you homeless or living in a longterm (including now)? Yes 02/24/2024 Estimated Date of [...] Description 09/26/2024 9:32 AM CDT Hospital Encounter [facility] [address] [place] [address] Kay, Latanya Espinal MD [address] [place] [phone] 09/26/2024 9:32 AM CDT Hospital Encounter [facility] [address] [place] [address] Latanya Villanueva MD [address] [place] [address] 09/27/2024 1:00 PM CDT Appointment [facility] [address] [place] [address] 09/27/2024 2:15 PM CDT Appointment [facility] [address] [place] [address] 09/29/2024 1:00 PM CDT Appointment [facility] [address] [place] [address] 10/03/2024 9:30 AM CDT Appointment [facility] [address] [place] [address] 10/03/2024 10:30 AM CDT Appointment [facility] [address] [place] [address] 10/06/2024 1:00 PM CDT Appointment [facility] [address] [place] [address] documented as of this encounter Visit Diagnoses Diagnosis Pre-existing type 2 diabetes mellitus during , antepartum (HCC) Type 2 diabetes mellitus with stage 1 chronic kidney disease, with long-term current use of insulin (HCC) Elevated blood pressure affecting in third trimester, antepartum (HCC)- Primary documented in this encounter Care Teams Replanting Machine Crew Relationship Specialty Start Date End Date Chuck Nelson, FREDERICK-MEAT DRESSER [address] [place] [phone] PCP - General Nurse Practitioner 08/25/22 documented as of this encounter
--- OUTSIDE RECORDS SUMMARY | 2024-09-26 11:03 | XMS_ITS | Encounter Summary ---
Author Organization [facility] Address [address] [place] [address] Care Team Providers Care Ventilation Mechanic Name Role Phone Chuck Nelson Marcelo TAG METER OPERATOR-SAW FILER Primary Care Pro vider Reason for Visit * Reason Comments Non-stress Test Encounter Details Date Type Department Care Team (Late st Contact Info) Description 09/26/2024 9:30 AM CDT Hospital Encounter [facility] [address] [facility] [place] [address] Livan Anguiano DO [address] [facility] [address] [place] [address] Social History Tobacco Use Types [...] and heating? Not hard at all 08/23/2024 [facility] of Occupat ional Health - Occupational Stress [...] things needed for daily living? No 08/23/2024 [place] Depression Scale Answer Date Recorded [place] Depression Scale Total 1 03/01/2024 The thought [...] time in the past 12 m [facility], were you homeless or living in a alf (including now)? No 08/23/2024 Estimated Date of [...] Description 09/26/2024 9:32 AM CDT Hospital Encounter [facility] MATERNAL/ EVALUATION UNIT [address] [place] [address] Latanya Villanueva MD [address] [place] [phone] 09/26/2024 9:32 AM CDT Hospital Encounter [facility] MAT[facility]NAL/ EVALUATION UNIT [address] [place] [address] Tullos, Latanya Espinal MD [address] [place] [phone] 09/27/2024 1:00 PM CDT Appointment [facility]/ EVALUATION UNIT [address] [place] [address] 09/27/2024 2:15 PM CDT Appointment [facility]/ EVALUATION UNIT [address] [facility] [address] [place] [address] 09/29/2024 1:00 PM CDT Appointment [facility]/ EVALUATION UNIT [address] [place] [address] 10/03/2024 9:30 AM CDT Appointment [facility] MAT[facility]NAL/ EVALUATION UNIT [address] [place] [address] 10/03/2024 10:30 AM CDT Appointment [facility] MAT[facility]/ EVALUATION UNIT [address] [place] [address] 10/06/2024 1:00 PM CDT Appointment [facility] MAT[facility]NAL/ [facility]ALUATION UNIT [address] [place] [address] documented as of this encounter Procedures Procedure Name Priority Date/Time Associated Diagnosis Comments URINALYSIS - POCT (IP) BEAKER INTERFACE Routine 09/26/2024 10:33 AM CDT documented in this encounter Results * (ABNORMAL) URINALYSIS - POCT (IP) BEAKER INTERFACE (09/26/2024 10:33 AM CDT) Color UA POCT Yellow Straw, Yellow, Dark Yellow, Light Yellow 09/26/2024 10:35 AM CDT [facility] Clarity UA POCT Clear Clear 10:35 AM CDT [facility] Specific [place] UA POCT 1.025 1.005 - 1.030 09/26/2024 10:35 AM CDT [facility] pH UA POCT 6.5 5.0 - 8.0 pH 09/26/2024 10:35 AM CDT [facility] Protein UA POCT 2+(A) Negative 5 10:35 AM CDT [facility] Blood UA POCT Trace-intac t(A) Negative 09/26/2024 10:35 AM CDT [facility] Leukocyte UA POCT Negative Negative 09/26/2024 10:35 AM CDT [facility] Nitrite UA POCT Negative Negative 5 10:35 AM CDT [facility] Glucose UA POCT Negative Negative 10:35 AM CDT [facility] Ketone UA POCT Negative Negative 09/26/2024 10:35 AM CDT [facility] Bilirubin UA POCT Negative Negative 09/26/2024 10:35 AM CDT [facility] Urobilinogen UA POCT 0.2 0.1 - 1.0 EU/dL 09/26/2024 10:35 AM CDT [facility] Urine URINE / Unknown 09/26/2024 1 0:33 AM CDT 09/26/2024 10:35 AM CDT Livan Anguiano DO LAB - POINT OF CARE ORDERABLES Final Result Performing Organization Address City/State/[facility] Co de Phone Number [facility] [address] [place] [address] documented in this encounter Visit Diagnoses Not on filedocumented in this encounter Care Teams Ventilation Mechanic Relationship Specialty Start Date End Date Chuck Nelson APRN-EMILY [address] [place] [phone] PCP - General Nurse Practitioner 08/25/22 documented as of this encounter
--- OUTSIDE RECORDS SUMMARY | 2024-09-26 11:03 | XMS_ITS | Encounter Summary ---
Author Organization [facility] Address [address] [place] [place] [address] Care Team Providers Care Construction Trades Contractor Name Role Phone Chuck Nelson Marcelo MACHINE MAINTENANCE MECHANIC-MEDICAL CSR Primary Care Pro vider Encounter Details Date Type Department Care Team (Latest Contact Info) Description 09/26/2024 Travel Social History Tobacco Use Types Packs/Day [...] and heating? Not hard at all 08/23/2024 [facility] [place] of Occupat ional Health - Occupational Stress [...] things needed for daily living? No 08/23/2024 [place] Depression Scale Answer Date Recorded [place] Depression Scale Total 1 03/01/2024 The thought [...] Description 09/26/2024 9:32 AM CDT Hospital Encounter [facility] [place] [address] Latanya Villanueva MD [address] [phone] 09/26/2024 9:32 AM CDT Hospital Encounter [facility] [place] [address] Latanya Villanueva MD [address] [facility] [address] [place] [address] 09/27/2024 1:00 PM CDT Appointment [facility]ATION [facility] [place] [address] 09/27/2024 2:15 PM CDT Appointment [facility] MATERNAL/ EVALUATION UNIT [address] [place] [address] 09/29/2024 1:00 PM CDT Appointment [facility] MATERNAL/ EVALUATION UNIT [address] [place] [address] 10/03/2024 9:30 AM CDT Appointment [facility]NAL/ EVALUATION UNIT [address] [place] [address] 10/03/2024 10:30 AM CDT Appointment [facility] EVALUATION UNIT [address] [place] [address] 10/06/2024 1:00 PM CDT Appointment [facility]IT [address] [place] [address] documented as of this encounter Visit Diagnoses Not on filedocumented in this encounter Care Teams Construction Trades Contractor Relationship Specialty Start Date End Date Chuck Nelson APRN-EMILY [address] [place] [phone] PCP - General Nurse Practitioner 08/25/22 documented as of this encounter
--- OUTSIDE RECORDS SUMMARY | 2024-09-26 11:03 | XMS_ITS | Encounter Summary ---
Author Organization [facility] Health Address [address] [facility] [place] [address] Care Team Providers Care Appraisal Coordinator Name Role Phone Omar, Chuck Roberston SUPERVISOR PHOTOCOMPOSITION-COURT ORDERLY Primary Care Pro vider Encounter Details Date Type Department Care Team (Late st Contact Info) Description 09/26/2024 9:32 AM CDT Hospital Encounter [facility] EVALUATION UN[facility] [address] [facility] [place] [address] Livan Anguiano DO [address] [facility] [address] [place] [id number] Social History Tobacco Use Types Packs/Day Years [...] and heating? Not hard at all 08/23/2024 [facility] [place] of Occupat ional Health - Occupational Stress [...] things needed for daily living? No 08/23/2024 [place] Depression Scale Answer Date Recorded [place] Depression Scale Total 1 03/01/2024 The thought [...] any time in the past 12 m [facility], were you homeless or living in a jail (including now)? No 08/23/2024 Estimated Date of [...] Description 09/26/2024 9:32 AM CDT Hospital Encounter [facility] MATERNAL/ EVALUATION UNIT [address] [place] [address] Latanya Villanueva MD [address] [place] [phone] 09/26/2024 9:32 AM CDT Hospital Encounter [facility] MATERNAL/ EVALUATION UNIT [address] [place] [address] Latanya Villanueva MD [address] [place] [address] 09/27/2024 1:00 PM CDT Appointment [facility] MATERNAL/ EVALUATION UNIT [address] [place] [address] 09/27/2024 2:15 PM CDT Appointment [facility]ATION [facility]IT [address] [place] [address] 09/29/2024 1:00 PM CDT Appointment [facility] UN[facility] [address] [place] [address] 10/03/2024 9:30 AM CDT Appointment [facility] MATERNAL/ EVALUATION UNIT [address] [place] [address] 10/03/2024 10:30 AM CDT Appointment [facility] MATERNAL/ EVALUATION UNIT [address] [place] [address] 10/06/2024 1:00 PM CDT Appointment [facility] MATERNAL/ EVALUATION UNIT [address] [place] [address] documented as of this encounter Visit Diagnoses Not on filedocumented in this encounter Care Teams Appraisal Coordinator Relationship Specialty Start Date End Date Chuck Nelson, FREDERICK-COURT ORDERLY [address] [place] [phone] PCP - General Nurse Practitioner 08/25/22 documented as of this encounter
--- OUTSIDE RECORDS SUMMARY | 2024-09-26 11:03 | XMS_ITS | Encounter Summary ---
Author Organization [facility] Address [address] [facility] [place] [address] Care Team Providers Care Sales Product Specialist Name Role Phone Chuck Nelson WEB DEVELOPMENT INSTRUCTOR-SPIN TANK TENDER Primary Care Pro vider Reason for Visit * Reason Onset Date Comments MEDICATION REFILL 05/23/2024 Encounter Details Date Type Department Care Team (Late st Contact Info) Description 05/23/2024 Refill [facility]NAL/ EVALUATION UNIT [address] [facility] [place] [id number] Luana Plummer MD [address] [facility] [address] [place] [address] MEDICATION REFILL Social History Tobacco [...] and heating? Not hard at all 02/24/2024 [facility] [place] of Occupat ional Health - Occupational Stress [...] things needed for daily living? No 02/24/2024 [place] Depression Scale Answer Date Recorded [place] Depression Scale Total 1 03/01/2024 The thought [...] any time in the past 12 m [facility], were you homeless or living in [...] 09/26/2024 9:32 AM CDT Hospital Encounter [facility] MATERNAL/ EVALUATION UNIT [address] [place] [address] Latanya Villanueva MD [address] [place] [phone] 09/26/2024 9:32 AM CDT Hospital Encounter [facility] MATERNAL/ EVALUATION UNIT [address] [place] [address] Latanya Villanueva MD [address] [place] [address] 09/27/2024 1:00 PM CDT Appointment [facility]NAL/ EVALUATION UNIT [address] [place] [address] 09/27/2024 2:15 PM CDT Appointment [facility]/ EVALUATION UNIT [address] [place] [address] 09/29/2024 1:00 PM CDT Appointment [facility] EVALUATION UNIT [address] [place] [address] 10/03/2024 9:30 AM CDT Appointment [facility]/ EVALUATION UNIT [address] [place] [address] 10/03/2024 10:30 AM CDT Appointment [facility]NAL/ EVALUATION UNIT [address] [place] [address] 10/06/2024 1:00 PM CDT Appointment [facility]NAL[facility] EVALUATION UNIT [address] [place] [address] documented as of this encounter Visit Diagnoses Diagnosis Pre-existing type 2 diabetes mellitus during , antepartum (HCC) Elevated blood pressure affecting in third trimester, antepartum (HCC)- Primary documented in this encounter Care Teams Sales Product Specialist Relationship Specialty Start Date End Date Chuck Nelson APRN-EMILY [address] [place] [phone] PCP - General Nurse Practitioner 08/25/22 documented as of this encounter
--- OUTSIDE RECORDS SUMMARY | 2024-09-26 11:04 | XMS_ITS | Data Portability ---
Author Organization Vanna ROMERO Address [address] [place] [address] Care Team Providers Care Curing Supervisor Name Role Phone [facility] Regulatory Affairs Assistant CHUCK CRAIG Primary Care Provider Assessment No assessment recorded. Plan of Treatment Reminders Order Date Submit Date Provider Last Modified By Organization Details Last Modified Time Details Appointments None recorded. Lab test, urine 2023 024 singh In-Office Order, Internal Use Only DO Not Attach Compendium DO Not Attach Compendium, Do Not Delete/merge, [id number] 13:09:24 lipid panel, serum 2023 024 singh [facility], [address] [place] [address], [address], [place], [address], 4 11:40:06 CBC w/ auto diff 2023 024 [employer] [facility], [address] [place] [address], [address], [place], [address], 4 11:40:06 amylase + lipase, serum 2023 024 [employer] [facility], [address] [place] [address], [address], [place], [address], 4 11:40:06 Referral None recorded. Procedures None recorded. Surgeries None recorded. Imaging None recorded. Medication Orders aspirin 81 mg tablet,orly rodriguezd release 2023 [facility], [facility] [place], [address], 13:20:45 atorvastati n 20 mg tablet 2023 [facility], [address] [place] [address], [address], 13:20:49 spironolact one 100 mg tablet 2023 [facility], [address] [place] [address], [address], 4 13:20:46 nystatin 100,000 unit/gram topical powder 2023 [facility], [address] [place] [address], [address], 13:20:47 phentermine 37.5 mg tablet 2023 [facility], [facility] [place], [address], 13:20:56 escitalopra m 20 mg tablet 2023 [facility], [facility] [place], [address], 13:20:49 metformin 1,000 mg tablet 2023 024 [facility], [address] [place] [address], [address], 4 13:20:44 Mounjaro 10 mg/0.5 mL subcutaneou s pen injector [address] [facility] [address], [address] [place] [address], [address], 13:20:48 fluticasone propionate 50 mcg/actuati on nasal spray,suspe nsion 2023 024 [facility], [address] [place], [address], 4 13:20:46 montelukast 10 mg tablet 2023 024 [facility] [address], [address] [place] [address], [address], 13:20:49 phentermine 37.5 mg tablet 2023 [facility], [address] [place] [address], [id number], 18:24:29 phentermine 37.5 mg tablet 2023 [facility], [address] [place] [address], [address], 15:30:16 triamcinolo ne acetonide 0.1 % topical cream 2023 [facility] [address], [address] [place] [address], [address], 15:30:14 Patient TargetsNo targets recorded. Patient Instructions Encounter Date Encounter Id Patient Instructions Last Modified By Organization Details Last Modified Time 09/03/2023 [id number] A healthy lifestyle: care instructions yarauz Not available 09/03/2023 13:09:22 body mass index: care instructions yarauz Not available 09/03/2023 13:09:22 learning about healthy weight yarauz Not available 09/03/2023 13:09:[address] op phentermine for now till after surgery continue present meds yarauz Not available 09/03/2023 17:56:58 11/02/2023 [id number] body mass index: care instructions yarauz Not [...] Rx yarauz Not available 11/02/2023 15:13:42 12/14/2023 [id number] When You Want to Lose Weight: Care [...] Rx yarauz Not available 12/14/2023 12:51:59 02/05/2024 [id number] learning about endovenous ablation for varicose veins [...] DO Not Attach Compendium, Do Not Delete/merge, [id number] 08/20/2023 11:59:00 08/20/19 24 08/20/2023 HbA1c (hemo globi n A1c), blood HbA1c 6.6 Not Available In-Office Order Internal Use Only DO Not Attach Compendium DO Not Attach Compendium, Do Not Delete/merge, [id number] 08/20/2023 11:58:59 09/01/19 24 09/02/2023 LIPID PANEL cholesterol, total 175 mg/dL 100-19 9 Not Available [facility] ([facility]) [address] [facility], [place], [address], 09/02/2023 11:15:38 09/01/19 24 09/02/2023 LIPID PANEL triglyceride s 199 mg/dL 0-149 above high normal Not Available [facility] ([facility]) [address] [place], [address], 09/02/2023 11:15:38 09/01/19 24 09/02/2023 LIPID PANEL HDL cholesterol 32 mg/dL >39 below low normal Not Available [facility] ([facility]) [address] [facility], [place], [address], 09/02/2023 11:15:38 09/01/19 24 09/02/2023 LIPID PANEL VLDL cholesterol amy 35 mg/dL 5-40 Not Available [facility] ([facility]) [address] [place], [address], 09/02/2023 11:15:38 09/01/19 24 09/02/2023 LIPID PANEL LDL chol calc ([facility]) 108 mg/dL 0-99 above high normal Not Available [facility] ([facility]) [address] [place], [address], 09/02/2023 11:15:38 09/01/19 24 09/02/2023 CBC WITH DIFFE RENTI AL/PL ATELE T WBC 10.4 x10e3 /uL 3.4-10 .8 Not Available [facility] ([facility]) [address] [place], [address], 09/02/2023 11:15:39 09/01/19 24 09/02/2023 CBC WITH DIFFE RENTI AL/PL ATELE T RBC 4.78 x10e6 /uL 3.77-5 .28 Not Available [facility] ([facility]) [address] [place], [address], 09/02/2023 11:15:39 09/01/19 24 09/02/2023 CBC WITH DIFFE RENTI AL/PL ATELE T hemoglobin 13.6 g/dL 11.1-1 5.9 Not Available [facility] ([facility]) [address] [facility], [place], [address], 09/02/2023 11:15:39 09/01/19 24 09/02/2023 CBC WITH DIFFE RENTI AL/PL ATELE T hematocrit 40.7 % 34.0-4 6.6 Not Available [facility] ([facility]) [address] [facility], [place], [address], 09/02/2023 11:15:39 09/01/19 24 09/02/2023 CBC WITH DIFFE RENTI AL/PL ATELE T MCV 85 fL 79-97 Not Available [facility] ([facility]) [address] [facility], [place], [address], 09/02/2023 11:15:39 09/01/19 24 09/02/2023 CBC WITH DIFFE RENTI AL/PL ATELE T MCH 28.5 pg 26.6-3 3.0 Not Available [facility] ([facility]) [address] [facility], [place], [address], 09/02/2023 11:15:39 09/01/19 24 09/02/2023 CBC WITH DIFFE RENTI AL/PL ATELE T MCHC 33.4 g/dL 31.5-3 5.7 Not Available [facility] ([facility]) [address] [place], [address], 09/02/2023 11:15:39 09/01/19 24 09/02/2023 CBC WITH DIFFE RENTI AL/PL ATELE T RDW 12.6 % 11.7-1 5.4 Not Available [facility] ([facility]) [address] [place], [address], 09/02/2023 11:15:39 09/01/19 24 09/02/2023 CBC WITH DIFFE RENTI AL/PL ATELE T platelets 404 x10e3 /uL 150-45 0 Not Available [facility] ([facility]) [address] [facility], [place], [address], 09/02/2023 11:15:39 09/01/19 24 09/02/2023 CBC WITH DIFFE RENTI AL/PL ATELE T neutrophils 60 % notest ab. Not Available [facility] ([facility]) [address] [facility], [place], [address], 09/02/2023 11:15:39 09/01/19 24 09/02/2023 CBC WITH DIFFE RENTI AL/PL ATELE T lymphs 32 % notest ab. Not Available [facility] ([facility]) [address] [facility], [place], [address], 09/02/2023 11:15:39 09/01/19 24 09/02/2023 CBC WITH DIFFE RENTI AL/PL ATELE T monocytes 6 % notest ab. Not Available [facility] ([facility]) [address] [facility], [place], [address], 09/02/2023 11:15:39 09/01/19 24 09/02/2023 CBC WITH DIFFE RENTI AL/PL ATELE T eos 1 % notest ab. Not Available [facility] ([facility]) [address] [facility], [place], [address], 09/02/2023 11:15:39 09/01/19 24 09/02/2023 CBC WITH DIFFE RENTI AL/PL ATELE T basos 0 % notest ab. Not Available [facility] ([facility]) [address] [facility], [place], [address], 09/02/2023 11:15:39 09/01/19 24 09/02/2023 CBC WITH DIFFE RENTI AL/PL ATELE T neutrophils (absolute) 6.2 x10e3 /uL 1.4-7. 0 Not Available [facility] ([facility]) [address] [facility], [place], [address], 09/02/2023 11:15:39 09/01/19 24 09/02/2023 CBC WITH DIFFE RENTI AL/PL ATELE T lymphs (absolute) 3.4 x10e3 /uL 0.7-3. 1 above high normal Not Available [facility] ([facility]) [address] [facility], [place], [address], 09/02/2023 11:15:39 09/01/19 24 09/02/2023 CBC WITH DIFFE RENTI AL/PL ATELE T monocytes(ab solute) 0.6 x10e3 /uL 0.1-0. 9 Not Available [facility] ([facility]) [address] [facility], [place], [address], 09/02/2023 11:15:39 09/01/19 24 09/02/2023 CBC WITH DIFFE RENTI AL/PL ATELE T eos (absolute) 0.1 x10e3 /uL 0.0-0. 4 Not Available [facility] ([facility]) [address] [facility], [place], [address], 09/02/2023 11:15:39 09/01/19 24 09/02/2023 CBC WITH DIFFE RENTI AL/PL ATELE T baso (absolute) 0.0 x10e3 /uL 0.0-0. 2 Not Available [facility] ([facility]) [address] [place], [address], 09/02/2023 11:15:39 09/01/19 24 09/02/2023 CBC WITH DIFFE RENTI AL/PL ATELE T immature granulocytes 1 % notest ab. Not Available [facility] ([facility]) [address] [facility], [place], [address], 09/02/2023 11:15:39 09/01/19 24 09/02/2023 CBC WITH DIFFE RENTI AL/PL ATELE T immature grans (abs) 0.1 x10e3 /uL 0.0-0. 1 Not Available [facility] ([facility]) [address] [facility], [place], [address], 09/02/2023 11:15:39 09/01/19 24 09/02/2023 PRESTON+L IPASE amylase 35 U/L 31-110 Not Available [facility] ([facility]) [address] [facility], [place], [address], 09/02/2023 11:15:40 09/01/19 24 09/02/2023 PRESTON+L IPASE lipase 29 U/L 14-72 Not Available [facility] ([facility]) [address] [place], [address], 09/02/2023 11:15:40 09/03/19 24 09/03/2023 pregn eddie test, urine HCG negati ve Not Available In-Office Order Internal Use Only DO Not Attach Compendium DO Not Attach Compendium, Do Not Delete/merge, [id number] 09/03/2023 12:24:53 Result Notes None recorded. Problems Name Problem SNOMED Code Status Onset Date Resolution Date Notes Provider Name and Address Organization Details Recorded Time Multiple environm ental allergie s Active 2017 BRIGIDO Wolf, [place] - [facility] 2 12:48:51 Hypergly cemia 80024995 Completed 201707/02/2018 Oscar Chavarria null, [place] - [facility] 9 11:03:02 Psoriasi s of scalp 467737958 Completed 201702/04/2019 Suzie Arevalo RN [place], [place] [facility] 9 11:06:18 Uncontro lled type 2 diabetes mellitus 162002444 Active 2017 BRIGIDO [place], [place] - [facility] 2 12:48:41 Mixed hyperlip idemia 116532458 Active 2018 Suzie Arevalo RN [place] - [facility] 2 12:49:13 Body mass index 40+ - severely obese 058115312 Completed 201811/01/2021 Removal Reason: better [facility] Attn: Accountin g,[address] [facility], [place], [address], [place] - [facility] 3 13:06:10 Generali zed anxiety disorder 90640841 Active 2019 Chuck Craig [facility] Attn: Accountin g,[address] [facility], [place], [address], [place] [facility] 2 11:21:19 Vitamin D deficien cy 55774268 Active 2021 Chuck Craig [facility] Attn: Accountin g,[address] [facility], [place], [address], [place] [facility] 2 11:21:19 Body mass index 40+ - severely obese 066371075 Completed 202105/06/2022 Chuck Craig [facility] Attn: Accountin g,[address] [facility], [place], [address], [place] - [facility] 3 13:06:10 Hyperpig mentatio n of skin 77619223 Active 2021 Chuck Craig [facility] Attn: Accountin g,[address] [place], [address], [place] [facility] 3 13:05:54 Allergy to fish 871763353 Active 2021 Chuck Craig [facility] Attn: Accountin g,[address] [place], [address], [place] [facility] 3 13:05:54 Body mass index 30+ - obesity 828816674 Active 2021 Chuck Craig [facility] Attn: Accountin g,[address] [place], [address], [place] - [facility] 3 13:05:54 Multiple skin tags on neck 717568243 Completed 202205/06/2022 Suzie Areval[place] [facility] 3 12:10:07 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 868913256 Active 2022 [facility] Attn: Accountin g,[address], [place], [address], [place] - [facility] 3 13:05:54 Obesity 233207537 Active 2022 CHU [facility]ancockBRENNEN Attn: Accountin g,[address], [place], [address], [place] [facility] 3 12:14:20 Excess pannicul us of abdomen 66216626395 01 Active 2022 [facility] Attn: Accountin g,[address], [place], [address], [place] [facility] 3 12:14:13 Erythema dyschrom icum perstans 34293734 Active 2022 [facility] Attn: Accountin g,[address], [place], [address], [place] [facility] 4 15:11:19 Steatoti c liver disease 543335789 Active 2022 [facility] Attn: Accountin g,[address], [place], [address], [place] [facility] 4 15:11:19 Abnormal liver function 94272828 Completed 202309/03/2023 Removal Reason: resolved for now LAURA Hancock Attn: Accountin g,[address], [place], [address], [place] [facility] 4 13:04:06 Inguinal lymphade nopathy 433190159 Active 2023 Chuck Craig [facility] Attn: Nadege aponet,[address] [facility], [place], [address], [place] [facility] 4 15:11:19 Cholelit hiasis without obstruct ion 75115618 Active 2023 Chuck Craig [facility] Attn: Nadege aponte,[address] [facility], [place], [address], [place] [facility] 4 15:11:19 Cystic acne 91543974 Active 2023 Chuck Craig [facility] Attn: Nadege aponte,[address] [facility], [place], [address], [place] [facility] 4 15:11:19 Right upper quadrant pain 345844534 Active 2023 Chuck Craig [facility] Attn: Nadege aponte,[address] [facility], [place], [address], [place] [facility] 4 12:47:31 Anxiety 57174766 Active 2023 Chuck Craig [facility] Attn: Nadege aponte,[address] [facility], [place], [address], [place] [facility] 4 13:13:00 Impaired glucose toleranc e 7668374 Completed 10/17/2016 MCKAY Hidal[place] [facility] 7 16:17:03 Acute pharyngi tis 186147920 Completed 06/08/2015 Suzie Areval[place] [facility] 6 12:45:07 Morbid obesity 953347777 Completed 02/04/2019 Suzie Areval[place] [facility] 9 11:06:43 Allergic rhinitis 19306830 Completed 03/05/2018 Chuck Craig [facility] Attn: Nadege aponte,[address] [facility], [place], [address], [place] [facility] 8 13:06:06 Venous varices 701808752 Active BRIGIDO Wolf, [place] - [facility] 2 12:49:21 Hyperlip idemia 41904324 Completed 03/05/2018 Suzie Arevalo RN null, [place] - [facility] 8 11:58:13 Backache 844260638 Completed 03/05/2018 BRIGIDO [place], [place] - [facility] 8 11:57:58 Chronic dermatit is 73372196 Active BRIGIDO Wolf, [place] - [facility] 2 12:48:32 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 9 11:06:24 Problem Notes None recorded. Procedures Surgical History Date Name Laterality Status Provider Name and Address Organization Details Recorded Time 05/02/19 23 Skin Tag Removal completed LAURA Hancock Attn: Accounting,[address] [place], [address], [facility] - [facility] 05/02/2022 16:42:03 04/25/19 23 [...] Name and Address Organization Details Recorded Time 476064 lisinopri l medicatio n flushing moderate Not available 09/16/20192019 67717 RxNorm Chuck Craig, [facility]- Attn: Nadege aponte,[address], [place], [address], [facility] - [facility] 0 12:40:39 Medications Name [...] Not Available Not Available [employer] Herrera 2 [place] 09/06 completed Not Available Not Available Not Available Trulicity 3 mg/0.5 mL subcutane ous pen injector INJECT 1 SYRINGE SUBCUTAN EOUSLY ONCE A WEEK 04/23 completed Not Available Not Available Not Available Ozempic 1 mg/dose (4 mg/3 mL) subcutane ous pen injector 08/08 completed [facility] prior auth form Not Available Not Available [...] Last Updated DateTime 160.02 cm 37.2 kg/m2 68563.4 g 97.6 [degF] 85 /min 116 mm[Hg] 75 mm[Hg] Suzie Arevalo RN [facility] 4 12:45:12 Date Recorded Body height Body mass index (BMI) Body weight Heart rate Body temperature Systolic blood pressure Diastolic blood pressure Provider Name and Address Organization Details Last Updated DateTime 4 160.02 cm 36.4 kg/m2 23009.2 4 g 79 /min 98 [degF] 112 mm[Hg] 75 mm[Hg] Suzie Arevalo RN [facility] 4 14:58:01 Date Recorded Body height Body mass index (BMI) Body weight Heart rate Body temperature Systolic blood pressure Diastolic blood pressure Provider Name and Address Organization Details Last Updated DateTime 4 160.02 cm 35.1 kg/m2 19032.2 9 g 74 /min 97.6 [degF] 101 mm[Hg] 69 mm[Hg] Suzie Arevalo RN [facility] 4 12:36:24 Date Recorded Body height Body mass index (BMI) Body weight Provider Name and Address Organization Details Last Updated DateTime 02/05/2024 160.02 cm 34.7 kg/m2 33245.1 g Suzie Arevalo RN [facility] 02/05/2024 12:46:27 Social History Question Answer Notes LastModified by Organizat ion Details LastModified Time Tobacco Smoking Status Never Smoker [facility] 04/06[facility]2015 11:08:40 Do You Have An [...] Or Recreational Drugs Have You Used? Krishnadebbie [email or web address] Information not available 10/29/2016 Education 2 Year [...] Are you currently employed? Yes [facility] Information not available 11/30/2020 Are you able [...] anxious, or unable to sleep at night)? [id number] Information not available 02/06/2022 Family History Relationship [...] Y Muscle, Joint, or Bone Problems Y High Cholesterol Y Allergies Y Gynecological History Statement/Question Response [...] virus, quadrivalent, PF 9 completed Not Available [facility] 05/07/2019 02:39:21 Influenza, split virus, quadrivalent, PF 5 completed Suzie Arevalo RN null, [facility] 04/06/2015 11:08:40 Tdap 5 completed Yasmeen Ny null, [facility] 06/08/2015 11:20:28 Influenza, split virus, quadrivalent, preservative 6 completed Suzie Arevalo RN null, [facility] 02/08/2016 13:10:18 HPV9 3 completed Chuck Craig [facility] Attn: Accounting,[address] [place], [address], [facility] 03/09/2023 16:14:18 HPV9 4 completed Suzie Arevalo RN null, [facility] 04/21/2023 15:54:10 HPV9 4 completed Chuck Craig [facility] Attn: Accounting,[address] [place], [address], [facility] 09/03/2023 17:55:54 Influenza, split virus, quadrivalent, preservative 7 completed Suzie Arevalo RN null, [facility] 01/02/2017 13:24:13 Past Encounters Encounter ID Performer Location Encounter Start Date Encounter Closed Date Diagnosis/Indication Diagnosis SNOMED-CT Code Diagnosis ICD10 Code Diagnosis Note [id number] Chuck Craig [facility] [address] [place] [address] 04/06/2015 10:47:18 04/10/2015 12:01:25 Acute pharyngitis 966682806 J02.9 [id number] Chuck Craig [facility] [address] [place] [address] 06/08/2015 11:16:42 06/12/2015 13:29:41 Adult health examination 291435878 Z00.00 Morbid obesity 153895796 E66.01 Allergic rhinitis 423522 04 J30.9 Venous varices 922993719 I83.92 [id number] [place] [address] [place] [address] 4 06/11/2015 10:14:51 06/12/2015 13:43:16 Morbid obesity 479197180 E66.01 [id number] [place] [address] [place] [address] 4 08/03/2015 10:08:39 08/06/2015 17:57:10 Morbid obesity 437016618 E66.01 13# weight loss in 2 months Diet, weight loss and exercise Monitor for adverse side effects Hyperlipidemia 53518724 E78.5 Discussed test results Increase exercise to 50-60 minutes daily 5-6 times per week [id number] [place] [address] [place] [address] 4 10/08/2015 12:43:54 10/16/2015 13:10:23 Morbid obesity 957836391 E66.01 7# weight gain in 2 months Diet, weight loss and exercise Monitor for adverse side effects Backache 164857577 M54.9 Hyperlipidemia 37845556 E78.5 Discussed test results Increase exercise to 50-60 minutes daily 5-6 times per week [id number] Salas Velasquez MD [place] [address] [place] [address] 4 11/28/2015 12:37:02 12/10/2015 11:50:21 Morbid obesity 353212399 E66.01 will give Rx for 1 more month if no weight loss will stop Diet, weight loss and exercise Monitor for adverse side effects Chronic dermatitis 81359 007 L30.9 Asteatosis cutis 0631839 0 L85.3 Backache 482925389 M54.9 [id number] [facility] [address] [place] [address] 4 02/08/2016 12:33:25 02/18/2016 13:08:13 Morbid obesity 982303438 E66.01 will give Rx for 1 more month if no weight loss will stop Diet, weight loss and exercise Monitor for adverse side effects Chronic dermatitis 81144 007 L30.9 keep appointmen t with Derm Hyperlipidemia 65739572 E78.5 Increase exercise to 50-60 minutes daily 5-6 times per week Asteatosis cutis 6928451 0 L85.3 Cetaphil products Backache 929143416 M54.9 get xrays done DAIN/stret lisandra/exer cise/weigh t loss Rhinitis 25926146 J00 use Zyrtec daily [id number] [facility] [address] 4 02/11/2016 12:20:28 02/18/2016 13:29:38 Hyperlipidemia 70022386 E78.5 Increase exercise to 50-60 minutes daily 5-6 times per week [id number] [facility] [address] [place] [address] 4 02/20/2016 16:54:19 02/29/2016 12:13:11 Eruption 205282303 R21 OTC ZYRTEC 10mg once daily allergen panel + food mix (seafoods) , environmen sven allergens, perennial grass Multiple environmental allergies 891182235 T78.49XD Allergy to seafood 53017 001 Z91.627 [id number] [facility] [address] [place] [address] 4 03/12/2016 11:55:30 03/19/2016 11:09:10 Morbid obesity 932616927 E66.01 6 pound weight loss since a month ago Diet, weight loss and exercise Monitor for adverse side effects Asteatosis cutis 0380438 0 L85.3 Cetaphil products Eruption 125625654 R21 OTC ZYRTEC 10mg once daily allergen panel + food mix (seafoods) , environmen sven allergens, perennial grass Prediabetes 879132697 R7 3.03 Hyperlipidemia 98299882 E78.5 Increase exercise to 50-60 minutes daily 5-6 times per week [id number] Salas Velasquez MD [facility] [address], [place] [address] 04/09/2016 12:13:53 04/16/2016 17:41:34 Morbid obesity 874649281 E66.01 6 pound 1/4 ounce weight loss since a month ago Diet, weight loss and exercise Monitor for adverse side effects As its the Holidays and patient is not having any side effects will give Rx this month--the n 3 months off Prediabetes 408673720 R7 3.[id number] [facility] [address] [address] [address] 04/18/2016 10:31:37 04/24/2016 10:54:52 Acute vaginitis 16453667 N76.0 Increase Doxyciclin e 100mg once daily to twice daily for the next seven days to cover UTI then return to once daily dosing Dysuria 09144232 R30.0 Prediabetes 897671386 R7 3.03 [id number] Salas [address] MD [facility] [address] [place] [address] 06/09/2016 10:56:27 06/17/2016 10:08:56 Acute conjunctivitis 33259401 H10.31 [id number] Salas Velasquez MD [facility] [address] [place] [address] 4 06/30/2016 12:01:19 07/02/2016 17:53:15 Chronic dermatitis 80339254 L30.9 Seen by derm 02/2016 given about same treatment she had received from this office. SHe wishes to continue treatment. Requesting refills. Asteatosis cutis 8182906 0 L85.3 Cetaphil products Morbid obesity 995466306 E66.01 No weight loss since last visit Diet, weight loss and exercise Backache 562874070 M54.9 Xray shows DJD/stretc gus/exerc ise/weight loss Pain in right knee 41103 15125 21343 M25.561 will send for PT Psoriasis of scalp 11832 8008 L40.9 [id number] Chuck Craig [facility] [address] [place] [address] 08/20/2016 12:05:58 08/27/2016 17:50:49 Morbid obesity 574283577 E66.01 11 pound weight loss since last visit Diet, weight loss and exercise Hyperlipidemia 23779780 E78.5 Increase exercise to 50-60 minutes daily 5-6 times per week Chronic dermatitis 90156 007 L30.9 Seen by derm 02/2016 given about same treatment she had received from this office. SHe wishes to continue treatment. Requesting refills. Impaired g lucose tolerance 7621168 R73.03 Prediabetes 274660929 R7 3.03 Increased blood pressure 91245568 R03.0 monitor blood pressure Have RN check b/p in 1 month avoid salt weight loss encouraged Allergic rhinitis 311982 04 J30.1 zyrtec samples Pain in right knee 58258 03916 32199 M25.561 Patient to continue PT exercises at home Patient continues to have symptoms despite NSAIDS/PT for 3 1/2 months--kn ee xray essentiall y normal showed minor swelling Take Meloxicam daily for the next couple of months for knee inflammati on [id number] Salas Velasquez MD 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 surgical referral Lipoma of upper arm 1889 84652 D17.21 D17.22 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 99054267 I83.10 weight loss elevation of legs support hose referral to surgeon for sclerother apy prn [id number] Eliseo Vigil MD [facility] [address] [place] [address] 10/29/2016 10:37:36 11/04/2016 13:11:34 Lipoma of skin and subcutaneous tissue (excluding face) 657932064 D17.30 [id number] [facility] [address] [place] [address] 01/02/2017 12:13:06 01/10/2017 22:13:03 Morbid obesity 500852913 E66.01 5bpound weight gain since last visit Diet, weight loss and exercise Hyperlipidemia 32001694 E78.5 Increase exercise to 50-60 minutes daily 5-6 times per week Try [place] 3 FA Chronic dermatitis 04183 007 L30.9 Seen by derm 02/2016 given about same treatment she had received from this office. SHe wishes to continue treatment. Requesting refills. Prediabetes 223765086 R7 3.03 will repeat labs at next visit Allergic rhinitis 275149 04 J30.1 Cystic acne 92127157 L70 .0 drink a lot of water with this medication and daily banana Edema of l ower extremity 426863918 R60.0 recommend compressio n hose [id number] Salas Velasquez MD [facility] [address] [place] [address] 03/05/2018 11:48:06 03/16/2018 13:07:08 Adult health examination 461907011 Z00.00 Upper resp iratory infection 18640213 J06.9 Venous varices 043783960 I83.92 Morbid obesity 774373958 E66.01 6# weight loss since last visit Diet, weight loss and exercise Chronic dermatitis 44414 007 L30.9 Seen by derm 02/2016 given about same treatment she had received from this office. SHe wishes to continue treatment. Requesting refills. Dyslipidemia 580487129 E 78.5 Psoriasis of scalp 45687 8008 L40.9 Hyperglycemia 44729295 R 73.9 accu check random 240 fasting Acute fron sven sinusitis 09147482 J01.10 Multiple environmental allergies 103675874 T78.49XD Chronic back pain 191990 002 G89.29 Headache 43013437 R51 suspect migraines Uncontroll ed type 2 diabetes mellitus 189344924 E11.65 [id number] Sal[address] MD [facility] [address] [place] [address] 07/02/2018 10:45:47 07/02/2018 17:36:52 Uncontrolled type 2 diabetes mellitus 016989610 E11.65 Acute fron sven sinusitis 28931209 J01.10 Multiple environmental allergies 455912103 T78.49XD continue otc Psoriasis of scalp 51514 8008 L40.9 Chronic dermatitis 57989 007 L30.9 Seen by derm 02/2016 given about same treatment she had received from this office. SHe wishes to continue treatment. Requesting refills. Prehypertension 71366841 9 R03.0 reduce salt in your diet 50-60 minutes of aerobic physical activity 5-6 time per week lose weight 5-20% of current body weight if B/P remains elevated will start B/P meds Body mass index 40+ - severely obese 777684763 Z68.41 bmi 42 Mixed hyperlipidemia 267 333414 E78.2 Avoid all breads, potatoes, cereal, pasta, rice, margarine, refined sugars, milk yogurt, ice cream, juices, soda (including diet), beer, and manmade or manufactur ed desserts. Enjoy steak, fish, chicken (no skin), pork, butter, vegetables , beans, nuts, whole eggs, cheese (low fat or skim), cream in your coffee. Depression screening 171 216866 Z13.31 negative [id number] Salas Velasquez MD [facility] [address] [place] [address] 4 01/13/2019 12:45:24 01/13/2019 18:11:52 Acute frontal sinusitis 84757921 J01.10 Cough 37844809 R05 Multiple environmental allergies 320121185 T78.49XD get otc antihistam ine and start [id number] Salas Velasquez MD [facility] [address] [place] [address] 4 02/04/2019 10:55:51 02/04/2019 17:01:53 Uncontrolled type 2 diabetes mellitus 106806596 E11.65 uncontroll edfasting 026XN5L 9.6will continue Metformin bid started at [place] e/r Mixed hyperlipidemia 267 384112 E78.2 Avoid all breads, potatoes, cereal, pasta, rice, margarine, refined sugars, milk yogurt, ice cream, juices, soda (including diet), beer, and manmade or manufactur ed desserts. Enjoy steak, fish, chicken (no skin), pork, butter, vegetables , beans, nuts, whole eggs, cheese (low fat or skim), cream in your coffee. Multiple environmental allergies 612838203 T78.49XD continue otc Chronic dermatitis 71725 007 L30.9 Seen by derm 02/2016 given about same treatment she had received from this office. SHe wishes to continue treatment. Requesting refills. Prehypertension 69664603 9 R03.0 reduce salt in your diet 50-60 minutes of aerobic physical activity 5-6 time per week lose weight 5-20% of current body weight will start Lisinopril 2.5mg for kidney protection today Body mass index 30+ - obesity 719351766 Z68.39 BMI 39Healthy body weight 105-135 Administra tion of influenza vaccine 87427804 Z23 [id number] Salas Velasquez MD [facility] [address] [place] [address] 08/17/2019 11:30:26 08/18/2019 11:27:38 Uncontrolled type 2 diabetes mellitus 583819624 E11.65 uncontroll edshe forgets to take evening lkasCW3S 8.3will change Metformin 1000mg bid to Metformin ER 1000mg (2) Mixed hyperlipidemia 267 664668 E78.2 Avoid all breads, potatoes, cereal, pasta, rice, margarine, refined sugars, milk yogurt, ice cream, juices, soda (including diet), beer, and manmade or manufactur ed desserts. Enjoy steak, fish, chicken (no skin), pork, butter, vegetables , beans, nuts, whole eggs, cheese (low fat or skim), cream in your coffee. Multiple environmental allergies 223969745 T78.49XD continue otc Body mass index 30+ - obesity 945947541 Z68.39 BMI 39Healthy body weight 105-135 Chronic dermatitis 71409 007 L30.9 Seen by derm 02/2016 given about same treatment she had received from this office. SHe wishes to continue treatment. Requesting refills. Prehypertension 45399535 9 R03.0 reduce salt in your diet 50-60 minutes of aerobic physical activity 5-6 time per week lose weight 5-20% of current body weight will start Lisinopril 2.5mg for kidney protection today Headache 69210696 R51 suspect migrainesC T of Head 01/2019 normal Anxiety 50701876 F41.9 psychother apist listauto relaxation exerciseRX for prn use Acute fron sven sinusitis 13928128 J01.10 [id number] Salas Velasquez MD 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 [address] [place] [address] 10/14/2019 10:34:20 10/17/2019 06:38:07 Generalized anxiety disorder 28041532 F41.1 recommend psychother apist visits-pt will check with her 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 wants to flower buncher or picker Rx at officepati ent fees better agrees to increasing dose of Escitalopr am 10mg to 20mg elliottysluke is aware will not refill klonopin for ongoing use Body mass index 40+ - severely obese 006377819 Z68.41 bmi 42 [id number] Salas Vel[address]quez MD [facility] [address] [place] [address] 10/24/2019 12:45:53 10/25/2019 06:47:00 Acute sinusitis 30735952 J01.90 [id number] Salas Velasquez MD [facility] [address] [place] [address] 11/18/2019 14:10:09 11/21/2019 07:27:44 Uncontrolled type 2 diabetes mellitus 664176329 E11.65 uncontroll edshe forgets to take evening doseLast HA1C 8.3will continue Metformin ER 1000mg (2) Prehypertension 12008641 9 R03.0 reduce salt in your diet 50-60 minutes of aerobic physical activity 5-6 time per week lose weight 5-20% of current body weight patient stooped Lisinopril 2.5mg for kidney protection about a month ago-had reaction Mixed hyperlipidemia 267 295887 E78.2 Avoid all breads, potatoes, cereal, pasta, rice, margarine, refined sugars, milk yogurt, ice cream, juices, soda (including diet), beer, and manmade or manufactur ed desserts. Enjoy steak, fish, chicken (no skin), pork, butter, vegetables , beans, nuts, whole eggs, cheese (low fat or skim), cream in your coffee. Multiple environmental allergies 423805530 T78.49XD continue otc Body mass index 30+ - obesity 257737107 Z68.39 BMI 39Healthy body weight 105-135 Chronic dermatitis 91508 007 L30.9 Seen by derm 02/2016 given about same treatment she had received from this office. SHe wishes to continue treatment. Still has at home aware not to use in large quantities Headache 50105127 R51 suspect migrainesC T of Head 01/2019 normal Generalize d anxiety disorder 70348928 F41.1 recommend psychother apist visits-pt will check with her job on thisPatien t stopped both Escitalopr am and Clonazepam two weeks ago when she found out she was 7 [id number] Salas Vel[address]quez MD [facility] [address] [place] [address] 06/06/2020 12:16:58 06/07/2020 14:23:37 Mixed hyperlipidemia 002734341 E78.2 Avoid all breads, potatoes, cereal, pasta, rice, margarine, refined sugars, milk yogurt, ice cream, juices, soda (including diet), beer, and manmade or manufactur ed desserts. Enjoy steak, fish, chicken (no skin), pork, butter, vegetables , beans, nuts, whole eggs, cheese (low fat or skim), cream in your coffee. Body mass index 40+ - severely obese 284712783 Z68.41 bmi 42 Prehypertension 19488602 9 R03.0 reduce salt in your diet 50-60 minutes of aerobic physical activity 5-6 time per week lose weight 5-20% of current body weight Chronic dermatitis 40481 007 L30.9 Seen by derm 02/2016 given about same treatment she had received from this office. SHe wishes to continue treatment. Has refills. Stable at present time. Uncontroll ed type 2 diabetes mellitus 849816016 E11.65 uncontroll edshe forgets to take evening doseLast HA1C 8.3will restart Metformin ER 1000mg (2) [id number] Salas Velasquez MD [facility] [address] [place] [address] 07/06/2020 15:11:23 07/09/2020 14:05:28 Uncontrolled type 2 diabetes mellitus 306420643 E11.65 uncontroll edshe forgets to take evening doseLast HA1C 8.3will restart Metformin ER 1000mg (2) Mixed hyperlipidemia 267 205394 E78.2 Avoid all breads, potatoes, cereal, pasta, rice, margarine, refined sugars, milk yogurt, ice cream, juices, soda (including diet), beer, and manmade or manufactur ed desserts. Enjoy steak, fish, chicken (no skin), pork, butter, vegetables , beans, nuts, whole eggs, cheese (low fat or skim), cream in your coffee. [id number] Salas Velasquez MD [facility] [address] [place] [address] 08/31/2020 16:16:37 09/03/2020 16:30:16 Uncontrolled type 2 diabetes mellitus 985018347 E11.65 uncontroll ed she forgets to take evening dose Last HA1C 6.4 on 07/06/2020 will continue Metformin ER 1000mg (2) will add Tradjenta 5mg daily pt is not BF Mixed hyperlipidemia 267 500388 E78.2 07/06/2020 [id number] Trig 441 HDL 32 LDL 150 Avoid all breads, potatoes, cereal, pasta, rice, margarine, refined sugars, milk yogurt, ice cream, juices, soda (including diet), beer, and manmade or manufactur ed desserts. Enjoy steak, fish, chicken (no skin), pork, butter, vegetables , beans, nuts, whole eggs, cheese (low fat or skim), cream in your coffee. Body mass index 40+ - severely obese 062844023 Z68.41 bmi 42 Prehypertension 40727164 9 R03.0 reduce salt in your diet 50-60 minutes of aerobic physical activity 5-6 time per week lose weight 5-20% of current body weight Chronic dermatitis 17734 007 L30.9 Seen by derm 02/2016 given about same treatment she had received from this office. SHe wishes to continue treatment. Has refills. Stable at present time. 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 [id number] Salas Velasquez MD [facility] [address] [place] [address] 11/30/2020 12:06:22 12/05/2020 06:56:56 Uncontrolled type 2 diabetes mellitus 982817230 E11.65 she forgets to take evening dose Last HA1C 6.4 on 07/06/2020 will continue Metformin ER 1000mg (2)Jardian ce was not coveredPat ient has been using Humulin N NPH 25 units BIDBS are better 110-160 range Mixed hyperlipidemia 267 402623 E78.2 07/06/2020 [id number] Trig 441 HDL 32 LDL 150 Avoid all breads, potatoes, cereal, pasta, rice, margarine, refined sugars, milk yogurt, ice cream, juices, soda (including diet), beer, and manmade or manufactur ed desserts. Enjoy steak, fish, chicken (no skin), pork, butter, vegetables , beans, nuts, whole eggs, cheese (low fat or skim), cream in your coffee. Body mass index 40+ - severely obese 260684158 Z68.41 bmi 42 Prehypertension 35604939 9 R03.0 reduce salt in your diet 50-60 minutes of aerobic physical activity 5-6 time per week lose weight 5-20% of current body weight Chronic dermatitis 54448 007 L30.9 Seen by derm 02/2016 given about same treatment she had received from this office. SHe wishes to continue treatment. Has refills. Stable at present time. Depression screening 171 Z13.31 positive patient on sertraine 50mg daily started per her OB/gynneed s refills of sertraline from this office as she no longer seeing OB Anxiety 68972333 F41.9 psychother apist listauto relaxation exerciseRX for prn use Psoriasis of scalp 73785 8008 L40.9 [id number] Salas [address]quez MD [facility] [address] [place] [address] 12/17/2020 12:10:32 12/18/2020 06:02:04 COVID-19 936844021 U07.1 [id number] Salas Vel[address]quez MD [facility] [address] [place] [address] 07/25/2021 16:02:46 07/26/2021 15:40:58 Uncontrolled type 2 diabetes mellitus 653963077 E11.65 HA1C 8.5 [id number] 6.4 on 07/06/2020 will continue Metformin 1000mg 1 po bidwill add Ozempic 0.25mgMoni tor bs readings before and after meals (2Hrs) keep log Mixed hyperlipidemia 267 135623 E78.2 07/06/2020 [id number] Trig 441 HDL 32 LDL 150 Avoid all breads, potatoes, cereal, pasta, rice, margarine, refined sugars, milk yogurt, ice cream, juices, soda (including diet), beer, and manmade or manufactur ed desserts. Enjoy steak, fish, chicken (no skin), pork, butter, vegetables , beans, nuts, whole eggs, cheese (low fat or skim), cream in your coffee. Generalize d anxiety disorder 85944861 F41.1 ANDIE-7 Will re-start treatmentE scitalopra m 20mg dailyKlono pin for severe anxiety symptomsre commend psychother apist visits-amy l with problems or rthoughts of harming self Multiple environmental allergies 973034270 T78.49XD continue otc antihistam ine Body mass index 40+ - severely obese 483540008 Z68.41 bmi 37.2 Healthy Weight: 5'3= 107-140 lbs Chronic dermatitis 75434 007 L30.9 Seen by derm 02/2016 given about same treatment she had received from this office. SHe wishes to continue treatment. Depression screening 171 732188 Z13.31 negative Hyperpigme ntation of skin 37557649 L81.9 Furuncle of buttock 1243 0003 L02.32 [id number] [address] [facility] [address] [place] [address] 07/26/2021 10:25:41 08/12/2021 16:22:57 Uncontrolled type 2 diabetes mellitus 616560045 E11.65 HA1C 8.5 [id number] 6.4 on 07/06/2020 will continue Metformin 1000mg 1 po bidwill add Ozempic 0.25mgMoni tor bs readings before and after meals (2Hrs) keep log Mixed hyperlipidemia 267 695416 E78.2 07/06/2020 [id number] Trig 441 HDL 32 LDL 150 Avoid all breads, potatoes, cereal, pasta, rice, margarine, refined sugars, milk yogurt, ice cream, juices, soda (including diet), beer, and manmade or manufactur ed desserts. Enjoy steak, fish, chicken (no skin), pork, butter, vegetables , beans, nuts, whole eggs, cheese (low fat or skim), cream in your coffee. [id number] Salas Velasquez MD [facility] [address] [place] [address] 09/06/2021 12:40:16 09/09/2021 14:59:34 Generalized anxiety disorder 46503832 F41.1 ANDIE-7 --07/20 1 betterWihui continue treatmentE scitalopra m 20mg dailyKlono pin for severe anxiety symptomsre commend psychother apist visits-amy l with problems or rthoughts of harming self Mixed hyperlipidemia 267 406457 E78.2 07/06/2020 [id number] Trig 441 HDL 32 LDL 150 07/26/2021 [...] try Atorvastat in 20mg daily and LSM [id number] Salas Velasquez MD [facility] [address] [place] [address] 11/01/2021 12:33:34 11/04/2021 11:16:46 Uncontrolled type 2 diabetes mellitus 305642318 E11.65 HA1C 7.HA1C 6.4 on 07/06/2020 will continue Metformin 1000mg 1 po bidwill continue Ozempic 0.25mgMoni tor bs readings before and after meals (2Hrs) keep log Mixed hyperlipidemia 267 384585 E78.2 07/06/2020 [id number] Trig 441 HDL 32 LDL 150 07/26/2021 [...] daily and LSM Generalize d anxiety disorder 30317195 F41.1 ANDIE-7 --/ 1 betterWill continue treatmentE scitalopra m 20mg dailyKlono pin for severe anxiety symptomsre commend psychother apist visits-amy l with problems or thoughts of harming self Multiple environmental allergies 274356567 T78.49XD continue otc antihistam ine Body mass index 40+ - severely obese 747037610 Z68.41 bmi 37.2 Healthy Weight: 5'3= 107-140 lbs Chronic dermatitis 07023 007 L30.9 Seen by derm 02/2016 given about same treatment she had received from this office. SHe wishes to continue treatment. Hyperpigme ntation of skin 79609027 L81.9 continue trilumause daily sunscreen Furuncle of buttock 1243 0003 L02.32 Depression screening 171 618114 Z13.31 negative Cystic acne 70995044 L70 .0 drink a lot of water with this medication and daily banana Fatigue 73707904 R53.83 [id number] Salas [address] MD [facility] [address] [place] [address] 02/06/2022 10:29:05 02/10/2022 14:44:03 Mixed hyperlipidemia 508834245 E78.2 07/06/2020 [id number] Trig 441 HDL 32 LDL 150 07/26/2021 [...] LSM Uncontroll ed type 2 diabetes mellitus 639714909 E11.65 HA1C 7.1HA1C 6.4 on 07/06/2020 will continue Metformin 1000mg 1 po bidIncreas e Ozempic 1mg once weeklyMoni tor bs readings before and after meals (2Hrs) keep log Generalize d anxiety disorder 17037790 F41.1 Will continue treatmentE scitalopra m 20mg dailyKlono pin for severe anxiety symptomsre commend psychother apist visits-amy l with problems or thoughts of harming self Multiple environmental allergies 136355653 T78.49XD igE 645 plus multiple specific environmen sven allergensc ontinue otc antihistam ine Body mass index 40+ - severely obese 389906848 Z68.41 bmi 39Healthy Weight: 5'3= 107-140 lbs Chronic dermatitis 45830 007 L30.9 Seen by derm 02/2016 given about same treatment she had received from this office. SHe wishes to continue treatment. Hyperpigme ntation of skin 79599627 L81.9 continue trilumause daily sunscreen Cystic acne 47791154 L70 .0 drink a lot of water with this medication and daily banana Depression screening 171 007123 Z13.31 PHQ2-9 negative Mental hea lt screening 933327546 Z13.39 ANDIE-7 negative Acute sinusitis 29979966 J01.90 Acute pharyngitis 896983 003 J02.9 Allergy to fish 94492491 2 Z91.013 + allergen profile to fishGets rash [id number] Sunil Hearn MD [facility] [address] [place] [address] 02/24/2022 11:58:05 02/25/2022 13:30:52 Acute urinary tract infection 005616464 N39.0 Body mass index 30+ - obesity 758505333 Z68.39 BMI 38Healthy body weight 105-135 Depression screening 171 686044 Z13.31 PHQ2-9 negative Mental hea lth screening 735299292 Z13.39 ANDIE-7 negative [id number] Salas Velasquez MD [facility] [address] [place] [address] 4 02/27/2022 11:01:08 02/28/2022 11:04:03 Acute pharyngitis 987508044 J02.9 Influenza A virus present 4514118803 08 J09.X2 [id number] Salas Velasquez MD 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 every 6 hrs as necessary Depression screening 171 501100 Z13.31 PHQ2-9 negative Mental hea lth screening 850836268 Z13.39 ANDIE-7 negative [id number] Salas Velasquez MD [facility] [address] [place] [address] 05/06/2022 12:10:55 05/07/2022 12:58:03 Acute bilateral otitis media 526646721 H66.93 Acute ethm oidal sinusitis 63349695 J01.20 Body mass index 30+ - obesity 093063578 Z68.39 BMI 37Healthy body weight 105-135 Depression screening 171 294789 Z13.31 PHQ2-9 negative Mental hea lth screening 110245994 Z13.39 ANDIE-7 negative [id number] Salas Velasquez MD [facility] [address] [place] [address] 06/06/2022 12:29:56 06/09/2022 09:21:50 Uncontrolled type 2 diabetes mellitus 845461087 E11.65 HA1C 7.3 QtcasMQ6F 6.4 on 07/06/2020 will continue Metformin 1000mg 1 po bidIncreas e Ozempic 1mg once weekly to 1.5mg once weeklyMoni tor bs readings before and after meals (2Hrs) keep log Mixed hyperlipidemia 267 738206 E78.2 07/06/2020 [id number] Trig 441 HDL 32 LDL 150 07/26/2021 [...] Atorvastat in 20mg daily and LSM Obesity 723367235 E66.9 BMI 37Healthy body weight 105-135 Body mass index 30+ - obesity 953870199 Z68.39 BMI 37Healthy body weight 105-135 Generalize d anxiety disorder 34848869 F41.1 Will continue treatmentE scitalopra m 20mg dailyKlono pin for severe anxiety symptomsre commend psychother apist visits-amy cindy with problems or thoughts of harming self Chronic dermatitis 13884 007 L30.9 Seen by derm 02/2016 given about same treatment she had received from this office. SHe wishes to continue treatment. Cystic acne 72130459 L70 .0 drink a lot of water with this medication and daily banana Multiple environmental allergies 996382585 T78.49XD igE 645 plus multiple specific environmen sven allergensc ontinue otc antihistam ine Allergy to fish 64012339 2 Z91.013 + allergen profile to fishGets rash Hyperpigme ntation of skin 50575969 L81.9 continue trilumause daily sunscreen Depression screening 171 116904 Z13.31 PHQ2-9 negative Mental [facility] screening 644322564 Z13.39 ANDIE-7 negative Vitamin D deficiency 347 98804 E55.9 Vitamin D 11.3Start Rx Vitamin D2 37535 IU once weekly for 12 weeksonce you complete RX buy otc vitamin D3 1000 IU once daily Candidal intertrigo 2661 73381 B37.2 nystatin Excess morales niculus of abdomen 5420648928 101 E65 Venous varices 765696383 I83.92 weight losselevat e legssuppor t hoseibupro fen prn 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 every 6 hrs as necessary Acute fron sven sinusitis 64894278 J01.10 [id number] Sal[address] MD [facility] [address] [address] 06/13/2022 10:30:08 06/19/2022 09:35:48 Mixed hyperlipidemia 401625172 E78.2 07/06/2020 [id number] Trig 441 HDL 32 LDL 150 07/26/2021 [...] try Atorvastat in 20mg daily and LSM [id number] Salas Velasquez MD [facility] [address], [place] [address] 06/20/2022 11:46:01 06/23/2022 15:03:46 Acute urinary tract infection 208733302 N39.0 UA dip + nitrates Burn of skin 071714571 T 30.0 Body mass index 30+ - obesity 659097741 Z68.39 BMI 37.7Health y body weight 105-537 [id number] Salas Velasquez MD [facility] [address] [place] [address] 08/14/2022 12:22:26 08/15/2022 11:44:01 Obesity 010238818 E66.9 BMI 37.4Health y body weight 105-135 Acute conj unctivitis of left eye 8903446913 59057 H10.32 Depression screening 171 251384 Z13.31 PHQ2-9 negative Mental hea [facility] screening 154563437 Z13.39 ANDIE-7 negative [id number] Salas Velasquez MD 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 [address], [place] [address] 09/23/2022 11:07:35 09/25/2022 13:21:26 Body mass index 30+ - obesity 454301484 Z68.39 BMI 38.3Health y body weight 105-135 Urinary symptoms 8078145 08 R39.9 Microscopic hematuria 19 3141006 R31.29 Depression screening 171 236062 Z13.31 PHQ2-9 negative Mental hea lth screening 851349619 Z13.39 ANDIE-7 negative [id number] Salas Velasquez MD [facility] [address] [place] [address] 10/03/2022 11:55:36 10/07/2022 08:33:38 Mixed hyperlipidemia 542498774 E78.2 07/06/2020 [id number] Trig 441 HDL 32 LDL 150 07/26/2021 [...] LSM Uncontroll ed type 2 diabetes mellitus 529703029 E11.65 HA1C 8.5 [id number] 6.4 on 07/06/2020 will continue Metformin 1000mg 1 po bidcontinu e trulicity but increaseMo nitor bs readings before and after meals (2Hrs) keep log 06/13/2022 BUN 13creat 0.41eGFR 134 Generalize d anxiety disorder 07811375 F41.1 Will continue treatmentE scitalopra m 20mg dailyKlono pin for severe anxiety symptomsre commend psychother apist visits-amy l with problems or thoughts of harming self Obesity 512789301 E66.9 BMI 38.3Health y body weight 105-135 Body mass index 30+ - obesity 393239796 Z68.39 BMI 38.3Health y body weight 105-135 Chronic dermatitis 32747 007 L30.9 Seen by derm 02/2016 given about same treatment she had received from this office. SHe wishes to continue treatment. 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 every 6 hrs as necessary Venous varices 356102062 I83.92 weight losselevat e legssuppor t hoseibupro fen prn Depression screening 171 577813 Z13.31 PHQ2-9 negative [facility] screening 197695967 Z13.39 ANDIE-7 negative [id number] Salas Velasquez MD [facility] [address] [place] [address] 12/11/2022 10:13:00 12/12/2022 13:02:56 Pain in right heel 3274836121 856868 M79.671 Generalize d anxiety disorder 72368915 F41.1 Will continue treatmentE scitalopra m 20mg dailyKlono pin for severe anxiety symptomsre commend psychother apist visits-amy l with problems or thoughts of harming self Body mass index 30+ - obesity 149054900 Z68.39 BMI 38.4Health y body weight 105-614 [id number] Salas Velasquez MD [facility] [address] [place] [address] 03/09/2023 12:30:17 03/18/2023 11:17:40 Urinary symptoms 246364522 R39.9 Active or passive immunization 023587625 Z23 Dysuria 79067779 R30.0 self swab Depression screening 171 665926 Z13.31 PHQ2-9 negative [facility] screening 491881048 Z13.39 ANDIE-7 negative [id number] Salas Velasquez MD [facility] [address], [place] [address] 04/21/2023 12:34:51 04/23/2023 14:28:39 Uncontrolled type 2 diabetes mellitus 407767263 E11.65 HA1C 9.6 worsewill continue Metformin 1000mg 1 po bidstop 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 bs readings before and after meals (2Hrs) keep log 06/13/2022 BUN 13creat 0.41eGFR 134 Generalize d anxiety disorder 66625781 F41.1 Will continue treatmentE scitalopra m 20mg dailyKlono pin for severe anxiety symptomsre commend psychother api visits-amy l with problems or thoughts of harming self Mixed hyperlipidemia 267 249944 E78.2 07/06/2020 [id number] Trig 441 HDL 32 LDL 150 07/26/2021 [...] Atorvastat in 20mg daily and LSM Obesity 179306939 E66.9 BMI 38.8Health y body weight 105-135 Body mass index 30+ - obesity 202966365 Z68.39 BMI 38.8Health y body weight 105-135 Chronic dermatitis 62540 007 L30.9 Seen by derm 02/2016 given about same treatment she had received from this office. SHe wishes to continue treatment. 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 Allergy to fish 92115813 2 Z91.013 + allergen profile to fishGets rash Vitamin D deficiency 347 92107 E55.9 11/01/2021 Vitamin D 11.3 buy otc vitamin D3 1000 IU once daily Hyperpigme ntation of skin 20838870 L81.9 continue trilumause daily sunscreenr eferring to derm Venous varices 339714458 I83.92 weight losselevat e legssuppor t hoseibupro fen prn Depression screening 171 721000 Z13.31 PHQ2-9 negative Mental hea lth screening 081444180 Z13.39 ANDIE-7 negative Active or passive immunization 004848212 Z23 Cholelithi asis without obstruction 52244131 K80.20 wants GB removal Steatotic liver disease 776638885 K76.0 04/15/2023 CT abd/pelvis w/con shows fatty liver, Hepatomega ly, yessica inguinal lymphadeno harmeet, cholelithi asis and R enlarged ovary. Abnormal l iver function 13665250 K76.89 04/15/2023 CT abd/pelvis w/con shows fatty liver, Hepatomega ly, yessica inguinal lymphadeno harmeet, cholelithi asis and R enlarged ovary. Inguinal lymphadenopathy 186038479 R59.0 04/15/2023 CT abd/pelvis w/con shows fatty liver, Hepatomega ly, yessica inguinal lymphadeno harmeet, cholelithi asis and R enlarged ovary. Anxiety 91114031 F41.9 psychother apist listauto relaxation exerciseRX for prn use Acute urin wang tract infection 007003111 N39.0 [id number] Salas Velasquez MD [facility] [address] [place] [address] 05/26/2023 10:56:48 05/29/2023 10:51:17 Urinary symptoms 653431600 R39.9 Dysuria 45648480 R30.0 Depression screening 171 912011 Z13.31 PHQ2-9 negative Mental hea lth screening 179142609 Z13.39 ANDIE-7 negative Postviral cough 67195412 4 R05.3 [id number] Salas Velasquez MD [facility] [address] [place] [address] 08/20/2023 11:47:59 08/24/2023 15:31:00 Mixed hyperlipidemia 873139537 E78.2 07/06/2020 [id number] Trig 441 HDL 32 LDL 150 07/26/2021 [...] LSM Body mass index 30+ - obesity 719749505 Z68.39 BMI 38.3Health y body weight 105-135 Uncontroll ed type 2 diabetes mellitus 420038977 E11.65 HA1C 9.6 worsewill continue Metformin 1000mg 1 po bidstop trulicityi ncrease mounjaro 5 mg once weekly to 7.5mg once weekly MounjaroMo nitor bs readings before and after meals (2Hrs) keep log 06/13/2022 BUN 13creat 0.41eGFR 134 04/21/2023 BUN 13Creat 0.55eGFR 124 Generalize d anxiety disorder 91231571 F41.1 Will continue treatmentE scitalopra m 20mg dailyKlono pin for severe anxiety symptomsre commend psychother apist visits-amy l with problems or thoughts of harming self Multiple environmental allergies 820925764 T78.49XD igE 645 plus multiple specific environmen sven allergensc ontinue otc antihistam ine Obesity 371654419 E66.9 BMI 38.8Health y body weight 105-135 Chronic dermatitis 40223 007 L30.9 Seen by derm 02/2016 given about same treatment she had received from this office. SHe wishes to continue treatment. Cystic acne 98878458 L70 .0 drink a lot of water with this medication and daily bananaderm will be starting accutane Excess morales niculus of abdomen 1745698581 101 E65 Has a rash itchysweat y red wet Allergy to fish 73298464 2 Z91.013 + allergen profile to fishGets rash Vitamin D deficiency 347 92836 E55.9 11/01/2021 Vitamin D 11.31/05/22 024 Vitamin D <4.0buy otc vitamin D3 1000 IU once daily Hyperpigme ntation of skin 86940358 L81.9 continue triluma-brush s from [place] daily sunscreenr eferred to dermderm to start accutane Venous varices 043451789 I83.92 weight losselevat e legssuppor t hoseibupro fen prn Steatotic liver disease 011373740 K76.0 04/15/2023 CT abd/pelvis w/con shows fatty liver, Hepatomega ly, yessica inguinal lymphadeno harmeet, cholelithi asis and R enlarged ovary. Depression screening 171 230798 Z13.31 PHQ2-9 negative Mental hea lth screening 613243091 Z13.39 ANDIE-7 negative Cholelithi asis without obstruction 20520791 K80.20 wants GB removalsee n surgeonwil l be having removal Abnormal l iver function 53389005 K76.89 04/15/2023 CT abd/pelvis w/con shows fatty liver, Hepatomega ly, yessica inguinal lymphadeno harmeet, cholelithi asis and R enlarged ovary. Anxiety 27198178 F41.9 psychother apist listauto relaxation exerciseRX for prn use Right uppe r quadrant pain 040178221 R10.11 [id number] Salas Velasquez MD [facility] [address], [place] [address] 09/01/2023 10:14:59 09/09/2023 15:32:26 Mixed hyperlipidemia 006044618 E78.2 07/06/2020 [id number] Trig 441 HDL 32 LDL 150 07/26/2021 [...] and LSM Right uppe r quadrant pain 880591460 R10.11 [id number] Salas Velasquez MD [facility] [address], [place] [address] 09/03/2023 12:13:17 10/05/2023 10:44:57 Obesity 430419333 E66.9 BMI 37.2Health y body weight 105-135 Body mass index 30+ - obesity 610464542 Z68.39 BMI 37.2Health y body weight 105-135 Pre-surger y evaluation 417942687 Z01.818 32 y/o HF presents for medical clearance for gall bladder surgery on 09/2023. The patient had multiple chronic medical problems: DM2, HPLD, ANDIE; BMI 30+, Hepatic steatosis. Her last HA1C on 08/20/2023 was 6.6. The patient has bee losing weight and exercising . She is not a smoker or uses illicit drugs. Active or passive immunization 525341026 Z23 Type 2 ana betes mellitus 38070496 E11.9 08/20/2023 HA1c 6.6 Mixed hyperlipidemia 267 166612 E78.2 07/06/2020 [id number] Trig 441 HDL 32 LDL 150 07/26/2021 [...] try Atorvastat in 20mg daily and LSM [id number] Salas Vleasquez MD [facility] [address] [place] [address] 11/02/2023 14:48:03 11/04/2023 16:21:33 Body mass index 30+ - obesity 214060384 Z68.39 The patient was started on phentermin e tabs 08/20/2023 to aid with her appetite/w eight loss. Back in August the patient weighed in at 216 She is 205 today. She continues to monitor diet and exercising .BMI 36.4Health y body weight 105-135 Obesity 405253400 E66.9 The patient was started on phentermin e tabs 08/20/2023 to aid with her appetite/w eight loss. Back in August the patient weighed in at 216 She is 205 today. She continues to monitor diet and exercising .BMI 36.4Health y body weight 105-135 Chronic dermatitis 16434 007 L30.9 Seen by derm 02/2016 given about same treatment she had received from this office. SHe wishes to continue treatment. Mental hea lt screening 561267234 Z13.39 ANDIE-7 negative [id number] Salas Velasquez MD [facility] [address], [place] [address] 12/14/2023 12:34:48 12/17/2023 11:42:04 Body mass index 30+ - obesity 095215441 Z68.39 The patient was started on phentermin [...] I 35.1Health y body weight 105-135 Obesity 567661295 E66.9 BMI 35.1Health y body weight 105-232 [id number] [address] MD [facility] [address] [place] [address] 02/05/2024 12:44:32 02/12/2024 15:37:33 Uncontrolled type 2 diabetes mellitus 574017341 E11.65 HA1C 6.0 per patient at last checkwill continue Metformin 1000mg 1 po bidincreas e mounjaro 7.5mg once weekly to 10mg once weekly MounjaroMo nitor bs readings before and after meals (2Hrs) keep log 06/13/2022 BUN 13creat 0.41eGFR 134 04/21/2023 BUN 13Creat 0.55eGFR 124 Mixed hyperlipidemia 267 840992 E78.2 07/06/2020 [id number] Trig 441 HDL 32 LDL 150 07/26/2021 [...] LSM Body mass index 30+ - obesity 178667211 Z68.39 BMI 34.7Health y body weight 105-135 Generalize d anxiety disorder 07458340 F41.1 Will continue treatmentE scitalopra m 20mg dailyKlono pin for severe anxiety symptomsre commend psychother apist visits-amy l with problems or thoughts of harming self Anxiety 49367513 F41.9 auto relaxation exerciseRX clonazepam at home for prn use Multiple environmental allergies 241269044 T78.49XD igE 645 plus multiple specific environmen sven allergensc ontinue otc antihistam ine Obesity 272601558 E66.9 BMI 34.7Health y body weight 105-135adv ised will provide RX phentermin e 3 months on 3 months off as long as some weight loss and no side effects Hyperpigme ntation of skin 99375151 L81.9 continue triluma-brush s from [place] daily sunscreenr eferred to derm Chronic dermatitis 24283 007 L30.9 Seen by derm 02/2016 given about same treatment she had received from this office. SHe wishes to continue treatment. Cystic acne 46377045 L70 .0 drink a lot of water with this medication and daily bananaderm will be starting accutane Excess morales niculus of abdomen 9469866708 101 E65 Has a rash itchysweat y red wet Allergy to fish 27719811 2 Z91.013 + allergen profile to fishGets rash Vitamin D deficiency 347 24452 E55.9 11/01/2021 Vitamin D 11.// 024 Vitamin D <4.0buy otc vitamin D3 1000 IU once daily Venous varices 023101300 I83.92 weight losselevat e legssuppor t hoseibupro fen prn Steatotic liver disease 871209065 K76.0 04/15/2023 CT abd/pelvis w/con shows fatty liver, Hepatomega ly, yessica inguinal lymphadeno harmeet, cholelithi asis and R enlarged ovary. Abnormal l iver function 55639435 K76.89 04/15/2023 CT abd/pelvis w/con shows fatty [...] Member ID Guarantor Name 09/01/2023 2 [place] [employer] Yasmeen Ny [id number] Yasmeen Ny 09/01/2023 1 [employer] - ALLIED BENEFITS - OPEN ACCESS [id number] Yasmeen Ny [id number] Yasmeen Ny 09/03/2023 2 [place] [facility] Yasmeen Ny [id number] Yasmeen Ny 09/03/2023 1 [employer] - ALLIED BENEFITS - OPEN ACCESS [id number] Yasmeen Ny [id number] Yasmeen Ny 11/02/2023 2 [place] [facility] Yasmeen Ny [id number] Yasmeen Ny 11/02/2023 1 [employer] - ALLIED BENEFITS - OPEN ACCESS [id number] Yasmeen Ny [id number] Yasmeen Ny 12/14/2023 2 [place] [facility] Yasmeen Ny [id number] Yasmeen Ny 12/14/2023 1 [employer] - ALLIED BENEFITS - OPEN ACCESS [id number] Yasmeen Ny [id number] Yasmeen Ny 02/05/2024 2 [place] [facility] Yasmeen Ny [id number] Yasmeen Ny 02/05/2024 1 [employer] - ALLIED BENEFITS - OPEN ACCESS [id number] Yasmeen Ny [id number] Yasmeen Ny Notes Date Note Type Note [...] no contraindications. LAURA Hancock Attn: Accounting ,[address] [place], [address] , [facility] 09/03/2023 18:04:02 024 text/ht [...] chronic dermatitis. WELLINGTON Hancock Attn: Accounting ,[address] [place], [address] , [facility] 11/02/2023 15:40:54 024 text/ht ml ObesityReported bypatient.Context:no [...] done yet. LAURA Hancock Attn: Accounting ,[address] [place], [address] , [facility] 12/14/2023 13:05:16 024 text/ht [...] menstruationHyperlipidemiaReported bypatient.Type of hyperlipidemia:combined Duration:chronic;intermittent Prior Tests:07/06/2020 [id number] Trig 441 HDL 32 LDL 150 07/26/2021 [...] prn anxiety. CHU Hancock- Attn: Accounting ,[address] [place], [address] , [facility] 02/05/2024 15:15:18 OBGyn Episode Ob Episode Information Episode Created Date Number of Fetuses Patient Bloodtype Patient rh Status Prepregnancy Weight lbs Domestic Partner Domestic Partner Phone Father Name It Programmer Status 06/06/19 21 1 CLOSED Fetus Data First Name Last Name Admitted to NICU Weight (g) Sex Living Outcome Pediatric Complications Fetus ID Race Codes Race Delivery Type M [id number] Vaginal Rajeev Calculation Initial Rajeev Date Initial [...]
--- OUTSIDE RECORDS SUMMARY | 2024-09-26 11:04 | XMS_ITS | Encounter Summary ---
Author Organization [facility] Address [address] [address] Care Team Providers Care Mucker Cofferdam Name Role Phone Chuck Nelson TIME STUDY STATISTICIAN-ASSEMBLY LOADER Primary Care Pro vider Reason for Visit * Reason Comments Refill Request Encounter Details Date Type Department Care Team (Late st Contact Info) Description 09/06/2024 Refill [facility] EVALUATION UN[facility] [address] [place] [address] Luana Plummer MD [address] [facility] [address] [place] [address] Refill Request Social History Tobacco [...] and heating? Not hard at all 08/23/2024 [facility] [place] [facility] Occupat ional [facility] - Occupational Stress [...] things needed for daily living? No 08/23/2024 Orick Depression Scale Answer Date Recorded Orick Depression Scale Total 1 03/01/2024 The thought [...] time in the past 12 m [facility], were you homeless or living in a [...] Description 09/26/2024 9:32 AM CDT Hospital Encounter [facility] MATERNAL/ EVALUATION UNIT [address] [place] [address] Latanya Villanueva MD [address] [place] [address] 09/26/2024 9:32 AM CDT Hospital Encounter [facility] MATERNAL/ EVALUATION UNIT [address] [place] [address] Latanya Villanueva MD [address] [place] [address] 09/27/2024 1:00 PM CDT Appointment [facility] [address] [place] [address] 09/27/2024 2:15 PM CDT Appointment [facility] [address] [place] [address] 09/29/2024 1:00 PM CDT Appointment [facility] [address] [place] [address] 10/03/2024 9:30 AM CDT Appointment [facility] [address] [place] [address] 10/03/2024 10:30 AM CDT Appointment [facility] [address] [place] [address] 10/06/2024 1:00 PM CDT Appointment [facility] MATERNAL/ EVALUATION UNIT [address] [place] [address] documented as of this encounter Visit Diagnoses Diagnosis Pre-existing type 2 diabetes mellitus during , antepartum (HCC) Elevated blood pressure affecting in third trimester, antepartum (HCC)- Primary documented in this encounter Care Teams Mucker Cofferdam Relationship Specialty Start Date End Date Chuck Nelson, FREDERICK-EMILY [address] [place] [address] PCP - General Nurse Practitioner 08/25/22 documented as of this encounter
--- OUTSIDE RECORDS SUMMARY | 2024-09-26 11:04 | XMS_ITS | Referral Summary ---
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 Testing performed by: [address] [address] Blood 09/24/2023 8:42 AM CDT 09/24/2023 9:06 AM CDT us Sajan Pollard MD LAB BLOOD ORDERABL ES Final Result [facility] [address] [facility] [place] [address] * (ABNORMAL) Hemoglobin A1c (09/24/2023 8:42 AM CDT) Hgb A1C 6.8(H) 4.0 - 5.6 % Comment:Testing performed by : [address] [address] Estimated Average Glucose 148 mg/dL KELLEN TARANGO Comment: The ADA recommends reporting an estimated Average Glucose (eAG) with all Hemoglobin A1c results using the equation derived from a study of 507 normal and diabetic adults. Minority populations were underrepresented and children were not included. (Diabetes Care 31:3292-4515, 2008). The eAG is not equivalent to a fasting glucose. Testing performed by: [facility], [address] [place] [address], [place]., [address] Blood 09/24/2023 8:42 AM CDT 09/24/2023 9:06 AM CDT Marquita TARANGO - 09/24/2023 9:40 AM CDT PRE SURGERY TESTING ONLY us Sajan Pollard MD LAB BLOOD ORDERABL ES Final Result KELLEN [address] [facility] Department [place] [address] from Last 3 Months or Most Recently Relevant to Health Maintenance Insurance [facility] CHOICE PLUS [employer] OPEN ACCESS [employer] OPEN ACCESS Care Teams Supervisor Securities V[employer] Relationship Specialty Start Date End Date Chuck Nelson NP PCP - General 01/26/19 Christopher Nelson MD [address] [place] [id number] Consulting Physician General Surgery 09/30/23
--- OUTSIDE RECORDS SUMMARY | 2024-09-26 11:04 | XMS_ITS | Data Portability ---
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 Imaging non-stres s test 2024 025 [email or web address] [address], [address], [place], [address], 09/22/2024 17:02:37 non-stres s test 2024 025 [email or web address] [address], [address], [place], [address], 09/15/2024 16:45:10 non-stres s test 2024 025 [email or web address] [address], [address], [place], [address], 09/09/2024 01:14:22 Medication Orders None recorded. Patient [...] Strep , Refle x Susce ptibi lity ([facility] ) Speci men Sourc e: Vagin a/Rec lynne Speci men Type: Vagin al/Re ctal Speci men Date: 2024 1649 Resul t Date: 1802 Resul t Statu s: Final resul t Abnor mal: Yes Resul ting Lab: [facility] [address] [facility] [address] Tel: CULTU RE ----- ----- ----- --- [...] susan for these drugs . Not Available [facility] (Lab) [address] [facility], [place], [address], 09/20/2024 19:05:42 08/26/19 25 08/23/2024 US, obste tric, follo w-up No observ ation record ed. [email or web address] [facility] [address] , [place], [address], 08/26/2024 16:05:55 08/26/19 25 08/25/2024 non-s tress test No observ ation record ed. [email or web address] [place] [address], [place], [address], 08/25/2024 16:29:32 09/01/19 25 08/30/2024 US, obste tric, follo w-up No observ ation record ed. [facility] [address] [facility], [place], [address], 09/01/2024 14:44:52 09/02/19 25 09/01/2024 non-s tress test No observ ation record ed. [email or web address] [place] [address], [place], [address], 09/01/2024 16:07:12 09/08/19 25 09/06/2024 US, obste tric, follo w-up No observ ation record ed. [email or web address] [facility] [address] , [place], [address], 09/20/2024 18:38:36 09/09/19 25 09/08/2024 non-s tress test No observ ation record ed. [email or web address] [place] [address], [place], [address], 09/08/2024 16:31:27 09/09/19 25 09/08/2024 US, obste tric, limit ed No observ ation record ed. [email or web address] [place] [address], [place], [address], 09/08/2024 17:53:42 09/09/19 25 09/08/2024 US, obste tric, limit ed No observ ation record ed. [place] [address] [address], [place], [address], 09/15/2024 11:13:07 09/16/19 25 09/13/2024 US, obste tric, follo w-up No observ ation record ed. [email or web address] [facility] [address] [place] [address], [place], [address], 09/20/2024 16:45:35 09/16/19 25 09/15/2024 non-s tress test No observ ation record ed. [email or web address] [place] [address], [place], [address], 09/15/2024 15:48:04 09/23/19 25 09/22/2024 non-s tress test No observ ation record ed. [email or web address] [place] [address], [place], [address], 09/23/2024 22:42:49 09/27/19 25 09/22/2024 imagi ng/di agnos tic resul t No observ ation record ed. IRMA [facility] [address] [facility], [place], [address], 09/26/2024 08:54:19 Result Notes None recorded. Problems Name Problem SNOMED Code Status Onset Date Resolution Date Notes Provider Name and Address Organization Details Recorded Time Finding of fertilit y Completed 201704/26/2020 Female infertil ity, unspecif ied;Prac sarath ID: 0001 Jorge zamarripa [facility] 14:54:13 Dysuria 07251540 Completed 201704/26/2020 Dysuria; Practice ID: 0001 Jorge zamarripa [facility] 14:54:28 Acute vaginiti s 65117848 Completed 201705/08/2020 Acute vaginiti s;Practi ce ID: 0001 Yadira Mckeon [facility] 12:09:31 Female genital organ symptoms 608811255 Completed 201104/26/2020 Unspecif ied symptom associat ed with female genital organs;R ecorded Elsewher e: No Locat ion: [facility] S ource: EHR Memorandum Statement Clerk ashlyn: N Practi ce ID: 0001 Ezio lable Time: 03:00:00 PM Jorge Diaz [facility] 14:54:25 Body mass index 30+ - obesity 014335271 Completed 201505/08/2020 Body mass index (BMI) 45.0-49. 9, adult;Re corded Elsewher e: No Locat ion: [facility] S ource: EHR Memorandum Statement Clerk ashlyn: N Practi ce ID: 0001 Ezio lable Time: 05:30:00 PM Yadira zamarripa [facility] 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 14:53:39 Syphilis test finding 296936851 Completed 201504/26/2020 Encntr screen for infectio ns w sexl mode of transmis s;Record ed Elsewher e: No Locat ion: [facility] S ource: EHR Memorandum Statement Clerk ashlyn: N Practi ce ID: 0001 Ezio lable Time: 05:30:00 PM [facility] 14:53:43 Obesity 160718533 Completed 201305/08/2020 LD ASA per MFM [facility] 12:09:[address] Concept Completed 201704/26/2020 Encntr for general adult medical exam w/o abnormal findings ;Recorde d Elsewher e: No Locat ion: [facility] S ource: EHR Memorandum Statement Clerk ashlyn: N Practi ce ID: 0001 Ezio lable Time: 08:30:00 AM [facility] 14:53:36 Screenin g for malignan t neoplasm of cervix Completed 201104/26/2020 Pap Smear;Pr actice ID: 0001 Faraevette Pinonizzle [facility], [facility] 14:53:52 Ill-defi meño intestin al infectio n Completed 201104/26/2020 No Show Fee;Prac sarath ID: 0001 Jorge Joe [facility], [facility] 14:54:20 Amenorrh ea 80095073 Completed 201105/08/2020 AMENORRH EA;Pract ice ID: 0001 Yadira Mike marilou, [facility] 12:09:33 Pregnanc y test negative 340300751 Completed 201104/26/2020 Negative Pregnanc y Test;Pra ctice ID: 0001 Jorge zamarripa [facility] 14:53:57 Polycyst ic ovaries Completed 201305/08/2020 Polycyst ic ovaries; Practice ID: 0001 Yadira zamarripa [facility] 12:09:44 Migraine 05928294 Completed 201305/08/2020 Migraine , unspecif ied without mention of intracta ble migraine ;Practic e ID: 0001 Yadira zamarripa [facility] 12:09:40 Adult health examinat ion Completed 201404/26/2020 Routine general medical examinat ion at a [facility] facility ;Practic e ID: 0001 Jorge Diaz [facility] 14:54:37 Speciali zed medical examinat ion Completed 201404/26/2020 Other specifie d chlamydi al diseases ;Practic e ID: 0001 Jorge zamarripa [facility] 14:53:40 Venereal disease screenin g Completed 201404/26/2020 Screenin g examinat ion for venereal disease; Practice ID: 0001 Jorge zamarripa [facility] 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 14:53:34 Clinical finding Completed 201504/26/2020 Obesity, unspecif ied;Prac sarath ID: 0001 Jorge zamarripa [facility] 14:54:15 Severe obesity 9174804193 9104 Completed 201504/26/2020 Morbid (severe) obesity due to excess calories ;Practic e ID: 0001 [facility] 14:54:02 Primary amenorrh ea 135999107 Completed 201704/26/2020 Primary amenorrh ea;Pract ice ID: 0001 Jorge Diaz [facility] 14:53:54 Metaboli c syndrome X 751437836 Completed 201305/08/2020 Insulin resistan ce;Recor ded Elsewher e: No Locat ion: [facility] S ource: EHR Memorandum Statement Clerk ashlyn: N Richarti ce ID: 0001 Ezio lable Time: 09:45:00 AM [facility] 12:09:39 Infectio n screenin g Completed 201504/26/2020 Encounte r for screenin g for oth infec/pa rastc diseases ;Recorde d Elsewher e: No Locat ion: [facility] S ource: EHR Memorandum Statement Clerk ashlyn: N Richarti ce ID: 0001 Ezio lable Time: 05:30:00 PM Jorge zamarripa [facility] 14:54:11 Diabetes mellitus 42340675 Completed 201905/08/2020 type 2 Yadira zamarripa [facility] 12:09:37 Anxiety 31838146 Completed 201905/08/2020 Zoloft [facility]ira Mikelaura [facility] 12:09:34 Abnormal cervical Papanico laou smear 197469819 Completed 201905/08/2020 2015 Yadira zamarripa [facility] 01/19/202 1 12:09:30 Pregnanc y 42123002 Completed 201905/08/2020 Nehal Armendariz [facility], [facility] 4 18:08:47 Type 2 diabetes mellitus 27804272 Completed Metformi n xr 2000mg qd Sent to [facility] for manageme nt- 05/16- NPH 26U AM/88U PM Increase 2 units when 1 consecut wili fasting >90 / Humalog 16U w/ bfast & 8Uw/ lunch & 32U w/ dinner. 6units with snack over 15g carbs. Nhi Alvarezradhaanuradhanolvialexi white [facility] 1 13:40:41 Purpuric rash 452022079 Completed clotimaz ole/beta methazon e-Rxed Nhi Alvarezradhaanuradhanolvialexi white [facility] 1 13:40:41 Obesity 358787551 Completed 2013 LD ASA per [facility] Nhi Alvarezradhaanuradhanolvialexi white marilou, [facility] 1 13:40:41 Marginal insertio n of umbilica l cord 66408283 Completed 2019 growth u/s [facility] 1 13:40:41 Dilatati on of renal pelvis 289883975 Completed - bilatera l - growth u/s Nhi Arananolvialexi white [facility], [facility] 1 13:40:41 Anxiety 16281234 Completed 2019 Zoloft Nhi Alvarezradhaanuradhanolvialexi white [facility] 1 13:40:41 Pre-exis ting type 2 diabetes mellitus in pregnanc y 869748909 Completed 2020 DELIVER BY 36- not well controll ed. M may rec earlier. Nhi Hunter zamarripa [facility] 1 13:40:41 Pre-exis ting type 2 diabetes mellitus in pregnanc y 208032850 Completed 202005/08/2020 Yadira Mckeon [facility] 1 12:09:45 Large for gestatio n age fetus 429422205 Completed potentia l 89% 05/11 Nhi white [facility] 1 13:40:41 Pregnanc y 37540073 Active 2023 Nehal Armendariz [facility] 4 18:08:47 Type 2 diabetes mellitus 23997134 Active managed by [facility]FM Sched [facility] 05[facility]10 [facility] 06/28 US and office visit Consult 08/03/24 NST & US 08/23/24 1:15PM to start 2xwkly antenata l testing at 32wks confirm if pt schedule MFM or our office? schedule d for US/BPP/N ST weekly onTuesda ys starting 06/02/24 pt decline Thursday NST pt schedule d on s NST/OB Jenni Diaz [facility] 5 16:43:50 Group B Streptoc occus carrier [id number] 103 Active + GBS in urine Jenni Diaz [facility] 5 13:09:37 Group B Streptoc occus carrier 9895731856 103 Active + GBS in urine Jenni Diaz [facility] 5 13:09:37 Pre-ecla mpsia 643796955 Active 2024 Dante Aponte MD [address], [place], [address], [facility] 5 16:02:57 Problem Notes None recorded. Procedures Surgical History Date Name Laterality Status Provider Name and Address Organization Details Recorded Time 03/01/20 24 Date of Last Pap Smear completed Nehal Armendariz [facility] 04/07/2024 18:07:50 09/02/19 23 IUD Removal completed Dante Aponte MD [address], [place], [address], [facility] 09/01/2022 22:15:29 05/19/19 23 Colposcopy completed Dante Aponte MD [address], [place], [address], [facility] 05/19/2022 15:31:57 05/19/19 23 Colposcopy completed Alva Kimble [facility] 03/09/2023 16:31:33 05/19/19 23 Colposcopy completed Sarah Jordan [facility] 05/19/2022 14:35:43 07/28/19 22 IUD Insertion completed Dante Aponte MD [address], [place], [address], [facility] 07/27/2021 12:17:49 05/22/19 21 NST completed Bel Dennison MD [address], [place], [address], [facility] 05/22/2020 14:09:48 05/15/19 21 NST completed Bel Dennison MD [address], [place], [address], [facility] 05/15/2020 13:43:28 04/27/19 21 NST completed Bel Dennison MD [address], [place], [address], [facility] 04/27/2020 12:17:14 04/20/19 15 Tonsillectomy completed Alva Kimble [facility] 11/09/2019 16:35:35 Imaging Results None recorded. Procedure Notes None recorded. Medical Equipment None Reported. Allergies Allergen ID Allergen Name Allergen Category Reaction Reaction Severity Criticality Documentation Date Start Date Code Code System Note Provider Name and Address Organization Details Recorded Time 1407 lisinopri l medicatio n rash Not available Not available 11/09/2019 08314 RxNorm Alva Lamin [facility] 0 11:13:14 Medications Name Sig Start [...] florecita Simental e: Yes Loca tion: [facility] odify By: [email or web address] Sandoval ncounter DateTime : 02/13/20 17 03:00:00 PM [...] for 5 nights 10/13 completed Prescrib ed Elsew e: No Locat ion: [facility] odify By: rihcard kearns DateTime : 02/03/20 18 02:19:49 PM [...] by subcutan eous route in the evening. 04/09 /2022 completed Not Available Not Available Not Available nystatin- triamcino lone 100,000 unit/g-0. 1 % topical cream apply by topical route 2 times every day to the affected area(s) in the morning and evening 11/20 completed Prescrib ed Elsewher e: No [facility] By: [email or web address] Steph r DateTime : 10/14/19 19 08:30:00 [...] ed Elsewher e: No Locat ion: [facility] odify By: karine calix DateTime : [...] Elsewher e: No Locat ion: [facility]aji sandoval [facility] odify By: [email or web address] trick En counter DateTime : 01/16/20 12 03:00:00 PM Not Available Not Available Not Available Lantus Solostar U-100 Insulin 100 unit/mL (3 mL) subcutane ous pen INJECT 24 UNITS SUBCUTAN EOUSLY IN THE MORNING AND 24 AT BEDTIME (TAKE DOSAGES APPROXIM ATELY 12 HOURS APART. INCREASE DOSE DIRECTED DUE TO INCREASI NG INSULIN REQUIREM ENTS DURING PREGNANC Y. MAX TOTAL DAILY DOSE 50 UNITS) active Not Available Not Available [...] Prescrib ed Elsewher e: No Locat ion: [facility] odify By: claire Mavis som DateTime : 06/07/19 16 01:29:48 PM Not [...] Available No t Available FreeStyle Herrera 2 [place] 07/06 completed Not Available Not Available Not [...] Updated DateTime 09/08/2024 158.75 cm 43.7 kg/m2 837350.9 5 g 143 mm[Hg] 91 mm[Hg] Nehal Armendariz [facility] 16:49:27 Date Recorded Body height Body mass index (BMI) Body weight Systolic blood pressure Diastolic blood pressure Provider Name and Address Organization Details Last Updated DateTime 09/08/2024 158.75 cm 43.7 kg/m2 503983.9 5 g 143 mm[Hg] 91 mm[Hg] DIANE Navarro [facility] 16:30:30 Date Recorded Body weight Systolic blood pressure Diastolic blood pressure Provider Name and Address Organization Details Last Updated DateTime 09/15/2024 130011.315 39 g 122 mm[Hg] 77 mm[Hg] Nehal [facility] 09/15/2024 15:47:22 Date Recorded Body height Body mass index (BMI) Body weight Systolic blood pressure Diastolic blood pressure Provider Name and Address Organization Details Last Updated DateTime 09/15/2024 158.75 cm 44.5 kg/m2 204740.3 2 g 122 mm[Hg] 71 mm[Hg] DIANE Navarro [facility] 15:44:16 Date Recorded Body weight Systolic blood pressure Diastolic blood pressure Provider Name and Address Organization Details Last Updated DateTime 09/22/2024 101047.500 13 g 146 mm[Hg] 92 mm[Hg] Nehal [facility] 09/22/2024 15:26:24 Date Recorded Body height Body mass index (BMI) Body weight Systolic blood pressure Diastolic blood pressure Provider Name and Address Organization Details Last Updated DateTime 09/22/2024 158.75 cm 44.8 kg/m2 933993.5 g 146 mm[Hg] 92 mm[Hg] DIANE [facility] 16:58:54 Social History Question Answer Notes LastModified by Organizat ion Details LastModified Time Tobacco Smoking Status Never Smoker Alva zamarripa, [facility] 11/09/2019 16:27:58 Are You Blind Or Do You Have Difficulty Seeing? No [email or web address] Information n ot available 03/09/2023 What Is Your Level Of Caffeine Consumption? Occasional [email or web address] Information not available 03/09/2023 In The 14 Days Before Symptom Onset, Have You Had Close Contact With A Laboratory-confirm ed COVID-19 While That Case Was Ill? No [email or web address] Information n ot available 03/09/2023 In The 14 Days Before Symptom Onset, Have You Had Close Contact With A Person Who Is Under Investigation For COVID-19 While That Person Was Ill? No [email or web address] Information not available 03/09/2023 Have You Been To An Area Known To Be High Risk For COVID-19? No [email or web address] Information not available 03/09/2023 Are You Deaf Or Do You Have Serious Difficulty Hearing? No [email or web address] Information not available 03/09/2023 What Type Of Diet Are You Following? DIABETIC [email or web address] Information n ot available 03/09/2023 Which Illicit Or Recreational Drugs Have You Used? Alexander [email or web address] Information not available 11/09/2019 What Was The Date Of Your Most Recent Tobacco Screening? 03/09/2023 Information not available 03/09/2023 Do You Use Your Seat Belt Or Car Seat Routinely? Yes [email or web address] Information not available 03/09/2023 Do You Have Smoke And Carbon Monoxide Detectors In Your Home? Yes [email or web address] Information not available 03/09/2023 How Much Tobacco Do You Smoke? No [email or web address] Information not available 11/09/2019 Do You Use Sunscreen Routinely? Yes [email or web address] Information not available 03/09/2023 Do You Have Difficulty Walking Or Climbing Stairs? No [email or web address] Information not available 03/09/2023 Sex: Unknown Functional Status Question Answer Note LastModified by Organizat ion Details LastModified Time What is your level of alcohol consumption? Occasional [email or web address] Information not available 11/09/2019 Do you or have you ever used smokeless tobacco? Never used smokeless tobacco [email or web address] Information not available 11/09/2019 Are you able to walk? YESWOREST [email or web address] Information not available 03/09/2023 Are you able to care for yourself? Yes [email or web address] Information not available 03/09/2023 Do you have difficulty dressing or bathing? No Information not available 03/09/2023 Do you or have you ever used e-cigarettes or vape? Never used electronic cigarettes Information not available 11/09/2019 What is your exercise level? Occasional [email or web address] Information not available 11/09/2019 Mental Status Question Answer Note LastModified by Organization D etails LastModified Time Do you feel stressed (tense, restless, nervous, or anxious, or unable to sleep at night)? [id number] [email or web address] Information not available 03/09/2023 Family History Relationship Description Onset Age of this Age Resolved Age Notes LastModified by Organization Details LastModified Time Maternal Grandmother Diabetes mellitus [email or web address] Not available 11/08 16:27:24 Maternal Aunt Diabetes mellitus [email or web address] Not available 11/08 16:27:24 Maternal Aunt Malignant tumor of cervix [email or web address] Not available 11/08 16:27:36 Maternal Aunt Malignant tumor of breast [email or web address] Not available 11/08 16:27:47 Medical History Condition [...] SNOMED-CT Code Diagnosis ICD10 Code Diagnosis Note [id number] Franci Wyman CNM [address] [address] 11/09/2019 10:35:05 11/09/2019 12:09:35 [id number] Dante Aponte MD [place] [address],[place] [address] 11/09/2019 10:36:18 11/09/2019 13:42:01 [id number] Dante Aponte MD [place] [address],[place] [address] 12/09/2019 10:39:11 12/09/2019 12:29:37 screening 969745986 Z36.82 Z36.0 Z36.89 Pruritic rash 45322256 L 28.2 Routine an tenatal care 965254652 Z34.01 [id number] MD Roxana Posada [address],[place] [address] 12/09/2019 10:39:39 12/09/2019 11:48:03 screening 444958662 Z36.82 Z36.0 Z36.89 [id number] Dante Aponte MD [place] [address],[place] [address] 01/06/2020 11:18:19 01/06/2020 12:48:28 Gestational diabetes mellitus class A2 68298076 O24.414 [id number] Dante Aponte MD [place] [address],[place] [address] 01/06/2020 11:18:55 01/06/2020 14:59:05 [id number] Dante Aponte MD [place] [address],[place] [address] 02/03/2020 09:30:52 02/03/2020 12:31:48 screening for malformation 376195648 Z36.3 [id number] [facility] [address],[place] [address] 02/03/2020 09:31:14 02/03/2020 13:25:47 Routine care 853923460 Z34.92 [id number] MD Roxana Posada [address],[place] [address] 02/24/2020 14:40:59 02/24/2020 16:52:22 Headache 24959418 R51.9 Anxiety 56095873 F41.9 66162 MD Roxana Posada [address],[place] [address] 03/02/2020 09:24:54 03/02/2020 10:41:38 screening 794598865 Z36.2 O35.8XX0 O43.92 O24.112 Z3A.24 65763 [facility] [address],[place] [address] 03/02/2020 09:25:14 03/02/2020 10:41:22 Routine care 640363904 Z34.92 [id number] Franci Wyman [facility] [address],[place] [address] 03/30/2020 12:05:24 03/30/2020 14:10:47 Routine care 140110846 Z34.92 [id number] MD Gayle [place] [address],[place] [address] 04/11/2020 13:45:33 04/11/2020 14:43:39 Pre-existing type 2 diabetes mellitus in 301449265 O24.119 [id number] MD Gayle [place] [address],[place] [address] 04/27/2020 11:06:25 04/27/2020 12:38:33 Pre-existing type 2 diabetes mellitus in 368110644 O24.119 [id number] MD Roxana Kirkpatrick [address],[place] [address] 04/27/2020 11:06:44 04/27/2020 12:43:55 Gestational diabetes mellitus class A2 45167696 O24.414 [id number] MD Roxana Posada [address],[place] [address] 05/01/2020 11:25:52 05/01/2020 12:33:58 Gestational diabetes mellitus class A2 04930160 O24.414 [id number] Dante Aponte MD [place] [address],[place] [address] 05/01/2020 11:27:17 05/01/2020 12:39:16 Routine care 260679857 Z34.01 [id number] Dante Aponte MD [place] [address],[place] [address] 05/08/2020 11:29:34 05/08/2020 12:15:11 Gestational diabetes mellitus class A2 96470069 O24.414 [id number] Grazyna Rubin [facility] [address],[place] [address] 05/08/2020 11:30:35 05/08/2020 12:42:05 Routine care 278983892 Z34.93 [id number] Bel Dennison MD [place] [address],[place] [address] 05/15/2020 11:29:25 05/15/2020 12:47:10 Gestational diabetes mellitus class A2 11850965 O24.414 [id number] Bel Dennison MD [place] [address],[place] [address] 05/15/2020 11:30:12 05/15/2020 14:05:54 Pre-existing type 2 diabetes mellitus in 525426289 O24.119 [id number] MD Roxana Kirkpatrick [address],[place] [address] 05/22/2020 11:36:06 05/24/2020 16:00:09 Gestational diabetes mellitus class A2 62786766 O24.414 [id number] MD Roxana Kirkpatrick [address] [place] [address] 05/22/2020 11:37:01 05/23/2020 11:05:33 Pre-existing type 2 diabetes mellitus in 017559803 O24.119 Reduced fe sven movement [id number] O36.8199 [id number] Dante Aponte MD [place] [address],[place] [address] 05/22/2020 12:11:38 05/24/2020 11:07:14 condition affecting obstetrical care of mother [id number] O36.8330 [id number] Dante Aponte MD [place] [address],[place] [address] 07/06/2020 15:53:54 07/06/2020 16:45:54 Anxiety 09459392 F41.9 care 71050471 8 Z39.0 Patient is a 29-year-ol d [...] sertraline . She will in 1 month. [id number] Dante Aponte MD [place] [address],[place] [address] 07/27/2021 11:51:04 07/27/2021 12:18:19 Contraception care management 484679516 Z30.9 IUD was inserted without complicati ons. Insertion of intrauterine contraceptive device 14287223 Z30.430 [id number] Dante Aponte MD [place] [address],[place] [address] 04/25/2022 10:39:12 04/25/2022 13:43:15 Gynecologic examination 69884372 Z01.419 Annual gynecologi amy exam performed. Patient [...] Cholestero l - done Pap - today [id number] Dante Aponte MD [place] [address],[place] [address] 05/19/2022 13:54:03 05/19/2022 15:37:59 Dysplasia of cervix 53744834 N87.9 colposcopi c examinatio n was performed and biopsies were performed. Three biopsies and an ECC were performed and she tolerated it well. [id number] Dante Aponte MD [place] [address],[place] [address] 09/01/2022 16:33:00 09/02/2022 14:30:51 Vulval irritation 940455945 N90.89 Contracept ion care management 845340659 Z30.9 IUD was inserted without complicati ons. Urinary tr act infectious disease 28474693 N39.0 patient reported urinary symptoms. [id number] BLAKE Vaughn [place] [address],[place] [address] 03/09/2023 16:32:50 03/10/2023 09:09:00 Contraception care management 681641348 Z30.9 Discussed all BC methods in-depth, r/b/a [...] counseling and review of plan of care. [id number] JOELLE MCLEAN MD [place] [address],[facility] [place] [address] 05/13/2023 12:18:10 05/14/2023 08:54:53 Vaginitis 81322535 N76.0 - swab sent, follow up on results as available [facility] management 737864346 Z30.9 - unhappy with slynd, would like Paraguard IUD placement- patient to call with next period for placement Recurrent urinary tract infection 949923371 N39.0 - patient to call for urine culture if symptoms recur, currently resolved- consider postcoital or daily ppx if recurrent [id number] Dante Aponte MD [place] [address],[place] [address] 02/22/2024 10:09:21 02/22/2024 12:07:46 Ectopic 56318170 O00.90 this patient is a 33-year-ol d [...] the week. this problem has marked complexity [id number] Dante Aponte MD [place] [address],[facility] [place] [address] 02/22/2024 10:52:45 02/22/2024 11:37:21 Low back pain in 9467343031 106 O26.899 O36.80X9 Z3A.01 [id number] Dante Aponte MD [place] [address],[facility] [place] [address] 04/07/2024 16:30:33 04/07/2024 17:49:14 screening 505862302 Z36.82 Z3A.12 [id number] MD Roxana Posada [address],[place] [address] 04/07/2024 16:31:11 04/08/2024 09:39:28 Gestation period, 12 weeks 59095817 Z3A.12 [id number] MD Roxana Posada [address],[place] [address] 05/05/2024 16:13:19 05/05/2024 17:37:08 [id number] MD Roxana Posada [address],[place] [address] 05/05/2024 17:30:23 05/05/2024 17:49:36 [id number] MD Roxana Posada [address],[place] [address] 06/02/2024 16:32:48 06/02/2024 17:33:53 Routine care 357407127 Z34.01 [id number] Dante Aponte MD [place] [address],[place] [address] 06/30/2024 13:38:23 06/30/2024 14:25:45 Routine care 759243757 Z34.01 [id number] JOELLE MCLEAN MD [place] [address],[place] [address] 07/18/2024 16:43:22 07/18/2024 17:20:55 Vaginitis 64311868 N76.0 - tried OTC monistat without relief- swab sent, follow up on results as available [id number] MD Roxana Posada [address],[place] [address] 07/28/2024 13:50:41 07/28/2024 15:00:44 Routine care 879040981 Z34.01 [id number] MD Roxana Posada [address],[place] [address] 08/08/2024 14:01:40 08/08/2024 14:36:37 care status 552055587 Z34.83 [id number] Dante Aponte MD [place] [address],[place] [address] 08/25/2024 14:41:30 08/25/2024 15:26:20 care status 750277727 Z34.83 [id number] MD Roxana Posada [address],[place] [address] 08/25/2024 16:28:05 08/25/2024 16:32:44 Past history of gestational diabetes mellitus 456722443 Z86.32 [id number] MD Roxana Posada [address],[place] [address] 09/01/2024 13:22:25 09/01/2024 16:18:24 Gestational diabetes mellitus class A2 97111819 O24.419 [id number] Dante Aponte MD [place] [address],[place] [address] 09/01/2024 13:22:47 09/05/2024 00:58:57 care status 070324551 Z34.83 [id number] MD Roxana Posada [address],[place] [address] 09/08/2024 15:33:55 09/08/2024 16:50:33 Gestational diabetes mellitus 32408209 O24.410 [id number] MD Roxana Posada [address],[place] [address] 09/08/2024 15:34:08 09/08/2024 16:50:00 Oligohydramnios 96176734 O41.03X0 Z3A.34 [id number] MD Roxana Posada [address],[place] [address] 09/08/2024 15:34:18 09/09/2024 01:16:04 [id number] MD Roxana Posada [address],[place] [address] 09/15/2024 15:02:18 09/15/2024 16:45:10 Gestational diabetes mellitus 35699554 O24.410 [id number] Dante Aponte MD [place] [address],[place] [address] 09/15/2024 15:02:40 09/15/2024 16:44:53 care status 081585620 Z34.83 [id number] Dante Aponte MD [place] [address],[place] [address] 09/22/2024 14:30:30 09/22/2024 17:02:37 Gestational diabetes mellitus 38661632 O24.410 [id number] Dante Aponte MD [place] [address],[place] [address] 09/22/2024 14:30:39 09/22/2024 16:26:54 care status 120087237 Z34.83 Health Concerns Section Related Observation LastModified by Organization Detai ls LastModified Time None Recorded Concern Status LastModified by Organization Details LastModified Time None Recorded Advance Directives Directive None Recorded Payers Encounter Date Sequence Insurance Name Policy Number Policy Goddard Covered Member ID Goddard Member ID Guarantor Name 09/08/2024 1 [employer] - ALLIED BENEFITS - OPEN ACCESS Yasmeen Ny [id number] Yasmeen Ny 09/08/2024 2 [facility] - DOS ON OR AFTER 20 (MEDICAID REPLACEMENT - HMO) Yasmeen Ny [id number] Yasmeen Ny 09/15/2024 1 [employer] - ALLIED BENEFITS - OPEN ACCESS Yasmeen Ny [id number] Yasmeen Ny 09/15/2024 2 [facility] - DOS ON OR AFTER 20 (MEDICAID REPLACEMENT - HMO) Yasmeen Ny [id number] Yasmeen Ny 09/15/2024 1 [employer] - ALLIED BENEFITS - OPEN ACCESS Yasmeen Ny [id number] Yasmeen Ny 09/15/2024 2 [facility] ON OR AFTER 10/18/20 (MEDICAID REPLACEMENT - HMO) Yasmeen Ny [id number] Yasmeen Ny 09/22/2024 1 [employer] - ALLIED BENEFITS - OPEN ACCESS Yasmeen Ny [id number] Yasmeen Ny 09/22/2024 2 [facility] ON OR AFTER 10/18/20 (MEDICAID REPLACEMENT - HMO) Yasmeen Ny [id number] Yasmeen Ny 09/22/2024 1 [employer] - ALLIED BENEFITS - OPEN ACCESS Yasmeen Ny [id number] Yasmeen Ny 09/22/2024 2 [facility] ON OR AFTER 10/18/20 (MEDICAID REPLACEMENT - HMO) Yasmeen Ny [id number] Yasmeen Ny OBGyn Episode Ob Episode Information Episode Created Date Number of Fetuses Patient Bloodtype Patient rh Status Prepregnancy Weight lbs Domestic Partner Domestic Partner Phone Father Name Senior Software Engineering Manager Status 12/09/19 20 1 A Positive 226 CLOSED Fetus Data First Name Last Name Admitted to NICU Weight (g) Sex Living Outcome Pediatric Complications Fetus ID Race Codes Race Delivery Type 3203.49 35 M true Full Term 3938 Vaginal Delivery Problems Problem Notes [facility] - 03/28 - Recommendations : 162mg ASA daily, echo, A1C q trimester, baseline 24 hr TP, 2x/wk NST and weekly BPP @ 32 wks. ECHO - Scheduled 04/19- Normal record in chart [facility] 05/16 POLICY ISSUE CLERK/DE 10:30am - *WILL REQUIRE INSULIN DRIP DURING LABOR/DECREASE BY 50% IN *[facility] - next appt 05/23 POLICY ISSUE CLERK/DE/US Problem Name Start Date End Date Resolution Snomed Code Not e Purpuric rash 598158222 clotim azole/betametha zone-Rxed Type 2 diabetes mellitus 59274260 Metformin xr 20 00mg qdSent to [facility] for management- 05/16-NPH 26U AM/88U PM Increase 2 units when 1 consecutive fasting >90 / Humalog 16U w/ bfast & 8Uw/ lunch & 32U w/ dinner. 6units with snack over 15g carbs. Obesity 08/19/2013 442389145 LD ASA pe r MFM Marginal insertion of umbilical cord 02/03/2020 36639396 growth u/s Dilatation of renal pelvis - bilater al - growth u/s Anxiety 11/09/2019 76238684 Zoloft Pre-existing type 2 diabetes mellitus in 04/27/2020 949417884 DELIVER BY 37- not well controlled. MFM [...] Weight in lbs Pre/Post Dialysis Refused Weight 230.211546038922 BP Diastolic BP Location Tested BP Systolic [...] Weight in lbs Pre/Post Dialysis Refused Weight 237.132579446140 BP Diastolic BP Location Tested BP Systolic [...] Weight in lbs Pre/Post Dialysis Refused Weight 242.630345948514 BP Diastolic BP Location Tested BP Systolic [...] Weight in lbs Pre/Post Dialysis Refused Weight 249.687552217650 BP Diastolic BP Location Tested BP Systolic [...] Weight in lbs Pre/Post Dialysis Refused Weight 249.763964485882 BP Diastolic BP Location Tested BP Systolic [...] Weight in lbs Pre/Post Dialysis Refused Weight 256.522791873538 BP Diastolic BP Location Tested BP Systolic [...] Weight in lbs Pre/Post Dialysis Refused Weight 259.668909356047 BP Diastolic BP Location Tested BP Systolic BP Type 80 125 Fetus Heart Rate Present A 145 Fetus Movement A Yes Comments 2+glucose. Ran out of insuli n for 3 days. Back on now. Sugars per MFM. On Nph and lispro /0. NSTs scheduled here. Encouraged Tdap and flu, [...] Weight in lbs Pre/Post Dialysis Refused Weight 263.075359342919 BP Diastolic BP Location Tested BP Systolic [...] Weight in lbs Pre/Post Dialysis Refused Weight 268.529027117762 BP Diastolic BP Location Tested BP Systolic [...] Weight in lbs Pre/Post Dialysis Refused Weight 266.979593828062 BP Diastolic BP Location Tested BP Systolic BP Type 77 136 Fetus Heart Rate Present Fetus Movement A Yes Comments Pt has seen m for bs and i nsulin monitoring. States [...] Weight in lbs Pre/Post Dialysis Refused Weight 269.668453962315 BP Diastolic BP Location Tested BP Systolic [...] Weight in lbs Pre/Post Dialysis Refused Weight 272.590797920055 BP Diastolic BP Location Tested BP Systolic [...] baseline, spontaneous. BPP in office 09/25. To L and D for extended monitoring. [...] Estim ated Date of Delivery false Thalassemia (Finnish, Brazilian, Mediterranean, Or Background): MCV < 80 false Neural Tube Defect (Meningomyelocele, Spina Bifi da, Or Anencephaly) false Congenital Heart Defect false Down Syndrome false Tyrell-Sachs (eg, Mandaeism, Cajun, Serbian-[place]) f alse Kodak Disease false Sickle Cell Disease Or Trait () false Hemophilia Or Other Blood Disorders false Muscular Dystrophy false Cystic Fibrosis false Scioto's Chorea false Intellectual Disability/Autism false If Yes, [...] Sterilization Discharge Date Comments 1 Induce d [facility]-Ep idural 36.2 Dante Aponte MD +GBS & Type 2 DM Discharge Information Feeding Method Contraceptive Method Maternal HG B and HCT Levels Ob Episode Information Episode Created Date Number of Fetuses Patient Bloodtype Patient rh Status Prepregnancy Weight lbs Domestic Partner Domestic Partner Phone Father Name Senior Software Engineering Manager Status 04/07/20 24 1 A Positive OPEN Fetus Data First Name Last Name Admitted to NICU Weight (g) Sex Living Outcome Pediatric Complications Fetus ID Race Codes Race Delivery Type [id number] Problems Problem Notes Problem Name Start Date End Date Resolution Snomed Code Not e Pre-eclampsia 09/22/2024 [id number] Type 2 diabetes mellitus 79953703 managed by [facility] ched [facility] 05/10 [facility] 06/28 US and office visitConsult 08/03/24NST & US 08/23/24 1:15PM to start 2xwkly testing at 32wks confirm if pt schedule MFM or our office?scheduled for US/BPP/NST weekly starting 06/02/24 pt decline Thursday NST pt scheduled on NST/OB Group B Streptococcus carrier [id number] + GBS in urine Rajeev Calculation Initial [...] Weight in lbs Pre/Post Dialysis Refused Weight 209.308661584300 BP Diastolic BP Location Tested BP Systolic [...] Type Weight in lbs Pre/Post Dialysis Refused 217.444391300697 BP Diastolic BP Location Tested BP Systolic [...] Type Weight in lbs Pre/Post Dialysis Refused 222.08028441260 BP Diastolic BP Location Tested BP Systolic [...] Type Weight in lbs Pre/Post Dialysis Refused 229.708838538635 BP Diastolic BP Location Tested BP Systolic [...] Weight in lbs Pre/Post Dialysis Refused Weight 231.848507432733 BP Diastolic BP Location Tested BP Systolic BP Type 75 L arm 116 sitting Fetus Heart Rate Present A 150 Fetus Movement A Yes Comments problem visit, vaginitis. Se e note. Flowsheet Date 07/28/2024 Alonso Score Blood Edema Fundus Height Fundus Units Glucose Ketones Leukocytes Nitrite Labor Signs Protein Cervic Dilation Cervic Effacement Cervic Station Type Weight in lbs Pre/Post Dialysis Refused Weight 231.867765914182 BP Diastolic BP Location Tested BP Systolic [...] Weight in lbs Pre/Post Dialysis Refused Weight 233.444265333850 BP Diastolic BP Location Tested BP Systolic [...] Weight in lbs Pre/Post Dialysis Refused Weight 242.2065173438 BP Diastolic BP Location Tested BP Systolic [...] Weight in lbs Pre/Post Dialysis Refused Weight 242.6769576091 BP Diastolic BP Location Tested BP Systolic BP Type 63 L arm 144 sitting Fetus Heart Rate Present Fetus Movement Comments Flowsheet Date 09/01/2024 Alonso Score Blood Edema Fundus Height Fundus Units Glucose Ketones Leukocytes Nitrite Labor Signs Protein Cervic Dilation Cervic Effacement Cervic Station Type Weight in lbs Pre/Post Dialysis Refused Weight 244.052106621906 BP Diastolic BP Location Tested BP Systolic [...] Weight in lbs Pre/Post Dialysis Refused Weight 244.057624619202 BP Diastolic BP Location Tested BP Systolic BP Type 87 L arm 137 sitting Fetus Heart Rate Present Fetus Movement Comments Flowsheet Date 09/08/2024 Alonso Score Blood Edema Fundus Height Fundus Units Glucose Ketones Leukocytes Nitrite Labor Signs Protein Cervic Dilation Cervic Effacement Cervic Station Type Weight in lbs Pre/Post Dialysis Refused Weight 243.024323600917 BP Diastolic BP Location Tested BP Systolic [...] Weight in lbs Pre/Post Dialysis Refused Weight 243.251733364250 BP Diastolic BP Location Tested BP Systolic [...] Weight in lbs Pre/Post Dialysis Refused Weight 247.278254482815 BP Diastolic BP Location Tested BP Systolic BP Type 71 L arm 122 sitting Fetus Heart Rate Present Fetus Movement Comments Flowsheet Date 09/15/2024 Alonso Score Blood Edema Fundus Height Fundus Units Glucose Ketones Leukocytes Nitrite Labor Signs Protein Cervic Dilation Cervic Effacement Cervic Station Type Weight in lbs Pre/Post Dialysis Refused 247.081314007463 BP Diastolic BP Location Tested BP Systolic [...] Weight in lbs Pre/Post Dialysis Refused Weight 249.176254706974 BP Diastolic BP Location Tested BP Systolic BP Type 92 L arm 146 sitting Fetus Heart Rate Present Fetus Movement Comments Flowsheet Date 09/22/2024 Alonso Score Blood Edema Fundus Height Fundus Units Glucose Ketones Leukocytes Nitrite Labor Signs Protein Cervic Dilation Cervic Effacement Cervic Station Type Weight in lbs Pre/Post Dialysis Refused 249.010438225362 BP Diastolic BP Location Tested BP Systolic BP Type 92 L arm 146 sitting Fetus Heart Rate Present A 145 Fetus Movement A Yes Comments elevated blood pressure, lik иван preeclamptic, to deliver at 37 weeks, [facility] managing blood sugars. To induce and [...]
--- OUTSIDE RECORDS SUMMARY | 2024-09-26 11:04 | XMS_ITS | Clinical Summary ---
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 Testing performed by: [address] [address] Blood 09/24/2023 8:42 AM CDT 09/24/2023 9:06 AM CDT aSjan Pollard MD LAB BLOOD ORDERABL ES Final Result Performing Organization Address City/[facility]/ZIP Co de Phone Number KELLEN [phone] [facility] [place] [address] * (ABNORMAL) Hemoglobin A1c (09/24/2023 8:42 AM CDT) Hgb A1C 6.8(H) 4.0 - 5.6 % Comment:Testing performed by : [address] [address] Estimated Average Glucose 148 mg/dL KELLEN Comment: The ADA recommends reporting an estimated Average Glucose (eAG) with all Hemoglobin A1c results using the equation derived from a study of 507 normal and diabetic adults. Minority populations were underrepresented and children were not included. (Diabetes Care 31:4419-5470, 2008). The eAG is not equivalent to a fasting glucose. Testing performed by: [address] [address] Blood 09/24/2023 8:42 AM CDT 09/24/2023 9:06 AM CDT Narrative KELLEN - 09/24/2023 9:40 AM CDT PRE SURGERY TESTING ONLY Sajan Pollard MD LAB BLOOD ORDERABL ES Final Result KELLEN [address] [facility] [place] [address] from Last 3 Months or Most Recently Relevant to Health Maintenance Insurance [facility] CHOICE PLUS [facility] HMO/PPO Address: [address] [address] [place] [address] [employer] OPEN ACCESS [employer] OPEN ACCESS Care Teams Vice President Quality Relationship Specialty Start Date End Date Chuck Nelson NP PCP - General 01/26/19 Christopher Nelson MD [address] [place] [address] Consulting Physician General Surgery 09/30/23
--- OUTSIDE RECORDS SUMMARY | 2024-09-26 11:04 | XMS_ITS | Clinical Summary ---
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
--- OUTSIDE RECORDS SUMMARY | 2024-09-26 11:23 | XMS_ITS | Continuity of Care Document ---
Author Organization [facility] Address [address] [place] [address] Phone Care Team Providers Care Bucket Pusher Name Role Phone Serg Caban MD Unavailable Ruchi vailable Medications Medication Instructions Dosage Effective Dates (start - stop) Status Comments triamcinolone acetonide 0.1 % Topical Cream apply by TOPICAL route 2 times every day a thin film to the affected skin areas - Active quantity in grams Procedures Procedure Date OFFICE/OUTPATIENT VISIT, [facility] OFFICE/OUTPATIENT VISIT, [facility] Advance Directives Directive Yes / No Effective Date File Name No Information Encounters Encounter Description Practice Location Reason(s) For Visit Diagnoses Date Provider Providers Copied on Encounter [facility] , [address], [place], [place], [address], tel:[phone] [facility] No Information Marlyn Ulrich. [address], [place], [place], [address], . tel:[phone] OFFICE/OUTPATI ENT VISIT, EST [facility] , [address], [place], [place], [address], tel:[phone] [facility] exam (chief complaint) Intestinal infection due to other organism, not elsewhere classified Marlyn Ulrich. [address], [place], [place], [address], . tel:[phone] [facility] , [address], [place], [place], [address], tel:[phone] [facility] No Information Marlyn Ulrich. [address], [place], [place], [address], [place]. tel:[phone] OFFICE/OUTPATI ENT VISIT, [facility] , [address], [place], [place], [address], tel:[phone] [facility] back pain (chief complaint) Backache Dominiquelorikelsey Ulrich. [address], [place], [place], [address], [place]. tel:[phone] Family History Family Member Type Diagnosis Age At Onset No Information Payers Payer name Insurance type Covered alliance party ID [facility](s) [facility] [id number] Social History Type Description Quantity Date Captured [...]
--- NOTE | 2024-10-16 21:11 | P.PNOB_ITS ---
OB - Triage/Final Diagnosis Visit Information Comments/Additional reasons for admission: I have assessed the risk for this patient, Yasmeen Ny, and determined that she would benefit from observation care. Evaluation Laboratory results: Laboratory Tests 09/25/24 01:46 WBC 10.6 H RBC 4.07 L Hgb 10.8 L Hct 34.1 L MCV 83.8 MCH 26.5 MCHC 31.7 L RDW 14.2 Plt Count 243 MPV 12.1 H Immature Gran % (Auto) 0.5 Neut % (Auto) 60.2 Lymph % (Auto) 32.6 [place] % (Auto) 5.9 Eos % (Auto) 0.6 Baso % (Auto) 0.2 Lymph # (Auto) 3.47 H [place] # (Auto) 0.6 Eos # (Auto) 0.1 Baso # (Auto) 0.0 Abs Immat Gran (auto) 0.05 H Absolute Neuts (auto) 6.4 Absolute Nucleated RBC 0.000 Nucleated RBC % 0.0 Sodium 132 L Potassium 4.1 Chloride 105 Carbon Dioxide 20 L Anion Gap 7 BUN 20 H D Creatinine 0.60 L Estim Creat Clear Calc Not Reportable Estimated GFR > 60 Glucose 115 H Uric Acid 5.7 Calcium 8.8 Total Bilirubin 0.2 AST 25 ALT 14 Alkaline Phosphatase 137 H Total Protein 6.4 Albumin 3.0 L Urine Color Yellow Urine Appearance Clear Urine pH 6.5 Ur Specific [place] 1.026 Urine Protein 3+ H Urine Glucose (UA) Negative Urine Ketones Trace H Ur Blood (Man) Negative Urine Nitrate Negative Urine Bilirubin Negative Urine Urobilinogen 0.2 Add Ur Microanalysis Reviewed Leukocyte Esterase Rfl 1+ H Urine RBC 0-2 Urine WBC 11-20 H Ur Squamous Epith Cells Moderate Urine Bacteria 4+ H Urine Casts 3-5 U Random Total Protein 272 Urine Creatinine 104.6 Protein/Creat Ratio 2 2.60 H Final Diagnosis (1) Abdominal pain: Code(s): R10.9 - Unspecified abdominal pain Status: Acute
== END 2024-09-25 05:51 | disposition home or self-care (01) ==
PROVIDERS: Admitting Provider Obstetrics & Gynecology; PCP Registered Nurse; Visit Provider Obstetrics & Gynecology
DX: O26.899 Other specified pregnancy related conditions, unspecified trimester (principal); R10.9 Unspecified abdominal pain; Z3A.00 Weeks of gestation of pregnancy not specified
CPT/HCPCS: 36415; 80053; 81001; 82570; 84156; 84550; 85025; 87086; 96374; G0378; G0379

== ENCOUNTER 2025-02-19 16:25 | Emergency (ER) | payer OTHER, SELFPAY ==
--- OUTSIDE RECORDS SUMMARY | 2013-08-24 16:44 | XMS_ITS | Continuity of Care Document ---
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 Name Role Phone Serg Caban MD Unavailable Ruchi vailable Medications Medication Instructions Dosage Effective Dates (start - stop) Status Comments triamcinolone acetonide 0.1 % Topical Cream apply by TOPICAL route 2 times every day a thin film to the affected skin areas - Active quantity in grams Procedures Procedure Date OFFICE/OUTPATIENT VISIT, [facility] OFFICE/OUTPATIENT VISIT, [facility] Advance Directives Directive Yes / No Effective Date File Name No Information Encounters Encounter Description Practice Location Reason(s) For Visit Diagnoses Date Provider Providers Copied on Encounter [facility] , [address], [place], [place], [address], tel:[phone] [facility] [place] No Information Marlyn Ulrich. [address], [place], [place], [address], . tel:[phone] OFFICE/OUTPATI ENT VISIT, EST [facility] , [address], [place], [place], [address], tel:[phone] [facility] [place] exam (chief complaint) Intestinal infection due to other organism, not elsewhere classified Marlyn Ulrich. [address], [place], [place], [address], . tel:[phone] [facility] , [address], [place], [place], [address], tel:[phone] [facility] [place] No Information Marlyn Ulrich. [address], [place], [place], [address], [place]. tel:[phone] OFFICE/OUTPATI ENT VISIT, [facility] , [address], [place], [place], [address], tel:[phone] [facility] [place] pain (chief complaint) Backache Dominiquelorikelsey Ulrich. [address], [place], [place], [address], [place]. tel:[phone] Family History Family Member Type Diagnosis Age At Onset No Information Payers Payer name Insurance type Covered democrat ID [facility](s) [facility] 2546 [id number] Social History Type Description Quantity Date Captured Comments Sex Female Smoking Status No Information Chief Complaint And Reason For Visit No Information Reason For Referral Reason For Referral No Information History Of Present Illness Encounter Date Complaint History Of Prese nt Illness No Information Functional Status Date Functional Assessmen t No Information Instructions Date Instruction Additional Infor mation No Information Assessments Type Assessment Date No Information Patient Care Teams Name Effective Dates (start - stop) Status Members No Information
--- OUTSIDE RECORDS SUMMARY | 2013-08-24 16:44 | XMS_ITS | Continuity of Care Document ---
Author Organization [facility] Address [address] [place] [address] Phone Care Team Providers Care Equity Director Name Role Phone Serg Caban MD Unavailable Ruchi vailable Medications Medication Instructions Dosage Effective Dates (start - stop) Status Comments triamcinolone acetonide 0.1 % Topical Cream apply by TOPICAL route 2 times every day a thin film to the affected skin areas - Active quantity in grams Procedures Procedure Date OFFICE/OUTPATIENT VISIT, [facility] OFFICE/OUTPATIENT VISIT, [facility] Advance Directives Directive Yes / No Effective Date File Name No Information Encounters Encounter Description Practice Location Reason(s) For Visit Diagnoses Date Provider Providers Copied on Encounter [facility] , [address], [place], [place], [address], tel:[phone] [facility] [place] No Information Marlyn Ulrich. [address], [place], [place], [address], . tel:[phone] OFFICE/OUTPATI ENT VISIT, EST [facility] , [address], [place], [place], [address], tel:[phone] [facility] [place] exam (chief complaint) Intestinal infection due to other organism, not elsewhere classified Marlyn Ulrich. [address], [place], [place], [address], . tel:[phone] [facility] , [address], [place], [place], [address], tel:[phone] [facility] [place] No Information Marlyn Ulrich. [address], [place], [place], [address], [place]. tel:[phone] OFFICE/OUTPATI ENT VISIT, [facility] , [address], [place], [place], [address], tel:[phone] [facility] [place] back pain (chief complaint) Backache Dominiquelorikelsey Ulrich. [address], [place], [place], [address], [place]. tel:[phone] Family History Family Member Type Diagnosis Age At Onset No Information Payers Payer name Insurance type Covered democrat ID [facility](s) [facility] 2546 [id number] Social History Type Description Quantity Date Captured [...]
--- NOTE | ~2025-02-19 | US_ITS ---
EXAMINATION: US OB <=14 wk fetus w TV DATE: 02/19/2025 21:14 INDICATION: Ectopic TECHNIQUE: Real-time pelvic ultrasound utilizing both a transvaginal and transabdominal probe was performed. The interpreting radiologist was not present for the study. COMPARISON: None. FINDINGS: The uterus measures 9.7 x 5.7 x 7.1 cm. There are few small anechoic nabothian cysts at the cervix. Endometrial complex measures 1.6 cm in thickness.There is no evident intrauterine gestational sac. The right ovary measures 3.3 x 2.8 x 3.2 cm. 2.3 cm thick-walled centrally anechoic corpus luteum cyst in the right ovary. The left ovary measures 2.3 x 2.2 x 2.1 cm. No adnexal lesion suspicious for ectopic There is no free fluid in the pelvis. IMPRESSION: 1. No evident intrauterine gestational sac for which differential would include early , failed or nonvisualized ectopic . Recommend follow-up with serial beta-hCG levels with repeat imaging as clinically indicated. Reviewed, dictated and finalized at location A. RIGGER IMPRESSION: 1. No evident intrauterine gestational sac for which differential would include early , failed or nonvisualized ectopic . Recommen d follow-up with serial beta-hCG levels with repeat imaging as clinically indic ated.
[2025-02-19 16:27] VITALS: BP 149/89; PULSE 95; RESP 16; TEMP 36.4; O2SAT 95
--- OUTSIDE RECORDS SUMMARY | 2025-02-19 16:27 | XMS_ITS | Encounter Summary ---
Author Organization [facility] Address [address] [facility] [place] [address] Care Team Providers Care Drug Abuse Resistance Education Officer Name Role Phone Chuck Nelson [employer] SUPPORT TEACHER-SUPERVISOR [employer] Primary Care Pro vider Reason for Visit * Reason Onset Date Comments MEDICATION REFILL 05/23/2024 Encounter Details Date Type Department Care Team (Late st Contact Info) Description 05/23/2024 Refill [facility] EVALUATION [facility] [address] [facility] [place] [address] Luana Plummer MD [address] [facility] [address] [place] [id number] MEDICATION REFILL Social History Tobacco Use Types [...] and heating? Not hard at all 02/24/2024 [facility] [place] [facility] Occupat ional [facility] - Occupational Stress [...] things needed for daily living? No 02/24/2024 [place] Depression Scale Answer Date Recorded [place] Depression Scale Total 1 03/01/2024 The thought [...] a skilled nursing (including now)? Yes 02/24/2024 Comments Yes Sex and Gender Information Value Date Recorded Sex Assigned at Not on file Legal Sex Female 2:51 PM CDT Gender Identity Not on file Sexual Orientation Not on file documented as of this encounter Plan of Treatment Not on file documented as of this encounter Visit Diagnoses Diagnosis Pre-existing type 2 diabetes mellitus during , antepartum (HCC) documented in this encounter Care Teams Drug Abuse Resistance Education Officer Relationship Specialty Start Date End Date Chuck Nelson APRN-EMILY [address] [place] [phone] PCP - General Nurse Practitioner 08/25/22 documented as of this encounter
--- OUTSIDE RECORDS SUMMARY | 2025-02-19 16:27 | XMS_ITS | Encounter Summary ---
Author Organization [facility] Address [address] [place] [address] Care Team Providers Care Lawnmower Repair Mechanic Name Role Phone Chuck Nelson SUPERVISOR [employer] Primary Care Pro vider Reason for Visit * Reason Comments Refill Request Encounter Details Date Type Department Care Team (Late st Contact Info) Description 09/06/2024 Refill [facility] EVALUATION UN[facility] [address] [facility] [place] [address] Luana Plummer MD [address] [facility] [address] [place] [phone] Refill Request Social History Tobacco [...] and heating? Not hard at all 08/23/2024 [place] [facility] - Occupational Stress [...] things needed for daily living? No 08/23/2024 [place] Depression Scale Answer Date Recorded [place] Depression Scale Total 1 03/01/2024 The thought [...] in a long-term (including now)? No 08/23/2024 Comments Yes Sex and Gender Information Value [...] (HCC) documented in this encounter Care Teams Lawnmower Repair Mechanic Relationship Specialty Start Date End Date Chuck Nelson APRN-EMILY [address] [place] [phone] PCP - General Nurse Practitioner 08/25/22 documented as of this encounter
--- OUTSIDE RECORDS SUMMARY | 2025-02-19 16:27 | XMS_ITS | Data Portability ---
Author Organization [facility], [facility] Address [address] [place] [address] [place] [address] Care Team Providers Care Security Clerk Name Role Phone CHEN CRAIG Primary Care Provider Assessment Encounter Date Assessment Date Assessment LastModified by Organization Details LastModified Time 09/22/2024 09/22/2024 Patient is ___weeks . Discussed plan. [email or web address] Not available 09/22/2024 15:24:21 Plan of Treatment Reminders Order Date Submit Date Provider Last Modified By Organization Details Last Modified Time Details Appointments None recorded. Lab None recorded. Referral None recorded. Procedures None recorded. Surgeries None recorded. Imaging non-stress test 2024 025 [email or web address] [address], [address], [place], [address], 17:02:37 non-stress test 2024 025 [email or web address] [address], [address], [place], [address], 16:45:10 Medication Orders labetalol 200 mg tablet 2024 025 [facility], [address], [place], [address], 15:32:53 Patient TargetsNo targets recorded. Patient InstructionsNo instructions recorded. Reason for Referral None Reported. Results Created Date Observation Date Name Description Value Unit Range Abnormal Flag Note LastModifiedBy Organization Detail LastModifiedTime 09/16/19 25 09/15/2024 CULTU RE: GROUP B STREP SCREE N, REFLE X SUSCE PTIBI LITY result report SEE RESULT S BELOW abnormal Test: Cultu re: Group B Strep , Refle x Susce ptibi lity ([facility] ) Speci men Sourc e: Vagin a/Rec lynne Speci men Type: Vagin al/Re ctal Speci men Date: 2024 1649 Resul t Date: 025 1802 Resul t Statu s: Final resul t Abnor mal: Yes Resul ting Lab: [facility] [address] [facility] [address] Tel: CULTU RE ----- ----- ----- --- [...] at high risk for anaph ylaxi s. Susce ptibi lity testi ng is not neces susan for these drugs . Not Available [facility] (Lab) [address], [place], [address], 09/20/2024 19:05:42 08/26/19 25 08/23/2024 US, obste tric, follo w-up No observ ation record ed. [email or web address] [facility] [address], [place], [address], 08/26/2024 16:05:55 08/26/19 25 08/25/2024 non-s tress test No observ ation record ed. [email or web address] [address], [place], [address], 08/25/2024 16:29:32 09/01/19 25 08/30/2024 US, obste tric, follo w-up No observ ation record ed. [email or web address] [facility] [address] [facility], [place], [address], 09/01/2024 14:44:52 09/02/19 25 09/01/2024 non-s tress test No observ ation record ed. [email or web address] [address], [place], [address], 09/01/2024 16:07:12 09/08/19 25 09/06/2024 US, obste tric, follo w-up No observ ation record ed. [email or web address] [facility] [place] [address], [place], [address], 09/20/2024 18:38:36 09/09/19 25 09/08/2024 non-s tress test No observ ation record ed. [email or web address] [address], [place], [address], 09/08/2024 16:31:27 09/09/19 25 09/08/2024 US, obste tric, limit ed No observ ation [facility] ed. [email or web address] [address], [place], [address], 09/08/2024 17:53:42 09/09/19 25 09/08/2024 US, obste tric, limit ed No observ ation record ed. [email or web address] [address], [place], [address], 09/15/2024 11:13:07 09/16/19 25 09/13/2024 US, obste tric, follo w-up No observ ation record ed. [email or web address] [facility] [address] [facility], [place], [address], 09/20/2024 16:45:35 09/16/19 25 09/15/2024 non-s tress test No observ ation record ed. [email or web address] [address], [place], [address], 09/15/2024 15:48:04 09/23/19 25 09/22/2024 non-s tress test No observ ation record ed. [email or web address] [address], [place], [address], 09/23/2024 22:42:49 09/27/19 25 09/22/2024 US, obste tric, follo w-up No observ ation record ed. [email or web address] [facility] [place] [address] [facility], [place], [address], 09/27/2024 13:07:14 10/09/19 25 10/08/2024 non-s tress test No observ ation record ed. [address], [address], 10/11/2024 14:54:14 10/12/19 25 10/11/2024 non-s tress test No observ ation record ed. [address], [address], 10/13/2024 11:13:15 10/29/19 25 10/28/2024 non-s tress test No observ ation record ed. [address], [address], 11/01/2024 08:16:37 Result Notes None recorded. Problems Name Problem SNOMED Code Status Onset Date Resolution Date Notes Provider Name and Address Organization Details Recorded Time Type 2 diabetes mellitus 80215502 Completed Metformi n xr 2000mg qd Sent to [facility] for manageme nt- 05/16- NPH 26U AM/88U PM Increase 2 units when 1 consecut wili fasting >90 / Humalog 16U w/ bfast & 8Uw/ lunch & 32U w/ dinner. 6units with snack over 15g carbs. [facility] 13:40:41 Purpuric rash 171908461 Completed clotimaz ole/beta methazon e-Rxed Nhi white [facility] 1 13:40:41 Dilatati on of renal pelvis Completed - bilatera l - growth u/s Nhi white [facility] 1 13:40:41 Large for gestatio n age fetus 358103643 Completed potentia l 89% 05/11 Nhi white [facility], [facility] 1 13:40:41 Type 2 diabetes mellitus 09242866 Completed managed by [facility] Sched [facility] 05/10 [facility] 06/28 and office visit Consult 08/03/24 NST & US 08/23/24 1:15PM to start 2xwkly antenata l testing at 32wks confirm if pt schedule [facility] or our office? schedule d for US/BPP/N ST weekly onTuesda ys starting 06/02/24 pt decline Thursday NST pt schedule d on s NST/OB Jennisara Diaz [facility], [facility] 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 5 13:09:37 Group B Streptoc occus carrier [id number] 103 Active + GBS in urine Jenni Diaz [facility] 5 13:09:37 Screenin g for malignan t neoplasm of cervix Completed 201104/26/2020 Pap Smear;Pr actice ID: [address] [facility] 14:53:52 Ill-defi meño intestin al infectio n Completed 201104/26/2020 No Show Fee;Prac sarath ID: [address] [facility] 14:54:20 Amenorrh ea 95832774 Completed 201105/08/2020 AMENORRH EA;Pract ice ID: [address] [facility] 12:09:33 Pregnanc y test negative 332919264 Completed 201104/26/2020 Negative Pregnanc y Test;Pra ctice ID: [address] [facility] 14:53:57 Female genital organ symptoms 308618817 Completed 201104/26/2020 Unspecif ied symptom associat ed with female genital organs;R ecorded Elsewher e: No Locat ion: Saji sandoval [facility] S ource: EHR Sfdc Architect ashlyn: N Practi ce ID: 0001 Ezio lable Time: 03:00:[address] [facility] 14:54:25 Obesity 371779226 Completed 201305/08/2020 LD ASA per MFM Yadira Mckeon [facility] 12:09:42 Obesity 086626128 Completed 2013 LD ASA per MFM Nhi white [facility] 13:40:41 Polycyst ic ovaries Completed 201305/08/2020 Polycyst ic ovaries; Practice ID: 0001 Yadira Mckeon null, [facility] 12:09:44 Migraine 52409813 Completed 201305/08/2020 Migraine , unspecif ied without mention of intracta ble migraine ;Practic e ID: 0001 Yadira zamarripa [facility] 12:09:40 Metaboli c syndrome X 461569253 Completed 201305/08/2020 Insulin resistan ce;Recor ded Elsewher e: No Locat ion: [facility] S ource: EHR Sfdc Architect ashlyn: N Practi ce ID: 0001 Ezio lable Time: 09:45:00 AM Yadira zamarripa [facility] 12:09:39 Speciali zed medical examinat ion Completed 201404/26/2020 ROUTINE TABLE FILLER EXAMINAT ION;Conrad rded Elsewher e: No Locat ion: [facility] S ource: EHR Sfdc Architect ashlyn: N Practi ce ID: 0001 Ezio lable Time: 03:15:00 PM Jorge zamarripa [facility] 14:53:39 Adult health examinat ion Completed 201404/26/2020 Routine general medical examinat ion at a health care facility ;Practic e ID: 0001 Jorge zamarripa [facility] 14:54:37 Speciali zed medical examinat ion Completed 201404/26/2020 Other specifie d chlamydi al diseases ;Practic e ID: 0001 Jorge zamarripa [facility] 14:53:40 Venereal disease screenin g Completed 201404/26/2020 Screenin g examinat ion for venereal disease; Practice ID: 0001 Jorge Diaz marilou [facility] 14:53:46 Body mass index 30+ - obesity 100589449 Completed 201505/08/2020 Body mass index (BMI) 45.0-49. 9, adult;Re corded Elsewher e: No Locat ion: Saji sandoval [facility] S ource: EHR Sfdc Architect ashlyn: N Practi ce ID: 0001 Ezio lable Time: 05:30:[address] [facility] 12:09:36 Syphilis test finding 809799934 Completed 201504/26/2020 Encntr screen for infectio ns w sexl mode of transmis s;Record ed Elsewher e: No Locat ion: [facility] S ource: EHR Sfdc Architect ashlyn: N Practi ce ID: 0001 Ezio lable Time: 05:30:[address] [facility] 14:53:[address] Concept Completed 201504/26/2020 Encntr for transplant immunologist exam (general ) (routine ) w/o abn findings ;Practic e ID: [address] [facility] 14:53:34 Infectio n screenin g Completed 201504/26/2020 Encounte r for screenin g for oth infec/pa rastc diseases ;Recorde d Elsewher e: No Locat ion: [facility] S ource: EHR Sfdc Architect ashlyn: N Practi ce ID: 0001 Ezio lable Time: 05:30:00 PM [facility] 14:54:11 Clinical finding Completed 201504/26/2020 Obesity, unspecif ied;Prac sarath ID: [address] [facility] 14:54:15 Severe obesity 9282177158 9104 Completed 201504/26/2020 Morbid (severe) obesity due to excess calories ;Practic e ID: [address] [facility] 14:54:02 Primary amenorrh ea 048638005 Completed 201704/26/2020 Primary amenorrh ea;Pract ice ID: [address] [facility] 14:53:54 Finding of fertilit y Completed 201704/26/2020 Female infertil ity, unspecif ied;Prac sarath ID: [address] [facility] 14:54:13 Dysuria 16394165 Completed 201704/26/2020 Dysuria; Practice ID: [address] [facility] 14:54:[address] Concept Completed 201704/26/2020 Encntr for general adult medical exam w/o abnormal findings ;Recorde d Elsewher e: No [facility] S ource: EHR Sfdc Architect ashlyn: N Richarti ce ID: 0001 Ezio lable Time: 08:30:[address] [facility] 14:53:36 Acute vaginiti s 80042789 Completed 201705/08/2020 Acute vaginiti s;Practi ce ID: [address] [facility] 12:09:31 Diabetes mellitus 90746107 Completed 201905/08/2020 type [address] [facility] 12:09:37 Anxiety 31662004 Completed 201905/08/[address] [facility] 12:09:34 Abnormal cervical Papanico laou smear 679334187 Completed 201905/08/20202014 Yadiraconnor Mckeon marilou, [facility] 12:09:30 Anxiety 82820935 Completed 2019 Destinit Nhi white marilou, [facility] 13:40:41 Pregnanc y 50986183 Completed 201905/08/2020 Nehal zamarripa, [facility] 5 15:16:01 Marginal insertio n of umbilica l cord 33078840 Completed 2019 [facility] u/s Nhi white marilou, [facility] 13:40:41 Pre-exis ting type 2 diabetes mellitus in pregnanc y 558779326 Completed 2020 DELIVER BY 37- [facility] ed. MFM may rec earlier. Nhi white marilou, [facility] 13:40:41 Pre-exis ting type 2 diabetes mellitus in pregnanc y 076016114 Completed 202005/08/2020 Yadiraconnor Mckeon marilou, [facility] 12:09:45 Pregnanc y 96202850 Completed 202310/05/2024 Nehal zamarripa, [facility] 5 15:16:01 Pre-ecla mpsia 868260208 Completed 2024 Dante Aponte MD [address], [place], [address], , P.C. 5 16:02:57 Problem Notes None recorded. Procedures Surgical History Date Name Laterality Status Provider Name and Address Organization Details Recorded Time 02/08/20 25 IUD Insertion completed Nehal Marcello [facility] 02/07/2025 10:47:40 03/01/20 24 Date of Last Pap Smear completed Nehal Armendariz [facility] 04/07/2024 18:07:50 09/02/19 23 IUD Removal completed Dante Aponte MD [address], [place], [address], , P.C. 09/01/2022 22:15:29 05/19/19 23 Colposcopy completed Dante Aponte MD [address], [place], [address], , P.C. 05/19/2022 15:31:57 05/19/19 23 Colposcopy completed Alva Kimble [facility] 03/09/2023 16:31:33 05/19/19 23 Colposcopy completed Sarah Jordan [facility] 05/19/2022 14:35:43 07/28/19 22 IUD Insertion completed Dante Aponte MD [address], [place], [address], , P.C. 07/27/2021 12:17:49 05/22/19 21 NST completed Bel Dennison MD [address], [place], [address], , P.C. 05/22/2020 14:09:48 05/15/19 21 NST completed Bel Dennison MD [address], [place], [address], , P.C. 05/15/2020 13:43:28 04/27/19 21 NST completed Bel Dennison MD [address], [place], [address], , P.C. 04/27/2020 12:17:14 04/20/19 15 Tonsillectomy completed Alva Kimble [facility] 11/09/2019 16:35:35 Imaging Results None recorded. Procedure Notes None recorded. Medical Equipment None Reported. Allergies Allergen ID Allergen Name Allergen Category Reaction Reaction Severity Criticality Documentation Date Start Date Code Code System Note Provider Name and Address Organization Details Recorded Time 1407 lisinopri l medicatio n rash Not available Not available 11/09/2019 20138 RxNorm Alva Kimble [facility], [facility] 0 11:13:14 Medications Name Sig [...] TAKE 1 TABLET BY MOUTH ONCE DAILY WITH DINNER FOR 3 DAYS, THEN 1 TABLET TWICE DAILY WITH MORNING AND EVENING MEAL FOR 3 DAYS, THEN 2 TABLETS TWICE DAILY WITH MORNING AND EVENING MEAL. active Not Available Not Available No t Available promethaz ine-DM 6.25 mg-15 mg/5 mL oral syrup 07/27 completed Not Available Not Available Not Available prednison e 10 mg tablet 11/08 completed Not Available Not Available Not Available atorvasta tin 20 mg tablet TAKE 1 TABLET BY MOUTH ONCE DAILY 02/21 completed Not Available Not Available Not Available labetalol 200 mg tablet TAKE 1 TABLET BY [...] Prescrib ed Elsewher e: Yes Loca tion: [facility] odify By: [email or web address] Mavis ncounter DateTime : 02/13/20 17 03:00:00 PM [...] Not Available Not Available No t Available ciproflox acin 500 mg tablet TAKE [...] for 5 nights 10/13 completed Prescrib ed Yokoher e: No [facility] odify By: dmrose E ncounter DateTime : [...] morning and evening 11/20 completed Prescrib ed Kamille e: No Locat ion: [facility] odify By: kashif sofia DateTime : 10/14/19 08:30:00 AM Not Available [...] Not Available Not Available Not Available ibuprofen 600 mg tablet TAKE 1 TABLET BY MOUTH EVERY 6 HOURS NEEDED FOR PAIN active Not Available Not Available No t Available methylpre dnisolone 4 mg tablets in [...] Not Available Not Available No t Available ketoconaz ole 2 % topical cream apply by topical route 2 times every day for 4 weeks to the affected area(s) 06/17 completed Prescrib florecita Simental e: No Locat ion: Saji sandoval [facility] Raghavendra melo By: karine calix DateTime : 05/21/19 16 05:30:00 PM Not Available Not Available Not Available nifedipin e ER 60 mg tablet,ex tended release TAKE 1 TABLET BY MOUTH ONCE DAILY active Not Available Not Available No t Available clobetaso l 0.05 % scalp solution [...] route every day 08/19 [facility] Loc[facility] ion: [facility] odify By: [email or web address] trick En counter DateTime : 01/16/20 12 03:00:00 PM Not Available Not Available Not Available FeroSul 325 mg (65 mg iron) tablet TAKE 1 TABLET BY MOUTH ONCE DAILY active Not Available Not Available No t Available Lantus Solostar U-100 Insulin 100 unit/mL [...] morning and evening 02/12 completed [facility]crib ed [facility] Locat ion: [facility] M odify By: claire connorunter DateTime : 06/07/19 01:29:48 PM Not Available [...] Available No t Available FreeStyle Herrera 2 [place] 07/06 completed Not Available Not Available Not [...] Not Available Dexcom G7 Sensor device USE CONTINUO USLY FOR 10 DAYS active Not Available Not Available No t Available Vitals Date Recorded Body weight Systolic And Diastolic Provider Name and Address Organization Details Last Updated DateTime 09/15/2024 058505.77658 g 122/77 mm[Hg] [facility] 09/15/2024 15:47:22 Date Recorded Body height Body mass index (BMI) Body weight Systolic And Diastolic Provider Name and Address Organization Details Last Updated DateTime 09/15/2024 158.75 cm 44.5 kg/m2 802867.32 g 122/71 mm[Hg] DIANE [facility] 09/15/2024 15:44:16 Date Recorded Body weight Systolic And Diastolic Provider Name and Address Organization Details Last Updated DateTime 09/22/2024 230257.51117 g 146/92 mm[Hg] [facility] 09/22/2024 15:26:24 Date Recorded Body height Body mass index (BMI) Body weight Systolic And Diastolic Provider Name and Address Organization Details Last Updated DateTime 09/22/2024 158.75 cm 44.8 kg/m2 519513.5 g 146/92 mm[Hg] [facility] 09/22/2024 16:58:54 Date Recorded Body height Body mass index (BMI) Body weight Systolic And Diastolic Provider Name and Address Organization Details Last Updated DateTime 10/05/2024 158.75 cm 41 kg/m2 607918.06 g 154/97 mm[Hg] [facility] 10/05/2024 15:13:53 Date Recorded Body height Body mass index (BMI) Body weight Systolic And Diastolic Provider Name and Address Organization Details Last Updated DateTime 02/07/2025 158.75 cm 39.1 kg/m2 69186.54 g 132/86 mm[Hg] [facility] 02/07/2025 10:47:58 Social History Question Answer Notes LastModified by Organizat ion Details LastModified Time Tobacco Smoking Status Never Smoker Alva Kimble [facility] 11/09/2019 16:27:58 Are You Blind Or Do You Have Difficulty Seeing? No Information n ot available 03/09/2023 What Is Your Level Of Caffeine Consumption? Occasional [email or web address] Information not available 03/09/2023 In The 14 Days Before Symptom Onset, Have You Had Close Contact With A Laboratory-confirm ed COVID-19 While That Case Was Ill? No [email or web address] Information n ot available 03/09/2023 In The 14 Days Before Symptom Onset, Have You Had Close Contact With A Person Who Is Under Investigation For COVID-19 While That Person Was Ill? No [email or web address] Information not available 03/09/2023 Have You Been To An Area Known To Be High Risk For COVID-19? No [email or web address] Information not available 03/09/2023 Are You Deaf Or Do You Have Serious Difficulty Hearing? No [email or web address] Information not available 03/09/2023 What Type Of Diet Are You Following? DIABETIC [email or web address] Information n ot available 03/09/2023 Which Illicit Or Recreational Drugs Have You Used? [place] [email or web address] Information not available 11/09/2019 What Was The Date Of Your Most Recent Tobacco Screening? 03/09/2023 [email or web address] Information not available 03/09/2023 Do You Use Your Seat Belt Or Car Seat Routinely? Yes [email or web address] Information not available 03/09/2023 Do You Have Smoke And Carbon Monoxide Detectors In Your Home? Yes [email or web address] Information not available 03/09/2023 How Much Tobacco Do You Smoke? No [email or web address] Information not available 11/09/2019 Do You Use Sunscreen Routinely? Yes [email or web address] Information not available 03/09/2023 Do You Have Difficulty Walking Or Climbing Stairs? No [email or web address] Information not available 03/09/2023 Sex: Unknown Functional Status Question Answer Note LastModified by Organizat ion Details LastModified Time What is your level of alcohol consumption? Occasional [email or web address] Information not available 11/09/2019 Do you or have you ever used smokeless tobacco? Never used smokeless tobacco [email or web address] Information not available 11/09/2019 Are you able to walk independently without assistance or assistive devices? YESWOREST [email or web address] Information not available 03/09/2023 Are you able to care for yourself independently? Yes [email or web address] Information not available 03/09/2023 Do you have difficulty dressing, bathing, grooming, or toileting? No [email or web address] Information not available 03/09/2023 Do you or have you ever used e-cigarettes or vape? Never used electronic cigarettes [email or web address] Information not available 11/09/2019 What is your exercise level? Occasional [email or web address] Information not available 11/09/2019 Mental Status Question Answer Note LastModified by Organization D etails LastModified Time Do you feel stressed (tense, restless, nervous, or anxious, or unable to sleep at night)? [id number] [email or web address] Information not available 03/09/2023 Family History Relationship Description Onset Age of this Age Resolved Age Notes LastModified by Organization Details LastModified Time Maternal Grandmother Diabetes mellitus [email or web address] Not available 11/08 16:27:24 Maternal Aunt Diabetes mellitus [email or web address] Not available 11/08 16:27:24 Maternal Aunt Malignant neoplasm of cervix uteri [email or web address] Not available 16:27:36 Maternal Aunt Malignant neoplasm of breast [email or web address] Not available 11/08 16:27:47 Medical History Condition [...] Pap Y Flow Moderate Date of LMP 01/14/2025 Was last menstrual period normal Y STIs/STDs Y HPV Vaccine N Colposcopy 05/19/2022 Duration of Flow (days) 5 Current Control Method IUD Are cycles usually normal Y Frequency of Cycle (Q days) 28 Sexually Active? Y Menses Monthly Y Date of Last Pap Smear 03/01/2024 Sexual Problems? N Desired Control Method LMP Definite Obstetrics History GPAL:G 2 P 1 1 0 2 Type Value Full Term 1 Premature 1 Living 2 Total 2 Past Encounters Encounter ID Performer Location Encounter Start Date Encounter Closed Date Diagnosis/Indication Diagnosis SNOMED-CT Code Diagnosis ICD10 Code Diagnosis IMO Codes Diagnosis Note [id number] Franci Wyman [facility] [address] [address] 11/09/2019 10:35:05 11/09/2019 12:09:35 [id number] Dante Aponte MD [facility] [address],[place] [address] 11/09/2019 10:36:18 11/09/2019 13:42:01 [id number] Dante Aponte MD [facility] [address],[place] [address] 12/09/2019 10:39:11 12/09/2019 12:29:37 screening 369264787 Z36.82 Z36.0 Z36.89 Pruritic rash 08584830 L 28.2 Routine an tenatal care 423416555 Z34.01 [id number] Dante Aponte MD [facility] [address],[place] [address] 12/09/2019 10:39:39 12/09/2019 11:48:03 screening 015719914 Z36.82 Z36.0 Z36.89 MD Roxana Posada [address],[place] [address] 01/06/2020 11:18:19 01/06/2020 12:48:28 Gestational diabetes mellitus class A2 79765470 O24.414 [id number] MD Roxana Posada [address],[place] [address] 01/06/2020 11:18:55 01/06/2020 14:59:05 [id number] MD Roxana Posada [address],[place] [address] 02/03/2020 09:30:52 02/03/2020 12:31:48 screening for malformation 784472280 Z36.3 [id number] Franci Wyman [facility] [address],[place] [address] 02/03/2020 09:31:14 02/03/2020 13:25:47 Routine care 455234278 Z34.92 [id number] MD Roxana Posada [address],[place] [address] 02/24/2020 14:40:59 02/24/2020 16:52:22 Headache 19823608 R51.9 Anxiety [id number] F41.9 [id number] Dante Aponte MD [facility] [address],[place] [address] 03/02/2020 09:24:54 03/02/2020 10:41:38 screening 457451717 Z36.2 O35.8XX0 O43.92 O24.112 Z3A.24 [id number] Franci Wyman [facility] [address],[place] [address] 03/02/2020 09:25:14 03/02/2020 10:41:22 Routine care [id number] Z34.92 [id number] Franci Wyman [facility] [address],[place] [address] 1 03/30/2020 12:05:24 03/30/2020 14:10:47 Routine care 889005694 Z34.92 [id number] MD Gayle [place] [address],[place] [address] 1 04/11/2020 13:45:33 04/11/2020 14:43:39 Pre-existing type 2 diabetes mellitus in 953046010 O24.119 [id number] MD Gayle [place] [address],[place] [address] 1 04/27/2020 11:06:25 04/27/2020 12:38:33 Pre-existing type 2 diabetes mellitus in 491736202 O24.119 [id number] MD Gayle [place] [address],[place] [address] 1 04/27/2020 11:06:44 04/27/2020 12:43:55 Gestational diabetes mellitus class A2 33103627 O24.414 [id number] Dante Aponte MD [facility] [address],[place] [address] 1 05/01/2020 11:25:52 05/01/2020 12:33:58 Gestational diabetes mellitus class A2 01016663 O24.414 [id number] Dante Aponte MD [facility] [address],[place] [address] 1 05/01/2020 11:27:17 05/01/2020 12:39:16 Routine care 098379853 Z34.01 [id number] Dante Aponte MD [facility] [address],[place] [address] 1 05/08/2020 11:29:34 05/08/2020 12:15:11 Gestational diabetes mellitus class A2 77850638 O24.414 [id number] Grazyna Rubin [facility] [address],[place] [address] 1 05/08/2020 11:30:35 05/08/2020 12:42:05 Routine care 494715930 Z34.93 [id number] MD Gayle [place] [address],[place] [address] 1 05/15/2020 11:29:25 05/15/2020 12:47:10 Gestational diabetes mellitus class A2 41680597 O24.414 [id number] MD Roxana [place] [address],[place] [address] 1 05/15/2020 11:30:12 05/15/2020 14:05:54 Pre-existing type 2 diabetes mellitus in 454957785 O24.119 [id number] MD Gayle [place] [address],[place] [address] 1 05/22/2020 11:36:06 05/24/2020 16:00:09 Gestational diabetes mellitus class A2 50758915 O24.414 [id number] Bel Dennison MD [facility] [address],[place] [address] 1 05/22/2020 11:37:01 05/23/2020 11:05:33 Pre-existing type 2 diabetes mellitus in 247630455 O24.119 Reduced fe sven movement 830321723 O36.8199 [id number] Dante Aponte MD [facility] [address],[place] [address] 1 05/22/2020 12:11:38 05/24/2020 11:07:14 condition affecting obstetrical care of mother 000705242 O36.8330 [id number] Dante Aponte MD [facility] [address],[place] [address] 1 07/06/2020 15:53:54 07/06/2020 16:45:54 Anxiety 86372561 F41.9 care 74840701 8 Z39.0 Patient is a 29-year-ol d [...] sertraline . She will in 1 month. [id number] Dante Aponte MD [facility] [address],[place] [address] 07/27/2021 11:51:04 07/27/2021 12:18:19 Contraception care management 556579281 Z30.9 IUD was inserted without complicati ons. Insertion of intrauterine contraceptive device 27404598 Z30.430 [id number] Dante Aponte MD [facility] [address],[place] [address] 04/25/2022 10:39:12 04/25/2022 13:43:15 Gynecologic examination 16527087 Z01.419 Annual gynecologi amy exam performed. Patient [...] Cholestero l - done Pap - today [id number] Dante pAonte MD [facility] [address],[place] [address] 05/19/2022 13:54:03 05/19/2022 15:37:59 Dysplasia of cervix 13867451 N87.9 colposcopi c examinatio n was performed and biopsies were performed. Three biopsies and an ECC were performed and she tolerated it well. [id number] Dante Aponte MD [facility] [address],[place] [address] 09/01/2022 16:33:00 09/02/2022 14:30:51 Vulval irritation 572672182 N90.89 Contracept ion care management 328920824 Z30.9 IUD was inserted without complicati ons. Urinary tr act infectious disease 53483884 N39.0 patient reported urinary symptoms. [id number] BLAKE Vaughn [facility] [address],[place] [address] 03/09/2023 16:32:50 03/10/2023 09:09:00 Contraception care management 692520505 Z30.9 Discussed all BC methods in-depth, r/b/a [...] counseling and review of plan of care. [id number] JOELLE MCLEAN MD [facility] [address],[place] [address] 05/13/2023 12:18:10 05/14/2023 08:54:53 Vaginitis 02496048 N76.0 - swab sent, follow up on results as available [facility] management 260883539 Z30.9 - unhappy with slynd, would like Paraguard IUD placement- patient to call with next period for placement Recurrent urinary tract infection 477934451 N39.0 - patient to call for urine culture if symptoms recur, currently resolved- consider postcoital or daily ppx if recurrent [id number] Dante Aponte MD [facility] [address],[place] [address] 02/22/2024 10:09:21 02/22/2024 12:07:46 Ectopic 10048720 O00.90 this patient is a 33-year-ol d [...] the week. this problem has marked complexity [id number] MD Roxana Posada [address],[place] [address] 02/22/2024 10:52:45 02/22/2024 11:37:21 Low back pain in 5518901389 106 O26.899 O36.80X9 Z3A.01 [id number] MD Roxana Posada [address],[place] [address] 04/07/2024 16:30:33 04/07/2024 17:49:14 screening 668826396 Z36.82 Z3A.12 [id number] MD Roxana Posada [address],[place] [address] 1 04/07/2024 16:31:11 04/08/2024 09:39:28 Gestation period, 12 weeks 91567978 Z3A.12 [id number] MD Roxana Posada [address],[place] [address] 1 05/05/2024 16:13:19 05/05/2024 17:37:08 [id number] MD Roxana Posada [address],[place] [address] 1 05/05/2024 17:30:23 05/05/2024 17:49:36 [id number] MD Roxana Posada [address],[place] [address] 1 06/02/2024 16:32:48 06/02/2024 17:33:53 Routine care 477038163 Z34.01 [id number] MD Roxana Posada [address],[place] [address] 1 06/30/2024 13:38:23 06/30/2024 14:25:45 Routine care 122036543 Z34.01 [id number] MD Roxana ROJAS [address],[place] [address] 1 07/18/2024 16:43:22 07/18/2024 17:20:55 Vaginitis 15662686 N76.0 - tried OTC monistat without relief- swab sent, follow up on results as available [id number] MD Roxana Posada [address],[place] [address] 1 07/28/2024 13:50:41 07/28/2024 15:00:44 Routine care 886430671 Z34.01 [id number] MD Roxana Posada [address],[place] [address] 1 08/08/2024 14:01:40 08/08/2024 14:36:37 care status 196121050 Z34.83 71881314 [id number] MD Roxana Posada [address],[place] [address] 1 08/25/2024 14:41:30 08/25/2024 15:26:20 care status 732875892 Z34.83 63420254 [id number] MD Roxana Posada [address],[place] [address] 1 08/25/2024 16:28:05 08/25/2024 16:32:44 Past history of gestational diabetes mellitus 077513901 Z86.32 998578 [id number] MD Roxana Posada [address],[place] [address] 09/01/2024 13:22:25 09/01/2024 16:18:24 Gestational diabetes mellitus class A2 67895426 O24.419 11594374 [id number] MD Roxana Posada [address],[place] [address] 1 09/01/2024 13:22:47 09/05/2024 00:58:57 care status 021470097 Z34.83 67899456 [id number] MD Roxana Posada [address],[place] [address] 09/08/2024 15:33:55 09/08/2024 16:50:33 Gestational diabetes mellitus 03249936 O24.410 16563042 [id number] MD Roxana Posada [address],[place] [address] 1 09/08/2024 15:34:08 09/08/2024 16:50:00 Oligohydramnios 06467474 O41.03X0 Z3A.34 17996476 [id number] MD Roxana Posada [address],[place] [address] 09/08/2024 15:34:18 09/09/2024 01:16:04 [id number] Dante Aponte MD [facility] [address],[place] [address] 09/15/2024 15:02:18 09/15/2024 16:45:10 Gestational diabetes mellitus 35967971 O24.410 00865022 [id number] MD Roxana Posada [address],[place] [address] 1 09/15/2024 15:02:40 09/15/2024 16:44:53 care status 634976680 Z34.83 [id number] [id number] Dante Aponte MD [facility] [address],[place] [address] 1 09/22/2024 14:30:30 09/22/2024 17:02:37 Gestational diabetes mellitus 49235963 O24.410 60308726 [id number] Dante Aponte MD [facility] [address],[place] [address] 09/22/2024 14:30:39 09/22/2024 16:26:54 care status 449241579 Z34.83 13216006 [id number] MD Roxana Posada [address],[place] [address] 1 10/05/2024 14:57:00 10/05/2024 15:51:31 -induced hypertension 43349653 O13.9 697219 This patient is a 33-year-ol d female who presents for follow up on blood pressure. She has some elevated blood pressures today. They have been reasonably good at home though labile. Patient reports not taking her nifedipine regularly. We agreed to add labetalol 200 b.i.d.. She knows preeclamps ia precaution s. She was given preeclamps ia precaution s again. She will follow up in 3 weeks. She was given precaution s and instructio ns on medication s. She understand s risks, benefits, and alternativ es of the medication . Spent over 20 minutes on her care in total. [id number] Dante Aponte MD [facility] [address],[place] [address] 02/07/2025 10:29:38 02/07/2025 21:12:47 Health Concerns Section Related Observation LastModified by Organization Detai ls LastModified Time None Recorded Concern Status LastModified by Organization Details LastModified Time None Recorded Advance Directives Directive None Recorded Payers Insurance Date Sequence Insurance Name Policy Number Policy Goddard Covered Member ID Goddard Member ID Guarantor Name 07/27/2023 PAYMENT PLAN Yasmeen Ny 02/04/2025 1 [employer] - ALLIED BENEFITS - OPEN ACCESS Yasmeen Ny [id number] Yasmeen Ny 05/13/2023 2 [facility] Yasmeen Yn [id number] Yasmeen Ny 07/13/2024 PAYMENT PLAN Yasmeen Ny 02/04/2025 2 [facility] - DOS ON OR AFTER 20 (MEDICAID REPLACEMENT - HMO) Yasmeen Ny [id number] Yasmeen Ny 08/13/2024 PAYMENT PLAN Yasmeen Ny 09/01/2022 PAYMENT PLAN Yasmeen Ny 05/23/2022 1 [employer] [id number] Yasmeen Ny [id number] Yasmeen Ny 09/26/2023 PAYMENT PLAN Yasmeen Ny 04/22/2022 1 [employer] - ALLIED BENEFITS - OPEN ACCESS Yasmeen Ny [id number] Yasmeen Ny 05/05/2024 2 [place] Yasmeen Ny [id number] Yasmeen Ny 02/24/2022 1 [facility] BEN[facility]AN (PPO) Yasmeen Ny [id number] Yasmeen Ny 01/27/2023 PAYMENT PLAN Yasmeen Ny Notes Date Note Type Note Provider Name and Address Organization Details Recorded Time 09/15/2024 text/html Generic HPI TemplateReported by Patient Dante Aponte MD [address], [place], [address], , P[facility] 09/15/2024 16:34:21 09/22/2024 text/html Generic HPI TemplateReported by Patient Dante Aponte MD [address], [place], [address], , P[facility] 09/22/2024 16:26:06 10/05/2024 text/html This patient is a 33-year-old female who presents for follow up on blood pressure. She has some elevated blood pressures today. They have been reasonably good at home though labile. Patient reports not taking her nifedipine regularly. We agreed to add labetalol 200 b.i.d.. She knows preeclampsia precautions. She was given preeclampsia precautions again. She will follow up in 3 weeks. Dante Aponte MD [address], [place], [address], , P.C[facility] 10/05/2024 15:40:34 02/07/2025 text/html Patient presents for IUD insertion. Dante Aponte MD [address], [place], [address], , P[facility] 02/07/2025 21:12:45 OBGyn Episode Ob Episode Information Episode Created Date Number of Fetuses Patient Bloodtype Patient rh Status Prepregnancy Weight lbs Domestic Partner Domestic Partner Phone Father Name Armament Repairer Status 12/09/19 20 1 A Positive 226 CLOSED Fetus Data First Name Last Name Admitted to NICU Weight (g) Sex Living Outcome Pediatric Complications Fetus ID Race Codes Race Delivery Type 3203.49 35 M true Full Term 3938 Vaginal Delivery Problems Problem Notes [facility] - 03/28 - Recommendations : 162mg ASA daily, echo, A1C q trimester, baseline 24 hr TP, 2x/wk NST and weekly BPP @ 32 wks. ECHO - Scheduled 04/19- Normal record in chart [facility] 05/16 CUSTOMS MANAGER/DE 10:30am - *WILL REQUIRE INSULIN DRIP DURING LABOR/DECREASE BY 50% IN *[facility] - next appt 05/23 CUSTOMS MANAGER/DE/US Problem Name Start Date End Date Resolution Snomed Code Not e Purpuric rash 633415014 clotim azole/betametha zone-Rxed Type 2 diabetes mellitus 11352449 Metformin xr 20 00mg qdSent to [facility] for management- 05/16-NPH 26U AM/88U PM Increase 2 units when 1 consecutive fasting >90 / Humalog 16U w/ bfast & 8Uw/ lunch & 32U w/ dinner. 6units with snack over 15g carbs. Obesity 08/19/2013 752485545 LD ASA pe r MFM Marginal insertion of umbilical cord 02/03/2020 51588952 growth u/s Dilatation of renal pelvis - bilater al - growth u/s Anxiety 11/09/2019 82727705 Zoloft Pre-existing type 2 diabetes mellitus in 04/27/2020 585927616 DELIVER BY 37- not well controlled. MFM may rec earlier. Large for gestation age fetus 424559070 potential 89% Rajeev Calculation Initial Rajeev Date [...] Weight in lbs Pre/Post Dialysis Refused Weight 230.845680425617 BP Diastolic BP Location Tested BP Systolic [...] Weight in lbs Pre/Post Dialysis Refused Weight 237.570690563106 BP Diastolic BP Location Tested BP Systolic [...] Weight in lbs Pre/Post Dialysis Refused Weight 242.990193679803 BP Diastolic BP Location Tested BP Systolic [...] Weight in lbs Pre/Post Dialysis Refused Weight 249.005775514009 BP Diastolic BP Location Tested BP Systolic [...] Weight in lbs Pre/Post Dialysis Refused Weight 249.864339950591 BP Diastolic BP Location Tested BP Systolic [...] Weight in lbs Pre/Post Dialysis Refused Weight 256.462575493333 BP Diastolic BP Location Tested BP Systolic [...] Weight in lbs Pre/Post Dialysis Refused Weight 259.631867178326 BP Diastolic BP Location Tested BP Systolic BP Type 80 125 Fetus Heart Rate Present A 145 Fetus Movement A Yes Comments 2+glucose. Ran out of HandUp PBC n for 3 days. Back on now. Sugars per MFM. On Nph and lispro 8/0/16. NSTs scheduled here. Encouraged [...] Weight in lbs Pre/Post Dialysis Refused Weight 263.869167537839 BP Diastolic BP Location Tested BP Systolic [...] Weight in lbs Pre/Post Dialysis Refused Weight 268.226778850519 BP Diastolic BP Location Tested BP Systolic [...] Weight in lbs Pre/Post Dialysis Refused Weight 266.608866159147 BP Diastolic BP Location Tested BP Systolic [...] Weight in lbs Pre/Post Dialysis Refused Weight 269.707111467948 BP Diastolic BP Location Tested BP Systolic [...] Weight in lbs Pre/Post Dialysis Refused Weight 272.232698321336 BP Diastolic BP Location Tested BP Systolic [...] I discussed her case with Dr Baez Raghavendra. SHe recommends to deliver at 37 weeks [...] Estim ated Date of Delivery false Thalassemia (Tristanian, Chinese, Mediterranean, Or Background): MCV < 80 false Neural Tube Defect (Meningomyelocele, Spina Bifi da, Or Anencephaly) false Congenital Heart Defect false Down Syndrome false Tyrell-Sachs (eg, Gnosticism, Cajun, Slovenian-[place]) f alse Kodak Disease false Sickle Cell Disease Or Trait () false Hemophilia Or Other Blood Disorders false Muscular Dystrophy false Cystic Fibrosis false Ocoee's Chorea false Intellectual Disability/Autism false If Yes, [...] Domestic Partner Domestic Partner Phone Father Name Armament Repairer Status 04/07/20 24 1 A Positive CLOSED Fetus Data First Name Last Name Admitted to NICU Weight (g) Sex Living Outcome Pediatric Complications Fetus ID Race Codes Race Delivery Type Addeli ne true 2523.10 55 F true Prematur e [id number] Vaginal Delivery Problems Problem Notes Problem Name Start Date End Date Resolution Snomed Code Not e Pre-eclampsia 09/22/2024 661482281 Type 2 diabetes mellitus 08887364 managed by [facility] ched [facility] 05/10 [facility] 06/28 US and office visitConsult 08/03/24NST & US 08/23/24 1:15PM to start 2xwkly testing at 32wks confirm if pt schedule [facility] or our office?scheduled for US/BPP/NST weekly starting 06/02/24 pt decline Thursday NST pt scheduled on NST/OB Group B Streptococcus carrier [id number] + GBS in urine Rajeev Calculation Initial [...] Weight in lbs Pre/Post Dialysis Refused Weight 209.019138943046 BP Diastolic BP Location Tested BP Systolic [...] Type Weight in lbs Pre/Post Dialysis Refused 217.272904905623 BP Diastolic BP Location Tested BP Systolic [...] Type Weight in lbs Pre/Post Dialysis Refused 222.99444507724 BP Diastolic BP Location Tested BP Systolic [...] Type Weight in lbs Pre/Post Dialysis Refused 229.397428963798 BP Diastolic BP Location Tested BP Systolic [...] Weight in lbs Pre/Post Dialysis Refused Weight 231.791844947530 BP Diastolic BP Location Tested BP Systolic BP Type 75 L arm 116 sitting Fetus Heart Rate Present A 150 Fetus Movement A Yes Comments problem visit, vaginitis. Se e note. Flowsheet Date 07/28/2024 Alonso Score Blood Edema Fundus Height Fundus Units Glucose Ketones Leukocytes Nitrite Labor Signs Protein Cervic Dilation Cervic Effacement Cervic Station Type Weight in lbs Pre/Post Dialysis Refused Weight 231.302720660738 BP Diastolic BP Location Tested BP Systolic [...] Weight in lbs Pre/Post Dialysis Refused Weight 233.305883139426 BP Diastolic BP Location Tested BP Systolic [...] Weight in lbs Pre/Post Dialysis Refused Weight 242.2775373699 BP Diastolic BP Location Tested BP Systolic [...] Weight in lbs Pre/Post Dialysis Refused Weight 242.3588567682 BP Diastolic BP Location Tested BP Systolic BP Type 63 L arm 144 sitting Fetus Heart Rate Present Fetus Movement Comments Flowsheet Date 09/01/2024 Alonso Score Blood Edema Fundus Height Fundus Units Glucose Ketones Leukocytes Nitrite Labor Signs Protein Cervic Dilation Cervic Effacement Cervic Station Type Weight in lbs Pre/Post Dialysis Refused Weight 244.080040712360 BP Diastolic BP Location Tested BP Systolic [...] Weight in lbs Pre/Post Dialysis Refused Weight 244.886393371162 BP Diastolic BP Location Tested BP Systolic BP Type 87 L arm 137 sitting Fetus Heart Rate Present Fetus Movement Comments Flowsheet Date 09/08/2024 Alonso Score Blood Edema Fundus Height Fundus Units Glucose Ketones Leukocytes Nitrite Labor Signs Protein Cervic Dilation Cervic Effacement Cervic Station Type Weight in lbs Pre/Post Dialysis Refused Weight 243.309161617150 BP Diastolic BP Location Tested BP Systolic [...] Weight in lbs Pre/Post Dialysis Refused Weight 243.908566753189 BP Diastolic BP Location Tested BP Systolic [...] Weight in lbs Pre/Post Dialysis Refused Weight 247.000778417220 BP Diastolic BP Location Tested BP Systolic BP Type 71 L arm 122 sitting Fetus Heart Rate Present Fetus Movement Comments Flowsheet Date 09/15/2024 Alonso Score Blood Edema Fundus Height Fundus Units Glucose Ketones Leukocytes Nitrite Labor Signs Protein Cervic Dilation Cervic Effacement Cervic Station Type Weight in lbs Pre/Post Dialysis Refused 247.357842665238 BP Diastolic BP Location Tested BP Systolic [...] Weight in lbs Pre/Post Dialysis Refused Weight 249.709360215907 BP Diastolic BP Location Tested BP Systolic BP Type 92 L arm 146 sitting Fetus Heart Rate Present Fetus Movement Comments Flowsheet Date 09/22/2024 Alonso Score Blood Edema Fundus Height Fundus Units Glucose Ketones Leukocytes Nitrite Labor Signs Protein Cervic Dilation Cervic Effacement Cervic Station Type Weight in lbs Pre/Post Dialysis Refused 249.319644065681 BP Diastolic BP Location Tested BP Systolic BP Type 92 L arm 146 sitting Fetus Heart Rate Present A 145 Fetus Movement A Yes Comments elevated blood pressure, lik иван preeclamptic, to deliver at 37 weeks, M managing blood sugars. To induce and 6 days, 7 cm ABHAY, reactive NST. Flowsheet Date 10/05/2024 Alonso Score Blood Edema Fundus Height Fundus Units Glucose Ketones Leukocytes Nitrite Labor Signs Protein Cervic Dilation Cervic Effacement Cervic Station Type Weight in lbs Pre/Post Dialysis Refused Weight 228.019809403148 BP Diastolic BP Location Tested BP Systolic BP Type 97 L arm 154 sitting Fetus Heart Rate Present Fetus Movement Comments Menstrual History Last Menstrual Date Menses Monthly On Bcp Conception Prior Menses Frequency Hcg Plus Date Menarche Onset Age 0901/13/2024 true Delivery Information Delivery Date Delivery Type Labor Anesthesia Weeks Gestation Incision Type Labor Labor Length Hrs Delivered By Post Complications Tubal Sterilization Discharge Date Comments 5 Induce d Regional-Ep idural 36.5 true Hypertension false Discharge Information Feeding Method Contraceptive Method Maternal HG B and HCT Levels
--- OUTSIDE RECORDS SUMMARY | 2025-02-19 16:27 | XMS_ITS | Clinical Summary ---
Author Organization [facility] Care Team Providers Care Auto Service Dispatcher Name Role Phone Unavailable Primary Care Provider Unavailabl e Social History Tobacco Use Types Packs/Day Years Used Date Smoking Tobacco: Never Assessed Comments Unknown Sex and Gender Information Value Date Recorded Sex Assigned at Not on file Legal Sex Female 12:57 PM [employer] Gender Identity Not on file Sexual Orientation Not on file Plan of Treatment Health Maintenance Due Date Last Done Comments Hepatitis C Virus (HCV) Screening 1989 Hepatitis B Immunization (1 of 3 - 19+ 3-dose series) 2008 Pap Smear 2010 Human Papillomavirus (HPV) Immunization (1 - 3-dose SCDM series) 2016 Cervical Cancer Screening (CCS) 12/26/2019 HPV/Cotest 12/26/2019 Influenza Immunization (#1) 12/19/202403/21, 02/04/2019, 01/18/2018, Additional history exists SARS-COV-2 Immunization ( season) 2024 Respiratory Syncytial Virus (RSV) Immunization (Adult) (1 [...]
--- OUTSIDE RECORDS SUMMARY | 2025-02-19 16:27 | XMS_ITS | Clinical Summary ---
Author Organization [facility] Address [address] [place] [address] Care Team Providers Care Material Lister Name Role Phone Unavailable Primary Care Provider Unavailabl e Social History Tobacco Use Types Packs/Day Years Used Date Smoking Tobacco: Never Assessed Comments Unknown Sex and Gender Information Value Date Recorded Sex Assigned at Not on file Legal Sex Female 4:27 PM CDT Gender Identity Not on file Sexual Orientation Not on file Plan of Treatment Health Maintenance Due Date Last Done Comments Cervical Cancer Screening Pa p Smear (Age 30 to 64) Every 3 Years 1989 Annual Physical 1992 Hepatitis C 12/26/2007 DTaP, Tdap and Td Vaccines ( 1 - Tdap) 2008 Hepatitis B Vaccines (1 of 3 - 19+ 3-dose series) 2008 HPV Vaccines (1 - 3-dose SCD M series) 2016 Cervical Cancer Screening Pa p with HPV Testing (Age 30 to 64) Every 5 Years 12/26/2019 Cervical Cancer Screening with HPV 12/26/2019 COVID-19 Vaccine (2024-2 6 season) 2024 Influenza Adult (#1) 2025 Hepatitis A Vaccines Aged Out No long er eligible based on patient's age to complete this topic Meningococcal B Vaccine Aged Out No l onger eligible based on patient's age to complete this topic Meningococcal Vaccine Aged Out No art arun eligible based on patient's age to complete this topic Pneumococcal Vaccine: Pediat rics (0 to 5 Years) and At-Risk Patients (6 to 49 Years) Aged Out No longer eligible b ased on patient's age to complete this topic RSV Immunizations Under 20 Months Aged Out No longer eligible based on patient's age to complete this topic
--- OUTSIDE RECORDS SUMMARY | 2025-02-19 16:27 | XMS_ITS | Clinical Summary ---
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 Testing performed by: [address] [id number] Blood 09/24/2023 8:42 AM CDT 09/24/2023 9:06 AM CDT Sajan Pollard MD LAB BLOOD ORDERABL ES Final Result Performing Organization Address City/[facility]/ZIP Co de Phone Number [place] [address] [facility] [employer] [place], [place] [phone] * (ABNORMAL) Hemoglobin A1c (09/24/2023 8:42 AM CDT) Hgb A1C 6.8(H) 4.0 - 5.6 % Comment:Testing performed by : [address] [id number] Estimated Average Glucose 148 mg/dL KELLEN Comment: The ADA recommends reporting an estimated Average Glucose (eAG) with all Hemoglobin A1c results using the equation derived from a study of 507 normal and diabetic adults. Minority populations were underrepresented and children were not included. (Diabetes Care 31:0392-0846, 2008). The eAG is not equivalent to a fasting glucose. Testing performed by: [address] [address] Blood 09/24/2023 8:42 AM CDT 09/24/2023 9:06 AM CDT Narrative KELLEN - 09/24/2023 9:40 AM CDT PRE SURGERY TESTING ONLY Sajan Pollard MD LAB BLOOD ORDERABL ES Final Result [facility] [address] [facility] [employer] [place] [address] from Last 3 Months or Most Recently Relevant to Health Maintenance Insurance [facility] CHOICE PLUS [employer]PA [employer] OPEN ACCESS IDPA [employer] OPEN ACCESS Care Teams Hydrological Technical Officer Relationship Specialty Start Date End Date Chuck Nelson NP PCP - General 01/26/19 Christopher Nelson MD [address] [place] [id number] Consulting Physician General Surgery 09/30/23
--- OUTSIDE RECORDS SUMMARY | 2025-02-19 16:27 | XMS_ITS | Encounter Summary ---
Author Organization [facility] Address [address] [place] [address] Care Team Providers Care Metal Washing Machine Operator Name Role Phone Chuck Nelson BOAT REPAIRER-CUT OUT OPERATOR Primary Care Pro vider Reason for Visit * Reason Onset Date Comments MEDICATION REFILL 03/08/2024 Encounter Details Date Type Department Care Team (Late st Contact Info) Description 03/08/2024 Refill [facility] EVALUATION [facility] [address] [facility] [place] [address] Eduar Hernandez MD [address] [facility] [address] [place] [address] MEDICATION REFILL Social History Tobacco Use Types [...] and heating? Not hard at all 02/24/2024 [facility] - Occupational Stress [...] things needed for daily living? No 02/24/2024 [place] Depression Scale Answer Date Recorded [place] Depression Scale Total 1 03/01/2024 The thought [...] any time in the past 12 m [facility], were you homeless or living in a snf (including now)? Yes 02/24/2024 Comments Yes Sex [...] (HCC) documented in this encounter Care Teams Metal Washing Machine Operator Relationship Specialty Start Date End Date Chuck Nelson APRN-EMILY [facility] [place] [id number] PCP - General Nurse Practitioner 08/25/22 documented as of this encounter
--- OUTSIDE RECORDS SUMMARY | 2025-02-19 16:28 | XMS_ITS | Data Portability ---
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 Plan of Treatment Reminders Order Date Submit Date Provider Last Modified By Organization Details Last Modified Time Details Appointments None recorde d. Lab CBC 2024 025 [employer] [facility], [facility], [address], [place], [address], 16:12:35 lipid panel, serum 2024 [employer] [facility], [address] [place] [address], [address], [place], [address], 16:12:35 TSH, ultra-s ensitiv e, serum 2024 [facility], [address] [place] [address], [address], [place], [address], 16:12:35 apolipo protein A-I + A-II + B + C panel, QN, serum or plasma 2024 025 [employer] [facility], [address] [place], [place] [address] [address], [address], [place], [address], 16:12:35 gamma-g lutamyl transfe rase (ggt), serum 2024 [facility], [address] [facility] [address], [address], [place], [address], 16:12:35 hepatic functio n panel, serum 2024 [facility], [address] [facility] [address], [address], [place], [address], 16:12:35 hepatit is panel (A+B+C) , acute, serum 2024 [facility], [address] [facility] [address], [address], [place], [address], 16:12:35 CBC 2024 [facility], [address] [facility] [address], [address], [place], [address], 10:13:10 lipid panel, serum 2024 [facility], [address] [place] [address], [address], [place], [address], 10:13:16 TSH, ultra-s ensitiv e, serum 2024 [employer] [email or web address] [facility], [address] [facility], [address], [place], [address], 10:13:49 apolipo protein A-I + A-II + B + C panel, QN, serum or plasma 2024 [facility], [address], [address], [place], [address], 10:13:55 gamma-g lutamyl transfe rase (ggt), serum 2024 [facility], [address] [facility] [address], [address], [place], [address], 10:13:23 hepatic functio n panel, serum 2024 [facility], [address] [facility] [address], [address], [place], [address], 10:13:29 hepatit is panel (A+B+C) , acute, serum 2024 [facility], [address] [facility], [address], [place], [address], 10:13:40 HbA1c (hemogl obin A1c), blood 2024 singh In-Office Order, Internal Use Only DO Not Attach Compendium DO Not Attach Compendium, Do Not Delete/merge, [id number] 13:30:27 glucose , fingers tick, blood 2024 singh In-Office Order, Internal Use Only DO Not Attach Compendium DO Not Attach Compendium, Do Not Delete/merge, [id number] 13:30:28 Referral None recorde d. Procedures None recorde d. Surgeries None recorde d. Imaging US, elastog donavan [address], [address], 00:23:34 US, liver [address] [place], [address], 00:22:35 Medication Orders spirono lactone 100 mg tablet 2024 [facility], [address] [place] [address], [address], 13:30:27 nystati n 100,000 unit/gr am topical powder 2024 [facility], [address] [place] [address], [address], 13:30:36 Mounjar o 2.5 mg/0.5 mL subcuta neous pen injecto r 2024 [facility], [address] [place] [address], [place], [address], 13:30:35 phenter mine 37.5 mg tablet 2024 [facility], [address] [place] [address], [place], [address], 14:14:43 aspirin 81 mg tablet, delayed release 2023 [facility], [address] [place] [address], [place], [address], 14:55:25 atorvas tatin 20 mg tablet 2023 [facility], [address] [place] [address], [address], 14:55:28 spirono lactone 100 mg tablet 2023 [facility], [address] [place] [address], [address], 5 16:34:14 nystati n 100,000 unit/gr am topical powder 2023 025 [facility], [address] [place], [address], 5 14:56:09 phenter mine 37.5 mg tablet 2023 [facility], [address] [place], [address], 14:13:04 escital opram 20 mg tablet 2023 025 [facility], [address] [place], [address], 5 14:55:36 metform in 1,000 mg tablet 2023 [facility], [address] [place] [address], [address], 5 14:56:05 Mounjar o 10 mg/0.5 mL subcuta neous pen injecto r 2023 [facility] [address], [address] [place] [address], [address], 5 16:33:46 flutica sone propion ate 50 mcg/act uation nasal spray,s uspensi on 2023 [facility], [address] [place], [address], 5 14:55:46 montelu kast 10 mg tablet 2023 025 [facility], [address] [place], [address], 5 14:56:07 phenter mine 37.5 mg tablet 2023 024 [facility] [place], [place], [id number], 14:13:04 Patient TargetsNo targets recorded. Patient Instructions Encounter Date Encounter Id Patient Instructions Last Modified By Organization Details Last Modified Time 12/14/2023 [id number] When You Want to Lose Weight: Care [...] Rx yarauz Not available 12/14/2023 12:51:59 02/05/2024 [id number] learning about endovenous ablation for varicose veins yarauz Not available 02/05/2024 13:20:35 When You Want to Lose Weight: Care Instructions yarauz Not available 02/05/2024 13:20:34 A healthy lifestyle: care instructions yarauz Not available 02/05/2024 13:20:34 anxiety disorder : care instructions yarauz Not available 02/05/2024 13:20:34 body mass index: care instructions yarauz Not available 02/05/2024 13:20:34 learning about healthy weight yarauz Not available 02/05/2024 13:20:35 Uncontrolled Diabetes Mellitus [...] of symptoms or problems with the medication singh Not available 02/05/2024 13:05:43 01/13/2025 [id number] body mass index: care instructions candida Not available 01/13/2025 16:48:30 learning about healthy weight yauz Not available 01/13/2025 16:48:30 abnormal lipids: In order to manage needs to make LSM. 1. Reduced saturated and trans fats found in red meat, butter, full dairy products and processed foods. 2. Increase intake of healthy fats, such as monounsaturated fats (Avocadoes, olive oil, nuts) and polyunsaturated fats like fatty fish such as salmon, flaxseeds, mackerel-omega 3 fatty acids. 3. Boost fiber consumption-soluble fiber found in lentils, beans, fruits which help lower LDL and ApoB levels. 4. Limit refined carbs and added sugar 5. consider plant based diet and /or mediterranean diet 6. increase physical activity at least 150 minutes of moderate intensity aerobics ie walking, cycling, swimming, elliptical 7. incorporate strength training exercises to build lean muscle 8. Stay active, avoid prolonged sitting periods 9. achieve and maintain a healthy weight 10. Manage stress 11. Quit smoking and limit alcohol intake yauz Not available 01/13/2025 16:46:07 Increase daily exercise to 60 minutes per session increase walking distance by 1mile every week keep caloric intake from 1200 to 1500 calories per day stop concentrated sugars drink more water 6-8 glasses per day keep a food journal keep an exercise journal portion control choose low fat low sugar foods stop fried food intake eliminate high caloric beverages incorporate multiple fruits/vegetables eat 3 meals daily with 1-2 healthy snacks eat out less (avoid appetizers, breads, pasta while out) yacandida Not available 01/13/2025 16:45:57 02/03/2025 [id number] learning about endovenous ablation for varicose veins singh Not available 02/03/2025 13:30:28 type 2 diabetes: care instructions yanarauz Not available 02/03/2025 13:30:28 body mass index: care instructions yanarauz Not available 02/03/2025 13:30:27 learning about healthy weight yauz Not available 02/03/2025 13:30:28 Uncontrolled Diabetes Mellitus complications , blindness, kidney failure, amputations etc. Take your diabetes medication daily check blood sugars fasting and post prandial --keep a log--bring to next appointment stop concentrated sugars--follow 1500 meal plan exercise 50-60 minutes daily on most days check your feet for sores, cuts, etc., see eye doctor once a year see dentist every 6 months yanabobby Not available 02/03/2025 13:33:30 Reason for Referral None Reported. Results Created Date Observation Date Name Description Value Unit Range Abnormal Flag Note LastModifiedBy Organization Detail LastModifiedTime 02/24/20 24 02/24/2024 beta- HCG, quant itati ve, serum or plasm a beta-HCG, quantitative , serum or plasma 5509.5 9 text: mIU/mL Not Available Not Available 01/13/2025 15:14:48 02/24/20 24 02/24/2024 beta- HCG, quant itati ve, serum or plasm a HCG reference range, mIU/mL: non females 0-6.0 perimenopaus al females ages 41-55* 0-7.7 postmenopaus al females age >55* 0-14 females, weeks after last menstrual period 0.2-1 week 5-50 1 - 2 weeks 50-500 2 - 3 weeks 100-5000 3 - 4 weeks 500-10,000 4 - 5 weeks 1000-50,000 5 - 6 weeks 10,000-100,0 00 6 - 8 weeks 15,000-200,0 00 2 - 3 months 10,000-100,0 00 trophoblasti c disease >100,000 *in higher than expected HCG in females > age 40, A serum FSH >20 IU/L makes unlikely. HCG REFERE NCE RANGE, MIU/ML : NONPRE GNANT FEMALE S 0-6.0 PERIME NOPAUS AL FEMALE S AGES 41-55* 0-7.7 POSTME NOPAUS AL FEMALE S AGE >55* 0-14 PREGNA NT FEMALE S, WEEKS AFTER LAST MENSTR UAL PERIOD 0.2-1 WEEK 5-50 1 - 2 WEEKS 50-500 2 - 3 WEEKS 100-50 00 3 - 4 WEEKS 500-10 ,000 4 - 5 WEEKS 1000-5 0,000 5 - 6 WEEKS 10,000 -100,0 00 6 - 8 WEEKS 15,000 -200,0 00 2 - 3 MONTHS 10,000 -100,0 00 TROPHO BLASTI C DISEAS E >100,0 00 *IN HIGHER THAN EXPECT ED HCG IN FEMALE S > AGE 40, A SERUM FSH >20 IU/L MAKES PREGNA NCY UNLIKE LY. Not Available Not Available 15:14:48 02/26/20 24 02/26/2024 beta- HCG, quant itati ve, serum or plasm a beta-HCG, quantitative , serum or plasma 9686.8 2 text: mIU/mL Not Available Not Available 01/13/2025 14:54:48 02/26/20 24 02/26/2024 beta- HCG, quant itati ve, serum or plasm a HCG reference range, mIU/mL: non females 0-6.0 perimenopaus al females ages 41-55* 0-7.7 postmenopaus al females age >55* 0-14 females, weeks after last menstrual period 0.2-1 week 5-50 1 - 2 weeks 50-500 2 - 3 weeks 100-5000 3 - 4 weeks 500-10,000 4 - 5 weeks 1000-50,000 5 - 6 weeks 10,000-100,0 00 6 - 8 weeks 15,000-200,0 00 2 - 3 months 10,000-100,0 00 trophoblasti c disease >100,000 *in higher than expected HCG in females > age 40, A serum FSH >20 IU/L makes unlikely. HCG REFERE NCE RANGE, MIU/ML : NONPRE GNANT FEMALE S 0-6.0 PERIME NOPAUS AL FEMALE S AGES 41-55* 0-7.7 POSTME NOPAUS AL FEMALE S AGE >55* 0-14 PREGNA NT FEMALE S, WEEKS AFTER LAST MENSTR UAL PERIOD 0.2-1 WEEK 5-50 1 - 2 WEEKS 50-500 2 - 3 WEEKS 100-50 00 3 - 4 WEEKS 500-10 ,000 4 - 5 WEEKS 1000-5 0,000 5 - 6 WEEKS 10,000 -100,0 00 6 - 8 WEEKS 15,000 -200,0 00 2 - 3 MONTHS 10,000 -100,0 00 TROPHO BLASTI C DISEAS E >100,0 00 *IN HIGHER THAN EXPECT ED HCG IN FEMALE S > AGE 40, A SERUM FSH >20 IU/L MAKES PREGNA NCY UNLIKE LY. Not Available Not Available 14:54:48 03/01/2003/02/2024 chlam ydia + gonor valerie RNA, QL, unspe cifie d speci men CT RNA, qual, PCR, unspecified specimen NEGATI VE text: negati ve Not Available Not Available 01/13/2025 15:24:54 03/01/2003/02/2024 chlam ydia + gonor valerie RNA, QL, unspe cifie d speci men NG RNA, qual, PCR, unspecified specimen NEGATI VE text: negati ve Not Available Not Available 01/13/2025 15:24:54 03/01/2003/02/2024 chlam ydia + gonor valerie RNA, QL, unspe cifie d speci men results based on detection/no detection of ribosomal RNA by amplified method. RESULT S BASED ON DETECT ION/NO DETECT ION OF RIBOSO MAL RNA BY AMPLIF IED METHOD . Not Available Not Available 15:24:54 03/01/2003/02/2024 chlam ydia + gonor valerie RNA, QL, unspe cifie d speci men lab interpretati on NORMAL Not Available Not Available 12/20 15:24:54 03/01/2003/03/2024 rubel la igg Ab scree n, serum rubella antibody <0.90 text: immune >0.99 index low Non-i mmune <0.90 Equiv ocal 0.90 - 0.99 Immun e >0.99 Not Available Not Available 01/13/2025 15:24:54 03/01/20 24 03/03/2024 rubel la igg Ab scree n, serum performed at: - [facility] [address] [id number] clinical laboratory technologist: caridad liu phd, phone: [phone] [facility] AT: - [facility] [id number] [place], [place] [address] 537 LAB DIRECT OR: EWA GRACE PHD, PHONE: [phone] Not Available Not Available 15:24:54 03/01/20 24 03/03/2024 rubel la igg Ab scree n, serum lab interpretati on ABNORM AL Not Available Not Available 15:24:54 03/01/20 24 03/01/2024 trepo nema palli dum IgG + IgM Ab, QL, IA, serum treponema pallidum IgG + IgM Ab, ql, ia, serum NON REACTI VE text: non reacti ve No Labor atory evide nce of syphi lis infec tion. Note: Circu latin g antib odies may be low or undet ectab le in early infec tion. If recen t expos ure is suspe cted, re-dr beto sandoval in 2-4 weeks and repea t testi ng. Not Available Not Available 01/13/2025 15:24:54 03/01/20 24 03/01/2024 trepo nema palli dum IgG + IgM Ab, QL, IA, serum lab interpretati on NORMAL Not Available Not Available 12/20 15:24:54 03/01/20 24 03/01/2024 CBC w/ auto diff WBC, auto, blood 10.2 text: 4.0 - 10.7 x10e9/ L Not Available Not Available 01/13/2025 15:24:54 03/01/20 24 03/01/2024 CBC w/ auto diff RBC count, blood 4.4 text: 3.90 - 5.20 x10e12 /L Not Available Not Available 01/13/2025 15:24:54 03/01/20 24 03/01/2024 CBC w/ auto diff hemoglobin (Hb), blood 12.9 g/dL low: 11.9g/ dLhigh : 15.8g/ dL Not Available Not Available 01/13/2025 15:24:54 03/01/20 24 03/01/2024 CBC w/ auto diff hematocrit, automated count, blood 38 % low: 34.8%h igh: 46.1% Not Available Not Available 01/13/2025 15:24:54 03/01/20 24 03/01/2024 CBC w/ auto diff MCV, blood 86.4 fL low: 80fLhi gh: 98fL Not Available Not Available 01/13/2025 15:24:54 03/01/20 24 03/01/2024 CBC w/ auto diff MCH, qn, automated (obs) 29.3 pg low: 26.7pg high: 33.6pg Not Available Not Available 01/13/2025 15:24:54 03/01/20 24 03/01/2024 CBC w/ auto diff MCHC, qn, automated (obs) 33.9 g/dL low: 31.7g/ dLhigh : 36.3g/ dL Not Available Not Available 01/13/2025 15:24:54 03/01/20 24 03/01/2024 CBC w/ auto diff erythrocyte distribution width, ratio, automated (obs) 12.8 % low: 11.3%h igh: 14.8% Not Available Not Available 01/13/2025 15:24:54 03/01/20 24 03/01/2024 CBC w/ auto diff platelets, auto, blood 329 text: 150 - 420 x10e9/ L Not Available Not Available 01/13/2025 15:24:54 03/01/20 24 03/01/2024 CBC w/ auto diff platelet mean volume, qn, automated, blood (obs) 10.1 fL low: 7.8fLh igh: 11.4fL Not Available Not Available 01/13/2025 15:24:54 03/01/20 24 03/01/2024 CBC w/ auto diff neutrophils/ 100 leukocytes, automated, blood (obs) 56.3 % low: 41%hig h: 74% Not Available Not Available 01/13/2025 15:24:54 03/01/20 24 03/01/2024 CBC w/ auto diff lymphocytes/ 100 leukocytes, automated, blood (obs) 36.7 % low: 17%hig h: 47% Not Available Not Available 01/13/2025 15:24:54 03/01/20 24 03/01/2024 CBC w/ auto diff monocytes/10 0 leukocytes, automated, blood (obs) 5.7 % low: 3%high : 11% Not Available Not Available 01/13/2025 15:24:54 03/01/20 24 03/01/2024 CBC w/ auto diff eosinophils/ 100 leukocytes, automated, blood (obs) 0.9 % low: 0%high : 7% Not Available Not Available 01/13/2025 15:24:54 03/01/20 24 03/01/2024 CBC w/ auto diff basophils/10 0 leukocytes, automated, blood (obs) 0.1 % low: 0%high : 1.6% Not Available Not Available 01/13/2025 15:24:54 03/01/20 24 03/01/2024 CBC w/ auto diff immature granulocytes /100 leukocytes, automated, blood (obs) 0.3 % low: 0%high : 1% Not Available Not Available 01/13/2025 15:24:54 03/01/20 24 03/01/2024 CBC w/ auto diff neutrophil count, absolute (anc), blood (obs) 5.71 text: 1.60 - 7.50 x10e9/ L Not Available Not Available 01/13/2025 15:24:54 03/01/20 24 03/01/2024 CBC w/ auto diff lymphocytes, quantitative , blood, automated count (obs) 3.73 text: 1.00 - 4.40 x10e9/ L Not Available Not Available 01/13/2025 15:24:54 03/01/20 24 03/01/2024 CBC w/ auto diff monocytes, count, automated, blood (obs) 0.58 text: 0.15 - 1.00 x10e9/ L Not Available Not Available 01/13/2025 15:24:54 03/01/20 24 03/01/2024 CBC w/ auto diff eosinophils, quant, blood 0.09 text: 0.00 - 0.60 x10e9/ L Not Available Not Available 01/13/2025 15:24:54 03/01/20 24 03/01/2024 CBC w/ auto diff basophils, quant, auto, blood (obs) 0.01 text: 0.00 - 0.13 x10e9/ L Not Available Not Available 01/13/2025 15:24:54 03/01/20 24 03/01/2024 CBC w/ auto diff lab interpretati on NORMAL Not Available Not Available 12/20 15:24:54 03/01/20 24 03/01/2024 type + scree n, blood ABO group + Rh type, blood A POS Histo ry check ed. Not Available Not Available 01/13/2025 15:24:54 03/01/20 24 03/01/2024 type + scree n, blood antibody screen, serum or plasma NEG Not Available Not Available 12/20 15:24:54 03/01/20 24 03/01/2024 HBsAg (hepa titis B surfa ce Ag), serum HBsAg (hepatitis B surface Ag), serum NON REACTI VE text: non reacti ve Not Available Not Available 01/13/2025 15:24:53 03/01/20 24 03/01/2024 HBsAg (hepa titis B surfa ce Ag), serum lab interpretati on NORMAL Not Available Not Available 12/20 15:24:53 03/01/20 24 03/03/2024 varic phu- zoste r igg Ab scree n, serum varicella zoster virus IgG Ab, qualitative, serum REACTI VE text: non reacti ve Ple ase note refer ence inter chela whiteside e A React wili resul t is consi dered evide nce of immun ity to VZV. React wili indic ates that VZV IgG was detec bisi consi stent with previ ous infec tion and/o r vacci natio n. A Non React wili resul t indic ates that VZV IgG was not detec bisi sugge sting that immun ity has not been acqui red. Not Available Not Available 01/13/2025 15:24:53 03/01/20 24 03/03/2024 varic phu- zoste r igg Ab scree n, serum performed at: [address] [place] [id number] clinical laboratory technologist: caridad liu phd, phone: [phone] [facility] AT: [address] [id number] 269 LAB DIRECT OR: EWA GRACE PHD, PHONE: [phone] Not Available Not Available 15:24:53 03/01/20 24 03/01/2024 HbA1c (hemo globi n A1c), blood HbA1C (hemoglobin A1C), blood 5.4 % high: 5.7% Not Available Not Available 01/13/2025 15:24:53 03/01/20 24 03/01/2024 HbA1c (hemo globi n A1c), blood estimated average glucose 108 mg/dL Not Available Not Available 12/20 15:24:53 03/01/20 24 03/01/2024 HbA1c (hemo globi n A1c), blood HbA1C interpretati on: normal: < 5.7% pre-diabetes : 5.7-6.4% diabetes: equal to or greater than 6.5% test results diagnostic of diabetes should BE repeated for confirmation . treatment target values recommended by ada and other clinical organization s should BE used to evaluate metabolic control in patients. this test should not replace glucose testing for patients with type 1 diabetes, pediatric patients, or women. falsely low HbA1C results may BE observed in patients with clinical conditions that shorten erythrocyte life span or decrease mean erythrocyte age such the presence of unstable hemoglobin variants, elevated hemoglobin F level or other causes of hemolytic anemia. HbA1C may not accurately reflect glycemic control when clinical conditions that affect erythrocyte survival are present. severe iron deficiency anemia may yield falsely high results. hemoglobin A1C assay should not BE used to diagnose or monitor diabetes in patients with malignancy, recent blood transfusion, chronic kidney or liver disease. this method may yield falsely low results when hemoglobin (hbf) exceeds 5% in the specimen. the seth OY LX Therapiesnity assay for the measurement of HbA1C IS A national glycohemoglo bin standardizat ion program (ngsp) certified method. HBA1C INTERP RETATI ON: NORMAL : < 5.7% PRE-DI ABETES : 5.7-6. 4% DIABET ES: EQUAL TO OR GREATE R THAN 6.5% TEST RESULT S DIAGNO STIC OF DIABET ES SHOULD BE REPEAT ED FOR CONFIR MATION . TREATM ENT TARGET VALUES RECOMM ENDED BY ADA AND OTHER CLINIC AL ORGANI ZATION S SHOULD BE USED TO EVALUA TE METABO LIC CONTRO L IN PATIEN TS. THIS TEST SHOULD NOT REPLAC E GLUCOS E TESTIN G FOR PATIEN TS WITH TYPE 1 DIABET ES, PEDIAT ISABEL PATIEN TS, OR PREGNA NT WOMEN. FALSEL Y LOW HBA1C RESULT S MAY BE OBSERV ED IN PATIEN TS WITH CLINIC AL CONDIT IONS THAT SHORTE N ERYTHR OCYTE LIFE SPAN OR DECREA SE MEAN ERYTHR OCYTE AGE SUCH THE PRESEN CE OF UNSTAB LE HEMOGL OBIN VARIAN TS, ELEVAT ED HEMOGL OBIN F LEVEL OR OTHER CAUSES OF HEMOLY TIC ANEMIA . HBA1C MAY NOT ACCURA TELY REFLEC T GLYCEM IC CONTRO L WHEN CLINIC AL CONDIT IONS THAT AFFECT ERYTHR OCYTE SURVIV AL ARE PRESEN T. SEVERE IRON DEFICI ENCY ANEMIA MAY YIELD FALSEL Y HIGH RESULT S. HEMOGL OBIN A1C ASSAY SHOULD NOT BE USED TO DIAGNO SE OR MONITO R DIABET ES IN PATIEN TS WITH MALIGN JANE, RECENT BLOOD TRANSF USION, CHRONI C KIDNEY OR LIVER DISEAS E. THIS METHOD MAY YIELD FALSEL Y LOW RESULT S WHEN HEMOGL OBIN (HBF) EXCEED S 5% IN THE SPECIM EN. THE [employer] ALINIT Y ASSAY FOR THE MEASUR EMENT OF HBA1C IS A NATION AL GLYCOH EMOGLO BIN STANDA RDIZAT ION PROGRA M (NGSP) CERTIF IED METHOD . Not Available Not Available 15:24:53 03/01/20 24 03/01/2024 prote in:cr eatin ine ratio , urine protein, quant, 24H urine 13.7 mg/dL high: 11.9mg /dL high Not Available Not Available 01/13/2025 15:24:53 03/01/20 24 03/01/2024 prote in:cr eatin ine ratio , urine creatinine, urine 192.1 mg/dL Not Available Not Available 12/20 15:24:53 03/01/20 24 03/01/2024 prote in:cr eatin ine ratio , urine protein:crea tinine ratio, urine 0.07 Not Available Not Available 01/13/2025 15:24:53 03/01/20 24 03/01/2024 prote in:cr eatin ine ratio , urine lab interpretati on ABNORM AL Not Available Not Available 15:24:53 03/01/20 24 03/01/2024 ellis tin, serum or plasm a ferritin, serum or plasma 42 NG/mL low: 5NG/mL high: 204NG/ mL Not Available Not Available 01/13/2025 15:24:53 03/01/20 24 03/01/2024 ellis tin, serum or plasm a lab interpretati on NORMAL Not Available Not Available 12/20 15:24:53 03/01/20 24 03/09/2024 HPV 16+18 +31+3 3+35+ 39+45 +51+5 2+56+ 58+59 +66+6 8 DNA, QL, probe +sig amp, cervi x diagnosis COMMEN T TIANA [facility]ATES FOR INTRA EPITH ELIAL ALMA Allred OR KELLEY OLIVEROS . Not Available Not Available 01/09/2025 11:20:39 03/01/2003/09/2024 HPV 16+18 +31+3 3+35+ 39+45 +51+5 2+56+ 58+59 +66+6 8 DNA, QL, probe +sig amp, cervi x cytology, interpretati on, smear or scraping, cervical or vaginal, statement of adequacy COMMEN T Satis facto ry for evalu ation . No endoc ervic al compo nent is ident ified . Not Available Not Available 01/09/2025 11:20:39 03/01/2003/09/2024 HPV 16+18 +31+3 3+35+ 39+45 +51+5 2+56+ 58+59 +66+6 8 DNA, QL, probe +sig amp, cervi x performed by PROSPER T Alina Ocampo , Cytot echloli vyas t (ASCP ) Not Available Not Available 01/09/2025 11:20:39 03/01/2003/09/2024 HPV 16+18 +31+3 3+35+ 39+45 +51+5 2+56+ 58+59 +66+6 8 DNA, QL, probe +sig amp, cervi x microscopic observation, stain, unspecified specimen . Not Available Not Available 11:20:39 03/01/20 24 03/09/2024 HPV 16+18 +31+3 3+35+ 39+45 +51+5 2+56+ 58+59 +66+6 8 DNA, QL, probe +sig amp, cervi x note COMMEN T The Pap smear is a scree calderon test desig meño to aid in the detec tion of jaylan ligna nt and malig nant condi tions of the uteri ne cervi x. It is not a diagn ostic proce dure and shoul d not be used as the sole means of detec ting cervi amy cance r. Both false -posi tive and false -nega tive repor ts do occur . Not Available Not Available 01/09/2025 11:20:39 03/01/2003/09/2024 HPV 16+18 +31+3 3+35+ 39+45 +51+5 2+56+ 58+59 +66+6 8 DNA, QL, probe +sig amp, cervi x iglbp CPT code automation COMMEN T This liqui d based ThinP rep(R ) pap test was scree meño with the use of an image guide d systlori m. Not Available Not Available 01/09/2025 11:20:39 03/01/2003/09/2024 HPV 16+18 +31+3 3+35+ 39+45 +51+5 2+56+ 58+59 +66+6 8 DNA, QL, probe +sig amp, cervi x human papillomavir us aptima NEGATI VE text: negati ve This nucle ic acid ampli ficat ion test detec ts fourt een high- risk HPV types (16,1 8,31, 33,35 ,39,4 5,51, 52,56 ,58,5 9,66, 68) witho ut diffe renti ation . Not Available Not Available 01/09/2025 11:20:39 03/01/20 24 03/09/2024 HPV 16+18 +31+3 3+35+ 39+45 +51+5 2+56+ 58+59 +66+6 8 DNA, QL, probe +sig amp, cervi x performed at: - [address], [place] [id number] clinical laboratory technologist: roopa jaquez md, phone: [phone] performed at: 02 - [facility] [place] [id number] clinical laboratory technologist: roopa jaquez md, phone: [phone] specimen comment: source...... .......cervi x specimen comment: LMP / prev treat...colp / BX specimen comment: no. of containers.. 01 thinprep vial [facility]: [facility] - [facility] [address] [place], [place] [address] LAB DIRECT OR: ROOPA JAQUEZ MD, PHONE: [phone] PERFOR MED AT: 02 - [facility] [address] [place], [place] [address] 339 LAB DIRECT OR: ROOPA JAQUEZ MD, PHONE: [phone] SPECIM EN COMMEN T: SOURCE ...... ...... .CERVI X SPECIM EN COMMEN T: LMP / PREV TREAT. ..COLP / BX SPECIM EN COMMEN T: NO. OF CONTAI NERS.. 01 THINPR EP VIAL Not Available Not Available 11:20:39 03/01/20 24 03/01/2024 HIV 1+2 AB + HIV 1 p24 Ag, quali tativ e immun oassa y, serum HIV 1+2 Ab + HIV 1 P24 Ag, qualitative immunoassay, serum NON REACTI VE text: non reacti ve Not Available Not Available 01/09/2025 11:20:39 03/01/20 24 03/01/2024 HIV 1+2 AB + HIV 1 p24 Ag, quali tativ e immun oassa y, serum no laboratory evidence of HIV infection. NO LABORA TORY EVIDEN [facility] OF HIV INFECT ION. Not Available Not Available 11:20:39 03/01/20 24 03/01/2024 HIV 1+2 AB + HIV 1 p24 Ag, quali tativ e immun oassa y, serum lab interpretati on NORMAL Not Available Not Available 12/20 11:20:39 03/01/20 24 03/01/2024 hepat itis C Ab, serum hepatitis C Ab, serum NON REACTI VE text: non reacti ve Not Available Not Available 01/09/2025 11:20:39 03/01/2003/01/2024 hepat itis C Ab, serum non reactive - antibodies to hepatitis C virus (HCV) were not detected, result does not exclude early acute HCV infection. NON REACTI VE - ANTIBO DIES TO HEPATI TIS C VIRUS (HCV) WERE NOT DETECT ED, RESULT DOES NOT EXCLUD E EARLY ACUTE HCV INFECT ION. Not Available Not Available 11:20:39 03/01/2003/01/2024 hepat itis C Ab, serum lab interpretati on NORMAL Not Available Not Available 12/20 11:20:39 03/09/2003/09/2024 gluco se, QN [mass /volu me], arter ial blood glucose, qn, fingerstick, blood (glucometer) 110 mg/dL low: 70mg/d Lhigh: 99mg/d L high Not Available Not Available 01/13/2025 15:14:58 03/09/20 24 03/09/2024 gluco se, QN [mass /volu me], arter ial blood specimen source identified (obs) CAP FINGER STICK Not Available Not Available 15:14:58 03/09/20 24 03/09/2024 gluco se, QN [mass /volu me], arter ial blood lab interpretati on ABNORM AL Not Available Not Available 15:14:58 03/09/20 24 03/09/2024 urina lysis , dipst ick, auto color, urine (obs) YELLOW text: straw, yellow , dark yellow , light yellow Not Available Not Available 01/13/2025 15:14:58 03/09/20 24 03/09/2024 urina lysis , dipst ick, auto clarity of urine (obs) CLEAR text: clear Not Available Not Available 01/13/2025 15:14:58 03/09/20 24 03/09/2024 urina lysis , dipst ick, auto urinalysis, dipstick, auto 1.02 low: 1.005h igh: 1.03 Not Available Not Available 01/13/2025 15:14:58 03/09/2003/09/2024 urina lysis , dipst ick, auto pH, test strip, urine 6 pH low: 5pHhig h: 8pH Not Available Not Available 01/13/2025 15:14:58 03/09/2003/09/2024 urina lysis , dipst ick, auto protein, dipstick, urine NEGATI VE text: negati ve Not Available Not Available 01/13/2025 15:14:58 03/09/2003/09/2024 urina lysis , dipst ick, auto hemoglobin, qual, urine NEGATI VE text: negati ve Not Available Not Available 01/13/2025 15:14:58 03/09/2003/09/2024 urina lysis , dipst ick, auto leukocyte esterase, ql, test strip, urine (obs) NEGATI VE text: negati ve Not Available Not Available 01/13/2025 15:14:58 03/09/2003/09/2024 urina lysis , dipst ick, auto nitrite, ql, test strip, urine (obs) NEGATI VE text: negati ve Not Available Not Available 01/13/2025 15:14:58 03/09/2003/09/2024 urina lysis , dipst ick, auto glucose, ql, test strip, urine NEGATI VE text: negati ve Not Available Not Available 01/13/2025 15:14:58 03/09/2003/09/2024 urina lysis , dipst ick, auto ketones, urine dipstick NEGATI VE text: negati ve Not Available Not Available 01/13/2025 15:14:58 03/09/2003/09/2024 urina lysis , dipst ick, auto bilirubin, qualitative, urine (obs) NEGATI VE text: negati ve Not Available Not Available 01/13/2025 15:14:58 03/09/2003/09/2024 urina lysis , dipst ick, auto urobilinogen , qn, test strip, urine 0.2 eu/dL low: 0.1eu/ dLhigh : 1eu/dL Not Available Not Available 01/13/2025 15:14:58 03/09/20 24 03/09/2024 urina lysis , dipst ick, auto lab interpretati on NORMAL Not Available Not Available 12/20 15:14:58 04/05/20 24 04/11/2024 patho logy study trisomy 21 LOW RISK Not Available Not Available 11:10:36 04/05/20 24 04/11/2024 patho logy study trisomy 18 LOW RISK Not Available Not Available 11:10:36 04/05/20 24 04/11/2024 patho logy study trisomy 13 LOW RISK Not Available Not Available 11:10:36 04/05/20 24 04/11/2024 patho logy study monosomy X LOW RISK Not Available Not Available 11:10:36 04/05/20 24 04/11/2024 patho logy study triploidy/va nishing twin nipt LOW RISK Not Available Not Available 11:10:36 04/05/20 24 04/11/2024 patho logy study deletion 22Q11 (digeorge) LOW RISK Not Available Not Available 11:10:36 04/05/20 24 04/11/2024 patho logy study no coding or coding display name was found LOW RISK PREDIC BISI SEX: FEMALE FRACTI ON: 7.9% CHLOE VILLANUEVA AL SCREEN HARD COPY RESULT S AVAILA BLE IN MEDIA. Not Available Not Available 11:10:36 04/05/20 24 04/11/2024 patho logy study lab interpretati on NORMAL Not Available Not Available 12/20 11:10:36 04/26/19 25 04/26/2024 urina lysis , dipst ick, auto color, urine (obs) YELLOW text: straw, yellow , dark yellow , light yellow Not Available Not Available 01/09/2025 11:30:39 04/26/19 25 04/26/2024 urina lysis , dipst ick, auto clarity of urine (obs) CLEAR text: clear Not Available Not Available 01/09/2025 11:30:39 04/26/19 25 04/26/2024 urina lysis , dipst ick, auto urinalysis, dipstick, auto 1.02 low: 1.005h igh: 1.03 Not Available Not Available 01/09/2025 11:30:39 04/26/19 25 04/26/2024 urina lysis , dipst ick, auto pH, test strip, urine 6 pH low: 5pHhig h: 8pH Not Available Not Available 01/09/2025 11:30:39 04/26/19 25 04/26/2024 urina lysis , dipst ick, auto protein, dipstick, urine NEGATI VE text: negati ve Not Available Not Available 01/09/2025 11:30:39 04/26/1904/26/2024 urina lysis , dipst ick, auto hemoglobin, qual, urine NEGATI VE text: negati ve Not Available Not Available 01/09/2025 11:30:39 04/26/19 25 04/26/2024 urina lysis , dipst ick, auto leukocyte esterase, ql, test strip, urine (obs) NEGATI VE text: negati ve Not Available Not Available 01/09/2025 11:30:39 04/26/19 25 04/26/2024 urina lysis , dipst ick, auto nitrite, ql, test strip, urine (obs) NEGATI VE text: negati ve Not Available Not Available 01/09/2025 11:30:39 04/26/19 25 04/26/2024 urina lysis , dipst ick, auto glucose, ql, test strip, urine NEGATI VE text: negati ve Not Available Not Available 01/09/2025 11:30:39 04/26/19 25 04/26/2024 urina lysis , dipst ick, auto ketones, urine dipstick NEGATI VE text: negati ve Not Available Not Available 01/09/2025 11:30:39 04/26/19 25 04/26/2024 urina lysis , dipst ick, auto bilirubin, qualitative, urine (obs) NEGATI VE text: negati ve Not Available Not Available 01/09/2025 11:30:39 04/26/19 25 04/26/2024 urina lysis , dipst ick, auto urobilinogen , qn, test strip, urine 0.2 eu/dL low: 0.1eu/ dLhigh : 1eu/dL Not Available Not Available 01/09/2025 11:30:39 04/26/19 25 04/26/2024 urina lysis , dipst ick, auto lab interpretati on NORMAL Not Available Not Available 12/20 11:30:39 05/10/19 25 05/10/2024 urina lysis , dipst ick, auto color, urine (obs) YELLOW text: straw, yellow , dark yellow , light yellow Not Available Not Available 01/09/2025 11:20:32 05/10/19 25 05/10/2024 urina lysis , dipst ick, auto clarity of urine (obs) CLEAR text: clear Not Available Not Available 01/09/2025 11:20:32 05/10/19 25 05/10/2024 urina lysis , dipst ick, auto urinalysis, dipstick, auto 1.01 low: 1.005h igh: 1.03 Not Available Not Available 01/09/2025 11:20:32 05/10/19 25 05/10/2024 urina lysis , dipst ick, auto pH, test strip, urine 6.5 pH low: 5pHhig h: 8pH Not Available Not Available 01/09/2025 11:20:32 05/10/19 25 05/10/2024 urina lysis , dipst ick, auto protein, dipstick, urine NEGATI VE text: negati ve Not Available Not Available 01/09/2025 11:20:32 05/10/19 25 05/10/2024 urina lysis , dipst ick, auto hemoglobin, qual, urine NEGATI VE text: negati ve Not Available Not Available 01/09/2025 11:20:32 05/10/19 25 05/10/2024 urina lysis , dipst ick, auto leukocyte esterase, ql, test strip, urine (obs) NEGATI VE text: negati ve Not Available Not Available 01/09/2025 11:20:32 05/10/19 25 05/10/2024 urina lysis , dipst ick, auto nitrite, ql, test strip, urine (obs) NEGATI VE text: negati ve Not Available Not Available 01/09/2025 11:20:32 05/10/19 25 05/10/2024 urina lysis , dipst ick, auto glucose, ql, test strip, urine NEGATI VE text: negati ve Not Available Not Available 01/09/2025 11:20:32 05/10/19 25 05/10/2024 urina lysis , dipst ick, auto ketones, urine dipstick NEGATI VE text: negati ve Not Available Not Available 01/09/2025 11:20:32 05/10/19 25 05/10/2024 urina lysis , dipst ick, auto bilirubin, qualitative, urine (obs) NEGATI VE text: negati ve Not Available Not Available 01/09/2025 11:20:32 05/10/19 25 05/10/2024 urina lysis , dipst ick, auto urobilinogen , qn, test strip, urine 0.2 eu/dL low: 0.1eu/ dLhigh : 1eu/dL Not Available Not Available 01/09/2025 11:20:32 05/10/19 25 05/10/2024 urina lysis , dipst ick, auto lab interpretati on NORMAL Not Available Not Available 12/20 11:20:32 07/13/19 25 07/14/2024 cultu re, urine culture, urine 10,000 -50,00 0 CFU/ML UROGEN ITAL SERENA Not Available Not Available 15:04:52 07/29/19 25 07/29/2024 HIV 1+2 AB + HIV 1 p24 Ag, quali tativ e immun oassa y, serum HIV 1+2 Ab + HIV 1 P24 Ag, qualitative immunoassay, serum NONREA CTIVE text: nonrea ctive Not Available Not Available 01/09/2025 11:30:32 07/29/19 25 07/29/2024 HIV 1+2 AB + HIV 1 p24 Ag, quali tativ e immun oassa y, serum HIV-1 antigen and HIV-1/HIV-2 antibodies were not detected. no laboratory evidence of HIV infection. HIV-1 ANTIGE N AND HIV-1/ HIV-2 ANTIBO DIES WERE NOT DETECT ED. NO MER[facility]EDESA ESTRELLA [facility]ID[facility] OF HIV INFECT ION. Not Available Not Available 11:30:32 07/29/1907/29/2024 HIV 1+2 AB + HIV 1 p24 Ag, quali tativ e immun oassa y, serum lab interpretati on NORMAL Not Available Not Available 12/20 11:30:32 08/24/1908/23/2024 HbA1c (hemo globi n A1c), blood HbA1C (hemoglobin A1C), blood 5.3 % high: 5.7% Not Available Not Available 01/09/2025 11:10:32 08/24/19 25 08/23/2024 HbA1c (hemo globi n A1c), blood estimated average glucose 105 mg/dL Not Available Not Available 12/20 11:10:32 08/24/1908/23/2024 HbA1c (hemo globi n A1c), blood HbA1C interpretati on: normal: < 5.7% pre-diabetes : 5.7-6.4% diabetes: equal to or greater than 6.5% test results diagnostic of diabetes should BE repeated for confirmation . treatment target values recommended by ada and other clinical organization s should BE used to evaluate metabolic control in patients. this test should not replace glucose testing for patients with type 1 diabetes, pediatric patients, or women. falsely low HbA1C results may BE observed in patients with clinical conditions that shorten erythrocyte life span or decrease mean erythrocyte age such the presence of unstable hemoglobin variants, elevated hemoglobin F level or other causes of hemolytic anemia. HbA1C may not accurately reflect glycemic control when clinical conditions that affect erythrocyte survival are present. severe iron deficiency anemia may yield falsely high results. hemoglobin A1C assay should not BE used to diagnose or monitor diabetes in patients with malignancy, recent blood transfusion, chronic kidney or liver disease. this method may yield falsely low results when hemoglobin (hbf) exceeds 5% in the specimen. the seth OY LX Therapiesnity assay for the measurement of HbA1C IS A national glycohemoglo bin standardizat ion program (ngsp) certified method. HBA1C INTERP RETATI ON: NORMAL : < 5.7% PRE-DI ABETES : 5.7-6. 4% DIABET ES: EQUAL TO OR GREATE R THAN 6.5% TEST RESULT S DIAGNO STIC OF DIABET ES SHOULD BE REPEAT ED FOR CONFIR MATION . TREATM ENT TARGET VALUES RECOMM ENDED BY ADA AND OTHER CLINIC AL ORGANI ZATION S SHOULD BE USED TO EVALUA TE METABO LIC CONTRO L IN PATIEN TS. THIS TEST SHOULD NOT REPLAC E GLUCOS E TESTIN G FOR PATIEN TS WITH TYPE 1 DIABET ES, PEDIAT ISABEL PATIEN TS, OR PREGNA NT WOMEN. FALSEL Y LOW HBA1C RESULT S MAY BE OBSERV ED IN PATIEN TS WITH CLINIC AL CONDIT IONS THAT SHORTE N ERYTHR OCYTE LIFE SPAN OR DECREA SE MEAN ERYTHR OCYTE AGE SUCH THE PRESEN CE OF UNSTAB LE HEMOGL OBIN VARIAN TS, ELEVAT ED HEMOGL OBIN F LEVEL OR OTHER CAUSES OF HEMOLY TIC ANEMIA . HBA1C MAY NOT ACCURA TELY REFLEC T GLYCEM IC CONTRO L WHEN CLINIC AL CONDIT IONS THAT AFFECT ERYTHR OCYTE SURVIV AL ARE PRESEN T. SEVERE IRON DEFICI ENCY ANEMIA MAY YIELD FALSEL Y HIGH RESULT S. HEMOGL OBIN A1C ASSAY SHOULD NOT BE USED TO DIAGNO SE OR MONITO R DIABET ES IN PATIEN TS WITH MALIGN JANE, RECENT BLOOD TRANSF USION, CHRONI C KIDNEY OR LIVER DISEAS E. THIS METHOD MAY YIELD FALSEL Y LOW RESULT S WHEN HEMOGL OBIN (HBF) EXCEED S 5% IN THE SPECIM EN. THE [place] ALINIT Y ASSAY FOR THE MEASUR EMENT OF HBA1C IS A NATION AL GLYCOH EMOGLO BIN STANDA RDIZAT ION PROGRA M (NGSP) CERTIF IED METHOD . Not Available Not Available 11:10:32 08/24/19 25 08/23/2024 urina lysis , dipst ick, auto color, urine (obs) YELLOW text: straw, yellow , dark yellow , light yellow Not Available Not Available 01/09/2025 11:10:39 08/24/19 25 08/23/2024 urina lysis , dipst ick, auto clarity of urine (obs) CLEAR text: clear Not Available Not Available 01/09/2025 11:10:39 08/24/19 25 08/23/2024 urina lysis , dipst ick, auto urinalysis, dipstick, auto 1.025 low: 1.005h igh: 1.03 Not Available Not Available 01/09/2025 11:10:39 08/24/1908/23/2024 urina lysis , dipst ick, auto pH, test strip, urine 6.5 pH low: 5pHhig h: 8pH Not Available Not Available 01/09/2025 11:10:39 08/24/1908/23/2024 urina lysis , dipst ick, auto protein, dipstick, urine TRACE text: negati ve abnormal Not Available Not Available 01/09/2025 11:10:39 08/24/1908/23/2024 urina lysis , dipst ick, auto hemoglobin, qual, urine NEGATI VE text: negati ve Not Available Not Available 01/09/2025 11:10:39 08/24/1908/23/2024 urina lysis , dipst ick, auto leukocyte esterase, ql, test strip, urine (obs) NEGATI VE text: negati ve Not Available Not Available 01/09/2025 11:10:39 08/24/1908/23/2024 urina lysis , dipst ick, auto nitrite, ql, test strip, urine (obs) NEGATI VE text: negati ve Not Available Not Available 01/09/2025 11:10:39 08/24/1908/23/2024 urina lysis , dipst ick, auto glucose, ql, test strip, urine NEGATI VE text: negati ve Not Available Not Available 01/09/2025 11:10:39 08/24/19 25 08/23/2024 urina lysis , dipst ick, auto ketones, urine dipstick NEGATI VE text: negati ve Not Available Not Available 01/09/2025 11:10:39 08/24/1908/23/2024 urina lysis , dipst ick, auto bilirubin, qualitative, urine (obs) NEGATI VE text: negati ve Not Available Not Available 01/09/2025 11:10:39 08/24/19 25 08/23/2024 urina lysis , dipst ick, auto urobilinogen , qn, test strip, urine 0.2 eu/dL low: 0.1eu/ dLhigh : 1eu/dL Not Available Not Available 01/09/2025 11:10:39 08/24/19 25 08/23/2024 urina lysis , dipst ick, auto lab interpretati on ABNORM AL Not Available Not Available 11:10:39 09/07/19 25 09/07/2024 cultu re, urine culture, urine 10,000 -50,00 0 CFU/ML UROGEN ITAL SERENA Not Available Not Available 14:54:54 09/07/19 25 09/06/2024 gluco se, QN [mass /volu me], arter ial blood glucose, qn, fingerstick, blood (glucometer) 67 mg/dL low: 70mg/d Lhigh: 99mg/d L low Not Available Not Available 01/09/2025 11:30:36 09/07/19 25 09/06/2024 gluco se, QN [mass /volu me], arter ial blood specimen source identified (obs) ARTERI AL/CAP ILLARY Not Available Not Available 11:30:36 09/07/19 25 09/06/2024 gluco se, QN [mass /volu me], arter ial blood lab interpretati on ABNORM AL Not Available Not Available 11:30:36 09/07/19 25 09/06/2024 urina lysis , dipst ick, auto color, urine (obs) YELLOW text: straw, yellow , dark yellow , light yellow Not Available Not Available 01/09/2025 11:30:36 09/07/19 25 09/06/2024 urina lysis , dipst ick, auto clarity of urine (obs) CLEAR text: clear Not Available Not Available 01/09/2025 11:30:36 09/07/19 25 09/06/2024 urina lysis , dipst ick, auto urinalysis, dipstick, auto 1.025 low: 1.005h igh: 1.03 Not Available Not Available 01/09/2025 11:30:36 09/07/19 25 09/06/2024 urina lysis , dipst ick, auto pH, test strip, urine 6.5 pH low: 5pHhig h: 8pH Not Available Not Available 01/09/2025 11:30:36 09/07/19 25 09/06/2024 urina lysis , dipst ick, auto protein, dipstick, urine 1+ text: negati ve abnormal Not Available Not Available 01/09/2025 11:30:36 09/07/19 25 09/06/2024 urina lysis , dipst ick, auto hemoglobin, qual, urine NEGATI VE text: negati ve Not Available Not Available 01/09/2025 11:30:36 09/07/19 25 09/06/2024 urina lysis , dipst ick, auto leukocyte esterase, ql, test strip, urine (obs) 1+ text: negati ve abnormal Not Available Not Available 01/09/2025 11:30:36 09/07/19 25 09/06/2024 urina lysis , dipst ick, auto nitrite, ql, test strip, urine (obs) NEGATI VE text: negati ve Not Available Not Available 01/09/2025 11:30:36 09/07/19 25 09/06/2024 urina lysis , dipst ick, auto glucose, ql, test strip, urine NEGATI VE text: negati ve Not Available Not Available 01/09/2025 11:30:36 09/07/19 25 09/06/2024 urina lysis , dipst ick, auto ketones, urine dipstick TRACE text: negati ve abnormal Not Available Not Available 01/09/2025 11:30:36 09/07/19 25 09/06/2024 urina lysis , dipst ick, auto bilirubin, qualitative, urine (obs) NEGATI VE text: negati ve Not Available Not Available 01/09/2025 11:30:36 09/07/19 25 09/06/2024 urina lysis , dipst ick, auto urobilinogen , qn, test strip, urine 0.2 eu/dL low: 0.1eu/ dLhigh : 1eu/dL Not Available Not Available 01/09/2025 11:30:36 09/07/19 25 09/06/2024 urina lysis , dipst ick, auto lab interpretati on ABNORM AL Not Available Not Available 11:30:36 09/16/19 25 09/15/2024 strep tococ cus group B, cultu re, unspe cifie d speci men result report SEE RESULT S BELOW abnormal Test: Cultu re: Group B Strep , Refle x Susce ptibi lity ([facility]/ [facility] ) Speci men Sourc e: Vagin a/Rec lynne Speci men Type: Vagin al/Re ctal Speci men Date: 2024 1649 Resul t Date: 025 1802 Resul t Statu s: Final resul t Abnor mal: Yes Resul ting Lab: [facility] [address] [facility] [place] [address] Tel: CULTU RE ----- ----- ----- --- Posit wili for Strep tococ cus agala ctiae (Grou p B) ([facility]) Clind amyci n = resis tant, eryth [...] susan for these drugs . Not Available Not Available 01/09/2025 11:20:43 09/27/19 25 09/26/2024 gluco se, QN [mass /volu me], arter ial blood glucose, qn, fingerstick, blood (glucometer) 78 mg/dL low: 70mg/d Lhigh: 99mg/d L Not Available Not Available 01/13/2025 14:55:08 09/27/19 25 09/26/2024 gluco se, QN [mass /volu me], arter ial blood specimen source identified (obs) ARTERI AL/CAP ILLARY Not Available Not Available 14:55:08 09/27/19 25 09/26/2024 gluco se, QN [mass /volu me], arter ial blood glucose, qn, fingerstick, blood (glucometer) 83 mg/dL low: 70mg/d Lhigh: 99mg/d L Not Available Not Available 01/13/2025 14:55:08 09/27/19 25 09/26/2024 gluco se, QN [mass /volu me], arter ial blood specimen source identified (obs) ARTERI AL/CAP ILLARY Not Available Not Available 14:55:08 09/27/19 25 09/26/2024 gluco se, QN [mass /volu me], arter ial blood glucose, qn, fingerstick, blood (glucometer) 134 mg/dL low: 70mg/d Lhigh: 99mg/d L high Not Available Not Available 01/13/2025 14:55:08 09/27/19 25 09/26/2024 gluco se, QN [mass /volu me], arter ial blood specimen source identified (obs) ARTERI AL/CAP ILLARY Not Available Not Available 14:55:08 09/27/19 25 09/26/2024 gluco se, QN [mass /volu me], arter ial blood lab interpretati on ABNORM AL Not Available Not Available 14:55:08 09/27/19 25 09/26/2024 gluco se, QN [mass /volu me], arter ial blood glucose, qn, fingerstick, blood (glucometer) 159 mg/dL low: 70mg/d Lhigh: 99mg/d L high Not Available Not Available 01/13/2025 14:55:08 09/27/19 25 09/26/2024 gluco se, QN [mass /volu me], arter ial blood specimen source identified (obs) ARTERI AL/CAP ILLARY Not Available Not Available 14:55:08 09/27/19 25 09/26/2024 gluco se, QN [mass /volu me], arter ial blood lab interpretati on ABNORM AL Not Available Not Available 14:55:08 09/27/19 25 09/26/2024 gluco se, QN [mass /volu me], arter ial blood glucose, qn, fingerstick, blood (glucometer) 77 mg/dL low: 70mg/d Lhigh: 99mg/d L Not Available Not Available 01/13/2025 14:55:08 09/27/19 25 09/26/2024 gluco se, QN [mass /volu me], arter ial blood specimen source identified (obs) ARTERI AL/CAP ILLARY Not Available Not Available 14:55:08 09/27/19 25 09/26/2024 gluco se, QN [mass /volu me], arter ial blood glucose, qn, fingerstick, blood (glucometer) 60 mg/dL low: 70mg/d Lhigh: 99mg/d L low Not Available Not Available 01/13/2025 14:55:08 09/27/1909/26/2024 gluco se, QN [mass /volu me], arter ial blood specimen source identified (obs) ARTERI AL/CAP ILLARY Not Available Not Available 14:55:08 09/27/1909/26/2024 gluco se, QN [mass /volu me], arter ial blood lab interpretati on ABNORM AL Not Available Not Available 14:55:08 09/27/1909/26/2024 trepo nema palli dum IgG + IgM Ab, QL, IA, serum treponema pallidum IgG + IgM Ab, ql, ia, serum NON REACTI VE text: non reacti ve No Labor atory evide nce of syphi lis infec tion. Note: Circu latin g antib odies may be low or undet ectab le in early infec tion. If recen t expos ure is suspe cted, re-dr beto delaney e in 2-4 weeks and repea t testi ng. Not Available Not Available 01/13/2025 14:55:08 09/27/1909/26/2024 trepo nema palli dum IgG + IgM Ab, QL, IA, serum lab interpretati on NORMAL Not Available Not Available 12/20 14:55:08 09/27/19 25 09/26/2024 CBC w/ auto diff WBC, auto, blood 10.2 text: 4.0 - 10.7 x10e9/ L Not Available Not Available 01/13/2025 14:55:08 09/27/1909/26/2024 CBC w/ auto diff RBC count, blood 4.18 text: 3.90 - 5.20 x10e12 /L Not Available Not Available 01/13/2025 14:55:08 09/27/19 25 09/26/2024 CBC w/ auto diff hemoglobin (Hb), blood 11 g/dL low: 11.9g/ dLhigh : 15.8g/ dL low Not Available Not Available 01/13/2025 14:55:08 09/27/1909/26/2024 CBC w/ auto diff hematocrit, automated count, blood 34.3 % low: 34.8%h igh: 46.1% low Not Available Not Available 01/13/2025 14:55:08 09/27/1909/26/2024 CBC w/ auto diff MCV, blood 82.1 fL low: 80fLhi gh: 98fL Not Available Not Available 01/13/2025 14:55:08 09/27/19 25 09/26/2024 CBC w/ auto diff MCH, qn, automated (obs) 26.3 pg low: 26.7pg high: 33.6pg low Not Available Not Available 01/13/2025 14:55:09/27/1909/26/2024 CBC w/ auto diff MCHC, qn, automated (obs) 32.1 g/dL low: 31.7g/ dLhigh : 36.3g/ dL Not Available Not Available 01/13/2025 14:55:09/27/1909/26/2024 CBC w/ auto diff erythrocyte distribution width, ratio, automated (obs) 14.2 % low: 11.3%h igh: 14.8% Not Available Not Available 01/13/2025 14:55:08 09/27/1909/26/2024 CBC w/ auto diff platelets, auto, blood 244 text: 150 - 420 x10e9/ L Not Available Not Available 01/13/2025 14:55:08 09/27/19 25 09/26/2024 CBC w/ auto diff platelet mean volume, qn, automated, blood (obs) 12.1 fL low: 7.8fLh igh: 11.4fL high Not Available Not Available 01/13/2025 14:55:09/27/19 25 09/26/2024 CBC w/ auto diff neutrophils/ 100 leukocytes, automated, blood (obs) 61.5 % low: 41%hig h: 74% Not Available Not Available 01/13/2025 14:55:09/27/19 25 09/26/2024 CBC w/ auto diff lymphocytes/ 100 leukocytes, automated, blood (obs) 30 % low: 17%hig h: 47% Not Available Not Available 01/13/2025 14:55:08 09/27/19 25 09/26/2024 CBC w/ auto diff monocytes/10 0 leukocytes, automated, blood (obs) 7 % low: 3%high : 11% Not Available Not Available 01/13/2025 14:55:08 09/27/19 25 09/26/2024 CBC w/ auto diff eosinophils/ 100 leukocytes, automated, blood (obs) 0.8 % low: 0%high : 7% Not Available Not Available 01/13/2025 14:55:08 09/27/19 25 09/26/2024 CBC w/ auto diff basophils/10 0 leukocytes, automated, blood (obs) 0.2 % low: 0%high : 1.6% Not Available Not Available 01/13/2025 14:55:08 09/27/19 25 09/26/2024 CBC w/ auto diff immature granulocytes /100 leukocytes, automated, blood (obs) 0.5 % low: 0%high : 1% Not Available Not Available 01/13/2025 14:55:09/27/19 25 09/26/2024 CBC w/ auto diff neutrophil count, absolute (anc), blood (obs) 6.24 text: 1.60 - 7.50 x10e9/ L Not Available Not Available 01/13/2025 14:55:09/27/19 25 09/26/2024 CBC w/ auto diff lymphocytes, quantitative , blood, automated count (obs) 3.05 text: 1.00 - 4.40 x10e9/ L Not Available Not Available 01/13/2025 14:55:08 09/27/19 25 09/26/2024 CBC w/ auto diff monocytes, count, automated, blood (obs) 0.71 text: 0.15 - 1.00 x10e9/ L Not Available Not Available 01/13/2025 14:55:08 09/27/19 25 09/26/2024 CBC w/ auto diff eosinophils, quant, blood 0.08 text: 0.00 - 0.60 x10e9/ L Not Available Not Available 01/13/2025 14:55:08 09/27/19 25 09/26/2024 CBC w/ auto diff basophils, quant, auto, blood (obs) 0.02 text: 0.00 - 0.13 x10e9/ L Not Available Not Available 01/13/2025 14:55:08 09/27/1909/26/2024 CBC w/ auto diff lab interpretati on ABNORM AL Not Available Not Available 14:55:08 09/27/19 25 09/26/2024 type + scree n, blood ABO group + Rh type, blood A POS Histo ry check ed. Not Available Not Available 01/13/2025 14:55:08 09/27/1909/26/2024 type + scree n, blood antibody screen, serum or plasma NEG Not Available Not Available 12/20 14:55:08 09/27/1909/26/2024 gluco se, QN [mass /volu me], arter ial blood glucose, qn, fingerstick, blood (glucometer) 71 mg/dL low: 70mg/d Lhigh: 99mg/d L Not Available Not Available 01/13/2025 14:55:08 09/27/19 25 09/26/2024 gluco se, QN [mass /volu me], arter ial blood specimen source identified (obs) ARTERI AL/CAP ILLARY Not Available Not Available 14:55:09/27/1909/26/2024 urina lysis , dipst ick, auto color, urine (obs) YELLOW text: straw, yellow , dark yellow , light yellow Not Available Not Available 01/13/2025 15:15:02 09/27/19 25 09/26/2024 urina lysis , dipst ick, auto clarity of urine (obs) CLEAR text: clear Not Available Not Available 01/13/2025 15:15:02 09/27/1909/26/2024 urina lysis , dipst ick, auto urinalysis, dipstick, auto 1.025 low: 1.005h igh: 1.03 Not Available Not Available 01/13/2025 15:15:02 09/27/19 25 09/26/2024 urina lysis , dipst ick, auto pH, test strip, urine 6.5 pH low: 5pHhig h: 8pH Not Available Not Available 01/13/2025 15:15:02 09/27/19 25 09/26/2024 urina lysis , dipst ick, auto protein, dipstick, urine 2+ text: negati ve abnormal Not Available Not Available 01/13/2025 15:15:02 09/27/1909/26/2024 urina lysis , dipst ick, auto hemoglobin, qual, urine TRACE- INTACT text: negati ve abnormal Not Available Not Available 01/13/2025 15:15:02 09/27/19 25 09/26/2024 urina lysis , dipst ick, auto leukocyte esterase, ql, test strip, urine (obs) NEGATI VE text: negati ve Not Available Not Available 01/13/2025 15:15:02 09/27/19 25 09/26/2024 urina lysis , dipst ick, auto nitrite, ql, test strip, urine (obs) NEGATI VE text: negati ve Not Available Not Available 01/13/2025 15:15:02 09/27/19 25 09/26/2024 urina lysis , dipst ick, auto glucose, ql, test strip, urine NEGATI VE text: negati ve Not Available Not Available 01/13/2025 15:15:02 09/27/19 25 09/26/2024 urina lysis , dipst ick, auto ketones, urine dipstick NEGATI VE text: negati ve Not Available Not Available 01/13/2025 15:15:02 09/27/19 25 09/26/2024 urina lysis , dipst ick, auto bilirubin, qualitative, urine (obs) NEGATI VE text: negati ve Not Available Not Available 01/13/2025 15:15:02 09/27/1909/26/2024 urina lysis , dipst ick, auto urobilinogen , qn, test strip, urine 0.2 eu/dL low: 0.1eu/ dLhigh : 1eu/dL Not Available Not Available 01/13/2025 15:15:02 09/27/19 25 09/26/2024 urina lysis , dipst ick, auto lab interpretati on ABNORM AL Not Available Not Available 15:15:02 09/28/19 25 09/27/2024 gluco se, QN [mass /volu me], arter ial blood glucose, qn, fingerstick, blood (glucometer) 100 mg/dL low: 70mg/d Lhigh: 99mg/d L high Not Available Not Available 01/13/2025 14:55:09/28/1909/27/2024 gluco se, QN [mass /volu me], arter ial blood specimen source identified (obs) ARTERI AL/CAP ILLARY Not Available Not Available 14:55:09/28/1909/27/2024 gluco se, QN [mass /volu me], arter ial blood lab interpretati on ABNORM AL Not Available Not Available 14:55:09/28/1909/27/2024 gluco se, QN [mass /volu me], arter ial blood glucose, qn, fingerstick, blood (glucometer) 126 mg/dL low: 70mg/d Lhigh: 99mg/d L high Not Available Not Available 01/13/2025 14:55:09/28/1909/27/2024 gluco se, QN [mass /volu me], arter ial blood specimen source identified (obs) ARTERI AL/CAP ILLARY Not Available Not Available 14:55:09/28/1909/27/2024 gluco se, QN [mass /volu me], arter ial blood lab interpretati on ABNORM AL Not Available Not Available 14:55:09/28/1909/27/2024 gas panel , venou s cord blood pH, venous cord blood 7.33 pH low: 7.28pH high: 7.4pH Not Available Not Available 01/13/2025 14:55:09/28/1909/27/2024 gas panel , venou s cord blood carbon dioxide, partial pressure, venous cord blood 38.2 text: 35 - 45 mm hg Not Available Not Available 01/13/2025 14:55:09/28/1909/27/2024 gas panel , venou s cord blood oxygen, partial pressure, venous cord blood 25 text: 22 - 33 mm hg Not Available Not Available 01/13/2025 14:55:09/28/1909/27/2024 gas panel , venou s cord blood bicarbonate, qn, venous cord blood 20.3 mmol/ L low: 22mmol /Lhigh : 24mmol /L low Not Available Not Available 01/13/2025 14:55:09/28/1909/27/2024 gas panel , venou s cord blood base excess, calculation, venous cord blood (obs) -5 mmol/ L low: -6.4mm ol/Lhi gh: 1.6mmo l/L Not Available Not Available 01/13/2025 14:55:09/28/1909/27/2024 gas panel , venou s cord blood carbon dioxide, total, qn, venous cord blood 21 mmol/ L low: 22mmol /Lhigh : 30mmol /L low Not Available Not Available 01/13/2025 14:55:09/28/1909/27/2024 gas panel , venou s cord blood oxygen saturation, arterial cord blood (obs) 41 % Not Available Not Available 12/20 14:55:09/28/1909/27/2024 gas panel , venou s cord blood specimen source identified (obs) CORD WAYLON Not Available Not Available 14:55:09/28/1909/27/2024 gas panel , venou s cord blood specimen source identified (obs) CORD WAYLON Not Available Not Available 14:55:09/28/1909/27/2024 gas panel , venou s cord blood lab interpretati on ABNORM AL Not Available Not Available 14:55:09/28/1909/27/2024 gas panel , arter ial cord blood pH, arterial cord blood 7.28 pH low: 7.2pHh igh: 7.34pH Not Available Not Available 01/13/2025 14:55:09/28/1909/27/2024 gas panel , arter ial cord blood carbon dioxide, partial pressure, arterial cord blood 45 text: 45 - 55 mm hg Not Available Not Available 01/13/2025 14:55:09/28/1909/27/2024 gas panel , arter ial cord blood oxygen, partial pressure, arterial cord blood 20 text: 12 - 25 mm hg Not Available Not Available 01/13/2025 14:55:09/28/1909/27/2024 gas panel , arter ial cord blood bicarbonate, qn, arterial cord blood 21.3 mmol/ L low: 22mmol /Lhigh : 24mmol /L low Not Available Not Available 01/13/2025 14:55:09/28/1909/27/2024 gas panel , arter ial cord blood base excess, calculation, arterial cord blood (obs) -5 mmol/ L low: -2.9mm ol/Lhi gh: 8.3mmo l/L low Not Available Not Available 01/13/2025 14:55:09/28/1909/27/2024 gas panel , arter ial cord blood carbon dioxide, total, qn, arterial cord blood 23 mmol/ L Not Available Not Available 01/14/20 14:55:09/28/1909/27/2024 gas panel , arter ial cord blood oxygen saturation, arterial cord blood (obs) 27 % Not Available Not Available 12/20 14:55:09/28/1909/27/2024 gas panel , arter ial cord blood specimen source identified (obs) CORD ART Not Available Not Available 14:55:09/28/1909/27/2024 gas panel , arter ial cord blood specimen source identified (obs) CORD ART Not Available Not Available 14:55:09/28/1909/27/2024 gas panel , arter ial cord blood lab interpretati on ABNORM AL Not Available Not Available 14:55:09/28/1909/27/2024 gluco se, QN [mass /volu me], arter ial blood glucose, qn, fingerstick, blood (glucometer) 97 mg/dL low: 70mg/d Lhigh: 99mg/d L Not Available Not Available 01/13/2025 14:55:09/28/1909/27/2024 gluco se, QN [mass /volu me], arter ial blood specimen source identified (obs) ARTERI AL/CAP ILLARY Not Available Not Available 14:55:09/28/1909/27/2024 gluco se, QN [mass /volu me], arter ial blood glucose, qn, fingerstick, blood (glucometer) 85 mg/dL low: 70mg/d Lhigh: 99mg/d L Not Available Not Available 01/13/2025 14:55:09/28/1909/27/2024 gluco se, QN [mass /volu me], arter ial blood specimen source identified (obs) ARTERI AL/CAP ILLARY Not Available Not Available 14:55:09/28/1909/27/2024 gluco se, QN [mass /volu me], arter ial blood glucose, qn, fingerstick, blood (glucometer) 80 mg/dL low: 70mg/d Lhigh: 99mg/d L Not Available Not Available 01/13/2025 14:55:09/28/1909/27/2024 gluco se, QN [mass /volu me], arter ial blood specimen source identified (obs) ARTERI AL/CAP ILLARY Not Available Not Available 14:55:09/28/1909/27/2024 gluco se, QN [mass /volu me], arter ial blood glucose, qn, fingerstick, blood (glucometer) 72 mg/dL low: 70mg/d Lhigh: 99mg/d L Not Available Not Available 01/13/2025 14:55:09/28/1909/27/2024 gluco se, QN [mass /volu me], arter ial blood specimen source identified (obs) ARTERI AL/CAP ILLARY Not Available Not Available 14:55:09/29/1909/28/2024 gluco se, QN [mass /volu me], arter ial blood glucose, qn, fingerstick, blood (glucometer) 158 mg/dL low: 70mg/d Lhigh: 99mg/d L high Not Available Not Available 01/13/2025 14:55:09/29/1909/28/2024 gluco se, QN [mass /volu me], arter ial blood specimen source identified (obs) ARTERI AL/CAP ILLARY Not Available Not Available 14:55:09/29/1909/28/2024 gluco se, QN [mass /volu me], arter ial blood lab interpretati on ABNORM AL Not Available Not Available 14:55:09/29/1909/28/2024 gluco se, QN [mass /volu me], arter ial blood glucose, qn, fingerstick, blood (glucometer) 115 mg/dL low: 70mg/d Lhigh: 99mg/d L high Not Available Not Available 01/13/2025 14:55:09/29/1909/28/2024 gluco se, QN [mass /volu me], arter ial blood specimen source identified (obs) ARTERI AL/CAP ILLARY Not Available Not Available 14:55:09/29/1909/28/2024 gluco se, QN [mass /volu me], arter ial blood lab interpretati on ABNORM AL Not Available Not Available 14:55:09/29/19 25 09/28/2024 gluco se, QN [mass /volu me], arter ial blood glucose, qn, fingerstick, blood (glucometer) 84 mg/dL low: 70mg/d Lhigh: 99mg/d L Not Available Not Available 01/13/2025 14:55:09/29/1909/28/2024 gluco se, QN [mass /volu me], arter ial blood specimen source identified (obs) ARTERI AL/CAP ILLARY Not Available Not Available 14:55:09/29/1909/28/2024 CBC w/ auto diff WBC, auto, blood 10 text: 4.0 - 10.7 x10e9/ L Not Available Not Available 01/13/2025 14:55:09/29/1909/28/2024 CBC w/ auto diff RBC count, blood 3.09 text: 3.90 - 5.20 x10e12 /L low Not Available Not Available 01/13/2025 14:55:09/29/1909/28/2024 CBC w/ auto diff hemoglobin (Hb), blood 8.4 g/dL low: 11.9g/ dLhigh : 15.8g/ dL low Not Available Not Available 01/13/2025 14:55:09/29/1909/28/2024 CBC w/ auto diff hematocrit, automated count, blood 26 % low: 34.8%h igh: 46.1% low Not Available Not Available 01/13/2025 14:55:09/29/1909/28/2024 CBC w/ auto diff MCV, blood 84.1 fL low: 80fLhi gh: 98fL Not Available Not Available 01/13/2025 14:55:09/29/1909/28/2024 CBC w/ auto diff MCH, qn, automated (obs) 27.2 pg low: 26.7pg high: 33.6pg Not Available Not Available 01/13/2025 14:55:09/29/1909/28/2024 CBC w/ auto diff MCHC, qn, automated (obs) 32.3 g/dL low: 31.7g/ dLhigh : 36.3g/ dL Not Available Not Available 01/13/2025 14:55:09/29/1909/28/2024 CBC w/ auto diff erythrocyte distribution width, ratio, automated (obs) 14.8 % low: 11.3%h igh: 14.8% Not Available Not Available 01/13/2025 14:55:09/29/1909/28/2024 CBC w/ auto diff platelets, auto, blood 242 text: 150 - 420 x10e9/ L Not Available Not Available 01/13/2025 14:55:09/29/1909/28/2024 CBC w/ auto diff platelet mean volume, qn, automated, blood (obs) 11.5 fL low: 7.8fLh igh: 11.4fL high Not Available Not Available 01/13/2025 14:55:09/29/1909/28/2024 CBC w/ auto diff neutrophils/ 100 leukocytes, automated, blood (obs) 57.6 % low: 41%hig h: 74% Not Available Not Available 01/13/2025 14:55:09/29/1909/28/2024 CBC w/ auto diff lymphocytes/ 100 leukocytes, automated, blood (obs) 35.2 % low: 17%hig h: 47% Not Available Not Available 01/13/2025 14:55:09/29/1909/28/2024 CBC w/ auto diff monocytes/10 0 leukocytes, automated, blood (obs) 5.9 % low: 3%high : 11% Not Available Not Available 01/13/2025 14:55:09/29/1909/28/2024 CBC w/ auto diff eosinophils/ 100 leukocytes, automated, blood (obs) 0.6 % low: 0%high : 7% Not Available Not Available 01/13/2025 14:55:09/29/1909/28/2024 CBC w/ auto diff basophils/10 0 leukocytes, automated, blood (obs) 0.2 % low: 0%high : 1.6% Not Available Not Available 01/13/2025 14:55:09/29/1909/28/2024 CBC w/ auto diff immature granulocytes /100 leukocytes, automated, blood (obs) 0.5 % low: 0%high : 1% Not Available Not Available 01/13/2025 14:55:09/29/1909/28/2024 CBC w/ auto diff neutrophil count, absolute (anc), blood (obs) 5.79 text: 1.60 - 7.50 x10e9/ L Not Available Not Available 01/13/2025 14:55:09/29/1909/28/2024 CBC w/ auto diff lymphocytes, quantitative , blood, automated count (obs) 3.53 text: 1.00 - 4.40 x10e9/ L Not Available Not Available 01/13/2025 14:55:09/29/1909/28/2024 CBC w/ auto diff monocytes, count, automated, blood (obs) 0.59 text: 0.15 - 1.00 x10e9/ L Not Available Not Available 01/13/2025 14:55:09/29/1909/28/2024 CBC w/ auto diff eosinophils, quant, blood 0.06 text: 0.00 - 0.60 x10e9/ L Not Available Not Available 01/13/2025 14:55:09/29/1909/28/2024 CBC w/ auto diff basophils, quant, auto, blood (obs) 0.02 text: 0.00 - 0.13 x10e9/ L Not Available Not Available 01/13/2025 14:55:09/29/1909/28/2024 CBC w/ auto diff lab interpretati on ABNORM AL Not Available Not Available 14:55:09/30/1909/29/2024 gluco se, QN [mass /volu me], arter ial blood glucose, qn, fingerstick, blood (glucometer) 177 mg/dL low: 70mg/d Lhigh: 99mg/d L high Not Available Not Available 01/13/2025 14:55:09/30/1909/29/2024 gluco se, QN [mass /volu me], arter ial blood specimen source identified (obs) ARTERI AL/CAP ILLARY Not Available Not Available 14:55:09/30/1909/29/2024 gluco se, QN [mass /volu me], arter ial blood lab interpretati on ABNORM AL Not Available Not Available 14:55:09/30/1909/29/2024 gluco se, QN [mass /volu me], arter ial blood glucose, qn, fingerstick, blood (glucometer) 119 mg/dL low: 70mg/d Lhigh: 99mg/d L high Not Available Not Available 01/13/2025 14:55:09/30/1909/29/2024 gluco se, QN [mass /volu me], arter ial blood specimen source identified (obs) ARTERI AL/CAP ILLARY Not Available Not Available 14:55:09/30/1909/29/2024 gluco se, QN [mass /volu me], arter ial blood lab interpretati on ABNORM AL Not Available Not Available 14:55:09/30/19 25 09/29/2024 gluco se, QN [mass /volu me], arter ial blood glucose, qn, fingerstick, blood (glucometer) 85 mg/dL low: 70mg/d Lhigh: 99mg/d L Not Available Not Available 01/13/2025 14:55:09/30/1909/29/2024 gluco se, QN [mass /volu me], arter ial blood specimen source identified (obs) ARTERI AL/CAP ILLARY Not Available Not Available 14:55:11/11/1911/10/2024 micro album in/cr eatin ine, mass ratio , urine creatinine, urine 236.91 mg/dL Not Available Not Available 12/20 11:10:43 11/11/19 25 11/10/2024 micro album in/cr eatin ine, mass ratio , urine microalbumin , urine 6.2 mg/dL Not Available Not Available 12/20 11:10:43 11/11/19 25 11/10/2024 micro album in/cr eatin ine, mass ratio , urine microalbumin /creatinine, mass ratio, urine 26 mg/g high: 30mg/g Not Available Not Available 01/09/2025 11:10:43 11/11/19 25 11/10/2024 HbA1c (hemo globi n A1c), blood HbA1C (hemoglobin A1C), blood 5.3 % high: 5.7% Not Available Not Available 01/09/2025 11:10:43 11/11/19 25 11/10/2024 HbA1c (hemo globi n A1c), blood estimated average glucose 105 mg/dL Not Available Not Available 12/20 11:10:43 11/11/19 25 11/10/2024 HbA1c (hemo globi n A1c), blood HbA1C interpretati on: normal: < 5.7% pre-diabetes : 5.7-6.4% diabetes: equal to or greater than 6.5% test results diagnostic of diabetes should BE repeated for confirmation . treatment target values recommended by ada and other clinical organization s should BE used to evaluate metabolic control in patients. this test should not replace glucose testing for patients with type 1 diabetes, pediatric patients, or women. falsely low HbA1C results may BE observed in patients with clinical conditions that shorten erythrocyte life span or decrease mean erythrocyte age such the presence of unstable hemoglobin variants, elevated hemoglobin F level or other causes of hemolytic anemia. HbA1C may not accurately reflect glycemic control when clinical conditions that affect erythrocyte survival are present. severe iron deficiency anemia may yield falsely high results. hemoglobin A1C assay should not BE used to diagnose or monitor diabetes in patients with malignancy, recent blood transfusion, chronic kidney or liver disease. this method may yield falsely low results when hemoglobin (hbf) exceeds 5% in the specimen. the seth alinity assay for the measurement of HbA1C IS A national glycohemoglo bin standardizat ion program (ngsp) certified method. HBA1C INTERP RETATI ON: NORMAL : < 5.7% PRE-DI ABETES : 5.7-6. 4% DIABET ES: EQUAL TO OR GREATE R THAN 6.5% TEST RESULT S DIAGNO STIC OF DIABET ES SHOULD BE REPEAT ED FOR CONFIR MATION . TREATM ENT TARGET VALUES RECOMM ENDED BY ADA AND OTHER CLINIC AL ORGANI ZATION S SHOULD BE USED TO EVALUA TE METABO LIC CONTRO L IN PATIEN TS. THIS TEST SHOULD NOT REPLAC E GLUCOS E TESTIN G FOR PATIEN TS WITH TYPE 1 DIABET ES, PEDIAT ISABEL PATIEN TS, OR PREGNA NT WOMEN. FALSEL Y LOW HBA1C RESULT S MAY BE OBSERV ED IN PATIEN TS WITH CLINIC AL CONDIT IONS THAT SHORTE N ERYTHR OCYTE LIFE SPAN OR DECREA SE MEAN ERYTHR OCYTE AGE SUCH THE PRESEN CE OF UNSTAB LE HEMOGL OBIN VARIAN TS, ELEVAT ED HEMOGL OBIN F LEVEL OR OTHER CAUSES OF HEMOLY TIC ANEMIA . HBA1C MAY NOT ACCURA TELY REFLEC T GLYCEM IC CONTRO L WHEN CLINIC AL CONDIT IONS THAT AFFECT ERYTHR OCYTE SURVIV AL ARE PRESEN T. SEVERE IRON DEFICI ENCY ANEMIA MAY YIELD FALSEL Y HIGH RESULT S. HEMOGL OBIN A1C ASSAY SHOULD NOT BE USED TO DIAGNO SE OR MONITO R DIABET ES IN PATIEN TS WITH MALIGN JANE, RECENT BLOOD TRANSF USION, CHRONI C KIDNEY OR LIVER DISEAS E. THIS METHOD MAY YIELD FALSEL Y LOW RESULT S WHEN HEMOGL OBIN (HBF) EXCEED S 5% IN THE SPECIM EN. THE SETH ALINIT Y ASSAY FOR THE MEASUR EMENT OF HBA1C IS A NATION AL GLYCOH EMOGLO BIN STANDA RDIZAT ION PROGRA M (NGSP) CERTIF IED METHOD . Not Available Not Available 11:10:43 11/11/19 25 11/10/2024 lipid panel , serum cholesterol, total, serum 299 mg/dL high: 200mg/ dL high Not Available Not Available 01/09/2025 11:10:43 11/11/19 25 11/10/2024 lipid panel , serum triglyceride s, serum 244 mg/dL high: 150mg/ dL high Not Available Not Available 01/09/2025 11:10:43 11/11/19 25 11/10/2024 lipid panel , serum HDL cholesterol, serum 40 mg/dL low: 40mg/d L low Not Available Not Available 01/09/2025 11:10:43 11/11/19 25 11/10/2024 lipid panel , serum LDL, calculated, serum (obs) 210 mg/dL high: 130mg/ dL high LDL is calcu lated using the Fried meghna equat ion. Not Available Not Available 01/09/2025 11:10:43 11/11/19 25 11/10/2024 lipid panel , serum cholesterol in VLDL, qn, calculation, serum or plasma (obs) 49 mg/dL high: 30mg/d L high Not Available Not Available 01/09/2025 11:10:43 11/11/19 25 11/10/2024 lipid panel , serum cholesterol/ HDL, ratio, serum 7.5 high: 4.5 high Not Available Not Available 01/09/2025 11:10:43 11/11/19 25 11/10/2024 lipid panel , serum cholesterol LDL/HDL, ratio 5.3 high: 5 high Not Available Not Available 01/09/2025 11:10:43 11/11/1911/10/2024 lipid panel , serum lab interpretati on ABNORM AL Not Available Not Available 11:10:43 11/11/1911/10/2024 CMP, serum or plasm a glucose, qn [mass/volume ], serum or plasma 91 mg/dL low: 70mg/d Lhigh: 99mg/d L Not Available Not Available 01/09/2025 11:10:42 11/11/1911/10/2024 CMP, serum or plasm a sodium, serum or plasma 140 mmol/ L low: 136mmo l/Lhig h: 145mmo l/L Not Available Not Available 01/09/2025 11:10:42 11/11/1911/10/2024 CMP, serum or plasm a potassium, serum or plasma 3.9 mmol/ L low: 3.5mmo l/Lhig h: 5.1mmo l/L Not Available Not Available 01/09/2025 11:10:42 11/11/1911/10/2024 CMP, serum or plasm a chloride, serum or plasma 104 mmol/ L low: 98mmol /Lhigh : 107mmo l/L Not Available Not Available 01/09/2025 11:10:42 11/11/1911/10/2024 CMP, serum or plasm a CO2, (carbon dioxide), total, serum or plasma 23 mmol/ L low: 22mmol /Lhigh : 29mmol /L Not Available Not Available 01/09/2025 11:10:42 11/11/1911/10/2024 CMP, serum or plasm a calcium, serum or plasma 9.3 mg/dL low: 8.4mg/ dLhigh : 10.4mg /dL Not Available Not Available 01/09/2025 11:10:42 11/11/1911/10/2024 CMP, serum or plasm a anion gap, blood (obs) 13 mmol/ L low: 6mmol/ Lhigh: 16mmol /L Not Available Not Available 01/09/2025 11:10:42 11/11/1911/10/2024 CMP, serum or plasm a BUN (blood urea nitrogen), serum or plasma 15 mg/dL low: 5.3mg/ dLhigh : 18.7mg /dL Not Available Not Available 01/09/2025 11:10:42 11/11/1911/10/2024 CMP, serum or plasm a creatinine, serum or plasma 0.6 mg/dL low: 0.57mg /dLhig h: 1.11mg /dL Not Available Not Available 01/09/2025 11:10:42 11/11/1911/10/2024 CMP, serum or plasm a alkaline phosphatase, serum or plasma 89 U/L low: 40U/Lh igh: 150U/L Not Available Not Available 01/09/2025 11:10:42 11/11/1911/10/2024 CMP, serum or plasm a ALT (alanine aminotransfe rase), serum or plasma 18 U/L low: 6U/Lhi gh: 57U/L Not Available Not Available 01/09/2025 11:10:42 11/11/1911/10/2024 CMP, serum or plasm a AST/SGOT (aspartate aminotransfe rase), serum or plasma 26 U/L low: 10U/Lh igh: 48U/L Not Available Not Available 01/09/2025 11:10:42 11/11/1911/10/2024 CMP, serum or plasm a protein, total, serum 7.7 text: 6.4 - 8.3 gm/dL Not Available Not Available 01/09/2025 11:10:42 11/11/1911/10/2024 CMP, serum or plasm a albumin, serum or plasma 4 text: 3.1 - 4.5 gm/dL Not Available Not Available 01/09/2025 11:10:42 11/11/1911/10/2024 CMP, serum or plasm a bilirubin, total, serum or plasma 0.4 mg/dL low: 0.2mg/ dLhigh : 1.2mg/ dL Not Available Not Available 01/09/2025 11:10:42 11/11/1911/10/2024 CMP, serum or plasm a glomerular filtration rate/1.73 sq M predicted, qn, creatinine based formula (CKD-epi 2020), serum or plasma or blood text: >=90 mL/min /1.73 m2 Estim ated Glome rular Filtr ation Rate (eGFR ) calcu lated using the CKD-E PI Creat inine Equat ion (2020 ), per the [facility] and Ameri can [employer] ty of Nephr ology recom menda tions . Not Available Not Available 01/09/2025 11:10:42 11/11/19 25 11/10/2024 CMP, serum or plasm a lab interpretati on NORMAL Not Available Not Available 12/20 11:10:42 02/04/2002/03/2025 HbA1c (hemo globi n A1c), blood HbA1C 6.2 % Not Available In-Office Order Internal Use Only DO Not Attach Compendium DO Not Attach Compendium, Do Not Delete/merge, [id number] 02/03/2025 11:37:39 02/04/2002/03/2025 gluco se, finge rstic k, blood Blood Glucose: mg/dl 114 Not Available In-Off ice Order Internal Use Only DO Not Attach Compendium DO Not Attach Compendium, Do Not Delete/merge, [id number] 02/03/2025 11:37:43 02/19/2002/17/2025 US, liver No observ ation record ed. [facility] Scheduling [address] [place], [id number], 02/18/2025 00:22:35 02/19/2002/17/2025 [place], elast ogram No observ ation record ed. [facility] Central Scheduling [address] [place], [address], 02/18/2025 00:23:34 Result Notes None recorded. Problems Name Problem SNOMED Code Status Onset Date Resolution Date Notes Provider Name and Address Organization Details Recorded Time Impaired glucose toleranc e 5817278 Completed 10/17/2016 MCKAY Hidalgo null, [place] - [facility] 7 16:17:03 Acute pharyngi tis 900326271 Completed 06/08/2015 Suzie Arevalo RN [place] [facility] 6 12:45:07 Morbid obesity 314417857 Completed 02/04/2019 Suzie Areval[place] [facility] 9 11:06:43 Allergic rhinitis 21983241 Completed 03/05/2018 CHU Hancock-BRENNEN Attn: Nadege aponte,[address] [place], [address] - [facility] 8 13:06:06 Venous varices 560100117 Active Suzie Arevalo RN [place] [facility] 2 12:49:21 Hyperlip idemia 19924245 Completed 03/05/2018 Suzie [place]val[place] [facility] 8 11:58:13 Backache 614711021 Completed 03/05/2018 Suzie [place]val[place] [facility] 8 11:57:58 Chronic dermatit is 38050995 Active Suzie Areval[place] [facility] 2 12:48:32 Asteatos is cutis 81622544 Completed 02/04/2019 Suzie [place]val[place] [facility] 9 11:06:49 Rhinitis 86148994 Completed 01/02/2017 Suzie [place]val[place] [facility] 7 13:22:54 Type 2 diabetes mellitus 11658626 Completed 201602/04/2019 Suzie [place]val[place] [facility] 9 11:06:32 Dyslipid emia 564537689 Completed 201602/04/2019 Suzie [place]val[place] [facility] 9 11:06:24 Multiple environm ental allergie s Active 2017 Suzie [place]val[place] [facility] 2 12:48:51 Hypergly cemia 97589475 Completed 201707/02/2018 Deon [place] [facility] 9 11:03:02 Psoriasi s of scalp 450881973 Completed 201702/04/2019 Suzie [place] [facility] 9 11:06:18 Uncontro lled type 2 diabetes mellitus 275688994 Completed 201701/13/2025 Removal Reason: resolved after pregnanc y CHU Hancock-BRENNEN Attn: Accountin g,[address] [facility], [place], [address], [place] [facility] 5 16:31:45 Mixed hyperlip idemia 765735977 Active 2018 LAURA Hancock Attn: Accountin g,[address] [facility], [place], [address], [place] [facility] 5 16:47:26 Body mass index 40+ - severely obese 365820031 Completed 201811/01/2021 Removal Reason: better CHU Hancock-BRENNEN Attn: Accountin g,[address] [facility], [place], [address], [place] [facility] 3 13:06:10 Generali zed anxiety disorder 41047565 Active 2019 LAURA Hancock Attn: Accountin g,[address] [facility], [place], [address], [place] [facility] 2 11:21:19 Vitamin D deficien cy 08837459 Active 2021 CHU Hancock-BRENNEN Attn: Accountin g,[address] [facility], [place], [address], [place] [facility] 2 11:21:19 Body mass index 40+ - severely obese 538431982 Completed 202105/06/2022 [facility] Att[facility]: Accountin g,[address] [place], [address], [place] [facility] 3 13:06:10 Hyperpig mentatio n of skin 35096151 Active 2021 Chuck Craig [facility] Attn: Accountin g,[address] [place], [address], [place] [facility] 3 13:05:54 Allergy to fish 670649580 Active 2021 Chuck Craig [facility] Attn: Accountin g,[address] [place], [address], [place] [facility] 3 13:05:54 Body mass index 30+ - obesity 538599828 Active 2021 [facility] Attn: Accountin g,[address] [place], [address], [place] [facility] 5 16:43:03 Multiple skin tags on neck 524453378 Completed 202205/06/2022 Suzie [place]val[place] [facility] 3 12:10:07 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 812509139 Active 2022 [facility] Attn: Accountin g,[address] [place], [address], [place] [facility] 3 13:05:54 Obesity 641368544 Active 2022 [facility] Attn: Accountin g,[address] [place], [address], [place] [facility] 3 12:14:20 Excess pannicul us of abdomen 70512934683 01 Active 2022 Chuck Craig [facility] Attn: Accountin g,[address] [facility], [place], [address], [place] [facility] 3 12:14:13 Erythema dyschrom icum perstans 35646224 Active 2022 LAURA Hancock Attn: Accountin g,[address] [facility], [place], [address], [place] [facility] 4 15:11:19 Steatoti c liver disease 328851158 Active 2022 [facility] Attn: Accountin g,[address] [facility], [place], [address], [place] [facility] 4 15:11:19 Abnormal liver function 52743382 Completed 202309/03/2023 Removal Reason: resolved for now LAURA Hancock Attn: Accountin g,[address] [facility], [place], [address], [place] [facility] 4 13:04:06 Inguinal lymphade nopathy 423279312 Active 2023 LAURA Hancock Attn: Accountin g,[address] [facility], [place], [address], [place] [facility] 4 15:11:19 Cholelit hiasis without obstruct ion 62148188 Active 2023 WELLINGTON Hancock Attn: Accountin g,[address] [facility], [place], [address], [place] [facility] 4 15:11:19 Cystic acne 93026213 Active 2023 WELLINGTON HancockBC Attn: Accountin g,[address] [facility], [place], [address], [place] [facility] 4 15:11:19 Right upper quadrant pain 721667060 Completed 202301/13/2025 Removal Reason: resolved LAURA Hancock Attn: Accountin g,[address] [facility], [place], [address], [facility] 5 16:32:04 Anxiety 56488529 Active 2023 Chuck Craig [facility] Attn: Nadege aponte,[address] [facility], [place], [address], [facility] 4 13:13:00 Weight manageme nt program Active 2024 Chuck Craig [facility] Attn: Nadege aponte,[address] [facility], [place], [address], [facility] - SI 5 16:44:46 Problem Notes None recorded. Procedures Surgical History Date Name Laterality Status Provider Name and Address Organization Details Recorded Time 12/16/19 25 Date of Last Pap Smear completed Suzie Arevalo RN [facility] 01/13/2025 14:57:07 05/02/19 23 Skin Tag Removal [facility] Attn: Accounting,[address] [facility], [place], [address], [facility] 05/02/2022 16:42:03 04/20/19 15 Tonsillectomy completed Suzie Arevalo RN [facility] 04/06/2015 11:08:40 Imaging Results None recorded. Procedure Notes None recorded. Medical Equipment None Reported. Allergies Allergen ID Allergen Name Allergen Category Reaction Reaction Severity Criticality Documentation Date Start Date Code Code System Note Provider Name and Address Organization Details Recorded Time 325864 lisinopri l medicatio n flushing moderate Not available 09/16/20192019 00084 RxNorm Chuck Craig [facility] Attn: Nadege aponte,[address] [facility], [place], [address], [facility] 0 12:40:39 Medications Name Sig Start Date Stop Date Status Note LastModified by Organization Details LastModified Time FreeStyle Herrera 2 Sensor 09/06 completed Not Available Not Available Not Available cyclobenz aprine 10 mg tablet Take 1 tablet twice a day by oral route. 07/02 completed Not Available Not Available Not Available amoxicill in 500 mg capsule TAKE 1 CAPSULE BY MOUTH EVERY 8 HOURS DIRECTED FOR 5 DAYS 01/13 completed Not Available Not Available Not [...] TWICE DAILY WITH MORNING AND EVENING MEAL. 01/13 completed Not Available Not Available Not [...] BY MOUTH ONCE DAILY FOR CHOLESTE ROL 01/13 completed Not Available Not Available Not Available labetalol 200 mg tablet TAKE 1 TABLET BY MOUTH TWICE DAILY 01/13 completed Not Available Not Available Not Available cetirizin e 10 mg tablet TAKE 1 TABLET BY MOUTH ONCE DAILY 01/13 completed Not Available Not Available Not Available ibuprofen 800 mg tablet Take 1 [...] TABLET IF SYMPTOMS PERSIST AFTER 72 HOURS) 01/13 completed Not Available Not Available Not [...] 1 TABLET BY MOUTH TWICE DAILY NEEDED 01/13 completed Not Available Not Available Not Available spironola ctone 100 mg tablet Take 1 tablet twice a day by oral route. 2024 active Not Available Not Available Not Avai lable terconazo le 0.8 % vaginal cream 02/04 [...] (ONE-CLARITA F) TABLET BY MOUTH ONCE DAILY 02/03 completed Not Available Not Available Not Available acetamino phen 300 mg-codein e 30 [...] every day by oral route, for [facility]. 01/13 completed Not Available Not Available Not [...] TAKE 1 TABLET BY MOUTH TWICE DAILY 01/13 completed Not Available Not Available Not Available magnesium oxide 400 mg (241.3 mg magnesium ) tablet TAKE 1 TABLET BY MOUTH ONCE DAILY 02/03 completed Not Available Not Available Not Available [...] TAKE 1 CAPSULE BY MOUTH TWICE DAILY 01/13 completed Not Available Not Available Not Available oseltamiv ir 75 mg capsule TAKE ONE CAPSULE BY MOUTH TWICE DAILY FOR 5 DAYS 05/02 completed Not Available Not Available Not Available metformin 1,000 mg tablet TAKE 2 TABLETS BY MOUTH ONCE DAILY 01/13 completed Not Available Not Available Not [...] BY MOUTH ONCE DAILY FOR ALLERGIE S 01/13 completed Not Available Not Available Not Available hydroxyzi ne HCl 25 mg tablet TAKE 1 TABLET BY MOUTH THREE TIMES DAILY 01/13 completed Not Available Not Available Not [...] Available nystatin 100,000 unit/gram topical powder APPLY TO THE AFFECTED AREA(S) BY TOPICAL ROUTE 2 TIMES PER DAY 2024 active Not Available Not Available Not Avai lable epinephri ne 0.3 mg/0.3 mL injection , auto-inje ctor use as directed 09/23 completed Not Available Not Available Not Available ibuprofen 600 mg tablet TAKE 1 TABLET BY MOUTH EVERY 6 HOURS NEEDED FOR PAIN active Not Available Not Available No t Available albuterol sulfate HFA 90 mcg/actua tion aerosol inhaler INHALE 2 PUFFS BY MOUTH EVERY 4 HOURS 01/13 completed Not Available Not Available Not Available norethind fantasma (contrace ptive) 0.35 mg tablet TAKE 1 TABLET BY MOUTH ONCE DAILY active Not Available Not Available No t Available ketoconaz ole 2 % topical cream 08/02 completed Not Available Not Available Not Available nifedipin e ER 60 mg tablet,ex tended release TAKE 1 TABLET BY MOUTH ONCE DAILY 01/13 completed Not Available Not Available Not [...] 1 SPRAY(S) IN EACH NOSTRIL ONCE DAILY 01/13 completed Not Available Not Available Not [...] PREGNANC Y. MAX DAILY DOSE 100 UNITS 01/13 completed Not Available Not Available Not Available escitalop donavan 10 mg tablet Take 1 tablet every day by oral route. 10/13 completed Not Available Not Available Not Available escitalop donavan 20 mg tablet TAKE 1 TABLET BY MOUTH ONCE DAILY 01/13 completed Not Available Not Available Not Available Novolog FlexPen U-100 Insulin aspart 100 unit/mL (3 mL) subcutane ous INJECT 4 UNITS SUBCUTAN EOUSLY WITH MEALS CONTAINI NG CARBOHYD RATES. INCREASE DOSE DIRECTED . MAX TOTAL DAILY DOSE 20 UNITS. 01/13 completed Not Available Not Available Not Available metformin ER 1,000 mg tablet,ex tended release 24hr (osmotic) Take 2 tablets every day by oral route. 07/25 completed Not Available Not Available Not Available nitrofura ntoin monohydra te/macroc rystals 100 mg capsule TAKE 1 CAPSULE BY MOUTH EVERY 12 HOURS FOR 7 DAYS 01/13 completed Not Available Not Available Not Available FeroSul 325 mg (65 mg iron) tablet TAKE 1 TABLET BY MOUTH ONCE DAILY 01/13 completed Not Available Not Available Not Available Lantus Solostar U-100 Insulin 100 unit/mL (3 mL) subcutane ous pen INJECT 24 UNITS SUBCUTAN EOUSLY IN THE MORNING AND 24 AT BEDTIME (TAKE DOSAGES APPROXIM ATELY 12 HOURS APART. INCREASE DOSE DIRECTED DUE TO INCREASI NG INSULIN REQUIREM ENTS DURING PREGNANC Y. MAX TOTAL DAILY DOSE 50 UNITS) 01/13 completed Not Available Not Available Not [...] DAILY ,FASTING AND 1 HOUR AFTER MEALS active Not Available Not Available No t Available icosapent ethyl 1 gram capsule TAKE 2 CAPSULES BY MOUTH TWICE DAILY 01/13 completed Not Available Not Available Not Available Contrave 8 mg-90 mg tablet,ex tended release Take 2 tablets twice a day by oral route. 11/27 completed Not Available Not Available Not Available Trulicity 0.75 mg/0.5 mL subcutane ous pen injector Inject by subcutan eous route for 28 days. 03/09 completed Not Available Not Available Not Available OneTouch Verio Flex Meter USE DIRECTED active Not Available Not Available No t Available TRUEplus Pen Needle 32 gauge x 5/32 USE 1 FIVE TIMES DAILY 01/13 completed Not Available Not Available Not [...] BY MOUTH ONCE DAILY FOR 30 DOSES 01/13 completed Not Available Not Available Not Available OneTouch Delica Plus Lancet 33 gauge USE 1 TO CHECK GLUCOSE 4 TIMES DAILY FASTING AND 1 HOUR AFTER MEALS active Not Available Not Available No t Available Baqsimi 3 mg/actuat ion nasal spray USE 1 SPRAY(S) INTO NOSTRIL NEEDED active Not Available Not Available No t Available Rybelsus 7 mg tablet Take by oral route for 30 days. 08/08 completed Not Available Not Available Not Available Rybelsus 3 mg tablet 08/27 completed [facility] prior auth form Not Available Not Available Not Available FreeStyle Herrera 2 [place] 09/06 completed Not Available Not Available Not Available Trulicity 3 mg/0.5 mL subcutane ous pen injector INJECT 1 SYRINGE SUBCUTAN EOUSLY ONCE A WEEK 04/23 completed Not Available Not Available Not Available Ozempic 1 mg/dose (4 mg/3 mL) subcutane ous pen injector 08/08 completed [facility] prior auth form Not Available Not Available Not Available Semglee (insulin glargine- yfgn) Pen 100 unit/mL (3 mL) subcutane ous INJECT 16 UNITS IN THE MORNING AND BEDTIME. TAKE DOSES APPROXIM ATELY 12 HOURS APART. INCREASE DOSE DIRECTED DUE TO INCREASI NG INSULIN REQUIREM ENTS DURING PREGNANC Y. MAX DAILY DOSE 50 UNITS 01/13 completed Not Available Not Available Not [...] 1 SYRINGE SUBCUTAN EOUSLY ONCE A WEEK 01/13 completed Not Available Not Available Not Available Mounjaro 2.5 mg/0.5 mL subcutane ous pen injector INJECT 1 PEN SUBCUTAN EOUSLY ONCE A WEEK THEN INCREASE TO 5MG active Not Available Not Available No t Available Dexcom G7 Sensor device USE CONTINUO USLY FOR 10 DAYS 02/03 completed Not Available Not Available Not Available Vitals Date Recorded Body height Body mass index (BMI) Body weight Heart rate Body temperature Systolic And Diastolic Provider Name and Address Organization Details Last Updated DateTime 4 160.02 cm 35.1 kg/m2 08776.2 9 g 74 /min 97.6 [degF] 101/69 mm[Hg] Suzie Arvealo RN [place] - [facility] 4 12:36:24 Date Recorded Body height Body mass index (BMI) Body weight Oxygen saturation Oxygen saturation in Arterial blood by Pulse oximetry Heart rate Body temperature Systolic And Diastolic Provider Name and Address Organization Details Last Updated DateTime 5 160.02 cm 39 kg/m2 55073.3 2 g 99 % 99 % 80 /min 98.1 [degF] 117/84 mm[Hg] Suzie Arevalo RN [facility] 5 15:02:41 Date Recorded Body height Body mass index (BMI) Body weight Oxygen saturation Oxygen saturation in Arterial blood by Pulse oximetry Heart rate Body temperature Systolic And Diastolic Provider Name and Address Organization Details Last Updated DateTime 160.02 cm 38.1 kg/m2 65486.3 6 g 100 % 100 % 84 /min 97.6 [degF] 115/79 mm[Hg] Suzie Arevalo RN [facility] 5 11:57:58 Date Recorded Body height Body mass index (BMI) Body weight Provider Name and Address Organization Details Last Updated DateTime 02/05/2024 160.02 cm 34.7 kg/m2 69285.1 g Suzie Arevalo RN [facility] 02/05/2024 12:46:27 Date Recorded Body height Provider Name an d Address Organization Details Last Updated DateTime 02/16/2025 160.02 cm Trevin blas MA [facility] 02/16/2025 10:12:45 Social History Question Answer Notes LastModified by Organizat ion Details LastModified Time Tobacco Smoking Status Never Smoker Suzie Arevalo RN null, [facility] 04/06/2015 11:08:40 Do You Have An Advance Directive? No Information not available 11/30/2020 Are You Blind [...] Illicit Or Recreational Drugs Have You Used? James [email or web address] Information not available 10/29/2016 Education 2 Year [...] Date Of Your Most Recent Tobacco Screening? 02/03/2025 Information not available 02/03/2025 How Many Children Do You Have? 1 Information not available 11/30/2020 Performs Monthly Self-breast [...] available 02/04/2019 Are you currently employed? Yes Information not available 11/30/2020 Are you able to care for yourself independently? Yes Information not available 08/31/2020 What is [...] anxious, or unable to sleep at night)? [id number] Information not available 02/06/2022 Family History Relationship [...] Pap N Flow Moderate Date of LMP 01/14/2025 STIs/STDs N Duration of Flow (days) 6 Age at Menarche 10 Current Control Method BCPs Age at First Child 29 Frequency of Cycle (Q days) 28 Sexually Active? Y Menses Monthly Y Date of Last Pap Smear 12/15/2024 Sexual Problems? N LMP Definite Obstetrics History GPAL:G 2 P 2 0 0 2 Type Value Full Term 2 Living 2 Total 2 Immunizations Vaccine Type Date Status Note Provider [...] Influenza, split virus, quadrivalent, PF 3 completed BRIGIDO [place], [place] [facility] 03/09/2023 12:34:55 Influenza, split virus, trivalent, preservative 4 completed Suzie [place]val[place] [facility] 03/04/2024 10:30:05 Tdap 5 completed Suzie [place] [facility] 08/05/2024 10:08:22 Influenza, split virus, quadrivalent, PF 0 completed Not Available [facility] 02/03/2025 11:27:25 Tdap 0 completed Not Available [facility] 02/03/2025 11:27:25 MMR 5 completed Not Available [facility] 02/03/2025 11:27:25 Influenza, split virus, trivalent, PF 5 completed Suzie Arevalo RN null, [place] - [facility] 01/31/2025 12:15:01 pneumococcal polysaccharide PPV23 9 completed Not Available [facility] 05/07/2019 02:41:28 Influenza, split virus, quadrivalent, PF 9 completed Not Available [facility] 05/07/2019 02:39:21 Influenza, split virus, quadrivalent, PF 5 completed Suzie Arevalo RN null, [place] - [facility] 04/06/2015 11:08:40 Tdap 5 completed Yasmeen Ny null, [place] [facility] 06/08/2015 11:20:28 Influenza, split virus, quadrivalent, preservative 6 completed Suzie Arevalo RN [place], [place] [facility] 02/08/2016 13:10:18 HPV9 3 completed LAURA Hancock Attn: Accounting,[address] [place], [address], [facility] - [facility] 03/09/2023 16:14:18 HPV9 4 completed Suzie Arevalo RN [place], [place] [facility] 04/21/2023 15:54:10 HPV9 4 completed LAURA Hancock Attn: Accounting,[address] [place], [address], [facility] - [facility] 09/03/2023 17:55:54 Influenza, split virus, quadrivalent, preservative 7 completed Suzie Arevalo RN null, [place] [facility] 01/02/2017 13:24:13 Past Encounters Encounter ID Performer Location Encounter Start Date Encounter Closed Date Diagnosis/Indication Diagnosis SNOMED-CT Code Diagnosis ICD10 Code Diagnosis IMO Codes Diagnosis Note [id number] Chuck Craig [facility] [address], [place] [address] 04/06/2015 10:47:18 04/10/2015 12:01:25 Acute pharyngitis 672977411 J02.9 [id number] [facility] [address], [place] [address] 06/08/2015 11:16:42 06/12/2015 13:29:41 Adult health examination 726331134 Z00.00 Morbid obesity 709963812 E66.01 Allergic rhinitis 621065 04 J30.9 Venous varices 181170215 I83.92 [id number] [place] [address] [address] 06/11/2015 10:14:51 06/12/2015 13:43:16 Morbid obesity 499705351 E66.01 [id number] [facility] [address], [place] [address] 08/03/2015 10:08:39 08/06/2015 17:57:10 Morbid obesity 524531088 E66.01 13# weight loss in 2 months Diet, weight loss and exercise Monitor for adverse side effects Hyperlipidemia 76810766 E78.5 Discussed test results Increase exercise to 50-60 minutes daily 5-6 times per week [id number] [facility] [address], [place] [address] 10/08/2015 12:43:54 10/16/2015 13:10:23 Morbid obesity 840822374 E66.01 7# weight gain in 2 months Diet, weight loss and exercise Monitor for adverse side effects Backache 515587504 M54.9 Hyperlipidemia 98329826 E78.5 Discussed test results Increase exercise to 50-60 minutes daily 5-6 times per week [id number] Salas Velasquez MD [facility] [address], [place] [address] 11/28/2015 12:37:02 12/10/2015 11:50:21 Morbid obesity 058030356 E66.01 will give Rx for 1 more month if no weight loss will stop Diet, weight loss and exercise Monitor for adverse side effects Chronic dermatitis 22924 007 L30.9 Asteatosis cutis 2236467 0 L85.3 Backache 148797837 M54.9 [id number] [facility] [address] [address] 02/08/2016 12:33:25 02/18/2016 13:08:13 Morbid obesity 725759928 E66.01 will give Rx for 1 more month if no weight loss will stop Diet, weight loss and exercise Monitor for adverse side effects Chronic dermatitis 41945 007 L30.9 keep appointmen t with Derm Hyperlipidemia 01661179 E78.5 Increase exercise to 50-60 minutes daily 5-6 times per week Asteatosis cutis 2639371 0 L85.3 Cetaphil products Backache 573709643 M54.9 get xrays done DAIN/stret lisandra/exer cise/weigh t loss Rhinitis 63036897 J00 use Zyrtec daily [id number] [facility] [address] [place], [place] [address] 02/11/2016 12:20:28 02/18/2016 13:29:38 Hyperlipidemia 96504891 E78.5 Increase exercise to 50-60 minutes daily 5-6 times per week [id number] [facility] [address], [place] [address] 02/20/2016 16:54:19 02/29/2016 12:13:11 Eruption 706040755 R21 OTC ZYRTEC 10mg once daily allergen panel + food mix (seafoods) , environmen sven allergens, perennial grass Multiple environmental allergies 894645951 T78.49XD Allergy to seafood 87727 001 Z91.936 [id number] [facility] [address] [address] 03/12/2016 11:55:30 03/19/2016 11:09:10 Morbid obesity 614491763 E66.01 6 pound weight loss since a month ago Diet, weight loss and exercise Monitor for adverse side effects Asteatosis cutis 6986296 0 L85.3 Cetaphil products Eruption 431389521 R21 OTC ZYRTEC 10mg once daily allergen panel + food mix (seafoods) , environmen sven allergens, perennial grass Prediabetes 464961025 R7 3.03 Hyperlipidemia 28262697 E78.5 Increase exercise to 50-60 minutes daily 5-6 times per week [id number] Salas Velasquez MD [facility] [address], [place] [address] 04/09/2016 12:13:53 04/16/2016 17:41:34 Morbid obesity 294982520 E66.01 6 pound 1/4 ounce weight loss since a month ago Diet, weight loss and exercise Monitor for adverse side effects As its the Holidays and patient is not having any side effects will give Rx this month--the n 3 months off Prediabetes 068250478 R7 3.03 [id number] Salas Velasquez MD [facility] [address], [place] [address] 04/18/2016 10:31:37 04/24/2016 10:54:52 Acute vaginitis 60496195 N76.0 Increase Doxyciclin e 100mg once daily to twice daily for the next seven days to cover UTI then return to once daily dosing Dysuria 72042254 R30.0 Prediabetes 744452115 R7 3.03 [id number] Salas Velasquez MD [facility] [address], [place] [address] 06/09/2016 10:56:27 06/17/2016 10:08:56 Acute conjunctivitis 24791047 H10.31 [id number] Salas eVlasquez MD [facility] [address], [place] [address] 06/30/2016 12:01:19 07/02/2016 17:53:15 Chronic dermatitis 76868410 L30.9 Seen by derm 02/2016 given about same treatment she had received from this office. SHe wishes to continue treatment. Requesting refills. Asteatosis cutis 9580899 0 L85.3 Cetaphil products Morbid obesity 078405073 E66.01 No weight loss since last visit Diet, weight loss and exercise Backache 078576432 M54.9 Xray shows DJD/stretc gus/exerc ise/weight loss Pain in right knee 48297 67535 38407 M25.561 will send for PT Psoriasis of scalp 51821 8008 L40.9 [id number] Chuck Craig, [facility] [address] [place] [address] 08/20/2016 12:05:58 08/27/2016 17:50:49 Morbid obesity 873912584 E66.01 11 pound weight loss since last visit Diet, weight loss and exercise Hyperlipidemia 95700142 E78.5 Increase exercise to 50-60 minutes daily 5-6 times per week Chronic dermatitis 50464 007 L30.9 Seen by derm 02/2016 given about same treatment she had received from this office. SHe wishes to continue treatment. Requesting refills. Impaired g lucose tolerance 0386210 R73.03 Prediabetes 095470746 R7 3.03 Blood pres sure above reference range 07185401 R03.0 monitor blood pressure Have RN check b/p in 1 month avoid salt weight loss encouraged Allergic rhinitis 842355 04 J30.1 zyrtec samples Pain in right knee 68131 00918 23387 M25.561 Patient to continue PT exercises at home Patient continues to have symptoms despite NSAIDS/PT for 3 1/2 months--kn ee xray essentiall y normal showed minor swelling Take Meloxicam daily for the next couple of months for knee inflammati on [id number] Salas Velasquez MD [facility] [address] [place] [address] 10/17/2016 15:58:37 10/21/2016 16:47:09 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 surgical referral Lipoma of upper arm 1889 34760 D17.21 D17.22 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 33854589 I83.10 weight loss elevation of legs support hose referral to surgeon for sclerother apy prn [id number] Eliseo Vigil MD [facility] [address] [place] [address] 10/29/2016 10:37:36 11/04/2016 13:11:34 Lipoma of skin and subcutaneous tissue (excluding face) 267553832 D17.30 [id number] Chuck Craig, [facility] [address] [place] [address] 01/02/2017 12:13:06 01/10/2017 22:13:03 Morbid obesity 462094286 E66.01 5bpound weight gain since last visit Diet, weight loss and exercise Hyperlipidemia 04008018 E78.5 Increase exercise to 50-60 minutes daily 5-6 times per week [facility] 3 FA Chronic dermatitis 53291 007 L30.9 Seen by derm 02/2016 given about same treatment she had received from this office. SHe wishes to continue treatment. Requesting refills. Prediabetes 528919736 R7 3.03 will repeat labs at next visit Allergic rhinitis 197545 04 J30.1 Cystic acne 14871703 L70 .0 drink a lot of water with this medication and daily banana Edema of l ower extremity 060311976 R60.0 recommend compressio n hose [id number] Salas Velasquez MD [facility] [address] [place] [address] 03/05/2018 11:48:06 03/16/2018 13:07:08 Adult health examination 446798681 Z00.00 Upper resp iratory infection 76943299 J06.9 Venous varices 054645467 I83.92 Morbid obesity 248878941 E66.01 6# weight loss since last visit Diet, weight loss and exercise Chronic dermatitis 03183 007 L30.9 Seen by derm 02/2016 given about same treatment she had received from this office. SHe wishes to continue treatment. Requesting refills. Dyslipidemia 465960862 E 78.5 Psoriasis of scalp 94534 8008 L40.9 Hyperglycemia 82422422 R 73.9 accu check random 240 fasting Acute fron sven sinusitis 57641929 J01.10 Multiple environmental allergies 982720141 T78.49XD Chronic back pain 312487 002 G89.29 Headache 03402328 R51 suspect migraines Uncontroll ed type 2 diabetes mellitus 609278852 E11.65 [id number] Salas Velasquez MD [facility] [address], [place] [address] 07/02/2018 10:45:47 07/02/2018 17:36:52 Uncontrolled type 2 diabetes mellitus 315763101 E11.65 Acute fron sven sinusitis 74799527 J01.10 Multiple environmental allergies 849791342 T78.49XD continue otc Psoriasis of scalp 42640 8008 L40.9 Chronic dermatitis 51584 007 L30.9 Seen by derm 02/2016 given about same treatment she had received from this office. SHe wishes to continue treatment. Requesting refills. Prehypertension 86882120 9 R03.0 reduce salt in your diet 50-60 minutes of aerobic physical activity 5-6 time per week lose weight 5-20% of current body weight if B/P remains elevated will start B/P meds Body mass index 40+ - severely obese 647504348 Z68.41 bmi 42 Mixed hyperlipidemia 267 686653 E78.2 Avoid all breads, potatoes, cereal, pasta, rice, margarine, refined sugars, milk yogurt, ice cream, juices, soda (including diet), beer, and manmade or manufactur ed desserts. Enjoy steak, fish, chicken (no skin), pork, butter, vegetables , beans, nuts, whole eggs, cheese (low fat or skim), cream in your coffee. Depression screening 171 075949 Z13.31 negative [id number] Salas Velasquez MD [facility] [address], [place] [address] 01/13/2019 12:45:24 01/13/2019 18:11:52 Acute frontal sinusitis 63874980 J01.10 Cough 24776768 R05 Multiple environmental allergies 301433669 T78.49XD get otc antihistam ine and start [id number] Salas Velasquez MD [facility] [address], [place] [address] 02/04/2019 10:55:51 02/04/2019 17:01:53 Uncontrolled type 2 diabetes mellitus 194465511 E11.65 uncontroll edfasting 681SZ2R 9.6will continue Metformin bid started at [facility] Mixed hyperlipidemia 267 020091 E78.2 Avoid all breads, potatoes, cereal, pasta, rice, margarine, refined sugars, milk yogurt, ice cream, juices, soda (including diet), beer, and manmade or manufactur ed desserts. Enjoy steak, fish, chicken (no skin), pork, butter, vegetables , beans, nuts, whole eggs, cheese (low fat or skim), cream in your coffee. Multiple environmental allergies 753405312 T78.49XD continue otc Chronic dermatitis 51519 007 L30.9 Seen by derm 02/2016 given about same treatment she had received from this office. SHe wishes to continue treatment. Requesting refills. Prehypertension 28522213 9 R03.0 reduce salt in your diet 50-60 minutes of aerobic physical activity 5-6 time per week lose weight 5-20% of current body weight will start Lisinopril 2.5mg for kidney protection today Body mass index 30+ - obesity 839482065 Z68.39 BMI 39Healthy body weight 105-135 Administra tion of influenza vaccine 36472731 Z23 [id number] Salas Velasquez MD [place] [address] [address] [address] 08/17/2019 11:30:26 08/18/2019 11:27:38 Uncontrolled type 2 diabetes mellitus 435467883 E11.65 uncontroll edshe forgets to take evening ovkgKX2W 8.3will change Metformin 1000mg bid to Metformin ER 1000mg (2) Mixed hyperlipidemia 267 570159 E78.2 Avoid all breads, potatoes, cereal, pasta, rice, margarine, refined sugars, milk yogurt, ice cream, juices, soda (including diet), beer, and manmade or manufactur ed desserts. Enjoy steak, fish, chicken (no skin), pork, butter, vegetables , beans, nuts, whole eggs, cheese (low fat or skim), cream in your coffee. Multiple environmental allergies 232146090 T78.49XD continue otc Body mass index 30+ - obesity 065893596 Z68.39 BMI 39Healthy body weight 105-135 Chronic dermatitis 89098 007 L30.9 Seen by derm 02/2016 given about same treatment she had received from this office. SHe wishes to continue treatment. Requesting refills. Prehypertension 66884190 9 R03.0 reduce salt in your diet 50-60 minutes of aerobic physical activity 5-6 time per week lose weight 5-20% of current body weight will start Lisinopril 2.5mg for kidney protection today Headache 36958686 R51 suspect migrainesC T of Head 01/2019 normal Anxiety 48088321 F41.9 psychother apist listauto relaxation exerciseRX for prn use Acute fron sven sinusitis 68637452 J01.10 [id number] Salas Velasquez MD [facility] [address], [place] [address] 09/16/2019 12:28:24 09/19/2019 10:06:07 Generalized anxiety disorder 83352102 F41.1 recommend psychother apist visits-pt will check with her 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 Body mass index 40+ - severely obese 433991396 Z68.41 bmi 42 [id number] Salas Velasquez MD [facility] [address], [place] [address] 10/14/2019 10:34:20 10/17/2019 06:38:07 Generalized anxiety disorder 34402048 F41.1 recommend psychother apist visits-pt will check with her 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pati ent fees better agrees to increasing dose of Escitalopr am 10mg to 20mg roslyn is aware will not refill klonopin for ongoing use Body mass index 40+ - severely obese 394801767 Z68.41 bmi 42 [id number] Salas Velasquez MD [facility] [address], [place] [address] 10/24/2019 12:45:53 10/25/2019 06:47:00 Acute sinusitis 27633434 J01.90 [id number] Salas Velasquez MD [facility] [address], [place] [address] 11/18/2019 14:10:09 11/21/2019 07:27:44 Uncontrolled type 2 diabetes mellitus 832919949 E11.65 uncontroll edshe forgets to take evening doseLast HA1C 8.3will continue Metformin ER 1000mg (2) Prehypertension 54591515 9 R03.0 reduce salt in your diet 50-60 minutes of aerobic physical activity 5-6 time per week lose weight 5-20% of current body weight patient stooped Lisinopril 2.5mg for kidney protection about a month ago-had reaction Mixed hyperlipidemia 267 307150 E78.2 Avoid all breads, potatoes, cereal, pasta, rice, margarine, refined sugars, milk yogurt, ice cream, juices, soda (including diet), beer, and manmade or manufactur ed desserts. Enjoy steak, fish, chicken (no skin), pork, butter, vegetables , beans, nuts, whole eggs, cheese (low fat or skim), cream in your coffee. Multiple environmental allergies 750007509 T78.49XD continue otc Body mass index 30+ - obesity 692827602 Z68.39 BMI 39Healthy body weight 105-135 Chronic dermatitis 86711 007 L30.9 Seen by derm 02/2016 given about same treatment she had received from this office. SHe wishes to continue treatment. Still has at home aware not to use in large quantities Headache 34582679 R51 suspect migrainesC T of Head 01/2019 normal Generalize d anxiety disorder 96064114 F41.1 recommend psychother apist visits-pt will check with her job on thisPatien t stopped both Escitalopr am and Clonazepam two weeks ago when she found out she was 7 [id number] Salas Velasquez MD [facility] [address] [place] [address] 06/06/2020 12:16:58 06/07/2020 14:23:37 Mixed hyperlipidemia 809168046 E78.2 Avoid all breads, potatoes, cereal, pasta, rice, margarine, refined sugars, milk yogurt, ice cream, juices, soda (including diet), beer, and manmade or manufactur ed desserts. Enjoy steak, fish, chicken (no skin), pork, butter, vegetables , beans, nuts, whole eggs, cheese (low fat or skim), cream in your coffee. Body mass index 40+ - severely obese 021182216 Z68.41 bmi 42 Prehypertension 50510983 9 R03.0 reduce salt in your diet 50-60 minutes of aerobic physical activity 5-6 time per week lose weight 5-20% of current body weight Chronic dermatitis 51475 007 L30.9 Seen by derm 02/2016 given about same treatment she had received from this office. SHe wishes to continue treatment. Has refills. Stable at present time. Uncontroll ed type 2 diabetes mellitus 748031662 E11.65 uncontroll edshe forgets to take evening doseLast HA1C 8.3will restart Metformin ER 1000mg (2) [id number] Salas Velasquez MD [facility] [address] [place] [address] 07/06/2020 15:11:23 07/09/2020 14:05:28 Uncontrolled type 2 diabetes mellitus 546376886 E11.65 uncontroll edshe forgets to take evening doseLast HA1C 8.3will restart Metformin ER 1000mg (2) Mixed hyperlipidemia 267 826404 E78.2 Avoid all breads, potatoes, cereal, pasta, rice, margarine, refined sugars, milk yogurt, ice cream, juices, soda (including diet), beer, and manmade or manufactur ed desserts. Enjoy steak, fish, chicken (no skin), pork, butter, vegetables , beans, nuts, whole eggs, cheese (low fat or skim), cream in your coffee. [id number] Salas Velasquez MD [facility] [address] [place] [address] 08/31/2020 16:16:37 09/03/2020 16:30:16 Uncontrolled type 2 diabetes mellitus 841277411 E11.65 uncontroll ed she forgets to take evening dose Last HA1C 6.4 on 07/06/2020 will continue Metformin ER 1000mg (2) will add Tradjenta 5mg daily pt is not BF Mixed hyperlipidemia 267 778044 E78.2 07/06/2020 [id number] Trig 441 HDL 32 LDL 150 Avoid all breads, potatoes, cereal, pasta, rice, margarine, refined sugars, milk yogurt, ice cream, juices, soda (including diet), beer, and manmade or manufactur ed desserts. Enjoy steak, fish, chicken (no skin), pork, butter, vegetables , beans, nuts, whole eggs, cheese (low fat or skim), cream in your coffee. Body mass index 40+ - severely obese 978327196 Z68.41 bmi 42 Prehypertension 05279368 9 R03.0 reduce salt in your diet 50-60 minutes of aerobic physical activity 5-6 time per week lose weight 5-20% of current body weight Chronic dermatitis 58492 007 L30.9 Seen by derm 02/2016 given about same treatment she had received from this office. SHe wishes to continue treatment. Has refills. Stable at present time. 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 [id number] Salas Velasquez MD [facility] [address] [place] [address] 11/30/2020 12:06:22 12/05/2020 06:56:56 Uncontrolled type 2 diabetes mellitus 339739068 E11.65 she forgets to take evening dose Last HA1C 6.4 on 07/06/2020 will continue Metformin ER 1000mg (2)Jardian ce was not coveredPat ient has been using Humulin N NPH 25 units BIDBS are better 110-160 range Mixed hyperlipidemia 267 868702 E78.2 07/06/2020 [id number] Trig 441 HDL 32 LDL 150 Avoid all breads, potatoes, cereal, pasta, rice, margarine, refined sugars, milk yogurt, ice cream, juices, soda (including diet), beer, and manmade or manufactur ed desserts. Enjoy steak, fish, chicken (no skin), pork, butter, vegetables , beans, nuts, whole eggs, cheese (low fat or skim), cream in your coffee. Body mass index 40+ - severely obese 699085533 Z68.41 bmi 42 Prehypertension 86301260 9 R03.0 reduce salt in your diet 50-60 minutes of aerobic physical activity 5-6 time per week lose weight 5-20% of current body weight Chronic dermatitis 47217 007 L30.9 Seen by derm 02/2016 given about same treatment she had received from this office. SHe wishes to continue treatment. Has refills. Stable at present time. Depression screening 171 519457 Z13.31 positive patient on sertraine 50mg daily started per her OB/gynneed s refills of sertraline from this office as she no longer seeing OB Anxiety 13929699 F41.9 psychother chasidy listauto relaxation exerciseRX for prn use Psoriasis of scalp 68764 8008 L40.9 [id number] Salas Velasquez MD [facility] [address] [place] [address] 12/17/2020 12:10:32 12/18/2020 06:02:04 COVID-19 105650138 U07.1 [id number] Salas Velasquez MD [facility] [address] [place] [address] 07/25/2021 16:02:46 07/26/2021 15:40:58 Uncontrolled type 2 diabetes mellitus 385694446 E11.65 HA1C 8.5 [id number] 6.4 on 07/06/2020 will continue Metformin 1000mg 1 po bidwill add Ozempic 0.25mgMoni tor bs readings before and after meals (2Hrs) keep log Mixed hyperlipidemia 267 005515 E78.2 07/06/2020 [id number] Trig 441 HDL 32 LDL 150 Avoid all breads, potatoes, cereal, pasta, rice, margarine, refined sugars, milk yogurt, ice cream, juices, soda (including diet), beer, and manmade or manufactur ed desserts. Enjoy steak, fish, chicken (no skin), pork, butter, vegetables , beans, nuts, whole eggs, cheese (low fat or skim), cream in your coffee. Generalize d anxiety disorder 25374477 F41.1 ANDIE-7 Wihui re-start treatmentE scitalopra m 20mg dailyKlono pin for severe anxiety symptomsre commend psychother chasidy visits-amy l with problems or rthoughts of harming self Multiple environmental allergies 904928647 T78.49XD continue otc antihistam ine Body mass index 40+ - severely obese 836565690 Z68.41 bmi 37.2 Healthy Weight: 5'3= 107-140 lbs Chronic dermatitis 64657 007 L30.9 Seen by derm 02/2016 given about same treatment she had received from this office. SHe wishes to continue treatment. Depression screening 171 327051 Z13.31 negative Hyperpigme ntation of skin 77261392 L81.9 Furuncle of buttock 1243 0003 L02.32 [id number] Salas Velasquez MD [facility] [address] [place] [address] 07/26/2021 10:25:41 08/12/2021 16:22:57 Uncontrolled type 2 diabetes mellitus 447863321 E11.65 HA1C 8.5 fweytAY1V 6.4 on 07/06/2020 will continue Metformin 1000mg 1 po bidwill add Ozempic 0.25mgMoni tor bs readings before and after meals (2Hrs) keep log Mixed hyperlipidemia 267 545453 E78.2 07/06/2020 [id number] Trig 441 HDL 32 LDL 150 Avoid all breads, potatoes, cereal, pasta, rice, margarine, refined sugars, milk yogurt, ice cream, juices, soda (including diet), beer, and manmade or manufactur ed desserts. Enjoy steak, fish, chicken (no skin), pork, butter, vegetables , beans, nuts, whole eggs, cheese (low fat or skim), cream in your coffee. [id number] Salas Velasquez MD [facility] [address] [place] [address] 09/06/2021 12:40:16 09/09/2021 14:59:34 Generalized anxiety disorder 27915293 F41.1 ANDIE-7 --07/20 1 Aaron continue treatmentE scitalopra m 20mg dailyKlono pin for severe anxiety symptomsre commend psychother apist visits-amy l with problems or rthoughts of harming self Mixed hyperlipidemia 267 398471 E78.2 07/06/2020 [id number] Trig 441 HDL 32 LDL 150 07/26/2021 cho 212trig 416HDL 32.8LDL 127Avoid all breads, potatoes, cereal, pasta, rice, margarine, refined sugars, milk yogurt, ice cream, juices, soda (including diet), beer, and manmade or manufactur ed desserts. Enjoy steak, fish, chicken (no skin), pork, butter, vegetables , beans, nuts, whole eggs, cheese (low fat or skim), cream in your coffee.Pat iekajal tried Niacin did not toleratePa tient will try Atorvastat in 20mg daily and LSM [id number] Salas Velasquez MD [facility] [address] [place] [address] 11/01/2021 12:33:34 11/04/2021 11:16:46 Uncontrolled type 2 diabetes mellitus 681027448 E11.65 HA1C 7.HA1C 6.4 on 07/06/2020 will continue Metformin 1000mg 1 po bidwill continue Ozempic 0.25mgMoni tor bs readings before and after meals (2Hrs) keep log Mixed hyperlipidemia 267 456649 E78.2 07/06/2020 [id number] Trig 441 HDL 32 LDL 150 07/26/2021 cho 212trig 416HDL 32.8LDL 127Avoid all breads, potatoes, cereal, pasta, rice, margarine, refined sugars, milk yogurt, ice cream, juices, soda (including diet), beer, and manmade or manufactur ed desserts. Enjoy steak, fish, chicken (no skin), pork, butter, vegetables , beans, nuts, whole eggs, cheese (low fat or skim), cream in your coffee.Pat iekajal tried Niacin did not toleratePa tient will try Atorvastat in 20mg daily and LSM Generalize d anxiety disorder 28447029 F41.1 ANDIE-7 --07/20 1 Aaron continue treatmentE scitalopra m 20mg dailyKlono pin for severe anxiety symptomsre commend psychother apist visits-amy l with problems or thoughts of harming self Multiple environmental allergies 044040143 T78.49XD continue otc antihistam ine Body mass index 40+ - severely obese 302408313 Z68.41 bmi 37.2 Healthy Weight: 5'3= 107-140 lbs Chronic dermatitis 21053 007 L30.9 Seen by derm 02/2016 given about same treatment she had received from this office. SHe wishes to continue treatment. Hyperpigme ntation of skin 05889928 L81.9 continue trilumause daily sunscreen Furuncle of buttock 1243 0003 L02.32 Depression screening 171 125123 Z13.31 negative Cystic acne 30736306 L70 .0 drink a lot of water with this medication and daily banana Fatigue 49589392 R53.83 [id number] Salas Velasquez MD [facility] [address] [place] [address] 02/06/2022 10:29:05 02/10/2022 14:44:03 Mixed hyperlipidemia 266737072 E78.2 07/06/2020 [id number] Trig 441 HDL 32 LDL 150 07/26/2021 [...] LSM Uncontroll ed type 2 diabetes mellitus 359775609 E11.65 HA1C 7.1HA1C 6.4 on 07/06/2020 will continue Metformin 1000mg 1 po bidIncreas e Ozempic 1mg once weeklyMoni tor bs readings before and after meals (2Hrs) keep log Generalize d anxiety disorder 64774467 F41.1 Will continue treatmentE scitalopra m 20mg dailyKlono pin for severe anxiety symptomsre commend psychother apist visits-amy l with problems or thoughts of harming self Multiple environmental allergies 674588570 T78.49XD igE 645 plus multiple specific environmen sven allergensc ontinue otc antihistam ine Body mass index 40+ - severely obese 647718830 Z68.41 bmi 39Healthy Weight: 5'3= 107-140 lbs Chronic dermatitis 72948 007 L30.9 Seen by derm 02/2016 given about same treatment she had received from this office. SHe wishes to continue treatment. Hyperpigme ntation of skin 93130247 L81.9 continue trilumause daily sunscreen Cystic acne 15354280 L70 .0 drink a lot of water with this medication and daily banana Depression screening 171 880816 Z13.31 PHQ2-9 negative Mental hea lth screening 723693557 Z13.39 ANDIE-7 negative Acute sinusitis 10291689 J01.90 Acute pharyngitis 556739 003 J02.9 Allergy to fish 93712905 2 Z91.013 + allergen profile to fishGets rash [id number] Sunil Hearn MD [facility] [address] [place] [address] 02/24/2022 11:58:05 02/25/2022 13:30:52 Acute urinary tract infection 099306073 N39.0 Body mass index 30+ - obesity 308804904 Z68.39 BMI 38Healthy body weight 105-135 Depression screening 171 Z13.31 PHQ2-9 negative Mental hea lth screening 427218563 Z13.39 ANDIE-7 negative [id number] Salas Velasquez MD [facility] [address] [place] [address] 02/27/2022 11:01:08 02/28/2022 11:04:03 Acute pharyngitis 220881518 J02.9 Influenza A virus present 5039421357 08 J09.X2 [id number] Salas Velasquez MD [facility] [address] 4 05/02/2022 15:38:01 05/06/2022 08:27:26 Venous varices 777404070 I83.92 Multiple s kin tags on neck 437450459 L91.8 removed 3 skin tags from neck without complicati ons 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 every 6 hrs as necessary Depression screening 171 642245 Z13.31 PHQ2-9 negative Mental hea lt screening 037848421 Z13.39 ANDIE-7 negative [id number] Salas Velasquez MD [facility] [address] [place] [address] 05/06/2022 12:10:55 05/07/2022 12:58:03 Acute bilateral otitis media 679266133 H66.93 Acute ethm oidal sinusitis 96075499 J01.20 Body mass index 30+ - obesity 497337698 Z68.39 BMI 37Healthy body weight 105-135 Depression screening 171 776630 Z13.31 PHQ2-9 negative Mental hea lt screening 961546740 Z13.39 ANDIE-7 negative [id number] Salas Velasquez MD [facility] [address], [place] [address] 06/06/2022 12:29:56 06/09/2022 09:21:50 Uncontrolled type 2 diabetes mellitus 821888176 E11.65 HA1C 7.3 PhoadZP1R 6.4 on 07/06/2020 will continue Metformin 1000mg 1 po bidIncreas e Ozempic 1mg once weekly to 1.5mg once weeklyMoni tor bs readings before and after meals (2Hrs) keep log Mixed hyperlipidemia 267 452463 E78.2 07/06/2020 [id number] Trig 441 HDL 32 LDL 150 07/26/2021 [...] Atorvastat in 20mg daily and LSM Obesity 818015746 E66.9 BMI 37Healthy body weight 105-135 Body mass index 30+ - obesity 653900923 Z68.39 BMI 37Healthy body weight 105-135 Generalize d anxiety disorder 90281837 F41.1 Will continue treatmentE scitalopra m 20mg dailyKlono pin for severe anxiety symptomsre commend psychother apist visits-amy white with problems or thoughts of harming self Chronic dermatitis 80884 007 L30.9 Seen by derm 02/2016 given about same treatment she had received from this office. SHe wishes to continue treatment. Cystic acne 54937083 L70 .0 drink a lot of water with this medication and daily banana Multiple environmental allergies 288931344 T78.49XD igE 645 plus multiple specific environmen sven allergensc ontinue otc antihistam ine Allergy to fish 98116399 2 Z91.013 + allergen profile to fishGets rash Hyperpigme ntation of skin 20962815 L81.9 continue trilumause daily sunscreen Depression screening 171 324077 Z13.31 PHQ2-9 negative Mental hea [facility] screening 348012879 Z13.39 ANDIE-7 negative Vitamin D deficiency 347 14587 E55.9 Vitamin D 11.3Start Rx Vitamin D2 78787 IU once weekly for 12 weeksonce you complete RX buy otc vitamin D3 1000 IU once daily Candidal intertrigo 2661 00846 B37.2 nystatin Excess morales niculus of abdomen 6920147739 101 E65 Venous varices 393438663 I83.92 weight losselevat e legssuppor t hoseibupro fen prn 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 every 6 hrs as necessary Acute fron sven sinusitis 66123554 J01.10 [id number] Salas Velasquez MD [facility] [address] [place] [address] 06/13/2022 10:30:08 06/19/2022 09:35:48 Mixed hyperlipidemia 673617263 E78.2 07/06/2020 [id number] Trig 441 HDL 32 LDL 150 07/26/2021 [...] try Atorvastat in 20mg daily and LSM [id number] Salas Velasquez MD [facility] [address], [place] [address] 06/20/2022 11:46:01 06/23/2022 15:03:46 Acute urinary tract infection 982369696 N39.0 UA dip + nitrates Burn of skin 593845568 T 30.0 Body mass index 30+ - obesity 233732189 Z68.39 BMI 37.7Health y body weight 105-855 [id number] Salas Velasquez MD [facility] [address], [place] [address] 08/14/2022 12:22:26 08/15/2022 11:44:01 Obesity 679337809 E66.9 BMI 37.4Health y body weight 105-135 Acute conj unctivitis of left eye 5894968787 26012 H10.32 Depression screening 171 450419 Z13.31 PHQ2-9 negative Mental hea lth screening 604859122 Z13.39 ANDIE-7 negative [id number] Salas Velasquez MD [facility] [address] [place] [address] 08/27/2022 11:10:48 08/29/2022 18:13:08 Allergic reaction 953451961 T78.40XA Had popcorn at the moviesNo new detergents , lotions, medicinesN o other family member with rashNo respirator y symptoms Pruritic rash 63051005 L 28.2 Body mass index 30+ - obesity 116195628 Z68.39 BMI 37.4Health y body weight 105-135 Depression screening 171 453635 Z13.31 PHQ2-9 negative Mental hea lth screening 899135382 Z13.39 ANDIE-7 negative 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 seen by dermatolog ist in 2016given TCE1%Doxyc ycline 100mg bid #30 [id number] Salas Velasquez MD [facility] [address] [place] [address] 09/23/2022 11:07:35 09/25/2022 13:21:26 Body mass index 30+ - obesity 530132014 Z68.39 BMI 38.3Health y body weight 105-135 Urinary symptoms 6691553 08 R39.9 Microscopic hematuria 19 1735212 R31.29 Depression screening 171 243021 Z13.31 PHQ2-9 negative Mental hea [facility] screening 352887328 Z13.39 ANDIE-7 negative [id number] Salas Velasquez MD [facility] [address] [place] [address] 10/03/2022 11:55:36 10/07/2022 08:33:38 Mixed hyperlipidemia 817769454 E78.2 07/06/2020 [id number] Trig 441 HDL 32 LDL 150 07/26/2021 [...] LSM Uncontroll ed type 2 diabetes mellitus 251840706 E11.65 HA1C 8.5 csayvDI2K 6.4 on 07/06/2020 will continue Metformin 1000mg 1 po bidcontinu e trulicity but increaseMo nitor bs readings before and after meals (2Hrs) keep log 06/13/2022 BUN 13creat 0.41eGFR 134 Generalize d anxiety disorder 83079659 F41.1 Will continue treatmentE scitalopra m 20mg dailyKlono pin for severe anxiety symptomsre commend psychother apist visits-amy l with problems or thoughts of harming self Obesity 035980749 E66.9 BMI 38.3Health y body weight 105-135 Body mass index 30+ - obesity 387765305 Z68.39 BMI 38.3Health y body weight 105-135 Chronic dermatitis 05714 007 L30.9 Seen by derm 02/2016 given about same treatment she had received from this office. SHe wishes to continue treatment. 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 every 6 hrs as necessary Venous varices 036855354 I83.92 weight losselevat e legssuppor t hoseibupro fen prn Depression screening 171 846207 Z13.31 PHQ2-9 negative Mental hea lt screening 464214359 Z13.39 ANDIE-7 negative [id number] Salas Velasquez MD [facility] [address] [place] [address] 12/11/2022 10:13:00 12/12/2022 13:02:56 Pain of right heel 7193505913 537144 M79.671 Generalize d anxiety disorder 41607846 F41.1 Will continue treatmentE scitalopra m 20mg dailyKlono pin for severe anxiety symptomsre commend psychother apist visits-amy l with problems or thoughts of harming self Body mass index 30+ - obesity 598301040 Z68.39 BMI 38.4Health y body weight 105-425 [id number] Salas Velasquez MD [facility] [address], [place] [address] 03/09/2023 12:30:17 03/18/2023 11:17:40 Urinary symptoms 349430361 R39.9 Active or passive immunization 856755862 Z23 Dysuria 66116253 R30.0 self swab Depression screening 171 277063 Z13.31 PHQ2-9 negative Mental hea [facility] screening 607135589 Z13.39 ANDIE-7 negative [id number] Salas Velasquez MD [facility] [address], [place] [address] 04/21/2023 12:34:51 04/23/2023 14:28:39 Uncontrolled type 2 diabetes mellitus 774917716 E11.65 HA1C 9.6 worsewill continue Metformin 1000mg 1 po bidstop 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 bs readings before and after meals (2Hrs) keep log 06/13/2022 BUN 13creat 0.41eGFR 134 Generalize d anxiety disorder 39609513 F41.1 Will continue treatmentE scitalopra m 20mg dailyKlono pin for severe anxiety symptomsre commend psychother apist visits-amy l with problems or thoughts of harming self Mixed hyperlipidemia 267 411473 E78.2 07/06/2020 [id number] Trig 441 HDL 32 LDL 150 07/26/2021 [...] Atorvastat in 20mg daily and LSM Obesity 243543937 E66.9 BMI 38.8Health y body weight 105-135 Body mass index 30+ - obesity 731454963 Z68.39 BMI 38.8Health y body weight 105-135 Chronic dermatitis 71991 007 L30.9 Seen by derm 02/2016 given about same treatment she had received from this office. SHe wishes to continue treatment. 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 Allergy to fish 85664409 2 Z91.013 + allergen profile to fishGets rash Vitamin D deficiency 347 74268 E55.9 11/01/2021 Vitamin D 11.3 buy otc vitamin D3 1000 IU once daily Hyperpigme ntation of skin 34327774 L81.9 continue trilumause daily sunscreenr eferring to derm Venous varices 630543942 I83.92 weight losselevat e legssuppor t hoseibupro fen prn Depression screening 171 885860 Z13.31 PHQ2-9 negative Mental hea lth screening 924864191 Z13.39 ANDIE-7 negative Active or passive immunization 203192280 Z23 Cholelithi asis without obstruction 65844082 K80.20 wants GB removal Steatotic liver disease 844823204 K76.0 04/15/2023 CT abd/pelvis w/con shows fatty liver, Hepatomega ly, yessica inguinal lymphadeno harmeet, cholelithi asis and R enlarged ovary. Abnormal l iver function 19459071 K76.89 04/15/2023 CT abd/pelvis w/con shows fatty liver, Hepatomega ly, yessica inguinal lymphadeno harmeet, cholelithi asis and R enlarged ovary. Inguinal lymphadenopathy 139836599 R59.0 04/15/2023 CT abd/pelvis w/con shows fatty liver, Hepatomega ly, yessica inguinal lymphadeno harmeet, cholelithi asis and R enlarged ovary. Anxiety 23164013 F41.9 psychother chasidy henry relaxation exerciseRX for prn use Acute urin wang tract infection 213532445 N39.0 [id number] Salas Velasquez MD [facility] [address] [place] [address] 05/26/2023 10:56:48 05/29/2023 10:51:17 Urinary symptoms 501637325 R39.9 Dysuria 23862311 R30.0 Depression screening 171 844479 Z13.31 PHQ2-9 negative Mental hea [facility] screening 377523528 Z13.39 ANDIE-7 negative Postviral cough 84764786 4 R05.3 [id number] Salas Velasquez MD [facility] [address] [place] [address] 08/20/2023 11:47:59 08/24/2023 15:31:00 Mixed hyperlipidemia 452735798 E78.2 07/06/2020 [id number] Trig 441 HDL 32 LDL 150 07/26/2021 [...] LSM Body mass index 30+ - obesity 929573415 Z68.39 BMI 38.3Health y body weight 105-135 Uncontroll ed type 2 diabetes mellitus 407979173 E11.65 HA1C 9.6 worsewill continue Metformin 1000mg 1 po bidstop trulicityi ncrease mounjaro 5 mg once weekly to 7.5mg once weekly MounjaroMo nitor bs readings before and after meals (2Hrs) keep log 06/13/2022 BUN 13creat 0.41eGFR 134 04/21/2023 BUN 13Creat 0.55eGFR 124 Generalize d anxiety disorder 64393089 F41.1 Will continue treatmentE scitalopra m 20mg dailyKlono pin for severe anxiety symptomsre commend psychother apist visits-amy l with problems or thoughts of harming self Multiple environmental allergies 729733334 T78.49XD igE 645 plus multiple specific environmen sven allergensc ontinue otc antihistam ine Obesity 614127764 E66.9 BMI 38.8Health y body weight 105-135 Chronic dermatitis 65311 007 L30.9 Seen by derm 02/2016 given about same treatment she had received from this office. SHe wishes to continue treatment. Cystic acne 93130942 L70 .0 drink a lot of water with this medication and daily bananaderm will be starting accutane Excess morales niculus of abdomen 1658568434 101 E65 Has a rash itchysweat y red wet Allergy to fish 61619154 2 Z91.013 + allergen profile to fishGets rash Vitamin D deficiency 347 08875 E55.9 11/01/2021 Vitamin D 11.31 024 Vitamin D <4.0buy otc vitamin D3 1000 IU once daily Hyperpigme ntation of skin 32028647 L81.9 continue triluma-brush s from [place] daily sunscreenr eferred to dermderm to start accutane Venous varices 842559027 I83.92 weight losselevat e legssuppor t hoseibupro fen prn Steatotic liver disease 907962993 K76.0 04/15/2023 CT abd/pelvis w/con shows fatty liver, Hepatomega ly, yessica inguinal lymphadeno harmeet, cholelithi asis and R enlarged ovary. Depression screening 171 372440 Z13.31 PHQ2-9 negative Mental hea lt screening 716413087 Z13.39 ANDIE-7 negative Cholelithi asis without obstruction 58892875 K80.20 wants GB removalsee n surgeonwil l be having removal Abnormal l iver function 67569402 K76.89 04/15/2023 CT abd/pelvis w/con shows fatty liver, Hepatomega ly, yessica inguinal lymphadeno harmeet, cholelithi asis and R enlarged ovary. Anxiety 02844672 F41.9 psychother apist listauto relaxation exerciseRX for prn use Right uppe r quadrant pain 330309507 R10.11 [id number] Salas Velasquez MD [facility] [address] [place] [address] 09/01/2023 10:14:59 09/09/2023 15:32:26 Mixed hyperlipidemia 603512523 E78.2 07/06/2020 [id number] Trig 441 HDL 32 LDL 150 07/26/2021 [...] and LSM Right uppe r quadrant pain 617687808 R10.11 [id number] Salas Velasquez MD [facility] [address] [place] [address] 09/03/2023 12:13:17 10/05/2023 10:44:57 Obesity 832722537 E66.9 BMI 37.2Health y body weight 105-135 Body mass index 30+ - obesity 821080129 Z68.39 BMI 37.2Health y body weight 105-135 Pre-surger y evaluation 366279475 Z01.818 32 y/o HF presents for medical clearance for gall bladder surgery on 09/2023. The patient had multiple chronic medical problems: DM2, HPLD, ANDIE; BMI 30+, Hepatic steatosis. Her last HA1C on 08/20/2023 was 6.6. The patient has bee losing weight and exercising . She is not a smoker or uses illicit drugs. Active or passive immunization 554190056 Z23 Type 2 ana betes mellitus 53363415 E11.9 08/20/2023 HA1c 6.6 Mixed hyperlipidemia 267 723480 E78.2 07/06/2020 [id number] Trig 441 HDL 32 LDL 150 07/26/2021 [...] try Atorvastat in 20mg daily and LSM [id number] Salas Velasquez MD [facility] [address] [place] [address] 11/02/2023 14:48:03 11/04/2023 16:21:33 Body mass index 30+ - obesity 935822860 Z68.39 The patient was started on phentermin e tabs 08/20/2023 to aid with her appetite/w eight loss. Back in August the patient weighed in at 216 She is 205 today. She continues to monitor diet and exercising .BMI 36.4Health y body weight 105-135 Obesity 022337467 E66.9 The patient was started on phentermin e tabs 08/20/2023 to aid with her appetite/w eight loss. Back in August the patient weighed in at 216 She is 205 today. She continues to monitor diet and exercising .BMI 36.4Health y body weight 105-135 Chronic dermatitis 27665 007 L30.9 Seen by derm 02/2016 given about same treatment she had received from this office. SHe wishes to continue treatment. Mental hea [facility] screening 887256328 Z13.39 ANDIE-7 negative [id number] Salas Velasquez MD [facility] [address] [place] [address] 12/14/2023 12:34:48 12/17/2023 11:42:04 Body mass index 30+ - obesity 847576204 Z68.39 The patient was started on phentermin [...] I 35.1Health y body weight 105-135 Obesity 637199541 E66.9 BMI 35.1Health y body weight 105-247 [id number] Salas Velasquez MD [facility] [address] [place] [address] 02/05/2024 12:44:32 02/12/2024 15:37:33 Uncontrolled type 2 diabetes mellitus 294848101 E11.65 HA1C 6.0 per patient at last checkwill continue Metformin 1000mg 1 po bidincreas e mounjaro 7.5mg once weekly to 10mg once weekly MounjaroMo nitor bs readings before and after meals (2Hrs) keep log 06/13/2022 BUN 13creat 0.41eGFR 134 04/21/2023 BUN 13Creat 0.55eGFR 124 Mixed hyperlipidemia 267 582347 E78.2 07/06/2020 [id number] Trig 441 HDL 32 LDL 150 07/26/2021 [...] LSM Body mass index 30+ - obesity 297519246 Z68.39 BMI 34.7Health y body weight 105-135 Generalize d anxiety disorder 49442360 F41.1 Will continue treatmentE scitalopra m 20mg dailyKlono pin for severe anxiety symptomsre commend psychother chasidy liu-amy l with problems or thoughts of harming self Anxiety 80962448 F41.9 auto relaxation exerciseRX clonazepam at home for prn use Multiple environmental allergies 165858559 T78.49XD igE 645 plus multiple specific environmen sven allergensc ontinue otc antihistam ine Obesity 253565657 E66.9 BMI 34.7Health y body weight 105-135adv ised will provide RX phentermin e 3 months on 3 months off as long as some weight loss and no side effects Hyperpigme ntation of skin 35840840 L81.9 continue triluma-brush [place] from [place] daily sunscreenr eferred to derm Chronic dermatitis 88235 007 L30.9 Seen by derm 02/2016 given about same treatment she had received from this office. SHe wishes to continue treatment. Cystic acne 85912538 L70 .0 drink a lot of water with this medication and daily bananaderm will be starting accutane Excess morales niculus of abdomen 3095278694 101 E65 Has a rash itchysweat y red wet Allergy to fish 32297811 2 Z91.013 + allergen profile to fishGets rash Vitamin D deficiency 347 50767 E55.9 11/01/2021 Vitamin D 11./2 024 Vitamin D <4.0buy otc vitamin D3 1000 IU once daily Venous varices 237558503 I83.92 weight losselevat e legssuppor t hoseibupro fen prn Steatotic liver disease 427033799 K76.0 04/15/2023 CT abd/pelvis w/con shows fatty liver, Hepatomega ly, yessica inguinal lymphadeno harmeet, cholelithi asis and R enlarged ovary. Abnormal l iver function 49352995 K76.89 04/15/2023 CT abd/pelvis w/con shows fatty liver, Hepatomega ly, yessica inguinal lymphadeno harmeet, cholelithi asis and R enlarged ovary. [id number] Salas Velasquez MD [facility] [address] [place] [address] 01/13/2025 14:54:08 01/16/2025 13:27:51 Obesity 131510432 E66.9 BMI 39Healthy body weight 105-135 Body mass index 30+ - obesity 054116318 E66.9 13940648 BMI 39Healthy body weight 105-135 Weight man agement program 463261051 Z76.89 6259295615 ACZ81Ge 5' 3. Healthy weight range 105-135inc rease physical activitywe ight management heart healthy diet Depression screening 171 114357 Z13.31 2365562 PHQ2-9 negative [id number] Salas Velasquez MD [facility] [address] [place] [address] 02/03/2025 11:26:12 02/08/2025 09:26:16 Mixed hyperlipidemia 912988773 E78.2 07/06/2020 [id number] Trig 441 HDL 32 LDL 150 07/26/2021 [...] cream in your coffee. Body mass index 30+ - obesity 282966208 Z68.39 BMI 38.1Health y body weight 105-135 Obesity 406988092 E66.9 BMI 38.1Health y body weight 105-135 Hyperpigme ntation of skin 13789100 L81.9 continue triluma-brush s from [place] daily sunscreenr eferred to dermderm to start accutane Cystic acne 42491029 L70 .0 drink a lot of water with this medication and daily bananaderm will be starting accutane Excess morales niculus of abdomen 2891474680 101 E65 Has a rash itchysweat y red wet Allergy to fish 58561979 2 Z91.013 + allergen profile to fishGets rash Vitamin D deficiency 347 70074 E55.9 11/01/2021 Vitamin D 11. 024 Vitamin D <4.0buy otc vitamin D3 1000 IU once daily Venous varices 782526723 I83.92 weight losselevat e legssuppor t hoseibupro fen prn Steatotic liver disease 789541724 K76.0 04/15/2023 CT abd/pelvis w/con shows fatty liver, Hepatomega ly, yessica inguinal lymphadeno harmeet, cholelithi asis and R enlarged ovary. Abnormal l iver function 09208584 K76.89 04/15/2023 CT abd/pelvis w/con shows fatty liver, Hepatomega ly, yessica inguinal lymphadeno harmeet, cholelithi asis and R enlarged ovary. Depression screening 171 596395 Z13.31 PHQ2-9 negative Well contr olled type 2 diabetes mellitus 279109916 E11.9 694904 HA1C 6.2 betterHad last year used insulinwil l re-start mounjaroMo nitor bs readings before and after meals (2Hrs) keep log 06/13/2022 BUN 13creat 0.41eGFR 134 04/21/2023 BUN 13Creat 0.55eGFR 404 [id number] Salas Velasquez MD [facility] [address], [place] [address] 02/16/2025 10:09:04 02/17/2025 10:22:05 Mixed hyperlipidemia 093041220 E78.2 47204 07/06/2020 [id number] Trig 441 HDL 32 LDL 150 07/26/2021 [...] fat or skim), cream in your coffee. Metabolic dysfunction-associate d steatotic liver disease 4792711924 K76.0 1093707994 04/15/2023 CT abd/pelvis w/con shows fatty liver, Hepatomega ly, yessica inguinal lymphadeno harmeet, cholelithi asis and R enlarged ovary. Health Concerns Section Related Observation LastModified by Organization Detai ls LastModified Time None Recorded Concern Status LastModified by Organization Details LastModified Time None Recorded Advance Directives Directive N: Payers Insurance Date Sequence Insurance Name Policy Number Policy Goddard Covered Member ID Goddard Member ID Guarantor Name 05/18/2023 1 [employer] [facility] ON OR AFTER 03/20/2020 (MEDICAID REPLACEMENT - HMO) Yasmeen Ny [id number] Yasmeen Ny 02/16/2025 3 [facility] ON OR AFTER 10/18/20 (MEDICAID REPLACEMENT - HMO) Yasmeen Ny [id number] Yasmeen Ny 11/18/2019 SLIDING FEE SCHEDULE - DISCOUNT Yasmeen Ny 05/18/2023 1 [facility] [id number] Yasmeen Ny [id number] Yasmeen Ny 05/18/2023 1 [facility] [id number] Yasmeen Ny [id number] Yasmeen Ny 05/18/2023 1 [facility] ([facility] [id number] Yasmeen Ny [id number] Yasmeen Ny 05/12/2022 2 *SELF PAY* Br enda Ny 05/18/2023 1 [employer] - ALLIED BENEFITS - OPEN ACCESS [id number] Yasmeen Ny [id number] Yasmeen Ny 02/03/2025 2 [place] [employer] [place] [employer] Yasmeen Ny [id number] Yasmeen Ny 11/18/2019 SLIDING FEE SCHEDULE - DISCOUNT Yasmeen Ny 05/18/2023 1 [facility] (PPO) [id number] Yasmeen Ny [id number] Yasmeen Ny 02/16/2025 1 [employer] - ALLIED BENEFITS - OPEN ACCESS [id number] Yasmeen Ny [id number] Yasmeen Ny Notes Date Note Type Note Provider Name and Address Organization Details Recorded Time 12/14/19 24 text/htm l ObesityReported by PatientHPIFor context, patient reportsno inhaled steroidsandno oral steroids. For associated symptoms, patient reportsno depression,no chronic illness,no prader-willi syndrome, andno hypothyroidism. For co-morbidities, patient reportsno new co-morbidities since last visit. For lifestyle changes, patient reportsfew constitutional symptoms related to diagnosis,no changes in living situation,motivated to continue lifestyle changes,losing weight, andexercising more. For medication education, patient reportsunderstands potential side effects,understands administration, andunderstands role of diet as primary therapy.ROS as noted in the HPI The patient was started on phentermine tabs [...] not gotten elastogram done yet. Chuck Craig [facility] Attn: Accounting,[address] [facility], [place], [address], [facility] [place] 12/14/2023 13:05:16 02/05/20 24 text/htm l HyperlipidemiaReported by PatientHPIFor type of hyperlipidemia, patient reportscombined. For duration, patient reportschronicandintermittent. For control, patient reportsnot at goal. For compliance, patient reportsnoncompliant with dietbut reportscompliantandexercises. For risk factors, patient reportsdiabetes,obesity,low hdl level, andhigh lipoprotein(a) level. For current therapy, patient reportscurrently taking:(managing with lsm and statin). For complications, patient reportsno coronary artery disease,no peripheral artery disease, andno cardiovascular disease. For prior tests, ([id number] 441hdl 32ldl 62133/2cho 212trig 416hdl 32.6ldl 85128/3cho 183.4trig 311hdl 35.5ldl 95.601/ho 227trig 509hdl 37ldl 163). Diabetes F/UReported by PatientHPIFor associated symptoms, patient reportsweight gain (3 lbs),weight loss (___ lbs),increased thirst,increased appetite,blurred vision, andirregular menstruationbut reportsno dizziness,no sweats,no headaches,no confusion,no increased urination,no numbness of feet, andno calluses on feet. For review finger sticks, patient reportsfastinandpost breakfast: 160. For labs, patient reportslast a1c result: 9.6. For context, patient reportsnormal range of home blood sugars (in the low 100s),seeing eye doctor regularly,checking feet regularly,not missing doses of medications, andno side effects from medications. Sinusitis/AllergyReported by PatientHPIFor quality, patient reportsworsening,hoarseness,co ngested,colored phlegm, andthrobbing. For severity, patient reportsfrequent breathing through the mouthbut reportsmoderate. For context, patient reportsrecent upper respiratory infection,worse with seasonal allergen exposure,worse around pollen,worse around dust, andworse with environmental exposure. For risk factors, patient reportsincreased stress,family history of allergies, anddmbut reportsno current smoking or tobacco use,no history of smoking,no history of nasal trauma,no allergy to aspirin,no history of nasal polyps,no history of asthma, andno chemotherapy. For onset/timing, patient reportschronicandrecurring. For duration, patient reportsintermittentandhad 1 sinus infections treated with antibiotics in the last year. For aggravating factors, patient reportsworse during an upper respiratory infection (a cold)andworse when allergies are active. Anxiety/DepressionReported by PatientHPIFor severity, patient reportsdenies suicidal ideations,able to maintain relationships, anddoes not interfere with activities of daily living. For context, patient reportsno major life stressors. For associated symptoms, patient reportsdenies homicidal ideations,no significant weight gain,no significant weight loss,no visual/auditory hallucinations,no delusions,no shortness of breath,mood good,no anxiety,no crying spells,no panic,no isolation,sleeping well,appetite good,energy good,no apathy, andmaintaining functionality.ROS as noted in the HPI 33 y/o HF on the telephone for [...] clonazepam at home for prn anxiety. Chuck Craig [facility] Attn: Accounting,[address] [place], [address], [place] [facility] 02/05/2024 15:15:18 01/14/20 25 text/htm l ROS as noted in the HPI 34 y/o HF presents for prescription for weight management. The patient delivered a healthy baby girl on 09/27/2024. She has now stopped BF. She has a previous history of DM2, steatotic liver disease, obesity and hypertension. However, the patient was seen by the FIT team at [facility] 12/12/2024 at which time she was advised to stopped her medicines for chronic problems as her numbers were within the normal level. Her lipids were abnormal, and she was counselled on LSM for management with a repeat level in 3-4 months. The patient would like an Rx to assist with her weight loss efforts. The patient has used phentermine in the past which helps her with increased energy and appetite control. Chuck Craig, ADULT EDUCATOR- Attn: Accounting,[address] [facility], [place], [address], [place] - [facility] 01/13/2025 16:50:11 02/04/20 25 text/htm l HyperlipidemiaReported by PatientHPIFor type of hyperlipidemia, patient reportscombined. For duration, patient reportschronicandintermittent. For control, patient reportsnot at goal. For compliance, patient reportsnoncompliant with dietbut reportscompliantandexercises. For risk factors, patient reportsdiabetes,obesity, andlow hdl level. For complications, patient reportsno coronary artery disease,no peripheral artery disease, andno cardiovascular disease. For prior tests, ([id number] 441hdl 32ldl 82728/2cho 212trig 416hdl 32.6ldl 75932/3cho 183.4trig 311hdl 35.5ldl 95.605/4cho 175trig 199hdl 32ldl 108). For current therapy, (managing with lsm). Diabetes F/UReported by PatientHPIFor associated symptoms, patient reportsweight loss (4 lbs),headaches,increased thirst,increased appetite, andblurred visionbut reportsno dizziness,no sweats,no confusion,no increased urination,no numbness of feet, andno calluses on feet. For review finger sticks, patient reportsfastinandpost breakfast: 120. For labs, patient reportslast a1c result: 6.2. For context, patient reportsnormal range of home blood sugars (in the low 100s),seeing eye doctor regularly, andchecking feet regularly. Sinusitis/AllergyReported by PatientHPIFor associated symptoms, patient reportsnasal discharge from both nostrilsbut reportsno nasal discharge,no fever,no weight loss,no hemoptysis,no hematemesis,no difficulty breathing,no feeling of strangulation,no nausea or vomiting,no headache,no facial pain,no sinus pain,no sore throat,no thick phlegm in throat,not constantly clearing the throat,no nasal passage blockage,no ear fullness,no nasal itching,no eye itching,no pain behind the eyes, andno skin itching. For onset/timing, patient reportsresolved(off medications for now). For quality, patient reportsno pain,no itching,no hoarseness,no throbbing,minimal discomfort, andimproving. For duration, patient reportsresolved. For severity, patient reportsno pain,does not limit daily activities,no frequent breathing through the mouth,no nosebleeds (epistaxis), andno snoring. For context, patient reportsno recent upper respiratory infection,no recent sick contacts,not worse with seasonal allergen exposure,not worse around animals,not worse around pollen,not worse around dust,not worse around molds,not worse with environmental exposure,not worse when mowing grass,not worse with certain foods, andnot worse with odors. For risk factors, patient reportsno current smoking or tobacco use,no history of smoking,no increased stress,no family history of allergies,no history of nasal trauma,no allergy to aspirin,no history of nasal polyps,no history of asthma,no chemotherapy,no dm,no hiv, andno immunodeficiency. For aggravating factors, patient reportsnot worse with change in medication,not worse during an upper respiratory infection (a cold), andnot worse when allergies are active.ROS as noted in the HPI 34 y/o HF presents for re-initiation of DM2 management. The patient delivered a healthy baby girl on 09/27/2024. She has now stopped BF. She has been noticing increased hunger and thirst. Her HA1C is creeping up. She started exercising. Her allergies are controlled for the moment with no medications. LAURA Hancock Attn: Accounting,[address] [place], [address], [facility] - [facility] 02/03/2025 14:22:54 OBGyn Episode Ob Episode Information Episode Created Date Number of Fetuses Patient Bloodtype Patient rh Status Prepregnancy Weight lbs Domestic Partner Domestic Partner Phone Father Name [employer] Consultant Status 01/14/20 25 1 CLOSED Fetus Data First Name Last Name Admitted to NICU Weight (g) Sex Living Outcome Pediatric Complications Fetus ID Race Codes Race Delivery Type F Full Term [id number] Vaginal Rajeev Calculation Initial Rajeev Date Initial [...] Complications Tubal Sterilization Discharge Date Comments 5 Discharge Information Feeding Method Contraceptive Method Maternal HG B and HCT Levels Ob Episode Information Episode Created Date Number of Fetuses Patient Bloodtype Patient rh Status Prepregnancy Weight lbs Domestic Partner Domestic Partner Phone Father Name [employer] Consultant Status 06/06/19 21 1 CLOSED Fetus Data First Name Last Name Admitted to NICU Weight (g) Sex Living Outcome Pediatric Complications Fetus ID Race Codes Race Delivery Type M [id number] Vaginal Rajeev Calculation Initial Rajeev Date Initial [...]
--- NOTE | 2025-02-19 18:32 | ED_ITS ---
HPI - Abdominal Pain General Chief Complaint: Abdominal Pain <Vasyl Morris MD - Last Filed: 02/20/25 07:46> Stated Complaint: lower abd pain, +preg test <Vasyl Morris MD - Last Filed: 02/20/25 07:46> Time Seen by Provider: 02/19/25 18:30 <Vasyl Morris MD - Last Filed: 02/20/25 07:46> Source: patient <Vasyl Morris MD - Last Filed: 02/20/25 07:46> Mode of arrival: ambulatory <Vasyl Morris MD - Last Filed: 02/20/25 07:46> Limitations: no limitations <Vasyl Morris MD - Last Filed: 02/20/25 07:46> History of Present Illness HPI narrative: 34 YEARS OLD WHITE FEMALE DROVE HERSELF TO THE EMERGENCY ROOM COMPLAINING OF LOWER ABDOMINAL PAIN ACHE, STEADY, STARTED 2 WEEKS AGO, RADIATING TO LOWER BACK. DENIES AGGRAVATING OR RELIEVING FACTORS. ASSOCIATED WITH INTERMITTENT NAUSEA, DENIES FEVER, CHILLS, VOMITING, DIARRHEA, CONSTIPATION, VAGINAL BLEEDING OR DISCHARGE. PATIENT IS 2, PARA 2, 0, STATUS POST VAGINAL DELIVERY 4 MONTHS AGO, LAST MENSTURAL PERIOD WAS 2024. DR. APONTE IS OBGYN <Vasyl Morris MD - Last Filed: 02/20/25 07:46> Related Data Home Medications: Home Medications ?Medication ?Instructions ?Recorded ?Confirmed ?Last Taken ?Type insulin glargine 100 unit/mL (3 20 unit subcut .q 12 0 09/24/24 09/24/24 09/24/24 History mL) subcutaneous pen (Lantus Solostar U-100 Insulin) insulin lispro 100 unit/mL 22 unit subcut .COMPLEX 11/1109/24/24 09/24/24 History subcutaneous pen <Vasyl Morris MD - Last Filed: 02/20/25 07:46> Allergies/Adverse Reactions: Allergies Allergy/AdvReac Type Severity Reaction Status Date / Time lisinopril Allergy Swelling Verified 09/23/24 10:40 shellfish derived Allergy Rash Verified 09/23/24 10:40 <Vasyl Morris MD - Last Filed: 11/03/25 07:46> Review of Systems 2 Review of Systems: All systems reviewed & are unremarkable except as noted in HPI and below <Vasyl Morris MD - Last Filed: 02/20/25 07:46> PMFSH Family History Family History: Family History Father High cholesterol <Vasyl Morris MD - Last Filed: 02/20/25 07:46> Social History Social History: Social History Smoking status: Never smoker Alcohol intake: never Substance use: former Do You Feel Safe in your Home?: Yes Lack of Transportation: No Lack of Food: Never True Current Housing: I Have Housing Concerned About Future Housing: No Difficulty Paying Gas/Electric Bills: No Difficulty Paying for Meds: No Currently Unemployed: No Education: High School Diploma/GED Difficulty w/ Childcare or Family Care: No Gender identity (if verbalized by the patient): Female Spiritual care concerns: No <Vasyl Morris MD - Last Filed: 02/20/25 07:46> Exam 2 Narrative: GENERAL APPEARANCE: WELL-DEVELOPED, WELL-NOURISHED SKIN: NORMAL COLOR HEAD: NORMOCEPHALIC, NONTRAUMATIC CHEST AND RESPIRATORY: AIRWAY PATENT, NO RESPIRATORY DISTRESS, NO ACCESSORY MUSCLE USE HEART: REGULAR RATE/RHYTHM ABDOMEN: SOFT, MILD DIFFUSE TENDERNESS ACROSS LOWER ABDOMEN, NO GUARDING OR REBOUND,, NO ORGANOMEGALY, QUIET BOWEL SOUNDS MUSCULOSKELETAL: NORMAL RANGE OF MOTION, NONTENDER BACK NEUROLOGIC: ALERT AND ORIENTED ?3, ASSISTANT FOOD SERVICE DIRECTOR IS NORMAL TESTED, NO GROSS MOTOR DEFICIT <Vasyl Morris MD - Last Filed: 02/20/25 07:46> Course Course Emergency Course: Patient care signed over by previous provider pending ultrasound and discharged home. Patient's beta hCG came back at 283 consistent with but the ultrasound was showing no certain location of given the low beta hCG level. Likely early versus failed versus ectopic. Hemodynamically stable with normal vital signs. Unremarkable ovarian examination. She will have to follow up in 48 hours for repeat beta hCG and ultrasound with OBGYN. Given return precautions and safe for discharge home at this time. <Theo Patterson MD - Last Filed: 02/20/25 06:25> Vital Signs Vital signs: Vital Signs Temperature 36.4 C 02/19/25 16:27 Pulse Rate 95 02/19/25 16:27 Respiratory Rate 16 02/19/25 16:27 Blood Pressure 149/89 H 02/19/25 16:27 Pulse Oximetry 95 02/19/25 16:27 Oxygen Delivery Room Air 02/19/25 16:27 Temperature 36.4 C 02/19/25 16:27 Pulse Rate 87 02/19/25 23:06 Respiratory Rate 20 02/19/25 23:06 Blood Pressure 130/92 H 02/19/25 23:06 Pulse Oximetry 100 02/19/25 23:06 Oxygen Delivery Room Air 02/19/25 16:27 <Vasyl Morris MD - Last Filed: 02/20/25 07:46> Vital Signs Temperature 36.4 C 02/19/25 16:27 Pulse Rate 95 02/19/25 16:27 Respiratory Rate 16 02/19/25 16:27 Blood Pressure 149/89 H 02/19/25 16:27 Pulse Oximetry 95 02/19/25 16:27 Oxygen Delivery Room Air 02/19/25 16:27 Temperature 36.4 C 02/19/25 16:27 Pulse Rate 87 02/19/25 23:06 Respiratory Rate 20 02/19/25 23:06 Blood Pressure 130/92 H 02/19/25 23:06 Pulse Oximetry 100 02/19/25 23:06 Oxygen Delivery Room Air 02/19/25 16:27 <Theo Patterson MD - Last Filed: 02/20/25 06:25> MDM - Abdominal Pain MDM Narrative Medical decision making narrative: PATIENT PRESENTS WITH LOWER ABDOMINAL PAIN, POSITIVE 3 TEST AT HOME VITAL SIGNS ARE STABLE PHYSICAL EXAMINATION SHOWING SLIGHT TENDERNESS ACROSS LOWER ABDOMEN DIFFERENTIAL DIAGNOSIS INCLUDE LIGAMENT PAIN, CONSTIPATION, URINARY TRACT INFECTION, ECTOPIC BLOOD WORKUP TODAY INCLUDES CBC, CMP, LIPASE AND BETA HCG SHOWED PATIENT CARE TURNED OVER TO DR. Sparks AT SHIFT CHANGE, AWAITING LABS, IMAGING, DISPOSITION. PATIENT BEEN RESTING QUIETLY IN THE EMERGENCY ROOM WITHOUT ANY ISSUES OR PROBLEMS. <Vasyl Morris MD - Last Filed: 02/20/25 07:46> Differential Diagnosis Differential diagnosis: Likely other ( ABOVE) <Vasyl Morris MD - Last Filed: 02/20/25 07:46> Lab Data Result diagrams: 02/19/25 18:46 02/19/25 18:46 <Vasyl Morris MD - Last Filed: 02/20/25 07:46> Labs: Lab Results 02/19/25 02/19/25 Range/Units 18:46 18:48 WBC 11.0 H (4.5-10.0) K/mm3 RBC 4.51 (4.2-5.4) M/mm3 Hgb 12.7 (12.0-15.0) g/dL Hct 38.2 (37.0-47.0) % MCV 84.7 (80-100) fl MCH 28.2 (26-34) pg MCHC 33.2 (32-36) g/dl RDW 13.9 (11.5-14.5) % Plt Count 363 (150-375) k/mm3 MPV 10.2 (7.4-10.4) fl Immature Gran % (Auto) 0.3 (0-0.5) % Neut % (Auto) 57.1 (45.5-73.1) % Lymph % (Auto) 36.5 (18.3-44.2) % Mower % (Auto) 5.4 (2.6-8.5) % Eos % (Auto) 0.6 (0-4.4) % Baso % (Auto) 0.1 L (0.2-1.2) % Lymph # (Auto) 4.02 H (0.9-3.2) K/mm3 Mower # (Auto) 0.6 (0.1-0.6) K/mm3 Eos # (Auto) 0.1 (0-0.3) K/mm3 Baso # (Auto) 0.0 (0.0-0.1) K/mm3 Abs Immat Gran (auto) 0.03 (0.00-0.031) K/mm3 Absolute Neuts (auto) 6.3 (1.3-6.7) K/mm3 Absolute Nucleated RBC 0.000 (0.0-0.012) K/mm3 Nucleated RBC % 0.0 (0.0-0.2) % Sodium 138 (137-145) mmol/L Potassium 3.7 (3.4-5.0) mmol/L Chloride 105 (98-107) mmol/L Carbon Dioxide 25 (22-30) mmol/L Anion Gap 8 (4-12) mmol/L BUN 14 D (7-17) mg/dL Creatinine 0.60 L (0.7-1.0) mg/dL Estim Creat Clear Calc Not Reportable Estimated GFR > 60 (59 - ) Glucose 116 H (65-110) mg/dL Calcium 9.1 (8.4-10.2) mg/dL Total Bilirubin 0.3 (0.2-1.3) mg/dL AST 24 (14-36) U/L ALT 20 (6-35) U/L Alkaline Phosphatase 84 (38-126) U/L Total Protein 7.9 (6.3-8.2) g/dL Albumin 4.4 (3.5-5.1) g/dL Lipase 95 (23-300) U/L Beta HCG, Quant 283.27 mIU/ML Urine Color Yellow (Yellow) Urine Appearance Clear (Clear) Urine pH 5.0 (5.0-9.0) Ur Specific [place] 1.028 (1.001-1.035) Urine Protein Negative (Negative) mg/dL Urine Glucose (UA) Negative (Negative) mg/dL Urine Ketones 1+ H (Negative) mg/dL Ur Blood (Man) Negative (Negative) Urine Nitrate Negative (Negative) Urine Bilirubin Negative (Negative) Urine Urobilinogen 0.2 (<2.0) mg/dL Leukocyte Esterase Rfl Negative (Negative) MIA/UL POC Urine HCG, Qual Positive (Negative) <Vasyl Morris MD - Last Filed: 02/20/25 07:46> Lab Results 02/19/25 02/19/25 Range/Units 18:46 18:48 WBC 11.0 H (4.5-10.0) K/mm3 RBC 4.51 (4.2-5.4) M/mm3 Hgb 12.7 (12.0-15.0) g/dL Hct 38.2 (37.0-47.0) % MCV 84.7 (80-100) fl MCH 28.2 (26-34) pg MCHC 33.2 (32-36) g/dl RDW 13.9 (11.5-14.5) % Plt Count 363 (150-375) k/mm3 MPV 10.2 (7.4-10.4) fl Immature Gran % (Auto) 0.3 (0-0.5) % Neut % (Auto) 57.1 (45.5-73.1) % Lymph % (Auto) 36.5 (18.3-44.2) % Mower % (Auto) 5.4 (2.6-8.5) % Eos % (Auto) 0.6 (0-4.4) % Baso % (Auto) 0.1 L (0.2-1.2) % Lymph # (Auto) 4.02 H (0.9-3.2) K/mm3 Mower # (Auto) 0.6 (0.1-0.6) K/mm3 Eos # (Auto) 0.1 (0-0.3) K/mm3 Baso # (Auto) 0.0 (0.0-0.1) K/mm3 Abs Immat Gran (auto) 0.03 (0.00-0.031) K/mm3 Absolute Neuts (auto) 6.3 (1.3-6.7) K/mm3 Absolute Nucleated RBC 0.000 (0.0-0.012) K/mm3 Nucleated RBC % 0.0 (0.0-0.2) % Sodium 138 (137-145) mmol/L Potassium 3.7 (3.4-5.0) mmol/L Chloride 105 (98-107) mmol/L Carbon Dioxide 25 (22-30) mmol/L Anion Gap 8 (4-12) mmol/L BUN 14 D (7-17) mg/dL Creatinine 0.60 L (0.7-1.0) mg/dL Estim Creat Clear Calc Not Reportable Estimated GFR > 60 (59 - ) Glucose 116 H (65-110) mg/dL Calcium 9.1 (8.4-10.2) mg/dL Total Bilirubin 0.3 (0.2-1.3) mg/dL AST 24 (14-36) U/L ALT 20 (6-35) U/L Alkaline Phosphatase 84 (38-126) U/L Total Protein 7.9 (6.3-8.2) g/dL Albumin 4.4 (3.5-5.1) g/dL Lipase 95 (23-300) U/L Beta HCG, Quant 283.27 mIU/ML Urine Color Yellow (Yellow) Urine Appearance Clear (Clear) Urine pH 5.0 (5.0-9.0) Ur Specific [place] 1.028 (1.001-1.035) Urine Protein Negative (Negative) mg/dL Urine Glucose (UA) Negative (Negative) mg/dL Urine Ketones 1+ H (Negative) mg/dL Ur Blood (Man) Negative (Negative) Urine Nitrate Negative (Negative) Urine Bilirubin Negative (Negative) Urine Urobilinogen 0.2 (<2.0) mg/dL Leukocyte Esterase Rfl Negative (Negative) MIA/UL POC Urine HCG, Qual Positive (Negative) <Theo Patterson MD - Last Filed: 02/20/25 06:25> Discharge Plan Discharge Clinical Impression: of unknown anatomic location <Vasyl Morris MD - Last Filed: 02/20/25 07:46> Patient Disposition: Home <Vasyl Morris MD - Last Filed: 02/20/25 07:46> Condition: Stable <Vasyl Morris MD - Last Filed: 02/20/25 07:46> Instructions: Antibiotic Form, (ED) <Vasyl Morris MD - Last Filed: 02/20/25 07:46> Additional Instructions: You tested positive for today with a beta hCG level of 283 which is too low to visualize on ultrasound. You need to have a 48 hour follow-up for repeat beta hCG trending and repeat ultrasound with your OBGYN. Contact them for outpatient follow-up. Return to the ER with any emergencies, increasing pain, losing consciousness, rapid heart rate, dehydration, profound nausea vomiting or any other issues. <Vasyl Morris MD - Last Filed: 02/20/25 07:46> Patient Language: Lao <Vasyl Morris MD - Last Filed: 02/20/25 07:46> Prescriptions: No Action insulin lispro 100 unit/mL insulin pen 22 unit SUBCUT .COMPLEX Rx Instructions: 22 units subcutaneously with meals; insulin glargine [Lantus Solostar U-100 Insulin] 100 unit/mL (3 mL) insulin pen 20 unit SUBCUT .q 12 <Vasyl Morris MD - Last Filed: 02/20/25 07:46> Follow-up/Referrals: Omar,NEGRITO Woods [Non-Staff] Dante Aponte MD [Primary Care Provider, ULTIMATE HOOPS SCOREBOARD OPERATOR] - 2 Days Referral Note: ER follow-up for ectopic rule out <Vasyl Morris MD - Last Filed: 02/20/25 07:46> Time of Disposition: 22:44 <Vasyl Morris MD - Last Filed: 02/20/25 07:46> 22:44 <Theo Patterson MD - Last Filed: 02/20/25 06:25>
[2025-02-19] MEDS: SODIUM CHLORIDE 0.9% IV 1,000 ML 999 ML IV CONT (18:49)
[2025-02-19 18:50] LABS: BEDSIDEPREGUCG Positive (Negative)
--- OUTSIDE RECORDS SUMMARY | 2025-02-19 18:52 | XMS_ITS | Clinical Summary ---
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 Testing performed by: [address] [address] Blood 09/24/2023 8:42 AM CDT 09/24/2023 9:06 AM CDT Sajan Pollard MD LAB BLOOD ORDERABL ES Final Result Performing Organization Address City/[facility]/ZIP Co de Phone Number [place] [id number] [facility] [employer] [place], [place] [id number] * (ABNORMAL) Hemoglobin A1c (09/24/2023 8:42 AM CDT) Hgb A1C 6.8(H) 4.0 - 5.6 % Comment:Testing performed by : [address] [address] Estimated Average Glucose 148 mg/dL KELLEN Comment: The ADA recommends reporting an estimated Average Glucose (eAG) with all Hemoglobin A1c results using the equation derived from a study of 507 normal and diabetic adults. Minority populations were underrepresented and children were not included. (Diabetes Care 31:1542-4812, 2008). The eAG is not equivalent to a fasting glucose. Testing performed by: [address] [address] Blood 09/24/2023 8:42 AM CDT 09/24/2023 9:06 AM CDT Narrative KELLEN - 09/24/2023 9:40 AM CDT PRE SURGERY TESTING ONLY Sajan Pollard MD LAB BLOOD ORDERABL ES Final Result [facility] [address] [facility] [place] [address] from Last 3 Months or Most Recently Relevant to Health Maintenance Insurance [facility] CHOICE PLUS [employer] OPEN ACCESS [employer]PA [employer] OPEN ACCESS Care Teams Topper Press Operator Relationship Specialty Start Date End Date Chuck Nelson NP PCP - General 01/26/19 Christopher Nelson MD [address] [place] [id number] Consulting Physician General Surgery 09/30/23
--- OUTSIDE RECORDS SUMMARY | 2025-02-19 18:52 | XMS_ITS | Clinical Summary ---
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
--- OUTSIDE RECORDS SUMMARY | 2025-02-19 18:52 | XMS_ITS | Encounter Summary ---
Author Organization [facility] Address [address] [facility] [place] [address] Care Team Providers Care Science Editor Name Role Phone Chuck Nelson GREEN WARE CASTER-COMMISS[employer] FOR [employer] BL[employer] DIRECTOR Primary Care Pro vider Reason for Visit * Reason Onset Date Comments MEDICATION REFILL 03/08/2024 Encounter Details Date Type Department Care Team (Late st Contact Info) Description 03/08/2024 Refill [facility] EVALUATION [facility] [address] [facility] [address] [facility] [place] [address] Eduar Hernandez MD [address] [facility] [address] [place] [address] MEDICATION REFILL Social History Tobacco Use Types [...] and heating? Not hard at all 02/24/2024 [facility] [place] [facility] Occupat ional Health - Occupational Stress [...] things needed for daily living? No 02/24/2024 [place] Depression Scale Answer Date Recorded [place] Depression Scale Total 1 03/01/2024 The thought [...] any time in the past 12 m [facility], were you homeless or living in a residential (including now)? Yes 02/24/2024 Comments Yes Sex [...] (HCC) documented in this encounter Care Teams Science Editor Relationship Specialty Start Date End Date Chuck Nelson APRN-EMILY [facility] [place] [phone] PCP - General Nurse Practitioner 08/25/22 documented as of this encounter
--- OUTSIDE RECORDS SUMMARY | 2025-02-19 18:52 | XMS_ITS | Clinical Summary ---
Author Organization [facility] Address [address] [place] [address] Care Team Providers Care Nc Manager Name Role Phone Unavailable Primary Care Provider [...]
--- OUTSIDE RECORDS SUMMARY | 2025-02-19 18:52 | XMS_ITS | Encounter Summary ---
Author Organization [facility] Address [address] [facility] [place] [address] Care Team Providers Care Division Leader Name Role Phone Chuck Nelson LEASE OUT WORKER-MEDICAL CONCIERGE Primary Care Pro vider Reason for Visit * Reason Comments Refill Request Encounter Details Date Type Department Care Team (Late st Contact Info) Description 09/06/2024 Refill [facility] EV[facility] [address] [facility] [place] [address] Luana Plummer MD [address] [facility] [address] [place] [address] Refill Request Social History Tobacco [...] and heating? Not hard at all 08/23/2024 [place] [facility] Occupat ional Health - Occupational Stress [...] things needed for daily living? No 08/23/2024 [place] Depression Scale Answer Date Recorded [place] Depression Scale Total 1 03/01/2024 The thought [...] any time in the past 12 m [facility], were you homeless or living in a fdc (including now)? No 08/23/2024 Comments Yes Sex [...] (HCC) documented in this encounter Care Teams Division Leader Relationship Specialty Start Date End Date Chuck Nelson APRN-EMILY [address] [place] [phone] PCP - General Nurse Practitioner 08/25/22 documented as of this encounter
--- OUTSIDE RECORDS SUMMARY | 2025-02-19 18:52 | XMS_ITS | Encounter Summary ---
Author Organization [facility] Address [address] [facility] [address] Care Team Providers Care Welding Machine Operator Friction Name Role Phone Chuck Nelson UNPAID INTERN-SCUBA DIVING INSTRUCTOR Primary Care Pro vider Reason for Visit * Reason Onset Date Comments MEDICATION REFILL 05/23/2024 Encounter Details Date Type Department Care Team (Late st Contact Info) Description 05/23/2024 Refill [facility] UN[facility] [address] [facility] [place] [address] Luana Plummer MD [address] [facility] [address] [place] [phone] MEDICATION REFILL Social History Tobacco Use Types [...] and heating? Not hard at all 02/24/2024 [facility] [place] of Occupat ional Health - Occupational Stress [...] things needed for daily living? No 02/24/2024 [place] Depression Scale Answer Date Recorded [place] Depression Scale Total 1 03/01/2024 The thought [...] time in the past 12 m [facility], were you homeless or living in a group home (including now)? Yes 02/24/2024 Comments Yes Sex [...] (HCC) documented in this encounter Care Teams Welding Machine Operator Friction Relationship Specialty Start Date End Date Chuck Nelson APRN-EMILY [address] [place] [phone] PCP - General Nurse Practitioner 08/25/22 documented as of this encounter
[2025-02-19 18:56] LABS: Hematocrit 38.2 % (37.0-47.0); Hemoglobin 12.7 g/dL (12.0-15.0); Immature Granulocyte Percent A 0.3 % (0-0.5); Lymphocytes Absolute Auto 4.02 K/mm3 (0.9-3.2); Mean Corpuscular HGB Conc 33.2 g/dl (32-36); Mean Corpuscular Hemoglobin 28.2 pg (26-34); Mean Corpuscular Volume 84.7 fl (80-100); Nucleated Red Blood Cells Absolute Auto 0.000 K/mm3 (0.0-0.012); Nucleated Red Blood Cells Perc 0.0 % (0.0-0.2); Platelet Count Result 363 k/mm3 (150-375); Red Blood Count 4.51 M/mm3 (4.2-5.4); White Blood Count 11.0 K/mm3 (4.5-10.0)
[2025-02-19 18:59] LABS: Add Urine Microscopic? NO; Appearance Urine Clear (Clear); Glucose Urine UA Negative (Negative); Leukocyte Esterase Ur Negative LEU/UL (Negative); Nitrate Urine Negative (Negative); Specific Grav Ur 1.028 (1.001-1.035)
[2025-02-19 19:08] LABS: Alanine Aminotransferase 20 U/L (6-35); Albumin Level 4.4 g/dL (3.5-5.1); Alkaline Phosphatase 84 U/L (38-126); Anion Gap 8 mmol/L (4-12); Aspartate Amino Transferase 24 U/L (14-36); Bilirubin,Total 0.3 mg/dL (0.2-1.3); Blood Urea Nitrogen 14 mg/dL (7-17); Calcium 9.1 mg/dL (8.4-10.2); Carbon Dioxide 25 mmol/L (22-30); Chloride 105 mmol/L (98-107); Estimated Glomerular Filt Rate > 60; Glucose 116 mg/dL (65-110); Lipase 95 U/L (23-300); Potassium 3.7 mmol/L (3.4-5.0); Sodium 138 mmol/L (137-145); Total Protein 7.9 g/dL (6.3-8.2)
[2025-02-19 19:48] LABS: Beta HCG Quantitative 283.27 mIU/ML
[2025-02-19 21:12] VITALS: BP 128/66; PULSE 77; RESP 18; O2SAT 99
[2025-02-19 23:06] VITALS: BP 130/92; PULSE 87; RESP 20; O2SAT 100
== END 2025-02-19 23:02 | disposition home or self-care (01) ==
PROVIDERS: Emergency Provider Emergency Medicine; PCP Obstetrics & Gynecology
DX: O26.891 Other specified pregnancy related conditions, first trimester (principal); R10.30 Lower abdominal pain, unspecified; Z3A.01 Less than 8 weeks gestation of pregnancy
CPT/HCPCS: 36415; 76801; 76817; 80053; 81003; 81025; 83690; 84702; 85025; 96360; 99284; J7030